=== PATIENT | female | born 1950 | race Caucasian/White ===

== ENCOUNTER 2020-03-15 07:47 | Outpatient (REF) | payer MEDICARE, SELFPAY ==
--- NOTE | 2020-03-15 08:00 | MR_ITS ---
EXAMINATION: MR BRAIN WITHOUT CONTRAST MR CERVICAL SPINE WITHOUT CONTRAST CLINICAL INFORMATION: Facial numbness. Numbness in arms and legs. COMPARISON: Head CT from 02/15/2019. CT cervical spine from 10/03/2015. TECHNIQUE: MRI of the brain and cervical spine was obtained using routine sequences without contrast. FINDINGS: BRAIN: No diffusion abnormalities are identified to suggest an acute or subacute infarct. The ventricles are normal in size. No mass effect or midline shift is seen. Moderate generalized parenchymal volume loss evident. No extra-axial fluid collections are seen. The brainstem and cerebellum are relatively normal. The gradient refocused acquisition is normal. The craniovertebral junction, marrow signal, and midline structures are normal. The major intracranial flow voids at the level of the [place] are preserved. The dural venous sinus flow voids are maintained. The mastoid air cells and paranasal sinuses are well aerated. CERVICAL SPINE: VERTEBRAL BODIES AND PARASPINAL SOFT TISSUES: The marrow signal is within normal limits. There is reduced intradiscal signal at multiple levels due to spondylosis. A rightward curvature of the cervical spine is evident. The patient has had previous multilevel decompressive laminectomies at C3, C4, C5, and C6. 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 T2 hypointense scar tissue present in the operative beds posteriorly. The lung apices are clear. CERVICOMEDULLARY JUNCTION AND VISUALIZED POSTERIOR FOSSA: The craniovertebral junction appears normal. There is mild T2 hyperintense signal change within the cord at the T1-T2 level due to severity of central canal stenosis and cord distortion. No syrinx visible. At the C1-C2 level, there are periarticular synovial cysts in the predental space and retrodental space with surrounding T2 hypointense signal changes, presumably due to chronic ligamentous and degenerative joint disease. SPINAL LEVELS: C2-C3: Left-sided hypertrophic facet arthropathy and mild posterior disc bulge with endplate spurring. No central canal stenosis. Mild left foraminal narrowing. C3-C4: Broad-based disc-osteophyte complex and a shallow right paracentral disc protrusion visible with ventral cord deformity. No central canal stenosis. Decompressive laminectomy. Severe bilateral foraminal narrowing. C4-C5: Decompressive laminectomy with exuberant left-sided facet arthropathy and posterior endplate spurring in conjunction with mild ossification of the posterior longitudinal ligament. [id number] bilateral foraminal narrowing. C5-C6: Ossification of the posterior longitudinal ligament to the left of midline with a decompressive laminectomy. Moderate foraminal encroachment, worse on the left side. C6-C7: Significant ossification of the posterior longitudinal ligament in the midline impressing upon the ventral cord with hypertrophic facet arthropathy and moderate central canal stenosis. Bilateral foraminal encroachment also evident. Mild ventral cord deformity noted. C7-T1: Small central disc protrusion and ossification of the posterior longitudinal ligament with mild central canal stenosis and mild ventral cord deformity. No significant foraminal narrowing. T1-T2: Bulky endplate spurring and ossification of the posterior longitudinal ligament, more so in the right greater than left subarticular regions, also demonstrated on prior imaging with hypertrophic facet arthropathy resulting in severe central canal stenosis and moderate cord deformity. Mild intramedullary signal change may be due to edema and/or myelomalacia. Moderate bilateral foraminal narrowing. MR/MR cervical spine wo con IMPRESSION: BRAIN: No acute intracranial process. Moderate generalized parenchymal volume loss. 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 Moderate central canal stenosis due to degenerative disc disease, facet arthropathy and ossification of the posterior longitudinal ligament at the C6-C7 level. Milder central canal stenosis with similar findings and a small central disc protrusion at C7-T1. Bulky endplate spurring and ossification of the posterior longitudinal ligament at T1-T2 with facet spurring contributing to severe central canal stenosis and moderate cord deformity. Intramedullary signal change may be due to edema and/or myelomalacia. Findings are visible on prior CT imaging from 09/2015 as well.
== END 2020-03-15 07:48 | disposition home or self-care (01) ==
LOC: HO.MRI 07:47
PROVIDERS: PCP Internal Medicine; Visit Provider Psychiatry & Neurology Neurology
DX: R20.0 Anesthesia of skin (principal)
CPT/HCPCS: 70551; 72141

== ENCOUNTER 2020-04-09 02:04 | Emergency (ER) | payer MEDICARE, SELFPAY ==
[2020-04-09 02:09] VITALS: BP 213/87; PULSE 59; RESP 16; TEMP 36.1; O2SAT 100; BMI 38.6
[2020-04-09 02:34] VITALS: BP 181/65; PULSE 61; RESP 18; O2SAT 95
--- NOTE | 2020-04-09 02:43 | ED_ITS ---
History of Present Illness General Chief Complaint: Epistaxis Stated Complaint: Nose Bleed Time Seen by Provider: 04/09/20 02:42 Source: patient Mode of arrival: ambulatory Limitations: no limitations History of Present Illness HPI Narrative: This is a 69-year-old female who presents with acute onset of left naris epistaxis and denies any difficulties with airway maintenance or with swallowing. She states that this is happened before and she is currently on Xarelto for atrial fibrillation and has had prior cauterization on the left side. Patient states that the bleeding has begun to subside and that it started when she was blowing her nose. Otherwise, patient denies any pain, visual disturbance, fevers, chills. Related Data Home Medications Medication Instructions Recorded Confirmed estradiol 10 mcg vaginal tablet 0 mcg VAGINAL 04/04/20 04/04/20 ferrous sulfate 325 mg (65 mg 325 mg PO BID 04/04/20 04/04/20 iron) tablet gabapentin 300 mg capsule 300 mg PO QID 04/04/20 04/04/20 metformin 1,000 mg tablet 0 mg PO 04/04/20 04/04/20 nystatin 100,000 unit/gram topical 1 applic TOPICAL 04/04/20 04/04/20 ointment oxybutynin chloride 15 mg 15 mg PO DAILY 04/04/20 04/04/20 tablet,extended release 24 hr rivaroxaban 20 mg tablet 20 mg PO DAILY 04/04/20 04/04/20 rosuvastatin 40 mg tablet 40 mg PO DAILY 04/04/20 04/04/20 tamsulosin 0.4 mg capsule 0.4 mg PO DAILY 04/04/20 04/04/20 trazodone 50 mg tablet 50 mg PO BEDTIME 04/04/20 04/04/20 Previous Rx's Medication Instructions Recorded dulaglutide 0.75 mg/0.5 mL 0.75 mg SUBCUT QWEEK 30 Days #2.5 02/17/20 subcutaneous pen injector ml furosemide 40 mg tablet 40 mg PO BID 90 Days #180 tab 03/22/20 losartan 50 mg tablet 50 mg PO DAILY 90 Days #90 tab 03/27/20 oxycodone 5 mg tablet 5 mg PO BID PRN #14 tab 03/30/20 omeprazole 40 mg capsule,delayed 40 mg PO DAILY #90 cap 04/07/20 release Allergies Allergy/AdvReac Type Severity Reaction Status Date / Time sulfamethoxazole Allergy Intermediate RASH Verified 04/04/20 11:05 trimethoprim Allergy Intermediate RASH Verified 04/04/20 11:05 cefdinir Allergy Mild hives Verified 04/04/20 11:05 melatonin Allergy Mild inadequate Verified 04/04/20 11:05 response morphine [Morphine] Allergy Mild ITCHING, Verified 04/04/20 11:05 hives Sulfa (Sulfonamide Allergy Mild hives, Verified 04/04/20 11:05 Antibiotics) itching cheese [CHEESE] AdvReac Intermediate NAUSEA & Verified 04/04/20 11:05 VOMITING duloxetine AdvReac Intermediate altered Verified 04/04/20 11:05 behavior betina AdvReac Mild RUNNY NOSE Verified 04/04/20 11:05 mustard AdvReac Mild RUNNY NOSE Verified 04/04/20 11:05 potato [POTATO] AdvReac Mild ITCHY NOSE Verified 04/04/20 11:05 soybean AdvReac Mild RUNNY NOSE Verified 04/04/20 11:05 Review of Systems Review of Systems: Pertinent positives and negatives as stated in HPI 10 point review of systems is otherwise negative. [facility] Past Medical History Source: nursing notes reviewed Medical History Atrial fibrillation Diabetes mellitus Essential hypertension Iron deficiency anemia Lumbar degenerative disc disease Pure hypercholesterolemia Urge urinary incontinence Surgical History History of partial hysterectomy Hx of cardiac cath Hx of cervical spine surgery Family History Family History Father Rectal cancer Hypertension Arthritis of knee CVD (cardiovascular disease) Mother Hypertension CVD (cardiovascular disease) Myocardial infarction Diabetes Social History Social History Alcohol intake: never Smoking Status: Never smoker Use of substances other than those prescribed or required for medical reasons: No Advance Directives: No Advance Directives Information Provided: No Physical Exam Vital Signs: Vital Signs: Last Vital Signs Temp 97 F 04/09/20 02:09 Pulse 61 04/09/20 02:34 Resp 18 04/09/20 02:34 BP 181/65 H 04/09/20 02:34 Pulse Ox 95 04/09/20 02:34 Body Mass Index 38.6 VITAL SIGNS: Reviewed. GENERAL: Well developed, well nourished, in no acute distress. HEAD: Normocephalic/atraumatic, EYES: PERRLA, EOMI intact without pain, no nystagmus/pallor/icterus noted EARS: Ext canals without abnormality, TMs non-bulging and non-erythematous NOSE: Left [place] with stigmata of bleeding, but appears to be hemostatic at present. OROPHARYNX: no oral lesions noted, posterior pharynx clear and non-erythematous without noted tonsillar enlargement/erythema/exudates NECK: Supple, no adenopathy LUNGS: Normal breath sounds. No adventitious sounds or accessory muscle use. SpO2<95> CARDIOVASCULAR: Regular rate and rhythm without noted murmurs, no JVD or lower extremity edema. ABDOMEN: Soft, non-tender, non-distended with bowel sounds. No rigidity. No guarding. No palpable masses or hernias noted MUSCULOSKELETAL: No tenderness, deformities, or effusions noted on gross inspection. EXTREMITIES: No cyanosis, clubbing or edema. SKIN: Inspection of the skin reveals no rashes, ulcerations, jaundice, pallor, or petechiae. NEUROLOGIC: Alert and oriented x 4. Strength and sensation to light touch were grossly intact x 4. Course Course Course Narrative: This is a 69-year-old female with history and clinical presentation consistent with epistaxis secondary to anticoagulation and decrease in environmental humidity as well as increased pressure while blowing nose. Left naris currently hemostatic but will follow with 1 treatment with Afrin and evaluate patient for 20 minutes. If there is no further bleeding patient will be discharged with instructions to follow-up with her primary care provider on Friday morning as well as utilizing intranasal saline 3 to 4 times a day and avoidance of any nose blowing or manipulation. Discharge Plan Discharge Clinical Impression: Epistaxis Patient Disposition: Home, Self-Care Instructions: Nosebleed (ED) Additional Instructions: 1. please continue with all home medications as prescribed. 2. Please purchase [id number] saline nasal spray and utilize 3-4 times daily. May also use limited amount of Vaseline and apply with the tip of the pinky finger to additionally provide mucosal moisture. 3. recommend using a home humidifier for increased humidification at home. The patient and/or family acknowledge understanding of results (as applicable), diagnosis, treatment plan, need for follow up, and symptoms that should prompt a return to the emergency room. Prescriptions: No Action Trulicity 0.75 mg/0.5 mL pen injector 0.75 mg subcut QWEEK 30 Days Qty: 2.5 RF: 6 furosemide 40 mg tablet 40 mg PO BID 90 Days Qty: 180 RF: 1 losartan 50 mg tablet 50 mg PO DAILY 90 Days Qty: 90 RF: 3 oxycodone 5 mg tablet 5 mg PO BID PRN (Reason: pain) Qty: 14 RF: 0 omeprazole 40 mg capsule,delayed release(DR/EC) 40 mg PO DAILY Qty: 90 RF: 1 nystatin 100,000 unit/gram ointment 1 applic topical RF: 0 rosuvastatin 40 mg tablet 40 mg PO DAILY RF: 0 estradiol 10 mcg tablet 0 mcg vaginal RF: 0 ferrous sulfate 325 mg (65 mg iron) tablet 325 mg PO BID RF: 0 gabapentin 300 mg capsule 300 mg PO QID RF: 0 metformin 1,000 mg tablet 0 mg PO RF: 0 tamsulosin 0.4 mg capsule 0.4 mg PO DAILY RF: 0 oxybutynin chloride 15 mg tablet extended release 24hr 15 mg PO DAILY RF: 0 trazodone 50 mg tablet 50 mg PO BEDTIME RF: 0 Xarelto 20 mg tablet 20 mg PO DAILY RF: 0 Referrals: Marla Henderson MD [Primary Care Provider] - 2 days ( Re-evaluation after episode of epistaxis in the left nare)
[2020-04-09] MEDS: Oxymetazoline HCl 0.05 % Nasal 15 ML SPRAY 1 SPRAY NOSTRIL-L (02:51)
--- NOTE | 2020-04-09 03:16 | PC.NURSE ---
pt ambulated with steady gait to bathroom.
== END 2020-04-09 03:39 | disposition home or self-care (01) ==
PROVIDERS: Emergency Provider Student in an Organized Health Care Education/Training Program; PCP Internal Medicine
DX: R04.0 Epistaxis (principal); Z79.899 Other long term (current) drug therapy; Z79.01 Long term (current) use of anticoagulants
CPT/HCPCS: 99284

== ENCOUNTER 2020-04-11 10:26 | Outpatient (REF) | payer MEDICARE, SELFPAY ==
[2020-04-11 12:37] LABS: Thyroid Stimulating Hormone 1.66 uIU/mL (0.32-4.0)
[2020-04-12 08:56] LABS: Syphilis Screen Nonreactive (Nonreactive)
[2020-04-14 06:12] LABS: IgA 87 mg/dL (70-320); IgG 719 mg/dL (600-1540); IgM 44 mg/dL (50-300)
[2020-04-15 21:08] LABS: Acetylcholine Receptor Binding <0.30 nmol/L
== END 2020-04-11 10:27 | disposition home or self-care (01) ==
LOC: HO.LAB 10:26
PROVIDERS: PCP Internal Medicine; Visit Provider Psychiatry & Neurology Neurology
DX: R20.0 Anesthesia of skin (principal); R53.1 Weakness
CPT/HCPCS: 36415; 82550; 82784; 83519; 84443; 86334; 86780

== ENCOUNTER 2020-04-26 11:12 | Outpatient (REF) | payer MEDICARE, SELFPAY ==
--- NOTE | 2020-04-26 | US_ITS ---
EXAMINATION: US EXTRACRANIAL CAROTID DUPLEX, BILATERAL CLINICAL INFORMATION: CVA, numbness. COMPARISON: None. TECHNIQUE: Real-time ultrasound and Doppler techniques (integrating B-mode 2-D vascular images, Doppler spectral analysis and color-flow Doppler imaging) were utilized to interrogate the extracranial carotid arteries, the vertebral arteries and proximal subclavian arteries bilaterally. The degree of stenosis is determined by criteria similar to NASCET. FINDINGS: Right Side: 1. There is hard atherosclerotic plaque seen in the bifurcation/proximal ICA region. 2. The common carotid artery PSV proximally is 81 cm/s and distally 52 cm/s. 3. The proximal internal carotid artery velocities are 181 cm/s systolic and 35 cm/s diastolic. 4. The proximal external carotid artery PSV is 98 cm/s. 5. The vertebral artery shows antegrade flow. 6. The subclavian artery waveforms are normal. Incidental finding of a hypoechoic echoic nodule in the right thyroid lobe lower pole measuring 2.3 x 1.8 x 1.6 cm. Left Side: 1. There is hard atherosclerotic plaque seen in the bifurcation/proximal ICA region. 2. The common carotid artery PSV proximally is 84 cm/s and distally 61 cm/s. 3. The proximal internal carotid artery velocities are 54 cm/s systolic and 15 cm/s diastolic. 4. The proximal external carotid artery is occluded. 5. The vertebral artery shows antegrade flow. 6. The subclavian artery waveforms are normal. US/US carotid duplex BI IMPRESSION: 1. RIGHT: There is significant hard plaque in common carotid bulb and ICA origin. The peak systolic velocity is elevated in the proximal ICA measuring 181 cm/second. No flow is identified in the mid and distal ICA suggestive of occlusion of ICA origin. Consider CTA for further evaluation. 2. LEFT: No hemodynamically significant stenosis seen in the left carotid artery. 3. Normal antegrade flow seen in both vertebral arteries. 4. Incidental finding of a right lower pole thyroid nodule.
== END 2020-04-26 11:13 | disposition home or self-care (01) ==
LOC: HO.US 11:12
PROVIDERS: PCP Internal Medicine; Visit Provider Psychiatry & Neurology Neurology
DX: G45.9 Transient cerebral ischemic attack, unspecified (principal); R20.0 Anesthesia of skin
CPT/HCPCS: 93880

== ENCOUNTER → 2020-05-09 10:58 | Outpatient (BNVA) | payer MEDICARE, SELFPAY | PROVIDERS: PCP Internal Medicine; Visit Provider Urology | DX: N32.81 Overactive bladder (principal); N39.46 Mixed incontinence | CPT/HCPCS: Q3014 ==

== ENCOUNTER 2020-07-11 18:36 | Inpatient (IN) | payer MEDICARE, SELFPAY ==
--- NOTE | ~2020-07-11 | CT_ITS ---
EXAMINATION: CT ANGIOGRAM HEAD AND NECK CLINICAL INFORMATION: Left lower extremity weakness COMPARISON: MRI brain dated 03/15/2020 TECHNIQUE: Test bolus sequences followed by intravenous administration 70 mL of Omnipaque 350 intravenous contrast. Helical imaging was performed in the axial plane from the mediastinum to the skull vertex. Delayed postcontrast imaging of the head was also performed. The data was processed at the pharmacy technologist's workstation for generation of MIP sequences. Three-dimensional volume rendered reformatted images were also generated at an offline 3-D workstation. This CT examination was performed using dose optimization techniques as appropriate, variously including the following: *Automated exposure control *Adjustment of mA and/or kV according to patient size (this includes techniques or standardized protocols for targeted exams where dose is matched to indication/reason for exam; i.e. extremities or head) *Use of iterative reconstruction technique The degree of stenosis determined by NASCET criteria. DLP: 2286 mGy-cm FINDINGS: SOFT TISSUES AND LUNG APICES: No overt abnormality is appreciated. CTA NECK: Assessment limited by suboptimal contrast bolus timing. The aortic arch has a classic configuration and the major arch vessel origins are non-stenotic. The vertebral arteries are co-dominant and both vertebral origins are widely patent. Both common carotid arteries are normal in course and caliber. Both internal carotid arteries demonstrate atherosclerotic plaque at their origins, worse on the left where there is approximately 50% luminal narrowing. CTA HEAD: There is normal opacification of the major intracranial vessels. No acute proximal large vessel occlusion, focal flow-limiting stenosis, or saccular intracranial aneurysm is identified. No abnormal parenchymal enhancement or regional oligemia is visualized. HEAD (delayed): No intracranial mass, intercerebral edema, hemorrhage, or midline shift is evident. The ventricles and sulci are stable in size and configuration. No extra-axial collections are appreciated. No pathologic intracranial enhancement. Dural sinuses are patent. The paranasal sinuses are well-aerated and clear. Hyperostosis frontalis. CT/CT angio head neck IMPRESSION: CTA NECK: Mild stenosis at the origin of the LEFT proximal internal carotid artery approximately 50%. Otherwise, no hemodynamically significant stenosis within the extracranial arterial vasculature. No dissection. CTA HEAD: No large vessel occlusion or hemodynamically significant stenosis within the intracranial arterial vasculature.
--- NOTE | ~2020-07-11 | XR_ITS ---
EXAMINATION: XR CHEST CLINICAL INFORMATION: Chest pain COMPARISON: 02/15/2019 TECHNIQUE: Frontal view of the chest was obtained. FINDINGS: Normal symmetric lung volumes. No parenchymal consolidation. No pleural effusion. No pneumothorax. Cardiomediastinal silhouette and pulmonary vascularity are within normal limits. No acute osseous abnormalities. XR/XR chest 1V IMPRESSION: No acute findings.
--- NOTE | ~2020-07-11 | US_ITS ---
EXAMINATION: US VENOUS ULTRASOUND WITH DOPPLER LOWER EXTREMITY, RIGHT CLINICAL INFORMATION: Swelling COMPARISON: None TECHNIQUE: Ultrasound of the deep veins is performed from the hip to the calf with compression sonography and color and pulse Doppler assessment. Spectral analysis with color-flow imaging is performed. FINDINGS: There is normal venous compression and respiratory variation and augmented flow. The visualized common femoral vein, superficial femoral vein, profunda femoral vein, popliteal vein, and the trifurcation region shows no evidence of deep venous thrombosis. There is no significant popliteal fossa cyst. If the patient's symptoms persist, followup ultrasound in 5 days 7 days might be of value to exclude proximal propagation from a non-visualized calf vein. US/US venous duplex LE RT IMPRESSION: No DVT demonstrated in the right lower extremity.
[2020-07-11 18:45] VITALS: BP 228/83; PULSE 69; RESP 20; TEMP 36.4; O2SAT 98; BMI 36.8
--- NOTE | 2020-07-11 19:50 | ED_ITS ---
HPI - General Adult General Chief complaint: General Medical Stated complaint: High blood pressure Source: patient Mode of arrival: ambulatory Limitations: no limitations History of Present Illness HPI narrative: 70-year-old female with past medical history of CVA on June 06, 2020, AFib on Xarelto, diabetes type 2 non-insulin dependent, hypertension, iron deficiency anemia, lumbar disc degeneration, hypercholesterolemia, coronary artery disease, CHF with preserved ejection fraction, CKD, discharge from [facility] on 06/28/2020 presents the emergency department with elevated blood pressure, left-sided chest pain, headache, dizziness, swelling to the right lower extremity, and medication concerns. She does not report any abdominal pain, abdominal distention, dysuria, hematuria, constipation, di arrhea, melena, hematochezia, or any other concerning symptoms. Onset (ago): day(s) (3) Location: head, chest, right and lower extremity Severity: moderate Quality: aching Pain Consistency: constant Relieving factors: none Associated symptoms: chest pain and headaches Related Data Home Medications Medication Instructions Recorded Confirmed acetaminophen [Tylenol] 975 mg PO Q8-10H PRN 07/12/20 07/12/20 atenolol 50 mg PO DAILY 07/12/20 07/12/20 baclofen 5 mg PO TID 07/12/20 07/12/20 cholecalciferol (vitamin D3) 07/12/20 citalopram [Celexa] 10 mg PO DAILY 07/12/20 07/12/20 cyanocobalamin (vitamin B-12) mcg 07/12/20 docusate sodium [Colace] 50 mg PO BID 07/12/20 07/12/20 dulaglutide [Trulicity] 0.75 mg SUBCUT QWEEK 07/12/20 07/12/20 ferrous sulfate mg 07/12/20 gabapentin 400 mg PO TID 07/12/20 07/12/20 hydroxychloroquine [Plaquenil] 200 mg PO BID 07/12/20 07/12/20 insulin glargine [Lantus U-100 10 unit SUBCUT QPM 07/12/20 07/12/20 Insulin] losartan 100 mg PO DAILY 07/12/20 07/12/20 metformin 1,000 mg PO BID 07/12/20 07/12/20 oxybutynin chloride 5 mg PO BEDTIME 07/12/20 07/12/20 rivaroxaban [Xarelto] 20 mg PO QPM 07/12/20 07/12/20 rosuvastatin [Crestor] 40 mg PO DAILY 07/12/20 07/12/20 sennosides [senna] 8.6 mg PO BEDTIME 07/12/20 07/12/20 thiamine HCl (vitamin B1) 100 mg PO DAILY 07/12/20 07/12/20 trazodone 50 mg PO BEDTIME 07/12/20 07/12/20 Allergies Allergy/AdvReac Type Severity Reaction Status Date / Time sulfamethoxazole Allergy Intermediate RASH Verified 05/09/20 11:00 trimethoprim Allergy Intermediate RASH Verified 05/09/20 11:00 cefdinir Allergy Mild hives Verified 05/09/20 11:00 melatonin Allergy Mild inadequate Verified 05/09/20 11:00 response morphine [Morphine] Allergy Mild ITCHING, Verified 05/09/20 11:00 hives Sulfa (Sulfonamide Allergy Mild hives, Verified 05/09/20 11:00 Antibiotics) itching cheese [CHEESE] AdvReac Intermediate NAUSEA & Verified 05/09/20 11:00 VOMITING duloxetine AdvReac Intermediate altered Verified 05/09/20 11:00 behavior betina AdvReac Mild RUNNY NOSE Verified 05/09/20 11:00 mustard AdvReac Mild RUNNY NOSE Verified 04/04/20 11:05 potato [POTATO] AdvReac Mild ITCHY NOSE Verified 04/04/20 11:05 soybean AdvReac Mild RUNNY NOSE Verified 04/04/20 11:05 Review of Systems Review of Systems: Constitutional: Positive headache, positive dizziness, No Weight loss, No Fever, No Chills, No Night Sweats, No Fatigue, No Malaise ENT/Mouth: No Hearing loss, No Ear Pain, No Nasal Congestion, No Sinus Pain, No change in voice, No sore throat, No Rhinorrhea, No Swallowing Difficulty Eyes: No Eye Pain, No Swelling, No Redness, No Vision Changes Cardiovascular: Positive left-sided Chest Pain, positive right lower extremity edema, no SOB, no Dyspnea on Exertion, No Orthopnea, No Palpitations Respiratory: No Cough, No Sputum, No Wheezing, No Smoke Exposure, No Dyspnea Gastrointestinal: No Nausea, No Vomiting, No Diarrhea, No abdominal Pain, No Hematochezia, No Melena Genitourinary: No irregular bleeding, No Dysuria, No Urinary Frequency, No Hematuria, No Urinary Incontinence, No Urgency, No Flank Pain, No Urinary Flow Changes, No Hesitancy Musculoskeletal: No joint pain, No Myalgias, No Joint Swelling Skin: No Skin Lesions, No rash Neuro: No Weakness, No Numbness, No Paresthesias, No Loss of Consciousness Psych: No Anxiety/Panic, No Depression, No SI/HI/AH/VH Heme/Lymph: No Bruising, No Bleeding,No Lymphadenopathy Endocrine: No Polyuria, No Polydipsia, No Temperature Intolerance Yes all other systems are reviewed and are negative [facility] Past Medical History Attestation statement: The following information was validated with the patient. Source: old records reviewed Medical History Atrial fibrillation Diabetes mellitus Essential hypertension Hospital discharge follow-up Iron deficiency anemia Lumbar degenerative disc disease Pure hypercholesterolemia Thrombus Urge urinary incontinence Surgical History History of partial hysterectomy Hx of cardiac cath Hx of cervical spine surgery Family History Family History Father Rectal cancer Hypertension Arthritis of knee CVD (cardiovascular disease) Mother Hypertension CVD (cardiovascular disease) Myocardial infarction Diabetes Social History Social History Alcohol intake: never Smoking Status: Never smoker Smoked in Last 30 Days: No Any prior treatment program specific to substance use: No Advance Directives: No Advance Directives Information Provided: No Physical Exam Vital Signs: Vital Signs: Last Vital Signs Temp 98.0 F 07/11/20 23:41 Pulse 64 07/11/20 23:41 Resp 13 07/11/20 23:41 BP 204/76 H 07/11/20 23:41 Pulse Ox 94 07/11/20 23:41 Body Mass Index 36.8 Appearance: Alert. Oriented X3. No acute distress. Head: Normal external exam. Normocephalic. Atraumatic. No Lala signs noted. No raccoon eyes noted Eyes: PERRLA. EOMI. Conjunctiva and sclera normal. Eyelids normal. ENT: TM's Normal. Pharynx normal. Uvula midline. Moist mucous membranes. No trismus noted. No drooling noted. No muffled voice noted. Neck: Normal inspection. Neck supple. No adenopathy. No meningeal signs. No neck mass noted. CVS: Normal heart rate and rhythm. Heart sound normal. No murmurs noted. Pulses equal to all extremities. Respiratory: No respiratory distress. Painless inspiration. Lung sounds clear to auscultation all lobes. Chest tender to palpation on the left side. No accessory muscle usage noted or decreased air movement noted. Abdomen: Soft and nontender. Bowel sounds normal in all 4 quadrants. No distention noted. No organomegaly noted. No visible injury noted. Back: No CVA tenderness. Full range of motion noted. Skin: Skin warm and dry. Normal skin color. Normal skin turgor. No rashes/lesions/lacerations noted. Extremities: Right lower extremity edema +2 pitting to the mid jaffe, strength 3/5 to the right lower extremity all other extremities 5/5 strength. Extremit ies nontender. Neuro: cranial nerves 2-12 intact, NIH Stroke Scale Internal: Initial- Upon Arrival Level of Consciousness: Alert Level of Consciousness Questions: Answers both questions correctly Level of Consciousness Commands: Performs both tasks correctly Best Gaze: Normal Visual: No visual loss Facial Palsy: Normal Motor Arm (Right): No drift Motor Arm (Left): No drift Motor Leg (Right): No drift Motor Leg (Left): Some effort against gravity Limb Ataxia: Absent Sensory: Normal Best Language: No aphasia Dysarthia: Normal Extinction and Inattention: No abnormality Score: 2 Course Course Course Narrative: 70-year-old female with past medical history of CVA on June 06, 2020, AFib on Xarelto, diabetes type 2 non-insulin dependent, hypertension, iron deficiency anemia, lumbar disc degeneration, hypercholesterolemia, coronary artery disease, CHF with preserved ejection fraction, CKD 3, pulmonary hypertension, obstructive sleep apnea on CPAP, discharge from [facility] on 06/28/2020 presents the emergency department with elevated blood pressure, left-sided chest pain, headache, dizziness, swelling to the right lower extremity, and medication concerns. Patient was discharged from rehab facility on 06/28/2020. Request for [facility] records are pending. Based on patient's presentation, NIH stroke scale of 2 I am not sure if this is residual from her CVA on June 06, we will order CTA of head and neck, venous duplex to the right lower extremity to rule out DVT secondary to edema, BNP to rule out CHF exacerbation. Patient has not been taking her Lasix since [facility], which could be the most likely reason for her edema, elevated blood pressure. CBC indicates elevated platelets at 411, BUN 20 which is an improvement from prior values which have been as high as 49 with troponin of 10.8 troponin leak could possibly be that patient does have CKD and AFib, BNP elevated at 453 which is considerably higher than her value at 197 on 07/2018. Venous duplex is negative, chest x-ray negative. EKG is normal sinus, no indication of ST elevation or depression. Order for Lasix 20 mg IV. 10:31 p.m. patient returned from CT scans, stated that she feels nauseous. Order for Zofran. CT of head neck are negative for acute findings requiring emergent intervention. Discussion with hospitalist regarding admission. Review of records from [facility] inpatient services show that patient does have an appointment with Dr. Paula Fuentes on 07/12 at 2:00 p.m., and 08/02 9:45 a.m.. Has an appointment with on 08/21 at 1:15 p.m. and needs an echocardiogram prior to that visit. 1:10 a.m. records from [facility] obtained. Patient presented on 06/03/2020 status post fall, noted to be hyponatremic, pulmonary hypertension, mild CARLEE, and noted to have right-sided weakness. NIH stroke scale 8 at that time. CTH nonacute, CTA with LICA stenosis and LM 1 occlusion. dairy lab technician was successful with thrombectomy with TICI 3 and admitted to the ICU for monitoring. CTA of head neck on 06/03/2020 impression 1 occlusion of the M1 segment of the left middle cerebral artery A2 occlusion of the proximal anterior division left M2 MCA with more distal reconstitution probable occlusion of a more distal left MCA branch within the left sylvian fissure with reconstitution of this branch 3 subtle hypodensity of the posterior left lentiform nucleus and left insula compatible with the acute ischemic change for severe arthrosclerotic changes of the distal right common carotid artery and the proximal right ICA. There is at least moderate to moderate severe stenosis of the distal right common carotid artery and severe stenosis of the proximal right internal carotid artery. Five arthrosclerotic changes to the left common carotid and proximal extracranial left internal carotid artery. Six right-sided pleural effusion nonspecific ground-glass opacity the visualized lungs. On page 21/119 description of echocardiogram indicates estimated pulmonary pressures at 85 mmHg with right ventricular dysfunction and mild tricuspid regurgitation. Clinically does not have decompensated heart failure, on anticoagulation for paroxysmal AFib. Patient was discharged on 06/06/2020 and sent for rehab. Discharged from rehab on 06/28/2020 Medical Decision Making Differential Diagnosis Differential Diagnosis: CHF exacerbation, CVA, ACS Medical Records Medical records reviewed: Yes I reviewed the patient's medical records. Lab Data Lab results reviewed: Yes I reviewed the patient's lab results. Result diagrams: 07/11/20 21:28 07/11/20 21:28 Labs: Lab Results 07/11/20 07/11/20 07/11/20 Range/Units 21:28 21:28 21:28 WBC 9.3 (4.8-10.8) X10*3/uL RBC 4.66 (4.20-5.50) X10*6/uL Hgb 12.8 (12.0-16.0) g/dl Hct 40.4 (37-47) % MCV 86.7 (80-98) fL MCH 27.5 (27.0-33.0) pg MCHC 31.7 (31.0-35.0) g/dl RDW 17.0 H (11.0-16.0) % Plt Count 411 H (160-400) X10*3/uL MPV 8.7 L (9.4-12.3) fL Immature Gran % (Auto) 0.2 (0.0-0.4) % Neut % (Auto) 60.1 (45-73) % Lymph % (Auto) 26.0 (20-40) % Carver % (Auto) 8.5 (2-11) % Eos % (Auto) 3.9 (0-4) % Baso % (Auto) 1.3 (0-2) % Lymph # (Auto) 2.4 (1.2-4.9) X10*3/uL Carver # (Auto) 0.8 (0.1-1.2) X10*3/uL Eos # (Auto) 0.4 (0.0-0.4) X10*3/uL Baso # (Auto) 0.1 (0.0-0.2) X10*3/uL Abs Immat Gran (auto) 0.02 (0.00-0.03) X10*3/uL Absolute Neuts (auto) 5.6 (2.0-8.3) X10*3/uL Absolute Nucleated RBC 0.000 (0.0-0.012) X10*3/uL Nucleated RBC % (auto) 0.0 (0.0-0.2) /100WBC PT 11.3 (10.8-13.0) SEC INR 1.0 (0.9-1.1) APTT 42.9 H (24.1-38.0) SEC Sodium 138 (135-145) mmol/L Potassium 4.8 (3.3-5.1) mmol/L Chloride 106 (96-108) mmol/L Carbon Dioxide 22 (22-29) mmol/L Anion Gap 15 (12-20) BUN 20 H (9-16) mg/dL Creatinine 0.69 (0.5-1.4) mg/dL Estim Creat Clear Calc 80.4 Estimated GFR > 60 Random Glucose 110 (60-115) mg/dL Calcium 9.5 (8.4-10.2) mg/dL Magnesium 2.2 (1.6-2.6) mg/dL Total Bilirubin 0.5 (0.0-1.0) mg/dL Direct Bilirubin < 0.2 (0.0-0.5) mg/dL AST 29 (5-31) U/L ALT 28 (0-31) U/L Alkaline Phosphatase 89 (39-117) U/L Troponin I High Sens (<3.5-17.0) ng/L B-Natriuretic Peptide (<100) pg/mL Total Protein 7.5 (6.5-8.0) g/dL Albumin 4.3 (3.5-5.0) g/dL Lipase 90 H (8-78) U/L 07/11/20 07/11/20 Range/Units 21:28 21:28 WBC (4.8-10.8) X10*3/uL RBC (4.20-5.50) X10*6/uL Hgb (12.0-16.0) g/dl Hct (37-47) % MCV (80-98) fL MCH (27.0-33.0) pg MCHC (31.0-35.0) g/dl RDW (11.0-16.0) % Plt Count (160-400) X10*3/uL MPV (9.4-12.3) fL Immature Gran % (Auto) (0.0-0.4) % Neut % (Auto) (45-73) % Lymph % (Auto) (20-40) % Carver % (Auto) (2-11) % Eos % (Auto) (0-4) % Baso % (Auto) (0-2) % Lymph # (Auto) (1.2-4.9) X10*3/uL Carver # (Auto) (0.1-1.2) X10*3/uL Eos # (Auto) (0.0-0.4) X10*3/uL Baso # (Auto) (0.0-0.2) X10*3/uL Abs Immat Gran (auto) (0.00-0.03) X10*3/uL Absolute Neuts (auto) (2.0-8.3) X10*3/uL Absolute Nucleated RBC (0.0-0.012) X10*3/uL Nucleated RBC % (auto) (0.0-0.2) /100WBC PT (10.8-13.0) SEC INR (0.9-1.1) APTT (24.1-38.0) SEC Sodium (135-145) mmol/L Potassium (3.3-5.1) mmol/L Chloride (96-108) mmol/L Carbon Dioxide (22-29) mmol/L Anion Gap (12-20) BUN (9-16) mg/dL Creatinine (0.5-1.4) mg/dL Estim Creat Clear Calc Estimated GFR Random Glucose (60-115) mg/dL Calcium (8.4-10.2) mg/dL Magnesium (1.6-2.6) mg/dL Total Bilirubin (0.0-1.0) mg/dL Direct Bilirubin (0.0-0.5) mg/dL AST (5-31) U/L ALT (0-31) U/L Alkaline Phosphatase (39-117) U/L Troponin I High Sens 10.8 (<3.5-17.0) ng/L B-Natriuretic Peptide 453 H (<100) pg/mL Total Protein (6.5-8.0) g/dL Albumin (3.5-5.0) g/dL Lipase (8-78) U/L Imaging Data Right lower extremity duplex: Attestation: I personally reviewed and interpreted this imaging study as follows: Radiologist's impression: EXAMINATION: US VENOUS ULTRASOUND WITH DOPPLER LOWER EXTREMITY, RIGHT CLINICAL INFORMATION: Swelling COMPARISON: None TECHNIQUE: Ultrasound of the deep veins is performed from the hip to the calf with compression sonography and color and pulse Doppler assessment. Spectral analysis with color-flow imaging is performed. FINDINGS: There is normal venous compression and respiratory variation and augmented flow. The visualized common femoral vein, superficial femoral vein, profunda femoral vein, popliteal vein, and the trifurcation region shows no evidence of deep venous thrombosis. There is no significant popliteal fossa cyst. If the patient's symptoms persist, followup ultrasound in 5 days 7 days might be of value to exclude proximal propagation from a non-visualized calf vein. US/US venous duplex LE RT IMPRESSION: No DVT demonstrated in the right lower extremity. CTA head and neck: Attestation: I personally reviewed and interpreted this imaging study as follows: Radiologist's impression: EXAMINATION: CT ANGIOGRAM HEAD AND NECK CLINICAL INFORMATION: Left lower extremity weakness COMPARISON: MRI brain dated 03/15/2020 TECHNIQUE: Test bolus sequences followed by intravenous administration 70 mL of Omnipaque 350 intravenous contrast. Helical imaging was performed in the axial plane from the mediastinum to the skull vertex. Delayed postcontrast imaging of the head was also performed. The data was processed at the supervisor microbiology technologists's workstation for generation of MIP sequences. Three-dimensional volume rendered reformatted images were also generated at an offline 3-D workstation. This CT examination was performed using dose optimization techniques as appropriate, variously including the following: *Automated exposure control *Adjustment of mA and/or kV according to patient size (this includes techniques or standardized protocols for targeted exams where dose is matched to indication/reason for exam; i.e. extremities or head) *Use of iterative reconstruction technique The degree of stenosis determined by NASCET criteria. DLP: 2286 mGy-cm FINDINGS: SOFT TISSUES AND LUNG APICES: No overt abnormality is appreciated. CTA NECK: Assessment limited by suboptimal contrast bolus timing. The aortic arch has a classic configuration and the major arch vessel origins are non-stenotic. The vertebral arteries are co-dominant and both vertebral origins are widely patent. Both common carotid arteries are normal in course and caliber. Both internal carotid arteries demonstrate atherosclerotic plaque at their origins, worse on the left where there is approximately 50% luminal narrowing. CTA HEAD: There is normal opacification of the major intracranial vessels. No acute proximal large vessel occlusion, focal flow-limiting stenosis, or saccular intracranial aneurysm is identified. No abnormal parenchymal enhancement or regional oligemia is visualized. HEAD (delayed): No intracranial mass, intercerebral edema, hemorrhage, or midline shift is evident. The ventricles and sulci are stable in size and configuration. No extra-axial collections are appreciated. No pathologic intracranial enhancement. Dural sinuses are patent. The paranasal sinuses are well-aerated and clear. Hyperostosis frontalis. CT/CT angio head neck IMPRESSION: CTA NECK: Mild stenosis at the origin of the LEFT proximal internal carotid artery approximately 50%. Otherwise, no hemodynamically significant stenosis within the extracranial arterial vasculature. No dissection. CTA HEAD: No large vessel occlusion or hemodynamically significant stenosis within the intracranial arterial vasculature. Chest x-ray: Attestation: I personally reviewed and interpreted this imaging study as follows: Radiologist's impression: EXAMINATION: XR CHEST CLINICAL INFORMATION: Chest pain COMPARISON: 02/15/2019 TECHNIQUE: Frontal view of the chest was obtained. FINDINGS: Normal symmetric lung volumes. No parenchymal consolidation. No pleural effusion. No pneumothorax. Cardiomediastinal silhouette and pulmonary vascularity are within normal limits. No acute osseous abnormalities. XR/XR chest 1V IMPRESSION: No acute findings. ECG Data Attestation: I personally reviewed and interpreted this ECG as follows: Prior ECG tracings: not available for review Interpretation: Ventricular rate 61 beats per minute, DE interval 192, QRS 114, QT 422, QTC 424, normal sinus rhythm, no indication of ST depression or elevation, prior EKGs unavailable secondary to system 130 error Date 07/11/2020 time 6:51 p.m. Critical Care Time Critical Care Time Critical Care Time: Yes Total Critical Care Time: 65 Attestation: I have personally provided critical care time exclusive of time spent on separately billable procedures. Time includes review of laboratory data, radiology results, discussion with consultants, and monitoring for potential decompensation. Interventions were performed as documented. Discharge Plan Discharge Clinical Impression: CHF exacerbation Qualifiers: Heart failure type: systolic Qualified Code(s): I50.23 - Acute on chronic systolic (congestive) heart failure Patient Disposition: Admitted As Inpatient
[2020-07-11 19:56] VITALS: BP 176/101; PULSE 69; RESP 16; TEMP 36.4; O2SAT 97
--- NOTE | 2020-07-11 20:35 | ECG_ITS ---
Test Reason : HIGH BLOOD PRESSURE Blood Pressure : / mmHG Vent. Rate : 061 BPM Atrial Rate : 061 BPM P-R Int : 192 ms QRS Dur : 114 ms QT Int : 422 ms P-R-T Axes : 022 006 029 degrees QTc Int : 424 ms Normal sinus rhythm Normal ECG When compared with ECG of 15-FEB-2019 13:50, No significant change was found Referred By: Analia Rankin Electronically Signed By:KEAGAN MONACO
[2020-07-11 20:48] VITALS: BP 171/100
[2020-07-11 21:36] LABS: MANUAL DIFF FLAG NO
[2020-07-11 21:38] LABS: Basophils Absolute Auto 0.1 X10*3/uL (0.0-0.2); Basophils Percent Auto 1.3 % (0-2); Eosinophils Absolute Auto 0.4 X10*3/uL (0.0-0.4); Eosinophils Percent Auto 3.9 % (0-4); Hematocrit 40.4 % (37-47); Hemoglobin 12.8 g/dl (12.0-16.0); Imm Gran Abs Auto 0.02 X10*3/uL (0.00-0.03); Imm Gran Pct Auto 0.2 % (0.0-0.4); Lymphocytes Absolute Auto 2.4 X10*3/uL (1.2-4.9); Mean Corpuscular HGB Conc 31.7 g/dl (31.0-35.0); Mean Corpuscular Hemoglobin 27.5 pg (27.0-33.0); Mean Corpuscular Volume 86.7 fL (80-98); Mean Platelet Volume 8.7 fL (9.4-12.3); Monocytes Absolute Auto 0.8 X10*3/uL (0.1-1.2); Monocytes Percent Auto 8.5 % (2-11); Neutrophils Absolute Auto 5.6 X10*3/uL (2.0-8.3); Neutrophils Percent Auto 60.1 % (45-73); Platelet Count 411 X10*3/uL (160-400); Red Blood Count 4.66 X10*6/uL (4.20-5.50); White Blood Count 9.3 X10*3/uL (4.8-10.8)
[2020-07-11 21:43] LABS: Prothrombin Time 11.3 SEC (10.8-13.0)
[2020-07-11 21:46] LABS: Partial Thromboplastin Time 42.9 SEC (24.1-38.0)
[2020-07-11 21:59] VITALS: BP 193/62; PULSE 67; RESP 16; O2SAT 98
[2020-07-11 22:02] LABS: Troponin-I High Sensitivity 10.8 ng/L (<3.5-17.0)
[2020-07-11 22:03] LABS: B Type Natriuretic Peptide 453 pg/mL (<100)
[2020-07-11 22:05] LABS: Alanine Aminotransferase 28 U/L (0-31); Albumin Level 4.3 g/dL (3.5-5.0); Alkaline Phosphatase 89 U/L (39-117); Anion Gap 15 (12-20); Aspartate Amino Transferase 29 U/L (5-31); Bilirubin Direct < 0.2 mg/dL (0.0-0.5); Bilirubin Total 0.5 mg/dL (0.0-1.0); Blood Urea Nitrogen 20 mg/dL (9-16); Calcium 9.5 mg/dL (8.4-10.2); Carbon Dioxide 22 mmol/L (22-29); Chloride 106 mmol/L (96-108); Creatinine Clr Calc Pharmacy 80.4; Estimated Glomerular Filt Rate > 60; Glucose Random 110 mg/dL (60-115); Magnesium 2.2 mg/dL (1.6-2.6); Potassium 4.8 mmol/L (3.3-5.1); Sodium 138 mmol/L (135-145); Total Protein 7.5 g/dL (6.5-8.0)
[2020-07-11 22:17] LABS: Lipase 90 U/L (8-78)
[2020-07-11 22:39] VITALS: BP 208/61; PULSE 66; RESP 16; O2SAT 98
[2020-07-11] MEDS: iohexoL 350 MG/ML 100 ML INFUS..BTL IV (22:50)
[2020-07-11] MEDS: ondansetron HCL 4 MG/2 ML VIAL IVPUSH (23:03)
[2020-07-11] MEDS: Furosemide 20 MG/2 ML VIAL IVPUSH (23:03)
[2020-07-11 23:41] VITALS: BP 204/76; PULSE 64; RESP 13; TEMP 36.7; O2SAT 94
--- NOTE | 2020-07-11 23:43 | PC.NURSE ---
GARRETT MENDOZA AWARE OF PATIENT HIGH BLOOD PRESSURE .
[2020-07-12] VITALS (13 sets, daily range): BP systolic 116–204; BP diastolic 43–90; PULSE 61–98; RESP 16–20; TEMP 36.1–36.8; O2SAT 95–98; BMI 37.5
--- NOTE | 2020-07-12 00:17 | P.HPHOSP_ITS ---
History of Present Illness Date of Service: 07/12/20 Chief Complaint: High blood pressure 70-year-old female with a past medical history of hypertension, hyperlipidemia, diabetes, coronary artery disease, AFib on Xarelto, CKD, CHF, insomnia, sleep apnea, anxiety, depression, pulmonary hypertension, 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 from May of 2020-discharged from rehab about 3 days ago presented to the hospital today with a chief complaint of high blood pressure. Patient mentioned that he had a visiting nurses came in today and noted her blood pressure was elevated and subsequently sent to the ER for further evaluation. Patient mentioned that she noted mild dizziness. Also had headaches. Denies any numbness tingling. Mention that at the time of the discharge from the rehab she was taken off her Lasix and now complains of by lateral leg swelling. Patient reports that she still has mild weakness on the right side from the stroke and also mild aphasia. Denies any fever chills cough. Denies any recent travel sick contacts. Denies any chest pain palpitations. Review of all other systems is negative except mentioned above ER course: Per ER team patient noted to have mild swelling on the right lower extremity than the left, duplex was negative. CT head and neck showed showed 50% stenosis of the left parotid. No acute findings on the CT head. Noted to have blood pressure elevated to 200. Continued home medications. Admitted to the hospital for further management. [facility] Medical History (Updated 07/13/20 @ 11:06 by Genaro Sweet MD) Atherosclerotic cardiovascular disease Atrial fibrillation Diabetes mellitus Essential hypertension Hospital discharge follow-up Iron deficiency anemia Ischemic stroke Lumbar degenerative disc disease Paroxysmal atrial fibrillation Pulmonary hypertension Pure hypercholesterolemia Thrombus Urge urinary incontinence Family History Father Rectal cancer Hypertension Arthritis of knee CVD (cardiovascular disease) Mother Hypertension CVD (cardiovascular disease) Myocardial infarction Diabetes Surgical History History of partial hysterectomy Hx of cardiac cath Hx of cervical spine surgery Social History Household Members: Spouse Alcohol intake: never Smoking Status: Former smoker service: No Current occupational status: retired Meds Allergies Allergy/AdvReac Type Severity Reaction Status Date / Time sulfamethoxazole Allergy Intermediate RASH Verified 05/09/20 11:00 trimethoprim Allergy Intermediate RASH Verified 05/09/20 11:00 cefdinir Allergy Mild hives Verified 05/09/20 11:00 melatonin Allergy Mild inadequate Verified 05/09/20 11:00 response morphine [Morphine] Allergy Mild ITCHING, Verified 05/09/20 11:00 hives Sulfa (Sulfonamide Allergy Mild hives, Verified 05/09/20 11:00 Antibiotics) itching duloxetine AdvReac Intermediate altered Verified 05/09/20 11:00 behavior betina AdvReac Mild RUNNY NOSE Verified 05/09/20 11:00 mustard AdvReac Mild RUNNY NOSE Verified 04/04/20 11:05 potato [POTATO] AdvReac Mild ITCHY NOSE Verified 04/04/20 11:05 soybean AdvReac Mild RUNNY NOSE Verified 04/04/20 11:05 Active Medications: Current Medications Generic Name Dose Route Start Last Admin Trade Name Freq PRN Reason Stop Dose Admin Acetaminophen 650 mg 07/12/20 00:13 Acetaminophen 325 Mg Tablet PO Q6H PRN Pain, Mild (Pain Scale 1-3) Insulin Human Lispro 0 unit 07/12/20 07:30 Insulin Lispro 100 Unit/Ml 3 Ml Vial SUBCUT [facility] Protocol Pharmacy Consult 1 each 07/11/20 23:32 Consult Rx Perform Med Rec MISCELLANE ONCE PRN Consult order Sodium Chloride 3 ml 07/12/20 08:00 0.9 % Sodium Chloride Flush 3 [facility] Medications Medication Instructions Recorded Confirmed Last Taken Type Jardiance 25 mg PO QAM 07/12/20 07/12/20 Unknown History Lantus U-100 Insulin 10 unit SUBCUT QPM 07/12/20 07/12/20 Unknown History Toviaz 8 mg PO DAILY 07/12/20 07/12/20 Unknown History Tresiba FlexTouch U-100 15 unit SUBCUT DAILY 07/12/20 Unknown History Trulicity 0.75 mg SUBCUT QWEEK 07/12/20 07/12/20 Unknown History Xarelto 20 mg PO QPM 07/12/20 07/12/20 Unknown History acetaminophen [Tylenol] 975 mg PO Q8-10H PRN 07/12/20 07/12/20 Unknown History atenolol 50 mg PO BID 07/12/20 07/12/20 Unknown History baclofen 5 mg PO TID 07/12/20 07/12/20 Unknown History cholecalciferol (vitamin D3) 2,000 unit PO DAILY 07/12/20 07/12/20 Unknown History citalopram [Celexa] 10 mg PO DAILY 07/12/20 07/12/20 Unknown History cyanocobalamin (vitamin B-12) 1,000 mcg PO DAILY 07/12/20 07/12/20 Unknown History docusate sodium [DOK] 100 mg PO BID PRN 07/12/20 07/12/20 Unknown History escitalopram oxalate 10 mg PO DAILY 07/12/20 07/12/20 Unknown History ezetimibe 10 mg PO DAILY 07/12/20 07/12/20 Unknown History fenofibrate 160 mg PO DAILY 07/12/20 07/12/20 Unknown History ferrous sulfate 325 mg PO DAILY 07/12/20 07/12/20 Unknown History furosemide 40 mg PO DAILY 07/12/20 07/12/20 Unknown History gabapentin 400 mg PO TID 07/12/20 07/12/20 Unknown History hydroxychloroquine [Plaquenil] 200 mg PO BID 07/12/20 07/12/20 Unknown History loratadine 10 mg PO DAILY 07/12/20 07/12/20 Unknown History losartan 100 mg PO DAILY 07/12/20 07/12/20 Unknown History metformin 1,000 mg PO BID 07/12/20 07/12/20 Unknown History metoclopramide HCl 5 mg PO TID 07/12/20 07/12/20 Unknown History omeprazole 40 mg PO DAILY 07/12/20 07/12/20 Unknown History oxybutynin chloride 5 mg PO BEDTIME 07/12/20 07/12/20 Unknown History rosuvastatin [Crestor] 40 mg PO DAILY 07/12/20 07/12/20 Unknown History sennosides [senna] 17.2 mg PO BEDTIME 07/12/20 07/12/20 Unknown History thiamine HCl (vitamin B1) 100 mg PO DAILY 07/12/20 07/12/20 Unknown History trazodone 50 mg PO BEDTIME PRN 07/12/20 07/12/20 Unknown History Physical Exam Vital Signs and Narrative: Vital Signs: Last Vital Signs Temp 98.0 F 07/11/20 23:41 Pulse 64 07/11/20 23:41 Resp 13 07/11/20 23:41 BP 204/76 H 07/11/20 23:41 Pulse Ox 94 07/11/20 23:41 Body Mass Index 36.8 Gen: Appears be in no acute distress HEENT: NCAT, Moist mucosa. Pulmonary: Vesicular breath sounds, fair air entry CVS: Normal S1-S2 Abdomen: BS+, Soft, Nontender Extremities: Warm well perfused Neuro: Alert and awake.; speech is still slurred slightly. Patient able to communicate. Moves all extremities. Noted mild right-sided weakness compared to the left. Results Labs CBC and Chem 7: 07/12/20 05:39 07/12/20 05:39 Labs: Laboratory Results - last 24 hr 07/11/20 07/11/20 07/11/20 21:28 21:28 21:28 MCV 86.7 MCH 27.5 MCHC 31.7 RDW 17.0 H Plt Count 411 H MPV 8.7 L Immature Gran % (Auto) 0.2 Neut % (Auto) 60.1 Lymph % (Auto) 26.0 Lynn % (Auto) 8.5 Eos % (Auto) 3.9 Baso % (Auto) 1.3 Lymph # (Auto) 2.4 Lynn # (Auto) 0.8 Eos # (Auto) 0.4 Baso # (Auto) 0.1 Abs Immat Gran (auto) 0.02 Absolute Neuts (auto) 5.6 Absolute Nucleated RBC 0.000 Nucleated RBC % (auto) 0.0 PT 11.3 INR 1.0 APTT 42.9 H Anion Gap 15 Estim Creat Clear Calc 80.4 Estimated GFR > 60 Random Glucose 110 Calcium 9.5 Magnesium 2.2 Total Bilirubin 0.5 Direct Bilirubin < 0.2 AST 29 ALT 28 Alkaline Phosphatase 89 Troponin I High Sens B-Natriuretic Peptide Total Protein 7.5 Albumin 4.3 Lipase 90 H 07/11/20 07/11/20 21:28 21:28 MCV MCH MCHC RDW Plt Count MPV Immature Gran % (Auto) Neut % (Auto) Lymph % (Auto) Lynn % (Auto) Eos % (Auto) Baso % (Auto) Lymph # (Auto) Lynn # (Auto) Eos # (Auto) Baso # (Auto) Abs Immat Gran (auto) Absolute Neuts (auto) Absolute Nucleated RBC Nucleated RBC % (auto) PT INR APTT Anion Gap Estim Creat Clear Calc Estimated GFR Random Glucose Calcium Magnesium Total Bilirubin Direct Bilirubin AST ALT Alkaline Phosphatase Troponin I High Sens 10.8 B-Natriuretic Peptide 453 H Total Protein Albumin Lipase Imaging Radiologist's Impressions: Impressions Chest X-Ray 07/11/20 20:34 IMPRESSION: No acute findings. Head/Neck CTA 07/11/20 20:34 IMPRESSION: CTA NECK: Mild stenosis at the origin of the LEFT proximal internal carotid artery approximately 50%. Otherwise, no hemodynamically significant stenosis within the extracranial arterial vasculature. No dissection. CTA HEAD: No large vessel occlusion or hemodynamically significant stenosis within the intracranial arterial vasculature. Venous Duplex 07/11/20 20:34 IMPRESSION: No DVT demonstrated in the right lower extremity. Assessment and Plan (1) Hypertensive urgency: Status: Acute 70-year-old Female with a past medical history of hypertension, hyperlipidemia, diabetes, coronary artery disease, CHF, AFib on Xarelto, CKD, pulmonary hypertension, anxiety, depression, history of C diff, ELHAM presented to the hospital with a chief complaint of elevated blood pressures and leg swelling. Noted to be in hypertensive urgency. Hypertensive urgency: CT head showed no acute findings. Continue home medications. Labetalol p.r.n.. Leg swelling: DVT study negative. Resume Lasix. History of CHF: Patient currently denies any respiratory complaints. Noted mild pedal edema. Continue Lasix. Diabetes: Insulin sliding scale AFib: Rate controlled continue Xarelto. History of CVA: Patient has mild right-sided weakness/mild slurred speech. Speech and swallow eval s/p Left MCA thrombectomy in May 2020 at [facility]. For all other chronic conditions, home medications will be continued Code status: Full code
[2020-07-12] MEDS: Gabapentin 400 MG CAPSULE PO ×4 (02:06→20:36)
[2020-07-12] MEDS: Insulin Glargine,Hum.rec.anlog 100 UNIT/ML 10 ML VIAL 10 UNIT SUBCUT ×2 (02:06→20:38)
[2020-07-12] MEDS: Labetalol HCL 100 MG/20 ML VIAL 10 MG IVPUSH (02:06)
[2020-07-12] MEDS: Acetaminophen 325 MG TABLET 650 MG PO ×2 (02:06→11:55)
[2020-07-12] MEDS: Rivaroxaban 20 MG TABLET PO ×2 (02:14→20:36)
[2020-07-12 02:19] LABS: COVID-19 Test Negative (Negative)
[2020-07-12] MEDS: amLODIPine Besylate 2.5 MG TABLET PO (03:14)
[2020-07-12 06:01] LABS: MANUAL DIFF FLAG NO
[2020-07-12] MEDS: Ibuprofen 400 MG TABLET PO (06:07)
[2020-07-12 06:10] LABS: Basophils Absolute Auto 0.1 X10*3/uL (0.0-0.2); Basophils Percent Auto 1.4 % (0-2); Eosinophils Absolute Auto 0.2 X10*3/uL (0.0-0.4); Eosinophils Percent Auto 2.4 % (0-4); Hematocrit 38.6 % (37-47); Hemoglobin 12.3 g/dl (12.0-16.0); Imm Gran Abs Auto 0.02 X10*3/uL (0.00-0.03); Imm Gran Pct Auto 0.2 % (0.0-0.4); Lymphocytes Absolute Auto 1.5 X10*3/uL (1.2-4.9); Lymphocytes Percent Auto 16.3 % (20-40); Mean Corpuscular HGB Conc 31.9 g/dl (31.0-35.0); Mean Corpuscular Hemoglobin 27.2 pg (27.0-33.0); Mean Corpuscular Volume 85.4 fL (80-98); Mean Platelet Volume 9.2 fL (9.4-12.3); Monocytes Absolute Auto 0.8 X10*3/uL (0.1-1.2); Monocytes Percent Auto 8.4 % (2-11); Neutrophils Absolute Auto 6.6 X10*3/uL (2.0-8.3); Neutrophils Percent Auto 71.3 % (45-73); Platelet Count 420 X10*3/uL (160-400); Red Blood Count 4.52 X10*6/uL (4.20-5.50); White Blood Count 9.3 X10*3/uL (4.8-10.8)
[2020-07-12 06:36] LABS: Anion Gap 13 (12-20); Blood Urea Nitrogen 16 mg/dL (9-16); Calcium 9.7 mg/dL (8.4-10.2); Carbon Dioxide 28 mmol/L (22-29); Chloride 100 mmol/L (96-108); Creatinine Clr Calc Pharmacy 76.8; Estimated Glomerular Filt Rate > 60; Glucose Random 170 mg/dL (60-115); Potassium 4.2 mmol/L (3.3-5.1); Sodium 137 mmol/L (135-145)
[2020-07-12 08:01] LABS: Glucose, Whole Blood 210 mg/dL (60-115)
[2020-07-12] MEDS: Hydroxychloroquine Sulfate 200 MG TABLET PO ×2 (08:28→20:36)
[2020-07-12] MEDS: Losartan Potassium 50 MG TABLET 100 MG PO (08:28)
[2020-07-12] MEDS: Docusate Sodium 100 MG/10 ML LIQUID 50 MG PO ×2 (08:28→20:37)
[2020-07-12] MEDS: amLODIPine Besylate 5 MG TABLET PO (08:28)
[2020-07-12] MEDS: Thiamine HCL 100 MG TABLET PO (08:29)
[2020-07-12] MEDS: Baclofen 10 MG TABLET 5 MG PO ×3 (08:29→20:35)
[2020-07-12] MEDS: 0.9 % Sodium Chloride Flush 3 ML SYRINGE IVFLUSH ×3 (08:29→20:47)
[2020-07-12] MEDS: Escitalopram Oxalate 5 MG TABLET PO (08:29)
[2020-07-12] MEDS: atenoloL 50 MG TABLET PO (08:29)
[2020-07-12] MEDS: Atorvastatin Calcium 80 MG TABLET PO (08:29)
[2020-07-12] MEDS: Insulin Lispro 100 UNIT/ML 3 ML VIAL SUBCUT ×3 (08:29→20:37)
[2020-07-12 11:38] LABS: Glucose, Whole Blood 173 mg/dL (60-115)
--- NOTE | 2020-07-12 12:31 | PM.EVENT ---
Event Note Date of Service: 07/12/20 Event Note: I saw and examined the patient and reviewed meds, labs, and vitals. She is admitted with accelerated HTN in setting of recent stroke. BP is better, will continue home medication and add Norvasc 5 daily and continue monitoring
--- NOTE | 2020-07-12 12:38 | MHC.CM.PN ---
IMM 07/12, EMR REVIEWED, PT ADMITTED WITH ELEVATED BP AND BILATERAL LEG SWELLING AFTER BEING TAKEN OFF LASIX, CM MET W/PT WHO IS ALERT AND ORIENTED AND REPORTS SHE JUST LEFT THE [facility] 3 DAYS AGO, PT FRUSTRATED W BEING IN AND OUT OF HOSPITAL THE LAST FEW MONTHS, PT LIVES WITH HER , IS INDEPENDENT WITH CARE, USES A WHEELED WALKER, CPAP, SHOWER SEAT AND HAS HANDLES ON EITHER SIDE OF TOILET, PT REPORTS SHE HAS [facility] FOR NURSING/OT/PT AND REFERRAL HAS BEEN SENT TO [facility], PT HAD TWO DOCTORS APPT'S TODAY AND ASKED CM TO CANCEL APPT'S FOR HER WHICH WAS DONE AT APPROXIMATELY 9:30AM, PT VERIFIED PCP, PHARMACY AND HCP, HCP FOUND IN OLD RECORDS AND WAS UPLOADED TO [facility]. DISCHARGE PLAN: HOME W/RESUMPTION OF [facility] FOR CUSTODIAL/OT/PT, TO TRANSPORT HCP: RICK OLMEDO () HOME:[phone] CELL: [phone] ALTERNATE PUJA HONORIO (SON) [phone] PCP: BRYCE BRADSHAW
[2020-07-12 16:25] LABS: Glucose, Whole Blood 139 mg/dL (60-115)
[2020-07-12 20:32] LABS: Glucose, Whole Blood 165 mg/dL (60-115)
[2020-07-12] MEDS: traZODone HCL 50 MG TABLET PO (20:36)
[2020-07-12] MEDS: Sennosides 8.6 MG TABLET PO (20:36)
[2020-07-13] VITALS (14 sets, daily range): BP systolic 122–186; BP diastolic 52–85; PULSE 63–88; RESP 18–20; TEMP 36–36.6; O2SAT 95–99
[2020-07-13 08:20] LABS: Glucose, Whole Blood 126 mg/dL (60-115)
--- NOTE | 2020-07-13 08:37 | MHC.CLN ---
RE: CONSULT PO INTAKE 100% DIET RX 1500DM 2GM NA-APPORPRIATE 1500 CALORIES PER DAY TO PROMOTE SLOW WT LOSS 2GM NA DIET R/T HX CHF, CAD NOTED FRAGILE SKIN FOLLOWING
[2020-07-13] MEDS: amLODIPine Besylate 5 MG TABLET PO ×2 (09:41→14:19)
[2020-07-13] MEDS: Losartan Potassium 50 MG TABLET 100 MG PO (09:41)
[2020-07-13] MEDS: Acetaminophen 325 MG TABLET 650 MG PO (09:41)
[2020-07-13] MEDS: atenoloL 50 MG TABLET PO ×2 (09:42→20:15)
[2020-07-13] MEDS: 0.9 % Sodium Chloride Flush 3 ML SYRINGE IVFLUSH ×3 (09:43→23:47)
[2020-07-13] MEDS: Docusate Sodium 100 MG/10 ML LIQUID 50 MG PO ×2 (10:05→20:13)
[2020-07-13] MEDS: Atorvastatin Calcium 80 MG TABLET PO (10:07)
[2020-07-13] MEDS: Baclofen 10 MG TABLET 5 MG PO ×3 (10:08→20:14)
[2020-07-13] MEDS: Thiamine HCL 100 MG TABLET PO (10:09)
[2020-07-13] MEDS: Hydroxychloroquine Sulfate 200 MG TABLET PO ×2 (10:09→20:15)
[2020-07-13] MEDS: metFORMIN HCl 1,000 MG TABLET 1000 MG PO ×2 (10:10→16:23)
[2020-07-13] MEDS: Gabapentin 400 MG CAPSULE PO ×3 (10:10→20:14)
[2020-07-13] MEDS: Escitalopram Oxalate 5 MG TABLET PO (10:11)
--- NOTE | 2020-07-13 11:02 | PM.CNCAR ---
History of Present Illness History of Present Illness Date of Service: 07/13/20 Consult reason: hypertension Chief complaint: Hypertensive urgency Narrative: This is a cardiology consultation regarding hypertension. Patient is known to us but we have not seen her in the last few months. She has a history of coronary disease and underwent drug-eluting stent in her marginal artery in 2016. Otherwise she has chronic heart failure with preserved ejection fraction and paroxysmal atrial fibrillation and hypertension. It seems that in the last few months, she has had numerous hospitalizations to [facility] as well as [facility]. Couple months ago, she had stroke at [facility] which was thought to be ischemic stroke. She has been on Xarelto all along for the atrial fibrillation itself. This time, she has been admitted for hypertension management. She does not have any specific cardiac symptoms like angina or shortness of breath or anything else. Review of Systems Review of Systems: Yes all other systems are reviewed and are negative Cardiovascular: Cardiovascular: Reports as per HPI, Reports no additional cardiovascular complaints, Denies acrocyanosis, Denies cool extremities, Denies painful fingertips, Denies chest pain, Denies chest pain at rest, Denies diaphoresis, Denies syncope, Denies irregular heart rhythm, Denies claudication, Denies leg edema, Denies lightheadedness, Denies palpitations and Denies dyspnea Respiratory: Respiratory: Denies dyspnea Neurologic: Denies syncope Endocrine: Endocrine: Denies palpitations [facility] Past Medical History Medical History (Updated 07/13/20 @ 11:06 by Genaro Sweet MD) Atherosclerotic cardiovascular disease Atrial fibrillation Diabetes mellitus Essential hypertension Hospital discharge follow-up Iron deficiency anemia Ischemic stroke Lumbar degenerative disc disease Paroxysmal atrial fibrillation Pulmonary hypertension Pure hypercholesterolemia Thrombus Urge urinary incontinence Family History Family History Father Rectal cancer Hypertension Arthritis of knee CVD (cardiovascular disease) Mother Hypertension CVD (cardiovascular disease) Myocardial infarction Diabetes Surgical History Surgical History History of partial hysterectomy Hx of cardiac cath Hx of cervical spine surgery Social History Social History Household Members: Spouse Do you presently have visiting nurse or other home services: Yes (was receiving PT services) Alcohol intake: never Smoking Status: Former smoker Smoked in Last 30 Days: No Use of substances other than those prescribed or required for medical reasons: No Currently Displaying Signs/Symptoms of Drug Intoxication Withdrawal: No Any prior treatment program specific to substance use: No Have you been hit, kicked, punched, or otherwise hurt by someone within the past year? If so, by whom?: No Do you feel safe in your current relationship?: Yes Is there a partner from a previous relationship who is making you feel unsafe now?: No Are you made to feel afraid or neglected: No Advance Directives: No Advance Directives Information Provided: No Do you have thoughts of harming others: None Do you have a plan to hurt others: No Plan Recently lost weight without trying: No service: No Current occupational status: retired Meds Allergies Allergy/AdvReac Type Severity Reaction Status Date / Time sulfamethoxazole Allergy Intermediate RASH Verified 05/09/20 11:00 trimethoprim Allergy Intermediate RASH Verified 05/09/20 11:00 cefdinir Allergy Mild hives Verified 05/09/20 11:00 melatonin Allergy Mild inadequate Verified 05/09/20 11:00 response morphine [Morphine] Allergy Mild ITCHING, Verified 05/09/20 11:00 hives Sulfa (Sulfonamide Allergy Mild hives, Verified 05/09/20 11:00 Antibiotics) itching cheese [CHEESE] AdvReac Intermediate NAUSEA & Verified 05/09/20 11:00 VOMITING duloxetine AdvReac Intermediate altered Verified 05/09/20 11:00 behavior betina AdvReac Mild RUNNY NOSE Verified 05/09/20 11:00 mustard AdvReac Mild RUNNY NOSE Verified 04/04/20 11:05 potato [POTATO] AdvReac Mild ITCHY NOSE Verified 04/04/20 11:05 soybean AdvReac Mild RUNNY NOSE Verified 04/04/20 11:05 Active Medications: Current Medications Generic Name Dose Route Start Last Admin Trade Name Freq PRN Reason Stop Dose Admin Acetaminophen 650 mg 07/12/20 00:13 07/13/20 09:41 Acetaminophen 325 Mg Tablet PO 650 mg Q6H PRN Administration Pain, Mild (Pain Scale 1-3) Amlodipine Besylate 5 mg 07/12/20 09:00 07/13/20 09:41 Amlodipine Besylate 5 Mg Tablet PO 5 mg DAILY SHANON Administration Protocol Atenolol 50 mg 07/12/20 09:00 07/13/20 09:42 Atenolol 50 Mg Tablet PO 50 mg DAILY SHANON Administration Protocol Atorvastatin Calcium 80 mg 07/12/20 09:00 07/13/20 10:07 Atorvastatin Calcium 80 Mg Tablet PO 80 mg DAILY SHANON Administration Baclofen 5 mg 07/12/20 09:00 07/13/20 10:08 Baclofen 10 Mg Tablet PO 5 mg TID SHANON Administration Docusate Sodium 50 mg 07/12/20 09:00 07/13/20 10:05 Docusate Sodium 100 Mg/10 Ml Liquid PO 50 mg BID SHANON Administration Escitalopram Oxalate 5 mg 07/12/20 09:00 07/13/20 10:11 Escitalopram Oxalate 5 Mg Tablet PO 5 mg DAILY SHANON Administration Gabapentin 400 mg 07/12/20 09:00 07/13/20 10:10 Gabapentin 400 Mg Capsule PO 400 mg TID SHANON Administration Hydroxychloroquine Sulfate 200 mg 07/12/20 09:00 07/13/20 10:09 Hydroxychloroquine Sulfate 200 Mg Tablet PO 200 mg BID SHANON Administration Insulin Glargine 10 unit 07/12/20 01:30 07/12/20 20:38 Insulin Glargine,Hum.Rec.Anlog 100 Unit/Ml 10 Ml Vial SUBCUT 10 unit BEDTIME SHANON Administration Insulin Human Lispro 0 unit 07/12/20 07:30 07/13/20 08:12 Insulin Lispro 100 Unit/Ml 3 Ml Vial SUBCUT [facility] Protocol Labetalol HCl 10 mg 07/12/20 00:24 07/12/20 02:06 Labetalol Hcl 100 Mg/20 Ml Vial IVPUSH 10 mg Q4H PRN Administration BP>180/90 Losartan Potassium 100 mg 07/12/20 09:00 07/13/20 09:41 Losartan Potassium 50 Mg Tablet PO 100 mg DAILY SHANON Administration Protocol Metformin HCl 1,000 mg 07/12/20 08:00 07/13/20 10:10 Metformin Hcl 1,000 Mg Tablet PO 1,000 mg BID@0800,1700 SHANON Administration Oxybutynin Chloride 5 mg 07/12/20 21:00 07/12/20 20:36 Oxybutynin Chloride Er 5 Mg Tab.Er.24 PO 5 mg BEDTIME SHANON Administration Pharmacy Consult 1 each 07/11/20 23:32 Consult Rx Perform Med Rec MISCELLANE ONCE PRN Consult order Rivaroxaban 20 mg 07/12/20 01:30 07/12/20 20:36 Rivaroxaban 20 Mg Tablet PO 20 mg BEDTIME SHANON Administration Senna 8.6 mg 07/12/20 21:00 07/12/20 20:36 Sennosides 8.6 Mg Tablet PO 8.6 mg BEDTIME SHANON Administration Sodium Chloride 3 ml 07/12/20 08:00 07/13/20 09:43 0.9 % Sodium Chloride Flush 3 Ml Syringe IVFLUSH 3 ml QSHIFT SHANON Administration Thiamine HCl 100 mg 07/12/20 09:00 07/13/20 10:09 Thiamine Hcl 100 Mg Tablet PO 100 mg DAILY SHANON Administration Trazodone HCl 50 mg 07/12/20 21:00 07/12/20 20:36 Trazodone Hcl 50 Mg Tablet PO 50 mg BEDTIME SHANON Administration Home Medications Medication Instructions Recorded Confirmed Last Taken Type acetaminophen [Tylenol] 975 mg PO Q8-10H PRN 07/12/20 07/12/20 Unknown History atenolol 50 mg PO BID 07/12/20 07/12/20 Unknown History baclofen 5 mg PO TID 07/12/20 07/12/20 Unknown History cholecalciferol (vitamin D3) 2,000 unit PO DAILY 07/12/20 07/12/20 Unknown History citalopram [Celexa] 10 mg PO DAILY 07/12/20 07/12/20 Unknown History cyanocobalamin (vitamin B-12) 1,000 mcg PO DAILY 07/12/20 07/12/20 Unknown History docusate sodium [DOK] 100 mg PO BID PRN 07/12/20 07/12/20 Unknown History dulaglutide [Trulicity] 0.75 mg SUBCUT QWEEK 07/12/20 07/12/20 Unknown History empagliflozin [Jardiance] 25 mg PO QAM 07/12/20 07/12/20 Unknown History escitalopram oxalate 10 mg PO DAILY 07/12/20 07/12/20 Unknown History ezetimibe 10 mg PO DAILY 07/12/20 07/12/20 Unknown History fenofibrate 160 mg PO DAILY 07/12/20 07/12/20 Unknown History ferrous sulfate 325 mg PO DAILY 07/12/20 07/12/20 Unknown History fesoterodine [Toviaz] 8 mg PO DAILY 07/12/20 07/12/20 Unknown History furosemide 40 mg PO DAILY 07/12/20 07/12/20 Unknown History gabapentin 400 mg PO TID 07/12/20 07/12/20 Unknown History hydroxychloroquine [Plaquenil] 200 mg PO BID 07/12/20 07/12/20 Unknown History insulin degludec [Tresiba 15 unit SUBCUT DAILY 07/12/20 Unknown History FlexTouch U-100] insulin glargine [Lantus U-100 10 unit SUBCUT QPM 07/12/20 07/12/20 Unknown History Insulin] loratadine 10 mg PO DAILY 07/12/20 07/12/20 Unknown History losartan 100 mg PO DAILY 07/12/20 07/12/20 Unknown History metformin 1,000 mg PO BID 07/12/20 07/12/20 Unknown History metoclopramide HCl 5 mg PO TID 07/12/20 07/12/20 Unknown History omeprazole 40 mg PO DAILY 07/12/20 07/12/20 Unknown History oxybutynin chloride 5 mg PO BEDTIME 07/12/20 07/12/20 Unknown History rivaroxaban [Xarelto] 20 mg PO QPM 07/12/20 07/12/20 Unknown History rosuvastatin [Crestor] 40 mg PO DAILY 07/12/20 07/12/20 Unknown History sennosides [senna] 17.2 mg PO BEDTIME 07/12/20 07/12/20 Unknown History tamsulosin 0.4 mg PO DAILY 07/12/20 07/12/20 Unknown History thiamine HCl (vitamin B1) 100 mg PO DAILY 07/12/20 07/12/20 Unknown History trazodone 50 mg PO BEDTIME PRN 07/12/20 07/12/20 Unknown History Physical Exam Vital Signs: Vital Signs: Last Vital Signs Temp 97 F 07/13/20 08:24 Pulse 79 07/13/20 09:42 Resp 18 07/13/20 08:24 BP 175/79 H 07/13/20 09:42 Pulse Ox 95 07/13/20 08:24 Body Mass Index 37.5 Const: General: cooperative, comfortable and no acute distress Orientation/consciousness: patient oriented x3 HENMT: Other: Unremarkable Neck: Neck: Yes normal visual inspection Chest: Chest palpation & inspection: normal inspection of the chest Resp: Auscultation: clear to auscultation bilaterally, no crackles and no wheezes Cardio: Jugular venous distension: no JVD Palpation: normal PMI Heart sounds: S1 normal heart sound present, S2 normal heart sound present, no gallops, no murmurs and no rubs GI: Palpation (GI): Soft to palpation Back/Spine/Pelvis: Other: unremarkable Skin: General skin exam: no rashes or lesions noted Neuro: General: patient oriented x3 Extrem: General: Yes no clubbing, cyanosis or edema Psych: Mental Status: mental status grossly normal Results Labs and Meds Result diagrams: 07/12/20 05:39 07/12/20 05:39 Lab results: Laboratory Results - last 24 hr 07/12/20 07/12/20 07/12/20 11:21 16:15 20:22 POC Glucose 173 H 139 H 165 H 07/13/20 07:16 POC Glucose 126 H ECG Attestation: I personally reviewed and interpreted this ECG as follows: Interpretation: EKG on admission with sinus rhythm at 61/Min, no significant ST-T changes and otherwise unremarkable. Assessment and Plan (1) Uncontrolled hypertension: Status: Acute (2) Atherosclerotic cardiovascular disease: Status: Acute (3) Paroxysmal atrial fibrillation: Status: Acute (4) Ischemic stroke: Status: Acute (5) Pulmonary hypertension: Status: Acute Based on the last office visit from January 2020, she was on atenolol 50 mg b.i.d., losartan 100 mg daily. At that time, her blood pressure was 116/58 mm Hg. Prior to that, she was also on diltiazem but we had to stop it because of low blood pressure. Currently her blood pressures are running high. We can go up on the atenolol dose to 50 mg b.i.d.. Increase amlodipine to 10 mg daily. Continue losartan 100 mg daily. Clinically, she has no symptoms. She is insisting that she wants to go home. Hence may discharge on the above regimen and we can arrange follow-up. Procedures Date of Service Date of Service: 07/13/20
[2020-07-13 11:18] LABS: Glucose, Whole Blood 186 mg/dL (60-115)
[2020-07-13] MEDS: Insulin Lispro 100 UNIT/ML 3 ML VIAL SUBCUT ×2 (12:15→20:12)
--- NOTE | 2020-07-13 13:02 | P.PNIM_ITS ---
Subjective Subjective Date of Service: 07/13/20 Interval History: Seen in f/u for accelerated HTN. BP is still high but overall better. She has been having fluctuating blood pressures and has been at [facility] and [facility] recently with adjustment in meds, and at the last discharge from [facility] 06/28 Norvasc was discontinued because of orthostatic hypotension--so she has been on Losartan 100 and Atenolol 50 Review of Systems Gen: no fever Resp: no sob, no cough CV: no chest, no [place], no leg edema GI: No n/v, no abd pain Neuro: No confusion Physical Exam Vital Signs: Vital Signs: Last Vital Signs Temp 97.1 F 07/13/20 11:46 Pulse 64 07/13/20 11:46 Resp 18 07/13/20 11:46 BP 168/72 H 07/13/20 11:41 Pulse Ox 98 07/13/20 11:46 Body Mass Index 37.5 Const: General: cooperative, comfortable and no acute distress Orientation/consciousness: patient oriented x3 HENMT: Other: Unremarkable Neck: Neck: Yes normal visual inspection Chest: Chest palpation & inspection: normal inspection of the chest Resp: Auscultation: clear to auscultation bilaterally, no crackles and no wheezes Cardio: Jugular venous distension: no JVD Palpation: normal PMI Heart sounds: S1 normal heart sound present, S2 normal heart sound present, no gallops, no murmurs and no rubs GI: Palpation (GI): Soft to palpation Back/Spine/Pelvis: Other: unremarkable Skin: General skin exam: no rashes or lesions noted Neuro: General: patient oriented x3 Extrem: General: Yes no clubbing, cyanosis or edema Psych: Mental Status: mental status grossly normal Objective Data Current Medications Generic Name Dose Route Start Last Admin Trade Name Freq PRN Reason Stop Dose Admin Acetaminophen 650 mg 07/12/20 00:13 07/13/20 09:41 Acetaminophen 325 Mg Tablet PO 650 mg Q6H PRN Administration Pain, Mild (Pain Scale 1-3) Atenolol 50 mg 07/13/20 21:00 Atenolol 50 Mg Tablet PO BID [facility] Protocol Atorvastatin Calcium 80 mg 07/12/20 09:00 07/13/20 10:07 Atorvastatin Calcium 80 Mg Tablet PO 80 mg DAILY SHANON Administration Baclofen 5 mg 07/12/20 09:00 07/13/20 10:08 Baclofen 10 Mg Tablet PO 5 mg TID SHANON Administration Docusate Sodium 50 mg 07/12/20 09:00 07/13/20 10:05 Docusate Sodium 100 Mg/10 Ml Liquid PO 50 mg BID SHANON Administration Escitalopram Oxalate 5 mg 07/12/20 09:00 07/13/20 10:11 Escitalopram Oxalate 5 Mg Tablet PO 5 mg DAILY SHANON Administration Gabapentin 400 mg 07/12/20 09:00 07/13/20 10:10 Gabapentin 400 Mg Capsule PO 400 mg TID SHANON Administration Hydroxychloroquine Sulfate 200 mg 07/12/20 09:00 07/13/20 10:09 Hydroxychloroquine Sulfate 200 Mg Tablet PO 200 mg BID SHANON Administration Insulin Glargine 10 unit 07/12/20 01:30 07/12/20 20:38 Insulin Glargine,Hum.Rec.Anlog 100 Unit/Ml 10 Ml Vial SUBCUT 10 unit BEDTIME SHANON Administration Insulin Human Lispro 0 unit 07/12/20 07:30 07/13/20 12:15 Insulin Lispro 100 Unit/Ml 3 Ml Vial SUBCUT 2 unit QIDACHS [facility] Administration Protocol Labetalol HCl 10 mg 07/12/20 00:24 07/12/20 02:06 Labetalol Hcl 100 Mg/20 Ml Vial IVPUSH 10 mg Q4H PRN Administration BP>180/90 Losartan Potassium 100 mg 07/12/20 09:00 07/13/20 09:41 Losartan Potassium 50 Mg Tablet PO 100 mg DAILY SHANON Administration Protocol Metformin HCl 1,000 mg 07/12/20 08:00 07/13/20 10:10 Metformin Hcl 1,000 Mg Tablet PO 1,000 mg BID@0800,1700 SHANON Administration Oxybutynin Chloride 5 mg 07/12/20 21:00 07/12/20 20:36 Oxybutynin Chloride Er 5 Mg Tab.Er.24 PO 5 mg BEDTIME [facility] Administration Pharmacy Consult 1 each 07/11/20 23:32 Consult Rx Perform Med Rec MISCELLANE ONCE PRN Consult order Rivaroxaban 20 mg 07/12/20 01:30 07/12/20 20:36 Rivaroxaban 20 Mg Tablet PO 20 mg BEDTIME SHANON Administration Senna 8.6 mg 07/12/20 21:00 07/12/20 20:36 Sennosides 8.6 Mg Tablet PO 8.6 mg BEDTIME SHANON Administration Sodium Chloride 3 ml 07/12/20 08:00 07/13/20 09:43 0.9 % Sodium Chloride Flush 3 Ml Syringe IVFLUSH 3 ml QSHIFT SHANON Administration Thiamine HCl 100 mg 07/12/20 09:00 07/13/20 10:09 Thiamine Hcl 100 Mg Tablet PO 100 mg DAILY [facility]ON Administration Trazodone HCl 50 mg 07/12/20 21:00 07/12/20 20:36 Trazodone Hcl 50 Mg Tablet PO 50 mg BEDTIME SHANON Administration Labs CBC & Chem 7: 07/12/20 05:39 07/12/20 05:39 Assessment and Plan (1) Hypertensive urgency: Status: Acute Assessment and Plan: 70-year-old Female with a past medical history of hypertension, hyperlipidemia, diabetes, coronary artery disease, CHF, AFib on Xarelto, CKD, pulmonary hypertension, anxiety, depression, history of C diff, [place]HAM presented to the hospital with a chief complaint of elevated blood pressures and leg swelling. Noted to be in hypertensive urgency. Hypertensive urgency, SBP was greater > 200 when she presented and has come down, was given Labetolol and Norvasc. BP is way better now at 168/72. Cardiology recommends adjusting meds to increase Norvasc to 10 mg daily, Atenolol 50 bid and to continue Losartan, along with Lasix Leg swelling: DVT study negative. Continue Lasix. History of CHF: Patient currently denies any respiratory complaints. Noted mild pedal edema. Continue Lasix. Diabetes: Insulin sliding scale AFib: Rate controlled continue Xarelto. History of CVA: Patient has mild right-sided weakness/mild slurred speech. Speech and swallow eval s/p Left MCA thrombectomy in May 2020 at [facility]. For all other chronic conditions, home medications will be continued Discharge tomorrow
[2020-07-13 16:17] LABS: Glucose, Whole Blood 137 mg/dL (60-115)
[2020-07-13 19:33] LABS: Glucose, Whole Blood 202 mg/dL (60-115)
[2020-07-13] MEDS: Insulin Glargine,Hum.rec.anlog 100 UNIT/ML 10 ML VIAL 10 UNIT SUBCUT (20:12)
[2020-07-13] MEDS: Sennosides 8.6 MG TABLET PO (20:14)
[2020-07-13] MEDS: Rivaroxaban 20 MG TABLET PO (20:14)
[2020-07-13] MEDS: traZODone HCL 50 MG TABLET PO (21:56)
[2020-07-14] MEDS: Acetaminophen 325 MG TABLET 650 MG PO (00:44)
[2020-07-14 04:00] VITALS: PULSE 61
[2020-07-14 07:06] VITALS: BP 112/62; PULSE 62; RESP 18; TEMP 36.6; O2SAT 99
[2020-07-14 07:21] LABS: Glucose, Whole Blood 153 mg/dL (60-115)
[2020-07-14 08:03] VITALS: BP 112/62; PULSE 62
[2020-07-14] MEDS: Losartan Potassium 50 MG TABLET 100 MG PO (08:03)
[2020-07-14 08:04] VITALS: BP 112/62; PULSE 62
[2020-07-14] MEDS: Gabapentin 400 MG CAPSULE PO (08:04)
[2020-07-14] MEDS: atenoloL 50 MG TABLET PO (08:04)
[2020-07-14] MEDS: Thiamine HCL 100 MG TABLET PO (08:04)
[2020-07-14] MEDS: Atorvastatin Calcium 80 MG TABLET PO (08:04)
[2020-07-14] MEDS: Baclofen 10 MG TABLET 5 MG PO (08:05)
[2020-07-14 08:06] VITALS: BP 112/62; PULSE 62
[2020-07-14] MEDS: Escitalopram Oxalate 5 MG TABLET PO (08:06)
[2020-07-14] MEDS: Insulin Lispro 100 UNIT/ML 3 ML VIAL SUBCUT (08:06)
[2020-07-14] MEDS: Hydroxychloroquine Sulfate 200 MG TABLET PO (08:06)
[2020-07-14] MEDS: metFORMIN HCl 1,000 MG TABLET 1000 MG PO (08:06)
[2020-07-14] MEDS: amLODIPine Besylate 10 MG TABLET PO (08:06)
[2020-07-14] MEDS: 0.9 % Sodium Chloride Flush 3 ML SYRINGE IVFLUSH (08:07)
--- NOTE | 2020-07-14 09:36 | PM.PNCARD ---
Subjective Subjective Date of Service: 07/14/20 Interval history: Patient states that she feels well. No specific cardiac complaints. Review of Systems Review of Systems Yes all other systems are reviewed and are negative Cardiovascular: Reports as per HPI, Reports no additional cardiovascular complaints, Denies acrocyanosis, Denies cool extremities, Denies painful fingertips, Denies chest pain, Denies chest pain at rest, Denies diaphoresis, Denies syncope, Denies irregular heart rhythm, Denies claudication, Denies leg edema, Denies lightheadedness, Denies palpitations and Denies dyspnea Respiratory: Denies dyspnea Denies syncope Endocrine: Denies palpitations Physical Exam Vital Signs: Last Vital Signs Temp 98 F 07/14/20 07:06 Pulse 62 07/14/20 08:06 Resp 18 07/14/20 07:06 BP 112/62 07/14/20 08:06 Pulse Ox 99 07/14/20 07:06 Body Mass Index 37.5 Const General: cooperative, comfortable and no acute distress Orientation/consciousness: patient oriented x3 HENMT Other: Unremarkable Neck Neck: Yes normal visual inspection Chest Chest palpation & inspection: normal inspection of the chest Resp Auscultation: clear to auscultation bilaterally, no crackles and no wheezes Cardio Jugular venous distension: no JVD Palpation: normal PMI Heart sounds: S1 normal heart sound present, S2 normal heart sound present, no gallops, no murmurs and no rubs GI Palpation (GI): Soft to palpation Back/Spine/Pelvis Other: unremarkable Skin General skin exam: no rashes or lesions noted Neuro General: patient oriented x3 Extrem General: Yes no clubbing, cyanosis or edema Psych Mental Status: mental status grossly normal Results Labs and Meds Result diagrams: 07/12/20 05:39 07/12/20 05:39 Lab results: Laboratory Results - last 24 hr 07/13/20 07/13/20 07/13/20 11:10 16:09 19:30 POC Glucose 186 H 137 H 202 H 07/14/20 07:03 POC Glucose 153 H Progress Note: A&P Assessment and plan (1) Uncontrolled hypertension: Status: Acute (2) Atherosclerotic cardiovascular disease: Status: Acute (3) Paroxysmal atrial fibrillation: Status: Acute (4) Ischemic stroke: Status: Acute (5) Pulmonary hypertension: Status: Acute Assessment and Plan: Based on the last office visit from January 2020, she was on atenolol 50 mg b.i.d., losartan 100 mg daily. At that time, her blood pressure was 116/58 mm Hg. Prior to that, she was also on diltiazem but we had to stop it because of low blood pressure. As she has had some any hospitalizations recently, there are many medication changes. Amlodipine was recently stopped at [facility] because of low blood pressure. We have to put her back on it as the pressure is again very high. Today she is ambulating in the hallway and she seems to be doing okay without any dizziness. Hence we can keep her on the current regimen and start discharge planning. Otherwise continue her usual medications for atrial fibrillation, vascular disease and other comorbidities. Once she is discharged, we can arrange follow-up for her cardiac issues. Fall Risk Details Current Medications: Current Medications Generic Name Dose Route Start Last Admin Trade Name Freq PRN Reason Stop Dose Admin Acetaminophen 650 mg 07/12/20 00:13 07/14/20 00:44 Acetaminophen 325 Mg Tablet PO 650 mg Q6H PRN Administration Pain, Mild (Pain Scale 1-3) Amlodipine Besylate 10 mg 07/14/20 09:00 07/14/20 08:06 Amlodipine Besylate 10 Mg Tablet PO 10 mg DAILY SHANON Administration Protocol Atenolol 50 mg 07/13/20 21:00 07/14/20 08:04 Atenolol 50 Mg Tablet PO 50 mg BID SHANON Administration Protocol Atorvastatin Calcium 80 mg 07/12/20 09:00 07/14/20 08:04 Atorvastatin Calcium 80 Mg Tablet PO 80 mg DAILY SHANON Administration Baclofen 5 mg 07/12/20 09:00 07/14/20 08:05 Baclofen 10 Mg Tablet PO 5 mg TID SHANON Administration Docusate Sodium 50 mg 07/12/20 09:00 07/14/20 08:13 Docusate Sodium 100 Mg/10 Ml Liquid PO Not Given BID SHANON Escitalopram Oxalate 5 mg 07/12/20 09:00 07/14/20 08:06 Escitalopram Oxalate 5 Mg Tablet PO 5 mg DAILY SHANON Administration Gabapentin 400 mg 07/12/20 09:00 07/14/20 08:04 Gabapentin 400 Mg Capsule PO 400 mg TID SHANON Administration Hydroxychloroquine Sulfate 200 mg 07/12/20 09:00 07/14/20 08:06 Hydroxychloroquine Sulfate 200 Mg Tablet PO 200 mg BID SHANON Administration Insulin Glargine 10 unit 07/12/20 01:30 07/13/20 20:12 Insulin Glargine,Hum.Rec.Anlog 100 Unit/Ml 10 Ml Vial SUBCUT 10 unit BEDTIME SHANON Administration Insulin Human Lispro 0 unit 07/12/20 07:30 07/14/20 08:06 Insulin Lispro 100 Unit/Ml 3 Ml Vial SUBCUT 2 unit QIDACHS [facility]ON Administration Protocol Labetalol HCl 10 mg 07/12/20 00:24 07/12/20 02:06 Labetalol Hcl 100 Mg/20 Ml Vial IVPUSH 10 mg Q4H PRN Administration BP>180/90 Losartan Potassium 100 mg 07/12/20 09:00 07/14/20 08:03 Losartan Potassium 50 Mg Tablet PO 100 mg DAILY SHANON Administration Protocol Metformin HCl 1,000 mg 07/12/20 08:00 07/14/20 08:06 Metformin Hcl 1,000 Mg Tablet PO 1,000 mg BID@0800,1700 SHANON Administration Oxybutynin Chloride 5 mg 07/12/20 21:00 07/13/20 20:14 Oxybutynin Chloride Er 5 Mg Tab.Er.24 PO 5 mg BEDTIME [facility]ON Administration Pharmacy Consult 1 each 07/11/20 23:32 Consult Rx Perform Med Rec MISCELLANE ONCE PRN Consult order Rivaroxaban 20 mg 07/12/20 01:30 07/13/20 20:14 Rivaroxaban 20 Mg Tablet PO 20 mg BEDTIME [facility] Administration Senna 8.6 mg 07/12/20 21:00 07/13/20 20:14 Sennosides 8.6 Mg Tablet PO 8.6 mg BEDTIME [facility]ON Administration Sodium Chloride 3 ml 07/12/20 08:00 07/14/20 08:07 0.9 % Sodium Chloride Flush 3 Ml Syringe IVFLUSH 3 ml QSHIFT SHANON Administration Thiamine HCl 100 mg 07/12/20 09:00 07/14/20 08:04 Thiamine Hcl 100 Mg Tablet PO 100 mg DAILY [facility]ANON Administration Trazodone HCl 50 mg 07/12/20 21:00 07/13/20 21:56 Trazodone Hcl 50 Mg Tablet PO 50 mg BEDTIME SHANON Administration Time Spent With Patient Time: Total time spent is greater than 50% in coordination of care (as documented) at patient's floor/unit and/or counseling patient: Time with patient: less than 15 minutes Procedures Date of Service Date of Service: 07/14/20
--- NOTE | 2020-07-14 10:56 | MHC.CM.PN ---
IMM 07/12/20 Female 70 dx HTN urgency. Medications have been adjusted. The Patient is ready to DC today. DP resumtion of [facility]. Pts spouse is proving transportation.
[2020-07-14 11:03] VITALS: BP 141/72; PULSE 105; RESP 20; TEMP 36.6; O2SAT 96
[2020-07-14 11:15] LABS: Glucose, Whole Blood 123 mg/dL (60-115)
--- NOTE | 2020-07-14 11:30 | PM.DS ---
DS: Providers Provider Date of Service: 07/14/20 Date of admission: 07/12/20 00:13 Primary care physician: Marla Bray MD Consults: 07/12/20 05:44 Consult Respiratory Therapy Routine Reason for consultation: CPAP at night 07/13/20 09:38 Consult to Cardiology Routine Consulting Provider: Genaro Sweet Reason for consultation: Accelerated HTN in setting of heart disease DS: Diagnosis Discharge Diagnosis (1) Uncontrolled hypertension: Status: Acute (2) Atherosclerotic cardiovascular disease: Status: Acute (3) Paroxysmal atrial fibrillation: Status: Acute (4) Ischemic stroke: Status: Acute (5) Pulmonary hypertension: Status: Acute DS: Medications Discharge Medications Home Medications: Home Medications Medication Instructions Recorded Confirmed Jardiance 25 mg PO QAM 07/12/20 07/12/20 Lantus U-100 Insulin 10 unit SUBCUT QPM 07/12/20 07/12/20 Toviaz 8 mg PO DAILY 07/12/20 07/12/20 Tresiba FlexTouch U-100 15 unit SUBCUT DAILY 07/12/20 Trulicity 0.75 mg SUBCUT QWEEK 07/12/20 07/12/20 Xarelto 20 mg PO QPM 07/12/20 07/12/20 acetaminophen [Tylenol] 975 mg PO Q8-10H PRN 07/12/20 07/12/20 atenolol 50 mg PO BID 07/12/20 07/12/20 baclofen 5 mg PO TID 07/12/20 07/12/20 cholecalciferol (vitamin D3) 2,000 unit PO DAILY 07/12/20 07/12/20 citalopram [Celexa] 10 mg PO DAILY 07/12/20 07/12/20 cyanocobalamin (vitamin B-12) 1,000 mcg PO DAILY 07/12/20 07/12/20 docusate sodium [DOK] 100 mg PO BID PRN 07/12/20 07/12/20 escitalopram oxalate 10 mg PO DAILY 07/12/20 07/12/20 ezetimibe 10 mg PO DAILY 07/12/20 07/12/20 fenofibrate 160 mg PO DAILY 07/12/20 07/12/20 ferrous sulfate 325 mg PO DAILY 07/12/20 07/12/20 furosemide 40 mg PO DAILY 07/12/20 07/12/20 gabapentin 400 mg PO TID 07/12/20 07/12/20 hydroxychloroquine [Plaquenil] 200 mg PO BID 07/12/20 07/12/20 loratadine 10 mg PO DAILY 07/12/20 07/12/20 losartan 100 mg PO DAILY 07/12/20 07/12/20 metformin 1,000 mg PO BID 07/12/20 07/12/20 metoclopramide HCl 5 mg PO TID 07/12/20 07/12/20 omeprazole 40 mg PO DAILY 07/12/20 07/12/20 oxybutynin chloride 5 mg PO BEDTIME 07/12/20 07/12/20 rosuvastatin [Crestor] 40 mg PO DAILY 07/12/20 07/12/20 sennosides [senna] 17.2 mg PO BEDTIME 07/12/20 07/12/20 thiamine HCl (vitamin B1) 100 mg PO DAILY 07/12/20 07/12/20 trazodone 50 mg PO BEDTIME PRN 07/12/20 07/12/20 Previous Rx's Medication Instructions Recorded amlodipine 10 mg PO DAILY #30 tab 07/14/20 DS: Summary Hospital Course Hospital Course: Patient was admitted for hypertensive urgency. Her amlodipine 10 mg daily was restarted and her blood pressure became much better. Her symptoms of dizziness and headache resolved. She will be discharged home back on her amlodipine 10 mg. And continue all her other medications. Time Spent with Patient Time attestation: Total time spent providing and/or coordinating discharge services: Discharge coordination time: Greater than 30 minutes Physical Exam Vital Signs: Vital Signs: Last Vital Signs Temp 98 F 07/14/20 11:03 Pulse 105 H 07/14/20 11:03 Resp 20 07/14/20 11:03 BP 141/72 H 07/14/20 11:03 Pulse Ox 96 07/14/20 11:03 Body Mass Index 37.5 General: AO X 3, no acute distress Resp: CTA bilateral CVS: S1,S2,RRR GI: soft, non tender, non distended Neuro: motor grossly intact Psych: appropriate affect DS: Data Data Completed and Pending Labs on day of discharge: Laboratory Results - last 24 hr 07/13/20 07/13/20 07/14/20 16:09 19:30 07:03 POC Glucose 137 H 202 H 153 H 07/14/20 11:06 POC Glucose 123 H Discharge Plan Discharge Patient Disposition: Home, Self-Care Referrals: Marla Henderson MD [Primary Care Provider] - Discharge Medications: New amlodipine 10 mg Tablet 10 mg PO DAILY Qty: 30 RF: 0 Continued Lantus U-100 Insulin 100 unit/mL Solution 10 unit SUBCUT QPM RF: 0 citalopram [Celexa] 10 mg Tablet 10 mg PO DAILY RF: 0 gabapentin 400 mg Capsule 400 mg PO TID RF: 0 cyanocobalamin (vitamin B-12) 1,000 mcg Tablet 1,000 mcg PO DAILY RF: 0 thiamine HCl (vitamin B1) 100 mg Tablet 100 mg PO DAILY RF: 0 ferrous sulfate 325 mg (65 mg iron) Tablet 325 mg PO DAILY RF: 0 metformin 1,000 mg Tablet 1,000 mg PO BID RF: 0 hydroxychloroquine [Plaquenil] 200 mg Tablet 200 mg PO BID RF: 0 oxybutynin chloride 5 mg Tablet 5 mg PO BEDTIME RF: 0 losartan 100 mg Tablet 100 mg PO DAILY RF: 0 atenolol 50 mg Tablet 50 mg PO BID RF: 0 cholecalciferol (vitamin D3) 50 mcg (2,000 unit) Tablet 2,000 unit PO DAILY RF: 0 Xarelto 20 mg Tablet 20 mg PO QPM RF: 0 Trulicity 0.75 mg/0.5 mL Pen Injector 0.75 mg SUBCUT QWEEK RF: 0 baclofen 5 mg Tablet 5 mg PO TID RF: 0 sennosides [senna] 8.6 mg Tablet 17.2 mg PO BEDTIME RF: 0 trazodone 50 mg Tablet 50 mg PO BEDTIME PRN (Reason: Insomnia) RF: 0 rosuvastatin [Crestor] 40 mg Tablet 40 mg PO DAILY RF: 0 acetaminophen [Tylenol] 325 mg Tablet 975 mg PO Q8-10H PRN (Reason: Pain) RF: 0 furosemide 40 mg tablet 40 mg PO DAILY RF: 0 metoclopramide HCl 5 mg tablet 5 mg PO TID RF: 0 docusate sodium [DOK] 100 mg capsule 100 mg PO BID PRN (Reason: constipation) RF: 0 loratadine 10 mg tablet 10 mg PO DAILY RF: 0 ezetimibe 10 mg tablet 10 mg PO DAILY RF: 0 fenofibrate 160 mg tablet 160 mg PO DAILY RF: 0 Toviaz 8 mg tablet extended release 24 hr 8 mg PO DAILY RF: 0 Tresiba FlexTouch U-100 100 unit/mL (3 mL) insulin pen 15 unit subcut DAILY RF: 0 Jardiance 25 mg tablet 25 mg PO QAM RF: 0 omeprazole 40 mg capsule,delayed release(DR/EC) 40 mg PO DAILY RF: 0 escitalopram oxalate 10 mg tablet 10 mg PO DAILY RF: 0 Discontinued tamsulosin 0.4 mg capsule 0.4 mg PO DAILY RF: 0 Discharge Orders: Discharge Order (Routine); Ordered 07/14/20 Ordered By: Yasir Castro Activity on Discharge: As tolerated Stand Alone Forms: Patient Portal Discharge page Care Plan Goals: recoery Health Concerns: htn Plan of Treatment: restart amlodipnie
== END 2020-07-14 12:45 | disposition home or self-care (01) | DRG 305 ==
LOC: HO.ED 07-12 01:44 → HO.S3 07-12 03:24 → HO.IMC 07-13 14:19
PROVIDERS: Internal Medicine; Nurse Practitioner Family; Admitting Provider Hospitalist; Emergency Provider Emergency Medicine; PCP Internal Medicine; Visit Provider Internal Medicine
DX: I16.0 Hypertensive urgency (principal); I50.22 Chronic systolic (congestive) heart failure; I25.10 Atherosclerotic heart disease of native coronary artery without angina pectoris; I13.0 Hypertensive heart and chronic kidney disease with heart failure and stage 1 through stage 4 chronic kidney disease, or unspecified chronic kidney disease; I48.0 Paroxysmal atrial fibrillation; E78.5 Hyperlipidemia, unspecified; Z86.73 Personal history of transient ischemic attack (TIA), and cerebral infarction without residual deficits; I27.20 Pulmonary hypertension, unspecified; E11.22 Type 2 diabetes mellitus with diabetic chronic kidney disease; N18.9 Chronic kidney disease, unspecified; Z20.822 Contact with and (suspected) exposure to COVID-19; Z88.2 Allergy status to sulfonamides; Z88.5 Allergy status to narcotic agent; Z79.01 Long term (current) use of anticoagulants; Z79.899 Other long term (current) drug therapy
CPT/HCPCS: 36415; 70496; 70498; 71045; 80048; 80076; 82947; 83690; 83735; 83880; 84484; 85025; 85610; 85730; 87635; 93005; 93971; 96374; 96376; 99285; 99291; J1940; J2405; Q9967

== ENCOUNTER 2020-07-31 10:23 | Emergency (ER) | payer MEDICARE, SELFPAY ==
--- NOTE | ~2020-07-31 | XR_ITS ---
EXAMINATION: XR CHEST CLINICAL INFORMATION: Lower extreme swelling. COMPARISON: Chest x-ray 07/11/2020 TECHNIQUE: Frontal view of the chest was obtained. FINDINGS: No significant abnormality is noted involving the heart, lungs, mediastinum, bony thorax or soft tissues. XR/XR chest 1V IMPRESSION: Unremarkable chest examination.
--- NOTE | ~2020-07-31 | US_ITS ---
EXAMINATION: US VENOUS ULTRASOUND WITH DOPPLER LOWER EXTREMITY, BILATERAL CLINICAL INFORMATION: Bilateral leg swelling. COMPARISON: Right lower extremity venous study 07/11/2020 and 05/30/2017 TECHNIQUE: Ultrasound of the deep veins is performed from the hip to the calf with compression sonography and color and pulse Doppler assessment. Spectral analysis with color-flow imaging is performed. FINDINGS: RIGHT: There is normal venous compression and respiratory variation and augmented flow. The visualized common femoral vein, superficial femoral vein, profunda femoral vein, popliteal vein, and the trifurcation region shows no evidence of deep venous thrombosis. There is no significant popliteal fossa cyst. LEFT: There is normal venous compression and respiratory variation and augmented flow. The visualized common femoral vein, superficial femoral vein, profunda femoral vein, popliteal vein, and the trifurcation region shows no evidence of deep venous thrombosis. There is no significant popliteal fossa cyst. If the patient's symptoms persist, followup ultrasound in 5 days 7 days might be of value to exclude proximal propagation from a non-visualized calf vein. US/US venous duplex LE BI IMPRESSION: No DVT demonstrated in bilateral lower extremity.
[2020-07-31 10:35] VITALS: BP 144/60; PULSE 73; RESP 20; TEMP 36.7; O2SAT 98; BMI 37.2
--- NOTE | 2020-07-31 11:04 | ECG_ITS ---
Test Reason : LEG SWELLING Blood Pressure : / mmHG Vent. Rate : 063 BPM Atrial Rate : 063 BPM P-R Int : 182 ms QRS Dur : 108 ms QT Int : 434 ms P-R-T Axes : 000 124 164 degrees QTc Int : 444 ms Normal sinus rhythm Lateral infarct , age undetermined Nonspecific ST and T wave abnormality Abnormal ECG When compared with ECG of 11-JUL-2020 18:51, QRS axis Shifted right Referred By: Chiquis Hodges Electronically Signed By:KEAGAN MONACO
--- NOTE | 2020-07-31 11:05 | ED.LOWEXIN ---
HPI - Extremity Injury (Lower) General Chief Complaint: Extremity Injury, Lower Stated Complaint: rt leg swelling.no inj Time Seen by Provider: 07/31/20 11:03 Source: patient and family (Spouse) Mode of arrival: ambulatory Limitations: no limitations History of Present Illness HPI Narrative: 70-year-old female with history of congestive heart failure with preserved ejection fraction, patient on daily Lasix, patient presented to the emergency department after noted gaining 7 lb in the last 3 days with significant swelling to both lower extremities, patient declined any shortness of breath. Patient has been taking her Lasix (40 mg tablets once a day) with a normal urination. Patient used to take 2 tablets a day total of 80 mg daily but was cut down. Patient looking for Dr. cruz to increase her Lasix back to her normal dosage. Related Data Home Medications Medication Instructions Recorded Confirmed Lantus U-100 Insulin 10 unit SUBCUT QPM 07/12/20 07/28/20 Tresiba FlexTouch U-100 15 unit SUBCUT DAILY 07/12/20 07/28/20 Trulicity 0.75 mg SUBCUT QWEEK 07/12/20 07/28/20 Xarelto 20 mg PO QPM 07/12/20 07/12/20 acetaminophen [Tylenol] 975 mg PO Q8-10H PRN 07/12/20 07/28/20 atenolol 50 mg PO BID 07/12/20 07/28/20 baclofen 5 mg PO TID 07/12/20 07/28/20 cholecalciferol (vitamin D3) 2,000 unit PO DAILY 07/12/20 07/28/20 citalopram [Celexa] 10 mg PO DAILY 07/12/20 07/28/20 cyanocobalamin (vitamin B-12) 1,000 mcg PO DAILY 07/12/20 07/28/20 docusate sodium [DOK] 100 mg PO BID PRN 07/12/20 07/28/20 ezetimibe 10 mg PO DAILY 07/12/20 07/28/20 fenofibrate 160 mg PO DAILY 07/12/20 07/28/20 ferrous sulfate 325 mg PO DAILY 07/12/20 07/28/20 furosemide 40 mg PO DAILY 07/12/20 07/28/20 gabapentin 400 mg PO TID 07/12/20 07/28/20 hydroxychloroquine [Plaquenil] 200 mg PO BID 07/12/20 07/28/20 loratadine 10 mg PO DAILY 07/12/20 07/28/20 losartan 100 mg PO DAILY 07/12/20 07/28/20 metformin 1,000 mg PO BID 07/12/20 07/28/20 metoclopramide HCl 5 mg PO TID 07/12/20 07/28/20 omeprazole 40 mg PO DAILY 07/12/20 07/28/20 oxybutynin chloride 5 mg PO BEDTIME 07/12/20 07/28/20 rosuvastatin [Crestor] 40 mg PO DAILY 07/12/20 07/28/20 sennosides [senna] 17.2 mg PO BEDTIME 07/12/20 07/28/20 thiamine HCl (vitamin B1) 100 mg PO DAILY 07/12/20 07/28/20 trazodone 50 mg PO BEDTIME PRN 07/12/20 07/28/20 Previous Rx's Medication Instructions Recorded amlodipine 10 mg PO DAILY #30 tab 07/14/20 escitalopram oxalate 10 mg tablet 10 mg PO DAILY 90 Days #90 tab 07/18/20 empagliflozin 25 mg tablet 25 mg PO QAM #30 tab 07/25/20 Allergies Allergy/AdvReac Type Severity Reaction Status Date / Time sulfamethoxazole Allergy Intermediate RASH Verified 05/09/20 11:00 trimethoprim Allergy Intermediate RASH Verified 05/09/20 11:00 cefdinir Allergy Mild hives Verified 05/09/20 11:00 melatonin Allergy Mild inadequate Verified 05/09/20 11:00 response morphine [Morphine] Allergy Mild ITCHING, Verified 05/09/20 11:00 hives Sulfa (Sulfonamide Allergy Mild hives, Verified 05/09/20 11:00 Antibiotics) itching duloxetine AdvReac Intermediate altered Verified 05/09/20 11:00 behavior betina AdvReac Mild RUNNY NOSE Verified 05/09/20 11:00 mustard AdvReac Mild RUNNY NOSE Verified 04/04/20 11:05 potato [POTATO] AdvReac Mild ITCHY NOSE Verified 04/04/20 11:05 soybean AdvReac Mild RUNNY NOSE Verified 04/04/20 11:05 Review of Systems Review of Systems: All other systems are reviewed and are negative Constitutional: Reports as per HPI and Reports no additional constitutional complaints Eyes: Reports as per HPI and Reports no additional eye complaints Reports system reviewed and no additional complaints, except as documented Cardiovascular: Reports as per HPI and Reports no additional cardiovascular complaints Respiratory: Reports as per HPI and Reports no additional respiratory complaints Gastrointestinal: Reports as per HPI and Reports no additional gastrointestinal complaints Genitourinary: Reports no additional female genitourinary complaints Musculoskeletal: Reports no additional musculoskeletal complaints Skin/Breast: Reports system reviewed and no additional complaints, except as docu Psychiatric: Reports no additional psychiatric complaints Endocrine: Reports no additional endocrine complaints Hematologic/Lymphatic: Reports no additional hematologic/lymphatic complaints Allergic/Immunologic: Reports no additional allergic/immunologic complaints Reports system reviewed and no additional complaints, except as documented and Reports Abnormal speech present [facility] Past Medical History Medical History Atherosclerotic cardiovascular disease Atrial fibrillation Diabetes mellitus Essential hypertension Hospital discharge follow-up Iron deficiency anemia Ischemic stroke Lumbar degenerative disc disease Paroxysmal atrial fibrillation Pulmonary hypertension Pure hypercholesterolemia Thrombus Urge urinary incontinence Surgical History History of partial hysterectomy Hx of cardiac cath Hx of cervical spine surgery Family History Family History Father Rectal cancer Hypertension Arthritis of knee CVD (cardiovascular disease) Mother Hypertension CVD (cardiovascular disease) Myocardial infarction Diabetes Social History Social History Household Members: Spouse Alcohol intake: never Smoking Status: Former smoker Use of substances other than those prescribed or required for medical reasons: No Advance Directives: Yes Advance Directives on File: Yes Advance Directives Date on File: 07/17/20 service: No Current occupational status: retired Physical Exam Vital Signs: Vital Signs: Last Vital Signs Temp 98.1 F 07/31/20 10:35 Pulse 65 07/31/20 12:29 Resp 18 07/31/20 12:29 BP 141/70 H 07/31/20 12:29 Pulse Ox 96 07/31/20 12:29 Body Mass Index 37.2 Vital signs have been reviewed as appeared to be correct. Blood pressure in the high range. Heart rate normal. Respiration rate normal. Temperature normal. Oxygen saturation normal. Appearance: Alert. Oriented X3. No acute distress. Head: Normal external exam. Normocephalic. Atraumatic. No Lala signs noted. No raccoon eyes noted Eyes: PERRLA. EOMI. Conjunctiva and sclera normal. Eyelids normal. ENT: TM's Normal. Pharynx normal. Uvula midline. Moist mucous membranes. No trismus noted. No drooling noted. No muffled voice noted. Neck: Normal inspection. Neck supple. FROM. No adenopathy. Thyroid Normal. No meningeal signs. No neck mass noted. CVS: Normal heart rate and rhythm. Heart sound normal. No murmurs noted. Pulses normal throughout. Respiratory: No respiratory distress. Painless inspiration. Breath sounds normal. No wheezes/rales/rhonchi noted. Chest nontender. No accessory muscle usage noted or decreased air movement noted. Abdomen: Soft and nontender. Bowel sounds normal in all 4 quadrants. No distention noted. No organomegaly noted. No visible injury noted. Back: No CVA tenderness. Full range of motion noted. Skin: Skin warm and dry. Normal skin color. Normal skin turgor. No rashes/lesions/lacerations noted. Extremities: Bilateral +1 pitting edema bilaterally up to the ankle area. Neuro: Oriented X 3. No motor deficit. No sensory deficit. Reflexes normal. Course Course Course Narrative: 70-year-old female history of congestive heart failure presented with increased swelling in the bilateral lower extremities bilaterally, patient had ultrasound bilaterally showed no DVT, labs are unremarkable, cardiac workup was also was unremarkable. Due to increased swelling in lower extremities patient used to take total of 80 mg daily now she is taking 40 mg daily patient was instructed to go back to her old dosage of 80 mg daily patient has an appointment with her primary doctor in 2 days. MDM - Extremity Injury (Lower) Lab Data Attestation: I reviewed the patient's lab results. Result diagrams: 07/31/20 11:16 07/31/20 11:16 Labs: Lab Results 07/31/20 07/31/20 07/31/20 Range/Units 11:16 11:16 11:16 WBC 6.0 (4.8-10.8) X10*3/uL RBC 3.95 L (4.20-5.50) X10*6/uL Hgb 11.1 L (12.0-16.0) g/dl Hct 35.2 L (37-47) % MCV 89.1 (80-98) fL MCH 28.1 (27.0-33.0) pg MCHC 31.5 (31.0-35.0) g/dl RDW 17.7 H (11.0-16.0) % Plt Count 316 (160-400) X10*3/uL MPV 8.8 L (9.4-12.3) fL Immature Gran % (Auto) 0.2 (0.0-0.4) % Neut % (Auto) 61.8 (45-73) % Lymph % (Auto) 22.8 (20-40) % [place] % (Auto) 11.0 (2-11) % Eos % (Auto) 3.0 (0-4) % Baso % (Auto) 1.2 (0-2) % Lymph # (Auto) 1.4 (1.2-4.9) X10*3/uL [place] # (Auto) 0.7 (0.1-1.2) X10*3/uL Eos # (Auto) 0.2 (0.0-0.4) X10*3/uL Baso # (Auto) 0.1 (0.0-0.2) X10*3/uL Abs Immat Gran (auto) 0.01 (0.00-0.03) X10*3/uL Absolute Neuts (auto) 3.7 (2.0-8.3) X10*3/uL Absolute Nucleated RBC 0.000 (0.0-0.012) X10*3/uL Nucleated RBC % (auto) 0.0 (0.0-0.2) /100WBC Sodium 140 (135-145) mmol/L Potassium 4.4 (3.3-5.1) mmol/L Chloride 104 (96-108) mmol/L Carbon Dioxide 28 (22-29) mmol/L Anion Gap 12 (12-20) BUN 25 H D (9-16) mg/dL Creatinine 0.79 (0.5-1.4) mg/dL Estim Creat Clear Calc 70.6 Estimated GFR > 60 Random Glucose 280 H D (60-115) mg/dL Calcium 8.9 D (8.4-10.2) mg/dL Total Bilirubin < 0.2 (0.0-1.0) mg/dL Direct Bilirubin < 0.2 (0.0-0.5) mg/dL AST 18 (5-31) U/L ALT 16 (0-31) U/L Alkaline Phosphatase 63 D (39-117) U/L Troponin I High Sens 5.2 D (<3.5-17.0) ng/L B-Natriuretic Peptide (<100) pg/mL Total Protein 5.9 L D (6.5-8.0) g/dL Albumin 3.6 (3.5-5.0) g/dL Lipase 60 (8-78) U/L Urine Color Urine Appearance Urine pH (5.0-8.0) Ur Specific [place] (1.005-1.025) Urine Protein (NEG-TRACE) MG/DL Urine Glucose (UA) (NEG) MG/DL Urine Ketones (NEG) MG/DL Urine Blood (NEG) Urine Nitrite (NEG) Ur Leukocyte Esterase (NEG) Urine RBC (0) /HPF Urine WBC (0-4) /HPF Ur Squamous Epith Cells /LPF Urine Bacteria /LPF 07/31/20 07/31/20 Range/Units 11:16 11:39 WBC (4.8-10.8) X10*3/uL RBC (4.20-5.50) X10*6/uL Hgb (12.0-16.0) g/dl Hct (37-47) % MCV (80-98) fL MCH (27.0-33.0) pg MCHC (31.0-35.0) g/dl RDW (11.0-16.0) % Plt Count (160-400) X10*3/uL MPV (9.4-12.3) fL Immature Gran % (Auto) (0.0-0.4) % Neut % (Auto) (45-73) % Lymph % (Auto) (20-40) % [place] % (Auto) (2-11) % Eos % (Auto) (0-4) % Baso % (Auto) (0-2) % Lymph # (Auto) (1.2-4.9) X10*3/uL [place] # (Auto) (0.1-1.2) X10*3/uL Eos # (Auto) (0.0-0.4) X10*3/uL Baso # (Auto) (0.0-0.2) X10*3/uL Abs Immat Gran (auto) (0.00-0.03) X10*3/uL Absolute Neuts (auto) (2.0-8.3) X10*3/uL Absolute Nucleated RBC (0.0-0.012) X10*3/uL Nucleated RBC % (auto) (0.0-0.2) /100WBC Sodium (135-145) mmol/L Potassium (3.3-5.1) mmol/L Chloride (96-108) mmol/L Carbon Dioxide (22-29) mmol/L Anion Gap (12-20) BUN (9-16) mg/dL Creatinine (0.5-1.4) mg/dL Estim Creat Clear Calc Estimated GFR Random Glucose (60-115) mg/dL Calcium (8.4-10.2) mg/dL Total Bilirubin (0.0-1.0) mg/dL Direct Bilirubin (0.0-0.5) mg/dL AST (5-31) U/L ALT (0-31) U/L Alkaline Phosphatase (39-117) U/L Troponin I High Sens (<3.5-17.0) ng/L B-Natriuretic Peptide 153 H (<100) pg/mL Total Protein (6.5-8.0) g/dL Albumin (3.5-5.0) g/dL Lipase (8-78) U/L Urine Color YELLOW Urine Appearance CLEAR Urine pH 6.0 (5.0-8.0) Ur Specific [place] 1.015 (1.005-1.025) Urine Protein TRACE (NEG-TRACE) MG/DL Urine Glucose (UA) 100 H (NEG) MG/DL Urine Ketones NEG (NEG) MG/DL Urine Blood TRACE (NEG) Urine Nitrite NEG (NEG) Ur Leukocyte Esterase NEG (NEG) Urine RBC 1-4 (0) /HPF Urine WBC 0 (0-4) /HPF Ur Squamous Epith Cells TRACE /LPF Urine Bacteria NONE /LPF Imaging Data Chest x-ray: Radiologist's impression: Unremarkable chest examination. Venous ultrasound lower extremities: Radiologist's impression: No DVT demonstrated in bilateral lower extremities. ECG Data Interpretation: Normal sinus rhythm at 63 beats per minutes, slight pronation of QRS otherwise unremarkable intervals, no ST-T changes. Discharge Plan Discharge Clinical Impression: Bilateral edema of lower extremity Patient Disposition: Home, Self-Care Instructions: Edema (ED) Additional Instructions: Increase your Lasix daily dosage total of 80 mg daily (2 tablets of 40 mg), please when you see your primary doctor make sure he is aware of that increase. Prescriptions: No Action escitalopram oxalate 10 mg tablet 10 mg PO DAILY 90 Days Qty: 90 RF: 1 empagliflozin [Jardiance] 25 mg tablet 25 mg PO QAM Qty: 30 RF: 5 Lantus U-100 Insulin 100 unit/mL Solution 10 unit SUBCUT QPM RF: 0 citalopram [Celexa] 10 mg Tablet 10 mg PO DAILY RF: 0 gabapentin 400 mg Capsule 400 mg PO TID RF: 0 cyanocobalamin (vitamin B-12) 1,000 mcg Tablet 1,000 mcg PO DAILY RF: 0 thiamine HCl (vitamin B1) 100 mg Tablet 100 mg PO DAILY RF: 0 ferrous sulfate 325 mg (65 mg iron) Tablet 325 mg PO DAILY RF: 0 metformin 1,000 mg Tablet 1,000 mg PO BID RF: 0 hydroxychloroquine [Plaquenil] 200 mg Tablet 200 mg PO BID RF: 0 oxybutynin chloride 5 mg Tablet 5 mg PO BEDTIME RF: 0 losartan 100 mg Tablet 100 mg PO DAILY RF: 0 atenolol 50 mg Tablet 50 mg PO BID RF: 0 cholecalciferol (vitamin D3) 50 mcg (2,000 unit) Tablet 2,000 unit PO DAILY RF: 0 Xarelto 20 mg Tablet 20 mg PO QPM RF: 0 Trulicity 0.75 mg/0.5 mL Pen Injector 0.75 mg SUBCUT QWEEK RF: 0 baclofen 5 mg Tablet 5 mg PO TID RF: 0 sennosides [senna] 8.6 mg Tablet 17.2 mg PO BEDTIME RF: 0 trazodone 50 mg Tablet 50 mg PO BEDTIME PRN (Reason: Insomnia) RF: 0 rosuvastatin [Crestor] 40 mg Tablet 40 mg PO DAILY RF: 0 acetaminophen [Tylenol] 325 mg Tablet 975 mg PO Q8-10H PRN (Reason: Pain) RF: 0 furosemide 40 mg tablet 40 mg PO DAILY RF: 0 metoclopramide HCl 5 mg tablet 5 mg PO TID RF: 0 docusate sodium [DOK] 100 mg capsule 100 mg PO BID PRN (Reason: constipation) RF: 0 loratadine 10 mg tablet 10 mg PO DAILY RF: 0 ezetimibe 10 mg tablet 10 mg PO DAILY RF: 0 fenofibrate 160 mg tablet 160 mg PO DAILY RF: 0 Tresiba FlexTouch U-100 100 unit/mL (3 mL) insulin pen 15 unit subcut DAILY RF: 0 omeprazole 40 mg capsule,delayed release(DR/EC) 40 mg PO DAILY RF: 0 amlodipine 10 mg Tablet 10 mg PO DAILY Qty: 30 RF: 0 Referrals: Marla Henderson MD [Primary Care Provider] - 2 days
[2020-07-31 11:21] LABS: MANUAL DIFF FLAG NO
[2020-07-31 11:23] LABS: Basophils Absolute Auto 0.1 X10*3/uL (0.0-0.2); Basophils Percent Auto 1.2 % (0-2); Eosinophils Absolute Auto 0.2 X10*3/uL (0.0-0.4); Hematocrit 35.2 % (37-47); Hemoglobin 11.1 g/dl (12.0-16.0); Imm Gran Abs Auto 0.01 X10*3/uL (0.00-0.03); Imm Gran Pct Auto 0.2 % (0.0-0.4); Lymphocytes Absolute Auto 1.4 X10*3/uL (1.2-4.9); Lymphocytes Percent Auto 22.8 % (20-40); Mean Corpuscular HGB Conc 31.5 g/dl (31.0-35.0); Mean Corpuscular Hemoglobin 28.1 pg (27.0-33.0); Mean Corpuscular Volume 89.1 fL (80-98); Mean Platelet Volume 8.8 fL (9.4-12.3); Monocytes Absolute Auto 0.7 X10*3/uL (0.1-1.2); Neutrophils Absolute Auto 3.7 X10*3/uL (2.0-8.3); Neutrophils Percent Auto 61.8 % (45-73); Platelet Count 316 X10*3/uL (160-400); Red Blood Count 3.95 X10*6/uL (4.20-5.50); Red Cell Distribution Width 17.7 % (11.0-16.0)
[2020-07-31 11:44] LABS: Alanine Aminotransferase 16 U/L (0-31); Albumin Level 3.6 g/dL (3.5-5.0); Alkaline Phosphatase 63 U/L (39-117); Anion Gap 12 (12-20); Aspartate Amino Transferase 18 U/L (5-31); Bilirubin Direct < 0.2 mg/dL (0.0-0.5); Bilirubin Total < 0.2 mg/dL (0.0-1.0); Blood Urea Nitrogen 25 mg/dL (9-16); Calcium 8.9 mg/dL (8.4-10.2); Carbon Dioxide 28 mmol/L (22-29); Chloride 104 mmol/L (96-108); Creatinine Clr Calc Pharmacy 70.6; Estimated Glomerular Filt Rate > 60; Glucose Random 280 mg/dL (60-115); Lipase 60 U/L (8-78); Potassium 4.4 mmol/L (3.3-5.1); Sodium 140 mmol/L (135-145); Total Protein 5.9 g/dL (6.5-8.0)
[2020-07-31 11:46] LABS: B Type Natriuretic Peptide 153 pg/mL (<100); Troponin-I High Sensitivity 5.2 ng/L (<3.5-17.0)
[2020-07-31 11:49] LABS: Glucose Urine UA 100 MG/DL (NEG); Leukocyte Esterase Urine NEG (NEG); Nitrite Urine NEG (NEG); Specific Gravity - Urine 1.015 (1.005-1.025); Urine Blood TRACE (NEG); Urine Ketones NEG (NEG); Urine Protein TRACE MG/DL (NEG-TRACE)
[2020-07-31 11:50] LABS: Appearance Urine CLEAR; Color Urine YELLOW
[2020-07-31 12:29] VITALS: BP 141/70; PULSE 65; RESP 18; O2SAT 96
--- NOTE | 2020-07-31 12:31 | PC.NURSE ---
us at bedside
[2020-07-31 12:42] LABS: WBC Urine 0 /HPF (0-4)
[2020-07-31 12:43] LABS: Squamous Epithelial Cell Urine TRACE /LPF
--- NOTE | 2020-07-31 13:05 | PC.NURSE ---
pt is currently asleep, respirations even and unlabored.
== END 2020-07-31 14:08 | disposition home or self-care (01) ==
PROVIDERS: Emergency Provider Emergency Medicine; PCP Internal Medicine
DX: R60.0 Localized edema (principal); I11.0 Hypertensive heart disease with heart failure; I50.30 Unspecified diastolic (congestive) heart failure; E11.9 Type 2 diabetes mellitus without complications; D50.9 Iron deficiency anemia, unspecified; I48.0 Paroxysmal atrial fibrillation; Z79.899 Other long term (current) drug therapy; Z79.4 Long term (current) use of insulin
CPT/HCPCS: 36415; 71045; 80048; 80076; 81001; 81003; 83690; 83880; 84484; 85025; 93005; 93970; 99284

== ENCOUNTER → 2020-08-02 10:49 | Outpatient (REF) | payer MEDICARE, SELFPAY ==
--- NOTE | 2020-08-02 10:30 | CA_ITS ---
Transthoracic Echocardiogram Patient (Last, First, Middle): Missy Keenan M Gender: Female Date of : 1950 Age: 70 Procedure Date: 08/02/2020 Procedure Type: Transthoracic Echocardiogram Location: OP Height: 160.02 cm Weight: 97.07 kg BSA: 1.99 m2 Heart Rate: bpm BP: 140 / 70 mmHg Mortgage Underwriter: LAKEISHA Naranjo MD: Geanro Sweet MD Symptoms: I50.30 [id number] VALVULAR HEART DISEASE Study Quality: Fair ECG Rhythm: Sinus Conclusions: - The left ventricular systolic function is normal. The visually estimated ejection fraction is between 60-65%. - Evidence suggests grade II (moderate) diastolic dysfunction. - There is moderate calcification of the aortic valve. There is mild aortic valve stenosis. - There is severe mitral annular calcification. Findings Left Ventricle Normal left ventricular cavity size. There is moderately increased left ventricular wall thickness. The left ventricular systolic function is normal. The visually estimated ejection fraction is between 60-65%. There is no evidence of regional wall motion abnormalities. Evidence suggests grade II (moderate) diastolic dysfunction. Right Ventricle Normal right ventricular cavity size and systolic function. Atria The left atrium is mildly dilated. The right atrium is normal in size. Aortic Valve There is moderate calcification of the aortic valve. There is mild aortic valve stenosis. The peak aortic velocity is 2.32 m/s with a calculated peak gradient of 22 mmHg. The mean gradient is 10 mmHg. The aortic valve area is 1.96 cm2. Mitral Valve There is severe mitral annular calcification. There is trace mitral valve regurgitation. Gradient across the mitral valve slightly increased at 5 mm due to annular calcification, but doubt any significant stenosis. Pulmonic Valve The pulmonic valve was not well visualized. Tricuspid Valve Normal tricuspid valve structure. There is trace tricuspid valve regurgitation. The right ventricular systolic pressure is normal. The pulmonary artery systolic pressure may be underestimated. Great Vessels The aortic annulus, sinuses of valsalva, and asc aorta are normal in size. Venous The inferior vena cava is normal in size and collapses greater than 50% with inspiration. Pericardium/Pleural There is no evidence of pericardial effusion. Prior Study Comparison No significant change compared to prior study dated: 04/22/2019. Measurements 2D Linear Measurements IVSd: 1.27 0.6-0.9/0.6-1.0 cm LVIDd: 4.21 3.9-5.3/4.2-5.9 cm LVIDd Index: 2.12 2.4-3.2/2.2-3.1 cm/m2 LVIDs: 2.62 2.0-3.6 cm LVPWd: 1.24 0.7-1.1 cm Ao Root: 3.50 2.1-3.5 cm LA Diam: 4.10 2.7-3.8/3.0-4.0 cm LAIDs Index: 2.06 1.5-2.3 cm/m2 LV Mass: 238.00 67-162/88-224 g LV Mass Index: 119.60 43-95/49-115 g/m2 LVOT Diam: 2.30 3.0+(-)1.3 cm 2D Systolic Function EF 4C: 59.40 >55% EF 2C: 53.30 >55% Mitral Valve MV VTI: 0.69 MV Pk Jian: 1.93 MV Mn Jian: 1.06 MV Pk Grad: 15.00 MV Mn Grad: 5.00 MV Pk E: 1.45 MV PK A: 1.45 MV Decel Time: 409.00 E/A: 1.00 E'Lateral: 6.20 E'Medial: 4.79 E/E' Med: 30.30 E/E' Lat: 23.40 PHT: 157.00 MVA PHT: 1.40 MVA Continuity: 1.42 Decel [place]: 2.84 Aortic Valve AoV Pk Jian: 2.32 AoV Mn Jian: 1.49 AoV VTI: 0.50 AoV Pk Grad: 22.00 Aov Mn Grad: 10.00 ANTONIO Cont.VTI: 1.96 LVOT LVOT Pk Jian: 0.84 LVOT Mn Jian: 0.62 LVOT VTI: 0.24 LVOT Pk Grad: 3.00 LVOT Mn Grad: 2.00 LVOT Diam: 2.30 LVOT Area: 4.15 Diastolic Function MV Pk E: 1.45 MV Pk A: 1.45 E/A: 1.00 E'Medial: 4.79 E/E' Med: 30.30 E' Laterial: 6.20 E/E' Lat: 23.40 Great Vessels Aorta Ao Root-2D: 3.50 2.0-3.7 cm Ao Asc: 3.60 2.1-3.4 cm Ao Arch: 2.70 Updated in Other Vendor System with Status of Final Genaro Sweet MD electronically signed on 08/03/2020 11:42:20 AM with status of Final
== END ==
LOC: HO.CARD 10:49
PROVIDERS: Visit Provider Internal Medicine
DX: I50.30 Unspecified diastolic (congestive) heart failure (principal); I38 Endocarditis, valve unspecified
CPT/HCPCS: 93306

== ENCOUNTER → 2020-08-21 13:15 | Outpatient (BNVA) | payer MEDICARE, SELFPAY | PROVIDERS: PCP Internal Medicine; Visit Provider Internal Medicine | DX: I25.10 Atherosclerotic heart disease of native coronary artery without angina pectoris (principal); I48.0 Paroxysmal atrial fibrillation; I50.32 Chronic diastolic (congestive) heart failure; I63.9 Cerebral infarction, unspecified; I27.20 Pulmonary hypertension, unspecified; I10 Essential (primary) hypertension; E78.5 Hyperlipidemia, unspecified | CPT/HCPCS: 99212 ==

== ENCOUNTER → 2020-09-18 08:05 | Outpatient (BNVA) | payer MEDICARE, SELFPAY | PROVIDERS: PCP Internal Medicine; Visit Provider Nurse Practitioner Family | DX: M47.22 Other spondylosis with radiculopathy, cervical region (principal); M54.16 Radiculopathy, lumbar region; M48.00 Spinal stenosis, site unspecified | CPT/HCPCS: 99202 ==

== ENCOUNTER → 2020-10-04 08:25 | Outpatient (BNVA) | payer MEDICARE, SELFPAY | PROVIDERS: PCP Internal Medicine; Visit Provider Nurse Practitioner Family | DX: M47.22 Other spondylosis with radiculopathy, cervical region (principal); M54.16 Radiculopathy, lumbar region | CPT/HCPCS: 99212 ==

== ENCOUNTER → 2020-10-05 07:55 | Outpatient (BNVA) | payer MEDICARE, SELFPAY | PROVIDERS: PCP Internal Medicine; Visit Provider Nurse Practitioner Gerontology | DX: E11.65 Type 2 diabetes mellitus with hyperglycemia (principal); E11.29 Type 2 diabetes mellitus with other diabetic kidney complication; E11.42 Type 2 diabetes mellitus with diabetic polyneuropathy; R80.9 Proteinuria, unspecified; I10 Essential (primary) hypertension; E78.5 Hyperlipidemia, unspecified; E66.09 Other obesity due to excess calories | CPT/HCPCS: 82947; 99212 ==

== ENCOUNTER 2020-10-12 14:19 | Outpatient (REF) | payer MEDICARE, SELFPAY ==
--- NOTE | ~2020-10-12 | MR_ITS ---
MR LUMBAR SPINE WITHOUT CONTRAST CLINICAL INFORMATION: Lumbar region radiculopathy. COMPARISON: Lumbar spine MRI April 07, 2015. TECHNIQUE: MRI of the lumbar spine was obtained using routine sequences without contrast. FINDINGS: There is transitional anatomy. For the purposes of this report, there are hypoplastic ribs at the lowermost thoracic type segment and L5 is considered to be sacralized, sharing a nearly completely developed intervertebral disc with S1. This is the same counting system used as the previous study. Please correlate with plain films prior to any percutaneous or surgical intervention. There is progressive grade 1 degenerative anterolisthesis of L4 on L5 and L3 on L4. The vertebral body heights are maintained. Progressive moderate disc volume loss at L3-L4 and mild disc volume loss at L4-L5. There Modic type I endplate signal changes at L1-L2, L2-L3, and L3-L4. There is no additional bone marrow edema. There are no acute fractures. Conus terminates at the L1 level. There are multilevel endplate osteophytes. There is bilateral paraspinal muscular atrophy. Extrarenal pelvises bilaterally. There is sigmoid diverticulosis. L1-L2: There is a new right paracentral/right lateral disc protrusion on image 3 of series 7 that compresses the traversing right L2 nerve root within the right subarticular zone and that results in severe right foraminal stenosis with compression of the exiting right L1 nerve root. L2-L3: Diffuse annular disc bulge and moderate bilateral facet arthropathy. There is no central canal stenosis. There is mild to moderate left and mild right foraminal encroachment. Findings are unchanged. L3-L4: There is a diffuse annular disc bulge the superimposed shallow central disc protrusion and there is severe bilateral facet arthropathy and ligamentum flavum thickening. These findings in concert result in worsening moderate central canal stenosis, bilateral subarticular zone stenosis with mass effect on the traversing L4 nerve roots bilaterally, as well as severe left and moderate right foraminal stenosis with mass effect on the exiting left greater than right L3 nerve roots. L4-L5: There is grade 1 degenerative anterolisthesis. Severe bilateral facet arthropathy and ligamentum flavum thickening. These findings in concert result in right greater than left subarticular zone stenosis with mass effect on the traversing right greater than left L5 nerve roots as well as severe right and moderate to severe left foraminal stenosis with mass effect on the exiting right greater than left L4 nerve roots. L5-S1: At the transitional level, there is a diffuse disc osteophyte complex and there is bilateral facet arthropathy. Congenitally conjoined left L5-S1 nerve root. No central canal stenosis and no foraminal stenosis. MR/MR lumbar spine wo con IMPRESSION: - There is transitional anatomy. For the purposes of this report, there are hypoplastic ribs at the lowermost thoracic type segment and L5 is considered to be sacralized, sharing a nearly completely developed intervertebral disc with S1. This is the same counting system used as the previous study. Please correlate with plain films prior to any percutaneous or surgical intervention. - At L1-L2, there is a new right paracentral/right lateral disc protrusion on image 3 of series 7 that compresses the traversing right L2 nerve root within the right subarticular zone and that results in severe right foraminal stenosis with compression of the exiting right L1 nerve root. - At L3-L4, progressive advanced multifactorial degenerative changes result in worsening moderate central canal stenosis, bilateral subarticular zone stenosis with mass effect on the traversing L4 nerve roots bilaterally, as well as severe left and moderate right foraminal stenosis with mass effect on the exiting left greater than right L3 nerve roots. - At L4-L5, grade 1 degenerative anterolisthesis and advanced multifactorial degenerative changes result in right greater than left subarticular zone stenosis with mass effect on the traversing right greater than left L5 nerve roots as well as severe right and moderate to severe left foraminal stenosis with mass effect on the exiting right greater than left L4 nerve roots. The previously seen right paracentral disc protrusion at this level has significantly decreased in size. - There is paraspinal muscular atrophy bilaterally.
== END 2020-10-12 14:20 | disposition home or self-care (01) ==
LOC: HO.MRI 14:19
PROVIDERS: Visit Provider Anesthesiology
DX: M54.16 Radiculopathy, lumbar region (principal)
CPT/HCPCS: 72148

== ENCOUNTER → 2020-10-17 15:15 | Outpatient (BNVA) | payer MEDICARE, SELFPAY | PROVIDERS: PCP Internal Medicine; Visit Provider Nurse Practitioner Family | DX: M47.22 Other spondylosis with radiculopathy, cervical region (principal); M47.27 Other spondylosis with radiculopathy, lumbosacral region; M48.00 Spinal stenosis, site unspecified | CPT/HCPCS: Q3014 ==

== ENCOUNTER 2020-11-09 09:02 | Outpatient (REF) | payer MEDICARE, SELFPAY ==
[2020-11-09 10:08] LABS: MANUAL DIFF FLAG NO
[2020-11-09 10:18] LABS: Basophils Absolute Auto 0.1 X10*3/uL (0.0-0.2); Basophils Percent Auto 0.9 % (0-2); Eosinophils Absolute Auto 0.2 X10*3/uL (0.0-0.4); Eosinophils Percent Auto 3.9 % (0-4); Hematocrit 37.8 % (37-47); Hemoglobin 11.8 g/dl (12.0-16.0); Imm Gran Abs Auto 0.01 X10*3/uL (0.00-0.03); Imm Gran Pct Auto 0.2 % (0.0-0.4); Lymphocytes Absolute Auto 1.8 X10*3/uL (1.2-4.9); Lymphocytes Percent Auto 32.6 % (20-40); Mean Corpuscular HGB Conc 31.2 g/dl (31.0-35.0); Mean Corpuscular Volume 89.6 fL (80-98); Monocytes Absolute Auto 0.6 X10*3/uL (0.1-1.2); Neutrophils Absolute Auto 2.8 X10*3/uL (2.0-8.3); Neutrophils Percent Auto 51.4 % (45-73); Platelet Count 394 X10*3/uL (160-400); Red Blood Count 4.22 X10*6/uL (4.20-5.50); Red Cell Distribution Width 15.2 % (11.0-16.0); White Blood Count 5.4 X10*3/uL (4.8-10.8)
[2020-11-09 11:14] LABS: Alanine Aminotransferase 16 U/L (0-31); Albumin Level 4.1 g/dL (3.5-5.0); Alkaline Phosphatase 57 U/L (39-117); Anion Gap 13 (12-20); Aspartate Amino Transferase 24 U/L (5-31); Bilirubin Total 0.5 mg/dL (0.0-1.0); Blood Urea Nitrogen 29 mg/dL (9-16); Calcium 9.8 mg/dL (8.4-10.2); Carbon Dioxide 27 mmol/L (22-29); Chloride 105 mmol/L (96-108); Cholesterol 121 mg/dL; Estimated Glomerular Filt Rate 56; Glucose Fasting 141 mg/dL (60-99); HDL Cholesterol 56 mg/dL; Iron 63 mcg/dL (30-160); LDL Cholesterol Calculated 48 mg/dl; Percent Iron Saturation 17 % (15-50); Potassium 4.7 mmol/L (3.3-5.1); Sodium 140 mmol/L (135-145); Total Iron Binding Capacity 365 mcg/dL (228-428); Total Protein 6.5 g/dL (6.5-8.0); Triglycerides 88 mg/dL; Unsaturated Iron Binding 302 ug/dL
[2020-11-09 11:18] LABS: Glucose Urine UA >=1000 MG/DL (NEG); Leukocyte Esterase Urine NEG (NEG); Nitrite Urine NEG (NEG); Urine Blood NEG (NEG); Urine Ketones NEG (NEG); Urine Protein TRACE MG/DL (NEG-TRACE)
[2020-11-09 11:23] LABS: Ferritin 101 ng/mL (10-250)
[2020-11-09 11:32] LABS: Appearance Urine CLEAR; Color Urine YELLOW; Creatinine Urine 49.19 mg/dL; Microalbum/Creatinine Ratio Ur 382.1 ug/mg cr
[2020-11-09 12:55] LABS: Bacteria Urine TRACE /LPF; RBC Urine 0-2 /HPF (0); WBC Urine 0-2 /HPF (0-4)
[2020-11-13 13:37] LABS: Vitamin D 25-OH, D2 11 ng/mL; Vitamin D 25-OH, D3 31 ng/mL; Vitamin D 25-OH, Total 42 ng/mL (30-100)
== END 2020-11-09 09:03 | disposition home or self-care (01) ==
LOC: HO.LAB 09:02
PROVIDERS: PCP Internal Medicine; Referring Provider Internal Medicine; Visit Provider Internal Medicine Medical Oncology
DX: D47.3 Essential (hemorrhagic) thrombocythemia (principal); D50.9 Iron deficiency anemia, unspecified; D64.9 Anemia, unspecified; I48.0 Paroxysmal atrial fibrillation; E11.65 Type 2 diabetes mellitus with hyperglycemia; E78.5 Hyperlipidemia, unspecified; E11.9 Type 2 diabetes mellitus without complications; R30.0 Dysuria; E55.9 Vitamin D deficiency, unspecified; Z79.4 Long term (current) use of insulin
CPT/HCPCS: 36415; 80053; 80061; 81001; 81003; 82043; 82306; 82728; 83540; 85025

== ENCOUNTER 2020-11-22 11:12 | Outpatient (REF) | payer MEDICARE, SELFPAY ==
--- NOTE | ~2020-11-22 | XR_ITS ---
EXAMINATION: XR LUMBOSACRAL SPINE WITH OBLIQUES CLINICAL INFORMATION: Lower back pain. Question instability. COMPARISON: Lumbar spine MRI dated 10/12/2020. TECHNIQUE: AP, lateral, coned down, flexion, and extension views of the lumbar spine. FINDINGS: Redemonstration of transitional anatomy. Again the inferior-most lumbar-appearing vertebrae will be considered L5, which is partially sacralized in keeping with the prior MRI report. Grade 1 anterolisthesis of L3 on L4 and L4 on L5 appears unchanged when compared to the prior MRI. No significant change in alignment with flexion or extension. No acute fracture. No loss of vertebral body height. Prominent multilevel loss of intervertebral disc height with endplate osteophytes, most severe at L3-L4. Prominent multilevel bilateral facet arthropathy. Right upper quadrant surgical clips. Atherosclerotic calcifications. XR/XR lumbar spine 4V min IMPRESSION: 1. Transitional anatomy with lumbarization of L5, consistent with the labeling on the recent MRI. 2. Anterolisthesis of L3 on L4 and L4-L5 without significant change upon flexion or extension. 3. Redemonstration of multilevel degenerative disc disease and bilateral facet arthropathy.
== END 2020-11-22 11:13 | disposition home or self-care (01) ==
LOC: HO.XRAY 11:12
PROVIDERS: PCP Internal Medicine; Referring Provider Physician Assistant; Visit Provider Anesthesiology
DX: M47.22 Other spondylosis with radiculopathy, cervical region (principal); M47.27 Other spondylosis with radiculopathy, lumbosacral region; M48.00 Spinal stenosis, site unspecified
CPT/HCPCS: 72110; Q3014

== ENCOUNTER 2020-11-28 09:14 | Emergency (ER) | payer MEDICARE, SELFPAY ==
--- NOTE | ~2020-11-28 | XR_ITS ---
EXAMINATION: XR ANKLE, RIGHT XR FOOT, RIGHT CLINICAL INFORMATION: Fall, trauma, pain COMPARISON: None TECHNIQUE: 3 views right ankle, 2 views right foot, and a combined large [id number] lateral projection of the ankle and foot are obtained for a total of 6 views. FINDINGS: There is soft tissue swelling overlying the lateral malleolus. There is a questionable fine linear cortical avulsion at tip lateral malleolus. Otherwise, the malleoli appear intact and the ankle mortise is symmetric. The talar dome shows no osteochondral lesion. The subtalar joint is normal. The retrocalcaneal recess is preserved. There is bulky plantar calcaneal spur and small posterior calcaneal spur. Calcification of the distal vasculature represents atherosclerotic changes. Forefoot show no fracture or dislocation. There is mild dorsal spurring mid foot. There is mild hallux valgus and bunion at medial first metatarsal head. Variable degenerative changes involve the digits. XR/XR foot RT 2V IMPRESSION: 1. Lateral ankle soft tissue swelling. Possible fine linear cortical avulsion tip lateral malleolus. Otherwise, no visible fracture or dislocation. 2. Calcaneal spurs. Mild spurring dorsal midfoot, hallux valgus, bunion, and degenerative changes toes.
--- NOTE | ~2020-11-28 | XR_ITS ---
EXAMINATION: XR CHEST CLINICAL INFORMATION: Fall, trauma, pain COMPARISON: Chest radiographs 07/31/2020, 07/11/2020 TECHNIQUE: 2 views of the chest were obtained. FINDINGS: There is no pneumothorax, pleural reaction, airspace consolidation, or effusion. No hyperinflation. The heart is normal in size and the hilar and mediastinal contours are normal. No visible acute bony abnormality. XR/XR chest 2V IMPRESSION: Unremarkable examination.
--- NOTE | ~2020-11-28 | XR_ITS ---
EXAMINATION: XR ANKLE, RIGHT XR FOOT, RIGHT CLINICAL INFORMATION: Fall, trauma, pain COMPARISON: None TECHNIQUE: 3 views right ankle, 2 views right foot, and a combined large [id number] lateral projection of the ankle and foot are obtained for a total of 6 views. FINDINGS: There is soft tissue swelling overlying the lateral malleolus. There is a questionable fine linear cortical avulsion at tip lateral malleolus. Otherwise, the malleoli appear intact and the ankle mortise is symmetric. The talar dome shows no osteochondral lesion. The subtalar joint is normal. The retrocalcaneal recess is preserved. There is bulky plantar calcaneal spur and small posterior calcaneal spur. Calcification of the distal vasculature represents atherosclerotic changes. Forefoot show no fracture or dislocation. There is mild dorsal spurring mid foot. There is mild hallux valgus and bunion at medial first metatarsal head. Variable degenerative changes involve the digits. XR/XR ankle RT 2V IMPRESSION: 1. Lateral ankle soft tissue swelling. Possible fine linear cortical avulsion tip lateral malleolus. Otherwise, no visible fracture or dislocation. 2. Calcaneal spurs. Mild spurring dorsal midfoot, hallux valgus, bunion, and degenerative changes toes.
--- NOTE | 2020-11-28 10:03 | ED_ITS ---
HPI - General Adult General Chief complaint: Fall <Rajwinder Deleon NP - Last Filed: 11/28/20 12:00> Stated complaint: Leg Injury <Rajwinder Deleon NP - Last Filed: 11/28/20 12:00> Time Seen by Provider: 11/28/20 09:54 <Rajwinder Deleon NP - Last Filed: 11/28/20 12:00> Source: patient and family <Rajwinder Deleon NP - Last Filed: 11/28/20 12:00> Mode of arrival: ambulatory <Rajwinder Deleon NP - Last Filed: 11/28/20 12:00> Limitations: no limitations <Rajwinder Deleon NP - Last Filed: 11/28/20 12:00> History of Present Illness HPI narrative: 70-year-old female with past medical history of CVA on June 06, 2020, AFib on Xarelto, diabetes type 2 non-insulin dependent, hypertension, iron deficiency anemia, lumbar disc degeneration, hypercholesterolemia, coronary artery disease, CHF with preserved ejection fraction, CKD here with complaints of right ankle and foot pain after an inversion injury which occurred last evening. Patient tells me she was getting into her bed when her right foot got caught causing an inversion injury and her to fall on her right side onto the bed. There was no head injury or loss of consciousness. Patient is complaining of right foot, ankle pain and upper bilateral shoulder pain. No headache, dizziness, vision changes, abdominal pain, vomiting, diarrhea. Patient is ambulatory with a limp <Rajwinder Deleon NP - Last Filed: 11/28/20 12:00> Related Data Home medications: Home Medications Medication Instructions Recorded Confirmed hydroxychloroquine 200 mg tablet 200 mg PO BID tab 08/02/20 12/19/20 (Plaquenil) Previous Rx's Medication Instructions Recorded amlodipine 10 mg tablet 10 mg PO DAILY 90 Days #90 tab 08/25/20 atenolol 50 mg tablet 50 mg PO BID 90 Days #180 tab 08/25/20 cholecalciferol (vitamin D3) 50 2,000 unit PO DAILY 90 Days #90 tab 08/25/20 mcg (2,000 unit) tablet cyanocobalamin (vitamin B-12) 1,000 mcg PO DAILY 90 Days #90 tab 08/25/20 1,000 mcg tablet docusate sodium 100 mg capsule 100 mg PO BID PRN 90 Days #180 cap 08/25/20 (DOK) empagliflozin 25 mg tablet 25 mg PO QAM 90 Days #90 tab 08/25/20 (Jardiance) furosemide 40 mg tablet 40 mg PO BID 90 Days #180 tab 08/25/20 losartan 100 mg tablet 100 mg PO DAILY 90 Days #90 tab 08/25/20 metformin 1,000 mg tablet 1,000 mg PO BID 90 Days #180 tab 08/25/20 rosuvastatin 40 mg tablet (Crestor) 40 mg PO DAILY 90 Days #90 tab 08/25/20 sennosides 8.6 mg tablet (senna) 17.2 mg PO BEDTIME 90 Days #180 tab 08/25/20 nystatin 100,000 unit/gram topical 1 appl TOPICAL BID 30 Days #120 g 09/15/20 powder dulaglutide 3 mg/0.5 mL 3 mg SUBCUT QWEEK 28 Days #2 ml 10/05/20 subcutaneous pen injector (Trulicity) insulin degludec 100 unit/mL (3 15 unit SUBCUT DAILY 90 Days #15 ml 10/12/20 mL) subcutaneous pen (Tresiba FlexTouch U-100 insulin) fenofibrate 160 mg tablet 160 mg PO DAILY 90 Days #90 tab 10/30/20 ferrous sulfate 325 mg (65 mg 325 mg PO DAILY 90 Days #90 tab 11/07/20 iron) tablet fluticasone propionate 50 1 spray INTRANASAL DAILY 90 Days 11/07/20 mcg/actuation nasal #16 g spray,suspension gabapentin 400 mg capsule 400 mg PO TID 90 Days #270 cap 11/07/20 loratadine 10 mg tablet (Allergy 10 mg PO DAILY PRN 90 Days #90 tab 11/07/20 Relief (loratadine)) omeprazole 40 mg capsule,delayed 40 mg PO DAILY #90 cap 11/07/20 release oxybutynin chloride 5 mg tablet 5 mg PO DAILY 90 Days #90 tab 11/07/20 rivaroxaban 20 mg tablet (Xarelto) 20 mg PO QPM 90 Days #90 tab 11/07/20 thiamine mononitrate (vit B1) 100 100 mg PO DAILY 90 Days #90 tab 11/07/20 mg tablet pen needle, diabetic 32 gauge x #50 ea 11/09/20 (BD Meghan 2nd Gen Pen Needle) cyclobenzaprine 5 mg tablet 5 mg PO TID PRN #10 tab 11/28/20 blood sugar diagnostic (OneTouch #100 ea 12/16/20 Verio test strips) oxycodone 5 mg tablet 5 mg PO Q6H PRN 30 Days #120 tab 12/22/20 enoxaparin 100 mg/mL subcutaneous 100 mg SUBCUT Q12H #6 ml 12/25/20 syringe (Lovenox) oxymetazoline 0.05 % nasal spray 2 spray INTRANASAL Q12H PRN 3 Days 12/30/20 (Afrin (oxymetazoline)) #22 ml escitalopram oxalate 10 mg tablet 10 mg PO DAILY 90 Days #90 tab 01/03/21 (Lexapro) trazodone 100 mg tablet 100 mg PO BEDTIME PRN 90 Days #90 01/03/21 tab <Rajwinder Deleon NP - Last Filed: 11/28/20 12:00> Allergies/adverse reactions: Allergies Allergy/AdvReac Type Severity Reaction Status Date / Time sulfamethoxazole Allergy Intermediate RASH Verified 01/02/21 09:31 trimethoprim Allergy Intermediate RASH Verified 01/02/21 09:31 cefdinir Allergy Mild hives Verified 01/02/21 09:31 morphine [Morphine] Allergy Mild ITCHING, Verified 01/02/21 09:31 hives duloxetine AdvReac Intermediate altered Verified 01/02/21 09:31 behavior betina AdvReac Mild RUNNY NOSE Verified 01/02/21 09:31 mustard AdvReac Mild RUNNY NOSE Verified 01/02/21 09:31 potato [POTATO] AdvReac Mild ITCHY NOSE Verified 01/02/21 09:31 soybean AdvReac Mild RUNNY NOSE Verified 01/02/21 09:31 <Rajwinder Deleon NP - Last Filed: 11/28/20 12:00> Review of Systems Review of Systems: Yes all other systems are reviewed and are negative <Rajwinder Deleon NP - Last Filed: 11/28/20 12:00> Constitutional: Constitutional: Reports no additional constitutional complaints, Denies body ache(s), Denies chills, Denies fever(s), Denies headache(s) and Denies weakness <Rajwinder Deleon NP - Last Filed: 11/28/20 12:00> Eyes: Eyes: Reports no additional eye complaints and Denies change in vision <Rajwinder Deleon NP - Last Filed: 11/28/20 12:00> ENT: Reports system reviewed and no additional complaints, except as documented, Denies dizziness, Denies headache(s), Denies nasal congestion, Denies nasal discharge and Denies neck pain <Rajwinder Deleon NP - Last Filed: 11/28/20 12:00> Cardiovascular: Cardiovascular: Reports no additional cardiovascular complaints, Denies chest pain, Denies leg edema and Denies dyspnea <Rajwinder Deleon NP - Last Filed: 11/28/20 12:00> Respiratory: Respiratory: Reports no additional respiratory complaints, Denies cough and Denies dyspnea <Rajwinder Deleon NP - Last Filed: 11/28/20 12:00> Gastrointestinal: Gastrointestinal: Reports no additional gastrointestinal complaints, Denies abdominal pain, Denies diarrhea, Denies nausea and Denies vomiting <Rajwinder Deleon NP - Last Filed: 11/28/20 12:00> Genitourinary: Genitourinary: Reports no additional female genitourinary complaints and Denies urinary incontinence <Rajwinder Deleon NP - Last Filed: 11/28/20 12:00> Musculoskeletal: Musculoskeletal: Reports no additional musculoskeletal complaints, Denies back pain, Reports arthralgias, Denies joint swelling, Denies neck pain, Denies numbness and Denies tingling <Rajwinder Deleon NP - Last Filed: 11/28/20 12:00> Integumentary/Breasts: Skin/Breast: Reports system reviewed and no additional complaints, except as docu and Denies rash <Rajwinder Deleon NP - Last Filed: 11/28/20 12:00> Neurologic: Reports system reviewed and no additional complaints, except as documented, Denies Abnormal speech present, Denies dizziness, Denies headache(s), Denies numbness, Denies tingling and Denies weakness <Rajwinder Deleon NP - Last Filed: 11/28/20 12:00> [facility] Past Medical History Attestation statement: The following information was validated with the patient. <Rajwinder Deleon NP - Last Filed: 11/28/20 12:00> Source: old records reviewed and nursing notes reviewed <Rajwinder Deleon NP - Last Filed: 11/28/20 12:00> Medical History: Medical History Atherosclerotic cardiovascular disease Chronic heart failure with preserved ejection fraction (HFpEF) Diabetes mellitus Diabetes type 2, uncontrolled Dyslipidemia Essential hypertension Hospital discharge follow-up Iron deficiency anemia Ischemic stroke Lumbar degenerative disc disease Obesity due to excess calories Other and unspecified hyperlipidemia Paroxysmal atrial fibrillation Proteinuria Pulmonary hypertension Pure hypercholesterolemia Thrombus 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 Urge urinary incontinence <Rajwinder Deleon NP - Last Filed: 11/28/20 12:00> Surgical History: Surgical History History of partial hysterectomy Hx of cardiac cath Hx of cervical spine surgery <Rajwinder Deleon NP - Last Filed: 11/28/20 12:00> Family History Family History: Family History Father Rectal cancer Hypertension Arthritis of knee CVD (cardiovascular disease) Mother Hypertension CVD (cardiovascular disease) Myocardial infarction Diabetes <Rajwinder Deleon NP - Last Filed: 11/28/20 12:00> Social History Social History: Social History Household Members: Spouse Housing: House Do you presently have visiting nurse or other home services: Yes (was receiving PT services) Alcohol intake: never Patient Tobacco Use Status: Never used Tobacco e-Cigarette/Vaping Use: Never Used Second Hand Smoke Exposure: No Advance Directives Date on File: 07/17/20 service: No Current occupational status: retired Current occupation: Lt handed <Rajwinder Deleon NP - Last Filed: 11/28/20 12:00> Physical Exam Vital Signs: Vital Signs: Last Vital Signs Temp 98 F 11/28/20 10:11 Pulse 59 11/28/20 10:11 Resp 18 11/28/20 10:11 BP 110/70 11/28/20 10:11 Pulse Ox 97 11/28/20 10:11 Body Mass Index 42.9 <Rajwinder Deleon NP - Last Filed: 11/28/20 12:00> Vital Signs: Last Vital Signs Temp 98 F 11/28/20 10:11 Pulse 59 11/28/20 10:11 Resp 18 11/28/20 10:11 BP 110/70 11/28/20 10:11 Pulse Ox 97 11/28/20 10:11 Body Mass Index 42.9 <Maximiliano Schmitz MD - Last Filed: 01/04/21 13:53> Const: General: cooperative, healthy appearing, comfortable and no acute distress <Rajwinder Deleon NP - Last Filed: 11/28/20 12:00> Orientation/consciousness: patient oriented x3 <Rajwinder Deleon NP - Last Filed: 11/28/20 12:00> Limitations: no limitations <Rajwinder Deleon NP - Last Filed: 11/28/20 12:00> HENMT: Head: Yes normal to inspection <Rajwinder Deleon NP - Last Filed: 11/28/20 12:00> Ears: hearing grossly normal bilaterally <Rajwinder Deleon NP - Last Filed: 11/28/20 12:00> General nose exam: Normal external nose present <BENNY Chavez Last Filed: 11/28/20 12:00> Face and sinus: Yes normal facial exam <Rajwinder Deleon NP - Last Filed: 11/28/20 12:00> Mouth: Normal oral and palatal mucosa present <Rajwinder Deleon NP - Last Filed: 11/28/20 12:00> Throat: Yes posterior oropharynx normal <Rajwinder Deleon NP - Last Filed: 11/28/20 12:00> Eyes: General: appearance normal, both eyes and all related structures <BENNY Chavez Last Filed: 11/28/20 12:00> Pupils: Equal, round and reactive pupils present <BENNY Chavez Last Filed: 11/28/20 12:00> Neck: Neck: Yes normal visual inspection <Rajwinder Deleon NP - Last Filed: 11/28/20 12:00> Chest: Other: Tenderness to the bilateral trapezius and anterior shoulders and over the anterior chest wall. No obvious crepitus, deformity. Full range of motion of the upper extremities. <Rajwinder Deleon NP - Last Filed: 11/28/20 12:00> Chest palpation & inspection: normal inspection of the chest <Rajwinder Deleon NP - Last Filed: 11/28/20 12:00> Resp: Effort & Inspection: normal respiratory effort <Rajwinder Deleon NP - Last Filed: 11/28/20 12:00> Auscultation: clear to auscultation bilaterally <Rajwinder Deleon NP - Last Filed: 11/28/20 12:00> Cardio: Rate: regular rate <Rajwinder Deleon NP - Last Filed: 11/28/20 12:00> Rhythm: regular rhythm <Rajwinder Deleon NP - Last Filed: 11/28/20 12:00> Peripheral pulses: Peripheral pulses 2+ throughout <Rajwinder Deleon NP - Last Filed: 11/28/20 12:00> GI: Inspection: Yes normal to inspection <Rajwinder Deleon NP - Last Filed: 11/28/20 12:00> Palpation (GI): Soft to palpation and nontender <Rajwinder Deleon NP - Last Filed: 11/28/20 12:00> Auscultation: normal bowel sounds <Rajwinder Deleon NP - Last Filed: 11/28/20 12:00> Back/Spine/Pelvis: Thoracic/Lumbar Spine: thoracic and lumbar spine normal to inspection <Rajwinder Deleon NP - Last Filed: 11/28/20 12:00> Skin: General skin exam: no rashes or lesions noted <Rajwinder Deleon NP - Last Filed: 11/28/20 12:00> Neuro: General: patient oriented x3, no focal motor deficits and normal sensation to monofilament <Rajwinder Deleon NP - Last Filed: 11/28/20 12:00> Cranial nerves: Yes Equal, round and reactive pupils present <Rajwinder Deleon NP - Last Filed: 11/28/20 12:00> Cognition (Neuro): normal cognition <Rajwinder Deleon NP - Last Filed: 11/28/20 12:00> Speech: No Abnormal speech present <Rajwinder Deleon NP - Last Filed: 11/28/20 12:00> Gait exam (Neuro): Normal gait present <Rajwinder Deleon NP - Last Filed: 11/28/20 12:00> Motor exam (neuro): 5/5 motor strength present throughout <Rajwinder Deleon NP - Last Filed: 11/28/20 12:00> Extrem: Other: Tenderness over the right lateral ankle with mild swelling. Tenderness over the dorsal aspect on the lateral side of the right foot. Full range of motion. Palpable pulses. Negative Sommers test. <Rajwinder Deleon NP - Last Filed: 11/28/20 12:00> General: Yes normal to inspection <Rajwinder Deleon NP - Last Filed: 11/28/20 12:00> Course Course Course Narrative: 70-year-old female here with complaints of right ankle and foot pain after an inversion injury yesterday. Also complaining of some upper bilateral shoulder and chest discomfort from the fall. There was no head injury or loss of consciousness. Normal neuro exam. Hemodynamically stable. Will check x- rays of the right foot and ankle and chest. 1100-x-ray show an avulsion fracture of the right lateral malleolus. Spoke to Ayala NATION from Orthopedics. Recommended boot and follow-up with Orthopedics in 7-10 days. All other x-ray show no acute finding. Reviewed worrisome signs and symptoms with patient when to return to the emergency department. Comfortable discharge home. <Rajwinder Deleon NP - Last Filed: 11/28/20 12:00> I have reviewed the chart <Maximiliano Schmitz MD - Last Filed: 01/04/21 13:53> Medical Decision Making MDM Narrative Medical decision making narrative: Sprain, strain, fracture <Rajwinder Deleon NP - Last Filed: 11/28/20 12:00> Imaging Data right nabeel/foot xray: Attestation: I personally reviewed and interpreted this imaging study as follows: <Rajwinder Deleon NP - Last Filed: 11/28/20 12:00> Radiologist's impression: FINDINGS: There is soft tissue swelling overlying the lateral malleolus. There is a questionable fine linear cortical avulsion at tip lateral malleolus. Otherwise, the malleoli appear intact and the ankle mortise is symmetric. The talar dome shows no osteochondral lesion. The subtalar joint is normal. The retrocalcaneal recess is preserved. There is bulky plantar calcaneal spur and small posterior calcaneal spur. Calcification of the distal vasculature represents atherosclerotic changes. Forefoot show no fracture or dislocation. There is mild dorsal spurring mid foot. There is mild hallux valgus and bunion at medial first metatarsal head. Variable degenerative changes involve the digits. XR/XR foot RT 2V IMPRESSION: 1. Lateral ankle soft tissue swelling. Possible fine linear cortical avulsion tip lateral malleolus. Otherwise, no visible fracture or dislocation. 2. Calcaneal spurs. Mild spurring dorsal midfoot, hallux valgus, bunion, and degenerative changes toes. <Rajwinder Deleon NP - Last Filed: 11/28/20 12:00> Discharge Plan Discharge Clinical Impression: Ankle fracture, lateral malleolus, closed <Rajwinder Deleon NP - Last Filed: 11/28/20 12:00> Patient Disposition: Home, Self-Care <Rajwinder Deleon NP - Last Filed: 11/28/20 12:00> Instructions: Ankle Fracture (ED) <BENNY Chavez Last Filed: 11/28/20 12:00> Additional Instructions: Use the boot for comfort Ice, elevation, continue Tylenol for pain <BENNY Chavez Last Filed: 11/28/20 12:00> Prescriptions: New cyclobenzaprine 5 mg tablet 5 mg PO TID PRN (Reason: muscle spasm) Qty: 10 RF: 0 No Action amlodipine 10 mg tablet 10 mg PO DAILY 90 Days Qty: 90 RF: 1 atenolol 50 mg tablet 50 mg PO BID 90 Days Qty: 180 RF: 3 cholecalciferol (vitamin D3) 50 mcg (2,000 unit) tablet 2,000 unit PO DAILY 90 Days Qty: 90 RF: 3 cyanocobalamin (vitamin B-12) 1,000 mcg tablet 1,000 mcg PO DAILY 90 Days Qty: 90 RF: 3 docusate sodium [DOK] 100 mg capsule 100 mg PO BID PRN (Reason: constipation) 90 Days Qty: 180 RF: 2 Jardiance 25 mg tablet 25 mg PO QAM 90 Days Qty: 90 RF: 3 furosemide 40 mg tablet 40 mg PO BID 90 Days Qty: 180 RF: 1 losartan 100 mg tablet 100 mg PO DAILY 90 Days Qty: 90 RF: 3 metformin 1,000 mg tablet 1,000 mg PO BID 90 Days Qty: 180 RF: 3 sennosides [senna] 8.6 mg tablet 17.2 mg PO BEDTIME 90 Days Qty: 180 RF: 3 rosuvastatin [Crestor] 40 mg tablet 40 mg PO DAILY 90 Days Qty: 90 RF: 3 nystatin 100,000 unit/gram powder 1 appl topical BID 30 Days Qty: 120 RF: 2 Tresiba FlexTouch U-100 100 unit/mL (3 mL) insulin pen 15 unit subcut DAILY 90 Days Qty: 15 RF: 1 fenofibrate 160 mg tablet 160 mg PO DAILY 90 Days Qty: 90 RF: 3 (DME) pen needle, diabetic [BD Meghan 2nd Gen Pen Needle] 32 gauge x 5/32 needle See Rx Instructions .MEDSUPPLY Qty: 50 RF: 4 (DME) OneTouch Verio test strips Strip See Rx Instructions .Route Qty: 100 RF: 11 oxycodone 5 mg tablet 5 mg PO Q6H PRN (Reason: pain) 30 Days Qty: 120 RF: 0 enoxaparin [Lovenox] 100 mg/mL syringe 100 mg subcut Q12H Qty: 6 RF: 0 trazodone 100 mg tablet 100 mg PO BEDTIME PRN (Reason: sleep) 90 Days Qty: 90 RF: 1 escitalopram oxalate [Lexapro] 10 mg tablet 10 mg PO DAILY 90 Days Qty: 90 RF: 1 oxymetazoline [Afrin (oxymetazoline)] 0.05 % spray,non-aerosol 2 spray intranasal Q12H PRN (Reason: nasal congestion) 3 Days Qty: 22 RF: 0 hydroxychloroquine [Plaquenil] 200 mg tablet 200 mg PO BID RF: 0 ferrous sulfate 325 mg (65 mg iron) tablet 325 mg PO DAILY 90 Days Qty: 90 RF: 3 gabapentin 400 mg capsule 400 mg PO TID 90 Days Qty: 270 RF: 1 loratadine [Allergy Relief (loratadine)] 10 mg tablet 10 mg PO DAILY PRN (Reason: allergy symptoms) 90 Days Qty: 90 RF: 3 fluticasone propionate 50 mcg/actuation spray,suspension 1 spray intranasal DAILY 90 Days Qty: 16 RF: 3 Xarelto 20 mg tablet 20 mg PO QPM 90 Days Qty: 90 RF: 1 oxybutynin chloride 5 mg tablet 5 mg PO DAILY 90 Days Qty: 90 RF: 1 thiamine mononitrate (vit B1) 100 mg tablet 100 mg PO DAILY 90 Days Qty: 90 RF: 3 omeprazole 40 mg capsule,delayed release(DR/EC) 40 mg PO DAILY Qty: 90 RF: 1 Trulicity 3 mg/0.5 mL pen injector 3 mg subcut QWEEK 28 Days Qty: 2 RF: 6 <Rajwinder Deleon NP - Last Filed: 11/28/20 12:00> Referrals: Fritz Moss MD [Physician] - 2 days <Rajwinder Deleon NP - Last Filed: 11/28/20 12:00> Interventions: ED Discharge Assessment Last Done: 11/28/20 11:32 <Rajwinder Deleon NP - Last Filed: 11/28/20 12:00> Discharge Date/Time: 11/28/20 11:32 <Rajwinder Deleon NP - Last Filed: 11/28/20 12:00>
[2020-11-28 10:11] VITALS: BP 110/70; PULSE 59; RESP 18; TEMP 36.6; O2SAT 97; BMI 42.9
== END 2020-11-28 11:32 | disposition home or self-care (01) ==
PROVIDERS: Emergency Provider Emergency Medicine; PCP Internal Medicine
DX: S82.61XA Displaced fracture of lateral malleolus of right fibula, initial encounter for closed fracture (principal); E11.22 Type 2 diabetes mellitus with diabetic chronic kidney disease; I13.0 Hypertensive heart and chronic kidney disease with heart failure and stage 1 through stage 4 chronic kidney disease, or unspecified chronic kidney disease; N18.9 Chronic kidney disease, unspecified; I50.32 Chronic diastolic (congestive) heart failure; I48.0 Paroxysmal atrial fibrillation; Z86.73 Personal history of transient ischemic attack (TIA), and cerebral infarction without residual deficits; Z79.01 Long term (current) use of anticoagulants; Z79.4 Long term (current) use of insulin; Z79.899 Other long term (current) drug therapy; X50.1XXA Overexertion from prolonged static or awkward postures, initial encounter; Y93.9 Activity, unspecified; Y92.003 Bedroom of unspecified non-institutional (private) residence as the place of occurrence of the external cause; Y99.9 Unspecified external cause status
CPT/HCPCS: 71046; 73600; 73620; 99283

== ENCOUNTER → 2020-12-08 10:13 | Outpatient (BNVA) | payer MEDICARE, SELFPAY | PROVIDERS: Visit Provider Physician Assistant | DX: S82.61XA Displaced fracture of lateral malleolus of right fibula, initial encounter for closed fracture (principal) | CPT/HCPCS: 99202 ==

== ENCOUNTER → 2020-12-19 13:13 | Outpatient (BNVA) | payer MEDICARE, SELFPAY | PROVIDERS: PCP Internal Medicine; Referring Provider Internal Medicine; Visit Provider Internal Medicine | DX: I25.10 Atherosclerotic heart disease of native coronary artery without angina pectoris (principal); I48.0 Paroxysmal atrial fibrillation; I11.0 Hypertensive heart disease with heart failure; I50.32 Chronic diastolic (congestive) heart failure; I63.9 Cerebral infarction, unspecified; I27.20 Pulmonary hypertension, unspecified; E78.5 Hyperlipidemia, unspecified | CPT/HCPCS: 93005; 99212 ==

== ENCOUNTER 2020-12-29 23:01 | Emergency (ER) | payer MEDICARE, SELFPAY ==
[2020-12-29 23:21] VITALS: BP 135/60; PULSE 62; RESP 20; TEMP 36.1; O2SAT 96; BMI 37.3
--- NOTE | 2020-12-30 01:06 | PC.NURSE ---
PT MOVED TO MAIN ED TO BE SEEN DO TO [facility]OS[facility]. REPORT GIVEN TO GARRETT HYLTON.
--- NOTE | 2020-12-30 01:46 | ED.WOUNDLAC ---
HPI - Wound/Laceration General Chief Complaint: Wound/Laceration Stated Complaint: Post op bleeding Time Seen by Provider: 12/30/20 01:45 Source: patient Mode of arrival: ambulatory Limitations: no limitations History of Present Illness HPI narrative: patient is on xarelto but has switched to lovenox for the surgery to her nose for skin cancer. patient had a graft from her ear. But patient complaining of ear bleeding. Onset (ago): hour(s) Location: scalp Related Data Home Medications Medication Instructions Recorded Confirmed hydroxychloroquine 200 mg tablet 200 mg PO BID tab 08/02/20 12/19/20 (Plaquenil) Previous Rx's Medication Instructions Recorded amlodipine 10 mg tablet 10 mg PO DAILY 90 Days #90 tab 08/25/20 atenolol 50 mg tablet 50 mg PO BID 90 Days #180 tab 08/25/20 cholecalciferol (vitamin D3) 50 2,000 unit PO DAILY 90 Days #90 tab 08/25/20 mcg (2,000 unit) tablet cyanocobalamin (vitamin B-12) 1,000 mcg PO DAILY 90 Days #90 tab 08/25/20 1,000 mcg tablet docusate sodium 100 mg capsule 100 mg PO BID PRN 90 Days #180 cap 08/25/20 (DOK) empagliflozin 25 mg tablet 25 mg PO QAM 90 Days #90 tab 08/25/20 (Jardiance) escitalopram oxalate 10 mg tablet 10 mg PO DAILY 90 Days #90 tab 08/25/20 (Lexapro) furosemide 40 mg tablet 40 mg PO BID 90 Days #180 tab 08/25/20 losartan 100 mg tablet 100 mg PO DAILY 90 Days #90 tab 08/25/20 metformin 1,000 mg tablet 1,000 mg PO BID 90 Days #180 tab 08/25/20 rosuvastatin 40 mg tablet (Crestor) 40 mg PO DAILY 90 Days #90 tab 08/25/20 sennosides 8.6 mg tablet (senna) 17.2 mg PO BEDTIME 90 Days #180 tab 08/25/20 trazodone 100 mg tablet 100 mg PO BEDTIME PRN 90 Days #90 08/25/20 tab nystatin 100,000 unit/gram topical 1 appl TOPICAL BID 30 Days #120 g 09/15/20 powder dulaglutide 3 mg/0.5 mL 3 mg SUBCUT QWEEK 28 Days #2 ml 10/05/20 subcutaneous pen injector (Trulicity) insulin degludec 100 unit/mL (3 15 unit SUBCUT DAILY 90 Days #15 ml 10/12/20 mL) subcutaneous pen (Tresiba FlexTouch U-100 insulin) fenofibrate 160 mg tablet 160 mg PO DAILY 90 Days #90 tab 10/30/20 ferrous sulfate 325 mg (65 mg 325 mg PO DAILY 90 Days #90 tab 11/07/20 iron) tablet fluticasone propionate 50 1 spray INTRANASAL DAILY 90 Days 11/07/20 mcg/actuation nasal #16 g spray,suspension gabapentin 400 mg capsule 400 mg PO TID 90 Days #270 cap 11/07/20 loratadine 10 mg tablet (Allergy 10 mg PO DAILY PRN 90 Days #90 tab 11/07/20 Relief (loratadine)) omeprazole 40 mg capsule,delayed 40 mg PO DAILY #90 cap 11/07/20 release oxybutynin chloride 5 mg tablet 5 mg PO DAILY 90 Days #90 tab 11/07/20 rivaroxaban 20 mg tablet (Xarelto) 20 mg PO QPM 90 Days #90 tab 11/07/20 thiamine mononitrate (vit B1) 100 100 mg PO DAILY 90 Days #90 tab 11/07/20 mg tablet pen needle, diabetic 32 gauge x #50 ea 11/09/20 (BD Meghan 2nd Gen Pen Needle) cyclobenzaprine 5 mg tablet 5 mg PO TID PRN #10 tab 11/28/20 blood sugar diagnostic (OneTouch #100 ea 12/16/20 Verio test strips) oxycodone 5 mg tablet 5 mg PO Q6H PRN 30 Days #120 tab 12/22/20 enoxaparin 100 mg/mL subcutaneous 100 mg SUBCUT Q12H #6 ml 12/25/20 syringe (Lovenox) Allergies Allergy/AdvReac Type Severity Reaction Status Date / Time sulfamethoxazole Allergy Intermediate RASH Verified 12/19/20 13:18 trimethoprim Allergy Intermediate RASH Verified 12/19/20 13:18 cefdinir Allergy Mild hives Verified 12/19/20 13:18 morphine [Morphine] Allergy Mild ITCHING, Verified 12/19/20 13:18 hives duloxetine AdvReac Intermediate altered Verified 12/19/20 13:18 behavior betina AdvReac Mild RUNNY NOSE Verified 12/19/20 13:18 mustard AdvReac Mild RUNNY NOSE Verified 12/19/20 13:18 potato [POTATO] AdvReac Mild ITCHY NOSE Verified 12/19/20 13:18 soybean AdvReac Mild RUNNY NOSE Verified 12/19/20 13:18 Review of Systems Constitutional: Constitutional: Reports no additional constitutional complaints Eyes: Eyes: Reports no additional eye complaints ENT: Denies dizziness Cardiovascular: Cardiovascular: Reports no additional cardiovascular complaints Respiratory: Respiratory: Reports as per HPI Gastrointestinal: Gastrointestinal: Reports no additional gastrointestinal complaints Genitourinary: Genitourinary: Reports no additional female genitourinary complaints Musculoskeletal: Musculoskeletal: Reports no additional musculoskeletal complaints Integumentary/Breasts: Skin/Breast: Denies rash Neurologic: Reports system reviewed and no additional complaints, except as documented, Denies dizziness and Denies Sensory deficit (Neuro) Psychiatric: Psychiatric: Denies anxiety PMFSH Past Medical History Medical History Atherosclerotic cardiovascular disease Chronic heart failure with preserved ejection fraction (HFpEF) Diabetes mellitus Diabetes type 2, uncontrolled Dyslipidemia Essential hypertension Hospital discharge follow-up Iron deficiency anemia Ischemic stroke Lumbar degenerative disc disease Obesity due to excess calories Other and unspecified hyperlipidemia Paroxysmal atrial fibrillation Proteinuria Pulmonary hypertension Pure hypercholesterolemia Thrombus 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 Urge urinary incontinence Surgical History History of partial hysterectomy Hx of cardiac cath Hx of cervical spine surgery Family History Family History Father Rectal cancer Hypertension Arthritis of knee CVD (cardiovascular disease) Mother Hypertension CVD (cardiovascular disease) Myocardial infarction Diabetes Social History Social History Household Members: Spouse Housing: House Do you presently have visiting nurse or other home services: Yes (was receiving PT services) Alcohol intake: never Patient Tobacco Use Status: Never used Tobacco e-Cigarette/Vaping Use: Never Used Second Hand Smoke Exposure: No Advance Directives: Yes Advance Directives on File: Yes Advance Directives Date on File: 07/17/20 service: No Current occupational status: retired Current occupation: Lt handed Physical Exam Vital Signs: Vital Signs: Last Vital Signs Temp 96.9 F 12/29/20 23:21 Pulse 62 12/29/20 23:21 Resp 20 12/29/20 23:21 BP 135/60 12/29/20 23:21 Pulse Ox 96 12/29/20 23:21 Body Mass Index 37.3 Const: Other: elderly female Nutritional Appearance: average body habitus Orientation/consciousness: oriented to person and patient oriented x3 Limitations: no limitations HENMT: Head: Yes normal to inspection Ears: external ears normal General nose exam: Normal external nose present Mouth: Normal oral and palatal mucosa present and oropharynx normal Throat: Yes posterior oropharynx normal Eyes: General: appearance normal, both eyes and all related structures Neck: Other: supple Neck: Yes normal visual inspection Chest: Chest palpation & inspection: normal inspection of the chest Resp: Auscultation: clear to auscultation bilaterally Cardio: Jugular venous distension: no JVD Rate: regular rate Rhythm: regular rhythm Heart sounds: S1 normal heart sound present and S2 normal heart sound present GI: Inspection: Yes normal to inspection Palpation (GI): Soft to palpation, nontender and No hepatosplenomegaly present Auscultation: normal bowel sounds : General: Yes no CVA tenderness Back/Spine/Pelvis: Back: no CVA tenderness Skin: Other: large excision behind left ear, not actively bleeding Neuro: General: oriented to person and patient oriented x3 Cranial nerves: Yes CN's II-XII intact bilaterally Motor exam (neuro): 5/5 motor strength present throughout Sensory Exam: No Sensory deficit (Neuro) Extrem: General: Yes normal to inspection Psych: Appearance: grossly normal Course Reevaluation(s) Reevaluation #1: xeroform with gauze over lesion with pressure bandage placed. No active bleeding Time: 02:02 Discharge Plan Discharge Clinical Impression: Abnormal surgical wound Qualifiers: Encounter type: initial encounter Qualified Code(s): T81.9XXA - Unspecified complication of procedure, initial encounter Patient Disposition: Home, Self-Care Additional Instructions: keep pressure dressing on for at least 48 hours, continue your lovenox Prescriptions: No Action amlodipine 10 mg tablet 10 mg PO DAILY 90 Days Qty: 90 RF: 1 atenolol 50 mg tablet 50 mg PO BID 90 Days Qty: 180 RF: 3 cholecalciferol (vitamin D3) 50 mcg (2,000 unit) tablet 2,000 unit PO DAILY 90 Days Qty: 90 RF: 3 cyanocobalamin (vitamin B-12) 1,000 mcg tablet 1,000 mcg PO DAILY 90 Days Qty: 90 RF: 3 docusate sodium [DOK] 100 mg capsule 100 mg PO BID PRN (Reason: constipation) 90 Days Qty: 180 RF: 2 Jardiance 25 mg tablet 25 mg PO QAM 90 Days Qty: 90 RF: 3 escitalopram oxalate [Lexapro] 10 mg tablet 10 mg PO DAILY 90 Days Qty: 90 RF: 1 furosemide 40 mg tablet 40 mg PO BID 90 Days Qty: 180 RF: 1 losartan 100 mg tablet 100 mg PO DAILY 90 Days Qty: 90 RF: 3 metformin 1,000 mg tablet 1,000 mg PO BID 90 Days Qty: 180 RF: 3 trazodone 100 mg tablet 100 mg PO BEDTIME PRN (Reason: sleep) 90 Days Qty: 90 RF: 1 sennosides [senna] 8.6 mg tablet 17.2 mg PO BEDTIME 90 Days Qty: 180 RF: 3 rosuvastatin [Crestor] 40 mg tablet 40 mg PO DAILY 90 Days Qty: 90 RF: 3 nystatin 100,000 unit/gram powder 1 appl topical BID 30 Days Qty: 120 RF: 2 Tresiba FlexTouch U-100 100 unit/mL (3 mL) insulin pen 15 unit subcut DAILY 90 Days Qty: 15 RF: 1 fenofibrate 160 mg tablet 160 mg PO DAILY 90 Days Qty: 90 RF: 3 (DME) pen needle, diabetic [BD Meghan 2nd Gen Pen Needle] 32 gauge x 5/32 needle See Rx Instructions .MEDSUPPLY Qty: 50 RF: 4 (DME) OneTouch Verio test strips Strip See Rx Instructions .Route Qty: 100 RF: 11 oxycodone 5 mg tablet 5 mg PO Q6H PRN (Reason: pain) 30 Days Qty: 120 RF: 0 enoxaparin [Lovenox] 100 mg/mL syringe 100 mg subcut Q12H Qty: 6 RF: 0 hydroxychloroquine [Plaquenil] 200 mg tablet 200 mg PO BID RF: 0 cyclobenzaprine 5 mg tablet 5 mg PO TID PRN (Reason: muscle spasm) Qty: 10 RF: 0 ferrous sulfate 325 mg (65 mg iron) tablet 325 mg PO DAILY 90 Days Qty: 90 RF: 3 gabapentin 400 mg capsule 400 mg PO TID 90 Days Qty: 270 RF: 1 loratadine [Allergy Relief (loratadine)] 10 mg tablet 10 mg PO DAILY PRN (Reason: allergy symptoms) 90 Days Qty: 90 RF: 3 fluticasone propionate 50 mcg/actuation spray,suspension 1 spray intranasal DAILY 90 Days Qty: 16 RF: 3 Xarelto 20 mg tablet 20 mg PO QPM 90 Days Qty: 90 RF: 1 oxybutynin chloride 5 mg tablet 5 mg PO DAILY 90 Days Qty: 90 RF: 1 thiamine mononitrate (vit B1) 100 mg tablet 100 mg PO DAILY 90 Days Qty: 90 RF: 3 omeprazole 40 mg capsule,delayed release(DR/EC) 40 mg PO DAILY Qty: 90 RF: 1 Trulicity 3 mg/0.5 mL pen injector 3 mg subcut QWEEK 28 Days Qty: 2 RF: 6
--- NOTE | 2020-12-30 02:14 | PC.NURSE ---
xeroform, gauze, and wrapped with kerlix. bleeding controlled at this time.
== END 2020-12-30 02:15 | disposition home or self-care (01) ==
PROVIDERS: Emergency Provider Emergency Medicine; PCP Internal Medicine
DX: T81.9XXA Unspecified complication of procedure, initial encounter (principal); Y92.9 Unspecified place or not applicable; E11.9 Type 2 diabetes mellitus without complications; I10 Essential (primary) hypertension; I48.0 Paroxysmal atrial fibrillation; E78.5 Hyperlipidemia, unspecified; Z79.01 Long term (current) use of anticoagulants; Z79.4 Long term (current) use of insulin; Z79.02 Long term (current) use of antithrombotics/antiplatelets; Z79.899 Other long term (current) drug therapy
CPT/HCPCS: 99283; 99284

== ENCOUNTER 2020-12-30 09:42 | Emergency (ER) | payer MEDICARE, SELFPAY ==
[2020-12-30 09:58] VITALS: BP 136/70; PULSE 58; RESP 16; O2SAT 98; BMI 37.2
--- NOTE | 2020-12-30 10:17 | ED.EPISTAXIS ---
History of Present Illness General Chief Complaint: Epistaxis Stated Complaint: nose bleed Time Seen by Provider: 12/30/20 10:16 Source: patient History of Present Illness HPI Narrative: 70-year-old female with a past medical history of CVA on 06/06/2020, AFib who was on Xarelto although recently switched over to Lovenox due to recent surgery for her skins cancer for her nose and she had a graft from her ear, diabetes type 2 non insulin dependent, hypertension, iron deficiency anemia, lumbar disc degeneration, hypercholesterolemia, coronary artery disease, CHF with preserved ejection fracture, CKD here with complaints of epistaxis from her left Nare that started shortly after she was discharged here. Patient was recently here overnight due to she was bleeding from the graph of her ear she had 0 form with gauze placed over the lesion with a pressure bandage placed and she no longer had any bleeding therefore she was discharged home. She reports shortly after when she got home she gave herself her Lovenox shot. She is wondering if she can skip her Lovenox shot for at least 24 hours. She reports her inspector air carrier is Dr. Sweet. She denies any traumas. She denies any dizziness, headaches, change in vision, chest pain or shortness of breath or any other symptoms complaints or concerns at this time. Location: Yes left naris Onset/current episode: Yes minute(s) (Prior to arrival) Duration: Yes intermittent Pertinent past history: Yes hypertension Context: Yes other anticoagulant use, Yes hypertension and Yes recent surgery Treatment prior to arrival: Yes ice Related Data Home Medications Medication Instructions Recorded Confirmed hydroxychloroquine 200 mg tablet 200 mg PO BID tab 08/02/20 12/19/20 (Plaquenil) Previous Rx's Medication Instructions Recorded amlodipine 10 mg tablet 10 mg PO DAILY 90 Days #90 tab 08/25/20 atenolol 50 mg tablet 50 mg PO BID 90 Days #180 tab 08/25/20 cholecalciferol (vitamin D3) 50 2,000 unit PO DAILY 90 Days #90 tab 08/25/20 mcg (2,000 unit) tablet cyanocobalamin (vitamin B-12) 1,000 mcg PO DAILY 90 Days #90 tab 08/25/20 1,000 mcg tablet docusate sodium 100 mg capsule 100 mg PO BID PRN 90 Days #180 cap 08/25/20 (DOK) empagliflozin 25 mg tablet 25 mg PO QAM 90 Days #90 tab 08/25/20 (Jardiance) escitalopram oxalate 10 mg tablet 10 mg PO DAILY 90 Days #90 tab 08/25/20 (Lexapro) furosemide 40 mg tablet 40 mg PO BID 90 Days #180 tab 08/25/20 losartan 100 mg tablet 100 mg PO DAILY 90 Days #90 tab 08/25/20 metformin 1,000 mg tablet 1,000 mg PO BID 90 Days #180 tab 08/25/20 rosuvastatin 40 mg tablet (Crestor) 40 mg PO DAILY 90 Days #90 tab 08/25/20 sennosides 8.6 mg tablet (senna) 17.2 mg PO BEDTIME 90 Days #180 tab 08/25/20 trazodone 100 mg tablet 100 mg PO BEDTIME PRN 90 Days #90 08/25/20 tab nystatin 100,000 unit/gram topical 1 appl TOPICAL BID 30 Days #120 g 09/15/20 powder dulaglutide 3 mg/0.5 mL 3 mg SUBCUT QWEEK 28 Days #2 ml 10/05/20 subcutaneous pen injector (Trulicity) insulin degludec 100 unit/mL (3 15 unit SUBCUT DAILY 90 Days #15 ml 10/12/20 mL) subcutaneous pen (Tresiba FlexTouch U-100 insulin) fenofibrate 160 mg tablet 160 mg PO DAILY 90 Days #90 tab 10/30/20 ferrous sulfate 325 mg (65 mg 325 mg PO DAILY 90 Days #90 tab 11/07/20 iron) tablet fluticasone propionate 50 1 spray INTRANASAL DAILY 90 Days 11/07/20 mcg/actuation nasal #16 g spray,suspension gabapentin 400 mg capsule 400 mg PO TID 90 Days #270 cap 11/07/20 loratadine 10 mg tablet (Allergy 10 mg PO DAILY PRN 90 Days #90 tab 11/07/20 Relief (loratadine)) omeprazole 40 mg capsule,delayed 40 mg PO DAILY #90 cap 11/07/20 release oxybutynin chloride 5 mg tablet 5 mg PO DAILY 90 Days #90 tab 11/07/20 rivaroxaban 20 mg tablet (Xarelto) 20 mg PO QPM 90 Days #90 tab 11/07/20 thiamine mononitrate (vit B1) 100 100 mg PO DAILY 90 Days #90 tab 11/07/20 mg tablet pen needle, diabetic 32 gauge x #50 ea 11/09/2032 (BD Meghan 2nd Gen Pen Needle) cyclobenzaprine 5 mg tablet 5 mg PO TID PRN #10 tab 11/28/20 blood sugar diagnostic (OneTouch #100 ea 12/16/20 Verio test strips) oxycodone 5 mg tablet 5 mg PO Q6H PRN 30 Days #120 tab 12/22/20 enoxaparin 100 mg/mL subcutaneous 100 mg SUBCUT Q12H #6 ml 12/25/20 syringe (Lovenox) oxymetazoline 0.05 % nasal spray 2 spray INTRANASAL Q12H PRN 3 Days 12/30/20 (Afrin (oxymetazoline)) #22 ml Allergies Allergy/AdvReac Type Severity Reaction Status Date / Time sulfamethoxazole Allergy Intermediate RASH Verified 12/19/20 13:18 trimethoprim Allergy Intermediate RASH Verified 12/19/20 13:18 cefdinir Allergy Mild hives Verified 12/19/20 13:18 morphine [Morphine] Allergy Mild ITCHING, Verified 12/19/20 13:18 hives duloxetine AdvReac Intermediate altered Verified 12/19/20 13:18 behavior betina AdvReac Mild RUNNY NOSE Verified 12/19/20 13:18 mustard AdvReac Mild RUNNY NOSE Verified 12/19/20 13:18 potato [POTATO] AdvReac Mild ITCHY NOSE Verified 12/19/20 13:18 soybean AdvReac Mild RUNNY NOSE Verified 12/19/20 13:18 Review of Systems Review of Systems: Constitutional : No Fever, No Chills ENT/Mouth : Positive Nose Bleed, No Ear Pain, No Nasal Congestion Eyes: No Eye Pain, No Swelling, No Redness Cardiovascular : No Chest Pain, No SOB Respiratory : No Cough, No Sputum Gastrointestinal : No Nausea, No Vomiting, No Diarrhea Genitourinary : No Dysuria, No Hematuria Musculoskeletal : No joint pain, No Myalgias Skin : No Skin Lesions, No rash Neuro : No Weakness, No Numbness, No headache Psych : No Anxiety/Panic, No Depression Heme/Lymph: No Bleeding,No Lymphadenopathy Endocrine : No Polyuria, No Polydipsia Yes all other systems are reviewed and are negative PMFSH Past Medical History Attestation statement: The following information was validated with the patient. Medical History Atherosclerotic cardiovascular disease Chronic heart failure with preserved ejection fraction (HFpEF) Diabetes mellitus Diabetes type 2, uncontrolled Dyslipidemia Essential hypertension Hospital discharge follow-up Iron deficiency anemia Ischemic stroke Lumbar degenerative disc disease Obesity due to excess calories Other and unspecified hyperlipidemia Paroxysmal atrial fibrillation Proteinuria Pulmonary hypertension Pure hypercholesterolemia Thrombus 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 Urge urinary incontinence Surgical History History of partial hysterectomy Hx of cardiac cath Hx of cervical spine surgery Family History Family History Father Rectal cancer Hypertension Arthritis of knee CVD (cardiovascular disease) Mother Hypertension CVD (cardiovascular disease) Myocardial infarction Diabetes Social History Social History Household Members: Spouse Housing: House Do you presently have visiting nurse or other home services: Yes (was receiving PT services) Alcohol intake: never Patient Tobacco Use Status: Never used Tobacco e-Cigarette/Vaping Use: Never Used Second Hand Smoke Exposure: No Advance Directives: Yes Advance Directives on File: Yes Advance Directives Date on File: 07/17/20 service: No Current occupational status: retired Current occupation: Lt handed Physical Exam Vital Signs: Vital Signs: Last Vital Signs Temp 97.8 F 12/30/20 11:06 Pulse 54 12/30/20 11:06 Resp 16 12/30/20 11:06 BP 153/56 H 12/30/20 11:06 Pulse Ox 95 12/30/20 11:06 Body Mass Index 37.2 vital signs have been reviewed as normal and appeared to be correct. Blood pressure normal. Heart rate normal. Respiration rate normal. Temperature normal. Oxygen saturation normal. Appearance: Alert. Oriented X3. No acute distress. Head: Normal external exam. Normocephalic. Atraumatic. Eyes: PERRLA. EOMI. Conjunctiva and sclera normal. Eyelids normal. ENT: Patient noted to have dry blood to the left Nare no active bleeding/clots noted Patient noted to have dry blood to posterior pharynx otherwise posterior pharynx is within normal limits. Uvula midline. Moist mucous membranes. No trismus noted. No drooling noted. No muffled voice noted. Neck: Normal inspection. Neck supple. FROM. No adenopathy. No meningeal signs. CVS: Normal heart rate and rhythm. Heart sound normal. Pulses normal throughout. No murmurs/rales/gallops. Respiratory: No respiratory distress. Painless inspiration. Breath sounds normal. No wheezes/rales/rhonchi noted. Chest nontender. No accessory muscle usage noted or decreased air movement noted. Back: Full range of motion noted. No rashes/lesion/induration/fluctuance or signs of infection noted. Skin: Skin warm and dry. Normal skin color. Normal skin turgor. No rashes/lesions/lacerations noted. Extremities: Extremities exhibit normal range of motion. Extremities nontender. Neuro: Oriented X 3. No motor deficit. No sensory deficit. Reflexes normal. Normal steady gait. No focal neuro deficits noted. Vascular: + radial pulses/+ 2 distal pedal pulses/+2 dorsalis pedis b/l. Normal cap refill. No cyanosis noted to upper extremity nails and lower extremity toes nails. Course Course Course Narrative: 10am - 70-year-old female currently on Lovenox presenting to the ED for a 2nd time after she was seen last night for bleeding of her left ear where she had a graft she had a pressure dressing with Xeroform placed and no further bleeding therefore she was discharged. She reports she went home gave herself her Lovenox shot and shortly after started to bleed out her left Nare. Therefore she came here for further evaluation and treatment. - On Exam patient does not have any active bleeding to bilateral nares she only has dried blood noted. Dry blood noted to posterior pharynx. No abnormalities noted. Uvula is midline. No drooling/trismus. Patient still has a dressing to her nose and to her head. I discussed this case with Dr. Gonzalez and he reported that we will instruct the patient to stop her Lovenox shots for only 24 hours and then to recontinue. Will monitor for approximately 1 hour patient does not have any further bleeding will DC home with instructions to discontinue the Lovenox for only 24 hours then to restarted and to follow-up with her PCP/inspector air carrier. Patient understands agrees with this plan. [facility] - Epistaxis Medical Records Attestation: I reviewed the patient's medical records. Lab Data Attestation: I reviewed the patient's lab results. Discharge Plan Discharge Clinical Impression: Epistaxis Patient Disposition: Home, Self-Care Instructions: Nosebleed (ED) Additional Instructions: Please stop your Lovenox for only 24 hours then Re-continue your Lovenox within 24 hours. Return if any new or worsening symptoms. Follow up with her primary care provider and your inspector air carrier. Prescriptions: New oxymetazoline [Afrin (oxymetazoline)] 0.05 % spray,non-aerosol 2 spray intranasal Q12H PRN (Reason: nasal congestion) 3 Days Qty: 22 RF: 0 No Action amlodipine 10 mg tablet 10 mg PO DAILY 90 Days Qty: 90 RF: 1 atenolol 50 mg tablet 50 mg PO BID 90 Days Qty: 180 RF: 3 cholecalciferol (vitamin D3) 50 mcg (2,000 unit) tablet 2,000 unit PO DAILY 90 Days Qty: 90 RF: 3 cyanocobalamin (vitamin B-12) 1,000 mcg tablet 1,000 mcg PO DAILY 90 Days Qty: 90 RF: 3 docusate sodium [DOK] 100 mg capsule 100 mg PO BID PRN (Reason: constipation) 90 Days Qty: 180 RF: 2 Jardiance 25 mg tablet 25 mg PO QAM 90 Days Qty: 90 RF: 3 escitalopram oxalate [Lexapro] 10 mg tablet 10 mg PO DAILY 90 Days Qty: 90 RF: 1 furosemide 40 mg tablet 40 mg PO BID 90 Days Qty: 180 RF: 1 losartan 100 mg tablet 100 mg PO DAILY 90 Days Qty: 90 RF: 3 metformin 1,000 mg tablet 1,000 mg PO BID 90 Days Qty: 180 RF: 3 trazodone 100 mg tablet 100 mg PO BEDTIME PRN (Reason: sleep) 90 Days Qty: 90 RF: 1 sennosides [senna] 8.6 mg tablet 17.2 mg PO BEDTIME 90 Days Qty: 180 RF: 3 rosuvastatin [Crestor] 40 mg tablet 40 mg PO DAILY 90 Days Qty: 90 RF: 3 nystatin 100,000 unit/gram powder 1 appl topical BID 30 Days Qty: 120 RF: 2 Tresiba FlexTouch U-100 100 unit/mL (3 mL) insulin pen 15 unit subcut DAILY 90 Days Qty: 15 RF: 1 fenofibrate 160 mg tablet 160 mg PO DAILY 90 Days Qty: 90 RF: 3 (DME) pen needle, diabetic [BD Meghan 2nd Gen Pen Needle] 32 gauge x 5/32 needle See Rx Instructions .MEDSUPPLY Qty: 50 RF: 4 (DME) OneTouch Verio test strips Strip See Rx Instructions .Route Qty: 100 RF: 11 oxycodone 5 mg tablet 5 mg PO Q6H PRN (Reason: pain) 30 Days Qty: 120 RF: 0 enoxaparin [Lovenox] 100 mg/mL syringe 100 mg subcut Q12H Qty: 6 RF: 0 hydroxychloroquine [Plaquenil] 200 mg tablet 200 mg PO BID RF: 0 cyclobenzaprine 5 mg tablet 5 mg PO TID PRN (Reason: muscle spasm) Qty: 10 RF: 0 ferrous sulfate 325 mg (65 mg iron) tablet 325 mg PO DAILY 90 Days Qty: 90 RF: 3 gabapentin 400 mg capsule 400 mg PO TID 90 Days Qty: 270 RF: 1 loratadine [Allergy Relief (loratadine)] 10 mg tablet 10 mg PO DAILY PRN (Reason: allergy symptoms) 90 Days Qty: 90 RF: 3 fluticasone propionate 50 mcg/actuation spray,suspension 1 spray intranasal DAILY 90 Days Qty: 16 RF: 3 Xarelto 20 mg tablet 20 mg PO QPM 90 Days Qty: 90 RF: 1 oxybutynin chloride 5 mg tablet 5 mg PO DAILY 90 Days Qty: 90 RF: 1 thiamine mononitrate (vit B1) 100 mg tablet 100 mg PO DAILY 90 Days Qty: 90 RF: 3 omeprazole 40 mg capsule,delayed release(DR/EC) 40 mg PO DAILY Qty: 90 RF: 1 Trulicity 3 mg/0.5 mL pen injector 3 mg subcut QWEEK 28 Days Qty: 2 RF: 6 Referrals: Marla Henderson MD [Primary Care Provider] - 2 days Genaro Sweet MD [Physician] - 2 days Print Language: Lithuanian
[2020-12-30 11:06] VITALS: BP 153/56; PULSE 54; RESP 16; TEMP 36.6; O2SAT 95
== END 2020-12-30 11:25 | disposition home or self-care (01) ==
PROVIDERS: Emergency Provider Internal Medicine; PCP Internal Medicine
DX: R04.0 Epistaxis (principal); E11.22 Type 2 diabetes mellitus with diabetic chronic kidney disease; I13.0 Hypertensive heart and chronic kidney disease with heart failure and stage 1 through stage 4 chronic kidney disease, or unspecified chronic kidney disease; N18.9 Chronic kidney disease, unspecified; I50.9 Heart failure, unspecified; I48.91 Unspecified atrial fibrillation; Z86.73 Personal history of transient ischemic attack (TIA), and cerebral infarction without residual deficits; Z79.01 Long term (current) use of anticoagulants; Z79.4 Long term (current) use of insulin; Z79.899 Other long term (current) drug therapy
CPT/HCPCS: 99283; 99284

== ENCOUNTER 2021-01-02 07:38 | Outpatient (REF) | payer MEDICARE, SELFPAY ==
--- NOTE | ~2021-01-02 | FL_ITS ---
EXAMINATION: XR FLUOROSCOPY WITH IMAGES CLINICAL INFORMATION: M51.36 - Other intervertebral disc degeneration, lumbar COMPARISON: Radiographs lumbar spine 11/22/2020 TECHNIQUE: Fluoroscopy performed by Claudia Carbajal NP. Fluoroscopy time: 0.2 minutes DAP: 5.44 Gycm2 Images: 2 FINDINGS: There is a spinal needle at the lumbosacral interlaminar space just right of midline. Some trace epidural contrast is suggested on the lateral view. There are multilevel degenerative changes as noted on recent plain films. FL/FL guidance in treatment room IMPRESSION: Fluoroscopy for pain management procedure.
== END 2021-01-02 07:39 | disposition home or self-care (01) ==
LOC: HO.RADIR 07:38
PROVIDERS: Visit Provider Anesthesiology
DX: M47.22 Other spondylosis with radiculopathy, cervical region (principal); M47.27 Other spondylosis with radiculopathy, lumbosacral region; M48.00 Spinal stenosis, site unspecified; M51.36 Other intervertebral disc degeneration, lumbar region
CPT/HCPCS: 62323; J3300; Q9967

== ENCOUNTER → 2021-01-09 13:17 | Outpatient (BNVA) | payer MEDICARE, SELFPAY | PROVIDERS: PCP Internal Medicine; Visit Provider Nurse Practitioner Gerontology | DX: E11.65 Type 2 diabetes mellitus with hyperglycemia (principal); E11.42 Type 2 diabetes mellitus with diabetic polyneuropathy; E11.29 Type 2 diabetes mellitus with other diabetic kidney complication; I10 Essential (primary) hypertension; E78.5 Hyperlipidemia, unspecified; E78.00 Pure hypercholesterolemia, unspecified; E66.01 Morbid (severe) obesity due to excess calories; R80.9 Proteinuria, unspecified; Z68.37 Body mass index [BMI] 37.0-37.9, adult; Z88.2 Allergy status to sulfonamides; Z88.8 Allergy status to other drugs, medicaments and biological substances; Z91.018 Allergy to other foods; Z79.4 Long term (current) use of insulin; Z79.899 Other long term (current) drug therapy | CPT/HCPCS: 82947; 99212 ==

== ENCOUNTER 2021-01-19 07:23 | Outpatient (REF) | payer MEDICARE, SELFPAY ==
--- NOTE | ~2021-01-19 | XR_ITS ---
EXAMINATION: XR ANKLE, RIGHT CLINICAL INFORMATION: Pain unspecified ankle and joints COMPARISON: 11/28/2020 TECHNIQUE: AP, lateral, and mortise views of the right ankle. FINDINGS: Well-corticated ossific fragments are seen adjacent the lateral malleolus which may represent fracture fragments. No soft tissue swelling. Ankle mortise intact. Talar dome intact. Minimal enthesopathy of the distal Achilles tendon attachment. Moderate plantar calcaneal osteophyte is present. There are vascular calcifications consistent with diabetes. There is osteophytosis of the medial malleolus. XR/XR ankle RT min 3V IMPRESSION: Well-corticated ossific fragments are seen adjacent the lateral malleolus which may represent fracture fragments from remote prior avulsion injury.
== END 2021-01-19 07:24 | disposition home or self-care (01) ==
LOC: HO.HOSX 07:23
PROVIDERS: Visit Provider Physician Assistant
DX: S82.61XA Displaced fracture of lateral malleolus of right fibula, initial encounter for closed fracture (principal)
CPT/HCPCS: 73610; 99212

== ENCOUNTER → 2021-02-14 08:43 | Outpatient (BNVA) | payer MEDICARE, SELFPAY | PROVIDERS: PCP Internal Medicine; Visit Provider Anesthesiology | DX: M47.22 Other spondylosis with radiculopathy, cervical region (principal); M47.27 Other spondylosis with radiculopathy, lumbosacral region; M48.00 Spinal stenosis, site unspecified | CPT/HCPCS: 99212 ==

== ENCOUNTER → 2021-02-16 08:39 | Outpatient (BNVA) | payer MEDICARE, SELFPAY | PROVIDERS: PCP Internal Medicine; Visit Provider Physician Assistant | DX: S82.61XD Displaced fracture of lateral malleolus of right fibula, subsequent encounter for closed fracture with routine healing (principal) | CPT/HCPCS: 99212 ==

== ENCOUNTER 2021-03-19 13:24 | Outpatient (REF) | payer MEDICARE, SELFPAY ==
--- NOTE | ~2021-03-19 | CT_ITS ---
EXAMINATION: CT HEAD WITHOUT CONTRAST CLINICAL INFORMATION: Dizziness and giddiness COMPARISON: Previous head CT February 2019, brain MRI March 2020 and brain CTA July 2020 TECHNIQUE: Contiguous axial imaging was performed from the skull base to vertex without intravenous administration of contrast. This CT examination was performed using dose optimization techniques as appropriate, variously including the following: *Automated exposure control *Adjustment of mA and/or kV according to patient size (this includes techniques or standardized protocols for targeted exams where dose is matched to indication/reason for exam; i.e. extremities or head) *Use of iterative reconstruction technique DLP: 795 mGy-cm FINDINGS: There is no evidence of an extra-axial collection. There is no evidence of intra-axial or extra-axial hemorrhage. The ventricles and extra-axial CSF spaces are slightly prominent suggestive of mild generalized atrophy. There is mild nonspecific periventricular white matter disease. There is an old left basal ganglia lacunar infarct. No mass, mass effect or acute infarct is seen. There is evidence of atherosclerotic disease. There is bony hyperostosis. No fracture or bone lesion is seen. Visualized paranasal sinuses, mastoid air cells and middle ears are clear. CT/CT head/brain wo con IMPRESSION: No acute findings. Mild generalized atrophy and nonspecific periventricular white matter disease. Old left basal ganglia lacunar infarct.
--- NOTE | ~2021-03-19 | XR_ITS ---
EXAMINATION: XR HIP, LEFT XR KNEE, LEFT CLINICAL INFORMATION: Pain of the left hip and left knee. COMPARISON: CT pelvis from 07/31/2018. Radiographs of knees from 10/27/2018 TECHNIQUE: Left hip, 2 views Left knee, 2 views FINDINGS: Left hip: The femoral head is well-positioned within the intact acetabulum. Small osteophytes. Mild narrowing of superomedial joint space. No acute abnormality compared to 07/31/2018. No evidence of proximal femoral fracture or osteonecrosis. Left knee: No acute findings. No fracture, subluxation or joint effusion. Small marginal osteophytes at mildly degenerated patellofemoral and tibiofemoral compartments. Chondrocalcinosis of the menisci. Atherosclerotic calcification of the visualized femoral, popliteal and lower leg vessels. XR/XR hip LT min 2V IMPRESSION: * Mild osteoarthritis of the left hip. * Mild tricompartmental osteoarthritis and chondrocalcinosis of the left knee. No new findings at the left knee compared to 10/27/2018.
--- NOTE | ~2021-03-19 | XR_ITS ---
EXAMINATION: XR SHOULDER, LEFT CLINICAL INFORMATION: Left shoulder pain COMPARISON: CXR from 07/31/2020 TECHNIQUE: Three views of the left shoulder. FINDINGS: Alignment is normal at the acromioclavicular and glenohumeral joints. [id number] osteoarthritis of the acromioclavicular joint. No acromiohumeral distance narrowing. The acromion process has type 2 configuration. There is linear, faintly visible calcium deposition along the region of the supraspinatus tendon. There is degenerative subchondral cystic change and osteophyte formation of the glenohumeral joint. No fracture or subluxation. Multilevel degenerative arthropathy of the partially visualized cervicothoracic spine. The visualized left lung is normal. XR/XR shoulder LT min 2V IMPRESSION: * No acute fracture or malalignment at the left shoulder. * Moderate osteoarthritis of the glenohumeral joint and [id number] osteoarthritis of the acromioclavicular joint. * There is somewhat linear, faintly visible calcium deposition (likely calcium pyrophosphate dihydrate crystal deposition) along the supraspinatus tendon.
--- NOTE | ~2021-03-19 | XR_ITS ---
EXAMINATION: XR HIP, LEFT XR KNEE, LEFT CLINICAL INFORMATION: Pain of the left hip and left knee. COMPARISON: CT pelvis from 07/31/2018. Radiographs of knees from 10/27/2018 TECHNIQUE: Left hip, 2 views Left knee, 2 views FINDINGS: Left hip: The femoral head is well-positioned within the intact acetabulum. Small osteophytes. Mild narrowing of superomedial joint space. No acute abnormality compared to 07/31/2018. No evidence of proximal femoral fracture or osteonecrosis. Left knee: No acute findings. No fracture, subluxation or joint effusion. Small marginal osteophytes at mildly degenerated patellofemoral and tibiofemoral compartments. Chondrocalcinosis of the menisci. Atherosclerotic calcification of the visualized femoral, popliteal and lower leg vessels. XR/XR knee LT 2V IMPRESSION: * Mild osteoarthritis of the left hip. * Mild tricompartmental osteoarthritis and chondrocalcinosis of the left knee. No new findings at the left knee compared to 10/27/2018.
--- NOTE | ~2021-03-19 | XR_ITS ---
EXAMINATION: XR HAND, LEFT CLINICAL INFORMATION: Pain in the left hand COMPARISON: Radiographs of left wrist from 05/01/2015 TECHNIQUE: PA, lateral, and oblique views of the left hand. FINDINGS: Chondrocalcinosis of the wrist, including involvement of the triangular fibrocartilage. Carpal bones are intact and have normal alignment. There are osteophytes of the mildly degenerated first carpometacarpal joint and thumb metacarpophalangeal joint. Also, osteoarthritic changes noted at multiple proximal and distal interphalangeal joints, worst at the index finger DIP joint and thumb interphalangeal joint. No erosions or periostitis. Within the visualized distal forearm, radial and ulnar vascular calcification is are noted. XR/XR hand LT min 3V IMPRESSION: * Chondrocalcinosis of the wrist. * Mild osteoarthritis of the first carpometacarpal joint. * Osteoarthritis of multiple distal joints in the hand, worst at the index finger DIP joint.
== END 2021-03-19 13:25 | disposition home or self-care (01) ==
LOC: HO.CT 13:24
PROVIDERS: PCP Internal Medicine; Visit Provider Internal Medicine
DX: R42 Dizziness and giddiness (principal); M25.552 Pain in left hip; M25.512 Pain in left shoulder; M25.562 Pain in left knee; M79.642 Pain in left hand
CPT/HCPCS: 70450; 73030; 73130; 73502; 73560; Q9967

== ENCOUNTER 2021-03-29 15:51 | Outpatient (REF) | payer MEDICARE, SELFPAY ==
--- NOTE | ~2021-03-29 | MR_ITS ---
EXAMINATION: MR OF THE BRAIN WITHOUT CONTRAST CLINICAL INFORMATION: 70-year-old with complaints of headaches and facial numbness. Unspecified injury of head. COMPARISON: 03/15/2020 MRI TECHNIQUE: Multiplanar multisequence MR imaging of the brain was done. FINDINGS: Brain Volume: Moderate generalized diffuse brain parenchymal volume loss, similar to the previous study. Structural: No malformations. Brain and Meninges: DWI sequence demonstrates no restricted diffusion. Specifically, there is no evidence for acute or subacute cerebral ischemia/infarct. Gradient-echo sequence demonstrates no evidence for hemorrhage, hemosiderin staining or abnormal mineral deposition. There are no extra-axial fluid collections, space-occupying process or mass effect. There is focal linear FLAIR/T2 hyperintensity with T1 hypointensity corresponding to the retrolenticular left internal capsule consistent with a remote deep white matter infarct in this region since the previous exam. Minimal deep periventricular patchy T2 hyperintensity is seen adjacent to the body of the left lateral ventricle slightly more prominent on current study, likely reflecting chronic ischemic microangiopathy. A few tiny T2 hyperintensities are seen in the dorsal bronson which are stable. Ventricles and Subarachnoid Spaces: The ventricular system and subarachnoid spaces are consistent with moderate volume loss without hydrocephalus, stable in appearance. Orbital Structures: The visualized orbital structures are grossly unremarkable within the limitations of the study. Vascular: Signal voids are noted in the visualized major intracranial vessels. Sinuses and Osseous Structures: Minimal retained fluid in the mastoids is noted, unchanged. Minor mucosal thickening in the ethmoid complex is unchanged. Osseous marrow signal intensity is unchanged in appearance and within normal limits. MR/MR head/brain wo con IMPRESSION: 1. There is a new remote deep white matter infarct in the retrolenticular portion of the left internal capsule since the previous exam, and there is minimal chronic ischemic microangiopathy in the deep left periventricular white matter on current study. 2. Moderate generalized diffuse brain parenchymal volume loss, stable in appearance without hydrocephalus. No acute intracranial process.
== END 2021-03-29 15:52 | disposition home or self-care (01) ==
LOC: HO.MRI 15:51
PROVIDERS: Visit Provider Internal Medicine
DX: S09.90XA Unspecified injury of head, initial encounter (principal)
CPT/HCPCS: 70551

== ENCOUNTER 2021-04-10 07:26 | Day surgery (SDC) | payer MEDICARE, SELFPAY ==
[2021-04-02 14:33] VITALS: BMI 37.2
--- NOTE | 2021-04-09 12:00 | P.CONAN_ITS ---
Documented by User: Mariel Ty NP 04/09/21 12:07 HPI - Anesthesia Eval Consult details Narrative: 70yo F for Colonoscopy Xarelto for afib PMFSH Active Problems Active Problems: All Active Problems (Updated 03/22/21 @ 14:52 by Marla Bray MD) Head injury (Acute) Left shoulder pain (Acute) Left knee pain (Acute) Left hip pain (Acute) Left hand pain (Acute) Dizziness (Acute) Diabetic neuropathy (Acute) Avulsion fracture of lateral malleolus of right fibula (Acute) Spondylosis of lumbosacral spine with radiculopathy (Acute) Spinal stenosis (Acute) Diabetes type 2, uncontrolled (Acute) Type 2 diabetes mellitus with other diabetic kidney complication (Acute) Proteinuria (Acute) Essential hypertension (Acute) Type 2 diabetes mellitus with diabetic polyneuropathy (Acute) Dyslipidemia (Acute) Obesity due to excess calories (Acute) Degenerative disc disease (Acute) Bilateral lumbar radiculopathy (Acute) Spondylosis of cervical spine with radiculopathy (Acute) Other and unspecified hyperlipidemia (Acute) Chronic heart failure with preserved ejection fraction (HFpEF) (Acute) Anemia (Acute) Thrombocytosis (Acute) Pulmonary hypertension (Acute) Ischemic stroke (Acute) Paroxysmal atrial fibrillation (Acute) Atherosclerotic cardiovascular disease (Acute) Hypertensive urgency (Acute) CHF exacerbation (Acute) Hospital discharge follow-up (Acute) Stress incontinence (Acute) Overactive bladder (Acute) Urge urinary incontinence (Acute) Iron deficiency anemia (Acute) Pure hypercholesterolemia (Acute) Diabetes mellitus (Acute) Lumbar degenerative disc disease (Acute) Past Medical History Medical History Atherosclerotic cardiovascular disease Chronic heart failure with preserved ejection fraction (HFpEF) Diabetes mellitus Diabetes type 2, uncontrolled Diabetic neuropathy Dizziness Dyslipidemia Essential hypertension Head injury Hospital discharge follow-up Iron deficiency anemia Ischemic stroke Left hand pain Left hip pain Left knee pain Left shoulder pain Lumbar degenerative disc disease Obesity due to excess calories Other and unspecified hyperlipidemia Paroxysmal atrial fibrillation Proteinuria Pulmonary hypertension Pure hypercholesterolemia Thrombus 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 Urge urinary incontinence Family History Family History Father Rectal cancer Hypertension Arthritis of knee CVD (cardiovascular disease) Mother Hypertension CVD (cardiovascular disease) Myocardial infarction Diabetes Surgical History Surgical History History of Mohs micrographic surgery for skin cancer History of partial hysterectomy Hx of cardiac cath Hx of cervical spine surgery Social History Social History Household Members: Spouse Housing: House Are you a primary healthcare advisory services manager to a significant other at home: No Do you presently have visiting nurse or other home services: No Alcohol intake: never Patient Tobacco Use Status: Never used Tobacco e-Cigarette/Vaping Use: Never Used Second Hand Smoke Exposure: No Use of substances other than those prescribed or required for medical reasons: No Have you been hit, kicked, punched, or otherwise hurt by someone within the past year? If so, by whom?: No Are you DNR?: No Advance Directives: Yes Advance Directives Information Provided: No Advance Directives on File: Yes Advance Directives Date on File: 07/17/20 Recently lost weight without trying: No Nutrition Risks: No Nutritional Risk service: No Current occupational status: retired Current occupation: Lt handed Meds Allergies Allergy/AdvReac Type Severity Reaction Status Date / Time sulfamethoxazole Allergy Intermediate RASH Verified 04/02/21 14:33 trimethoprim Allergy Intermediate RASH Verified 04/02/21 14:33 cefdinir Allergy Mild hives Verified 04/02/21 14:33 morphine [Morphine] Allergy Mild ITCHING, Verified 04/02/21 14:33 hives duloxetine AdvReac Intermediate altered Verified 04/02/21 14:33 behavior betina AdvReac Mild RUNNY NOSE Verified 04/02/21 14:33 mustard AdvReac Mild RUNNY NOSE Verified 04/02/21 14:33 potato [POTATO] AdvReac Mild ITCHY NOSE Verified 04/02/21 14:33 soybean AdvReac Mild RUNNY NOSE Verified 04/02/21 14:33 Home Medications Medication Instructions Recorded Confirmed Last Taken Type hydroxychloroquine 200 mg tablet 200 mg PO BID tab 08/02/20 04/02/21 Unknown History (Plaquenil) Exam Exam Date and Time: April 09, 2021 1200 Height,Weight and Vital Signs: Height 5 ft 3 in Weight 95.254 kg Narrative Narrative: ECHO 07/2020 Conclusions: - The left ventricular systolic function is normal.? The visually estimated ejection fraction is between 60-65%. ? - Evidence suggests grade II (moderate) diastolic dysfunction. ? - There is moderate calcification of the aortic valve.? There is mild aortic valve stenosis.? - There is severe mitral annular calcification.? ? ? EKG 12/2020 sinus rhythm, 66/Min; sinus arrhythmia; leftward axis; normal IN/QTc CT neck- 06/2020-[facility]- proximal internal carotid artery stenosis-70% on the right side and 50% on the left side. Cardiac [id number] 2 vessel disease with SHINGLE GRADER of the RCA;? collaterals from distal circumflex; severe lesion in OM2 ostium, culprit, status post JACY Assessment and Plan Assessment Anesthesia Assessment: Chart Reviewed Documented by User: Medhat Jackson 04/10/21 08:11 HPI - Anesthesia Eval Consult details Narrative: 70yo F for Colonoscopy Xarelto for afib . On hold for procedure , as per patient cardiology on board . [facility] Past Medical History Medical History Atherosclerotic cardiovascular disease Chronic heart failure with preserved ejection fraction (HFpEF) Diabetes mellitus Diabetes type 2, uncontrolled Diabetic neuropathy Dizziness Dyslipidemia Essential hypertension Head injury Hospital discharge follow-up Iron deficiency anemia Ischemic stroke Left hand pain Left hip pain Left knee pain Left shoulder pain Lumbar degenerative disc disease Obesity due to excess calories Other and unspecified hyperlipidemia Paroxysmal atrial fibrillation Proteinuria Pulmonary hypertension Pure hypercholesterolemia Thrombus 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 Urge urinary incontinence Functional capacity: wheelchair bound Family History Family History Father Rectal cancer Hypertension Arthritis of knee CVD (cardiovascular disease) Mother Hypertension CVD (cardiovascular disease) Myocardial infarction Diabetes Family history of problems with anesthesia: No Surgical History Surgical History History of Mohs micrographic surgery for skin cancer History of partial hysterectomy Hx of cardiac cath Hx of cervical spine surgery History of Problems with Anesthesia: Yes (Ponv ) Social History Social History Household Members: Spouse Housing: House Are you a primary healthcare advisory services manager to a significant other at home: No Do you presently have visiting nurse or other home services: No Alcohol intake: never Patient Tobacco Use Status: Never used Tobacco e-Cigarette/Vaping Use: Never Used Second Hand Smoke Exposure: No Use of substances other than those prescribed or required for medical reasons: No Have you been hit, kicked, punched, or otherwise hurt by someone within the past year? If so, by whom?: No Are you DNR?: No Advance Directives: Yes Advance Directives Information Provided: No Advance Directives on File: Yes Advance Directives Date on File: 07/17/20 Recently lost weight without trying: No Nutrition Risks: No Nutritional Risk service: No Current occupational status: retired Current occupation: Lt handed Meds Allergies Allergy/AdvReac Type Severity Reaction Status Date / Time sulfamethoxazole Allergy Intermediate RASH Verified 04/02/21 14:33 trimethoprim Allergy Intermediate RASH Verified 04/02/21 14:33 cefdinir Allergy Mild hives Verified 04/02/21 14:33 morphine [Morphine] Allergy Mild ITCHING, Verified 04/02/21 14:33 hives duloxetine AdvReac Intermediate altered Verified 04/02/21 14:33 behavior betina AdvReac Mild RUNNY NOSE Verified 04/02/21 14:33 mustard AdvReac Mild RUNNY NOSE Verified 04/02/21 14:33 potato [POTATO] AdvReac Mild ITCHY NOSE Verified 04/02/21 14:33 soybean AdvReac Mild RUNNY NOSE Verified 04/02/21 14:33 Home Medications Medication Instructions Recorded Confirmed Last Taken Type hydroxychloroquine 200 mg tablet 200 mg PO BID tab 08/02/20 04/02/21 Unknown History (Plaquenil) Exam Airway Mallampati Class: III TM Dist: >3cm Neck ROM: Limited (Limited with pain ) Loose/Missing/Broken Teeth: Yes Heart: rrr Lungs: bl breath sounds Assessment and Plan Final Anesthetic Review Family History of Problems with Anesthesia: No History of Problems with Anesthesia: Yes (Ponv ) NPO: Yes ASA Class: III Final Preanesthetic Review: Meds/Allgs Chart Reviewed and Anes Risks/Benef Reviewed Patient Risk: Intermediate Procedure Risk: Intermediate Anesthetic Plan Anesthetic Plan: MAC: Disposition: Standard PACU
[2021-04-10 07:59] VITALS: BMI 37.2
[2021-04-10 07:59] LABS: Glucose, Whole Blood 75 mg/dL (60-115)
--- NOTE | 2021-04-10 08:09 | P.HPSUR_ITS ---
Pre-Procedural Eval Section A Date of Service: 04/10/21 Section B Chief Complaint: screening Details of Present Illness: See H&P no changes Relevant Family History (Specify if Yes): Yes Relevant Social History: None Present Medications: see Short Stay Collaborative assessment Medical History: Significant History (see H&P no changes) History of Previous Operations: No relevant previous surgery Allergies: Allergies Allergy/AdvReac Type Severity Reaction Status Date / Time sulfamethoxazole Allergy Intermediate RASH Verified 04/02/21 14:33 trimethoprim Allergy Intermediate RASH Verified 04/02/21 14:33 cefdinir Allergy Mild hives Verified 04/02/21 14:33 morphine [Morphine] Allergy Mild ITCHING, Verified 04/02/21 14:33 hives duloxetine AdvReac Intermediate altered Verified 04/02/21 14:33 behavior betina AdvReac Mild RUNNY NOSE Verified 04/02/21 14:33 mustard AdvReac Mild RUNNY NOSE Verified 04/02/21 14:33 potato [POTATO] AdvReac Mild ITCHY NOSE Verified 04/02/21 14:33 soybean AdvReac Mild RUNNY NOSE Verified 04/02/21 14:33 Review of Systems Sugical H&P ROS: Negative: Constitution, Cardiovascular, Respiratory, Neurological, Psychiatric, Hem-Onc, Allergic/Immunologic, Gastrointestinal, Genitourinary, Musculoskeletal, Integumentary, Endocrine and Eyes/Ears/Nose/Throat Exam Surgical H&P Exam: Normal: HEENT, Normal: Heart, Normal: Lungs, Normal: Extr emities, Normal: Abdomen, Normal: Skin and Normal: Neurological Plan Diagnosis/Plan: Unchanged I have reviewed the history and physical and performed a pertinent physical examination on my patient. No changes have occurred unless specified.
[2021-04-10 08:24] VITALS: BP 124/41; PULSE 54; RESP 18; TEMP 36.3; O2SAT 99
[2021-04-10 09:11] VITALS: BP 140/52; PULSE 59; RESP 15; TEMP 36.5; O2SAT 98
--- NOTE | 2021-04-10 09:11 | PM.OP ---
Brief Operative Note Date of Service: 04/10/21 Pre-op diagnosis: screening Post-op diagnosis: same (colon polyps) Procedure: colonoscopy Surgeon: Oscar Raman Anesthesia: MAC Was an Operational Communication Chief used for this Procedure?: No Estimated blood loss (mL): 5 Pathology: other (multiple polyps) Condition: stable Disposition: PACU
[2021-04-10 09:20] LABS: Glucose, Whole Blood 177 mg/dL (60-115)
[2021-04-10 09:27] VITALS: BP 124/49; PULSE 60; RESP 16; TEMP 36.5; O2SAT 98
--- NOTE | 2021-04-10 09:29 | OP_ITS ---
SURGEON: Oscar Raman MD INDICATIONS: Colon cancer screening and prior history of adenomatous colon polyps as well as family history of colon cancer. PREOPERATIVE DIAGNOSIS: POSTOPERATIVE DIAGNOSIS: PROCEDURE PERFORMED: Colonoscopy to the cecum with, snare polypectomy, and cauterization of colon polyp. ESTIMATED BLOOD LOSS: COMPLICATIONS: ANESTHESIA: ASSISTANTS: SPECIMENS: MEDICATIONS: Monitored anesthesia care. DESCRIPTION OF PROCEDURE: History and physical performed. The risks and benefits of the procedure were explained to the patient. Informed consent was obtained. The patient was placed in the left lateral decubitus position. A digital rectal exam was performed and was found to be normal. The Olympus pediatric video colonoscope was introduced into the rectum and advanced to the cecum without difficulty. The cecum was identified by transillumination, palpation, and identification of ileocecal valve. Abdominal wall pressure was used to assist in advancement of the scope. FINDINGS: The terminal ileum was not examined. There was some liquid stool in the right colon and cecum limiting the examination for detection of small polyps. This was washed and suctioned as best possible. Multiple polyps were identified and removed. In the cecum, was a less than 5 mm polyp, removed with biopsy forceps. In the right colon, was a 6 mm polyp, which was snared and cauterized with the tip of the snare. At 70 cm, were 2 polyps, which were removed with a snare. At 50 cm, a single polyp was removed with a snare. At 40 cm, a 10 mm polyp was removed with a snare. All other polyps were less than 10 mm. There was moderate sigmoid diverticulosis. Retroflexed examination showed small internal hemorrhoids. There was a 2 cm lipoma in the hepatic flexure. IMPRESSION: Colon polyps. RECOMMENDATIONS: 1. Follow up the biopsy results. 2. Further screening for colonoscopy is optional based on age. MD MARLON Ashley/MIGUEL / [id number] RANDY
== END 2021-04-10 10:08 | disposition home or self-care (01) ==
PROVIDERS: PCP Internal Medicine; Visit Provider Internal Medicine Gastroenterology
PROC: 0DJD8ZZ Inspection of Lower Intestinal Tract, Via Natural or Artificial Opening Endoscopic (ICD-10-PCS; CPT 45378; principal; 2021-04-10 07:30)
DX: Z12.11 Encounter for screening for malignant neoplasm of colon (principal); Z86.010 Personal history of colon polyps; Z80.0 Family history of malignant neoplasm of digestive organs; D12.0 Benign neoplasm of cecum; D12.2 Benign neoplasm of ascending colon; D12.4 Benign neoplasm of descending colon; D12.5 Benign neoplasm of sigmoid colon; K57.30 Diverticulosis of large intestine without perforation or abscess without bleeding; K64.8 Other hemorrhoids; D17.5 Benign lipomatous neoplasm of intra-abdominal organs; K21.9 Gastro-esophageal reflux disease without esophagitis; E11.9 Type 2 diabetes mellitus without complications; Z79.84 Long term (current) use of oral hypoglycemic drugs; I25.2 Old myocardial infarction; I10 Essential (primary) hypertension; I48.91 Unspecified atrial fibrillation; Z79.01 Long term (current) use of anticoagulants; Z79.899 Other long term (current) drug therapy; R26.81 Unsteadiness on feet; Z91.81 History of falling; Z90.49 Acquired absence of other specified parts of digestive tract; Z87.19 Personal history of other diseases of the digestive system; Z85.828 Personal history of other malignant neoplasm of skin; Z86.73 Personal history of transient ischemic attack (TIA), and cerebral infarction without residual deficits; Z87.891 Personal history of nicotine dependence
CPT/HCPCS: 45385; 82947; 88305

== ENCOUNTER 2021-04-12 21:58 | Emergency (ER) | payer MEDICARE, SELFPAY ==
--- NOTE | ~2021-04-12 | CT_ITS ---
EXAMINATION: CT HEAD WITHOUT CONTRAST CLINICAL INFORMATION: Headache. COMPARISON: Multiple priors. Most recent MR of the brain dated from 03/29/2021. TECHNIQUE: Contiguous axial imaging was performed from the skull base to vertex without intravenous administration of contrast. This CT examination was performed using dose optimization techniques as appropriate, variously including the following: *Automated exposure control *Adjustment of mA and/or kV according to patient size (this includes techniques or standardized protocols for targeted exams where dose is matched to indication/reason for exam; i.e. extremities or head) *Use of iterative reconstruction technique DLP: 738 mGy-cm FINDINGS: There is no evidence of acute intracranial hemorrhage or edematous territorial infarction. A few foci of hypoattenuation in the periventricular and deep white matter are consistent with mild microangiopathy. [place]-white matter differentiation is preserved. Redemonstration of chronic lacunar infarcts in the left basal ganglia, for instance as identified in the left internal capsule. Proportional prominence of the ventricles and sulcal spaces. No evidence for obstructive hydrocephalus. No abnormal mass effect or midline shift. No extra-axial fluid collections. No acute soft tissue or osseous abnormalities. The mastoid air cells and paranasal sinuses are clear. CT/CT head/brain wo con IMPRESSION: No evidence of acute intracranial hemorrhage or edematous territorial infarction.
--- NOTE | ~2021-04-12 | CT_ITS ---
EXAMINATION: CT cervical spine wo con CLINICAL INFORMATION: Reason for Exam fall COMPARISON: MRI cervical spine 03/15/2020. CT cervical spine 10/03/2015. TECHNIQUE: Routine unenhanced CT of the cervical spine with multiple coronal and sagittal reformatted images. Intravenous Contrast: None This CT examination was performed using dose optimization techniques as appropriate, variously including the following: *Automated exposure control *Adjustment of mA and/or kV according to patient size (this includes techniques or standardized protocols for targeted exams where dose is matched to indication/reason for exam; i.e. extremities or head) *Use of iterative reconstruction technique DLP: 643 mGy-cm FINDINGS: CT 3-C4-C5-C6 laminectomies are noted. Vertebral body alignment is within normal limits. 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 No focal subluxations or acute fractures are visualized. The internally visualized lung apices demonstrate minimal biapical pleural parenchymal scarring of the lungs. No prevertebral fluid collections or soft tissue inflammatory changes noted. Dense lateral carotid bulb calcific atherosclerosis visualized. A 1.2 cm nodule within the right lobe of the thyroid with eccentric dense calcification is visualized and is statistically most likely to be benign not definitively require additional imaging follow-up on the basis of this examination. The insulin visualized intracranial structures are grossly normal. CT/CT cervical spine wo con IMPRESSION: Unenhanced CT of the cervical spine: -No acute abnormalities. -Multilevel chronic spondylosis of the cervical spine and multilevel postsurgical changes as detailed above.
[2021-04-12 22:05] VITALS: BP 185/62; PULSE 67; RESP 18; TEMP 36.6; O2SAT 98; BMI 31.8
--- NOTE | 2021-04-12 22:23 | ECG_ITS ---
Test Reason : DIZZY Blood Pressure : / mmHG Vent. Rate : 066 BPM Atrial Rate : 066 BPM P-R Int : 176 ms QRS Dur : 104 ms QT Int : 444 ms P-R-T Axes : 086 037 028 degrees QTc Int : 465 ms Normal sinus rhythm Possible Inferior infarct , age undetermined Abnormal ECG When compared with ECG of 31-JUL-2020 13:02, QRS axis Shifted left Criteria for Lateral infarct are no longer Present Referred By: Charlotte Belcher Electronically Signed By:KEAGAN MONACO
[2021-04-12 22:33] LABS: Glucose, Whole Blood 191 mg/dL (60-115)
--- NOTE | 2021-04-12 22:36 | ED.HA ---
HPI - Headache General Chief Complaint: Headache Stated Complaint: headache Time Seen by Provider: 04/12/21 22:22 Source: patient and old records reviewed Mode of arrival: ambulatory Limitations: no limitations History of Present Illness MD elicited complaint: headache and other (R hand weakness) Pertinent past history: recent trauma (fell 1 rubi ago, also head MRI of brain on 03/29 for headaches new stroke L internal capsule seen not noted on CT scan 03/19/21) Onset (ago): month(s) (1) Onset description: gradually Location: generalized Severity: severe Quality & Timing: aching Exacerbating factors: none Relieving factors: nothing Context: recent head injury Associated symptoms: weakness (R hand) Treatments prior to arrival: other (had recent MRI with PCP notified of results today) Related Data Home Medications Medication Instructions Recorded Confirmed hydroxychloroquine 200 mg tablet 200 mg PO BID tab 08/02/20 04/02/21 (Plaquenil) Previous Rx's Medication Instructions Recorded atenolol 50 mg tablet 50 mg PO BID 90 Days #180 tab 08/25/20 cholecalciferol (vitamin D3) 50 2,000 unit PO DAILY 90 Days #90 tab 08/25/20 mcg (2,000 unit) tablet cyanocobalamin (vitamin B-12) 1,000 mcg PO DAILY 90 Days #90 tab 08/25/20 1,000 mcg tablet docusate sodium 100 mg capsule 100 mg PO BID PRN 90 Days #180 cap 08/25/20 (DOK) empagliflozin 25 mg tablet 25 mg PO QAM 90 Days #90 tab 08/25/20 (Jardiance) furosemide 40 mg tablet 40 mg PO BID 90 Days #180 tab 08/25/20 losartan 100 mg tablet 100 mg PO DAILY 90 Days #90 tab 08/25/20 metformin 1,000 mg tablet 1,000 mg PO BID 90 Days #180 tab 08/25/20 rosuvastatin 40 mg tablet (Crestor) 40 mg PO DAILY 90 Days #90 tab 08/25/20 sennosides 8.6 mg tablet (senna) 17.2 mg PO BEDTIME 90 Days #180 tab 08/25/20 nystatin 100,000 unit/gram topical 1 appl TOPICAL BID 30 Days #120 g 09/15/20 powder dulaglutide 3 mg/0.5 mL 3 mg (0.5 mL) SUBCUT QWEEK 28 Days 10/05/20 subcutaneous pen injector #2 ml (Trulicity) fenofibrate 160 mg tablet 160 mg PO DAILY 90 Days #90 tab 10/30/20 ferrous sulfate 325 mg (65 mg 325 mg PO DAILY 90 Days #90 tab 11/07/20 iron) tablet fluticasone propionate 50 1 spray INTRANASAL DAILY 90 Days 11/07/20 mcg/actuation nasal #16 g spray,suspension gabapentin 400 mg capsule 400 mg PO TID 90 Days #270 cap 11/07/20 loratadine 10 mg tablet (Allergy 10 mg PO DAILY PRN 90 Days #90 tab 11/07/20 Relief (loratadine)) rivaroxaban 20 mg tablet (Xarelto) 20 mg PO QPM 90 Days #90 tab 11/07/20 thiamine mononitrate (vit B1) 100 100 mg PO DAILY 90 Days #90 tab 11/07/20 mg tablet pen needle, diabetic 32 gauge x #50 ea 11/09/20 (BD Meghan 2nd Gen Pen Needle) blood sugar diagnostic (OneTouch #100 ea 12/16/20 Verio test strips) escitalopram oxalate 10 mg tablet 10 mg PO DAILY 90 Days #90 tab 01/03/21 (Lexapro) trazodone 100 mg tablet 100 mg PO BEDTIME PRN 90 Days #90 01/03/21 tab insulin degludec 100 unit/mL (3 6 unit (0.06 mL) SUBCUT DAILY 01/26/21 mL) subcutaneous pen ( Days #15 ml FlexTouch U-100 insulin) fesoterodine 8 mg tablet,extended 8 mg PO DAILY 90 Days #90 tab 02/15/21 release 24 hr (Toviaz) baclofen 10 mg tablet 5 mg PO TID PRN 90 Days #135 tab 02/20/21 amlodipine 10 mg tablet 10 mg PO DAILY 90 Days #90 tab 03/31/21 omeprazole 40 mg capsule,delayed 40 mg PO DAILY #90 cap 04/02/21 release oxycodone 5 mg tablet 5 mg PO Q6H PRN 30 Days #120 tab 04/11/21 odwawmbhuf-cjtqqwmadgukn-yhakrwwk 1 tab PO Q6H PRN #14 tab 04/13/21 50 mg-325 mg-40 mg tablet Allergies Allergy/AdvReac Type Severity Reaction Status Date / Time sulfamethoxazole Allergy Intermediate RASH Verified 04/02/21 14:33 trimethoprim Allergy Intermediate RASH Verified 04/02/21 14:33 cefdinir Allergy Mild hives Verified 04/02/21 14:33 morphine [Morphine] Allergy Mild ITCHING, Verified 04/02/21 14:33 hives duloxetine AdvReac Intermediate altered Verified 04/02/21 14:33 behavior betina AdvReac Mild RUNNY NOSE Verified 04/02/21 14:33 mustard AdvReac Mild RUNNY NOSE Verified 04/02/21 14:33 potato [POTATO] AdvReac Mild ITCHY NOSE Verified 04/02/21 14:33 soybean AdvReac Mild RUNNY NOSE Verified 04/02/21 14:33 Review of Systems Review of Systems: Constitutional : No Fever, No Chills, No Fatigue ENT/Mouth : No sore throat, No Rhinorrhea Eyes: No Eye Pain, No Swelling, No Redness Cardiovascular : No Chest Pain, No SOB, No Dyspnea on Exertion Respiratory : No Cough, No Sputum Gastrointestinal : No Nausea, No Vomiting, No Diarrhea, No abdominal Pain Genitourinary : No Dysuria, No Urinary Frequency, No Hematuria, Musculoskeletal : No joint pain, No Myalgias, No Joint Swelling Skin : No Skin Lesions, No rash Neuro : pos Weakness, No Numbness, No Dizziness, positive Headache Psych : No Anxiety/Panic, No Depression Heme/Lymph: No Bruising, No Bleeding,No Lymphadenopathy Endocrine : No Polyuria, No Polydipsia All other systems reviewed and are negative PMFSH Past Medical History Attestation statement: The following information was validated with the patient. Medical History Atherosclerotic cardiovascular disease Chronic heart failure with preserved ejection fraction (HFpEF) Diabetes mellitus Diabetes type 2, uncontrolled Diabetic neuropathy Dizziness Dyslipidemia Essential hypertension Head injury Hospital discharge follow-up Iron deficiency anemia Ischemic stroke Left hand pain Left hip pain Left knee pain Left shoulder pain Lumbar degenerative disc disease Obesity due to excess calories Other and unspecified hyperlipidemia Paroxysmal atrial fibrillation Proteinuria Pulmonary hypertension Pure hypercholesterolemia Thrombus 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 Urge urinary incontinence Surgical History History of Mohs micrographic surgery for skin cancer History of partial hysterectomy Hx of cardiac cath Hx of cervical spine surgery Family History Family History Father Rectal cancer Hypertension Arthritis of knee CVD (cardiovascular disease) Mother Hypertension CVD (cardiovascular disease) Myocardial infarction Diabetes Social History Social History Household Members: Spouse Housing: House Are you a primary day care home mother to a significant other at home: No Do you presently have visiting nurse or other home services: No Alcohol intake: never Patient Tobacco Use Status: Former Tobacco user e-Cigarette/Vaping Use: Never Used Second Hand Smoke Exposure: No Use of substances other than those prescribed or required for medical reasons: No Advance Directives: Yes Advance Directives on File: Yes Advance Directives Date on File: 07/17/20 service: No Current occupational status: retired Current occupation: Lt handed Physical Exam Vital Signs: Vital Signs: Last Vital Signs Temp 98 F 04/12/21 22:05 Pulse 61 04/13/21 01:00 Resp 18 04/13/21 01:00 BP 172/69 H 04/13/21 01:00 Pulse Ox 95 04/13/21 01:00 BMI result Body Mass Index 31.8 Appearance: Alert. Oriented X3. No acute distress. Eyes: Pupils equal, round and reactive to light. ENT: Pharynx normal. Neck: reports mild midline ttp CVS: Normal heart rate and rhythm. Pulses normal. Respiratory: No respiratory distress. Breath sounds normal. Abdomen: Soft and nontender. Skin: Skin warm and dry. Normal skin color. Normal skin turgor. Extremities: No lower extremity edema. No calf ttp Neuro: Oriented X 3. RUE color making supervisor 4+/5 otherwise intact. No sensory deficit. Course Course Course Narrative: so far no new findings on workup, BP improved lower DBP stable - if CT cervical spine negative she is on xarelto already in NSR there are no further treatments for stroke will DC home with headache medications feels much better wants to go home MDM - Headache MDM Narrative Medical decision making narrative: 70 yo female here with c/o HTN, DM, CHF, afib on xarelto, CVA from most recent MRI 03/29 comes in after a fall 1 month ago where she notes persistent headache along with R hand weakness (weakness x 2 weeks) she notes the headaches do not respond to her oxycodone. At this time labs, CT head for ICH, EKG, dispo per results and findings. Lab Data Result diagrams: 04/12/21 22:58 04/12/21 23:16 Labs: Lab Results 04/12/21 04/12/21 04/12/21 Range/Units 22:29 22:58 22:58 WBC 7.5 (4.8-10.8) X10*3/uL RBC 4.38 (4.20-5.50) X10*6/uL Hgb 12.6 (12.0-16.0) g/dl Hct 38.7 (37.0-47.0) % MCV 88.4 (80.0-98.0) fL MCH 28.8 (27.0-33.0) pg MCHC 32.6 (31.0-35.0) g/dl RDW 15.9 (11.0-16.0) % Plt Count 386 (160-400) X10*3/uL MPV 8.9 L (9.4-12.3) fL Immature Gran % (Auto) 0.5 H (0.0-0.4) % Neut % (Auto) 55.1 (45-73) % Lymph % (Auto) 27.8 (20-40) % [place] % (Auto) 12.4 H (2-11) % Eos % (Auto) 3.1 (0-4) % Baso % (Auto) 1.1 (0-2) % Lymph # (Auto) 2.1 (1.2-4.9) X10*3/uL [place] # (Auto) 0.9 (0.1-1.2) X10*3/uL Eos # (Auto) 0.2 (0.0-0.4) X10*3/uL Baso # (Auto) 0.1 (0.0-0.2) X10*3/uL Abs Immat Gran (auto) 0.04 H (0.00-0.03) X10*3/uL Absolute Neuts (auto) 4.1 (2.0-8.3) x10*3/uL Absolute Nucleated RBC 0.000 (0.0-0.012) X10*3/uL Nucleated RBC % (auto) 0.0 (0.0-0.2) /100WBC PT (9.9-13.0) SEC INR (0.9-1.1) APTT (24.1-38.0) SEC Sodium (135-145) mmol/L Potassium (3.3-5.1) mmol/L Chloride (96-108) mmol/L Carbon Dioxide (22-29) mmol/L Anion Gap (12-20) BUN (9-16) mg/dL Creatinine (0.5-1.4) mg/dL Estim Creat Clear Calc Estimated GFR POC Glucose 191 H (60-115) mg/dL Random Glucose (60-115) mg/dL Calcium (8.4-10.2) mg/dL Magnesium (1.6-2.6) mg/dL Total Bilirubin (0.0-1.0) mg/dL Direct Bilirubin (0.0-0.5) mg/dL AST (5-31) U/L ALT (0-31) U/L Alkaline Phosphatase (39-117) U/L Total Protein (6.5-8.0) g/dL Albumin (3.5-5.0) g/dL Urine Color Urine Appearance Urine pH (5.0-8.0) Ur Specific [place] (1.005-1.025) Urine Protein (NEG-TRACE) MG/DL Urine Glucose (UA) (NEG) MG/DL Urine Ketones (NEG) MG/DL Urine Blood (NEG) Urine Nitrite (NEG) Ur Leukocyte Esterase (NEG) Urine RBC (0) /HPF Urine WBC (0-4) /HPF Ur Squamous Epith Cells /LPF Urine Bacteria /LPF COVID-19 ([facility]) Negative (Negative) COVID-19 Clin Com See Note 04/12/21 04/12/21 04/12/21 Range/Units 23:16 23:16 23:16 WBC (4.8-10.8) X10*3/uL RBC (4.20-5.50) X10*6/uL Hgb (12.0-16.0) g/dl Hct (37.0-47.0) % MCV (80.0-98.0) fL MCH (27.0-33.0) pg MCHC (31.0-35.0) g/dl RDW (11.0-16.0) % Plt Count (160-400) X10*3/uL MPV (9.4-12.3) fL Immature Gran % (Auto) (0.0-0.4) % Neut % (Auto) (45-73) % Lymph % (Auto) (20-40) % [place] % (Auto) (2-11) % Eos % (Auto) (0-4) % Baso % (Auto) (0-2) % Lymph # (Auto) (1.2-4.9) X10*3/uL [place] # (Auto) (0.1-1.2) X10*3/uL Eos # (Auto) (0.0-0.4) X10*3/uL Baso # (Auto) (0.0-0.2) X10*3/uL Abs Immat Gran (auto) (0.00-0.03) X10*3/uL Absolute Neuts (auto) (2.0-8.3) x10*3/uL Absolute Nucleated RBC (0.0-0.012) X10*3/uL Nucleated RBC % (auto) (0.0-0.2) /100WBC PT 16.4 H (9.9-13.0) SEC INR 1.4 H (0.9-1.1) APTT 51.5 H (24.1-38.0) SEC Sodium 140 (135-145) mmol/L Potassium 3.8 (3.3-5.1) mmol/L Chloride 101 (96-108) mmol/L Carbon Dioxide 25 (22-29) mmol/L Anion Gap 18 (12-20) BUN 21 H (9-16) mg/dL Creatinine 1.12 (0.5-1.4) mg/dL Estim Creat Clear Calc 45.9 Estimated GFR 48 POC Glucose (60-115) mg/dL Random Glucose 202 H (60-115) mg/dL Calcium 9.6 (8.4-10.2) mg/dL Magnesium 1.9 (1.6-2.6) mg/dL Total Bilirubin 0.4 (0.0-1.0) mg/dL Direct Bilirubin 0.2 (0.0-0.5) mg/dL AST 28 (5-31) U/L ALT 22 (0-31) U/L Alkaline Phosphatase 71 D (39-117) U/L Total Protein 7.0 (6.5-8.0) g/dL Albumin 4.2 (3.5-5.0) g/dL Urine Color YELLOW Urine Appearance CLEAR Urine pH 5.5 (5.0-8.0) Ur Specific [place] <= 1.005 (1.005-1.025) Urine Protein TRACE (NEG-TRACE) MG/DL Urine Glucose (UA) >=1000 H (NEG) MG/DL Urine Ketones NEG (NEG) MG/DL Urine Blood TRACE (NEG) Urine Nitrite NEG (NEG) Ur Leukocyte Esterase NEG (NEG) Urine RBC 0-2 (0) /HPF Urine WBC 1-4 (0-4) /HPF Ur Squamous Epith Cells TRACE /LPF Urine Bacteria 3+ /LPF COVID-19 ([facility]) (Negative) COVID-19 Clin Com ECG Data Attestation: I personally reviewed and interpreted this ECG as follows: ECG interpretation date: 04/12/21 ECG interpretation time: 22:51 Interpretation: Rate: 66 Rhythm: NSR [place]: normal Normal P waves. Normal MALATHI. Normal QRS complex. Poor R wave progression ST T wave : normal no ALEXSANDRA qTC: normal prior studies: no acute ischemia The study has been interpreted contemporaneously by me. . Discharge Plan Discharge Clinical Impression: Acute headache Qualifiers: Headache type: post-traumatic Intractability: not intractable Qualified Code(s): G44.319 - Acute post-traumatic headache, not intractable Patient Disposition: Home, Self-Care Instructions: Acute Headache (ED) Additional Instructions: return to ED for any worsening symptoms or concerns Prescriptions: New wuvkofkfzv-wbkvxhrzzpeqx-abrs 50-325-40 mg tablet 1 tab PO Q6H PRN (Reason: pain) Qty: 14 RF: 0 No Action atenolol 50 mg tablet 50 mg PO BID 90 Days Qty: 180 RF: 3 cholecalciferol (vitamin D3) 50 mcg (2,000 unit) tablet 2,000 unit PO DAILY 90 Days Qty: 90 RF: 3 cyanocobalamin (vitamin B-12) 1,000 mcg tablet 1,000 mcg PO DAILY 90 Days Qty: 90 RF: 3 docusate sodium [DOK] 100 mg capsule 100 mg PO BID PRN (Reason: constipation) 90 Days Qty: 180 RF: 2 Jardiance 25 mg tablet 25 mg PO QAM 90 Days Qty: 90 RF: 3 furosemide 40 mg tablet 40 mg PO BID 90 Days Qty: 180 RF: 1 losartan 100 mg tablet 100 mg PO DAILY 90 Days Qty: 90 RF: 3 metformin 1,000 mg tablet 1,000 mg PO BID 90 Days Qty: 180 RF: 3 sennosides [senna] 8.6 mg tablet 17.2 mg PO BEDTIME 90 Days Qty: 180 RF: 3 rosuvastatin [Crestor] 40 mg tablet 40 mg PO DAILY 90 Days Qty: 90 RF: 3 nystatin 100,000 unit/gram powder 1 appl topical BID 30 Days Qty: 120 RF: 2 fenofibrate 160 mg tablet 160 mg PO DAILY 90 Days Qty: 90 RF: 3 (DME) pen needle, diabetic [BD Meghan 2nd Gen Pen Needle] 32 gauge x 5/32 needle See Rx Instructions .MEDSUPPLY Qty: 50 RF: 4 (DME) OneTouch Verio test strips Strip See Rx Instructions .Route Qty: 100 RF: 11 trazodone 100 mg tablet 100 mg PO BEDTIME PRN (Reason: sleep) 90 Days Qty: 90 RF: 1 escitalopram oxalate [Lexapro] 10 mg tablet 10 mg PO DAILY 90 Days Qty: 90 RF: 1 Tresiba FlexTouch U-100 100 unit/mL (3 mL) insulin pen 6 unit subcut DAILY 90 Days Qty: 15 RF: 1 Toviaz 8 mg tablet extended release 24 hr 8 mg PO DAILY 90 Days Qty: 90 RF: 3 baclofen 10 mg tablet 5 mg PO TID PRN (Reason: muscle pain) 90 Days Qty: 135 RF: 0 amlodipine 10 mg tablet 10 mg PO DAILY 90 Days Qty: 90 RF: 1 omeprazole 40 mg capsule,delayed release(DR/EC) 40 mg PO DAILY Qty: 90 RF: 1 oxycodone 5 mg tablet 5 mg PO Q6H PRN (Reason: pain) 30 Days Qty: 120 RF: 0 hydroxychloroquine [Plaquenil] 200 mg tablet 200 mg PO BID RF: 0 ferrous sulfate 325 mg (65 mg iron) tablet 325 mg PO DAILY 90 Days Qty: 90 RF: 3 gabapentin 400 mg capsule 400 mg PO TID 90 Days Qty: 270 RF: 1 loratadine [Allergy Relief (loratadine)] 10 mg tablet 10 mg PO DAILY PRN (Reason: allergy symptoms) 90 Days Qty: 90 RF: 3 fluticasone propionate 50 mcg/actuation spray,suspension 1 spray intranasal DAILY 90 Days Qty: 16 RF: 3 Xarelto 20 mg tablet 20 mg PO QPM 90 Days Qty: 90 RF: 1 Hold Instructions: Resume on 04/11/21. restart 04/11 thiamine mononitrate (vit B1) 100 mg tablet 100 mg PO DAILY 90 Days Qty: 90 RF: 3 Trulicity 3 mg/0.5 mL pen injector 3 mg subcut QWEEK 28 Days Qty: 2 RF: 6 Referrals: Marla Henderson MD [Primary Care Provider] - 2 days (for follow up of MRI and headaches)
[2021-04-12 23:02] LABS: MANUAL DIFF FLAG NO
[2021-04-12 23:04] LABS: Basophils Absolute Auto 0.1 X10*3/uL (0.0-0.2); Basophils Percent Auto 1.1 % (0-2); Eosinophils Absolute Auto 0.2 X10*3/uL (0.0-0.4); Eosinophils Percent Auto 3.1 % (0-4); Hematocrit 38.7 % (37.0-47.0); Hemoglobin 12.6 g/dl (12.0-16.0); Imm Gran Abs Auto 0.04 X10*3/uL (0.00-0.03); Imm Gran Pct Auto 0.5 % (0.0-0.4); Lymphocytes Absolute Auto 2.1 X10*3/uL (1.2-4.9); Lymphocytes Percent Auto 27.8 % (20-40); Mean Corpuscular HGB Conc 32.6 g/dl (31.0-35.0); Mean Corpuscular Hemoglobin 28.8 pg (27.0-33.0); Mean Corpuscular Volume 88.4 fL (80.0-98.0); Mean Platelet Volume 8.9 fL (9.4-12.3); Monocytes Absolute Auto 0.9 X10*3/uL (0.1-1.2); Monocytes Percent Auto 12.4 % (2-11); Neutrophils Absolute Auto 4.1 x10*3/uL (2.0-8.3); Neutrophils Percent Auto 55.1 % (45-73); Platelet Count 386 X10*3/uL (160-400); Red Blood Count 4.38 X10*6/uL (4.20-5.50); Red Cell Distribution Width 15.9 % (11.0-16.0); White Blood Count 7.5 X10*3/uL (4.8-10.8)
[2021-04-12] MEDS: HYDROmorphone HCl 0.5 MG/0.5 ML SYRINGE IVPUSH (23:17)
[2021-04-12] MEDS: ondansetron HCL 4 MG/2 ML VIAL IVPUSH (23:19)
[2021-04-12 23:24] LABS: COVID-19 Test Negative (Negative); IDNOW Serial# 9DD0AD1C
[2021-04-12 23:26] LABS: Appearance Urine CLEAR; Color Urine YELLOW; Glucose Urine UA >=1000 MG/DL (NEG); Leukocyte Esterase Urine NEG (NEG); Nitrite Urine NEG (NEG); PH 5.5 (5.0-8.0); Specific Gravity - Urine <= 1.005 (1.005-1.025); UACC Culture Trigger NO; Urine Blood TRACE (NEG); Urine Ketones NEG (NEG); Urine Protein TRACE MG/DL (NEG-TRACE)
[2021-04-12 23:32] LABS: INTERNATIONAL NORM RATIO 1.4 (0.9-1.1); Prothrombin Time 16.4 SEC (9.9-13.0)
[2021-04-12 23:35] LABS: Partial Thromboplastin Time 51.5 SEC (24.1-38.0)
[2021-04-12 23:57] LABS: Alanine Aminotransferase 22 U/L (0-31); Albumin Level 4.2 g/dL (3.5-5.0); Alkaline Phosphatase 71 U/L (39-117); Anion Gap 18 (12-20); Aspartate Amino Transferase 28 U/L (5-31); Bilirubin Direct 0.2 mg/dL (0.0-0.5); Bilirubin Total 0.4 mg/dL (0.0-1.0); Blood Urea Nitrogen 21 mg/dL (9-16); Calcium 9.6 mg/dL (8.4-10.2); Carbon Dioxide 25 mmol/L (22-29); Chloride 101 mmol/L (96-108); Creatinine Clr Calc Pharmacy 45.9; Estimated Glomerular Filt Rate 48; Glucose Random 202 mg/dL (60-115); Magnesium 1.9 mg/dL (1.6-2.6); Potassium 3.8 mmol/L (3.3-5.1); Sodium 140 mmol/L (135-145)
[2021-04-13 00:29] LABS: Bacteria Urine 3+ /LPF; RBC Urine 0-2 /HPF (0); Squamous Epithelial Cell Urine TRACE /LPF
[2021-04-13 01:00] VITALS: BP 172/69; PULSE 61; RESP 18; O2SAT 95
== END 2021-04-13 03:23 | disposition home or self-care (01) ==
PROVIDERS: Emergency Provider Emergency Medicine; PCP Internal Medicine
DX: G44.319 Acute post-traumatic headache, not intractable (principal); I11.0 Hypertensive heart disease with heart failure; I50.32 Chronic diastolic (congestive) heart failure; E11.9 Type 2 diabetes mellitus without complications; Z86.73 Personal history of transient ischemic attack (TIA), and cerebral infarction without residual deficits; Z79.01 Long term (current) use of anticoagulants; Z20.822 Contact with and (suspected) exposure to COVID-19
CPT/HCPCS: 36415; 70450; 72125; 80048; 80076; 81001; 82947; 83735; 85025; 85610; 85730; 87635; 93005; 96374; 96375; 99284; J1170; J2405

== ENCOUNTER → 2021-04-16 13:27 | Outpatient (BNVA) | payer MEDICARE, SELFPAY | PROVIDERS: PCP Internal Medicine | DX: N32.81 Overactive bladder (principal); N39.3 Stress incontinence (female) (male); N39.41 Urge incontinence | CPT/HCPCS: 51798; 99212 ==

== ENCOUNTER → 2021-04-18 13:44 | Outpatient (BNVA) | payer MEDICARE, SELFPAY | PROVIDERS: PCP Internal Medicine; Referring Provider Internal Medicine; Visit Provider Internal Medicine | DX: I25.10 Atherosclerotic heart disease of native coronary artery without angina pectoris (principal); I48.0 Paroxysmal atrial fibrillation; I50.32 Chronic diastolic (congestive) heart failure; I27.20 Pulmonary hypertension, unspecified; I10 Essential (primary) hypertension; E78.5 Hyperlipidemia, unspecified; Z86.73 Personal history of transient ischemic attack (TIA), and cerebral infarction without residual deficits | CPT/HCPCS: 99212 ==

== ENCOUNTER → 2021-05-18 14:09 | Outpatient (BNVA) | payer MEDICARE, SELFPAY | PROVIDERS: PCP Internal Medicine; Visit Provider Nurse Practitioner Gerontology | DX: E11.29 Type 2 diabetes mellitus with other diabetic kidney complication (principal); E11.42 Type 2 diabetes mellitus with diabetic polyneuropathy; I10 Essential (primary) hypertension; R80.9 Proteinuria, unspecified; E66.09 Other obesity due to excess calories; E78.5 Hyperlipidemia, unspecified; Z79.4 Long term (current) use of insulin; Z68.37 Body mass index [BMI] 37.0-37.9, adult | CPT/HCPCS: 82947; 83036; 99212 ==

== ENCOUNTER 2021-05-21 20:51 | Emergency (ER) | payer MEDICARE, SELFPAY ==
--- NOTE | ~2021-05-21 | XR_ITS ---
EXAMINATION: XR TOES, LEFT CLINICAL INFORMATION: Puncture wound left toe COMPARISON: None TECHNIQUE: 3 views of the left great toe FINDINGS: No air in the soft tissue. No radiopaque foreign body. No acute osseous abnormality. No fracture or dislocation. There is mild joint narrowing of the IP joint of the great toe without bone erosion or significant bone spurs. Small vessel calcifications in the soft tissues of the forefoot. XR/XR toe LT min 2V IMPRESSION: No acute abnormality of the left great toe.
--- NOTE | ~2021-05-21 | XR_ITS ---
EXAMINATION: XR KNEE, RIGHT CLINICAL INFORMATION: Pain. Swelling COMPARISON: Left knee 03/19/2021 TECHNIQUE: Four views of the right knee. FINDINGS: There is no fracture. No dislocation. There is moderate tricompartment degenerative change of joint narrowing and marginal bone spurs. No bone erosions. No chondrocalcinosis. No joint effusion. There are vascular calcifications in the thigh and upper calf. XR/XR knee RT 2V IMPRESSION: 1. No acute abnormality. 2. Degenerative joint disease of the knee.
[2021-05-21 20:56] VITALS: BP 135/46; PULSE 67; RESP 20; TEMP 36.1; O2SAT 97; BMI 36.3
[2021-05-21 23:10] LABS: Basophils Absolute Auto 0.1 X10*3/uL (0.0-0.2); Eosinophils Absolute Auto 0.2 X10*3/uL (0.0-0.4); Hematocrit 35.9 % (37.0-47.0); Hemoglobin 11.6 g/dl (12.0-16.0); Imm Gran Abs Auto 0.03 X10*3/uL (0.00-0.03); Imm Gran Pct Auto 0.4 % (0.0-0.4); Lymphocytes Percent Auto 26.2 % (20-40); MANUAL DIFF FLAG NO; Mean Corpuscular HGB Conc 32.3 g/dl (31.0-35.0); Mean Corpuscular Hemoglobin 28.9 pg (27.0-33.0); Mean Corpuscular Volume 89.5 fL (80.0-98.0); Mean Platelet Volume 9.4 fL (9.4-12.3); Monocytes Absolute Auto 0.8 X10*3/uL (0.1-1.2); Monocytes Percent Auto 10.6 % (2-11); Neutrophils Absolute Auto 4.5 x10*3/uL (2.0-8.3); Neutrophils Percent Auto 58.8 % (45-73); Platelet Count 312 X10*3/uL (160-400); Red Blood Count 4.01 X10*6/uL (4.20-5.50); Red Cell Distribution Width 15.5 % (11.0-16.0); White Blood Count 7.7 X10*3/uL (4.8-10.8)
--- NOTE | 2021-05-21 23:22 | ED.LOWEXIN ---
HPI - Extremity Injury (Lower) General Chief Complaint: Extremity Injury, Lower Stated Complaint: rt leg & ft swollen w/ lac on ft, on blood thinner Time Seen by Provider: 05/21/21 23:09 Source: patient Mode of arrival: ambulatory History of Present Illness HPI Narrative: 70-year-old female presents with concerns regarding right lower leg swelling for 2-3 days and states that it is ?radiating up into the knee and thigh?. Patient is currently on Xarelto and aspirin for AFib and recent CVA but has concerns she may have a DVT in her right leg. She otherwise denies orthopnea, racing heart, shortness breath on exertion, subjective fevers. In addition, patient states she has an injury to the left great toe after stepping on a nail 3 days ago. Related Data Home Medications Medication Instructions Recorded Confirmed hydroxychloroquine 200 mg tablet 200 mg PO BID tab 08/02/20 05/18/21 (Plaquenil) ferrous sulfate 325 mg (65 mg 325 mg PO DAILY 04/16/21 04/18/21 iron) tablet,delayed release ketoconazole 2 % topical cream appl TOPICAL BID 04/16/21 04/18/21 thiamine HCl (vitamin B1) 100 mg 100 mg PO DAILY 04/16/21 04/18/21 tablet Previous Rx's Medication Instructions Recorded atenolol 50 mg tablet 50 mg PO BID 90 Days #180 tab 08/25/20 cholecalciferol (vitamin D3) 50 2,000 unit PO DAILY 90 Days #90 tab 08/25/20 mcg (2,000 unit) tablet cyanocobalamin (vitamin B-12) 1,000 mcg PO DAILY 90 Days #90 tab 08/25/20 1,000 mcg tablet docusate sodium 100 mg capsule 100 mg PO BID PRN 90 Days #180 cap 08/25/20 (DOK) empagliflozin 25 mg tablet 25 mg PO QAM 90 Days #90 tab 08/25/20 (Jardiance) furosemide 40 mg tablet 40 mg PO BID 90 Days #180 tab 08/25/20 losartan 100 mg tablet 100 mg PO DAILY 90 Days #90 tab 08/25/20 metformin 1,000 mg tablet 1,000 mg PO BID 90 Days #180 tab 08/25/20 rosuvastatin 40 mg tablet (Crestor) 40 mg PO DAILY 90 Days #90 tab 08/25/20 sennosides 8.6 mg tablet (senna) 17.2 mg PO BEDTIME 90 Days #180 tab 08/25/20 nystatin 100,000 unit/gram topical 1 appl TOPICAL BID 30 Days #120 g 09/15/20 powder dulaglutide 3 mg/0.5 mL 3 mg (0.5 mL) SUBCUT QWEEK 28 Days 10/05/20 subcutaneous pen injector #2 ml (Trulicity) fenofibrate 160 mg tablet 160 mg PO DAILY 90 Days #90 tab 10/30/20 fluticasone propionate 50 1 spray INTRANASAL DAILY 90 Days 11/07/20 mcg/actuation nasal #16 g spray,suspension loratadine 10 mg tablet (Allergy 10 mg PO DAILY PRN 90 Days #90 tab 11/07/20 Relief (loratadine)) rivaroxaban 20 mg tablet (Xarelto) 20 mg PO QPM 90 Days #90 tab 11/07/20 pen needle, diabetic 32 gauge x #50 ea 11/09/20 (BD Meghan 2nd Gen Pen Needle) blood sugar diagnostic (OneTouch #100 ea 12/16/20 Verio test strips) escitalopram oxalate 10 mg tablet 10 mg PO DAILY 90 Days #90 tab 01/03/21 (Lexapro) trazodone 100 mg tablet 100 mg PO BEDTIME PRN 90 Days #90 01/03/21 tab insulin degludec 100 unit/mL (3 6 unit (0.06 mL) SUBCUT DAILY 90 01/26/21 mL) subcutaneous pen (Tresi Days #15 ml FlexTouch U-100 insulin) fesoterodine 8 mg tablet,extended 8 mg PO DAILY 90 Days #90 tab 02/15/21 release 24 hr (Toviaz) baclofen 10 mg tablet 5 mg PO TID PRN 90 Days #135 tab 02/20/21 amlodipine 10 mg tablet 10 mg PO DAILY 90 Days #90 tab 03/31/21 omeprazole 40 mg capsule,delayed 40 mg PO DAILY #90 cap 04/02/21 release mkgnyqtiqc-letjhhgkxvnvm-creqimvw 1 tab PO Q6H PRN #14 tab 04/13/21 50 mg-325 mg-40 mg tablet mirabegron 25 mg tablet,extended 25 mg PO DAILY 30 Days #30 tab 04/16/21 release 24 hr (Myrbetriq) aspirin 81 mg tablet,delayed 81 mg PO DAILY #90 tab 04/18/21 release (Enteric Coated Aspirin) gabapentin 400 mg capsule 400 mg PO TID 90 Days #270 cap 04/29/21 oxycodone 5 mg tablet 5 mg PO Q6H PRN 30 Days #120 tab 05/16/21 Allergies Allergy/AdvReac Type Severity Reaction Status Date / Time sulfamethoxazole Allergy Intermediate RASH Verified 05/21/21 21:08 trimethoprim Allergy Intermediate RASH Verified 05/21/21 21:08 cefdinir Allergy Mild hives Verified 05/21/21 21:08 morphine [Morphine] Allergy Mild ITCHING, Verified 05/21/21 21:08 hives duloxetine AdvReac Intermediate altered Verified 05/21/21 21:08 behavior betina AdvReac Mild RUNNY NOSE Verified 05/21/21 21:08 mustard AdvReac Mild RUNNY NOSE Verified 05/21/21 21:08 potato [POTATO] AdvReac Mild ITCHY NOSE Verified 05/21/21 21:08 soybean AdvReac Mild RUNNY NOSE Verified 05/21/21 21:08 Review of Systems Review of Systems: Pertinent positives and negatives as stated in HPI 10 point review of systems is otherwise negative. [facility] Past Medical History Source: nursing notes reviewed Medical History Atherosclerotic cardiovascular disease Chronic heart failure with preserved ejection fraction (HFpEF) CVA (cerebral vascular accident) Diabetes mellitus Diabetes type 2, uncontrolled Diabetic neuropathy Dizziness Dyslipidemia Essential hypertension Head injury Hospital discharge follow-up Iron deficiency anemia Ischemic stroke Left hand pain Left hip pain Left knee pain Left shoulder pain Lumbar degenerative disc disease Obesity due to excess calories Other and unspecified hyperlipidemia Paroxysmal atrial fibrillation Proteinuria Pulmonary hypertension Pure hypercholesterolemia Thrombus 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 Urge urinary incontinence Surgical History History of Mohs micrographic surgery for skin cancer History of partial hysterectomy Hx of cardiac cath Hx of cervical spine surgery Family History Family History Father Rectal cancer Hypertension Arthritis of knee CVD (cardiovascular disease) Mother Hypertension CVD (cardiovascular disease) Myocardial infarction Diabetes Social History Social History Household Members: Spouse Housing: House Are you a primary nurse behavioral health care to a significant other at home: No Do you presently have visiting nurse or other home services: No Alcohol intake: never Patient Tobacco Use Status: Former Tobacco user e-Cigarette/Vaping Use: Never Used Second Hand Smoke Exposure: No Advance Directives: Yes Advance Directives on File: Yes Advance Directives Date on File: 07/17/20 service: No Current occupational status: retired Current occupation: Lt handed Physical Exam Vital Signs: Vital Signs: Last Vital Signs Temp 96.9 F 05/21/21 20:56 Pulse 67 05/21/21 20:56 Resp 20 05/21/21 20:56 BP 135/46 L 05/21/21 20:56 Pulse Ox 97 05/21/21 20:56 BMI result Body Mass Index 36.3 VITAL SIGNS: Reviewed. GENERAL: Well developed, well nourished, in no acute distress. HEAD: Normocephalic/atraumatic EYES: PERRLA, EOMI OROPHARYNX: no oral lesions noted, posterior pharynx clear LUNGS: Normal breath sounds. No adventitious sounds or accessory muscle use. SpO2<97> CARDIOVASCULAR: Regular rate and rhythm without noted murmurs, no JVD or lower extremity edema. ABDOMEN: Soft, non-tender, non-distended with bowel sounds. RIGHT LOWER EXTREMITY: There is no obvious abnormality of the right lower extremity, no erythema/induration, no varicose veins noted, capillary refill is less than 3 seconds, palpable DP/PT with warm foot NEUROLOGIC: Alert and oriented x 4. Baseline strength deficits on the right side after her CVA. Course Course Course Narrative: 70-year-old female with history and clinical presentation with concerns for injury to the left great toe without evidence of infection and patient will received Tdap while here in the emergency room. On evaluation of the right lower extremity there is no clinical indications of infection, patient is afebrile, there is no ROCKWELL and patient is oxygenating well on room air. Patient is currently on both Xarelto and aspirin and it was explained to her that should she receiving any additional blood thinners the increase risk of bleeding would be significant. Low clinical suspicion for any DVT. Patient was strongly encouraged to follow-up with her primary care provider in the morning to assess for other reasons for her leg discomfort such as Shields cyst. All investigations were reviewed without acute findings from baseline. Patient has a scheduled appointment to see her senior c software developer and was encouraged to also discuss the knee pain. MDM - Extremity Injury (Lower) Lab Data Result diagrams: 05/21/21 23:05 05/21/21 23:05 Labs: Lab Results 05/21/21 Range/Units 23:05 WBC 7.7 (4.8-10.8) X10*3/uL RBC 4.01 L (4.20-5.50) X10*6/uL Hgb 11.6 L (12.0-16.0) g/dl Hct 35.9 L (37.0-47.0) % MCV 89.5 (80.0-98.0) fL MCH 28.9 (27.0-33.0) pg MCHC 32.3 (31.0-35.0) g/dl RDW 15.5 (11.0-16.0) % Plt Count 312 (160-400) X10*3/uL MPV 9.4 (9.4-12.3) fL Immature Gran % (Auto) 0.4 (0.0-0.4) % Neut % (Auto) 58.8 (45-73) % Lymph % (Auto) 26.2 (20-40) % Morrow % (Auto) 10.6 (2-11) % Eos % (Auto) 3.0 (0-4) % Baso % (Auto) 1.0 (0-2) % Lymph # (Auto) 2.0 (1.2-4.9) X10*3/uL Morrow # (Auto) 0.8 (0.1-1.2) X10*3/uL Eos # (Auto) 0.2 (0.0-0.4) X10*3/uL Baso # (Auto) 0.1 (0.0-0.2) X10*3/uL Abs Immat Gran (auto) 0.03 (0.00-0.03) X10*3/uL Absolute Neuts (auto) 4.5 (2.0-8.3) x10*3/uL Absolute Nucleated RBC 0.000 (0.0-0.012) X10*3/uL Nucleated RBC % (auto) 0.0 (0.0-0.2) /100WBC Discharge Plan Discharge Clinical Impression: Lower extremity pain, right, Minor injury of toe Patient Disposition: Home, Self-Care Instructions: Bakers Cyst (ED) Additional Instructions: 1. Resume all home medications as prescribed. You received a tetanus shot today. Gently cleanse left toe with soap and water and keep dry. May use antibiotic ointment. 2. Suspect she may have an associated Shields cyst that is contributing to the discomfort of your right lower extremity. 3. Recommend following up with your primary care provider in the morning for re-evaluation and further management. Return to the ER for worsening symptoms. Prescriptions: No Action atenolol 50 mg tablet 50 mg PO BID 90 Days Qty: 180 RF: 3 cholecalciferol (vitamin D3) 50 mcg (2,000 unit) tablet 2,000 unit PO DAILY 90 Days Qty: 90 RF: 3 cyanocobalamin (vitamin B-12) 1,000 mcg tablet 1,000 mcg PO DAILY 90 Days Qty: 90 RF: 3 docusate sodium [DOK] 100 mg capsule 100 mg PO BID PRN (Reason: constipation) 90 Days Qty: 180 RF: 2 Jardiance 25 mg tablet 25 mg PO QAM 90 Days Qty: 90 RF: 3 furosemide 40 mg tablet 40 mg PO BID 90 Days Qty: 180 RF: 1 losartan 100 mg tablet 100 mg PO DAILY 90 Days Qty: 90 RF: 3 metformin 1,000 mg tablet 1,000 mg PO BID 90 Days Qty: 180 RF: 3 sennosides [senna] 8.6 mg tablet 17.2 mg PO BEDTIME 90 Days Qty: 180 RF: 3 rosuvastatin [Crestor] 40 mg tablet 40 mg PO DAILY 90 Days Qty: 90 RF: 3 nystatin 100,000 unit/gram powder 1 appl topical BID 30 Days Qty: 120 RF: 2 fenofibrate 160 mg tablet 160 mg PO DAILY 90 Days Qty: 90 RF: 3 (DME) pen needle, diabetic [BD Meghan 2nd Gen Pen Needle] 32 gauge x 5/32 needle See Rx Instructions .MEDSUPPLY Qty: 50 RF: 4 (DME) OneTouch Verio test strips Strip See Rx Instructions .Route Qty: 100 RF: 11 trazodone 100 mg tablet 100 mg PO BEDTIME PRN (Reason: sleep) 90 Days Qty: 90 RF: 1 escitalopram oxalate [Lexapro] 10 mg tablet 10 mg PO DAILY 90 Days Qty: 90 RF: 1 Tresiba FlexTouch U-100 100 unit/mL (3 mL) insulin pen 6 unit subcut DAILY 90 Days Qty: 15 RF: 1 Toviaz 8 mg tablet extended release 24 hr 8 mg PO DAILY 90 Days Qty: 90 RF: 3 baclofen 10 mg tablet 5 mg PO TID PRN (Reason: muscle pain) 90 Days Qty: 135 RF: 0 amlodipine 10 mg tablet 10 mg PO DAILY 90 Days Qty: 90 RF: 1 omeprazole 40 mg capsule,delayed release(DR/EC) 40 mg PO DAILY Qty: 90 RF: 1 gabapentin 400 mg capsule 400 mg PO TID 90 Days Qty: 270 RF: 1 oxycodone 5 mg tablet 5 mg PO Q6H PRN (Reason: pain) 30 Days Qty: 120 RF: 0 hydroxychloroquine [Plaquenil] 200 mg tablet 200 mg PO BID RF: 0 rvazggroly-wsficibqpoiho-byqt 50-325-40 mg tablet 1 tab PO Q6H PRN (Reason: pain) Qty: 14 RF: 0 loratadine [Allergy Relief (loratadine)] 10 mg tablet 10 mg PO DAILY PRN (Reason: allergy symptoms) 90 Days Qty: 90 RF: 3 fluticasone propionate 50 mcg/actuation spray,suspension 1 spray intranasal DAILY 90 Days Qty: 16 RF: 3 Xarelto 20 mg tablet 20 mg PO QPM 90 Days Qty: 90 RF: 1 Hold Instructions: Resume on 04/11/21. restart 04/11 Trulicity 3 mg/0.5 mL pen injector 3 mg subcut QWEEK 28 Days Qty: 2 RF: 6 aspirin [Enteric Coated Aspirin] 81 mg tablet,delayed release (DR/EC) 81 mg PO DAILY Qty: 90 RF: 4 ketoconazole 2 % cream topical BID RF: 0 thiamine HCl (vitamin B1) 100 mg tablet 100 mg PO DAILY RF: 0 ferrous sulfate 325 mg (65 mg iron) tablet,delayed release (DR/EC) 325 mg PO DAILY RF: 0 Myrbetriq 25 mg tablet extended release 24 hr 25 mg PO DAILY 30 Days Qty: 30 RF: 1
[2021-05-21 23:25] LABS: D Dimer High Sensitivity 197 NG/ML
[2021-05-21] MEDS: Diphth,Pertus(ACell),Tet Adult 0.5 ML SYRINGE IM (23:50)
[2021-05-21 23:57] LABS: Alanine Aminotransferase 16 U/L (0-31); Albumin Level 4.1 g/dL (3.5-5.0); Alkaline Phosphatase 62 U/L (39-117); Anion Gap 14 (12-20); Aspartate Amino Transferase 19 U/L (5-31); Bilirubin Total 0.3 mg/dL (0.0-1.0); Blood Urea Nitrogen 42 mg/dL (9-16); Calcium 9.6 mg/dL (8.4-10.2); Carbon Dioxide 29 mmol/L (22-29); Chloride 100 mmol/L (96-108); Estimated Glomerular Filt Rate 40; Glucose Random 106 mg/dL (60-115); Potassium 4.1 mmol/L (3.3-5.1); Sodium 139 mmol/L (135-145); Total Protein 6.8 g/dL (6.5-8.0)
[2021-05-22 00:05] VITALS: BP 120/64; PULSE 65; RESP 16; O2SAT 98
== END 2021-05-22 00:07 | disposition home or self-care (01) ==
PROVIDERS: Emergency Provider Student in an Organized Health Care Education/Training Program; PCP Internal Medicine
DX: M79.661 Pain in right lower leg (principal); S99.922A Unspecified injury of left foot, initial encounter; W22.8XXA Striking against or struck by other objects, initial encounter; E11.9 Type 2 diabetes mellitus without complications; E78.5 Hyperlipidemia, unspecified; I48.0 Paroxysmal atrial fibrillation; I10 Essential (primary) hypertension; Y93.9 Activity, unspecified; Y92.9 Unspecified place or not applicable; Y99.9 Unspecified external cause status; Z79.01 Long term (current) use of anticoagulants; Z86.73 Personal history of transient ischemic attack (TIA), and cerebral infarction without residual deficits; Z79.4 Long term (current) use of insulin; Z79.02 Long term (current) use of antithrombotics/antiplatelets; Z79.899 Other long term (current) drug therapy
CPT/HCPCS: 36415; 73560; 73660; 80053; 85025; 85379; 90471; 90715; 99283; 99284

== ENCOUNTER 2021-06-22 14:10 | Outpatient (REF) | payer MEDICARE, SELFPAY ==
[2021-06-22 15:26] LABS: Anion Gap 15 (12-20); Blood Urea Nitrogen 31 mg/dL (9-16); Calcium 9.9 mg/dL (8.4-10.2); Carbon Dioxide 29 mmol/L (22-29); Chloride 100 mmol/L (96-108); Estimated Glomerular Filt Rate 49; Glucose Random 123 mg/dL (60-115); Potassium 4.2 mmol/L (3.3-5.1); Sodium 140 mmol/L (135-145)
== END 2021-06-22 14:11 | disposition home or self-care (01) ==
LOC: HO.LAB 14:10
PROVIDERS: PCP Internal Medicine; Visit Provider Internal Medicine
DX: I48.0 Paroxysmal atrial fibrillation (principal)
CPT/HCPCS: 36415; 80048

== ENCOUNTER 2021-07-13 08:00 | Outpatient (RCR) | payer MEDICARE, SELFPAY ==
--- NOTE | 2021-05-31 15:33 | MHC.PT.EP ---
[facility] [place] Office [place] Office [place] Office [address] Charlene Hester [address] [phone] F: [phone] F: [phone] F: [phone] F: [phone] Physical Therapy Plan of Care Date of Evaluation:05/31/21 Date of Surgery: Diagnosis: Assessment: The patient reports a complicated medical history with long standing Mixed urinary incontinence. Her current lifestyle habits are likely increasing urgency and incontinence. Her lack of quick mobility likely also contributes to functional incontinence. Pt was given initial bladder log, bladder irritants list, and we discussed behavior and lifestyle habits that may help with continence such as log rolling to get out of bed, decreasing fluid 2 hours before bed, and reducing bladder irritants. We did not have time to do an internal exam of her PFM. We will continue this part of the evaluation next visit. The patient is a good candidate for skilled pelvic PT. Frequency and Duration: The patient will be seen 1x/week x 6 weeks. Short Term Goals: 1. Pt to be able to correctly activate her PFM to allow improved support to bowel and bladder. 2. Pt to be able to demonstrate a pre contraction before a cough 3. pt to be able to log roll correctly to reduce pressure on her pelvic floor. Intermediate Goals: 1. Pt to be able to show improved PFM contraction during functional movements such as a bridge or squat to help prevent or limit POP. 2. Pt to reduce # of episodes of LEV during the day by 50% to help improve quality of life and reduce pad usage. 3 Pt to be independent with final HEP to reduce relapse or reoccurrence of incontinence. Treatment Plan: Modalities to reduce pain, spasms and effusion. Manual therapy to restore motion and function. Therapeutic exercise to improve strength and flexibility. Neuromuscular re-education for posture and balance. Therapeutic activities to return to functional activities of daily living. Electronically signed by: Please sign and return to therapist. Thank you for your referral.
== END 2021-09-12 14:56 | disposition home or self-care (01) ==
LOC: HO.PT 08:00
PROVIDERS: PCP Internal Medicine
DX: N32.81 Overactive bladder (principal); N39.3 Stress incontinence (female) (male); N39.41 Urge incontinence
CPT/HCPCS: 97110; 97112; 97140; 97163; 97530

== ENCOUNTER 2021-07-20 08:33 | Day surgery (SDC) | payer MEDICARE, SELFPAY ==
[2021-07-16 10:24] VITALS: BMI 37.2
[2021-07-20] VITALS (7 sets, daily range): BP systolic 132–153; BP diastolic 40–89; PULSE 60–70; RESP 16–20; TEMP 36.3–37.1; O2SAT 92–97
--- NOTE | ~2021-07-20 | FL_ITS ---
EXAMINATION: XR FLUOROSCOPY WITH IMAGES CLINICAL INFORMATION: Lumbar spinal cord stimulator trial. COMPARISON: Fluoroscopic spot views 01/02/2021, lumbar radiographs 11/22/2020 TECHNIQUE: Fluoroscopy performed by Dr. Lio Kinsey. Fluoroscopy time: 0.6 minutes DAP: 30.1 Gycm2 Images: 3 FINDINGS: There are 2 spinal stimulator electrodes seen ascending the posterior spinal canal. The electrode tips are at level of mid thoracic spine, approximately the level of T7 and T8. There is no visible kinking or defect of the leads. FL/FL guidance in OR IMPRESSION: Fluoroscopy for pain management procedure.
--- NOTE | 2021-07-20 07:36 | MHC.SHP ---
Pre-Procedural Eval Section A Date of Service: 07/20/21 Section B Chief Complaint: Post laminectomy Syndrome Details of Present Illness: as above Relevant Family History (Specify if Yes): No Relevant Social History: None Present Medications: see Short Stay Collaborative assessment Medical History: No relevant PMH History of Previous Operations: Relevant previous surgery/procedure and date(s) Allergies: Allergies Allergy/AdvReac Type Severity Reaction Status Date / Time sulfamethoxazole Allergy Intermediate RASH Verified 07/17/21 14:23 trimethoprim Allergy Intermediate RASH Verified 07/17/21 14:23 cefdinir Allergy Mild hives Verified 07/17/21 14:23 morphine [Morphine] Allergy Mild ITCHING, Verified 07/17/21 14:23 hives duloxetine AdvReac Intermediate altered Verified 07/17/21 14:23 behavior betina AdvReac Mild RUNNY NOSE Verified 07/17/21 14:23 mustard AdvReac Mild RUNNY NOSE Verified 07/17/21 14:23 potato [POTATO] AdvReac Mild ITCHY NOSE Verified 07/17/21 14:23 soybean AdvReac Mild RUNNY NOSE Verified 07/17/21 14:23 Review of Systems Sugical H&P ROS: Negative: Cardiovascular, Respiratory, Neurological, Psychiatric, Hem-Onc, Allergic/Immunologic, Gastrointestinal, Genitourinary, Musculoskeletal, Integumentary, Endocrine and Eyes/Ears/Nose/Throat and Yes, Specify: Constitution (obesity) Exam Surgical H&P Exam: Normal: HEENT, Normal: Heart, Normal: Lungs, Normal: Extremities, Normal: Abdomen, Normal: Skin and Normal: Neurological Plan Diagnosis/Plan: Unchanged I have reviewed the history and physical and performed a pertinent physical examination on my patient. No changes have occurred unless specified.
[2021-07-20 09:16] LABS: Glucose, Whole Blood 164 mg/dL (60-115)
[2021-07-20] MEDS: Lactated Ringers 1,000 ML 50 ML IVCONT (09:35)
--- NOTE | 2021-07-20 10:12 | HO.ANESPROP2 ---
HPI - Anesthesia Eval Consult details Narrative: Chronic Pain PMFSH Active Problems Active Problems: All Active Problems (Updated 07/17/21 @ 14:39 by Marla Bray MD) Thiamine deficiency (Acute) Hand pain (Acute) Overactive bladder (Acute) Stress incontinence (Acute) CHF exacerbation (Acute) Hypertensive urgency (Acute) Thrombocytosis (Acute) Anemia (Acute) Spondylosis of cervical spine with radiculopathy (Acute) Bilateral lumbar radiculopathy (Acute) Degenerative disc disease (Acute) Spinal stenosis (Acute) Spondylosis of lumbosacral spine with radiculopathy (Acute) Avulsion fracture of lateral malleolus of right fibula (Acute) Osteoarthritis of right knee (Acute) Neck pain (Acute) Headache (Acute) CVA (cerebral vascular accident) (Acute) Head injury (Acute) Left shoulder pain (Acute) Left knee pain (Acute) Left hip pain (Acute) Left hand pain (Acute) Dizziness (Acute) Diabetic neuropathy (Acute) Diabetes type 2, uncontrolled (Acute) Type 2 diabetes mellitus with other diabetic kidney complication (Acute) Proteinuria (Acute) Essential hypertension (Acute) Type 2 diabetes mellitus with diabetic polyneuropathy (Acute) Dyslipidemia (Acute) Obesity due to excess calories (Acute) Other and unspecified hyperlipidemia (Acute) Chronic heart failure with preserved ejection fraction (HFpEF) (Acute) Pulmonary hypertension (Acute) Ischemic stroke (Acute) Paroxysmal atrial fibrillation (Acute) Atherosclerotic cardiovascular disease (Acute) Hospital discharge follow-up (Acute) Urge urinary incontinence (Acute) Iron deficiency anemia (Acute) Pure hypercholesterolemia (Acute) Diabetes mellitus (Acute) Lumbar degenerative disc disease (Acute) Past Medical History Medical History Atherosclerotic cardiovascular disease Chronic heart failure with preserved ejection fraction (HFpEF) CVA (cerebral vascular accident) Diabetes mellitus Diabetes type 2, uncontrolled Diabetic neuropathy Dizziness Dyslipidemia Essential hypertension Hand pain Head injury Hospital discharge follow-up Iron deficiency anemia Ischemic stroke Left hand pain Left hip pain Left knee pain Left shoulder pain Lumbar degenerative disc disease Obesity due to excess calories Other and unspecified hyperlipidemia Paroxysmal atrial fibrillation Proteinuria Pulmonary hypertension Pure hypercholesterolemia Thiamine deficiency Thrombus 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 Urge urinary incontinence Family History Family History Father Rectal cancer Hypertension Arthritis of knee CVD (cardiovascular disease) Mother Hypertension CVD (cardiovascular disease) Myocardial infarction Diabetes Family history of problems with anesthesia: No Surgical History Surgical History H/O colonoscopy History of Mohs micrographic surgery for skin cancer History of partial hysterectomy Hx of cardiac cath Hx of cervical spine surgery History of Problems with Anesthesia: Yes (Ponv ) Social History Social History Household Members: Spouse Housing: House Are you a primary home health care coordinator to a significant other at home: No Do you presently have visiting nurse or other home services: No Alcohol intake: never Patient Tobacco Use Status: Former Tobacco user Quit Date: 35 y/a e-Cigarette/Vaping Use: Never Used Second Hand Smoke Exposure: No Use of substances other than those prescribed or required for medical reasons: No Are you DNR?: No Advance Directives: Yes Advance Directives on File: Yes Advance Directives Date on File: 07/17/20 Recently lost weight without trying: No service: No Current occupational status: retired Current occupation: Lt handed Cognitive needs: Yes (scodor/walker) Hearing needs: No Vision needs: Yes (glasses) Meds Allergies Allergy/AdvReac Type Severity Reaction Status Date / Time sulfamethoxazole Allergy Intermediate RASH Verified 07/17/21 14:23 trimethoprim Allergy Intermediate RASH Verified 07/17/21 14:23 cefdinir Allergy Mild hives Verified 07/17/21 14:23 morphine [Morphine] Allergy Mild ITCHING, Verified 07/17/21 14:23 hives duloxetine AdvReac Intermediate altered Verified 07/17/21 14:23 behavior betina AdvReac Mild RUNNY NOSE Verified 07/17/21 14:23 mustard AdvReac Mild RUNNY NOSE Verified 07/17/21 14:23 potato [POTATO] AdvReac Mild ITCHY NOSE Verified 07/17/21 14:23 soybean AdvReac Mild RUNNY NOSE Verified 07/17/21 14:23 Active Medications: Current Medications Lactated Ringer's (Lr) 1,000 mls @ 50 mls/hr IVCONT .Q20H SHANON Last Admin: 07/20/21 09:35 Dose: 50 mls/hr Documented by: Home Medications Medication Instructions Recorded Confirmed Last Taken Type hydroxychloroquine 200 mg tablet 200 mg PO BID tab 08/02/20 07/17/21 Unknown History (Plaquenil) ferrous sulfate 325 mg (65 mg 325 mg PO DAILY 04/16/21 07/17/21 Unknown History iron) tablet,delayed release thiamine HCl (vitamin B1) 100 mg 100 mg PO DAILY 04/16/21 07/17/21 Unknown History tablet Exam Exam Date and Time: July 20, 2021 1012 Height,Weight and Vital Signs: Height 5 ft 3 in Weight 95.254 kg Last Vital Signs Temp 97.4 F 07/20/21 09:19 Pulse 65 07/20/21 09:19 Resp 18 07/20/21 09:19 BP 153/89 H 07/20/21 09:19 Pulse Ox 97 07/20/21 09:19 Pertinent Lab Results Pertinent Lab Results: Laboratory Tests 07/20/21 09:13 POC Glucose 164 H Airway Mallampati Class: III TM Dist: >3cm Neck ROM: Full Loose/Missing/Broken Teeth: Yes (poor dentition, many loose waiting on dentist appointment as per patient) Heart: [id number] Lungs: cta b/l Assessment and Plan Assessment Anesthesia Assessment: Anesthesia Plan Discussed and Chart Reviewed Final Anesthetic Review Family History of Problems with Anesthesia: No History of Problems with Anesthesia: Yes (Ponv ) NPO: Yes ASA Class: III Final Preanesthetic Review: No Changes in Pt Med Stat, Meds/Allgs Chart Reviewed, Consent Obtained/Reviewed and Anes Risks/Benef Reviewed Patient Risk: High Procedure Risk: Intermediate Assessment/Block/Sedation in SS: Assess/Block/Sedation- Anesthetic Plan Anesthetic Plan: MAC: and Agree w/ Assess. and Plan Disposition: Standard PACU
--- NOTE | 2021-07-20 10:47 | P.OP_ITS ---
Operative Note Operative Note Date of Service: 07/20/21 Narrative: ?Missy is a pleasant 71 y.o. female who came today into the operating room for trial of spinal cord stimulator Nevro for the treatment of post laminectomy syndrome. Preoperatively patient received Clindamicin 900 mg approximately 30 min before procedure. After obtaining informed consent patient was brought to the operating room, SHE was positioned prone on operating table, [place] [employer] monitors were applied and patient was deeply sedated.? The patient was taken inside of the operating room where he was positioned prone operating table.? Time-out was performed delineating correct site, side, the nature of the procedure, patient's allergy, preoperative antibiotic if needed.? All operating room staff was participating in OR time-out procedure. Patient's entire back was prepped with ChloraPrep twice and draped with full body fenestrated drape.? Sterilely draped C-arm was brought over operating field and sqare picture of T11-T12 L1 L2 vertebrae as were demonstrated on the screen.? Attention FIRST? was concentrated on the L1-L2 epidural interspace.? The location of the projection of the right pedicle center of the _L3 vertebra was found on the skin using C-arm.? This location was injected with mixture of lidocaine 2% and Marcaine 0.5% 5 cc.? After that 11 blade was used to make a sen on the skin.? 10 cm 14 gauge introducer epidural needle was inserted through the sen and advanced to L1-L2 epidural interspace.? The advancement of the needle was performed on anterior posterior and lateral views.?SHANNAN to air was used to detect epidural space. Guitar wire and loss of resistance technique were used to locate epidural space.? When guitar wire was spread in the epidural fashion, epidural lead was inserted through the skin and it was advanced to top T8 position PRACTICALLY at THE MIDLINE.? After that location of the projection of the LEFT pedicle center of the L3 vertebra was found on the skin using C-arm.? This location was injected with mixture of lidocaine 2% and Marcaine 0.5% 5 cc.? After that 11 blade was used to make a sen on the skin.? 10 cm 14 gauge curved introducer epidural needle was inserted through the sen and advanced to L1- L2 epidural interspace.? The a dvancement of the needle was performed on anterior posterior and lateral views.? Guitar wire and loss of resistance technique were used to locate epidural space.? When guitar wire was spread in the epidural fashion, epidural lead was inserted through the needle and advanced to the T9 epidural interspace slightly left to the existing line.After satisfactory position of the leads were established the needles were withdrawn, the stylette wires were removed from the epidural leads.?the position of the leads in the posterior epidural space was verified by C-Arm image. The anchoring devices were dislodged on the leads and advanced to the level of the skin.? The anchoring devices were sutured with two 0-0 silk sutures to the skin of the patient.? The screws were tighten on the anchoring devices until 3 clicks were heard. The leads were connected to testing device.? Bacitracin ointment was applied to the entrance point of bilateral needles.? Sterile dressing was applied to the patient's back.? The testing device was also glued to the patient's back.?
--- NOTE | 2021-07-20 12:04 | PM.OP ---
Brief Operative Note Date of Service: 07/20/21 Pre-op diagnosis: peripheral polineuropathy, spondylosis lumbar Post-op diagnosis: same Procedure: Trial of Nevro SCS Implants: none permanent Surgeon: Lio Kinsey MD Anesthesia: MAC Was an Inspector Eyeglass Frames used for this Procedure?: No Estimated blood loss (mL): 0 Pathology: none sent Condition: stable Disposition: PACU
== END 2021-07-20 13:15 ==
LOC: HO.SSS 08:34
PROVIDERS: PCP Internal Medicine; Visit Provider Anesthesiology
PROC: (CPT 63650; principal; 2021-07-20 09:50)
DX: M47.22 Other spondylosis with radiculopathy, cervical region (principal); M96.1 Postlaminectomy syndrome, not elsewhere classified; M47.27 Other spondylosis with radiculopathy, lumbosacral region; M51.36 Other intervertebral disc degeneration, lumbar region; M48.00 Spinal stenosis, site unspecified; M54.50 Low back pain, unspecified; I25.10 Atherosclerotic heart disease of native coronary artery without angina pectoris; I27.20 Pulmonary hypertension, unspecified; I11.0 Hypertensive heart disease with heart failure; I50.32 Chronic diastolic (congestive) heart failure; E78.5 Hyperlipidemia, unspecified; D50.9 Iron deficiency anemia, unspecified; E11.42 Type 2 diabetes mellitus with diabetic polyneuropathy; E11.29 Type 2 diabetes mellitus with other diabetic kidney complication; N28.9 Disorder of kidney and ureter, unspecified; Z79.4 Long term (current) use of insulin; Z79.899 Other long term (current) drug therapy; Z88.2 Allergy status to sulfonamides; Z88.8 Allergy status to other drugs, medicaments and biological substances; Z86.73 Personal history of transient ischemic attack (TIA), and cerebral infarction without residual deficits; Z98.890 Other specified postprocedural states; Z87.891 Personal history of nicotine dependence
CPT/HCPCS: 63650 ×2; 82947; C1713; C1778; J2250; J3010

== ENCOUNTER → 2021-07-26 09:48 | Outpatient (BNVA) | payer MEDICARE, SELFPAY | PROVIDERS: PCP Internal Medicine; Visit Provider Anesthesiology | DX: M47.22 Other spondylosis with radiculopathy, cervical region (principal); M47.27 Other spondylosis with radiculopathy, lumbosacral region; M48.00 Spinal stenosis, site unspecified | CPT/HCPCS: 99212 ==

== ENCOUNTER → 2021-08-16 12:35 | Outpatient (BNVA) | payer MEDICARE, SELFPAY | PROVIDERS: PCP Internal Medicine; Referring Provider Internal Medicine; Visit Provider Internal Medicine | DX: I11.0 Hypertensive heart disease with heart failure (principal); I50.32 Chronic diastolic (congestive) heart failure; I25.10 Atherosclerotic heart disease of native coronary artery without angina pectoris; I48.0 Paroxysmal atrial fibrillation; I27.20 Pulmonary hypertension, unspecified; E78.5 Hyperlipidemia, unspecified; Z86.73 Personal history of transient ischemic attack (TIA), and cerebral infarction without residual deficits | CPT/HCPCS: 99212 ==

== ENCOUNTER 2021-09-28 13:15 | Outpatient (REF) | payer MEDICARE, SELFPAY ==
--- NOTE | ~2021-09-28 | XR_ITS ---
EXAMINATION: XR CHEST CLINICAL INFORMATION: Covid infection COMPARISON: Previous chest x-ray November 2020 TECHNIQUE: Frontal view of the chest was obtained. FINDINGS: The cardiac and mediastinal contours are stable. The lungs are clear. There is no pleural effusion or pneumothorax. There are degenerative changes of the spine. XR/XR chest 1V IMPRESSION: Unremarkable examination.
== END 2021-09-28 13:16 | disposition home or self-care (01) ==
LOC: HO.XRAY 13:15
PROVIDERS: PCP Internal Medicine; Visit Provider Physician Assistant
DX: U07.1 COVID-19 (principal)
CPT/HCPCS: 71045

== ENCOUNTER → 2021-10-15 13:16 | Outpatient (BNVA) | payer MEDICARE, SELFPAY | PROVIDERS: PCP Internal Medicine | DX: N32.81 Overactive bladder (principal); Z79.899 Other long term (current) drug therapy | CPT/HCPCS: 51798; 99212 ==

== ENCOUNTER → 2021-10-22 09:38 | Outpatient (BNVA) | payer MEDICARE, SELFPAY | PROVIDERS: PCP Internal Medicine; Visit Provider Anesthesiology | DX: M47.22 Other spondylosis with radiculopathy, cervical region (principal); M47.27 Other spondylosis with radiculopathy, lumbosacral region; M48.00 Spinal stenosis, site unspecified; E11.42 Type 2 diabetes mellitus with diabetic polyneuropathy | CPT/HCPCS: Q3014 ==

== ENCOUNTER 2021-11-01 13:00 | Outpatient (RCR) | payer MEDICARE, SELFPAY ==
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
--- NOTE | 2021-11-01 14:44 | MHC.OT.DC ---
[address] [phone] F: [phone] Occupational Therapy Discharge Note Provider: Marla Bray Diagnosis: PAIN IN RIGHT HAND Date of Evaluation: 08/28/21 Date of Discharge: 11/01/21 Treatments to Date: 8 Cancellations to Date: 5 No Shows to Date: 0 Discharge Status: Improved Function Independent with HEP Discharge Summary: MS GARDNER HAS BEEN MOTIVATED, GOOD UNDERSTANDING OF HEP. UNFORTUNATELY, SHE CONTINUED TO REPORT HIGH PAIN IN B/L HANDS DESPITE IMPLEMENTING JT PROTECTION, HEAT, MASSAGE AND ARTHRITIS GLOVES. PROXIMAL UE STRENGTHENING WAS ALSO ADDRESSED DURING HER COURSE OF OT. SHE HAD GOOD TOLERANCE TO ISOMETRIC EXERCISES. MAY BENEFIT FROM REFERRAL TO PAIN CLINIC OR [facility] FOR PAIN THROUGHOUT. D/C OT SERVICES. Electronically Signed By: RIMA Cox/Gabriella Reviewed/agree with student documentation: N/A Therapist: Please Sign and return to therapist, thank you for your referral.
== END 2021-11-01 14:40 | disposition home or self-care (01) ==
LOC: HO.OT 13:00
PROVIDERS: PCP Internal Medicine; Visit Provider Internal Medicine
DX: M79.643 Pain in unspecified hand (principal)
CPT/HCPCS: 97018; 97110; 97140; 97166; 97530

== ENCOUNTER 2021-11-03 01:41 | Emergency (ER) | payer MEDICARE, SELFPAY ==
--- NOTE | 2021-11-03 | ECG_ITS ---
Test Reason : CHEST PAIN Blood Pressure : / mmHG Vent. Rate : 075 BPM Atrial Rate : 075 BPM P-R Int : 170 ms QRS Dur : 114 ms QT Int : 422 ms P-R-T Axes : 036 -44 009 degrees QTc Int : 471 ms Normal sinus rhythm Left axis deviation Minimal voltage criteria for LVH, may be normal variant ( [place] product ) Abnormal ECG When compared with ECG of 12-APR-2021 22:44, No significant change was found Referred By: Generic ED Physician Electronically Signed By:KELLY DIAZ MD
--- NOTE | ~2021-11-03 | XR_ITS ---
EXAMINATION: XR CHEST CLINICAL INFORMATION: Chest pain. COMPARISON: Chest radiograph 09/28/2021. TECHNIQUE: Frontal view of the chest was obtained. FINDINGS: Normal appearance of the cardiomediastinal structures. No effusions or pneumothoraces. Mild diffuse pulmonary vascular indistinctness. No focal pulmonary consolidation. Dense aortic calcific atherosclerosis. XR/XR chest 1V IMPRESSION: *Findings suspicious for mild pulmonary vascular congestion new compared with 09/28/2021.
[2021-11-03 01:46] VITALS: BP 176/72; PULSE 75; RESP 18; TEMP 36.7; O2SAT 99; BMI 37.2
[2021-11-03 02:11] LABS: Basophils Absolute Auto 0.1 X10*3/uL (0.0-0.2); Basophils Percent Auto 1.1 % (0-2); Eosinophils Absolute Auto 0.2 X10*3/uL (0.0-0.4); Eosinophils Percent Auto 2.8 % (0-4); Hemoglobin 11.7 g/dl (12.0-16.0); Imm Gran Abs Auto 0.04 X10*3/uL (0.00-0.03); Imm Gran Pct Auto 0.5 % (0.0-0.4); Lymphocytes Absolute Auto 2.3 X10*3/uL (1.2-4.9); Lymphocytes Percent Auto 27.9 % (20-40); MANUAL DIFF FLAG NO; Mean Corpuscular HGB Conc 32.5 g/dl (31.0-35.0); Mean Corpuscular Hemoglobin 28.1 pg (27.0-33.0); Mean Corpuscular Volume 86.5 fL (80.0-98.0); Mean Platelet Volume 8.7 fL (9.4-12.3); Monocytes Absolute Auto 0.9 X10*3/uL (0.1-1.2); Monocytes Percent Auto 10.4 % (2-11); Neutrophils Absolute Auto 4.7 x10*3/uL (2.0-8.3); Neutrophils Percent Auto 57.3 % (45-73); Platelet Count 475 X10*3/uL (160-400); Red Blood Count 4.16 X10*6/uL (4.20-5.50); Red Cell Distribution Width 16.2 % (11.0-16.0); White Blood Count 8.2 X10*3/uL (4.8-10.8)
[2021-11-03 02:24] VITALS: BP 149/53; PULSE 72; RESP 20; TEMP 36.7; O2SAT 96
--- NOTE | 2021-11-03 02:26 | PC.NURSE ---
PATIENT GOT PUT IN BED ,VITALS TAKEN AND PATIENT WAS HOOKED UP TO MARKETING COMMUNICATIONS SPECIALIST BY THIS PCT .
[2021-11-03 02:28] LABS: COVID-19 Test Negative (Negative)
[2021-11-03 02:32] LABS: B Type Natriuretic Peptide 182 pg/mL (<100); Troponin-I High Sensitivity 36.8 ng/L (<3.5-17.0)
[2021-11-03 02:36] LABS: Alanine Aminotransferase 13 U/L (0-31); Albumin Level 4.2 g/dL (3.5-5.0); Alkaline Phosphatase 53 U/L (39-117); Anion Gap 15 (12-20); Aspartate Amino Transferase 20 U/L (5-31); Bilirubin Total 0.2 mg/dL (0.0-1.0); Blood Urea Nitrogen 23 mg/dL (9-16); Calcium 9.8 mg/dL (8.4-10.2); Carbon Dioxide 24 mmol/L (22-29); Chloride 96 mmol/L (96-108); Creatinine Clr Calc Pharmacy 46.2; Estimated Glomerular Filt Rate 44; Glucose Random 128 mg/dL (60-115); Potassium 4.2 mmol/L (3.3-5.1); Sodium 131 mmol/L (135-145); Total Protein 7.1 g/dL (6.5-8.0)
--- NOTE | 2021-11-03 02:49 | ECG_ITS ---
Test Reason : CHANGES IN RYTHEM Blood Pressure : / mmHG Vent. Rate : 074 BPM Atrial Rate : 074 BPM P-R Int : 196 ms QRS Dur : 108 ms QT Int : 418 ms P-R-T Axes : 061 002 010 degrees QTc Int : 463 ms Normal sinus rhythm Minimal voltage criteria for LVH, may be normal variant ( [place] product ) Borderline ECG When compared with ECG of 03-NOV-2021 01:48, No significant change was found Referred By: Claudia Bowens Electronically Signed By:KELLY DIAZ MD
--- NOTE | 2021-11-03 02:49 | ED_ITS ---
HPI - Chest Pain General Chief Complaint: Chest Pain Stated Complaint: chest pain Time Seen by Provider: 11/03/21 02:06 Source: patient Mode of arrival: ambulatory Limitations: no limitations History of Present Illness HPI narrative: Patient comes emergency room complaining of epigastric burning, chest discomfort. Patient states that about 20 years ago she had the same symptoms, did return to service inspector to be heart attack . Patient also has history of AFib, states she has no palpitations, takes as indicated Xarelto and aspirin. Patient states that the epigastric burning sensation radiating into the chest started appr oximately 8-9 hours ago after eating a stuffed pepper Related Data Home Medications Medication Instructions Recorded Confirmed hydroxychloroquine 200 mg tablet 200 mg PO BID 08/02/20 10/03/21 (Plaquenil) COVID-19 antigen test (BinaxNOW #1 ea 10/15/21 COVID-19 Ag Self Test) estradiol g vaginal 10/15/21 ketoconazole 2 % topical cream appl topical 10/15/21 Previous Rx's Medication Instructions Recorded nystatin 100,000 unit/gram topical 1 appl topical BID 30 days #120 09/15/20 powder grams loratadine 10 mg tablet (Allergy 10 mg PO DAILY PRN allergy 11/07/20 Relief (loratadine)) symptoms 90 days #90 tabs rivaroxaban 20 mg tablet (Xarelto) 20 mg PO QPM 90 days #90 tabs 11/07/20 pen needle, diabetic 32 gauge x #50 ea 11/09/20 (BD Meghan 2nd Gen Pen Needle) insulin degludec 100 unit/mL (3 6 unit (0.06 mL) subcut DAILY 01/26/21 mL) subcutaneous pen (Tresi days #15 mL FlexTouch U-100 insulin) fesoterodine 8 mg tablet,extended 8 mg PO DAILY 90 days #90 tabs 02/15/21 release 24 hr (Toviaz) mirabegron 25 mg tablet,extended 25 mg PO DAILY 30 days #30 tabs 04/16/21 release 24 hr (Myrbetriq) aspirin 81 mg tablet,delayed 81 mg PO DAILY #90 tabs 04/18/21 release (Enteric Coated Aspirin) blood sugar diagnostic (OneTouch #100 ea 06/04/21 Verio test strips) fluticasone propionate 50 1 spray intranasal DAILY 90 days 06/04/21 mcg/actuation nasal #16 grams spray,suspension diclofenac sodium 1 % topical gel 2 g topical QID PRN pain 14 days 06/22/21 (Arthritis Pain (diclofenac)) #100 grams magnesium 200 mg tablet 200 mg PO DAILY #30 tabs 06/22/21 riboflavin (vitamin B2) 400 mg 400 mg PO DAILY #30 tabs 06/22/21 tablet atenolol 50 mg tablet 50 mg PO BID 90 days #180 tabs 06/29/21 cholecalciferol (vitamin D3) 50 2,000 unit PO DAILY 90 days #90 06/29/21 mcg (2,000 unit) tablet tabs escitalopram oxalate 10 mg tablet 10 mg PO DAILY 90 days #90 tabs 06/29/21 (Lexapro) sennosides 8.6 mg tablet (senna) 17.2 mg PO BEDTIME 90 days #180 06/29/21 tabs trazodone 100 mg tablet 100 mg PO BEDTIME PRN sleep 90 06/29/21 days #90 tabs clindamycin HCl 300 mg capsule 300 mg PO Q6H 7 days #28 caps 07/20/21 cyanocobalamin (vitamin B-12) 1,000 mcg PO DAILY 90 days #90 tabs 07/31/21 1,000 mcg tablet docusate sodium 100 mg capsule 100 mg PO BID PRN constipation 90 07/31/21 (DOK) days #180 caps dulaglutide 3 mg/0.5 mL 3 mg (0.5 mL) subcut QWEEK 28 days 07/31/21 subcutaneous pen injector #2 mL (Trulicity) empagliflozin 25 mg tablet 25 mg PO QAM 90 days #90 tabs 07/31/21 (Jardiance) ferrous sulfate 325 mg (65 mg 325 mg PO DAILY 90 days #90 tabs 07/31/21 iron) tablet,delayed release furosemide 40 mg tablet 40 mg PO BID 90 days #180 tabs 07/31/21 losartan 100 mg tablet 100 mg PO DAILY 90 days #90 tabs 07/31/21 metformin 1,000 mg tablet 1,000 mg PO BID 90 days #180 tabs 07/31/21 omeprazole 40 mg capsule,delayed 40 mg PO DAILY #90 caps 07/31/21 release rosuvastatin 40 mg tablet (Crestor) 40 mg PO DAILY 90 days #90 tabs 07/31/21 thiamine HCl (vitamin B1) 100 mg 100 mg PO DAILY 90 days #90 tabs 07/31/21 tablet enoxaparin 100 mg/mL subcutaneous 100 mg subcut Q12H #6 mL 08/20/21 syringe baclofen 10 mg tablet 5 mg PO TID PRN muscle pain 90 08/29/21 days #135 tabs amoxicillin 500 mg capsule 500 mg PO Q8H 7 days #21 caps 09/27/21 amlodipine 10 mg tablet 10 mg PO DAILY 90 days #90 tabs 09/28/21 fenofibrate 160 mg tablet 160 mg PO DAILY 90 days #90 tabs 09/28/21 gabapentin 400 mg capsule 400 mg PO TID 90 days #270 caps 09/28/21 oxycodone 5 mg tablet 5 mg PO Q6H PRN pain 30 days #120 10/15/21 tabs gabapentin 800 mg tablet 800 mg PO TID 30 days #90 tabs 10/22/21 [id number]-[id number]-[id number] 1 cap PO Q8H PRN pain #10 caps 11/03/21 50 mg-300 mg-40 mg capsule (Fioricet) omeprazole 40 mg capsule,delayed 40 mg PO DAILY #30 caps 11/03/21 release Allergies Allergy/AdvReac Type Severity Reaction Status Date / Time sulfamethoxazole Allergy Intermediate RASH Verified 10/22/21 09:39 trimethoprim Allergy Intermediate RASH Verified 10/22/21 09:39 cefdinir Allergy Mild hives Verified 10/22/21 09:39 morphine [Morphine] Allergy Mild ITCHING, Verified 10/22/21 09:39 hives duloxetine AdvReac Intermediate altered Verified 10/22/21 09:39 behavior betina AdvReac Mild RUNNY NOSE Verified 10/22/21 09:39 mustard AdvReac Mild RUNNY NOSE Verified 10/22/21 09:39 potato [POTATO] AdvReac Mild ITCHY NOSE Verified 10/22/21 09:39 soybean AdvReac Mild RUNNY NOSE Verified 10/22/21 09:39 Review of Systems Review of Systems: Constitutional : No Weight loss, No Fever, No Chills, No Night Sweats, No Fatigue, No Malaise ENT/Mouth : No Hearing loss, No Ear Pain, No Nasal Congestion, No Sinus Pain, No Hoarseness, No sore throat, No Rhinorrhea, No Swallowing Difficulty Eyes: No Eye Pain, No Swelling, No Redness, No Foreign Body, No Discharge, No Vision Changes Cardiovascular : No Chest Pain, No SOB, No Dyspnea on Exertion, No Orthopnea, No Edema, No Palpitations Respiratory : No Cough, No Sputum, No Wheezing, No Smoke Exposure, No Dyspnea Gastrointestinal : No Nausea, No Vomiting, No Diarrhea, No Constipation, No abdominal Pain, No Hematochezia, No Melena, complaining of 5th perigastric burning sensation Genitourinary : no irregular bleeding, No Dysuria, No Urinary Frequency, No Hematuria, No Urinary Incontinence, No Urgency, No Flank Pain, No Urinary Flow Changes, No Hesitancy Musculoskeletal : No joint pain, No Myalgias, No Joint Swelling Skin : No Skin Lesions, No rash Neuro : No Weakness, No Numbness, No Paresthesias, No Loss of Consciousness, No Dizziness, No Headache Psych : No Anxiety/Panic, No Depression, No SI/HI/AH/VH, No Social Issues, Heme/Lymph: No Bruising, No Bleeding,No Lymphadenopathy Endocrine : No Polyuria, No Polydipsia, No Temperature Intolerance [facility] Past Medical History Medical History Thrombus Surgical History H/O colonoscopy History of Mohs micrographic surgery for skin cancer History of partial hysterectomy Hx of cardiac cath Hx of cervical spine surgery Family History Family History Father Rectal cancer Hypertension Arthritis of knee CVD (cardiovascular disease) Mother Hypertension CVD (cardiovascular disease) Myocardial infarction Diabetes Social History Social History Household Members: Spouse Housing: House Are you a primary acute care physical therapist to a significant other at home: No Do you presently have visiting nurse or other home services: No Alcohol intake: never Patient Tobacco Use Status: Former Tobacco user Quit Date: 35 y/a e-Cigarette/Vaping Use: Never Used Second Hand Smoke Exposure: No Advance Directives: Yes Advance Directives on File: Yes Advance Directives Date on File: 07/17/20 service: No Current occupational status: retired Current occupation: Lt handed Cognitive needs: Yes (scodor/walker) Hearing needs: No Vision needs: Yes (glasses) Physical Exam Vital Signs: Vital Signs: Last Vital Signs Temp 98.1 F 11/03/21 02:24 Pulse 82 11/03/21 06:52 Resp 15 11/03/21 06:52 BP 156/67 H 11/03/21 06:52 Pulse Ox 97 11/03/21 06:52 O2 Del Method 11/03/21 06:52 BMI result Body Mass Index 37.2 Const: Other: Appearance: Alert. Oriented X3. No acute distress. Well appearing Eyes: Pupils equal, round and reactive to light. ENT: Pharynx normal. Neck: Normal inspection. Neck supple. No lymph nodes noted. No crepitus CVS: Normal heart rate and rhythm. Pulses normal. Normal S1 and S2 Respiratory: No respiratory distress. Breath sounds normal. No Wheezing. No rales Abdomen: Soft and nontender. No rigidity. No distention. Skin: Skin warm and dry. Normal skin color. Normal skin turgor. Extremities: No lower extremity edema. No Lacerations. No Rash Neuro: Oriented X 3. No motor deficit. No sensory deficit. Moving all extremities. No slurred speech. CN 2 through 12 grossly intact Psych: calm, cooperative, normal affect Course Course Course Narrative: Patient's troponin 1 and 2 are relatively stable. Patient states that she has no longer chest pain. However, patient is now complaining of a migraine headache. Patient given a 1 time dose of Fioricet. I will be sending for sit to the patient's pharmacy. EKG 2 Does not show any acute abnormalities Symptomatic improvement for headache pending, sign-out given to Dr. Bhatia. As mentioned above, patient no longer has chest pain. MDM - Chest Pain Lab Data Result diagrams: 11/03/21 01:56 11/03/21 01:56 Labs: Lab Results 11/03/21 11/03/21 11/03/21 Range/Units 01:56 01:56 01:56 WBC 8.2 (4.8-10.8) X10*3/uL RBC 4.16 L (4.20-5.50) X10*6/uL Hgb 11.7 L (12.0-16.0) g/dl Hct 36.0 L (37.0-47.0) % MCV 86.5 (80.0-98.0) fL MCH 28.1 (27.0-33.0) pg MCHC 32.5 (31.0-35.0) g/dl RDW 16.2 H (11.0-16.0) % Plt Count 475 H D (160-400) X10*3/uL MPV 8.7 L (9.4-12.3) fL Immature Gran % (Auto) 0.5 H (0.0-0.4) % Neut % (Auto) 57.3 (45-73) % Lymph % (Auto) 27.9 (20-40) % [place] % (Auto) 10.4 (2-11) % Eos % (Auto) 2.8 (0-4) % Baso % (Auto) 1.1 (0-2) % Lymph # (Auto) 2.3 (1.2-4.9) X10*3/uL [place] # (Auto) 0.9 (0.1-1.2) X10*3/uL Eos # (Auto) 0.2 (0.0-0.4) X10*3/uL Baso # (Auto) 0.1 (0.0-0.2) X10*3/uL Abs Immat Gran (auto) 0.04 H (0.00-0.03) X10*3/uL Absolute Neuts (auto) 4.7 (2.0-8.3) x10*3/uL Absolute Nucleated RBC 0.000 (0.0-0.012) X10*3/uL Nucleated RBC % (auto) 0.0 (0.0-0.2) /100WBC Sodium 131 L (135-145) mmol/L Potassium 4.2 (3.3-5.1) mmol/L Chloride 96 (96-108) mmol/L Carbon Dioxide 24 (22-29) mmol/L Anion Gap 15 (12-20) BUN 23 H (9-16) mg/dL Creatinine 1.19 (0.5-1.4) mg/dL Estim Creat Clear Calc 46.2 Estimated GFR 44 Random Glucose 128 H (60-115) mg/dL Calcium 9.8 (8.4-10.2) mg/dL Total Bilirubin 0.2 (0.0-1.0) mg/dL AST 20 (5-31) U/L ALT 13 (0-31) U/L Alkaline Phosphatase 53 (39-117) U/L Troponin I High Sens 36.8 H (<3.5-17.0) ng/L B-Natriuretic Peptide 182 H (<100) pg/mL Total Protein 7.1 (6.5-8.0) g/dL Albumin 4.2 (3.5-5.0) g/dL COVID-19 ([facility]) (Negative) COVID-19 Clin Com Influenza Type A ([facility]) (Negative) Influenza Type B ([facility]) (Negative) Influenza A & B Note 11/03/21 11/03/21 11/03/21 Range/Units 01:56 04:19 05:04 WBC (4.8-10.8) X10*3/uL RBC (4.20-5.50) X10*6/uL Hgb (12.0-16.0) g/dl Hct (37.0-47.0) % MCV (80.0-98.0) fL MCH (27.0-33.0) pg MCHC (31.0-35.0) g/dl RDW (11.0-16.0) % Plt Count (160-400) X10*3/uL MPV (9.4-12.3) fL Immature Gran % (Auto) (0.0-0.4) % Neut % (Auto) (45-73) % Lymph % (Auto) (20-40) % [place] % (Auto) (2-11) % Eos % (Auto) (0-4) % Baso % (Auto) (0-2) % Lymph # (Auto) (1.2-4.9) X10*3/uL [place] # (Auto) (0.1-1.2) X10*3/uL Eos # (Auto) (0.0-0.4) X10*3/uL Baso # (Auto) (0.0-0.2) X10*3/uL Abs Immat Gran (auto) (0.00-0.03) X10*3/uL Absolute Neuts (auto) (2.0-8.3) x10*3/uL Absolute Nucleated RBC (0.0-0.012) X10*3/uL Nucleated RBC % (auto) (0.0-0.2) /100WBC Sodium (135-145) mmol/L Potassium (3.3-5.1) mmol/L Chloride (96-108) mmol/L Carbon Dioxide (22-29) mmol/L Anion Gap (12-20) BUN (9-16) mg/dL Creatinine (0.5-1.4) mg/dL Estim Creat Clear Calc Estimated GFR Random Glucose (60-115) mg/dL Calcium (8.4-10.2) mg/dL Total Bilirubin (0.0-1.0) mg/dL AST (5-31) U/L ALT (0-31) U/L Alkaline Phosphatase (39-117) U/L Troponin I High Sens 29.3 H (<3.5-17.0) ng/L B-Natriuretic Peptide (<100) pg/mL Total Protein (6.5-8.0) g/dL Albumin (3.5-5.0) g/dL COVID-19 ([facility]) Negative (Negative) COVID-19 Clin Com See Note Influenza Type A ([facility]) Negative (Negative) Influenza Type B ([facility]) Negative (Negative) Influenza A & B Note See Note Discharge Plan Discharge Clinical Impression: Migraine, Epigastric burning sensation Patient Disposition: Still a Patient Instructions: Butalbital/Acetaminophen/Caffeine (By mouth) Additional Instructions: Please follow-up with your primary care physician tomorrow. If you have any worsening or new symptoms, please return to the emergency room or call 911 Prescriptions: New [id number]-[id number] [Fioricet] 50-300-40 mg capsule 1 cap PO Q8H PRN (Reason: pain) Qty: 10 0RF omeprazole 40 mg capsule,delayed release(DR/EC) 40 mg PO DAILY Qty: 30 0RF No Action nystatin 100,000 unit/gram powder 1 appl topical BID 30 Days Qty: 120 2RF (DME) pen needle, diabetic [BD Meghan 2nd Gen Pen Needle] 32 gauge x 5/32 needle See Rx Instructions .MEDSUPPLY Qty: 50 4RF Rx Instructions: once a day Tresiba FlexTouch U-100 100 unit/mL (3 mL) insulin pen 6 unit subcut DAILY 90 Days Qty: 15 1RF Toviaz 8 mg tablet extended release 24 hr 8 mg PO DAILY 90 Days Qty: 90 3RF (DME) OneTouch Verio test strips Strip See Rx Instructions .Route Qty: 100 11RF Rx Instructions: Use 1 test strips 4 times a day fluticasone propionate 50 mcg/actuation spray,suspension 1 spray intranasal DAILY 90 Days Qty: 16 3RF Rx Instructions: administer into each nostril trazodone 100 mg tablet 100 mg PO BEDTIME PRN (Reason: sleep) 90 Days Qty: 90 1RF escitalopram oxalate [Lexapro] 10 mg tablet 10 mg PO DAILY 90 Days Qty: 90 1RF atenolol 50 mg tablet 50 mg PO BID 90 Days Qty: 180 3RF sennosides [senna] 8.6 mg tablet 17.2 mg PO BEDTIME 90 Days Qty: 180 3RF cholecalciferol (vitamin D3) 50 mcg (2,000 unit) tablet 2,000 unit PO DAILY 90 Days Qty: 90 3RF clindamycin HCl 300 mg capsule 300 mg PO Q6H 7 Days Qty: 28 1RF Rx Instructions: take OTC probiotics 25 billion cultures in between the doses of antibiotics losartan 100 mg tablet 100 mg PO DAILY 90 Days Qty: 90 3RF ferrous sulfate 325 mg (65 mg iron) tablet,delayed release (DR/EC) 325 mg PO DAILY 90 Days Qty: 90 1RF omeprazole 40 mg capsule,delayed release(DR/EC) 40 mg PO DAILY Qty: 90 1RF Jardiance 25 mg tablet 25 mg PO QAM 90 Days Qty: 90 3RF metformin 1,000 mg tablet 1,000 mg PO BID 90 Days Qty: 180 3RF rosuvastatin [Crestor] 40 mg tablet 40 mg PO DAILY 90 Days Qty: 90 3RF thiamine HCl (vitamin B1) 100 mg tablet 100 mg PO DAILY 90 Days Qty: 90 1RF docusate sodium [DOK] 100 mg capsule 100 mg PO BID PRN (Reason: constipation) 90 Days Qty: 180 2RF furosemide 40 mg tablet 40 mg PO BID 90 Days Qty: 180 1RF cyanocobalamin (vitamin B-12) 1,000 mcg tablet 1,000 mcg PO DAILY 90 Days Qty: 90 3RF Trulicity 3 mg/0.5 mL pen injector 3 mg subcut QWEEK 28 Days Qty: 2 6RF enoxaparin 100 mg/mL syringe 100 mg subcut Q12H Qty: 6 0RF baclofen 10 mg tablet 5 mg PO TID PRN (Reason: muscle pain) 90 Days Qty: 135 0RF amoxicillin 500 mg capsule 500 mg PO Q8H 7 Days Qty: 21 0RF fenofibrate 160 mg tablet 160 mg PO DAILY 90 Days Qty: 90 3RF amlodipine 10 mg tablet 10 mg PO DAILY 90 Days Qty: 90 1RF gabapentin 400 mg capsule 400 mg PO TID 90 Days Qty: 270 1RF oxycodone 5 mg tablet 5 mg PO Q6H PRN (Reason: pain) 30 Days Qty: 120 0RF hydroxychloroquine [Plaquenil] 200 mg tablet 200 mg PO BID loratadine [Allergy Relief (loratadine)] 10 mg tablet 10 mg PO DAILY PRN (Reason: allergy symptoms) 90 Days Qty: 90 3RF Xarelto 20 mg tablet 20 mg PO QPM 90 Days Qty: 90 1RF Hold Instructions: Resume on 04/11/21. restart 04/11 diclofenac sodium [Arthritis Pain (diclofenac)] 1 % gel 2 g topical QID PRN (Reason: pain) 14 Days Qty: 100 0RF Rx Instructions: apply to single elbow, wrist or hand; for hand includes palm/fingers/back of hand magnesium 200 mg tablet 200 mg PO DAILY Qty: 30 0RF riboflavin (vitamin B2) 400 mg tablet 400 mg PO DAILY Qty: 30 0RF aspirin [Enteric Coated Aspirin] 81 mg tablet,delayed release (DR/EC) 81 mg PO DAILY Qty: 90 4RF ketoconazole 2 % cream topical (DME) IvanaxNOW COVID-19 Ag Self Test Kit See Rx Instructions .ROUTE DIRECTED Qty: 1 Rx Instructions: As directed estradiol 0.01 % (0.1 mg/gram) cream vaginal gabapentin 800 mg tablet 800 mg PO TID 30 Days Qty: 90 8RF Myrbetriq 25 mg tablet extended release 24 hr 25 mg PO DAILY 30 Days Qty: 30 1RF
[2021-11-03] MEDS: Simethicone 80 MG TAB.CHEW 160 MG PO (02:52)
[2021-11-03] MEDS: Magnesium Hydrox/Alum Hydrox 30 ML ORAL.SUSP PO (02:52)
[2021-11-03] MEDS: Lidocaine HCl Viscous 2 % 15 ML SOLUTION MUCOUS MEM (02:52)
[2021-11-03] MEDS: Aspirin Enteric Coated 325 MG TABLET.DR PO (03:42)
[2021-11-03 04:21] VITALS: BP 169/70; PULSE 79; RESP 20; O2SAT 95
[2021-11-03 04:39] LABS: Influenza A Negative (Negative); Influenza B2 Negative (Negative)
[2021-11-03 05:27] LABS: Troponin-I High Sensitivity 29.3 ng/L (<3.5-17.0)
[2021-11-03 06:52] VITALS: BP 156/67; PULSE 82; RESP 15; O2SAT 97
[2021-11-03 07:10] VITALS: BP 169/70; PULSE 90; RESP 20; O2SAT 96
[2021-11-03] MEDS: Butalb/Acetamin/Caff 50/325/40 TABLET 1 TAB PO (07:42)
== END 2021-11-03 08:17 | disposition home or self-care (01) ==
PROVIDERS: Nurse Practitioner Family; Emergency Provider Emergency Medicine; PCP Internal Medicine
DX: G43.909 Migraine, unspecified, not intractable, without status migrainosus (principal); R07.89 Other chest pain; R10.9 Unspecified abdominal pain; R06.02 Shortness of breath; Z79.899 Other long term (current) drug therapy; Z87.891 Personal history of nicotine dependence; Z20.822 Contact with and (suspected) exposure to COVID-19
CPT/HCPCS: 36415; 71045; 80053; 83880; 84484; 85025; 87502; 87635; 93005; 99283; 99284

== ENCOUNTER 2021-11-12 19:51 | Observation (INO) | payer MEDICARE, SELFPAY ==
--- NOTE | 2021-11-12 | ECG_ITS ---
Test Reason : FALL/WEAKNESS Blood Pressure : / mmHG Vent. Rate : 071 BPM Atrial Rate : 071 BPM P-R Int : 220 ms QRS Dur : 114 ms QT Int : 414 ms P-R-T Axes : 053 -43 003 degrees QTc Int : 449 ms Sinus rhythm with 1st degree A-V block Left axis deviation Minimal voltage criteria for LVH, may be normal variant ( [place] product ) Cannot rule out inferior infarct Abnormal ECG When compared with ECG of 03-NOV-2021 02:48, Cannot ruke out inferior infarct Referred By: Generic ED Physician Electronically Signed By:Reginald Amato
--- NOTE | ~2021-11-12 | CT_ITS ---
EXAMINATION: CT CERVICAL SPINE WITHOUT CONTRAST CLINICAL INFORMATION: Fall COMPARISON: 04/13/2021 TECHNIQUE: Contiguous helical images of the cervical spine were obtained without IV contrast. Multiplanar reconstructions were performed. This CT examination was performed using dose optimization techniques as appropriate, variously including the following: *Automated exposure control *Adjustment of mA and/or kV according to patient size (this includes techniques or standardized protocols for targeted exams where dose is matched to indication/reason for exam; i.e. extremities or head) *Use of iterative reconstruction technique DLP: 2703 mGy-cm in conjunction with thoracolumbar spine. FINDINGS: There is anatomic alignment of the vertebral bodies and posterior elements. Laminectomy defect spans from C3 through C6. The atlantoaxial and atlantooccipital articulations are intact. Vertebral body heights are maintained. There is multilevel intervertebral disc space narrowing with endplate osteophyte formation and facet arthropathy. Calcific pattern is at the dens. No evidence of acute fracture. No prevertebral soft tissue swelling. There is no cervical lymphadenopathy. The visualized thyroid gland is heterogeneous with a 1.3 cm hypoattenuating nodule seen in the right lobe, with associated calcification. No follow-up necessary. Appearance is unchanged.. The visualized base of the brain is unremarkable. CT/CT cervical spine wo con IMPRESSION: No evidence for acute injury to the cervical spine. Moderate degenerative changes throughout.
--- NOTE | ~2021-11-12 | CT_ITS ---
EXAMINATION: CT THORACIC SPINE WITHOUT CONTRAST CT LUMBAR SPINE WITHOUT CONTRAST CLINICAL INFORMATION: Fall COMPARISON: None TECHNIQUE: Multidetector volumetric imaging of the thoracic and lumbar spine performed without IV contrast. Coronal and sagittal reformatted images are obtained and reviewed. This CT examination was performed using dose optimization techniques as appropriate, variously including the following: *Automated exposure control *Adjustment of mA and/or kV according to patient size (this includes techniques or standardized protocols for targeted exams where dose is matched to indication/reason for exam; i.e. extremities or head) *Use of iterative reconstruction technique DLP: 2703 mGy-cm in conjunction with cervical CT . FINDINGS: There is no acute fracture or subluxation. There is grade 1 anterolisthesis of L4 on L5 which appears degenerative. Vertebral body height and alignment otherwise maintained. Diffuse disc space narrowing throughout the thoracolumbar spine with prominent endplate osteophytes. Many of these are bridging. Vacuum disc phenomenon throughout the lumbar spine. Extensive facet arthropathy at the lumbar spine. Multiple partially ossified posterior discs throughout the thoracic spine resulting in areas of mild spinal canal narrowing. The visualized lungs are clear. Dense coronary artery calcifications. Dense aortic calcifications. Colonic diverticulosis without diverticulitis. CT/CT lumbar spine wo con IMPRESSION: No acute fracture or malalignment of the thoracolumbar spine. Severe degenerative changes throughout. Multilevel posterior ossified discs at the thoracic spine resulting in spinal canal narrowing.
--- NOTE | ~2021-11-12 | CT_ITS ---
EXAMINATION: CT HEAD WITHOUT CONTRAST CLINICAL INFORMATION: Fall, COMPARISON: 04/12/2021 TECHNIQUE: Contiguous axial imaging was performed from the skull base to vertex without intravenous administration of contrast. This CT examination was performed using dose optimization techniques as appropriate, variously including the following: *Automated exposure control *Adjustment of mA and/or kV according to patient size (this includes techniques or standardized protocols for targeted exams where dose is matched to indication/reason for exam; i.e. extremities or head) *Use of iterative reconstruction technique DLP: 659 mGy-cm FINDINGS: There is no evidence of acute intracranial hemorrhage or territorial infarction. No abnormal mass effect or midline shift is seen. Aden to white matter differentiation is well preserved. No extra-axial fluid collections are identified. The ventricles and sulci are similar in configuration to prior studies. Prominent perivascular space vs. remote lacunar infarct in the left basal ganglia and internal capsule. Mild periventricular and subcortical white matter hypodensity consistent with chronic microvascular white matter ischemic spaces. Hyperostosis frontalis. The mastoid air cells and visualized portions of the paranasal sinuses are well aerated. CT/CT head/brain wo con IMPRESSION: No acute intracranial pathology.
--- NOTE | ~2021-11-12 | CT_ITS ---
EXAMINATION: CT THORACIC SPINE WITHOUT CONTRAST CT LUMBAR SPINE WITHOUT CONTRAST CLINICAL INFORMATION: Fall COMPARISON: None TECHNIQUE: Multidetector volumetric imaging of the thoracic and lumbar spine performed without IV contrast. Coronal and sagittal reformatted images are obtained and reviewed. This CT examination was performed using dose optimization techniques as appropriate, variously including the following: *Automated exposure control *Adjustment of mA and/or kV according to patient size (this includes techniques or standardized protocols for targeted exams where dose is matched to indication/reason for exam; i.e. extremities or head) *Use of iterative reconstruction technique DLP: 2703 mGy-cm in conjunction with cervical CT . FINDINGS: There is no acute fracture or subluxation. There is grade 1 anterolisthesis of L4 on L5 which appears degenerative. Vertebral body height and alignment otherwise maintained. Diffuse disc space narrowing throughout the thoracolumbar spine with prominent endplate osteophytes. Many of these are bridging. Vacuum disc phenomenon throughout the lumbar spine. Extensive facet arthropathy at the lumbar spine. Multiple partially ossified posterior discs throughout the thoracic spine resulting in areas of mild spinal canal narrowing. The visualized lungs are clear. Dense coronary artery calcifications. Dense aortic calcifications. Colonic diverticulosis without diverticulitis. CT/CT thoracic spine wo con IMPRESSION: No acute fracture or malalignment of the thoracolumbar spine. Severe degenerative changes throughout. Multilevel posterior ossified discs at the thoracic spine resulting in spinal canal narrowing.
[2021-11-12 20:07] VITALS: BP 119/53; PULSE 71; RESP 18; TEMP 37.1; O2SAT 95; BMI 37.0
--- NOTE | 2021-11-12 20:29 | PC.NURSE ---
NEUROS WNL IN TRIAGE.
[2021-11-12 20:35] LABS: MANUAL DIFF FLAG NO
[2021-11-12 20:36] LABS: Basophils Absolute Auto 0.1 X10*3/uL (0.0-0.2); Eosinophils Absolute Auto 0.2 X10*3/uL (0.0-0.4); Eosinophils Percent Auto 2.7 % (0-4); Hematocrit 32.3 % (37.0-47.0); Hemoglobin 10.5 g/dl (12.0-16.0); Imm Gran Abs Auto 0.03 X10*3/uL (0.00-0.03); Imm Gran Pct Auto 0.3 % (0.0-0.4); Lymphocytes Absolute Auto 1.7 X10*3/uL (1.2-4.9); Lymphocytes Percent Auto 19.6 % (20-40); Mean Corpuscular HGB Conc 32.5 g/dl (31.0-35.0); Mean Corpuscular Hemoglobin 28.5 pg (27.0-33.0); Mean Corpuscular Volume 87.8 fL (80.0-98.0); Monocytes Absolute Auto 0.9 X10*3/uL (0.1-1.2); Monocytes Percent Auto 10.2 % (2-11); Neutrophils Absolute Auto 5.7 x10*3/uL (2.0-8.3); Neutrophils Percent Auto 66.2 % (45-73); Platelet Count 376 X10*3/uL (160-400); Red Blood Count 3.68 X10*6/uL (4.20-5.50); Red Cell Distribution Width 15.6 % (11.0-16.0); White Blood Count 8.6 X10*3/uL (4.8-10.8)
[2021-11-12 20:44] LABS: Prothrombin Time 11.7 SEC (10.0-13.1)
[2021-11-12 20:46] LABS: Partial Thromboplastin Time 42.3 SEC (24.1-38.0)
[2021-11-12 20:54] VITALS: BP 108/62; PULSE 78; RESP 16; TEMP 36.6; O2SAT 96
[2021-11-12 20:54] LABS: Alanine Aminotransferase 15 U/L (0-31); Albumin Level 3.9 g/dL (3.5-5.0); Alkaline Phosphatase 69 U/L (39-117); Anion Gap 12 (12-20); Aspartate Amino Transferase 18 U/L (5-31); Bilirubin Total 0.3 mg/dL (0.0-1.0); Blood Urea Nitrogen 50 mg/dL (9-16); Calcium 8.7 mg/dL (8.4-10.2); Carbon Dioxide 26 mmol/L (22-29); Chloride 98 mmol/L (96-108); Creatinine Clr Calc Pharmacy 43.2; Estimated Glomerular Filt Rate 41; Glucose Random 178 mg/dL (60-115); Magnesium 1.8 mg/dL (1.6-2.6); Potassium 4.4 mmol/L (3.3-5.1); Sodium 132 mmol/L (135-145); Total Protein 6.2 g/dL (6.5-8.0)
[2021-11-12 20:58] LABS: Troponin-I High Sensitivity 8.6 ng/L (<3.5-17.0)
--- NOTE | 2021-11-12 21:11 | ED_ITS ---
Reports melena, Denies coffee ground emesis, Denies diarrhea and Denies vomiting Genitourinary: Genitourinary: Reports as per HPI, Denies hematuria, Denies urinary frequency and Denies dysuria Musculoskeletal: Musculoskeletal: Reports no additional musculoskeletal complaints, Reports back pain and Denies numbness Integumentary/Breasts: Skin/Breast: Reports as per HPI and Denies rash Neurologic: Reports as per HPI, Reports dizziness, Reports frequent falls, Reports headache(s), Denies focal weakness, Denies numbness and Reports disequilibrium Psychiatric: Psychiatric: Reports no additional psychiatric complaints and Reports as per HPI Endocrine: Endocrine: Reports no additional endocrine complaints and Reports as per HPI Hematologic/Lymphatic: Hematologic/Lymphatic: Reports no additional hematologic/lymphatic complaints, Reports as per HPI and Reports other (No peripheral edema) [facility] Past Medical History Medical History Thrombus Surgical History H/O colonoscopy History of Mohs micrographic surgery for skin cancer History of partial hysterectomy Hx of cardiac cath Hx of cervical spine surgery Family History Family History Father Rectal cancer Hypertension Arthritis of knee CVD (cardiovascular disease) Mother Hypertension CVD (cardiovascular disease) Myocardial infarction Diabetes Social History Social History Household Members: Spouse Housing: House Are you a primary director long term care to a significant other at home: No Do you presently have visiting nurse or other home services: No Alcohol intake: never Patient Tobacco Use Status: Former Tobacco user Quit Date: 35 y/a e-Cigarette/Vaping Use: Never Used Second Hand Smoke Exposure: No Use of substances other than those prescribed or required for medical reasons: No Advance Directives: Yes Advance Directives on File: Yes Advance Directives Date on File: 07/17/20 service: No Current occupational status: retired Current occupation: Lt handed Cognitive needs: Yes (scodor/walker) Hearing needs: No Vision needs: Yes (glasses) Physical Exam ED Vital Signs: Vital Signs - 24 hr 11/12/21 20:07 11/12/21 20:54 11/12/21 22:12 Temperature 98.7 F 97.9 F 97.9 F Pulse Rate 71 78 71 Respiratory Rate 18 16 16 Blood Pressure 119/53 L 108/62 102/33 L Pulse Oximetry 95 96 96 Oxygen Delivery Method Room Air Room Air Room Air BMI result Body Mass Index 37.0 Const Other: Moderately obese, not in distress, pleasant General: no acute distress Orientation/consciousness: patient oriented x3 HENMT Head: Yes normal to inspection General nose exam: Normal external nose present Mouth: moist mucous membranes Throat: Yes posterior oropharynx normal, Yes tonsils normal and Yes uvula midline Eyes Eyelids: Yes eyelids normal Conjunctivae: conjunctivae normal Pupils: Equal, round and reactive pupils present Neck Neck: Yes supple Resp Effort & Inspection: normal respiratory effort Auscultation: clear to auscultation bilaterally Cardio Rate: regular rate Rhythm: regular rhythm Heart sounds: S1 normal heart sound present, S2 normal heart sound present, no gallops, no murmurs and no rubs GI Inspection: No distended Palpation (GI): Soft to palpation and nontender Auscultation: normal bowel sounds Rectal Exam - Female: visual inspection normal, normal sphincter tone, No [place] al hemorrhoid(s) present, No fecal impaction, No heme negative stool ( brown, borderline trace heme-positive) and No hemorrhoids Skin General skin exam: other (Warm and dry) Neuro General: patient oriented x3 and CN's II-XI intact bilaterally Cranial nerves: Yes Equal, round and reactive pupils present Extrem General: Yes no pedal edema Psych Affect: normal affect Attitude: cooperative Medical Decision Making [facility] Narrative Medical decision making narrative: patient with recent falls and weakness, feels off balance. Patient has had prior CVA. Patient is on Xarelto and aspirin and did complain of a headache. CT of the brain showed no acute pathology. Patient also mentioned that she had jet black stool today. Rectal exam did not reveal melena but there was very trace heme positive brown stool. Patient's hemoglobin has acutely dropped however in the last week, significantly but not dramatically. The patient's BUN and creatinine ratio is also elevated consistent with an upper GI bleed. The the patient is not in distress and vital signs are normal, given the overall clinical picture I believe she warrants admission for GI evaluation, possible temporary cessation of Xarelto. Patient is not in atrial fibrillation currently. Lab Data Lab results reviewed: Yes I reviewed the patient's lab results. Result diagrams: 11/12/21 20:29 11/12/21 20:29 Labs: Lab Results 11/12/21 11/12/21 11/12/21 Range/Units 20:29 20:29 20:29 WBC 8.6 (4.8-10.8) X10*3/uL RBC 3.68 L (4.20-5.50) X10*6/uL Hgb 10.5 L (12.0-16.0) g/dl Hct 32.3 L (37.0-47.0) % MCV 87.8 (80.0-98.0) fL MCH 28.5 (27.0-33.0) pg MCHC 32.5 (31.0-35.0) g/dl RDW 15.6 (11.0-16.0) % Plt Count 376 (160-400) X10*3/uL MPV 9.0 L (9.4-12.3) fL Immature Gran % (Auto) 0.3 (0.0-0.4) % Neut % (Auto) 66.2 (45-73) % Lymph % (Auto) 19.6 L (20-40) % [place] % (Auto) 10.2 (2-11) % Eos % (Auto) 2.7 (0-4) % Baso % (Auto) 1.0 (0-2) % Lymph # (Auto) 1.7 (1.2-4.9) X10*3/uL [place] # (Auto) 0.9 (0.1-1.2) X10*3/uL Eos # (Auto) 0.2 (0.0-0.4) X10*3/uL Baso # (Auto) 0.1 (0.0-0.2) X10*3/uL Abs Immat Gran (auto) 0.03 (0.00-0.03) X10*3/uL Absolute Neuts (auto) 5.7 (2.0-8.3) x10*3/uL Absolute Nucleated RBC 0.000 (0.0-0.012) X10*3/uL Nucleated RBC % (auto) 0.0 (0.0-0.2) /100WBC PT 11.7 (10.0-13.1) SEC INR 1.0 (0.9-1.1) APTT 42.3 H (24.1-38.0) SEC Sodium 132 L (135-145) mmol/L Potassium 4.4 (3.3-5.1) mmol/L Chloride 98 (96-108) mmol/L Carbon Dioxide 26 (22-29) mmol/L Anion Gap 12 (12-20) BUN 50 H D (9-16) mg/dL Creatinine 1.27 (0.5-1.4) mg/dL Estim Creat Clear Calc 43.2 Estimated GFR 41 Random Glucose 178 H (60-115) mg/dL Calcium 8.7 D (8.4-10.2) mg/dL Magnesium 1.8 (1.6-2.6) mg/dL Total Bilirubin 0.3 (0.0-1.0) mg/dL AST 18 (5-31) U/L ALT 15 (0-31) U/L Alkaline Phosphatase 69 D (39-117) U/L Troponin I High Sens (<3.5-17.0) ng/L Total Protein 6.2 L (6.5-8.0) g/dL Albumin 3.9 (3.5-5.0) g/dL COVID-19 ([facility]) (Negative) COVID-19 Clin Com 11/12/21 11/12/21 Range/Units 20:29 23:05 WBC (4.8-10.8) X10*3/uL RBC (4.20-5.50) X10*6/uL Hgb (12.0-16.0) g/dl Hct (37.0-47.0) % MCV (80.0-98.0) fL MCH (27.0-33.0) pg MCHC (31.0-35.0) g/dl RDW (11.0-16.0) % Plt Count (160-400) X10*3/uL MPV (9.4-12.3) fL Immature Gran % (Auto) (0.0-0.4) % Neut % (Auto) (45-73) % Lymph % (Auto) (20-40) % [place] % (Auto) (2-11) % Eos % (Auto) (0-4) % Baso % (Auto) (0-2) % Lymph # (Auto) (1.2-4.9) X10*3/uL [place] # (Auto) (0.1-1.2) X10*3/uL Eos # (Auto) (0.0-0.4) X10*3/uL Baso # (Auto) (0.0-0.2) X10*3/uL Abs Immat Gran (auto) (0.00-0.03) X10*3/uL Absolute Neuts (auto) (2.0-8.3) x10*3/uL Absolute Nucleated RBC (0.0-0.012) X10*3/uL Nucleated RBC % (auto) (0.0-0.2) /100WBC PT (10.0-13.1) SEC INR (0.9-1.1) APTT (24.1-38.0) SEC Sodium (135-145) mmol/L Potassium (3.3-5.1) mmol/L Chloride (96-108) mmol/L Carbon Dioxide (22-29) mmol/L Anion Gap (12-20) BUN (9-16) mg/dL Creatinine (0.5-1.4) mg/dL Estim Creat Clear Calc Estimated GFR Random Glucose (60-115) mg/dL Calcium (8.4-10.2) mg/dL Magnesium (1.6-2.6) mg/dL Total Bilirubin (0.0-1.0) mg/dL AST (5-31) U/L ALT (0-31) U/L Alkaline Phosphatase (39-117) U/L Troponin I High Sens 8.6 D (<3.5-17.0) ng/L Total Protein (6.5-8.0) g/dL Albumin (3.5-5.0) g/dL COVID-19 ([facility]) Negative (Negative) COVID-19 Clin Com See Note Imaging Data CT scan - head: Radiologist's impression: FINDINGS: There is no evidence of acute intracranial hemorrhage or territorial infarction. No abnormal mass effect or midline shift is seen. [place] to white matter differentiation is well preserved. No extra-axial fluid collections are identified. The ventricles and sulci are similar in configuration to prior studies. Prominent perivascular space vs. remote lacunar infarct in the left basal ganglia and internal capsule. Mild periventricular and subcortical white matter hypodensity consistent with chronic microvascular white matter ischemic spaces. Hyperostosis frontalis. The mastoid air cells and visualized portions of the paranasal sinuses are well aerated. ? CT/CT head/brain wo con IMPRESSION: No acute intracranial pathology. ECG Data Attestation: I personally reviewed and interpreted this ECG as follows: Interpretation: sinus rhythm with first-degree AV block, rate of 71. Left axis deviation. LVH. Poor R-wave progression. No marilin ST elevation or depression. No ectopy. Discharge Plan Discharge Clinical Impression: Acute upper GI bleed, Anemia, Headache, Falls Patient Disposition: Admitted As Inpatient Prescriptions: No Action nystatin 100,000 unit/gram powder 1 appl topical BID 30 Days Qty: 120 2RF (DME) pen needle, diabetic [BD Meghan 2nd Gen Pen Needle] 32 gauge x 5/32 ne edle See Rx Instructions .MEDSUPPLY Qty: 50 4RF Rx Instructions: once a day Tresiba FlexTouch U-100 100 unit/mL (3 mL) insulin pen 6 unit subcut DAILY 90 Days Qty: 15 1RF Toviaz 8 mg tablet extended release 24 hr 8 mg PO DAILY 90 Days Qty: 90 3RF (DME) OneTouch Verio test strips Strip See Rx Instructions .Route Qty: 100 11RF Rx Instructions: Use 1 test strips 4 times a day fluticasone propionate 50 mcg/actuation spray,suspension 1 spray intranasal DAILY 90 Days Qty: 16 3RF Rx Instructions: administer into each nostril trazodone 100 mg tablet 100 mg PO BEDTIME PRN (Reason: sleep) 90 Days Qty: 90 1RF escitalopram oxalate [Lexapro] 10 mg tablet 10 mg PO DAILY 90 Days Qty: 90 1RF atenolol 50 mg tablet 50 mg PO BID 90 Days Qty: 180 3RF sennosides [senna] 8.6 mg tablet 17.2 mg PO BEDTIME 90 Days Qty: 180 3RF cholecalciferol (vitamin D3) 50 mcg (2,000 unit) tablet 2,000 unit PO DAILY 90 Days Qty: 90 3RF clindamycin HCl 300 mg capsule 300 mg PO Q6H 7 Days Qty: 28 1RF Rx Instructions: take OTC probiotics 25 billion cultures in between the doses of antibiotics losartan 100 mg tablet 100 mg PO DAILY 90 Days Qty: 90 3RF ferrous sulfate 325 mg (65 mg iron) tablet,delayed release (DR/EC) 325 mg PO DAILY 90 Days Qty: 90 1RF omeprazole 40 mg capsule,delayed release(DR/EC) 40 mg PO DAILY Qty: 90 1RF Jardiance 25 mg tablet 25 mg PO QAM 90 Days Qty: 90 3RF metformin 1,000 mg tablet 1,000 mg PO BID 90 Days Qty: 180 3RF rosuvastatin [Crestor] 40 mg tablet 40 mg PO DAILY 90 Days Qty: 90 3RF thiamine HCl (vitamin B1) 100 mg tablet 100 mg PO DAILY 90 Days Qty: 90 1RF docusate sodium [DOK] 100 mg capsule 100 mg PO BID PRN (Reason: constipation) 90 Days Qty: 180 2RF furosemide 40 mg tablet 40 mg PO BID 90 Days Qty: 180 1RF cyanocobalamin (vitamin B-12) 1,000 mcg tablet 1,000 mcg PO DAILY 90 Days Qty: 90 3RF Trulicity 3 mg/0.5 mL pen injector 3 mg subcut QWEEK 28 Days Qty: 2 6RF enoxaparin 100 mg/mL syringe 100 mg subcut Q12H Qty: 6 0RF baclofen 10 mg tablet 5 mg PO TID PRN (Reason: muscle pain) 90 Days Qty: 135 0RF amoxicillin 500 mg capsule 500 mg PO Q8H 7 Days Qty: 21 0RF fenofibrate 160 mg tablet 160 mg PO DAILY 90 Days Qty: 90 3RF amlodipine 10 mg tablet 10 mg PO DAILY 90 Days Qty: 90 1RF gabapentin 400 mg capsule 400 mg PO TID 90 Days Qty: 270 1RF oxycodone 5 mg tablet 5 mg PO Q6H PRN (Reason: pain) 30 Days Qty: 120 0RF hydroxychloroquine [Plaquenil] 200 mg tablet 200 mg PO BID [id number]-ixpt [Fioricet] 50-300-40 mg capsule 1 cap PO Q8H PRN (Reason: pain) Qty: 10 0RF omeprazole 40 mg capsule,delayed release(DR/EC) 40 mg PO DAILY Qty: 30 0RF loratadine [Allergy Relief (loratadine)] 10 mg tablet 10 mg PO DAILY PRN (Reason: allergy symptoms) 90 Days Qty: 90 3RF Xarelto 20 mg tablet 20 mg PO QPM 90 Days Qty: 90 1RF Hold Instructions: Resume on 04/11/21. restart 04/11 diclofenac sodium [Arthritis Pain (diclofenac)] 1 % gel 2 g topical QID PRN (Reason: pain) 14 Days Qty: 100 0RF Rx Instructions: apply to single elbow, wrist or hand; for hand includes palm/fingers/back of hand magnesium 200 mg tablet 200 mg PO DAILY Qty: 30 0RF riboflavin (vitamin B2) 400 mg tablet 400 mg PO DAILY Qty: 30 0RF aspirin [Enteric Coated Aspirin] 81 mg tablet,delayed release (DR/EC) 81 mg PO DAILY Qty: 90 4RF ketoconazole 2 % cream topical (DME) BinaxNOW COVID-19 Ag Self Test Kit See Rx Instructions .ROUTE DIRECTED Qty: 1 Rx Instructions: As directed estradiol 0.01 % (0.1 mg/gram) cream vaginal gabapentin 800 mg tablet 800 mg PO TID 30 Days Qty: 90 8RF Myrbetriq 25 mg tablet extended release 24 hr 25 mg PO DAILY 30 Days Qty: 30 1RF HPI - General Adult General Chief complaint: Head Injury Stated complaint: Fall/Weakness Time Seen by Provider: 11/12/21 21:09 Source: patient Limitations: no limitations History of Present Illness HPI narrative: This is a 71-year-old female with a history of paroxysmal atrial fibrillation, diabetes mellitus, hypertension, diabetic neuropathy, CVA, 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 The patient has been feeling off balance and weak recently. She has had 2 falls in the last few days, 1 out of her wheelchair. She did hit her head and does have a headache. She denies any neck pain. She denies any chest pain, has mild shortness of breath. She denies any abdominal pain. She has noted black stool today. Related Data Home Medications Medication Instructions Recorded Confirmed hydroxychloroquine 200 mg tablet 200 mg PO BID 08/02/20 10/03/21 (Plaquenil) COVID-19 antigen test (BinaxNOW #1 ea 10/15/21 COVID-19 Ag Self Test) estradiol g vaginal 10/15/21 ketoconazole 2 % topical cream appl topical 10/15/21 Previous Rx's Medication Instructions Recorded nystatin 100,000 unit/gram topical 1 appl topical BID 30 days #120 09/15/20 powder grams loratadine 10 mg tablet (Allergy 10 mg PO DAILY PRN allergy 11/07/20 Relief (loratadine)) symptoms 90 days #90 tabs rivaroxaban 20 mg tablet (Xarelto) 20 mg PO QPM 90 days #90 tabs 11/07/20 pen needle, diabetic 32 gauge x #50 ea 11/09/20 (BD Meghan 2nd Gen Pen Needle) insulin degludec 100 unit/mL (3 6 unit (0.06 mL) subcut DAILY 90 01/26/21 mL) subcutaneous pen (Tresiba days #15 mL FlexTouch U-100 insulin) fesoterodine 8 mg tablet,extended 8 mg PO DAILY 90 days #90 tabs 02/15/21 release 24 hr (Toviaz) mirabegron 25 mg tablet,extended 25 mg PO DAILY 30 days #30 tabs 04/16/21 release 24 hr (Myrbetriq) aspirin 81 mg tablet,delayed 81 mg PO DAILY #90 tabs 04/18/21 release (Enteric Coated Aspirin) blood sugar diagnostic ([facility] #100 ea 06/04/21 Verio test strips) fluticasone propionate 50 1 spray intranasal DAILY 90 days 06/04/21 mcg/actuation nasal #16 grams spray,suspension diclofenac sodium 1 % topical gel 2 g topical QID PRN pain 14 days 06/22/21 (Arthritis Pain (diclofenac)) #100 grams magnesium 200 mg tablet 200 mg PO DAILY #30 tabs 06/22/21 riboflavin (vitamin B2) 400 mg 400 mg PO DAILY #30 tabs 06/22/21 tablet atenolol 50 mg tablet 50 mg PO BID 90 days #180 tabs 06/29/21 cholecalciferol (vitamin D3) 50 2,000 unit PO DAILY 90 days #90 06/29/21 mcg (2,000 unit) tablet tabs escitalopram oxalate 10 mg tablet 10 mg PO DAILY 90 days #90 tabs 06/29/21 (Lexapro) sennosides 8.6 mg tablet (senna) 17.2 mg PO BEDTIME 90 days #180 06/29/21 tabs trazodone 100 mg tablet 100 mg PO BEDTIME PRN sleep 90 06/29/21 days #90 tabs clindamycin HCl 300 mg capsule 300 mg PO Q6H 7 days #28 caps 07/20/21 cyanocobalamin (vitamin B-12) 1,000 mcg PO DAILY 90 days #90 tabs 07/31/21 1,000 mcg tablet docusate sodium 100 mg capsule 100 mg PO BID PRN constipation 90 07/31/21 (DOK) days #180 caps dulaglutide 3 mg/0.5 mL 3 mg (0.5 mL) subcut QWEEK 28 days 07/31/21 subcutaneous pen injector #2 mL (Trulicity) empagliflozin 25 mg tablet 25 mg PO QAM 90 days #90 tabs 07/31/21 (Jardiance) ferrous sulfate 325 mg (65 mg 325 mg PO DAILY 90 days #90 tabs 07/31/21 iron) tablet,delayed release furosemide 40 mg tablet 40 mg PO BID 90 days #180 tabs 07/31/21 losartan 100 mg tablet 100 mg PO DAILY 90 days #90 tabs 07/31/21 metformin 1,000 mg tablet 1,000 mg PO BID 90 days #180 tabs 07/31/21 omeprazole 40 mg capsule,delayed 40 mg PO DAILY #90 caps 07/31/21 release rosuvastatin 40 mg tablet (Crestor) 40 mg PO DAILY 90 days #90 tabs 07/31/21 thiamine HCl (vitamin B1) 100 mg 100 mg PO DAILY 90 days #90 tabs 07/31/21 tablet enoxaparin 100 mg/mL subcutaneous 100 mg subcut Q12H #6 mL 08/20/21 syringe baclofen 10 mg tablet 5 mg PO TID PRN muscle pain 90 08/29/21 days #135 tabs amoxicillin 500 mg capsule 500 mg PO Q8H 7 days #21 caps 09/27/21 amlodipine 10 mg tablet 10 mg PO DAILY 90 days #90 tabs 09/28/21 fenofibrate 160 mg tablet 160 mg PO DAILY 90 days #90 tabs 09/28/21 gabapentin 400 mg capsule 400 mg PO TID 90 days #270 caps 09/28/21 gabapentin 800 mg tablet 800 mg PO TID 30 days #90 tabs 10/22/21 kaiokcknyj-xkyyvrbcttjem-uvtbhopx 1 cap PO Q8H PRN pain #10 caps 11/03/21 50 mg-300 mg-40 mg capsule (Fioricet) omeprazole 40 mg capsule,delayed 40 mg PO DAILY #30 caps 11/03/21 release oxycodone 5 mg tablet 5 mg PO Q6H PRN pain 30 days #120 11/08/21 tabs Allergies Allergy/AdvReac Type Severity Reaction Status Date / Time sulfamethoxazole Allergy Intermediate RASH Verified 10/22/21 09:39 trimethoprim Allergy Intermediate RASH Verified 10/22/21 09:39 cefdinir Allergy Mild hives Verified 10/22/21 09:39 morphine [Morphine] Allergy Mild ITCHING, Verified 10/22/21 09:39 hives duloxetine AdvReac Intermediate altered Verified 10/22/21 09:39 behavior betina AdvReac Mild RUNNY NOSE Verified 10/22/21 09:39 mustard AdvReac Mild RUNNY NOSE Verified 10/22/21 09:39 potato [POTATO] AdvReac Mild ITCHY NOSE Verified 10/22/21 09:39 soybean AdvReac Mild RUNNY NOSE Verified 10/22/21 09:39 Review of Systems Review of Systems: Yes all other systems are reviewed and are negative Constitutional: Constitutional: Reports as per HPI, Denies fever(s), Reports frequent falls and Reports headache(s) Eyes: Eyes: Reports as per HPI and Reports no additional eye complaints ENT: Reports system reviewed and no additional complaints, except as documented, Reports as per HPI, Reports dizziness, Reports headache(s), Denies nasal congestion, Denies nasal discharge, Reports disequilibrium and Denies sore throat Cardiovascular: Cardiovascular: Reports as per HPI, Denies chest pain and Denies dyspnea Respiratory: Respiratory: Reports as per HPI, Denies cough and Denies dyspnea Gastrointestinal: Gastrointestinal: Reports as per HPI, Denies abdominal pain,
[2021-11-12 22:12] VITALS: BP 102/33; PULSE 71; RESP 16; TEMP 36.6; O2SAT 96
[2021-11-12] MEDS: 0.9 % Sodium Chloride 500 ML IV (22:43)
[2021-11-12] MEDS: 0.9 % Sodium Chloride 1,000 ML 50 ML IVCONT (23:30)
--- NOTE | 2021-11-12 23:32 | PM.IMHP ---
History of Present Illness Date of Service: 11/12/21 Chief Complaint: dizziness 71-year-old female with a past medical history of hypertension, hyperlipidemia, diabetes, CVA, paroxysmal AFib on anticoagulation, diabetic neuropathy, lumbar spinal spondylosis/radiculopathy; presented to the hospital today with a chief complaint of fall. Patient reported over the past few days she has been feeling generally weak; patient mentioned that she was in her trailer when she was trying to get out she tripped and fell onto her back, hit her head; denies any loss of consciousness. Patient mentioned that she has been feeling dizzy C and lightheaded. Mentioned that she had similar fall a few days ago. Mentions she has been complaint with her home medications including losartan and Lasix. Denies any urinary frequency urgency or dysuria. Patient reports having black stool. Denies any abdominal pain. Review of all other systems is negative except mentioned above ER course: Per ER team patient's EKG was non Ms. ischemic; troponin was negative; noted to have slight drop in hemoglobin; stool guaiac was positive; CT head showed no acute findings; admitted to the hospital for further management [facility] Medical History Acute upper GI bleed Anemia Atherosclerotic cardiovascular disease Chronic heart failure with preserved ejection fraction (HFpEF) CVA (cerebral vascular accident) Diabetes mellitus Diabetes type 2, uncontrolled Diabetic neuropathy Diabetic polyneuropathy Dizziness Dyslipidemia Essential hypertension Falls Hand pain Head injury Headache Hospital discharge follow-up Iron deficiency anemia Ischemic stroke Left hand pain Left hip pain Left knee pain Left shoulder pain Lumbar degenerative disc disease Obesity due to excess calories Other and unspecified hyperlipidemia Paroxysmal atrial fibrillation PONV (postoperative nausea and vomiting) Proteinuria Pulmonary hypertension Pure hypercholesterolemia Thiamine deficiency Thrombus 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 Urge urinary incontinence Family History Father Rectal cancer Hypertension Arthritis of knee CVD (cardiovascular disease) Mother Hypertension CVD (cardiovascular disease) Myocardial infarction Diabetes Surgical History H/O colonoscopy History of Mohs micrographic surgery for skin cancer History of partial hysterectomy Hx of cardiac cath Hx of cervical spine surgery Social History Household Members: Spouse Housing: House Are you a primary morning caregiver to a significant other at home: No Do you presently have visiting nurse or other home services: No Alcohol intake: never Patient Tobacco Use Status: Former Tobacco user Quit Date: 1993 Tobacco use type: Cigarette e-Cigarette/Vaping Use: Never Used Second Hand Smoke Exposure: No Advance Directives Date on File: 07/17/20 service: No Current occupational status: retired Current occupation: Lt handed Cognitive needs: Yes (scodor/walker) Hearing needs: No Vision needs: Yes (glasses) Meds Allergies Allergy/AdvReac Type Severity Reaction Status Date / Time morphine [Morphine] Allergy Severe ITCHING, Verified 12/12/21 13:01 hives cefdinir Allergy Intermediate hives Verified 12/12/21 13:01 sulfamethoxazole Allergy Intermediate RASH Verified 12/12/21 13:01 trimethoprim Allergy Intermediate RASH Verified 12/12/21 13:01 duloxetine AdvReac Severe altered Verified 12/12/21 13:01 behavior betina AdvReac Mild RUNNY NOSE Verified 12/12/21 13:01 mustard AdvReac Mild RUNNY NOSE Verified 12/06/21 10:20 potato [POTATO] AdvReac Mild ITCHY NOSE Verified 12/06/21 10:20 soybean AdvReac Mild RUNNY NOSE Verified 12/12/21 13:01 Home Medications Medication Instructions Recorded Confirmed Last Taken Type hydroxychloroquine 200 mg tablet 200 mg PO BID 08/02/20 11/26/21 11/30/21 History (Plaquenil) dulaglutide 3 mg/0.5 mL 0.5 ml subcut QWEEK 11/13/21 11/26/21 Unknown History subcutaneous pen injector (Trulicity) empagliflozin 25 mg tablet 1 tab QAM 11/13/21 11/26/21 Unknown History (Jardiance) estradiol 0.01% (0.1 mg/gram) 1 appl vaginal 3XW 11/13/21 11/26/21 Unknown History vaginal cream ferrous sulfate 325 mg (65 mg 1 tab PO DAILY 11/13/21 11/26/21 Unknown History iron) tablet fesoterodine 8 mg tablet,extended 1 tab PO DAILY 11/13/21 11/26/21 Unknown History release 24 hr (Toviaz) insulin degludec 100 unit/mL (3 6 unit subcut DAILY 11/13/21 11/26/21 Unknown History mL) subcutaneous pen (Tresiba FlexTouch U-100 insulin) ketoconazole 2 % topical cream 1 appl topical BID 11/13/21 11/26/21 Unknown History pen needle, diabetic 32 gauge x 11/13/21 11/22/21 Unknown History (BD Meghan 2nd Gen Pen Needle) ropinirole 0.25 mg tablet 1 tab PO BEDTIME 11/13/21 11/26/21 Unknown History rosuvastatin 40 mg tablet (Crestor) 40 mg PO BEDTIME 11/26/21 11/26/21 Unknown History aspirin 81 mg tablet,delayed 1 tab PO DAILY 11/30/21 11/30/21 11/21/21 History release Physical Exam Vital Signs and Narrative: Vital Signs: Last Vital Signs Temp 97.9 F 11/12/21 22:12 Pulse 71 11/12/21 22:12 Resp 16 11/12/21 22:12 BP 102/33 L 11/12/21 22:12 Pulse Ox 96 11/12/21 22:12 O2 Del Method 11/12/21 22:12 BMI result Body Mass Index 37.0 Gen: Appears be in no acute distress HEENT: NCAT, Moist mucosa. Neck is supple Pulmonary: Vesicular breath sounds, fair air entry CVS: Normal S1-S2 Abdomen: BS+, Soft, Nontender Extremities: Warm well perfused; mild tenderness elicited on the low back. Neuro: Alert and awake. Moves all extremities equally. Grossly nonfocal Results Labs CBC and Chem 7: 11/14/21 05:23 11/14/21 05:23 Labs: Laboratory Results - last 24 hr 11/12/21 11/12/21 11/12/21 20:29 20:29 20:29 MCV 87.8 MCH 28.5 MCHC 32.5 RDW 15.6 Plt Count 376 MPV 9.0 L Immature Gran % (Auto) 0.3 Neut % (Auto) 66.2 Lymph % (Auto) 19.6 L Valencia % (Auto) 10.2 Eos % (Auto) 2.7 Baso % (Auto) 1.0 Lymph # (Auto) 1.7 Valencia # (Auto) 0.9 Eos # (Auto) 0.2 Baso # (Auto) 0.1 Abs Immat Gran (auto) 0.03 Absolute Neuts (auto) 5.7 Absolute Nucleated RBC 0.000 Nucleated RBC % (auto) 0.0 PT 11.7 INR 1.0 APTT 42.3 H Anion Gap 12 Estim Creat Clear Calc 43.2 Estimated GFR 41 Random Glucose 178 H Calcium 8.7 D Magnesium 1.8 Total Bilirubin 0.3 AST 18 ALT 15 Alkaline Phosphatase 69 D Troponin I High Sens Total Protein 6.2 L Albumin 3.9 11/12/21 20:29 MCV MCH MCHC RDW Plt Count MPV Immature Gran % (Auto) Neut % (Auto) Lymph % (Auto) Valencia % (Auto) Eos % (Auto) Baso % (Auto) Lymph # (Auto) Valencia # (Auto) Eos # (Auto) Baso # (Auto) Abs Immat Gran (auto) Absolute Neuts (auto) Absolute Nucleated RBC Nucleated RBC % (auto) PT INR APTT Anion Gap Estim Creat Clear Calc Estimated GFR Random Glucose Calcium Magnesium Total Bilirubin AST ALT Alkaline Phosphatase Troponin I High Sens 8.6 D Total Protein Albumin Imaging Radiologist's Impressions: Impressions Head CT 11/12/21 22:07 IMPRESSION: No acute intracranial pathology. Assessment and Plan (1) Dizziness: Status: Acute Plan 71-year-old female with a past medical history of hypertension, hyperlipidemia, diabetes, CVA, paroxysmal AFib on anticoagulation, diabetic neuropathy, lumbar spinal spondylosis/radiculopathy; presented to the hospital today with a chief complaint of fall. Noted to have following Dizziness/Fall: Fall precautions CT head showed no acute findings; will also obtain CT of the C-spine, T-spine, L-spine. PT/OT eventually Neurology follow-up Orthostatic vitals EKG nonischemic Telemetry Cycle cardiac enzymes Patient's blood pressure noted to be on the soft side. Hold home antihypertensives for now. Gentle IV fluids Guaiac positive stool: Patient hemoglobin slightly dropped from her baseline of around 11.5 to10.5. Hold home aspirin, Xarelto. IV PPI. GI consult. History of AFib: Xarelto on hold until cleared by Gastroenterology. History of hypertension/hyperlipidemia: Had a losartan. Continue rosuvastatin. History of diabetes: Insulin sliding scale. Hold home insulin regimen for now. Hold metformin. History of diabetic neuropathy: Patient on gabapentin t.i.d. Chronic low back pain/lumbar spine spondylosis: Continue home oxycodone p.r.n. DVT prophylaxis: SCD boots Code status: Full code Quality Stroke Does the patient have a stroke diagnosis?: No VTE Prior VTE?: No VTE Risk Level:: Medical - moderate - high VTE Device Contraindication: Treatment Not Indicated VTE Drug Contraindication: N/A - Med Ordered
[2021-11-12 23:43] LABS: COVID-19 Test Negative (Negative)
[2021-11-13] VITALS (9 sets, daily range): BP systolic 117–152; BP diastolic 42–70; PULSE 62–78; RESP 14–20; TEMP 36–36.9; O2SAT 93–98
[2021-11-13 00:30] LABS: Iron 35 mcg/dL (30-160); Percent Iron Saturation 9 % (15-50); Total Iron Binding Capacity 375 mcg/dL (228-428); Unsaturated Iron Binding 340 ug/dL
[2021-11-13 00:36] LABS: Appearance Urine CLEAR; Color Urine YELLOW; Glucose Urine UA 250 MG/DL (NEG); Leukocyte Esterase Urine NEG (NEG); Nitrite Urine NEG (NEG); Specific Gravity - Urine <= 1.005 (1.005-1.025); Urine Blood NEG (NEG); Urine Ketones NEG (NEG); Urine Protein NEG (NEG-TRACE)
[2021-11-13 00:50] LABS: Ferritin 69 ng/mL (10-250)
[2021-11-13 00:53] LABS: Troponin-I High Sensitivity 8.3 ng/L (<3.5-17.0)
[2021-11-13 05:48] LABS: MANUAL DIFF FLAG NO
[2021-11-13 05:50] LABS: Basophils Absolute Auto 0.1 X10*3/uL (0.0-0.2); Basophils Percent Auto 1.1 % (0-2); Eosinophils Absolute Auto 0.3 X10*3/uL (0.0-0.4); Eosinophils Percent Auto 3.5 % (0-4); Hematocrit 37.1 % (37.0-47.0); Hemoglobin 11.9 g/dl (12.0-16.0); Imm Gran Abs Auto 0.02 X10*3/uL (0.00-0.03); Imm Gran Pct Auto 0.2 % (0.0-0.4); Lymphocytes Absolute Auto 1.8 X10*3/uL (1.2-4.9); Lymphocytes Percent Auto 22.4 % (20-40); Mean Corpuscular HGB Conc 32.1 g/dl (31.0-35.0); Mean Corpuscular Hemoglobin 27.9 pg (27.0-33.0); Mean Corpuscular Volume 86.9 fL (80.0-98.0); Mean Platelet Volume 9.3 fL (9.4-12.3); Monocytes Absolute Auto 0.9 X10*3/uL (0.1-1.2); Monocytes Percent Auto 10.8 % (2-11); Neutrophils Absolute Auto 5.1 x10*3/uL (2.0-8.3); Platelet Count 418 X10*3/uL (160-400); Red Blood Count 4.27 X10*6/uL (4.20-5.50); Red Cell Distribution Width 15.7 % (11.0-16.0); White Blood Count 8.2 X10*3/uL (4.8-10.8)
[2021-11-13 06:22] LABS: Anion Gap 14 (12-20); Blood Urea Nitrogen 44 mg/dL (9-16); Calcium 9.4 mg/dL (8.4-10.2); Carbon Dioxide 26 mmol/L (22-29); Chloride 104 mmol/L (96-108); Creatinine Clr Calc Pharmacy 51.7; Estimated Glomerular Filt Rate 51; Glucose Random 119 mg/dL (60-115); Potassium 3.9 mmol/L (3.3-5.1); Sodium 140 mmol/L (135-145)
[2021-11-13] MEDS: Pantoprazole Sodium 40 MG/10 ML VIAL IVPUSH (06:30)
[2021-11-13 07:07] LABS: Folate 11.5 ng/mL (> or = 4.0); Vitamin B12 1049 pg/mL (200-900)
[2021-11-13 07:32] LABS: Glucose, Whole Blood 100 mg/dL (60-115)
--- NOTE | 2021-11-13 08:14 | PHA.MEDREC ---
Pharmacy Consult ? Medication Reconciliation Pharmacy has reviewed the medication reconciliation completed by Sheeba. There are no remarkable issues for provider's attention. Sabrina Diop, JeredD
--- NOTE | 2021-11-13 08:49 | PC.NURSE ---
35 min since contact made on [facility], additional call placed to [facility]adic[facility] to contact rn
--- NOTE | 2021-11-13 08:56 | MHC.CM.PN ---
Patient is still in the ED and anticipated be admitted to room 450. CM spoke with Patient over the phone at [phone] and addressed WADE over the phone with her (original has been placed in [id number] for Patient's review and the copy has been placed on the chart. Patient is here after a fall from her camper and dc plan is home vs home with new vna vs STR, pending PT eval. CM has initiated and will follow for dc planning. PCP is DR. Marla Evans and she has receives [employer] vax X3.
--- NOTE | 2021-11-13 08:59 | PC.NURSE ---
report given to chanell temple
[2021-11-13 10:02] LABS: Glucose, Whole Blood 130 mg/dL (60-115)
[2021-11-13 11:25] LABS: Glucose, Whole Blood 114 mg/dL (60-115)
[2021-11-13] MEDS: Fluticasone Propionate Nasal 16 GM SPRAY 1 SPRAY NOSTRIL-B (11:43)
[2021-11-13] MEDS: Gabapentin 400 MG CAPSULE 800 MG PO ×3 (11:43→21:32)
[2021-11-13] MEDS: Cyanocobalamin (Vitamin B-12) 1,000 MCG TABLET 1000 MCG PO (11:43)
[2021-11-13] MEDS: Baclofen 10 MG TABLET 5 MG PO (11:43)
[2021-11-13] MEDS: Atorvastatin Calcium 80 MG TABLET PO (11:43)
[2021-11-13] MEDS: rOPINIRole HCL 0.25 MG TABLET PO ×2 (11:43→21:33)
[2021-11-13] MEDS: Mirabegron 25 MG TAB.ER.24H PO (11:44)
[2021-11-13] MEDS: Cholecalciferol (Vitamin D3) 25 MCG TABLET PO (11:44)
[2021-11-13] MEDS: Escitalopram Oxalate 10 MG TABLET PO (11:44)
[2021-11-13] MEDS: Thiamine HCL 100 MG TABLET PO (11:44)
[2021-11-13] MEDS: Fenofibrate 160 MG TABLET PO (11:44)
[2021-11-13] MEDS: Hydroxychloroquine Sulfate 200 MG TABLET PO ×2 (11:44→21:33)
--- NOTE | 2021-11-13 12:40 | P.CNNE_ITS ---
History of Present Illness Data of Consult Service Date: 11/13/21 Primary Care Provider: Marla Bray MD HPI Reason for consult: Dizziness and falling 71-year-old female with a past medical history of hypertension, hyperlipidemia, diabetes, CVA, paroxysmal AFib on anticoagulation, diabetic neuropathy, lumbar spinal spondylosis/radiculopathy; presented to the hospital today with a fall after tripping on a toilet flush in her camper. The day before she had another fall when she tripped over a 3 farris on return. She denies having any dizziness. She's had some balance problems and uses a walker ever since she had a stroke for which she was admitted to [facility] a year ago. Her workup was negative. She made a good recovery. Patient reports having black stool.? Denies any abdominal pain. Review of Systems Review of Systems: Yes all other systems are reviewed and are negative Constitutional: Constitutional: Reports as per HPI, Denies fever(s), Reports frequent falls and Reports headache(s) Eyes: Eyes: Reports as per HPI and Reports no additional eye complaints ENT: Reports system reviewed and no additional complaints, except as documented, Reports as per HPI, Reports dizziness, Reports headache(s), Denies nasal congestion, Denies nasal discharge, Reports disequilibrium and Denies sore throat Cardiovascular: Cardiovascular: Reports as per HPI, Denies chest pain and Denies dyspnea Respiratory: Respiratory: Reports as per HPI, Denies cough and Denies dyspnea Gastrointestinal: Gastrointestinal: Reports as per HPI, Denies abdominal pain, Reports melena, Denies coffee ground emesis, Denies diarrhea and Denies vomiting Musculoskeletal: Musculoskeletal: Reports no additional musculoskeletal complaints, Reports back pain and Denies numbness Integumentary/Breasts: Skin/Breast: Reports as per HPI and Denies rash Neurologic: Reports as per HPI, Reports dizziness, Reports frequent falls, Reports headache(s), Denies focal weakness, Denies numbness and Reports disequilibrium Psychiatric: Psychiatric: Reports no additional psychiatric complaints and Reports as per HPI Endocrine: Endocrine: Reports no additional endocrine complaints and Reports a s per HPI Hematologic/Lymphatic: Hematologic/Lymphatic: Reports no additional hematologic/lymphatic complaints, Reports as per HPI and Reports other (No peripheral edema) FORMERLY [facility], [facility] Past Medical History Medical History Thrombus Family History Family History Father Rectal cancer Hypertension Arthritis of knee CVD (cardiovascular disease) Mother Hypertension CVD (cardiovascular disease) Myocardial infarction Diabetes Surgical History Surgical History H/O colonoscopy History of Mohs micrographic surgery for skin cancer History of partial hysterectomy Hx of cardiac cath Hx of cervical spine surgery Social History Social History Household Members: Spouse Housing: House Are you a primary critical care transport nurse to a significant other at home: No Do you presently have visiting nurse or other home services: No Alcohol intake: never Patient Tobacco Use Status: Former Tobacco user Quit Date: 35 y/a e-Cigarette/Vaping Use: Never Used Second Hand Smoke Exposure: No Use of substances other than those prescribed or required for medical reasons: No Advance Directives: Yes Advance Directives on File: Yes Advance Directives Date on File: 07/17/20 service: No Current occupational status: retired Current occupation: Lt handed Cognitive needs: Yes (scodor/walker) Hearing needs: No Vision needs: Yes (glasses) Meds Allergies Allergy/AdvReac Type Severity Reaction Status Date / Time sulfamethoxazole Allergy Intermediate RASH Verified 10/22/21 09:39 trimethoprim Allergy Intermediate RASH Verified 10/22/21 09:39 cefdinir Allergy Mild hives Verified 10/22/21 09:39 morphine [Morphine] Allergy Mild ITCHING, Verified 10/22/21 09:39 hives duloxetine AdvReac Intermediate altered Verified 10/22/21 09:39 behavior betina AdvReac Mild RUNNY NOSE Verified 10/22/21 09:39 mustard AdvReac Mild RUNNY NOSE Verified 10/22/21 09:39 potato [POTATO] AdvReac Mild ITCHY NOSE Verified 10/22/21 09:39 soybean AdvReac Mild RUNNY NOSE Verified 10/22/21 09:39 Active Medications: Current Medications Acetaminophen (Acetaminophen 325 Mg Tablet) 650 mg PO Q6H PRN PRN Reason: Pain, Mild (Pain Scale 1-3) Atorvastatin Calcium (Atorvastatin Calcium 80 Mg Tablet) 80 mg PO DAILY [facility] Last Admin: 11/13/21 11:43 Dose: 80 mg Baclofen (Baclofen 10 Mg Tablet) 5 mg PO TID PRN PRN Reason: muscle pain Last Admin: 11/13/21 11:43 Dose: 5 mg Cyanocobalamin (Cyanocobalamin (Vitamin B-12) 1,000 Mcg Tablet) 1,000 mcg PO DAILY [facility] Last Admin: 11/13/21 11:43 Dose: 1,000 mcg Dextrose (Dextrose 50 % 25 Gm/50 Ml Syringe) 25 gm IVPUSH Q15M PRN; Protocol PRN Reason: per Hypoglycemia Standing Ord. Docusate Sodium (Docusate Sodium 100 Mg Capsule) 100 mg PO BID PRN PRN Reason: constipation Escitalopram Oxalate (Escitalopram Oxalate 10 Mg Tablet) 10 mg PO DAILY [facility] Last Admin: 11/13/21 11:44 Dose: 10 mg Fenofibrate (Fenofibrate 160 Mg Tablet) 160 mg PO DAILY [facility] Last Admin: 11/13/21 11:44 Dose: 160 mg Fluticasone Propionate (Fluticasone Propionate Nasal 16 Gm [place]) 1 spray NOSTRIL-B DAILY [facility] Last Admin: 11/13/21 11:43 Dose: 1 spray Gabapentin (Gabapentin 400 Mg Capsule) 800 mg PO TID [facility] Last Admin: 11/13/21 11:43 Dose: 800 mg Glucose (Glucose Gel 15 Gm Gel..Gram.) 15 gm PO Q15M PRN; Protocol PRN Reason: per Hypoglycemia Standing Ord. Hydroxychloroquine Sulfate (Hydroxychloroquine Sulfate 200 Mg Tablet) 200 mg PO BID [facility] Last Admin: 11/13/21 11:44 Dose: 200 mg Sodium Chloride (Ns) 1,000 mls @ 50 mls/hr IVCONT .Q20H [facility] Last Admin: 11/12/21 23:30 Dose: 50 mls/hr Insulin Human Lispro (Insulin Lispro 100 Unit/Ml 3 Ml Vial) 0.1 - 10 unit SUBCUT QIDACHS [facility]; Protocol Last Admin: 11/13/21 11:32 Dose: Not Given Mirabegron (Mirabegron 25 Mg Tab.Er.24h) 25 mg PO DAILY [facility] Last Admin: 11/13/21 11:44 Dose: 25 mg Pantoprazole Sodium (Pantoprazole Sodium 40 Mg/10 Ml Vial) 40 mg IVPUSH DAILY@ 0630 [facility] Last Admin: 11/13/21 06:30 Dose: 40 mg Pharmacy Consult (Consult Rx Perform Med Rec) 1 each MISCELLANE ONCE PRN PRN Reason: Consult order Ropinirole HCl (Ropinirole Hcl 0.25 Mg Tablet) 0.25 mg PO BID [facility] Last Admin: 11/13/21 11:43 Dose: 0.25 mg Senna (Sennosides 8.6 Mg Tablet) 17.2 mg PO BEDTIME [facility] Sodium Chloride (0.9 % Sodium Chloride Flush 3 Ml Syringe) 3 ml IVFLUSH QSHIFT [facility] Last Admin: 11/13/21 09:02 Dose: Not Given Thiamine HCl (Thiamine Hcl 100 Mg Tablet) 100 mg PO DAILY [facility] Last Admin: 11/13/21 11:44 Dose: 100 mg Trazodone HCl (Trazodone Hcl 100 Mg Tablet) 100 mg PO BEDTIME PRN PRN Reason: sleep Vitamin D (Cholecalciferol (Vitamin D3) 25 Mcg Tablet) 25 mcg PO DAILY [facility] Last Admin: 11/13/21 11:44 Dose: 25 mcg Home Medications Medication Instructions Recorded Confirmed Last Taken Type hydroxychloroquine 200 mg tablet 200 mg PO BID 08/02/20 11/13/21 Unknown History (Plaquenil) dulaglutide 3 mg/0.5 mL 0.5 ml subcut QWEEK 11/13/21 11/13/21 Unknown History subcutaneous pen injector (Trulicity) empagliflozin 25 mg tablet 1 tab QAM 11/13/21 11/13/21 Unknown History (Jardiance) estradiol 1 appl vaginal DAILY 11/13/21 11/13/21 Unknown History ferrous sulfate 325 mg (65 mg 1 tab PO DAILY 11/13/21 11/13/21 Unknown History iron) tablet fesoterodine 8 mg tablet,extended 1 tab PO DAILY 11/13/21 11/13/21 Unknown History release 24 hr (Toviaz) insulin degludec 100 unit/mL (3 6 unit subcut DAILY 11/13/21 11/13/21 Unknown History mL) subcutaneous pen (Tresiba FlexTouch U-100 insulin) ketoconazole 2 % topical cream 1 appl topical BID 11/13/21 11/13/21 Unknown History pen needle, diabetic 32 gauge x 11/13/21 11/13/21 Unknown History (BD Meghan 2nd Gen Pen Needle) rivaroxaban 20 mg tablet (Xarelto) 1 tab PO QPM 11/13/21 11/13/21 Unknown Hi story ropinirole 0.25 mg tablet 1 tab PO BID 11/13/21 11/13/21 Unknown History Physical Exam Vital Signs: Vital Signs: Last Vital Signs Temp 97.5 F 11/13/21 11:07 Pulse 66 11/13/21 11:07 Resp 18 11/13/21 11:07 BP 133/62 11/13/21 11:07 Pulse Ox 95 11/13/21 11:07 O2 Del Method 11/13/21 11:07 BMI result Body Mass Index 37.0 Const: Other: Moderately obese, not in distress, pleasant General: no acute distress Orientation/consciousness: patient oriented x3 HEENT: Head: Yes normal to inspection General nose exam: Normal external nose present Mouth: moist mucous membranes Throat: Yes posterior oropharynx normal, Yes tonsils normal and Yes uvula midline Eyes: Eyelids: Yes eyelids normal Conjunctivae: conjunctivae normal Pupils: Equal, round and reactive pupils present Neck: Neck: Yes supple Resp: Effort & Inspection: normal respiratory effort Auscultation: clear to auscultation bilaterally Cardio: Rate: regular rate Rhythm: regular rhythm Heart sounds: S1 normal heart sound present, S2 normal heart sound present, no gallops, no murmurs and no rubs GI: Inspection: No distended Palpation (GI): Soft to palpation and nontender Auscultation: normal bowel sounds Rectal Exam - Female: visual inspection normal, normal sphincter tone, No External hemorrhoid(s) present, No fecal impaction, No heme negative stool ( brown, borderline trace heme- positive) and No hemorrhoids Skin: General skin exam: other (Warm and dry) Neuro: Other: nonfocal examination General: patient oriented x3 and CN's II-XI intact bilaterally Cranial nerves: Yes Equal, round and reactive pupils present Extrem: General: Yes no pedal edema Psych: Affect: normal affect Attitude: cooperative Results Labs CBC & Chem 7: 11/13/21 05:27 11/13/21 05:27 Labs: Short CBC 11/12/21 11/13/21 Range/Units 20:29 05:27 WBC 8.6 8.2 (4.8-10.8) X10*3/uL Hgb 10.5 L 11.9 L (12.0-16.0) g/dl Hct 32.3 L 37.1 (37.0-47.0) % Plt Count 376 418 H (160-400) X10*3/uL BMP 11/12/21 11/13/21 20:29 05:27 Sodium 132 L 140 Potassium 4.4 3.9 Chloride 98 104 Carbon Dioxide 26 26 BUN 50 H D 44 H Creatinine 1.27 1.06 Calcium 8.7 D 9.4 D Liver Function 11/12/21 Range/Units 20:29 Total Bilirubin 0.3 (0.0-1.0) mg/dL AST 18 (5-31) U/L ALT 15 (0-31) U/L Alkaline Phosphatase 69 D (39-117) U/L Albumin 3.9 (3.5-5.0) g/dL Urine 11/13/21 Range/Units 00:26 Urine Color YELLOW Urine Appearance CLEAR Urine pH 6.0 (5.0-8.0) Ur Specific [place] <= 1.005 (1.005-1.025) Urine Protein NEG (NEG-TRACE) MG/DL Urine Glucose (UA) 250 H (NEG) MG/DL Assessment and Plan (1) Falls: Status: Acute 2 accidental falls in 2 days unrelated to her balance. Denies any dizziness. Minor stroke a year ago. Vascular workup was negative. Recommendation PT evaluation for gait and balance. Plan hospital d#2 71yo F with DM2 with neuropathy, HTN, HLD, hx CVA, pAF on rivaroxaban presented after dizziness resulting in fall, also melena- FOBT+ stool # dizziness/fall - no acute injury on neuroimaging or spine imaging - Neuro consult pending - orthostatics pending - Tn-I negative, no events on telemetry, EKG without ischemic changes - holding home antihypertensives [amlodipine, losartan, atenolol, furosemide] due to soft BP, now improved # FOBT+ - GI consult, hold rivaroxaban, monitor H+H, continue PPI, NPO after midnight # pAF - holding atenolol + rivaroxaban as above, currently in sinus rhythm # HTN - holding antihypertensives as above # HLD - continue statin, fenofibrate # DM2 - correction-dose lispro # neuropathy - gabapentin # chronic low back pain - prn oxycodone # VTE ppx: SCDs, hold rivaroxaban # dispo: eventual home with PT/VNA Procedures Date of Service Date of Service: 11/13/21
--- NOTE | 2021-11-13 16:09 | HO.PM.IMPN ---
Subjective Subjective Date of Service: 11/13/21 Interval History: dizziness improved hungry, wants to eat Review of Systems Review of Systems: Yes all other systems are reviewed and are negative Physical Exam Vital Signs: Vital Signs: Last Vital Signs Temp 97.2 F 11/13/21 15:31 Pulse 66 11/13/21 15:31 Resp 20 11/13/21 15:31 BP 132/63 11/13/21 15:31 Pulse Ox 98 11/13/21 15:31 O2 Del Method 11/13/21 15:31 BMI result Body Mass Index 37.0 Objective Data Active Medications Acetaminophen (Acetaminophen 325 Mg Tablet) 650 mg PO Q6H PRN PRN Reason: Pain, Mild (Pain Scale 1-3) Atorvastatin Calcium (Atorvastatin Calcium 80 Mg Tablet) 80 mg PO DAILY [facility] Last Admin: 11/13/21 11:43 Dose: 80 mg Documented By: LEVAR Baclofen (Baclofen 10 Mg Tablet) 5 mg PO TID PRN PRN Reason: muscle pain Last Admin: 11/13/21 11:43 Dose: 5 mg Documented By: LEVAR Cyanocobalamin (Cyanocobalamin (Vitamin B-12) 1,000 Mcg Tablet) 1,000 mcg PO DAILY [facility] Last Admin: 11/13/21 11:43 Dose: 1,000 mcg Documented By: LEVAR Dextrose (Dextrose 50 % 25 Gm/50 Ml Syringe) 25 gm IVPUSH Q15M PRN; Protocol PRN Reason: per Hypoglycemia Standing Ord. Docusate Sodium (Docusate Sodium 100 Mg Capsule) 100 mg PO BID PRN PRN Reason: constipation Escitalopram Oxalate (Escitalopram Oxalate 10 Mg Tablet) 10 mg PO DAILY [facility] Last Admin: 11/13/21 11:44 Dose: 10 mg Documented By: LEVAR Fenofibrate (Fenofibrate 160 Mg Tablet) 160 mg PO DAILY [facility] Last Admin: 11/13/21 11:44 Dose: 160 mg Documented By: LEVAR Fluticasone Propionate (Fluticasone Propionate Nasal 16 Gm [place]) 1 spray NOSTRIL-B DAILY [facility] Last Admin: 11/13/21 11:43 Dose: 1 spray Documented By: LEVAR Gabapentin (Gabapentin 400 Mg Capsule) 800 mg PO TID [facility] Last Admin: 11/13/21 11:43 Dose: 800 mg Documented By: LEVAR Glucose (Glucose Gel 15 Gm Gel..Gram.) 15 gm PO Q15M PRN; Protocol PRN Reason: per Hypoglycemia Standing Ord. Hydroxychloroquine Sulfate (Hydroxychloroquine Sulfate 200 Mg Tablet) 200 mg PO BID [facility] Last Admin: 11/13/21 11:44 Dose: 200 mg Documented By: LEVAR Sodium Chloride (Ns) 1,000 mls @ 50 mls/hr IVCONT .Q20H [facility] Last Admin: 11/12/21 23:30 Dose: 50 mls/hr Documented By: DUVALUriel Insulin Human Lispro (Insulin Lispro 100 Unit/Ml 3 Ml Vial) 0.1 - 10 unit SUBCUT QIDACHS [facility]; Protocol Last Admin: 11/13/21 11:32 Dose: Not Given Documented By: LEVAR Non-Admin Reason: No Insulin Coverage Mirabegron (Mirabegron 25 Mg Tab.Er.24h) 25 mg PO DAILY [facility] Last Admin: 11/13/21 11:44 Dose: 25 mg Documented By: LEVAR Pantoprazole Sodium (Pantoprazole Sodium 40 Mg/10 Ml Vial) 40 mg IVPUSH DAILY@0630 [facility] Last Admin: 11/13/21 06:30 Dose: 40 mg Documented By: MARITA Pharmacy Consult (Consult Rx Perform Med Rec) 1 each MISCELLANE ONCE PRN PRN Reason: Consult order Ropinirole HCl (Ropinirole Hcl 0.25 Mg Tablet) 0.25 mg PO BID [facility] Last Admin: 11/13/21 11:43 Dose: 0.25 mg Documented By: LEVAR Senna (Sennosides 8.6 Mg Tablet) 17.2 mg PO BEDTIME [facility] Sodium Chloride (0.9 % Sodium Chloride Flush 3 Ml Syringe) 3 ml IVFLUSH QSHIFT [facility] Last Admin: 11/13/21 09:02 Dose: Not Given Documented By: MARITA Non-Admin Reason: Patient Asleep Thiamine HCl (Thiamine Hcl 100 Mg Tablet) 100 mg PO DAILY [facility] Last Admin: 11/13/21 11:44 Dose: 100 mg Documented By: LEVAR Trazodone HCl (Trazodone Hcl 100 Mg Tablet) 100 mg PO BEDTIME PRN PRN Reason: sleep Vitamin D (Cholecalciferol (Vitamin D3) 25 Mcg Tablet) 25 mcg PO DAILY [facility] Last Admin: 11/13/21 11:44 Dose: 25 mcg Documented By: LEVAR Labs CBC & Chem 7: 11/13/21 05:27 11/13/21 05:27 Labs: Laboratory Results - last 24 hr 11/12/21 11/12/21 11/12/21 20:29 20:29 20:29 MCV 87.8 MCH 28.5 MCHC 32.5 RDW 15.6 Plt Count 376 MPV 9.0 L Immature Gran % (Auto) 0.3 Neut % (Auto) 66.2 Lymph % (Auto) 19.6 L [place] % (Auto) 10.2 Eos % (Auto) 2.7 Baso % (Auto) 1.0 Lymph # (Auto) 1.7 [place] # (Auto) 0.9 Eos # (Auto) 0.2 Baso # (Auto) 0.1 Abs Immat Gran (auto) 0.03 Absolute Neuts (auto) 5.7 Absolute Nucleated RBC 0.000 Nucleated RBC % (auto) 0.0 PT 11.7 INR 1.0 APTT 42.3 H Anion Gap 12 Estim Creat Clear Calc 43.2 Estimated GFR 41 POC Glucose Random Glucose 178 H Calcium 8.7 D Magnesium 1.8 Iron TIBC % Saturation Unsat Iron Binding Ferritin Total Bilirubin 0.3 AST 18 ALT 15 Alkaline Phosphatase 69 D Troponin I High Sens Total Protein 6.2 L Albumin 3.9 Vitamin B12 Folate Urine Color Urine Appearance Urine pH Ur Specific [place] Urine Protein Urine Glucose (UA) Urine Ketones Urine Blood Urine Nitrite Ur Leukocyte Esterase COVID-19 ([facility]) COVID-19 Clin Com 11/12/21 11/12/21 11/12/21 20:29 20:29 20:29 MCV MCH MCHC RDW Plt Count MPV Immature Gran % (Auto) Neut % (Auto) Lymph % (Auto) [place] % (Auto) Eos % (Auto) Baso % (Auto) Lymph # (Auto) [place] # (Auto) Eos # (Auto) Baso # (Auto) Abs Immat Gran (auto) Absolute Neuts (auto) Absolute Nucleated RBC Nucleated RBC % (auto) PT INR APTT Anion Gap Estim Creat Clear Calc Estimated GFR POC Glucose Random Glucose Calcium Magnesium Iron 35 TIBC 375 % Saturation 9 L Unsat Iron Binding 340 Ferritin 69 Total Bilirubin AST ALT Alkaline Phosphatase Troponin I High Sens 8.6 D Total Protein Albumin Vitamin B12 1049 H Folate 11.5 Urine Color Urine Appearance Urine pH Ur Specific [place] Urine Protein Urine Glucose (UA) Urine Ketones Urine Blood Urine Nitrite Ur Leukocyte Esterase COVID-19 ([facility]) COVID-19 Clin Com 11/12/21 11/13/21 11/13/21 23:05 00:26 00:26 MCV MCH MCHC RDW Plt Count MPV Immature Gran % (Auto) Neut % (Auto) Lymph % (Auto) [place] % (Auto) Eos % (Auto) Baso % (Auto) Lymph # (Auto) [place] # (Auto) Eos # (Auto) Baso # (Auto) Abs Immat Gran (auto) Absolute Neuts (auto) Absolute Nucleated RBC Nucleated RBC % (auto) PT INR APTT Anion Gap Estim Creat Clear Calc Estimated GFR POC Glucose Random Glucose Calcium Magnesium Iron TIBC % Saturation Unsat Iron Binding Ferritin Total Bilirubin AST ALT Alkaline Phosphatase Troponin I High Sens 8.3 Total Protein Albumin Vitamin B12 Folate Urine Color YELLOW Urine Appearance CLEAR Urine pH 6.0 Ur Specific [place] <= 1.005 Urine Protein NEG Urine Glucose (UA) 250 H Urine Ketones NEG Urine Blood NEG Urine Nitrite NEG Ur Leukocyte Esterase NEG COVID-19 ([facility]) Negative COVID-19 Clin Com See Note 11/13/21 11/13/21 11/13/21 05:27 05:27 07:29 MCV 86.9 MCH 27.9 MCHC 32.1 RDW 15.7 Plt Count 418 H MPV 9.3 L Immature Gran % (Auto) 0.2 Neut % (Auto) 62.0 Lymph % (Auto) 22.4 [place] % (Auto) 10.8 Eos % (Auto) 3.5 Baso % (Auto) 1.1 Lymph # (Auto) 1.8 [place] # (Auto) 0.9 Eos # (Auto) 0.3 Baso # (Auto) 0.1 Abs Immat Gran (auto) 0.02 Absolute Neuts (auto) 5.1 Absolute Nucleated RBC 0.000 Nucleated RBC % (auto) 0.0 PT INR APTT Anion Gap 14 Estim Creat Clear Calc 51.7 Estimated GFR 51 POC Glucose 100 Random Glucose 119 H Calcium 9.4 D Magnesium Iron TIBC % Saturation Unsat Iron Binding Ferritin Total Bilirubin AST ALT Alkaline Phosphatase Troponin I High Sens Total Protein Albumin Vitamin B12 Folate Urine Color Urine Appearance Urine pH Ur Specific [place] Urine Protein Urine Glucose (UA) Urine Ketones Urine Blood Urine Nitrite Ur Leukocyte Esterase COVID-19 ([facility]) COVID-19 Clin Com 11/13/21 11/13/21 09:58 11:10 MCV MCH MCHC RDW Plt Count MPV Immature Gran % (Auto) Neut % (Auto) Lymph % (Auto) [place] % (Auto) Eos % (Auto) Baso % (Auto) Lymph # (Auto) [place] # (Auto) Eos # (Auto) Baso # (Auto) Abs Immat Gran (auto) Absolute Neuts (auto) Absolute Nucleated RBC Nucleated RBC % (auto) PT INR APTT Anion Gap Estim Creat Clear Calc Estimated GFR POC Glucose 130 H 114 Random Glucose Calcium Magnesium Iron TIBC % Saturation Unsat Iron Binding Ferritin Total Bilirubin AST ALT Alkaline Phosphatase Troponin I High Sens Total Protein Albumin Vitamin B12 Folate Urine Color Urine Appearance Urine pH Ur Specific [place] Urine Protein Urine Glucose (UA) Urine Ketones Urine Blood Urine Nitrite Ur Leukocyte Esterase COVID-19 ([facility]) COVID-19 Clin Com Assessment and Plan (1) Falls: Status: Acute Plan hospital d#2 71yo F with DM2 with neuropathy, HTN, HLD, hx CVA, pAF on rivaroxaban presented after dizziness resulting in fall, also melena- FOBT+ stool # dizziness/fall - no acute injury on neuroimaging or spine imaging - Neuro consult pending - orthostatics pending - Tn-I negative, no events on telemetry, EKG without ischemic changes - holding home antihypertensives [amlodipine, losartan, atenolol, furosemide] due to soft BP, now improved # FOBT+ - GI consult, hold rivaroxaban, monitor H+H, continue PPI, NPO after midnight # pAF - holding atenolol + rivaroxaban as above, currently in sinus rhythm # HTN - holding antihypertensives as above # HLD - continue statin, fenofibrate # DM2 - correction-dose lispro # neuropathy - gabapentin # chronic low back pain - prn oxycodone # VTE ppx: SCDs, hold rivaroxaban # dispo: eventual home with PT/VNA Quality Stroke Does the patient have a stroke diagnosis?: No VTE Prior VTE?: No VTE Risk Level:: Medical - moderate - high VTE Device Contraindication: Treatment Not Indicated VTE Drug Contraindication: N/A - Med Ordered
[2021-11-13] MEDS: 0.9 % Sodium Chloride Flush 3 ML SYRINGE IVFLUSH (16:36)
[2021-11-13 16:40] LABS: Glucose, Whole Blood 88 mg/dL (60-115)
--- NOTE | 2021-11-13 18:57 | MHC.SHP ---
Pre-Procedural Eval Section A Date of Service: 11/14/21 The patient is an INPATIENT: Yes The History & Physical has been completed within 30 days and I have reviewed it.: Yes Section B Chief Complaint: Dizziness Allergies: Allergies Allergy/AdvReac Type Severity Reaction Status Date / Time sulfamethoxazole Allergy Intermediate RASH Verified 10/22/21 09:39 trimethoprim Allergy Intermediate RASH Verified 10/22/21 09:39 cefdinir Allergy Mild hives Verified 10/22/21 09:39 morphine [Morphine] Allergy Mild ITCHING, Verified 10/22/21 09:39 hives duloxetine AdvReac Intermediate altered Verified 10/22/21 09:39 behavior betina AdvReac Mild RUNNY NOSE Verified 10/22/21 09:39 mustard AdvReac Mild RUNNY NOSE Verified 10/22/21 09:39 potato [POTATO] AdvReac Mild ITCHY NOSE Verified 10/22/21 09:39 soybean AdvReac Mild RUNNY NOSE Verified 10/22/21 09:39 Plan I have reviewed the history and physical and performed a pertinent physical examination on my patient. No changes have occurred unless specified.
--- NOTE | 2021-11-13 19:02 | PM.EVENT ---
Event Note Date of Service: 11/13/21 Event Note: GI Consult-Full note dictated-Hx via patient, , her RN, and EMR. Imp: 71 yo female on chronic Xarelto, ASA, and Iron presenting s/p a fall and found to have brown, Heme + stool. However, she reports intermittent black stools at home. She has had a slight drop in Hgb and elevated BUN:Creatinine. She had a colonoscopy in 2020 with removal of polyps and an EGD in 2018 with some gastric retention and a hiatal hernia. She describes some nonspecific dysphagia as well. She is also on chronic omeprazole 40mg QD at home. Overall, my suspicion for a GI bleed is low. The black stool is most likely from the Iron. Given recent GI procedures and chronic use of a high dose of a PPI, the likelihood of a significant UGI or colonic source of bleeding is low. Rec: However, she will undergo an EGD 11/[address] Raman to definitively exclude an UGI bleed before discharge as she apparently has to go back on her blood thinners. Full consent obtained for this, including risks of bleeding and perforation. She and her are comfortable with this plan. Thanks
[2021-11-13 20:00] LABS: Glucose, Whole Blood 124 mg/dL (60-115)
[2021-11-13] MEDS: 0.9 % Sodium Chloride 1,000 ML 50 ML IVCONT (21:32)
[2021-11-14] VITALS (12 sets, daily range): BP systolic 95–162; BP diastolic 37–83; PULSE 58–72; RESP 14–20; TEMP 36.3–36.7; O2SAT 95–98; BMI 37.0
--- NOTE | 2021-11-14 01:09 | CONS_ITS ---
DATE OF SERVICE: 11/13/2021 REASON FOR CONSULTATION: Reported melena, heme-positive stool, and anemia. HISTORY OF PRESENT ILLNESS: This has been obtained from the patient, her , her RN, and medical record. Patient is a 71-year-old female admitted to the hospital after suffering a fall at home. She is on multiple medications at home including Xarelto, low-dose aspirin, and iron. She has reported some black stool at home and was found to have some brown heme-positive stool in the ER. She does report that her stool is intermittently black at home, but also is intermittently brown. She denies any hematochezia. She does have some chronic swallowing issues, but denies any chronic heartburn, nausea, vomiting, nor early satiety. She is on chronic omeprazole 40 mg daily as well. She has had a previous upper endoscopy in 2018, describing some gastric retention and a hiatal hernia, but no evidence of any ulcer disease. She had a colonoscopy in the fall, with Dr. Raman with the removal of some small polyps. Here in the hospital, she has had no obvious bleeding nor any further black stools. Her admitting hemoglobin was 10.5 compared to 11.7 on November 03, however, the hemoglobin today is up to 11.9. Her BUN was 50 with creatinine of 1.3 at the time of admission and today the BUN is 44 with creatinine of 1.1. Her BUN was 23 on November 03. She does describe that she may have had an ulcer many years ago, but was not a bleeding ulcer. She does take her low-dose aspirin at home, but does not use any NSAIDs. She does not smoke nor use any significant amounts of alcohol. MEDICATIONS: Her medications here in the hospital include acetaminophen, atorvastatin, baclofen, vitamin D, Colace, Lexapro, fenofibrate, gabapentin, hydroxychloroquine, insulin, IV Protonix, Requip, Senokot, thiamine, and trazodone. PAST MEDICAL HISTORY: 1. Diabetes mellitus. 2. Coronary artery disease with previous NM. 3. Hypertension. 4. Atrial fibrillation. 5. Diverticulitis. 6. History of gastroparesis. 7. Colon polyps with tubular adenomas. 8. Most recent colonoscopy was in the Fall of 2020. 9. History of pneumonia. 10. Broken right foot. 11. Carpal tunnel surgery. 12. Neck surgery. 13. Hysterectomy. 14. Cholecystectomy. 15. Hernia surgery. 16. Partial hysterectomy. 17. Skin cancer on her nose. 18. Diabetic neuropathy. 19. Chronic back pain with spinal stenosis. SOCIAL HISTORY: She is . She does not smoke nor used any alcohol. FAMILY HISTORY: Father had colon cancer in the 70s. REVIEW OF SYSTEMS: SKIN: No rash. No pruritus. CARDIAC: No chest pain. PULMONARY: No cough. No hemoptysis. GI: As above. PHYSICAL EXAMINATION: GENERAL: On exam, the patient is a pleasant, alert, comfortable-appearing female. SKIN: Warm and dry. HEENT: Anicteric sclerae. NECK: Supple. CARDIAC: Normal S1 and S2. ABDOMEN: Soft, nondistended, nontender. EXTREMITIES: Without edema. LABORATORY DATA: As above. CBC today showed white count 8.2, hemoglobin 11.9, MCV 87, platelets 418,000. PT 11.7 with INR 1.0. Normal electrolytes. BUN 44 and creatinine 1.1. Normal LFTs. Iron 35 with iron saturation 9% and ferritin of 69. B12 and folate levels are normal. IMPRESSION: Given the patient's clinical history, I doubt she is having any significant GI bleeding based on her stable hemoglobin, the fact that she is on a fairly high dose of chronic omeprazole, and the fact that her stools only intermittently black while on iron replacement. I suspect the black stool is in relation to iron as opposed to GI bleeding. She is not having any particular new nor worrisome GI complaints. She has also had recent GI procedures in the past couple of years as well. Overall, my suspicion for GI bleed is low. Nonetheless, given the fact that she apparently has to go back on her Xarelto and low-dose aspirin, she will undergo upper endoscopy tomorrow to definitively exclude an upper GI bleed before discharge, so she can then safely go back on her blood thinners. The procedure will be done either by myself or Dr. Raman. Full consent has been obtained from her for this, including risks of bleeding and perforation. The procedure will be done with monitored anesthesia care. The patient and her are comfortable with the plan. MD FEDE Alejo/MIGEUL / [phone]
[2021-11-14] MEDS: traZODone HCL 100 MG TABLET PO (02:53)
[2021-11-14 05:45] LABS: MANUAL DIFF FLAG NO
[2021-11-14] MEDS: Pantoprazole Sodium 40 MG/10 ML VIAL IVPUSH (05:54)
[2021-11-14 05:57] LABS: Basophils Absolute Auto 0.1 X10*3/uL (0.0-0.2); Basophils Percent Auto 1.2 % (0-2); Eosinophils Absolute Auto 0.3 X10*3/uL (0.0-0.4); Eosinophils Percent Auto 2.9 % (0-4); Hematocrit 35.9 % (37.0-47.0); Hemoglobin 11.6 g/dl (12.0-16.0); Imm Gran Abs Auto 0.02 X10*3/uL (0.00-0.03); Imm Gran Pct Auto 0.2 % (0.0-0.4); Lymphocytes Absolute Auto 1.6 X10*3/uL (1.2-4.9); Mean Corpuscular HGB Conc 32.3 g/dl (31.0-35.0); Mean Corpuscular Hemoglobin 28.1 pg (27.0-33.0); Mean Corpuscular Volume 86.9 fL (80.0-98.0); Mean Platelet Volume 9.7 fL (9.4-12.3); Monocytes Absolute Auto 0.8 X10*3/uL (0.1-1.2); Monocytes Percent Auto 9.7 % (2-11); Neutrophils Absolute Auto 5.7 x10*3/uL (2.0-8.3); Platelet Count 416 X10*3/uL (160-400); Red Blood Count 4.13 X10*6/uL (4.20-5.50); Red Cell Distribution Width 15.8 % (11.0-16.0); White Blood Count 8.5 X10*3/uL (4.8-10.8)
[2021-11-14 06:14] LABS: Anion Gap 12 (12-20); Blood Urea Nitrogen 24 mg/dL (9-16); Calcium 9.4 mg/dL (8.4-10.2); Carbon Dioxide 26 mmol/L (22-29); Chloride 107 mmol/L (96-108); Creatinine Clr Calc Pharmacy 71.2; Estimated Glomerular Filt Rate > 60; Glucose Fasting 116 mg/dL (60-99); Potassium 3.9 mmol/L (3.3-5.1); Sodium 141 mmol/L (135-145)
[2021-11-14 07:21] LABS: Glucose, Whole Blood 106 mg/dL (60-115)
[2021-11-14] MEDS: Gabapentin 400 MG CAPSULE 800 MG PO ×2 (08:13→15:00)
[2021-11-14] MEDS: Thiamine HCL 100 MG TABLET PO (08:14)
[2021-11-14] MEDS: Fenofibrate 160 MG TABLET PO (08:14)
[2021-11-14] MEDS: Hydroxychloroquine Sulfate 200 MG TABLET PO (08:14)
[2021-11-14] MEDS: rOPINIRole HCL 0.25 MG TABLET PO (08:14)
[2021-11-14] MEDS: Cyanocobalamin (Vitamin B-12) 1,000 MCG TABLET 1000 MCG PO (08:14)
[2021-11-14] MEDS: Atorvastatin Calcium 80 MG TABLET PO (08:14)
[2021-11-14] MEDS: Mirabegron 25 MG TAB.ER.24H PO (08:14)
[2021-11-14] MEDS: Escitalopram Oxalate 10 MG TABLET PO (08:14)
[2021-11-14] MEDS: Cholecalciferol (Vitamin D3) 25 MCG TABLET PO (08:14)
[2021-11-14] MEDS: Acetaminophen 325 MG TABLET 650 MG PO (08:20)
[2021-11-14] MEDS: Baclofen 10 MG TABLET 5 MG PO (08:20)
[2021-11-14 10:07] LABS: Glucose, Whole Blood 116 mg/dL (60-115)
--- NOTE | 2021-11-14 10:26 | P.CONAN_ITS ---
[facility] Active Problems Active Problems: All Active Problems (Updated 11/13/21 @ 00:10 by Jhonatan Weller MD) Acute upper GI bleed (Acute) Anemia (Acute) Headache (Acute) Falls (Acute) Diabetic polyneuropathy (Acute) Adult general medical exam (Acute) Post-menopausal (Acute) Screening for breast cancer (Acute) Bronchitis (Acute) COVID-19 (Acute) Thiamine deficiency (Acute) Hand pain (Acute) Overactive bladder (Acute) Stress incontinence (Acute) CHF exacerbation (Acute) Hypertensive urgency (Acute) Thrombocytosis (Acute) Anemia (Acute) Spondylosis of cervical spine with radiculopathy (Acute) Bilateral lumbar radiculopathy (Acute) Degenerative disc disease (Acute) Spinal stenosis (Acute) Spondylosis of lumbosacral spine with radiculopathy (Acute) Avulsion fracture of lateral malleolus of right fibula (Acute) Osteoarthritis of right knee (Acute) Neck pain (Acute) Headache (Acute) CVA (cerebral vascular accident) (Acute) Head injury (Acute) Left shoulder pain (Acute) Left knee pain (Acute) Left hip pain (Acute) Left hand pain (Acute) Dizziness (Acute) Diabetic neuropathy (Acute) Diabetes type 2, uncontrolled (Acute) Type 2 diabetes mellitus with other diabetic kidney complication (Acute) Proteinuria (Acute) Essential hypertension (Acute) Type 2 diabetes mellitus with diabetic polyneuropathy (Acute) Dyslipidemia (Acute) Obesity due to excess calories (Acute) Other and unspecified hyperlipidemia (Acute) Chronic heart failure with preserved ejection fraction (HFpEF) (Acute) Pulmonary hypertension (Acute) Ischemic stroke (Acute) Paroxysmal atrial fibrillation (Acute) Atherosclerotic cardiovascular disease (Acute) Hospital discharge follow-up (Acute) Urge urinary incontinence (Acute) Iron deficiency anemia (Acute) Pure hypercholesterolemia (Acute) Diabetes mellitus (Acute) Lumbar degenerative disc disease (Acute) Past Medical History Medical History Thrombus Family History Family History Father Rectal cancer Hypertension Arthritis of knee CVD (cardiovascular disease) Mother Hypertension CVD (cardiovascular disease) Myocardial infarction Diabetes Family history of problems with anesthesia: No Surgical History Surgical History H/O colonoscopy History of Mohs micrographic surgery for skin cancer History of partial hysterectomy Hx of cardiac cath Hx of cervical spine surgery History of Problems with Anesthesia: Yes Social History Social History Household Members: Spouse Housing: House Are you a primary tire care manager to a significant other at home: No Do you presently have visiting nurse or other home services: No Alcohol intake: never Patient Tobacco Use Status: Former Tobacco user Quit Date: 35 y/a e-Cigarette/Vaping Use: Never Used Second Hand Smoke Exposure: No Use of substances other than those prescribed or required for medical reasons: No Are you DNR?: No Advance Directives: Yes Advance Directives on File: Yes Advance Directives Date on File: 07/17/20 service: No Current occupational status: retired Current occupation: Lt handed Cognitive needs: Yes (scodor/walker) Hearing needs: No Vision needs: Yes (glasses) Meds Allergies Allergy/AdvReac Type Severity Reaction Status Date / Time sulfamethoxazole Allergy Intermediate RASH Verified 10/22/21 09:39 trimethoprim Allergy Intermediate RASH Verified 10/22/21 09:39 cefdinir Allergy Mild hives Verified 10/22/21 09:39 morphine [Morphine] Allergy Mild ITCHING, Verified 10/22/21 09:39 hives duloxetine AdvReac Intermediate altered Verified 10/22/21 09:39 behavior betina AdvReac Mild RUNNY NOSE Verified 10/22/21 09:39 mustard AdvReac Mild RUNNY NOSE Verified 10/22/21 09:39 potato [POTATO] AdvReac Mild ITCHY NOSE Verified 10/22/21 09:39 soybean AdvReac Mild RUNNY NOSE Verified 10/22/21 09:39 Active Medications: Current Medications Acetaminophen (Acetaminophen 325 Mg Tablet) 650 mg PO Q6H PRN PRN Reason: Pain, Mild (Pain Scale 1-3) Last Admin: 11/14/21 08:20 Dose: 650 mg Atorvastatin Calcium (Atorvastatin Calcium 80 Mg Tablet) 80 mg PO DAILY [facility] Last Admin: 11/14/21 08:14 Dose: 80 mg Baclofen (Baclofen 10 Mg Tablet) 5 mg PO TID PRN PRN Reason: muscle pain Last Admin: 11/14/21 08:20 Dose: 5 mg Cyanocobalamin (Cyanocobalamin (Vitamin B-12) 1,000 Mcg Tablet) 1,000 mcg PO DAILY [facility] Last Admin: 11/14/21 08:14 Dose: 1,000 mcg Dextrose (Dextrose 50 % 25 Gm/50 Ml Syringe) 25 gm IVPUSH Q15M PRN; Protocol PRN Reason: per Hypoglycemia Standing Ord. Docusate Sodium (Docusate Sodium 100 Mg Capsule) 100 mg PO BID PRN PRN Reason: constipation Escitalopram Oxalate (Escitalopram Oxalate 10 Mg Tablet) 10 mg PO DAILY [facility] Last Admin: 11/14/21 08:14 Dose: 10 mg Fenofibrate (Fenofibrate 160 Mg Tablet) 160 mg PO DAILY [facility] Last Admin: 11/14/21 08:14 Dose: 160 mg Fluticasone Propionate (Fluticasone Propionate Nasal 16 Gm [place]) 1 spray NOSTRIL-B DAILY [facility] Last Admin: 11/13/21 11:43 Dose: 1 spray Gabapentin (Gabapentin 400 Mg Capsule) 800 mg PO TID [facility] Last Admin: 11/14/21 08:13 Dose: 800 mg Glucose (Glucose Gel 15 Gm Gel..Gram.) 15 gm PO Q15M PRN; Protocol PRN Reason: per Hypoglycemia Standing Ord. Hydroxychloroquine Sulfate (Hydroxychloroquine Sulfate 200 Mg Tablet) 200 mg PO BID [facility] Last Admin: 11/14/21 08:14 Dose: 200 mg Sodium Chloride (Ns) 1,000 mls @ 50 mls/hr IVCONT .Q20H [facility] Last Admin: 11/13/21 21:32 Dose: 50 mls/hr Insulin Human Lispro (Insulin Lispro 100 Unit/Ml 3 Ml Vial) 0.1 - 10 unit SUBCUT QIDACHS [facility]; Protocol Last Admin: 11/14/21 08:13 Dose: Not Given Mirabegron (Mirabegron 25 Mg Tab.Er.24h) 25 mg PO DAILY [facility] Last Admin: 11/14/21 08:14 Dose: 25 mg Pantoprazole Sodium (Pantoprazole Sodium 40 Mg/10 Ml Vial) 40 mg IVPUSH DAILY@0630 [facility] Last Admin: 11/14/21 05:54 Dose: 40 mg Pharmacy Consult (Consult Rx Perform Med Rec) 1 each MISCELLANE ONCE PRN PRN Reason: Consult order Ropinirole HCl (Ropinirole Hcl 0.25 Mg Tablet) 0.25 mg PO BID [facility] Last Admin: 11/14/21 08:14 Dose: 0.25 mg Senna (Sennosides 8.6 Mg Tablet) 17.2 mg PO BEDTIME [facility] Last Admin: 11/13/21 21:33 Dose: Not Given Sodium Chloride (0.9 % Sodium Chloride Flush 3 Ml Syringe) 3 ml IVFLUSH QSHIFT [facility] Last Admin: 11/13/21 21:36 Dose: Not Given Thiamine HCl (Thiamine Hcl 100 Mg Tablet) 100 mg PO DAILY [facility] Last Admin: 11/14/21 08:14 Dose: 100 mg Trazodone HCl (Trazodone Hcl 100 Mg Tablet) 100 mg PO BEDTIME PRN PRN Reason: sleep Last Admin: 11/14/21 02:53 Dose: 100 mg Vitamin D (Cholecalciferol (Vitamin D3) 25 Mcg Tablet) 25 mcg PO DAILY [facility] Last Admin: 11/14/21 08:14 Dose: 25 mcg Home Medications Medication Instructions Recorded Confirmed Last Taken Type hydroxychloroquine 200 mg tablet 200 mg PO BID 08/02/20 11/13/21 Unknown History (Plaquenil) dulaglutide 3 mg/0.5 mL 0.5 ml subcut QWEEK 11/13/21 11/13/21 Unknown History subcutaneous pen injector (Trulicity) empagliflozin 25 mg tablet 1 tab QAM 11/13/21 11/13/21 Unknown History (Jardiance) estradiol 1 appl vaginal DAILY 11/13/21 11/13/21 Unknown History ferrous sulfate 325 mg (65 mg 1 tab PO DAILY 11/13/21 11/13/21 Unknown History iron) tablet fesoterodine 8 mg tablet,extended 1 tab PO DAILY 11/13/21 11/13/21 Unknown History release 24 hr (Toviaz) insulin degludec 100 unit/mL (3 6 unit subcut DAILY 11/13/21 11/13/21 Unknown History mL) subcutaneous pen (Tresiba FlexTouch U-100 insulin) ketoconazole 2 % topical cream 1 appl topical BID 11/13/21 11/13/21 Unknown History pen needle, diabetic 32 gauge x 11/13/21 11/13/21 Unknown History (BD Meghan 2nd Gen Pen Needle) rivaroxaban 20 mg tablet (Xarelto) 1 tab PO QPM 11/13/21 11/13/21 Unknown History ropinirole 0.25 mg tablet 1 tab PO BID 11/13/21 11/13/21 Unknown History Exam Exam Date and Time: November 14, 2021 1026 Height,Weight and Vital Signs: Height 5 ft 3 in Weight 94.801 kg Last Vital Signs Temp 97.6 F 11/14/21 07:04 Pulse 72 11/14/21 08:55 Resp 20 11/14/21 07:04 BP 148/60 H 11/14/21 08:55 Pulse Ox 96 11/14/21 07:04 O2 Del Method 11/14/21 07:04 Pertinent Lab Results Pertinent Lab Results: Laboratory Tests 11/12/21 11/12/21 11/12/21 20:29 20:29 20:29 WBC 8.6 RBC 3.68 L Hgb 10.5 L Hct 32.3 L MCV 87.8 MCH 28.5 MCHC 32.5 RDW 15.6 Plt Count 376 MPV 9.0 L Immature Gran % (Auto) 0.3 Neut % (Auto) 66.2 Lymph % (Auto) 19.6 L [place] % (Auto) 10.2 Eos % (Auto) 2.7 Baso % (Auto) 1.0 Lymph # (Auto) 1.7 [place] # (Auto) 0.9 Eos # (Auto) 0.2 Baso # (Auto) 0.1 Abs Immat Gran (auto) 0.03 Absolute Neuts (auto) 5.7 Absolute Nucleated RBC 0.000 Nucleated RBC % (auto) 0.0 PT 11.7 INR 1.0 APTT 42.3 H Sodium 132 L Potassium 4.4 Chloride 98 Carbon Dioxide 26 Anion Gap 12 BUN 50 H D Creatinine 1.27 Estim Creat Clear Calc 43.2 Estimated GFR 41 POC Glucose Random Glucose 178 H Fasting Glucose Calcium 8.7 D Magnesium 1.8 Iron TIBC % Saturation Unsat Iron Binding Ferritin Total Bilirubin 0.3 AST 18 ALT 15 Alkaline Phosphatase 69 D Troponin I High Sens Total Protein 6.2 L Albumin 3.9 Vitamin B12 Folate Urine Color Urine Appearance Urine pH Ur Specific [place] Urine Protein Urine Glucose (UA) Urine Ketones Urine Blood Urine Nitrite Ur Leukocyte Esterase COVID-19 ([facility]) COVID-19 Clin Com 11/12/21 11/12/21 11/12/21 20:29 20:29 20:29 WBC RBC Hgb Hct MCV MCH MCHC RDW Plt Count MPV Immature Gran % (Auto) Neut % (Auto) Lymph % (Auto) [place] % (Auto) Eos % (Auto) Baso % (Auto) Lymph # (Auto) [place] # (Auto) Eos # (Auto) Baso # (Auto) Abs Immat Gran (auto) Absolute Neuts (auto) Absolute Nucleated RBC Nucleated RBC % (auto) PT INR APTT Sodium Potassium Chloride Carbon Dioxide Anion Gap BUN Creatinine Estim Creat Clear Calc Estimated GFR POC Glucose Random Glucose Fasting Glucose Calcium Magnesium Iron 35 TIBC 375 % Saturation 9 L Unsat Iron Binding 340 Ferritin 69 Total Bilirubin AST ALT Alkaline Phosphatase Troponin I High Sens 8.6 D Total Protein Albumin Vitamin B12 1049 H Folate 11.5 Urine Color Urine Appearance Urine pH Ur Specific [place] Urine Protein Urine Glucose (UA) Urine Ketones Urine Blood Urine Nitrite Ur Leukocyte Esterase COVID-19 ([facility]) COVID-19 [place] 11/12/21 11/13/21 11/13/21 23:05 00:26 00:26 WBC RBC Hgb Hct MCV MCH MCHC RDW Plt Count MPV Immature Gran % (Auto) Neut % (Auto) Lymph % (Auto) [place] % (Auto) Eos % (Auto) Baso % (Auto) Lymph # (Auto) [place] # (Auto) Eos # (Auto) Baso # (Auto) Abs Immat Gran (auto) Absolute Neuts (auto) Absolute Nucleated RBC Nucleated RBC % (auto) PT INR APTT Sodium Potassium Chloride Carbon Dioxide Anion Gap BUN Creatinine Estim Creat Clear Calc Estimated GFR POC Glucose Random Glucose Fasting Glucose Calcium Magnesium Iron TIBC % Saturation Unsat Iron Binding Ferritin Total Bilirubin AST ALT Alkaline Phosphatase Troponin I High Sens 8.3 Total Protein Albumin Vitamin B12 Folate Urine Color YELLOW Urine Appearance CLEAR Urine pH 6.0 Ur Specific [place] <= 1.005 Urine Protein NEG Urine Glucose (UA) 250 H Urine Ketones NEG Urine Blood NEG Urine Nitrite NEG Ur Leukocyte Esterase NEG COVID-19 ([facility]) Negative COVID-19 [place] Com See Note 11/13/21 11/13/21 11/13/21 05:27 05:27 07:29 WBC 8.2 RBC 4.27 Hgb 11.9 L Hct 37.1 MCV 86.9 MCH 27.9 MCHC 32.1 RDW 15.7 Plt Count 418 H MPV 9.3 L Immature Gran % (Auto) 0.2 Neut % (Auto) 62.0 Lymph % (Auto) 22.4 [place] % (Auto) 10.8 Eos % (Auto) 3.5 Baso % (Auto) 1.1 Lymph # (Auto) 1.8 [place] # (Auto) 0.9 Eos # (Auto) 0.3 Baso # (Auto) 0.1 Abs Immat Gran (auto) 0.02 Absolute Neuts (auto) 5.1 Absolute Nucleated RBC 0.000 Nucleated RBC % (auto) 0.0 PT INR APTT Sodium 140 Potassium 3.9 Chloride 104 Carbon Dioxide 26 Anion Gap 14 BUN 44 H Creatinine 1.06 Estim Creat Clear Calc 51.7 Estimated GFR 51 POC Glucose 100 Random Glucose 119 H Fasting Glucose Calcium 9.4 D Magnesium Iron TIBC % Saturation Unsat Iron Binding Ferritin Total Bilirubin AST ALT Alkaline Phosphatase Troponin I High Sens Total Protein Albumin Vitamin B12 Folate Urine Color Urine Appearance Urine pH Ur Specific [place] Urine Protein Urine Glucose (UA) Urine Ketones Urine Blood Urine Nitrite Ur Leukocyte Esterase COVID-19 ([facility]) COVID-19 [place] 11/13/21 11/13/21 11/13/21 09:58 11:10 16:15 WBC RBC Hgb Hct MCV MCH MCHC RDW Plt Count MPV Immature Gran % (Auto) Neut % (Auto) Lymph % (Auto) [place] % (Auto) Eos % (Auto) Baso % (Auto) Lymph # (Auto) [place] # (Auto) Eos # (Auto) Baso # (Auto) Abs Immat Gran (auto) Absolute Neuts (auto) Absolute Nucleated RBC Nucleated RBC % (auto) PT INR APTT Sodium Potassium Chloride Carbon Dioxide Anion Gap BUN Creatinine Estim Creat Clear Calc Estimated GFR POC Glucose 130 H 114 88 Random Glucose Fasting Glucose Calcium Magnesium Iron TIBC % Saturation Unsat Iron Binding Ferritin Total Bilirubin AST ALT Alkaline Phosphatase Troponin I High Sens Total Protein Albumin Vitamin B12 Folate Urine Color Urine Appearance Urine pH Ur Specific [place] Urine Protein Urine Glucose (UA) Urine Ketones Urine Blood Urine Nitrite Ur Leukocyte Esterase COVID-19 ([facility]) COVID-Life[facility] 11/13/21 11/14/21 11/14/21 19:55 05:23 05:23 WBC 8.5 RBC 4.13 L Hgb 11.6 L Hct 35.9 L MCV 86.9 MCH 28.1 MCHC 32.3 RDW 15.8 Plt Count 416 H MPV 9.7 Immature Gran % (Auto) 0.2 Neut % (Auto) 67.0 Lymph % (Auto) 19.0 L [place] % (Auto) 9.7 Eos % (Auto) 2.9 Baso % (Auto) 1.2 Lymph # (Auto) 1.6 [place] # (Auto) 0.8 Eos # (Auto) 0.3 Baso # (Auto) 0.1 Abs Immat Gran (auto) 0.02 Absolute Neuts (auto) 5.7 Absolute Nucleated RBC 0.000 Nucleated RBC % (auto) 0.0 PT INR APTT Sodium 141 Potassium 3.9 Chloride 107 Carbon Dioxide 26 Anion Gap 12 BUN 24 H Creatinine 0.77 Estim Creat Clear Calc 71.2 Estimated GFR > 60 POC Glucose 124 H Random Glucose Fasting Glucose 116 H Calcium 9.4 Magnesium Iron TIBC % Saturation Unsat Iron Binding Ferritin Total Bilirubin AST ALT Alkaline Phosphatase Troponin I High Sens Total Protein Albumin Vitamin B12 Folate Urine Color Urine Appearance Urine pH Ur Specific [place] Urine Protein Urine Glucose (UA) Urine Ketones Urine Blood Urine Nitrite Ur Leukocyte Esterase COVID-19 ([facility]) COVID-19 [place] Com 11/14/21 11/14/21 07:07 10:04 WBC RBC Hgb Hct MCV MCH MCHC RDW Plt Count MPV Immature Gran % (Auto) Neut % (Auto) Lymph % (Auto) [place] % (Auto) Eos % (Auto) Baso % (Auto) Lymph # (Auto) [place] # (Auto) Eos # (Auto) Baso # (Auto) Abs Immat Gran (auto) Absolute Neuts (auto) Absolute Nucleated RBC Nucleated RBC % (auto) PT INR APTT Sodium Potassium Chloride Carbon Dioxide Anion Gap BUN Creatinine Estim Creat Clear Calc Estimated GFR POC Glucose 106 116 H Random Glucose Fasting Glucose Calcium Magnesium Iron TIBC % Saturation Unsat Iron Binding Ferritin Total Bilirubin AST ALT Alkaline Phosphatase Troponin I High Sens Total Protein Albumin Vitamin B12 Folate Urine Color Urine Appearance Urine pH Ur Specific [place] Urine Protein Urine Glucose (UA) Urine Ketones Urine Blood Urine Nitrite Ur Leukocyte Esterase COVID-19 ([facility]) COVID-19 Clin Com Airway Mallampati Class: III TM Dist: >3cm Neck ROM: Full Assessment and Plan Assessment Anesthesia Assessment: Anesthesia Plan Discussed and Chart Reviewed Final Anesthetic Review Family History of Problems with Anesthesia: No History of Problems with Anesthesia: Yes NPO: Yes ASA Class: III Final Preanesthetic Review: No Changes in Pt Med Stat, Meds/Allgs Chart Reviewed, Consent Obtained/Reviewed and Anes Risks/Benef Reviewed Patient Risk: Intermediate Procedure Risk: Low Anesthetic Plan Anesthetic Plan: MAC: Disposition: Standard PACU
[2021-11-14] MEDS: Lactated Ringers 1,000 ML 100 ML IVCONT (10:33)
--- NOTE | 2021-11-14 11:02 | P.BOP_ITS ---
Brief Operative Note Date of Service: 11/14/21 Pre-op diagnosis: Melena, anemia Post-op diagnosis: other (Proximal gastritis, Small hiatal hernia) Procedure: EGD Surgeon: Otto Navarro Anesthesia: MAC Was an Sweatband Perforator used for this Procedure?: No Estimated blood loss (mL): 0 Pathology: none sent Condition: stable Disposition: PACU
--- NOTE | 2021-11-14 11:03 | PM.EVENT ---
Event Note Date of Service: 11/14/21 Event Note: GI-EGD-Full note dictated Findings: 1. Proximal gastritis 2. Small hiatal hernia No bleeding, no ulcer. Rec: Advance diet. She may resume her Xarelto and aspirin as per the medical team. Continue Omeprazole 40mg QD. Thanks
--- NOTE | 2021-11-14 11:31 | P.F2F_ITS ---
Service Date Service Date: 11/14/21 Encounter Date of encounter: 11/14/21 Reasons for Services Signs and symptoms assessed: balance, deconditioning Reason for physical therapy: home safety and mobility, therapeutic exercises, gait/transfer training, assess need for DME, ADL training and energy conservation MD Overseeing Care: Marla Bray Homebound: Leaving the home is medically contraindicated at this time without the asist of a device and/or another person due th the listed conditions above and below. Reason homebound: unsteady gait / fall risk, poor balance / fall risk and weakness related to hospital stay Certification: Based on the above findings, I certify that this patient is confined to the home and needs intermittent [facility] care, physical therapy and/or speech therapy, or continues to need occupational therapy. The patient is under my care, and I have initiated the establishment of the plan of care. The patient will be followed by a physician who will periodically review the plan of care.
--- NOTE | 2021-11-14 11:36 | P.DS_ITS ---
DS: Providers Provider Date of Service: 11/14/21 Date of admission: 11/12/21 23:29 Date of discharge: 11/14/21 Primary care physician: Marla Bray MD Consults: 11/12/21 23:31 Consult to Gastroenterology Routine Consulting Provider: Otto Navarro Reason for consultation: Guaiac positive stool 11/13/21 02:54 Consult to Neurology Routine Consulting Provider: [facility] Reason for consultation: dizzy/rec falls DS: Diagnosis Discharge Diagnosis (1) Falls: Status: Acute (2) Acute upper GI bleed: Status: Acute DS: Summary Hospital Course Hospital Course: from admission H+P by Scott Moya, 11/12/21: 71-year-old female with a past medical history of hypertension, hyperlipidemia, diabetes, CVA, paroxysmal AFib on anticoagulation, diabetic neuropathy, lumbar spinal spondylosis/radiculopathy; presented to the hospital today with a chief complaint of fall.? Patient reported over the past few days she has been feeling generally weak; patient mentioned that she was in her trailer when she was trying to get out she tripped and fell onto her back, hit her head; denies any loss of consciousness.? Patient mentioned that she has been feeling dizzy C and lightheaded. Mentioned that she had similar fall a few days ago. Mentions she has been complaint with her home medications including losartan and Lasix. ?Denies any urinary frequency urgency or dysuria.? Patient reports having black stool.? Denies any abdominal pain. Review of all other systems is negative except mentioned above ER course: Per ER team patient's EKG was non Ms. ischemic; troponin was negative; noted to have slight drop in hemoglobin; stool guaiac was positive; CT head showed no acute findings; admitted to the hospital for further management This 71yo F with DM2 with neuropathy, HTN, HLD, hx CVA, pAF on rivaroxaban presented after dizziness resulting in fall, also melena and found to have FOBT+ stool. She was admitted on observation. No acute finding on neuroimaging or spine imaging, or telemetry/EKG monitoring. Antihypertensives were held due to soft blood pressure. GI was consulted and she underwent EGD on 11/14/21, which showed proximal gastritis and small hiatal hernia. She was discharged home with VNA services and should continue to hold antihypertensives [amlodipine, losartan, atenolol, furosemide] until she is seen by her primary care doctor in 1 week. Time Spent with Patient Time attestation: Total time spent providing and/or coordinating discharge services: Discharge coordination time: Less than 30 minutes Quality: Safe Use of Opioids Does Pt have an Active Cancer Diagnosis on the Problem List?: No Quality: Stroke Does the patient have a stroke diagnosis?: No Physical Exam Vital Signs: Vital Signs: Temp Pulse Resp BP Pulse Ox O2 Del Method 98.0 F 64 20 140/62 H 97 11/14/21 12:00 11/14/21 12:00 11/14/21 12:00 11/14/21 12:00 11/14/21 12:00 11/14/21 12:00 Gen: in no acute distress HEENT: sclera anicteric, moist mucus membranes Neck: supple Lungs: clear to auscultation bilaterally Heart: regular rate and rhythm, no murmurs Abd: soft, non-tender, non-distended, obese Ext: no edema Skin: warm/well-perfused Neuro: alert and oriented x3, no focal findings Psych: appropriate affect DS: Data Data Completed and Pending Completed studies during hospitalization [Text1]: Laboratory Results WBC 8.5 X10*3/uL (4.8-10.8) 11/14/21 05:23 RBC 4.13 X10*6/uL (4.20-5.50) L 11/14/21 05:23 Hgb 11.6 g/dl (12.0-16.0) L 11/14/21 05:23 Hct 35.9 % (37.0-47.0) L 11/14/21 05:23 MCV 86.9 fL (80.0-98.0) 11/14/21 05:23 MCH 28.1 pg (27.0-33.0) 11/14/21 05:23 MCHC 32.3 g/dl (31.0-35.0) 11/14/21 05:23 RDW 15.8 % (11.0-16.0) 11/14/21 05:23 Plt Count 416 X10*3/uL (160-400) H 11/14/21 05:23 MPV 9.7 fL (9.4-12.3) 11/14/21 05:23 Immature Gran % (Auto) 0.2 % (0.0-0.4) 11/14/21 05:23 Neut % (Auto) 67.0 % (45-73) 11/14/21 05:23 Lymph % (Auto) 19.0 % (20-40) L 11/14/21 05:23 [place] % (Auto) 9.7 % (2-11) 11/14/21 05:23 Eos % (Auto) 2.9 % (0-4) 11/14/21 05:23 Baso % (Auto) 1.2 % (0-2) 11/14/21 05:23 Lymph # (Auto) 1.6 X10*3/uL (1.2-4.9) 11/14/21 05:23 [place] # (Auto) 0.8 X10*3/uL (0.1-1.2) 11/14/21 05:23 Eos # (Auto) 0.3 X10*3/uL (0.0-0.4) 11/14/21 05:23 Baso # (Auto) 0.1 X10*3/uL (0.0-0.2) 11/14/21 05:23 Abs Immat Gran (auto) 0.02 X10*3/uL (0.00-0.03) 11/14/21 05:23 Absolute Neuts (auto) 5.7 x10*3/uL (2.0-8.3) 11/14/21 05:23 Absolute Nucleated RBC 0.000 X10*3/uL (0.0-0.012) 11/14/21 05:23 Nucleated RBC % (auto) 0.0 /100WBC (0.0-0.2) 11/14/21 05:23 PT 11.7 SEC (10.0-13.1) 11/12/21 20:29 INR 1.0 (0.9-1.1) 11/12/21 20:29 APTT 42.3 SEC (24.1-38.0) H 11/12/21 20:29 Sodium 141 mmol/L (135-145) 11/14/21 05:23 Potassium 3.9 mmol/L (3.3-5.1) 11/14/21 05:23 Chloride 107 mmol/L (96-108) 11/14/21 05:23 Carbon Dioxide 26 mmol/L (22-29) 11/14/21 05:23 Anion Gap 12 (12-20) 11/14/21 05:23 BUN 24 mg/dL (9-16) H 11/14/21 05:23 Creatinine 0.77 mg/dL (0.5-1.4) 11/14/21 05:23 Estim Creat Clear Calc 71.2 11/14/21 05:23 Estimated GFR > 60 11/14/21 05:23 POC Glucose 116 mg/dL (60-115) H 11/14/21 10:04 Random Glucose 119 mg/dL (60-115) H 11/13/21 05:27 Fasting Glucose 116 mg/dL (60-99) H 11/14/21 05:23 Calcium 9.4 mg/dL (8.4-10.2) 11/14/21 05:23 Magnesium 1.8 mg/dL (1.6-2.6) 11/12/21 20:29 Iron 35 mcg/dL (30-160) 11/12/21 20:29 TIBC 375 mcg/dL (228-428) 11/12/21 20:29 % Saturation 9 % (15-50) L 11/12/21 20:29 Unsat Iron Binding 340 ug/dL 11/12/21 20:29 Ferritin 69 ng/mL (10-250) 11/12/21 20:29 Total Bilirubin 0.3 mg/dL (0.0-1.0) 11/12/21 20:29 AST 18 U/L (5-31) 11/12/21 20:29 ALT 15 U/L (0-31) 11/12/21 20:29 Alkaline Phosphatase 69 U/L (39-117) D 11/12/21 20:29 Troponin I High Sens 8.3 ng/L (<3.5-17.0) 11/13/21 00:26 Total Protein 6.2 g/dL (6.5-8.0) L 11/12/21 20:29 Albumin 3.9 g/dL (3.5-5.0) 11/12/21 20:29 Vitamin B12 1049 pg/mL (200-900) H 11/12/21 20:29 Folate 11.5 ng/mL (> or = 4.0) 11/12/21 20:29 Urine Color YELLOW 11/13/21 00:26 Urine Appearance CLEAR 11/13/21 00:26 Urine pH 6.0 (5.0-8.0) 11/13/21 00:26 Ur Specific [place] <= 1.005 (1.005-1.025) 11/13/21 00:26 Urine Protein NEG MG/DL (NEG-TRACE) 11/13/21 00:26 Urine Glucose (UA) 250 MG/DL (NEG) H 11/13/21 00:26 Urine Ketones NEG MG/DL (NEG) 11/13/21 00:26 Urine Blood NEG (NEG) 11/13/21 00:26 Urine Nitrite NEG (NEG) 11/13/21 00:26 Ur Leukocyte Esterase NEG (NEG) 11/13/21 00:26 COVID-19 ([facility]) Negative (Negative) 11/12/21 23:05 COVID-19 Clin Com See Note 11/12/21 23:[address] 11/12/21 22:07 IMPRESSION: No acute intracranial pathology. Cervical Spine CT 11/13/21 03:50 IMPRESSION: No evidence for acute injury to the cervical spine. Moderate degenerative changes throughout. Lumbar Spine CT 11/13/21 03:50 IMPRESSION: No acute fracture or malalignment of the thoracolumbar spine. Severe degenerative changes throughout. Multilevel posterior ossified discs at the thoracic spine resulting in spinal canal narrowing. Thoracic Spine CT 11/13/21 03:50 IMPRESSION: No acute fracture or malalignment of the thoracolumbar spine. Severe degenerative changes throughout. Multilevel posterior ossified discs at the thoracic spine resulting in spinal canal narrowing. Labs on day of discharge: Laboratory Results - last 24 hr 11/13/21 11/13/21 11/14/21 16:15 19:55 05:23 WBC 8.5 RBC 4.13 L Hgb 11.6 L Hct 35.9 L MCV 86.9 MCH 28.1 MCHC 32.3 RDW 15.8 Plt Count 416 H MPV 9.7 Immature Gran % (Auto) 0.2 Neut % (Auto) 67.0 Lymph % (Auto) 19.0 L [place] % (Auto) 9.7 Eos % (Auto) 2.9 Baso % (Auto) 1.2 Lymph # (Auto) 1.6 [place] # (Auto) 0.8 Eos # (Auto) 0.3 Baso # (Auto) 0.1 Abs Immat Gran (auto) 0.02 Absolute Neuts (auto) 5.7 Absolute Nucleated RBC 0.000 Nucleated RBC % (auto) 0.0 Sodium Potassium Chloride Carbon Dioxide Anion Gap BUN Creatinine Estim Creat Clear Calc Estimated GFR POC Glucose 88 124 H Fasting Glucose Calcium 11/14/21 11/14/21 11/14/21 05:23 07:07 10:04 WBC RBC Hgb Hct MCV MCH MCHC RDW Plt Count MPV Immature Gran % (Auto) Neut % (Auto) Lymph % (Auto) [place] % (Auto) Eos % (Auto) Baso % (Auto) Lymph # (Auto) [place] # (Auto) Eos # (Auto) Baso # (Auto) Abs Immat Gran (auto) Absolute Neuts (auto) Absolute Nucleated RBC Nucleated RBC % (auto) Sodium 141 Potassium 3.9 Chloride 107 Carbon Dioxide 26 Anion Gap 12 BUN 24 H Creatinine 0.77 Estim Creat Clear Calc 71.2 Estimated GFR > 60 POC Glucose 106 116 H Fasting Glucose 116 H Calcium 9.4 Discharge Plan Discharge Patient Disposition: Home Health Service Discharge Diagnosis: dizziness/fall, melena, gastritis Referrals: Marla Henderson MD [Primary Care Provider] - 1 Week Otto Navarro [Physician] - 2 Weeks Discharge Medications: Continued fluticasone propionate 50 mcg/actuation spray,suspension 1 spray intranasal DAILY 90 Days Qty: 16 3RF Rx Instructions: administer into each nostril trazodone 100 mg tablet 100 mg PO BEDTIME PRN (Reason: sleep) 90 Days Qty: 90 1RF escitalopram oxalate [Lexapro] 10 mg tablet 10 mg PO DAILY 90 Days Qty: 90 1RF sennosides [senna] 8.6 mg tablet 17.2 mg PO BEDTIME 90 Days Qty: 180 3RF cholecalciferol (vitamin D3) 50 mcg (2,000 unit) tablet 2,000 unit PO DAILY 90 Days Qty: 90 3RF metformin 1,000 mg tablet 1,000 mg PO BID 90 Days Qty: 180 3RF rosuvastatin [Crestor] 40 mg tablet 40 mg PO DAILY 90 Days Qty: 90 3RF thiamine HCl (vitamin B1) 100 mg tablet 100 mg PO DAILY 90 Days Qty: 90 1RF docusate sodium [DOK] 100 mg capsule 100 mg PO BID PRN (Reason: constipation) 90 Days Qty: 180 2RF cyanocobalamin (vitamin B-12) 1,000 mcg tablet 1,000 mcg PO DAILY 90 Days Qty: 90 3RF baclofen 10 mg tablet 5 mg PO TID PRN (Reason: muscle pain) 90 Days Qty: 135 0RF fenofibrate 160 mg tablet 160 mg PO DAILY 90 Days Qty: 90 3RF oxycodone 5 mg tablet 5 mg PO Q6H PRN (Reason: pain) 30 Days Qty: 120 0RF hydroxychloroquine [Plaquenil] 200 mg tablet 200 mg PO BID ropinirole 0.25 mg tablet 1 tab PO BID estradiol 0.01 % (0.1 mg/gram) cream 1 appl vaginal DAILY ketoconazole 2 % cream 1 appl topical BID Toviaz 8 mg tablet extended release 24 hr 1 tab PO DAILY (DME) pen needle, diabetic [BD Meghan 2nd Gen Pen Needle] 32 gauge x 5/32 needle MISCELLANEOUS DAILY Xarelto 20 mg tablet 1 tab PO QPM Tresiba FlexTouch U-100 100 unit/mL (3 mL) insulin pen 6 unit subcut DAILY Jardiance 25 mg tablet 1 tab QAM Trulicity 3 mg/0.5 mL pen injector 0.5 ml subcut QWEEK ferrous sulfate 325 mg (65 mg iron) tablet 1 tab PO DAILY omeprazole 40 mg capsule,delayed release(DR/EC) 40 mg PO DAILY Qty: 30 0RF magnesium 200 mg tablet 200 mg PO DAILY Qty: 30 0RF riboflavin (vitamin B2) 400 mg tablet 400 mg PO DAILY Qty: 30 0RF aspirin [Enteric Coated Aspirin] 81 mg tablet,delayed release (DR/EC) 81 mg PO DAILY Qty: 90 4RF gabapentin 800 mg tablet 800 mg PO TID 30 Days Qty: 90 8RF Myrbetriq 25 mg tablet extended release 24 hr 25 mg PO DAILY 30 Days Qty: 30 1RF Discontinued atenolol 50 mg tablet 50 mg PO BID 90 Days Qty: 180 3RF losartan 100 mg tablet 100 mg PO DAILY 90 Days Qty: 90 3RF furosemide 40 mg tablet 40 mg PO BID 90 Days Qty: 180 1RF amlodipine 10 mg tablet 10 mg PO DAILY 90 Days Qty: 90 1RF Discharge Orders: Discharge Order (Routine); Ordered 11/14/21 Ordered By: Tea Bravo Diet: Advance to usual diet Activity on Discharge: As tolerated Stand Alone Forms: Patient Portal Discharge page Care Plan Goals: improved balance resolution of GI bleeding Health Concerns: dizziness/fall, melena Plan of Treatment: stop blood pressure medicines for now: amlodipine, furosemide, losartan, and atenolol home PT resume rivaroxaban follow up with primary care in 1 week Assessment: See Discharge Summary
[2021-11-14 12:12] LABS: Glucose, Whole Blood 138 mg/dL (60-115)
[2021-11-14] MEDS: Omeprazole 40 MG CAPSULE.DR PO (15:00)
--- NOTE | 2021-11-14 15:07 | MHC.CM.PN ---
Patient has been medically cleared for dc to home today with services. A referral was made to [facility], who has been made aware of today's dc. Last IMM addressed yesterday.
--- NOTE | 2021-11-14 21:00 | OP_ITS ---
SURGEON: Otto Navarro MD INDICATIONS: The patient presents for evaluation of reported melena, heme-positive stool, and anemia. Full consent has been obtained from her for this, including risks of bleeding and perforation. PREOPERATIVE DIAGNOSIS: POSTOPERATIVE DIAGNOSIS: PROCEDURE PERFORMED: Esophagogastroduodenoscopy. ESTIMATED BLOOD LOSS: COMPLICATIONS: ANESTHESIA: Monitored anesthesia care. ASSISTANTS: SPECIMENS: PREOPERATIVE DIAGNOSES: Anemia, reported melena, heme-positive stool. POSTOPERATIVE DIAGNOSES: Anemia, reported melena, heme-positive stool, proximal gastritis, small hiatal hernia. DESCRIPTION OF PROCEDURE: The patient was placed in the left lateral decubitus position. The Olympus video gastroscope was passed in the posterior oropharynx and upper esophagus under direct vision. The scope was passed slowly to the distal esophagus. The gastroesophageal junction appeared normal at 36 cm. There was no sign of any esophagitis nor Palmer esophagus. The scope entered into the stomach. There was a small hiatal hernia. The scope was advanced to pylorus and the duodenum was cannulated to the descending portion. The duodenum including the bulb appeared normal without mass or ulceration. The scope was withdrawn back into the stomach. The gastric antrum and body appeared normal with good peristalsis. Scope was retroflexed visualizing the proximal stomach carefully. In the forward viewing and retroflexed positions, the proximal stomach was notable for some gastritis, but there was no evidence of any mass or ulceration. The scope was straightened. Biopsies were not obtained as she has to go back on her Xarelto and low-dose aspirin. The scope was withdrawn back into the esophagus. The esophageal mucosa appeared normal. The scope was withdrawn from the patient. She tolerated the procedure well and was returned to recovery area in stable condition. IMPRESSION: 1. Proximal gastritis. 2. Small hiatal hernia. PLAN: The patient will have her diet advanced. At this point, there is no evidence of bleeding and I think she can go back on her Xarelto and low-dose aspirin, as well as remain on her omeprazole 40 mg daily. Given her colonoscopy less than 1 year ago, I do not think that needs to be repeated at this time. MD FEDE Alejo/MIGUEL / [id number] [email or web address]
== END 2021-11-14 19:03 | disposition home health service (06) ==
LOC: HO.ED 11-13 00:09 → HO.EDOVER 11-13 00:15 → HO.IMC 11-13 07:38
PROVIDERS: Internal Medicine; Admitting Provider Hospitalist; Emergency Provider Emergency Medicine; PCP Internal Medicine; Visit Provider Family Medicine
PROC: 0DJ08ZZ Inspection of Upper Intestinal Tract, Via Natural or Artificial Opening Endoscopic (ICD-10-PCS; CPT 43235; principal; 2021-11-14 14:20)
DX: K92.2 Gastrointestinal hemorrhage, unspecified (principal); K44.9 Diaphragmatic hernia without obstruction or gangrene; R42 Dizziness and giddiness; I48.0 Paroxysmal atrial fibrillation; E11.9 Type 2 diabetes mellitus without complications; K92.1 Melena; I25.10 Atherosclerotic heart disease of native coronary artery without angina pectoris; D50.0 Iron deficiency anemia secondary to blood loss (chronic); I10 Essential (primary) hypertension; R26.81 Unsteadiness on feet; E78.5 Hyperlipidemia, unspecified; M54.50 Low back pain, unspecified; G62.9 Polyneuropathy, unspecified; Z20.822 Contact with and (suspected) exposure to COVID-19; Z86.73 Personal history of transient ischemic attack (TIA), and cerebral infarction without residual deficits; Z79.899 Other long term (current) drug therapy; Z79.01 Long term (current) use of anticoagulants; Z79.82 Long term (current) use of aspirin; Z91.81 History of falling; Z87.891 Personal history of nicotine dependence; Z79.4 Long term (current) use of insulin
CPT/HCPCS: 43235; 36415; 70450; 72125; 72128; 72131; 80048; 80053; 81003; 82607; 82728; 82746; 82947; 83540; 83735; 84484; 85025; 85610; 85730; 87635; 93005; 96361; 96374; 96375; 97162; 97530; 99219; 99285

== ENCOUNTER 2021-11-21 08:55 | Outpatient (REF) | payer MEDICARE, SELFPAY ==
--- NOTE | ~2021-11-21 | FL_ITS ---
EXAMINATION: FL BARIUM SWALLOW CLINICAL INFORMATION: Dysphagia. COMPARISON: None. TECHNIQUE: Barium swallow examination is performed using fluoroscopic evaluation in addition to multiple fluoroscopic spot views. The patient is imaged both upright and prone and using both thick and thin sulfate along with effervescent granules. Fluoroscopy time: 0.8 minutes DAP: 12.233 Gycm2 Images: 50 FINDINGS: Following oral administration of thick barium and and barium-coated turkey, there is slow transition of barium from the oral cavity through the esophagus and into the stomach. There is the presence of secondary and tertiary peristalsis in the mid and distal esophagus. There is no obstruction, narrowing or stricture. Mild indentation of the posterior cervical esophageal wall from ventral spondylosis is noted. There is no laryngeal penetration or aspiration. Minimal retention of barium seen in the valleculae and piriform sinuses. FL/FL barium swallow IMPRESSION: Mild prominence of secondary and tertiary peristalsis in mid and distal esophagus. There is no obstruction or narrowing. No laryngeal penetration or aspiration.
== END 2021-11-21 08:56 | disposition home or self-care (01) ==
LOC: HO.XRAY 08:55
PROVIDERS: Visit Provider Otolaryngology
DX: R13.10 Dysphagia, unspecified (principal)
CPT/HCPCS: 74220

== ENCOUNTER 2021-11-27 09:18 | Outpatient (REF) | payer MEDICARE, SELFPAY ==
--- NOTE | ~2021-11-27 | XR_ITS ---
EXAMINATION: XR CHEST CLINICAL INFORMATION: Dyspnea. COMPARISON: None TECHNIQUE: 2 views of the chest were obtained. FINDINGS: No significant abnormality is noted involving the heart, lungs, mediastinum, bony thorax or soft tissues. XR/XR chest 2V IMPRESSION: Unremarkable chest examination.
== END 2021-11-27 09:19 | disposition home or self-care (01) ==
LOC: HO.XRAY 09:18
PROVIDERS: PCP Internal Medicine; Visit Provider Internal Medicine
DX: R06.00 Dyspnea, unspecified (principal)
CPT/HCPCS: 71046

== ENCOUNTER 2021-11-30 06:41 | Day surgery (SDC) | payer MEDICARE, SELFPAY ==
[2021-11-26 13:28] VITALS: BMI 37.2
--- NOTE | 2021-11-29 10:29 | HO.ANESPROP2 ---
Documented by User: Mariel Ty NP 11/29/21 10:34 HPI - Anesthesia Eval Consult details Narrative: 71yo F for Lumbar Spinal Cord Stimulation Implant s/p EGD 11/2021 with TIVA during inpatient at [facility]. s/p spinal stim trial 07/2021 with MAC PCP cleared post [facility] discharge Xarelto for afib. To bridge with lovenox PMFSH Active Problems Active Problems: All Active Problems (Updated 11/26/21 @ 13:32 by Twila Palma RN) Overactive bladder (Acute) Stress incontinence (Acute) CHF exacerbation (Acute) Hypertensive urgency (Acute) Thrombocytosis (Acute) Anemia (Acute) Spondylosis of cervical spine with radiculopathy (Acute) Bilateral lumbar radiculopathy (Acute) Degenerative disc disease (Acute) Spinal stenosis (Acute) Spondylosis of lumbosacral spine with radiculopathy (Acute) Avulsion fracture of lateral malleolus of right fibula (Acute) Osteoarthritis of right knee (Acute) Neck pain (Acute) Headache (Acute) COVID-19 (Acute) Bronchitis (Acute) Screening for breast cancer (Acute) Post-menopausal (Acute) Adult general medical exam (Acute) Positive occult stool blood test (Acute) Hospital discharge follow-up (Acute) Acute upper GI bleed (Acute) Diabetic polyneuropathy (Acute) Thiamine deficiency (Acute) Hand pain (Acute) CVA (cerebral vascular accident) (Acute) Head injury (Acute) Left shoulder pain (Acute) Left knee pain (Acute) Left hip pain (Acute) Left hand pain (Acute) Dizziness (Acute) Diabetic neuropathy (Acute) Diabetes type 2, uncontrolled (Acute) Type 2 diabetes mellitus with other diabetic kidney complication (Acute) Proteinuria (Acute) Essential hypertension (Acute) Type 2 diabetes mellitus with diabetic polyneuropathy (Acute) Dyslipidemia (Acute) Obesity due to excess calories (Acute) Other and unspecified hyperlipidemia (Acute) Chronic heart failure with preserved ejection fraction (HFpEF) (Acute) Pulmonary hypertension (Acute) Ischemic stroke (Acute) Paroxysmal atrial fibrillation (Acute) Atherosclerotic cardiovascular disease (Acute) Hospital discharge follow-up (Acute) Urge urinary incontinence (Acute) Iron deficiency anemia (Acute) Pure hypercholesterolemia (Acute) Diabetes mellitus (Acute) Lumbar degenerative disc disease (Acute) Past Medical History Medical History Acute upper GI bleed Anemia Atherosclerotic cardiovascular disease Chronic heart failure with preserved ejection fraction (HFpEF) CVA (cerebral vascular accident) Diabetes mellitus Diabetes type 2, uncontrolled Diabetic neuropathy Diabetic polyneuropathy Dizziness Dyslipidemia Essential hypertension Falls Hand pain Head injury Headache Hospital discharge follow-up Iron deficiency anemia Ischemic stroke Left hand pain Left hip pain Left knee pain Left shoulder pain Lumbar degenerative disc disease Obesity due to excess calories Other and unspecified hyperlipidemia Paroxysmal atrial fibrillation PONV (postoperative nausea and vomiting) Proteinuria Pulmonary hypertension Pure hypercholesterolemia Thiamine deficiency Thrombus 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 Urge urinary incontinence Family History Family History Father Rectal cancer Hypertension Arthritis of knee CVD (cardiovascular disease) Mother Hypertension CVD (cardiovascular disease) Myocardial infarction Diabetes Family history of problems with anesthesia: No Surgical History Surgical History H/O colonoscopy History of Mohs micrographic surgery for skin cancer History of partial hysterectomy Hx of cardiac cath Hx of cervical spine surgery History of Problems with Anesthesia: Yes Social History Social History Household Members: Spouse Housing: House Are you a primary care director to a significant other at home: No Do you presently have visiting nurse or other home services: No Alcohol intake: never Patient Tobacco Use Status: Former Tobacco user Quit Date: 1993 Tobacco use type: Cigarette e-Cigarette/Vaping Use: Never Used Second Hand Smoke Exposure: No Have you been hit, kicked, punched, or otherwise hurt by someone within the past year? If so, by whom?: No Are you DNR?: No Advance Directives: Yes Advance Directives Information Provided: Yes Advance Directives on File: Yes Advance Directives Date on File: 07/17/20 service: No Current occupational status: retired Current occupation: Lt handed Cognitive needs: Yes (scodor/walker) Hearing needs: No Vision needs: Yes (glasses) Meds Allergies Allergy/AdvReac Type Severity Reaction Status Date / Time morphine [Morphine] Allergy Severe ITCHING, Verified 11/30/21 07:25 hives cefdinir Allergy Intermediate hives Verified 11/30/21 07:25 sulfamethoxazole Allergy Intermediate RASH Verified 11/30/21 07:25 trimethoprim Allergy Intermediate RASH Verified 11/30/21 07:25 duloxetine AdvReac Severe altered Verified 11/30/21 07:25 behavior betina AdvReac Mild RUNNY NOSE Verified 11/30/21 07:25 mustard AdvReac Mild RUNNY NOSE Verified 11/30/21 07:25 potato [POTATO] AdvReac Mild ITCHY NOSE Verified 11/30/21 07:25 soybean AdvReac Mild RUNNY NOSE Verified 11/30/21 07:25 Home Medications Medication Instructions Recorded Confirmed Last Taken Type hydroxychloroquine 200 mg tablet 200 mg PO BID 08/02/20 11/26/21 11/30/21 History (Plaquenil) dulaglutide 3 mg/0.5 mL 0.5 ml subcut QWEEK 11/13/21 11/26/21 Unknown History subcutaneous pen injector (Trulicity) empagliflozin 25 mg tablet 1 tab QAM 11/13/21 11/26/21 Unknown History (Jardiance) estradiol 0.01% (0.1 mg/gram) 1 appl vaginal 3XW 11/13/21 11/26/21 Unknown History vaginal cream ferrous sulfate 325 mg (65 mg 1 tab PO DAILY 11/13/21 11/26/21 Unknown History iron) tablet fesoterodine 8 mg tablet,extended 1 tab PO DAILY 11/13/21 11/26/21 Unknown History release 24 hr (Toviaz) insulin degludec 100 unit/mL (3 6 unit subcut DAILY 11/13/21 11/26/21 Unknown History mL) subcutaneous pen (Tresiba FlexTouch U-100 insulin) ketoconazole 2 % topical cream 1 appl topical BID 11/13/21 11/26/21 Unknown History pen needle, diabetic 32 gauge x 11/13/21 11/22/21 Unknown History (BD Meghan 2nd Gen Pen Needle) ropinirole 0.25 mg tablet 1 tab PO BEDTIME 11/13/21 11/26/21 Unknown History enoxaparin 100 mg/mL subcutaneous 1 ml subcut Q12H 11/26/21 11/26/21 11/28/21 History syringe rosuvastatin 40 mg tablet (Crestor) 40 mg PO BEDTIME 11/26/21 11/26/21 Unknown History aspirin 81 mg tablet,delayed 1 tab PO DAILY 11/30/21 11/30/21 11/21/21 History release Exam Exam Date and Time: November 29, 2021 1029 Height,Weight and Vital Signs: Height 5 ft 3 in Weight 95.254 kg Pertinent Lab Results Pertinent Lab Results: Laboratory Tests 11/14/21 11/14/21 05:23 05:23 WBC 8.5 Hgb 11.6 L Hct 35.9 L Plt Count 416 H Sodium 141 Potassium 3.9 Chloride 107 Carbon Dioxide 26 BUN 24 H Creatinine 0.77 Narrative Narrative: EKG 11/12/21 Vent. Rate : 071 BPM ? ? Atrial Rate : 071 BPM ?? P-R Int : 220 ms? QRS Dur : 114 ms ? ? QT Int : 414 ms ? ? ? P-R-T Axes : 053 -43 003 degrees ?? QTc Int : 449 ms ? Sinus rhythm with 1st degree A-V block Left axis deviation Minimal voltage criteria for LVH, may be normal variant ( Waterflow product ) Cannot rule out inferior infarct Abnormal ECG When compared with ECG of 03-NOV-2021 02:48, Cannot ruke out inferior infarct Assessment and Plan Assessment Anesthesia Assessment: Chart Reviewed Final Anesthetic Review Family History of Problems with Anesthesia: No History of Problems with Anesthesia: Yes Documented by User: Kain Pryor MD 11/30/21 10:36 COUNT INCLUDES THE [facility] Past Medical History Medical History Acute upper GI bleed Anemia Atherosclerotic cardiovascular disease Chronic heart failure with preserved ejection fraction (HFpEF) CVA (cerebral vascular accident) Diabetes mellitus Diabetes type 2, uncontrolled Diabetic neuropathy Diabetic polyneuropathy Dizziness Dyslipidemia Essential hypertension Falls Hand pain Head injury Headache Hospital discharge follow-up Iron deficiency anemia Ischemic stroke Left hand pain Left hip pain Left knee pain Left shoulder pain Lumbar degenerative disc disease Obesity due to excess calories Other and unspecified hyperlipidemia Paroxysmal atrial fibrillation PONV (postoperative nausea and vomiting) Proteinuria Pulmonary hypertension Pure hypercholesterolemia Thiamine deficiency Thrombus 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 Urge urinary incontinence Family History Family History Father Rectal cancer Hypertension Arthritis of knee CVD (cardiovascular disease) Mother Hypertension CVD (cardiovascular disease) Myocardial infarction Diabetes Surgical History Surgical History H/O colonoscopy History of Mohs micrographic surgery for skin cancer History of partial hysterectomy Hx of cardiac cath Hx of cervical spine surgery Social History Social History Household Members: Spouse Housing: House Are you a primary care director to a significant other at home: No Do you presently have visiting nurse or other home services: No Alcohol intake: never Patient Tobacco Use Status: Former Tobacco user Quit Date: 1993 Tobacco use type: Cigarette e-Cigarette/Vaping Use: Never Used Second Hand Smoke Exposure: No Have you been hit, kicked, punched, or otherwise hurt by someone within the past year? If so, by whom?: No Are you DNR?: No Advance Directives: Yes Advance Directives Information Provided: Yes Advance Directives on File: Yes Advance Directives Date on File: 07/17/20 service: No Current occupational status: retired Current occupation: Lt handed Cognitive needs: Yes (scodor/walker) Hearing needs: No Vision needs: Yes (glasses) Meds Allergies Allergy/AdvReac Type Severity Reaction Status Date / Time morphine [Morphine] Allergy Severe ITCHING, Verified 11/30/21 07:25 hives cefdinir Allergy Intermediate hives Verified 11/30/21 07:25 sulfamethoxazole Allergy Intermediate RASH Verified 11/30/21 07:25 trimethoprim Allergy Intermediate RASH Verified 11/30/21 07:25 duloxetine AdvReac Severe altered Verified 11/30/21 07:25 behavior betina AdvReac Mild RUNNY NOSE Verified 11/30/21 07:25 mustard AdvReac Mild RUNNY NOSE Verified 11/30/21 07:25 potato [POTATO] AdvReac Mild ITCHY NOSE Verified 11/30/21 07:25 soybean AdvReac Mild RUNNY NOSE Verified 11/30/21 07:25 Home Medications Medication Instructions Recorded Confirmed Last Taken Type hydroxychloroquine 200 mg tablet 200 mg PO BID 08/02/20 11/26/21 11/30/21 History (Plaquenil) dulaglutide 3 mg/0.5 mL 0.5 ml subcut QWEEK 11/13/21 11/26/21 Unknown History subcutaneous pen injector (Trulicity) empagliflozin 25 mg tablet 1 tab QAM 11/13/21 11/26/21 Unknown History (Jardiance) estradiol 0.01% (0.1 mg/gram) 1 appl vaginal 3XW 11/13/21 11/26/21 Unknown History vaginal cream ferrous sulfate 325 mg (65 mg 1 tab PO DAILY 11/13/21 11/26/21 Unknown History iron) tablet fesoterodine 8 mg tablet,extended 1 tab PO DAILY 11/13/21 11/26/21 Unknown History release 24 hr (Toviaz) insulin degludec 100 unit/mL (3 6 unit subcut DAILY 11/13/21 11/26/21 Unknown History mL) subcutaneous pen (Tresiba FlexTouch U-100 insulin) ketoconazole 2 % topical cream 1 appl topical BID 11/13/21 11/26/21 Unknown History pen needle, diabetic 32 gauge x 11/13/21 11/22/21 Unknown History (BD Meghan 2nd Gen Pen Needle) ropinirole 0.25 mg tablet 1 tab PO BEDTIME 11/13/21 11/26/21 Unknown History enoxaparin 100 mg/mL subcutaneous 1 ml subcut Q12H 11/26/21 11/26/21 11/28/21 History syringe rosuvastatin 40 mg tablet (Crestor) 40 mg PO BEDTIME 11/26/21 11/26/21 Unknown History aspirin 81 mg tablet,delayed 1 tab PO DAILY 11/30/21 11/30/21 11/21/21 History release Exam Airway Mallampati Class: III TM Dist: >3cm Neck ROM: Full Heart: rrr Lungs: clear Assessment and Plan Final Anesthetic Review NPO: No ASA Class: IV Final Preanesthetic Review: No Changes in Pt Med Stat, Meds/Allgs Chart Reviewed, Consent Obtained/Reviewed and Anes Risks/Benef Reviewed Patient Risk: High Procedure Risk: Low Anesthetic Plan Anesthetic Plan: MAC: Disposition: Standard PACU
[2021-11-30] VITALS (25 sets, daily range): BP systolic 101–213; BP diastolic 49–162; PULSE 55–69; RESP 17–22; TEMP 36.3–36.8; O2SAT 91–99; BMI 37.2
--- NOTE | ~2021-11-30 | CT_ITS ---
EXAMINATION: CT HEAD WITHOUT CONTRAST (STROKE PROTOCOL) CLINICAL INFORMATION: Stroke protocol. Headaches. Patient is anticoagulated. COMPARISON: Prior CT head 11/12/2021 TECHNIQUE: Contiguous axial imaging was performed from the skull base to vertex without intravenous administration of contrast. This CT examination was performed using dose optimization techniques as appropriate, variously including the following: *Automated exposure control *Adjustment of mA and/or kV according to patient size (this includes techniques or standardized protocols for targeted exams where dose is matched to indication/reason for exam; i.e. extremities or head) *Use of iterative reconstruction technique DLP: 867 mGy-cm FINDINGS: There is prominence to the sulci and ventricles consistent with involutional change. No evidence of intra or extra-axial fluid collection, hemorrhage, mass, or mass effect. Slender perivascular space, near the left external capsule is stable. No acute infarct seen although diffusion-weighted MRI would be more sensitive in this regard. There is diffuse calvarial thickening with frontal hyperostosis but no fracture. CT/CT head for stroke IMPRESSION: No acute intracranial pathology. Results telephoned into the emergency room, by the [facility] PSA Estefania Tran 4:20 PM, on 11/30/2021 .
--- NOTE | ~2021-11-30 | FL_ITS ---
EXAMINATION: XR FLUOROSCOPY WITH IMAGES CLINICAL INFORMATION: Lumbar spinal stimulator implant. COMPARISON: CT thoracic and lumbar spine 11/13/2021 TECHNIQUE: Fluoroscopy performed by Dr. Lio Kinsey. Fluoroscopy time: 8.5 minutes. Cumulative Dose: 139 mGy. DAP: 34.7 Gy-cm2. Images: 4. FINDINGS: There are 2 spinal stimulator electrodes seen ascending the posterior spinal canal. The electrode tips are at level of mid to lower thoracic spine, estimated at T7 and T8. There is no visible kinking or defect of the leads. Again, there are degenerative changes with multilevel disc narrowing and bridging osteophytes spine. FL/FL guidance in OR IMPRESSION: Fluoroscopy for pain management procedure.
[2021-11-30] MEDS: Lactated Ringers 1,000 ML 100 ML IVCONT (07:11)
[2021-11-30 07:24] LABS: Glucose, Whole Blood 118 mg/dL (60-115)
--- NOTE | 2021-11-30 07:37 | MHC.SHP ---
Pre-Procedural Eval Section A Date of Service: 11/30/21 The patient is an INPATIENT: No Changes since office visit: Yes Patient answered all questions The History & Physical has been completed within 30 days and I have reviewed it.: No Section B Chief Complaint: diabetes Details of Present Illness: as above Relevant Family History (Specify if Yes): No Relevant Social History: Other (specify) Present Medications: None Medical History: Significant History History of Previous Operations: No relevant previous surgery Allergies: Allergies Allergy/AdvReac Type Severity Reaction Status Date / Time morphine [Morphine] Allergy Severe ITCHING, Verified 11/30/21 07:25 hives cefdinir Allergy Intermediate hives Verified 11/30/21 07:25 sulfamethoxazole Allergy Intermediate RASH Verified 11/30/21 07:25 trimethoprim Allergy Intermediate RASH Verified 11/30/21 07:25 duloxetine AdvReac Severe altered Verified 11/30/21 07:25 behavior betina AdvReac Mild RUNNY NOSE Verified 11/30/21 07:25 mustard AdvReac Mild RUNNY NOSE Verified 11/30/21 07:25 potato [POTATO] AdvReac Mild ITCHY NOSE Verified 11/30/21 07:25 soybean AdvReac Mild RUNNY NOSE Verified 11/30/21 07:25 Review of Systems Sugical H&P ROS: Negative: Cardiovascular, Respiratory, Neurological, Psychiatric, Hem-Onc, Allergic/Immunologic, Gastrointestinal, Genitourinary, Musculoskeletal, Integumentary and Eyes/Ears/Nose/Throat and Yes, Specify: Constitution (morbid obesity) and Endocrine (diabetes II) Exam Surgical H&P Exam: Normal: HEENT, Normal: Heart, Normal: Lungs, Normal: Extremities, Normal: Skin and Normal: Neurological and Significant Findings: Abdomen (enlarged due to i/a and s/q fat) Plan Diagnosis/Plan: Unchanged I have reviewed the history and physical and performed a pertinent physical examination on my patient. No changes have occurred unless specified.
--- NOTE | 2021-11-30 10:24 | PC.NURSE ---
updated of the surgical delay and aware that his is still in sss and aware of time to anticipate doctors post op call.
--- NOTE | 2021-11-30 13:20 | P.BOP_ITS ---
Brief Operative Note Date of Service: 11/30/21 Pre-op diagnosis: diabetes diabetic neuropathy Post-op diagnosis: same Procedure: implantation of Nevro spinal cord stimulator comprising of Omni Nevro battery and 2 epidural leads. Surgeon: Lio Kinsey MD Anesthesia: MAC Was an Orthopedic Nurse Practitioner used for this Procedure?: No Estimated blood loss (mL): 19 Pathology: none sent Condition: stable Disposition: PACU
--- NOTE | 2021-11-30 13:22 | P.OP_ITS ---
Operative Note Operative Note Date of Service: 07/20/21 Narrative: ?Missy is a pleasant 71 y.o. female who came today into the operating room for Implantation of spinal cord stimulator Nevro for the treatment of post laminectomy syndrome and diabetic polyneuropathy. Preoperatively patient received Clindamicin 900 mg approximately 30 min before procedure. After obtaining informed consent patient was brought to the operating room, SHE was positioned prone on operating table, [employer] monitors were applied and patient was deeply sedated.? The patient was taken inside of the operating room where he was positioned prone operating table.? Time-out was performed delineating correct site, side, the nature of the procedure, patient's allergy, preoperative antibiotic if needed.? All operating room staff was participating in OR time-out procedure. Patient's entire back was prepped with ChloraPrep twice and draped with full body fenestrated drape including Ioban film.? Sterilely draped C-arm was brought over operating field and sqare picture of T11-T12 L1 L2 vertebrae as were demonstrated on the screen.? Attention FIRST? was concentrated on the L1-L2 epidural interspace.? The location of the projection of the midline spinous process I of L2 and L3 vertebra was infiltrated with mixture of lidocaine and bupivacaine. Ten blade was used to make midline incision, the incision was widened and deepened using electrocautery until prevertebral fascia was seen. [place] retractor was used to open the wound. The projection of the pedicle center of the _L3 vertebra on prevertebral fascia was found on the skin using C- arm.? This location was injected with mixture of lidocaine 2% and Marcaine 0.5% 5 cc.? .? 10 cm 14 gauge introducer epidural needle was inserted through the fascia and advanced to L1-L2 epidural interspace.? The advancement of the needle was performed on anterior posterior and lateral views.?SHANNAN to air was used to detect epidural space. Guitar wire and loss of resistance technique were used to locate epidural space.? When guitar wire was spread in the epidural fashion, epidural lead was inserted through the needle. However the advancement of the epidural lead at this position was very difficult probably due to after trial epidural adhesions. Decision was made to switch to the T12 on 1 level. The 15 cm 14 gauge introducer epidural needle was brought on the operating field inserted through the previous point on the fascia and advanced to T12-L1 level when tip of the needle cleared out L1 lamina upper border loss of resistance technique was used to locate epidural space. Guitar wire was used to locate epidural space. Epidural lead was inserted through the needle and advanced in the posterior epidural space to the top of T8 vertebral image on anterior posterior view and verified in the posterior epidural space on lateral view. the advancement went very difficult and the position of the epidural lead was found to be slightly left to the midline. After that location of the projection of the LEFT pedicle center of the L3 vertebra was found on The fascia using C-arm.? This location was injected with mixture of lidocaine 2% and Marcaine 0.5% 5 cc.? After that 11 blade was used to make a sen on the skin.? 10 cm 14 gauge curved introducer epidural needle was inserted through the sen and advanced to L1- L2 epidural interspace.? The advancement of the needle was performed on anterior posterior and lateral views.? Guitar wire and loss of resistance technique were used to locate epidural space.? When guitar wire was spread in the epidural fashion, epidural lead was inserted through the needle and advanced to the T9 epidural interspace slightly Right to the existing line.After satisfactory position of the leads were established the needles were withdrawn, the stylette wires were removed from the epidural leads.? anchoring devices were brought on the operating field and advanced to the level preserved of prevertebral fascia. After that the were stitched to the prevertebral fascia using 1-0 Tycron suture 2. Sutures for each anchoring device. After position of the anchoring device was found satisfactory and the epidural leads were found not to be dislodged from the stab list positions the anchoring screw on each anchoring device was tight until 3 clicks were heard. After that the wound was irrigated with copious amount of normal saline containing vancomycin. Capillary bleeding of extensive amount was noticed throughout the wound. Surgicel was obtained and wound was packed with Surgicel. After that attention was concentrated on the left upper buttock where the patient wanted her diary to be implanted. To cm below the top of the iliac crest projection to the skin horizontal line was used to inject local anesthetic mixture of lidocaine and Ropivacaine In linear fashion. After that 10 blade scalpel was used to make skin incision the move wound was widened until 2 cm deep and pocket was formed going caudad from the skin incision. Thorough hemostasis was performed. Wound was irrigated with copious amount of normal saline containing vancomycin. Tunneling device was inserted through the wound and advanced to the midline incision wound. The epidural leads were inserted is into the tunneling channel and dislodged into the left-sided wound. The SCS omnia battery was brought on the field and it was connected to the epidural leads. AP impedance was found to be satisfactory. Surgicel was removed from midline incision still capillary minimal bleeding was observed. Two anchoring sutures were applied to most superior lateral and most superior medial corners of the wound the wore connected to the the battery, epidural electrodes were gathered behind the body of the battery and battery was inserted into the pocket. After that the anchoring sutures were tied. Irrigation was performed after that on boss midline incision and lateral incision in the left upper buttock. After that 0 Polysorb suture was used to close the wound, and 2-0 Polysorb suture was used to approximate the skin. [place] were applied to the skin. Bacitracin was applied to eduardo line compression dressing was applied . The patient tolerated procedure well she was awaken and she was taking outside of the operating room to recovery room where she recovered uneventfully.
[2021-11-30] MEDS: 0.9 % Sodium Chloride 500 ML IV (13:55)
[2021-11-30] MEDS: Butalb/Acetamin/Caff 50/325/40 TABLET 1 TAB PO (13:55)
--- NOTE | 2021-11-30 16:48 | PHA.MEDREC ---
Pharmacy Consult ? Medication Reconciliation Pharmacy has reviewed the medication reconciliation completed by Twila.
--- NOTE | 2021-11-30 17:14 | P.HPHOSP_ITS ---
History of Present Illness Date of Service: 11/30/21 <RIOS Tsang - Last Filed: 11/30/21 17:49> Attending physician on admission: Zully Ayala <RIOS Tsang - Last Filed: 11/30/21 17:49> Chief Complaint: headache <RIOS Tsang - Last Filed: 11/30/21 17:49> this is a 71-year-old female with multiple medical problems who presented to [facility] for elective spinal cord stimulator placement. In the PACU she was noted to have elevated blood pressure. Blood pressure increased to 213/139. She received total of 15 mg of IV labetalol. She had associated headache reported as 10/10 in severity, the worse headache she has ever had before. This was associated with episode of vomiting. PACU call hospitalist to admit her for further management. Brain CT was obtained to rule out bleed and was negative for acute intracranial hemorrhage or stroke. Blood pressure started coming down after administration of labetalol and headache has improved to 3/10 in severity at this time. Blood pressure now 145/60. Patient denies any chest pain, shortness of breath, blurry vision. COVID vaccination status- Pfizer x3 <RIOS Tsang - Last Filed: 11/30/21 17:49> Review of Systems Review of Systems: Yes all other systems are reviewed and are negative <RIOS Tsang - Last Filed: 11/30/21 17:49> Constitutional: Constitutional: Denies chills and Denies fever(s) <ROIS Tsang Last Filed: 11/30/21 17:49> Cardiovascular: Cardiovascular: Denies chest pain and Denies palpitations <RIOS Tsang Last Filed: 11/30/21 17:49> Respiratory: Respiratory: Denies cough <RIOS Tsang Last Filed: 11/30/21 17:49> Gastrointestinal: Gastrointestinal: Denies abdominal pain, Denies nausea and Reports vomiting <RIOS Tsang Last Filed: 11/30/21 17:49> Endocrine: Endocrine: Denies palpitations <RIOS Tsang Last Filed: 11/30/21 17:49> PMFSH Medical History: Medical History Acute upper GI bleed Anemia Atherosclerotic cardiovascular disease Chronic heart failure with preserved ejection fraction (HFpEF) CVA (cerebral vascular accident) Diabetes mellitus Diabetes type 2, uncontrolled Diabetic neuropathy Diabetic polyneuropathy Dizziness Dyslipidemia Essential hypertension Falls Hand pain Head injury Headache Hospital discharge follow-up Iron deficiency anemia Ischemic stroke Left hand pain Left hip pain Left knee pain Left shoulder pain Lumbar degenerative disc disease Obesity due to excess calories Other and unspecified hyperlipidemia Paroxysmal atrial fibrillation PONV (postoperative nausea and vomiting) Proteinuria Pulmonary hypertension Pure hypercholesterolemia Thiamine deficiency Thrombus 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 Urge urinary incontinence <RIOS Tsang - Last Filed: 11/30/21 17:49> Family History: Family History Father Rectal cancer Hypertension Arthritis of knee CVD (cardiovascular disease) Mother Hypertension CVD (cardiovascular disease) Myocardial infarction Diabetes <RIOS Tsang - Last Filed: 11/30/21 17:49> Surgical History: Surgical History H/O colonoscopy History of Mohs micrographic surgery for skin cancer History of partial hysterectomy Hx of cardiac cath Hx of cervical spine surgery <RIOS Tsang - Last Filed: 11/30/21 17:49> Social History: Social History Household Members: Spouse Housing: House Are you a primary rn patient care to a significant other at home: No Do you presently have visiting nurse or other home services: No Alcohol intake: never Patient Tobacco Use Status: Former Tobacco user Quit Date: 1993 Tobacco use type: Cigarette Smoked in Last 30 Days: No e-Cigarette/Vaping Use: Never Used Patient Interested in Nicotine Replacement: No Patient Given Instructions on How to Stop Smoking: No Second Hand Smoke Exposure: No Use of substances other than those prescribed or required for medical reasons: No Currently Displaying Signs/Symptoms of Drug Intoxication Withdrawal: No Have you been hit, kicked, punched, or otherwise hurt by someone within the past year? If so, by whom?: No Do you feel safe in your current relationship?: No Is there a partner from a previous relationship who is making you feel unsafe now?: No Are you made to feel afraid or neglected: No Spiritual Healthcare Practices: sabianism Congregational Healthcare Practices: Methodist sabianism Are you DNR?: No Advance Directives: Yes Advance Directives Information Provided: Yes Advance Directives on File: Yes Advance Directives Date on File: 07/17/20 Do you have thoughts of harming others: None Do you have a plan to hurt others: No Plan Recently lost weight without trying: No How much weight loss: Not applicable Eating poorly because of decreased appetite: No Nutrition screen score: 0 Nutrition Risks: No Nutritional Risk Patient : No : No Poor oral hygiene: No service: No Current occupational status: retired Current occupation: Lt handed Cognitive needs: Yes (scodor/walker) Hearing needs: No Vision needs: Yes (glasses) <RIOS Tsang - Last Filed: 11/30/21 17:49> Meds Allergies/Adverse reactions: Allergies Allergy/AdvReac Type Severity Reaction Status Date / Time morphine [Morphine] Allergy Severe ITCHING, Verified 11/30/21 07:25 hives cefdinir Allergy Intermediate hives Verified 11/30/21 07:25 sulfamethoxazole Allergy Intermediate RASH Verified 11/30/21 07:25 trimethoprim Allergy Intermediate RASH Verified 11/30/21 07:25 duloxetine AdvReac Severe altered Verified 11/30/21 07:25 behavior betina AdvReac Mild RUNNY NOSE Verified 11/30/21 07:25 mustard AdvReac Mild RUNNY NOSE Verified 11/30/21 07:25 potato [POTATO] AdvReac Mild ITCHY NOSE Verified 11/30/21 07:25 soybean AdvReac Mild RUNNY NOSE Verified 11/30/21 07:25 <RIOS Tsang - Last Filed: 11/30/21 17:49> Active Medications: Current Medications Acetaminophen (Acetaminophen 325 Mg Tablet) 650 mg PO ONCE PRN PRN Reason: Pain, Mild (Pain Scale 1-3) Acetaminophen (Acetaminophen 325 Mg Tablet) 650 mg PO Q6H PRN PRN Reason: Pain, Mild (Pain Scale 1-3) Docusate Sodium (Docusate Sodium 100 Mg Capsule) 100 mg PO DAILY SHANON Furosemide (Furosemide 40 Mg Tablet) 40 mg PO DAILY SHANON; Protocol Hydralazine HCl (Hydralazine Hcl 20 Mg/Ml Vial) 5 mg IVPUSH Q20M PRN; Protocol PRN Reason: SBP > 160 Labetalol HCl (Labetalol Hcl 20 Mg/4 Ml Syringe) 5 mg IVPUSH Q10M PRN PRN Reason: SBP > 160 Last Admin: 11/30/21 15:05 Dose: 5 mg Losartan Potassium (Losartan Potassium 25 Mg Tablet) 25 mg PO DAILY SHANON; Protocol Non-Formulary Medication (Insulin Degludec [Tresiba Flextouch U-100]) 6 unit MCCALLUM BCUT DAILY [facility] Omeprazole (Omeprazole 40 Mg Capsule.Dr) 40 mg PO DAILY [facility] Ondansetron HCl (Ondansetron Hcl 4 Mg/2 Ml Vial) 4 mg IVPUSH ONCE PRN PRN Reason: Nausea and Vomiting Ondansetron HCl (Ondansetron Hcl 4 Mg/2 Ml Vial) 4 mg IVPUSH Q8H PRN PRN Reason: Nausea and Vomiting Pharmacy Consult (Consult Rx Perform Med Rec) 1 each MISCELLANE ONCE PRN PRN Reason: Consult order Sodium Chloride (0.9 % Sodium Chloride Flush 3 Ml Syringe) 3 ml IVFLUSH QSHIFT [facility] <RIOS Tsang - Last Filed: 11/30/21 17:49> Home medications: Home Medications Medication Instructions Recorded Confirmed Last Taken Type hydroxychloroquine 200 mg tablet 200 mg PO BID 08/02/20 11/26/21 11/30/21 History (Plaquenil) dulaglutide 3 mg/0.5 mL 0.5 ml subcut QWEEK 11/13/21 11/26/21 Unknown History subcutaneous pen injector (Trulicity) empagliflozin 25 mg tablet 1 tab QAM 11/13/21 11/26/21 Unknown History (Jardiance) estradiol 0.01% (0.1 mg/gram) 1 appl vaginal 3XW 11/13/21 11/26/21 Unknown History vaginal cream ferrous sulfate 325 mg (65 mg 1 tab PO DAILY 11/13/21 11/26/21 Unknown History iron) tablet fesoterodine 8 mg tablet,extended 1 tab PO DAILY 11/13/21 11/26/21 Unknown History release 24 hr (Toviaz) insulin degludec 100 unit/mL (3 6 unit subcut DAILY 11/13/21 11/26/21 Unknown History mL) subcutaneous pen (Tresiba FlexTouch U-100 insulin) ketoconazole 2 % topical cream 1 appl topical BID 11/13/21 11/26/21 Unknown History pen needle, diabetic 32 gauge x 11/13/21 11/22/21 Unknown History (BD Meghan 2nd Gen Pen Needle) ropinirole 0.25 mg tablet 1 tab PO BEDTIME 11/13/21 11/26/21 Unknown History rosuvastatin 40 mg tablet (Crestor) 40 mg PO BEDTIME 11/26/21 11/26/21 Unknown History aspirin 81 mg tablet,delayed 1 tab PO DAILY 11/30/21 11/30/21 11/21/21 History release <RIOS Tsang - Last Filed: 11/30/21 17:49> Physical Exam Vital Signs and Narrative: Vital Signs: Last Vital Signs Temp 97.5 F 11/30/21 13:12 Pulse 66 11/30/21 15:25 Resp 20 11/30/21 15:25 BP 173/75 H 11/30/21 15:25 Pulse Ox 97 11/30/21 15:25 O2 Del Method 11/30/21 15:25 O2 Flow Rate 2 11/30/21 15:25 BMI result Body Mass Index 37.2 <RIOS Tsang - Last Filed: 11/30/21 17:49> Const: General: cooperative, comfortable, alert and awake <RIOS Tsang Last Filed: 11/30/21 17:49> Nutritional Appearance: overweight <RIOS Tsang Last Filed: 11/30/21 17:49> Orientation/consciousness: patient oriented x3 <RIOS Tsang Last Filed: 11/30/21 17:49> Resp: Effort & Inspection: normal respiratory effort and able to speak in complete sentences <RIOS Tsang Last Filed: 11/30/21 17:49> Auscultation: clear to auscultation bilaterally <RIOS Tsang Last Filed: 11/30/21 17:49> Cardio: Rate: regular rate <RIOS Tsang Last Filed: 11/30/21 17:49> Heart sounds: S1 normal heart sound present and S2 normal heart sound present <RIOS Tsang - Last Filed: 11/30/21 17:49> GI: Inspection: No distended <RIOS Tsang - Last Filed: 11/30/21 17:49> Palpation (GI): Soft to palpation and nontender <RIOS Tsang - Last Filed: 11/30/21 17:49> Neuro: Other: strength LE equal b/l; insation slightly less on right leg <RIOS Tsang - Last Filed: 11/30/21 17:49> General: patient oriented x3 <RIOS Tsang - Last Filed: 11/30/21 17:49> Extrem: General: Yes no pedal edema <RIOS Tsang - Last Filed: 11/30/21 17:49> Results Labs CBC and Chem 7: : 12/01/21 05:48 12/01/21 05:48 <RIOS Tsang - Last Filed: 11/30/21 17:49> Labs: Laboratory Results - last 24 hr 11/30/21 07:16 POC Glucose 118 H <RIOS Tsang - Last Filed: 11/30/21 17:49> Imaging Radiologist's Impressions: Impressions Head CT 11/30/21 16:09 IMPRESSION: No acute intracranial pathology. Results telephoned into the emergency room, by the [facility] PSA Estefania Tran 4:20 PM, on 11/30/2021 . <RIOS Tsang - Last Filed: 11/30/21 17:49> Assessment and Plan (1) Hypertensive urgency: Status: Acute <RIOS Tsang - Last Filed: 11/30/21 17:49> this is a 71-year-old female with history of hypertension, diabetes, multiple other medical issues who presented for spinal stimulator placement found to have uncontrolled hypertension admitted for observation hypertensive urgency blood pressure has improved with administration of labetalol ? pain induced brain CT negative for bleed recently discharged from the hospital and antihypertensive were held. Losartan was resumed at lower dose and Lasix was resumed by PCP BP now down to 148/57 -continue losartan -norvasc and atenolol on hold since d/c, can be resumed as BP allows - tele monitoring spinal stimulator placement due to uncontrolled blood pressure and headache stimulator was turned off in PACU and will be turned back on at follow-up appointment in 1 week - bed rest x3 days, up only for BM - continue clindamycin - do not remove bandage until follow-up in 1 week - keep abdominal binder in place except for bathing - no bending or twisting, no lifting more than 2 lb per hand - can resume Xarelto on November 02 - avoid constipation - no NSAIDs for 8 weeks (presumably including aspirin) - follow up with Dr. Kinsey in 7 days DM with neuropathy Trulicity, Jardiance, metformin and Tresiba on hold. conversion from Tresiba to Lantus only about 4 units, will just cover with sliding scale for now - sliding scale -ADA diet - continue gabapentin for neuropathy PAF Xarelto on hold for spinal stimulator placement can resume November 02 atenolol has been on hold since last discharge heart rate controlled chronic pain Continue baclofen, oxycodone, gabapentin the remainder of her baseline home medications will be continued as prescribed dvt ppx - mechanical devices Healthcare proxy - Code status -full code attending - dr. ayala <RIOS Tsang - Last Filed: 11/30/21 17:49> this is a 71-year-old female with history of hypertension, diabetes, multiple other medical issues who presented for spinal stimulator placement found to have uncontrolled hypertension admitted for observation hypertensive urgency blood pressure has improved with administration of labetalol ? pain induced brain CT negative for bleed recently discharged from the hospital and antihypertensive were held. Losartan was resumed at lower dose and Lasix was resumed by PCP BP now down to 148/57 -continue losartan -norvasc and atenolol on hold since d/c, can be resumed as BP allows - tele monitoring spinal stimulator placement due to uncontrolled blood pressure and headache stimulator was turned off in PACU and will be turned back on at follow-up appointment in 1 week - bed rest x3 days, up only for BM - continue clindamycin - do not remove bandage until follow-up in 1 week - keep abdominal binder in place except for bathing - no bending or twisting, no lifting more than 2 lb per hand - can resume Xarelto on November 02 - avoid constipation - no NSAIDs for 8 weeks (presumably including aspirin) - follow up with Dr. Kinsey in 7 days DM with neuropathy Trulicity, Jardiance, metformin and Tresiba on hold. conversion from Tresiba to Lantus only about 4 units, will just cover with sliding scale for now - sliding scale -ADA diet - continue gabapentin for neuropathy PAF Xarelto on hold for spinal stimulator placement can resume November 02 atenolol has been on hold since last discharge heart rate controlled chronic pain Continue baclofen, oxycodone, gabapentin the remainder of her baseline home medications will be continued as prescribed dvt ppx - mechanical devices Healthcare proxy - Code status -full code attending - dr. ayala Patient seen examined case discussed with APC On examination Patient is mildly anxious awake alert in no distress Neck is supple no JVD Lungs clear to auscultation bilaterally Heart regular rate rhythm Abdomen obese soft nontender Neuro speech clear moving all 4 extremities alert oriented x3 Assessment and plan Hypertensive urgency likely due to pain and recently stopping antihypertensive medications , currently blood pressure is stable with med for observation for close blood pressure monitoring and close neuro checks Agree with above treatment plan <Zully Ayala MD - Last Filed: 12/01/21 10:28> Quality Stroke Does the patient have a stroke diagnosis?: No <RIOS Tsang - Last Filed: 11/30/21 17:49> VTE Prior VTE?: No <RIOS Tsang - Last Filed: 11/30/21 17:49> VTE Risk Level:: Medical - moderate - high <RIOS Tsang - Last Filed: 11/30/21 17:49> VTE Device Contraindication: N/A - Device Ordered <RIOS Tsang - Last Filed: 11/30/21 17:49> VTE Drug Contraindication: Treatment Not Indicated <RIOS Tsang - Last Filed: 11/30/21 17:49>
[2021-11-30] MEDS: 0.9 % Sodium Chloride Flush 3 ML SYRINGE IVFLUSH (19:35)
[2021-11-30] MEDS: Atorvastatin Calcium 80 MG TABLET PO (20:05)
[2021-11-30] MEDS: rOPINIRole HCL 0.25 MG TABLET PO (20:05)
[2021-11-30] MEDS: Hydroxychloroquine Sulfate 200 MG TABLET PO (20:05)
[2021-11-30] MEDS: Gabapentin 400 MG CAPSULE 800 MG PO (20:05)
[2021-11-30] MEDS: Sennosides 8.6 MG TABLET 17.2 MG PO (20:05)
[2021-11-30 20:40] LABS: Glucose, Whole Blood 157 mg/dL (60-115)
[2021-11-30] MEDS: Insulin Lispro 100 UNIT/ML 3 ML VIAL SUBCUT (20:59)
[2021-11-30] MEDS: Clindamycin HCL 300 MG CAPSULE PO ×2 (20:59→23:46)
[2021-11-30] MEDS: Baclofen 10 MG TABLET 5 MG PO (22:14)
[2021-11-30] MEDS: Acetaminophen 325 MG TABLET 650 MG PO (22:15)
[2021-11-30] MEDS: traZODone HCL 100 MG TABLET PO (23:46)
[2021-11-30] MEDS: oxyCODONE HCl Immed Release 5 MG TABLET PO (23:46)
[2021-12-01] VITALS: BP 154/68; PULSE 61; RESP 17; TEMP 36.6; O2SAT 95
--- NOTE | 2021-12-01 03:43 | PC.NURSE ---
11/30/212039 pt c/o 10/19 back pain no pain med ordered. notified ordered oxycodone 5mg po q 6hr prn.given at 2345 with good effect.
[2021-12-01 04:00] VITALS: BP 125/61; PULSE 56; RESP 18; TEMP 36.2; O2SAT 95
[2021-12-01] MEDS: Clindamycin HCL 300 MG CAPSULE PO ×2 (05:57→12:32)
[2021-12-01] MEDS: Omeprazole 40 MG CAPSULE.DR PO (05:57)
[2021-12-01] MEDS: Acetaminophen 325 MG TABLET 650 MG PO (06:39)
[2021-12-01] MEDS: Baclofen 10 MG TABLET 5 MG PO (06:40)
[2021-12-01] MEDS: oxyCODONE HCl Immed Release 5 MG TABLET PO (06:40)
[2021-12-01 06:41] LABS: MANUAL DIFF FLAG NO
[2021-12-01 06:45] LABS: Basophils Absolute Auto 0.1 X10*3/uL (0.0-0.2); Basophils Percent Auto 0.9 % (0-2); Eosinophils Absolute Auto 0.2 X10*3/uL (0.0-0.4); Eosinophils Percent Auto 3.1 % (0-4); Hemoglobin 10.7 g/dl (12.0-16.0); Imm Gran Abs Auto 0.03 X10*3/uL (0.00-0.03); Imm Gran Pct Auto 0.4 % (0.0-0.4); Lymphocytes Absolute Auto 1.7 X10*3/uL (1.2-4.9); Lymphocytes Percent Auto 22.5 % (20-40); Mean Corpuscular HGB Conc 32.4 g/dl (31.0-35.0); Mean Corpuscular Hemoglobin 28.1 pg (27.0-33.0); Mean Corpuscular Volume 86.6 fL (80.0-98.0); Mean Platelet Volume 9.3 fL (9.4-12.3); Monocytes Absolute Auto 0.9 X10*3/uL (0.1-1.2); Monocytes Percent Auto 11.5 % (2-11); Neutrophils Absolute Auto 4.6 x10*3/uL (2.0-8.3); Neutrophils Percent Auto 61.6 % (45-73); Platelet Count 347 X10*3/uL (160-400); Red Blood Count 3.81 X10*6/uL (4.20-5.50); White Blood Count 7.5 X10*3/uL (4.8-10.8)
[2021-12-01 07:28] LABS: Glucose, Whole Blood 108 mg/dL (60-115)
[2021-12-01 07:37] LABS: Anion Gap 11 (12-20); Blood Urea Nitrogen 20 mg/dL (9-16); Calcium 9.4 mg/dL (8.4-10.2); Carbon Dioxide 27 mmol/L (22-29); Chloride 103 mmol/L (96-108); Creatinine Clr Calc Pharmacy 72.3; Estimated Glomerular Filt Rate > 60; Glucose Random 90 mg/dL (60-115); Potassium 4.2 mmol/L (3.3-5.1); Sodium 137 mmol/L (135-145)
[2021-12-01 08:00] VITALS: BP 148/65; PULSE 60; RESP 14; TEMP 35.9; O2SAT 92
[2021-12-01] MEDS: Losartan Potassium 25 MG TABLET PO (08:25)
[2021-12-01] MEDS: Escitalopram Oxalate 10 MG TABLET PO (08:25)
[2021-12-01] MEDS: Gabapentin 400 MG CAPSULE 800 MG PO (08:25)
[2021-12-01] MEDS: Fenofibrate 160 MG TABLET PO (08:25)
[2021-12-01] MEDS: Furosemide 40 MG TABLET PO (08:25)
[2021-12-01] MEDS: Docusate Sodium 100 MG CAPSULE PO (08:25)
[2021-12-01] MEDS: Hydroxychloroquine Sulfate 200 MG TABLET PO (08:25)
[2021-12-01] MEDS: Mirabegron 25 MG TAB.ER.24H PO (08:25)
[2021-12-01] MEDS: 0.9 % Sodium Chloride Flush 3 ML SYRINGE IVFLUSH (08:28)
[2021-12-01 08:58] VITALS: O2SAT 95
--- NOTE | 2021-12-01 10:28 | PM.DS ---
DS: Providers Provider Date of Service: 12/01/21 Primary care physician: Marla Bray MD DS: Diagnosis Discharge Diagnosis (1) Hypertensive urgency: Status: Acute DS: Summary Hospital Course Hospital Course: Chief Complaint: headache ?this is a 71-year-old female with multiple medical problems who presented to [facility] for elective spinal cord stimulator placement.? In the PACU she was noted to have? elevated blood pressure.? Blood pressure increased to 213/139.? She received total of 15 mg of IV labetalol.? She had associated headache reported as 10/10 in severity, the worse headache she has ever had before.? This was associated with episode of vomiting.? PACU call hospitalist to admit her for further management.? Brain CT was obtained to rule out bleed and was negative for acute intracranial hemorrhage or stroke.? Blood pressure started coming down after administration of labetalol and headache has improved to 3/10 in severity at this time.? Blood pressure now 145/60.? Patient denies any chest pain, shortness of breath, blurry vision. ? COVID vaccination status- Pfizer x3 Hospital course 71-year-old female with history of hypertension, diabetes, multiple other medical issues who presented for spinal stimulator placement found to have uncontrolled hypertension postprocedure, treated aggressively with IV labetalol with good blood pressure control, CT brain showed no bleed patient monitored overnight blood pressure remains stable, patient was recently discharged from hospital and antihypertensives were held due to low blood pressure she has been placed back on low-dose losartan and Lasix by PCP, recommend to continue outpatient follow-up with primary care physician and to increase dose of losartan as needed, patient is being discharged home post spinal stimulator recommendation including to continue clindamycin,do not remove bandage until follow-up in 1 week, keep abdominal binder in place except for bathing, no bending or twisting, no lifting more than 2 lb per hand, can resume Xarelto on November 02, avoid constipation, no NSAIDs for 8 weeks (presumably including aspirin), follow up with Dr. Kinsey in 7 days In regard to chronic medical issues she has been recommended to continue all other home medications as before. Time Spent with Patient Time attestation: Total time spent providing and/or coordinating discharge services: Discharge coordination time: Greater than 30 minutes Quality: Safe Use of Opioids Does Pt have an Active Cancer Diagnosis on the Problem List?: No Quality: Stroke Does the patient have a stroke diagnosis?: No Physical Exam Vital Signs: Vital Signs: Last Vital Signs Temp 96.7 F L 12/01/21 08:00 Pulse 60 12/01/21 08:00 Resp 14 12/01/21 08:00 BP 148/65 H 12/01/21 08:00 Pulse Ox 95 12/01/21 08:58 O2 Del Method 12/01/21 08:58 O2 Flow Rate 2 11/30/21 17:48 Oxygen Flow Rate 90 12/01/21 08:58 BMI result Body Mass Index 37.2 Const: Other: General awake alert x3 , no acute distress. Neck supple no JVD. CVS regular rate rhythm, Respiratory lungs clear to auscultation, no respiratory distress, no wheeze, no rhonchi. Gastrointestinal abdomen soft, nontender, bowel sounds audible, no guarding , no rigidity. Extremities no edema. Neuro nonfocal Skin no rash Psych appropriate affect DS: Data Data Completed and Pending Labs on day of discharge: Laboratory Results - last 24 hr 11/30/21 12/01/21 12/01/21 20:36 05:48 05:48 WBC 7.5 RBC 3.81 L Hgb 10.7 L Hct 33.0 L MCV 86.6 MCH 28.1 MCHC 32.4 RDW 16.0 Plt Count 347 MPV 9.3 L Immature Gran % (Auto) 0.4 Neut % (Auto) 61.6 Lymph % (Auto) 22.5 [place] % (Auto) 11.5 H Eos % (Auto) 3.1 Baso % (Auto) 0.9 Lymph # (Auto) 1.7 [place] # (Auto) 0.9 Eos # (Auto) 0.2 Baso # (Auto) 0.1 Abs Immat Gran (auto) 0.03 Absolute Neuts (auto) 4.6 Absolute Nucleated RBC 0.000 Nucleated RBC % (auto) 0.0 Sodium 137 Potassium 4.2 Chloride 103 Carbon Dioxide 27 Anion Gap 11 L BUN 20 H Creatinine 0.76 Estim Creat Clear Calc 72.3 Estimated GFR > 60 POC Glucose 157 H Random Glucose 90 Calcium 9.4 12/01/21 07:24 WBC RBC Hgb Hct MCV MCH MCHC RDW Plt Count MPV Immature Gran % (Auto) Neut % (Auto) Lymph % (Auto) [place] % (Auto) Eos % (Auto) Baso % (Auto) Lymph # (Auto) [place] # (Auto) Eos # (Auto) Baso # (Auto) Abs Immat Gran (auto) Absolute Neuts (auto) Absolute Nucleated RBC Nucleated RBC % (auto) Sodium Potassium Chloride Carbon Dioxide Anion Gap BUN Creatinine Estim Creat Clear Calc Estimated GFR POC Glucose 108 Random Glucose Calcium Discharge Plan Discharge Patient Disposition: Home, Self-Care Referrals: Marla Henderson MD [Primary Care Provider] - 1 Week Discharge Medications: Continued fluticasone propionate 50 mcg/actuation spray,suspension 1 spray intranasal DAILY 90 Days Qty: 16 3RF Rx Instructions: administer into each nostril trazodone 100 mg tablet 100 mg PO BEDTIME PRN (Reason: sleep) 90 Days Qty: 90 1RF escitalopram oxalate [Lexapro] 10 mg tablet 10 mg PO DAILY 90 Days Qty: 90 1RF sennosides [senna] 8.6 mg tablet 17.2 mg PO BEDTIME 90 Days Qty: 180 3RF cholecalciferol (vitamin D3) 50 mcg (2,000 unit) tablet 2,000 unit PO DAILY 90 Days Qty: 90 3RF metformin 1,000 mg tablet 1,000 mg PO BID 90 Days Qty: 180 3RF thiamine HCl (vitamin B1) 100 mg tablet 100 mg PO DAILY 90 Days Qty: 90 1RF docusate sodium [DOK] 100 mg capsule 100 mg PO BID PRN (Reason: constipation) 90 Days Qty: 180 2RF cyanocobalamin (vitamin B-12) 1,000 mcg tablet 1,000 mcg PO DAILY 90 Days Qty: 90 3RF baclofen 10 mg tablet 5 mg PO TID PRN (Reason: muscle pain) 90 Days Qty: 135 0RF fenofibrate 160 mg tablet 160 mg PO DAILY 90 Days Qty: 90 3RF oxycodone 5 mg tablet 5 mg PO Q6H PRN (Reason: pain) 30 Days Qty: 120 0RF losartan 25 mg tablet 25 mg PO DAILY 90 Days Qty: 90 0RF loratadine 10 mg tablet 10 mg PO DAILY 90 Days Qty: 90 0RF clindamycin HCl 300 mg capsule 300 mg PO Q6H 15 Days Qty: 60 1RF Rx Instructions: take probiotics OTC in between the doses of the antibiotics hydroxychloroquine [Plaquenil] 200 mg tablet 200 mg PO BID ropinirole 0.25 mg tablet 1 tab PO BEDTIME estradiol 0.01 % (0.1 mg/gram) cream 1 appl vaginal 3XW ketoconazole 2 % cream 1 appl topical BID Toviaz 8 mg tablet extended release 24 hr 1 tab PO DAILY (DME) pen needle, diabetic [BD Meghan 2nd Gen Pen Needle] 32 gauge x 5/32 needle MISCELLANEOUS DAILY Tresiba FlexTouch U-100 100 unit/mL (3 mL) insulin pen 6 unit subcut DAILY Jardiance 25 mg tablet 1 tab QAM Trulicity 3 mg/0.5 mL pen injector 0.5 ml subcut QWEEK ferrous sulfate 325 mg (65 mg iron) tablet 1 tab PO DAILY omeprazole 40 mg capsule,delayed release(DR/EC) 40 mg PO DAILY Qty: 30 0RF rosuvastatin [Crestor] 40 mg tablet 40 mg PO BEDTIME riboflavin (vitamin B2) 400 mg tablet 400 mg PO DAILY Qty: 30 0RF furosemide 40 mg tablet 40 mg PO DAILY 90 Days Qty: 90 0RF gabapentin 800 mg tablet 800 mg PO TID 30 Days Qty: 90 8RF magnesium 200 mg tablet 200 mg PO DAILY Qty: 30 0RF (DME) hospital bed Kit See Rx Instructions .Route Qty: 1 0RF Rx Instructions: As directed Myrbetriq 25 mg tablet extended release 24 hr 25 mg PO DAILY 30 Days Qty: 30 1RF Held Xarelto 20 mg tablet 20 mg PO QPM 30 Days Qty: 30 5RF Hold Instructions: Resume on 12/02/21. aspirin 81 mg tablet,delayed release (DR/EC) 1 tab PO DAILY Hold Instructions: Resume on 01/26/22. Hold aspirin and all NSAIDs including ibuprofen Motrin for 8 weeks Discontinued enoxaparin 100 mg/mL syringe 1 ml subcut Q12H amlodipine 10 mg tablet 1 tab PO DAILY atenolol 50 mg tablet 1 tab PO BID Discharge Orders: Discharge Order (Routine); Ordered 12/01/21 Ordered By: Zully Ayala Activity Restrictions/Additional Instructions: Next 8 weeks : avoid heavy lifting more than 5 lbs by both hands or 2 lb by 1 hand, avoid torso turning sharp bending or back lumbar spine flexing, avoid straining down and avoid constipation for the next 8 weeks. If constipated use otc laxatives such as Metamucil or Colace/ ducolax. Avoid NSAIDs for the next 8 weeks. For the next 16 days: Avoid shower or bathtub, sponge bath is okay. Continue antibiotics as prescribed. continue OTC probiotics in between the doses of the antibiotics .. Do not change your dressing, dressing change 7 days in the office.
[2021-12-01 11:22] LABS: Glucose, Whole Blood 143 mg/dL (60-115)
[2021-12-01 11:38] VITALS: BP 129/62; PULSE 58; RESP 16; TEMP 36.4; O2SAT 96
--- NOTE | 2021-12-01 14:30 | MHC.CM.PN ---
PATIENT IS DC TO HOME - SELF CARE PRIOR TO CASE MANAGEMENT ASSESSMENT. SPOUSE TO TRANSPORT.
--- NOTE | 2021-12-01 19:01 | HO.POSTANES ---
Post Anesthesia Evaluation Post Anesthesia Evaluation Vital Signs: Vital Signs Temp Pulse Resp BP Pulse Ox O2 Del Method 12/01/21 11:38 97.6 F 58 16 129/62 96 Room Air 12/01/21 08:58 95 Room Air 12/01/21 08:00 96.7 F L 60 14 148/65 H 92 Room Air Anesthesia: Monitored Mental Status: Awake Pain Control: Satisfactory Nausea/Vomiting: None Hydration: Adequate Anesthesia-Related Issues: No Anes. Related Issues
== END 2021-12-01 14:10 | disposition home or self-care (01) ==
LOC: HO.SSS 13:16 → HO.S3 18:13 → HO.SSS 18:51 → HO.S3 18:54
PROVIDERS: Anesthesiology; Physician Assistant Medical; PCP Internal Medicine; Visit Provider Hospitalist
PROC: (CPT 63685; principal; 2021-11-30 08:40)
DX: M96.1 Postlaminectomy syndrome, not elsewhere classified (principal); M47.22 Other spondylosis with radiculopathy, cervical region; M47.27 Other spondylosis with radiculopathy, lumbosacral region; M48.00 Spinal stenosis, site unspecified; M54.50 Low back pain, unspecified; M79.662 Pain in left lower leg; M79.661 Pain in right lower leg; R20.0 Anesthesia of skin; E11.42 Type 2 diabetes mellitus with diabetic polyneuropathy; I50.32 Chronic diastolic (congestive) heart failure; I11.0 Hypertensive heart disease with heart failure; M54.2 Cervicalgia; M79.602 Pain in left arm; M79.601 Pain in right arm; R53.1 Weakness; I48.0 Paroxysmal atrial fibrillation; Z86.73 Personal history of transient ischemic attack (TIA), and cerebral infarction without residual deficits; Z79.4 Long term (current) use of insulin; Z79.01 Long term (current) use of anticoagulants; Z79.899 Other long term (current) drug therapy; Z88.8 Allergy status to other drugs, medicaments and biological substances; Z91.81 History of falling
CPT/HCPCS: 63685; 63650 ×2; 36415; 70450; 80048; 82947; 85025; C1713; C1778; C1787; C1816; J2250; J2795; J3010; J3370

== ENCOUNTER → 2021-12-06 10:00 | Outpatient (BNVA) | payer MEDICARE, SELFPAY | PROVIDERS: PCP Internal Medicine; Visit Provider Anesthesiology | DX: M47.22 Other spondylosis with radiculopathy, cervical region (principal); M47.27 Other spondylosis with radiculopathy, lumbosacral region; M48.00 Spinal stenosis, site unspecified; E11.42 Type 2 diabetes mellitus with diabetic polyneuropathy | CPT/HCPCS: 99212 ==

== ENCOUNTER 2021-12-11 06:22 | Day surgery (SDC) | payer MEDICARE, SELFPAY ==
--- NOTE | ~2021-12-11 | FL_ITS ---
EXAMINATION: XR FLUOROSCOPY WITH IMAGES CLINICAL INFORMATION: Blood patch. COMPARISON: None. TECHNIQUE: Fluoroscopy performed by Dr. Kinsey. Fluoroscopy time: 0.2 minutes. Cumulative Dose: 8.22 mGy. DAP: 2.24 Gy-cm2. Images: 2. FL/FL guidance in OR FINDINGS/IMPRESSION: Limited frontal images of the thoracolumbar spine were obtained. Please refer to the procedure report for detailed findings.
[2021-12-11 06:50] VITALS: BMI 38.0
--- NOTE | 2021-12-11 07:36 | MHC.SHP ---
Pre-Procedural Eval Section A Date of Service: 12/11/21 The patient is an INPATIENT: No Changes since office visit: Yes Patient answered all questions The History & Physical has been completed within 30 days and I have reviewed it.: No Section B Chief Complaint: spondylosis Details of Present Illness: post dural puncture headache Relevant Family History (Specify if Yes): No Relevant Social History: None Present Medications: see Short Stay Collaborative assessment Medical History: No relevant PMH History of Previous Operations: Relevant previous surgery/procedure and date(s) (implant SCS) Allergies: Allergies Allergy/AdvReac Type Severity Reaction Status Date / Time morphine [Morphine] Allergy Severe ITCHING, Verified 12/06/21 10:20 hives cefdinir Allergy Intermediate hives Verified 12/06/21 10:20 sulfamethoxazole Allergy Intermediate RASH Verified 12/06/21 10:20 trimethoprim Allergy Intermediate RASH Verified 12/06/21 10:20 duloxetine AdvReac Severe altered Verified 12/06/21 10:20 behavior betina AdvReac Mild RUNNY NOSE Verified 12/06/21 10:20 mustard AdvReac Mild RUNNY NOSE Verified 12/06/21 10:20 potato [POTATO] AdvReac Mild ITCHY NOSE Verified 12/06/21 10:20 soybean AdvReac Mild RUNNY NOSE Verified 12/06/21 10:20 Review of Systems Sugical H&P ROS: Negative: Cardiovascular, Respiratory, Neurological, Psychiatric, Hem-Onc, Allergic/Immunologic, Gastrointestinal, Genitourinary, Musculoskeletal, Integumentary, Endocrine and Eyes/Ears/Nose/Throat and Yes, Specify: Constitution (OBESITY) Exam Surgical H&P Exam: Normal: HEENT, Normal: Heart, Normal: Lungs, Normal: Extremities, Normal: Skin and Normal: Neurological and Significant Findings: Abdomen (enlarged 2 to i/a and s/q fat) Plan Diagnosis/Plan: Unchanged I have reviewed the history and physical and performed a pertinent physical examination on my patient. No changes have occurred unless specified.
[2021-12-11 07:54] VITALS: BP 158/69; PULSE 67; RESP 18; TEMP 36.2; O2SAT 97
--- NOTE | 2021-12-11 08:33 | PM.OP ---
Brief Operative Note Date of Service: 12/11/21 Pre-op diagnosis: post-dural puncture headache Post-op diagnosis: same Procedure: epidural blood patch Implants: none Surgeon: Lio Kinsey MD Anesthesia: local Was an Flow Floor Attendant used for this Procedure?: No Estimated blood loss (mL): 12 Pathology: none sent Condition: stable Disposition: PACU
--- NOTE | 2021-12-11 08:34 | W.PM.OPN ---
Operative Note Operative Note Date of Service: 12/11/21 Narrative: EPIDURAL BLOOD PATCH THE PATIENT CAME TO THE OPERATING ROOM HE WAS POSITIONED PRONE ON THE TABLE [employer] MONITORS WERE APPLIED PATIENT WAS NOT SEDATED. ?SHE RECEIVED 900 MG OF CLINDAMYCIN- IV 20 MINUTES BEFORE THE PROCEDURE. HER LOWER BACK WAS PREPPED WITH CHLORAPREP AND DRAPED WITH FENESTRATED DRAPE.STERILELY DRAPED C-ARM WAS BROUGHT OVER THE OPERATING FIELD AND SQ PICTURE OF T12 AND L1 VERTEBRA WERE DEMONSTRATED ON THE SCREEN.? THE SKIN IN THE PROJECTION OF THE L1 VERTEBRA LEFT LAMINA WAS INFILTRATED WITH LIDOCAINE 1% 2 CC. TWENTY GAUGE 10 CM EPIDURAL NEEDLE WAS INSERTED INTO THE SKIN AND ADVANCED INTO THE EPIDURAL SPACE ON INTERMITTENT ANTERIOR POSTERIOR AND LATERAL VIEWS.? LOSS OF RESISTANCE TO AIR TECHNIQUE WAS USED TO LOCATE EPIDURAL SPACE.? WHEN LOSS OF RESISTANCE FELT AND NEEDLE WAS SEEN IN THE POSTERIOR EPIDURAL SPACE ON THE LATERAL VIEWS THE INJECTION OF THE CONTRAST WAS PERFORMED DEMONSTRATING POSTERIOR EPIDURAL SPREAD OF THE CONTRAST.? AT THE SAME TIME PATIENT'S RIGHT HAND WAS PREPPED WITH CHLORAPREP AND DRAPED WITH STERILE DRAPE, 18 GAUGE CATHETER WAS USED TO ACCESS CEPHALIC VEIN OF THE PATIENT AND ONE 20 CC CC SYRINGE WAS USED TO OBTAINED AUTOLOGOUS BLOOD FROM THE PATIENT. TOTAL OF 12 CC OF BLOOD WAS OBTAINED FROM THE PATIENT.? AFTER THAT THE INJECTION WAS PERFORMED INTO THE PATIENT'S EPIDURAL SPACE OF THE AUTOLOGOUS BLOOD.? THE NEEDLE WAS REMOVED STERILE DRESSING WAS APPLIED. THE PATIENT TOLERATED PROCEDURE WELL SHE WAS TAKING OUTSIDE OF THE OPERATING ROOM TO RECOVERY ROOM WHERE SHE RECOVERED UNEVENTFULLY.
[2021-12-11 08:35] VITALS: BP 160/72; PULSE 84; RESP 18; TEMP 36.6; O2SAT 95
== END 2021-12-11 09:04 | disposition home or self-care (01) ==
PROVIDERS: PCP Internal Medicine; Visit Provider Anesthesiology
PROC: 3E0R3GC Introduction of Other Therapeutic Substance into Spinal Canal, Percutaneous Approach (ICD-10-PCS; CPT 62273; principal; 2021-12-11 07:40)
DX: G97.1 Other reaction to spinal and lumbar puncture (principal); M47.27 Other spondylosis with radiculopathy, lumbosacral region; M48.00 Spinal stenosis, site unspecified; I11.0 Hypertensive heart disease with heart failure; I50.30 Unspecified diastolic (congestive) heart failure; I27.20 Pulmonary hypertension, unspecified; E11.42 Type 2 diabetes mellitus with diabetic polyneuropathy; E51.9 Thiamine deficiency, unspecified; I48.0 Paroxysmal atrial fibrillation; Z79.02 Long term (current) use of antithrombotics/antiplatelets; Z79.899 Other long term (current) drug therapy; Z88.2 Allergy status to sulfonamides; Z88.8 Allergy status to other drugs, medicaments and biological substances; Z87.891 Personal history of nicotine dependence
CPT/HCPCS: 62273; Q9967

== ENCOUNTER 2021-12-12 11:36 | Emergency (ER) | payer MEDICARE, SELFPAY ==
[2021-12-12 13:02] VITALS: BP 138/55; PULSE 70; RESP 18; TEMP 36.6; O2SAT 96; BMI 39.0
--- NOTE | 2021-12-12 13:24 | ED.GENADULT ---
HPI - General Adult General Chief complaint: General Medical Stated complaint: headache, body ache Time Seen by Provider: 12/12/21 13:24 Source: patient Mode of arrival: ambulatory Limitations: no limitations History of Present Illness HPI narrative: 71-year-old female who was sent to the emergency department by Dr. Kinsey for evaluation of headache after spinal cord stimulator placement 2 weeks prior. The patient has a history of chronic back pain with bilateral lower extremity numbness right greater than left the patient had a neurostimulator placed approximately 2 weeks prior. After the patient woke up from anesthesia she had a severe headache. She had a CT scan which was negative. Her doctor felt that the patient's headache was consistent with a spinal headache. The patient was advised to rest, increase her fluid intake intake caffeine. She states that her headache persisted. Yesterday she had a blood patch and this did not relieve her symptoms therefore she was referred to the emergency department for evaluation. The patient states that her headache is located throughout her entire head. She states that the headache is constant, sharp and 8/10 at its worst. She also states that her scalp is painful to the touch. She states that the headache is worse with standing with movement and does seem to be relieved if she lies down and rests. She denied any loss of bowel or bladder control. She denied fever, chills, rhinorrhea, sore throat, cough, chest pain, shortness of breath, dyspnea on exertion, frequency, urgency, dysuria, change in her bowel movements such as dark stools or bloody stools. She states that she does have nausea associated with her headache but no vomiting. She states that she did have Percocet after the procedure and she states that this did per some relief of her headaches. Related Data Home Medications Medication Instructions Recorded Confirmed hydroxychloroquine 200 mg tablet 200 mg PO BID 08/02/20 11/26/21 (Plaquenil) dulaglutide 3 mg/0.5 mL 0.5 ml subcut QWEEK 11/13/21 11/26/21 subcutaneous pen injector (Trulicity) empagliflozin 25 mg tablet 1 tab QAM 11/13/21 11/26/21 (Jardiance) estradiol 0.01% (0.1 mg/gram) 1 appl vaginal 3XW 11/13/21 11/26/21 vaginal cream ferrous sulfate 325 mg (65 mg 1 tab PO DAILY 11/13/21 11/26/21 iron) tablet fesoterodine 8 mg tablet,extended 1 tab PO DAILY 11/13/21 11/26/21 release 24 hr (Toviaz) insulin degludec 100 unit/mL (3 6 unit subcut DAILY 11/13/21 11/26/21 mL) subcutaneous pen (Tresiba FlexTouch U-100 insulin) ketoconazole 2 % topical cream 1 appl topical BID 11/13/21 11/26/21 pen needle, diabetic 32 gauge x 11/13/21 11/22/2132 (BD Meghan 2nd Gen Pen Needle) ropinirole 0.25 mg tablet 1 tab PO BEDTIME 11/13/21 11/26/21 rosuvastatin 40 mg tablet (Crestor) 40 mg PO BEDTIME 11/26/21 11/26/21 aspirin 81 mg tablet,delayed 1 tab PO DAILY 11/30/21 11/30/21 release Previous Rx's Medication Instructions Recorded mirabegron 25 mg tablet,extended 25 mg PO DAILY 30 days #30 tabs 04/16/21 release 24 hr (Myrbetriq) fluticasone propionate 50 1 spray intranasal DAILY 90 days 06/04/21 mcg/actuation nasal #16 grams spray,suspension riboflavin (vitamin B2) 400 mg 400 mg PO DAILY #30 tabs 06/22/21 tablet cholecalciferol (vitamin D3) 50 2,000 unit PO DAILY 90 days #90 06/29/21 mcg (2,000 unit) tablet tabs escitalopram oxalate 10 mg tablet 10 mg PO DAILY 90 days #90 tabs 06/29/21 (Lexapro) sennosides 8.6 mg tablet (senna) 17.2 mg PO BEDTIME 90 days #180 06/29/21 tabs trazodone 100 mg tablet 100 mg PO BEDTIME PRN sleep 90 06/29/21 days #90 tabs cyanocobalamin (vitamin B-12) 1,000 mcg PO DAILY 90 days #90 tabs 07/31/21 1,000 mcg tablet docusate sodium 100 mg capsule 100 mg PO BID PRN constipation 90 07/31/21 (DOK) days #180 caps metformin 1,000 mg tablet 1,000 mg PO BID 90 days #180 tabs 07/31/21 thiamine HCl (vitamin B1) 100 mg 100 mg PO DAILY 90 days #90 tabs 07/31/21 tablet baclofen 10 mg tablet 5 mg PO TID PRN muscle pain 90 08/29/21 days #135 tabs fenofibrate 160 mg tablet 160 mg PO DAILY 90 days #90 tabs 09/28/21 omeprazole 40 mg capsule,delayed 40 mg PO DAILY #30 caps 11/03/21 release losartan 25 mg tablet 25 mg PO DAILY 90 days #90 tabs 11/15/21 loratadine 10 mg tablet 10 mg PO DAILY 90 days #90 tabs 11/19/21 rivaroxaban 20 mg tablet (Xarelto) 20 mg PO QPM 30 days #30 tabs 11/21/21 furosemide 40 mg tablet 40 mg PO DAILY 90 days #90 tabs 11/22/21 gabapentin 800 mg tablet 800 mg PO TID 30 days #90 tabs 11/22/21 hospital bed #1 ea 11/22/21 magnesium 200 mg tablet 200 mg PO DAILY #30 tabs 11/22/21 clindamycin HCl 300 mg capsule 300 mg PO Q6H 15 days #60 caps 11/30/21 oxycodone 5 mg tablet 5 mg PO Q6H PRN pain 30 days #120 12/11/21 tabs ondansetron 4 mg disintegrating 4 mg PO Q6-8H PRN nausea and 12/12/21 tablet vomiting #14 tabs oxycodone 5 mg tablet 5 mg PO Q4H PRN pain #14 tabs 12/12/21 Allergies Allergy/AdvReac Type Severity Reaction Status Date / Time morphine [Morphine] Allergy Severe ITCHING, Verified 12/12/21 13:01 hives cefdinir Allergy Intermediate hives Verified 12/12/21 13:01 sulfamethoxazole Allergy Intermediate RASH Verified 12/12/21 13:01 trimethoprim Allergy Intermediate RASH Verified 12/12/21 13:01 duloxetine AdvReac Severe altered Verified 12/12/21 13:01 behavior betina AdvReac Mild RUNNY NOSE Verified 12/12/21 13:01 mustard AdvReac Mild RUNNY NOSE Verified 12/06/21 10:20 potato [POTATO] AdvReac Mild ITCHY NOSE Verified 12/06/21 10:20 soybean AdvReac Mild RUNNY NOSE Verified 12/12/21 13:01 Review of Systems Review of Systems: Yes all other systems are reviewed and are negative PMFSH Past Medical History [facility] Narrative: Social history: The patient is , her is here in the emergency department with her. The patient denies tobacco, alcohol and drug use. Medical History Acute upper GI bleed Anemia Atherosclerotic cardiovascular disease Chronic heart failure with preserved ejection fraction (HFpEF) CVA (cerebral vascular accident) Diabetes mellitus Diabetes type 2, uncontrolled Diabetic neuropathy Diabetic polyneuropathy Dizziness Dyslipidemia Essential hypertension Falls Hand pain Head injury Headache Hospital discharge follow-up Iron deficiency anemia Ischemic stroke Left hand pain Left hip pain Left knee pain Left shoulder pain Lumbar degenerative disc disease Obesity due to excess calories Other and unspecified hyperlipidemia Paroxysmal atrial fibrillation PONV (postoperative nausea and vomiting) Proteinuria Pulmonary hypertension Pure hypercholesterolemia Thiamine deficiency Thrombus 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 Urge urinary incontinence Surgical History H/O colonoscopy History of Mohs micrographic surgery for skin cancer History of partial hysterectomy Hx of cardiac cath Hx of cervical spine surgery Family History Family History Father Rectal cancer Hypertension Arthritis of knee CVD (cardiovascular disease) Mother Hypertension CVD (cardiovascular disease) Myocardial infarction Diabetes Social History Social History Household Members: Spouse Housing: House Are you a primary intensive care ambulance paramedic to a significant other at home: No Do you presently have visiting nurse or other home services: No Alcohol intake: never Patient Tobacco Use Status: Former Tobacco user Quit Date: 1993 Tobacco use type: Cigarette e-Cigarette/Vaping Use: Never Used Second Hand Smoke Exposure: No Advance Directives: Yes Advance Directives on File: Yes Advance Directives Date on File: 07/17/20 service: No Current occupational status: retired Current occupation: Lt handed Cognitive needs: Yes (scodor/walker) Hearing needs: No Vision needs: Yes (glasses) Physical Exam ED Vital Signs: Vital Signs - 24 hr 12/12/21 13:02 12/12/21 16:53 Temperature 97.8 F 98.1 F Pulse Rate 70 76 Respiratory Rate 18 20 Blood Pressure 138/55 L 183/72 H Pulse Oximetry 96 96 Oxygen Delivery Method Room Air Room Air BMI result Body Mass Index 39.0 Const Other: Awake, alert, female place and, very HENMT Head: Yes normal to inspection, Yes normocephalic and Yes atraumatic Ears: external ears normal General nose exam: Normal external nose present Face and sinus: Yes normal facial exam Mouth: Normal oral and palatal mucosa present Throat: Yes posterior oropharynx normal Eyes General: appearance normal, both eyes and all related structures Pupils: Equal, round and reactive pupils present Neck Neck: Yes normal visual inspection, Yes no lymphadenopathy, Yes trachea midline and Yes supple Chest Chest palpation & inspection: normal inspection of the chest and normal palpation of entire chest wall Resp Effort & Inspection: normal respiratory effort and able to speak in complete sentences Auscultation: clear to auscultation bilaterally Cardio Rate: regular rate Rhythm: regular rhythm Heart sounds: S1 normal heart sound present, S2 normal heart sound present and no murmurs GI Inspection: Yes normal to inspection Palpation (GI): Soft to palpation, nontender and no guarding Auscultation: normal bowel sounds General: Yes no CVA tenderness Back/Spine/Pelvis Back: no CVA tenderness Skin General skin exam: no rashes or lesions noted Neuro Cranial nerves: Yes CN's II-XII intact bilaterally and Yes Equal, round and reactive pupils present Cognition (Neuro): normal cognition Motor exam (neuro): 5/5 motor strength present throughout Extrem General: Yes normal to inspection Psych Appearance: grossly normal Speech and movement: Normal speech and movement present Affect: normal affect Attitude: cooperative Thought process: Normal thought process present Thought content: Normal thought content present Course Course Course Narrative: 71-year-old female who presents emergency department for evaluation of persistent headache that occurred after she had a spinal cord stimulator inserted 2 weeks prior. Patient's vital signs did reveal an elevated blood pressure of 183/72 otherwise were unremarkable. The patient's physical examination was unremarkable with a normal neurologic exam. I did order laboratory evaluation to include CBC, CMP, PT/INR, PTT, troponin, ESR, CRP, blood cultures x2. Patient was ordered to get Toradol 30 mg IV and Zofran 4 mg IV. She was also treated with normal saline x1 L. 1812: Laboratory evaluation: WBC normal 6600, platelet count elevated 444,000. CRP was normal at 0.23. ESR was only slightly elevated at 26. COVID-19 was negative. The patient did get some improvement with the above treatment. She was given a 2nd dose of Toradol 15 mg IV and Zofran 4 mg IV. At this time I do not think the patient has an infectious process, subarachnoid hemorrhage, spinal/paraspinal infection as the cause for headache. Patient's headache is more consistent with a spinal headache. I did discuss this with her. She was advised to continue hydrating and taking caffeine and resting. She was advised to take Tylenol for pain not relieved by Tylenol she was prescribed oxycodone. She is also prescribe Zofran ODT for her nausea. Medical Decision Making Lab Data Result diagrams: 12/12/21 13:45 12/12/21 13:45 Labs: Lab Results 12/12/21 12/12/21 12/12/21 Range/Units 13:45 13:45 13:45 WBC 6.6 (4.8-10.8) X10*3/uL RBC 4.22 (4.20-5.50) X10*6/uL Hgb 11.9 L (12.0-16.0) g/dl Hct 36.3 L (37.0-47.0) % MCV 86.0 (80.0-98.0) fL MCH 28.2 (27.0-33.0) pg MCHC 32.8 (31.0-35.0) g/dl RDW 16.3 H (11.0-16.0) % Plt Count 444 H D (160-400) X10*3/uL MPV 8.7 L (9.4-12.3) fL Immature Gran % (Auto) 0.3 (0.0-0.4) % Neut % (Auto) 57.6 (45-73) % Lymph % (Auto) 26.5 (20-40) % [place] % (Auto) 10.7 (2-11) % Eos % (Auto) 3.8 (0-4) % Baso % (Auto) 1.1 (0-2) % Lymph # (Auto) 1.8 (1.2-4.9) X10*3/uL [place] # (Auto) 0.7 (0.1-1.2) X10*3/uL Eos # (Auto) 0.3 (0.0-0.4) X10*3/uL Baso # (Auto) 0.1 (0.0-0.2) X10*3/uL Abs Immat Gran (auto) 0.02 (0.00-0.03) X10*3/uL Absolute Neuts (auto) 3.8 (2.0-8.3) x10*3/uL Absolute Nucleated RBC 0.000 (0.0-0.012) X10*3/uL Nucleated RBC % (auto) 0.0 (0.0-0.2) /100WBC ESR (0-20) MM/HR PT (10.0-13.1) SEC INR (0.9-1.1) APTT (26.0-36.4) SEC Sodium 134 L (135-145) mmol/L Potassium 4.2 (3.3-5.1) mmol/L Chloride 93 L (96-108) mmol/L Carbon Dioxide 27 (22-29) mmol/L Anion Gap 18 (12-20) BUN 27 H (9-16) mg/dL Creatinine 1.12 (0.5-1.4) mg/dL Estim Creat Clear Calc 50.4 Estimated GFR 48 Random Glucose 106 (60-115) mg/dL Lactic Acid 1.8 (0.5-2.0) mmol/L Calcium 9.8 (8.4-10.2) mg/dL Total Bilirubin 0.4 (0.0-1.0) mg/dL AST 34 H D (5-31) U/L ALT 19 (0-31) U/L Alkaline Phosphatase 43 D (39-117) U/L C-Reactive Protein 0.23 (< or = 0.50) mg/dL Total Protein 7.3 (6.5-8.0) g/dL Albumin 4.4 (3.5-5.0) g/dL Lipase 53 (8-78) U/L COVID-19 ([facility]) (Negative) COVID-19 Clin Com 12/12/21 12/12/21 12/12/21 Range/Units 13:45 13:45 13:45 WBC (4.8-10.8) X10*3/uL RBC (4.20-5.50) X10*6/uL Hgb (12.0-16.0) g/dl Hct (37.0-47.0) % MCV (80.0-98.0) fL MCH (27.0-33.0) pg MCHC (31.0-35.0) g/dl RDW (11.0-16.0) % Plt Count (160-400) X10*3/uL MPV (9.4-12.3) fL Immature Gran % (Auto) (0.0-0.4) % Neut % (Auto) (45-73) % Lymph % (Auto) (20-40) % [place] % (Auto) (2-11) % Eos % (Auto) (0-4) % Baso % (Auto) (0-2) % Lymph # (Auto) (1.2-4.9) X10*3/uL [place] # (Auto) (0.1-1.2) X10*3/uL Eos # (Auto) (0.0-0.4) X10*3/uL Baso # (Auto) (0.0-0.2) X10*3/uL Abs Immat Gran (auto) (0.00-0.03) X10*3/uL Absolute Neuts (auto) (2.0-8.3) x10*3/uL Absolute Nucleated RBC (0.0-0.012) X10*3/uL Nucleated RBC % (auto) (0.0-0.2) /100WBC ESR 26 H (0-20) MM/HR PT 10.2 (10.0-13.1) SEC INR 0.9 (0.9-1.1) APTT 36.5 H (26.0-36.4) SEC Sodium (135-145) mmol/L Potassium (3.3-5.1) mmol/L Chloride (96-108) mmol/L Carbon Dioxide (22-29) mmol/L Anion Gap (12-20) BUN (9-16) mg/dL Creatinine (0.5-1.4) mg/dL Estim Creat Clear Calc Estimated GFR Random Glucose (60-115) mg/dL Lactic Acid (0.5-2.0) mmol/L Calcium (8.4-10.2) mg/dL Total Bilirubin (0.0-1.0) mg/dL AST (5-31) U/L ALT (0-31) U/L Alkaline Phosphatase (39-117) U/L C-Reactive Protein (< or = 0.50) mg/dL Total Protein (6.5-8.0) g/dL Albumin (3.5-5.0) g/dL Lipase (8-78) U/L COVID-19 ([facility]) Negative (Negative) COVID-19 Clin Com See Note Discharge Plan Discharge Clinical Impression: Spinal headache, Nausea Patient Disposition: Home, Self-Care Additional Instructions: Your inflammatory markers were normal (WBC, sedimentation rate and CRP). Your treated with Toradol IV and Zofran IV as well as normal saline x1 L IV. At this time, I believe that your headache is consistent with a spinal headache. Take Tylenol (acetaminophen) 500 mg pills, 2 pills every 6 hours as needed for pain. For pain not relieved by ibuprofen or Tylenol take oxycodone 5 mg pills, 1 pill every 4 hours as needed for pain. Do not drive or work while taking this medication since they can cause sleepiness. Oxycodone is a narcotic medication that can be addicting. If you are concerned about addiction you can ask the pharmacist for less pills or do not get this prescription filled. Take Zofran ODT 4 mg pills, 1 pill dissolved in your mouth every 8 hours as needed for nausea and vomiting. Follow-up with your doctor in 2 days. Please return to the emergency department if your symptoms get worse or if you develop any symptoms that are concerning to you. Prescriptions: New ondansetron 4 mg tablet,disintegrating 4 mg PO Q6-8H PRN (Reason: nausea and vomiting) Qty: 14 0RF oxycodone 5 mg tablet 5 mg PO Q4H PRN (Reason: pain) Qty: 14 0RF Rx Instructions: Patient may request partial fill; Partial Fill upon patient request. No Action fluticasone propionate 50 mcg/actuation spray,suspension 1 spray intranasal DAILY 90 Days Qty: 16 3RF Rx Instructions: administer into each nostril trazodone 100 mg tablet 100 mg PO BEDTIME PRN (Reason: sleep) 90 Days Qty: 90 1RF escitalopram oxalate [Lexapro] 10 mg tablet 10 mg PO DAILY 90 Days Qty: 90 1RF sennosides [senna] 8.6 mg tablet 17.2 mg PO BEDTIME 90 Days Qty: 180 3RF cholecalciferol (vitamin D3) 50 mcg (2,000 unit) tablet 2,000 unit PO DAILY 90 Days Qty: 90 3RF metformin 1,000 mg tablet 1,000 mg PO BID 90 Days Qty: 180 3RF thiamine HCl (vitamin B1) 100 mg tablet 100 mg PO DAILY 90 Days Qty: 90 1RF docusate sodium [DOK] 100 mg capsule 100 mg PO BID PRN (Reason: constipation) 90 Days Qty: 180 2RF cyanocobalamin (vitamin B-12) 1,000 mcg tablet 1,000 mcg PO DAILY 90 Days Qty: 90 3RF baclofen 10 mg tablet 5 mg PO TID PRN (Reason: muscle pain) 90 Days Qty: 135 0RF fenofibrate 160 mg tablet 160 mg PO DAILY 90 Days Qty: 90 3RF losartan 25 mg tablet 25 mg PO DAILY 90 Days Qty: 90 0RF loratadine 10 mg tablet 10 mg PO DAILY 90 Days Qty: 90 0RF Xarelto 20 mg tablet 20 mg PO QPM 30 Days Qty: 30 5RF Hold Instructions: Resume on 12/02/21. clindamycin HCl 300 mg capsule 300 mg PO Q6H 15 Days Qty: 60 1RF Rx Instructions: take probiotics OTC in between the doses of the antibiotics oxycodone 5 mg tablet 5 mg PO Q6H PRN (Reason: pain) 30 Days Qty: 120 0RF hydroxychloroquine [Plaquenil] 200 mg tablet 200 mg PO BID ropinirole 0.25 mg tablet 1 tab PO BEDTIME estradiol 0.01 % (0.1 mg/gram) cream 1 appl vaginal 3XW ketoconazole 2 % cream 1 appl topical BID Toviaz 8 mg tablet extended release 24 hr 1 tab PO DAILY (DME) pen needle, diabetic [BD Meghan 2nd Gen Pen Needle] 32 gauge x 5/32 needle MISCELLANEOUS DAILY Tresiba FlexTouch U-100 100 unit/mL (3 mL) insulin pen 6 unit subcut DAILY Jardiance 25 mg tablet 1 tab QAM Trulicity 3 mg/0.5 mL pen injector 0.5 ml subcut QWEEK ferrous sulfate 325 mg (65 mg iron) tablet 1 tab PO DAILY omeprazole 40 mg capsule,delayed release(DR/EC) 40 mg PO DAILY Qty: 30 0RF rosuvastatin [Crestor] 40 mg tablet 40 mg PO BEDTIME aspirin 81 mg tablet,delayed release (DR/EC) 1 tab PO DAILY Hold Instructions: Resume on 01/26/22. Hold aspirin and all NSAIDs including ibuprofen Motrin for 8 weeks riboflavin (vitamin B2) 400 mg tablet 400 mg PO DAILY Qty: 30 0RF furosemide 40 mg tablet 40 mg PO DAILY 90 Days Qty: 90 0RF gabapentin 800 mg tablet 800 mg PO TID 30 Days Qty: 90 8RF magnesium 200 mg tablet 200 mg PO DAILY Qty: 30 0RF (DME) hospital bed Kit See Rx Instructions .Route Qty: 1 0RF Rx Instructions: As directed Myrbetriq 25 mg tablet extended release 24 hr 25 mg PO DAILY 30 Days Qty: 30 1RF
[2021-12-12 13:56] LABS: MANUAL DIFF FLAG NO
[2021-12-12 14:01] LABS: Basophils Absolute Auto 0.1 X10*3/uL (0.0-0.2); Basophils Percent Auto 1.1 % (0-2); Eosinophils Absolute Auto 0.3 X10*3/uL (0.0-0.4); Eosinophils Percent Auto 3.8 % (0-4); Hematocrit 36.3 % (37.0-47.0); Hemoglobin 11.9 g/dl (12.0-16.0); Imm Gran Abs Auto 0.02 X10*3/uL (0.00-0.03); Imm Gran Pct Auto 0.3 % (0.0-0.4); Lymphocytes Absolute Auto 1.8 X10*3/uL (1.2-4.9); Lymphocytes Percent Auto 26.5 % (20-40); Mean Corpuscular HGB Conc 32.8 g/dl (31.0-35.0); Mean Corpuscular Hemoglobin 28.2 pg (27.0-33.0); Mean Platelet Volume 8.7 fL (9.4-12.3); Monocytes Absolute Auto 0.7 X10*3/uL (0.1-1.2); Monocytes Percent Auto 10.7 % (2-11); Neutrophils Absolute Auto 3.8 x10*3/uL (2.0-8.3); Neutrophils Percent Auto 57.6 % (45-73); Platelet Count 444 X10*3/uL (160-400); Red Blood Count 4.22 X10*6/uL (4.20-5.50); Red Cell Distribution Width 16.3 % (11.0-16.0); White Blood Count 6.6 X10*3/uL (4.8-10.8)
[2021-12-12 14:04] LABS: INTERNATIONAL NORM RATIO 0.9 (0.9-1.1); Prothrombin Time 10.2 SEC (10.0-13.1)
[2021-12-12 14:07] LABS: Partial Thromboplastin Time 36.5 SEC (26.0-36.4)
[2021-12-12 14:09] LABS: COVID-19 Test Negative (Negative)
[2021-12-12] MEDS: Ketorolac Tromethamine 15 MG/ML VIAL IVPUSH ×2 (14:14→18:28)
[2021-12-12] MEDS: ondansetron HCL 4 MG/2 ML VIAL IVPUSH ×2 (14:14→18:29)
[2021-12-12 14:15] LABS: Lactic Acid 1.8 mmol/L (0.5-2.0)
[2021-12-12] MEDS: 0.9 % Sodium Chloride 1,000 ML 999 ML IV (14:15)
[2021-12-12 14:20] LABS: Alanine Aminotransferase 19 U/L (0-31); Albumin Level 4.4 g/dL (3.5-5.0); Alkaline Phosphatase 43 U/L (39-117); Anion Gap 18 (12-20); Aspartate Amino Transferase 34 U/L (5-31); Bilirubin Total 0.4 mg/dL (0.0-1.0); Blood Urea Nitrogen 27 mg/dL (9-16); C Reactive Protein 0.23 mg/dL (< or = 0.50); Calcium 9.8 mg/dL (8.4-10.2); Carbon Dioxide 27 mmol/L (22-29); Chloride 93 mmol/L (96-108); Creatinine Clr Calc Pharmacy 50.4; Estimated Glomerular Filt Rate 48; Glucose Random 106 mg/dL (60-115); Lipase 53 U/L (8-78); Potassium 4.2 mmol/L (3.3-5.1); Sodium 134 mmol/L (135-145); Total Protein 7.3 g/dL (6.5-8.0)
[2021-12-12 14:40] LABS: Erythrocyte Sedimentation Rate 26 MM/HR (0-20)
[2021-12-12 16:53] VITALS: BP 183/72; PULSE 76; RESP 20; TEMP 36.7; O2SAT 96
== END 2021-12-12 18:37 | disposition home or self-care (01) ==
PROVIDERS: Emergency Provider Emergency Medicine Emergency Medical Services; PCP Internal Medicine
DX: G44.209 Tension-type headache, unspecified, not intractable (principal); M79.10 Myalgia, unspecified site; R11.0 Nausea; Z20.822 Contact with and (suspected) exposure to COVID-19; Z79.899 Other long term (current) drug therapy; Z87.891 Personal history of nicotine dependence
CPT/HCPCS: 36415; 80053; 83605; 83690; 85025; 85610; 85652; 85730; 86140; 87040; 87635; 96361; 96374; 96375; 96376; 99284; J1885; J2405

== ENCOUNTER → 2021-12-13 10:02 | Outpatient (BNVA) | payer MEDICARE, SELFPAY | PROVIDERS: PCP Internal Medicine; Visit Provider Anesthesiology | DX: M47.22 Other spondylosis with radiculopathy, cervical region (principal); M47.27 Other spondylosis with radiculopathy, lumbosacral region; M48.00 Spinal stenosis, site unspecified; E11.42 Type 2 diabetes mellitus with diabetic polyneuropathy; Z96.89 Presence of other specified functional implants; Z79.01 Long term (current) use of anticoagulants | CPT/HCPCS: 99212 ==

== ENCOUNTER → 2021-12-19 11:23 | Outpatient (BNVA) | payer MEDICARE, SELFPAY | PROVIDERS: PCP Internal Medicine; Visit Provider Anesthesiology | DX: M47.22 Other spondylosis with radiculopathy, cervical region (principal); M47.27 Other spondylosis with radiculopathy, lumbosacral region; M48.00 Spinal stenosis, site unspecified; E11.42 Type 2 diabetes mellitus with diabetic polyneuropathy; G97.1 Other reaction to spinal and lumbar puncture; Z98.890 Other specified postprocedural states | CPT/HCPCS: 99212 ==

== ENCOUNTER 2021-12-28 16:06 | Outpatient (REF) | payer MEDICARE, SELFPAY ==
--- NOTE | ~2021-12-28 | MR_ITS ---
MR THORACIC SPINE WITHOUT CONTRAST CLINICAL INFORMATION: Back pain since neurostimulator 11/30/2021. Thoracic spine MRI 02/23/2014. COMPARISON: Blood patch radiographs 12/11/2021 and fluoroscopic guidance radiographs 11/30/2021. Thoracic spine CT 11/13/2021. TECHNIQUE: MRI of the thoracic spine was obtained using routine sequences without contrast. FINDINGS: There are 12 rib-bearing thoracic type vertebral bodies. There is artifact from the patient's spinal cord stimulator array and leads at and below the T7 level. Artifact results in nondiagnostic assessment of the lower thoracic spinal cord. Electrode array placement and lead placement would be better assessed with CT and cannot be diagnostically evaluated with this MRI. There is no bone marrow edema. There are no acute fractures. There are large multilevel endplate osteophytes throughout the thoracic spine compatible with diffuse idiopathic skeletal hyperostosis. Vertebral body heights are maintained. There is mild to moderate disc volume loss at all thoracic levels. Ossification of the posterior longitudinal ligament is partially imaged within the lower cervical spine resulting in central canal stenosis and mass effect on the cervical spinal cord at C6-C7. At T1-T2, central disc protrusion and ligamentum flavum thickening result in similar severe central canal stenosis and mass effect on the cord. Probable cord signal abnormality at this level is unchanged. At T2-T3 there is a small posterior left paramedian disc protrusion resulting in mild narrowing of the central canal. There is moderate neural foraminal encroachment bilaterally. Findings unchanged At T3-T4 opacification of the ligamentum flavum and a small annular disc bulge results in moderate central canal stenosis and slight flattening of the ventral cord. Suspect severe right-sided neural foraminal stenosis. Moderate left foraminal stenosis. Findings unchanged. At T4-T5 a small central disc protrusion flattens the ventral cord, slightly progressed and mildly narrows the central canal. No foraminal stenosis. At T5-T6 there is a posterior disc protrusion that flattens the ventral cord without significant central canal stenosis. Findings unchanged. At T6-T7 no significant disc herniation. No central canal stenosis. At T7-T8 there is a large posterior left paramedian disc osteophyte protrusion (confirmed to be partially osteophytic on prior CT imaging) that that results in significant mass effect on the left cord and effaces the left lateral recess. These findings are unchanged. The lower thoracic levels are not well assessed due to artifact from the device discussed above. At L1-L2 there is a right paracentral/right foraminal disc protrusion resulting in severe right foraminal stenosis. MR/MR thoracic spine wo con IMPRESSION: - There is artifact from the patient's spinal cord stimulator array and leads at and below the T7 level. Artifact results in nondiagnostic assessment of the lower thoracic spinal cord. Electrode array placement and lead placement would be better assessed with CT and cannot be diagnostically evaluated with this MRI. - Fairly similar extensive spondylitic changes throughout the thoracic spine including stable severe central canal stenosis at T1-T2 where there is unchanged compression of the thoracic cord and thoracic cord signal change. At T7-T8, a large left paramedian disc osteophyte protrusion continues to result in significant mass effect on the left cord which is unchanged. Additional degenerative findings as discussed in detail above. Lower thoracic spine not diagnostically assessed due to artifact. - There is extensive diffuse idiopathic skeletal hyperostosis throughout the thoracic spine. - Ossification of the posterior longitudinal ligament is partially imaged within the lower cervical spine resulting in central canal stenosis and mass effect on the cervical spinal cord at C6-C7.
== END 2021-12-28 16:07 | disposition home or self-care (01) ==
LOC: HO.MRI 16:06
PROVIDERS: Visit Provider Anesthesiology
DX: G97.1 Other reaction to spinal and lumbar puncture (principal); Z96.89 Presence of other specified functional implants
CPT/HCPCS: 72146

== ENCOUNTER → 2022-01-09 14:36 | Outpatient (BNVA) | payer MEDICARE, SELFPAY | PROVIDERS: PCP Internal Medicine; Visit Provider Anesthesiology | DX: M47.22 Other spondylosis with radiculopathy, cervical region (principal); M47.27 Other spondylosis with radiculopathy, lumbosacral region; M48.00 Spinal stenosis, site unspecified; S12.9XXA Fracture of neck, unspecified, initial encounter; E11.42 Type 2 diabetes mellitus with diabetic polyneuropathy; Z96.89 Presence of other specified functional implants; Z79.899 Other long term (current) drug therapy; X58.XXXA Exposure to other specified factors, initial encounter; Y93.9 Activity, unspecified; Y92.9 Unspecified place or not applicable; Y99.9 Unspecified external cause status | CPT/HCPCS: 99212 ==

== ENCOUNTER 2022-01-22 09:24 | Outpatient (REF) | payer MEDICARE, SELFPAY ==
--- NOTE | ~2022-01-22 | CT_ITS ---
EXAMINATION: CT CERVICAL SPINE WITHOUT CONTRAST CLINICAL INFORMATION: Spondylosis without myelopathy. COMPARISON: CT cervical spine 11/14/2019. TECHNIQUE: [employer] Teacher images were obtained. CT imaging of the cervical spine was performed without and with contrast. Daily was reformatted into multiplanar images at the acquisition workstation. This CT examination was performed using dose optimization techniques as appropriate, variously including the following: *Automated exposure control *Adjustment of mA and/or kV according to patient size (this includes techniques or standardized protocols for targeted exams where dose is matched to indication/reason for exam; i.e. extremities or head) *Use of iterative reconstruction technique DLP: 460 mGy-cm FINDINGS: There are chronic postoperative changes of a multilevel laminectomy. Alignment is normal. Vertebral heights are preserved. No acute fracture. No abnormal prevertebral soft tissue swelling. There is ossification of posterior longitudinal ligament. Relatively advanced degenerative arthrosis of the atlantodental joint. Canal patency is not well assessed on this examination due to inherent limitations of CT without intrathecal contrast. There is at least moderate canal stenosis at the level of C6-C7 and T1-T2. Soft tissues of the neck including the thyroid gland are normal. Heavily calcified atheromatous plaque involves both carotid bifurcations. Visualized lung apices are clear. CT/CT cervical spine wo IV con IMPRESSION: There are is ossification of the posterior longitudinal ligament. Chronic changes related to a multilevel laminectomy extending from C3 to C6. There is at least moderate canal stenosis at levels of C6-C7 and T1-T2. If there are clinical symptoms of compressive myelopathy then a dedicated cervical spine MRI can be obtained for anatomic characterization of the cord and canal. 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 No evidence of acute fracture. Fleischner guidelines were followed.
== END 2022-01-22 09:25 | disposition home or self-care (01) ==
LOC: HO.CT 09:24
PROVIDERS: Visit Provider Anesthesiology
DX: M47.22 Other spondylosis with radiculopathy, cervical region (principal); M47.812 Spondylosis without myelopathy or radiculopathy, cervical region; S12.9XXA Fracture of neck, unspecified, initial encounter; Z96.89 Presence of other specified functional implants
CPT/HCPCS: 72125

== ENCOUNTER → 2022-01-28 12:03 | Outpatient (BNVA) | payer MEDICARE, SELFPAY | PROVIDERS: PCP Internal Medicine; Visit Provider Anesthesiology | DX: M47.22 Other spondylosis with radiculopathy, cervical region (principal); M47.27 Other spondylosis with radiculopathy, lumbosacral region; M48.00 Spinal stenosis, site unspecified; E11.42 Type 2 diabetes mellitus with diabetic polyneuropathy; Z96.89 Presence of other specified functional implants; M47.812 Spondylosis without myelopathy or radiculopathy, cervical region | CPT/HCPCS: Q3014 ==

== ENCOUNTER 2022-02-06 08:25 | Emergency (ER) | payer MEDICARE, SELFPAY ==
--- NOTE | ~2022-02-06 | XR_ITS ---
EXAMINATION: XR CHEST CLINICAL INFORMATION: Palpitations COMPARISON: Chest radiographs 11/27/2021, 11/03/2021 TECHNIQUE: 2 views of the chest were obtained. FINDINGS: The lungs are clear. The heart is normal in size. The vascularity is normal. There is no vascular congestion, infiltrate, or pleural effusion. The costophrenic sulci are clear. The hilar and mediastinal contours are normal. There are multilevel degenerative changes thoracic spine. Spinal stimulator electrodes are demonstrated posterior spinal canal to level of mid thoracic spine. XR/XR chest 2V IMPRESSION: -No vascular congestion, infiltrate, or effusion. -Spinal stimulator leads present mid thoracic region.
--- NOTE | 2022-02-06 08:30 | ECG_ITS ---
Test Reason : afib Blood Pressure : / mmHG Vent. Rate : 086 BPM Atrial Rate : 086 BPM P-R Int : 168 ms QRS Dur : 102 ms QT Int : 376 ms P-R-T Axes : 044 227 035 degrees QTc Int : 449 ms Normal sinus rhythm Right superior axis deviation Inferior infarct , age undetermined Abnormal ECG When compared with ECG of 12-NOV-2021 20:10, IA interval has decreased Nonspecific T wave abnormality has replaced inverted T waves in Inferior leads Referred By: Generic ED Physician Electronically Signed By:EMILY SILVA
[2022-02-06 08:32] VITALS: BP 157/74; PULSE 86; RESP 16; TEMP 36.5; O2SAT 95; BMI 37.2
--- NOTE | 2022-02-06 09:03 | ED.ARRPALP ---
HPI - Arrhythmia/Palpitations General Chief Complaint: Arrhythmia/Palpitations Stated Complaint: afib? Time Seen by Provider: 02/06/22 08:45 Source: patient Mode of arrival: ambulatory Limitations: no limitations History of Present Illness HPI narrative: Patient presents emergency department for evaluation of pounding sensation to chest. She reports for the past 2 days she felt as though she was in atrial fibrillation due to the pounding sensation she was experiencing. Today she felt dizzy she should come to the emergency department for evaluation of this. At the time of examination pounding sensation is not present, but she does report that she is having left anterior chest pain that began upon arrival to the emergency department. Reports an associated headache without dizziness, lightheadedness, vision changes, neck pain, neck stiffness. Denies shortness of breath, difficulty breathing, nausea, vomiting, abdominal pain, dysuria, weakness. Related Data Home Medications Medication Instructions Recorded Confirmed hydroxychloroquine 200 mg tablet 200 mg PO BID 08/02/20 01/22/22 (Plaquenil) dulaglutide 3 mg/0.5 mL 0.5 ml subcut QWEEK 11/13/21 01/22/22 subcutaneous pen injector (Trulicity) empagliflozin 25 mg tablet 1 tab QAM 11/13/21 01/22/22 (Jardiance) estradiol 0.01% (0.1 mg/gram) 1 appl vaginal 3XW 11/13/21 01/22/22 vaginal cream ferrous sulfate 325 mg (65 mg 1 tab PO DAILY 11/13/21 01/22/22 iron) tablet ketoconazole 2 % topical cream 1 appl topical BID 11/13/21 01/22/22 pen needle, diabetic 32 gauge x 11/13/21 01/22/22 5/32 (BD Meghan 2nd Gen Pen Needle) ropinirole 0.25 mg tablet 1 tab PO BEDTIME 11/13/21 01/22/22 rosuvastatin 40 mg tablet (Crestor) 40 mg PO BEDTIME 11/26/21 01/22/22 aspirin 81 mg tablet,delayed 1 tab PO DAILY 11/30/21 01/22/22 release Previous Rx's Medication Instructions Recorded mirabegron 25 mg tablet,extended 25 mg PO DAILY 30 days #30 tabs 04/16/21 release 24 hr (Myrbetriq) fluticasone propionate 50 1 spray intranasal DAILY 90 days 06/04/21 mcg/actuation nasal #16 grams spray,suspension riboflavin (vitamin B2) 400 mg 400 mg PO DAILY #30 tabs 06/22/21 tablet cholecalciferol (vitamin D3) 50 2,000 unit PO DAILY 90 days #90 06/29/21 mcg (2,000 unit) tablet tabs sennosides 8.6 mg tablet (senna) 17.2 mg PO BEDTIME 90 days #180 06/29/21 tabs cyanocobalamin (vitamin B-12) 1,000 mcg PO DAILY 90 days #90 tabs 07/31/21 1,000 mcg tablet docusate sodium 100 mg capsule 100 mg PO BID PRN constipation 90 07/31/21 (DOK) days #180 caps metformin 1,000 mg tablet 1,000 mg PO BID 90 days #180 tabs 07/31/21 fenofibrate 160 mg tablet 160 mg PO DAILY 90 days #90 tabs 09/28/21 omeprazole 40 mg capsule,delayed 40 mg PO DAILY #30 caps 11/03/21 release loratadine 10 mg tablet 10 mg PO DAILY 90 days #90 tabs 11/19/21 rivaroxaban 20 mg tablet (Xarelto) 20 mg PO QPM 30 days #30 tabs 11/21/21 furosemide 40 mg tablet 40 mg PO DAILY 90 days #90 tabs 11/22/21 hospital bed #1 ea 11/22/21 clindamycin HCl 300 mg capsule 300 mg PO Q6H 15 days #60 caps 11/30/21 ondansetron 4 mg disintegrating 4 mg PO Q6-8H PRN nausea and 12/12/21 tablet vomiting #14 tabs oxycodone 5 mg tablet 5 mg PO Q4H PRN pain #14 tabs 12/12/21 qmoeeeljxx-oxipgbcnvikvt-gwqdqbkr 1 cap PO Q8H PRN headache #10 caps 12/13/21 50 mg-300 mg-40 mg capsule (Fioricet) baclofen 10 mg tablet 5 mg PO TID PRN muscle pain 90 01/01/22 days #135 tabs escitalopram oxalate 10 mg tablet 10 mg PO DAILY 90 days #90 tabs 01/01/22 (Lexapro) trazodone 100 mg tablet 100 mg PO BEDTIME PRN sleep 90 01/01/22 days #90 tabs blood sugar diagnostic (OneTouch #100 ea 01/07/22 Verio test strips) oxycodone 5 mg tablet 5 mg PO Q6H PRN pain 30 days #120 01/07/22 tabs gabapentin 800 mg tablet 800 mg PO TID 90 days #270 tabs 01/22/22 insulin degludec 100 unit/mL (3 6 unit (0.06 mL) subcut DAILY 90 01/22/22 mL) subcutaneous pen ( #5.4 mL FlexTouch U-100 insulin) losartan 25 mg tablet 25 mg PO DAILY 90 days #90 tabs 01/22/22 magnesium 200 mg tablet 200 mg PO DAILY 90 days #90 tabs 01/22/22 enoxaparin 100 mg/mL subcutaneous 100 mg subcut Q12H #4 mL 01/31/22 syringe fesoterodine 8 mg tablet,extended 8 mg PO DAILY #30 tabs 01/31/22 release 24 hr (Toviaz) thiamine HCl (vitamin B1) 100 mg 100 mg PO DAILY 90 days #90 tabs 02/03/22 tablet Allergies Allergy/AdvReac Type Severity Reaction Status Date / Time morphine [Morphine] Allergy Severe ITCHING, Verified 01/28/22 12:05 hives cefdinir Allergy Intermediate hives Verified 01/28/22 12:05 sulfamethoxazole Allergy Intermediate RASH Verified 01/28/22 12:05 trimethoprim Allergy Intermediate RASH Verified 01/28/22 12:05 duloxetine AdvReac Severe altered Verified 01/28/22 12:05 behavior betina AdvReac Mild RUNNY NOSE Verified 01/28/22 12:05 mustard AdvReac Mild RUNNY NOSE Verified 01/28/22 12:05 potato [POTATO] AdvReac Mild ITCHY NOSE Verified 01/28/22 12:05 soybean AdvReac Mild RUNNY NOSE Verified 01/28/22 12:05 Review of Systems Review of Systems: Constitutional : No Weight loss, No Fever, No Chills ENT/Mouth :? No sore throat, No Rhinorrhea Eyes: No Eye Pain, No Swelling Cardiovascular : pos Chest Pain, no SOB, no Dyspnea on Exertion, No Orthopnea, No Edema, positive Palpitations Respiratory : No Cough, No Sputum Gastrointestinal : No Nausea, No Vomiting, No Diarrhea, No abdominal Pain, No Hematochezia, No Melena Genitourinary : No Dysuria, No Urinary Frequency Musculoskeletal : No joint pain, No Myalgias, No Joint Swelling Skin : No Skin Lesions, No rash Neuro : No Weakness, No Numbness, No Dizziness, No Headache Psych : No Anxiety/Panic, No Depression Heme/Lymph: No Bruising, No Lymphadenopathy Endocrine : No Polyuria, No Polydipsia Yes all other systems are reviewed and are negative [facility] [place] Past Medical History Attestation statement: The following information was validated with the patient. Source: old records reviewed Medical History Acute upper GI bleed Anemia Atherosclerotic cardiovascular disease Chronic heart failure with preserved ejection fraction (HFpEF) CVA (cerebral vascular accident) Diabetes mellitus Diabetes type 2, uncontrolled Diabetic neuropathy Diabetic polyneuropathy Dizziness Dyslipidemia Essential hypertension Falls Hand pain Head injury Headache Hospital discharge follow-up Iron deficiency anemia Ischemic stroke Left hand pain Left hip pain Left knee pain Left shoulder pain Lumbar degenerative disc disease Obesity due to excess calories Other and unspecified hyperlipidemia Paroxysmal atrial fibrillation PONV (postoperative nausea and vomiting) Proteinuria Pulmonary hypertension Pure hypercholesterolemia Thiamine deficiency Thrombus 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 Urge urinary incontinence Surgical History H/O colonoscopy History of Mohs micrographic surgery for skin cancer History of partial hysterectomy Hx of cardiac cath Hx of cervical spine surgery Family History Family History Father Rectal cancer Hypertension Arthritis of knee CVD (cardiovascular disease) Mother Hypertension CVD (cardiovascular disease) Myocardial infarction Diabetes Social History Social History Household Members: Spouse Housing: House Are you a primary skin care instructor to a significant other at home: No Do you presently have visiting nurse or other home services: No Alcohol intake: never Patient Tobacco Use Status: Former Tobacco user Quit Date: 1993 Tobacco use type: Cigarette e-Cigarette/Vaping Use: Never Used Second Hand Smoke Exposure: No Advance Directives: Yes Advance Directives on File: Yes Advance Directives Date on File: 07/17/20 service: No Current occupational status: retired Current occupation: Lt handed Cognitive needs: Yes (scodor/walker) Hearing needs: No Vision needs: Yes (glasses) Physical Exam Vital Signs: Vital Signs: Last Vital Signs Temp 97.7 F 02/06/22 08:32 Pulse 94 02/06/22 14:39 Resp 12 02/06/22 14:39 BP 195/78 H 02/06/22 14:39 Pulse Ox 97 02/06/22 14:39 O2 Del Method 02/06/22 14:39 BMI result Body Mass Index 37.2 Appearance: Alert.?Oriented to person, place and time. No acute distress.?Normal affect. Eyes: Pupils equal, round and reactive to light.? ENT: Pharynx normal.?? Neck: Normal inspection.? Neck supple.?? CVS: Heart sounds normal. Normal heart rate and rhythm.? Pulses normal.?3/6 systolic murmur?present at left and right sternal border. Respiratory: No respiratory distress.? Lung sounds clear to auscultation bilaterally?? Abdomen: Soft and non-tender. Normoactive bowel sounds. .?? Skin: Skin warm and dry.? Normal skin color.? Extremities: No lower extremity edema.? No calf ttp? Neuro: Moves all extremities spontaneously. Sensation intact bilaterally. CN II-XII intact. No focal neuro deficits. Ambulates with normal steady gait. Course Course Course Narrative: Patient is a 71-year-old female with a past medical history of ischemic CVA, anemia, hypercholesterolemia, CKD, type 2 diabetes with peripheral neuropathy, hypertension, obstructive sleep apnea on CPAP, morbid obesity, history of tobacco use, heart failure with preserved EF, ASCVD, spinal stenosis, paroxysmal atrial fibrillation who presents emergency department for evaluation of chest pain. She is overall well-appearing. Mildly hypertensive otherwise vital signs are stable no tachycardia, tachypnea, or hypoxia. Palpitations not present at the time of examination. EKG reveals normal sinus rhythm, not consistent with atrial fibrillation, nonspecific ST abnormality in the inferior leads. Will obtain CBC to evaluate for leukocytosis/ anemia, CMP and lipase to evaluate for abnormal electrolytes /abnormal renal function/ abnormal hepatic/biliary function, troponin to evaluate for ischemia/ACS. Chest x-ray to evaluate for consolidation/ infiltrate/ mass/ pulmonary congestion. Reevaluation(s) Reevaluation #1: Troponin noted to be elevated at 43.3, initial EKG with nonspecific findings inferiorly, repeat EKG obtained at this time, per isotope technologist leads were replaced, prior ST abnormality no longer present in the inferior leads. Reviewed with ED Attending Dr. Belcher. Additional Serum labs are pending. Time: 10:25 Reevaluation #2: Delta troponin is negative; 38.3. CMP is unremarkable. CBC not processed at this time, pending results to exclude anemia. Patient reports resolution of CP at this time, denies pounding sensation/ palpitations. Should CBC result normal patient to be discharged home, reviewed worsening signs and symptoms to return back to the emergency department for, all questions were answered. Time: 13:53 MDM - Arrhythmia/Palpitations Medical Records Attestation: I reviewed the patient's medical records. Lab Data Attestation: I reviewed the patient's lab results. Result diagrams: 02/06/22 15:00 02/06/22 12:59 Labs: Lab Results 02/06/22 02/06/22 02/06/22 Range/Units 09:30 09:30 10:50 WBC (4.8-10.8) X10*3/uL RBC (4.20-5.50) X10*6/uL Hgb (12.0-16.0) g/dl Hct (37.0-47.0) % MCV (80.0-98.0) fL MCH (27.0-33.0) pg MCHC (31.0-35.0) g/dl RDW (11.0-16.0) % Plt Count (160-400) X10*3/uL MPV (9.4-12.3) fL Immature Gran % (Auto) (0.0-0.4) % Neut % (Auto) (45-73) % Lymph % (Auto) (20-40) % [place]ven % (Auto) (2-11) % Eos % (Auto) (0-4) % Baso % (Auto) (0-2) % Lymph # (Auto) (1.2-4.9) X10*3/uL [place] # (Auto) (0.1-1.2) X10*3/uL Eos # (Auto) (0.0-0.4) X10*3/uL Baso # (Auto) (0.0-0.2) X10*3/uL Abs Immat Gran (auto) (0.00-0.03) X10*3/uL Absolute Neuts (auto) (2.0-8.3) x10*3/uL Absolute Nucleated RBC (0.0-0.012) X10*3/uL Nucleated RBC % (auto) (0.0-0.2) /100WBC Sodium (135-145) mmol/L Potassium (3.3-5.1) mmol/L Chloride (96-108) mmol/L Carbon Dioxide (22-29) mmol/L Anion Gap (12-20) BUN (9-16) mg/dL Creatinine (0.5-1.4) mg/dL Estim Creat Clear Calc Estimated GFR Random Glucose (60-115) mg/dL Calcium (8.4-10.2) mg/dL Total Bilirubin (0.0-1.0) mg/dL AST (5-31) U/L ALT (0-31) U/L Alkaline Phosphatase (39-117) U/L Troponin I High Sens 43.3 H D 40.2 H (<3.5-17.0) ng/L B-Natriuretic Peptide 100 (<100) pg/mL Total Protein (6.5-8.0) g/dL Albumin (3.5-5.0) g/dL 02/06/22 02/06/22 02/06/22 Range/Units 12:59 12:59 15:00 WBC 6.2 (4.8-10.8) X10*3/uL RBC 4.47 (4.20-5.50) X10*6/uL Hgb 12.2 (12.0-16.0) g/dl Hct 37.3 (37.0-47.0) % MCV 83.4 (80.0-98.0) fL MCH 27.3 (27.0-33.0) pg MCHC 32.7 (31.0-35.0) g/dl RDW 16.0 (11.0-16.0) % Plt Count 357 (160-400) X10*3/uL MPV 9.1 L (9.4-12.3) fL Immature Gran % (Auto) 0.3 (0.0-0.4) % Neut % (Auto) 61.0 (45-73) % Lymph % (Auto) 24.6 (20-40) % Craven % (Auto) 11.5 H (2-11) % Eos % (Auto) 1.8 (0-4) % Baso % (Auto) 0.8 (0-2) % Lymph # (Auto) 1.5 (1.2-4.9) X10*3/uL [place]ven # (Auto) 0.7 (0.1-1.2) X10*3/uL Eos # (Auto) 0.1 (0.0-0.4) X10*3/uL Baso # (Auto) 0.1 (0.0-0.2) X10*3/uL Abs Immat Gran (auto) 0.02 (0.00-0.03) X10*3/uL Absolute Neuts (auto) 3.8 (2.0-8.3) x10*3/uL Absolute Nucleated RBC 0.000 (0.0-0.012) X10*3/uL Nucleated RBC % (auto) 0.0 (0.0-0.2) /100WBC Sodium 137 (135-145) mmol/L Potassium 4.6 (3.3-5.1) mmol/L Chloride 98 (96-108) mmol/L Carbon Dioxide 28 (22-29) mmol/L Anion Gap 16 (12-20) BUN 23 H (9-16) mg/dL Creatinine 0.90 (0.5-1.4) mg/dL Estim Creat Clear Calc 61.1 Estimated GFR > 60 Random Glucose 136 H (60-115) mg/dL Calcium 9.8 (8.4-10.2) mg/dL Total Bilirubin 0.4 (0.0-1.0) mg/dL AST 27 (5-31) U/L ALT 17 (0-31) U/L Alkaline Phosphatase 53 D (39-117) U/L Troponin I High Sens 38.3 H (<3.5-17.0) ng/L B-Natriuretic Peptide (<100) pg/mL Total Protein 6.9 (6.5-8.0) g/dL Albumin 4.3 (3.5-5.0) g/dL Imaging Data Chest x-ray: Radiologist's impression: XR/XR chest 2V IMPRESSION: -No vascular congestion, infiltrate, or effusion. -Spinal stimulator leads present mid thoracic region. ECG Data Attestation: I personally reviewed and interpreted this ECG as follows: ECG interpretation date: 02/06/22 Interpretation: Rate: 86 Rhythm:? Normal sinus rhythm [place]:? Right axis deviation Normal P waves.? Normal MALATHI.?? Normal QRS complex.?? ST T wave :??non-specific ST Abnormality in inferior leads qTC: 449 prior studies:? November 2021 The study has been interpreted contemporaneously by me. Discharge Plan Discharge Clinical Impression: Chest pain, Palpitations Patient Disposition: Home, Self-Care Instructions: Chest Pain (ED) Additional Instructions: You were not in atrial fibrillation when you presented to the emergency department. As discussed, please return to the emergency department any new or worsening symptoms or concerns. Please contact your primary care provider to arrange for a follow-up visit within 2-3 days. Prescriptions: No Action fluticasone propionate 50 mcg/actuation spray,suspension 1 spray intranasal DAILY 90 Days Qty: 16 3RF Rx Instructions: administer into each nostril sennosides [senna] 8.6 mg tablet 17.2 mg PO BEDTIME 90 Days Qty: 180 3RF cholecalciferol (vitamin D3) 50 mcg (2,000 unit) tablet 2,000 unit PO DAILY 90 Days Qty: 90 3RF metformin 1,000 mg tablet 1,000 mg PO BID 90 Days Qty: 180 3RF docusate sodium [DOK] 100 mg capsule 100 mg PO BID PRN (Reason: constipation) 90 Days Qty: 180 2RF cyanocobalamin (vitamin B-12) 1,000 mcg tablet 1,000 mcg PO DAILY 90 Days Qty: 90 3RF fenofibrate 160 mg tablet 160 mg PO DAILY 90 Days Qty: 90 3RF loratadine 10 mg tablet 10 mg PO DAILY 90 Days Qty: 90 0RF Xarelto 20 mg tablet 20 mg PO QPM 30 Days Qty: 30 5RF Hold Instructions: Resume on 12/02/21. clindamycin HCl 300 mg capsule 300 mg PO Q6H 15 Days Qty: 60 1RF Rx Instructions: take probiotics OTC in between the doses of the antibiotics hkxhyzicvp-fmyofxgclrags-bchg [Fioricet] 50-300-40 mg capsule 1 cap PO Q8H PRN (Reason: headache) Qty: 10 0RF trazodone 100 mg tablet 100 mg PO BEDTIME PRN (Reason: sleep) 90 Days Qty: 90 1RF escitalopram oxalate [Lexapro] 10 mg tablet 10 mg PO DAILY 90 Days Qty: 90 1RF baclofen 10 mg tablet 5 mg PO TID PRN (Reason: muscle pain) 90 Days Qty: 135 0RF (DME) OneTouch Verio test strips Strip See Rx Instructions .Route Qty: 100 5RF Rx Instructions: Use 1 test strip twice a day oxycodone 5 mg tablet 5 mg PO Q6H PRN (Reason: pain) 30 Days Qty: 120 0RF Tresiba FlexTouch U-100 100 unit/mL (3 mL) insulin pen 6 unit subcut DAILY 90 Days Qty: 5.4 3RF Toviaz 8 mg tablet extended release 24 hr 8 mg PO DAILY Qty: 30 1RF enoxaparin 100 mg/mL syringe 100 mg subcut Q12H Qty: 4 0RF thiamine HCl (vitamin B1) 100 mg tablet 100 mg PO DAILY 90 Days Qty: 90 1RF hydroxychloroquine [Plaquenil] 200 mg tablet 200 mg PO BID ropinirole 0.25 mg tablet 1 tab PO BEDTIME estradiol 0.01 % (0.1 mg/gram) cream 1 appl vaginal 3XW ketoconazole 2 % cream 1 appl topical BID (DME) pen needle, diabetic [BD Meghan 2nd Gen Pen Needle] 32 gauge x 5/32 needle MISCELLANEOUS DAILY Jardiance 25 mg tablet 1 tab QAM Trulicity 3 mg/0.5 mL pen injector 0.5 ml subcut QWEEK ferrous sulfate 325 mg (65 mg iron) tablet 1 tab PO DAILY ondansetron 4 mg tablet,disintegrating 4 mg PO Q6-8H PRN (Reason: nausea and vomiting) Qty: 14 0RF oxycodone 5 mg tablet 5 mg PO Q4H PRN (Reason: pain) Qty: 14 0RF Rx Instructions: Patient may request partial fill; Partial Fill upon patient request. omeprazole 40 mg capsule,delayed release(DR/EC) 40 mg PO DAILY Qty: 30 0RF rosuvastatin [Crestor] 40 mg tablet 40 mg PO BEDTIME aspirin 81 mg tablet,delayed release (DR/EC) 1 tab PO DAILY Hold Instructions: Resume on 01/26/22. Hold aspirin and all NSAIDs including ibuprofen Motrin for 8 weeks gabapentin 800 mg tablet 800 mg PO TID 90 Days Qty: 270 3RF magnesium 200 mg tablet 200 mg PO DAILY 90 Days Qty: 90 1RF losartan 25 mg tablet 25 mg PO DAILY 90 Days Qty: 90 0RF riboflavin (vitamin B2) 400 mg tablet 400 mg PO DAILY Qty: 30 0RF furosemide 40 mg tablet 40 mg PO DAILY 90 Days Qty: 90 0RF (DME) hospital bed Kit See Rx Instructions .Route Qty: 1 0RF Rx Instructions: As directed Myrbetriq 25 mg tablet extended release 24 hr 25 mg PO DAILY 30 Days Qty: 30 1RF Interventions: ED Discharge Assessment Last Done: 02/06/22 15:57 Discharge Date/Time: 02/06/22 15:57
[2022-02-06 09:57] LABS: B Type Natriuretic Peptide 100 pg/mL (<100); Troponin-I High Sensitivity 43.3 ng/L (<3.5-17.0)
--- NOTE | 2022-02-06 10:09 | ECG_ITS ---
Test Reason : Arrythmia Blood Pressure : / mmHG Vent. Rate : 078 BPM Atrial Rate : 078 BPM P-R Int : 176 ms QRS Dur : 106 ms QT Int : 400 ms P-R-T Axes : 018 -59 036 degrees QTc Int : 456 ms Normal sinus rhythm Left axis deviation Abnormal ECG When compared with ECG of 06-FEB-2022 08:37, Criteria for Inferior infarct are no longer Present Referred By: Vy Gonzalez Electronically Signed By:EMILY SILVA
[2022-02-06 11:27] LABS: Troponin-I High Sensitivity 40.2 ng/L (<3.5-17.0)
[2022-02-06 13:31] LABS: Alanine Aminotransferase 17 U/L (0-31); Albumin Level 4.3 g/dL (3.5-5.0); Alkaline Phosphatase 53 U/L (39-117); Anion Gap 16 (12-20); Aspartate Amino Transferase 27 U/L (5-31); Bilirubin Total 0.4 mg/dL (0.0-1.0); Blood Urea Nitrogen 23 mg/dL (9-16); Calcium 9.8 mg/dL (8.4-10.2); Carbon Dioxide 28 mmol/L (22-29); Chloride 98 mmol/L (96-108); Creatinine Clr Calc Pharmacy 61.1; Estimated Glomerular Filt Rate > 60; Glucose Random 136 mg/dL (60-115); Potassium 4.6 mmol/L (3.3-5.1); Sodium 137 mmol/L (135-145); Total Protein 6.9 g/dL (6.5-8.0); Troponin-I High Sensitivity 38.3 ng/L (<3.5-17.0)
[2022-02-06 14:39] VITALS: BP 195/78; PULSE 94; RESP 12; O2SAT 97
[2022-02-06 15:07] LABS: MANUAL DIFF FLAG NO
[2022-02-06 15:09] LABS: Basophils Absolute Auto 0.1 X10*3/uL (0.0-0.2); Basophils Percent Auto 0.8 % (0-2); Eosinophils Absolute Auto 0.1 X10*3/uL (0.0-0.4); Eosinophils Percent Auto 1.8 % (0-4); Hematocrit 37.3 % (37.0-47.0); Hemoglobin 12.2 g/dl (12.0-16.0); Imm Gran Abs Auto 0.02 X10*3/uL (0.00-0.03); Imm Gran Pct Auto 0.3 % (0.0-0.4); Lymphocytes Absolute Auto 1.5 X10*3/uL (1.2-4.9); Lymphocytes Percent Auto 24.6 % (20-40); Mean Corpuscular HGB Conc 32.7 g/dl (31.0-35.0); Mean Corpuscular Hemoglobin 27.3 pg (27.0-33.0); Mean Corpuscular Volume 83.4 fL (80.0-98.0); Mean Platelet Volume 9.1 fL (9.4-12.3); Monocytes Absolute Auto 0.7 X10*3/uL (0.1-1.2); Monocytes Percent Auto 11.5 % (2-11); Neutrophils Absolute Auto 3.8 x10*3/uL (2.0-8.3); Platelet Count 357 X10*3/uL (160-400); Red Blood Count 4.47 X10*6/uL (4.20-5.50); White Blood Count 6.2 X10*3/uL (4.8-10.8)
[2022-02-06] MEDS: Acetaminophen 325 MG TABLET 650 MG PO (15:30)
== END 2022-02-06 15:57 | disposition home or self-care (01) ==
PROVIDERS: Nurse Practitioner Family; Emergency Provider Emergency Medicine; PCP Internal Medicine
DX: R07.9 Chest pain, unspecified (principal); R00.2 Palpitations; E11.9 Type 2 diabetes mellitus without complications; I11.0 Hypertensive heart disease with heart failure; I50.9 Heart failure, unspecified; I48.0 Paroxysmal atrial fibrillation; E78.5 Hyperlipidemia, unspecified; E78.00 Pure hypercholesterolemia, unspecified; E66.9 Obesity, unspecified; Z68.37 Body mass index [BMI] 37.0-37.9, adult; Z87.891 Personal history of nicotine dependence; Z86.73 Personal history of transient ischemic attack (TIA), and cerebral infarction without residual deficits; Z79.02 Long term (current) use of antithrombotics/antiplatelets; Z79.84 Long term (current) use of oral hypoglycemic drugs; Z79.899 Other long term (current) drug therapy
CPT/HCPCS: 36415; 71046; 80053; 83880; 84484; 85025; 93005; 99283; 99284

== ENCOUNTER 2022-02-19 06:01 | Outpatient (REF) | payer MEDICARE, SELFPAY ==
--- NOTE | ~2022-02-19 | FL_ITS ---
EXAMINATION: XR FLUOROSCOPY WITH IMAGES CLINICAL INFORMATION: M47.812 - Spondylosis without myelopathy or radiculopathy, cervical region COMPARISON: CT cervical spine 01/22/2022 TECHNIQUE: Fluoroscopy performed by Dr. Lio Kinsey. Fluoroscopy time: 1.0. Cumulative Dose: 18.0 mGy. DAP: 3.23 Gy-cm2. Images: 7. FINDINGS: There are spinal needles overlying the bilateral lateral masses cervical spine approximately C2, C3, and C4. There is contrast in the paraspinal soft tissues and nerve sheaths. No visible vascular communication. FL/FL guidance in treatment room IMPRESSION: Fluoroscopy for pain management procedure.
== END 2022-02-19 06:02 | disposition home or self-care (01) ==
LOC: CF 06:01
PROVIDERS: Visit Provider Anesthesiology
DX: M47.812 Spondylosis without myelopathy or radiculopathy, cervical region (principal); M47.22 Other spondylosis with radiculopathy, cervical region; M47.27 Other spondylosis with radiculopathy, lumbosacral region; M48.00 Spinal stenosis, site unspecified; E11.42 Type 2 diabetes mellitus with diabetic polyneuropathy; Z96.89 Presence of other specified functional implants
CPT/HCPCS: 64490; 64491; J3300

== ENCOUNTER → 2022-03-20 14:26 | Outpatient (BNVA) | payer MEDICARE, SELFPAY | PROVIDERS: PCP Internal Medicine; Referring Provider Internal Medicine; Visit Provider Internal Medicine | DX: I50.32 Chronic diastolic (congestive) heart failure (principal); I25.10 Atherosclerotic heart disease of native coronary artery without angina pectoris; I48.0 Paroxysmal atrial fibrillation; E78.5 Hyperlipidemia, unspecified; Z86.73 Personal history of transient ischemic attack (TIA), and cerebral infarction without residual deficits | CPT/HCPCS: 99212 ==

== ENCOUNTER → 2022-03-25 11:14 | Outpatient (BNVA) | payer MEDICARE, SELFPAY | PROVIDERS: PCP Internal Medicine; Visit Provider Anesthesiology | DX: M47.22 Other spondylosis with radiculopathy, cervical region (principal); M47.27 Other spondylosis with radiculopathy, lumbosacral region; M48.00 Spinal stenosis, site unspecified; E11.42 Type 2 diabetes mellitus with diabetic polyneuropathy; M47.812 Spondylosis without myelopathy or radiculopathy, cervical region; Z96.89 Presence of other specified functional implants | CPT/HCPCS: 99212 ==

== ENCOUNTER 2022-04-09 13:25 | Emergency (ER) | payer MEDICARE, SELFPAY ==
--- NOTE | ~2022-04-09 | XR_ITS ---
EXAMINATION: XR CHEST CLINICAL INFORMATION: Shortness of breath COMPARISON: 02/06/2022 TECHNIQUE: Frontal view of the chest was obtained. FINDINGS: Heart and pulmonary vessels appear normal. No infiltrates, effusions or lung masses are seen. Again noted are degenerative changes in the spine and spinal stimulator leads. There is calcification in the supraspinatus tendon on the right. XR/XR chest 1V IMPRESSION: No acute intrathoracic disease. Calcific tendinitis right shoulder.
[2022-04-09 15:57] VITALS: BP 139/74; PULSE 70; RESP 18; TEMP 36.4; O2SAT 96; BMI 37.2
--- NOTE | 2022-04-09 15:58 | ED.GENADULT ---
HPI - General Adult General Chief complaint: General Medical <Mayra Lr MD - Last Filed: 04/09/22 16:04> Stated complaint: quest of stroke <Mayra Lr MD - Last Filed: 04/09/22 16:04> Time Seen by Provider: 04/09/22 21:17 <Mayra Lr MD - Last Filed: 04/09/22 16:04> Source: patient <Pj Dumont MD - Last Filed: 04/09/22 23:48> Mode of arrival: ambulatory <Pj Dumont MD - Last Filed: 04/09/22 23:48> Limitations: no limitations <Pj Dumont MD - Last Filed: 04/09/22 23:48> History of Present Illness HPI narrative: 71-year-old female with a past medical history of hypertension, hyperlipidemia, diabetes, coronary artery disease, AFib on Xarelto, CKD, CHF, insomnia, sleep apnea, anxiety, depression, pulmonary hypertension, 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, restless leg syndrome comes here for twitching movements of hands and movement of the lower extremity for last few days worried about might be stroke patient feels anxious no weakness otherwise just feels tired all over no upper respiratory symptoms my chest pain or palpitation <Pj Dumont MD - Last Filed: 04/09/22 23:48> Related Data Home medications: Home Medications Medication Instructions Recorded Confirmed empagliflozin 25 mg tablet 1 tab QAM 11/13/21 03/20/22 (Jardiance) estradiol 0.01% (0.1 mg/gram) 1 appl vaginal 3XW 11/13/21 03/20/22 vaginal cream ferrous sulfate 325 mg (65 mg 1 tab PO DAILY 11/13/21 03/20/22 iron) tablet ketoconazole 2 % topical cream 1 appl topical BID 11/13/21 03/20/22 pen needle, diabetic 32 gauge x 11/13/21 03/20/22 (BD Meghan 2nd Gen Pen Needle) ropinirole 0.25 mg tablet 1 tab PO BEDTIME 11/13/21 03/20/22 rosuvastatin 40 mg tablet (Crestor) 40 mg PO BEDTIME 11/26/21 03/20/22 aspirin 81 mg tablet,delayed 1 tab PO DAILY 11/30/21 03/20/22 release Previous Rx's Medication Instructions Recorded fluticasone propionate 50 1 spray intranasal DAILY 90 days 06/04/21 mcg/actuation nasal #16 grams spray,suspension riboflavin (vitamin B2) 400 mg 400 mg PO DAILY #30 tabs 06/22/21 tablet cholecalciferol (vitamin D3) 50 2,000 unit PO DAILY 90 days #90 06/29/21 mcg (2,000 unit) tablet tabs sennosides 8.6 mg tablet (senna) 17.2 mg PO BEDTIME 90 days #180 06/29/21 tabs cyanocobalamin (vitamin B-12) 1,000 mcg PO DAILY 90 days #90 tabs 07/31/21 1,000 mcg tablet docusate sodium 100 mg capsule 100 mg PO BID PRN constipation 90 07/31/21 (DOK) days #180 caps metformin 1,000 mg tablet 1,000 mg PO BID 90 days #180 tabs 07/31/21 fenofibrate 160 mg tablet 160 mg PO DAILY 90 days #90 tabs 09/28/21 loratadine 10 mg tablet 10 mg PO DAILY 90 days #90 tabs 11/19/21 rivaroxaban 20 mg tablet (Xarelto) 20 mg PO QPM 30 days #30 tabs 11/21/21 furosemide 40 mg tablet 40 mg PO DAILY 90 days #90 tabs 11/22/21 hospital bed #1 ea 11/22/21 ondansetron 4 mg disintegrating 4 mg PO Q6-8H PRN nausea and 12/12/21 tablet vomiting #14 tabs cmgexgcyaf-paqwtyzrzdbad-ksaikygn 1 cap PO Q8H PRN headache #10 caps 12/13/21 50 mg-300 mg-40 mg capsule (Fioricet) escitalopram oxalate 10 mg tablet 10 mg PO DAILY 90 days #90 tabs 01/01/22 (Lexapro) trazodone 100 mg tablet 100 mg PO BEDTIME PRN sleep 90 01/01/22 days #90 tabs blood sugar diagnostic (OneTouch #100 ea 01/07/22 Verio test strips) gabapentin 800 mg tablet 800 mg PO TID 90 days #270 tabs 01/22/22 insulin degludec 100 unit/mL (3 6 unit (0.06 mL) subcut DAILY 90 01/22/22 mL) subcutaneous pen (Tresiba days #5.4 mL FlexTouch U-100 insulin) magnesium 200 mg tablet 200 mg PO DAILY 90 days #90 tabs 01/22/22 thiamine HCl (vitamin B1) 100 mg 100 mg PO DAILY 90 days #90 tabs 02/03/22 tablet mirabegron 25 mg tablet,extended 25 mg PO DAILY 30 days #30 tabs 02/11/22 release 24 hr (Myrbetriq) oxycodone 5 mg tablet 5 mg PO Q6H PRN pain 30 days #120 03/19/22 tabs baclofen 10 mg tablet 5 mg PO TID PRN muscle pain 90 03/20/22 days #135 tabs atenolol 50 mg tablet 50 mg PO DAILY 90 days #90 tabs 03/22/22 dulaglutide 3 mg/0.5 mL 3 mg (0.5 mL) subcut QWEEK 90 days 03/22/22 subcutaneous pen injector #6.5 mL (Trulicity) fesoterodine 8 mg tablet,extended 8 mg PO DAILY #30 tabs 04/02/22 release 24 hr losartan 25 mg tablet 25 mg PO DAILY 90 days #90 tabs 04/02/22 omeprazole 40 mg capsule,delayed 40 mg PO DAILY #30 caps 04/02/22 release hydroxychloroquine 200 mg tablet 200 mg PO BID #180 tabs 04/03/22 (Plaquenil) <Mayra Lr MD - Last Filed: 04/09/22 16:04> Allergies/adverse reactions: Allergies Allergy/AdvReac Type Severity Reaction Status Date / Time morphine [Morphine] Allergy Severe ITCHING, Verified 04/09/22 15:57 hives cefdinir Allergy Intermediate hives Verified 04/09/22 15:57 sulfamethoxazole Allergy Intermediate RASH Verified 04/09/22 15:57 trimethoprim Allergy Intermediate RASH Verified 04/09/22 15:57 duloxetine AdvReac Severe altered Verified 04/09/22 15:57 behavior betina AdvReac Mild RUNNY NOSE Verified 04/09/22 15:57 mustard AdvReac Mild RUNNY NOSE Verified 04/09/22 15:57 potato [POTATO] AdvReac Mild ITCHY NOSE Verified 04/09/22 15:57 soybean AdvReac Mild RUNNY NOSE Verified 04/09/22 15:57 <Mayra Lr MD - Last Filed: 04/09/22 16:04> Review of Systems Review of Systems: Yes all other systems are reviewed and are negative <Pj Dumont MD - Last Filed: 04/09/22 23:48> [facility] Past Medical History Medical History: Medical History Acute upper GI bleed Anemia Atherosclerotic cardiovascular disease Chronic heart failure with preserved ejection fraction (HFpEF) CVA (cerebral vascular accident) Diabetes mellitus Diabetes type 2, uncontrolled Diabetic neuropathy Diabetic polyneuropathy Dizziness Dyslipidemia Essential hypertension Falls Hand pain Head injury Headache Hospital discharge follow-up Iron deficiency anemia Ischemic stroke Left hand pain Left hip pain Left knee pain Left shoulder pain Lumbar degenerative disc disease Obesity due to excess calories Other and unspecified hyperlipidemia Paroxysmal atrial fibrillation PONV (postoperative nausea and vomiting) Proteinuria Pulmonary hypertension Pure hypercholesterolemia Thiamine deficiency Thrombus 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 Urge urinary incontinence <Mayra Lr MD - Last Filed: 04/09/22 16:04> Surgical History: Surgical History H/O colonoscopy History of Mohs micrographic surgery for skin cancer History of partial hysterectomy Hx of cardiac cath Hx of cervical spine surgery <Mayra Lr MD - Last Filed: 04/09/22 16:04> Family History Family History: Family History Father Rectal cancer Hypertension Arthritis of knee CVD (cardiovascular disease) Mother Hypertension CVD (cardiovascular disease) Myocardial infarction Diabetes <Mayra Lr MD - Last Filed: 04/09/22 16:04> Social History Social History: Social History Household Members: Spouse Housing: House Are you a primary senior care manager to a significant other at home: No Do you presently have visiting nurse or other home services: No Alcohol intake: never Patient Tobacco Use Status: Former Tobacco user Quit Date: 1993 Tobacco use type: Cigarette e-Cigarette/Vaping Use: Never Used Second Hand Smoke Exposure: No Advance Directives: Yes Advance Directives on File: Yes Advance Directives Date on File: 07/17/20 service: No Current occupational status: retired Current occupation: Lt handed Cognitive needs: Yes (scodor/walker) Hearing needs: No Vision needs: Yes (glasses) <Mayra Lr MD - Last Filed: 04/09/22 16:04> Physical Exam ED Vital Signs: Vital Signs - 24 hr 04/09/22 15:57 04/09/22 20:09 04/09/22 21:18 Temperature 97.5 F 97.7 F 97.9 F Pulse Rate 70 72 69 Respiratory Rate 18 18 18 Blood Pressure 139/74 132/54 L 147/53 H Pulse Oximetry 96 100 96 Oxygen Delivery Method Room Air Room Air Room Air BMI result Body Mass Index 37.2 <Mayra Lr MD - Last Filed: 04/09/22 16:04> Vital Signs - 24 hr 04/09/22 15:57 04/09/22 20:09 04/09/22 21:18 Temperature 97.5 F 97.7 F 97.9 F Pulse Rate 70 72 69 Respiratory Rate 18 18 18 Blood Pressure 139/74 132/54 L 147/53 H Pulse Oximetry 96 100 96 Oxygen Delivery Method Room Air Room Air Room Air BMI result Body Mass Index 37.2 <Pj Dumont MD - Last Filed: 04/09/22 23:48> Appearance: Alert. Oriented X3. No acute distress. Anxious Eyes: PERRLA, No Nystagmus ENT: Pharynx normal. Oral Mucosa moist Neck: Normal inspection. Neck supple. CVS: Normal heart rate and rhythm. Pulses normal. Respiratory: No respiratory distress. Equal air entry bilateral, no wheezing/rales/rhonchi Abdomen: Soft and nontender. Bowel sounds are present, no mass palpable, no CVA tenderness Skin: Skin warm and dry. Normal skin color. Normal skin turgor. Extremities: No lower extremity edema. No calf tenderness Neuro: Oriented X 3. No motor deficit. No sensory deficit.No cerebellar signs , cranial nerves II-XII intact no tremors patient is voluntary to bilateral feet movement <Pj Dumont MD - Last Filed: 04/09/22 23:48> NIH Stroke Scale Time: 21:37 <Pj Dumont MD - Last Filed: 04/09/22 23:48> Level of Consciousness: Alert <Pj Dumont MD - Last Filed: 04/09/22 23:48> Level of Consciousness Questions: Answers both questions correctly <Pj Dumont MD - Last Filed: 04/09/22 23:48> Level of Consciousness Commands: Performs both tasks correctly <Pj Dumont MD - Last Filed: 04/09/22 23:48> Best Gaze: Normal <Pj Dumont MD - Last Filed: 04/09/22 23:48> Visual: No visual loss <Pj Dumont MD - Last Filed: 04/09/22 23:48> Facial Palsy: Normal <Pj Dumont MD - Last Filed: 04/09/22 23:48> Motor Arm (Right): No drift <Pj Dumont MD - Last Filed: 04/09/22 23:48> Motor Arm (Left): No drift <Pj Dumont MD - Last Filed: 04/09/22 23:48> Motor Leg (Right): No drift <Pj Dumont MD - Last Filed: 04/09/22 23:48> Motor Leg (Left): No drift <Pj Dumont MD - Last Filed: 04/09/22 23:48> Limb Ataxia: Absent <Pj uDmont MD - Last Filed: 04/09/22 23:48> Sensory: Normal <Pj Dumont MD - Last Filed: 04/09/22 23:48> Best Language: No aphasia <Pj Dumont MD - Last Filed: 04/09/22 23:48> Dysarthia: Normal <Pj Dumont MD - Last Filed: 04/09/22 23:48> Extinction and Inattention: No abnormality <Pj Dumont MD - Last Filed: 04/09/22 23:48> Score: 0 <Pj Dumont MD - Last Filed: 04/09/22 23:48> Course Course Course Narrative: 71F with DM, CHF, HTN, a-fib on Xarelto, p/w fluttering of the heart and worried about abnormal movement of both upper extremities for almost 1 week. Denies falls, and has been taking medications and PCP referred her to the ER. VITAL SIGNS: Reviewed. GENERAL: Well developed, well nourished, in no acute distress. HEAD: Normocephalic/atraumatic EYES: PERRLA, EOMI EARS: Ext canals without abnormality OROPHARYNX: no oral lesions noted, posterior pharynx clear LUNGS: Normal breath sounds. No adventitious sounds or accessory muscle use. CARDIOVASCULAR: Regular rate and rhythm without noted murmurs, no JVD 1+ RLE edema. ABDOMEN: Soft, non-tender, non-distended with bowel sounds. MUSCULOSKELETAL: No tenderness, deformities, or effusions noted on gross inspection. EXTREMITIES: No cyanosis, clubbing or edema. SKIN: Inspection of the skin reveals no rashes NEUROLOGIC: Alert and oriented x 4. Strength and sensation to light touch were grossly intact x 4. <Mayra Lr MD - Last Filed: 04/09/22 16:04> Medications Administered Discontinued Medications Generic Name Dose Route Start Last Admin Trade Name Freq PRN Reason Stop Dose Admin Acetaminophen 650 mg 04/09/22 20:13 04/09/22 20:17 Acetaminophen 325 Mg Tablet PO 04/09/22 20:14 650 mg ONCE ONE Administration Sodium Chloride 1,000 mls @ 999 mls/hr 04/09/22 21:34 04/09/22 21:57 Ns IV 04/09/22 22:34 999 mls/hr .Q1H1M ONE Administration Lorazepam 1 mg 04/09/22 21:34 04/09/22 21:56 Lorazepam 1 Mg Tablet PO 04/09/22 21:35 1 mg ONCE ONE Administration <Mayra Lr MD - Last Filed: 04/09/22 16:04> Medications Administered Discontinued Medications Generic Name Dose Route Start Last Admin Trade Name Freq PRN Reason Stop Dose Admin Acetaminophen 650 mg 04/09/22 20:13 04/09/22 20:17 Acetaminophen 325 Mg Tablet PO 04/09/22 20:14 650 mg ONCE ONE Administration Sodium Chloride 1,000 mls @ 999 mls/hr 04/09/22 21:34 04/09/22 21:57 Ns IV 04/09/22 22:34 999 mls/hr .Q1H1M ONE Administration Lorazepam 1 mg 04/09/22 21:34 04/09/22 21:56 Lorazepam 1 Mg Tablet PO 04/09/22 21:35 1 mg ONCE ONE Administration <Pj Dumont MD - Last Filed: 04/09/22 23:48> Medical Decision Making MDM Narrative Medical decision making narrative: Patient with nonspecific complaints for last 3-4 days clinically has more anxiety no focal deficit noted does not have a CVA. Lab workup showed elevated BUN will give IV fluids likely prerenal will check COVID test as she is feeling weak and overall tired Patient feeling much better after Ativan p.o. and IV fluids will discharge patient home <Pj Dumont MD - Last Filed: 04/09/22 23:48> Lab Data Lab results reviewed: Yes I reviewed the patient's lab results. <Pj Dumont MD - Last Filed: 04/09/22 23:48> Result diagrams: : 04/09/22 16:40 04/09/22 16:40 <Mayra Lr MD - Last Filed: 04/09/22 16:04> Labs: Lab Results 04/09/22 04/09/22 04/09/22 Range/Units 16:40 16:40 16:40 WBC 7.6 (4.8-10.8) X10*3/uL RBC 4.32 (4.20-5.50) X10*6/uL Hgb 11.8 L (12.0-16.0) g/dl Hct 36.8 L (37.0-47.0) % MCV 85.2 (80.0-98.0) fL MCH 27.3 (27.0-33.0) pg MCHC 32.1 (31.0-35.0) g/dl RDW 16.3 H (11.0-16.0) % Plt Count 387 (160-400) X10*3/uL MPV 9.1 L (9.4-12.3) fL Immature Gran % (Auto) 0.3 (0.0-0.4) % Neut % (Auto) 59.2 (45-73) % Lymph % (Auto) 27.4 (20-40) % [place] % (Auto) 9.5 (2-11) % Eos % (Auto) 2.5 (0-4) % Baso % (Auto) 1.1 (0-2) % Lymph # (Auto) 2.1 (1.2-4.9) X10*3/uL [place] # (Auto) 0.7 (0.1-1.2) X10*3/uL Eos # (Auto) 0.2 (0.0-0.4) X10*3/uL Baso # (Auto) 0.1 (0.0-0.2) X10*3/uL Abs Immat Gran (auto) 0.02 (0.00-0.03) X10*3/uL Absolute Neuts (auto) 4.5 (2.0-8.3) x10*3/uL Absolute Nucleated RBC 0.000 (0.0-0.012) X10*3/uL Nucleated RBC % (auto) 0.0 (0.0-0.2) /100WBC PT 12.0 (10.0-13.1) SEC INR 1.0 (0.9-1.1) Sodium (135-145) mmol/L Potassium (3.3-5.1) mmol/L Chloride (96-108) mmol/L Carbon Dioxide (22-29) mmol/L Anion Gap (12-20) BUN (9-16) mg/dL Creatinine (0.5-1.4) mg/dL Estim Creat Clear Calc Estimated GFR Random Glucose (60-115) mg/dL Calcium (8.4-10.2) mg/dL Total Bilirubin (0.0-1.0) mg/dL AST (5-31) U/L ALT (0-31) U/L Alkaline Phosphatase (39-117) U/L Troponin I High Sens (<3.5-17.0) ng/L B-Natriuretic Peptide 296 H (<100) pg/mL Total Protein (6.5-8.0) g/dL Albumin (3.5-5.0) g/dL COVID-19 ([facility]) (Negative) COVID-19 Clin Com 04/09/22 04/09/22 04/09/22 Range/Units 16:40 16:40 22:15 WBC (4.8-10.8) X10*3/uL RBC (4.20-5.50) X10*6/uL Hgb (12.0-16.0) g/dl Hct (37.0-47.0) % MCV (80.0-98.0) fL MCH (27.0-33.0) pg MCHC (31.0-35.0) g/dl RDW (11.0-16.0) % Plt Count (160-400) X10*3/uL MPV (9.4-12.3) fL Immature Gran % (Auto) (0.0-0.4) % Neut % (Auto) (45-73) % Lymph % (Auto) (20-40) % Rad[place] % (Auto) (2-11) % Eos % (Auto) (0-4) % Baso % (Auto) (0-2) % Lymph # (Auto) (1.2-4.9) X10*3/uL [place] # (Auto) (0.1-1.2) X10*3/uL Eos # (Auto) (0.0-0.4) X10*3/uL Baso # (Auto) (0.0-0.2) X10*3/uL Abs Immat Gran (auto) (0.00-0.03) X10*3/uL Absolute Neuts (auto) (2.0-8.3) x10*3/uL Absolute Nucleated RBC (0.0-0.012) X10*3/uL Nucleated RBC % (auto) (0.0-0.2) /100WBC PT (10.0-13.1) SEC INR (0.9-1.1) Sodium 139 (135-145) mmol/L Potassium 4.1 (3.3-5.1) mmol/L Chloride 98 (96-108) mmol/L Carbon Dioxide 34 H (22-29) mmol/L Anion Gap 11 L (12-20) BUN 44 H (9-16) mg/dL Creatinine 1.14 (0.5-1.4) mg/dL Estim Creat Clear Calc 48.2 Estimated GFR 47 Random Glucose 114 (60-115) mg/dL Calcium 9.6 (8.4-10.2) mg/dL Total Bilirubin 0.4 (0.0-1.0) mg/dL AST 21 (5-31) U/L ALT 15 (0-31) U/L Alkaline Phosphatase 70 (39-117) U/L Troponin I High Sens 24.7 H (<3.5-17.0) ng/L B-Natriuretic Peptide (<100) pg/mL Total Protein 6.8 (6.5-8.0) g/dL Albumin 4.2 (3.5-5.0) g/dL COVID-19 ([facility]) Negative (Negative) COVID-19 Clin Com See Note <Mayra Lr MD - Last Filed: 04/09/22 16:04> Lab Results 04/09/22 04/09/22 04/09/22 Range/Units 16:40 16:40 16:40 WBC 7.6 (4.8-10.8) X10*3/uL RBC 4.32 (4.20-5.50) X10*6/uL Hgb 11.8 L (12.0-16.0) g/dl Hct 36.8 L (37.0-47.0) % MCV 85.2 (80.0-98.0) fL MCH 27.3 (27.0-33.0) pg MCHC 32.1 (31.0-35.0) g/dl RDW 16.3 H (11.0-16.0) % Plt Count 387 (160-400) X10*3/uL MPV 9.1 L (9.4-12.3) fL Immature Gran % (Auto) 0.3 (0.0-0.4) % Neut % (Auto) 59.2 (45-73) % Lymph % (Auto) 27.4 (20-40) % [place] % (Auto) 9.5 (2-11) % Eos % (Auto) 2.5 (0-4) % Baso % (Auto) 1.1 (0-2) % Lymph # (Auto) 2.1 (1.2-4.9) X10*3/uL [place] # (Auto) 0.7 (0.1-1.2) X10*3/uL Eos # (Auto) 0.2 (0.0-0.4) X10*3/uL Baso # (Auto) 0.1 (0.0-0.2) X10*3/uL Abs Immat Gran (auto) 0.02 (0.00-0.03) X10*3/uL Absolute Neuts (auto) 4.5 (2.0-8.3) x10*3/uL Absolute Nucleated RBC 0.000 (0.0-0.012) X10*3/uL Nucleated RBC % (auto) 0.0 (0.0-0.2) /100WBC PT 12.0 (10.0-13.1) SEC INR 1.0 (0.9-1.1) Sodium (135-145) mmol/L Potassium (3.3-5.1) mmol/L Chloride (96-108) mmol/L Carbon Dioxide (22-29) mmol/L Anion Gap (12-20) BUN (9-16) mg/dL Creatinine (0.5-1.4) mg/dL Estim Creat Clear Calc Estimated GFR Random Glucose (60-115) mg/dL Calcium (8.4-10.2) mg/dL Total Bilirubin (0.0-1.0) mg/dL AST (5-31) U/L ALT (0-31) U/L Alkaline Phosphatase (39-117) U/L Troponin I High Sens (<3.5-17.0) ng/L B-Natriuretic Peptide 296 H (<100) pg/mL Total Protein (6.5-8.0) g/dL Albumin (3.5-5.0) g/dL COVID-19 ([facility]) (Negative) COVID-19 Clin Com 04/09/22 04/09/22 04/09/22 Range/Units 16:40 16:40 22:15 WBC (4.8-10.8) X10*3/uL RBC (4.20-5.50) X10*6/uL Hgb (12.0-16.0) g/dl Hct (37.0-47.0) % MCV (80.0-98.0) fL MCH (27.0-33.0) pg MCHC (31.0-35.0) g/dl RDW (11.0-16.0) % Plt Count (160-400) X10*3/uL MPV (9.4-12.3) fL Immature Gran % (Auto) (0.0-0.4) % Neut % (Auto) (45-73) % Lymph % (Auto) (20-40) % [place] % (Auto) (2-11) % Eos % (Auto) (0-4) % Baso % (Auto) (0-2) % Lymph # (Auto) (1.2-4.9) X10*3/uL [place] # (Auto) (0.1-1.2) X10*3/uL Eos # (Auto) (0.0-0.4) X10*3/uL Baso # (Auto) (0.0-0.2) X10*3/uL Abs Immat Gran (auto) (0.00-0.03) X10*3/uL Absolute Neuts (auto) (2.0-8.3) x10*3/uL Absolute Nucleated RBC (0.0-0.012) X10*3/uL Nucleated RBC % (auto) (0.0-0.2) /100WBC PT (10.0-13.1) SEC INR (0.9-1.1) Sodium 139 (135-145) mmol/L Potassium 4.1 (3.3-5.1) mmol/L Chloride 98 (96-108) mmol/L Carbon Dioxide 34 H (22-29) mmol/L Anion Gap 11 L (12-20) BUN 44 H (9-16) mg/dL Creatinine 1.14 (0.5-1.4) mg/dL Estim Creat Clear Calc 48.2 Estimated GFR 47 Random Glucose 114 (60-115) mg/dL Calcium 9.6 (8.4-10.2) mg/dL Total Bilirubin 0.4 (0.0-1.0) mg/dL AST 21 (5-31) U/L ALT 15 (0-31) U/L Alkaline Phosphatase 70 (39-117) U/L Troponin I High Sens 24.7 H (<3.5-17.0) ng/L B-Natriuretic Peptide (<100) pg/mL Total Protein 6.8 (6.5-8.0) g/dL Albumin 4.2 (3.5-5.0) g/dL COVID-19 ([facility]) Negative (Negative) COVID-19 Clin Com See Note <Pj Dumont MD - Last Filed: 04/09/22 23:48> ECG Data Attestation: I personally reviewed and interpreted this ECG as follows: <Pj Dumont MD - Last Filed: 04/09/22 23:48> Interpretation: Normal sinus rhythm with PACs heart rate 70 beats per minute right axis deviation no acute ST-T no acute ischemia <Pj Dumont MD - Last Filed: 04/09/22 23:48> Discharge Plan Discharge Clinical Impression: Anxiety, Dehydration <Mayra Lr MD - Last Filed: 04/09/22 16:04> Patient Disposition: Home, Self-Care <Mayra Lr MD - Last Filed: 04/09/22 16:04> Instructions: Dehydration (ED), Anxiety (ED) <Mayra Lr MD - Last Filed: 04/09/22 16:04> Additional Instructions: Drink plenty of fluids Continue taking medications and follow with PCP <Mayra Lr MD - Last Filed: 04/09/22 16:04> Prescriptions: No Action fluticasone propionate 50 mcg/actuation spray,suspension 1 spray intranasal DAILY 90 Days Qty: 16 3RF Rx Instructions: administer into each nostril sennosides [senna] 8.6 mg tablet 17.2 mg PO BEDTIME 90 Days Qty: 180 3RF cholecalciferol (vitamin D3) 50 mcg (2,000 unit) tablet 2,000 unit PO DAILY 90 Days Qty: 90 3RF metformin 1,000 mg tablet 1,000 mg PO BID 90 Days Qty: 180 3RF docusate sodium [DOK] 100 mg capsule 100 mg PO BID PRN (Reason: constipation) 90 Days Qty: 180 2RF cyanocobalamin (vitamin B-12) 1,000 mcg tablet 1,000 mcg PO DAILY 90 Days Qty: 90 3RF fenofibrate 160 mg tablet 160 mg PO DAILY 90 Days Qty: 90 3RF loratadine 10 mg tablet 10 mg PO DAILY 90 Days Qty: 90 0RF Xarelto 20 mg tablet 20 mg PO QPM 30 Days Qty: 30 5RF Hold Instructions: Resume on 12/02/21. [id number]-[id number]-[id number] [Fioricet] 50-300-40 mg capsule 1 cap PO Q8H PRN (Reason: headache) Qty: 10 0RF trazodone 100 mg tablet 100 mg PO BEDTIME PRN (Reason: sleep) 90 Days Qty: 90 1RF escitalopram oxalate [Lexapro] 10 mg tablet 10 mg PO DAILY 90 Days Qty: 90 1RF (DME) OneTouch Verio test strips Strip See Rx Instructions .Route Qty: 100 5RF Rx Instructions: Use 1 test strip twice a day Tresiba FlexTouch U-100 100 unit/mL (3 mL) insulin pen 6 unit subcut DAILY 90 Days Qty: 5.4 3RF thiamine HCl (vitamin B1) 100 mg tablet 100 mg PO DAILY 90 Days Qty: 90 1RF Myrbetriq 25 mg tablet extended release 24 hr 25 mg PO DAILY 30 Days Qty: 30 1RF oxycodone 5 mg tablet 5 mg PO Q6H PRN (Reason: pain) 30 Days Qty: 120 0RF baclofen 10 mg tablet 5 mg PO TID PRN (Reason: muscle pain) 90 Days Qty: 135 0RF Trulicity 3 mg/0.5 mL pen injector 3 mg subcut QWEEK 90 Days Qty: 6.5 3RF atenolol 50 mg tablet 50 mg PO DAILY 90 Days Qty: 90 3RF omeprazole 40 mg capsule,delayed release(DR/EC) 40 mg PO DAILY Qty: 30 0RF losartan 25 mg tablet 25 mg PO DAILY 90 Days Qty: 90 0RF fesoterodine 8 mg tablet extended release 24 hr 8 mg PO DAILY Qty: 30 0RF hydroxychloroquine [Plaquenil] 200 mg tablet 200 mg PO BID Qty: 180 3RF ropinirole 0.25 mg tablet 1 tab PO BEDTIME estradiol 0.01 % (0.1 mg/gram) cream 1 appl vaginal 3XW ketoconazole 2 % cream 1 appl topical BID (DME) pen needle, diabetic [BD Meghan 2nd Gen Pen Needle] 32 gauge x /32 needle MISCELLANEOUS DAILY Jardiance 25 mg tablet 1 tab QAM ferrous sulfate 325 mg (65 mg iron) tablet 1 tab PO DAILY ondansetron 4 mg tablet,disintegrating 4 mg PO Q6-8H PRN (Reason: nausea and vomiting) Qty: 14 0RF rosuvastatin [Crestor] 40 mg tablet 40 mg PO BEDTIME aspirin 81 mg tablet,delayed release (DR/EC) 1 tab PO DAILY Hold Instructions: Resume on 01/26/22. Hold aspirin and all NSAIDs including ibuprofen Motrin for 8 weeks gabapentin 800 mg tablet 800 mg PO TID 90 Days Qty: 270 3RF magnesium 200 mg tablet 200 mg PO DAILY 90 Days Qty: 90 1RF riboflavin (vitamin B2) 400 mg tablet 400 mg PO DAILY Qty: 30 0RF furosemide 40 mg tablet 40 mg PO DAILY 90 Days Qty: 90 0RF (DME) hospital bed Kit See Rx Instructions .Route Qty: 1 0RF Rx Instructions: As directed <Mayra Lr MD - Last Filed: 04/09/22 16:04> Interventions: ED Discharge Assessment Last Done: 04/09/22 23:10 <Mayra Lr MD - Last Filed: 04/09/22 16:04> Discharge Date/Time: 04/09/22 23:11 <Mayra Lr MD - Last Filed: 04/09/22 16:04>
--- NOTE | 2022-04-09 15:59 | ECG_ITS ---
Test Reason : HYPERTENSION Blood Pressure : / mmHG Vent. Rate : 070 BPM Atrial Rate : 070 BPM P-R Int : 186 ms QRS Dur : 108 ms QT Int : 412 ms P-R-T Axes : 038 048 020 degrees QTc Int : 444 ms Sinus rhythm with Premature atrial complexes Intra-ventricular conduction delay late transition Abnormal ECG When compared with ECG of 06-FEB-2022 10:25, Premature atrial complexes are now Present QRS axis Shifted right Referred By: Mayra Lr Electronically Signed By:DAYRON BARRERA MD
[2022-04-09 16:45] LABS: MANUAL DIFF FLAG NO
[2022-04-09 16:47] LABS: Basophils Absolute Auto 0.1 X10*3/uL (0.0-0.2); Basophils Percent Auto 1.1 % (0-2); Eosinophils Absolute Auto 0.2 X10*3/uL (0.0-0.4); Eosinophils Percent Auto 2.5 % (0-4); Hematocrit 36.8 % (37.0-47.0); Hemoglobin 11.8 g/dl (12.0-16.0); Imm Gran Abs Auto 0.02 X10*3/uL (0.00-0.03); Imm Gran Pct Auto 0.3 % (0.0-0.4); Lymphocytes Absolute Auto 2.1 X10*3/uL (1.2-4.9); Lymphocytes Percent Auto 27.4 % (20-40); Mean Corpuscular HGB Conc 32.1 g/dl (31.0-35.0); Mean Corpuscular Hemoglobin 27.3 pg (27.0-33.0); Mean Corpuscular Volume 85.2 fL (80.0-98.0); Mean Platelet Volume 9.1 fL (9.4-12.3); Monocytes Absolute Auto 0.7 X10*3/uL (0.1-1.2); Monocytes Percent Auto 9.5 % (2-11); Neutrophils Absolute Auto 4.5 x10*3/uL (2.0-8.3); Neutrophils Percent Auto 59.2 % (45-73); Platelet Count 387 X10*3/uL (160-400); Red Blood Count 4.32 X10*6/uL (4.20-5.50); Red Cell Distribution Width 16.3 % (11.0-16.0); White Blood Count 7.6 X10*3/uL (4.8-10.8)
[2022-04-09 17:03] LABS: Alanine Aminotransferase 15 U/L (0-31); Albumin Level 4.2 g/dL (3.5-5.0); Alkaline Phosphatase 70 U/L (39-117); Anion Gap 11 (12-20); Aspartate Amino Transferase 21 U/L (5-31); Bilirubin Total 0.4 mg/dL (0.0-1.0); Blood Urea Nitrogen 44 mg/dL (9-16); Calcium 9.6 mg/dL (8.4-10.2); Carbon Dioxide 34 mmol/L (22-29); Chloride 98 mmol/L (96-108); Creatinine Clr Calc Pharmacy 48.2; Estimated Glomerular Filt Rate 47; Glucose Random 114 mg/dL (60-115); Potassium 4.1 mmol/L (3.3-5.1); Sodium 139 mmol/L (135-145); Total Protein 6.8 g/dL (6.5-8.0)
[2022-04-09 17:07] LABS: B Type Natriuretic Peptide 296 pg/mL (<100)
[2022-04-09 17:10] LABS: Troponin-I High Sensitivity 24.7 ng/L (<3.5-17.0)
[2022-04-09 20:09] VITALS: BP 132/54; PULSE 72; RESP 18; TEMP 36.5; O2SAT 100
[2022-04-09] MEDS: Acetaminophen 325 MG TABLET 650 MG PO (20:17)
--- NOTE | 2022-04-09 20:27 | PC.NURSE ---
re-triage assessment complete, pt reporting no change in symptoms, but worsening bilateral foot pain, medicated w PO tylenol.
[2022-04-09 21:18] VITALS: BP 147/53; PULSE 69; RESP 18; TEMP 36.6; O2SAT 96
[2022-04-09] MEDS: LORazepam 1 MG TABLET PO (21:56)
[2022-04-09] MEDS: 0.9 % Sodium Chloride 1,000 ML 999 ML IV (21:57)
[2022-04-09 22:35] LABS: COVID-19 Test Negative (Negative); IDNOW Serial# 55D5AD1C
== END 2022-04-09 23:11 | disposition home or self-care (01) ==
PROVIDERS: Student in an Organized Health Care Education/Training Program; Emergency Provider Internal Medicine; PCP Internal Medicine
DX: E86.0 Dehydration (principal); F41.1 Generalized anxiety disorder; F43.0 Acute stress reaction; R25.1 Tremor, unspecified; I10 Essential (primary) hypertension; I48.91 Unspecified atrial fibrillation; R06.02 Shortness of breath; E11.9 Type 2 diabetes mellitus without complications; Z20.822 Contact with and (suspected) exposure to COVID-19; Z86.73 Personal history of transient ischemic attack (TIA), and cerebral infarction without residual deficits; Z79.01 Long term (current) use of anticoagulants; Z79.899 Other long term (current) drug therapy
CPT/HCPCS: 36415; 71045; 80053; 83880; 84484; 85025; 85610; 87635; 93005; 99283; 99284

== ENCOUNTER → 2022-04-25 09:41 | Outpatient (BNVA) | payer MEDICARE, SELFPAY | PROVIDERS: PCP Internal Medicine; Visit Provider Urology | DX: N39.41 Urge incontinence (principal); N32.81 Overactive bladder | CPT/HCPCS: Q3014 ==

== ENCOUNTER 2022-05-13 10:55 | Emergency (ER) | payer MEDICARE, SELFPAY ==
--- NOTE | ~2022-05-13 | CT_ITS ---
CT head/brain wo IV con CLINICAL INFORMATION: Reason for Exam Fall on blood thinners COMPARISON: Prior CT 11/30/2021. TECHNIQUE: Department standard protocol. This CT examination was performed using dose optimization techniques as appropriate, variously including the following: *Automated exposure control *Adjustment of mA and/or kV according to patient size (this includes techniques or standardized protocols for targeted exams where dose is matched to indication/reason for exam; i.e. extremities or head) *Use of iterative reconstruction technique DLP: 779 mGy-cm FINDINGS: CEREBRAL HEMISPHERES: There is no evidence of intra-axial or extra-axial mass, hemorrhage or acute infarct. BRAIN PARENCHYMA: Normal small-white matter differentiation. SUBDURAL SPACE: No bleed. BASAL GANGLIA AND PINEAL GLAND: Unremarkable VENTRICLES: Symmetric and normal in size. CEREBELLUM AND BRAINSTEM: No space-occupying mass, hemorrhage or acute infarct. CEREBELLOPONTINE ANGLES: No lesion found. ORBITS: No intraorbital mass. VESSELS: Unremarkable SKULL BASE: Unremarkable INCLUDED SINUSES AT SKULL BASE: Clear SKULL AND SKIN: No fracture or bone lesion found. CT/CT head/brain wo IV con IMPRESSION: No CT evidence of intracranial space-occupying mass, bleed or infarct.
--- NOTE | ~2022-05-13 | CT_ITS ---
EXAMINATION: CT CERVICAL SPINE CLINICAL INFORMATION: Reason for Exam Pain, fall, on blood thinners COMPARISON: Prior CT January 2022 TECHNIQUE: Computed axial sagittal and coronal images acquired using department's standard protocol. This CT examination was performed using dose optimization techniques as appropriate, variously including the following: *Automated exposure control *Adjustment of mA and/or kV according to patient size (this includes techniques or standardized protocols for targeted exams where dose is matched to indication/reason for exam; i.e. extremities or head) *Use of iterative reconstruction technique CONTRAST: None DLP: 1454 mGy-cm FINDINGS: SKULL BASE: Visualized structures at skull base are normal, Included facial sinuses are clear, CERVICAL VERTEBRAE: Seven cervical vertebrae identified maintaining proper height and alignment, redemonstration of postsurgical changes, laminectomy at C3-C4 through C5-C6. Posterior longitudinal ligament calcifications redemonstrated. DISCS: Loss of disc height and developed osteophytes especially at C3-C4 through C7-T1 suggests underlying diffuse degenerative disc disease. There are developed osteophyte from the edges of endplates encroaching on the left foramen at C3-C4, C4-C5 and right foramen at C3-C4, C4-C5 possibly impinging on the nerve roots. Redemonstration of a stenosis of central canal at C6 and C7 due to protruding osteophyte ridges of from endplates. PARAVERTEBRAL SOFT TISSUE: There is a right thyroid nodule 1.8 cm unchanged. This should be evaluated with follow-up ultrasound. CT/CT cervical spine wo IV con IMPRESSION: * No CT evidence of cervical spine fracture. * Redemonstration of postsurgical changes, laminectomy at C3-C4 through C5-C6. * Redemonstration of stenosis of central canal at C6 and C7 due to protruding osteophyte ridges of endplates. * Redemonstration of bilateral foraminal stenosis at multiple levels as described above. * Redemonstration of right thyroid nodule 1.8 cm. Follow-up thyroid ultrasound recommended.
--- NOTE | ~2022-05-13 | XR_ITS ---
EXAMINATION: XR CHEST CLINICAL INFORMATION: Cough COMPARISON: April 09, 2022 TECHNIQUE: AP portable view of the chest was obtained. FINDINGS: There is some coarsened lung markings seen at the left base which may relate to atelectasis or some degree of interstitial lung disease. No confluent pneumonitis identified. No pneumothorax or pleural effusion. Heart normal size. No evidence of pulmonary edema. Neuro stimulating wires are seen. XR/XR chest 1V IMPRESSION: Probable focus of atelectasis left base.
[2022-05-13 11:05] VITALS: BP 146/65; BP 177/81; PULSE 67; PULSE 69; RESP 18; TEMP 36.7; O2SAT 96; O2SAT 97; BMI 38.9
--- NOTE | 2022-05-13 11:27 | ECG_ITS ---
Test Reason : DIZZINESS Blood Pressure : / mmHG Vent. Rate : 067 BPM Atrial Rate : 067 BPM P-R Int : 198 ms QRS Dur : 098 ms QT Int : 430 ms P-R-T Axes : 050 -16 030 degrees QTc Int : 454 ms Normal sinus rhythm Minimal voltage criteria for LVH, may be normal variant ( [place] product ) Inferior infarct , age undetermined Abnormal ECG When compared with ECG of 09-APR-2022 18:17, No significant changes seen Referred By: Mayra Lr Electronically Signed By:KEAGAN MONACO
[2022-05-13 12:22] LABS: MANUAL DIFF FLAG NO
[2022-05-13 12:23] LABS: Basophils Absolute Auto 0.1 X10*3/uL (0.0-0.2); Basophils Percent Auto 0.8 % (0-2); Eosinophils Absolute Auto 0.3 X10*3/uL (0.0-0.4); Eosinophils Percent Auto 3.5 % (0-4); Hematocrit 38.4 % (37.0-47.0); Hemoglobin 12.3 g/dl (12.0-16.0); Imm Gran Abs Auto 0.04 X10*3/uL (0.00-0.03); Imm Gran Pct Auto 0.5 % (0.0-0.4); Lymphocytes Absolute Auto 1.6 X10*3/uL (1.2-4.9); Lymphocytes Percent Auto 20.8 % (20-40); Mean Corpuscular Hemoglobin 27.5 pg (27.0-33.0); Mean Corpuscular Volume 85.9 fL (80.0-98.0); Monocytes Absolute Auto 0.7 X10*3/uL (0.1-1.2); Monocytes Percent Auto 8.3 % (2-11); Neutrophils Absolute Auto 5.2 x10*3/uL (2.0-8.3); Neutrophils Percent Auto 66.1 % (45-73); Platelet Count 389 X10*3/uL (160-400); Red Blood Count 4.47 X10*6/uL (4.20-5.50); Red Cell Distribution Width 16.7 % (11.0-16.0); White Blood Count 7.8 X10*3/uL (4.8-10.8)
[2022-05-13 12:27] LABS: INTERNATIONAL NORM RATIO 1.2 (0.9-1.1); Prothrombin Time 13.6 SEC (10.0-13.1)
[2022-05-13 12:37] LABS: COVID-19 Test Negative (Negative); IDNOW Serial# 16C4AD1C
[2022-05-13 12:38] LABS: IDNOW Serial# BCCEAD1C; Influenza A Negative (Negative); Influenza B2 Negative (Negative)
[2022-05-13 12:42] LABS: Alanine Aminotransferase 12 U/L (0-31); Albumin Level 4.1 g/dL (3.5-5.0); Alkaline Phosphatase 49 U/L (39-117); Anion Gap 15 (12-20); Aspartate Amino Transferase 18 U/L (5-31); Bilirubin Total 0.4 mg/dL (0.0-1.0); Blood Urea Nitrogen 22 mg/dL (9-16); Calcium 9.6 mg/dL (8.4-10.2); Carbon Dioxide 28 mmol/L (22-29); Chloride 102 mmol/L (96-108); Creatinine Clr Calc Pharmacy 64.8; Estimated Glomerular Filt Rate > 60; Glucose Random 127 mg/dL (60-115); Potassium 4.5 mmol/L (3.3-5.1); Sodium 140 mmol/L (135-145); Total Protein 6.8 g/dL (6.5-8.0)
[2022-05-13 12:43] LABS: Troponin-I High Sensitivity 17.1 ng/L (<3.5-17.0)
[2022-05-13 13:17] VITALS: BP 150/52; PULSE 67; RESP 14; TEMP 37.1; O2SAT 98
[2022-05-13 13:29] LABS: Appearance Urine Clear; Color Urine Yellow; Glucose Urine UA 500 mg/dL (Negative); Leukocyte Esterase Urine Negative (Negative); Nitrite Urine Negative (Negative); PH 6.5 (5.0-9.0); Urine Blood Negative (Negative); Urine Ketones Negative (Negative); Urine Protein Trace mg/dL (Neg-Trace)
--- NOTE | 2022-05-13 13:31 | ED.FALL ---
HPI - Fall General Chief Complaint: Fall Stated Complaint: DIZZY W/FALL,+THINNER,-LOC Time Seen by Provider: 05/13/22 11:27 Source: patient Mode of arrival: EMS History of Present Illness HPI Narrative: 71-year-old female who presents with a mechanical fall while walking with her walker and states that she fell backwards and hit the back of her head without loss of consciousness. She otherwise denies any fevers, chills, shortness of breath, urinary symptoms. Related Data Home Medications Medication Instructions Recorded Confirmed empagliflozin 25 mg tablet 1 tab QAM 11/13/21 04/25/22 (Jardiance) estradiol 0.01% (0.1 mg/gram) 1 appl vaginal 3XW 11/13/21 04/25/22 vaginal cream ketoconazole 2 % topical cream 1 appl topical BID 11/13/21 04/25/22 pen needle, diabetic 32 gauge x 11/13/21 04/25/2232 (BD Meghan 2nd Gen Pen Needle) ropinirole 0.25 mg tablet 1 tab PO BEDTIME 11/13/21 04/25/22 rosuvastatin 40 mg tablet (Crestor) 40 mg PO BEDTIME 11/26/21 04/25/22 aspirin 81 mg tablet,delayed 1 tab PO DAILY 11/30/21 04/25/22 release Previous Rx's Medication Instructions Recorded fluticasone propionate 50 1 spray intranasal DAILY 90 days 06/04/21 mcg/actuation nasal #16 grams spray,suspension riboflavin (vitamin B2) 400 mg 400 mg PO DAILY #30 tabs 06/22/21 tablet cholecalciferol (vitamin D3) 50 2,000 unit PO DAILY 90 days #90 06/29/21 mcg (2,000 unit) tablet tabs sennosides 8.6 mg tablet (senna) 17.2 mg PO BEDTIME 90 days #180 06/29/21 tabs cyanocobalamin (vitamin B-12) 1,000 mcg PO DAILY 90 days #90 tabs 07/31/21 1,000 mcg tablet docusate sodium 100 mg capsule 100 mg PO BID PRN constipation 90 07/31/21 (DOK) days #180 caps metformin 1,000 mg tablet 1,000 mg PO BID 90 days #180 tabs 07/31/21 fenofibrate 160 mg tablet 160 mg PO DAILY 90 days #90 tabs 09/28/21 loratadine 10 mg tablet 10 mg PO DAILY 90 days #90 tabs 11/19/21 rivaroxaban 20 mg tablet (Xarelto) 20 mg PO QPM 30 days #30 tabs 11/21/21 hospital bed #1 ea 11/22/21 ondansetron 4 mg disintegrating 4 mg PO Q6-8H PRN nausea and 12/12/21 tablet vomiting #14 tabs zcublwpuwr-ximxtxxjabibs-rjvjnhzu 1 cap PO Q8H PRN headache #10 caps 12/13/21 50 mg-300 mg-40 mg capsule (Fioricet) escitalopram oxalate 10 mg tablet 10 mg PO DAILY 90 days #90 tabs 01/01/22 (Lexapro) trazodone 100 mg tablet 100 mg PO BEDTIME PRN sleep 90 01/01/22 days #90 tabs blood sugar diagnostic (OneTouch #100 ea 01/07/22 Verio test strips) gabapentin 800 mg tablet 800 mg PO TID 90 days #270 tabs 01/22/22 insulin degludec 100 unit/mL (3 6 unit (0.06 mL) subcut DAILY 90 01/22/22 mL) subcutaneous pen (si days #5.4 mL FlexTouch U-100 insulin) magnesium 200 mg tablet 200 mg PO DAILY 90 days #90 tabs 01/22/22 thiamine HCl (vitamin B1) 100 mg 100 mg PO DAILY 90 days #90 tabs 02/03/22 tablet baclofen 10 mg tablet 5 mg PO TID PRN muscle pain 90 03/20/22 days #135 tabs atenolol 50 mg tablet 50 mg PO DAILY 90 days #90 tabs 03/22/22 dulaglutide 3 mg/0.5 mL 3 mg (0.5 mL) subcut QWEEK 90 days 03/22/22 subcutaneous pen injector #6.5 mL (Trulicity) losartan 25 mg tablet 25 mg PO DAILY 90 days #90 tabs 04/02/22 hydroxychloroquine 200 mg tablet 200 mg PO BID #180 tabs 04/03/22 (Plaquenil) doxycycline hyclate 100 mg capsule 100 mg PO BID 5 days #10 caps 04/12/22 furosemide 40 mg tablet 40 mg PO DAILY 90 days #90 tabs 04/15/22 oxycodone 5 mg tablet 5 mg PO Q6H PRN pain 30 days #120 04/15/22 tabs mirabegron 50 mg tablet,extended 50 mg PO DAILY #30 tabs 04/25/22 release 24 hr (Myrbetriq) ferrous sulfate 325 mg (65 mg 325 mg PO DAILY 90 days #90 tabs 05/02/22 iron) tablet fesoterodine 8 mg tablet,extended 8 mg PO DAILY #30 tabs 05/02/22 release 24 hr omeprazole 40 mg capsule,delayed 40 mg PO DAILY #30 caps 05/02/22 release Allergies Allergy/AdvReac Type Severity Reaction Status Date / Time morphine [Morphine] Allergy Severe ITCHING, Verified 04/25/22 09:39 hives cefdinir Allergy Intermediate hives Verified 04/25/22 09:39 sulfamethoxazole Allergy Intermediate RASH Verified 04/25/22 09:39 trimethoprim Allergy Intermediate RASH Verified 04/25/22 09:39 duloxetine AdvReac Severe altered Verified 04/25/22 09:39 behavior betina AdvReac Mild RUNNY NOSE Verified 04/25/22 09:39 mustard AdvReac Mild RUNNY NOSE Verified 04/25/22 09:39 potato [POTATO] AdvReac Mild ITCHY NOSE Verified 04/25/22 09:39 soybean AdvReac Mild RUNNY NOSE Verified 04/25/22 09:39 Review of Systems Review of Systems: Pertinent positives and negatives as stated in HPI. PMFSH Past Medical History Source: nursing notes reviewed Medical History Acute upper GI bleed Anemia Atherosclerotic cardiovascular disease Chronic heart failure with preserved ejection fraction (HFpEF) CVA (cerebral vascular accident) Diabetes mellitus Diabetes type 2, uncontrolled Diabetic neuropathy Diabetic polyneuropathy Dizziness Dyslipidemia Essential hypertension Falls Hand pain Head injury Headache Hospital discharge follow-up Iron deficiency anemia Ischemic stroke Left hand pain Left hip pain Left knee pain Left shoulder pain Lumbar degenerative disc disease Obesity due to excess calories Other and unspecified hyperlipidemia Paroxysmal atrial fibrillation PONV (postoperative nausea and vomiting) Proteinuria Pulmonary hypertension Pure hypercholesterolemia Thiamine deficiency Thrombus 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 Urge urinary incontinence Surgical History H/O colonoscopy History of Mohs micrographic surgery for skin cancer History of partial hysterectomy Hx of cardiac cath Hx of cervical spine surgery Family History Family History Father Rectal cancer Hypertension Arthritis of knee CVD (cardiovascular disease) Mother Hypertension CVD (cardiovascular disease) Myocardial infarction Diabetes Social History Social History Household Members: Spouse Housing: House Are you a primary palliative care coordinator to a significant other at home: No Do you presently have visiting nurse or other home services: No Alcohol intake: unknown Patient Tobacco Use Status: Former Tobacco user Quit Date: 1993 Tobacco use type: Cigarette e-Cigarette/Vaping Use: Never Used Second Hand Smoke Exposure: No Use of substances other than those prescribed or required for medical reasons: Unknown Advance Directives: Yes Advance Directives on File: Yes Advance Directives Date on File: 07/17/20 service: No Current occupational status: retired Current occupation: Lt handed Cognitive needs: Yes (scodor/walker) Hearing needs: No Vision needs: Yes (glasses) Physical Exam Vital Signs: Vital Signs: Last Vital Signs Temp 98.7 F 05/13/22 13:17 Pulse 67 05/13/22 13:17 Resp 14 05/13/22 13:17 BP 150/52 H 05/13/22 13:17 Pulse Ox 98 05/13/22 13:17 O2 Del Method 05/13/22 13:17 BMI result Body Mass Index 38.9 VITAL SIGNS: Reviewed. GENERAL: Elderly,, in no acute distress. HEAD: Normocephalic/atraumatic EYES: PERRLA, EOMI EARS: Ext canals without abnormality NOSE: Nares patent bilateral OROPHARYNX: no oral lesions noted, posterior pharynx clear NECK: C-collar in place, no midline cervical spine tenderness LUNGS: Normal breath sounds. No adventitious sounds or accessory muscle use. SpO2<98> CARDIOVASCULAR: Regular rate and rhythm without noted murmurs, no JVD or lower extremity edema. ABDOMEN: Soft, non-tender, non-distended with bowel sounds. MUSCULOSKELETAL: No tenderness, deformities, or effusions noted on gross inspection. EXTREMITIES: No cyanosis, clubbing or edema. SKIN: Inspection of the skin reveals no rashes, ulcerations, jaundice, pallor, or petechiae. NEUROLOGIC: Alert and oriented x 3. Strength and sensation to light touch were grossly intact x 4. Medical Decision Making Medical Decision Making [facility] Narrative: 71-year-old female with a fall on blood thinners. 1239: C-collar removed after review of CT c-spine imaging that demonstrated no acute findings and exam was without midline tenderness on palpation or on ROM. No focal neurological deficits to suggest spinal cord injury. 1424: On review of laboratory investigations there is no evidence of infection or anemia, troponins are chronically stable, there is no evidence of will electrolyte or renal dysfunction, urinalysis is negative for evidence of infection, and serology testing is negative. We will conduct an ambulation test prior to patient being discharged but otherwise she is stable for discharge to home. 1433: Patient was ambulated with a walker and did very well without noted difficulty and will be discharged home in stable condition. Differential Diagnosis Differential Diagnoses: The differential diagnosis associated with the presentation includes I will rule out Intracranial bleed, C-spine injury, infection, anemia, electrolyte or renal dysfunction, UTI Lab Data [facility] Lab Attestation statement: I reviewed the patient's lab results. Please see discussion above Result Diagrams: 05/13/22 12:17 05/13/22 12:17 Labs: Lab Results 05/13/22 05/13/22 05/13/22 Range/Units 12:17 12:17 12:17 WBC 7.8 (4.8-10.8) X10*3/uL RBC 4.47 (4.20-5.50) X10*6/uL Hgb 12.3 (12.0-16.0) g/dl Hct 38.4 (37.0-47.0) % MCV 85.9 (80.0-98.0) fL MCH 27.5 (27.0-33.0) pg MCHC 32.0 (31.0-35.0) g/dl RDW 16.7 H (11.0-16.0) % Plt Count 389 (160-400) X10*3/uL MPV 9.0 L (9.4-12.3) fL Immature Gran % (Auto) 0.5 H (0.0-0.4) % Neut % (Auto) 66.1 (45-73) % Lymph % (Auto) 20.8 (20-40) % [place] % (Auto) 8.3 (2-11) % Eos % (Auto) 3.5 (0-4) % Baso % (Auto) 0.8 (0-2) % Lymph # (Auto) 1.6 (1.2-4.9) X10*3/uL [place] # (Auto) 0.7 (0.1-1.2) X10*3/uL Eos # (Auto) 0.3 (0.0-0.4) X10*3/uL Baso # (Auto) 0.1 (0.0-0.2) X10*3/uL Abs Immat Gran (auto) 0.04 H (0.00-0.03) X10*3/uL Absolute Neuts (auto) 5.2 (2.0-8.3) x10*3/uL Absolute Nucleated RBC 0.000 (0.0-0.012) X10*3/uL Nucleated RBC % (auto) 0.0 (0.0-0.2) /100WBC PT 13.6 H (10.0-13.1) SEC INR 1.2 H (0.9-1.1) Sodium 140 (135-145) mmol/L Potassium 4.5 (3.3-5.1) mmol/L Chloride 102 (96-108) mmol/L Carbon Dioxide 28 (22-29) mmol/L Anion Gap 15 (12-20) BUN 22 H (9-16) mg/dL Creatinine 0.87 (0.5-1.4) mg/dL Estim Creat Clear Calc 64.8 Estimated GFR > 60 Random Glucose 127 H (60-115) mg/dL Calcium 9.6 (8.4-10.2) mg/dL Total Bilirubin 0.4 (0.0-1.0) mg/dL AST 18 (5-31) U/L ALT 12 (0-31) U/L Alkaline Phosphatase 49 (39-117) U/L Troponin I High Sens (<3.5-17.0) ng/L Total Protein 6.8 (6.5-8.0) g/dL Albumin 4.1 (3.5-5.0) g/dL Urine Color Urine Appearance Urine pH (5.0-9.0) Ur Specific [place] (1.005-1.025) Urine Protein (Neg-Trace) mg/dL Urine Glucose (UA) (Negative) mg/dL Urine Ketones (Negative) mg/dL Urine Blood (Negative) Urine Nitrite (Negative) Ur Leukocyte Esterase (Negative) COVID-19 ([facility]IRE) (Negative) COVID-19 Clin Com Influenza Type A ([facility]Y) (Negative) Influenza Type B (DUY) (Negative) Influenza A & B Note 05/13/22 05/13/22 05/13/22 Range/Units 12:17 12:17 12:17 WBC (4.8-10.8) X10*3/uL RBC (4.20-5.50) X10*6/uL Hgb (12.0-16.0) g/dl Hct (37.0-47.0) % MCV (80.0-98.0) fL MCH (27.0-33.0) pg MCHC (31.0-35.0) g/dl RDW (11.0-16.0) % Plt Count (160-400) X10*3/uL MPV (9.4-12.3) fL Immature Gran % (Auto) (0.0-0.4) % Neut % (Auto) (45-73) % Lymph % (Auto) (20-40) % Canyon % (Auto) (2-11) % Eos % (Auto) (0-4) % Baso % (Auto) (0-2) % Lymph # (Auto) (1.2-4.9) X10*3/uL [place] # (Auto) (0.1-1.2) X10*3/uL Eos # (Auto) (0.0-0.4) X10*3/uL Baso # (Auto) (0.0-0.2) X10*3/uL Abs Immat Gran (auto) (0.00-0.03) X10*3/uL Absolute Neuts (auto) (2.0-8.3) x10*3/uL Absolute Nucleated RBC (0.0-0.012) X10*3/uL Nucleated RBC % (auto) (0.0-0.2) /100WBC PT (10.0-13.1) SEC INR (0.9-1.1) Sodium (135-145) mmol/L Potassium (3.3-5.1) mmol/L Chloride (96-108) mmol/L Carbon Dioxide (22-29) mmol/L Anion Gap (12-20) BUN (9-16) mg/dL Creatinine (0.5-1.4) mg/dL Estim Creat Clear Calc Estimated GFR Random Glucose (60-115) mg/dL Calcium (8.4-10.2) mg/dL Total Bilirubin (0.0-1.0) mg/dL AST (5-31) U/L ALT (0-31) U/L Alkaline Phosphatase (39-117) U/L Troponin I High Sens 17.1 H D (<3.5-17.0) ng/L Total Protein (6.5-8.0) g/dL Albumin (3.5-5.0) g/dL Urine Color Urine Appearance Urine pH (5.0-9.0) Ur Specific [place] (1.005-1.025) Urine Protein (Neg-Trace) mg/dL Urine Glucose (UA) (Negative) mg/dL Urine Ketones (Negative) mg/dL Urine Blood (Negative) Urine Nitrite (Negative) Ur Leukocyte Esterase (Negative) COVID-19 ([facility]) Negative (Negative) COVID-19 Clin Com See Note Influenza Type A ([facility]) Negative (Negative) Influenza Type B ([facility]Y) Negative (Negative) Influenza A & B Note See Note 05/13/22 Range/Units 13:23 WBC (4.8-10.8) X10*3/uL RBC (4.20-5.50) X10*6/uL Hgb (12.0-16.0) g/dl Hct (37.0-47.0) % MCV (80.0-98.0) fL MCH (27.0-33.0) pg MCHC (31.0-35.0) g/dl RDW (11.0-16.0) % Plt Count (160-400) X10*3/uL MPV (9.4-12.3) fL Immature Gran % (Auto) (0.0-0.4) % Neut % (Auto) (45-73) % Lymph % (Auto) (20-40) % [place] % (Auto) (2-11) % Eos % (Auto) (0-4) % Baso % (Auto) (0-2) % Lymph # (Auto) (1.2-4.9) X10*3/uL [place] # (Auto) (0.1-1.2) X10*3/uL Eos # (Auto) (0.0-0.4) X10*3/uL Baso # (Auto) (0.0-0.2) X10*3/uL Abs Immat Gran (auto) (0.00-0.03) X10*3/uL Absolute Neuts (auto) (2.0-8.3) x10*3/uL Absolute Nucleated RBC (0.0-0.012) X10*3/uL Nucleated RBC % (auto) (0.0-0.2) /100WBC PT (10.0-13.1) SEC INR (0.9-1.1) Sodium (135-145) mmol/L Potassium (3.3-5.1) mmol/L Chloride (96-108) mmol/L Carbon Dioxide (22-29) mmol/L Anion Gap (12-20) BUN (9-16) mg/dL Creatinine (0.5-1.4) mg/dL Estim Creat Clear Calc Estimated GFR Random Glucose (60-115) mg/dL Calcium (8.4-10.2) mg/dL Total Bilirubin (0.0-1.0) mg/dL AST (5-31) U/L ALT (0-31) U/L Alkaline Phosphatase (39-117) U/L Troponin I High Sens (<3.5-17.0) ng/L Total Protein (6.5-8.0) g/dL Albumin (3.5-5.0) g/dL Urine Color Yellow Urine Appearance Clear Urine pH 6.5 (5.0-9.0) Ur Specific [place] 1.010 (1.005-1.025) Urine Protein Trace (Neg-Trace) mg/dL Urine Glucose (UA) 500 H (Negative) mg/dL Urine Ketones Negative (Negative) mg/dL Urine Blood Negative (Negative) Urine Nitrite Negative (Negative) Ur Leukocyte Esterase Negative (Negative) COVID-19 ([facility]) (Negative) COVID-19 Clin Com Influenza Type A ([facility]) (Negative) Influenza Type B ([facility]Y) (Negative) Influenza A & B Note Independent Interpretation I performed an independent interpretation of an: EKG Interpretation: Normal sinus rhythm, HR-67, no STEMI, GA/QRS/QTC are within normal limits. Radiology Impression Radiologist Impression: My interpretation is in agreement with radiology's impression of the imaging studies. Discharge Plan Discharge Clinical Impression: Fall Patient Disposition: Home, Self-Care Instructions: Fall Prevention for Older Adults (ED) Additional Instructions: 1. Resume all home medications as prescribed. 2. Please follow-up with your primary care provider in the next 2-3 days. Return to the ER for worsening symptoms. Prescriptions: No Action fluticasone propionate 50 mcg/actuation spray,suspension 1 spray intranasal DAILY 90 Days Qty: 16 3RF Rx Instructions: administer into each nostril sennosides [senna] 8.6 mg tablet 17.2 mg PO BEDTIME 90 Days Qty: 180 3RF cholecalciferol (vitamin D3) 50 mcg (2,000 unit) tablet 2,000 unit PO DAILY 90 Days Qty: 90 3RF metformin 1,000 mg tablet 1,000 mg PO BID 90 Days Qty: 180 3RF docusate sodium [DOK] 100 mg capsule 100 mg PO BID PRN (Reason: constipation) 90 Days Qty: 180 2RF cyanocobalamin (vitamin B-12) 1,000 mcg tablet 1,000 mcg PO DAILY 90 Days Qty: 90 3RF fenofibrate 160 mg tablet 160 mg PO DAILY 90 Days Qty: 90 3RF loratadine 10 mg tablet 10 mg PO DAILY 90 Days Qty: 90 0RF Xarelto 20 mg tablet 20 mg PO QPM 30 Days Qty: 30 5RF Hold Instructions: Resume on 12/02/21. [id number] [Fioricet] 50-300-40 mg capsule 1 cap PO Q8H PRN (Reason: headache) Qty: 10 0RF trazodone 100 mg tablet 100 mg PO BEDTIME PRN (Reason: sleep) 90 Days Qty: 90 1RF escitalopram oxalate [Lexapro] 10 mg tablet 10 mg PO DAILY 90 Days Qty: 90 1RF (DME) OneTouch Verio test strips Strip See Rx Instructions .Route Qty: 100 5RF Rx Instructions: Use 1 test strip twice a day Tresiba FlexTouch U-100 100 unit/mL (3 mL) insulin pen 6 unit subcut DAILY 90 Days Qty: 5.4 3RF thiamine HCl (vitamin B1) 100 mg tablet 100 mg PO DAILY 90 Days Qty: 90 1RF baclofen 10 mg tablet 5 mg PO TID PRN (Reason: muscle pain) 90 Days Qty: 135 0RF Trulicity 3 mg/0.5 mL pen injector 3 mg subcut QWEEK 90 Days Qty: 6.5 3RF atenolol 50 mg tablet 50 mg PO DAILY 90 Days Qty: 90 3RF losartan 25 mg tablet 25 mg PO DAILY 90 Days Qty: 90 0RF hydroxychloroquine [Plaquenil] 200 mg tablet 200 mg PO BID Qty: 180 3RF doxycycline hyclate 100 mg capsule 100 mg PO BID 5 Days Qty: 10 0RF oxycodone 5 mg tablet 5 mg PO Q6H PRN (Reason: pain) 30 Days Qty: 120 0RF furosemide 40 mg tablet 40 mg PO DAILY 90 Days Qty: 90 0RF ferrous sulfate 325 mg (65 mg iron) tablet 325 mg PO DAILY 90 Days Qty: 90 1RF omeprazole 40 mg capsule,delayed release(DR/EC) 40 mg PO DAILY Qty: 30 0RF fesoterodine 8 mg tablet extended release 24 hr 8 mg PO DAILY Qty: 30 6RF ropinirole 0.25 mg tablet 1 tab PO BEDTIME estradiol 0.01 % (0.1 mg/gram) cream 1 appl vaginal 3XW ketoconazole 2 % cream 1 appl topical BID (DME) pen needle, diabetic [BD Meghan 2nd Gen Pen Needle] 32 gauge x 5/32 needle MISCELLANEOUS DAILY Jardiance 25 mg tablet 1 tab QAM ondansetron 4 mg tablet,disintegrating 4 mg PO Q6-8H PRN (Reason: nausea and vomiting) Qty: 14 0RF rosuvastatin [Crestor] 40 mg tablet 40 mg PO BEDTIME aspirin 81 mg tablet,delayed release (DR/EC) 1 tab PO DAILY Hold Instructions: Resume on 01/26/22. Hold aspirin and all NSAIDs including ibuprofen Motrin for 8 weeks gabapentin 800 mg tablet 800 mg PO TID 90 Days Qty: 270 3RF magnesium 200 mg tablet 200 mg PO DAILY 90 Days Qty: 90 1RF riboflavin (vitamin B2) 400 mg tablet 400 mg PO DAILY Qty: 30 0RF (DME) hospital bed Kit See Rx Instructions .Route Qty: 1 0RF Rx Instructions: As directed Myrbetriq 50 mg tablet extended release 24 hr 50 mg PO DAILY Qty: 30 0RF Referrals: Marla Henderson MD [Primary Care Provider] -
== END 2022-05-13 15:03 | disposition home or self-care (01) ==
PROVIDERS: Emergency Provider Student in an Organized Health Care Education/Training Program; PCP Internal Medicine
DX: Z71.1 Person with feared health complaint in whom no diagnosis is made (principal); Z91.81 History of falling; E11.9 Type 2 diabetes mellitus without complications; I11.0 Hypertensive heart disease with heart failure; I50.9 Heart failure, unspecified; E78.5 Hyperlipidemia, unspecified; I48.0 Paroxysmal atrial fibrillation; Z96.82 Presence of neurostimulator; Z86.73 Personal history of transient ischemic attack (TIA), and cerebral infarction without residual deficits; Z79.899 Other long term (current) drug therapy; Z79.84 Long term (current) use of oral hypoglycemic drugs; Z79.01 Long term (current) use of anticoagulants; Z79.85 Long-term (current) use of injectable non-insulin antidiabetic drugs; Z79.02 Long term (current) use of antithrombotics/antiplatelets; Z79.82 Long term (current) use of aspirin; Z20.822 Contact with and (suspected) exposure to COVID-19
CPT/HCPCS: 36415; 70450; 71045; 72125; 80053; 81003; 84484; 85025; 85610; 87502; 87635; 93005; 99284; 99285

== ENCOUNTER 2022-05-20 09:32 | Outpatient (REF) | payer MEDICARE, SELFPAY ==
--- NOTE | ~2022-05-20 | XR_ITS ---
EXAMINATION: XR LUMBOSACRAL SPINE CLINICAL INFORMATION: Back pain. COMPARISON: CT Scan on the lumbar spine dated 10/14/2021. TECHNIQUE: Three views of the lumbosacral spine. FINDINGS: There is generalized osteopenia. Mild to moderate multilevel degenerative changes are seen with prominent multilevel marginal osteophyte formation and facet arthropathy. Heterogeneous osteopenia is noted. The soft tissues are unremarkable. Surgical overlie the right upper quadrant. Left-sided spinal stimulator device in place. XR/XR lumbar spine 2-3V IMPRESSION: Multilevel degenerative changes and heterogeneity similar to the previous lumbar spine CT scan. Please refer to the report from that study for more detailed findings.
== END 2022-05-20 09:33 | disposition home or self-care (01) ==
LOC: HO.XRAY 09:32
PROVIDERS: PCP Internal Medicine; Visit Provider Internal Medicine
DX: M54.16 Radiculopathy, lumbar region (principal)
CPT/HCPCS: 72100

== ENCOUNTER → 2022-05-22 15:26 | Outpatient (BNVA) | payer MEDICARE, SELFPAY | PROVIDERS: PCP Internal Medicine; Visit Provider Anesthesiology | DX: M17.11 Unilateral primary osteoarthritis, right knee (principal); M47.812 Spondylosis without myelopathy or radiculopathy, cervical region; M48.00 Spinal stenosis, site unspecified | CPT/HCPCS: 99212 ==

== ENCOUNTER 2022-05-27 12:21 | Outpatient (REF) | payer MEDICARE, SELFPAY ==
--- NOTE | ~2022-05-27 | US_ITS ---
EXAMINATION: US RETROPERITONEAL LIMITED (RENAL ONLY) CLINICAL INFORMATION: Urge incontinence. COMPARISON: CT abdomen and pelvis with contrast 07/31/2018 TECHNIQUE: Real-time imaging of the kidneys. Technically limited study secondary to body habitus. FINDINGS: RIGHT KIDNEY: 10.2 x 5.3 x 4.9 cm (SAG x AP x TRV). The kidney is normal in size, contour, and echogenicity. Renal cortical thickness is normal. No calculi or focal parenchymal lesions. No hydronephrosis. Slightly prominent right extrarenal pelvis seen on the CT in 2019 as well. LEFT KIDNEY: 11.2 x 6.0 x 4.6 cm (SAG x AP x TRV). The kidney is normal in size and echogenicity. Renal cortical thickness is normal. No calculi or focal parenchymal lesions. No hydronephrosis. There is a lobular renal contour. The appearance is similar to the prior CT scan 07/31/2018 US/US renal BI IMPRESSION: No acute findings. No hydronephrosis..
== END 2022-05-27 12:22 | disposition home or self-care (01) ==
LOC: HO.US 12:21
PROVIDERS: PCP Internal Medicine; Visit Provider Urology
DX: N39.41 Urge incontinence (principal); N32.81 Overactive bladder
CPT/HCPCS: 76775

== ENCOUNTER → 2022-06-03 10:25 | Outpatient (BNVA) | payer MEDICARE, SELFPAY | PROVIDERS: PCP Internal Medicine; Visit Provider Urology | DX: N32.81 Overactive bladder (principal); N39.41 Urge incontinence | CPT/HCPCS: 51798; 99212 ==

== ENCOUNTER 2022-06-14 09:52 | Outpatient (REF) | payer MEDICARE, SELFPAY ==
[2022-06-14 10:45] LABS: Influenza A PCR NEGATIVE (Negative); Influenza B PCR NEGATIVE (Negative); Resp Syncy Virus RNA Qual PCR NEGATIVE (Negative); SARS COV2 PCR INHOUSE NEGATIVE (Negative)
== END 2022-06-14 09:53 | disposition home or self-care (01) ==
LOC: HO.LAB 09:52
PROVIDERS: Visit Provider Internal Medicine
DX: R09.89 Other specified symptoms and signs involving the circulatory and respiratory systems (principal); Z20.822 Contact with and (suspected) exposure to COVID-19
CPT/HCPCS: 0241U

== ENCOUNTER 2022-06-24 14:54 | Outpatient (REF) | payer MEDICARE, SELFPAY ==
--- NOTE | ~2022-06-24 | US_ITS ---
EXAMINATION: US EXTRACRANIAL CAROTID DUPLEX, BILATERAL CLINICAL INFORMATION: Carotid stenosis. COMPARISON: Carotid ultrasound 04/26/2020. CTA neck 07/11/2020. TECHNIQUE: Real-time ultrasound and Doppler techniques (integrating B-mode 2-D vascular images, Doppler spectral analysis and color-flow Doppler imaging) were utilized to interrogate the extracranial carotid arteries, the vertebral arteries and proximal subclavian arteries bilaterally. The degree of stenosis is determined by criteria similar to NASCET. FINDINGS: Right Side: 1. There is moderate atherosclerotic plaque seen in the bifurcation/proximal ICA region. 2. The common carotid artery PSV proximally is 116 cm/s and distally 41 cm/s. 3. The proximal internal carotid artery velocities are 186 cm/s systolic and 44 cm/s diastolic. The internal carotid artery is very tortuous and takes a retropharyngeal course on prior CTA which limits evaluation with ultrasound. The mid and distal segments are not well seen and velocities can't be measured. This is similar to the prior carotid ultrasound 04/26/2020 and subsequent CTA of the neck showed no occlusion of the artery. 4. The proximal external carotid artery PSV is 114 cm/s. 5. The vertebral artery shows antegrade flow. 6. The subclavian artery waveforms are normal. Left Side: 1. There is moderate atherosclerotic plaque seen in the bifurcation/proximal ICA region. 2. The common carotid artery PSV proximally is 132 cm/s and distally 61 cm/s. There is a moderate near 50% stenosis of the distal common carotid artery. 3. The proximal internal carotid artery velocities are 50 cm/s systolic and 13 cm/s diastolic. 4. The proximal external carotid artery PSV is 141 cm/s. 5. The vertebral artery shows antegrade flow. 6. The subclavian artery waveforms are normal. US/US carotid duplex BI IMPRESSION: 1. RIGHT: Limited visualization of the internal carotid artery due to a tortuous and retropharyngeal course seen on prior CTA. There is moderate atherosclerotic plaque at the bifurcation with velocities suggesting 50-79% stenosis, similar to the prior ultrasound when subsequent CTA neck showed mild less than 50% stenosis. The sonographic appearance is stable and likely over categorizes the severity of disease. 2. LEFT: Minimal, non-hemodynamically significant stenosis of the proximal left internal carotid artery corresponding to a 0-49% stenosis by velocity criteria. 3. As discussed above, likely no significant change when compared to prior ultrasound. 4. Approximate 50% stenosis of the distal left common carotid artery.
== END 2022-06-24 14:55 | disposition home or self-care (01) ==
LOC: HO.US 14:54
PROVIDERS: Visit Provider Internal Medicine
DX: I65.23 Occlusion and stenosis of bilateral carotid arteries (principal); I63.9 Cerebral infarction, unspecified
CPT/HCPCS: 93880

== ENCOUNTER 2022-07-18 11:03 | Inpatient (IN) | payer MEDICARE, SELFPAY ==
[2022-07-18] VITALS (8 sets, daily range): BP systolic 95–171; BP diastolic 57–86; PULSE 70–143; RESP 18–22; TEMP 36.6–36.7; O2SAT 93–98; BMI 37.2
--- NOTE | 2022-07-18 | ECG_ITS ---
Test Reason : RHYTHM CHANGE Blood Pressure : / mmHG Vent. Rate : 070 BPM Atrial Rate : 070 BPM P-R Int : 186 ms QRS Dur : 100 ms QT Int : 414 ms P-R-T Axes : 027 082 021 degrees QTc Int : 447 ms Normal sinus rhythm Minimal voltage criteria for LVH, may be normal variant ( Brayan product ) Inferior infarct , age undetermined Abnormal ECG When compared with ECG of 18-JUL-2022 11:17, Sinus rhythm has replaced Atrial fibrillation Referred By: Scott Moya Electronically Signed By:KEAGAN MONACO
--- NOTE | ~2022-07-18 | XR_ITS ---
EXAMINATION: XR CHEST CLINICAL INFORMATION: Chest pain COMPARISON: 05/13/2022 TECHNIQUE: 2 views of the chest were obtained. FINDINGS: No significant abnormality is noted involving the heart, lungs, mediastinum, bony thorax or soft tissues. Some minimal basilar atelectasis is seen. Spinal stimulator a level just below the mari. XR/XR chest 2V IMPRESSION: No acute intrathoracic disease.
--- NOTE | ~2022-07-18 | XR_ITS ---
EXAMINATION: XR KNEE, LEFT CLINICAL INFORMATION: Left knee pain after injury COMPARISON: Left knee 03/19/2021 TECHNIQUE: 2 views of the left knee. FINDINGS: Again noted are tricompartmental degenerative changes in the left knee with chondrocalcinosis involving the lateral meniscus. No fractures are seen. No joint effusion is present. When comparison is made to study from 03/19/2021, there has been no interval change. XR/XR knee LT 2V IMPRESSION: Tricompartmental degenerative changes with chondrocalcinosis. No acute finding.
--- NOTE | ~2022-07-18 | CT_ITS ---
EXAMINATION: CT HEAD WITHOUT CONTRAST CLINICAL INFORMATION: Persistent headache. On Xarelto. COMPARISON: CT head 05/13/2022. TECHNIQUE: Contiguous axial imaging was performed from the skull base to vertex without intravenous administration of contrast. This CT examination was performed using dose optimization techniques as appropriate, variously including the following: *Automated exposure control *Adjustment of mA and/or kV according to patient size (this includes techniques or standardized protocols for targeted exams where dose is matched to indication/reason for exam; i.e. extremities or head) *Use of iterative reconstruction technique DLP: 688 mGy-cm FINDINGS: There is no acute intracranial hemorrhage or abnormal extra-axial collection. No intracranial mass effect or hydrocephalus. There chronic changes of an old lacunar infarct or hemorrhage with asymmetric loss of parenchymal volume within the left putamen and left caudate body. Numerous foci of hypoattenuation are also visualized within the periventricular white matter that most likely represent chronic changes of small vessel ischemia. The calvarium and skull base are intact. Mastoid air cells and middle ear cavities are well aerated. No active paranasal sinus disease. CT/CT head/brain wo IV con IMPRESSION: There are chronic changes of an old lacunar infarct or hemorrhage with asymmetric loss of parenchymal volume within the left putamen and left caudate body. Numerous chronic small vessel ischemic changes are also visualized within the periventricular white matter. No evidence of acute territorial infarct or hemorrhage.
--- NOTE | 2022-07-18 11:08 | ED_ITS ---
HPI - Arrhythmia/Palpitations General Chief Complaint: Arrhythmia/Palpitations <Vy Gonzalez CNP - Last Filed: 07/18/22 11:14> Stated Complaint: Fast heart rate/Lightheaded <Vy Gonzalez CNP - Last Filed: 07/18/22 11:14> Time Seen by Provider: 07/18/22 13:30 <Vy Gonzalez CNP - Last Filed: 07/18/22 11:14> Source: patient <Rajwinder Plummre NP - Last Filed: 07/18/22 17:42> Mode of arrival: ambulatory <Rajwinder Plummer NP - Last Filed: 07/18/22 17:42> Limitations: no limitations <Rajwinder Plummer NP - Last Filed: 07/18/22 17:42> History of Present Illness HPI narrative: 71-year-old female with a past medical history of hypertension, hyperlipidemia, diabetes, coronary artery disease, AFib on Xarelto, CKD, CHF, insomnia, sleep apnea, anxiety, depression, pulmonary hypertension, 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 Patient reports 1 week ago she hit her shoe on [place] causing her to lose her balance falling forward hitting her head on the wall and left knee. Patient denies loss of consciousness. She reports over the last 1 week she has been feeling quite lightheaded and weak when walking around. She has also had intermittent headaches. Today while eating her breakfast around 08:30 patient started complaining of palpitations and chest tightness. Patient reports these symptoms feel better. Patient went to walk-in clinic and was referred into the ER for further evaluation. <Rajwinder Plummer NP - Last Filed: 07/18/22 17:42> Related Data Home Medications: Home Medications Medication Instructions Recorded Confirmed empagliflozin 25 mg tablet 1 tab QAM 11/13/21 06/03/22 (Jardiance) estradiol 0.01% (0.1 mg/gram) 1 appl vaginal 3XW 11/13/21 06/03/22 vaginal cream pen needle, diabetic 32 gauge x 11/13/21 06/03/22 (BD Meghan 2nd Gen Pen Needle) ropinirole 0.25 mg tablet 1 tab PO BEDTIME 11/13/21 06/03/22 rosuvastatin 40 mg tablet (Crestor) 40 mg PO BEDTIME 11/26/21 06/03/22 Previous Rx's Medication Instructions Recorded riboflavin (vitamin B2) 400 mg 400 mg PO DAILY #30 tabs 06/22/21 tablet docusate sodium 100 mg capsule 100 mg PO BID PRN constipation 90 07/31/21 (DOK) days #180 caps metformin 1,000 mg tablet 1,000 mg PO BID 90 days #180 tabs 07/31/21 fenofibrate 160 mg tablet 160 mg PO DAILY 90 days #90 tabs 09/28/21 loratadine 10 mg tablet 10 mg PO DAILY 90 days #90 tabs 11/19/21 rivaroxaban 20 mg tablet (Xarelto) 20 mg PO QPM 30 days #30 tabs 11/21/21 ondansetron 4 mg disintegrating 4 mg PO Q6-8H PRN nausea and 12/12/21 tablet vomiting #14 tabs zbuwfarsfp-hvqdejuwmiznz-opshbkrf 1 cap PO Q8H PRN headache #10 caps 12/13/21 50 mg-300 mg-40 mg capsule (Fioricet) trazodone 100 mg tablet 100 mg PO BEDTIME PRN sleep 90 01/01/22 days #90 tabs insulin degludec 100 unit/mL (3 6 unit (0.06 mL) subcut DAILY 90 01/22/22 mL) subcutaneous pen (Tresiba days #5.4 mL FlexTouch U-100 insulin) magnesium 200 mg tablet 200 mg PO DAILY 90 days #90 tabs 01/22/22 thiamine HCl (vitamin B1) 100 mg 100 mg PO DAILY 90 days #90 tabs 02/03/22 tablet atenolol 50 mg tablet 50 mg PO DAILY 90 days #90 tabs 03/22/22 dulaglutide 3 mg/0.5 mL 3 mg (0.5 mL) subcut QWEEK 90 days 03/22/22 subcutaneous pen injector #6.5 mL (Trulicity) losartan 25 mg tablet 25 mg PO DAILY 90 days #90 tabs 04/02/22 hydroxychloroquine 200 mg tablet 200 mg PO BID #180 tabs 04/03/22 (Plaquenil) furosemide 40 mg tablet 40 mg PO DAILY 90 days #90 tabs 04/15/22 ferrous sulfate 325 mg (65 mg 325 mg PO DAILY 90 days #90 tabs 05/02/22 iron) tablet fesoterodine 8 mg tablet,extended 8 mg PO DAILY #30 tabs 05/02/22 release 24 hr omeprazole 40 mg capsule,delayed 40 mg PO DAILY #30 caps 05/02/22 release fluticasone propionate 50 1 spray intranasal DAILY 90 days 05/21/22 mcg/actuation nasal #16 grams spray,suspension baclofen 10 mg tablet 10 mg PO TID PRN muscle spasm 30 05/30/22 days #90 tabs mirabegron 50 mg tablet,extended 50 mg PO DAILY 90 days #90 tabs 06/04/22 release 24 hr (Myrbetriq) blood sugar diagnostic (OneTouch #100 ea 06/12/22 Verio test strips) blood-glucose meter (OneTouch #1 ea 06/12/22 Verio Meter) lancets (OneTouch UltraSoft #100 ea 06/12/22 Lancets) oxycodone 5 mg tablet 5 mg PO Q6H PRN pain 30 days #120 06/14/22 tabs cholecalciferol (vitamin D3) 50 2,000 unit PO DAILY 90 days #90 06/19/22 mcg (2,000 unit) tablet tabs sennosides 8.6 mg tablet (senna) 17.2 mg PO BEDTIME 90 days #180 06/19/22 tabs cyanocobalamin (vitamin B-12) 1,000 mcg PO DAILY 90 days #90 tabs 07/11/22 1,000 mcg tablet gabapentin 600 mg tablet 600 mg PO TID 90 days #270 tabs 07/11/22 escitalopram oxalate 10 mg tablet 10 mg PO DAILY 90 days #90 tabs 07/12/22 (Lexapro) ketoconazole 2 % topical cream 1 appl topical BID 30 days #30 07/13/22 grams <Vy Gonzalez, SHY - Last Filed: 07/18/22 11:14> Allergies/Adverse Reactions: Allergies Allergy/AdvReac Type Severity Reaction Status Date / Time morphine [Morphine] Allergy Severe ITCHING, Verified 07/18/22 10:41 hives cefdinir Allergy Intermediate hives Verified 07/18/22 10:41 sulfamethoxazole Allergy Intermediate RASH Verified 07/18/22 10:41 trimethoprim Allergy Intermediate RASH Verified 07/18/22 10:41 duloxetine AdvReac Severe altered Verified 07/18/22 10:41 behavior betina AdvReac Mild RUNNY NOSE Verified 07/18/22 10:41 mustard AdvReac Mild RUNNY NOSE Verified 07/18/22 10:41 potato [POTATO] AdvReac Mild ITCHY NOSE Verified 07/18/22 10:41 soybean AdvReac Mild RUNNY NOSE Verified 07/18/22 10:41 <Vy Gonzalez, [employer]ACLE [employer]BIEE DEVELOPER - Last Filed: 07/18/22 11:14> Review of Systems Review of Systems: Yes all other systems are reviewed and are negative <Rajwinder Plummer NP - Last Filed: 07/18/22 17:42> Constitutional: Constitutional: Reports no additional constitutional complaints, Denies body ache(s), Denies chills, Denies fever(s), Reports headache(s) and Reports weakness <Rajwinder Plummer NP - Last Filed: 07/18/22 17:42> Eyes: Eyes: Reports no additional eye complaints and Denies change in vision <Rajwinder Plummer NP - Last Filed: 07/18/22 17:42> ENT: Reports system reviewed and no additional complaints, except as documented, Reports dizziness, Reports headache(s), Denies nasal congestion, Denies nasal discharge and Denies neck pain <Rajwinder Plummer NP - Last Moise ed: 07/18/22 17:42> Cardiovascular: Cardiovascular: Reports no additional cardiovascular complaints, Reports chest pain, Denies leg edema, Reports palpitations and Denies dyspnea <Rajwinder Plummer NP - Last Filed: 07/18/22 17:42> Respiratory: Respiratory: Reports no additional respiratory complaints, Denies cough and Denies dyspnea <Rajwinder Plummer NP - Last Filed: 07/18/22 17:42> Gastrointestinal: Gastrointestinal: Reports no additional gastrointestinal complaints, Denies abdominal pain, Denies diarrhea, Denies nausea and Denies vomiting <Rajwinder Plummer NP - Last Filed: 07/18/22 17:42> Genitourinary: Genitourinary: Reports no additional female genitourinary complaints and Denies urinary incontinence <Rajwinder Plummer NP - Last Filed: 07/18/22 17:42> Musculoskeletal: Musculoskeletal: Reports no additional musculoskeletal complaints, Denies back pain, Reports arthralgias, Denies joint swelling, Denies neck pain, Denies numbness and Denies tingling <Rajwinder Plummer NP - Last Filed: 07/18/22 17:42> Integumentary/Breasts: Skin/Breast: Reports system reviewed and no additional complaints, except as docu and Denies rash <Rajwinder Plummer NP - Last Filed: 07/18/22 17:42> Neurologic: Reports system reviewed and no additional complaints, except as documented, Denies Abnormal speech present, Reports dizziness, Reports headache(s), Denies numbness, Denies tingling and Reports weakness <Rajwinder Plummer NP - Last Filed: 07/18/22 17:42> Endocrine: Endocrine: Reports palpitations <Rajwinder Plummer NP - Last Filed: 07/18/22 17:42> [facility] Past Medical History Attestation statement: The following information was validated with the patient. <Rajwinder Plummer NP - Last Filed: 07/18/22 17:42> Source: old records reviewed and nursing notes reviewed <Rajwinder Plummer NP - Last Filed: 07/18/22 17:42> Medical History: Medical History Acute upper GI bleed Anemia Atherosclerotic cardiovascular disease Chronic heart failure with preserved ejection fraction (HFpEF) CVA (cerebral vascular accident) Diabetes mellitus Diabetes type 2, uncontrolled Diabetic neuropathy Diabetic polyneuropathy Dizziness Dyslipidemia Essential hypertension Falls Hand pain Head injury Headache Hospital discharge follow-up Iron deficiency anemia Ischemic stroke Left hand pain Left hip pain Left knee pain Left shoulder pain Lumbar degenerative disc disease Obesity due to excess calories Other and unspecified hyperlipidemia Paroxysmal atrial fibrillation PONV (postoperative nausea and vomiting) Proteinuria Pulmonary hypertension Pure hypercholesterolemia Thiamine deficiency Thrombus 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 Urge urinary incontinence <Vy Gonzalez CNP - Last Filed: 07/18/22 11:14> Surgical History: Surgical History H/O colonoscopy History of Mohs micrographic surgery for skin cancer History of partial hysterectomy Hx of cardiac cath Hx of cervical spine surgery <Vy Gonzalez CNP - Last Filed: 07/18/22 11:14> Family History Family History: Family History Father Rectal cancer Hypertension Arthritis of knee CVD (cardiovascular disease) Mother Hypertension CVD (cardiovascular disease) Myocardial infarction Diabetes <Vy Gonzalez CNP - Last Filed: 07/18/22 11:14> Social History Social History: Social History Household Members: Spouse Housing: House Are you a primary post acute care nurse to a significant other at home: No Do you presently have visiting nurse or other home services: No Alcohol intake: never Patient Tobacco Use Status: Former Tobacco user Quit Date: 1993 Tobacco use type: Cigarette Smoked in Last 30 Days: No e-Cigarette/Vaping Use: Never Used Second Hand Smoke Exposure: No Use of substances other than those prescribed or required for medical reasons: No Advance Directives: Yes Advance Directives on File: Yes Advance Directives Date on File: 07/17/20 service: No Current occupational status: retired Current occupation: Lt handed Cognitive needs: Yes (scodor/walker) Hearing needs: No Vision needs: Yes (glasses) <Vy Gonzalez CNP - Last Filed: 07/18/22 11:14> Physical Exam Vital Signs: Vital Signs: Last Vital Signs Temp 98.1 F 07/18/22 12:27 Pulse 113 H 07/18/22 14:39 Resp 22 H 07/18/22 14:39 BP 104/65 07/18/22 14:39 Pulse Ox 95 07/18/22 14:39 O2 Del Method 07/18/22 14:39 BMI result Body Mass Index 37.2 <Vy Gonzalez CNP - Last Filed: 07/18/22 11:14> Vital Signs: Last Vital Signs Temp 98.1 F 07/18/22 12:27 Pulse 113 H 07/18/22 14:39 Resp 22 H 07/18/22 14:39 BP 104/65 07/18/22 14:39 Pulse Ox 95 07/18/22 14:39 O2 Del Method 07/18/22 14:39 BMI result Body Mass Index 37.2 <Rajwinder Plummer NP - Last Filed: 07/18/22 17:42> Const: General: cooperative, healthy appearing, comfortable and no acute distress <Rajwinder Plummer NP - Last Filed: 07/18/22 17:42> Orientation/consciousness: patient oriented x3 <Rajwinder Plummer MECHANICAL SERVICE TECHNICIAN - Last Filed: 07/18/22 17:42> Limitations: no limitations <Rajwinder Plummer MECHANICAL SERVICE TECHNICIAN - Last Filed: 07/18/22 17:42> HEENT: Head: Yes normal to inspection <Rajwinder Plummer MECHANICAL SERVICE TECHNICIAN - Last Filed: 07/18/22 17:42> Ears: hearing grossly normal bilaterally <Rajwinder Plummer MECHANICAL SERVICE TECHNICIAN - Last Filed: 07/18/22 17:42> General nose exam: Normal external nose present <Rajwinder Plummer MECHANICAL SERVICE TECHNICIAN - Last Filed: 07/18/22 17:42> Face and sinus: Yes normal facial exam <Rajwinder Plummer NP - Last Filed: 07/18/22 17:42> Mouth: Normal oral and palatal mucosa present <Rajwinder Plummer MECHANICAL SERVICE TECHNICIAN - Last Filed: 07/18/22 17:42> Throat: Yes posterior oropharynx normal <Rajwinder Plummer MECHANICAL SERVICE TECHNICIAN - Last Filed: 07/18/22 17:42> Eyes: General: appearance normal, both eyes and all related structures <Rajwinder Plummer MECHANICAL SERVICE TECHNICIAN - Last Filed: 07/18/22 17:42> Pupils: Equal, round and reactive pupils present <Rajwinder Plummer NP - Last Filed: 07/18/22 17:42> Neck: Neck: Yes normal visual inspection <Rajwinder Plummer MECHANICAL SERVICE TECHNICIAN - Last Filed: 07/18/22 17:42> Chest: Chest palpation & inspection: normal inspection of the chest <Rajwinder Plummer MECHANICAL SERVICE TECHNICIAN - Last Filed: 07/18/22 17:42> Resp: Effort & Inspection: normal respiratory effort <Rajwinder Plummer MECHANICAL SERVICE TECHNICIAN - Last Filed: 07/18/22 17:42> Auscultation: clear to auscultation bilaterally <Rajwinder Plummer MECHANICAL SERVICE TECHNICIAN - Last Filed: 07/18/22 17:42> Cardio: Rate: tachycardic <Rajwinder Plummer MECHANICAL SERVICE TECHNICIAN - Last Filed: 07/18/22 17:42> Rhythm: abnormal rhythm irregularly irregular <Rajwinder Plummer MECHANICAL SERVICE TECHNICIAN - Last Filed: 07/18/22 17:42> Peripheral pulses: Peripheral pulses 2+ throughout <Rajwinder Plummer MECHANICAL SERVICE TECHNICIAN - Last Filed: 07/18/22 17:42> GI: Inspection: Yes normal to inspection <Rajwinder Plummer MECHANICAL SERVICE TECHNICIAN - Last Filed: 07/18/22 17:42> Palpation (GI): Soft to palpation and nontender <Rajwinder Plummer MECHANICAL SERVICE TECHNICIAN - Last Filed: 07/18/22 17:42> Auscultation: normal bowel sounds <Rajwinder Plummer MECHANICAL SERVICE TECHNICIAN - Last Filed: 07/18/22 17:42> Back/Spine/Pelvis: Thoracic/Lumbar Spine: thoracic and lumbar spine normal to inspection <Rajwinder Plummer MECHANICAL SERVICE TECHNICIAN - Last Filed: 07/18/22 17:42> Skin: General skin exam: no rashes or lesions noted <Rajwinder Plummer MECHANICAL SERVICE TECHNICIAN - Last Filed: 07/18/22 17:42> Neuro: General: patient oriented x3, moves all extremities, no focal motor deficits and normal sensation to monofilament <Rajwinder Plummer MECHANICAL SERVICE TECHNICIAN - Last Filed: 07/18/22 17:42> Cranial nerves: Yes CN's II-XII intact bilaterally, Yes Equal, round and reactive pupils present, Yes Bilaterally intact EOM present, Yes Nystagmus not present, Yes Normal facial strength present and Yes Midline tongue present <Rajwinder Plummer MECHANICAL SERVICE TECHNICIAN - Last Filed: 07/18/22 17:42> Cognition (Neuro): normal cognition <Rajwinder Plummer MECHANICAL SERVICE TECHNICIAN - Last Filed: 07/18/22 17:42> Speech: No Abnormal speech present <Rajwinder Plummer NP - Last Filed: 07/18/22 17:42> Gait exam (Neuro): Normal gait present <Rajwinder Plummer NP - Last Filed: 07/18/22 17:42> Motor exam (neuro): 5/5 motor strength present throughout <Rajwinder Plummer NP - Last Filed: 07/18/22 17:42> Sensory Exam: Normal double simultaneous stimulation for sensation <Rajwinder Plummer NP - Last Filed: 07/18/22 17:42> Extrem: General: Yes normal to inspection, Yes no pedal edema and Yes no calf tenderness <Rajwinder Plummer NP - Last Filed: 07/18/22 17:42> Course Course Course Narrative: This is an RME: Additional HPI, ROS, PE not included below will be deferred to primary provider. Patient is a 72 old female who presents to emergency department for evaluation. Reports onset of palpitations at 0830 this morning while sitting and eating breakfast. Reports history of a-fib on Xarelto. Also c/o dizziness, lightheadedness, chest pain anterior radiating into her neck. Also she reports a fall 1 week ago with head strike, denies loss of consciousness. Since then she has had a persistent headache that is unresolved with Tylenol. She presented to urgent care today was advised to come to the emergency department. Plan: labs, EKG, viral testing, CT head <Vy Gonzalez, SHY - Last Filed: 07/18/22 11:14> Reevaluation(s) Reevaluation #1: +++orthostatics and patient feels quite symptomatic with heart rates up to 140's afib. Patient with significant history of CHF, pulmonary hypertension. Will give 500ml of NS and re-assess. Patient on atenolol only for rate control and took this morning. <Rajwinder Plummer NP - Last Filed: 07/18/22 17:42> Reevaluation #2: 1650-patient is still feeling quite symptomatic, lightheaded with movement and position changes with heart rates 115-140 afib with RVR. Patient will likely need med review, gently hydration and management of her heart rate. Will admit for further evaluation. <Rajwinder Plummer NP - Last Filed: 07/18/22 17:42> Medications Administered Discontinued Medications Generic Name Dose Route Start Last Admin Trade Name Freq PRN Reason Stop Dose Admin Sodium Chloride 500 mls @ 999 mls/hr 07/18/22 14:05 07/18/22 14:43 Ns IV 07/18/22 14:35 999 mls/hr .Q31M STA Administration <Vy Gonzalez CNP - Last Filed: 07/18/22 11:14> Medications Administered Discontinued Medications Generic Name Dose Route Start Last Admin Trade Name Freq PRN Reason Stop Dose Admin Sodium Chloride 500 mls @ 999 mls/hr 07/18/22 14:05 07/18/22 14:43 Ns IV 07/18/22 14:35 999 mls/hr .Q31M STA Administration <Rajwinder Plummer NP - Last Filed: 07/18/22 17:42> Medical Decision Making Medical Decision Making MDM Narrative: This is a 72-year-old female with an extensive medical history including AFib anticoagulated with Xarelto who presents to the emergency room with complaint of a mechanical fall which occurred approximately a week ago with a head strike and a left knee strike. There was no loss of consciousness. Patient feels since the fall she has had intermittent headaches, feeling lightheaded/dizzy, weak with walking around. Today had some chest tightness and palpitations which occurred at rest at 08:30. On arrival patient has a pulse of 120 which is irregularly irregular. All her other vital signs are normal. Her exam is benign.. No focal neurological finding Will obtain CT head, chest x-ray, EKG, labs, orthostatic vital sign <Rajwinder Plummer NP - Last Filed: 07/18/22 17:42> Differential Diagnosis Differential Diagnoses: The differential diagnosis associated with the presentation includes <Rajwinder Plummer NP - Last Filed: 07/18/22 17:42> ICH, concussion,acs, orthostatic hypotension, electrolyte abnormality, arrythymia less likely PE <Rajwinder Plummer NP - Last Filed: 07/18/22 17:42> Admission/Observation Consideration of admission/observation: Escalation of care including admission/observation considered <Rajwinder Plummer NP - Last Filed: 07/18/22 17:42> Symptomatic orthostatic hypotension with AFib with RVR with underlying history of congestive heart failure and pulmonary hypertension he will likely will need gentle hydration and med review. Patient will be admitted for further evaluation <Rajwinder Plummer NP - Last Filed: 07/18/22 17:42> Consult Healthcare Provider Management of the patient was discussed with: Hospitalist <Rajwinder Plummer NP - Last Filed: 07/18/22 17:42> 1730-Spoke to Deyanira NATION who accepted admission <Rajwinder Plummer NP - Last Filed: 07/18/22 17:42> Lab Data MDM Lab Attestation statement: I reviewed the patient's lab results. <Rajwinder Plummer NP - Last Filed: 07/18/22 17:42> Result Diagrams: 07/18/22 11:36 07/18/22 11:36 <Vy Gonzalez CNP - Last Filed: 07/18/22 11:14> Labs: Lab Results 07/18/22 07/18/22 07/18/22 Range/Units 11:36 11:36 11:36 WBC 8.0 (4.8-10.8) X10*3/uL RBC 4.48 (4.20-5.50) X10*6/uL Hgb 12.2 (12.0-16.0) g/dl Hct 38.3 (37.0-47.0) % MCV 85.5 (80.0-98.0) fL MCH 27.2 (27.0-33.0) pg MCHC 31.9 (31.0-35.0) g/dl RDW 17.3 H (11.0-16.0) % Plt Count 392 (160-400) X10*3/uL MPV 9.0 L (9.4-12.3) fL Immature Gran % (Auto) 0.4 (0.0-0.4) % Neut % (Auto) 65.5 (45-73) % Lymph % (Auto) 20.9 (20-40) % [place] % (Auto) 10.3 (2-11) % Eos % (Auto) 1.9 (0-4) % Baso % (Auto) 1.0 (0-2) % Lymph # (Auto) 1.7 (1.2-4.9) X10*3/uL [place] # (Auto) 0.8 (0.1-1.2) X10*3/uL Eos # (Auto) 0.2 (0.0-0.4) X10*3/uL Baso # (Auto) 0.1 (0.0-0.2) X10*3/uL Abs Immat Gran (auto) 0.03 (0.00-0.03) X10*3/uL Absolute Neuts (auto) 5.2 (2.0-8.3) x10*3/uL Absolute Nucleated RBC 0.000 (0.0-0.012) X10*3/uL Nucleated RBC % (auto) 0.0 (0.0-0.2) /100WBC PT 15.4 H (10.0-13.1) SEC INR 1.3 H (0.9-1.1) Sodium 140 (135-145) mmol/L Potassium 4.0 (3.3-5.1) mmol/L Chloride 104 (96-108) mmol/L Carbon Dioxide 25 (22-29) mmol/L Anion Gap 15 (12-20) BUN 22 H (9-16) mg/dL Creatinine 0.94 (0.5-1.4) mg/dL Estim Creat Clear Calc 57.6 Estimated GFR 58 Random Glucose 133 H (60-115) mg/dL Calcium 9.3 (8.4-10.2) mg/dL Total Bilirubin 0.5 (0.0-1.0) mg/dL AST 18 (5-31) U/L ALT 10 (0-31) U/L Alkaline Phosphatase 56 (39-117) U/L Troponin I High Sens (<3.5-17.0) ng/L Total Protein 6.3 L (6.5-8.0) g/dL Albumin 3.9 (3.5-5.0) g/dL COVID-19 ([facility]) (Negative) COVID-19 Clin Com Influenza Type A ([facility]) (Negative) Influenza Type B ([facility]) (Negative) Influenza A & B Note 03/02/0107/18/22 07/18/22 Range/Units 11:36 11:36 11:36 WBC (4.8-10.8) X10*3/uL RBC (4.20-5.50) X10*6/uL Hgb (12.0-16.0) g/dl Hct (37.0-47.0) % MCV (80.0-98.0) fL MCH (27.0-33.0) pg MCHC (31.0-35.0) g/dl RDW (11.0-16.0) % Plt Count (160-400) X10*3/uL MPV (9.4-12.3) fL Immature Gran % (Auto) (0.0-0.4) % Neut % (Auto) (45-73) % Lymph % (Auto) (20-40) % [place] % (Auto) (2-11) % Eos % (Auto) (0-4) % Baso % (Auto) (0-2) % Lymph # (Auto) (1.2-4.9) X10*3/uL [place] # (Auto) (0.1-1.2) X10*3/uL Eos # (Auto) (0.0-0.4) X10*3/uL Baso # (Auto) (0.0-0.2) X10*3/uL Abs Immat Gran (auto) (0.00-0.03) X10*3/uL Absolute Neuts (auto) (2.0-8.3) x10*3/uL Absolute Nucleated RBC (0.0-0.012) X10*3/uL Nucleated RBC % (auto) (0.0-0.2) /100WBC PT (10.0-13.1) SEC INR (0.9-1.1) Sodium (135-145) mmol/L Potassium (3.3-5.1) mmol/L Chloride (96-108) mmol/L Carbon Dioxide (22-29) mmol/L Anion Gap (12-20) BUN (9-16) mg/dL Creatinine (0.5-1.4) mg/dL Estim Creat Clear Calc Estimated GFR Random Glucose (60-115) mg/dL Calcium (8.4-10.2) mg/dL Total Bilirubin (0.0-1.0) mg/dL AST (5-31) U/L ALT (0-31) U/L Alkaline Phosphatase (39-117) U/L Troponin I High Sens 14.3 (<3.5-17.0) ng/L Total Protein (6.5-8.0) g/dL Albumin (3.5-5.0) g/dL COVID-19 ([facility]) Negative (Negative) COVID-19 Clin Com See Note Influenza Type A ([facility]) Negative (Negative) Influenza Type B ([facility]) Negative (Negative) Influenza A & B Note See Note <Vy Gonzalez, [employer]ACLE OBIEE DEVELOPER - Last Filed: 07/18/22 11:14> Lab Results 07/18/22 07/18/22 07/18/22 Range/Units 11:36 11:36 11:36 WBC 8.0 (4.8-10.8) X10*3/uL RBC 4.48 (4.20-5.50) X10*6/uL Hgb 12.2 (12.0-16.0) g/dl Hct 38.3 (37.0-47.0) % MCV 85.5 (80.0-98.0) fL MCH 27.2 (27.0-33.0) pg MCHC 31.9 (31.0-35.0) g/dl RDW 17.3 H (11.0-16.0) % Plt Count 392 (160-400) X10*3/uL MPV 9.0 L (9.4-12.3) fL Immature Gran % (Auto) 0.4 (0.0-0.4) % Neut % (Auto) 65.5 (45-73) % Lymph % (Auto) 20.9 (20-40) % [place] % (Auto) 10.3 (2-11) % Eos % (Auto) 1.9 (0-4) % Baso % (Auto) 1.0 (0-2) % Lymph # (Auto) 1.7 (1.2-4.9) X10*3/uL [place] # (Auto) 0.8 (0.1-1.2) X10*3/uL Eos # (Auto) 0.2 (0.0-0.4) X10*3/uL Baso # (Auto) 0.1 (0.0-0.2) X10*3/uL Abs Immat Gran (auto) 0.03 (0.00-0.03) X10*3/uL Absolute Neuts (auto) 5.2 (2.0-8.3) x10*3/uL Absolute Nucleated RBC 0.000 (0.0-0.012) X10*3/uL Nucleated RBC % (auto) 0.0 (0.0-0.2) /100WBC PT 15.4 H (10.0-13.1) SEC INR 1.3 H (0.9-1.1) Sodium 140 (135-145) mmol/L Potassium 4.0 (3.3-5.1) mmol/L Chloride 104 (96-108) mmol/L Carbon Dioxide 25 (22-29) mmol/L Anion Gap 15 (12-20) BUN 22 H (9-16) mg/dL Creatinine 0.94 (0.5-1.4) mg/dL Estim Creat Clear Calc 57.6 Estimated GFR 58 Random Glucose 133 H (60-115) mg/dL Calcium 9.3 (8.4-10.2) mg/dL Total Bilirubin 0.5 (0.0-1.0) mg/dL AST 18 (5-31) U/L ALT 10 (0-31) U/L Alkaline Phosphatase 56 (39-117) U/L Troponin I High Sens (<3.5-17.0) ng/L Total Protein 6.3 L (6.5-8.0) g/dL Albumin 3.9 (3.5-5.0) g/dL COVID-19 ([facility]) (Negative) COVID-19 Clin Com Influenza Type A ([facility]) (Negative) Influenza Type B ([facility]) (Negative) Influenza A & B Note 07/18/22 07/18/22 07/18/22 Range/Units 11:36 11:36 11:36 WBC (4.8-10.8) X10*3/uL RBC (4.20-5.50) X10*6/uL Hgb (12.0-16.0) g/dl Hct (37.0-47.0) % MCV (80.0-98.0) fL MCH (27.0-33.0) pg MCHC (31.0-35.0) g/dl RDW (11.0-16.0) % Plt Count (160-400) X10*3/uL MPV (9.4-12.3) fL Immature Gran % (Auto) (0.0-0.4) % Neut % (Auto) (45-73) % Lymph % (Auto) (20-40) % [place] % (Auto) (2-11) % Eos % (Auto) (0-4) % Baso % (Auto) (0-2) % Lymph # (Auto) (1.2-4.9) X10*3/uL [place] # (Auto) (0.1-1.2) X10*3/uL Eos # (Auto) (0.0-0.4) X10*3/uL Baso # (Auto) (0.0-0.2) X10*3/uL Abs Immat Gran (auto) (0.00-0.03) X10*3/uL Absolute Neuts (auto) (2.0-8.3) x10*3/uL Absolute Nucleated RBC (0.0-0.012) X10*3/uL Nucleated RBC % (auto) (0.0-0.2) /100WBC PT (10.0-13.1) SEC INR (0.9-1.1) Sodium (135-145) mmol/L Potassium (3.3-5.1) mmol/L Chloride (96-108) mmol/L Carbon Dioxide (22-29) mmol/L Anion Gap (12-20) BUN (9-16) mg/dL Creatinine (0.5-1.4) mg/dL Estim Creat Clear Calc Estimated GFR Random Glucose (60-115) mg/dL Calcium (8.4-10.2) mg/dL Total Bilirubin (0.0-1.0) mg/dL AST (5-31) U/L ALT (0-31) U/L Alkaline Phosphatase (39-117) U/L Troponin I High Sens 14.3 (<3.5-17.0) ng/L Total Protein (6.5-8.0) g/dL Albumin (3.5-5.0) g/dL COVID-19 ([facility]) Negative (Negative) COVID-19 Clin Com See Note Influenza Type A ([facility]) Negative (Negative) Influenza Type B ([facility]) Negative (Negative) Influenza A & B Note See Note <Rajwinder Plummer NP - Last Filed: 07/18/22 17:42> Independent Interpretation I performed an independent interpretation of an: EKG, Plain X-Ray and CT Scan <Rajwinder Plummer NP - Last Filed: 07/18/22 17:42> Interpretation: I independently reviewed the chest x-ray, left knee x-ray and CT of the head and agree with radiologist's report I independently reviewed the EKG which shows AFib with rate 98, normal QRS, no QT <Rajwinder Plummer NP - Last Filed: 07/18/22 17:42> Radiology Impression Discussion of test interpretation with radiology: I have reviewed the radiologist's reading. <Rajwinder Plummer NP - Last Filed: 07/18/22 17:42> Radiologist Impression: [address] [address] XRay Report Signed Patient: Missy Keenan MR#: [id number] : 1950 Acct:[id number] Age/Sex: 72 / F ADM Date: 07/18/22 Loc: .ED Attending Dr: Ordering Physician: Carolyne Etienne MD Date of Service: 07/18/22 Procedure(s): XR knee LT 2V Accession Number(s): [id number] cc: Carolyne Etienne MD~ EXAMINATION: XR KNEE, LEFT CLINICAL INFORMATION: Left knee pain after injury? COMPARISON: Left knee 03/19/2021? TECHNIQUE: 2 views of the left knee. FINDINGS: Again noted are tricompartmental degenerative changes in the left knee with chondrocalcinosis involving the lateral meniscus. No fractures are seen. No joint effusion is present. When comparison is made to study from 03/19/2021, there has been no interval change.? XR/XR knee LT 2V IMPRESSION: Tricompartmental degenerative changes with chondrocalcinosis. No acute finding. [address] [address] XRay Report Signed Patient: Missy Keenan MR#: [id number] : 1950 Acct:[id number] Age/Sex: 72 / F ADM Date: 07/18/22 Loc: .ED Attending Dr: Ordering Physician: Vy Gonzalez CNP Date of Service: 07/18/22 Procedure(s): XR chest 2V Accession Number(s): [id number] cc: Vy Gonzalez [employer] DEVELOPER~ EXAMINATION: XR CHEST CLINICAL INFORMATION: Chest pain COMPARISON: 05/13/2022 TECHNIQUE: 2 views of the chest were obtained. FINDINGS: No significant abnormality is noted involving the heart, lungs, mediastinum, bony thorax or soft tissues. Some minimal basilar atelectasis is seen. Spinal stimulator a level just below the mari. XR/XR chest 2V IMPRESSION: No acute intrathoracic disease. [address] [address] [address] Scan Report Signed Patient: Missy Keenan MR#: [id number] : 1950 Acct:[id number] Age/Sex: 72 / F ADM Date: 07/18/22 Loc: .ED Attending Dr: Ordering Physician: Vy Gonzalez CNP Date of Service: 07/18/22 Procedure(s): CT head/brain wo IV con Accession Number(s): [id number] cc: Vy Gonzalez [employer] DEVELOPER~ EXAMINATION: CT HEAD WITHOUT CONTRAST CLINICAL INFORMATION: Persistent headache. On Xarelto.? COMPARISON: CT head 05/13/2022. TECHNIQUE: Contiguous axial imaging was performed from the skull base to vertex without intravenous administration of contrast. This CT examination was performed using dose optimization techniques as appropriate, variously including the following: *Automated exposure control *Adjustment of mA and/or kV according to patient size (this includes techniques or standardized protocols for targeted exams where dose is matched to indication/reason for exam; i.e. extremities or head) *Use of iterative reconstruction technique DLP: 688 mGy-cm FINDINGS: There is no acute intracranial hemorrhage or abnormal extra-axial collection. No intracranial mass effect or hydrocephalus. There chronic changes of an old lacunar infarct or hemorrhage with asymmetric loss of parenchymal volume within the left putamen and left caudate body. Numerous foci of hypoattenuation are also visualized within the periventricular white matter that most likely represent chronic changes of small vessel ischemia. The calvarium and skull base are intact. Mastoid air cells and middle ear cavities are well aerated. No active paranasal sinus disease. ? CT/CT head/brain wo IV con IMPRESSION: There are chronic changes of an old lacunar infarct or hemorrhage with asymmetric loss of parenchymal volume within the left putamen and left caudate body. Numerous chronic small vessel ischemic changes are also visualized within the periventricular white matter. No evidence of acute territorial infarct or hemorrhage. ? <Rajwnider Plummer NP - Last Filed: 07/18/22 17:42> Independent Historian Clinical information obtained from an independent historian. History obtained from or confirmed by: Spouse <Rajwinder Plummer NP - Last Filed: 07/18/22 17:42> Discharge Plan Discharge Clinical Impression: Orthostatic hypotension, Atrial fibrillation with rapid ventricular response <Vy Gonzalez CNP - Last Filed: 07/18/22 11:14> Patient Disposition: Admitted As Inpatient <Vy Gonzalez CNP - Last Filed: 07/18/22 11:14>
--- NOTE | 2022-07-18 11:10 | ECG_ITS ---
Test Reason : fall Blood Pressure : / mmHG Vent. Rate : 098 BPM Atrial Rate : 000 BPM P-R Int : 000 ms QRS Dur : 096 ms QT Int : 360 ms P-R-T Axes : 000 060 017 degrees QTc Int : 459 ms Rhythm shows atrial flutter with variable block Abnormal ECG When compared with ECG of 13-MAY-2022 11:47, Rhythm change Referred By: Vy Gonzalez Electronically Signed By:KEAGAN MONACO
[2022-07-18 11:45] LABS: MANUAL DIFF FLAG NO
[2022-07-18 11:48] LABS: Basophils Absolute Auto 0.1 X10*3/uL (0.0-0.2); Eosinophils Absolute Auto 0.2 X10*3/uL (0.0-0.4); Eosinophils Percent Auto 1.9 % (0-4); Hematocrit 38.3 % (37.0-47.0); Hemoglobin 12.2 g/dl (12.0-16.0); Imm Gran Abs Auto 0.03 X10*3/uL (0.00-0.03); Imm Gran Pct Auto 0.4 % (0.0-0.4); Lymphocytes Absolute Auto 1.7 X10*3/uL (1.2-4.9); Lymphocytes Percent Auto 20.9 % (20-40); Mean Corpuscular HGB Conc 31.9 g/dl (31.0-35.0); Mean Corpuscular Hemoglobin 27.2 pg (27.0-33.0); Mean Corpuscular Volume 85.5 fL (80.0-98.0); Monocytes Absolute Auto 0.8 X10*3/uL (0.1-1.2); Monocytes Percent Auto 10.3 % (2-11); Neutrophils Absolute Auto 5.2 x10*3/uL (2.0-8.3); Neutrophils Percent Auto 65.5 % (45-73); Platelet Count 392 X10*3/uL (160-400); Red Blood Count 4.48 X10*6/uL (4.20-5.50); Red Cell Distribution Width 17.3 % (11.0-16.0)
[2022-07-18 11:52] LABS: INTERNATIONAL NORM RATIO 1.3 (0.9-1.1); Prothrombin Time 15.4 SEC (10.0-13.1)
[2022-07-18 12:02] LABS: Alanine Aminotransferase 10 U/L (0-31); Albumin Level 3.9 g/dL (3.5-5.0); Alkaline Phosphatase 56 U/L (39-117); Anion Gap 15 (12-20); Aspartate Amino Transferase 18 U/L (5-31); Bilirubin Total 0.5 mg/dL (0.0-1.0); Blood Urea Nitrogen 22 mg/dL (9-16); Calcium 9.3 mg/dL (8.4-10.2); Carbon Dioxide 25 mmol/L (22-29); Chloride 104 mmol/L (96-108); Creatinine Clr Calc Pharmacy 57.6; Estimated Glomerular Filt Rate 58; Glucose Random 133 mg/dL (60-115); Sodium 140 mmol/L (135-145); Total Protein 6.3 g/dL (6.5-8.0)
[2022-07-18 12:08] LABS: COVID-19 Test Negative (Negative); IDNOW Serial# 16C4AD1C; IDNOW Serial# BCCEAD1C; Influenza A Negative (Negative); Influenza B2 Negative (Negative)
[2022-07-18 12:09] LABS: Troponin-I High Sensitivity 14.3 ng/L (<3.5-17.0)
--- NOTE | 2022-07-18 13:01 | PC.NURSE ---
pt c/o l knee pain 10/19. md/mlp aware
[2022-07-18] MEDS: 0.9 % Sodium Chloride 500 ML 999 ML IV (14:43)
[2022-07-18 18:00] LABS: Troponin-I High Sensitivity 20.1 ng/L (<3.5-17.0)
--- NOTE | 2022-07-18 18:20 | PHA.MEDREC ---
Pharmacy Consult ? Medication Reconciliation Pharmacy has completed the medication reconciliation. Spoke with patient in the ED who confirmed all meds she is taking. Patient states she is not taking hydroxychloroquine and was stopped by
--- NOTE | 2022-07-18 19:06 | PM.IMHP ---
History of Present Illness Date of Service: 07/18/22 Attending physician on admission: Scott Moya Chief Complaint: Palpitations Pt is a 72-year-old female with a PMH significant for HTN, HLD, qvb-nleaxkg-euzwnuimx diabetes, CAD, paroxysmal AFib on Xarelto, CKD, CHF, insomnia, ELHAM, anxiety/depression, pulmonary hypertension, hx of CVA, and restless leg syndrome?who presents to the ED with?palpitations and multiple other complaints. Patient states that she has had lightheadedness, weakness, SOB, and headaches for 1 week. This coincides with her reluctantly moving out of her house of 51 years and into a small apartment. Pt tripped during her first week in the apartment and fell to the floor, hitting her head. Denies LOC. Pt did not come to the ED for her fall. This morning at 08:30, pt was eating breakfast and began to experience palpitations, which prompted her visit to the ED. Pt also complains of polyuria and diarrhea x1 week. Has had 3 watery stools per day, though better today with only one episode before coming to the ED. Pt denies fever, chills, nausea, vomiting. No abdominal pain. Denies hematochezia or melena. Of note, during interview and examination, pt's heart rate was jumping from 90s to 140s; however, pt soon converted to NSR in the 80s around 20:00. In the ED patient was tachycardic up to the 140s, tachypneic up to 22. Labs were significant for BUN of 22 (chronically elevated, at baseline), and initial troponin of 14.3 with repeat of 20.1. CXR showed no acute intrathoracic disease. X-ray of knee showed no acute findings. CT?of head showed no evidence of acute territorial infarct or hemorrhage, but chronic changes of an old lacunar infarct or hemorrhage with asymmetric loss of parenchymal volume a numerous chronic small-vessel ischemic changes within periventricular white matter. EKG demonstrated AFib with a rate of 98 and with no evidence of ST elevations or depressions. Repeat EKG showed normal sinus rhythm with heart rate of 70. Orthostatics positive. Pt will be admitted to the hospital on telemetry for treatment and further evaluation on AFib with RVR. Review of Systems Review of Systems: Palpitations Lightheadedness, dizziness, weakness Headache Diarrhea No chest pain/pressure Denies fever, chills, nausea, vomiting, abdominal pain Yes all other systems are reviewed and are negative [facility] Medical History Acute upper GI bleed Anemia Atherosclerotic cardiovascular disease Chronic heart failure with preserved ejection fraction (HFpEF) CVA (cerebral vascular accident) Diabetes mellitus Diabetes type 2, uncontrolled Diabetic neuropathy Diabetic polyneuropathy Dizziness Dyslipidemia Essential hypertension Falls Hand pain Head injury Headache Hospital discharge follow-up Iron deficiency anemia Ischemic stroke Left hand pain Left hip pain Left knee pain Left shoulder pain Lumbar degenerative disc disease Obesity due to excess calories Other and unspecified hyperlipidemia Paroxysmal atrial fibrillation PONV (postoperative nausea and vomiting) Proteinuria Pulmonary hypertension Pure hypercholesterolemia Thiamine deficiency Thrombus 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 Urge urinary incontinence Family History Father Rectal cancer Hypertension Arthritis of knee CVD (cardiovascular disease) Mother Hypertension CVD (cardiovascular disease) Myocardial infarction Diabetes Surgical History H/O colonoscopy History of Mohs micrographic surgery for skin cancer History of partial hysterectomy Hx of cardiac cath Hx of cervical spine surgery Social History Household Members: Spouse Housing: House Are you a primary home care assistant to a significant other at home: No Do you presently have visiting nurse or other home services: No Alcohol intake: never Patient Tobacco Use Status: Former Tobacco user Quit Date: 1993 Tobacco use type: Cigarette Smoked in Last 30 Days: No e-Cigarette/Vaping Use: Never Used Second Hand Smoke Exposure: No Use of substances other than those prescribed or required for medical reasons: No Advance Directives: Yes Advance Directives on File: Yes Advance Directives Date on File: 07/17/20 service: No Current occupational status: retired Current occupation: Lt handed Cognitive needs: Yes (scodor/walker) Hearing needs: No Vision needs: Yes (glasses) Meds Allergies Allergy/AdvReac Type Severity Reaction Status Date / Time morphine [Morphine] Allergy Severe ITCHING, Verified 07/18/22 10:41 hives cefdinir Allergy Intermediate hives Verified 07/18/22 10:41 sulfamethoxazole Allergy Intermediate RASH Verified 07/18/22 10:41 trimethoprim Allergy Intermediate RASH Verified 07/18/22 10:41 duloxetine AdvReac Severe altered Verified 07/18/22 10:41 behavior betina AdvReac Mild RUNNY NOSE Verified 07/18/22 10:41 mustard AdvReac Mild RUNNY NOSE Verified 07/18/22 10:41 potato [POTATO] AdvReac Mild ITCHY NOSE Verified 07/18/22 10:41 soybean AdvReac Mild RUNNY NOSE Verified 07/18/22 10:41 Active Medications: Current Medications Pharmacy Consult (Consult Rx Perform Med Rec) 1 each MISCELLANE ONCE PRN PRN Reason: Consult order Home Medications Medication Instructions Recorded Confirmed Last Taken Type empagliflozin 25 mg tablet 1 tab DAILY 11/13/21 07/18/22 07/18/22 History (Jardiance) estradiol 0.01% (0.1 mg/gram) 1 appl vaginal 3XW 11/13/21 07/18/22 07/18/22 History vaginal cream pen needle, diabetic 32 gauge x 11/13/21 06/03/22 07/18/22 History 5/32 (BD Meghan 2nd Gen Pen Needle) ropinirole 0.25 mg tablet 2 tab PO BEDTIME 11/13/21 07/18/22 07/17/22 History rosuvastatin 40 mg tablet (Crestor) 40 mg PO BEDTIME 11/26/21 07/18/22 07/17/22 History acetaminophen 325 mg tablet 650 mg PO Q6H PRN Pain (Scale 07/18/22 07/18/22 Unknown History Score 1-3) baclofen 10 mg tablet 5 mg PO TID PRN muscle spasm 07/18/22 07/18/22 07/18/22 History dulaglutide 3 mg/0.5 mL 3 mg subcut TH@0900 07/18/22 07/18/22 07/11/22 History subcutaneous pen injector (Trulicity) insulin degludec 100 unit/mL (3 0 - 10 unit subcut BEDTIME 07/18/22 07/18/22 07/17/22 History mL) subcutaneous pen (Tresiba FlexTouch U-100 insulin) metformin 1,000 mg tablet 1,000 mg PO BIDWM 07/18/22 07/18/22 07/18/22 History omeprazole 40 mg capsule,delayed 40 mg PO DAILY@0630 07/18/22 07/18/22 07/18/22 History release rivaroxaban 20 mg tablet (Xarelto) 20 mg PO DAILY@1700 07/18/22 07/18/22 07/17/22 History sennosides 8.6 mg tablet (senna) 17.2 mg PO BEDTIME PRN Constipation 07/18/22 07/18/22 Unknown History trazodone 100 mg tablet 100 mg PO BEDTIME 07/18/22 07/18/22 07/17/22 History Physical Exam Vital Signs and Narrative: Vital Signs: Last Vital Signs Temp 98.1 F 07/18/22 12:27 Pulse 120 H 07/18/22 18:00 Resp 18 07/18/22 18:00 BP 130/86 07/18/22 18:00 Pulse Ox 93 07/18/22 18:00 O2 Del Method 07/18/22 18:00 BMI result Body Mass Index 37.2 Constitutional: Alert, in no acute distress. Mental Status: Oriented to person, place and time. Eyes: Pupils are equal, round, and reactive to light. Ear, Nose, and Throat: Oropharynx clear, mucous membranes dry. Ears and nose without deformities. Trachea midline. Respiratory: Clear to auscultation bilaterally. No wheezing, rales, or rhonchi. Cardiovascular: Irregularly irregular rhythm, tachycardic. Gastrointestinal: Abdomen soft, non-tender, non-distended. Normal bowel sounds. Neurologic: Cranial nerves II-XII are grossly intact bilaterally. No focal neurological deficits. Moves all extremities spontaneously. Skin: No rashes or lesions noted. Musculoskeletal: No cyanosis or clubbing. Extremities: No edema. Psychiatric: Normal mood and affect. Results Labs 07/18/22 11:36 07/18/22 11:36 Labs: Laboratory Results - last 24 hr 07/18/22 07/18/22 07/18/22 11:36 11:36 11:36 MCV 85.5 MCH 27.2 MCHC 31.9 RDW 17.3 H Plt Count 392 MPV 9.0 L Immature Gran % (Auto) 0.4 Neut % (Auto) 65.5 Lymph % (Auto) 20.9 [place] % (Auto) 10.3 Eos % (Auto) 1.9 Baso % (Auto) 1.0 Lymph # (Auto) 1.7 [place] # (Auto) 0.8 Eos # (Auto) 0.2 Baso # (Auto) 0.1 Abs Immat Gran (auto) 0.03 Absolute Neuts (auto) 5.2 Absolute Nucleated RBC 0.000 Nucleated RBC % (auto) 0.0 PT 15.4 H INR 1.3 H Anion Gap 15 Estim Creat Clear Calc 57.6 Estimated GFR 58 Random Glucose 133 H Calcium 9.3 Total Bilirubin 0.5 AST 18 ALT 10 Alkaline Phosphatase 56 Troponin I High Sens Total Protein 6.3 L Albumin 3.9 COVID-19 ([facility]) COVID-19 Clin Com Influenza Type A ([facility]) Influenza Type B ([facility]) Influenza A & B Note 07/18/22 07/18/22 07/18/22 11:36 11:36 11:36 MCV MCH MCHC RDW Plt Count MPV Immature Gran % (Auto) Neut % (Auto) Lymph % (Auto) [place] % (Auto) Eos % (Auto) Baso % (Auto) Lymph # (Auto) [place] # (Auto) Eos # (Auto) Baso # (Auto) Abs Immat Gran (auto) Absolute Neuts (auto) Absolute Nucleated RBC Nucleated RBC % (auto) PT INR Anion Gap Estim Creat Clear Calc Estimated GFR Random Glucose Calcium Total Bilirubin AST ALT Alkaline Phosphatase Troponin I High Sens 14.3 Total Protein Albumin COVID-19 ([facility]) Negative COVID-19 Clin Com See Note Influenza Type A ([facility]) Negative Influenza Type B ([facility]) Negative Influenza A & B Note See Note 07/18/22 17:33 MCV MCH MCHC RDW Plt Count MPV Immature Gran % (Auto) Neut % (Auto) Lymph % (Auto) [place] % (Auto) Eos % (Auto) Baso % (Auto) Lymph # (Auto) [place] # (Auto) Eos # (Auto) Baso # (Auto) Abs Immat Gran (auto) Absolute Neuts (auto) Absolute Nucleated RBC Nucleated RBC % (auto) PT INR Anion Gap Estim Creat Clear Calc Estimated GFR Random Glucose Calcium Total Bilirubin AST ALT Alkaline Phosphatase Troponin I High Sens 20.1 H Total Protein Albumin COVID-19 ([facility]) COVID-19 Clin Com Influenza Type A ([facility]) Influenza Type B ([facility]) Influenza A & B Note Imaging Radiologist's Impressions: Impressions Chest X-Ray 07/18/22 11:58 IMPRESSION: No acute intrathoracic disease. Head CT 07/18/22 12:17 IMPRESSION: There are chronic changes of an old lacunar infarct or hemorrhage with asymmetric loss of parenchymal volume within the left putamen and left caudate body. Numerous chronic small vessel ischemic changes are also visualized within the periventricular white matter. No evidence of acute territorial infarct or hemorrhage. Knee X-Ray 07/18/22 13:47 IMPRESSION: Tricompartmental degenerative changes with chondrocalcinosis. No acute finding. Assessment and Plan (1) Atrial fibrillation with rapid ventricular response: Status: Acute Plan Pt is a 72-year-old female with a PMH significant for HTN, HLD, rpj-gacvyjw-rfpwvyfvm diabetes, CAD, paroxysmal AFib on Xarelto, CKD, CHF, insomnia, ELHAM, anxiety/depression, pulmonary hypertension, hx of CVA, and restless leg syndrome?who presents to the ED with?palpitations and multiple other complaints. Pt will be admitted to the hospital on telemetry for treatment and further evaluation on AFib with RVR. AFib with RVR Patient with paroxysmal AFib, felt palpitations starting this morning Patient with heart rate up into the 140s Etiology unclear, no clear infectious source, patient compliant with atenolol, possibly related to stress of moving Patient self converted to normal sinus rhythm at approximately 20:00 Continue atenolol, Xarelto Echocardiogram Cardiology consult Admit to telemetry Elevated troponins Patient with initial troponin of 14.3, repeat 20.1 Likely type 2 demand ischemia, EKG negative for ST elevations or depressions, patient not complain of chest pain/pressure Check 3rd troponin Positive orthostatics BP 128/68 supine, 104/80 sitting, 95/57 standing Possibly secondary to AFib with RVR or dehydration from GI losses Patient receiving gentle IV fluid resuscitation Patient now back in normal sinus rhythm Repeat orthostatics tomorrow Diarrhea Patient complaining of diarrhea for the past 7 days with at least 3 watery stools daily, improved today with only 1 episode Unclear etiology, no clear infectious source, patient afebrile, WBC WNL Patient receiving gentle IVF resuscitation Consider GI panel tomorrow if diarrhea persists Polyuria Patient states she has been urinating much more frequently than normal Denies dysuria Check UA Headache Possiblysecondary to recent fall CT of head negative for acute intracranial pathology Acetaminophen for pain Who-pbjoyfz-wufcwtqkg diabetes Hold home meds SSI Hx of HFpEF Does not appear in acute exacerbation Continue home diuretics HTN Continue home meds HLD Continue home meds Full Code Attending:?Dr. Moya DVT Prophylaxis: On Xarelto Pt will require a hospitalization of at least two nights for treatment and evaluation of?AFib with RVR. Time Spent With Patient Time: Total time managing care of this patient today ____ minutes. Quality Stroke Does the patient have a stroke diagnosis?: No VTE Prior VTE?: No VTE Risk Level:: Medical - moderate - high VTE Device Contraindication: Treatment Not Indicated VTE Drug Contraindication: N/A - Med Ordered
--- NOTE | 2022-07-18 19:52 | PC.NURSE ---
Pt's HR has been fluctuating between 90-120 bpm with afib. This RN spoke with hospitalist and plan was to given IV push dose of cardizem. At this time, pt's HR has stabilized at 70. Hospitalist contacted and plan is now to monitor HR and administer cardizem only with HR above 120. This RN will order EKG to verify if pt has converted to normal sinus rhythm.
--- NOTE | 2022-07-18 20:08 | PC.NURSE ---
Pt converted to normal sinus rhythm on repeat EKG. Hospitalist informed. Plan to continue to monitor pt's HR.
[2022-07-18 20:52] LABS: Glucose, Whole Blood 203 mg/dL (60-115)
[2022-07-18] MEDS: Atorvastatin Calcium 80 MG TABLET PO (21:58)
[2022-07-18] MEDS: Gabapentin 600 MG TABLET PO (21:58)
[2022-07-18] MEDS: traZODone HCL 100 MG TABLET PO (21:58)
[2022-07-18] MEDS: Rivaroxaban 20 MG TABLET PO (21:59)
[2022-07-18] MEDS: Insulin Lispro 100 UNIT/ML 3 ML VIAL SUBCUT (22:01)
[2022-07-18] MEDS: rOPINIRole HCL 0.25 MG TABLET 0.5 MG PO (22:12)
[2022-07-18] MEDS: Lactated Ringers 1,000 ML 80 ML IVCONT (22:12)
[2022-07-19] VITALS (10 sets, daily range): BP systolic 112–191; BP diastolic 66–84; PULSE 56–92; RESP 12–18; TEMP 36.4–37.1; O2SAT 92–96; BMI 40.7
[2022-07-19] MEDS: hydrOXYzine HCL 25 MG TABLET PO ×2 (01:37→22:41)
[2022-07-19] MEDS: Omeprazole 40 MG CAPSULE.DR PO (06:07)
--- NOTE | 2022-07-19 07:00 | CA_ITS ---
Transthoracic Echocardiogram Patient (Last, First, Middle): Missy Keenan M Gender: Female Date of : 1950 Age: 72 Procedure Date: 07/19/2022 Procedure Type: Transthoracic Echocardiogram Location: [facility] [place] Height: 160.02 cm Weight: 95.26 kg BSA: 1.97 m2 Heart Rate: 62 bpm BP: 175 / 72 mmHg Racing Board Marker: KEY Referring MD: Nicole NATION Symptoms: AFib with RVR Study Quality: Adequate/Contrast ECG Rhythm: Sinus Conclusions: - The left ventricular systolic function is hyperdynamic. The visually estimated ejection fraction is >70%. - There is moderate calcification of the aortic valve. There is mild to moderate aortic valve stenosis. - There is moderate mitral annular calcification. There is moderate mitral valve stenosis. Findings Procedure Information Contrast agent, definity, is being given per protocol without apparent complications. Left Ventricle Normal left ventricular cavity size. The left ventricular systolic function is hyperdynamic. The visually estimated ejection fraction is >70%. Regional wall motion abnormalities can not be excluded due to suboptimal endocardial definition. Evidence suggests grade II (moderate) diastolic dysfunction. There is severe septal asymmetric hypertrophy. Right Ventricle Mildly increased right ventricular cavity size. There is normal right ventricular systolic function. Atria The left atrium is mildly dilated. The right atrium is normal in size. Aortic Valve There is moderate calcification of the aortic valve. There is mild to moderate aortic valve stenosis. The mean gradient is 11 mmHg. The aortic valve area is 1.38 cm2. There is no aortic valve regurgitation. Mitral Valve There is moderate mitral annular calcification. There is trace mitral valve regurgitation. There is moderate mitral valve stenosis. Pulmonic Valve The pulmonic valve is likely normal. Tricuspid Valve There is trace tricuspid valve regurgitation. There is no evidence of pulmonary hypertension. Great Vessels The asc aorta is normal in size. Venous The inferior vena cava is normal in size and collapses less than 50% with inspiration. Pericardium/Pleural There is no evidence of pericardial effusion. Prior Study Comparison No significant change compared to prior study dated: 08/02/2020. Measurements 2D Linear Measurements IVSd: 1.62 0.6-0.9/0.6-1.0 cm LVIDd: 4.03 3.9-5.3/4.2-5.9 cm LVIDd Index: 2.05 2.4-3.2/2.2-3.1 cm/m2 LVIDs: 1.90 2.0-3.6 cm LVPWd: 1.04 0.7-1.1 cm LA Diam: 3.60 2.7-3.8/3.0-4.0 cm LAIDs Index: 1.83 1.5-2.3 cm/m2 LV Mass: 243.33 67-162/88-224 g LV Mass Index: 123.52 43-95/49-115 g/m2 LVOT Diam: 2.00 3.0+(-)1.3 cm 2D Systolic Function EF 4C: 76.80 >55% EF 2C: 71.10 >55% EF BiP: 74.30 >55% Mitral Valve MV VTI: 0.73 MV Pk Jian: 2.06 MV Mn Jian: 1.17 MV Pk Grad: 17.00 MV Mn Grad: 7.00 MV Pk E: 1.99 MV PK A: 1.11 MV Decel Time: 390.00 E/A: 1.80 E'Lateral: 4.38 E'Medial: 3.42 E/E' Med: 58.20 E/E' Lat: 45.40 PHT: 114.00 MVA PHT: 1.93 MVA Continuity: 1.05 Decel [place]: 5.11 Aortic Valve AoV Pk Jian: 2.13 AoV Mn Jian: 1.58 AoV VTI: 0.55 AoV Pk Grad: 18.00 Aov Mn Grad: 11.00 ANTONIO Cont.VTI: 1.38 LVOT LVOT Pk Jian: 0.90 LVOT Mn Jian: 0.69 LVOT VTI: 0.24 LVOT Pk Grad: 3.00 LVOT Mn Grad: 2.00 LVOT Diam: 2.00 LVOT Area: 3.14 Diastolic Function MV Pk E: 1.99 MV Pk A: 1.11 E/A: 1.80 E'Medial: 3.42 E/E' Med: 58.20 E' Laterial: 4.38 E/E' Lat: 45.40 Right Ventricle TAPSE (mm): 18.30 TVS' Jian: 10.30 Tricuspid Valve TR Pk Jian: 2.13 TR Pk Grad: 18.00 RA Press: 3.00 RVSP: 21.00 Great Vessels Aorta Sinus of Valsalva: 3.40 2.0-3.5 cm Ao Asc: 3.60 2.1-3.4 cm Pulmonary Valve PV Pk Jian: 1.19 Peak PV Grad: 6.00 Updated in Other Vendor System with Status of Final Genaro Sweet MD electronically signed on 07/19/2022 2:23:47 PM with status of Final
[2022-07-19] MEDS: Fenofibrate 160 MG TABLET PO (07:57)
[2022-07-19] MEDS: Ferrous Sulfate 324 MG TABLET.DR PO (07:57)
[2022-07-19] MEDS: Mirabegron 50 MG TAB.ER.24H PO (07:57)
[2022-07-19] MEDS: Furosemide 40 MG TABLET PO (07:57)
[2022-07-19] MEDS: Magnesium Oxide 400 MG TABLET 200 MG PO (07:57)
[2022-07-19] MEDS: Losartan Potassium 25 MG TABLET PO (07:58)
[2022-07-19] MEDS: Empagliflozin 25 MG TABLET PO (07:58)
[2022-07-19 07:59] LABS: Glucose, Whole Blood 128 mg/dL (60-115)
[2022-07-19] MEDS: Gabapentin 600 MG TABLET PO ×3 (07:59→21:47)
[2022-07-19] MEDS: Cholecalciferol (Vitamin D3) 25 MCG TABLET 50 MCG PO (07:59)
[2022-07-19] MEDS: Loratadine 10 MG TABLET PO (07:59)
[2022-07-19] MEDS: Thiamine HCL 100 MG TABLET PO (07:59)
[2022-07-19] MEDS: Cyanocobalamin (Vitamin B-12) 1,000 MCG TABLET 1000 MCG PO (07:59)
[2022-07-19] MEDS: atenoloL 50 MG TABLET PO (07:59)
[2022-07-19] MEDS: Escitalopram Oxalate 10 MG TABLET PO (07:59)
--- NOTE | 2022-07-19 09:14 | MHC.CM.PN ---
CM attempted to meet with Patient at bedside but she was receiving diagnostic testing; CM spoke with /HCP/Jamal @ [phone] and addressed IMM with him (original will be mailed certified mail to Jamal and a copy has been placed on the chart and available for Patient's review after her testing/procedure). Patient lives in an apartment with her /Caregiver and she uses a walker to assist with mobility. Per Jamal's understanding, STR is Patient and his goal and they are agreeable to a SNF search in an attempt to determine which facilities have beds available. CM has initiated and will follow for dc planning. PCP is Dr. Marla Santamaria and Patient has received Covid vax x4.,
[2022-07-19] MEDS: Lactated Ringers 1,000 ML 80 ML IVCONT (10:14)
[2022-07-19 10:29] LABS: Appearance Urine Clear; Color Urine Yellow; Glucose Urine UA >=1000 mg/dL (Negative); Leukocyte Esterase Urine Negative (Negative); Nitrite Urine Negative (Negative); PH 5.5 (5.0-9.0); UMIC TRIGGER UA YES; Urine Blood Negative (Negative); Urine Ketones Negative (Negative); Urine Protein Trace mg/dL (Neg-Trace)
[2022-07-19 10:35] LABS: Bacteria Urine None Seen (None Seen); Hyaline Casts Urine 0-2 /LPF (0-2); RBC Urine 0-2 /HPF (0-2); Squamous Epithelial Cell Urine 0-2 /HPF (0-2); WBC Urine 0-5 /HPF (0-5)
[2022-07-19] MEDS: Fluticasone Propionate Nasal 16 GM SPRAY 1 SPRAY NOSTRIL-B (10:38)
--- NOTE | 2022-07-19 10:50 | PM.CNCAR ---
History of Present Illness History of Present Illness Date of Service: 07/19/22 Chief complaint: Palpitations Narrative: This is a cardiology consultation regarding atrial fibrillation. Patient is well known to our practice and generally seen on regular basis. She has multiple cardiac as well as noncardiac issues. From the cardiac standpoint, she has got stable coronary artery disease, chronic heart failure with preserved ejection fraction, paroxysmal atrial fibrillation, hypertension, dyslipidemia and multiple strokes. Current admission is because of diarrhea as well as palpitations. Patient states that she was living in her own home for more than 50 years but had to move out. Then moved into an apartment where she apparently fell. Then has not been feeling too good. Over the last several days, has been having diarrhea. Then started noticing the palpitations and eventually was seen in the ER where she was diagnosed with atrial fibrillation and then admitted. There is only 1 EKG that shows atrial fibrillation but essentially also telemetry shows only sinus rhythm. Today, she states that she is doing okay and really does not have any cardiac symptoms like angina or in fact anything else. Review of Systems Review of Systems: Yes all other systems are reviewed and are negative Constitutional: Constitutional: Reports as per HPI and Reports no additional constitutional complaints Eyes: Eyes: Reports as per HPI and Denies no additional eye complaints ENT: Denies system reviewed and no additional complaints, except as documented and Reports as per HPI Cardiovascular: Cardiovascular: Reports as per HPI, Reports no additional cardiovascular complaints, Denies acrocyanosis, Denies cool extremities, Denies chest pain, Denies leg edema, Denies lightheadedness, Reports palpitations and Denies dyspnea Respiratory: Respiratory: Reports as per HPI, Denies no additional respiratory complaints and Denies dyspnea Gastrointestinal: Gastrointestinal: Reports as per HPI and Denies no additional gastrointestinal complaints Genitourinary: Genitourinary: Reports as per HPI Musculoskeletal: Musculoskeletal: Reports no additional musculoskeletal complaints and Reports as per HPI Integumentary/Breasts: Skin/Breast: Reports system reviewed and no additional complaints, except as docu Neurologic: Reports system reviewed and no additional complaints, except as documented and Reports as per HPI Psychiatric: Psychiatric: Reports no additional psychiatric complaints and Reports as per HPI Endocrine: Endocrine: Reports no additional endocrine complaints, Reports as per HPI and Reports palpitations Hematologic/Lymphatic: Hematologic/Lymphatic: Reports no additional hematologic/lymphatic complaints and Reports as per HPI Allergic/Immunologic: Allergic/Immunologic: Reports no additional allergic/immunologic complaints and Reports as per [facility] Past Medical History Medical History Acute upper GI bleed Anemia Atherosclerotic cardiovascular disease Chronic heart failure with preserved ejection fraction (HFpEF) CVA (cerebral vascular accident) Diabetes mellitus Diabetes type 2, uncontrolled Diabetic neuropathy Diabetic polyneuropathy Dizziness Dyslipidemia Essential hypertension Falls Hand pain Head injury Headache Hospital discharge follow-up Iron deficiency anemia Ischemic stroke Left hand pain Left hip pain Left knee pain Left shoulder pain Lumbar degenerative disc disease Obesity due to excess calories Other and unspecified hyperlipidemia Paroxysmal atrial fibrillation PONV (postoperative nausea and vomiting) Proteinuria Pulmonary hypertension Pure hypercholesterolemia Thiamine deficiency Thrombus 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 Urge urinary incontinence Family History Family History Father Rectal cancer Hypertension Arthritis of knee CVD (cardiovascular disease) Mother Hypertension CVD (cardiovascular disease) Myocardial infarction Diabetes Surgical History Surgical History H/O colonoscopy History of Mohs micrographic surgery for skin cancer History of partial hysterectomy Hx of cardiac cath Hx of cervical spine surgery Social History Social History Household Members: Spouse Housing: Condominium Are you a primary healthcare administration intern to a significant other at home: No Do you presently have visiting nurse or other home services: No Alcohol intake: never Patient Tobacco Use Status: Former Tobacco user Quit Date: 1993 Tobacco use type: Cigarette Smoked in Last 30 Days: No e-Cigarette/Vaping Use: Never Used Patient Interested in Nicotine Replacement: No Patient Given Instructions on How to Stop Smoking: No Second Hand Smoke Exposure: No Use of substances other than those prescribed or required for medical reasons: No Currently Displaying Signs/Symptoms of Drug Intoxication Withdrawal: No Any prior treatment program specific to substance use: No Have you been hit, kicked, punched, or otherwise hurt by someone within the past year? If so, by whom?: No Do you feel safe in your current relationship?: Yes Is there a partner from a previous relationship who is making you feel unsafe now?: No Are you made to feel afraid or neglected: No Advance Directives: Yes Advance Directives on File: Yes Advance Directives Date on File: 07/17/20 Do you have thoughts of harming others: None Do you have a plan to hurt others: No Plan Recently lost weight without trying: No Patient : No : No Poor oral hygiene: No service: No Current occupational status: retired Current occupation: Lt handed Cognitive needs: Yes (scodor/walker) Hearing needs: No Vision needs: Yes (glasses) Meds Allergies Allergy/AdvReac Type Severity Reaction Status Date / Time morphine [Morphine] Allergy Severe ITCHING, Verified 07/18/22 10:41 hives cefdinir Allergy Intermediate hives Verified 07/18/22 10:41 sulfamethoxazole Allergy Intermediate RASH Verified 07/18/22 10:41 trimethoprim Allergy Intermediate RASH Verified 07/18/22 10:41 duloxetine AdvReac Severe altered Verified 07/18/22 10:41 behavior betina AdvReac Mild RUNNY NOSE Verified 07/18/22 10:41 mustard AdvReac Mild RUNNY NOSE Verified 07/18/22 10:41 potato [POTATO] AdvReac Mild ITCHY NOSE Verified 07/18/22 10:41 soybean AdvReac Mild RUNNY NOSE Verified 07/18/22 10:41 Active Medications: Current Medications Acetaminophen (Acetaminophen 325 Mg Tablet) 650 mg PO Q6H PRN PRN Reason: Pain, Mild (Pain Scale 1-3) Atenolol (Atenolol 50 Mg Tablet) 50 mg PO DAILY [facility]; Protocol Last Admin: 07/19/22 07:59 Dose: 50 mg Atorvastatin Calcium (Atorvastatin Calcium 80 Mg Tablet) 80 mg PO BEDTIME [facility] Last Admin: 07/18/22 21:58 Dose: 80 mg Baclofen (Baclofen 10 Mg Tablet) 5 mg PO TID PRN PRN Reason: muscle spasm Cyanocobalamin (Cyanocobalamin (Vitamin B-12) 1,000 Mcg Tablet) 1,000 mcg PO DAILY [facility] Last Admin: 07/19/22 07:59 Dose: 1,000 mcg Docusate Sodium (Docusate Sodium 100 Mg Capsule) 100 mg PO BID PRN PRN Reason: constipation Empagliflozin (Empagliflozin 25 Mg Tablet) 25 mg PO DAILY [facility] Last Admin: 07/19/22 07:58 Dose: 25 mg Escitalopram Oxalate (Escitalopram Oxalate 10 Mg Tablet) 10 mg PO DAILY [facility] Last Admin: 07/19/22 07:59 Dose: 10 mg Fenofibrate (Fenofibrate 160 Mg Tablet) 160 mg PO DAILY [facility] Last Admin: 07/19/22 07:57 Dose: 160 mg Ferrous Sulfate (Ferrous Sulfate 324 Mg Tablet.) 324 mg PO DAILY [facility] Last Admin: 07/19/22 07:57 Dose: 324 mg Fluticasone Propionate (Fluticasone Propionate Nasal 16 Gm [place]) 1 spray NOSTRIL-B DAILY [facility] Last Admin: 07/19/22 10:38 Dose: 1 spray Furosemide (Furosemide 40 Mg Tablet) 40 mg PO DAILY [facility]; Protocol Last Admin: 07/19/22 07:57 Dose: 40 mg Gabapentin (Gabapentin 600 Mg Tablet) 600 mg PO TID [facility] Last Admin: 07/19/22 07:59 Dose: 600 mg Glucose (Glucose Gel 15 Gm Gel..Gram.) 15 gm PO Q15M PRN; Protocol PRN Reason: per Hypoglycemia Standing Ord. Dextrose (D10) 250 mls @ 750 mls/hr IV Q15M PRN; Protocol PRN Reason: per Hypoglycemia Standing Ord. Insulin Human Lispro (Insulin Lispro 100 Unit/Ml 3 Ml Vial) 0 unit SUBCUT QIDACHS [facility]; Protocol Last Admin: 07/19/22 07:57 Dose: Not Given Loratadine (Loratadine 10 Mg Tablet) 10 mg PO DAILY [facility] Last Admin: 07/19/22 07:59 Dose: 10 mg Losartan Potassium (Losartan Potassium 25 Mg Tablet) 25 mg PO DAILY [facility]; Protocol Last Admin: 07/19/22 07:58 Dose: 25 mg Magnesium Oxide (Magnesium Oxide 400 Mg Tablet) 200 mg PO DAILY [facility] Last Admin: 07/19/22 07:57 Dose: 200 mg Mirabegron (Mirabegron 50 Mg Tab.Er.24h) 50 mg PO DAILY [facility] Last Admin: 07/19/22 07:57 Dose: 50 mg Non-Formulary Medication (Dulaglutide [Trulicity]) 3 mg SUBCUT TH@0900 [facility] Non-Formulary Medication (Fesoterodine) 8 mg PO DAILY [facility] Non-Formulary Medication (Riboflavin (Vitamin B2)) 400 mg PO DAILY [facility] Omeprazole (Omeprazole 40 Mg Capsule.) 40 mg PO DAILY@0630 [facility] Last Admin: 07/19/22 06:07 Dose: 40 mg Oxycodone HCl (Oxycodone Hcl Immed Release 5 Mg Tablet) 5 mg PO Q6H PRN PRN Reason: Pain, Severe (Pain Scale 7-10) Pharmacy Consult (Consult Rx Perform Med Rec) 1 each MISCELLANE ONCE PRN PRN Reason: Consult order Rivaroxaban (Rivaroxaban 20 Mg Tablet) 20 mg PO DAILY@1700 [facility] Last Admin: 07/18/22 21:59 Dose: 20 mg Ropinirole HCl (Ropinirole Hcl 0.25 Mg Tablet) 0.5 mg PO BEDTIME [facility] Last Admin: 07/18/22 22:12 Dose: 0.5 mg Senna (Sennosides 8.6 Mg Tablet) 17.2 mg PO BEDTIME PRN PRN Reason: Constipation Sodium Chloride (0.9 % Sodium Chloride Flush 3 Ml Syringe) 3 ml IVFLUSH QSHIFT [facility] Last Admin: 07/19/22 08:06 Dose: Not Given Thiamine HCl (Thiamine Hcl 100 Mg Tablet) 100 mg PO DAILY [facility] Last Admin: 07/19/22 07:59 Dose: 100 mg Trazodone HCl (Trazodone Hcl 100 Mg Tablet) 100 mg PO BEDTIME [facility] Last Admin: 07/18/22 21:58 Dose: 100 mg Vitamin D (Cholecalciferol (Vitamin D3) 25 Mcg Tablet) 50 mcg PO DAILY [facility] Last Admin: 07/19/22 07:59 Dose: 50 mcg Home Medications Medication Instructions Recorded Confirmed Last Taken Type empagliflozin 25 mg tablet 1 tab DAILY 11/13/21 07/18/22 07/18/22 History (Jardiance) estradiol 0.01% (0.1 mg/gram) 1 appl vaginal 3XW 11/13/21 07/18/22 07/18/22 History vaginal cream pen needle, diabetic 32 gauge x 11/13/21 06/03/22 07/18/22 History 5/32 (BD Meghan 2nd Gen Pen Needle) ropinirole 0.25 mg tablet 2 tab PO BEDTIME 11/13/21 07/18/22 07/17/22 History rosuvastatin 40 mg tablet (Crestor) 40 mg PO BEDTIME 11/26/21 07/18/22 07/17/22 History acetaminophen 325 mg tablet 650 mg PO Q6H PRN Pain (Scale 07/18/22 07/18/22 Unknown History Score 1-3) baclofen 10 mg tablet 5 mg PO TID PRN muscle spasm 07/18/22 07/18/22 07/18/22 History dulaglutide 3 mg/0.5 mL 3 mg subcut TH@0900 07/18/22 07/18/22 07/11/22 History subcutaneous pen injector (Trulicity) insulin degludec 100 unit/mL (3 0 - 10 unit subcut BEDTIME 07/18/22 07/18/22 07/17/22 History mL) subcutaneous pen (Tresiba FlexTouch U-100 insulin) metformin 1,000 mg tablet 1,000 mg PO BIDWM 07/18/22 07/18/22 07/18/22 History omeprazole 40 mg capsule,delayed 40 mg PO DAILY@0630 07/18/22 07/18/22 07/18/22 History release rivaroxaban 20 mg tablet (Xarelto) 20 mg PO DAILY@1700 07/18/22 07/18/22 07/17/22 History sennosides 8.6 mg tablet (senna) 17.2 mg PO BEDTIME PRN Constipation 07/18/22 07/18/22 Unknown History trazodone 100 mg tablet 100 mg PO BEDTIME 07/18/22 07/18/22 07/17/22 History Physical Exam Vital Signs: Vital Signs: Last Vital Signs Temp 97.8 F 07/19/22 07:20 Pulse 63 07/19/22 07:20 Resp 12 07/19/22 07:20 BP 157/66 H 07/19/22 07:20 Pulse Ox 93 07/19/22 07:20 O2 Del Method 07/19/22 07:20 BMI result Body Mass Index 40.7 Const: General: comfortable and no acute distress Orientation/consciousness: patient oriented x3 HEENT: Other: Unremarkable Head: Yes normal to inspection Neck: Neck: Yes normal visual inspection Chest: Chest palpation & inspection: normal inspection of the chest Resp: Auscultation: clear to auscultation bilaterally Cardio: Palpation: normal PMI Heart sounds: S1 normal heart sound present, S2 normal heart sound present, no gallops, no murmurs and no rubs GI: Palpation (GI): Soft to palpation Back/Spine/Pelvis: Other: unremarkable Skin: General skin exam: no rashes or lesions noted Neuro: General: patient oriented x3 Extrem: General: Yes normal to inspection Psych: Mental Status: mental status grossly normal Objective Labs and Meds 07/18/22 11:36 07/18/22 11:36 Lab results: Laboratory Results - last 24 hr 07/18/22 07/18/22 07/18/22 11:36 11:36 11:36 WBC 8.0 RBC 4.48 Hgb 12.2 Hct 38.3 MCV 85.5 MCH 27.2 MCHC 31.9 RDW 17.3 H Plt Count 392 MPV 9.0 L Immature Gran % (Auto) 0.4 Neut % (Auto) 65.5 Lymph % (Auto) 20.9 [place] % (Auto) 10.3 Eos % (Auto) 1.9 Baso % (Auto) 1.0 Lymph # (Auto) 1.7 [place] # (Auto) 0.8 Eos # (Auto) 0.2 Baso # (Auto) 0.1 Abs Immat Gran (auto) 0.03 Absolute Neuts (auto) 5.2 Absolute Nucleated RBC 0.000 Nucleated RBC % (auto) 0.0 PT 15.4 H INR 1.3 H Sodium 140 Potassium 4.0 Chloride 104 Carbon Dioxide 25 Anion Gap 15 BUN 22 H Creatinine 0.94 Estim Creat Clear Calc 57.6 Estimated GFR 58 POC Glucose Random Glucose 133 H Calcium 9.3 Total Bilirubin 0.5 AST 18 ALT 10 Alkaline Phosphatase 56 Troponin I High Sens Total Protein 6.3 L Albumin 3.9 Urine Color Urine Appearance Urine pH Ur Specific [place] Urine Protein Urine Glucose (UA) Urine Ketones Urine Blood Urine Nitrite Ur Leukocyte Esterase Urine RBC Urine WBC Ur Squamous Epith Cells Urine Bacteria Hyaline Casts COVID-19 ([facility]) COVID-19 Clin Com Influenza Type A ([facility]) Influenza Type B ([facility]) Influenza A & B Note 07/18/22 07/18/22 07/18/22 11:36 11:36 11:36 WBC RBC Hgb Hct MCV MCH MCHC RDW Plt Count MPV Immature Gran % (Auto) Neut % (Auto) Lymph % (Auto) [place] % (Auto) Eos % (Auto) Baso % (Auto) Lymph # (Auto) [place] # (Auto) Eos # (Auto) Baso # (Auto) Abs Immat Gran (auto) Absolute Neuts (auto) Absolute Nucleated RBC Nucleated RBC % (auto) PT INR Sodium Potassium Chloride Carbon Dioxide Anion Gap BUN Creatinine Estim Creat Clear Calc Estimated GFR POC Glucose Random Glucose Calcium Total Bilirubin AST ALT Alkaline Phosphatase Troponin I High Sens 14.3 Total Protein Albumin Urine Color Urine Appearance Urine pH Ur Specific [place] Urine Protein Urine Glucose (UA) Urine Ketones Urine Blood Urine Nitrite Ur Leukocyte Esterase Urine RBC Urine WBC Ur Squamous Epith Cells Urine Bacteria Hyaline Casts COVID-19 ([facility]) Negative COVID-19 Clin Com See Note Influenza Type A ([facility]) Negative Influenza Type B ([facility]) Negative Influenza A & B Note See Note 07/18/22 07/18/22 07/19/22 17:33 20:49 07:54 WBC RBC Hgb Hct MCV MCH MCHC RDW Plt Count MPV Immature Gran % (Auto) Neut % (Auto) Lymph % (Auto) [place] % (Auto) Eos % (Auto) Baso % (Auto) Lymph # (Auto) [place] # (Auto) Eos # (Auto) Baso # (Auto) Abs Immat Gran (auto) Absolute Neuts (auto) Absolute Nucleated RBC Nucleated RBC % (auto) PT INR Sodium Potassium Chloride Carbon Dioxide Anion Gap BUN Creatinine Estim Creat Clear Calc Estimated GFR POC Glucose 203 H 128 H Random Glucose Calcium Total Bilirubin AST ALT Alkaline Phosphatase Troponin I High Sens 20.1 H Total Protein Albumin Urine Color Urine Appearance Urine pH Ur Specific [place] Urine Protein Urine Glucose (UA) Urine Ketones Urine Blood Urine Nitrite Ur Leukocyte Esterase Urine RBC Urine WBC Ur Squamous Epith Cells Urine Bacteria Hyaline Casts COVID-19 ([facility]) COVID-19 Clin Com Influenza Type A ([facility]) Influenza Type B ([facility]) Influenza A & B Note 07/19/22 09:55 WBC RBC Hgb Hct MCV MCH MCHC RDW Plt Count MPV Immature Gran % (Auto) Neut % (Auto) Lymph % (Auto) [place] % (Auto) Eos % (Auto) Baso % (Auto) Lymph # (Auto) [place] # (Auto) Eos # (Auto) Baso # (Auto) Abs Immat Gran (auto) Absolute Neuts (auto) Absolute Nucleated RBC Nucleated RBC % (auto) PT INR Sodium Potassium Chloride Carbon Dioxide Anion Gap BUN Creatinine Estim Creat Clear Calc Estimated GFR POC Glucose Random Glucose Calcium Total Bilirubin AST ALT Alkaline Phosphatase Troponin I High Sens Total Protein Albumin Urine Color Yellow Urine Appearance Clear Urine pH 5.5 Ur Specific [place] 1.010 Urine Protein Trace Urine Glucose (UA) >=1000 H Urine Ketones Negative Urine Blood Negative Urine Nitrite Negative Ur Leukocyte Esterase Negative Urine RBC 0-2 Urine WBC 0-5 Ur Squamous Epith Cells 0-2 Urine Bacteria None Seen Hyaline Casts 0-2 COVID-19 ([facility]) COVID-19 Clin Com Influenza Type A ([facility]) Influenza Type B ([facility]) Influenza A & B Note ECG Interpretation: Admission EKG with probably atrial flutter at a rate of 98/Min. Repeat EKG shows sinus rhythm. Cannot exclude old inferior infarct. Minimal voltage criteria for LVH. Normal IA and corrected QT. Imaging Radiologist's impression: Impressions Chest X-Ray 07/18/22 11:58 IMPRESSION: No acute intrathoracic disease. Head CT 07/18/22 12:17 IMPRESSION: There are chronic changes of an old lacunar infarct or hemorrhage with asymmetric loss of parenchymal volume within the left putamen and left caudate body. Numerous chronic small vessel ischemic changes are also visualized within the periventricular white matter. No evidence of acute territorial infarct or hemorrhage. Knee X-Ray 07/18/22 13:47 IMPRESSION: Tricompartmental degenerative changes with chondrocalcinosis. No acute finding. Assessment and Plan (1) Atrial fibrillation with rapid ventricular response: Status: Acute She has been on Multaq in the past but that was stopped because of interstitial findings on CT scan. Then she was on atenolol but that was also stop because of blood pressure issues. During the last visit, I put her back on the atenolol at 50 mg. Currently, blood pressures are rather on the higher side. We can continue this probably the same does as even when she was in flutter, she was not too fast. Otherwise, continue with anticoagulation. (2) Atherosclerotic cardiovascular disease: Status: Acute Cardiac [id number] 2 vessel disease with LABORER VINEYARD of the RCA;? collaterals from distal circumflex; severe lesion in OM2 ostium, culprit, status post JACY.? Has been stable.? Continue statins. (3) Chronic heart failure with preserved ejection fraction (HFpEF): Status: Acute Continue diuretics. Time Spent With Patient Time: Total time managing care of this patient today 77 minutes. Procedures Date of Service Date of Service: 07/19/22
[2022-07-19 11:06] LABS: Glucose, Whole Blood 143 mg/dL (60-115)
--- NOTE | 2022-07-19 13:52 | HO.PM.IMPN ---
Subjective Subjective Date of Service: 07/20/22 Interval History: the patient was seen and evaluated this morning Laying in bed, feels comfortable Rhythm improved back to sinus no more lightheadedness No reported other overnight events. Review of Systems No fever, chills or weakness No chest pain, palpitation No shortness of breath or coughing No abdominal pain, nausea or vomiting No urinary symptoms No reported rash Physical Exam Vital Signs: Vital Signs: Last Vital Signs Temp 97.6 F 07/19/22 11:04 Pulse 58 07/19/22 11:04 Resp 12 07/19/22 11:04 BP 165/72 H 07/19/22 11:04 Pulse Ox 94 07/19/22 11:04 O2 Del Method 07/19/22 11:04 BMI result Body Mass Index 40.7 Const: Other: Constitutional : Awake, interactive, not in distress Neck : Normal inspection, Supple Cardiovascular : RRR, no JVP, no lower extremity edema Respiratory : good bilateral air entry, no crackles, wheezes or rhonchi Gastrointestinal: soft, lax, Normal bowel sounds, Non tender Skin : Warm, Dry Neurological : Alert & oriented x3, No focal deficit , CN 2-12 within normal Objective Data Active Medications Acetaminophen (Acetaminophen 325 Mg Tablet) 650 mg PO Q6H PRN PRN Reason: Pain, Mild (Pain Scale 1-3) Atenolol (Atenolol 50 Mg Tablet) 50 mg PO DAILY [facility]; Protocol Last Admin: 07/19/22 07:59 Dose: 50 mg Documented By: POOJA Atorvastatin Calcium (Atorvastatin Calcium 80 Mg Tablet) 80 mg PO BEDTIME [facility] Last Admin: 07/18/22 21:58 Dose: 80 mg Documented By: ZAN Baclofen (Baclofen 10 Mg Tablet) 5 mg PO TID PRN PRN Reason: muscle spasm Cyanocobalamin (Cyanocobalamin (Vitamin B-12) 1,000 Mcg Tablet) 1,000 mcg PO DAILY [facility] Last Admin: 07/19/22 07:59 Dose: 1,000 mcg Documented By: POOJA Docusate Sodium (Docusate Sodium 100 Mg Capsule) 100 mg PO BID PRN PRN Reason: constipation Empagliflozin (Empagliflozin 25 Mg Tablet) 25 mg PO DAILY [facility] Last Admin: 07/19/22 07:58 Dose: 25 mg Documented By: POOJA Escitalopram Oxalate (Escitalopram Oxalate 10 Mg Tablet) 10 mg PO DAILY [facility] Last Admin: 07/19/22 07:59 Dose: 10 mg Documented By: POOJA Fenofibrate (Fenofibrate 160 Mg Tablet) 160 mg PO DAILY [facility] Last Admin: 07/19/22 07:57 Dose: 160 mg Documented By: POOJA Ferrous Sulfate (Ferrous Sulfate 324 Mg Tablet.Dr) 324 mg PO DAILY [facility] Last Admin: 07/19/22 07:57 Dose: 324 mg Documented By: POOJA Fluticasone Propionate (Fluticasone Propionate Nasal 16 Gm [place]) 1 spray NOSTRIL-B DAILY [facility] Last Admin: 07/19/22 10:38 Dose: 1 spray Documented By: POOJA Furosemide (Furosemide 40 Mg Tablet) 40 mg PO DAILY [facility]; Protocol Last Admin: 07/19/22 07:57 Dose: 40 mg Documented By: POOJA Gabapentin (Gabapentin 600 Mg Tablet) 600 mg PO TID [facility] Last Admin: 07/19/22 07:59 Dose: 600 mg Documented By: POOJA Glucose (Glucose Gel 15 Gm Gel..Gram.) 15 gm PO Q15M PRN; Protocol PRN Reason: per Hypoglycemia Standing Ord. Dextrose (D10) 250 mls @ 750 mls/hr IV Q15M PRN; Protocol PRN Reason: per Hypoglycemia Standing Ord. Insulin Human Lispro (Insulin Lispro 100 Unit/Ml 3 Ml Vial) 0 unit SUBCUT QIDACHS [facility]; Protocol Last Admin: 07/19/22 11:07 Dose: Not Given Documented By: POOJA Non-Admin Reason: No Insulin Coverage Loratadine (Loratadine 10 Mg Tablet) 10 mg PO DAILY [facility] Last Admin: 07/19/22 07:59 Dose: 10 mg Documented By: POOJA Losartan Potassium (Losartan Potassium 25 Mg Tablet) 25 mg PO DAILY [facility]; Protocol Last Admin: 07/19/22 07:58 Dose: 25 mg Documented By: POOJA Magnesium Oxide (Magnesium Oxide 400 Mg Tablet) 200 mg PO DAILY [facility] Last Admin: 07/19/22 07:57 Dose: 200 mg Documented By: POOJA Mirabegron (Mirabegron 50 Mg Tab.Er.24h) 50 mg PO DAILY [facility] Last Admin: 07/19/22 07:57 Dose: 50 mg Documented By: POOJA Non-Formulary Medication (Dulaglutide [Trulicity]) 3 mg SUBCUT TH@0900 [facility] Non-Formulary Medication (Fesoterodine) 8 mg PO DAILY [facility] Non-Formulary Medication (Riboflavin (Vitamin B2)) 400 mg PO DAILY [facility] Omeprazole (Omeprazole 40 Mg Capsule.Dr) 40 mg PO DAILY@0630 [facility] Last Admin: 07/19/22 06:07 Dose: 40 mg Documented By: THAI Oxycodone HCl (Oxycodone Hcl Immed Release 5 Mg Tablet) 5 mg PO Q6H PRN PRN Reason: Pain, Severe (Pain Scale 7-10) Pharmacy Consult (Consult Rx Perform Med Rec) 1 each MISCELLANE ONCE PRN PRN Reason: Consult order Rivaroxaban (Rivaroxaban 20 Mg Tablet) 20 mg PO DAILY@1700 [facility] Last Admin: 07/18/22 21:59 Dose: 20 mg Documented By: ZAN Ropinirole HCl (Ropinirole Hcl 0.25 Mg Tablet) 0.5 mg PO BEDTIME [facility] Last Admin: 07/18/22 22:12 Dose: 0.5 mg Documented By: FAZAL Senna (Sennosides 8.6 Mg Tablet) 17.2 mg PO BEDTIME PRN PRN Reason: Constipation Sodium Chloride (0.9 % Sodium Chloride Flush 3 Ml Syringe) 3 ml IVFLUSH QSHIFT [facility] Last Admin: 07/19/22 08:06 Dose: Not Given Documented By: POOJA Non-Admin Reason: IV Running Thiamine HCl (Thiamine Hcl 100 Mg Tablet) 100 mg PO DAILY [facility] Last Admin: 07/19/22 07:59 Dose: 100 mg Documented By: POOJA Trazodone HCl (Trazodone Hcl 100 Mg Tablet) 100 mg PO BEDTIME [facility] Last Admin: 07/18/22 21:58 Dose: 100 mg Documented By: ZAN Vitamin D (Cholecalciferol (Vitamin D3) 25 Mcg Tablet) 50 mcg PO DAILY [facility] Last Admin: 07/19/22 07:59 Dose: 50 mcg Documented By: POOJA Labs 07/18/22 11:36 07/18/22 11:36 Labs: Laboratory Results - last 24 hr 07/18/22 07/18/22 07/19/22 17:33 20:49 07:54 POC Glucose 203 H 128 H Troponin I High Sens 20.1 H Urine Color Urine Appearance Urine pH Ur Specific [place] Urine Protein Urine Glucose (UA) Urine Ketones Urine Blood Urine Nitrite Ur Leukocyte Esterase Urine RBC Urine WBC Ur Squamous Epith Cells Urine Bacteria Hyaline Casts 07/19/22 07/19/22 09:55 11:02 POC Glucose 143 H Troponin I High Sens Urine Color Yellow Urine Appearance Clear Urine pH 5.5 Ur Specific [place] 1.010 Urine Protein Trace Urine Glucose (UA) >=1000 H Urine Ketones Negative Urine Blood Negative Urine Nitrite Negative Ur Leukocyte Esterase Negative Urine RBC 0-2 Urine WBC 0-5 Ur Squamous Epith Cells 0-2 Urine Bacteria None Seen Hyaline Casts 0-2 Assessment and Plan (1) Orthostatic hypotension: Status: Acute (2) Atrial fibrillation with rapid ventricular response: Status: Acute Plan Pt is a 72-year-old female with a PMH significant for HTN, HLD, ywt-gajzmbc-ohbvexcnw diabetes, CAD, paroxysmal AFib on Xarelto, CKD, CHF, insomnia, ELHAM, anxiety/depression, pulmonary hypertension, hx of CVA, and restless leg syndrome?who presents to the ED with?palpitations and multiple other complaints. Pt will be admitted to the hospital on telemetry for treatment and further evaluation on AFib with RVR. paroxysmal AFib with RVR back to sinus Continue atenolol, Xarelto Echocardiogram Cardiology input appreciated telemetry Elevated troponins Patient with initial troponin of 14.3, repeat 20.1 Likely type 2 demand ischemia, EKG negative for ST elevations or depressions, patient not complain of chest pain/pressure Positive orthostatics Possibly secondary to AFib with RVR gentle IV fluid resuscitation Repeat orthostatics Diarrhea Patient complaining of diarrhea for the past 7 days with at least 3 watery stools daily, improved today with only 1 episode Unclear etiology, no clear infectious source, patient afebrile, WBC WNL Patient receiving gentle IVF resuscitation Consider GI panel tomorrow if diarrhea persists Polyuria Patient states she has been urinating much more frequently than normal Denies dysuria Check UA Headache Possiblysecondary to recent fall CT of head negative for acute intracranial pathology Acetaminophen for pain Fdk-vrrcuwu-tbeckbybz diabetes Hold home meds SSI Hx of HFpEF Does not appear in acute exacerbation Continue home diuretics HTN Continue home meds HLD Continue home meds Full Code Attending:?Dr. Moya DVT Prophylaxis: On Xarelto Pt will require a hospitalization of overnight for treatment and evaluation of?AFib with RVR pending safe discharge plan. Time Spent With Patient Time: Total time managing care of this patient today ____ minutes. Quality Stroke Does the patient have a stroke diagnosis?: No VTE Prior VTE?: No VTE Risk Level:: Medical - moderate - high VTE Device Contraindication: Treatment Not Indicated VTE Drug Contraindication: N/A - Med Ordered
[2022-07-19] MEDS: Acetaminophen 325 MG TABLET 650 MG PO (14:02)
[2022-07-19 15:19] LABS: Glucose, Whole Blood 138 mg/dL (60-115)
[2022-07-19] MEDS: oxyCODONE HCl Immed Release 5 MG TABLET PO ×2 (15:41→21:47)
[2022-07-19] MEDS: Rivaroxaban 20 MG TABLET PO (17:33)
[2022-07-19 20:11] LABS: Glucose, Whole Blood 126 mg/dL (60-115)
[2022-07-19] MEDS: rOPINIRole HCL 0.25 MG TABLET 0.5 MG PO (21:47)
[2022-07-19] MEDS: traZODone HCL 100 MG TABLET PO (21:47)
[2022-07-19] MEDS: Atorvastatin Calcium 80 MG TABLET PO (21:47)
[2022-07-20] VITALS (13 sets, daily range): BP systolic 125–214; BP diastolic 50–88; PULSE 52–92; RESP 16–20; TEMP 36.6–37.2; O2SAT 93–98
--- NOTE | 2022-07-20 00:30 | PC.NURSE ---
Pt's orthostatic BP's were as follows: supine 214/88; seated 192/70; standing 172/74. MD aware. No new orders at this time. Will continue with plan of care.
[2022-07-20] MEDS: Omeprazole 40 MG CAPSULE.DR PO (05:51)
[2022-07-20 07:30] LABS: Glucose, Whole Blood 137 mg/dL (60-115)
[2022-07-20] MEDS: 0.9 % Sodium Chloride Flush 3 ML SYRINGE IVFLUSH ×3 (08:10→21:31)
[2022-07-20] MEDS: Empagliflozin 25 MG TABLET PO (08:10)
[2022-07-20] MEDS: Escitalopram Oxalate 10 MG TABLET PO (08:10)
[2022-07-20] MEDS: Loratadine 10 MG TABLET PO (08:11)
[2022-07-20] MEDS: Fenofibrate 160 MG TABLET PO (08:11)
[2022-07-20] MEDS: atenoloL 50 MG TABLET PO (08:11)
[2022-07-20] MEDS: Mirabegron 50 MG TAB.ER.24H PO (08:11)
[2022-07-20] MEDS: Thiamine HCL 100 MG TABLET PO (08:11)
[2022-07-20] MEDS: Ferrous Sulfate 324 MG TABLET.DR PO (08:11)
[2022-07-20] MEDS: Magnesium Oxide 400 MG TABLET 200 MG PO (08:11)
[2022-07-20] MEDS: Furosemide 40 MG TABLET PO (08:11)
[2022-07-20] MEDS: Cyanocobalamin (Vitamin B-12) 1,000 MCG TABLET 1000 MCG PO (08:12)
[2022-07-20] MEDS: Gabapentin 600 MG TABLET PO ×3 (08:12→21:27)
[2022-07-20] MEDS: Losartan Potassium 25 MG TABLET PO (08:12)
[2022-07-20] MEDS: Cholecalciferol (Vitamin D3) 25 MCG TABLET 50 MCG PO (08:15)
[2022-07-20] MEDS: Fluticasone Propionate Nasal 16 GM SPRAY 1 SPRAY NOSTRIL-B (08:17)
[2022-07-20 11:19] LABS: Glucose, Whole Blood 237 mg/dL (60-115)
[2022-07-20] MEDS: Insulin Lispro 100 UNIT/ML 3 ML VIAL SUBCUT ×2 (11:53→16:29)
--- NOTE | 2022-07-20 13:42 | HO.PM.IMPN ---
Subjective Subjective Date of Service: 07/20/22 Interval History: the patient was seen and evaluated this morning Laying in bed, feels comfortable Rhythm improved back to sinus no more lightheadedness No reported other overnight events. Review of Systems No fever, chills or weakness No chest pain, palpitation No shortness of breath or coughing No abdominal pain, nausea or vomiting No urinary symptoms No reported rash Physical Exam Vital Signs: Vital Signs: Last Vital Signs Temp 98.4 F 07/20/22 11:48 Pulse 57 07/20/22 11:48 Resp 16 07/20/22 11:48 BP 139/61 07/20/22 11:48 Pulse Ox 98 07/20/22 11:48 O2 Del Method 07/20/22 11:48 BMI result Body Mass Index 40.7 Const: Other: Constitutional : Awake, interactive, not in distress Neck : Normal inspection, Supple Cardiovascular : RRR, no JVP, no lower extremity edema Respiratory : good bilateral air entry, no crackles, wheezes or rhonchi Gastrointestinal: soft, lax, Normal bowel sounds, Non tender Skin : Warm, Dry Neurological : Alert & oriented x3, No focal deficit , CN 2-12 within normal Objective Data Active Medications Acetaminophen (Acetaminophen 325 Mg Tablet) 650 mg PO Q6H PRN PRN Reason: Pain, Mild (Pain Scale 1-3) Last Admin: 07/19/22 14:02 Dose: 650 mg Documented By: POOJA Atenolol (Atenolol 50 Mg Tablet) 50 mg PO DAILY [facility]; Protocol Last Admin: 07/20/22 08:11 Dose: 50 mg Documented By: JOSE Atorvastatin Calcium (Atorvastatin Calcium 80 Mg Tablet) 80 mg PO BEDTIME [facility] Last Admin: 07/19/22 21:47 Dose: 80 mg Documented By: BENEDICTO Baclofen (Baclofen 10 Mg Tablet) 5 mg PO TID PRN PRN Reason: muscle spasm Cyanocobalamin (Cyanocobalamin (Vitamin B-12) 1,000 Mcg Tablet) 1,000 mcg PO DAILY [facility] Last Admin: 07/20/22 08:12 Dose: 1,000 mcg Documented By: JOSE Docusate Sodium (Docusate Sodium 100 Mg Capsule) 100 mg PO BID PRN PRN Reason: constipation Empagliflozin (Empagliflozin 25 Mg Tablet) 25 mg PO DAILY [facility] Last Admin: 07/20/22 08:10 Dose: 25 mg Documented By: JOSE Escitalopram Oxalate (Escitalopram Oxalate 10 Mg Tablet) 10 mg PO DAILY [facility] Last Admin: 07/20/22 08:10 Dose: 10 mg Documented By: JOSE Fenofibrate (Fenofibrate 160 Mg Tablet) 160 mg PO DAILY [facility] Last Admin: 07/20/22 08:11 Dose: 160 mg Documented By: JOSE Ferrous Sulfate (Ferrous Sulfate 324 Mg Tablet.Dr) 324 mg PO DAILY [facility] Last Admin: 07/20/22 08:11 Dose: 324 mg Documented By: JOSE Fluticasone Propionate (Fluticasone Propionate Nasal 16 Gm [place]) 1 spray NOSTRIL-B DAILY [facility] Last Admin: 07/20/22 08:17 Dose: 1 spray Documented By: JOSE Furosemide (Furosemide 40 Mg Tablet) 40 mg PO DAILY [facility]; Protocol Last Admin: 07/20/22 08:11 Dose: 40 mg Documented By: JOSE Gabapentin (Gabapentin 600 Mg Tablet) 600 mg PO TID [facility] Last Admin: 07/20/22 08:12 Dose: 600 mg Documented By: JOSE Glucose (Glucose Gel 15 Gm Gel..Gram.) 15 gm PO Q15M PRN; Protocol PRN Reason: per Hypoglycemia Standing Ord. Hydroxyzine HCl (Hydroxyzine Hcl 25 Mg Tablet) 25 mg PO Q8H PRN PRN Reason: anxiety/restlessness Last Admin: 07/19/22 22:41 Dose: 25 mg Documented By: BENEDICTO Dextrose (D10) 250 mls @ 750 mls/hr IV Q15M PRN; Protocol PRN Reason: per Hypoglycemia Standing Ord. Insulin Human Lispro (Insulin Lispro 100 Unit/Ml 3 Ml Vial) 0 unit SUBCUT QIDACHS [facility]; Protocol Last Admin: 07/20/22 11:53 Dose: 4 unit Documented By: LEON Loratadine (Loratadine 10 Mg Tablet) 10 mg PO DAILY [facility] Last Admin: 07/20/22 08:11 Dose: 10 mg Documented By: JOSE Losartan Potassium (Losartan Potassium 25 Mg Tablet) 25 mg PO DAILY [facility]; Protocol Last Admin: 07/20/22 08:12 Dose: 25 mg Documented By: JOSE Magnesium Oxide (Magnesium Oxide 400 Mg Tablet) 200 mg PO DAILY [facility] Last Admin: 07/20/22 08:11 Dose: 200 mg Documented By: JOSE Comments: Mirabegron (Mirabegron 50 Mg Tab.Er.24h) 50 mg PO DAILY [facility] Last Admin: 07/20/22 08:11 Dose: 50 mg Documented By: JOSE Non-Formulary Medication (Dulaglutide [Trulicity]) 3 mg SUBCUT TH@0900 [facility] Non-Formulary Medication (Fesoterodine) 8 mg PO DAILY [facility] Non-Formulary Medication (Riboflavin (Vitamin B2)) 400 mg PO DAILY [facility] Omeprazole (Omeprazole 40 Mg Capsule.Dr) 40 mg PO DAILY@0630 [facility] Last Admin: 07/20/22 05:51 Dose: 40 mg Documented By: BENEDICTO Oxycodone HCl (Oxycodone Hcl Immed Release 5 Mg Tablet) 5 mg PO Q6H PRN PRN Reason: Pain, Severe (Pain Scale 7-10) Last Admin: 07/19/22 21:47 Dose: 5 mg Documented By: BENEDICTO Pharmacy Consult (Consult Rx Perform Med Rec) 1 each MISCELLANE ONCE PRN PRN Reason: Consult order Rivaroxaban (Rivaroxaban 20 Mg Tablet) 20 mg PO DAILY@1700 [facility] Last Admin: 07/19/22 17:33 Dose: 20 mg Documented By: POOJA Ropinirole HCl (Ropinirole Hcl 0.25 Mg Tablet) 0.5 mg PO BEDTIME [facility] Last Admin: 07/19/22 21:47 Dose: 0.5 mg Documented By: BENEDICTO Senna (Sennosides 8.6 Mg Tablet) 17.2 mg PO BEDTIME PRN PRN Reason: Constipation Sodium Chloride (0.9 % Sodium Chloride Flush 3 Ml Syringe) 3 ml IVFLUSH QSHIFT [facility] Last Admin: 07/20/22 08:10 Dose: 3 ml Documented By: JOSE Thiamine HCl (Thiamine Hcl 100 Mg Tablet) 100 mg PO DAILY [facility] Last Admin: 07/20/22 08:11 Dose: 100 mg Documented By: JOSE Trazodone HCl (Trazodone Hcl 100 Mg Tablet) 100 mg PO BEDTIME [facility] Last Admin: 07/19/22 21:47 Dose: 100 mg Documented By: BENEDICTO Vitamin D (Cholecalciferol (Vitamin D3) 25 Mcg Tablet) 50 mcg PO DAILY [facility] Last Admin: 07/20/22 08:15 Dose: 50 mcg Documented By: JOSE Labs 07/18/22 11:36 07/18/22 11:36 Labs: Laboratory Results - last 24 hr 07/19/22 07/19/22 07/20/22 14:49 19:47 07:26 POC Glucose 138 H 126 H 137 H 07/20/22 11:11 POC Glucose 237 H Assessment and Plan (1) Orthostatic hypotension: Status: Acute (2) Atrial fibrillation with rapid ventricular response: Status: Acute Plan Pt is a 72-year-old female with a PMH significant for HTN, HLD, wdo-ebentex-wjhmdpxst diabetes, CAD, paroxysmal AFib on Xarelto, CKD, CHF, insomnia, ELHAM, anxiety/depression, pulmonary hypertension, hx of CVA, and restless leg syndrome?who presents to the ED with?palpitations and multiple other complaints. Pt will be admitted to the hospital on telemetry for treatment and further evaluation on AFib with RVR. paroxysmal AFib with RVR back to sinus Continue atenolol, Xarelto Echocardiogram normal EF Cardiology input appreciated telemetry Elevated troponins Patient with initial troponin of 14.3, repeat 20.1 Likely type 2 demand ischemia, EKG negative for ST elevations or depressions, patient not complain of chest pain/pressure Positive orthostatics resolved follow orthostatics Diarrhea resolved Polyuria Denies dysuria no infx in UA Headache CT of head negative for acute intracranial pathology Acetaminophen for pain Tho-omammnc-hocvpcfqn diabetes Hold home meds SSI Hx of HFpEF Does not appear in acute exacerbation Continue home diuretics HTN Continue home meds HLD Continue home meds Full Code Attending:?Dr. Moya DVT Prophylaxis: On Xarelto Pt will require a hospitalization of overnight pending PT eval and safe discharge plan Time Spent With Patient Time: Total time managing care of this patient today ____ minutes. Quality Stroke Does the patient have a stroke diagnosis?: No VTE Prior VTE?: No VTE Risk Level:: Medical - moderate - high VTE Device Contraindication: Treatment Not Indicated VTE Drug Contraindication: N/A - Med Ordered
[2022-07-20 16:14] LABS: Glucose, Whole Blood 162 mg/dL (60-115)
[2022-07-20] MEDS: Rivaroxaban 20 MG TABLET PO (16:29)
[2022-07-20] MEDS: Baclofen 10 MG TABLET 5 MG PO (16:32)
[2022-07-20 20:26] LABS: Glucose, Whole Blood 137 mg/dL (60-115)
[2022-07-20] MEDS: rOPINIRole HCL 0.25 MG TABLET 0.5 MG PO (21:26)
[2022-07-20] MEDS: hydrOXYzine HCL 25 MG TABLET PO (21:27)
[2022-07-20] MEDS: traZODone HCL 100 MG TABLET PO (21:27)
[2022-07-20] MEDS: Atorvastatin Calcium 80 MG TABLET PO (21:27)
[2022-07-20] MEDS: oxyCODONE HCl Immed Release 5 MG TABLET PO (21:27)
[2022-07-21 03:49] VITALS: BP 160/80; PULSE 56; RESP 18; TEMP 37.1; O2SAT 98
[2022-07-21] MEDS: Omeprazole 40 MG CAPSULE.DR PO (06:28)
[2022-07-21 07:47] LABS: Glucose, Whole Blood 152 mg/dL (60-115)
[2022-07-21] MEDS: Insulin Lispro 100 UNIT/ML 3 ML VIAL SUBCUT ×2 (07:55→11:42)
[2022-07-21] MEDS: Cholecalciferol (Vitamin D3) 25 MCG TABLET 50 MCG PO (07:55)
[2022-07-21 07:56] LABS: Anion Gap 14 (12-20); Blood Urea Nitrogen 24 mg/dL (9-16); Calcium 9.1 mg/dL (8.4-10.2); Carbon Dioxide 28 mmol/L (22-29); Chloride 100 mmol/L (96-108); Estimated Glomerular Filt Rate 54; Glucose Random 150 mg/dL (60-115); Potassium 3.9 mmol/L (3.3-5.1); Sodium 138 mmol/L (135-145)
[2022-07-21] MEDS: Escitalopram Oxalate 10 MG TABLET PO (07:56)
[2022-07-21] MEDS: Cyanocobalamin (Vitamin B-12) 1,000 MCG TABLET 1000 MCG PO (07:56)
[2022-07-21] MEDS: Losartan Potassium 25 MG TABLET PO (07:56)
[2022-07-21] MEDS: 0.9 % Sodium Chloride Flush 3 ML SYRINGE IVFLUSH (07:56)
[2022-07-21] MEDS: Magnesium Oxide 400 MG TABLET 200 MG PO (07:56)
[2022-07-21] MEDS: Thiamine HCL 100 MG TABLET PO (07:56)
[2022-07-21 07:57] VITALS: BP 138/68; PULSE 56; RESP 20; TEMP 36.4; O2SAT 94
[2022-07-21] MEDS: Baclofen 10 MG TABLET 5 MG PO (07:57)
[2022-07-21] MEDS: Gabapentin 600 MG TABLET PO (07:58)
[2022-07-21] MEDS: atenoloL 50 MG TABLET PO (07:58)
[2022-07-21] MEDS: Mirabegron 50 MG TAB.ER.24H PO (07:58)
[2022-07-21] MEDS: Ferrous Sulfate 324 MG TABLET.DR PO (07:58)
[2022-07-21] MEDS: Fenofibrate 160 MG TABLET PO (07:58)
[2022-07-21] MEDS: Furosemide 40 MG TABLET PO (07:58)
[2022-07-21] MEDS: Loratadine 10 MG TABLET PO (07:58)
[2022-07-21] MEDS: Empagliflozin 25 MG TABLET PO (07:58)
[2022-07-21] MEDS: Fluticasone Propionate Nasal 16 GM SPRAY 1 SPRAY NOSTRIL-B (07:59)
[2022-07-21 08:00] VITALS: BP 111/54; PULSE 53
[2022-07-21 10:37] VITALS: BP 118/58; PULSE 62
[2022-07-21 10:43] VITALS: BP 116/59; PULSE 72
[2022-07-21 10:51] LABS: Glucose, Whole Blood 183 mg/dL (60-115)
--- NOTE | 2022-07-21 11:11 | PM.DS ---
DS: Providers Provider Date of Service: 07/21/22 Date of admission: 07/18/22 20:01 Primary care physician: Marla Bray MD Consults: 07/18/22 20:06 Consult to Cardiology Routine Consulting Provider: [facility] [place] Cardiovascular Services Reason for consultation: AFib with RVR DS: Diagnosis Discharge Diagnosis (1) Orthostatic hypotension: Status: Acute (2) Atrial fibrillation with rapid ventricular response: Status: Acute (3) Physical deconditioning: Status: Acute DS: Summary Hospital Course Hospital Course: Admission note HPI Pt is a 72-year-old female with a PMH significant for HTN, HLD, lzx-hamhnab-xckizjrne diabetes, CAD, paroxysmal AFib on Xarelto, CKD, CHF, insomnia, ELHAM, anxiety/depression, pulmonary hypertension, hx of CVA, and restless leg syndrome?who presents to the ED with?palpitations and multiple other complaints.? Patient states that she has had lightheadedness, weakness, SOB, and headaches for 1 week. This coincides with her reluctantly moving out of her house of 51 years and into a small apartment. Pt tripped during her first week in the apartment and fell to the floor, hitting her head. Denies LOC. Pt did not come to the ED for her fall. This morning at 08:30, pt was eating breakfast and began to experience palpitations, which prompted her visit to the ED. Pt also complains of polyuria and diarrhea x1 week. Has had 3 watery stools per day, though better today with only one episode before coming to the ED. Pt denies fever, chills, nausea, vomiting. No abdominal pain. Denies hematochezia or melena. Of note, during interview and examination, pt's heart rate was jumping from 90s to 140s; however, pt soon converted to NSR in the 80s around 20:00. In the ED patient was tachycardic up to the 140s, tachypneic up to 22. Labs were significant for BUN of 22 (chronically elevated, at baseline), and initial troponin of 14.3 with repeat of 20.1. CXR showed no acute intrathoracic disease.? X-ray of knee showed no acute findings.? CT?of head showed no evidence of acute territorial infarct or hemorrhage, but chronic changes of an old lacunar infarct or hemorrhage with asymmetric loss of parenchymal volume a numerous chronic small-vessel ischemic changes within periventricular white matter. EKG demonstrated AFib with a rate of 98 and with no evidence of ST elevations or depressions. Repeat? EKG showed normal sinus rhythm with heart rate of 70. Orthostatics positive. Pt will be admitted to the hospital on telemetry for treatment and further evaluation on AFib with RVR. Hospital course The patient was admitted for treatment of atrial fibrillaytion w RVR and orthostatic hypotension likely secondary to it. treated with BB with good response as she converted back to sinus rhythm and kept on Atenolol as she was evaluated by cardiology team. orthostatic vitals went back to normal baseline as Afib converted. Echo was done showing EF of 70% with mild-mod aortic stenosis and mod Mitral stenosis. Evaluated by PT team who recommended outpatient PT. she would prefer to come to PT office as OP rather than doing it at home. Continue home medications Follow up with cardiology as outpatient To do physical therapy Time Spent with Patient Time attestation: Total time managing care of this patient today ____ minutes. Discharge coordination time: Greater than 30 minutes Quality: Safe Use of Opioids Does Pt have an Active Cancer Diagnosis on the Problem List?: No Quality: Stroke Does the patient have a stroke diagnosis?: No Physical Exam Vital Signs: Vital Signs: Last Vital Signs Temp 97.6 F 07/21/22 07:57 Pulse 72 07/21/22 10:43 Resp 20 07/21/22 07:57 BP 116/59 L 07/21/22 10:43 Pulse Ox 94 07/21/22 07:57 O2 Del Method 07/21/22 07:57 BMI result Body Mass Index 40.7 Const: Other: Constitutional : Awake, interactive, not in distress Neck : Normal inspection, Supple Cardiovascular : RRR, no JVP, no lower extremity edema Respiratory : good bilateral air entry, no crackles, wheezes or rhonchi Gastrointestinal: soft, lax, Normal bowel sounds, Non tender Skin : Warm, Dry Neurological : Alert & oriented x3, No focal deficit , CN 2-12 within normal DS: Data Data Completed and Pending Labs on day of discharge: Laboratory Results - last 24 hr 07/20/22 07/20/22 07/20/22 11:11 16:09 20:22 Sodium Potassium Chloride Carbon Dioxide Anion Gap BUN Creatinine Estim Creat Clear Calc Estimated GFR POC Glucose 237 H 162 H 137 H Random Glucose Calcium 07/21/22 07/21/22 07/21/22 06:51 07:38 10:44 Sodium 138 Potassium 3.9 Chloride 100 Carbon Dioxide 28 Anion Gap 14 BUN 24 H Creatinine 1.00 Estim Creat Clear Calc 57.0 Estimated GFR 54 POC Glucose 152 H 183 H Random Glucose 150 H Calcium 9.1 Imaging Chest x-ray: Radiologist's impression: ITS Impressions Chest X-Ray 07/18/22 11:58 IMPRESSION: No acute intrathoracic disease. Head CT 07/18/22 12:17 IMPRESSION: There are chronic changes of an old lacunar infarct or hemorrhage with asymmetric loss of parenchymal volume within the left putamen and left caudate body. Numerous chronic small vessel ischemic changes are also visualized within the periventricular white matter. No evidence of acute territorial infarct or hemorrhage. Knee X-Ray 07/18/22 13:47 IMPRESSION: Tricompartmental degenerative changes with chondrocalcinosis. No acute finding. Discharge Plan Discharge Anticipated Discharge Date/Time: 07/21/22 10:55 Patient Disposition: Home Health Service Discharge Diagnosis: Atrial fibrillation with rapid ventricular response Orthostatic hypotension Referrals: Marla Henderson MD [Primary Care Provider] - 1 Week Discharge Medications: Continued fenofibrate 160 mg tablet 160 mg PO DAILY 90 Days Qty: 90 3RF loratadine 10 mg tablet 10 mg PO DAILY 90 Days Qty: 90 0RF thiamine HCl (vitamin B1) 100 mg tablet 100 mg PO DAILY 90 Days Qty: 90 1RF atenolol 50 mg tablet 50 mg PO DAILY 90 Days Qty: 90 3RF hydroxychloroquine [Plaquenil] 200 mg tablet 200 mg PO BID Qty: 180 3RF furosemide 40 mg tablet 40 mg PO DAILY 90 Days Qty: 90 0RF ferrous sulfate 325 mg (65 mg iron) tablet 325 mg PO DAILY 90 Days Qty: 90 1RF fesoterodine 8 mg tablet extended release 24 hr 8 mg PO DAILY Qty: 30 6RF fluticasone propionate 50 mcg/actuation spray,suspension 1 spray intranasal DAILY 90 Days Qty: 16 3RF Rx Instructions: administer into each nostril Myrbetriq 50 mg tablet extended release 24 hr 50 mg PO DAILY 90 Days Qty: 90 1RF (DME) blood-glucose meter [OneTouch Verio Meter] [facility] See Rx Instructions .Route Qty: 1 0RF Rx Instructions: As directed (DME) OneTouch Verio test strips Strip See Rx Instructions .Route Qty: 100 5RF Rx Instructions: Use 1 test strip twice a day (DME) lancets [OneTouch UltraSoft Lancets] [facility] [place] See Rx Instructions .Route Qty: 100 3RF Rx Instructions: USe 1 lancet once a day cholecalciferol (vitamin D3) 50 mcg (2,000 unit) tablet 2,000 unit PO DAILY 90 Days Qty: 90 3RF cyanocobalamin (vitamin B-12) 1,000 mcg tablet 1,000 mcg PO DAILY 90 Days Qty: 90 3RF gabapentin 600 mg tablet 600 mg PO TID 90 Days Qty: 270 1RF ketoconazole 2 % cream 1 appl topical BID 30 Days Qty: 30 0RF oxycodone 5 mg tablet 5 mg PO Q6H PRN (Reason: pain) 30 Days Qty: 120 0RF docusate sodium [DOK] 100 mg capsule 100 mg PO BID PRN (Reason: constipation) 90 Days Qty: 180 2RF Jardiance 25 mg tablet 25 mg PO DAILY 90 Days Qty: 90 3RF magnesium 200 mg tablet 200 mg PO DAILY 90 Days Qty: 90 5RF escitalopram oxalate [Lexapro] 10 mg tablet 10 mg PO DAILY 90 Days Qty: 90 1RF trazodone 100 mg tablet 100 mg PO BEDTIME 90 Days Qty: 90 1RF rosuvastatin [Crestor] 40 mg tablet 40 mg PO BEDTIME 90 Days Qty: 90 1RF metformin 1,000 mg tablet 1,000 mg PO BIDWM 90 Days Qty: 180 1RF losartan 25 mg tablet 25 mg PO DAILY 90 Days Qty: 90 0RF omeprazole 40 mg capsule,delayed release(DR/EC) 40 mg PO DAILY@0630 90 Days Qty: 90 1RF ropinirole 0.25 mg tablet 2 tab PO BEDTIME estradiol 0.01 % (0.1 mg/gram) cream 1 appl vaginal 3XW (DME) pen needle, diabetic [BD Meghan 2nd Gen Pen Needle] 32 gauge x 5/32 needle MISCELLANEOUS DAILY acetaminophen 325 mg Tablet 650 mg PO Q6H PRN (Reason: Pain (Scale Score 1-3)) sennosides [senna] 8.6 mg tablet 17.2 mg PO BEDTIME PRN (Reason: Constipation) baclofen 10 mg tablet 5 mg PO TID PRN (Reason: muscle spasm) Xarelto 20 mg tablet 20 mg PO DAILY@1700 insulin degludec [Tresiba FlexTouch U-100] 100 unit/mL (3 mL) insulin pen 0 - 10 unit subcut BEDTIME Trulicity 3 mg/0.5 mL pen injector 3 mg subcut TH@0900 riboflavin (vitamin B2) 400 mg tablet 400 mg PO DAILY Qty: 30 0RF Discharge Orders: Discharge Order (Routine); Ordered 07/21/22 Ordered By: Bebe Larkin Diet: Advance to usual diet Activity on Discharge: As tolerated Stand Alone Forms: Patient Portal Discharge page Care Plan Goals: Read below Health Concerns: Read below Plan of Treatment: Read below Assessment: You were admitted to the hospital for treatment of rapid irregular heart rate and dizziness. responded well to IV and oral medications as heart rate improved back to regular baseline and dizziness resolved. evaluated by cardiology team as an ECHO was done showing within normal heart function with moderate stenosis in aortic and mitral valves. evaluated by physical therapy who recommended outpatient therapy for you. Continue home medications Follow up with cardiology as outpatient To do physical therapy
[2022-07-21 11:12] VITALS: BP 118/58; PULSE 64; RESP 20; TEMP 36.2; O2SAT 92
--- NOTE | 2022-07-21 11:16 | MHC.CM.PN ---
DP: PT HAS BEEN MEDICALLY CLEARED FOR DC HOME. PT DECLINES IN HOME THERAPY AND REQUESTS OUTPATIENT SERVICES AT CORE. SCHEDULING INFORMATION PROVIDED. MD AWARE. RN AWARE. [facility] WILL TRANSPORT HOME.
== END 2022-07-21 13:10 | disposition home or self-care (01) | DRG 309 ==
LOC: HO.ED 17:19 → HO.EDOVER 20:24 → HO.IMC 07-19 00:13
PROVIDERS: Nurse Practitioner Family; Admitting Provider Student in an Organized Health Care Education/Training Program; Emergency Provider Emergency Medicine Emergency Medical Services; PCP Internal Medicine; Visit Provider Student in an Organized Health Care Education/Training Program
DX: I48.0 Paroxysmal atrial fibrillation (principal); I13.0 Hypertensive heart and chronic kidney disease with heart failure and stage 1 through stage 4 chronic kidney disease, or unspecified chronic kidney disease; I50.32 Chronic diastolic (congestive) heart failure; I69.351 Hemiplegia and hemiparesis following cerebral infarction affecting right dominant side; E11.22 Type 2 diabetes mellitus with diabetic chronic kidney disease; I69.393 Ataxia following cerebral infarction; I69.322 Dysarthria following cerebral infarction; N18.9 Chronic kidney disease, unspecified; E86.0 Dehydration; G47.33 Obstructive sleep apnea (adult) (pediatric); I25.10 Atherosclerotic heart disease of native coronary artery without angina pectoris; E11.40 Type 2 diabetes mellitus with diabetic neuropathy, unspecified; E78.5 Hyperlipidemia, unspecified; G25.81 Restless legs syndrome; I95.1 Orthostatic hypotension; Z95.5 Presence of coronary angioplasty implant and graft; I08.0 Rheumatic disorders of both mitral and aortic valves; Z20.822 Contact with and (suspected) exposure to COVID-19; Z87.891 Personal history of nicotine dependence; Z88.2 Allergy status to sulfonamides; Z88.5 Allergy status to narcotic agent; Z88.8 Allergy status to other drugs, medicaments and biological substances; Z79.4 Long term (current) use of insulin; Z79.01 Long term (current) use of anticoagulants; Z79.84 Long term (current) use of oral hypoglycemic drugs; Z79.899 Other long term (current) drug therapy
CPT/HCPCS: 36415; 70450; 71046; 73560; 80048; 80053; 81001; 82947; 84484; 85025; 85610; 87502; 87635; 93005; 93306; 94660; 96360; 96361; 97162; 99285; Q9957

== ENCOUNTER → 2022-07-23 08:31 | Outpatient (BNVA) | payer MEDICARE, SELFPAY | PROVIDERS: PCP Internal Medicine; Visit Provider Psychiatry & Neurology Neurology | DX: I69.322 Dysarthria following cerebral infarction (principal); I69.351 Hemiplegia and hemiparesis following cerebral infarction affecting right dominant side; I69.393 Ataxia following cerebral infarction | CPT/HCPCS: 99202 ==

== ENCOUNTER 2022-08-20 23:52 | Inpatient (IN) | payer MEDICARE, SELFPAY ==
--- NOTE | ~2022-08-20 | XR_ITS ---
EXAMINATION: XR CHEST CLINICAL INFORMATION: New pacemaker COMPARISON: July 18, 2022 TECHNIQUE: AP portable view of the chest was obtained. FINDINGS: Patient has developed bilateral interstitial and airspace disease with the appearance of possible pulmonary edema versus infectious or inflammatory process. Dual-chamber pacemaker in place with no abnormality appreciated. No pneumothorax or significant pleural effusion. Heart normal size. Neural stimulator is in place. XR/XR chest 1V IMPRESSION: Development of bilateral regions of disease since previous study of July 18, 2022 which may be related to edema.
--- NOTE | ~2022-08-20 | FL_ITS ---
EXAMINATION: XR FLUOROSCOPY WITH IMAGES CLINICAL INFORMATION: Pacemaker insertion COMPARISON: CXR from 07/18/2022 TECHNIQUE: Fluoroscopy Supervised By: Dr. Rose. Fluoroscopy Time: 265.2 sec. Cumulative Dose: 96.85 mGy. DAP: This information is not provided on the dose data sheet FL/FL guidance in [place] FINDINGS AND IMPRESSION: This report is given to document use of intraoperative fluoroscopic imaging equipment during cardiac pacemaker placement. There is a left pectoral region cardiac pulse generator with attached transvenous leads that extend to the right atrium and apex of right ventricle.
--- NOTE | ~2022-08-20 | XR_ITS ---
EXAMINATION: XR CHEST CLINICAL INFORMATION: Follow-up new pacemaker wires. COMPARISON: 08/23/2022. TECHNIQUE: Portable AP view of the chest was obtained. XR/XR chest 1V FINDINGS/IMPRESSION: The study is limited by portable technique and low lung volumes. There is been improvement in previously described bilateral interstitial and airspace disease compared with one day prior, with no significant remaining infiltrate appreciated. No effusion or pneumothorax is seen. The cardiac silhouette is suboptimally evaluated. The tips of left subclavian pulse generator device leads project over the right atrium and right ventricle. The aorta is mildly atherosclerotic. There are mild degenerative changes of the spine and shoulders.
[2022-08-21] VITALS (12 sets, daily range): BP systolic 113–220; BP diastolic 52–90; PULSE 56–123; RESP 16–27; TEMP 36.1–37; O2SAT 92–97; BMI 37.2
--- NOTE | 2022-08-21 | ECG_ITS ---
Test Reason : CHEST PAIN Blood Pressure : / mmHG Vent. Rate : 123 BPM Atrial Rate : 241 BPM P-R Int : 000 ms QRS Dur : 102 ms QT Int : 356 ms P-R-T Axes : 220 238 000 degrees QTc Int : 509 ms Atrial flutter with 2:1 conduction Right superior axis deviation Pulmonary disease pattern Inferior infarct (cited on or before 18-JUL-2022) Abnormal ECG When compared with ECG of 18-JUL-2022 20:01, Atrial flutter has replaced Sinus rhythm Vent. rate has increased BY 53 BPM Questionable change in QRS axis Serial changes of Inferior infarct Present Referred By: Generic ED Physician Electronically Signed By:KELLY DIAZ MD
[2022-08-21 00:46] LABS: Hematocrit 42.7 % (37.0-47.0); Hemoglobin 13.6 g/dl (12.0-16.0); Mean Corpuscular HGB Conc 31.9 g/dl (31.0-35.0); Mean Corpuscular Hemoglobin 26.6 pg (27.0-33.0); Mean Corpuscular Volume 83.4 fL (80.0-98.0); Mean Platelet Volume 9.4 fL (9.4-12.3); Platelet Count 373 X10*3/uL (160-400); Red Blood Count 5.12 X10*6/uL (4.20-5.50); Red Cell Distribution Width 16.6 % (11.0-16.0); White Blood Count 7.9 X10*3/uL (4.8-10.8)
--- NOTE | 2022-08-21 00:57 | ED.CHESTPAIN ---
HPI - Chest Pain General Chief Complaint: Chest Pain Stated Complaint: Dizziness/Not feeling good Time Seen by Provider: 08/21/22 00:56 Source: patient Mode of arrival: ambulatory Limitations: no limitations History of Present Illness HPI narrative: Patient is 72 years old with history of 2 vessel disease status post JACY heart failure with preserved ejection fraction with atrial fibrillation on beta-tato and Xarelto, diabetic comes here for feeling dizzy for last few days and today prior to arrival patient noticed palpitation with more dizziness on arrival patient's heart rate was in 120s also felt chest discomfort Related Data Home Medications Medication Instructions Recorded Confirmed estradiol 0.01% (0.1 mg/gram) 1 appl vaginal 3XW 11/13/21 07/23/22 vaginal cream ropinirole 0.25 mg tablet 2 tab PO BEDTIME 11/13/21 07/23/22 acetaminophen 325 mg tablet 650 mg PO Q6H PRN Pain (Scale 07/18/22 07/23/22 Score 1-3) baclofen 10 mg tablet 5 mg PO TID PRN muscle spasm 07/18/22 07/23/22 dulaglutide 3 mg/0.5 mL 3 mg subcut TH@0900 07/18/22 07/23/22 subcutaneous pen injector (Trulicity) insulin degludec 100 unit/mL (3 0 - 10 unit subcut BEDTIME 07/18/22 07/23/22 mL) subcutaneous pen (Tresiba FlexTouch U-100 insulin) rivaroxaban 20 mg tablet (Xarelto) 20 mg PO DAILY@1700 07/18/22 07/23/22 sennosides 8.6 mg tablet (senna) 17.2 mg PO BEDTIME PRN Constipation 07/18/22 07/23/22 Previous Rx's Medication Instructions Recorded riboflavin (vitamin B2) 400 mg 400 mg PO DAILY #30 tabs 06/22/21 tablet fenofibrate 160 mg tablet 160 mg PO DAILY 90 days #90 tabs 09/28/21 loratadine 10 mg tablet 10 mg PO DAILY 90 days #90 tabs 11/19/21 thiamine HCl (vitamin B1) 100 mg 100 mg PO DAILY 90 days #90 tabs 02/03/22 tablet atenolol 50 mg tablet 50 mg PO DAILY 90 days #90 tabs 03/22/22 hydroxychloroquine 200 mg tablet 200 mg PO BID #180 tabs 04/03/22 (Plaquenil) furosemide 40 mg tablet 40 mg PO DAILY 90 days #90 tabs 04/15/22 ferrous sulfate 325 mg (65 mg 325 mg PO DAILY 90 days #90 tabs 05/02/22 iron) tablet fesoterodine 8 mg tablet,extended 8 mg PO DAILY #30 tabs 05/02/22 release 24 hr fluticasone propionate 50 1 spray intranasal DAILY 90 days 05/21/22 mcg/actuation nasal #16 grams spray,suspension mirabegron 50 mg tablet,extended 50 mg PO DAILY 90 days #90 tabs 06/04/22 release 24 hr (Myrbetriq) blood sugar diagnostic (OneTouch #100 ea 06/12/22 Verio test strips) blood-glucose meter (OneTouch #1 ea 06/12/22 Verio Meter) lancets (RevinateTouch UltraSoft #100 ea 06/12/22 Lancets) cholecalciferol (vitamin D3) 50 2,000 unit PO DAILY 90 days #90 06/19/22 mcg (2,000 unit) tablet tabs cyanocobalamin (vitamin B-12) 1,000 mcg PO DAILY 90 days #90 tabs 07/11/22 1,000 mcg tablet gabapentin 600 mg tablet 600 mg PO TID 90 days #270 tabs 07/11/22 docusate sodium 100 mg capsule 100 mg PO BID PRN constipation 90 07/19/22 (DOK) days #180 caps empagliflozin 25 mg tablet 25 mg PO DAILY 90 days #90 tabs 07/19/22 (Jardiance) escitalopram oxalate 10 mg tablet 10 mg PO DAILY 90 days #90 tabs 07/19/22 (Lexapro) losartan 25 mg tablet 25 mg PO DAILY 90 days #90 tabs 07/19/22 magnesium 200 mg tablet 200 mg PO DAILY 90 days #90 tabs 07/19/22 metformin 1,000 mg tablet 1,000 mg PO BIDWM 90 days #180 tabs 07/19/22 omeprazole 40 mg capsule,delayed 40 mg PO DAILY@0630 90 days #90 07/19/22 release caps rosuvastatin 40 mg tablet (Crestor) 40 mg PO BEDTIME 90 days #90 tabs 07/19/22 trazodone 100 mg tablet 100 mg PO BEDTIME 90 days #90 tabs 07/19/22 rivaroxaban 20 mg tablet (Xarelto) 20 mg PO DAILY 90 days #90 tabs 07/24/22 oxycodone 5 mg tablet 5 mg PO Q6H PRN pain 30 days #120 08/15/22 tabs ketoconazole 2 % topical cream 1 appl topical BID 30 days #30 08/19/22 grams Allergies Allergy/AdvReac Type Severity Reaction Status Date / Time morphine [Morphine] Allergy Severe ITCHING, Verified 07/23/22 08:39 hives cefdinir Allergy Intermediate hives Verified 07/23/22 08:39 sulfamethoxazole Allergy Intermediate RASH Verified 07/23/22 08:39 trimethoprim Allergy Intermediate RASH Verified 07/23/22 08:39 duloxetine AdvReac Severe altered Verified 07/23/22 08:39 behavior betina AdvReac Mild RUNNY NOSE Verified 07/23/22 08:39 mustard AdvReac Mild RUNNY NOSE Verified 07/23/22 08:39 potato [POTATO] AdvReac Mild ITCHY NOSE Verified 07/23/22 08:39 soybean AdvReac Mild RUNNY NOSE Verified 07/23/22 08:39 cheese AdvReac Intermediate head Uncoded 07/23/22 08:39 congestion Review of Systems Review of Systems: Yes all other systems are reviewed and are negative PMFSH Past Medical History Medical History Acute upper GI bleed Anemia Atherosclerotic cardiovascular disease Chronic heart failure with preserved ejection fraction (HFpEF) CVA (cerebral vascular accident) Diabetes mellitus Diabetes type 2, uncontrolled Diabetic neuropathy Diabetic polyneuropathy Dizziness Dyslipidemia Essential hypertension Falls Hand pain Head injury Headache Hospital discharge follow-up Iron deficiency anemia Ischemic stroke Left hand pain Left hip pain Left knee pain Left shoulder pain Lumbar degenerative disc disease Obesity due to excess calories Other and unspecified hyperlipidemia Paroxysmal atrial fibrillation PONV (postoperative nausea and vomiting) Proteinuria Pulmonary hypertension Pure hypercholesterolemia Thiamine deficiency Thrombus 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 Urge urinary incontinence Surgical History H/O colonoscopy History of Mohs micrographic surgery for skin cancer History of partial hysterectomy Hx of cardiac cath Hx of cervical spine surgery Family History Family History Father Rectal cancer Hypertension Arthritis of knee CVD (cardiovascular disease) Mother Hypertension CVD (cardiovascular disease) Myocardial infarction Diabetes Social History Social History Household Members: [facility] Are you a primary adult caregiver to a significant other at home: No Do you presently have visiting nurse or other home services: No Alcohol intake: never Patient Tobacco Use Status: Former Tobacco user Quit Date: 1993 Tobacco use type: Cigarette e-Cigarette/Vaping Use: Never Used Second Hand Smoke Exposure: No Use of substances other than those prescribed or required for medical reasons: No Advance Directives: Yes Advance Directives on File: Yes Advance Directives Date on File: 07/17/20 Nutrition Risks: No Nutritional Risk service: No Current occupational status: retired Current occupation: Lt handed Cognitive needs: Yes (scodor/walker) Hearing needs: No Vision needs: Yes (glasses) Physical Exam Vital Signs: Vital Signs: Last Vital Signs Temp 97.6 F 08/21/22 04:47 Pulse 68 08/21/22 04:47 Resp 20 08/21/22 04:47 BP 166/66 H 08/21/22 04:47 Pulse Ox 95 08/21/22 04:47 O2 Del Method Room Air 08/21/22 04:47 BMI result Body Mass Index 37.2 Appearance: Alert. Oriented X3. No acute distress. Eyes: PERRLA, No Nystagmus ENT: Pharynx normal. Oral Mucosa moist Neck: Normal inspection. Neck supple. CVS: Tachycardic IRR with heart rate 120s atrial flutter no murmur Pulses normal. Respiratory: No respiratory distress. Equal air entry bilateral, no wheezing/rales/rhonchi Abdomen: Soft and nontender. Bowel sounds are present, no mass palpable, no CVA tenderness Skin: Skin warm and dry. Normal skin color. Normal skin turgor. Extremities: No lower extremity edema. No calf tenderness Neuro: Oriented X 3. No motor deficit. No sensory deficit.No cerebellar signs , cranial nerves II-XII intact Medications Administered Generic Name Dose Route Start Last Admin Trade Name Freq PRN Reason Stop Dose Admin Ondansetron HCl 4 mg 08/21/22 03:57 08/21/22 04:43 Ondansetron Hcl 4 Mg/2 Ml Vial IVPUSH 4 mg Q8H PRN Administration Nausea and Vomiting Discontinued Medications Generic Name Dose Route Start Last Admin Trade Name Mike PRN Reason Stop Dose Admin Acetaminophen 650 mg 08/21/22 03:03 08/21/22 03:09 Acetaminophen 325 Mg Tablet PO 08/21/22 03:04 650 mg ONCE ONE Administration Diltiazem HCl 10 mg 08/21/22 03:27 08/21/22 03:35 Diltiazem Hcl 50 Mg/10 Ml Vial IVPUSH 08/21/22 03:28 10 mg STAT STA Administration Sodium Chloride 1,000 mls @ 999 mls/hr 08/21/22 01:09 08/21/22 03:05 Ns IV 08/21/22 02:09 Infused .Q1H1M ONE Infusion Metoprolol Tartrate 5 mg 08/21/22 01:09 08/21/22 01:15 Metoprolol Tartrate 5 Mg/5 Ml Vial IVPUSH 08/21/22 01:10 5 mg ONCE ONE Administration Medical Decision Making Medical Decision Making [facility] Narrative: Patient with Dizziness near-syncope episode with AFib with diarrhea on beta-tato had poor response to IV Lopressor patient responded to IV Cardizem heart rate improved now with 70 range will admit patient for near-syncope episode with atrial flutter with fast ventricular rate Consult Healthcare Provider Management of the patient was discussed with: Hospitalist Lab Data [facility] Lab Attestation statement: I reviewed the patient's lab results. 08/21/22 00:25 08/21/22 00:25 Labs: Lab Results 08/21/22 08/21/22 08/21/22 Range/Units 00:25 00:25 00:25 WBC 7.9 (4.8-10.8) X10*3/uL RBC 5.12 (4.20-5.50) X10*6/uL Hgb 13.6 (12.0-16.0) g/dl Hct 42.7 (37.0-47.0) % MCV 83.4 (80.0-98.0) fL MCH 26.6 L (27.0-33.0) pg MCHC 31.9 (31.0-35.0) g/dl RDW 16.6 H (11.0-16.0) % Plt Count 373 (160-400) X10*3/uL MPV 9.4 (9.4-12.3) fL Absolute Nucleated RBC 0.000 (0.0-0.012) X10*3/uL Nucleated RBC % (auto) 0.0 (0.0-0.2) /100WBC Sodium 135 (135-145) mmol/L Potassium 4.0 (3.3-5.1) mmol/L Chloride 97 (96-108) mmol/L Carbon Dioxide 27 (22-29) mmol/L Anion Gap 15 (12-20) BUN 28 H (9-16) mg/dL Creatinine 1.04 (0.5-1.4) mg/dL Estim Creat Clear Calc 52.0 Estimated GFR 52 Random Glucose 184 H (60-115) mg/dL Calcium 9.4 (8.4-10.2) mg/dL Total Bilirubin 0.4 (0.0-1.0) mg/dL AST 19 (5-31) U/L ALT 13 (0-31) U/L Alkaline Phosphatase 45 (39-117) U/L Troponin I High Sens 13.8 (<3.5-17.0) ng/L Total Protein 6.9 (6.5-8.0) g/dL Albumin 4.0 (3.5-5.0) g/dL TSH 2.91 (0.32-4.0) uIU/mL Independent Interpretation I performed an independent interpretation of an: EKG Interpretation: Atrial flutter with variable heart block rate of 123 no acute ischemic changes Discharge Plan Discharge Clinical Impression: Atrial flutter with rapid ventricular response, Diarrhea Patient Disposition: Admitted As Inpatient
[2022-08-21 01:01] LABS: Alanine Aminotransferase 13 U/L (0-31); Alkaline Phosphatase 45 U/L (39-117); Anion Gap 15 (12-20); Aspartate Amino Transferase 19 U/L (5-31); Bilirubin Total 0.4 mg/dL (0.0-1.0); Blood Urea Nitrogen 28 mg/dL (9-16); Calcium 9.4 mg/dL (8.4-10.2); Carbon Dioxide 27 mmol/L (22-29); Chloride 97 mmol/L (96-108); Estimated Glomerular Filt Rate 52; Glucose Random 184 mg/dL (60-115); Sodium 135 mmol/L (135-145); Total Protein 6.9 g/dL (6.5-8.0)
[2022-08-21 01:07] LABS: Troponin-I High Sensitivity 13.8 ng/L (<3.5-17.0)
[2022-08-21] MEDS: Metoprolol Tartrate 5 MG/5 ML VIAL IVPUSH (01:15)
[2022-08-21] MEDS: 0.9 % Sodium Chloride 1,000 ML 999 ML IV (01:15)
--- NOTE | 2022-08-21 01:42 | PC.NURSE ---
Pt aox3 resting at the bedside. Breaths are even regular and unlabored. Sinus tach on monitor with hr 120. IV line started with 22G on R hand. Medicated as ordered. Pt tolerated well. Pending lab results. Will continue to monitor. Pt aware of plan of care.
[2022-08-21] MEDS: Acetaminophen 325 MG TABLET 650 MG PO ×2 (03:09→09:18)
--- NOTE | 2022-08-21 03:11 | PC.NURSE ---
Pt resting at the bedside in no apparent distress. Sinus tach on the monitor with HR 116. Reports h/a, 01/19. Medicated for pain. Tolerated well. Pt aware of plan of care.
[2022-08-21] MEDS: dilTIAZem HCL 50 MG/10 ML VIAL 10 MG IVPUSH (03:35)
--- NOTE | 2022-08-21 03:38 | PC.NURSE ---
Sinus tach on monitor with HR 115. Medicated with cardizem as ordered. Tolerated well. Reports diarrhea. MD aware.
--- NOTE | 2022-08-21 03:59 | PM.IMHP ---
History of Present Illness Date of Service: 08/21/22 Chief Complaint: Dizziness This is a 72-year-old female with pertinent history of insulin-dependent diabetes mellitus, essential hypertension, paroxysmal atrial fibrillation on Xarelto, mood disorder, history of CVA presents to the emergency department for evaluation of palpitations and dizziness. Patient states that over the last 2 days she has been having dizziness, when she 1st stands or tries to move around. On the day of presentation, patient also complaining of palpitations. Patient was admitted last month for AFib with RVR. Patient states that she is compliant with medications. She has been having 2 through 3 episodes of loose stools for the last 1 week. She denies fever, chills, chest discomfort, shortness of breath, changes in urinary habits In the emergency department, heart rate in the range of 120s-130s Review of Systems Constitutional: Constitutional: Reports fatigue, Reports lethargy and Reports malaise Cardiovascular: Cardiovascular: Reports rapid heart rate Respiratory: Respiratory: Reports no additional respiratory complaints Gastrointestinal: Gastrointestinal: Reports diarrhea and Reports loose stools Endocrine: Endocrine: Reports fatigue [facility] Medical History Acute upper GI bleed Anemia Atherosclerotic cardiovascular disease Chronic heart failure with preserved ejection fraction (HFpEF) CVA (cerebral vascular accident) Diabetes mellitus Diabetes type 2, uncontrolled Diabetic neuropathy Diabetic polyneuropathy Dizziness Dyslipidemia Essential hypertension Falls Hand pain Head injury Headache Hospital discharge follow-up Iron deficiency anemia Ischemic stroke Left hand pain Left hip pain Left knee pain Left shoulder pain Lumbar degenerative disc disease Obesity due to excess calories Other and unspecified hyperlipidemia Paroxysmal atrial fibrillation PONV (postoperative nausea and vomiting) Proteinuria Pulmonary hypertension Pure hypercholesterolemia Thiamine deficiency Thrombus 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 Urge urinary incontinence Family History Father Rectal cancer Hypertension Arthritis of knee CVD (cardiovascular disease) Mother Hypertension CVD (cardiovascular disease) Myocardial infarction Diabetes Surgical History H/O colonoscopy History of Mohs micrographic surgery for skin cancer History of partial hysterectomy Hx of cardiac cath Hx of cervical spine surgery Social History Household Members: Spouse Housing: Condominium Are you a primary date night caregiver to a significant other at home: No Do you presently have visiting nurse or other home services: No Alcohol intake: never Patient Tobacco Use Status: Former Tobacco user Quit Date: 1993 Tobacco use type: Cigarette e-Cigarette/Vaping Use: Never Used Second Hand Smoke Exposure: No Use of substances other than those prescribed or required for medical reasons: No Advance Directives: Yes Advance Directives on File: Yes Advance Directives Date on File: 07/17/20 service: No Current occupational status: retired Current occupation: Lt handed Cognitive needs: Yes (scodor/walker) Hearing needs: No Vision needs: Yes (glasses) Meds Allergies Allergy/AdvReac Type Severity Reaction Status Date / Time morphine [Morphine] Allergy Severe ITCHING, Verified 07/23/22 08:39 hives cefdinir Allergy Intermediate hives Verified 07/23/22 08:39 sulfamethoxazole Allergy Intermediate RASH Verified 07/23/22 08:39 trimethoprim Allergy Intermediate RASH Verified 07/23/22 08:39 duloxetine AdvReac Severe altered Verified 07/23/22 08:39 behavior betina AdvReac Mild RUNNY NOSE Verified 07/23/22 08:39 mustard AdvReac Mild RUNNY NOSE Verified 07/23/22 08:39 potato [POTATO] AdvReac Mild ITCHY NOSE Verified 07/23/22 08:39 soybean AdvReac Mild RUNNY NOSE Verified 07/23/22 08:39 cheese AdvReac Intermediate head Uncoded 07/23/22 08:39 congestion Home Medications Medication Instructions Recorded Confirmed Last Taken Type estradiol 0.01% (0.1 mg/gram) 1 appl vaginal 3XW 11/13/21 07/23/22 07/18/22 History vaginal cream ropinirole 0.25 mg tablet 2 tab PO BEDTIME 11/13/21 07/23/22 07/17/22 History acetaminophen 325 mg tablet 650 mg PO Q6H PRN Pain (Scale 07/18/22 07/23/22 Unknown History Score 1-3) baclofen 10 mg tablet 5 mg PO TID PRN muscle spasm 07/18/22 07/23/22 07/18/22 History dulaglutide 3 mg/0.5 mL 3 mg subcut TH@0900 0307/23/22 07/11/22 History subcutaneous pen injector (Trulicity) insulin degludec 100 unit/mL (3 0 - 10 unit subcut BEDTIME 07/18/22 07/23/22 07/17/22 History mL) subcutaneous pen (Tresiba FlexTouch U-100 insulin) rivaroxaban 20 mg tablet (Xarelto) 20 mg PO DAILY@1700 07/18/22 07/23/22 07/17/22 History sennosides 8.6 mg tablet (senna) 17.2 mg PO BEDTIME PRN Constipation 07/18/22 07/23/22 Unknown History Physical Exam Vital Signs and Narrative: Vital Signs: Last Vital Signs Temp 97.6 F 08/21/22 02:38 Pulse 115 H 08/21/22 02:38 Resp 27 H 08/21/22 02:38 BP 146/90 H 08/21/22 02:38 Pulse Ox 96 08/21/22 02:38 O2 Del Method Room Air 08/21/22 02:38 BMI result Body Mass Index 37.2 Elderly female lying in bed in no distress Neck supple, no JVD Irregularly irregular, S1-S2 heard Regular breath sounds bilaterally, no wheezing or crackles appreciated Abdomen soft nontender, no guarding, no rigidity Patient is awake, alert and oriented to self, place, time and person ; no focal motor deficit Psych: Normal mood No pedal edema Results Labs 08/21/22 00:25 08/21/22 00:25 Labs: Laboratory Results - last 24 hr 08/21/22 08/21/22 08/21/22 00:25 00:25 00:25 MCV 83.4 MCH 26.6 L MCHC 31.9 RDW 16.6 H Plt Count 373 MPV 9.4 Absolute Nucleated RBC 0.000 Nucleated RBC % (auto) 0.0 Anion Gap 15 Estim Creat Clear Calc 52.0 Estimated GFR 52 Random Glucose 184 H Calcium 9.4 Total Bilirubin 0.4 AST 19 ALT 13 Alkaline Phosphatase 45 Troponin I High Sens 13.8 Total Protein 6.9 Albumin 4.0 Assessment and Plan (1) Dizziness: Status: Acute Plan This is a 72-year-old female with pertinent history of insulin-dependent diabetes mellitus, essential hypertension, paroxysmal atrial fibrillation on Xarelto, mood disorder, history of CVA presents to the emergency department for evaluation of palpitations and dizziness. #. Presyncope, orthostatic: Due to intravascular volume depletion in the setting of diarrhea. Resuscitated with IV crystalloids in the ER. Repeat orthostatics in a.m. #. AFib with RVR: Given IV diltiazem in the ER with control of heart rate. On Xarelto: Previously on Multaq which was discontinued due to interstitial findings on CT scan. Resume home atenolol. Obtain TSH #. Gastroenteritis: Viral versus bacterial. Obtaining GI panel #. Essential hypertension: Continue home antihypertensives #. Mood disorder: Continue home mood stabilizers #. Insulin-dependent diabetes mellitus with hyperglycemia: Continue home regimen. Initiating Accu-Cheks with sliding scale insulin #. Mixed hyperlipidemia: On statin Med rec pending DVT prophylaxis: On Xarelto Full code Cardiac diet Time Spent With Patient Time: Total time managing care of this patient today ____ minutes. Quality Stroke Does the patient have a stroke diagnosis?: No VTE Prior VTE?: No VTE Risk Level:: Medical - moderate - high VTE Device Contraindication: Treatment Not Indicated VTE Drug Contraindication: N/A - Med Ordered
--- NOTE | 2022-08-21 04:08 | MHC.EDTECH ---
pt ambulates to the restrooom with her
[2022-08-21 04:32] LABS: MANUAL DIFF FLAG NO
[2022-08-21 04:34] LABS: Basophils Absolute Auto 0.1 X10*3/uL (0.0-0.2); Eosinophils Absolute Auto 0.2 X10*3/uL (0.0-0.4); Eosinophils Percent Auto 2.3 % (0-4); Hematocrit 40.7 % (37.0-47.0); Hemoglobin 13.2 g/dl (12.0-16.0); Imm Gran Abs Auto 0.02 X10*3/uL (0.00-0.03); Imm Gran Pct Auto 0.2 % (0.0-0.4); Lymphocytes Absolute Auto 2.1 X10*3/uL (1.2-4.9); Lymphocytes Percent Auto 25.9 % (20-40); Mean Corpuscular HGB Conc 32.4 g/dl (31.0-35.0); Mean Corpuscular Hemoglobin 26.9 pg (27.0-33.0); Mean Corpuscular Volume 82.9 fL (80.0-98.0); Monocytes Absolute Auto 0.8 X10*3/uL (0.1-1.2); Monocytes Percent Auto 10.3 % (2-11); Neutrophils Absolute Auto 4.9 x10*3/uL (2.0-8.3); Neutrophils Percent Auto 60.3 % (45-73); Platelet Count 370 X10*3/uL (160-400); Red Blood Count 4.91 X10*6/uL (4.20-5.50); Red Cell Distribution Width 16.4 % (11.0-16.0); White Blood Count 8.2 X10*3/uL (4.8-10.8)
[2022-08-21 04:35] LABS: Appearance Urine Clear; Color Urine Yellow; Glucose Urine UA >=1000 mg/dL (Negative); Leukocyte Esterase Urine Negative (Negative); Nitrite Urine Negative (Negative); Specific Gravity - Urine 1.025 (1.005-1.025); UMIC TRIGGER UACC YES; Urine Blood Negative (Negative); Urine Ketones Negative (Negative); Urine Protein 30 (1+) mg/dL (Neg-Trace)
[2022-08-21 04:40] LABS: Bacteria Urine None Seen (None Seen); Hyaline Casts Urine 0-2 /LPF (0-2); RBC Urine 0-2 /HPF (0-2); WBC Urine 0-5 /HPF (0-5)
[2022-08-21] MEDS: ondansetron HCL 4 MG/2 ML VIAL IVPUSH ×2 (04:43→12:58)
[2022-08-21 04:45] LABS: Thyroid Stimulating Hormone 2.91 uIU/mL (0.32-4.0)
[2022-08-21 06:25] LABS: COVID-19 Test Negative (Negative); IDNOW Serial# BCCEAD1C
--- NOTE | 2022-08-21 06:44 | MHC.EDTECH ---
pt has a pure wick in place , she doesnt walk without a walker, none was found in the ER
[2022-08-21 07:34] LABS: Glucose, Whole Blood 127 mg/dL (60-115)
[2022-08-21] MEDS: 0.9 % Sodium Chloride Flush 3 ML SYRINGE IVFLUSH (07:38)
--- NOTE | 2022-08-21 07:38 | PC.NURSE ---
Resumed care of patient this morning, a/ox4 in bed, no complaints of pain at this time. Stable on RA. Hr in 70's, NSR. Pt currently eating breakfast at bedside
[2022-08-21 08:16] LABS: Anion Gap 14 (12-20); Blood Urea Nitrogen 23 mg/dL (9-16); Calcium 9.6 mg/dL (8.4-10.2); Carbon Dioxide 29 mmol/L (22-29); Chloride 100 mmol/L (96-108); Creatinine Clr Calc Pharmacy 57.6; Estimated Glomerular Filt Rate 58; Glucose Random 132 mg/dL (60-115); Potassium 4.2 mmol/L (3.3-5.1); Sodium 139 mmol/L (135-145)
--- NOTE | 2022-08-21 08:53 | PHA.MEDREC ---
Pharmacy Consult ? Medication Reconciliation Pharmacy has completed the medication reconciliation. Pt states her medications have not changed since her discharge on 07/21. Used discharge summary to complete med rec. She states that she rarely uses the tresiba insulin and trulicity is on .
--- NOTE | 2022-08-21 10:23 | MHC.CM.PN ---
Met with patient in regards to discharge planning. Patient lives with her , Jamal, ambulates with a walker and was not active with any services prior to coming to the hospital. PCP verified. Copy of HCP verified to be on file. Obs notice explained and signed. Patient received 4 Pfizer vaccines. No services anticipated to be needed at discharge. Patient states she is supposed to have knee replacement surgery on 09/09 at [facility]. Patient's will transport her home when medically stable. Continue to monitor for d/c needs.
[2022-08-21] MEDS: Magnesium Oxide 400 MG TABLET 200 MG PO (12:58)
[2022-08-21 13:01] LABS: Glucose, Whole Blood 132 mg/dL (60-115)
--- NOTE | 2022-08-21 13:08 | PC.NURSE ---
report given to arelis TUCKER, pt to be transported up to [facility]
--- NOTE | 2022-08-21 14:32 | PM.EVENT ---
Event Note Date of Service: 08/21/22 Event Note: Chart reviewed patient examined. Now in sinus rhythm. Time Spent With Patient Time: Total time managing care of this patient today ____ minutes.
[2022-08-21] MEDS: Lactated Ringers 1,000 ML 125 ML IVCONT ×2 (14:52→22:15)
[2022-08-21] MEDS: Gabapentin 600 MG TABLET PO ×2 (14:55→20:22)
[2022-08-21] MEDS: atenoloL 50 MG TABLET PO (15:32)
[2022-08-21] MEDS: Losartan Potassium 25 MG TABLET PO (15:32)
[2022-08-21 15:36] LABS: Adenovirus F 40/41 Not Detected (Not Detect.); Astrovirus Not Detected (Not Detect.); Campylobacter Not Detected (Not Detect.); Cryptosporidium Not Detected (Not Detect.); Cyclospora cayetanensis Not Detected (Not Detect.); E. coli EAEC Not Detected (Not Detect.); E. coli EPEC Not Detected (Not Detect.); E. coli ETEC Not Detected (Not Detect.); E. coli STEC Not Detected (Not Detect.); Entamoeba histolytica Not Detected (Not Detect.); Giardia lamblia Not Detected (Not Detect.); Norovirus GI/GII Not Detected (Not Detect.); Plesiomonas shigelloides Not Detected (Not Detect.); Rotavirus A Not Detected (Not Detect.); Salmonella Not Detected (Not Detect.); Sapovirus Not Detected (Not Detect.); Shigella sp./EIEC Not Detected (Not Detect.); Vibrio Not Detected (Not Detect.); Vibrio Cholerae Not Detected (Not Detect.); Yersinia enterocolitica Not Detected (Not Detect.)
[2022-08-21 16:07] LABS: Glucose, Whole Blood 148 mg/dL (60-115)
[2022-08-21] MEDS: metFORMIN HCl 1,000 MG TABLET 1000 MG PO (16:57)
[2022-08-21] MEDS: Rivaroxaban 20 MG TABLET PO (16:57)
[2022-08-21 19:45] LABS: Glucose, Whole Blood 167 mg/dL (60-115)
[2022-08-21] MEDS: hydrALAZINE HCl 20 MG/ML VIAL 10 MG IVPUSH (20:21)
[2022-08-21] MEDS: Hydroxychloroquine Sulfate 200 MG TABLET PO (20:21)
[2022-08-21] MEDS: rOPINIRole HCL 0.25 MG TABLET 0.5 MG PO (20:21)
[2022-08-21] MEDS: Insulin Lispro 100 UNIT/ML 3 ML VIAL SUBCUT (20:22)
[2022-08-21] MEDS: Atorvastatin Calcium 80 MG TABLET PO (20:22)
[2022-08-21] MEDS: Melatonin 3 MG TABLET 6 MG PO (22:12)
[2022-08-21] MEDS: traZODone HCL 100 MG TABLET PO (22:12)
[2022-08-22] VITALS (8 sets, daily range): BP systolic 105–161; BP diastolic 62–91; PULSE 60–114; RESP 16–20; TEMP 36.4–37; O2SAT 97–98
[2022-08-22] MEDS: Omeprazole 40 MG CAPSULE.DR PO (06:17)
[2022-08-22] MEDS: Lactated Ringers 1,000 ML 125 ML IVCONT ×3 (06:17→21:17)
[2022-08-22 06:42] LABS: MANUAL DIFF FLAG NO
[2022-08-22 06:49] LABS: Basophils Absolute Auto 0.1 X10*3/uL (0.0-0.2); Basophils Percent Auto 1.3 % (0-2); Eosinophils Absolute Auto 0.3 X10*3/uL (0.0-0.4); Eosinophils Percent Auto 4.6 % (0-4); Hematocrit 37.6 % (37.0-47.0); Imm Gran Abs Auto 0.03 X10*3/uL (0.00-0.03); Imm Gran Pct Auto 0.4 % (0.0-0.4); Lymphocytes Absolute Auto 1.6 X10*3/uL (1.2-4.9); Lymphocytes Percent Auto 23.7 % (20-40); Mean Corpuscular HGB Conc 31.9 g/dl (31.0-35.0); Mean Corpuscular Volume 84.7 fL (80.0-98.0); Mean Platelet Volume 9.5 fL (9.4-12.3); Monocytes Absolute Auto 0.8 X10*3/uL (0.1-1.2); Neutrophils Absolute Auto 4.1 x10*3/uL (2.0-8.3); Platelet Count 322 X10*3/uL (160-400); Red Blood Count 4.44 X10*6/uL (4.20-5.50); Red Cell Distribution Width 16.9 % (11.0-16.0); White Blood Count 6.9 X10*3/uL (4.8-10.8)
[2022-08-22 07:03] LABS: Glucose, Whole Blood 125 mg/dL (60-115)
[2022-08-22 07:07] LABS: Alanine Aminotransferase 12 U/L (0-31); Albumin Level 3.6 g/dL (3.5-5.0); Alkaline Phosphatase 43 U/L (39-117); Anion Gap 12 (12-20); Aspartate Amino Transferase 19 U/L (5-31); Bilirubin Total 0.5 mg/dL (0.0-1.0); Blood Urea Nitrogen 15 mg/dL (9-16); Calcium 9.5 mg/dL (8.4-10.2); Carbon Dioxide 26 mmol/L (22-29); Chloride 103 mmol/L (96-108); Creatinine Clr Calc Pharmacy 75.2; Estimated Glomerular Filt Rate > 60; Glucose Fasting 117 mg/dL (60-99); Sodium 137 mmol/L (135-145); Total Protein 5.8 g/dL (6.5-8.0)
--- NOTE | 2022-08-22 07:13 | PC.NURSE ---
Manual bp of 218/90 at 19:20 08/21/2022. MD notified. Patient is alert and oriented x4. Patient is laying comfortably in bed.
[2022-08-22] MEDS: Acetaminophen 325 MG TABLET 650 MG PO (08:15)
[2022-08-22] MEDS: oxyBUTYnin chloride ER 5 MG TAB.ER.24 PO (08:46)
[2022-08-22] MEDS: Hydroxychloroquine Sulfate 200 MG TABLET PO ×2 (08:46→21:11)
[2022-08-22] MEDS: Loratadine 10 MG TABLET PO (08:46)
[2022-08-22] MEDS: Mirabegron 50 MG TAB.ER.24H PO (08:46)
[2022-08-22] MEDS: Thiamine HCL 100 MG TABLET PO (08:47)
[2022-08-22] MEDS: Losartan Potassium 25 MG TABLET PO (08:47)
[2022-08-22] MEDS: atenoloL 50 MG TABLET PO (08:47)
[2022-08-22] MEDS: Ferrous Sulfate 324 MG TABLET.DR PO (08:47)
[2022-08-22] MEDS: Magnesium Oxide 400 MG TABLET 200 MG PO (08:48)
[2022-08-22] MEDS: metFORMIN HCl 1,000 MG TABLET 1000 MG PO ×2 (08:48→17:59)
[2022-08-22] MEDS: Empagliflozin 25 MG TABLET PO (08:48)
[2022-08-22] MEDS: Escitalopram Oxalate 10 MG TABLET PO (08:48)
[2022-08-22] MEDS: Cholecalciferol (Vitamin D3) 25 MCG TABLET PO (08:48)
[2022-08-22] MEDS: Gabapentin 600 MG TABLET PO ×3 (08:48→21:11)
[2022-08-22] MEDS: Fenofibrate 160 MG TABLET PO (08:48)
[2022-08-22] MEDS: Cyanocobalamin (Vitamin B-12) 1,000 MCG TABLET 1000 MCG PO (08:48)
[2022-08-22 11:40] LABS: Glucose, Whole Blood 178 mg/dL (60-115)
[2022-08-22] MEDS: Insulin Lispro 100 UNIT/ML 3 ML VIAL SUBCUT (11:59)
--- NOTE | 2022-08-22 15:22 | PC.NURSE ---
Patient converted from sinus rhythm to afib @ 0900, HR 100's-120's. @ 1100 began having frequent long pauses, 3.4 sec, 5.8 sec, 6.1 sec. Patient symptomatic, feeling lightheaded. Dr Nieto notified. Consult to cardilogy placed. Dr Sales notified. Picture of rhythm tiger'd to Dr. Sales. Patient NPO. Pacer pads placed on patient and beta tato d/c'd. Patient notified of possible plan for pacemaker.
[2022-08-22 16:30] LABS: Glucose, Whole Blood 99 mg/dL (60-115)
--- NOTE | 2022-08-22 16:36 | PM.CNCAR ---
History of Present Illness History of Present Illness Date of Service: 08/22/22 Requesting physician: Kevin Nieto Consult reason: other (Sinus pauses, atrial fibrillation) Chief complaint: Dizziness Narrative: I was consulted to see Missy in cardiology consultation today for significant pauses. She is a pleasant 72-year-old woman with prior history of paroxysmal atrial fibrillation, CAD status post drug-eluting stent to [facility] in 2016 for angina, hypertension, diabetes, diffuse arthritis and lumbar spine disease. Patient came to the hospital because she was having diarrhea episodes. She was admitted with noted to be in atrial fibrillation rapid ventricular response. Her while on telemetry she had significant pause while converting to sinus rhythm. She had pause greater than 6 seconds. This was associated symptoms of feeling lightheaded while she was sitting in the chair and feeling like an out of body experience. She said about 2 days ago she had similar symptoms while she was [place] [employer] and felt like she was going to pass out. She then sat down and symptoms subsided. She came to the hospital because of diarrheal illness. Patient has been taking all her medications. Currently her atenolol has been held. She does not have any significant symptoms with atrial fibrillation current time. Denies any heart failure symptoms. Denies any chest pain. Review of Systems Constitutional: Constitutional: Reports no additional constitutional complaints Eyes: Eyes: Reports no additional eye complaints Cardiovascular: Cardiovascular: Denies chest pain, Denies leg edema, Reports lightheadedness, Denies Loss of Consciousness and Denies dyspnea Respiratory: Respiratory: Reports no additional respiratory complaints and Denies dyspnea Genitourinary: Genitourinary: Reports no additional female genitourinary complaints Integumentary/Breasts: Skin/Breast: Reports system reviewed and no additional complaints, except as docu Neurologic: Reports system reviewed and no additional complaints, except as documented Psychiatric: Psychiatric: Reports no additional psychiatric complaints Endocrine: Endocrine: Reports no additional endocrine complaints Hematologic/Lymphatic: Hematologic/Lymphatic: Reports no additional hematologic/lymphatic complaints PMFSH Past Medical History Medical History Acute upper GI bleed Anemia Atherosclerotic cardiovascular disease Chronic heart failure with preserved ejection fraction (HFpEF) CVA (cerebral vascular accident) Diabetes mellitus Diabetes type 2, uncontrolled Diabetic neuropathy Diabetic polyneuropathy Dizziness Dyslipidemia Essential hypertension Falls Hand pain Head injury Headache Hospital discharge follow-up Iron deficiency anemia Ischemic stroke Left hand pain Left hip pain Left knee pain Left shoulder pain Lumbar degenerative disc disease Obesity due to excess calories Other and unspecified hyperlipidemia Paroxysmal atrial fibrillation PONV (postoperative nausea and vomiting) Proteinuria Pulmonary hypertension Pure hypercholesterolemia Thiamine deficiency Thrombus 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 Urge urinary incontinence Family History Family History Father Rectal cancer Hypertension Arthritis of knee CVD (cardiovascular disease) Mother Hypertension CVD (cardiovascular disease) Myocardial infarction Diabetes Surgical History Surgical History H/O colonoscopy History of Mohs micrographic surgery for skin cancer History of partial hysterectomy Hx of cardiac cath Hx of cervical spine surgery Social History Social History Household Members: Spouse [facility] Are you a primary medicare specialist to a significant other at home: No Do you presently have visiting nurse or other home services: No Alcohol intake: never Patient Tobacco Use Status: Former Tobacco user Quit Date: 1993 Tobacco use type: Cigarette Smoked in Last 30 Days: No e-Cigarette/Vaping Use: Never Used Patient Interested in Nicotine Replacement: No Patient Given Instructions on How to Stop Smoking: No Second Hand Smoke Exposure: No Use of substances other than those prescribed or required for medical reasons: No Advance Directives: Yes Advance Directives Information Provided: Yes Advance Directives on File: Yes Advance Directives Date on File: 07/17/20 Nutrition Risks: No Nutritional Risk service: No Current occupational status: retired Current occupation: Lt handed Cognitive needs: Yes (scodor/walker) Hearing needs: No Vision needs: Yes (glasses) Meds Allergies Allergy/AdvReac Type Severity Reaction Status Date / Time morphine [Morphine] Allergy Severe ITCHING, Verified 07/23/22 08:39 hives cefdinir Allergy Intermediate hives Verified 07/23/22 08:39 sulfamethoxazole Allergy Intermediate RASH Verified 07/23/22 08:39 trimethoprim Allergy Intermediate RASH Verified 07/23/22 08:39 duloxetine AdvReac Severe altered Verified 07/23/22 08:39 behavior betina AdvReac Mild RUNNY NOSE Verified 07/23/22 08:39 mustard AdvReac Mild RUNNY NOSE Verified 07/23/22 08:39 potato [POTATO] AdvReac Mild ITCHY NOSE Verified 07/23/22 08:39 soybean AdvReac Mild RUNNY NOSE Verified 07/23/22 08:39 cheese AdvReac Intermediate head Uncoded 07/23/22 08:39 congestion Active Medications: Current Medications Acetaminophen (Acetaminophen 325 Mg Tablet) 650 mg PO Q6H PRN PRN Reason: Pain, Mild (Pain Scale 1-3) Last Admin: 08/22/22 08:15 Dose: 650 mg Acetaminophen (Acetaminophen 325 Mg Tablet) 650 mg PO Q6H PRN PRN Reason: Pain (Scale Score 1-3) Atorvastatin Calcium (Atorvastatin Calcium 80 Mg Tablet) 80 mg PO BEDTIME [facility] Last Admin: 08/21/22 20:22 Dose: 80 mg Baclofen (Baclofen 10 Mg Tablet) 5 mg PO TID PRN PRN Reason: muscle spasm Cyanocobalamin (Cyanocobalamin (Vitamin B-12) 1,000 Mcg Tablet) 1,000 mcg PO DAILY [facility] Last Admin: 08/22/22 08:48 Dose: 1,000 mcg Docusate Sodium (Docusate Sodium 100 Mg Capsule) 100 mg PO BID PRN PRN Reason: constipation Empagliflozin (Empagliflozin 25 Mg Tablet) 25 mg PO DAILY [facility] Last Admin: 08/22/22 08:48 Dose: 25 mg Escitalopram Oxalate (Escitalopram Oxalate 10 Mg Tablet) 10 mg PO DAILY [facility] Last Admin: 08/22/22 08:48 Dose: 10 mg Fenofibrate (Fenofibrate 160 Mg Tablet) 160 mg PO DAILY [facility] Last Admin: 08/22/22 08:48 Dose: 160 mg Ferrous Sulfate (Ferrous Sulfate 324 Mg Tablet.Dr) 324 mg PO DAILY [facility] Last Admin: 08/22/22 08:47 Dose: 324 mg Fluticasone Propionate (Fluticasone Propionate Nasal 16 Gm [place]) 1 spray NOSTRIL-B DAILY [facility] Last Admin: 08/22/22 14:07 Dose: Not Given Gabapentin (Gabapentin 600 Mg Tablet) 600 mg PO TID [facility] Last Admin: 08/22/22 14:10 Dose: 600 mg Glucose (Glucose Gel 15 Gm Gel..Gram.) 15 gm PO Q15M PRN; Protocol PRN Reason: per Hypoglycemia Standing Ord. Hydroxychloroquine Sulfate (Hydroxychloroquine Sulfate 200 Mg Tablet) 200 mg PO BID [facility] Last Admin: 08/22/22 08:46 Dose: 200 mg Dextrose (D10) 250 mls @ 750 mls/hr IV Q15M PRN; Protocol PRN Reason: per Hypoglycemia Standing Ord. Lactated Ringer's (Lr) 1,000 mls @ 125 mls/hr IVCONT .Q8H [facility] Last Admin: 08/22/22 14:10 Dose: 125 mls/hr Vancomycin HCl 1,000 mg/ (Sodium Chloride) 270 mls @ 270 mls/hr IV PREOP ONE Stop: 08/23/22 13:59 Insulin Human Lispro (Insulin Lispro 100 Unit/Ml 3 Ml Vial) 0.1 - 10 unit SUBCUT QIDACHS [facility]; Protocol Last Admin: 08/22/22 11:59 Dose: 2 unit Loratadine (Loratadine 10 Mg Tablet) 10 mg PO DAILY [facility] Last Admin: 08/22/22 08:46 Dose: 10 mg Losartan Potassium (Losartan Potassium 25 Mg Tablet) 25 mg PO DAILY [facility]; Protocol Last Admin: 08/22/22 08:47 Dose: 25 mg Magnesium Oxide (Magnesium Oxide 400 Mg Tablet) 200 mg PO DAILY [facility] Last Admin: 08/22/22 08:48 Dose: 200 mg Melatonin (Melatonin 3 Mg Tablet) 6 mg PO BEDTIME PRN PRN Reason: Insomnia Last Admin: 08/21/22 22:12 Dose: 6 mg Metformin HCl (Metformin Hcl 1,000 Mg Tablet) 1,000 mg PO BIDWM [facility] Last Admin: 08/22/22 08:48 Dose: 1,000 mg Mirabegron (Mirabegron 50 Mg Tab.Er.24h) 50 mg PO DAILY [facility] Last Admin: 08/22/22 08:46 Dose: 50 mg Omeprazole (Omeprazole 40 Mg Capsule.Dr) 40 mg PO DAILY@0630 [facility] Last Admin: 08/22/22 06:17 Dose: 40 mg Ondansetron HCl (Ondansetron Hcl 4 Mg/2 Ml Vial) 4 mg IVPUSH Q8H PRN PRN Reason: Nausea and Vomiting Last Admin: 08/21/22 12:58 Dose: 4 mg Oxybutynin Chloride (Oxybutynin Chloride Er 5 Mg Tab.Er.24) 5 mg PO DAILY [facility] Last Admin: 08/22/22 08:46 Dose: 5 mg Pharmacy Consult (Consult Rx Perform Med Rec) 1 each MISCELLANE ONCE PRN PRN Reason: Consult order Pharmacy Consult (Consult Rx Vancomycin Dosing) 1 each MISCELLANE DAILY PRN PRN Reason: Consult order Rivaroxaban (Rivaroxaban 20 Mg Tablet) 20 mg PO DAILY@1700 [facility] Last Admin: 08/21/22 16:57 Dose: 20 mg Ropinirole HCl (Ropinirole Hcl 0.25 Mg Tablet) 0.5 mg PO BEDTIME [facility] Last Admin: 08/21/22 20:21 Dose: 0.5 mg Senna (Sennosides 8.6 Mg Tablet) 17.2 mg PO BEDTIME PRN PRN Reason: Constipation Sodium Chloride (0.9 % Sodium Chloride Flush 3 Ml Syringe) 3 ml IVFLUSH QSHIFT [facility] Last Admin: 08/22/22 08:48 Dose: Not Given Thiamine HCl (Thiamine Hcl 100 Mg Tablet) 100 mg PO DAILY [facility] Last Admin: 08/22/22 08:47 Dose: 100 mg Trazodone HCl (Trazodone Hcl 100 Mg Tablet) 100 mg PO BEDTIME [facility] Last Admin: 08/21/22 22:12 Dose: 100 mg Vitamin D (Cholecalciferol (Vitamin D3) 25 Mcg Tablet) 25 mcg PO DAILY [facility] Last Admin: 08/22/22 08:48 Dose: 25 mcg Home Medications Medication Instructions Recorded Confirmed Last Taken Type estradiol 0.01% (0.1 mg/gram) 1 appl vaginal 3XW 11/13/21 08/21/22 07/18/22 History vaginal cream ropinirole 0.25 mg tablet 2 tab PO BEDTIME 11/13/21 08/21/22 07/17/22 History acetaminophen 325 mg tablet 650 mg PO Q6H PRN Pain (Scale 07/18/22 08/21/22 Unknown History Score 1-3) baclofen 10 mg tablet 5 mg PO TID PRN muscle spasm 07/18/22 08/21/22 07/18/22 History dulaglutide 3 mg/0.5 mL 3 mg subcut TH@0900 07/18/22 08/21/22 07/11/22 History subcutaneous pen injector (Trulicity) insulin degludec 100 unit/mL (3 0 - 10 unit subcut BEDTIME 07/18/22 08/21/22 07/17/22 History mL) subcutaneous pen (Tresiba FlexTouch U-100 insulin) rivaroxaban 20 mg tablet (Xarelto) 20 mg PO DAILY@1700 07/18/22 08/21/22 07/17/22 History sennosides 8.6 mg tablet (senna) 17.2 mg PO BEDTIME PRN Constipation 07/18/22 08/21/22 Unknown History Physical Exam Vital Signs: Vital Signs: Last Vital Signs Temp 97.5 F 08/22/22 14:58 Pulse 108 H 08/22/22 14:58 Resp 19 08/22/22 14:58 BP 108/76 08/22/22 14:58 Pulse Ox 98 08/22/22 14:58 O2 Del Method Room Air 08/22/22 14:58 O2 Flow Rate 2 08/22/22 03:28 BMI result Body Mass Index 37.2 Const: General: cooperative, comfortable, no acute distress, alert and awake Nutritional Appearance: obese Orientation/consciousness: patient oriented x3 HEENT: Head: Yes normocephalic and Yes atraumatic Neck: Neck: Yes trachea midline, Yes supple and Yes no JVD Resp: Effort & Inspection: normal respiratory effort Auscultation: clear to auscultation bilaterally and diminished lung sounds Cardio: Jugular venous distension: no JVD Palpation: normal PMI Rate: tachycardic Rhythm: abnormal rhythm irregularly irregular Heart sounds: S1 normal heart sound present, S2 normal heart sound present, no click, no gallops and Murmur heart sound present systolic mid GI: Auscultation: normal bowel sounds Skin: General skin exam: no rashes or lesions noted Neuro: General: patient oriented x3 and no focal motor deficits Extrem: General: Yes no clubbing, cyanosis or edema Objective Labs and Meds 08/22/22 06:08 08/22/22 06:08 Lab results: Laboratory Results - last 24 hr 08/21/22 08/22/22 08/22/22 19:40 06:08 06:08 WBC 6.9 RBC 4.44 Hgb 12.0 Hct 37.6 MCV 84.7 MCH 27.0 MCHC 31.9 RDW 16.9 H Plt Count 322 MPV 9.5 Immature Gran % (Auto) 0.4 Neut % (Auto) 59.0 Lymph % (Auto) 23.7 Real % (Auto) 11.0 Eos % (Auto) 4.6 H Baso % (Auto) 1.3 Lymph # (Auto) 1.6 Real # (Auto) 0.8 Eos # (Auto) 0.3 Baso # (Auto) 0.1 Abs Immat Gran (auto) 0.03 Absolute Neuts (auto) 4.1 Absolute Nucleated RBC 0.000 Nucleated RBC % (auto) 0.0 Sodium 137 Potassium 4.0 Chloride 103 Carbon Dioxide 26 Anion Gap 12 BUN 15 Creatinine 0.72 Estim Creat Clear Calc 75.2 Estimated GFR > 60 POC Glucose 167 H Fasting Glucose 117 H Calcium 9.5 Total Bilirubin 0.5 AST 19 ALT 12 Alkaline Phosphatase 43 Total Protein 5.8 L Albumin 3.6 08/22/22 08/22/22 08/22/22 06:53 11:27 16:22 WBC RBC Hgb Hct MCV MCH MCHC RDW Plt Count MPV Immature Gran % (Auto) Neut % (Auto) Lymph % (Auto) Real % (Auto) Eos % (Auto) Baso % (Auto) Lymph # (Auto) Real # (Auto) Eos # (Auto) Baso # (Auto) Abs Immat Gran (auto) Absolute Neuts (auto) Absolute Nucleated RBC Nucleated RBC % (auto) Sodium Potassium Chloride Carbon Dioxide Anion Gap BUN Creatinine Estim Creat Clear Calc Estimated GFR POC Glucose 125 H 178 H 99 Fasting Glucose Calcium Total Bilirubin AST ALT Alkaline Phosphatase Total Protein Albumin Assessment and Plan (1) Sinoatrial node dysfunction: Status: Acute Patient present with noncardiac illness but noted to have symptomatic sinus pause during conversion which is suggestive of prolonged sinus node recovery time consistent with sick sinus syndrome. She had few episodes few days ago, out hospital. This is highly suggested with tachy-gina syndrome of sick sinus syndrome. I think this can be easily corrected with the pacemaker placement. She will require dual-chamber pacemaker placement. This was discussed with her. Nature of pacemaker and the role of pacemaker was discussed with her. She understands agrees. Risks, benefits, alternatives were discussed. Will be scheduled for tomorrow. Will set up for outpatient follow-up after that. (2) Atrial flutter with rapid ventricular response: Status: Acute Atrial flutter with rapid ventricular response, triggered by her acute non cardiac illness. Would avoid significant rate control at this point time till she undergoes a pacemaker placement. Continue full oral anticoagulation. Will continue to follow with you Time Spent With Patient Time: Total time managing care of this patient today ____ minutes. Procedures Date of Service Date of Service: 08/22/22
--- NOTE | 2022-08-22 20:15 | PC.NURSE ---
converted to NSR and stays in that rhythm
[2022-08-22 20:46] LABS: Glucose, Whole Blood 118 mg/dL (60-115)
[2022-08-22] MEDS: Atorvastatin Calcium 80 MG TABLET PO (21:11)
[2022-08-22] MEDS: rOPINIRole HCL 0.25 MG TABLET 0.5 MG PO (21:12)
[2022-08-22] MEDS: Melatonin 3 MG TABLET 6 MG PO (21:48)
[2022-08-22] MEDS: traZODone HCL 100 MG TABLET PO (21:48)
--- NOTE | 2022-08-22 22:38 | PC.NURSE ---
Patient had 5.8 seconds pause at 19:35 and converted to NSR and stays in the NSR hr 70's
[2022-08-23] VITALS (11 sets, daily range): BP systolic 132–194; BP diastolic 60–98; PULSE 60–80; RESP 14–20; TEMP 36.1–36.8; O2SAT 93–98
[2022-08-23] MEDS: Lactated Ringers 1,000 ML 125 ML IVCONT (06:24)
[2022-08-23 06:59] LABS: MANUAL DIFF FLAG NO
[2022-08-23 07:03] LABS: Basophils Absolute Auto 0.1 X10*3/uL (0.0-0.2); Basophils Percent Auto 1.3 % (0-2); Eosinophils Absolute Auto 0.3 X10*3/uL (0.0-0.4); Eosinophils Percent Auto 4.1 % (0-4); Hematocrit 35.5 % (37.0-47.0); Hemoglobin 11.5 g/dl (12.0-16.0); Imm Gran Abs Auto 0.02 X10*3/uL (0.00-0.03); Imm Gran Pct Auto 0.3 % (0.0-0.4); Lymphocytes Absolute Auto 1.9 X10*3/uL (1.2-4.9); Lymphocytes Percent Auto 26.8 % (20-40); Mean Corpuscular HGB Conc 32.4 g/dl (31.0-35.0); Mean Corpuscular Hemoglobin 27.3 pg (27.0-33.0); Mean Corpuscular Volume 84.1 fL (80.0-98.0); Mean Platelet Volume 9.3 fL (9.4-12.3); Monocytes Absolute Auto 0.7 X10*3/uL (0.1-1.2); Monocytes Percent Auto 10.2 % (2-11); Neutrophils Absolute Auto 4.1 x10*3/uL (2.0-8.3); Neutrophils Percent Auto 57.3 % (45-73); Platelet Count 310 X10*3/uL (160-400); Red Blood Count 4.22 X10*6/uL (4.20-5.50); Red Cell Distribution Width 16.8 % (11.0-16.0); White Blood Count 7.1 X10*3/uL (4.8-10.8)
--- NOTE | 2022-08-23 07:13 | HO.PM.IMPN ---
Subjective Subjective Date of Service: 08/22/22 Interval History: Complains of lightheadedness and dizziness. Monitor with up to 5 sec pauses. Diarrhea somewhat improved Review of Systems Denies chest pain Denies shortness of breath Denies nausea vomiting admits diarrhea Admits lightheadedness Physical Exam Vital Signs: Vital Signs: Last Vital Signs Temp 97.0 F 08/23/22 03:19 Pulse 60 08/23/22 03:19 Resp 20 08/23/22 03:19 BP 132/60 08/23/22 03:19 Pulse Ox 94 08/23/22 03:19 O2 Del Method CPAP 08/23/22 03:19 O2 Flow Rate 2 08/22/22 03:28 BMI result Body Mass Index 37.2 Const: Other: Awake alert no acute distress Resp: Other: Clear to auscultation bilaterally no rales rhonchi or wheezes Cardio: Other: Irregularly irregular; no S4; positive S1-S2; no S3; mid systolic murmur noted GI: Other: Soft nontender nondistended normoactive bowel sounds Extrem: Other: No edema bilaterally Objective Data Active Medications Acetaminophen (Acetaminophen 325 Mg Tablet) 650 mg PO Q6H PRN PRN Reason: Pain, Mild (Pain Scale 1-3) Last Admin: 08/22/22 08:15 Dose: 650 mg Documented By: DAMIEN Acetaminophen (Acetaminophen 325 Mg Tablet) 650 mg PO Q6H PRN PRN Reason: Pain (Scale Score 1-3) Atorvastatin Calcium (Atorvastatin Calcium 80 Mg Tablet) 80 mg PO BEDTIME [facility] Last Admin: 08/22/22 21:11 Dose: 80 mg Documented By: JOI Baclofen (Baclofen 10 Mg Tablet) 5 mg PO TID PRN PRN Reason: muscle spasm Cyanocobalamin (Cyanocobalamin (Vitamin B-12) 1,000 Mcg Tablet) 1,000 mcg PO DAILY [facility] Last Admin: 08/22/22 08:48 Dose: 1,000 mcg Documented By: DENISSE Docusate Sodium (Docusate Sodium 100 Mg Capsule) 100 mg PO BID PRN PRN Reason: constipation Empagliflozin (Empagliflozin 25 Mg Tablet) 25 mg PO DAILY [facility] Last Admin: 08/22/22 08:48 Dose: 25 mg Documented By: DENISSE Escitalopram Oxalate (Escitalopram Oxalate 10 Mg Tablet) 10 mg PO DAILY [facility] Last Admin: 08/22/22 08:48 Dose: 10 mg Documented By: DENISSE Fenofibrate (Fenofibrate 160 Mg Tablet) 160 mg PO DAILY [facility] Last Admin: 08/22/22 08:48 Dose: 160 mg Documented By: DENISSE Ferrous Sulfate (Ferrous Sulfate 324 Mg Tablet.Dr) 324 mg PO DAILY [facility] Last Admin: 08/22/22 08:47 Dose: 324 mg Documented By: DENISSE Fluticasone Propionate (Fluticasone Propionate Nasal 16 Gm [place]) 1 spray NOSTRIL-B DAILY [facility] Last Admin: 08/22/22 14:07 Dose: Not Given Documented By: DAMIEN Non-Admin Reason: Med Not Available Gabapentin (Gabapentin 600 Mg Tablet) 600 mg PO TID [facility] Last Admin: 08/22/22 21:11 Dose: 600 mg Documented By: JOI Glucose (Glucose Gel 15 Gm Gel..Gram.) 15 gm PO Q15M PRN; Protocol PRN Reason: per Hypoglycemia Standing Ord. Hydroxychloroquine Sulfate (Hydroxychloroquine Sulfate 200 Mg Tablet) 200 mg PO BID [facility] Last Admin: 08/22/22 21:11 Dose: 200 mg Documented By: JOI Dextrose (D10) 250 mls @ 750 mls/hr IV Q15M PRN; Protocol PRN Reason: per Hypoglycemia Standing Ord. Lactated Ringer's (Lr) 1,000 mls @ 125 mls/hr IVCONT .Q8H [facility] Last Admin: 08/23/22 06:24 Dose: 125 mls/hr Documented By: NAZARIO Insulin Human Lispro (Insulin Lispro 100 Unit/Ml 3 Ml Vial) 0.1 - 10 unit SUBCUT QIDACHS [facility]; Protocol Last Admin: 08/22/22 21:08 Dose: Not Given Documented By: JOI Non-Admin Reason: No Insulin Coverage Loratadine (Loratadine 10 Mg Tablet) 10 mg PO DAILY [facility] Last Admin: 08/22/22 08:46 Dose: 10 mg Documented By: DENISSE Losartan Potassium (Losartan Potassium 25 Mg Tablet) 25 mg PO DAILY [facility]; Protocol Last Admin: 08/22/22 08:47 Dose: 25 mg Documented By: DENISSE Magnesium Oxide (Magnesium Oxide 400 Mg Tablet) 200 mg PO DAILY [facility] Last Admin: 08/22/22 08:48 Dose: 200 mg Documented By: DENISSE Melatonin (Melatonin 3 Mg Tablet) 6 mg PO BEDTIME PRN PRN Reason: Insomnia Last Admin: 08/22/22 21:48 Dose: 6 mg Documented By: JOI Metformin HCl (Metformin Hcl 1,000 Mg Tablet) 1,000 mg PO BIDWM [facility] Last Admin: 08/22/22 17:59 Dose: 1,000 mg Documented By: JOI Mirabegron (Mirabegron 50 Mg Tab.Er.24h) 50 mg PO DAILY [facility] Last Admin: 08/22/22 08:46 Dose: 50 mg Documented By: DENISSE Omeprazole (Omeprazole 40 Mg Capsule.Dr) 40 mg PO DAILY@0630 [facility] Last Admin: 08/23/22 06:32 Dose: Not Given Documented By: NAZARIO Non-Admin Reason: NPO Ondansetron HCl (Ondansetron Hcl 4 Mg/2 Ml Vial) 4 mg IVPUSH Q8H PRN PRN Reason: Nausea and Vomiting Last Admin: 08/21/22 12:58 Dose: 4 mg Documented By: BRUNILDA Oxybutynin Chloride (Oxybutynin Chloride Er 5 Mg Tab.Er.24) 5 mg PO DAILY [facility] Last Admin: 08/22/22 08:46 Dose: 5 mg Documented By: DENISSE Pharmacy Consult (Consult Rx Perform Med Rec) 1 each MISCELLANE ONCE PRN PRN Reason: Consult order Pharmacy Consult (Consult Rx Vancomycin Dosing) 1 each MISCELLANE DAILY PRN PRN Reason: Consult order Rivaroxaban (Rivaroxaban 20 Mg Tablet) 20 mg PO DAILY@1700 [facility] Last Admin: 08/21/22 16:57 Dose: 20 mg Documented By: CHASE Ropinirole HCl (Ropinirole Hcl 0.25 Mg Tablet) 0.5 mg PO BEDTIME [facility] Last Admin: 08/22/22 21:12 Dose: 0.5 mg Documented By: JOI Senna (Sennosides 8.6 Mg Tablet) 17.2 mg PO BEDTIME PRN PRN Reason: Constipation Sodium Chloride (0.9 % Sodium Chloride Flush 3 Ml Syringe) 3 ml IVFLUSH QSHIFT [facility] Last Admin: 08/23/22 00:55 Dose: Not Given Documented By: NAZARIO Non-Admin Reason: IV Running Thiamine HCl (Thiamine Hcl 100 Mg Tablet) 100 mg PO DAILY [facility] Last Admin: 08/22/22 08:47 Dose: 100 mg Documented By: DENISSE Trazodone HCl (Trazodone Hcl 100 Mg Tablet) 100 mg PO BEDTIME [facility] Last Admin: 08/22/22 21:48 Dose: 100 mg Documented By: JOI Vitamin D (Cholecalciferol (Vitamin D3) 25 Mcg Tablet) 25 mcg PO DAILY [facility] Last Admin: 08/22/22 08:48 Dose: 25 mcg Documented By: DENISSE Labs 08/23/22 06:24 08/22/22 06:08 Labs: Laboratory Results - last 24 hr 08/22/22 08/22/22 08/22/22 11:27 16:22 20:18 MCV MCH MCHC RDW Plt Count MPV Immature Gran % (Auto) Neut % (Auto) Lymph % (Auto) Angelina % (Auto) Eos % (Auto) Baso % (Auto) Lymph # (Auto) Angelina # (Auto) Eos # (Auto) Baso # (Auto) Abs Immat Gran (auto) Absolute Neuts (auto) Absolute Nucleated RBC Nucleated RBC % (auto) POC Glucose 178 H 99 118 H 08/23/22 06:24 MCV 84.1 MCH 27.3 MCHC 32.4 RDW 16.8 H Plt Count 310 MPV 9.3 L Immature Gran % (Auto) 0.3 Neut % (Auto) 57.3 Lymph % (Auto) 26.8 Angelina % (Auto) 10.2 Eos % (Auto) 4.1 H Baso % (Auto) 1.3 Lymph # (Auto) 1.9 Angelina # (Auto) 0.7 Eos # (Auto) 0.3 Baso # (Auto) 0.1 Abs Immat Gran (auto) 0.02 Absolute Neuts (auto) 4.1 Absolute Nucleated RBC 0.000 Nucleated RBC % (auto) 0.0 POC Glucose Assessment and Plan (1) Atrial flutter with rapid ventricular response: Status: Acute Plan This is a 72-year-old female with pertinent history of insulin-dependent diabetes mellitus, essential hypertension, paroxysmal atrial fibrillation on Xarelto, mood disorder, history of CVA presents to the emergency department for evaluation of palpitations and dizziness in the backdrop of 48 hours of diarrhea. Rhythm demonstrated a flutter with some response to volume repletion. Overnight and this a.m. noted to have 5.2nd pause followed by isolated sinus beat then returning to a flutter. Seen by Cardiology who recommends dual chamber pacer secondary to sinoatrial dysfunction 1. AFlutter with multiple pauses -seen by Cardiology; scheduled for dual chamber pacer 08/24/22 -avoid justine agents until pacer placed 2.Gastroenteritis -GI panel negative -supportive therapy with ongoing volume repletion 3.Essential hypertension -acceptable control on current therapies -adjust as indicated 4.Insulin-dependent diabetes mellitus -acceptable control on current therapies -continue lispro correctional scale -adjust as indicated Xarelto Full code Require ongoing hospitalization to monitor cardiac rhythm and to facilitate dual chamber pacer Time Spent With Patient Time: Total time managing care of this patient today ____ minutes. Quality Stroke Does the patient have a stroke diagnosis?: No VTE Prior VTE?: No VTE Risk Level:: Medical - moderate - high VTE Device Contraindication: Treatment Not Indicated VTE Drug Contraindication: N/A - Med Ordered
[2022-08-23 07:22] LABS: Alanine Aminotransferase 12 U/L (0-31); Albumin Level 3.4 g/dL (3.5-5.0); Alkaline Phosphatase 47 U/L (39-117); Anion Gap 10 (12-20); Aspartate Amino Transferase 16 U/L (5-31); Bilirubin Total 0.6 mg/dL (0.0-1.0); Blood Urea Nitrogen 17 mg/dL (9-16); Calcium 9.1 mg/dL (8.4-10.2); Carbon Dioxide 27 mmol/L (22-29); Chloride 105 mmol/L (96-108); Estimated Glomerular Filt Rate > 60; Glucose Fasting 104 mg/dL (60-99); Potassium 4.4 mmol/L (3.3-5.1); Sodium 138 mmol/L (135-145); Total Protein 5.3 g/dL (6.5-8.0)
[2022-08-23 07:39] LABS: Glucose, Whole Blood 117 mg/dL (60-115)
--- NOTE | 2022-08-23 09:49 | PM.PNCARD ---
Subjective Subjective Date of Service: 08/23/22 Principal diagnosis: Sick sinus syndrome Interval history: No pauses overnight. Patient remains in sinus rhythm. No cardiac symptoms. Currently complaining of numbness in her feet. No other focal neurologic deficits Review of Systems Constitutional: Reports no additional constitutional complaints Cardiovascular: Reports no additional cardiovascular complaints Respiratory: Reports no additional respiratory complaints Genitourinary: Reports no additional female genitourinary complaints Reports restless legs Physical Exam Vital Signs: Last Vital Signs Temp 97.6 F 08/23/22 07:36 Pulse 72 08/23/22 07:36 Resp 16 08/23/22 07:36 BP 146/60 H 08/23/22 07:36 Pulse Ox 94 08/23/22 07:36 O2 Del Method Room Air 08/23/22 07:36 O2 Flow Rate 2 08/22/22 03:28 BMI result Body Mass Index 37.2 Const General: cooperative, comfortable, no acute distress, alert and awake Nutritional Appearance: obese Orientation/consciousness: patient oriented x3 Neck Neck: Yes trachea midline, Yes supple and Yes no JVD Resp Effort & Inspection: normal respiratory effort Auscultation: clear to auscultation bilaterally and diminished lung sounds Cardio Jugular venous distension: no JVD Palpation: normal PMI Rate: tachycardic Rhythm: abnormal rhythm irregularly irregular Heart sounds: S1 normal heart sound present, S2 normal heart sound present, no click, no gallops and Murmur heart sound present systolic mid GI Auscultation: normal bowel sounds Neuro General: patient oriented x3 and no focal motor deficits Objective Labs and Meds 08/23/22 06:24 08/23/22 06:24 Lab results: Laboratory Results - last 24 hr 08/22/22 08/22/22 08/22/22 11:27 16:22 20:18 WBC RBC Hgb Hct MCV MCH MCHC RDW Plt Count MPV Immature Gran % (Auto) Neut % (Auto) Lymph % (Auto) [place] % (Auto) Eos % (Auto) Baso % (Auto) Lymph # (Auto) [place] # (Auto) Eos # (Auto) Baso # (Auto) Abs Immat Gran (auto) Absolute Neuts (auto) Absolute Nucleated RBC Nucleated RBC % (auto) Sodium Potassium Chloride Carbon Dioxide Anion Gap BUN Creatinine Estim Creat Clear Calc Estimated GFR POC Glucose 178 H 99 118 H Fasting Glucose Calcium Total Bilirubin AST ALT Alkaline Phosphatase Total Protein Albumin 08/23/22 08/23/22 08/23/22 06:24 06:24 07:35 WBC 7.1 RBC 4.22 Hgb 11.5 L Hct 35.5 L MCV 84.1 MCH 27.3 MCHC 32.4 RDW 16.8 H Plt Count 310 MPV 9.3 L Immature Gran % (Auto) 0.3 Neut % (Auto) 57.3 Lymph % (Auto) 26.8 [place] % (Auto) 10.2 Eos % (Auto) 4.1 H Baso % (Auto) 1.3 Lymph # (Auto) 1.9 [place] # (Auto) 0.7 Eos # (Auto) 0.3 Baso # (Auto) 0.1 Abs Immat Gran (auto) 0.02 Absolute Neuts (auto) 4.1 Absolute Nucleated RBC 0.000 Nucleated RBC % (auto) 0.0 Sodium 138 Potassium 4.4 Chloride 105 Carbon Dioxide 27 Anion Gap 10 L BUN 17 H Creatinine 0.82 Estim Creat Clear Calc 66.0 Estimated GFR > 60 POC Glucose 117 H Fasting Glucose 104 H Calcium 9.1 Total Bilirubin 0.6 AST 16 ALT 12 Alkaline Phosphatase 47 Total Protein 5.3 L Albumin 3.4 L Progress Note: A&P Assessment and plan (1) Sinoatrial node dysfunction: Status: Acute Assessment and Plan: Sinoatrial justine dysfunction and is elderly woman with significant pauses and prolonged sinus node recovery time. Undergoing pacemaker placement today. Once pacemaker is implanted can resume her beta-blockers. Continue full oral anticoagulation in the long run given her prior history of stroke and high risk for thromboembolic complication. Will follow-up as outpatient. (2) Paroxysmal atrial fibrillation: Status: Acute Assessment and Plan: Paroxysmal atrial fibrillation, converted to sinus rhythm and remaining sinus rhythm at this point time. Resume full oral anticoagulation as before. If she has recurrent atrial fibrillation the future may need antiarrhythmic drug therapy to control arrhythmias. Undergoing pacemaker. Once pacemaker is implanted can resume beta-tato therapy. (3) Atherosclerotic cardiovascular disease: Status: Acute Assessment and Plan: Prior history of CAD with OM stent. Patient has no current general symptoms. Undergoing pacemaker placement. Continue high-intensity statin therapy. If plan to undergo knee surgery as she was planning May she require preoperative cardiovascular risk stratification. Follow up in the clinic after pacemaker placement. Will sign of the case. Thank you for allowing me to partake in her care Time Spent With Patient Time: Total time managing care of this patient today ____ minutes. Progress Note: Quality Stroke Does the patient have a stroke diagnosis?: No Procedures Date of Service Date of Service: 08/23/22
[2022-08-23] MEDS: Escitalopram Oxalate 10 MG TABLET PO (09:53)
[2022-08-23] MEDS: Mirabegron 50 MG TAB.ER.24H PO (09:53)
[2022-08-23] MEDS: Cyanocobalamin (Vitamin B-12) 1,000 MCG TABLET 1000 MCG PO (09:53)
[2022-08-23] MEDS: oxyBUTYnin chloride ER 5 MG TAB.ER.24 PO (09:53)
[2022-08-23] MEDS: Magnesium Oxide 400 MG TABLET 200 MG PO (09:54)
[2022-08-23] MEDS: metFORMIN HCl 1,000 MG TABLET 1000 MG PO ×2 (09:54→17:56)
[2022-08-23] MEDS: Thiamine HCL 100 MG TABLET PO (09:54)
[2022-08-23] MEDS: Cholecalciferol (Vitamin D3) 25 MCG TABLET PO (09:55)
[2022-08-23] MEDS: Loratadine 10 MG TABLET PO (09:55)
[2022-08-23] MEDS: Gabapentin 600 MG TABLET PO ×3 (09:55→20:20)
[2022-08-23] MEDS: Empagliflozin 25 MG TABLET PO (09:55)
[2022-08-23] MEDS: Hydroxychloroquine Sulfate 200 MG TABLET PO ×2 (09:55→20:19)
[2022-08-23] MEDS: Omeprazole 40 MG CAPSULE.DR PO (09:55)
[2022-08-23] MEDS: Fenofibrate 160 MG TABLET PO (09:55)
[2022-08-23] MEDS: Ferrous Sulfate 324 MG TABLET.DR PO (09:55)
[2022-08-23] MEDS: Losartan Potassium 25 MG TABLET PO (09:56)
[2022-08-23] MEDS: 0.9 % Sodium Chloride Flush 3 ML SYRINGE IVFLUSH ×3 (09:56→20:19)
[2022-08-23 11:15] LABS: Glucose, Whole Blood 105 mg/dL (60-115)
--- NOTE | 2022-08-23 12:33 | MHC.CM.PN ---
EMR reviewed, pacemaker placement today and per MD rounds anticipating D/C for tomorrow. to transport. CM will continue to follow.
[2022-08-23 13:24] LABS: Glucose, Whole Blood 88 mg/dL (60-115)
[2022-08-23] MEDS: vancomycin HCL 1,500 MG in 0.9 % Sodium Chloride 500 ML 333.33 MG IV (14:00)
--- NOTE | 2022-08-23 14:34 | PC.NURSE ---
Lindsay Hendrix RN called out from OR 2. Patient to received new antibiotic. Verbal order read back. Ancef 2 gram. Pulled from [place]. to place order.
--- NOTE | 2022-08-23 14:38 | MHC.CM.PN ---
PER UR NURSE PT NOW INPT, IMM DELIVERED TO BEDSIDE.
--- NOTE | 2022-08-23 15:17 | P.PNIM_ITS ---
Subjective Subjective Date of Service: 08/23/22 Interval History: No further pauses overnight; no cardiac complaints Review of Systems Denies chest pain Denies shortness of breath Denies nausea vomiting admits diarrhea Admits lightheadedness Physical Exam Vital Signs: Vital Signs: Last Vital Signs Temp 98.1 F 08/23/22 13:16 Pulse 65 08/23/22 13:16 Resp 16 08/23/22 13:16 BP 194/74 H 08/23/22 13:16 Pulse Ox 96 08/23/22 13:16 O2 Del Method Room Air 08/23/22 13:16 O2 Flow Rate 2 08/22/22 03:28 BMI result Body Mass Index 37.2 Const: Other: Awake alert no acute distress Resp: Other: Clear to auscultation bilaterally no rales rhonchi or wheezes Cardio: Other: Irregularly irregular; no S4; positive S1-S2; no S3; mid systolic murmur noted GI: Other: Soft nontender nondistended normoactive bowel sounds Extrem: Other: No edema bilaterally Objective Data Active Medications Acetaminophen (Acetaminophen 325 Mg Tablet) 650 mg PO Q6H PRN PRN Reason: Pain, Mild (Pain Scale 1-3) Last Admin: 08/22/22 08:15 Dose: 650 mg Documented By: DAMIEN Acetaminophen (Acetaminophen 325 Mg Tablet) 650 mg PO Q6H PRN PRN Reason: Pain (Scale Score 1-3) Atorvastatin Calcium (Atorvastatin Calcium 80 Mg Tablet) 80 mg PO BEDTIME [facility] Last Admin: 08/22/22 21:11 Dose: 80 mg Documented By: JOI Baclofen (Baclofen 10 Mg Tablet) 5 mg PO TID PRN PRN Reason: muscle spasm Cyanocobalamin (Cyanocobalamin (Vitamin B-12) 1,000 Mcg Tablet) 1,000 mcg PO DAILY [facility] Last Admin: 08/23/22 09:53 Dose: 1,000 mcg Documented By: MARILYNN Docusate Sodium (Docusate Sodium 100 Mg Capsule) 100 mg PO BID PRN PRN Reason: constipation Empagliflozin (Empagliflozin 25 Mg Tablet) 25 mg PO DAILY [facility] Last Admin: 08/23/22 09:55 Dose: 25 mg Documented By: MARILYNN Escitalopram Oxalate (Escitalopram Oxalate 10 Mg Tablet) 10 mg PO DAILY [facility] Last Admin: 08/23/22 09:53 Dose: 10 mg Documented By: MARILYNN Fenofibrate (Fenofibrate 160 Mg Tablet) 160 mg PO DAILY [facility] Last Admin: 08/23/22 09:55 Dose: 160 mg Documented By: MARILYNN Ferrous Sulfate (Ferrous Sulfate 324 Mg Tablet.Dr) 324 mg PO DAILY [facility] Last Admin: 08/23/22 09:55 Dose: 324 mg Documented By: MARILYNN Fluticasone Propionate (Fluticasone Propionate Nasal 16 Gm Horace) 1 spray NOSTRIL-B DAILY [facility] Last Admin: 08/23/22 12:40 Dose: Not Given Documented By: MARILYNN Non-Admin Reason: IV Running Gabapentin (Gabapentin 600 Mg Tablet) 600 mg PO TID [facility] Last Admin: 08/23/22 09:55 Dose: 600 mg Documented By: MARILYNN Glucose (Glucose Gel 15 Gm Gel..Gram.) 15 gm PO Q15M PRN; Protocol PRN Reason: per Hypoglycemia Standing Ord. Hydroxychloroquine Sulfate (Hydroxychloroquine Sulfate 200 Mg Tablet) 200 mg PO BID [facility] Last Admin: 08/23/22 09:55 Dose: 200 mg Documented By: MARILYNN Dextrose (D10) 250 mls @ 750 mls/hr IV Q15M PRN; Protocol PRN Reason: per Hypoglycemia Standing Ord. Nicardipine HCl 25 mg/ Sodium (Chloride) 260 mls @ 0 mls/hr IVCONT .Q0M [facility]; Protocol Insulin Human Lispro (Insulin Lispro 100 Unit/Ml 3 Ml Vial) 0.1 - 10 unit SUBCUT QIDACHS [facility]; Protocol Last Admin: 08/23/22 12:39 Dose: Not Given Documented By: MARILYNN Non-Admin Reason: NPO Loratadine (Loratadine 10 Mg Tablet) 10 mg PO DAILY [facility] Last Admin: 08/23/22 09:55 Dose: 10 mg Documented By: MARILYNN Losartan Potassium (Losartan Potassium 25 Mg Tablet) 25 mg PO DAILY [facility]; Protocol Last Admin: 08/23/22 09:56 Dose: 25 mg Documented By: MARILYNN Magnesium Oxide (Magnesium Oxide 400 Mg Tablet) 200 mg PO DAILY [facility] Last Admin: 08/23/22 09:54 Dose: 200 mg Documented By: MARILYNN Comments: Melatonin (Melatonin 3 Mg Tablet) 6 mg PO BEDTIME PRN PRN Reason: Insomnia Last Admin: 08/22/22 21:48 Dose: 6 mg Documented By: JOI Metformin HCl (Metformin Hcl 1,000 Mg Tablet) 1,000 mg PO BIDWM [facility] Last Admin: 08/23/22 09:54 Dose: 1,000 mg Documented By: MARILYNN Mirabegron (Mirabegron 50 Mg Tab.Er.24h) 50 mg PO DAILY [facility] Last Admin: 08/23/22 09:53 Dose: 50 mg Documented By: MARILYNN Omeprazole (Omeprazole 40 Mg Capsule.Dr) 40 mg PO DAILY@0630 [facility] Last Admin: 08/23/22 09:55 Dose: 40 mg Documented By: MARILYNN Ondansetron HCl (Ondansetron Hcl 4 Mg/2 Ml Vial) 4 mg IVPUSH Q8H PRN PRN Reason: Nausea and Vomiting Last Admin: 08/21/22 12:58 Dose: 4 mg Documented By: BRUNILDA Oxybutynin Chloride (Oxybutynin Chloride Er 5 Mg Tab.Er.24) 5 mg PO DAILY [facility] Last Admin: 08/23/22 09:53 Dose: 5 mg Documented By: MARILYNN Pharmacy Consult (Consult Rx Perform Med Rec) 1 each MISCELLANE ONCE PRN PRN Reason: Consult order Pharmacy Consult (Consult Rx Vancomycin Dosing) 1 each MISCELLANE DAILY PRN PRN Reason: Consult order Rivaroxaban (Rivaroxaban 20 Mg Tablet) 20 mg PO DAILY@1700 [facility] Last Admin: 08/21/22 16:57 Dose: 20 mg Documented By: CHASE Ropinirole HCl (Ropinirole Hcl 0.25 Mg Tablet) 0.5 mg PO BEDTIME [facility] Last Admin: 08/22/22 21:12 Dose: 0.5 mg Documented By: JOI Senna (Sennosides 8.6 Mg Tablet) 17.2 mg PO BEDTIME PRN PRN Reason: Constipation Sodium Chloride (0.9 % Sodium Chloride Flush 3 Ml Syringe) 3 ml IVFLUSH QSHIFT [facility] Last Admin: 08/23/22 09:56 Dose: 3 ml Documented By: MARILYNN Thiamine HCl (Thiamine Hcl 100 Mg Tablet) 100 mg PO DAILY [facility] Last Admin: 08/23/22 09:54 Dose: 100 mg Documented By: MARILYNN Trazodone HCl (Trazodone Hcl 100 Mg Tablet) 100 mg PO BEDTIME [facility] Last Admin: 08/22/22 21:48 Dose: 100 mg Documented By: JOI Vitamin D (Cholecalciferol (Vitamin D3) 25 Mcg Tablet) 25 mcg PO DAILY [facility] Last Admin: 08/23/22 09:55 Dose: 25 mcg Documented By: MARILYNN Labs 08/23/22 06:24 08/23/22 06:24 Labs: Laboratory Results - last 24 hr 08/22/22 08/22/22 08/23/22 16:22 20:18 06:24 MCV 84.1 MCH 27.3 MCHC 32.4 RDW 16.8 H Plt Count 310 MPV 9.3 L Immature Gran % (Auto) 0.3 Neut % (Auto) 57.3 Lymph % (Auto) 26.8 [place] % (Auto) 10.2 Eos % (Auto) 4.1 H Baso % (Auto) 1.3 Lymph # (Auto) 1.9 [place] # (Auto) 0.7 Eos # (Auto) 0.3 Baso # (Auto) 0.1 Abs Immat Gran (auto) 0.02 Absolute Neuts (auto) 4.1 Absolute Nucleated RBC 0.000 Nucleated RBC % (auto) 0.0 Anion Gap Estim Creat Clear Calc Estimated GFR POC Glucose 99 118 H Fasting Glucose Calcium Total Bilirubin AST ALT Alkaline Phosphatase Total Protein Albumin 08/23/22 08/23/22 08/23/22 06:24 07:35 10:55 MCV MCH MCHC RDW Plt Count MPV Immature Gran % (Auto) Neut % (Auto) Lymph % (Auto) [place] % (Auto) Eos % (Auto) Baso % (Auto) Lymph # (Auto) [place] # (Auto) Eos # (Auto) Baso # (Auto) Abs Immat Gran (auto) Absolute Neuts (auto) Absolute Nucleated RBC Nucleated RBC % (auto) Anion Gap 10 L Estim Creat Clear Calc 66.0 Estimated GFR > 60 POC Glucose 117 H 105 Fasting Glucose 104 H Calcium 9.1 Total Bilirubin 0.6 AST 16 ALT 12 Alkaline Phosphatase 47 Total Protein 5.3 L Albumin 3.4 L 08/23/22 13:20 MCV MCH MCHC RDW Plt Count MPV Immature Gran % (Auto) Neut % (Auto) Lymph % (Auto) [place] % (Auto) Eos % (Auto) Baso % (Auto) Lymph # (Auto) [place] # (Auto) Eos # (Auto) Baso # (Auto) Abs Immat Gran (auto) Absolute Neuts (auto) Absolute Nucleated RBC Nucleated RBC % (auto) Anion Gap Estim Creat Clear Calc Estimated GFR POC Glucose 88 Fasting Glucose Calcium Total Bilirubin AST ALT Alkaline Phosphatase Total Protein Albumin Assessment and Plan (1) Atrial flutter with rapid ventricular response: Status: Acute (2) Diarrhea: Status: Acute Plan This is a 72-year-old female with pertinent history of insulin-dependent diabetes mellitus, essential hypertension, paroxysmal atrial fibrillation on Xarelto, mood disorder, history of CVA presents to the emergency department for evaluation of palpitations and dizziness in the backdrop of 48 hours of diarrhea . Rhythm demonstrated a flutter with some response to volume repletion. Overnight and this a.m. noted to have 5.2nd pause followed by isolated sinus beat then returning to a flutter. Seen by Cardiology who recommends dual chamber pacer secondary to sinoatrial dysfunction 1. AFlutter with multiple pauses -dual chamber pacer today -avoid justine agents until pacer placed 2.Gastroenteritis -GI panel negative -supportive therapy with ongoing volume repletion 3.Essential hypertension -acceptable control on current therapies -adjust as indicated 4.Insulin-dependent diabetes mellitus -acceptable control on current therapies -continue lispro correctional scale -adjust as indicated Xarelto Full code Require ongoing hospitalization to monitor cardiac rhythm and to facilitate dual chamber pacer Time Spent With Patient Time: Total time managing care of this patient today ____ minutes. Quality Stroke Does the patient have a stroke diagnosis?: No VTE Prior VTE?: No VTE Risk Level:: Medical - moderate - high VTE Device Contraindication: Treatment Not Indicated VTE Drug Contraindication: N/A - Med Ordered
--- NOTE | 2022-08-23 15:54 | HO.ANESPROP2 ---
HPI - Anesthesia Eval Consult details Narrative: sick sinus syndome PMFSH Active Problems Active Problems: All Active Problems (Updated 08/23/22 @ 09:54 by Anthony Sales MD) Atherosclerotic cardiovascular disease (Acute) Sinoatrial node dysfunction (Acute) Atrial flutter with rapid ventricular response (Acute) Diarrhea (Acute Unknown) Physical deconditioning (Acute) Shortness of breath (Acute) Chest pain (Acute) Knee pain (Acute) Mild recurrent major depression (Acute) Neck pain (Acute) Osteoarthritis of right knee (Acute) Knee osteomyelits, right (Acute) Hospital discharge follow-up (Acute) Urge incontinence of urine (Acute) OAB (overactive bladder) (Acute) Hyperlipidemia LDL goal <70 (Acute) Spondylosis of cervical joint without myelopathy (Acute) Fracture, cervical vertebra (Acute) S/P insertion of spinal cord stimulator (Acute) Post-dural puncture headache (Acute) Dizziness (Acute) Overactive bladder (Acute) Stress incontinence (Acute) CHF exacerbation (Acute) Thrombocytosis (Acute) Anemia (Acute) Spondylosis of cervical spine with radiculopathy (Acute) Bilateral lumbar radiculopathy (Acute) Degenerative disc disease (Acute) Spinal stenosis (Acute) Spondylosis of lumbosacral spine with radiculopathy (Acute) Avulsion fracture of lateral malleolus of right fibula (Acute) Osteoarthritis of right knee (Acute) Neck pain (Acute) Headache (Acute) COVID-19 (Acute) Bronchitis (Acute) Screening for breast cancer (Acute) Post-menopausal (Acute) Adult general medical exam (Acute) Positive occult stool blood test (Acute) Hospital discharge follow-up (Acute) Acute upper GI bleed (Acute) Diabetic polyneuropathy (Acute) Thiamine deficiency (Acute) Hand pain (Acute) CVA (cerebral vascular accident) (Acute) Head injury (Acute) Left shoulder pain (Acute) Left knee pain (Acute) Left hip pain (Acute) Left hand pain (Acute) Dizziness (Acute) Diabetic neuropathy (Acute) Diabetes type 2, uncontrolled (Acute) Type 2 diabetes mellitus with other diabetic kidney complication (Acute) Proteinuria (Acute) Essential hypertension (Acute) Type 2 diabetes mellitus with diabetic polyneuropathy (Acute) Dyslipidemia (Acute) Obesity due to excess calories (Acute) Other and unspecified hyperlipidemia (Acute) Pulmonary hypertension (Acute) Ischemic stroke (Acute) Paroxysmal atrial fibrillation (Acute) Hospital discharge follow-up (Acute) Urge urinary incontinence (Acute) Iron deficiency anemia (Acute) Pure hypercholesterolemia (Acute) Diabetes mellitus (Acute) Lumbar degenerative disc disease (Acute) Past Medical History Medical History (Updated 08/23/22 @ 09:54 by Anthony Sales MD) Acute upper GI bleed Anemia Atherosclerotic cardiovascular disease Chronic heart failure with preserved ejection fraction (HFpEF) CVA (cerebral vascular accident) Diabetes mellitus Diabetes type 2, uncontrolled Diabetic neuropathy Diabetic polyneuropathy Dizziness Dyslipidemia Essential hypertension Falls Hand pain Head injury Headache Hospital discharge follow-up Iron deficiency anemia Ischemic stroke Left hand pain Left hip pain Left knee pain Left shoulder pain Lumbar degenerative disc disease Obesity due to excess calories Other and unspecified hyperlipidemia Paroxysmal atrial fibrillation PONV (postoperative nausea and vomiting) Proteinuria Pulmonary hypertension Pure hypercholesterolemia Thiamine deficiency Thrombus 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 Urge urinary incontinence Family History Family History Father Rectal cancer Hypertension Arthritis of knee CVD (cardiovascular disease) Mother Hypertension CVD (cardiovascular disease) Myocardial infarction Diabetes Family history of problems with anesthesia: No Surgical History Surgical History H/O colonoscopy History of Mohs micrographic surgery for skin cancer History of partial hysterectomy Hx of cardiac cath Hx of cervical spine surgery History of Problems with Anesthesia: Yes Social History Social History Household Members: Spouse Housing: Condominium Are you a primary clinical care coordinator to a significant other at home: No Do you presently have visiting nurse or other home services: No Alcohol intake: never Patient Tobacco Use Status: Former Tobacco user Quit Date: 1993 Tobacco use type: Cigarette Smoked in Last 30 Days: No e-Cigarette/Vaping Use: Never Used Patient Interested in Nicotine Replacement: No Patient Given Instructions on How to Stop Smoking: No Second Hand Smoke Exposure: No Use of substances other than those prescribed or required for medical reasons: No Are you DNR?: No Advance Directives: Yes Advance Directives Information Provided: Yes Advance Directives on File: Yes Advance Directives Date on File: 07/17/20 Nutrition Risks: No Nutritional Risk service: No Current occupational status: retired Current occupation: Lt handed Cognitive needs: Yes (scodor/walker) Hearing needs: No Vision needs: Yes (glasses) Meds Allergies Allergy/AdvReac Type Severity Reaction Status Date / Time morphine [Morphine] Allergy Severe ITCHING, Verified 07/23/22 08:39 hives cefdinir Allergy Intermediate hives Verified 07/23/22 08:39 sulfamethoxazole Allergy Intermediate RASH Verified 07/23/22 08:39 trimethoprim Allergy Intermediate RASH Verified 07/23/22 08:39 duloxetine AdvReac Severe altered Verified 07/23/22 08:39 behavior betina AdvReac Mild RUNNY NOSE Verified 07/23/22 08:39 mustard AdvReac Mild RUNNY NOSE Verified 07/23/22 08:39 potato [POTATO] AdvReac Mild ITCHY NOSE Verified 07/23/22 08:39 soybean AdvReac Mild RUNNY NOSE Verified 07/23/22 08:39 cheese AdvReac Intermediate head Uncoded 07/23/22 08:39 congestion Active Medications: Current Medications Acetaminophen (Acetaminophen 325 Mg Tablet) 650 mg PO Q6H PRN PRN Reason: Pain, Mild (Pain Scale 1-3) Last Admin: 08/22/22 08:15 Dose: 650 mg Acetaminophen (Acetaminophen 325 Mg Tablet) 650 mg PO Q6H PRN PRN Reason: Pain (Scale Score 1-3) Atorvastatin Calcium (Atorvastatin Calcium 80 Mg Tablet) 80 mg PO BEDTIME [facility] Last Admin: 08/22/22 21:11 Dose: 80 mg Baclofen (Baclofen 10 Mg Tablet) 5 mg PO TID PRN PRN Reason: muscle spasm Cyanocobalamin (Cyanocobalamin (Vitamin B-12) 1,000 Mcg Tablet) 1,000 mcg PO DAILY [facility] Last Admin: 08/23/22 09:53 Dose: 1,000 mcg Docusate Sodium (Docusate Sodium 100 Mg Capsule) 100 mg PO BID PRN PRN Reason: constipation Empagliflozin (Empagliflozin 25 Mg Tablet) 25 mg PO DAILY [facility] Last Admin: 08/23/22 09:55 Dose: 25 mg Escitalopram Oxalate (Escitalopram Oxalate 10 Mg Tablet) 10 mg PO DAILY [facility] Last Admin: 08/23/22 09:53 Dose: 10 mg Fenofibrate (Fenofibrate 160 Mg Tablet) 160 mg PO DAILY [facility] Last Admin: 08/23/22 09:55 Dose: 160 mg Fentanyl (Fentanyl Citrate/Pf 100 Mcg/2 Ml Vial) 25 mcg IVPUSH Q5M PRN; Protocol PRN Reason: Pain, Moderate (Pain Scale 4-6 Ferrous Sulfate (Ferrous Sulfate 324 Mg Tablet.Dr) 324 mg PO DAILY [facility] Last Admin: 08/23/22 09:55 Dose: 324 mg Fluticasone Propionate (Fluticasone Propionate Nasal 16 Gm [employer]) 1 spray NOSTRIL-B DAILY [facility] Last Admin: 08/23/22 12:40 Dose: Not Given Gabapentin (Gabapentin 600 Mg Tablet) 600 mg PO TID [facility] Last Admin: 08/23/22 09:55 Dose: 600 mg Glucose (Glucose Gel 15 Gm Gel..Gram.) 15 gm PO Q15M PRN; Protocol PRN Reason: per Hypoglycemia Standing Ord. Hydroxychloroquine Sulfate (Hydroxychloroquine Sulfate 200 Mg Tablet) 200 mg PO BID [facility] Last Admin: 08/23/22 09:55 Dose: 200 mg Dextrose (D10) 250 mls @ 750 mls/hr IV Q15M PRN; Protocol PRN Reason: per Hypoglycemia Standing Ord. Nicardipine HCl 25 mg/ Sodium (Chloride) 260 mls @ 0 mls/hr IVCONT .Q0M [facility]; Protocol Insulin Human Lispro (Insulin Lispro 100 Unit/Ml 3 Ml Vial) 0.1 - 10 unit SUBCUT QIDACHS [facility]; Protocol Last Admin: 08/23/22 12:39 Dose: Not Given Loratadine (Loratadine 10 Mg Tablet) 10 mg PO DAILY [facility] Last Admin: 08/23/22 09:55 Dose: 10 mg Losartan Potassium (Losartan Potassium 25 Mg Tablet) 25 mg PO DAILY [facility]; Protocol Last Admin: 08/23/22 09:56 Dose: 25 mg Magnesium Oxide (Magnesium Oxide 400 Mg Tablet) 200 mg PO DAILY [facility] Last Admin: 08/23/22 09:54 Dose: 200 mg Melatonin (Melatonin 3 Mg Tablet) 6 mg PO BEDTIME PRN PRN Reason: Insomnia Last Admin: 08/22/22 21:48 Dose: 6 mg Metformin HCl (Metformin Hcl 1,000 Mg Tablet) 1,000 mg PO BIDWM [facility] Last Admin: 08/23/22 09:54 Dose: 1,000 mg Mirabegron (Mirabegron 50 Mg Tab.Er.24h) 50 mg PO DAILY [facility] Last Admin: 08/23/22 09:53 Dose: 50 mg Omeprazole (Omeprazole 40 Mg Capsule.Dr) 40 mg PO DAILY@0630 [facility] Last Admin: 08/23/22 09:55 Dose: 40 mg Ondansetron HCl (Ondansetron Hcl 4 Mg/2 Ml Vial) 4 mg IVPUSH Q8H PRN PRN Reason: Nausea and Vomiting Last Admin: 08/21/22 12:58 Dose: 4 mg Oxybutynin Chloride (Oxybutynin Chloride Er 5 Mg Tab.Er.24) 5 mg PO DAILY [facility] Last Admin: 08/23/22 09:53 Dose: 5 mg Pharmacy Consult (Consult Rx Perform Med Rec) 1 each MISCELLANE ONCE PRN PRN Reason: Consult order Pharmacy Consult (Consult Rx Vancomycin Dosing) 1 each MISCELLANE DAILY PRN PRN Reason: Consult order Rivaroxaban (Rivaroxaban 20 Mg Tablet) 20 mg PO DAILY@1700 [facility] Last Admin: 08/21/22 16:57 Dose: 20 mg Ropinirole HCl (Ropinirole Hcl 0.25 Mg Tablet) 0.5 mg PO BEDTIME [facility] Last Admin: 08/22/22 21:12 Dose: 0.5 mg Senna (Sennosides 8.6 Mg Tablet) 17.2 mg PO BEDTIME PRN PRN Reason: Constipation Sodium Chloride (0.9 % Sodium Chloride Flush 3 Ml Syringe) 3 ml IVFLUSH QSHIFT [facility] Last Admin: 08/23/22 09:56 Dose: 3 ml Thiamine HCl (Thiamine Hcl 100 Mg Tablet) 100 mg PO DAILY [facility] Last Admin: 08/23/22 09:54 Dose: 100 mg Trazodone HCl (Trazodone Hcl 100 Mg Tablet) 100 mg PO BEDTIME [facility] Last Admin: 08/22/22 21:48 Dose: 100 mg Vitamin D (Cholecalciferol (Vitamin D3) 25 Mcg Tablet) 25 mcg PO DAILY [facility] Last Admin: 08/23/22 09:55 Dose: 25 mcg Home Medications Medication Instructions Recorded Confirmed Last Taken Type estradiol 0.01% (0.1 mg/gram) 1 appl vaginal 3XW 11/13/21 08/21/22 07/18/22 History vaginal cream ropinirole 0.25 mg tablet 2 tab PO BEDTIME 11/13/21 08/21/22 07/17/22 History acetaminophen 325 mg tablet 650 mg PO Q6H PRN Pain (Scale 07/18/22 08/21/22 Unknown History Score 1-3) baclofen 10 mg tablet 5 mg PO TID PRN muscle spasm 07/18/22 08/21/22 07/18/22 History dulaglutide 3 mg/0.5 mL 3 mg subcut TH@0900 07/18/22 08/21/22 07/11/22 History subcutaneous pen injector (Trulicity) insulin degludec 100 unit/mL (3 0 - 10 unit subcut BEDTIME 07/18/22 08/21/22 07/17/22 History mL) subcutaneous pen (Tresiba FlexTouch U-100 insulin) rivaroxaban 20 mg tablet (Xarelto) 20 mg PO DAILY@1700 07/18/22 08/21/22 07/17/22 History sennosides 8.6 mg tablet (senna) 17.2 mg PO BEDTIME PRN Constipation 07/18/22 08/21/22 Unknown History Exam Exam Date and Time: August 23, 2022 1554 Height,Weight and Vital Signs: Height 5 ft 3 in Weight 95.254 kg Last Vital Signs Temp 98.1 F 08/23/22 13:16 Pulse 65 08/23/22 13:16 Resp 16 08/23/22 13:16 BP 194/74 H 08/23/22 13:16 Pulse Ox 96 08/23/22 13:16 O2 Del Method Room Air 08/23/22 13:16 O2 Flow Rate 2 08/22/22 03:28 Pertinent Lab Results Pertinent Lab Results: Laboratory Tests 08/21/22 08/21/22 08/21/22 00:25 00:25 00:25 WBC 7.9 RBC 5.12 Hgb 13.6 Hct 42.7 MCV 83.4 MCH 26.6 L MCHC 31.9 RDW 16.6 H Plt Count 373 MPV 9.4 Immature Gran % (Auto) Neut % (Auto) Lymph % (Auto) [place] % (Auto) Eos % (Auto) Baso % (Auto) Lymph # (Auto) [place] # (Auto) Eos # (Auto) Baso # (Auto) Abs Immat Gran (auto) Absolute Neuts (auto) Absolute Nucleated RBC 0.000 Nucleated RBC % (auto) 0.0 Sodium 135 Potassium 4.0 Chloride 97 Carbon Dioxide 27 Anion Gap 15 BUN 28 H Creatinine 1.04 Estim Creat Clear Calc 52.0 Estimated GFR 52 POC Glucose Random Glucose 184 H Fasting Glucose Calcium 9.4 Total Bilirubin 0.4 AST 19 ALT 13 Alkaline Phosphatase 45 Troponin I High Sens 13.8 Total Protein 6.9 Albumin 4.0 TSH 2.91 Urine Color Urine Appearance Urine pH Ur Specific [place] Urine Protein Urine Glucose (UA) Urine Ketones Urine Blood Urine Nitrite Ur Leukocyte Esterase Urine RBC Urine WBC Ur Squamous Epith Cells Urine Bacteria Hyaline Casts Stl C. cayetanensis PCR Stool Rotavirus A PCR Stl Adenov F 40/41 PCR Stool Astrovirus (PCR) Stool Campylobacter PCR Stool Cryptosporidium PCR Stl Sh Tox Pr E STEC PCR Stool E coli O157 PCR Stl Enterotoxigenic E PCR Stool EPEC (PCR) Stool EAEC (PCR) Stl E. histolytica PCR Stool Giardia Lamblia PCR Stl P. shigelloides PCR Stool Salmonella PCR Stool Sapovirus (PCR) Stl Shigella/EIEC PCR St Y.enterocolitica PCR Stool Vibrio (PCR) Stl Vibrio cholerae PCR Stl Norovirus GI/GII PCR COVID-19 ([facility]) COVID-19 Clin Com 08/21/22 08/21/22 08/21/22 04:25 04:26 05:58 WBC 8.2 RBC 4.91 Hgb 13.2 Hct 40.7 MCV 82.9 MCH 26.9 L MCHC 32.4 RDW 16.4 H Plt Count 370 MPV 9.0 L Immature Gran % (Auto) 0.2 Neut % (Auto) 60.3 Lymph % (Auto) 25.9 [place]cd[place] % (Auto) 10.3 Eos % (Auto) 2.3 Baso % (Auto) 1.0 Lymph # (Auto) 2.1 [place] # (Auto) 0.8 Eos # (Auto) 0.2 Baso # (Auto) 0.1 Abs Immat Gran (auto) 0.02 Absolute Neuts (auto) 4.9 Absolute Nucleated RBC 0.000 Nucleated RBC % (auto) 0.0 Sodium Potassium Chloride Carbon Dioxide Anion Gap BUN Creatinine Estim Creat Clear Calc Estimated GFR POC Glucose Random Glucose Fasting Glucose Calcium Total Bilirubin AST ALT Alkaline Phosphatase Troponin I High Sens Total Protein Albumin TSH Urine Color Yellow Urine Appearance Clear Urine pH 6.0 Ur Specific [place] 1.025 Urine Protein 30 (1+) H Urine Glucose (UA) >=1000 H Urine Ketones Negative Urine Blood Negative Urine Nitrite Negative Ur Leukocyte Esterase Negative Urine RBC 0-2 Urine WBC 0-5 Ur Squamous Epith Cells 3-5 Urine Bacteria None Seen Hyaline Casts 0-2 Stl C. cayetanensis PCR Stool Rotavirus A PCR Stl Adenov F 40/ PCR Stool Astrovirus (PCR) Stool Campylobacter PCR Stool Cryptosporidium PCR Stl Sh Tox Pr E STEC PCR Stool E coli O157 PCR Stl Enterotoxigenic E PCR Stool EPEC (PCR) Stool EAEC (PCR) Stl E. histolytica PCR Stool Giardia Lamblia PCR Stl P. shigelloides PCR Stool Salmonella PCR Stool Sapovirus (PCR) Stl Shigella/EIEC PCR St Y.enterocolitica PCR Stool Vibrio (PCR) Stl Vibrio cholerae PCR Stl Norovirus GI/GII PCR COVID-19 ([facility]) Negative COVID-19 Clin Com See Note 08/21/22 08/21/22 08/21/22 07:29 07:32 09:09 WBC RBC Hgb Hct MCV MCH MCHC RDW Plt Count MPV Immature Gran % (Auto) Neut % (Auto) Lymph % (Auto) [place] % (Auto) Eos % (Auto) Baso % (Auto) Lymph # (Auto) [place] # (Auto) Eos # (Auto) Baso # (Auto) Abs Immat Gran (auto) Absolute Neuts (auto) Absolute Nucleated RBC Nucleated RBC % (auto) Sodium 139 Potassium 4.2 Chloride 100 Carbon Dioxide 29 Anion Gap 14 BUN 23 H Creatinine 0.94 Estim Creat Clear Calc 57.6 Estimated GFR 58 POC Glucose 127 H Random Glucose 132 H Fasting Glucose Calcium 9.6 Total Bilirubin AST ALT Alkaline Phosphatase Troponin I High Sens Total Protein Albumin TSH Urine Color Urine Appearance Urine pH Ur Specific [place] Urine Protein Urine Glucose (UA) Urine Ketones Urine Blood Urine Nitrite Ur Leukocyte Esterase Urine RBC Urine WBC Ur Squamous Epith Cells Urine Bacteria Hyaline Casts Stl C. cayetanensis PCR Not Detected Stool Rotavirus A PCR Not Detected Stl Adenov F 40 PCR Not Detected Stool Astrovirus (PCR) Not Detected Stool Campylobacter PCR Not Detected Stool Cryptosporidium PCR Not Detected Stl Sh Tox Pr E STEC PCR Not Detected Stool E coli O157 PCR Not applicable Stl Enterotoxigenic E PCR Not Detected Stool EPEC (PCR) Not Detected Stool EAEC (PCR) Not Detected Stl E. histolytica PCR Not Detected Stool Giardia Lamblia PCR Not Detected Stl P. shigelloides PCR Not Detected Stool Salmonella PCR Not Detected Stool Sapovirus (PCR) Not Detected Stl Shigella/EIEC PCR Not Detected St Y.enterocolitica PCR Not Detected Stool Vibrio (PCR) Not Detected Stl Vibrio cholerae PCR Not Detected Stl Norovirus GI/GII PCR Not Detected COVID-19 ([facility]) COVID-19 Clin Com 08/21/22 08/21/22 08/21/22 12:54 16:04 19:40 WBC RBC Hgb Hct MCV MCH MCHC RDW Plt Count MPV Immature Gran % (Auto) Neut % (Auto) Lymph % (Auto) [place] % (Auto) Eos % (Auto) Baso % (Auto) Lymph # (Auto) [place] # (Auto) Eos # (Auto) Baso # (Auto) Abs Immat Gran (auto) Absolute Neuts (auto) Absolute Nucleated RBC Nucleated RBC % (auto) Sodium Potassium Chloride Carbon Dioxide Anion Gap BUN Creatinine Estim Creat Clear Calc Estimated GFR POC Glucose 132 H 148 H 167 H Random Glucose Fasting Glucose Calcium Total Bilirubin AST ALT Alkaline Phosphatase Troponin I High Sens Total Protein Albumin TSH Urine Color Urine Appearance Urine pH Ur Specific [place] Urine Protein Urine Glucose (UA) Urine Ketones Urine Blood Urine Nitrite Ur Leukocyte Esterase Urine RBC Urine WBC Ur Squamous Epith Cells Urine Bacteria Hyaline Casts Stl C. cayetanensis PCR Stool Rotavirus A PCR Stl Adenov F 40/41 PCR Stool Astrovirus (PCR) Stool Campylobacter PCR Stool Cryptosporidium PCR Stl Sh Tox Pr E STEC PCR Stool E coli O157 PCR Stl Enterotoxigenic E PCR Stool EPEC (PCR) Stool EAEC (PCR) Stl E. histolytica PCR Stool Giardia Lamblia PCR Stl P. shigelloides PCR Stool Salmonella PCR Stool Sapovirus (PCR) Stl Shigella/EIEC PCR St Y.enterocolitica PCR Stool Vibrio (PCR) Stl Vibrio cholerae PCR Stl Norovirus GI/GII PCR COVID-19 ([facility]) COVID-19 Clin Com 08/22/22 08/22/22 08/22/22 06:08 06:08 06:53 WBC 6.9 RBC 4.44 Hgb 12.0 Hct 37.6 MCV 84.7 MCH 27.0 MCHC 31.9 RDW 16.9 H Plt Count 322 MPV 9.5 Immature Gran % (Auto) 0.4 Neut % (Auto) 59.0 Lymph % (Auto) 23.7 [place] % (Auto) 11.0 Eos % (Auto) 4.6 H Baso % (Auto) 1.3 Lymph # (Auto) 1.6 [place] # (Auto) 0.8 Eos # (Auto) 0.3 Baso # (Auto) 0.1 Abs Immat Gran (auto) 0.03 Absolute Neuts (auto) 4.1 Absolute Nucleated RBC 0.000 Nucleated RBC % (auto) 0.0 Sodium 137 Potassium 4.0 Chloride 103 Carbon Dioxide 26 Anion Gap 12 BUN 15 Creatinine 0.72 Estim Creat Clear Calc 75.2 Estimated GFR > 60 POC Glucose 125 H Random Glucose Fasting Glucose 117 H Calcium 9.5 Total Bilirubin 0.5 AST 19 ALT 12 Alkaline Phosphatase 43 Troponin I High Sens Total Protein 5.8 L Albumin 3.6 TSH Urine Color Urine Appearance Urine pH Ur Specific [place] Urine Protein Urine Glucose (UA) Urine Ketones Urine Blood Urine Nitrite Ur Leukocyte Esterase Urine RBC Urine WBC Ur Squamous Epith Cells Urine Bacteria Hyaline Casts Stl C. cayetanensis PCR Stool Rotavirus A PCR Stl Adenov F 40/41 PCR Stool Astrovirus (PCR) Stool Campylobacter PCR Stool Cryptosporidium PCR Stl Sh Tox Pr E STEC PCR Stool E coli O157 PCR Stl Enterotoxigenic E PCR Stool EPEC (PCR) Stool EAEC (PCR) Stl E. histolytica PCR Stool Giardia Lamblia PCR Stl P. shigelloides PCR Stool Salmonella PCR Stool Sapovirus (PCR) Stl Shigella/EIEC PCR St Y.enterocolitica PCR Stool Vibrio (PCR) Stl Vibrio cholerae PCR Stl Norovirus GI/GII PCR COVID-19 ([facility]) COVID-19 Clin Com 08/22/22 08/22/22 08/22/22 11:27 16:22 20:18 WBC RBC Hgb Hct MCV MCH MCHC RDW Plt Count MPV Immature Gran % (Auto) Neut % (Auto) Lymph % (Auto) [place] % (Auto) Eos % (Auto) Baso % (Auto) Lymph # (Auto) [place] # (Auto) Eos # (Auto) Baso # (Auto) Abs Immat Gran (auto) Absolute Neuts (auto) Absolute Nucleated RBC Nucleated RBC % (auto) Sodium Potassium Chloride Carbon Dioxide Anion Gap BUN Creatinine Estim Creat Clear Calc Estimated GFR POC Glucose 178 H 99 118 H Random Glucose Fasting Glucose Calcium Total Bilirubin AST ALT Alkaline Phosphatase Troponin I High Sens Total Protein Albumin TSH Urine Color Urine Appearance Urine pH Ur Specific [place] Urine Protein Urine Glucose (UA) Urine Ketones Urine Blood Urine Nitrite Ur Leukocyte Esterase Urine RBC Urine WBC Ur Squamous Epith Cells Urine Bacteria Hyaline Casts Stl C. cayetanensis PCR Stool Rotavirus A PCR Stl Adenov F 40/41 PCR Stool Astrovirus (PCR) Stool Campylobacter PCR Stool Cryptosporidium PCR Stl Sh Tox Pr E STEC PCR Stool E coli O157 PCR Stl Enterotoxigenic E PCR Stool EPEC (PCR) Stool EAEC (PCR) Stl E. histolytica PCR Stool Giardia Lamblia PCR Stl P. shigelloides PCR Stool Salmonella PCR Stool Sapovirus (PCR) Stl Shigella/EIEC PCR St Y.enterocolitica PCR Stool Vibrio (PCR) Stl Vibrio cholerae PCR Stl Norovirus GI/GII PCR COVID-19 ([facility]) COVID-19 Clin [facility] 08/23/22 08/23/22 08/23/22 06:24 06:24 07:35 WBC 7.1 RBC 4.22 Hgb 11.5 L Hct 35.5 L MCV 84.1 MCH 27.3 MCHC 32.4 RDW 16.8 H Plt Count 310 MPV 9.3 L Immature Gran % (Auto) 0.3 Neut % (Auto) 57.3 Lymph % (Auto) 26.8 [place] % (Auto) 10.2 Eos % (Auto) 4.1 H Baso % (Auto) 1.3 Lymph # (Auto) 1.9 [place] # (Auto) 0.7 Eos # (Auto) 0.3 Baso # (Auto) 0.1 Abs Immat Gran (auto) 0.02 Absolute Neuts (auto) 4.1 Absolute Nucleated RBC 0.000 Nucleated RBC % (auto) 0.0 Sodium 138 Potassium 4.4 Chloride 105 Carbon Dioxide 27 Anion Gap 10 L BUN 17 H Creatinine 0.82 Estim Creat Clear Calc 66.0 Estimated GFR > 60 POC Glucose 117 H Random Glucose Fasting Glucose 104 H Calcium 9.1 Total Bilirubin 0.6 AST 16 ALT 12 Alkaline Phosphatase 47 Troponin I High Sens Total Protein 5.3 L Albumin 3.4 L TSH Urine Color Urine Appearance Urine pH Ur Specific [place] Urine Protein Urine Glucose (UA) Urine Ketones Urine Blood Urine Nitrite Ur Leukocyte Esterase Urine RBC Urine WBC Ur Squamous Epith Cells Urine Bacteria Hyaline Casts Stl C. cayetanensis PCR Stool Rotavirus A PCR Stl Adenov F 40/ PCR Stool Astrovirus (PCR) Stool Campylobacter PCR Stool Cryptosporidium PCR Stl Sh Tox Pr E STEC PCR Stool E coli O157 PCR Stl Enterotoxigenic E PCR Stool EPEC (PCR) Stool EAEC (PCR) Stl E. histolytica PCR Stool Giardia Lamblia PCR Stl P. shigelloides PCR Stool Salmonella PCR Stool Sapovirus (PCR) Stl Shigella/EIEC PCR St Y.enterocolitica PCR Stool Vibrio (PCR) Stl Vibrio cholerae PCR Stl Norovirus GI/GII PCR COVID-19 ([facility]) COVID-19 Clin Com 08/23/22 08/23/22 10:55 13:20 WBC RBC Hgb Hct MCV MCH MCHC RDW Plt Count MPV Immature Gran % (Auto) Neut % (Auto) Lymph % (Auto) [place] % (Auto) Eos % (Auto) Baso % (Auto) Lymph # (Auto) [place] # (Auto) Eos # (Auto) Baso # (Auto) Abs Immat Gran (auto) Absolute Neuts (auto) Absolute Nucleated RBC Nucleated RBC % (auto) Sodium Potassium Chloride Carbon Dioxide Anion Gap BUN Creatinine Estim Creat Clear Calc Estimated GFR POC Glucose 105 88 Random Glucose Fasting Glucose Calcium Total Bilirubin AST ALT Alkaline Phosphatase Troponin I High Sens Total Protein Albumin TSH Urine Color Urine Appearance Urine pH Ur Specific [place] Urine Protein Urine Glucose (UA) Urine Ketones Urine Blood Urine Nitrite Ur Leukocyte Esterase Urine RBC Urine WBC Ur Squamous Epith Cells Urine Bacteria Hyaline Casts Stl C. cayetanensis PCR Stool Rotavirus A PCR Stl Adenov F PCR Stool Astrovirus (PCR) Stool Campylobacter PCR Stool Cryptosporidium PCR Stl Sh Tox Pr E STEC PCR Stool E coli O157 PCR Stl Enterotoxigenic E PCR Stool EPEC (PCR) Stool EAEC (PCR) Stl E. histolytica PCR Stool Giardia Lamblia PCR Stl P. shigelloides PCR Stool Salmonella PCR Stool Sapovirus (PCR) Stl Shigella/EIEC PCR St Y.enterocolitica PCR Stool Vibrio (PCR) Stl Vibrio cholerae PCR Stl Norovirus GI/GII PCR COVID-19 ([facility]) COVID-19 Clin Com Airway TM Dist: >3cm Neck ROM: Full Denture: Upper Partial: Lower Loose/Missing/Broken Teeth: Yes Heart: rrr sr Lungs: cta Assessment and Plan Final Anesthetic Review Family History of Problems with Anesthesia: No History of Problems with Anesthesia: Yes Patient Risk: High Procedure Risk: Low Anesthetic Plan Anesthetic Plan: MAC: Disposition: Standard PACU
--- NOTE | 2022-08-23 16:19 | W.PM.OPN ---
Operative Note Operative Note Date of Service: 08/23/22 Narrative: Dr. Rose dictating placement of a dual-chamber permanent pacemaker for clear-cut symptomatic bradycardia but with paroxysmal atrial fibrillation asystolic pauses exceeding 6 seconds with symptoms of dizziness and near-syncope progressive weakness fatigability representing symptomatic bradycardia clearly all sick sinus syndrome with bedside echo showing normal LV and RV function and no primary valve or pericardial disease this is an Abbot device after sterile preparation and draping in the OR we noted she was having a reaction to the IV vancomycin and we stopped it but she already has known multiple allergies including sulfa as well as cephalosporin so we chose not to give her a prophylactic antibiotic feeling that it was more dangerous than beneficial but we did give her 4 mg of IV Decadron in preparation for the IV contrast for the left subclavian venography which did take place without complication high late Ng the subclavian venous system demonstrating its patency I then made careful incision and dissection down to the level of the prepectoral fascia securing all bleeders and then gating separate needle entry x2 in to the subclavian venous system passing retrograde with Seldinger technique 2 J tipped guidewires over which 2 7 [place] [employer] introducers were placed and then 1st I placed a active fixation right ventricular lead to the right ventricular apex again without complication deploying the screw demonstrating that was well tethered no displacement with movement 10 volts there was no diaphragmatic irritation and lead impedance 660 Ohms and remained stable excellent injury current and sensing was 6.9 mV and capture 0.75 volts at 0.4 milliseconds so that lead was excellent and it was sewn and secured to the pectoral muscle in the floor of the pocket I then passed an active fixation right atrial lead to the right atrial appendage with a screw was deployed again well tethered at 10 volts no phrenic irritation she lead impedance stable at 460 Ohms sensing at 3.5 mV with excellent injury current and capture at 1 volt at 0.4 milliseconds so that lead was sewn and tethered to the pectoral muscle in the floor of the pocket I then expanded the pocket carefully along the plane of the prepectoral fascia securing all bleeders and then attached the 2 leads to the generator both well tethered no change in impedance and generator and leads were placed in the pocket and the wound was closed in 3 layers and sterilely dressed patient was awake removed from the table without complaint in good condition postoperative chest x-ray shows no pneumothorax no complication and excellent stable lead placement
[2022-08-23 17:35] LABS: Glucose, Whole Blood 119 mg/dL (60-115)
[2022-08-23] MEDS: Acetaminophen 325 MG TABLET 650 MG PO ×2 (17:54→23:45)
[2022-08-23] MEDS: Potassium Chloride ER 20 MEQ TAB.ER.PRT PO (17:55)
[2022-08-23] MEDS: Furosemide 20 MG/2 ML VIAL IVPUSH (18:00)
[2022-08-23] MEDS: rOPINIRole HCL 0.25 MG TABLET 0.5 MG PO (20:19)
[2022-08-23] MEDS: Baclofen 10 MG TABLET 5 MG PO (20:20)
[2022-08-23] MEDS: traZODone HCL 100 MG TABLET PO (20:20)
[2022-08-23] MEDS: Atorvastatin Calcium 80 MG TABLET PO (20:21)
[2022-08-23 21:05] LABS: Glucose, Whole Blood 239 mg/dL (60-115)
[2022-08-23] MEDS: Insulin Lispro 100 UNIT/ML 3 ML VIAL SUBCUT (21:08)
[2022-08-23] MEDS: Melatonin 3 MG TABLET 6 MG PO (23:47)
[2022-08-24] VITALS (7 sets, daily range): BP systolic 120–145; BP diastolic 59–79; PULSE 65–74; RESP 20; TEMP 36.2–37.2; O2SAT 94–98
[2022-08-24] MEDS: oxyCODONE HCl Immed Release 5 MG TABLET PO ×2 (05:30→22:21)
--- NOTE | 2022-08-24 05:42 | PC.NURSE ---
pt c/o 12/[address] Zuniga notified. Pt given one time dose of 5mg oxycodone.
[2022-08-24] MEDS: Omeprazole 40 MG CAPSULE.DR PO (05:54)
[2022-08-24 06:42] LABS: MANUAL DIFF FLAG NO
[2022-08-24 06:46] LABS: Basophils Percent Auto 0.5 % (0-2); Eosinophils Percent Auto 0.5 % (0-4); Hematocrit 33.9 % (37.0-47.0); Imm Gran Abs Auto 0.02 X10*3/uL (0.00-0.03); Imm Gran Pct Auto 0.3 % (0.0-0.4); Lymphocytes Absolute Auto 1.1 X10*3/uL (1.2-4.9); Lymphocytes Percent Auto 14.6 % (20-40); Mean Corpuscular HGB Conc 32.4 g/dl (31.0-35.0); Mean Corpuscular Volume 83.3 fL (80.0-98.0); Mean Platelet Volume 9.4 fL (9.4-12.3); Monocytes Absolute Auto 0.8 X10*3/uL (0.1-1.2); Monocytes Percent Auto 10.4 % (2-11); Neutrophils Absolute Auto 5.5 x10*3/uL (2.0-8.3); Neutrophils Percent Auto 73.7 % (45-73); Platelet Count 285 X10*3/uL (160-400); Red Blood Count 4.07 X10*6/uL (4.20-5.50); Red Cell Distribution Width 16.7 % (11.0-16.0); White Blood Count 7.5 X10*3/uL (4.8-10.8)
[2022-08-24 07:08] LABS: Alanine Aminotransferase 11 U/L (0-31); Albumin Level 3.4 g/dL (3.5-5.0); Alkaline Phosphatase 42 U/L (39-117); Anion Gap 14 (12-20); Aspartate Amino Transferase 18 U/L (5-31); Bilirubin Total 0.5 mg/dL (0.0-1.0); Blood Urea Nitrogen 19 mg/dL (9-16); Calcium 9.1 mg/dL (8.4-10.2); Carbon Dioxide 26 mmol/L (22-29); Chloride 102 mmol/L (96-108); Estimated Glomerular Filt Rate > 60; Glucose Fasting 141 mg/dL (60-99); Potassium 4.6 mmol/L (3.3-5.1); Sodium 137 mmol/L (135-145); Total Protein 5.5 g/dL (6.5-8.0)
[2022-08-24 07:25] LABS: Glucose, Whole Blood 129 mg/dL (60-115)
[2022-08-24] MEDS: Cyanocobalamin (Vitamin B-12) 1,000 MCG TABLET 1000 MCG PO (08:00)
[2022-08-24] MEDS: Mirabegron 50 MG TAB.ER.24H PO (08:01)
[2022-08-24] MEDS: metFORMIN HCl 1,000 MG TABLET 1000 MG PO ×2 (08:01→16:18)
[2022-08-24] MEDS: Cholecalciferol (Vitamin D3) 25 MCG TABLET PO (08:01)
[2022-08-24] MEDS: Hydroxychloroquine Sulfate 200 MG TABLET PO ×2 (08:01→21:54)
[2022-08-24] MEDS: Empagliflozin 25 MG TABLET PO (08:02)
[2022-08-24] MEDS: Gabapentin 600 MG TABLET PO ×3 (08:02→21:54)
[2022-08-24] MEDS: Fenofibrate 160 MG TABLET PO (08:03)
[2022-08-24] MEDS: Thiamine HCL 100 MG TABLET PO (08:03)
[2022-08-24] MEDS: Losartan Potassium 25 MG TABLET PO (08:03)
[2022-08-24] MEDS: Escitalopram Oxalate 10 MG TABLET PO (08:03)
[2022-08-24] MEDS: oxyBUTYnin chloride ER 5 MG TAB.ER.24 PO (08:03)
[2022-08-24] MEDS: Ferrous Sulfate 324 MG TABLET.DR PO (08:03)
[2022-08-24] MEDS: Magnesium Oxide 400 MG TABLET 200 MG PO (08:04)
[2022-08-24] MEDS: Loratadine 10 MG TABLET PO (08:04)
[2022-08-24] MEDS: 0.9 % Sodium Chloride Flush 3 ML SYRINGE IVFLUSH ×3 (08:05→23:44)
[2022-08-24] MEDS: Baclofen 10 MG TABLET 5 MG PO (08:12)
[2022-08-24] MEDS: Acetaminophen 325 MG TABLET 650 MG PO ×2 (08:12→14:11)
--- NOTE | 2022-08-24 08:19 | W.PM.CCCN ---
History of Present Illness Data of Consult Service Date: 08/22/22 Requesting physician: Anthony Sales Primary Care Provider: Marla Bray MD HPI Reason for consult: symptomatic bradycardia with multiple asystolic pauses before escape javier 72-year-old type 2 diabetic and hypertensive and hyperlipidemic and morbidly obese history of CVA so clearly vascular disease presents with with multiple episodes of weakness and dizziness clear-cut exertional fatigability but near-syncope the most prominent lately and she was noted to have paroxysmal atrial fibrillation/ flutter and then 2nd pause before a potential sinus mechanism or a wide QRS mechanism for escape clearly symptomatic bradycardia with sick sinus syndrome Review of Systems Review of Systems: Yes all other systems are reviewed and are negative [facility] Past Medical History Medical History (Updated 08/24/22 @ 08:25 by Iker Rose MD) Acute upper GI bleed Anemia Atherosclerotic cardiovascular disease Chronic heart failure with preserved ejection fraction (HFpEF) CVA (cerebral vascular accident) Diabetes mellitus Diabetes type 2, uncontrolled Diabetic neuropathy Diabetic polyneuropathy Dizziness Dyslipidemia Essential hypertension Falls Hand pain Head injury Headache Hospital discharge follow-up Iron deficiency anemia Ischemic stroke Left hand pain Left hip pain Left knee pain Left shoulder pain Lumbar degenerative disc disease Obesity due to excess calories Other and unspecified hyperlipidemia Paroxysmal atrial fibrillation PONV (postoperative nausea and vomiting) Proteinuria Pulmonary hypertension Pure hypercholesterolemia Thiamine deficiency Thrombus 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 Urge urinary incontinence Family History Family History Father Rectal cancer Hypertension Arthritis of knee CVD (cardiovascular disease) Mother Hypertension CVD (cardiovascular disease) Myocardial infarction Diabetes Surgical History Surgical History H/O colonoscopy History of Mohs micrographic surgery for skin cancer History of partial hysterectomy Hx of cardiac cath Hx of cervical spine surgery Social History Social History Household Members: Spouse Housing: Condominium Are you a primary day care attendant to a significant other at home: No Do you presently have visiting nurse or other home services: No Alcohol intake: never Patient Tobacco Use Status: Former Tobacco user Quit Date: 1993 Tobacco use type: Cigarette Smoked in Last 30 Days: No e-Cigarette/Vaping Use: Never Used Patient Interested in Nicotine Replacement: No Patient Given Instructions on How to Stop Smoking: No Second Hand Smoke Exposure: No Use of substances other than those prescribed or required for medical reasons: No Are you DNR?: No Advance Directives: Yes Advance Directives Information Provided: Yes Advance Directives on File: Yes Advance Directives Date on File: 07/17/20 Nutrition Risks: No Nutritional Risk service: No Current occupational status: retired Current occupation: Lt handed Cognitive needs: Yes (scodor/walker) Hearing needs: No Vision needs: Yes (glasses) Meds Allergies Allergy/AdvReac Type Severity Reaction Status Date / Time morphine [Morphine] Allergy Severe ITCHING, Verified 07/23/22 08:39 hives cefdinir Allergy Intermediate hives Verified 07/23/22 08:39 sulfamethoxazole Allergy Intermediate RASH Verified 07/23/22 08:39 trimethoprim Allergy Intermediate RASH Verified 07/23/22 08:39 duloxetine AdvReac Severe altered Verified 07/23/22 08:39 behavior betina AdvReac Mild RUNNY NOSE Verified 07/23/22 08:39 mustard AdvReac Mild RUNNY NOSE Verified 07/23/22 08:39 potato [POTATO] AdvReac Mild ITCHY NOSE Verified 07/23/22 08:39 soybean AdvReac Mild RUNNY NOSE Verified 07/23/22 08:39 cheese AdvReac Intermediate head Uncoded 07/23/22 08:39 congestion Active Medications: Current Medications Acetaminophen (Acetaminophen 325 Mg Tablet) 650 mg PO Q6H PRN PRN Reason: Pain, Mild (Pain Scale 1-3) Last Admin: 08/24/22 08:12 Dose: 650 mg Acetaminophen (Acetaminophen 325 Mg Tablet) 650 mg PO Q6H PRN PRN Reason: Pain (Scale Score 1-3) Atorvastatin Calcium (Atorvastatin Calcium 80 Mg Tablet) 80 mg PO BEDTIME [facility] Last Admin: 08/23/22 20:21 Dose: 80 mg Baclofen (Baclofen 10 Mg Tablet) 5 mg PO TID PRN PRN Reason: muscle spasm Last Admin: 08/24/22 08:12 Dose: 5 mg Cyanocobalamin (Cyanocobalamin (Vitamin B-12) 1,000 Mcg Tablet) 1,000 mcg PO DAILY [facility] Last Admin: 08/24/22 08:00 Dose: 1,000 mcg Docusate Sodium (Docusate Sodium 100 Mg Capsule) 100 mg PO BID PRN PRN Reason: constipation Empagliflozin (Empagliflozin 25 Mg Tablet) 25 mg PO DAILY [facility] Last Admin: 08/24/22 08:02 Dose: 25 mg Escitalopram Oxalate (Escitalopram Oxalate 10 Mg Tablet) 10 mg PO DAILY [facility] Last Admin: 08/24/22 08:03 Dose: 10 mg Fenofibrate (Fenofibrate 160 Mg Tablet) 160 mg PO DAILY [facility] Last Admin: 08/24/22 08:03 Dose: 160 mg Fentanyl (Fentanyl Citrate/Pf 100 Mcg/2 Ml Vial) 25 mcg IVPUSH Q5M PRN; Protocol PRN Reason: Pain, Moderate (Pain Scale 4-6 Ferrous Sulfate (Ferrous Sulfate 324 Mg Tablet.Dr) 324 mg PO DAILY [facility] Last Admin: 08/24/22 08:03 Dose: 324 mg Fluticasone Propionate (Fluticasone Propionate Nasal 16 Gm [place]) 1 spray NOSTRIL-B DAILY [facility] Last Admin: 08/23/22 12:40 Dose: Not Given Gabapentin (Gabapentin 600 Mg Tablet) 600 mg PO TID [facility] Last Admin: 08/24/22 08:02 Dose: 600 mg Glucose (Glucose Gel 15 Gm Gel..Gram.) 15 gm PO Q15M PRN; Protocol PRN Reason: per Hypoglycemia Standing Ord. Hydroxychloroquine Sulfate (Hydroxychloroquine Sulfate 200 Mg Tablet) 200 mg PO BID [facility] Last Admin: 08/24/22 08:01 Dose: 200 mg Dextrose (D10) 250 mls @ 750 mls/hr IV Q15M PRN; Protocol PRN Reason: per Hypoglycemia Standing Ord. Nicardipine HCl 25 mg/ Sodium (Chloride) 260 mls @ 0 mls/hr IVCONT .Q0M [facility]; Protocol Insulin Human Lispro (Insulin Lispro 100 Unit/Ml 3 Ml Vial) 0.1 - 10 unit SUBCUT QIDACHS [facility]; Protocol Last Admin: 08/24/22 07:44 Dose: Not Given Loratadine (Loratadine 10 Mg Tablet) 10 mg PO DAILY [facility] Last Admin: 08/24/22 08:04 Dose: 10 mg Losartan Potassium (Losartan Potassium 25 Mg Tablet) 25 mg PO DAILY [facility]; Protocol Last Admin: 08/24/22 08:03 Dose: 25 mg Magnesium Oxide (Magnesium Oxide 400 Mg Tablet) 200 mg PO DAILY [facility] Last Admin: 08/24/22 08:04 Dose: 200 mg Melatonin (Melatonin 3 Mg Tablet) 6 mg PO BEDTIME PRN PRN Reason: Insomnia Last Admin: 08/23/22 23:47 Dose: 6 mg Metformin HCl (Metformin Hcl 1,000 Mg Tablet) 1,000 mg PO BIDWM [facility] Last Admin: 08/24/22 08:01 Dose: 1,000 mg Mirabegron (Mirabegron 50 Mg Tab.Er.24h) 50 mg PO DAILY [facility] Last Admin: 08/24/22 08:01 Dose: 50 mg Omeprazole (Omeprazole 40 Mg Capsule.Dr) 40 mg PO DAILY@0630 [facility] Last Admin: 08/24/22 05:54 Dose: 40 mg Ondansetron HCl (Ondansetron Hcl 4 Mg/2 Ml Vial) 4 mg IVPUSH Q8H PRN PRN Reason: Nausea and Vomiting Last Admin: 08/21/22 12:58 Dose: 4 mg Ondansetron HCl (Ondansetron Hcl 4 Mg/2 Ml Vial) 4 mg IVPUSH ONCE PRN PRN Reason: Nausea and Vomiting Oxybutynin Chloride (Oxybutynin Chloride Er 5 Mg Tab.Er.24) 5 mg PO DAILY [facility] Last Admin: 08/24/22 08:03 Dose: 5 mg Pharmacy Consult (Consult Rx Perform Med Rec) 1 each MISCELLANE ONCE PRN PRN Reason: Consult order Rivaroxaban (Rivaroxaban 20 Mg Tablet) 20 mg PO DAILY@1700 [facility] Last Admin: 08/21/22 16:57 Dose: 20 mg Ropinirole HCl (Ropinirole Hcl 0.25 Mg Tablet) 0.5 mg PO BEDTIME [facility] Last Admin: 08/23/22 20:19 Dose: 0.5 mg Senna (Sennosides 8.6 Mg Tablet) 17.2 mg PO BEDTIME PRN PRN Reason: Constipation Sodium Chloride (0.9 % Sodium Chloride Flush 3 Ml Syringe) 3 ml IVFLUSH QSHIFT [facility] Last Admin: 08/24/22 08:05 Dose: 3 ml Thiamine HCl (Thiamine Hcl 100 Mg Tablet) 100 mg PO DAILY [facility] Last Admin: 08/24/22 08:03 Dose: 100 mg Trazodone HCl (Trazodone Hcl 100 Mg Tablet) 100 mg PO BEDTIME [facility] Last Admin: 08/23/22 20:20 Dose: 100 mg Vitamin D (Cholecalciferol (Vitamin D3) 25 Mcg Tablet) 25 mcg PO DAILY [facility] Last Admin: 08/24/22 08:01 Dose: 25 mcg Home Medications Medication Instructions Recorded Confirmed Last Taken Type estradiol 0.01% (0.1 mg/gram) 1 appl vaginal 3XW 11/13/21 08/21/22 07/18/22 History vaginal cream ropinirole 0.25 mg tablet 2 tab PO BEDTIME 11/13/21 08/21/22 07/17/22 History acetaminophen 325 mg tablet 650 mg PO Q6H PRN Pain (Scale 07/18/22 08/21/22 Unknown History Score 1-3) baclofen 10 mg tablet 5 mg PO TID PRN muscle spasm 07/18/22 08/21/22 07/18/22 History dulaglutide 3 mg/0.5 mL 3 mg subcut TH@0900 07/18/22 08/21/22 07/11/22 History subcutaneous pen injector (Trulicity) insulin degludec 100 unit/mL (3 0 - 10 unit subcut BEDTIME 07/18/22 08/21/22 07/17/22 History mL) subcutaneous pen (Tresiba FlexTouch U-100 insulin) rivaroxaban 20 mg tablet (Xarelto) 20 mg PO DAILY@1700 07/18/22 08/21/22 07/17/22 History sennosides 8.6 mg tablet (senna) 17.2 mg PO BEDTIME PRN Constipation 07/18/22 08/21/22 Unknown History Physical Exam Vital Signs: Vital Signs: Last Vital Signs Temp 97.1 F 08/24/22 07:21 Pulse 70 08/24/22 07:21 Resp 20 08/24/22 07:21 BP 145/79 H 08/24/22 07:21 Pulse Ox 98 08/24/22 07:21 O2 Del Method Room Air 08/24/22 07:21 O2 Flow Rate 2 08/23/22 16:58 BMI result Body Mass Index 37.2 on exam his skin color was good just trace of edema awake alert and oriented no respiratory effort with accessory muscle or diaphragm very subtle end-expiratory wheeze bilaterally bedside echo demonstrating a borderline left ventricular hypertrophy but globally normal systolic wall motion normal right ventricular dimension and function and no primary valve or pericardial disease abdomen benign nontender no organomegaly Results Labs 08/24/22 06:17 08/24/22 06:17 Labs: Short CBC 08/24/22 Range/Units 06:17 WBC 7.5 (4.8-10.8) X10*3/uL Hgb 11.0 L (12.0-16.0) g/dl Hct 33.9 L (37.0-47.0) % Plt Count 285 (160-400) X10*3/uL BMP 08/24/22 06:17 Sodium 137 Potassium 4.6 Chloride 102 Carbon Dioxide 26 BUN 19 H Creatinine 0.86 Calcium 9.1 Liver Function 08/24/22 Range/Units 06:17 Total Bilirubin 0.5 (0.0-1.0) mg/dL AST 18 (5-31) U/L ALT 11 (0-31) U/L Alkaline Phosphatase 42 (39-117) U/L Albumin 3.4 L (3.5-5.0) g/dL Assessment and Plan (1) Atherosclerotic cardiovascular disease: Status: Acute (2) Sinoatrial node dysfunction: Status: Acute (3) Atrial flutter with rapid ventricular response: Status: Acute (4) Diarrhea: Status: Acute (5) Shortness of breath: Status: Acute (6) Chest pain: Status: Acute (7) Mild recurrent major depression: Status: Acute (8) Hyperlipidemia LDL goal <70: Status: Acute (9) S/P insertion of spinal cord stimulator: Status: Acute (10) Dizziness: Status: Acute (11) Post-dural puncture headache: Status: Acute (12) CHF exacerbation: Qualifiers: Heart failure type: systolic Qualified Code(s): I50.23 - Acute on chronic systolic (congestive) heart failure Status: Acute (13) Thrombocytosis: Status: Acute (14) Anemia: Status: Acute (15) COVID-19: Status: Acute (16) Positive occult stool blood test: Status: Acute (17) Diabetic polyneuropathy: Status: Acute (18) Thiamine deficiency: Status: Acute (19) CVA (cerebral vascular accident): Status: Acute (20) Type 2 diabetes mellitus with other diabetic kidney complication: Status: Acute (21) Diabetes type 2, uncontrolled: Qualifiers: Glycemic state: with hypoglycemia Status: Acute (22) Essential hypertension: Status: Acute (23) Pulmonary hypertension: Status: Acute (24) Other and unspecified hyperlipidemia: Status: Acute (25) Paroxysmal atrial fibrillation: Status: Acute (26) Symptomatic bradycardia: Status: Acute (27) Sick sinus syndrome: Status: Acute Plan plan is the insertion of dual-chamber pacemaker at which point she could be placed on medication for the paroxysmal atrial fibrillation if need be hopefully this will alleviate her manifestations of heart failure as well as restore functional status Time Spent With Patient Time: Total time managing care of this patient today _35___ minutes.
--- NOTE | 2022-08-24 08:55 | HO.POSTANES ---
Post Anesthesia Evaluation Post Anesthesia Evaluation Vital Signs: Vital Signs Temp Pulse Resp BP Pulse Ox O2 Del Method 08/24/22 07:21 97.1 F 70 20 145/79 H 98 Room Air 08/23/22 23:05 98.3 F 70 18 143/69 H 93 CPAP 08/23/22 22:59 16 08/24/22 04:00 98.9 F 70 20 140/62 H 94 Room Air Anesthesia: Monitored Mental Status: Awake Pain Control: Satisfactory Nausea/Vomiting: None Hydration: Adequate Anesthesia-Related Issues: No Anes. Related Issues
--- NOTE | 2022-08-24 11:21 | PM.PNCARD ---
Subjective Subjective Date of Service: 08/24/22 Principal diagnosis: Sick sinus syndrome Interval history: Complains of pain at the pacer site. Says not ready to go home. Blood pressure is okay. Pacemaker working well. Review of Systems Constitutional: Reports no additional constitutional complaints Cardiovascular: Denies leg edema, Denies lightheadedness, Denies palpitations, Denies dyspnea and Reports other (Pain at pacer pocket site) Respiratory: Denies dyspnea Gastrointestinal: Reports no additional gastrointestinal complaints Musculoskeletal: Reports no additional musculoskeletal complaints Skin/Breast: Reports system reviewed and no additional complaints, except as docu Reports system reviewed and no additional complaints, except as documented Psychiatric: Reports no additional psychiatric complaints Endocrine: Denies palpitations Physical Exam Vital Signs: Last Vital Signs Temp 97.1 F 08/24/22 07:21 Pulse 70 08/24/22 07:21 Resp 20 08/24/22 07:21 BP 145/79 H 08/24/22 07:21 Pulse Ox 98 08/24/22 07:21 O2 Del Method Room Air 08/24/22 07:21 O2 Flow Rate 2 08/23/22 16:58 BMI result Body Mass Index 37.2 Const General: cooperative, comfortable, no acute distress, alert and awake Nutritional Appearance: obese Orientation/consciousness: patient oriented x3 Neck Neck: Yes trachea midline, Yes supple and Yes no JVD Resp Effort & Inspection: normal respiratory effort Auscultation: clear to auscultation bilaterally and diminished lung sounds Cardio Jugular venous distension: no JVD Palpation: normal PMI Rate: tachycardic Rhythm: abnormal rhythm irregularly irregular Heart sounds: S1 normal heart sound present, S2 normal heart sound present, no click, no gallops and Murmur heart sound present systolic mid GI Auscultation: normal bowel sounds Neuro General: patient oriented x3 and no focal motor deficits Objective Labs and Meds 08/24/22 06:17 08/24/22 06:17 Lab results: Laboratory Results - last 24 hr 08/23/22 08/23/22 08/23/22 13:20 17:32 21:00 WBC RBC Hgb Hct MCV MCH MCHC RDW Plt Count MPV Immature Gran % (Auto) Neut % (Auto) Lymph % (Auto) [place] % (Auto) Eos % (Auto) Baso % (Auto) Lymph # (Auto) [place] # (Auto) Eos # (Auto) Baso # (Auto) Abs Immat Gran (auto) Absolute Neuts (auto) Absolute Nucleated RBC Nucleated RBC % (auto) Sodium Potassium Chloride Carbon Dioxide Anion Gap BUN Creatinine Estim Creat Clear Calc Estimated GFR POC Glucose 88 119 H 239 H Fasting Glucose Calcium Total Bilirubin AST ALT Alkaline Phosphatase Total Protein Albumin 08/24/22 08/24/22 08/24/22 06:17 06:17 07:21 WBC 7.5 RBC 4.07 L Hgb 11.0 L Hct 33.9 L MCV 83.3 MCH 27.0 MCHC 32.4 RDW 16.7 H Plt Count 285 MPV 9.4 Immature Gran % (Auto) 0.3 Neut % (Auto) 73.7 H Lymph % (Auto) 14.6 L [place] % (Auto) 10.4 Eos % (Auto) 0.5 Baso % (Auto) 0.5 Lymph # (Auto) 1.1 L [place] # (Auto) 0.8 Eos # (Auto) 0.0 Baso # (Auto) 0.0 Abs Immat Gran (auto) 0.02 Absolute Neuts (auto) 5.5 Absolute Nucleated RBC 0.000 Nucleated RBC % (auto) 0.0 Sodium 137 Potassium 4.6 Chloride 102 Carbon Dioxide 26 Anion Gap 14 BUN 19 H Creatinine 0.86 Estim Creat Clear Calc 63.0 Estimated GFR > 60 POC Glucose 129 H Fasting Glucose 141 H Calcium 9.1 Total Bilirubin 0.5 AST 18 ALT 11 Alkaline Phosphatase 42 Total Protein 5.5 L Albumin 3.4 L Imaging Radiologist's impression: Impressions Chest X-Ray 08/23/22 16:42 IMPRESSION: Development of bilateral regions of disease since previous study of July 18, 2022 which may be related to edema. Chest X-Ray 08/24/22 07:30 FINDINGS/IMPRESSION: The study is limited by portable technique and low lung volumes. There is been improvement in previously described bilateral interstitial and airspace disease compared with one day prior, with no significant remaining infiltrate appreciated. No effusion or pneumothorax is seen. The cardiac silhouette is suboptimally evaluated. The tips of left subclavian pulse generator device leads project over the right atrium and right ventricle. The aorta is mildly atherosclerotic. There are mild degenerative changes of the spine and shoulders. Progress Note: A&P Assessment and plan (1) Sinoatrial node dysfunction: Status: Acute Assessment and Plan: Patient with significant pauses status post pacemaker placement. This is not corrected. Can resume her beta-tato therapy. Will follow up in the clinic in 6 weeks time for pacer check. Pacemaker pocket appears benign. (2) Paroxysmal atrial fibrillation: Status: Acute Assessment and Plan: Paroxysmal atrial fibrillation which is now suppressed. Resume beta-tato therapy. Also resume oral anticoagulation therapy reduce stroke risk. Will follow up as outpatient. Thank you for allowing me to partake in her care Time Spent With Patient Time: Total time managing care of this patient today ____ minutes. Progress Note: Quality Stroke Does the patient have a stroke diagnosis?: No Procedures Date of Service Date of Service: 08/24/22
[2022-08-24 11:56] LABS: Glucose, Whole Blood 182 mg/dL (60-115)
[2022-08-24] MEDS: Insulin Lispro 100 UNIT/ML 3 ML VIAL SUBCUT (12:06)
--- NOTE | 2022-08-24 12:38 | P.PNIM_ITS ---
Subjective Subjective Date of Service: 08/24/22 Interval History: Did well overnight status post pacer. Pacer interrogated this a.m. without issue Review of Systems Denies chest pain Denies shortness of breath Denies nausea vomiting admits diarrhea Admits lightheadedness Physical Exam 2 Vital Signs: Vital Signs: Last Vital Signs Temp 97.2 F 08/24/22 11:29 Pulse 74 08/24/22 11:29 Resp 20 08/24/22 11:29 BP 140/74 H 08/24/22 11:29 Pulse Ox 98 08/24/22 07:21 O2 Del Method Room Air 08/24/22 07:21 O2 Flow Rate 2 08/23/22 16:58 BMI result Body Mass Index 37.2 Const: Other: Awake alert no acute distress Chest: Other: Pacers pocket without evidence of hematoma Resp: Other: Clear to auscultation bilaterally no rales rhonchi or wheezes Cardio: Other: Irregularly irregular; no S4; positive S1-S2; no S3; mid systolic murmur noted GI: Other: Soft nontender nondistended normoactive bowel sounds Extrem: Other: No edema bilaterally Objective Data Active Medications Acetaminophen (Acetaminophen 325 Mg Tablet) 650 mg PO Q6H PRN PRN Reason: Pain, Mild (Pain Scale 1-3) Last Admin: 08/24/22 08:12 Dose: 650 mg Documented By: SANJEEV Acetaminophen (Acetaminophen 325 Mg Tablet) 650 mg PO Q6H PRN PRN Reason: Pain (Scale Score 1-3) Atorvastatin Calcium (Atorvastatin Calcium 80 Mg Tablet) 80 mg PO BEDTIME [facility] Last Admin: 08/23/22 20:21 Dose: 80 mg Documented By: ERICK Baclofen (Baclofen 10 Mg Tablet) 5 mg PO TID PRN PRN Reason: muscle spasm Last Admin: 08/24/22 08:12 Dose: 5 mg Documented By: SANJEEV Cyanocobalamin (Cyanocobalamin (Vitamin B-12) 1,000 Mcg Tablet) 1,000 mcg PO DAILY [facility] Last Admin: 08/24/22 08:00 Dose: 1,000 mcg Documented By: SANJEEV Docusate Sodium (Docusate Sodium 100 Mg Capsule) 100 mg PO BID PRN PRN Reason: constipation Empagliflozin (Empagliflozin 25 Mg Tablet) 25 mg PO DAILY [facility] Last Admin: 08/24/22 08:02 Dose: 25 mg Documented By: SANJEEV Escitalopram Oxalate (Escitalopram Oxalate 10 Mg Tablet) 10 mg PO DAILY [facility] Last Admin: 08/24/22 08:03 Dose: 10 mg Documented By: SANJEEV Fenofibrate (Fenofibrate 160 Mg Tablet) 160 mg PO DAILY [facility] Last Admin: 08/24/22 08:03 Dose: 160 mg Documented By: SANJEEV Fentanyl (Fentanyl Citrate/Pf 100 Mcg/2 Ml Vial) 25 mcg IVPUSH Q5M PRN; Pr otocol PRN Reason: Pain, Moderate (Pain Scale 4-6 Ferrous Sulfate (Ferrous Sulfate 324 Mg Tablet.Dr) 324 mg PO DAILY [facility] Last Admin: 08/24/22 08:03 Dose: 324 mg Documented By: SANJEEV Fluticasone Propionate (Fluticasone Propionate Nasal 16 Gm [place]) 1 spray NOSTRIL-B DAILY [facility] Last Admin: 08/24/22 10:11 Dose: Not Given Documented By: SANJEEV Non-Admin Reason: pharmacist called Gabapentin (Gabapentin 600 Mg Tablet) 600 mg PO TID [facility] Last Admin: 08/24/22 08:02 Dose: 600 mg Documented By: SANJEEV Glucose (Glucose Gel 15 Gm Gel..Gram.) 15 gm PO Q15M PRN; Protocol PRN Reason: per Hypoglycemia Standing Ord. Hydroxychloroquine Sulfate (Hydroxychloroquine Sulfate 200 Mg Tablet) 200 mg PO BID [facility] Last Admin: 08/24/22 08:01 Dose: 200 mg Documented By: SANJEEV Dextrose (D10) 250 mls @ 750 mls/hr IV Q15M PRN; Protocol PRN Reason: per Hypoglycemia Standing Ord. Nicardipine HCl 25 mg/ Sodium (Chloride) 260 mls @ 0 mls/hr IVCONT .Q0M [facility]; Protocol Insulin Human Lispro (Insulin Lispro 100 Unit/Ml 3 Ml Vial) 0.1 - 10 unit SUBCUT QIDACHS [facility]; Protocol Last Admin: 08/24/22 12:06 Dose: 2 unit Documented By: SANJEEV Loratadine (Loratadine 10 Mg Tablet) 10 mg PO DAILY [facility] Last Admin: 08/24/22 08:04 Dose: 10 mg Documented By: SANJEEV Losartan Potassium (Losartan Potassium 25 Mg Tablet) 25 mg PO DAILY [facility]; Protocol Last Admin: 08/24/22 08:03 Dose: 25 mg Documented By: SANJEEV Magnesium Oxide (Magnesium Oxide 400 Mg Tablet) 200 mg PO DAILY [facility] Last Admin: 08/24/22 08:04 Dose: 200 mg Documented By: SANJEEV Melatonin (Melatonin 3 Mg Tablet) 6 mg PO BEDTIME PRN PRN Reason: Insomnia Last Admin: 08/23/22 23:47 Dose: 6 mg Documented By: ERICK Metformin HCl (Metformin Hcl 1,000 Mg Tablet) 1,000 mg PO BIDWM [facility] Last Admin: 08/24/22 08:01 Dose: 1,000 mg Documented By: SANJEEV Mirabegron (Mirabegron 50 Mg Tab.Er.24h) 50 mg PO DAILY [facility] Last Admin: 08/24/22 08:01 Dose: 50 mg Documented By: SANJEEV Omeprazole (Omeprazole 40 Mg Capsule.Dr) 40 mg PO DAILY@0630 [facility] Last Admin: 08/24/22 05:54 Dose: 40 mg Documented By: ERICK Ondansetron HCl (Ondansetron Hcl 4 Mg/2 Ml Vial) 4 mg IVPUSH Q8H PRN PRN Reason: Nausea and Vomiting Last Admin: 08/21/22 12:58 Dose: 4 mg Documented By: BRUNILDA Ondansetron HCl (Ondansetron Hcl 4 Mg/2 Ml Vial) 4 mg IVPUSH ONCE PRN PRN Reason: Nausea and Vomiting Oxybutynin Chloride (Oxybutynin Chloride Er 5 Mg Tab.Er.24) 5 mg PO DAILY [facility] Last Admin: 08/24/22 08:03 Dose: 5 mg Documented By: SANJEEV Pharmacy Consult (Consult Rx Perform Med Rec) 1 each MISCELLANE ONCE PRN PRN Reason: Consult order Rivaroxaban (Rivaroxaban 20 Mg Tablet) 20 mg PO DAILY@1700 [facility] Last Admin: 08/21/22 16:57 Dose: 20 mg Documented By: CHASE Ropinirole HCl (Ropinirole Hcl 0.25 Mg Tablet) 0.5 mg PO BEDTIME [facility] Last Admin: 08/23/22 20:19 Dose: 0.5 mg Documented By: HO.REYESAN Senna (Sennosides 8.6 Mg Tablet) 17.2 mg PO BEDTIME PRN PRN Reason: Constipation Sodium Chloride (0.9 % Sodium Chloride Flush 3 Ml Syringe) 3 ml IVFLUSH QSHIFT [facility] Last Admin: 08/24/22 08:05 Dose: 3 ml Documented By: SANJEEV Thiamine HCl (Thiamine Hcl 100 Mg Tablet) 100 mg PO DAILY [facility] Last Admin: 08/24/22 08:03 Dose: 100 mg Documented By: SANJEEV Trazodone HCl (Trazodone Hcl 100 Mg Tablet) 100 mg PO BEDTIME [facility] Last Admin: 08/23/22 20:20 Dose: 100 mg Documented By: ERICK Vitamin D (Cholecalciferol (Vitamin D3) 25 Mcg Tablet) 25 mcg PO DAILY [facility] Last Admin: 08/24/22 08:01 Dose: 25 mcg Documented By: SANJEEV Labs 08/24/22 06:17 08/24/22 06:17 Labs: Laboratory Results - last 24 hr 08/23/22 08/23/22 08/23/22 13:20 17:32 21:00 MCV MCH MCHC RDW Plt Count MPV Immature Gran % (Auto) Neut % (Auto) Lymph % (Auto) Logan % (Auto) Eos % (Auto) Baso % (Auto) Lymph # (Auto) Logan # (Auto) Eos # (Auto) Baso # (Auto) Abs Immat Gran (auto) Absolute Neuts (auto) Absolute Nucleated RBC Nucleated RBC % (auto) Anion Gap Estim Creat Clear Calc Estimated GFR POC Glucose 88 119 H 239 H Fasting Glucose Calcium Total Bilirubin AST ALT Alkaline Phosphatase Total Protein Albumin 08/24/22 08/24/22 08/24/22 06:17 06:17 07:21 MCV 83.3 MCH 27.0 MCHC 32.4 RDW 16.7 H Plt Count 285 MPV 9.4 Immature Gran % (Auto) 0.3 Neut % (Auto) 73.7 H Lymph % (Auto) 14.6 L Logan % (Auto) 10.4 Eos % (Auto) 0.5 Baso % (Auto) 0.5 Lymph # (Auto) 1.1 L Logan # (Auto) 0.8 Eos # (Auto) 0.0 Baso # (Auto) 0.0 Abs Immat Gran (auto) 0.02 Absolute Neuts (auto) 5.5 Absolute Nucleated RBC 0.000 Nucleated RBC % (auto) 0.0 Anion Gap 14 Estim Creat Clear Calc 63.0 Estimated GFR > 60 POC Glucose 129 H Fasting Glucose 141 H Calcium 9.1 Total Bilirubin 0.5 AST 18 ALT 11 Alkaline Phosphatase 42 Total Protein 5.5 L Albumin 3.4 L 08/24/22 11:52 MCV MCH MCHC RDW Plt Count MPV Immature Gran % (Auto) Neut % (Auto) Lymph % (Auto) Logan % (Auto) Eos % (Auto) Baso % (Auto) Lymph # (Auto) Logan # (Auto) Eos # (Auto) Baso # (Auto) Abs Immat Gran (auto) Absolute Neuts (auto) Absolute Nucleated RBC Nucleated RBC % (auto) Anion Gap Estim Creat Clear Calc Estimated GFR POC Glucose 182 H Fasting Glucose Calcium Total Bilirubin AST ALT Alkaline Phosphatase Total Protein Albumin Assessment and Plan (1) Atrial flutter with rapid ventricular response: Status: Acute (2) Diarrhea: Status: Acute Plan This is a 72-year-old female with pertinent history of insulin-dependent diabetes mellitus, essential hypertension, paroxysmal atrial fibrillation on Xarelto, mood disorder, history of CVA presents to the emergency department for evaluation of palpitations and dizziness in the backdrop of 48 hours of diarrhea. Rhythm demonstrated a flutter with some response to volume repletion. Overnight and this a.m. noted to have 5.2nd pause followed by isolated sinus be at then returning to a flutter. Seen by Cardiology who recommends dual chamber pacer secondary to sinoatrial dysfunction 1. AFlutter with multiple pauses -successful pacemaker placement -resume justine agents 2.Gastroenteritis -GI panel negative -supportive therapy with ongoing volume repletion 3.Essential hypertension -acceptable control on current therapies -adjust as indicated 4.Insulin-dependent diabetes mellitus -acceptable control on current therapies -continue lispro correctional scale -adjust as indicated Xarelto Full code Require ongoing hospitalization to monitor cardiac rhythm and to facilitate dual chamber pacer Time Spent With Patient Time: Total time managing care of this patient today ____ minutes. Quality Stroke Does the patient have a stroke diagnosis?: No VTE Prior VTE?: No VTE Risk Level:: Medical - moderate - high VTE Device Contraindication: Treatment Not Indicated VTE Drug Contraindication: N/A - Med Ordered
[2022-08-24] MEDS: Rivaroxaban 20 MG TABLET PO (16:18)
[2022-08-24 16:54] LABS: Glucose, Whole Blood 128 mg/dL (60-115)
[2022-08-24 21:01] LABS: Glucose, Whole Blood 133 mg/dL (60-115)
[2022-08-24] MEDS: rOPINIRole HCL 0.25 MG TABLET 0.5 MG PO (21:53)
[2022-08-24] MEDS: traZODone HCL 100 MG TABLET PO (21:54)
[2022-08-24] MEDS: Atorvastatin Calcium 80 MG TABLET PO (21:54)
[2022-08-24] MEDS: Throat Lozenge, Medicated LOZENGE 1 LOZENGE MUCOUS MEM (22:22)
--- NOTE | 2022-08-24 23:39 | ECG_ITS ---
Test Reason : rythm change Blood Pressure : / mmHG Vent. Rate : 071 BPM Atrial Rate : 071 BPM P-R Int : 190 ms QRS Dur : 104 ms QT Int : 462 ms P-R-T Axes : 065 023 -24 degrees QTc Int : 502 ms Normal sinus rhythm Minimal voltage criteria for LVH, may be normal variant ( [place] product ) Possible Inferior infarct (cited on or before 18-JUL-2022) T wave abnormality, consider anterior ischemia Abnormal ECG When compared with ECG of 21-AUG-2022 00:29, Significant changes have occurred Referred By: Bebe Larkin Electronically Signed By:KEAGAN MONACO
[2022-08-25] VITALS (10 sets, daily range): BP systolic 113–147; BP diastolic 60–96; PULSE 69–126; RESP 15–22; TEMP 36.4–36.8; O2SAT 92–98
--- NOTE | 2022-08-25 00:29 | PC.NURSE ---
Assumed care at 20:00. Patient alert and oriented. has incisional pain at her pacemaker incision site, rated at 8/10. She is POD1. She had a one time oxycodone this morning 5 mg. She has a tylenol order that is ordered for 1-3/10 pain. She says she takes oxycodone 5 mg four times daily at home, and it is on her med list as Q6 hours PRN; MD notified. Also, she had sore throat, MD notified. New order for one time oxycodone administered with good effect. New order for PRN cepacol lozenge administered with good effect. Patient noted to have in lead V1 on telemetry: ST-segment has been elevated since 08/23 at 17:03. unfortunately her last EKG was before this, and it is not discussed in MD notes. She is s/p new pacer, telemetry is A-paced. NURSING STAFF DEVELOPMENT COORDINATOR to printed before and after strips. She does have left chest pain at pacer incision site. MD notified. New order for EKG, which was taken.
--- NOTE | 2022-08-25 03:30 | MHC.PIE ---
P.AFIB RVR I.PT RHYTHM RETURNED TO AFIB RVR,HR 120'S,BP 131/96.ASLEEP,WHEN AWAKENED PT NOTED SL PALPITATIONS. NOTIFIED.ORDER FOR LOPRESSOR 5MG IV X 1 NOW GIVEN E.PT UPDATED,MED GIVEN.CONT TO MONITOR.
[2022-08-25] MEDS: Metoprolol Tartrate 5 MG/5 ML VIAL IVPUSH (04:14)
--- NOTE | 2022-08-25 05:45 | MHC.PIE ---
P.AFIB RVR I.REMAINS AFIB RVR,HR 120-130,BP 147/75.DR AGUERO UPDATED.ORDER FOR CARDIZEM 10 MG IV X 1 GIVEN. E.PT UPDATED,MED GIVEN.CONT TO MONITOR.
[2022-08-25] MEDS: Omeprazole 40 MG CAPSULE.DR PO (06:41)
[2022-08-25] MEDS: dilTIAZem HCL 50 MG/10 ML VIAL 10 MG IVPUSH (06:41)
[2022-08-25 07:19] LABS: Glucose, Whole Blood 142 mg/dL (60-115)
[2022-08-25] MEDS: Empagliflozin 25 MG TABLET PO (07:40)
[2022-08-25] MEDS: Hydroxychloroquine Sulfate 200 MG TABLET PO ×2 (07:41→20:52)
[2022-08-25] MEDS: Escitalopram Oxalate 10 MG TABLET PO (07:41)
[2022-08-25] MEDS: oxyBUTYnin chloride ER 5 MG TAB.ER.24 PO (07:41)
[2022-08-25] MEDS: metFORMIN HCl 1,000 MG TABLET 1000 MG PO ×2 (07:41→17:08)
[2022-08-25] MEDS: Ferrous Sulfate 324 MG TABLET.DR PO (07:41)
[2022-08-25] MEDS: Fenofibrate 160 MG TABLET PO (07:41)
[2022-08-25] MEDS: Thiamine HCL 100 MG TABLET PO (07:41)
[2022-08-25] MEDS: Cyanocobalamin (Vitamin B-12) 1,000 MCG TABLET 1000 MCG PO (07:42)
[2022-08-25] MEDS: Baclofen 10 MG TABLET 5 MG PO (07:42)
[2022-08-25] MEDS: Gabapentin 600 MG TABLET PO ×3 (07:42→20:54)
[2022-08-25] MEDS: Acetaminophen 325 MG TABLET 650 MG PO ×3 (07:43→20:55)
[2022-08-25] MEDS: Loratadine 10 MG TABLET PO (07:43)
[2022-08-25] MEDS: Losartan Potassium 25 MG TABLET PO (07:43)
[2022-08-25] MEDS: Cholecalciferol (Vitamin D3) 25 MCG TABLET PO (07:43)
[2022-08-25] MEDS: Mirabegron 50 MG TAB.ER.24H PO (07:43)
[2022-08-25] MEDS: Magnesium Oxide 400 MG TABLET 200 MG PO (07:43)
[2022-08-25] MEDS: 0.9 % Sodium Chloride Flush 3 ML SYRINGE IVFLUSH ×2 (07:45→17:09)
[2022-08-25] MEDS: Throat Lozenge, Medicated LOZENGE 1 LOZENGE MUCOUS MEM ×3 (07:55→21:05)
[2022-08-25] MEDS: atenoloL 50 MG TABLET PO (08:25)
[2022-08-25] MEDS: Fluticasone Propionate Nasal 16 GM SPRAY 1 SPRAY NOSTRIL-B (08:26)
--- NOTE | 2022-08-25 09:43 | HO.PM.IMPN ---
Subjective Subjective Date of Service: 08/25/22 Interval History: Seen and evaluated feels tired with no energy back to Afib w RvR no other overnigt events Review of Systems Review of Systems: Yes all other systems are reviewed and are negative Physical Exam Vital Signs: Vital Signs: Last Vital Signs Temp 98 F 08/25/22 07:24 Pulse 90 08/25/22 07:24 Resp 18 08/25/22 07:24 BP 128/75 08/25/22 07:24 Pulse Ox 96 08/25/22 07:24 O2 Del Method Room Air 08/25/22 07:24 O2 Flow Rate 2 08/23/22 16:58 BMI result Body Mass Index 37.2 Const: Other: Constitutional : Awake, interactive, not in distress Neck : Normal inspection, Supple Cardiovascular : irregular irregular with tachycardia, no JVP, no lower extremity edema Respiratory : good bilateral air entry, no crackles, wheezes or rhonchi Gastrointestinal: soft, lax, Normal bowel sounds, Non tender Skin : Warm, Dry, PPM surgical site clean with no erythema Neurological : Alert & oriented x3, No focal deficit Objective Data Active Medications Acetaminophen (Acetaminophen 325 Mg Tablet) 650 mg PO Q6H PRN PRN Reason: Pain, Mild (Pain Scale 1-3) Last Admin: 08/25/22 07:43 Dose: 650 mg Documented By: SANJEEV Acetaminophen (Acetaminophen 325 Mg Tablet) 650 mg PO Q6H PRN PRN Reason: Pain (Scale Score 1-3) Atenolol (Atenolol 50 Mg Tablet) 50 mg PO DAILY [facility]; Protocol Last Admin: 08/25/22 08:25 Dose: 50 mg Documented By: SANJEEV Atorvastatin Calcium (Atorvastatin Calcium 80 Mg Tablet) 80 mg PO BEDTIME [facility] Last Admin: 08/24/22 21:54 Dose: 80 mg Documented By: CHIDI Baclofen (Baclofen 10 Mg Tablet) 5 mg PO TID PRN PRN Reason: muscle spasm Last Admin: 08/25/22 07:42 Dose: 5 mg Documented By: SANJEEV Benzocaine (Throat Lozenge, Medicated Lozenge) 1 lozenge MUCOUS MEM Q2H PRN PRN Reason: Sore Throat Last Admin: 08/25/22 07:55 Dose: 1 lozenge Documented By: SANJEEV Cyanocobalamin (Cyanocobalamin (Vitamin B-12) 1,000 Mcg Tablet) 1,000 mcg PO DAILY [facility] Last Admin: 08/25/22 07:42 Dose: 1,000 mcg Documented By: SANJEEV Docusate Sodium (Docusate Sodium 100 Mg Capsule) 100 mg PO BID PRN PRN Reason: constipation Empagliflozin (Empagliflozin 25 Mg Tablet) 25 mg PO DAILY [facility] Last Admin: 08/25/22 07:40 Dose: 25 mg Documented By: SANJEEV Escitalopram Oxalate (Escitalopram Oxalate 10 Mg Tablet) 10 mg PO DAILY [facility] Last Admin: 08/25/22 07:41 Dose: 10 mg Documented By: SANJEEV Fenofibrate (Fenofibrate 160 Mg Tablet) 160 mg PO DAILY [facility] Last Admin: 08/25/22 07:41 Dose: 160 mg Documented By: SANJEEV Fentanyl (Fentanyl Citrate/Pf 100 Mcg/2 Ml Vial) 25 mcg IVPUSH Q5M PRN; Protocol PRN Reason: Pain, Moderate (Pain Scale 4-6 Ferrous Sulfate (Ferrous Sulfate 324 Mg Tablet.Dr) 324 mg PO DAILY [facility] Last Admin: 08/25/22 07:41 Dose: 324 mg Documented By: SANJEEV Fluticasone Propionate (Fluticasone Propionate Nasal 16 Gm [place]) 1 spray NOSTRIL-B DAILY [facility] Last Admin: 08/25/22 08:26 Dose: 1 spray Documented By: SANJEEV Gabapentin (Gabapentin 600 Mg Tablet) 600 mg PO TID [facility] Last Admin: 08/25/22 07:42 Dose: 600 mg Documented By: SANJEEV Glucose (Glucose Gel 15 Gm Gel..Gram.) 15 gm PO Q15M PRN; Protocol PRN Reason: per Hypoglycemia Standing Ord. Hydroxychloroquine Sulfate (Hydroxychloroquine Sulfate 200 Mg Tablet) 200 mg PO BID [facility] Last Admin: 08/25/22 07:41 Dose: 200 mg Documented By: SANJEEV Dextrose (D10) 250 mls @ 750 mls/hr IV Q15M PRN; Protocol PRN Reason: per Hypoglycemia Standing Ord. Nicardipine HCl 25 mg/ Sodium (Chloride) 260 mls @ 0 mls/hr IVCONT .Q0M [facility]; Protocol Insulin Human Lispro (Insulin Lispro 100 Unit/Ml 3 Ml Vial) 0.1 - 10 unit SUBCUT QIDACHS [facility]; Protocol Last Admin: 08/25/22 07:28 Dose: Not Given Documented By: SANJEEV Non-Admin Reason: No Insulin Coverage Loratadine (Loratadine 10 Mg Tablet) 10 mg PO DAILY [facility] Last Admin: 08/25/22 07:43 Dose: 10 mg Documented By: SANJEEV Losartan Potassium (Losartan Potassium 25 Mg Tablet) 25 mg PO DAILY [facility]; Protocol Last Admin: 08/25/22 07:43 Dose: 25 mg Documented By: SANJEEV Magnesium Oxide (Magnesium Oxide 400 Mg Tablet) 200 mg PO DAILY [facility] Last Admin: 08/25/22 07:43 Dose: 200 mg Documented By: SANJEEV Melatonin (Melatonin 3 Mg Tablet) 6 mg PO BEDTIME PRN PRN Reason: Insomnia Last Admin: 08/23/22 23:47 Dose: 6 mg Documented By: ERICK Metformin HCl (Metformin Hcl 1,000 Mg Tablet) 1,000 mg PO BIDWM [facility] Last Admin: 08/25/22 07:41 Dose: 1,000 mg Documented By: SANJEEV Mirabegron (Mirabegron 50 Mg Tab.Er.24h) 50 mg PO DAILY [facility] Last Admin: 08/25/22 07:43 Dose: 50 mg Documented By: SANJEEV Omeprazole (Omeprazole 40 Mg Capsule.Dr) 40 mg PO DAILY@0630 [facility] Last Admin: 08/25/22 06:41 Dose: 40 mg Documented By: DAYANARA Ondansetron HCl (Ondansetron Hcl 4 Mg/2 Ml Vial) 4 mg IVPUSH Q8H PRN PRN Reason: Nausea and Vomiting Last Admin: 08/21/22 12:58 Dose: 4 mg Documented By: BRUNILDA Ondansetron HCl (Ondansetron Hcl 4 Mg/2 Ml Vial) 4 mg IVPUSH ONCE PRN PRN Reason: Nausea and Vomiting Oxybutynin Chloride (Oxybutynin Chloride Er 5 Mg Tab.Er.24) 5 mg PO DAILY [facility] Last Admin: 08/25/22 07:41 Dose: 5 mg Documented By: SANJEEV Pharmacy Consult (Consult Rx Perform Med Rec) 1 each MISCELLANE ONCE PRN PRN Reason: Consult order Rivaroxaban (Rivaroxaban 20 Mg Tablet) 20 mg PO DAILY@1700 [facility] Last Admin: 08/24/22 16:18 Dose: 20 mg Documented By: SANJEEV Ropinirole HCl (Ropinirole Hcl 0.25 Mg Tablet) 0.5 mg PO BEDTIME [facility] Last Admin: 08/24/22 21:53 Dose: 0.5 mg Documented By: CHIDI Senna (Sennosides 8.6 Mg Tablet) 17.2 mg PO BEDTIME PRN PRN Reason: Constipation Sodium Chloride (0.9 % Sodium Chloride Flush 3 Ml Syringe) 3 ml IVFLUSH QSHIFT [facility] Last Admin: 08/25/22 07:45 Dose: 3 ml Documented By: SANJEEV Thiamine HCl (Thiamine Hcl 100 Mg Tablet) 100 mg PO DAILY [facility] Last Admin: 08/25/22 07:41 Dose: 100 mg Documented By: SANJEEV Trazodone HCl (Trazodone Hcl 100 Mg Tablet) 100 mg PO BEDTIME [facility] Last Admin: 08/24/22 21:54 Dose: 100 mg Documented By: CHIDI Vitamin D (Cholecalciferol (Vitamin D3) 25 Mcg Tablet) 25 mcg PO DAILY [facility] Last Admin: 08/25/22 07:43 Dose: 25 mcg Documented By: SANJEEV Labs 08/24/22 06:17 08/24/22 06:17 Labs: Laboratory Results - last 24 hr 08/24/22 08/24/22 08/24/22 11:52 16:46 20:49 POC Glucose 182 H 128 H 133 H 08/25/22 07:01 POC Glucose 142 H Assessment and Plan (1) Sick sinus syndrome: Status: Acute (2) Atrial flutter with rapid ventricular response: Status: Acute Plan This is a 72-year-old female with pertinent history of insulin-dependent diabetes mellitus, essential hypertension, paroxysmal atrial fibrillation on Xarelto, mood disorder, history of CVA presents to the emergency department for evaluation of palpitations and dizziness in the backdrop of 48 hours of diarrhea. Rhythm demonstrated a flutter with some response to volume repletion. Overnight and this a.m. noted to have 5.2nd pause followed by isolated sinus beat then returning to a flutter. Seen by Cardiology who recommends dual chamber pacer secondary to sinoatrial dysfunction 1. AFlutter with multiple pauses and now RVR successful pacemaker placement restart Atenolol monitor response 2.Gastroenteritis GI panel negative supportive therapy with ongoing volume repletion 3.Essential hypertension acceptable control on current therapies adjust as indicated 4.Insulin-dependent diabetes mellitus acceptable control on current therapies continue lispro correctional scale adjust as indicated DVT ppx Xarelto Require ongoing hospitalization to monitor cardiac rhythm for Aflutter RVR control Time Spent With Patient Time: Total time managing care of this patient today ____ minutes. Quality Stroke Does the patient have a stroke diagnosis?: No VTE Prior VTE?: No VTE Risk Level:: Medical - moderate - high VTE Device Contraindication: Treatment Not Indicated VTE Drug Contraindication: N/A - Med Ordered
--- NOTE | 2022-08-25 11:05 | PC.NURSE ---
pt c/o sweating and generalized tiredness. Vital signs as follow T 97.7. BP 132/90/ HR 122-135 (Afib on tele). RR. 22. O2 sat 94%. MD Dr Fleming notifed.
[2022-08-25 11:48] LABS: Glucose, Whole Blood 153 mg/dL (60-115)
[2022-08-25] MEDS: Insulin Lispro 100 UNIT/ML 3 ML VIAL SUBCUT ×2 (12:18→17:08)
[2022-08-25 17:00] LABS: Glucose, Whole Blood 169 mg/dL (60-115)
[2022-08-25] MEDS: Rivaroxaban 20 MG TABLET PO (17:08)
[2022-08-25 20:42] LABS: Glucose, Whole Blood 130 mg/dL (60-115)
[2022-08-25] MEDS: traZODone HCL 100 MG TABLET PO (20:51)
[2022-08-25] MEDS: Atorvastatin Calcium 80 MG TABLET PO (20:54)
[2022-08-25] MEDS: rOPINIRole HCL 0.25 MG TABLET 0.5 MG PO (20:54)
[2022-08-25] MEDS: Melatonin 3 MG TABLET 6 MG PO (20:57)
[2022-08-26] VITALS (7 sets, daily range): BP systolic 126–148; BP diastolic 56–69; PULSE 69–94; RESP 17–20; TEMP 36–36.6; O2SAT 94–96
[2022-08-26] MEDS: 0.9 % Sodium Chloride Flush 3 ML SYRINGE IVFLUSH ×2 (02:45→09:40)
--- NOTE | 2022-08-26 05:57 | PC.NURSE ---
ASSUMED CARE OF PT AT 1900. PT WAS SITTING IN RECLINER BUT WAS ASSISTED TO COMMODE AND THEN BTB. TOLERATED ACTIVITY WELL WITH USE OF WALKER AND STANDBY ASSIST. NO RESP DISTRESS. MONITOR SHOWS ATRIAL PACED RHYTHM. SURGICAL INCISION SITE S/P PACER INSERTION IS D&I. LEFT ARM IN SLING. VITAL SIGNS STABLE. PT SLEPT WELL MOST OF NIGHT.
[2022-08-26] MEDS: Omeprazole 40 MG CAPSULE.DR PO (06:32)
[2022-08-26] MEDS: Acetaminophen 325 MG TABLET 650 MG PO ×2 (06:32→12:37)
[2022-08-26 07:22] LABS: Anion Gap 12 (12-20); Blood Urea Nitrogen 25 mg/dL (9-16); Calcium 8.9 mg/dL (8.4-10.2); Carbon Dioxide 24 mmol/L (22-29); Chloride 103 mmol/L (96-108); Creatinine Clr Calc Pharmacy 59.5; Estimated Glomerular Filt Rate > 60; Glucose Random 132 mg/dL (60-115); Potassium 4.4 mmol/L (3.3-5.1); Sodium 135 mmol/L (135-145)
[2022-08-26 07:49] LABS: Glucose, Whole Blood 125 mg/dL (60-115)
[2022-08-26] MEDS: Ferrous Sulfate 324 MG TABLET.DR PO (09:39)
[2022-08-26] MEDS: Gabapentin 600 MG TABLET PO (09:39)
[2022-08-26] MEDS: oxyBUTYnin chloride ER 5 MG TAB.ER.24 PO (09:39)
[2022-08-26] MEDS: metFORMIN HCl 1,000 MG TABLET 1000 MG PO (09:39)
[2022-08-26] MEDS: Mirabegron 50 MG TAB.ER.24H PO (09:40)
[2022-08-26] MEDS: Empagliflozin 25 MG TABLET PO (09:40)
[2022-08-26] MEDS: Cholecalciferol (Vitamin D3) 25 MCG TABLET PO (09:40)
[2022-08-26] MEDS: Fenofibrate 160 MG TABLET PO (09:40)
[2022-08-26] MEDS: Loratadine 10 MG TABLET PO (09:40)
[2022-08-26] MEDS: Hydroxychloroquine Sulfate 200 MG TABLET PO (09:40)
[2022-08-26] MEDS: Losartan Potassium 25 MG TABLET PO (09:40)
[2022-08-26] MEDS: atenoloL 50 MG TABLET PO (09:40)
[2022-08-26] MEDS: Cyanocobalamin (Vitamin B-12) 1,000 MCG TABLET 1000 MCG PO (09:40)
[2022-08-26] MEDS: Escitalopram Oxalate 10 MG TABLET PO (09:40)
[2022-08-26] MEDS: Thiamine HCL 100 MG TABLET PO (09:40)
[2022-08-26] MEDS: Fluticasone Propionate Nasal 16 GM SPRAY 1 SPRAY NOSTRIL-B (09:41)
[2022-08-26] MEDS: Magnesium Oxide 400 MG TABLET 200 MG PO (09:42)
--- NOTE | 2022-08-26 11:28 | MHC.CM.PN ---
PT MEDICALLY CLEARED FOR D/C TO [facility] FOR STR, IMM 08/26 DELIVERED TO [facility] FOR BLS TRANSPORT.
--- NOTE | 2022-08-26 11:35 | PM.DS ---
DS: Providers Provider Date of Service: 08/26/22 Date of admission: 08/23/22 14:21 Primary care physician: Marla Bray MD Consults: 08/22/22 11:24 Consult to Cardiology [place]ine [place]ing [place] [facility] [place] [facility] Reason for consultation: AFib with 5.8 sec pause Has provider been notified: Yes DS: Diagnosis Discharge Diagnosis (1) Sick sinus syndrome: Status: Acute (2) Atrial flutter with rapid ventricular response: Status: Acute (3) Symptomatic bradycardia: Status: Acute (4) Diarrhea: Status: Acute (5) Physical deconditioning: Status: Acute DS: Summary Hospital Course Hospital Course: Admission note HPI This is a 72-year-old female with pertinent history of insulin-dependent diabetes mellitus, essential hypertension, paroxysmal atrial fibrillation on Xarelto, mood disorder, history of CVA presents to the emergency department for evaluation of palpitations and dizziness.? Patient states that over the last 2 days she has been having dizziness, when she 1st stands or tries to move around.? On the day of presentation, patient also complaining of palpitations.? Patient was admitted last month for AFib with RVR.? Patient states that she is compliant with medications.? She has been having 2 through 3 episodes of loose stools for the last 1 week.? She denies fever, chills, chest discomfort, shortness of breath, changes in urinary habits In the emergency department, heart rate in the range of 120s-130s Hospital course The patient was admitted for evaluation of palpitations and dizziness in the backdrop of 48 hours of diarrhea.? Rhythm demonstrated rapid atrial flutter with some response to volume repletion.? placed on Tele and noted to have 5.2nd pause followed by isolated sinus beat then returning to a flutter.? Seen by Cardiology who recommends dual chamber pacer secondary to sinoatrial dysfunction. placed by dr Rose with good response as Atenolol was restarted and patient kept in paced rhythm with no recurrence episodes of dizziness or palpitations. To be followed by cardiology as outpatient in 6 weeks. Continue home medications To follow with dr Sales from cardiology as outpatient as scheduled in 6 weeks. Time Spent with Patient Time attestation: Total time managing care of this patient today ____ minutes. Discharge coordination time: Greater than 30 minutes Quality: Safe Use of Opioids Does Pt have an Active Cancer Diagnosis on the Problem List?: No Quality: Stroke Does the patient have a stroke diagnosis?: No Physical Exam Vital Signs: Vital Signs: Last Vital Signs Temp 96.8 F 08/26/22 11:20 Pulse 69 08/26/22 11:20 Resp 17 08/26/22 11:20 BP 147/65 H 08/26/22 11:20 Pulse Ox 95 08/26/22 11:20 O2 Del Method Room Air 08/26/22 11:20 O2 Flow Rate 2 08/23/22 16:58 BMI result Body Mass Index 37.2 Const: Other: Constitutional : Awake, interactive, not in distress Neck : Normal inspection, Supple Cardiovascular : regular rhythm, no JVP, no lower extremity edema Respiratory : good bilateral air entry, no crackles, wheezes or rhonchi Gastrointestinal: soft, lax, Normal bowel sounds, Non tender Skin : Warm, Dry, PPM surgical site clean with no erythema Neurological : Alert & oriented x3, No focal deficit DS: Data Data Completed and Pending Labs on day of discharge: Laboratory Results - last 24 hr 08/25/22 08/25/22 08/25/22 11:45 16:51 20:35 Sodium Potassium Chloride Carbon Dioxide Anion Gap BUN Creatinine Estim Creat Clear Calc Estimated GFR POC Glucose 153 H 169 H 130 H Random Glucose Calcium 08/26/22 08/26/22 06:24 07:44 Sodium 135 Potassium 4.4 Chloride 103 Carbon Dioxide 24 Anion Gap 12 BUN 25 H Creatinine 0.91 Estim Creat Clear Calc 59.5 Estimated GFR > 60 POC Glucose 125 H Random Glucose 132 H Calcium 8.9 Imaging Chest x-ray: Radiologist's impression: ITS Impressions Guidance Fluoroscopy 08/23/22 16:00 FINDINGS AND IMPRESSION: This report is given to document use of intraoperative fluoroscopic imaging equipment during cardiac pacemaker placement. There is a left pectoral region cardiac pulse generator with attached transvenous leads that extend to the right atrium and apex of right ventricle. Chest X-Ray 08/23/22 16:42 IMPRESSION: Development of bilateral regions of disease since previous study of July 18, 2022 which may be related to edema. Chest X-Ray 08/24/22 07:30 FINDINGS/IMPRESSION: The study is limited by portable technique and low lung volumes. There is been improvement in previously described bilateral interstitial and airspace disease compared with one day prior, with no significant remaining infiltrate appreciated. No effusion or pneumothorax is seen. The cardiac silhouette is suboptimally evaluated. The tips of left subclavian pulse generator device leads project over the right atrium and right ventricle. The aorta is mildly atherosclerotic. There are mild degenerative changes of the spine and shoulders. Discharge Plan Discharge Anticipated Discharge Date/Time: 08/26/22 11:26 Patient Disposition: Xfer SNF Discharge Diagnosis: Sick sinus syndrome Pacemaker placement Referrals: [facility] [Outside] - 1 Day (SHORT TERM REHAB) Marla Henderson MD [Primary Care Provider] - 1 Week Discharge Medications: Continued fenofibrate 160 mg tablet 160 mg PO DAILY 90 Days Qty: 90 3RF loratadine 10 mg tablet 10 mg PO DAILY 90 Days Qty: 90 0RF thiamine HCl (vitamin B1) 100 mg tablet 100 mg PO DAILY 90 Days Qty: 90 1RF atenolol 50 mg tablet 50 mg PO DAILY 90 Days Qty: 90 3RF hydroxychloroquine [Plaquenil] 200 mg tablet 200 mg PO BID Qty: 180 3RF furosemide 40 mg tablet 40 mg PO DAILY 90 Days Qty: 90 0RF ferrous sulfate 325 mg (65 mg iron) tablet 325 mg PO DAILY 90 Days Qty: 90 1RF fesoterodine 8 mg tablet extended release 24 hr 8 mg PO DAILY Qty: 30 6RF fluticasone propionate 50 mcg/actuation spray,suspension 1 spray intranasal DAILY 90 Days Qty: 16 3RF Rx Instructions: administer into each nostril Myrbetriq 50 mg tablet extended release 24 hr 50 mg PO DAILY 90 Days Qty: 90 1RF (DME) blood-glucose meter [OneTouch Verio Meter] [facility] [place] Rx Instructions .Route Qty: 1 0RF Rx Instructions: As directed (DME) OneTouch Verio test strips Strip See Rx Instructions .Route Qty: 100 5RF Rx Instructions: Use 1 test strip twice a day (DME) lancets [OneTouch UltraSoft Lancets] [facility] [place] Rx Instructions .Route Qty: 100 3RF Rx Instructions: USe 1 lancet once a day cholecalciferol (vitamin D3) 50 mcg (2,000 unit) tablet 2,000 unit PO DAILY 90 Days Qty: 90 3RF cyanocobalamin (vitamin B-12) 1,000 mcg tablet 1,000 mcg PO DAILY 90 Days Qty: 90 3RF gabapentin 600 mg tablet 600 mg PO TID 90 Days Qty: 270 1RF docusate sodium [DOK] 100 mg capsule 100 mg PO BID PRN (Reason: constipation) 90 Days Qty: 180 2RF Jardiance 25 mg tablet 25 mg PO DAILY 90 Days Qty: 90 3RF magnesium 200 mg tablet 200 mg PO DAILY 90 Days Qty: 90 5RF escitalopram oxalate [Lexapro] 10 mg tablet 10 mg PO DAILY 90 Days Qty: 90 1RF trazodone 100 mg tablet 100 mg PO BEDTIME 90 Days Qty: 90 1RF rosuvastatin [Crestor] 40 mg tablet 40 mg PO BEDTIME 90 Days Qty: 90 1RF metformin 1,000 mg tablet 1,000 mg PO BIDWM 90 Days Qty: 180 1RF losartan 25 mg tablet 25 mg PO DAILY 90 Days Qty: 90 0RF omeprazole 40 mg capsule,delayed release(DR/EC) 40 mg PO DAILY@0630 90 Days Qty: 90 1RF oxycodone 5 mg tablet 5 mg PO Q6H PRN (Reason: pain) 30 Days Qty: 120 0RF ketoconazole 2 % cream 1 appl topical BID 30 Days Qty: 30 0RF ropinirole 0.25 mg tablet 2 tab PO BEDTIME estradiol 0.01 % (0.1 mg/gram) cream 1 appl vaginal 3XW acetaminophen 325 mg Tablet 650 mg PO Q6H PRN (Reason: Pain (Scale Score 1-3)) sennosides [senna] 8.6 mg tablet 17.2 mg PO BEDTIME PRN (Reason: Constipation) baclofen 10 mg tablet 5 mg PO TID PRN (Reason: muscle spasm) Xarelto 20 mg tablet 20 mg PO DAILY@1700 insulin degludec [Tresiba FlexTouch U-100] 100 unit/mL (3 mL) insulin pen 0 - 10 unit subcut BEDTIME Trulicity 3 mg/0.5 mL pen injector 3 mg subcut TH@0900 riboflavin (vitamin B2) 400 mg tablet 400 mg PO DAILY Qty: 30 0RF Discharge Orders: Discharge Order (Routine); Ordered 08/26/22 Ordered By: Bebe Larkin Diet: Low salt diet Activity on Discharge: As tolerated Stand Alone Forms: Patient Portal Discharge page Care Plan Goals: Read below Health Concerns: Read below Plan of Treatment: Read below Assessment: You were admitted for symptomatic slow heart rate with dizziness and weakness. evaluated by public health worker who believed the need to place a permenant pacemaker which was done by dr Rose with good response. treated for gastroenteritis with supportive measures. Continue home medications To follow with dr Sales from cardiology as outpatient as scheduled
[2022-08-26 12:07] LABS: Glucose, Whole Blood 122 mg/dL (60-115)
[2022-08-26] MEDS: Sennosides 8.6 MG TABLET 17.2 MG PO (12:36)
[2022-08-26] MEDS: Throat Lozenge, Medicated LOZENGE 1 LOZENGE MUCOUS MEM (12:36)
[2022-08-26 14:33] LABS: COVID-19 Test Negative (Negative); IDNOW Serial# 08D9AD1C
== END 2022-08-26 14:50 | disposition skilled nursing facility (03) | DRG 243 ==
LOC: HO.ED 08-21 00:56 → HO.EDOVER 08-21 04:36 → HO.IMC 08-21 13:00
PROVIDERS: Hospitalist; Internal Medicine Cardiovascular Disease; Admitting Provider Student in an Organized Health Care Education/Training Program; Emergency Provider Internal Medicine; PCP Internal Medicine; Visit Provider Student in an Organized Health Care Education/Training Program
PROC: 02H63JZ Insertion of Pacemaker Lead into Right Atrium, Percutaneous Approach (ICD-10-PCS; principal; 2022-08-23 13:30)
DX: I49.5 Sick sinus syndrome (principal); F33.0 Major depressive disorder, recurrent, mild; I69.351 Hemiplegia and hemiparesis following cerebral infarction affecting right dominant side; I69.322 Dysarthria following cerebral infarction; I69.393 Ataxia following cerebral infarction; E11.42 Type 2 diabetes mellitus with diabetic polyneuropathy; I48.0 Paroxysmal atrial fibrillation; E78.2 Mixed hyperlipidemia; E11.65 Type 2 diabetes mellitus with hyperglycemia; I25.119 Atherosclerotic heart disease of native coronary artery with unspecified angina pectoris; K52.9 Noninfective gastroenteritis and colitis, unspecified; Z95.5 Presence of coronary angioplasty implant and graft; Z20.822 Contact with and (suspected) exposure to COVID-19; Z88.1 Allergy status to other antibiotic agents; Z88.2 Allergy status to sulfonamides; Z79.4 Long term (current) use of insulin; Z79.01 Long term (current) use of anticoagulants; Z79.51 Long term (current) use of inhaled steroids; Z79.84 Long term (current) use of oral hypoglycemic drugs; Z79.899 Other long term (current) drug therapy
CPT/HCPCS: 36415; 71045; 80048; 80053; 81001; 82947; 84443; 84484; 85025; 85027; 87507; 87635; 93005; 94660; 97162; 99222; 99285; C1778; C1785; C1892; C1898; J0690; J1940; J2250; J2405; J3010; J3371; Q9965; Q9967

== ENCOUNTER → 2022-09-09 12:46 | Outpatient (BNVA) | payer MEDICARE, SELFPAY | PROVIDERS: PCP Internal Medicine; Referring Provider Internal Medicine; Visit Provider Internal Medicine ==

== ENCOUNTER 2022-09-25 16:20 | Outpatient (REF) | payer MEDICARE, SELFPAY ==
--- NOTE | ~2022-09-25 | US_ITS ---
EXAMINATION: US VENOUS ULTRASOUND WITH DOPPLER LOWER EXTREMITY, RIGHT CLINICAL INFORMATION: Right leg pain COMPARISON: July 31, 2020 TECHNIQUE: Ultrasound of the deep veins is performed from the hip to the calf with compression sonography and color and pulse Doppler assessment. Spectral analysis with color-flow imaging is performed. FINDINGS: There is normal venous compression and respiratory variation and augmented flow. The visualized common femoral vein, superficial femoral vein, profunda femoral vein, popliteal vein, and the trifurcation region shows no evidence of deep venous thrombosis. No popliteal artery aneurysm. No popliteal fossa cyst. US/US venous duplex LE RT IMPRESSION: No acute DVT demonstrated in the right lower extremity.
== END 2022-09-25 16:21 | disposition home or self-care (01) ==
LOC: HO.US 16:20
PROVIDERS: PCP Internal Medicine; Visit Provider Physician Assistant
DX: M79.604 Pain in right leg (principal); R60.0 Localized edema
CPT/HCPCS: 93971

== ENCOUNTER 2022-10-10 14:23 | Outpatient (AMB) | payer MEDICARE, SELFPAY ==
--- NOTE | 2022-10-10 14:24 | MHC.OFFVIS ---
Intake Intake Visit Reasons: 4m/PVR Bottom Cager Required: No Allergies morphine [Morphine] Allergy (Severe, Verified 12/11/22 09:15) ITCHING, hives cefdinir Allergy (Intermediate, Verified 12/11/22 09:15) hives sulfamethoxazole Allergy (Intermediate, Verified 12/11/22 09:15) RASH trimethoprim Allergy (Intermediate, Verified 12/11/22 09:15) RASH duloxetine Adverse Reaction (Severe, Verified 12/11/22 09:15) altered behavior betina Adverse Reaction (Mild, Verified 12/11/22 09:15) RUNNY NOSE mustard Adverse Reaction (Mild, Verified 12/11/22 09:15) RUNNY NOSE potato [POTATO] Adverse Reaction (Mild, Verified 12/11/22 09:15) ITCHY NOSE soybean Adverse Reaction (Mild, Verified 12/11/22 09:15) RUNNY NOSE cheese Adverse Reaction (Intermediate, Uncoded 12/11/22 09:15) head congestion HPI HPI Comments History of Present Illness Details Missy is a 72-year-old female who presents to the office for OAB symptoms follow-up. The patient was last in the office on 06/03/22 and we made changed with her medication. I asked her to stop Toviaz 8 mg in the morning and complete Myrbetriq 50 mg. 10/10/22-- She is currently prescribed Myrbetriq 50 mg and Estrace vaginal cream. She was recently hospitalized and had pacemaker placed . The patient also complaint having edema in lower extremities and states that she has visiting nurse assistance and is getting home PT. The patient is getting up more at night time which I discussed is expected because of lower extremity edema when she becomes supine there tends to be redistribution of fluids and her kidneys are working during the night. She states intermittent episodes of urinary leakage. She wears pads at this time. Plan: Will continue monitoring. Continue Myrbetriq 50 mg. Estrace vaginal cream was reordered. Discussed to call if having any UTI symptoms. Tele-health follow-up in 6 months. [facility] Medical History (HFpEF) heart failure with preserved ejection fraction Acute upper GI bleed Anemia Anemia Atherosclerotic cardiovascular disease Chronic heart failure with preserved ejection fraction (HFpEF) COVID-19 CVA (cerebral vascular accident) Diabetes mellitus Diabetes type 2, uncontrolled Diabetic neuropathy Diabetic polyneuropathy Dizziness Dyslipidemia Essential hypertension [place] Hand pain Head injury Headache Hospital discharge follow-up Hyperlipidemia LDL goal <70 Iron deficiency anemia Ischemic stroke Left hand pain Left hip pain Left knee pain Left shoulder pain Lumbar degenerative disc disease Mild recurrent major depression Obesity due to excess calories Other and unspecified hyperlipidemia Paroxysmal atrial fibrillation PONV (postoperative nausea and vomiting) Positive occult stool blood test Post-dural puncture headache Proteinuria Pulmonary hypertension Pure hypercholesterolemia Thiamine deficiency Thrombocytosis Thrombus 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 Urge urinary incontinence Surgical History H/O colonoscopy History of Mohs micrographic surgery for skin cancer History of partial hysterectomy Hx of cardiac cath Hx of cervical spine surgery S/P cardiac pacemaker procedure S/P insertion of spinal cord stimulator Family History Father Rectal cancer Hypertension Arthritis of knee CVD (cardiovascular disease) Mother Hypertension CVD (cardiovascular disease) Myocardial infarction Diabetes Social History Household Members: Spouse Housing: Apartment Are you a primary hospice home care coordinator to a significant other at home: No Alcohol intake: never Patient Tobacco Use Status: Former Tobacco user Quit Date: 1993 Tobacco use type: Cigarette e-Cigarette/Vaping Use: Never Used Second Hand Smoke Exposure: No Advance Directives Date on File: 07/17/20 service: No Current occupational status: retired Current occupation: Lt handed Cognitive needs: Yes (scodor/walker) Hearing needs: No Vision needs: Yes (glasses) Review of Systems Const All systems reviewed & are unremarkable except as noted in HPI and below Reports no additional complaints Eyes Reports no additional complaints ENT Reports no additional complaints Card Denies dyspnea Resp Denies cough and Denies dyspnea GI Reports no additional complaints Reports no additional complaints Musc Reports no additional complaints Skin/Breast Denies rash and Denies unusual bruising Neuro Reports no additional complaints Psych Reports no additional complaints Endo Reports no additional complaints Jt/Lymph Reports no additional complaints Aller/Immun Reports no additional complaints Results AMB Urinalysis, Automated UA Leukoctes Pam/uL Last Edit by Bisi Ott CMA on 10/10/22 14:55 UA Nitrite Last Edit by Bisi Ott CMA on 10/10/22 14:55 UA Urobilinogen 0.2 mg/dL Last Edit by Bisi Ott, TYLOR on 10/10/22 14:55 UA Protein 100 mg/dL Last Edit by Bisi Ott, TYLOR on 10/10/22 14:55 UA pH 6.0 Last Edit by Bisi Ott, TYLOR on 10/10/22 14:55 UA Blood Lj/uL Last Edit by Bisi Ott, TYLOR on 10/10/22 14:55 UA Specific [place] 1.015 Last Edit by Bisi Ott, TYLOR on 10/10/22 14:55 UA Ketone Last Edit by Bisi Ott, TYLOR on 10/10/22 14:55 UA Bilirubin mg/dL Last Edit by Bisi Ott, TYLOR on 10/10/22 14:55 UA Glucose 1000 mg/dL Last Edit by Bisi Ott, TYLOR on 10/10/22 14:55 Results Reviewed Results Reviewed: Laboratory Last Values Urine pH (Auto) 6.0 10/10/22 14:54 Specific [place] (Auto) 1.015 10/10/22 14:54 Urine Protein (Auto) 100 mg/dL 10/10/22 14:54 Glucose (UA)(Auto) 1000 mg/dL 10/10/22 14:54 Urine Urobilinogen (Auto) 0.2 mg/dL 10/10/22 14:54 Assessment & Plan Assessment & Plan (1) OAB (overactive bladder): Code(s): N32.81 - Overactive bladder (2) Urge incontinence of urine: Code(s): N39.41 - Urge incontinence Plan Will continue monitoring. Continue Myrbetriq 50 mg. Estrace vaginal cream was reordered. Discussed to call if having any UTI symptoms. Tele-health follow-up in 6 months. Orders: Orders AMB Urinalysis Automated 10/10/22 N32.81 - Overactive bladder Patient Instructions: The patient had an opportunity to ask questions regarding treatment plan. All questions were answered. Imaging, Laboratory studies and physical exam results were discussed and reviewed in detail. No major barriers to understanding were identified. The patient expressed understanding and agreement with the above treatment plan. The patient is aware they should contact our office by phone for worsening of their current condition or the appearance of new symptoms. Compliance is encouraged with any medications and followup testing that is ordered. It is a privilege to be allowed the opportunity to participate in the urologic care of your patient. If you have any questions or concerns regarding treatment for the above conditions please do not hesitate to contact me. The office telephone contact is [phone]. This note is constructed in part using voice recognition software. While every effort has been made to ensure accuracy survey methodologist errors may have been included. Yours sincerely, Victoriano Ngo MD Coding Level of Care Code Est Pt Level 3 (59744) Diagnoses OAB (overactive bladder) N32.81 Urge incontinence of urine N39.41
== END 2022-10-10 15:16 | disposition home or self-care (01) ==
LOC: HO.HUSH 14:23
PROVIDERS: PCP Nurse Practitioner Family; Visit Provider Urology
DX: N32.81 Overactive bladder (principal); N39.41 Urge incontinence
CPT/HCPCS: 99213

== ENCOUNTER → 2022-10-10 14:23 | Outpatient (BNVA) | payer MEDICARE, SELFPAY | PROVIDERS: PCP Nurse Practitioner Family; Visit Provider Urology | DX: N32.81 Overactive bladder (principal); N39.41 Urge incontinence | CPT/HCPCS: 99212 ==

== ENCOUNTER 2022-10-14 14:42 | Emergency (ER) | payer MEDICARE, SELFPAY ==
--- NOTE | ~2022-10-14 | XR_ITS ---
EXAMINATION: XR CHEST CLINICAL INFORMATION: Productive cough. Fever. COMPARISON: Chest x-ray 08/24/2022 TECHNIQUE: 2 views of the chest were obtained. FINDINGS: No change position of pacemaker leads in the right atrium and right ventricle. The heart size is normal. The cardiac and mediastinal contours are normal. Vascular calcifications of aorta. No acute change. No pulmonary vascular congestion. Lungs are normally aerated. No pleural effusion and no pneumothorax. Neural stimulator probe in the thoracic spinal canal Multilevel degenerative spondylosis of the spine. XR/XR chest 2V IMPRESSION: No acute abnormality of the chest.
--- NOTE | ~2022-10-14 | CT_ITS ---
EXAMINATION: CT ABDOMEN AND PELVIS WITH CONTRAST CLINICAL INFORMATION: Left lower quadrant pain COMPARISON: Renal ultrasound May [address] of the abdomen and pelvis July 2018 TECHNIQUE: Multidetector volumetric images were obtained from the superior aspect of the liver through the pubic symphysis following administration 85 mL of Omnipaque 350 intravenous contrast. Sagittal and coronal reformatted images were obtained on the technologist's workstation. Oral contrast: Yes This CT examination was performed using dose optimization techniques as appropriate, variously including the following: *Automated exposure control *Adjustment of mA and/or kV according to patient size (this includes techniques or standardized protocols for targeted exams where dose is matched to indication/reason for exam; i.e. extremities or head) *Use of iterative reconstruction technique DLP: 951 mGy-cm FINDINGS: LUNG BASES: The visualized lung bases are unremarkable. LIVER, GALLBLADDER, AND BILIARY TREE: The liver is normal in size, shape, and attenuation. No focal hepatic lesion or biliary ductal dilatation is present. The gallbladder has been removed. PANCREAS: Unremarkable. SPLEEN: Unremarkable. ADRENAL GLANDS: Unremarkable. KIDNEYS AND URETERS: The kidneys are normal in size, shape, and attenuation. No hydronephrosis, hydroureter, or calculi seen. No perinephric stranding. BLADDER: Unremarkable. GASTROINTESTINAL TRACT: Diverticulosis of the colon. There is mild wall thickening of the left colon and sigmoid colon. Long segment distribution favors colitis over diverticulitis. No evidence of obstruction, perforation or abscess. Duodenal diverticulum adjacent to the head of the pancreas. Small and large bowel is otherwise normal. The appendix is normal. ABDOMINAL WALL: No significant hernia is appreciated. LYMPH NODES: Normal. VASCULAR: Atherosclerotic disease. No aneurysm. PELVIC VISCERA: Unremarkable. OSSEOUS STRUCTURES: Severe multilevel degenerative changes of the spine. The lead in the lower thoracic spinal canal. CT/CT abdomen pelvis w IV con IMPRESSION: Diverticulosis of the colon. Long segment wall thickening of the left colon and sigmoid colon. Long segment distribution favors colitis over diverticulitis. Fleischner guidelines were followed.
--- NOTE | 2022-10-14 14:45 | ECG_ITS ---
Test Reason : CP Blood Pressure : / mmHG Vent. Rate : 139 BPM Atrial Rate : 000 BPM P-R Int : 000 ms QRS Dur : 102 ms QT Int : 328 ms P-R-T Axes : 000 202 020 degrees QTc Int : 499 ms Atrial fibrillation with rapid ventricular response Right superior axis deviation Inferior infarct (cited on or before 18-JUL-2022) Abnormal ECG When compared with ECG of 24-AUG-2022 23:39, Atrial fibrillation has replaced Sinus rhythm Vent. rate has increased BY 68 BPM T wave inversion no longer evident in Anterior leads Referred By: Generic ED Physician Electronically Signed By:Reginald Amato
--- NOTE | 2022-10-14 15:31 | ED.GENADULT ---
HPI - General Adult General Chief complaint: Arrhythmia/Palpitations Stated complaint: abd ekg Time Seen by Provider: 10/14/22 15:30 Source: patient and RN notes reviewed Mode of arrival: ambulatory Limitations: no limitations History of Present Illness HPI narrative: Patient is a 72-year-old female with history of CAD, paroxysmal afib, HTN, HLD, chronic HF with preserved ejection fraction, anemia, T2DM presenting to the ED from Dr. Sweet's office in afib with RVR. Patient complains of feeling fatigued for the past 2 weeks. Reports diarrhea since Friday and left lower quadrant abdominal pain. Has been eating and drinking normally. Reports cough productive of clear sputum for the past two days as well as nasal congestion. Denies fevers. Denies chest pain, some dyspnea on exertion. Denies dizziness, lightheadedness or syncope. MD complaint: rapid heart rate, diarrhea Onset (ago): day(s) Location: abdomen Severity: moderate Quality: dull Pain Consistency: intermittent Associated symptoms: cough Treatments prior to arrival: none Related Data Home Medications Medication Instructions Recorded Confirmed estradiol 0.01% (0.1 mg/gram) 1 appl vaginal 3XW 11/13/21 10/14/22 vaginal cream ropinirole 0.25 mg tablet 2 tab PO BEDTIME 11/13/21 10/14/22 acetaminophen 325 mg tablet 650 mg PO Q6H PRN Pain (Scale 07/18/22 10/14/22 Score 1-3) baclofen 10 mg tablet 5 mg PO TID PRN muscle spasm 07/18/22 10/14/22 dulaglutide 3 mg/0.5 mL 3 mg subcut TH@0900 07/18/22 10/14/22 subcutaneous pen injector (Trulicity) insulin degludec 100 unit/mL (3 0 - 10 unit subcut BEDTIME 07/18/22 10/14/22 mL) subcutaneous pen (Tresiba FlexTouch U-100 insulin) rivaroxaban 20 mg tablet (Xarelto) 20 mg PO DAILY@1700 07/18/22 10/14/22 sennosides 8.6 mg tablet (senna) 17.2 mg PO BEDTIME PRN Constipation 07/18/22 10/14/22 Previous Rx's Medication Instructions Recorded riboflavin (vitamin B2) 400 mg 400 mg PO DAILY #30 tabs 06/22/21 tablet fenofibrate 160 mg tablet 160 mg PO DAILY 90 days #90 tabs 09/28/21 loratadine 10 mg tablet 10 mg PO DAILY 90 days #90 tabs 11/19/21 thiamine HCl (vitamin B1) 100 mg 100 mg PO DAILY 90 days #90 tabs 02/03/22 tablet atenolol 50 mg tablet 50 mg PO DAILY 90 days #90 tabs 03/22/22 hydroxychloroquine 200 mg tablet 200 mg PO BID #180 tabs 04/03/22 (Plaquenil) ferrous sulfate 325 mg (65 mg 325 mg PO DAILY 90 days #90 tabs 05/02/22 iron) tablet fluticasone propionate 50 1 spray intranasal DAILY 90 days 05/21/22 mcg/actuation nasal #16 grams spray,suspension mirabegron 50 mg tablet,extended 50 mg PO DAILY 90 days #90 tabs 06/04/22 release 24 hr (Myrbetriq) blood sugar diagnostic (OneTouch #100 ea 06/12/22 Verio test strips) blood-glucose meter (OneTouch #1 ea 06/12/22 Verio Meter) lancets (OneTouch UltraSoft #100 ea 06/12/22 Lancets) cholecalciferol (vitamin D3) 50 2,000 unit PO DAILY 90 days #90 06/19/22 mcg (2,000 unit) tablet tabs cyanocobalamin (vitamin B-12) 1,000 mcg PO DAILY 90 days #90 tabs 07/11/22 1,000 mcg tablet gabapentin 600 mg tablet 600 mg PO TID 90 days #270 tabs 07/11/22 docusate sodium 100 mg capsule 100 mg PO BID PRN constipation 90 07/19/22 (DOK) days #180 caps empagliflozin 25 mg tablet 25 mg PO DAILY 90 days #90 tabs 07/19/22 (Jardiance) magnesium 200 mg tablet 200 mg PO DAILY 90 days #90 tabs 07/19/22 metformin 1,000 mg tablet 1,000 mg PO BIDWM 90 days #180 tabs 07/19/22 omeprazole 40 mg capsule,delayed 40 mg PO DAILY@0630 90 days #90 07/19/22 release caps rosuvastatin 40 mg tablet (Crestor) 40 mg PO BEDTIME 90 days #90 tabs 07/19/22 trazodone 100 mg tablet 100 mg PO BEDTIME 90 days #90 tabs 07/19/22 ketoconazole 2 % topical cream 1 appl topical BID 30 days #30 08/19/22 grams oxycodone 5 mg tablet 5 mg PO Q6H PRN pain 30 days #20 09/27/22 tabs escitalopram oxalate 10 mg tablet 10 mg PO DAILY 90 days #90 tabs 10/04/22 (Lexapro) losartan 25 mg tablet 25 mg PO DAILY 90 days #30 tabs 10/04/22 ciprofloxacin HCl 500 mg tablet 500 mg PO Q12H 7 days #14 tabs 10/14/22 (Cipro) metronidazole 500 mg tablet 500 mg PO Q12H 7 days #14 tabs 10/14/22 Allergies Allergy/AdvReac Type Severity Reaction Status Date / Time morphine [Morphine] Allergy Severe ITCHING, Verified 10/14/22 14:17 hives cefdinir Allergy Intermediate hives Verified 10/14/22 14:17 sulfamethoxazole Allergy Intermediate RASH Verified 10/14/22 14:17 trimethoprim Allergy Intermediate RASH Verified 10/14/22 14:17 duloxetine AdvReac Severe altered Verified 10/14/22 14:17 behavior betina AdvReac Mild RUNNY NOSE Verified 10/14/22 14:17 mustard AdvReac Mild RUNNY NOSE Verified 10/14/22 14:17 potato [POTATO] AdvReac Mild ITCHY NOSE Verified 10/14/22 14:17 soybean AdvReac Mild RUNNY NOSE Verified 10/14/22 14:17 cheese AdvReac Intermediate head Uncoded 10/14/22 14:17 congestion Review of Systems Review of Systems: As per HPI. Yes all other systems are reviewed and are negative [facility] Past Medical History Medical History Acute upper GI bleed Anemia Anemia Atherosclerotic cardiovascular disease Chronic heart failure with preserved ejection fraction (HFpEF) COVID-19 CVA (cerebral vascular accident) Diabetes mellitus Diabetes type 2, uncontrolled Diabetic neuropathy Diabetic polyneuropathy Dizziness Dyslipidemia Essential hypertension Falls Hand pain Head injury Headache Hospital discharge follow-up Hyperlipidemia LDL goal <70 Iron deficiency anemia Ischemic stroke Left hand pain Left hip pain Left knee pain Left shoulder pain Lumbar degenerative disc disease Mild recurrent major depression Obesity due to excess calories Other and unspecified hyperlipidemia Paroxysmal atrial fibrillation PONV (postoperative nausea and vomiting) Positive occult stool blood test Post-dural puncture headache Proteinuria Pulmonary hypertension Pure hypercholesterolemia Thiamine deficiency Thrombocytosis Thrombus 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 Urge urinary incontinence Surgical History H/O colonoscopy History of Mohs micrographic surgery for skin cancer History of partial hysterectomy Hx of cardiac cath Hx of cervical spine surgery S/P cardiac pacemaker procedure S/P insertion of spinal cord stimulator Family History Family History Father Rectal cancer Hypertension Arthritis of knee CVD (cardiovascular disease) Mother Hypertension CVD (cardiovascular disease) Myocardial infarction Diabetes Social History Social History Household Members: Spouse [facility]: [facility] Are you a primary vp care management to a significant other at home: No Do you presently have visiting nurse or other home services: No Alcohol intake: never Patient Tobacco Use Status: Former Tobacco user Quit Date: 1993 Tobacco use type: Cigarette Smoked in Last 30 Days: No e-Cigarette/Vaping Use: Never Used Second Hand Smoke Exposure: No Use of substances other than those prescribed or required for medical reasons: No Advance Directives: Yes Advance Directives on File: Yes Advance Directives Date on File: 07/17/20 service: No Current occupational status: retired Current occupation: Lt handed Cognitive needs: Yes (scodor/walker) Hearing needs: No Vision needs: Yes (glasses) Physical Exam ED Vital Signs: Vital Signs - 24 hr 10/14/22 15:50 10/14/22 16:00 10/14/22 17:38 Temperature 98.9 F 101 F H Pulse Rate 122 H 77 Respiratory Rate 19 20 Blood Pressure 117/94 H 123/75 Pulse Oximetry 95 95 Oxygen Delivery Method Room Air Room Air 10/14/22 18:33 10/14/22 22:06 10/14/22 23:54 Temperature 97.3 F 98.2 F 98.0 F Pulse Rate 77 70 73 Respiratory Rate 17 23 H 17 Blood Pressure 125/71 142/50 H 198/86 H Pulse Oximetry 94 94 99 Oxygen Delivery Method Room Air Room Air Room Air BMI result Body Mass Index 38.1 Course Course Course Narrative: 16:07 IV levaquin and normal saline ordered for suspected sepsis. 17:37 Heart rate improved, BP stable, labs unchanged from baseline, no leukocytosis, lactate WNL, awaiting results of imaging. No indication for 30mL/kg crystalloid administration 18:37 No acute abnormality on CXR. Patient now is NSR, ordered repeat EKG. Awaiting abd CT. 19:04 Sign out to RIOS Hernández pending results of CT. Reevaluation(s) Reevaluation #1: Patient's CT scan shows colitis. On the monitor rate control heart rate 70. Patient presently not in RVR. Negative for white blood cell count elevation. Patient asymptomatic. Patient will be discharged with antibiotics. Time: 23:16 Medications Administered Discontinued Medications Generic Name Dose Route Start Last Admin Trade Name Freq PRN Reason Stop Dose Admin Acetaminophen 650 mg 10/14/22 18:19 10/14/22 18:32 Acetaminophen 325 Mg Tablet PO 10/14/22 18:20 650 mg ONCE ONE Administration Levofloxacin 750 mg in 150 mls @ 100 mls/hr 10/14/22 16:03 10/14/22 18:17 Levaquin IV 10/14/22 17:32 Infused ONCE ONE Infusion Sodium Chloride 500 mls @ 500 mls/hr 10/14/22 16:15 10/14/22 17:35 Ns IV 10/14/22 17:14 Infused .Q1H SHANON Infusion Iohexol 100 ml 10/14/22 18:24 10/14/22 18:25 Iohexol 350 Mg/Ml 100 Ml Infus..Btl IV 10/14/22 18:25 85 ml ONCE ONE Administration Medical Decision Making Medical Decision Making MDM Narrative: Patient is a 72-year-old female with history of CAD, paroxysmal afib, HTN, HLD, chronic HF with preserved ejection fraction, anemia, T2DM presenting to the ED from Dr. Sweet's office in afib with RVR as well as diarrhea and LLQ abd pain since Friday. On exam patient is awake, A+Ox3, in afib with RVR with rate in 120's, stable BP, febrile to 101 rectally, LS CTA throughout, abdomen soft, TTP LLQ. Feel afib with RVR is secondary to infectious etiology, suspicious for diverticulitis, UTI/pyelo, pneumonia. Less likely appendicitis, constipation. Plan: EKG, labs, UA, antibiotics, IV fluids, CT abdomen/pelvis, CXR Please refer to course for remaining clinical decision making. Differential Diagnosis As above. Admission/Observation Consideration of admission/observation: Escalation of care including admission/observation considered Lab Data 10/14/22 16:14 10/14/22 16:14 Labs: Lab Results 10/14/22 10/14/22 10/14/22 Range/Units 16:14 16:14 16:14 WBC 8.4 (4.8-10.8) X10*3/uL RBC 4.25 (4.20-5.50) X10*6/uL Hgb 11.4 L (12.0-16.0) g/dl Hct 36.2 L (37.0-47.0) % MCV 85.2 (80.0-98.0) fL MCH 26.8 L (27.0-33.0) pg MCHC 31.5 (31.0-35.0) g/dl RDW 17.1 H (11.0-16.0) % Plt Count 364 D (160-400) X10*3/uL MPV 8.7 L (9.4-12.3) fL Immature Gran % (Auto) 0.2 (0.0-0.4) % Neut % (Auto) 71.5 (45-73) % Lymph % (Auto) 12.9 L (20-40) % Kimball % (Auto) 9.2 (2-11) % Eos % (Auto) 5.1 H (0-4) % Baso % (Auto) 1.1 (0-2) % Lymph # (Auto) 1.1 L (1.2-4.9) X10*3/uL Kimball # (Auto) 0.8 (0.1-1.2) X10*3/uL Eos # (Auto) 0.4 (0.0-0.4) X10*3/uL Baso # (Auto) 0.1 (0.0-0.2) X10*3/uL Abs Immat Gran (auto) 0.02 (0.00-0.03) X10*3/uL Absolute Neuts (auto) 6.0 (2.0-8.3) x10*3/uL Absolute Nucleated RBC 0.000 (0.0-0.012) X10*3/uL Nucleated RBC % (auto) 0.0 (0.0-0.2) /100WBC PT 11.9 (10.0-13.1) SEC INR 1.0 (0.9-1.1) Sodium 138 (135-145) mmol/L Potassium 5.0 (3.3-5.1) mmol/L Chloride 107 (96-108) mmol/L Carbon Dioxide 21 L (22-29) mmol/L Anion Gap 15 (12-20) BUN 16 (9-16) mg/dL Creatinine 0.79 (0.5-1.4) mg/dL Estim Creat Clear Calc 69.4 Estimated GFR > 60 Random Glucose 155 H (60-115) mg/dL Lactic Acid (0.5-2.0) mmol/L Calcium 9.1 (8.4-10.2) mg/dL Magnesium (1.6-2.6) mg/dL Total Bilirubin 0.3 (0.0-1.0) mg/dL AST 26 (5-31) U/L ALT 13 (0-31) U/L Alkaline Phosphatase 58 (39-117) U/L Troponin I High Sens (<3.5-17.0) ng/L Total Protein 6.9 (6.5-8.0) g/dL Albumin 3.7 (3.5-5.0) g/dL Lipase (8-78) U/L Urine Color Urine Appearance Urine pH (5.0-9.0) Ur Specific [place] (1.005-1.025) Urine Protein (Neg-Trace) mg/dL Urine Glucose (UA) (Negative) mg/dL Urine Ketones (Negative) mg/dL Urine Blood (Negative) Urine Nitrite (Negative) Ur Leukocyte Esterase (Negative) Urine RBC (0-2) /HPF Urine WBC (0-5) /HPF Ur Squamous Epith Cells (0-2) /HPF Urine Bacteria (None Seen) Hyaline Casts (0-2) /LPF 10/14/22 10/14/22 10/14/22 Range/Units 16:14 16:14 16:14 WBC (4.8-10.8) X10*3/uL RBC (4.20-5.50) X10*6/uL Hgb (12.0-16.0) g/dl Hct (37.0-47.0) % MCV (80.0-98.0) fL MCH (27.0-33.0) pg MCHC (31.0-35.0) g/dl RDW (11.0-16.0) % Plt Count (160-400) X10*3/uL MPV (9.4-12.3) fL Immature Gran % (Auto) (0.0-0.4) % Neut % (Auto) (45-73) % Lymph % (Auto) (20-40) % Kimball % (Auto) (2-11) % Eos % (Auto) (0-4) % Baso % (Auto) (0-2) % Lymph # (Auto) (1.2-4.9) X10*3/uL Kimball # (Auto) (0.1-1.2) X10*3/uL Eos # (Auto) (0.0-0.4) X10*3/uL Baso # (Auto) (0.0-0.2) X10*3/uL Abs Immat Gran (auto) (0.00-0.03) X10*3/uL Absolute Neuts (auto) (2.0-8.3) x10*3/uL Absolute Nucleated RBC (0.0-0.012) X10*3/uL Nucleated RBC % (auto) (0.0-0.2) /100WBC PT (10.0-13.1) SEC INR (0.9-1.1) Sodium (135-145) mmol/L Potassium (3.3-5.1) mmol/L Chloride (96-108) mmol/L Carbon Dioxide (22-29) mmol/L Anion Gap (12-20) BUN (9-16) mg/dL Creatinine (0.5-1.4) mg/dL Estim Creat Clear Calc Estimated GFR Random Glucose (60-115) mg/dL Lactic Acid 1.4 (0.5-2.0) mmol/L Calcium (8.4-10.2) mg/dL Magnesium 2.1 (1.6-2.6) mg/dL Total Bilirubin (0.0-1.0) mg/dL AST (5-31) U/L ALT (0-31) U/L Alkaline Phosphatase (39-117) U/L Troponin I High Sens 6.1 D (<3.5-17.0) ng/L Total Protein (6.5-8.0) g/dL Albumin (3.5-5.0) g/dL Lipase 26 (8-78) U/L Urine Color Urine Appearance Urine pH (5.0-9.0) Ur Specific [place] (1.005-1.025) Urine Protein (Neg-Trace) mg/dL Urine Glucose (UA) (Negative) mg/dL Urine Ketones (Negative) mg/dL Urine Blood (Negative) Urine Nitrite (Negative) Ur Leukocyte Esterase (Negative) Urine RBC (0-2) /HPF Urine WBC (0-5) /HPF Ur Squamous Epith Cells (0-2) /HPF Urine Bacteria (None Seen) Hyaline Casts (0-2) /LPF 10/14/22 Range/Units 21:30 WBC (4.8-10.8) X10*3/uL RBC (4.20-5.50) X10*6/uL Hgb (12.0-16.0) g/dl Hct (37.0-47.0) % MCV (80.0-98.0) fL MCH (27.0-33.0) pg MCHC (31.0-35.0) g/dl RDW (11.0-16.0) % Plt Count (160-400) X10*3/uL MPV (9.4-12.3) fL Immature Gran % (Auto) (0.0-0.4) % Neut % (Auto) (45-73) % Lymph % (Auto) (20-40) % Kimball % (Auto) (2-11) % Eos % (Auto) (0-4) % Baso % (Auto) (0-2) % Lymph # (Auto) (1.2-4.9) X10*3/uL Kimball # (Auto) (0.1-1.2) X10*3/uL Eos # (Auto) (0.0-0.4) X10*3/uL Baso # (Auto) (0.0-0.2) X10*3/uL Abs Immat Gran (auto) (0.00-0.03) X10*3/uL Absolute Neuts (auto) (2.0-8.3) x10*3/uL Absolute Nucleated RBC (0.0-0.012) X10*3/uL Nucleated RBC % (auto) (0.0-0.2) /100WBC PT (10.0-13.1) SEC INR (0.9-1.1) Sodium (135-145) mmol/L Potassium (3.3-5.1) mmol/L Chloride (96-108) mmol/L Carbon Dioxide (22-29) mmol/L Anion Gap (12-20) BUN (9-16) mg/dL Creatinine (0.5-1.4) mg/dL Estim Creat Clear Calc Estimated GFR Random Glucose (60-115) mg/dL Lactic Acid (0.5-2.0) mmol/L Calcium (8.4-10.2) mg/dL Magnesium (1.6-2.6) mg/dL Total Bilirubin (0.0-1.0) mg/dL AST (5-31) U/L ALT (0-31) U/L Alkaline Phosphatase (39-117) U/L Troponin I High Sens (<3.5-17.0) ng/L Total Protein (6.5-8.0) g/dL Albumin (3.5-5.0) g/dL Lipase (8-78) U/L Urine Color Dark Yellow Urine Appearance Clear Urine pH 5.5 (5.0-9.0) Ur Specific [place] >= 1.030 H (1.005-1.025) Urine Protein 30 (1+) H (Neg-Trace) mg/dL Urine Glucose (UA) >=1000 H (Negative) mg/dL Urine Ketones Negative (Negative) mg/dL Urine Blood Negative (Negative) Urine Nitrite Negative (Negative) Ur Leukocyte Esterase Negative (Negative) Urine RBC 0-2 (0-2) /HPF Urine WBC 0-5 (0-5) /HPF Ur Squamous Epith Cells 0-2 (0-2) /HPF Urine Bacteria None Seen (None Seen) Hyaline Casts 0-2 (0-2) /LPF Independent Interpretation I performed an independent interpretation of an: EKG Interpretation: EKG: atrial fibrillation with RVR, rate 139, normal QT interval External Record Review External record reviewed: Inpatient record, Office record and Outpatient record Prescription Management I considered prescription management with: Antibiotic Discharge Plan Discharge Clinical Impression: Atrial fibrillation, Colitis Patient Disposition: Home, Self-Care Instructions: A-fib (Atrial Fibrillation) (ED), Colitis (ED) Additional Instructions: Return to the ED immediately for any chest pain, shortness of breath, lightheadedness, dizziness, fever, chills, blood in stool, diarrhea, weakness, dizziness, syncope, abdominal pain, fever, chills, or any other concerning symptoms. Please follow-up the primary care provider and wastewater design engineer. Prescriptions: New metronidazole 500 mg tablet 500 mg PO Q12H 7 Days Qty: 14 0RF ciprofloxacin HCl [Cipro] 500 mg tablet 500 mg PO Q12H 7 Days Qty: 14 0RF No Action fenofibrate 160 mg tablet 160 mg PO DAILY 90 Days Qty: 90 3RF loratadine 10 mg tablet 10 mg PO DAILY 90 Days Qty: 90 0RF thiamine HCl (vitamin B1) 100 mg tablet 100 mg PO DAILY 90 Days Qty: 90 1RF atenolol 50 mg tablet 50 mg PO DAILY 90 Days Qty: 90 3RF hydroxychloroquine [Plaquenil] 200 mg tablet 200 mg PO BID Qty: 180 3RF ferrous sulfate 325 mg (65 mg iron) tablet 325 mg PO DAILY 90 Days Qty: 90 1RF fluticasone propionate 50 mcg/actuation spray,suspension 1 spray intranasal DAILY 90 Days Qty: 16 3RF Rx Instructions: administer into each nostril Myrbetriq 50 mg tablet extended release 24 hr 50 mg PO DAILY 90 Days Qty: 90 1RF (DME) blood-glucose meter [OneTouch Verio Meter] [facility] See Rx Instructions .Route Qty: 1 0RF Rx Instructions: As directed (DME) OneTouch Verio test strips Strip See Rx Instructions .Route Qty: 100 5RF Rx Instructions: Use 1 test strip twice a day (DME) lancets [OneTouch UltraSoft Lancets] [facility] [place] See Rx Instructions .Route Qty: 100 3RF Rx Instructions: USe 1 lancet once a day cholecalciferol (vitamin D3) 50 mcg (2,000 unit) tablet 2,000 unit PO DAILY 90 Days Qty: 90 3RF cyanocobalamin (vitamin B-12) 1,000 mcg tablet 1,000 mcg PO DAILY 90 Days Qty: 90 3RF gabapentin 600 mg tablet 600 mg PO TID 90 Days Qty: 270 1RF docusate sodium [DOK] 100 mg capsule 100 mg PO BID PRN (Reason: constipation) 90 Days Qty: 180 2RF Jardiance 25 mg tablet 25 mg PO DAILY 90 Days Qty: 90 3RF magnesium 200 mg tablet 200 mg PO DAILY 90 Days Qty: 90 5RF trazodone 100 mg tablet 100 mg PO BEDTIME 90 Days Qty: 90 1RF rosuvastatin [Crestor] 40 mg tablet 40 mg PO BEDTIME 90 Days Qty: 90 1RF metformin 1,000 mg tablet 1,000 mg PO BIDWM 90 Days Qty: 180 1RF omeprazole 40 mg capsule,delayed release(DR/EC) 40 mg PO DAILY@0630 90 Days Qty: 90 1RF ketoconazole 2 % cream 1 appl topical BID 30 Days Qty: 30 0RF oxycodone 5 mg tablet 5 mg PO Q6H PRN (Reason: pain) 30 Days Qty: 20 0RF losartan 25 mg tablet 25 mg PO DAILY 90 Days Qty: 30 5RF escitalopram oxalate [Lexapro] 10 mg tablet 10 mg PO DAILY 90 Days Qty: 90 1RF ropinirole 0.25 mg tablet 2 tab PO BEDTIME estradiol 0.01 % (0.1 mg/gram) cream 1 appl vaginal 3XW acetaminophen 325 mg Tablet 650 mg PO Q6H PRN (Reason: Pain (Scale Score 1-3)) sennosides [senna] 8.6 mg tablet 17.2 mg PO BEDTIME PRN (Reason: Constipation) baclofen 10 mg tablet 5 mg PO TID PRN (Reason: muscle spasm) Xarelto 20 mg tablet 20 mg PO DAILY@1700 insulin degludec [Tresiba FlexTouch U-100] 100 unit/mL (3 mL) insulin pen 0 - 10 unit subcut BEDTIME Trulicity 3 mg/0.5 mL pen injector 3 mg subcut TH@0900 riboflavin (vitamin B2) 400 mg tablet 400 mg PO DAILY Qty: 30 0RF Print Language: Japanese
[2022-10-14 15:50] VITALS: BP 117/94; PULSE 122; RESP 19; TEMP 37.2; O2SAT 95; BMI 38.1
[2022-10-14 16:00] VITALS: TEMP 38.3
[2022-10-14 16:21] LABS: MANUAL DIFF FLAG NO
[2022-10-14 16:23] LABS: Basophils Absolute Auto 0.1 X10*3/uL (0.0-0.2); Basophils Percent Auto 1.1 % (0-2); Eosinophils Absolute Auto 0.4 X10*3/uL (0.0-0.4); Eosinophils Percent Auto 5.1 % (0-4); Hematocrit 36.2 % (37.0-47.0); Hemoglobin 11.4 g/dl (12.0-16.0); Imm Gran Abs Auto 0.02 X10*3/uL (0.00-0.03); Imm Gran Pct Auto 0.2 % (0.0-0.4); Lymphocytes Absolute Auto 1.1 X10*3/uL (1.2-4.9); Lymphocytes Percent Auto 12.9 % (20-40); Mean Corpuscular HGB Conc 31.5 g/dl (31.0-35.0); Mean Corpuscular Hemoglobin 26.8 pg (27.0-33.0); Mean Corpuscular Volume 85.2 fL (80.0-98.0); Mean Platelet Volume 8.7 fL (9.4-12.3); Monocytes Absolute Auto 0.8 X10*3/uL (0.1-1.2); Monocytes Percent Auto 9.2 % (2-11); Neutrophils Percent Auto 71.5 % (45-73); Platelet Count 364 X10*3/uL (160-400); Red Blood Count 4.25 X10*6/uL (4.20-5.50); Red Cell Distribution Width 17.1 % (11.0-16.0); White Blood Count 8.4 X10*3/uL (4.8-10.8)
[2022-10-14] MEDS: levoFLOXacin/D5W 750 MG/150 ML PIGGYBACK 100 MG IV (16:29)
[2022-10-14] MEDS: 0.9 % Sodium Chloride 500 ML IV (16:29)
[2022-10-14 16:34] LABS: Prothrombin Time 11.9 SEC (10.0-13.1)
[2022-10-14 16:35] LABS: Lactic Acid 1.4 mmol/L (0.5-2.0)
[2022-10-14 16:42] LABS: Lipase 26 U/L (8-78); Magnesium 2.1 mg/dL (1.6-2.6)
[2022-10-14 16:43] LABS: Alanine Aminotransferase 13 U/L (0-31); Albumin Level 3.7 g/dL (3.5-5.0); Alkaline Phosphatase 58 U/L (39-117); Anion Gap 15 (12-20); Aspartate Amino Transferase 26 U/L (5-31); Bilirubin Total 0.3 mg/dL (0.0-1.0); Blood Urea Nitrogen 16 mg/dL (9-16); Calcium 9.1 mg/dL (8.4-10.2); Carbon Dioxide 21 mmol/L (22-29); Chloride 107 mmol/L (96-108); Creatinine Clr Calc Pharmacy 69.4; Estimated Glomerular Filt Rate > 60; Glucose Random 155 mg/dL (60-115); Sodium 138 mmol/L (135-145); Total Protein 6.9 g/dL (6.5-8.0)
[2022-10-14 16:47] LABS: Troponin-I High Sensitivity 6.1 ng/L (<3.5-17.0)
[2022-10-14 17:38] VITALS: BP 123/75; PULSE 77; RESP 20; O2SAT 95
[2022-10-14] MEDS: iohexoL 350 MG/ML 100 ML INFUS..BTL IV (18:25)
[2022-10-14] MEDS: Acetaminophen 325 MG TABLET 650 MG PO (18:32)
[2022-10-14 18:33] VITALS: BP 125/71; PULSE 77; RESP 17; TEMP 36.3; O2SAT 94
--- NOTE | 2022-10-14 21:30 | PC.NURSE ---
late entry- this rn assumed care of pt @ 1915. pt calm and cooperative. pt placed on periwick. pt awaiting disposition
[2022-10-14 21:38] LABS: Appearance Urine Clear; Color Urine Dark Yellow; Glucose Urine UA >=1000 mg/dL (Negative); Leukocyte Esterase Urine Negative (Negative); Nitrite Urine Negative (Negative); PH 5.5 (5.0-9.0); Specific Gravity - Urine >= 1.030 (1.005-1.025); UMIC TRIGGER UACC YES; Urine Blood Negative (Negative); Urine Ketones Negative (Negative); Urine Protein 30 (1+) mg/dL (Neg-Trace)
[2022-10-14 21:42] LABS: Bacteria Urine None Seen (None Seen); Hyaline Casts Urine 0-2 /LPF (0-2); RBC Urine 0-2 /HPF (0-2); Squamous Epithelial Cell Urine 0-2 /HPF (0-2); WBC Urine 0-5 /HPF (0-5)
[2022-10-14 22:06] VITALS: BP 142/50; PULSE 70; RESP 23; TEMP 36.8; O2SAT 94
[2022-10-14 23:54] VITALS: BP 198/86; PULSE 73; RESP 17; TEMP 36.7; O2SAT 99
[2022-10-15] MEDS: guaiFENesin 200 MG/10 ML 10 ML LIQUID PO (00:57)
[2022-10-15 01:01] VITALS: BP 202/69; PULSE 76; RESP 94; TEMP 37.3; O2SAT 95
[2022-10-15] MEDS: atenoloL 50 MG TABLET PO (01:14)
--- NOTE | 2022-10-15 01:32 | PC.NURSE ---
pt bp noted to be 202/69 at discharge this rn made osorio rodriguez aware. pt medicated according to jul. pt iv removed at discharge. pt utilized wheelchair at discharge. pt arrived for ride home. pt calm and cooperative. stand and pivot into wheelchair
== END 2022-10-15 01:34 | disposition home or self-care (01) ==
PROVIDERS: Registered Nurse Emergency; Emergency Provider Student in an Organized Health Care Education/Training Program; PCP Internal Medicine
DX: I48.91 Unspecified atrial fibrillation (principal); K52.9 Noninfective gastroenteritis and colitis, unspecified; R00.2 Palpitations; E11.9 Type 2 diabetes mellitus without complications; I11.0 Hypertensive heart disease with heart failure; I50.9 Heart failure, unspecified; E78.5 Hyperlipidemia, unspecified; Z79.899 Other long term (current) drug therapy; Z87.891 Personal history of nicotine dependence
CPT/HCPCS: 36415; 71046; 74177; 80053; 81001; 83605; 83690; 83735; 84484; 85025; 85610; 87040; 93005; 93280; 96361; 96365; 99212; 99284; 99285; J1956; Q9967

== ENCOUNTER 2022-10-16 12:45 | Inpatient (IN) | payer MEDICARE, SELFPAY ==
--- NOTE | ~2022-10-16 | XR_ITS ---
EXAMINATION: XR CHEST CLINICAL INFORMATION: Pain COMPARISON: Chest radiographs 10/14/2022, 08/24/2022; CT abdomen 10/14/2022 TECHNIQUE: 2 views of the chest were obtained. FINDINGS: The lungs are clear. There is no pneumothorax, pleural reaction, or effusion. No lobar or segmental airspace consolidation or groundglass opacity. Again, there is bipolar pacemaker with atrial and ventricular leads. Spinal stimulator leads are also seen overlying the spine. The hilar and mediastinal contours are normal. No acute bony abnormality. XR/XR chest 2V IMPRESSION: Unremarkable examination.
--- NOTE | 2022-10-16 12:47 | ECG_ITS ---
Test Reason : AFIB Blood Pressure : / mmHG Vent. Rate : 070 BPM Atrial Rate : 000 BPM P-R Int : 000 ms QRS Dur : 108 ms QT Int : 464 ms P-R-T Axes : 000 -28 020 degrees QTc Int : 501 ms Atrial paced rhythm Minimal voltage criteria for LVH, may be normal variant ( Brayan product ) Inferior infarct-old Prolonged QT Abnormal ECG When compared with ECG of 14-OCT-2022 15:06, Atrial paced rhythm has replaced Afib Referred By: Generic ED Physician Electronically Signed By:Reginald Amato
[2022-10-16 12:49] VITALS: BP 156/73; PULSE 70; RESP 18; TEMP 36.6; O2SAT 98; BMI 37.2
--- NOTE | 2022-10-16 12:52 | ED_ITS ---
HPI - General Adult General Chief complaint: Arrhythmia/Palpitations Stated complaint: Afib? Time Seen by Provider: 10/16/22 15:17 Source: patient Mode of arrival: ambulatory Limitations: no limitations History of Present Illness HPI narrative: Patient is 72 years old with history of coronary disease status post stent placement, AFib on Xarelto and atenolol status post pacemaker, hypertension, hyperlipidemia, heart failure with preserved ejection fraction, diabetes for last few weeks patient feeling dizzy and weak seen the crepe machine operator in 10/14 noted to be AFib advised her to go to the hospital for admission patient was seen here in 10/14 at that time patient's vitals were normal without any tachycardia and pat ient discharged home patient comes back as see still feeling lousy with dizziness episodes on arrival patient's heart rate was 136 AFib. Patient denies any shortness of breath or syncope no chest pain patient did have diarrhea 2 days ago but now her bowel movements are normal taking Cipro and Flagyl Related Data Home Medications Medication Instructions Recorded Confirmed estradiol 0.01% (0.1 mg/gram) 1 appl vaginal 3XW 11/13/21 10/14/22 vaginal cream ropinirole 0.25 mg tablet 2 tab PO BEDTIME 11/13/21 10/14/22 acetaminophen 325 mg tablet 650 mg PO Q6H PRN Pain (Scale 07/18/22 10/14/22 Score 1-3) baclofen 10 mg tablet 5 mg PO TID PRN muscle spasm 07/18/22 10/14/22 dulaglutide 3 mg/0.5 mL 3 mg subcut TH@0900 07/18/22 10/14/22 subcutaneous pen injector (Trulicity) insulin degludec 100 unit/mL (3 0 - 10 unit subcut BEDTIME 07/18/22 10/14/22 mL) subcutaneous pen (Tresiba FlexTouch U-100 insulin) rivaroxaban 20 mg tablet (Xarelto) 20 mg PO DAILY@1700 07/18/22 10/14/22 sennosides 8.6 mg tablet (senna) 17.2 mg PO BEDTIME PRN Constipation 07/18/22 10/14/22 Previous Rx's Medication Instructions Recorded riboflavin (vitamin B2) 400 mg 400 mg PO DAILY #30 tabs 06/22/21 tablet fenofibrate 160 mg tablet 160 mg PO DAILY 90 days #90 tabs 09/28/21 loratadine 10 mg tablet 10 mg PO DAILY 90 days #90 tabs 11/19/21 thiamine HCl (vitamin B1) 100 mg 100 mg PO DAILY 90 days #90 tabs 02/03/22 tablet atenolol 50 mg tablet 50 mg PO DAILY 90 days #90 tabs 03/22/22 hydroxychloroquine 200 mg tablet 200 mg PO BID #180 tabs 04/03/22 (Plaquenil) ferrous sulfate 325 mg (65 mg 325 mg PO DAILY 90 days #90 tabs 05/02/22 iron) tablet fluticasone propionate 50 1 spray intranasal DAILY 90 days 05/21/22 mcg/actuation nasal #16 grams spray,suspension mirabegron 50 mg tablet,extended 50 mg PO DAILY 90 days #90 tabs 06/04/22 release 24 hr (Myrbetriq) blood sugar diagnostic (OneTouch #100 ea 06/12/22 Verio test strips) blood-glucose meter (OneTouch #1 ea 06/12/22 Verio Meter) lancets (OneTouch UltraSoft #100 ea 06/12/22 Lancets) cholecalciferol (vitamin D3) 50 2,000 unit PO DAILY 90 days #90 06/19/22 mcg (2,000 unit) tablet tabs cyanocobalamin (vitamin B-12) 1,000 mcg PO DAILY 90 days #90 tabs 07/11/22 1,000 mcg tablet gabapentin 600 mg tablet 600 mg PO TID 90 days #270 tabs 07/11/22 docusate sodium 100 mg capsule 100 mg PO BID PRN constipation 90 07/19/22 (DOK) days #180 caps empagliflozin 25 mg tablet 25 mg PO DAILY 90 days #90 tabs 07/19/22 (Jardiance) magnesium 200 mg tablet 200 mg PO DAILY 90 days #90 tabs 07/19/22 metformin 1,000 mg tablet 1,000 mg PO BIDWM 90 days #180 tabs 07/19/22 omeprazole 40 mg capsule,delayed 40 mg PO DAILY@0630 90 days #90 07/19/22 release caps rosuvastatin 40 mg tablet (Crestor) 40 mg PO BEDTIME 90 days #90 tabs 07/19/22 trazodone 100 mg tablet 100 mg PO BEDTIME 90 days #90 tabs 07/19/22 ketoconazole 2 % topical cream 1 appl topical BID 30 days #30 08/19/22 grams oxycodone 5 mg tablet 5 mg PO Q6H PRN pain 30 days #20 09/27/22 tabs escitalopram oxalate 10 mg tablet 10 mg PO DAILY 90 days #90 tabs 10/04/22 (Lexapro) losartan 25 mg tablet 25 mg PO DAILY 90 days #30 tabs 10/04/22 ciprofloxacin HCl 500 mg tablet 500 mg PO Q12H 7 days #14 tabs 10/14/22 (Cipro) metronidazole 500 mg tablet 500 mg PO Q12H 7 days #14 tabs 10/14/22 Allergies Allergy/AdvReac Type Severity Reaction Status Date / Time morphine [Morphine] Allergy Severe ITCHING, Verified 10/14/22 14:17 hives cefdinir Allergy Intermediate hives Verified 10/14/22 14:17 sulfamethoxazole Allergy Intermediate RASH Verified 10/14/22 14:17 trimethoprim Allergy Intermediate RASH Verified 10/14/22 14:17 duloxetine AdvReac Severe altered Verified 10/14/22 14:17 behavior betina AdvReac Mild RUNNY NOSE Verified 10/14/22 14:17 mustard AdvReac Mild RUNNY NOSE Verified 10/14/22 14:17 potato [POTATO] AdvReac Mild ITCHY NOSE Verified 10/14/22 14:17 soybean AdvReac Mild RUNNY NOSE Verified 10/14/22 14:17 cheese AdvReac Intermediate head Uncoded 10/14/22 14:17 congestion Review of Systems Review of Systems: Yes all other systems are reviewed and are negative PMFSH Past Medical History Medical History Acute upper GI bleed Anemia Anemia Atherosclerotic cardiovascular disease Chronic heart failure with preserved ejection fraction (HFpEF) COVID-19 CVA (cerebral vascular accident) Diabetes mellitus Diabetes type 2, uncontrolled Diabetic neuropathy Diabetic polyneuropathy Dizziness Dyslipidemia Essential hypertension Falls Hand pain Head injury Headache Hospital discharge follow-up Hyperlipidemia LDL goal <70 Iron deficiency anemia Ischemic stroke Left hand pain Left hip pain Left knee pain Left shoulder pain Lumbar degenerative disc disease Mild recurrent major depression Obesity due to excess calories Other and unspecified hyperlipidemia Paroxysmal atrial fibrillation PONV (postoperative nausea and vomiting) Positive occult stool blood test Post-dural puncture headache Proteinuria Pulmonary hypertension Pure hypercholesterolemia Thiamine deficiency Thrombocytosis Thrombus 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 Urge urinary incontinence Surgical History H/O colonoscopy History of Mohs micrographic surgery for skin cancer History of partial hysterectomy Hx of cardiac cath Hx of cervical spine surgery S/P cardiac pacemaker procedure S/P insertion of spinal cord stimulator Family History Family History Father Rectal cancer Hypertension Arthritis of knee CVD (cardiovascular disease) Mother Hypertension CVD (cardiovascular disease) Myocardial infarction Diabetes Social History Social History Household Members: Spouse [facility] Are you a primary medicare insurance specialist to a significant other at home: No Do you presently have visiting nurse or other home services: No Alcohol intake: never Patient Tobacco Use Status: Former Tobacco user Quit Date: 1993 Tobacco use type: Cigarette e-Cigarette/Vaping Use: Never Used Second Hand Smoke Exposure: No Advance Directives: Yes Advance Directives on File: Yes Advance Directives Date on File: 07/17/20 service: No Current occupational status: retired Current occupation: Lt handed Cognitive needs: Yes (scodor/walker) Hearing needs: No Vision needs: Yes (glasses) Physical Exam ED Vital Signs: Vital Signs - 24 hr 10/16/22 12:49 10/16/22 15:45 Temperature 98 F Pulse Rate 70 75 Respiratory Rate 18 14 Blood Pressure 156/73 H 136/95 H Pulse Oximetry 98 95 Oxygen Delivery Method Room Air Room Air BMI result Body Mass Index 37.2 Appearance: Alert. Oriented X3. No acute distress. Eyes: PERRLA, No Nystagmus ENT: Pharynx normal. Oral Mucosa moist Neck: Normal inspection. Neck supple. CVS: Irregularly irregular tachycardic no murmur /rub Pulses normal. Respiratory: No respiratory distress. Equal air entry bilateral, no wheezing/rales/rhonchi Abdomen: Soft and nontender. Bowel sounds are present, no mass palpable, no CVA tenderness Skin: Skin warm and dry. Normal skin color. Normal skin turgor. Extremities: No lower extremity edema. No calf tenderness Neuro: Oriented X 3. No motor deficit. No sensory deficit.No cerebellar signs , cranial nerves II-XII intact Course Course Course Narrative: RME- 72-year-old female with past medical history significant for atrial flutter status post pacemaker implantation presents for evaluation of chest pain. She is coming from cardiology office. Patient believe she is in ?AFib. ? Patient's heart rate appears regular on palpation. EKG and labs ordered Medications Administered Generic Name Dose Route Start Last Admin Trade Name Freq PRN Reason Stop Dose Admin Diltiazem HCl 125 mg/ Sodium 125 mls @ 0 mls/hr 10/16/22 15:30 10/16/22 15:40 Chloride IVCONT 10 mg/hr .Q0M SHANON 10 mls/hr Administration Protocol Per Protocol Discontinued Medications Generic Name Dose Route Start Last Admin Trade Name Freq PRN Reason Stop Dose Admin Diltiazem HCl 20 mg 10/16/22 15:29 10/16/22 15:35 Diltiazem Hcl 50 Mg/10 Ml Vial IVPUSH 10/16/22 15:30 20 mg STAT STA Administration Medical Decision Making Medical Decision Making [facility] Narrative: Patient with paroxysmal AFib with RVR seen by crepe machine operator will start Cardizem drip admit for further evaluation, labs are stable patient heart rate improved to 70s pacemaker beats Consult Healthcare Provider Management of the patient was discussed with: Hospitalist Lab Data [facility] Lab Attestation statement: I reviewed the patient's lab results. 10/16/22 13:40 10/16/22 13:40 Labs: Lab Results 10/16/22 10/16/22 10/16/22 Range/Units 13:40 13:40 13:40 WBC 6.4 (4.8-10.8) X10*3/uL RBC 4.55 (4.20-5.50) X10*6/uL Hgb 12.1 (12.0-16.0) g/dl Hct 37.5 (37.0-47.0) % MCV 82.4 (80.0-98.0) fL MCH 26.6 L (27.0-33.0) pg MCHC 32.3 (31.0-35.0) g/dl RDW 16.7 H (11.0-16.0) % Plt Count 382 (160-400) X10*3/uL MPV 8.8 L (9.4-12.3) fL Immature Gran % (Auto) 0.3 (0.0-0.4) % Neut % (Auto) 70.2 (45-73) % Lymph % (Auto) 15.1 L (20-40) % [place] % (Auto) 11.0 (2-11) % Eos % (Auto) 2.5 (0-4) % Baso % (Auto) 0.9 (0-2) % Lymph # (Auto) 1.0 L (1.2-4.9) X10*3/uL [place] # (Auto) 0.7 (0.1-1.2) X10*3/uL Eos # (Auto) 0.2 (0.0-0.4) X10*3/uL Baso # (Auto) 0.1 (0.0-0.2) X10*3/uL Abs Immat Gran (auto) 0.02 (0.00-0.03) X10*3/uL Absolute Neuts (auto) 4.5 (2.0-8.3) x10*3/uL Absolute Nucleated RBC 0.000 (0.0-0.012) X10*3/uL Nucleated RBC % (auto) 0.0 (0.0-0.2) /100WBC PT 13.8 H (10.0-13.1) SEC INR 1.2 H (0.9-1.1) APTT 40.6 H (26.0-36.4) SEC Sodium 136 (135-145) mmol/L Potassium 4.0 (3.3-5.1) mmol/L Chloride 103 (96-108) mmol/L Carbon Dioxide 21 L (22-29) mmol/L Anion Gap 16 (12-20) BUN 14 (9-16) mg/dL Creatinine 0.88 (0.5-1.4) mg/dL Estim Creat Clear Calc 61.5 Estimated GFR > 60 Random Glucose 116 H (60-115) mg/dL Calcium 9.6 (8.4-10.2) mg/dL Magnesium 2.1 (1.6-2.6) mg/dL Total Bilirubin 0.6 (0.0-1.0) mg/dL AST 22 (5-31) U/L ALT 11 (0-31) U/L Alkaline Phosphatase 52 (39-117) U/L Troponin I High Sens (<3.5-17.0) ng/L B-Natriuretic Peptide (<100) pg/mL Total Protein 6.7 (6.5-8.0) g/dL Albumin 3.8 (3.5-5.0) g/dL Lipase 18 (8-78) U/L 10/16/22 10/16/22 Range/Units 13:40 13:40 WBC (4.8-10.8) X10*3/uL RBC (4.20-5.50) X10*6/uL Hgb (12.0-16.0) g/dl Hct (37.0-47.0) % MCV (80.0-98.0) fL MCH (27.0-33.0) pg MCHC (31.0-35.0) g/dl RDW (11.0-16.0) % Plt Count (160-400) X10*3/uL MPV (9.4-12.3) fL Immature Gran % (Auto) (0.0-0.4) % Neut % (Auto) (45-73) % Lymph % (Auto) (20-40) % [place] % (Auto) (2-11) % Eos % (Auto) (0-4) % Baso % (Auto) (0-2) % Lymph # (Auto) (1.2-4.9) X10*3/uL [place] # (Auto) (0.1-1.2) X10*3/uL Eos # (Auto) (0.0-0.4) X10*3/uL Baso # (Auto) (0.0-0.2) X10*3/uL Abs Immat Gran (auto) (0.00-0.03) X10*3/uL Absolute Neuts (auto) (2.0-8.3) x10*3/uL Absolute Nucleated RBC (0.0-0.012) X10*3/uL Nucleated RBC % (auto) (0.0-0.2) /100WBC PT (10.0-13.1) SEC INR (0.9-1.1) APTT (26.0-36.4) SEC Sodium (135-145) mmol/L Potassium (3.3-5.1) mmol/L Chloride (96-108) mmol/L Carbon Dioxide (22-29) mmol/L Anion Gap (12-20) BUN (9-16) mg/dL Creatinine (0.5-1.4) mg/dL Estim Creat Clear Calc Estimated GFR Random Glucose (60-115) mg/dL Calcium (8.4-10.2) mg/dL Magnesium (1.6-2.6) mg/dL Total Bilirubin (0.0-1.0) mg/dL AST (5-31) U/L ALT (0-31) U/L Alkaline Phosphatase (39-117) U/L Troponin I High Sens 11.6 D (<3.5-17.0) ng/L B-Natriuretic Peptide 455 H (<100) pg/mL Total Protein (6.5-8.0) g/dL Albumin (3.5-5.0) g/dL Lipase (8-78) U/L Independent Interpretation I performed an independent interpretation of an: EKG Interpretation: Atrial fibrillation with ventricular rate 99 beats per minute LVH no acute ST T wave changes no acute ischemia Discharge Plan Discharge Clinical Impression: Atrial fibrillation with rapid ventricular response Patient Disposition: Admitted As Inpatient
[2022-10-16 13:47] LABS: MANUAL DIFF FLAG NO
[2022-10-16 13:50] LABS: Basophils Absolute Auto 0.1 X10*3/uL (0.0-0.2); Basophils Percent Auto 0.9 % (0-2); Eosinophils Absolute Auto 0.2 X10*3/uL (0.0-0.4); Eosinophils Percent Auto 2.5 % (0-4); Hematocrit 37.5 % (37.0-47.0); Hemoglobin 12.1 g/dl (12.0-16.0); Imm Gran Abs Auto 0.02 X10*3/uL (0.00-0.03); Imm Gran Pct Auto 0.3 % (0.0-0.4); Lymphocytes Percent Auto 15.1 % (20-40); Mean Corpuscular HGB Conc 32.3 g/dl (31.0-35.0); Mean Corpuscular Hemoglobin 26.6 pg (27.0-33.0); Mean Corpuscular Volume 82.4 fL (80.0-98.0); Mean Platelet Volume 8.8 fL (9.4-12.3); Monocytes Absolute Auto 0.7 X10*3/uL (0.1-1.2); Neutrophils Absolute Auto 4.5 x10*3/uL (2.0-8.3); Neutrophils Percent Auto 70.2 % (45-73); Platelet Count 382 X10*3/uL (160-400); Red Blood Count 4.55 X10*6/uL (4.20-5.50); Red Cell Distribution Width 16.7 % (11.0-16.0); White Blood Count 6.4 X10*3/uL (4.8-10.8)
[2022-10-16 13:55] LABS: INTERNATIONAL NORM RATIO 1.2 (0.9-1.1); Prothrombin Time 13.8 SEC (10.0-13.1)
[2022-10-16 13:57] LABS: Partial Thromboplastin Time 40.6 SEC (26.0-36.4)
[2022-10-16 14:05] LABS: Alanine Aminotransferase 11 U/L (0-31); Albumin Level 3.8 g/dL (3.5-5.0); Alkaline Phosphatase 52 U/L (39-117); Anion Gap 16 (12-20); Aspartate Amino Transferase 22 U/L (5-31); Bilirubin Total 0.6 mg/dL (0.0-1.0); Blood Urea Nitrogen 14 mg/dL (9-16); Calcium 9.6 mg/dL (8.4-10.2); Carbon Dioxide 21 mmol/L (22-29); Chloride 103 mmol/L (96-108); Creatinine Clr Calc Pharmacy 61.5; Estimated Glomerular Filt Rate > 60; Glucose Random 116 mg/dL (60-115); Lipase 18 U/L (8-78); Magnesium 2.1 mg/dL (1.6-2.6); Sodium 136 mmol/L (135-145); Total Protein 6.7 g/dL (6.5-8.0)
[2022-10-16 14:10] LABS: B Type Natriuretic Peptide 455 pg/mL (<100)
[2022-10-16 14:13] LABS: Troponin-I High Sensitivity 11.6 ng/L (<3.5-17.0)
--- NOTE | 2022-10-16 15:29 | ECG_ITS ---
Test Reason : REPEAT Blood Pressure : / mmHG Vent. Rate : 099 BPM Atrial Rate : 102 BPM P-R Int : 000 ms QRS Dur : 108 ms QT Int : 328 ms P-R-T Axes : 000 245 025 degrees QTc Int : 420 ms Atrial fibrillation Minimal voltage criteria for LVH, may be normal variant ( Brayan product ) Inferior infarct , age undetermined Abnormal ECG When compared with ECG of 16-OCT-2022 13:06, Afib present Referred By: Pj Dumont Electronically Signed By:Reginald Amato
[2022-10-16] MEDS: dilTIAZem HCL 50 MG/10 ML VIAL 20 MG IVPUSH (15:35)
[2022-10-16] MEDS: dilTIAZem HCL 125 MG in 0.9 % Sodium Chloride 100 ML 10 MG IVCONT (15:40)
[2022-10-16 15:45] VITALS: BP 136/95; PULSE 75; RESP 14; O2SAT 95
--- NOTE | 2022-10-16 16:26 | P.HPHOSP_ITS ---
History of Present Illness Date of Service: 10/16/22 Attending physician on admission: Kevin Nieto Chief Complaint: weakness, nausea, headache, lightheaded 72-year-old female with pertinent history of insulin-dependent diabetes mellitus, essential hypertension, paroxysmal atrial fibrillation on Xarelto, CAD, mood disorder, HFpEF, history of CVA?presented to the ED earlier today for evaluation of lightheadedness and weakness ongoing for about 2 weeks. She was seen in the ED on 10/14 and diagnosed with Afib RVR and colitis. Rate was controlled by discharge and she was given flagyl and cipro to treat the colitis. Her diarrhea has resolved, but still reports weakness, lightheadedness, m igraine, malaise. Also has productive cough. Had pacemaker placed during recent admission 2 months ago with some ongoing stinging pain over the device. No retrosternal chest pain, sob, orthopnea, geronimo, abd pain, vomiting, dysuria, hematuria, melena, hematochezia, fevers, or chills. On arrival, vitals stable. However did develop AFib with RVR with rates ranging 100-136. EKG showed accelerated junctional rhythm, rate 70 with prolonged QTC of 501, no ST/T-wave abnormality. There is no leukocytosis. Renal function baseline, electrolyte levels normal, troponin within normal limits, BNP 455. She does tell me that her VNA is no longer giving her the oral Lasix that was prescribed but is unsure of the reason. In the ED has been treated with diltiazem 20 mg IV push and was started on Cardizem drip with improvement in heart rate to 70. Review of Systems Review of Systems: General: No fevers, unintentional weight loss. +generalized weakness,malaise HEENT: No blurred vision, diplopia. No sore throat, nasal congestion, rhinorrhea, sinus pain, ear pain Cardiovascular: No chest pain, palpitations, or leg edema Respiratory: No shortness of breath, wheezing, cough GI: No abdominal pain, nausea, vomiting, diarrhea, constipation, melena, hematochezia : No dysuria, hematuria, increased urinary frequency, decreased urinary output MSK: No myalgia, back pain Neuro: +lightheadedness, +headache. No weakness, paresthesias Skin: No rashes or lesions [facility] Medical History (Updated 10/17/22 @ 11:49 by Reginald Amato MD) Acute upper GI bleed Anemia Anemia Atherosclerotic cardiovascular disease Chronic heart failure with preserved ejection fraction (HFpEF) COVID-19 CVA (cerebral vascular accident) Diabetes mellitus Diabetes type 2, uncontrolled Diabetic neuropathy Diabetic polyneuropathy Dizziness Dyslipidemia Essential hypertension [place] Hand pain Head injury Headache Hospital discharge follow-up Hyperlipidemia LDL goal <70 Iron deficiency anemia Ischemic stroke Left hand pain Left hip pain Left knee pain Left shoulder pain Lumbar degenerative disc disease Mild recurrent major depression Obesity due to excess calories Other and unspecified hyperlipidemia Paroxysmal atrial fibrillation PONV (postoperative nausea and vomiting) Positive occult stool blood test Post-dural puncture headache Proteinuria Pulmonary hypertension Pure hypercholesterolemia Thiamine deficiency Thrombocytosis Thrombus 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 Urge urinary incontinence Family History Father Rectal cancer Hypertension Arthritis of knee CVD (cardiovascular disease) Mother Hypertension CVD (cardiovascular disease) Myocardial infarction Diabetes Surgical History H/O colonoscopy History of Mohs micrographic surgery for skin cancer History of partial hysterectomy Hx of cardiac cath Hx of cervical spine surgery S/P cardiac pacemaker procedure S/P insertion of spinal cord stimulator Social History Household Members: Spouse Housing: Apartment Are you a primary physician primary care sports medicine to a significant other at home: No Alcohol intake: never Patient Tobacco Use Status: Former Tobacco user Quit Date: 1993 Tobacco use type: Cigarette e-Cigarette/Vaping Use: Never Used Second Hand Smoke Exposure: No Use of substances other than those prescribed or required for medical reasons: No Currently Displaying Signs/Symptoms of Drug Intoxication Withdrawal: No Advance Directives: Yes Advance Directives on File: Yes Advance Directives Date on File: 07/17/20 Do you have thoughts of harming others: None Do you have a plan to hurt others: No Plan Recently lost weight without trying: Yes How much weight loss: 2-13 pounds Eating poorly because of decreased appetite: No Nutrition screen score: 3 Nutrition Risks: No Nutritional Risk Patient : No service: No Current occupational status: retired Current occupation: Lt handed Cognitive needs: Yes (scodor/walker) Hearing needs: No Vision needs: Yes (glasses) Meds Allergies Allergy/AdvReac Type Severity Reaction Status Date / Time morphine [Morphine] Allergy Severe ITCHING, Verified 10/14/22 14:17 hives cefdinir Allergy Intermediate hives Verified 10/14/22 14:17 sulfamethoxazole Allergy Intermediate RASH Verified 10/14/22 14:17 trimethoprim Allergy Intermediate RASH Verified 10/14/22 14:17 duloxetine AdvReac Severe altered Verified 10/14/22 14:17 behavior betina AdvReac Mild RUNNY NOSE Verified 10/14/22 14:17 mustard AdvReac Mild RUNNY NOSE Verified 10/14/22 14:17 potato [POTATO] AdvReac Mild ITCHY NOSE Verified 10/14/22 14:17 soybean AdvReac Mild RUNNY NOSE Verified 10/14/22 14:17 cheese AdvReac Intermediate head Uncoded 10/14/22 14:17 congestion Active Medications: Current Medications Acetaminophen (Acetaminophen 325 Mg Tablet) 650 mg PO Q6H PRN PRN Reason: Pain, Mild, headache Diltiazem HCl 125 mg/ Sodium (Chloride) 125 mls @ 0 mls/hr IVCONT .Q0M [facility]; Protocol Last Admin: 10/16/22 15:40 Dose: 10 mg/hr, 10 mls/hr Pharmacy Consult (Consult Rx Perform Med Rec) 1 each MISCELLANE ONCE PRN PRN Reason: Consult order Sodium Chloride (0.9 % Sodium Chloride Flush 3 Ml Syringe) [facility] Medications Medication Instructions Recorded Confirmed Last Taken Type estradiol 0.01% (0.1 mg/gram) 1 appl vaginal 3XW 11/13/21 10/16/22 07/18/22 History vaginal cream ropinirole 0.25 mg tablet 2 tab PO BEDTIME 11/13/21 10/16/22 07/17/22 History acetaminophen 325 mg tablet 650 mg PO Q6H PRN Pain (Scale 07/18/22 10/16/22 Unknown History Score 1-3) baclofen 10 mg tablet 10 mg PO TID PRN muscle spasm 07/18/22 10/16/22 07/18/22 History dulaglutide 3 mg/0.5 mL 3 mg subcut TH@0900 07/18/22 10/17/22 07/11/22 History subcutaneous pen injector (Trulicity) insulin degludec 100 unit/mL (3 0 - 10 unit subcut BEDTIME 07/18/22 10/16/22 07/17/22 History mL) subcutaneous pen (Tresiba FlexTouch U-100 insulin) rivaroxaban 20 mg tablet (Xarelto) 20 mg PO DAILY@1700 07/18/22 10/16/22 07/17/22 History sennosides 8.6 mg tablet (senna) 17.2 mg PO BEDTIME PRN Constipation 07/18/22 10/16/22 Unknown History furosemide 40 mg tablet 40 mg PO DAILY 10/16/22 10/16/22 Unknown History Physical Exam Vital Signs and Narrative: Vital Signs: Last Vital Signs Temp 98 F 10/16/22 12:49 Pulse 75 10/16/22 15:45 Resp 14 10/16/22 15:45 BP 136/95 H 10/16/22 15:45 Pulse Ox 95 10/16/22 15:45 O2 Del Method Room Air 10/16/22 15:45 BMI result Body Mass Index 37.2 Constitutional - Awake and Alert, No apparent distress Eyes - PERRLA, EOMI Cardiovascular - S1S2, RRR, No edema Respiratory - Normal lung expansion, Normal respiratory effort, No respiratory distress, CTA bilaterally Gastrointestinal - mild diffuse ttp, soft, ND; +BS; No rebound or guarding - No CVA tenderness Extremities - no calf tenderness bilaterally, no swelling Skin - Warm/Dry Neurological - Alert & oriented x3, CN II-XII in tact, 5/5 strength BUE and BLE Psychological - Appropriate affect Results Labs 10/16/22 13:40 10/16/22 13:40 Labs: Laboratory Results - last 24 hr 10/16/22 10/16/22 10/16/22 13:40 13:40 13:40 MCV 82.4 MCH 26.6 L MCHC 32.3 RDW 16.7 H Plt Count 382 MPV 8.8 L Immature Gran % (Auto) 0.3 Neut % (Auto) 70.2 Lymph % (Auto) 15.1 L [place] % (Auto) 11.0 Eos % (Auto) 2.5 Baso % (Auto) 0.9 Lymph # (Auto) 1.0 L [place] # (Auto) 0.7 Eos # (Auto) 0.2 Baso # (Auto) 0.1 Abs Immat Gran (auto) 0.02 Absolute Neuts (auto) 4.5 Absolute Nucleated RBC 0.000 Nucleated RBC % (auto) 0.0 PT 13.8 H INR 1.2 H APTT 40.6 H Anion Gap 16 Estim Creat Clear Calc 61.5 Estimated GFR > 60 Random Glucose 116 H Calcium 9.6 Magnesium 2.1 Total Bilirubin 0.6 AST 22 ALT 11 Alkaline Phosphatase 52 Troponin I High Sens B-Natriuretic Peptide Total Protein 6.7 Albumin 3.8 Lipase 18 10/16/22 10/16/22 13:40 13:40 MCV MCH MCHC RDW Plt Count MPV Immature Gran % (Auto) Neut % (Auto) Lymph % (Auto) [place] % (Auto) Eos % (Auto) Baso % (Auto) Lymph # (Auto) [place] # (Auto) Eos # (Auto) Baso # (Auto) Abs Immat Gran (auto) Absolute Neuts (auto) Absolute Nucleated RBC Nucleated RBC % (auto) PT INR APTT Anion Gap Estim Creat Clear Calc Estimated GFR Random Glucose Calcium Magnesium Total Bilirubin AST ALT Alkaline Phosphatase Troponin I High Sens 11.6 D B-Natriuretic Peptide 455 H Total Protein Albumin Lipase Imaging Radiologist's Impressions: Impressions Chest X-Ray 10/16/22 13:05 IMPRESSION: Unremarkable examination. Assessment and Plan (1) Atrial fibrillation with rapid ventricular response: Status: Acute Plan 72-year-old female with pertinent history of insulin-dependent diabetes mellitus, essential hypertension, paroxysmal atrial fibrillation on Xarelto, CAD, mood disorder, HFpEF, history of CVA admitted for further management of AFib with RVR. # atrial fibrillation with RVR -likely triggered by infectious colitis, continue treating as below -rates now controlled in the 70s. Discontinue Cardizem drip -continue atenolol 50 mg daily -continue Xarelto for anticoagulation -Last echo 08/01 showing hyperdynamic LV systolic function with EF greater than 70% -appreciate cardiology input -cardiac diet -monitor on telemetry #Infectious colitis -febrile to 101 on 10/14, no further fevers. Diarrhea has resolved -Change abx to augmentin 875mg BID (treatment initiated with cipro/flagyl on 10/14) #HFpEF -no acute exacerbation, euvolemic on exam -continue oral Lasix 40 mg daily, Jardiance # insulin-dependent type 2 diabetes -POC glucose -diabetic diet -dose adjusted basal insulin -Humalog on sliding scale -hold p.o. anti hyperglycemics # hypertension -reasonably controlled -continue losartan, atenolol -monitor blood pressures # CAD-no anginal chest pain -continue atenolol, statin # mood disorder -continue home meds DVT prophylaxis-on Xarelto Full code Patient requires inpatient stay at least 2 midnights for management of atrial fibrillation with RVR being weaned from Cardizem drip requiring close cardiac monitoring and expert consultation Time Spent With Patient Time: Total time managing care of this patient today ____ minutes. Quality Stroke Does the patient have a stroke diagnosis?: No VTE Prior VTE?: No VTE Risk Level:: Medical - moderate - high VTE Device Contraindication: Treatment Not Indicated VTE Drug Contraindication: N/A - Med Ordered
--- NOTE | 2022-10-16 16:39 | PHA.MEDREC ---
Pharmacy Consult ? Medication Reconciliation Pharmacy has completed the medication reconciliation. Patient is great historian.
[2022-10-16 16:46] VITALS: BP 131/69; PULSE 72; RESP 18; O2SAT 95
[2022-10-16] MEDS: Rivaroxaban 20 MG TABLET PO (17:16)
[2022-10-16] MEDS: Amoxicillin/Potassium Clav 875 MG TABLET PO (17:16)
[2022-10-16 21:40] LABS: Glucose, Whole Blood 162 mg/dL (60-115)
[2022-10-16] MEDS: oxyCODONE HCl Immed Release 5 MG TABLET PO (21:44)
[2022-10-16] MEDS: Insulin Lispro 100 UNIT/ML 3 ML VIAL SUBCUT (21:44)
[2022-10-16] MEDS: Insulin Glargine,Hum.rec.anlog 100 UNIT/ML 10 ML VIAL SUBCUT (21:44)
[2022-10-16] MEDS: Hydroxychloroquine Sulfate 200 MG TABLET PO (21:45)
[2022-10-16] MEDS: Gabapentin 600 MG TABLET PO (21:45)
[2022-10-16] MEDS: Atorvastatin Calcium 80 MG TABLET PO (21:45)
[2022-10-16] MEDS: traZODone HCL 100 MG TABLET PO (21:45)
--- NOTE | 2022-10-16 21:49 | PC.NURSE ---
POC 167. Medications administered as per MAR.
--- NOTE | 2022-10-16 21:56 | MHC.CM.PN ---
Addendum entered by Tanja Vickers 10/16/22 22:15: [place] text to [facility]. Will order PT and Psych consult. Original Note: IMM 10/16. Lives with . A&Ox4. Uses rollator walker and electric scooter.Has pacemaker, pain stimulator for her back, CPAP and DM testing supplies. Has [facility] for SN, OT and PT. Pt was at [facility] for STR about a month ago. Pt had Pfizer x3/BV Pfizer x1. Pt reports concerns regarding pacemaker placement and why she went into AF w RVR. Encouraged patient and family to speak with supervisor sawmill, who will see her during her hospital stay, and ask these questions. Pt also admits to increased stressors, including recent move to [facility] from home of [place] years, increasing health issues, loss of drivers license and recent hospitalizations, as increasing her depression. CM listened and offered support. Will contact hospitalist regarding concerns. Pt also expresses concerns that she may need more STR, as she feels her needs to help her more at home and feels that the home therapy is not enough. CM will contact hospitalist regarding PT evaluation. D/C plan: home with existing services vs STR. Will assess at [facility]'s. No referrals placed at this time. CM contact card given and contact information for [facility]. Pt has concerns regarding life alert, and any help at home. CM will follow for discharge planning.
[2022-10-16 22:13] VITALS: BMI 36.2
[2022-10-16 22:33] VITALS: BMI 36.2
[2022-10-16 22:37] VITALS: BP 144/82; PULSE 70; RESP 20; TEMP 36; O2SAT 96
[2022-10-16] MEDS: rOPINIRole HCL 0.25 MG TABLET 0.5 MG PO (23:18)
[2022-10-16] MEDS: Acetaminophen 325 MG TABLET 650 MG PO (23:18)
[2022-10-16 23:28] VITALS: PULSE 97; O2SAT 95
[2022-10-16 23:41] VITALS: BP 130/78; PULSE 70; RESP 18; TEMP 36.7; O2SAT 98
[2022-10-17] VITALS (11 sets, daily range): BP systolic 94–150; BP diastolic 52–75; PULSE 65–71; RESP 14–18; TEMP 35.9–36.8; O2SAT 96–97
--- NOTE | 2022-10-17 05:50 | PC.NURSE ---
Pt arrived to [facility] at approx 2215 from ED via stretcher. A&Ox3. Complains of headache, PRN Tylenol given, lights turned off when care completed with effect. No s/sx respiratory distress. Wearing CPAP overnight as ordered. Paced on cnc supervisor. Fungal rash to the right abdominal fold/groin. Purewick in place. Call short within reach. Maintained safety and comfort.
[2022-10-17 06:50] LABS: MANUAL DIFF FLAG NO
[2022-10-17 06:55] LABS: Basophils Absolute Auto 0.1 X10*3/uL (0.0-0.2); Basophils Percent Auto 1.4 % (0-2); Eosinophils Absolute Auto 0.4 X10*3/uL (0.0-0.4); Eosinophils Percent Auto 6.6 % (0-4); Hematocrit 35.5 % (37.0-47.0); Hemoglobin 11.4 g/dl (12.0-16.0); Imm Gran Abs Auto 0.04 X10*3/uL (0.00-0.03); Imm Gran Pct Auto 0.6 % (0.0-0.4); Lymphocytes Absolute Auto 1.7 X10*3/uL (1.2-4.9); Lymphocytes Percent Auto 25.5 % (20-40); Mean Corpuscular HGB Conc 32.1 g/dl (31.0-35.0); Mean Corpuscular Hemoglobin 26.4 pg (27.0-33.0); Mean Corpuscular Volume 82.2 fL (80.0-98.0); Mean Platelet Volume 8.9 fL (9.4-12.3); Monocytes Absolute Auto 0.9 X10*3/uL (0.1-1.2); Neutrophils Absolute Auto 3.5 x10*3/uL (2.0-8.3); Neutrophils Percent Auto 52.9 % (45-73); Platelet Count 357 X10*3/uL (160-400); Red Blood Count 4.32 X10*6/uL (4.20-5.50); Red Cell Distribution Width 16.8 % (11.0-16.0); White Blood Count 6.5 X10*3/uL (4.8-10.8)
[2022-10-17 07:09] LABS: Anion Gap 13 (12-20); Blood Urea Nitrogen 21 mg/dL (9-16); Calcium 9.3 mg/dL (8.4-10.2); Carbon Dioxide 24 mmol/L (22-29); Chloride 102 mmol/L (96-108); Creatinine Clr Calc Pharmacy 51.3; Estimated Glomerular Filt Rate 52; Glucose Random 101 mg/dL (60-115); Potassium 3.5 mmol/L (3.3-5.1); Sodium 135 mmol/L (135-145)
[2022-10-17 07:16] LABS: Glucose, Whole Blood 102 mg/dL (60-115)
[2022-10-17] MEDS: Fenofibrate 160 MG TABLET PO (10:44)
[2022-10-17] MEDS: Mirabegron 50 MG TAB.ER.24H PO (10:44)
[2022-10-17] MEDS: Cholecalciferol (Vitamin D3) 25 MCG TABLET PO (10:44)
[2022-10-17] MEDS: Losartan Potassium 25 MG TABLET PO (10:44)
[2022-10-17] MEDS: Thiamine HCL 100 MG TABLET PO (10:44)
[2022-10-17] MEDS: Gabapentin 600 MG TABLET PO ×3 (10:44→20:50)
[2022-10-17] MEDS: Cyanocobalamin (Vitamin B-12) 1,000 MCG TABLET 1000 MCG PO (10:44)
[2022-10-17] MEDS: Escitalopram Oxalate 10 MG TABLET PO (10:45)
[2022-10-17] MEDS: Ferrous Sulfate 324 MG TABLET.DR PO (10:45)
[2022-10-17] MEDS: Empagliflozin 25 MG TABLET PO (10:45)
[2022-10-17] MEDS: Hydroxychloroquine Sulfate 200 MG TABLET PO ×2 (10:46→20:50)
[2022-10-17] MEDS: Loratadine 10 MG TABLET PO (10:46)
[2022-10-17] MEDS: Furosemide 40 MG TABLET PO (10:46)
[2022-10-17] MEDS: atenoloL 50 MG TABLET PO ×2 (10:46→20:50)
[2022-10-17] MEDS: Magnesium Oxide 400 MG TABLET 200 MG PO (10:49)
--- NOTE | 2022-10-17 11:05 | ECG_ITS ---
Test Reason : qt check Blood Pressure : / mmHG Vent. Rate : 070 BPM Atrial Rate : 070 BPM P-R Int : 222 ms QRS Dur : 110 ms QT Int : 450 ms P-R-T Axes : 088 087 032 degrees QTc Int : 486 ms Atrial-paced rhythm with prolonged AV conduction Possible Inferior infarct (cited on or before 16-OCT-2022) Abnormal ECG When compared with ECG of 16-OCT-2022 15:26, Electronic atrial pacemaker has replaced Atrial fibrillation Questionable change in QRS axis QT has lengthened Referred By: Reginald Amato Electronically Signed By:Reginald Amato
[2022-10-17 11:10] LABS: Glucose, Whole Blood 114 mg/dL (60-115)
[2022-10-17] MEDS: 0.9 % Sodium Chloride Flush 3 ML SYRINGE IVFLUSH ×3 (11:30→20:55)
--- NOTE | 2022-10-17 11:45 | P.CONCA_ITS ---
History of Present Illness History of Present Illness Date of Service: 10/17/22 Requesting physician: Kevin Nieto Chief complaint: Afib with rvr Narrative: 72-year-old female who has background history of atrial fibrillation and was previously on Xarelto 20 mg daily as well as atenolol 50 mg daily. She was seen in the office by Dr. Sweet recently for fatigue and was noticed to be in AFib with RVR. She was sent to the emergency department where she was diagnosed with colitis and was rate controlled in the ER and discharged home. She presented again now with weakness nausea lightheadedness and headache. She was noted to be in AFib with RVR but reverted back to sinus rhythm. She is on antibiotics for colitis. She had multiple strokes in the past and is quite limited in her day-to-day life. She previously was on Multaq but there was some concern for interstitial lung disease and it was decided to stop the Multaq. She also has coronary michell ry disease and previously had OM stenting so not a candidate for flecainide and propafenone. Given interstitial lung disease she also is not a good candidate for amiodarone. Previously QT interval was 500 and sotalol may not be a good option but we will recheck the EKG today. [facility] Past Medical History Medical History (Updated 10/17/22 @ 11:49 by Reginald Amato MD) Acute upper GI bleed Anemia Anemia Atherosclerotic cardiovascular disease Chronic heart failure with preserved ejection fraction (HFpEF) COVID-19 CVA (cerebral vascular accident) Diabetes mellitus Diabetes type 2, uncontrolled Diabetic neuropathy Diabetic polyneuropathy Dizziness Dyslipidemia Essential hypertension Falls Hand pain Head injury Headache Hospital discharge follow-up Hyperlipidemia LDL goal <70 Iron deficiency anemia Ischemic stroke Left hand pain Left hip pain Left knee pain Left shoulder pain Lumbar degenerative disc disease Mild recurrent major depression Obesity due to excess calories Other and unspecified hyperlipidemia Paroxysmal atrial fibrillation PONV (postoperative nausea and vomiting) Positive occult stool blood test Post-dural puncture headache Proteinuria Pulmonary hypertension Pure hypercholesterolemia Thiamine deficiency Thrombocytosis Thrombus 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 Urge urinary incontinence Family History Family History Father Rectal cancer Hypertension Arthritis of knee CVD (cardiovascular disease) Mother Hypertension CVD (cardiovascular disease) Myocardial infarction Diabetes Surgical History Surgical History H/O colonoscopy History of Mohs micrographic surgery for skin cancer History of partial hysterectomy Hx of cardiac cath Hx of cervical spine surgery S/P cardiac pacemaker procedure S/P insertion of spinal cord stimulator Social History Social History Household Members: Spouse Housing: Apartment Are you a primary director of healthcare systems to a significant other at home: No Alcohol intake: never Patient Tobacco Use Status: Former Tobacco user Quit Date: 1993 Tobacco use type: Cigarette e-Cigarette/Vaping Use: Never Used Second Hand Smoke Exposure: No Use of substances other than those prescribed or required for medical reasons: No Currently Displaying Signs/Symptoms of Drug Intoxication Withdrawal: No Advance Directives: Yes Advance Directives on File: Yes Advance Directives Date on File: 07/17/20 Do you have thoughts of harming others: None Do you have a plan to hurt others: No Plan Recently lost weight without trying: Yes How much weight loss: 2-13 pounds Eating poorly because of decreased appetite: No Nutrition screen score: 3 Nutrition Risks: No Nutritional Risk Patient : No service: No Current occupational status: retired Current occupation: Lt handed Cognitive needs: Yes (scodor/walker) Hearing needs: No Vision needs: Yes (glasses) Meds Allergies Allergy/AdvReac Type Severity Reaction Status Date / Time morphine [Morphine] Allergy Severe ITCHING, Verified 10/14/22 14:17 hives cefdinir Allergy Intermediate hives Verified 10/14/22 14:17 sulfamethoxazole Allergy Intermediate RASH Verified 10/14/22 14:17 trimethoprim Allergy Intermediate RASH Verified 10/14/22 14:17 duloxetine AdvReac Severe altered Verified 10/14/22 14:17 behavior betina AdvReac Mild RUNNY NOSE Verified 10/14/22 14:17 mustard AdvReac Mild RUNNY NOSE Verified 10/14/22 14:17 potato [POTATO] AdvReac Mild ITCHY NOSE Verified 10/14/22 14:17 soybean AdvReac Mild RUNNY NOSE Verified 10/14/22 14:17 cheese AdvReac Intermediate head Uncoded 10/14/22 14:17 congestion Active Medications: Current Medications Acetaminophen (Acetaminophen 325 Mg Tablet) 650 mg PO Q6H PRN PRN Reason: Pain, Mild, headache Last Admin: 10/16/22 23:18 Dose: 650 mg Amoxicillin/Clavulanate Potassium (Amoxicillin/Potassium Clav 875 Mg Tablet) 875 mg PO Q12H [facility] Last Admin: 10/17/22 06:10 Dose: Not Given Atenolol (Atenolol 50 Mg Tablet) 50 mg PO DAILY [facility]; Protocol Last Admin: 10/17/22 10:46 Dose: 50 mg Atorvastatin Calcium (Atorvastatin Calcium 80 Mg Tablet) 80 mg PO BEDTIME [facility] Last Admin: 10/16/22 21:45 Dose: 80 mg Baclofen (Baclofen 10 Mg Tablet) 10 mg PO TID PRN PRN Reason: muscle spasm Clotrimazole (Clotrimazole 1 % Cream 15 Gm Tube) 1 appl TOPICAL BID [facility] Last Admin: 10/16/22 23:19 Dose: Not Given Cyanocobalamin (Cyanocobalamin (Vitamin B-12) 1,000 Mcg Tablet) 1,000 mcg PO DAILY [facility] Last Admin: 10/17/22 10:44 Dose: 1,000 mcg Docusate Sodium (Docusate Sodium 100 Mg Capsule) 100 mg PO DAILY PRN PRN Reason: Constipation Docusate Sodium (Docusate Sodium 100 Mg Capsule) 100 mg PO BID PRN PRN Reason: constipation Empagliflozin (Empagliflozin 25 Mg Tablet) 25 mg PO DAILY [facility] Last Admin: 10/17/22 10:45 Dose: 25 mg Escitalopram Oxalate (Escitalopram Oxalate 10 Mg Tablet) 10 mg PO DAILY [facility] Last Admin: 10/17/22 10:45 Dose: 10 mg Fenofibrate (Fenofibrate 160 Mg Tablet) 160 mg PO DAILY [facility] Last Admin: 10/17/22 10:44 Dose: 160 mg Ferrous Sulfate (Ferrous Sulfate 324 Mg Tablet.Dr) 324 mg PO DAILY [facility] Last Admin: 10/17/22 10:45 Dose: 324 mg Fluticasone Propionate (Fluticasone Propionate Nasal 16 Gm Glady) 1 spray NOSTRIL-B DAILY [facility] Furosemide (Furosemide 40 Mg Tablet) 40 mg PO DAILY [facility]; Protocol Last Admin: 10/17/22 10:46 Dose: 40 mg Gabapentin (Gabapentin 600 Mg Tablet) 600 mg PO TID [facility] Last Admin: 10/17/22 10:44 Dose: 600 mg Glucose (Glucose Gel 15 Gm Gel..Gram.) 15 gm PO Q15M PRN; Protocol PRN Reason: per Hypoglycemia Standing Ord. Hydroxychloroquine Sulfate (Hydroxychloroquine Sulfate 200 Mg Tablet) 200 mg PO BID [facility] Last Admin: 10/17/22 10:46 Dose: 200 mg Dextrose (D10) 250 mls @ 750 mls/hr IV Q15M PRN; Protocol PRN Reason: per Hypoglycemia Standing Ord. Magnesium Sulfate/Dextrose (Magnesium Sulfate/D5w) 1 gm in 100 mls @ 100 mls/hr IV ONCE ONE Stop: 10/17/22 12:32 Insulin Glargine (Insulin Glargine,Hum.Rec.Anlog 100 Unit/Ml 10 Ml Vial) 5 unit SUBCUT BEDTIME [facility] Last Admin: 10/16/22 21:44 Dose: 5 unit Insulin Human Lispro (Insulin Lispro 100 Unit/Ml 3 Ml Vial) 0 unit SUBCUT QIDACHS [facility]; Protocol Last Admin: 10/17/22 10:34 Dose: Not Given Loratadine (Loratadine 10 Mg Tablet) 10 mg PO DAILY [facility] Last Admin: 10/17/22 10:46 Dose: 10 mg Losartan Potassium (Losartan Potassium 25 Mg Tablet) 25 mg PO DAILY [facility]; Protocol Last Admin: 10/17/22 10:44 Dose: 25 mg Magnesium Oxide (Magnesium Oxide 400 Mg Tablet) 200 mg PO DAILY [facility] Last Admin: 10/17/22 10:49 Dose: 200 mg Mirabegron (Mirabegron 50 Mg Tab.Er.24h) 50 mg PO DAILY [facility] Last Admin: 10/17/22 10:44 Dose: 50 mg Omeprazole (Omeprazole 40 Mg Capsule.Dr) 40 mg PO DAILY@0630 [facility] Last Admin: 10/17/22 06:10 Dose: Not Given Ondansetron HCl (Ondansetron Hcl 4 Mg/2 Ml Vial) 4 mg IVPUSH Q8H PRN PRN Reason: Nausea and Vomiting Oxycodone HCl (Oxycodone Hcl Immed Release 5 Mg Tablet) 5 mg PO Q6H PRN PRN Reason: Pain, Severe (Pain Scale 7-10) Last Admin: 10/16/22 21:44 Dose: 5 mg Pharmacy Consult (Consult Rx Perform Med Rec) 1 each MISCELLANE ONCE PRN PRN Reason: Consult order Rivaroxaban (Rivaroxaban 20 Mg Tablet) 20 mg PO DAILY@1700 [facility] Last Admin: 10/16/22 17:16 Dose: 20 mg Ropinirole HCl (Ropinirole Hcl 0.25 Mg Tablet) 0.5 mg PO BEDTIME [facility] Last Admin: 10/16/22 23:18 Dose: 0.5 mg Senna (Sennosides 8.6 Mg Tablet) 17.2 mg PO BEDTIME PRN PRN Reason: Constipation Sodium Chloride (0.9 % Sodium Chloride Flush 3 Ml Syringe) 3 ml IVFLUSH QSHIFT [facility] Last Admin: 10/17/22 11:30 Dose: 3 ml Thiamine HCl (Thiamine Hcl 100 Mg Tablet) 100 mg PO DAILY [facility] Last Admin: 10/17/22 10:44 Dose: 100 mg Trazodone HCl (Trazodone Hcl 100 Mg Tablet) 100 mg PO BEDTIME [facility] Last Admin: 10/16/22 21:45 Dose: 100 mg Vitamin D (Cholecalciferol (Vitamin D3) 25 Mcg Tablet) 25 mcg PO DAILY [facility] Last Admin: 10/17/22 10:44 Dose: 25 mcg Home Medications Medication Instructions Recorded Confirmed Last Taken Type estradiol 0.01% (0.1 mg/gram) 1 appl vaginal 3XW 11/13/21 10/16/22 07/18/22 His tory vaginal cream ropinirole 0.25 mg tablet 2 tab PO BEDTIME 11/13/21 10/16/22 07/17/22 History acetaminophen 325 mg tablet 650 mg PO Q6H PRN Pain (Scale 07/18/22 10/16/22 Unknown History Score 1-3) baclofen 10 mg tablet 10 mg PO TID PRN muscle spasm 07/18/22 10/16/22 07/18/22 History dulaglutide 3 mg/0.5 mL 3 mg subcut TH@0900 07/18/22 10/17/22 07/11/22 History subcutaneous pen injector (Trulicity) insulin degludec 100 unit/mL (3 0 - 10 unit subcut BEDTIME 07/18/22 10/16/22 07/17/22 History mL) subcutaneous pen (Tresiba FlexTouch U-100 insulin) rivaroxaban 20 mg tablet (Xarelto) 20 mg PO DAILY@1700 07/18/22 10/16/22 07/17/22 History sennosides 8.6 mg tablet (senna) 17.2 mg PO BEDTIME PRN Constipation 07/18/22 10/16/22 Unknown History furosemide 40 mg tablet 40 mg PO DAILY 10/16/22 10/16/22 Unknown History Physical Exam Vital Signs: Vital Signs: Last Vital Signs Temp 97.7 F 10/17/22 11:14 Pulse 71 10/17/22 11:14 Resp 16 10/17/22 11:14 BP 141/65 H 10/17/22 11:14 Pulse Ox 97 10/17/22 11:14 O2 Del Method Room Air 10/17/22 11:14 BMI result Body Mass Index 36.2 GENERAL APPEARANCE: in no acute distress, pleasant. NECK: no carotid bruit, no jugular venous distention. SKIN: no suspicious lesions, warm and dry. HEART: no murmurs, regular rate and rhythm. LUNGS: Crackles at bases. ABDOMEN: soft, nontender. EXTREMITIES: no edema. PERIPHERAL PULSES: equal. Objective Labs and Meds 10/17/22 06:34 10/17/22 06:34 Lab results: Laboratory Results - last 24 hr 10/16/22 10/16/22 10/16/22 13:40 13:40 13:40 WBC 6.4 RBC 4.55 Hgb 12.1 Hct 37.5 MCV 82.4 MCH 26.6 L MCHC 32.3 RDW 16.7 H Plt Count 382 MPV 8.8 L Immature Gran % (Auto) 0.3 Neut % (Auto) 70.2 Lymph % (Auto) 15.1 L [place] % (Auto) 11.0 Eos % (Auto) 2.5 Baso % (Auto) 0.9 Lymph # (Auto) 1.0 L [place] # (Auto) 0.7 Eos # (Auto) 0.2 Baso # (Auto) 0.1 Abs Immat Gran (auto) 0.02 Absolute Neuts (auto) 4.5 Absolute Nucleated RBC 0.000 Nucleated RBC % (auto) 0.0 PT 13.8 H INR 1.2 H APTT 40.6 H Sodium 136 Potassium 4.0 Chloride 103 Carbon Dioxide 21 L Anion Gap 16 BUN 14 Creatinine 0.88 Estim Creat Clear Calc 61.5 Estimated GFR > 60 POC Glucose Random Glucose 116 H Calcium 9.6 Magnesium 2.1 Total Bilirubin 0.6 AST 22 ALT 11 Alkaline Phosphatase 52 Troponin I High Sens B-Natriuretic Peptide Total Protein 6.7 Albumin 3.8 Lipase 18 10/16/22 10/16/22 10/16/22 13:40 13:40 21:34 WBC RBC Hgb Hct MCV MCH MCHC RDW Plt Count MPV Immature Gran % (Auto) Neut % (Auto) Lymph % (Auto) [place] % (Auto) Eos % (Auto) Baso % (Auto) Lymph # (Auto) [place] # (Auto) Eos # (Auto) Baso # (Auto) Abs Immat Gran (auto) Absolute Neuts (auto) Absolute Nucleated RBC Nucleated RBC % (auto) PT INR APTT Sodium Potassium Chloride Carbon Dioxide Anion Gap BUN Creatinine Estim Creat Clear Calc Estimated GFR POC Glucose 162 H Random Glucose Calcium Magnesium Total Bilirubin AST ALT Alkaline Phosphatase Troponin I High Sens 11.6 D B-Natriuretic Peptide 455 H Total Protein Albumin Lipase 10/17/22 10/17/22 10/17/22 06:34 06:34 07:12 WBC 6.5 RBC 4.32 Hgb 11.4 L Hct 35.5 L MCV 82.2 MCH 26.4 L MCHC 32.1 RDW 16.8 H Plt Count 357 MPV 8.9 L Immature Gran % (Auto) 0.6 H Neut % (Auto) 52.9 Lymph % (Auto) 25.5 [place] % (Auto) 13.0 H Eos % (Auto) 6.6 H Baso % (Auto) 1.4 Lymph # (Auto) 1.7 [place] # (Auto) 0.9 Eos # (Auto) 0.4 Baso # (Auto) 0.1 Abs Immat Gran (auto) 0.04 H Absolute Neuts (auto) 3.5 Absolute Nucleated RBC 0.000 Nucleated RBC % (auto) 0.0 PT INR APTT Sodium 135 Potassium 3.5 Chloride 102 Carbon Dioxide 24 Anion Gap 13 BUN 21 H Creatinine 1.04 Estim Creat Clear Calc 51.3 Estimated GFR 52 POC Glucose 102 Random Glucose 101 Calcium 9.3 Magnesium Total Bilirubin AST ALT Alkaline Phosphatase Troponin I High Sens B-Natriuretic Peptide Total Protein Albumin Lipase 10/17/22 11:07 WBC RBC Hgb Hct MCV MCH MCHC RDW Plt Count MPV Immature Gran % (Auto) Neut % (Auto) Lymph % (Auto) [place] % (Auto) Eos % (Auto) Baso % (Auto) Lymph # (Auto) [place] # (Auto) Eos # (Auto) Baso # (Auto) Abs Immat Gran (auto) Absolute Neuts (auto) Absolute Nucleated RBC Nucleated RBC % (auto) PT INR APTT Sodium Potassium Chloride Carbon Dioxide Anion Gap BUN Creatinine Estim Creat Clear Calc Estimated GFR POC Glucose 114 Random Glucose Calcium Magnesium Total Bilirubin AST ALT Alkaline Phosphatase Troponin I High Sens B-Natriuretic Peptide Total Protein Albumin Lipase Imaging Radiologist's impression: Impressions Chest X-Ray 10/16/22 13:05 IMPRESSION: Unremarkable examination. Assessment and Plan (1) Paroxysmal atrial fibrillation: Status: Acute Plan Pleasant 72-year-old female with paroxysmal atrial fibrillation in the setting of colitis. She is on antibiotics at this stage. She came with atrial fibrillation and reverted to atrial paced rhythm at this stage. She is complaining of some headache but otherwise denying any palpitations or chest discomfort. Does not appear to be in congestive heart failure. We discussed that she has atrial fibrillation in the setting of colitis which is not unusual because infections can trigger or decrease the threshold for atrial fibrillation. We will check EKG to see QTC. If it is prolonged and she is not a good candidate for sotalol and in that case I think options will be to increase atenolol to 50 mg twice a day. We will follow along with you. Thank you for allowing me to participate in the care of your patient. Please feel free to contact me if you have any questions. Time Spent With Patient Time: Total time managing care of this patient today ____ minutes. Procedures Date of Service Date of Service: 10/17/22
--- NOTE | 2022-10-17 14:39 | HO.PM.IMPN ---
Subjective Subjective Date of Service: 10/17/22 Interval History: No acute issues overnight. Mild headache this a.m. Review of Systems Denies chest pain Denies shortness of breath Denies nausea vomiting diarrhea Denies fever chills Physical Exam Vital Signs: Vital Signs: Last Vital Signs Temp 97.7 F 10/17/22 11:14 Pulse 71 10/17/22 11:14 Resp 16 10/17/22 11:14 BP 141/65 H 10/17/22 11:14 Pulse Ox 97 10/17/22 11:14 O2 Del Method Room Air 10/17/22 11:14 BMI result Body Mass Index 36.2 Const: Other: Awake alert no acute distress Resp: Other: Clear to auscultation bilaterally no rales rhonchi or wheezes Cardio: Other: A paced by monitor. No S4; positive S1-S2; no S3 murmurs rubs or gallops GI: Other: Soft nontender nondistended normoactive bowel sounds Neuro: Other: Cranial nerves 2-12 grossly intact as tested. Motor is 5/5 all extremities. Sensation is intact. Cognition appropriate Extrem: Other: Trace edema bilaterally Objective Data Active Medications Acetaminophen (Acetaminophen 325 Mg Tablet) 650 mg PO Q6H PRN PRN Reason: Pain, Mild, headache Last Admin: 10/16/22 23:18 Dose: 650 mg Documented By: ABDULAZIZ Acetaminophen/Butalbital/Caffeine (Butalb/Acetamin/Caff 50/325/40 Tablet) 1 tab PO Q4H PRN PRN Reason: Headache Amoxicillin/Clavulanate Potassium (Amoxicillin/Potassium Clav 875 Mg Tablet) 875 mg PO Q12H [facility] Last Admin: 10/17/22 06:10 Dose: Not Given Documented By: LUCI Non-Admin Reason: NPO Atenolol (Atenolol 50 Mg Tablet) 50 mg PO BID [facility]; Protocol Atorvastatin Calcium (Atorvastatin Calcium 80 Mg Tablet) 80 mg PO BEDTIME [facility] Last Admin: 10/16/22 21:45 Dose: 80 mg Documented By: ZAN Baclofen (Baclofen 10 Mg Tablet) 10 mg PO TID PRN PRN Reason: muscle spasm Clotrimazole (Clotrimazole 1 % Cream 15 Gm Tube) 1 appl TOPICAL BID [facility] Last Admin: 10/16/22 23:19 Dose: Not Given Documented By: ABDULAZIZ Non-Admin Reason: Med Not Available Cyanocobalamin (Cyanocobalamin (Vitamin B-12) 1,000 Mcg Tablet) 1,000 mcg PO DAILY [facility] Last Admin: 10/17/22 10:44 Dose: 1,000 mcg Documented By: MARILYNN Docusate Sodium (Docusate Sodium 100 Mg Capsule) 100 mg PO DAILY PRN PRN Reason: Constipation Docusate Sodium (Docusate Sodium 100 Mg Capsule) 100 mg PO BID PRN PRN Reason: constipation Empagliflozin (Empagliflozin 25 Mg Tablet) 25 mg PO DAILY [facility] Last Admin: 10/17/22 10:45 Dose: 25 mg Documented By: MARILYNN Escitalopram Oxalate (Escitalopram Oxalate 10 Mg Tablet) 10 mg PO DAILY [facility] Last Admin: 10/17/22 10:45 Dose: 10 mg Documented By: MARILYNN Fenofibrate (Fenofibrate 160 Mg Tablet) 160 mg PO DAILY [facility] Last Admin: 10/17/22 10:44 Dose: 160 mg Documented By: MARILYNN Ferrous Sulfate (Ferrous Sulfate 324 Mg Tablet.Dr) 324 mg PO DAILY [facility] Last Admin: 10/17/22 10:45 Dose: 324 mg Documented By: MARILYNN Fluticasone Propionate (Fluticasone Propionate Nasal 16 Gm [place]) 1 spray NOSTRIL-B DAILY [facility] Furosemide (Furosemide 40 Mg Tablet) 40 mg PO DAILY [facility]; Protocol Last Admin: 10/17/22 10:46 Dose: 40 mg Documented By: MARILYNN Gabapentin (Gabapentin 600 Mg Tablet) 600 mg PO TID [facility] Last Admin: 10/17/22 10:44 Dose: 600 mg Documented By: MARILYNN Glucose (Glucose Gel 15 Gm Gel..Gram.) 15 gm PO Q15M PRN; Protocol PRN Reason: per Hypoglycemia Standing Ord. Hydroxychloroquine Sulfate (Hydroxychloroquine Sulfate 200 Mg Tablet) 200 mg PO BID [facility] Last Admin: 10/17/22 10:46 Dose: 200 mg Documented By: MARILYNN Dextrose (D10) 250 mls @ 750 mls/hr IV Q15M PRN; Protocol PRN Reason: per Hypoglycemia Standing Ord. Insulin Glargine (Insulin Glargine,Hum.Rec.Anlog 100 Unit/Ml 10 Ml Vial) 5 unit SUBCUT BEDTIME [facility] Last Admin: 10/16/22 21:44 Dose: 5 unit Documented By: ZAN Insulin Human Lispro (Insulin Lispro 100 Unit/Ml 3 Ml Vial) 0 unit SUBCUT QIDACHS [facility]; Protocol Last Admin: 10/17/22 10:34 Dose: Not Given Documented By: MARILYNN Non-Admin Reason: No Insulin Coverage Loratadine (Loratadine 10 Mg Tablet) 10 mg PO DAILY [facility] Last Admin: 10/17/22 10:46 Dose: 10 mg Documented By: MARILYNN Losartan Potassium (Losartan Potassium 25 Mg Tablet) 25 mg PO DAILY [facility]; Protocol Last Admin: 10/17/22 10:44 Dose: 25 mg Documented By: MARILYNN Magnesium Oxide (Magnesium Oxide 400 Mg Tablet) 200 mg PO DAILY [facility] Last Admin: 10/17/22 10:49 Dose: 200 mg Documented By: MARILYNN Mirabegron (Mirabegron 50 Mg Tab.Er.24h) 50 mg PO DAILY [facility] Last Admin: 10/17/22 10:44 Dose: 50 mg Documented By: MARILYNN Omeprazole (Omeprazole 40 Mg Capsule.Dr) 40 mg PO DAILY@0630 [facility] Last Admin: 10/17/22 06:10 Dose: Not Given Documented By: LUCI Non-Admin Reason: NPO Ondansetron HCl (Ondansetron Hcl 4 Mg/2 Ml Vial) 4 mg IVPUSH Q8H PRN PRN Reason: Nausea and Vomiting Oxycodone HCl (Oxycodone Hcl Immed Release 5 Mg Tablet) 5 mg PO Q6H PRN PRN Reason: Pain, Severe (Pain Scale 7-10) Last Admin: 10/16/22 21:44 Dose: 5 mg Documented By: ZAN Pharmacy Consult (Consult Rx Perform Med Rec) 1 each MISCELLANE ONCE PRN PRN Reason: Consult order Rivaroxaban (Rivaroxaban 20 Mg Tablet) 20 mg PO DAILY@1700 [facility] Last Admin: 10/16/22 17:16 Dose: 20 mg Documented By: MARITA Ropinirole HCl (Ropinirole Hcl 0.25 Mg Tablet) 0.5 mg PO BEDTIME [facility] Last Admin: 10/16/22 23:18 Dose: 0.5 mg Documented By: ABDULAZIZ Senna (Sennosides 8.6 Mg Tablet) 17.2 mg PO BEDTIME PRN PRN Reason: Constipation Sodium Chloride (0.9 % Sodium Chloride Flush 3 Ml Syringe) 3 ml IVFLUSH QSHIFT [facility] Last Admin: 10/17/22 11:30 Dose: 3 ml Documented By: MARILYNN Thiamine HCl (Thiamine Hcl 100 Mg Tablet) 100 mg PO DAILY [facility] Last Admin: 10/17/22 10:44 Dose: 100 mg Documented By: MARILYNN Trazodone HCl (Trazodone Hcl 100 Mg Tablet) 100 mg PO BEDTIME [facility] Last Admin: 10/16/22 21:45 Dose: 100 mg Documented By: ZAN Vitamin D (Cholecalciferol (Vitamin D3) 25 Mcg Tablet) 25 mcg PO DAILY [facility] Last Admin: 10/17/22 10:44 Dose: 25 mcg Documented By: MARILYNN Labs 10/17/22 06:34 10/17/22 06:34 Labs: Laboratory Results - last 24 hr 10/16/22 10/17/22 10/17/22 21:34 06:34 06:34 MCV 82.2 MCH 26.4 L MCHC 32.1 RDW 16.8 H Plt Count 357 MPV 8.9 L Immature Gran % (Auto) 0.6 H Neut % (Auto) 52.9 Lymph % (Auto) 25.5 [place] % (Auto) 13.0 H Eos % (Auto) 6.6 H Baso % (Auto) 1.4 Lymph # (Auto) 1.7 [place] # (Auto) 0.9 Eos # (Auto) 0.4 Baso # (Auto) 0.1 Abs Immat Gran (auto) 0.04 H Absolute Neuts (auto) 3.5 Absolute Nucleated RBC 0.000 Nucleated RBC % (auto) 0.0 Anion Gap 13 Estim Creat Clear Calc 51.3 Estimated GFR 52 POC Glucose 162 H Random Glucose 101 Calcium 9.3 10/17/22 10/17/22 07:12 11:07 MCV MCH MCHC RDW Plt Count MPV Immature Gran % (Auto) Neut % (Auto) Lymph % (Auto) [place] % (Auto) Eos % (Auto) Baso % (Auto) Lymph # (Auto) [place] # (Auto) Eos # (Auto) Baso # (Auto) Abs Immat Gran (auto) Absolute Neuts (auto) Absolute Nucleated RBC Nucleated RBC % (auto) Anion Gap Estim Creat Clear Calc Estimated GFR POC Glucose 102 114 Random Glucose Calcium Assessment and Plan (1) Atrial fibrillation with rapid ventricular response: Status: Acute (2) (HFpEF) heart failure with preserved ejection fraction: Status: Acute (3) Colitis: Status: Inactive Plan 72-year-old female with pertinent history of insulin-dependent diabetes mellitus, essential hypertension, paroxysmal atrial fibrillation on Xarelto, CAD, mood disorder, HFpEF, history of CVA admitted for further management of AFib with RVR. 1.Atrial fibrillation with RVR.. Currently atrial paced sinus -acceptable rate control -QTC prolonged from previous EKG.. Will increase atenolol to 50 b.i.d. as per Cardiology -continue Xarelto for anticoagulation 2.Infectious colitis -complete 10 day course of Augmentin (10/24) 3.HFpEF -no acute exacerbation, euvolemic on exam -continue oral Lasix 40 mg daily, Jardiance 4.Iinsulin-dependent type 2 diabetes -acceptable control on current therapies lispro correctional scale 5.Hypertension -acceptable control -adjust as indicated Xarelto Full code Requires ongoing hospitalization for monitoring of rate control with med changes Time Spent With Patient Time: Total time managing care of this patient today ____ minutes. Quality Stroke Does the patient have a stroke diagnosis?: No VTE Prior VTE?: No VTE Risk Level:: Medical - moderate - high VTE Device Contraindication: Treatment Not Indicated VTE Drug Contraindication: N/A - Med Ordered
[2022-10-17] MEDS: Fluticasone Propionate Nasal 16 GM SPRAY 1 SPRAY NOSTRIL-B (14:52)
[2022-10-17] MEDS: Potassium Chloride ER 20 MEQ TAB.ER.PRT 40 MEQ PO (14:52)
[2022-10-17] MEDS: Magnesium Sulfate/D5W 1 GM/100 ML PIGGYBACK IV (14:52)
[2022-10-17] MEDS: Clotrimazole 1 % Cream 15 GM TUBE 1 APPL TOPICAL ×2 (14:52→20:50)
[2022-10-17] MEDS: Rivaroxaban 20 MG TABLET PO (16:37)
[2022-10-17] MEDS: Amoxicillin/Potassium Clav 875 MG TABLET PO (16:37)
[2022-10-17] MEDS: Butalb/Acetamin/Caff 50/325/40 TABLET 1 TAB PO (16:37)
[2022-10-17 16:40] LABS: Glucose, Whole Blood 169 mg/dL (60-115)
[2022-10-17] MEDS: Insulin Lispro 100 UNIT/ML 3 ML VIAL SUBCUT (16:43)
[2022-10-17 20:01] LABS: Glucose, Whole Blood 121 mg/dL (60-115)
[2022-10-17] MEDS: rOPINIRole HCL 0.25 MG TABLET 0.5 MG PO (20:50)
[2022-10-17] MEDS: Atorvastatin Calcium 80 MG TABLET PO (20:50)
[2022-10-17] MEDS: traZODone HCL 100 MG TABLET PO (20:50)
[2022-10-17] MEDS: Insulin Glargine,Hum.rec.anlog 100 UNIT/ML 10 ML VIAL SUBCUT (20:53)
[2022-10-18] MEDS: guaiFEN/Codeine SF 200/20/10ML 10 ML LIQUID 5 ML PO (00:39)
--- NOTE | 2022-10-18 01:22 | PC.NURSE ---
Pt A&Ox3. No c/o pain or discomfort. No s/sx respiratory distress. Wearing CPAP overnight for [place]. Pt coughing while laying in bed. Cross coverage notified and ordered PRN Tussin/Codeine. Given with good effect. A-Paced on director risk. Call short within reach.
[2022-10-18 03:41] VITALS: BP 124/57; PULSE 70; RESP 18; TEMP 36.1; O2SAT 94
[2022-10-18 04:33] VITALS: RESP 18
[2022-10-18] MEDS: Omeprazole 40 MG CAPSULE.DR PO (05:38)
[2022-10-18] MEDS: Amoxicillin/Potassium Clav 875 MG TABLET PO (05:38)
[2022-10-18 06:29] LABS: MANUAL DIFF FLAG NO
[2022-10-18 06:32] LABS: Basophils Absolute Auto 0.1 X10*3/uL (0.0-0.2); Basophils Percent Auto 1.7 % (0-2); Eosinophils Absolute Auto 0.5 X10*3/uL (0.0-0.4); Eosinophils Percent Auto 7.3 % (0-4); Hematocrit 37.5 % (37.0-47.0); Imm Gran Abs Auto 0.04 X10*3/uL (0.00-0.03); Imm Gran Pct Auto 0.6 % (0.0-0.4); Lymphocytes Absolute Auto 1.9 X10*3/uL (1.2-4.9); Lymphocytes Percent Auto 30.4 % (20-40); Mean Corpuscular Hemoglobin 26.1 pg (27.0-33.0); Mean Corpuscular Volume 81.5 fL (80.0-98.0); Mean Platelet Volume 8.7 fL (9.4-12.3); Monocytes Absolute Auto 0.7 X10*3/uL (0.1-1.2); Monocytes Percent Auto 11.4 % (2-11); Neutrophils Absolute Auto 3.1 x10*3/uL (2.0-8.3); Neutrophils Percent Auto 48.6 % (45-73); Platelet Count 393 X10*3/uL (160-400); Red Cell Distribution Width 16.7 % (11.0-16.0); White Blood Count 6.3 X10*3/uL (4.8-10.8)
[2022-10-18 07:02] LABS: Alanine Aminotransferase 11 U/L (0-31); Albumin Level 3.6 g/dL (3.5-5.0); Alkaline Phosphatase 47 U/L (39-117); Anion Gap 15 (12-20); Aspartate Amino Transferase 18 U/L (5-31); Bilirubin Total 0.5 mg/dL (0.0-1.0); Blood Urea Nitrogen 31 mg/dL (9-16); Calcium 9.5 mg/dL (8.4-10.2); Carbon Dioxide 23 mmol/L (22-29); Chloride 101 mmol/L (96-108); Estimated Glomerular Filt Rate 49; Glucose Fasting 134 mg/dL (60-99); Sodium 135 mmol/L (135-145); Total Protein 6.1 g/dL (6.5-8.0)
[2022-10-18 07:42] LABS: Glucose, Whole Blood 129 mg/dL (60-115)
[2022-10-18 07:47] VITALS: BP 139/61; PULSE 70; RESP 16; TEMP 36; O2SAT 96
[2022-10-18] MEDS: Gabapentin 600 MG TABLET PO (08:51)
[2022-10-18] MEDS: Cholecalciferol (Vitamin D3) 25 MCG TABLET PO (08:51)
[2022-10-18] MEDS: Empagliflozin 25 MG TABLET PO (08:51)
[2022-10-18] MEDS: Fenofibrate 160 MG TABLET PO (08:51)
[2022-10-18] MEDS: Ferrous Sulfate 324 MG TABLET.DR PO (08:52)
[2022-10-18] MEDS: Cyanocobalamin (Vitamin B-12) 1,000 MCG TABLET 1000 MCG PO (08:52)
[2022-10-18] MEDS: Loratadine 10 MG TABLET PO (08:52)
[2022-10-18] MEDS: atenoloL 50 MG TABLET PO (08:52)
[2022-10-18] MEDS: Magnesium Oxide 400 MG TABLET 200 MG PO (08:52)
[2022-10-18] MEDS: Hydroxychloroquine Sulfate 200 MG TABLET PO (08:52)
[2022-10-18] MEDS: Thiamine HCL 100 MG TABLET PO (08:52)
[2022-10-18] MEDS: Mirabegron 50 MG TAB.ER.24H PO (08:52)
[2022-10-18] MEDS: Losartan Potassium 25 MG TABLET PO (08:52)
[2022-10-18] MEDS: Furosemide 40 MG TABLET PO (08:53)
[2022-10-18] MEDS: Escitalopram Oxalate 10 MG TABLET PO (08:53)
[2022-10-18] MEDS: 0.9 % Sodium Chloride Flush 3 ML SYRINGE IVFLUSH (08:53)
[2022-10-18] MEDS: Clotrimazole 1 % Cream 15 GM TUBE 1 APPL TOPICAL (09:03)
[2022-10-18] MEDS: Fluticasone Propionate Nasal 16 GM SPRAY 1 SPRAY NOSTRIL-B (09:04)
[2022-10-18 10:00] VITALS: BP 139/61; PULSE 70; O2SAT 96
[2022-10-18 11:33] VITALS: BP 107/54; PULSE 70; RESP 14; TEMP 36.3; O2SAT 97
--- NOTE | 2022-10-18 11:39 | P.PNCA_ITS ---
Subjective Subjective Date of Service: 10/18/22 Interval history: Seen and examined at bedside. Feeling better. Telemetry has shown atrial paced rhythm. Physical Exam Vital Signs: Last Vital Signs Temp 97.4 F 10/18/22 11:33 Pulse 70 10/18/22 11:33 Resp 14 10/18/22 11:33 BP 107/54 L 10/18/22 11:33 Pulse Ox 97 10/18/22 11:33 O2 Del Method Room Air 10/18/22 11:33 BMI result Body Mass Index 36.2 GENERAL APPEARANCE: in no acute distress, pleasant. NECK: no carotid bruit, no jugular venous distention. SKIN: no suspicious lesions, warm and dry. HEART: no murmurs, regular rate and rhythm. LUNGS: Crackles at bases. ABDOMEN: soft, nontender. EXTREMITIES: no edema. PERIPHERAL PULSES: equal. Objective Labs and Meds 10/18/22 06:12 10/18/22 06:12 Lab results: Laboratory Results - last 24 hr 10/17/22 10/17/22 10/18/22 16:34 19:53 06:12 WBC 6.3 RBC 4.60 Hgb 12.0 Hct 37.5 MCV 81.5 MCH 26.1 L MCHC 32.0 RDW 16.7 H Plt Count 393 MPV 8.7 L Immature Gran % (Auto) 0.6 H Neut % (Auto) 48.6 Lymph % (Auto) 30.4 [place] % (Auto) 11.4 H Eos % (Auto) 7.3 H Baso % (Auto) 1.7 Lymph # (Auto) 1.9 [place] # (Auto) 0.7 Eos # (Auto) 0.5 H Baso # (Auto) 0.1 Abs Immat Gran (auto) 0.04 H Absolute Neuts (auto) 3.1 Absolute Nucleated RBC 0.000 Nucleated RBC % (auto) 0.0 Sodium Potassium Chloride Carbon Dioxide Anion Gap BUN Creatinine Estim Creat Clear Calc Estimated GFR POC Glucose 169 H 121 H Fasting Glucose Calcium Total Bilirubin AST ALT Alkaline Phosphatase Total Protein Albumin 10/18/22 10/18/22 06:12 07:24 WBC RBC Hgb Hct MCV MCH MCHC RDW Plt Count MPV Immature Gran % (Auto) Neut % (Auto) Lymph % (Auto) [place] % (Auto) Eos % (Auto) Baso % (Auto) Lymph # (Auto) [place] # (Auto) Eos # (Auto) Baso # (Auto) Abs Immat Gran (auto) Absolute Neuts (auto) Absolute Nucleated RBC Nucleated RBC % (auto) Sodium 135 Potassium 4.0 Chloride 101 Carbon Dioxide 23 Anion Gap 15 BUN 31 H Creatinine 1.09 Estim Creat Clear Calc 49.0 Estimated GFR 49 POC Glucose 129 H Fasting Glucose 134 H Calcium 9.5 Total Bilirubin 0.5 AST 18 ALT 11 Alkaline Phosphatase 47 Total Protein 6.1 L Albumin 3.6 Progress Note: A&P Assessment and plan (1) Paroxysmal atrial fibrillation: Status: Acute Plan Pleasant 72 year female with paroxysmal atrial fibrillation in the setting of colitis. She is feeling better with antibiotics and is back in paced rhythm. Telemetry has not shown further atrial fibrillation. Plan was to give her sotalol but unfortunately had QTC is more than 450 at baseline. Cannot get amiodarone or Multaq due to previous interstitial lung disease like changes. Has previous coronary disease so propafenone and flecainide cannot be used. We have increased the atenolol to 50 mg twice a day. She is feeling better and has not had further AFib. I think she can be discharged home. Follow-up with Dr. Sweet. Time Spent With Patient Time: Total time managing care of this patient today ____ minutes. Progress Note: Quality Stroke Does the patient have a stroke diagnosis?: No Procedures Date of Service Date of Service: 10/18/22
[2022-10-18 11:54] LABS: Glucose, Whole Blood 130 mg/dL (60-115)
--- NOTE | 2022-10-18 13:06 | PM.DS ---
DS: Providers Provider Date of Service: 10/18/22 Date of admission: 10/16/22 16:22 Primary care physician: Marla Bray MD Consults: 10/16/22 18:15 Consult to Cardiology Routine Consulting Provider: [facility] [facility] Reason for consultation: afib rvr DS: Diagnosis Discharge Diagnosis (1) Paroxysmal atrial fibrillation: Status: Acute DS: Summary Hospital Course Hospital Course: 2-year-old female with pertinent history of insulin-dependent diabetes mellitus, essential hypertension, paroxysmal atrial fibrillation on Xarelto, CAD, mood disorder, HFpEF, history of CVA?presented to the ED earlier today for evaluation of lightheadedness and weakness ongoing for about 2 weeks. She was seen in the ED on 10/14 and diagnosed with Afib RVR and colitis. Rate was controlled by discharge and she was given flagyl and cipro to treat the colitis. Her diarrhea has resolved, but still reports weakness, lightheadedness, migraine, malaise. Also has productive cough. Had pacemaker placed during recent admission 2 months ago with some ongoing stinging pain over the device. No retrosternal chest pain, sob, orthopnea, geronimo, abd pain, vomiting, dysuria, hematuria, melena, hematochezia, fevers, or chills.? On arrival, vitals stable.? However did develop AFib with RVR with rates ranging 100-136.? EKG showed accelerated junctional rhythm, rate 70 with prolonged QTC of 501, no ST/T-wave abnormality.? There is no leukocytosis.? Renal function baseline, electrolyte levels normal, troponin within normal limits, BNP 455.? She does tell me that her VNA is no longer giving her the oral Lasix that was prescribed but is unsure of the reason.? In the ED has been treated with diltiazem 20 mg IV push and was started on Cardizem drip with improvement in heart rate to 70. Hospital Course Initially admitted to telemetry with Cardizem drip; spontaneously converted back to sinus rhythm. Seen in consultation by Cardiology who considered adding sotalol however QTC was prolonged. At this time cardiology's recommendation is to increase atenolol to twice daily. Patient remained in sinus rhythm on on day of discharge was comfortable without issues. At this time she is medically acceptable for discharge home resume all previous therapies and increase atenolol to b.i.d. Time Spent with Patient Time attestation: Total time managing care of this patient today ____ minutes. Discharge coordination time: Greater than 30 minutes Quality: Safe Use of Opioids Does Pt have an Active Cancer Diagnosis on the Problem List?: No Quality: Stroke Does the patient have a stroke diagnosis?: No Physical Exam Vital Signs: Vital Signs: Last Vital Signs Temp 97.4 F 10/18/22 11:33 Pulse 70 10/18/22 11:33 Resp 14 10/18/22 11:33 BP 107/54 L 10/18/22 11:33 Pulse Ox 97 10/18/22 11:33 O2 Del Method Room Air 10/18/22 11:33 BMI result Body Mass Index 36.2 Const: Other: Awake alert no acute distress Resp: Other: Clear to auscultation bilaterally no rales rhonchi or wheezes Cardio: Other: A paced by monitor. No S4; positive S1-S2; no S3 murmurs rubs or gallops GI: Other: Soft nontender nondistended normoactive bowel sounds Neuro: Other: Cranial nerves 2-12 grossly intact as tested. Motor is 5/5 all extremities. Sensation is intact. Cognition appropriate Extrem: Other: Trace edema bilaterally DS: Data Data Completed and Pending Completed studies during hospitalization [Text1]: Procedures Insertion of Pacemaker Lead into Right Atrium, Percutaneous Approach (08/23/22) Insertion of Pacemaker Lead into Right Ventricle, Percutaneous Approach (08/23/22) Insertion of Pacemaker, Dual Chamber into Chest Subcutaneous Tissue and Fascia, Open Approach (08/23/22) Labs on day of discharge: Laboratory Results - last 24 hr 10/17/22 10/17/22 10/18/22 16:34 19:53 06:12 WBC 6.3 RBC 4.60 Hgb 12.0 Hct 37.5 MCV 81.5 MCH 26.1 L MCHC 32.0 RDW 16.7 H Plt Count 393 MPV 8.7 L Immature Gran % (Auto) 0.6 H Neut % (Auto) 48.6 Lymph % (Auto) 30.4 [place] % (Auto) 11.4 H Eos % (Auto) 7.3 H Baso % (Auto) 1.7 Lymph # (Auto) 1.9 [place] # (Auto) 0.7 Eos # (Auto) 0.5 H Baso # (Auto) 0.1 Abs Immat Gran (auto) 0.04 H Absolute Neuts (auto) 3.1 Absolute Nucleated RBC 0.000 Nucleated RBC % (auto) 0.0 Sodium Potassium Chloride Carbon Dioxide Anion Gap BUN Creatinine Estim Creat Clear Calc Estimated GFR POC Glucose 169 H 121 H Fasting Glucose Calcium Total Bilirubin AST ALT Alkaline Phosphatase Total Protein Albumin 10/18/22 10/18/22 10/18/22 06:12 07:24 11:41 WBC RBC Hgb Hct MCV MCH MCHC RDW Plt Count MPV Immature Gran % (Auto) Neut % (Auto) Lymph % (Auto) [place] % (Auto) Eos % (Auto) Baso % (Auto) Lymph # (Auto) [place] # (Auto) Eos # (Auto) Baso # (Auto) Abs Immat Gran (auto) Absolute Neuts (auto) Absolute Nucleated RBC Nucleated RBC % (auto) Sodium 135 Potassium 4.0 Chloride 101 Carbon Dioxide 23 Anion Gap 15 BUN 31 H Creatinine 1.09 Estim Creat Clear Calc 49.0 Estimated GFR 49 POC Glucose 129 H 130 H Fasting Glucose 134 H Calcium 9.5 Total Bilirubin 0.5 AST 18 ALT 11 Alkaline Phosphatase 47 Total Protein 6.1 L Albumin 3.6 Discharge Plan Discharge Anticipated Discharge Date/Time: 10/18/22 13:00 Patient Disposition: Home Health Service Discharge Diagnosis: Atrial fibrillation with rapid ventricular response Referrals: [facility] [Outside] - 1 Day (RESUMPTION OF CARE) Marla Henderson MD [Primary Care Provider] - 1 Week Discharge Medications: New hzjkpzwxko-zrdnlpfavxlsa-jwlm 50-325-40 mg Tablet 1 tab PO Q4H PRN (Reason: Headache) Qty: 30 0RF atenolol 50 mg Tablet 50 mg PO BID Qty: 60 0RF Protocol: Hold for SBP/HR < HOLD for SBP < : 90 HOLD for HR < : 60 codeine-guaifenesin 10-100 mg/5 mL Liquid 5 ml PO Q6H PRN (Reason: Cough) Qty: 180 0RF Continued fenofibrate 160 mg tablet 160 mg PO DAILY 90 Days Qty: 90 3RF loratadine 10 mg tablet 10 mg PO DAILY 90 Days Qty: 90 0RF thiamine HCl (vitamin B1) 100 mg tablet 100 mg PO DAILY 90 Days Qty: 90 1RF hydroxychloroquine [Plaquenil] 200 mg tablet 200 mg PO BID Qty: 180 3RF ferrous sulfate 325 mg (65 mg iron) tablet 325 mg PO DAILY 90 Days Qty: 90 1RF fluticasone propionate 50 mcg/actuation spray,suspension 1 spray intranasal DAILY 90 Days Qty: 16 3RF Rx Instructions: administer into each nostril Myrbetriq 50 mg tablet extended release 24 hr 50 mg PO DAILY 90 Days Qty: 90 1RF (DME) blood-glucose meter [OneTouch Verio Meter] [facility] [place] See Rx Instructions .Route Qty: 1 0RF Rx Instructions: As directed (DME) OneTouch Verio test strips Strip See Rx Instructions .Route Qty: 100 5RF Rx Instructions: Use 1 test strip twice a day ([facility] [place]) lancets [Splice MachineTouch UltraSoft Lancets] [facility] [place] See Rx Instructions .Route Qty: 100 3RF Rx Instructions: USe 1 lancet once a day cholecalciferol (vitamin D3) 50 mcg (2,000 unit) tablet 2,000 unit PO DAILY 90 Days Qty: 90 3RF cyanocobalamin (vitamin B-12) 1,000 mcg tablet 1,000 mcg PO DAILY 90 Days Qty: 90 3RF gabapentin 600 mg tablet 600 mg PO TID 90 Days Qty: 270 1RF docusate sodium [DOK] 100 mg capsule 100 mg PO BID PRN (Reason: constipation) 90 Days Qty: 180 2RF Jardiance 25 mg tablet 25 mg PO DAILY 90 Days Qty: 90 3RF magnesium 200 mg tablet 200 mg PO DAILY 90 Days Qty: 90 5RF trazodone 100 mg tablet 100 mg PO BEDTIME 90 Days Qty: 90 1RF rosuvastatin [Crestor] 40 mg tablet 40 mg PO BEDTIME 90 Days Qty: 90 1RF metformin 1,000 mg tablet 1,000 mg PO BIDWM 90 Days Qty: 180 1RF omeprazole 40 mg capsule,delayed release(DR/EC) 40 mg PO DAILY@0630 90 Days Qty: 90 1RF ketoconazole 2 % cream 1 appl topical BID 30 Days Qty: 30 0RF oxycodone 5 mg tablet 5 mg PO Q6H PRN (Reason: pain) 30 Days Qty: 20 0RF losartan 25 mg tablet 25 mg PO DAILY 90 Days Qty: 30 5RF escitalopram oxalate [Lexapro] 10 mg tablet 10 mg PO DAILY 90 Days Qty: 90 1RF ropinirole 0.25 mg tablet 2 tab PO BEDTIME estradiol 0.01 % (0.1 mg/gram) cream 1 appl vaginal 3XW acetaminophen 325 mg Tablet 650 mg PO Q6H PRN (Reason: Pain (Scale Score 1-3)) sennosides [senna] 8.6 mg tablet 17.2 mg PO BEDTIME PRN (Reason: Constipation) baclofen 10 mg tablet 10 mg PO TID PRN (Reason: muscle spasm) Xarelto 20 mg tablet 20 mg PO DAILY@1700 insulin degludec [Tresiba FlexTouch U-100] 100 unit/mL (3 mL) insulin pen 0 - 10 unit subcut BEDTIME Trulicity 3 mg/0.5 mL pen injector 3 mg subcut TH@0900 metronidazole 500 mg tablet 500 mg PO Q12H 7 Days Qty: 14 0RF ciprofloxacin HCl [Cipro] 500 mg tablet 500 mg PO Q12H 7 Days Qty: 14 0RF furosemide 40 mg tablet 40 mg PO DAILY riboflavin (vitamin B2) 400 mg tablet 400 mg PO DAILY Qty: 30 0RF Discontinued atenolol 50 mg tablet 50 mg PO DAILY 90 Days Qty: 90 3RF Discharge Orders: Discharge Order (Routine); Ordered 10/18/22 Ordered By: Kevin Nieto Diet: Advance to usual diet Activity on Discharge: As tolerated Stand Alone Forms: Patient Portal Discharge page Care Plan Goals: Your atenolol has been increased to twice daily Health Concerns: Resume all other medicines as taking before hospital Plan of Treatment: Complete the antibiotics were given for colitis prior to admission Assessment: See discharge summary
--- NOTE | 2022-10-18 15:08 | MHC.CM.PN ---
PT MEDICALLY CLEARED FOR D/C HOME W/RESUMP OF [facility] FOR SN/OT/PT, FAMILY FOR TRANSPORT
== END 2022-10-18 16:14 | disposition home health service (06) | DRG 392 ==
LOC: HO.ED 15:44 → HO.EDOVER 16:34 → HO.IMC 21:30
PROVIDERS: Physician Assistant; Admitting Provider Physician Assistant; Emergency Provider Internal Medicine; PCP Internal Medicine; Visit Provider Hospitalist
DX: A09 Infectious gastroenteritis and colitis, unspecified (principal); I50.32 Chronic diastolic (congestive) heart failure; I48.0 Paroxysmal atrial fibrillation; E11.42 Type 2 diabetes mellitus with diabetic polyneuropathy; E78.5 Hyperlipidemia, unspecified; R94.31 Abnormal electrocardiogram [ECG] [EKG]; I25.10 Atherosclerotic heart disease of native coronary artery without angina pectoris; Z95.5 Presence of coronary angioplasty implant and graft; Z86.73 Personal history of transient ischemic attack (TIA), and cerebral infarction without residual deficits; Z79.4 Long term (current) use of insulin; Z79.01 Long term (current) use of anticoagulants; Z79.51 Long term (current) use of inhaled steroids; Z79.899 Other long term (current) drug therapy
CPT/HCPCS: 36415; 71046; 74177; 80048; 80053; 81001; 82947; 83605; 83690; 83735; 83880; 84484; 85025; 85610; 85730; 87040; 93005; 93280; 94660; 96361; 96365; 97116; 97162; 97530; 99212; 99284; 99285; J1956; J3475; Q9967

== ENCOUNTER 2022-10-28 15:23 | Outpatient (REF) | payer MEDICARE, SELFPAY ==
--- NOTE | ~2022-10-28 | MM_ITS ---
EXAMINATION: MM SCREENING DIGITAL BREAST TOMOSYNTHESIS, BILATERAL CLINICAL INFORMATION: Screening. Asymptomatic. The lifetime risk of breast cancer based on the Tyrer-Cuzick Model is 4%. COMPARISON: Mammography: 11/02/2018, 10/13/2017, 09/06/2016 TECHNIQUE: Digital breast tomosynthesis is performed in both the craniocaudal and mediolateral oblique views along with computer-aided detection (CAD). Synthesized 2D images are generated from the tomosynthesis. Additional right CC view is provided. FINDINGS: There are scattered areas of fibroglandular density (ACR BI-RADS breast composition Category b). Parenchymal pattern is similar to prior exams and there is no developing density or architectural abnormality. Again, there are scattered bilateral benign round, rim, coarse, and vascular calcifications. There are at least 2 biopsy clip markers again seen left breast. There are no significant masses, abnormal calcifications, or other abnormalities. The axilla and skin contours are unremarkable. No significant changes. MM/MM tomosynthesis screening BI IMPRESSION: No mammographic evidence of malignancy. ASSESSMENT: BI-RADS 2: Benign RECOMMENDATION: Routine annual mammography screening. This patient's information was entered into a reminder system with a target due date for their next mammogram.
== END 2022-10-28 15:24 | disposition home or self-care (01) ==
LOC: HO.MAMMO 15:23
PROVIDERS: PCP Internal Medicine; Visit Provider Internal Medicine
DX: Z12.31 Encounter for screening mammogram for malignant neoplasm of breast (principal)
CPT/HCPCS: 77063; 77067

== ENCOUNTER 2022-11-03 09:33 | Emergency (ER) | payer MEDICARE, SELFPAY ==
--- NOTE | ~2022-11-03 | XR_ITS ---
EXAMINATION: XR CHEST CLINICAL INFORMATION: Generalized weakness. COMPARISON: Most recent chest radiograph dated 10/16/2022. TECHNIQUE: Frontal view of the chest was obtained. FINDINGS: No airspace consolidation. No pleural effusion or pneumothorax. Stable cardiomediastinal silhouette. Left chest wall pacer with its leads in the right heart. Partially visualized thoracic spine stimulator leads. No acute osseous abnormality. XR/XR chest 1V IMPRESSION: No acute cardiopulmonary findings.
[2022-11-03 09:36] VITALS: BP 153/91; PULSE 120; RESP 16; TEMP 36.5; O2SAT 97; BMI 36.1
--- NOTE | 2022-11-03 10:02 | ECG_ITS ---
Test Reason : AFIB Blood Pressure : / mmHG Vent. Rate : 086 BPM Atrial Rate : 086 BPM P-R Int : 196 ms QRS Dur : 108 ms QT Int : 398 ms P-R-T Axes : 053 258 032 degrees QTc Int : 476 ms Normal sinus rhythm with sinus arrhythmia - initial beats of A paced Minimal voltage criteria for LVH, may be normal variant ( Brayan product ) Inferior infarct (cited on or before 16-OCT-2022) Abnormal ECG When compared with ECG of 17-OCT-2022 13:49, Sinus rhythm has replaced Electronic atrial pacemaker Referred By: Chiquis Hodges Electronically Signed By:KEAGAN MONACO
--- NOTE | 2022-11-03 10:03 | ED_ITS ---
HPI - General Adult General Chief complaint: General Medical Stated complaint: afib Time Seen by Provider: 11/03/22 09:44 History of Present Illness HPI narrative: 72-year-old female PMHx of DM, HTN, paroxysmal AFib on Xarelto, CAD, HFpEF, CVA. Patient was camping today when she started have generalize weakness, nausea with vomiting, and sweating with mild shortness of breath patient usually have those symptoms when she has AFib. Related Data Home Medications Medication Instructions Recorded Confirmed estradiol 0.01% (0.1 mg/gram) 1 appl vaginal 3XW 11/13/21 10/21/22 vaginal cream acetaminophen 325 mg tablet 650 mg PO Q6H PRN Pain (Scale 07/18/22 10/21/22 Score 1-3) Previous Rx's Medication Instructions Recorded blood-glucose meter (OneTouch #1 ea 06/12/22 Verio Meter) ciprofloxacin HCl 500 mg tablet 500 mg PO Q12H 7 days #14 tabs 10/14/22 (Cipro) codeine 10 mg-guaifenesin 100 mg/5 5 ml PO Q6H PRN Cough #180 mL 10/18/22 mL oral liquid atenolol 50 mg tablet 50 mg PO BID 90 days #180 tabs 10/30/22 baclofen 10 mg tablet 10 mg PO TID PRN muscle spasm 30 10/30/22 days #90 tabs qmffbmrecs-jexsgolyeswyn-qiyckfno 1 tab PO Q4H PRN Headache 4 days 10/30/22 50 mg-325 mg-40 mg tablet #24 tabs cholecalciferol (vitamin D3) 50 2,000 unit PO DAILY 90 days #90 10/30/22 mcg (2,000 unit) tablet tabs cyanocobalamin (vitamin B-12) 1,000 mcg PO DAILY 90 days #90 tabs 10/30/22 1,000 mcg tablet docusate sodium 100 mg capsule 100 mg PO BID PRN constipation 90 10/30/22 (DOK) days #180 caps dulaglutide 3 mg/0.5 mL 3 mg (0.5 mL) subcut QWEEK 90 days 10/30/22 subcutaneous pen injector #6.5 mL (Trulicity) empagliflozin 25 mg tablet 25 mg PO DAILY 90 days #90 tabs 10/30/22 (Jardiance) escitalopram oxalate 10 mg tablet 10 mg PO DAILY 90 days #90 tabs 10/30/22 (Lexapro) fenofibrate 160 mg tablet 160 mg PO DAILY 90 days #90 tabs 10/30/22 ferrous sulfate 325 mg (65 mg 325 mg PO DAILY 90 days #90 tabs 10/30/22 iron) tablet fluticasone propionate 50 1 spray intranasal DAILY 90 days 10/30/22 mcg/actuation nasal #16 grams spray,suspension furosemide 40 mg tablet 40 mg PO DAILY 30 days #30 tabs 10/30/22 gabapentin 600 mg tablet 600 mg PO TID 90 days #270 tabs 10/30/22 hydroxychloroquine 200 mg tablet 200 mg PO BID #180 tabs 10/30/22 (Plaquenil) insulin degludec 100 unit/mL (3 10 unit (0.1 mL) subcut BEDTIME 90 10/30/22 mL) subcutaneous pen (Tresiba days #9 mL FlexTouch U-100 insulin) ketoconazole 2 % topical cream 1 appl topical BID 30 days #30 10/30/22 grams lancets #100 ea 10/30/22 loratadine 10 mg tablet 10 mg PO DAILY 90 days #90 tabs 10/30/22 losartan 25 mg tablet 25 mg PO DAILY 90 days #30 tabs 10/30/22 magnesium 200 mg tablet 200 mg PO DAILY 90 days #90 tabs 10/30/22 metformin 1,000 mg tablet 1,000 mg PO BIDWM 90 days #180 tabs 10/30/22 mirabegron 50 mg tablet,extended 50 mg PO DAILY 90 days #90 tabs 10/30/22 release 24 hr (Myrbetriq) nystatin 100,000 unit/gram topical 1 appl topical DAILY 15 days #60 10/30/22 powder grams omeprazole 40 mg capsule,delayed 40 mg PO DAILY@0630 90 days #90 10/30/22 release caps oxycodone 5 mg tablet 5 mg PO Q6H PRN pain 30 days #20 10/30/22 tabs riboflavin (vitamin B2) 400 mg 400 mg PO DAILY #30 tabs 10/30/22 tablet rivaroxaban 20 mg tablet (Xarelto) 20 mg PO DAILY@1700 90 days #90 10/30/22 tabs ropinirole 0.25 mg tablet 0.5 mg PO BEDTIME 90 days #180 tabs 10/30/22 rosuvastatin 40 mg tablet (Crestor) 40 mg PO BEDTIME 90 days #90 tabs 10/30/22 sennosides 8.6 mg tablet (senna) 17.2 mg PO BEDTIME PRN 10/30/22 Constipation 90 days #90 tabs thiamine HCl (vitamin B1) 100 mg 100 mg PO DAILY 90 days #90 tabs 10/30/22 tablet blood sugar diagnostic (OneTouch #100 ea 11/01/22 Verio test strips) trazodone 100 mg tablet 100 mg PO BEDTIME 90 days #90 tabs 11/01/22 Allergies Allergy/AdvReac Type Severity Reaction Status Date / Time morphine [Morphine] Allergy Severe ITCHING, Verified 10/21/22 14:08 hives cefdinir Allergy Intermediate hives Verified 10/21/22 14:08 sulfamethoxazole Allergy Intermediate RASH Verified 10/21/22 14:08 trimethoprim Allergy Intermediate RASH Verified 10/21/22 14:08 duloxetine AdvReac Severe altered Verified 10/21/22 14:08 behavior betina AdvReac Mild RUNNY NOSE Verified 10/21/22 14:08 mustard AdvReac Mild RUNNY NOSE Verified 10/21/22 14:08 potato [POTATO] AdvReac Mild ITCHY NOSE Verified 10/21/22 14:08 soybean AdvReac Mild RUNNY NOSE Verified 10/21/22 14:08 cheese AdvReac Intermediate head Uncoded 10/21/22 13:55 congestion Review of Systems Review of Systems: All other systems are reviewed and are negative Constitutional: Reports as per HPI and Reports no additional constitutional complaints Eyes: Reports as per HPI and Reports no additional eye complaints Reports system reviewed and no additional complaints, except as documented Cardiovascular: Reports as per HPI and Reports no additional cardiovascular complaints Respiratory: Reports as per HPI and Reports no additional respiratory complaints Gastrointestinal: Reports as per HPI and Reports no additional gastrointestinal complaints Genitourinary: Reports no additional female genitourinary complaints Musculoskeletal: Reports no additional musculoskeletal complaints Skin/Breast: Reports system reviewed and no additional complaints, except as docu Psychiatric: Reports no additional psychiatric complaints Endocrine: Reports no additional endocrine complaints Hematologic/Lymphatic: Reports no additional hematologic/lymphatic complaints Allergic/Immunologic: Reports no additional allergic/immunologic complaints Reports system reviewed and no additional complaints, except as documented and Reports Abnormal speech present [facility] Past Medical History Medical History (HFpEF) heart failure with preserved ejection fraction Acute upper GI bleed Anemia Anemia Atherosclerotic cardiovascular disease Chronic heart failure with preserved ejection fraction (HFpEF) COVID-19 CVA (cerebral vascular accident) Diabetes mellitus Diabetes type 2, uncontrolled Diabetic neuropathy Diabetic polyneuropathy Dizziness Dyslipidemia Essential hypertension Falls Hand pain Head injury Headache Hospital discharge follow-up Hyperlipidemia LDL goal <70 Iron deficiency anemia Ischemic stroke Left hand pain Left hip pain Left knee pain Left shoulder pain Lumbar degenerative disc disease Mild recurrent major depression Obesity due to excess calories Other and unspecified hyperlipidemia Paroxysmal atrial fibrillation PONV (postoperative nausea and vomiting) Positive occult stool blood test Post-dural puncture headache Proteinuria Pulmonary hypertension Pure hypercholesterolemia Thiamine deficiency Thrombocytosis Thrombus 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 Urge urinary incontinence Surgical History H/O colonoscopy History of Mohs micrographic surgery for skin cancer History of partial hysterectomy Hx of cardiac cath Hx of cervical spine surgery S/P cardiac pacemaker procedure S/P insertion of spinal cord stimulator Family History Family History Father Rectal cancer Hypertension Arthritis of knee CVD (cardiovascular disease) Mother Hypertension CVD (cardiovascular disease) Myocardial infarction Diabetes Social History Social History Household Members: Spouse Housing: Apartment Are you a primary long term care administrator to a significant other at home: No Alcohol intake: never Patient Tobacco Use Status: Former Tobacco user Quit Date: 1993 Tobacco use type: Cigarette Smoked in Last 30 Days: No e-Cigarette/Vaping Use: Never Used Second Hand Smoke Exposure: No Use of substances other than those prescribed or required for medical reasons: No Advance Directives: Yes Advance Directives on File: Yes Advance Directives Date on File: 07/17/20 service: No Current occupational status: retired Current occupation: Lt handed Cognitive needs: Yes (scodor/walker) Hearing needs: No Vision needs: Yes (glasses) Physical Exam ED Vital Signs: Vital Signs - 24 hr 11/03/22 09:36 11/03/22 10:05 11/03/22 11:28 Temperature 97.7 F 97.9 F 99.6 F Pulse Rate 120 H 74 71 Respiratory Rate 16 20 18 Blood Pressure 153/91 H 151/74 H 181/81 H Pulse Oximetry 97 98 97 Oxygen Delivery Method Room Air Room Air Room Air BMI result Body Mass Index 36.1 Vital signs have been reviewed as appeared to be correct. Blood pressure normal. Heart rate normal. Respiration rate normal. Temperature normal. Oxygen saturation normal. Appearance: Alert. Oriented X3. No acute distress. Head: Normal external exam. Normocephalic. Atraumatic. No Lala signs noted. No raccoon eyes noted Eyes: PERRLA. EOMI. Conjunctiva and sclera normal. Eyelids normal. ENT: TM's Normal. Pharynx normal. Uvula midline. Moist mucous membranes. No trismus noted. No drooling noted. No muffled voice noted. Neck: Normal inspection. Neck supple. FROM. No adenopathy. Thyroid Normal. No meningeal signs. No neck mass noted. CVS: Normal heart rate and rhythm. Heart sound normal. No murmurs noted. Pulses normal throughout. Respiratory: No respiratory distress. Painless inspiration. Breath sounds normal. No wheezes/rales/rhonchi noted. Chest nontender. No accessory muscle usage noted or decreased air movement noted. Abdomen: Soft and nontender. Bowel sounds normal in all 4 quadrants. No distention noted. No organomegaly noted. No visible injury noted. Back: No CVA tenderness. Full range of motion noted. Skin: Skin warm and dry. Normal skin color. Normal skin turgor. No rashes/lesions/lacerations noted. Extremities: No lower extremity edema. Extremities exhibit normal range of motion. Extremities nontender. Neuro: Oriented X 3. Cranial nerve exam: II-XII are grossly intact No motor deficit. No sensory deficit. Reflexes normal. Course Course Course Narrative: A 72-year-old female came in for an episode of generalized weakness that mimic patient's symptoms when she has atrial fibrillation, slight elevation troponin was no delta changes, patient feels better able to ambulate in the emergency department. Medical Decision Making Differential Diagnosis Differential Diagnoses: The differential diagnosis associated with the presentation includes (ACS, CHF, electrolyte abnormalities, pneumonia, anemia.) Admission/Observation Consideration of admission/observation: Escalation of care including admission/observation considered Lab Data MDM Lab Attestation statement: I reviewed the patient's lab results. 11/03/22 10:32 11/03/22 10:32 Labs: Lab Results 11/03/22 11/03/22 11/03/22 Range/Units 10:32 10:32 10:32 WBC 8.2 (4.8-10.8) X10*3/uL RBC 4.85 (4.20-5.50) X10*6/uL Hgb 12.8 (12.0-16.0) g/dl Hct 40.1 (37.0-47.0) % MCV 82.7 (80.0-98.0) fL MCH 26.4 L (27.0-33.0) pg MCHC 31.9 (31.0-35.0) g/dl RDW 17.7 H (11.0-16.0) % Plt Count 380 (160-400) X10*3/uL MPV 8.7 L (9.4-12.3) fL Immature Gran % (Auto) 0.1 (0.0-0.4) % Neut % (Auto) 70.9 (45-73) % Lymph % (Auto) 16.9 L (20-40) % [place] % (Auto) 9.1 (2-11) % Eos % (Auto) 1.7 (0-4) % Baso % (Auto) 1.3 (0-2) % Lymph # (Auto) 1.4 (1.2-4.9) X10*3/uL [place] # (Auto) 0.7 (0.1-1.2) X10*3/uL Eos # (Auto) 0.1 (0.0-0.4) X10*3/uL Baso # (Auto) 0.1 (0.0-0.2) X10*3/uL Abs Immat Gran (auto) 0.01 (0.00-0.03) X10*3/uL Absolute Neuts (auto) 5.8 (2.0-8.3) x10*3/uL Absolute Nucleated RBC 0.000 (0.0-0.012) X10*3/uL Nucleated RBC % (auto) 0.0 (0.0-0.2) /100WBC Sodium 136 (135-145) mmol/L Potassium 3.9 (3.3-5.1) mmol/L Chloride 101 (96-108) mmol/L Carbon Dioxide 24 (22-29) mmol/L Anion Gap 15 (12-20) BUN 13 (9-16) mg/dL Creatinine 0.75 (0.5-1.4) mg/dL Estim Creat Clear Calc 71.1 Estimated GFR > 60 Random Glucose 113 (60-115) mg/dL Calcium 10.6 H D (8.4-10.2) mg/dL Total Bilirubin 0.5 (0.0-1.0) mg/dL Direct Bilirubin 0.2 (0.0-0.5) mg/dL AST 25 (5-31) U/L ALT 16 (0-31) U/L Alkaline Phosphatase 53 (39-117) U/L Troponin I High Sens 21.8 H D (<3.5-17.0) ng/L B-Natriuretic Peptide (<100) pg/mL Total Protein 7.6 (6.5-8.0) g/dL Albumin 4.2 (3.5-5.0) g/dL Lipase 17 (8-78) U/L Urine Color Urine Appearance Urine pH (5.0-9.0) Ur Specific [place] (1.005-1.025) Urine Protein (Neg-Trace) mg/dL Urine Glucose (UA) (Negative) mg/dL Urine Ketones (Negative) mg/dL Urine Blood (Negative) Urine Nitrite (Negative) Ur Leukocyte Esterase (Negative) Urine RBC (0-2) /HPF Urine WBC (0-5) /HPF Ur Squamous Epith Cells (0-2) /HPF Urine Bacteria (None Seen) Hyaline Casts (0-2) /LPF Influenza Type A (PCR) (Negative) Influenza Type B (PCR) (Negative) RSV RNA Qual (PCR) (Negative) SARS-CoV-2 RNA (RT-PCR) (Negative) 11/03/22 11/03/22 11/03/22 Range/Units 10:32 10:32 11:28 WBC (4.8-10.8) X10*3/uL RBC (4.20-5.50) X10*6/uL Hgb (12.0-16.0) g/dl Hct (37.0-47.0) % MCV (80.0-98.0) fL MCH (27.0-33.0) pg MCHC (31.0-35.0) g/dl RDW (11.0-16.0) % Plt Count (160-400) X10*3/uL MPV (9.4-12.3) fL Immature Gran % (Auto) (0.0-0.4) % Neut % (Auto) (45-73) % Lymph % (Auto) (20-40) % [place] % (Auto) (2-11) % Eos % (Auto) (0-4) % Baso % (Auto) (0-2) % Lymph # (Auto) (1.2-4.9) X10*3/uL [place] # (Auto) (0.1-1.2) X10*3/uL Eos # (Auto) (0.0-0.4) X10*3/uL Baso # (Auto) (0.0-0.2) X10*3/uL Abs Immat Gran (auto) (0.00-0.03) X10*3/uL Absolute Neuts (auto) (2.0-8.3) x10*3/uL Absolute Nucleated RBC (0.0-0.012) X10*3/uL Nucleated RBC % (auto) (0.0-0.2) /100WBC Sodium (135-145) mmol/L Potassium (3.3-5.1) mmol/L Chloride (96-108) mmol/L Carbon Dioxide (22-29) mmol/L Anion Gap (12-20) BUN (9-16) mg/dL Creatinine (0.5-1.4) mg/dL Estim Creat Clear Calc Estimated GFR Random Glucose (60-115) mg/dL Calcium (8.4-10.2) mg/dL Total Bilirubin (0.0-1.0) mg/dL Direct Bilirubin (0.0-0.5) mg/dL AST (5-31) U/L ALT (0-31) U/L Alkaline Phosphatase (39-117) U/L Troponin I High Sens (<3.5-17.0) ng/L B-Natriuretic Peptide 921 H (<100) pg/mL Total Protein (6.5-8.0) g/dL Albumin (3.5-5.0) g/dL Lipase (8-78) U/L Urine Color Dark Yellow Urine Appearance Clear Urine pH 7.5 (5.0-9.0) Ur Specific [place] 1.020 (1.005-1.025) Urine Protein >=1000 (4+) H (Neg-Trace) mg/dL Urine Glucose (UA) >=1000 H (Negative) mg/dL Urine Ketones Negative (Negative) mg/dL Urine Blood Negative (Negative) Urine Nitrite Negative (Negative) Ur Leukocyte Esterase Negative (Negative) Urine RBC 0-2 (0-2) /HPF Urine WBC 0-5 (0-5) /HPF Ur Squamous Epith Cells 0-2 (0-2) /HPF Urine Bacteria None Seen (None Seen) Hyaline Casts 0-2 (0-2) /LPF Influenza Type A (PCR) NEGATIVE (Negative) Influenza Type B (PCR) NEGATIVE (Negative) RSV RNA Qual (PCR) NEGATIVE (Negative) SARS-CoV-2 RNA (RT-PCR) NEGATIVE (Negative) Independent Interpretation I performed an independent interpretation of an: EKG and Plain X-Ray (No acute intrathoracic pathology.) Radiology Impression Discussion of test interpretation with radiology: I have reviewed the radiologist's reading. Radiologist Impression: Normal sinus rhythm with sinus arrhythmia at rate of 86, normal intervals, no ST-T changes, no change from previous EKG. Discharge Plan Discharge Clinical Impression: Episode of generalized weakness Patient Disposition: Home, Self-Care Instructions: Weakness (ED) Prescriptions: No Action (DME) blood-glucose meter [OneTouch Verio Meter] Misc See Rx Instructions .Route Qty: 1 0RF Rx Instructions: As directed atenolol 50 mg tablet 50 mg PO BID 90 Days Qty: 180 1RF Protocol: Hold for SBP/HR < HOLD for SBP < : 90 HOLD for HR < : 60 baclofen 10 mg tablet 10 mg PO TID PRN (Reason: muscle spasm) 30 Days Qty: 90 1RF quixvfbdhk-cabkaxdalqllh-seyt 50-325-40 mg tablet 1 tab PO Q4H PRN (Reason: Headache) 4 Days Qty: 24 0RF cholecalciferol (vitamin D3) 50 mcg (2,000 unit) tablet 2,000 unit PO DAILY 90 Days Qty: 90 3RF cyanocobalamin (vitamin B-12) 1,000 mcg tablet 1,000 mcg PO DAILY 90 Days Qty: 90 3RF docusate sodium [DOK] 100 mg capsule 100 mg PO BID PRN (Reason: constipation) 90 Days Qty: 180 2RF Trulicity 3 mg/0.5 mL pen injector 3 mg subcut QWEEK 90 Days Qty: 6.5 1RF Jardiance 25 mg tablet 25 mg PO DAILY 90 Days Qty: 90 3RF escitalopram oxalate [Lexapro] 10 mg tablet 10 mg PO DAILY 90 Days Qty: 90 1RF fenofibrate 160 mg tablet 160 mg PO DAILY 90 Days Qty: 90 3RF ferrous sulfate 325 mg (65 mg iron) tablet 325 mg PO DAILY 90 Days Qty: 90 1RF fluticasone propionate 50 mcg/actuation spray,suspension 1 spray intranasal DAILY 90 Days Qty: 16 3RF Rx Instructions: administer into each nostril furosemide 40 mg tablet 40 mg PO DAILY 30 Days Qty: 30 1RF gabapentin 600 mg tablet 600 mg PO TID 90 Days Qty: 270 1RF hydroxychloroquine [Plaquenil] 200 mg tablet 200 mg PO BID Qty: 180 3RF insulin degludec [Tresiba FlexTouch U-100] 100 unit/mL (3 mL) insulin pen 10 unit subcut BEDTIME 90 Days Qty: 9 1RF ketoconazole 2 % cream 1 appl topical BID 30 Days Qty: 30 0RF (DME) lancets Misc See Rx Instructions .Route Qty: 100 3RF Rx Instructions: USe 1 lancet once a day loratadine 10 mg tablet 10 mg PO DAILY 90 Days Qty: 90 0RF losartan 25 mg tablet 25 mg PO DAILY 90 Days Qty: 30 5RF magnesium 200 mg tablet 200 mg PO DAILY 90 Days Qty: 90 5RF metformin 1,000 mg tablet 1,000 mg PO BIDWM 90 Days Qty: 180 1RF Myrbetriq 50 mg tablet extended release 24 hr 50 mg PO DAILY 90 Days Qty: 90 1RF nystatin 100,000 unit/gram powder 1 appl topical DAILY 15 Days Qty: 60 0RF omeprazole 40 mg capsule,delayed release(DR/EC) 40 mg PO DAILY@0630 90 Days Qty: 90 1RF oxycodone 5 mg tablet 5 mg PO Q6H PRN (Reason: pain) 30 Days Qty: 20 0RF riboflavin (vitamin B2) 400 mg tablet 400 mg PO DAILY Qty: 30 0RF Xarelto 20 mg tablet 20 mg PO DAILY@1700 90 Days Qty: 90 1RF ropinirole 0.25 mg tablet 0.5 mg PO BEDTIME 90 Days Qty: 180 1RF rosuvastatin [Crestor] 40 mg tablet 40 mg PO BEDTIME 90 Days Qty: 90 1RF sennosides [senna] 8.6 mg tablet 17.2 mg PO BEDTIME PRN (Reason: Constipation) 90 Days Qty: 90 1RF thiamine HCl (vitamin B1) 100 mg tablet 100 mg PO DAILY 90 Days Qty: 90 1RF (DME) OneTouch Verio test strips Strip See Rx Instructions .Route Qty: 100 5RF Rx Instructions: Use 1 test strip twice a day trazodone 100 mg tablet 100 mg PO BEDTIME 90 Days Qty: 90 1RF estradiol 0.01 % (0.1 mg/gram) cream 1 appl vaginal 3XW acetaminophen 325 mg Tablet 650 mg PO Q6H PRN (Reason: Pain (Scale Score 1-3)) ciprofloxacin HCl [Cipro] 500 mg tablet 500 mg PO Q12H 7 Days Qty: 14 0RF codeine-guaifenesin 10-100 mg/5 mL Liquid 5 ml PO Q6H PRN (Reason: Cough) Qty: 180 0RF Referrals: Marla Henderson MD [Primary Care Provider] -
[2022-11-03 10:05] VITALS: BP 151/74; PULSE 74; RESP 20; TEMP 36.6; O2SAT 98
--- NOTE | 2022-11-03 10:14 | PC.NURSE ---
Pt arrived with , c/o N/V, stated she had one episode of vomiting, has not vomited since arriving, c/o to left upper chest (near pace maker) stated she had a mammogram 3 days ago and it pushed up on her pace maker and has been hurting ever since. Pt also stated she has a headache 02/18. Pt is A & O X4,
[2022-11-03 10:36] LABS: MANUAL DIFF FLAG NO
[2022-11-03 10:38] LABS: Basophils Absolute Auto 0.1 X10*3/uL (0.0-0.2); Basophils Percent Auto 1.3 % (0-2); Eosinophils Absolute Auto 0.1 X10*3/uL (0.0-0.4); Eosinophils Percent Auto 1.7 % (0-4); Hematocrit 40.1 % (37.0-47.0); Hemoglobin 12.8 g/dl (12.0-16.0); Imm Gran Abs Auto 0.01 X10*3/uL (0.00-0.03); Imm Gran Pct Auto 0.1 % (0.0-0.4); Lymphocytes Absolute Auto 1.4 X10*3/uL (1.2-4.9); Lymphocytes Percent Auto 16.9 % (20-40); Mean Corpuscular HGB Conc 31.9 g/dl (31.0-35.0); Mean Corpuscular Hemoglobin 26.4 pg (27.0-33.0); Mean Corpuscular Volume 82.7 fL (80.0-98.0); Mean Platelet Volume 8.7 fL (9.4-12.3); Monocytes Absolute Auto 0.7 X10*3/uL (0.1-1.2); Monocytes Percent Auto 9.1 % (2-11); Neutrophils Absolute Auto 5.8 x10*3/uL (2.0-8.3); Neutrophils Percent Auto 70.9 % (45-73); Platelet Count 380 X10*3/uL (160-400); Red Blood Count 4.85 X10*6/uL (4.20-5.50); Red Cell Distribution Width 17.7 % (11.0-16.0); White Blood Count 8.2 X10*3/uL (4.8-10.8)
[2022-11-03 10:53] LABS: Alanine Aminotransferase 16 U/L (0-31); Albumin Level 4.2 g/dL (3.5-5.0); Alkaline Phosphatase 53 U/L (39-117); Anion Gap 15 (12-20); Aspartate Amino Transferase 25 U/L (5-31); Bilirubin Direct 0.2 mg/dL (0.0-0.5); Bilirubin Total 0.5 mg/dL (0.0-1.0); Blood Urea Nitrogen 13 mg/dL (9-16); Calcium 10.6 mg/dL (8.4-10.2); Carbon Dioxide 24 mmol/L (22-29); Chloride 101 mmol/L (96-108); Creatinine Clr Calc Pharmacy 71.1; Estimated Glomerular Filt Rate > 60; Glucose Random 113 mg/dL (60-115); Lipase 17 U/L (8-78); Potassium 3.9 mmol/L (3.3-5.1); Sodium 136 mmol/L (135-145); Total Protein 7.6 g/dL (6.5-8.0)
[2022-11-03 11:00] LABS: Troponin-I High Sensitivity 21.8 ng/L (<3.5-17.0)
[2022-11-03 11:03] LABS: B Type Natriuretic Peptide 921 pg/mL (<100)
[2022-11-03 11:28] VITALS: BP 181/81; PULSE 71; RESP 18; TEMP 37.6; O2SAT 97
[2022-11-03 11:35] LABS: Appearance Urine Clear; Color Urine Dark Yellow; Glucose Urine UA >=1000 mg/dL (Negative); Leukocyte Esterase Urine Negative (Negative); Nitrite Urine Negative (Negative); PH 7.5 (5.0-9.0); UMIC TRIGGER UACC YES; Urine Blood Negative (Negative); Urine Ketones Negative (Negative); Urine Protein >=1000 (4+) mg/dL (Neg-Trace)
[2022-11-03 11:40] LABS: Bacteria Urine None Seen (None Seen); Hyaline Casts Urine 0-2 /LPF (0-2); RBC Urine 0-2 /HPF (0-2); Squamous Epithelial Cell Urine 0-2 /HPF (0-2); WBC Urine 0-5 /HPF (0-5)
[2022-11-03 12:10] LABS: Influenza A PCR NEGATIVE (Negative); Influenza B PCR NEGATIVE (Negative); Resp Syncy Virus RNA Qual PCR NEGATIVE (Negative); SARS COV2 PCR INHOUSE NEGATIVE (Negative)
[2022-11-03 13:08] LABS: Troponin-I High Sensitivity 21.6 ng/L (<3.5-17.0)
[2022-11-03 13:42] VITALS: BP 185/74; PULSE 71; RESP 20; TEMP 36.6; O2SAT 98
== END 2022-11-03 13:51 | disposition home or self-care (01) ==
PROVIDERS: Emergency Provider Emergency Medicine; PCP Internal Medicine
DX: I48.91 Unspecified atrial fibrillation (principal); I25.10 Atherosclerotic heart disease of native coronary artery without angina pectoris; R53.1 Weakness; R06.02 Shortness of breath; Z20.822 Contact with and (suspected) exposure to COVID-19; Z20.828 Contact with and (suspected) exposure to other viral communicable diseases; Z87.891 Personal history of nicotine dependence; Z79.01 Long term (current) use of anticoagulants; Z79.899 Other long term (current) drug therapy
CPT/HCPCS: 0241U; 36415; 71045; 80048; 80076; 81001; 83690; 83880; 84484; 85025; 93005; 99284; 99285

== ENCOUNTER 2022-11-19 08:26 | Outpatient (AMB) | payer MEDICARE, SELFPAY ==
--- NOTE | 2022-11-19 08:29 | MHC.OFFVIS ---
Intake Vital Signs 11/19/22 08:30 Height 5 ft 3 in Weight 208 lb 15.971 oz BMI 37.0 BP 140/60 H Blood Pressure Location Lt brachial Position Sitting Pulse 70 Intake Visit Reasons: follow up echo Intake Note: follow up echo Starch Dumper Required: No Accompanied by: Spouse Allergies morphine [Morphine] Allergy (Severe, Verified 11/19/22 08:35) ITCHING, hives cefdinir Allergy (Intermediate, Verified 11/19/22 08:35) hives sulfamethoxazole Allergy (Intermediate, Verified 11/19/22 08:35) RASH trimethoprim Allergy (Intermediate, Verified 11/19/22 08:35) RASH duloxetine Adverse Reaction (Severe, Verified 11/19/22 08:35) altered behavior betina Adverse Reaction (Mild, Verified 11/19/22 08:35) RUNNY NOSE mustard Adverse Reaction (Mild, Verified 11/19/22 08:35) RUNNY NOSE potato [POTATO] Adverse Reaction (Mild, Verified 11/19/22 08:35) ITCHY NOSE soybean Adverse Reaction (Mild, Verified 11/19/22 08:35) RUNNY NOSE cheese Adverse Reaction (Intermediate, Uncoded 11/19/22 08:35) head congestion Medication List - Last Reconciled 11/19/22 by Genaro Sweet MD acetaminophen 650 mg PO Q6H PRN atenolol 50 mg See Protocol PO BID 90 days baclofen 10 mg PO TID PRN 30 days blood sugar diagnostic (OneTouch Verio test strips) Use 1 test strip twice a day blood-glucose meter (OneTouch Verio Meter) As directed bhyvhwikhx-qxezpuknwhsmv-vyjk 50-325-40 mg 1 tab PO Q4H PRN 4 days cholecalciferol (vitamin D3) 2,000 units PO DAILY 90 days cyanocobalamin (vitamin B-12) 1,000 mcg PO DAILY 90 days docusate sodium (DOK) 100 mg PO BID PRN 90 days dulaglutide (Trulicity) 3 mg (0.5 mL) subcut QWEEK 90 days empagliflozin (Jardiance) 25 mg PO DAILY 90 days escitalopram oxalate (Lexapro) 10 mg PO DAILY 90 days estradiol 0.01%(0.1mg/gram) 1 appl vaginal 3XW fenofibrate 160 mg PO DAILY 90 days ferrous sulfate 325 mg PO DAILY 90 days fluticasone propionate 50 mcg/actuation 1 spray intranasal DAILY 90 days furosemide 40 mg PO DAILY 30 days gabapentin 600 mg PO TID 90 days hydroxychloroquine (Plaquenil) 200 mg PO BID insulin degludec (Tresiba FlexTouch U-100 insulin) 10 units (0.1 mL) subcut BEDTIME 90 days ketoconazole 2% 1 appl topical BID 30 days lancets USe 1 lancet once a day loratadine 10 mg PO DAILY 90 days losartan 25 mg PO DAILY 90 days magnesium 200 mg PO DAILY 90 days metformin 1,000 mg PO BIDWM 90 days mirabegron ER (Myrbetriq) 50 mg PO DAILY 90 days nystatin 1 appl topical DAILY 15 days omeprazole 40 mg PO DAILY@0630 90 days oxycodone 5 mg PO Q6H PRN 30 days riboflavin (vitamin B2) 400 mg PO DAILY rivaroxaban (Xarelto) 20 mg PO DAILY@1700 90 days ropinirole 0.5 mg (2 x 0.25 mg) PO BEDTIME 90 days rosuvastatin (Crestor) 40 mg PO BEDTIME 90 days sennosides (senna) 17.2 mg (2 x 8.6 mg) PO BEDTIME PRN 90 days thiamine HCl (vitamin B1) 100 mg PO DAILY 90 days trazodone 100 mg PO BEDTIME 90 days HPI HPI Comments History of Present Illness Details Missy returns for follow-up regarding various cardiac issues. To recall, she has coronary disease and underwent drug-eluting stent in her marginal artery in 2016. She has chronic heart failure with preserved ejection fraction and paroxysmal atrial fibrillation and hypertension. Multiple strokes in the last couple years and has been hospitalized to [facility] as well as [facility]. However, no new strokes recently. Most recently, she was hospitalized and in that setting had atrial fibrillation rapid response but also had significant conversion pauses of greater than 6 seconds. During that time, she had some lightheadedness. Eventually had a permanent pacemaker implanted and discharged home. Over the last few weeks, shortness of breath and some leg swelling. She also felt as if her abdomen is bloated. Diuretics, improvement. Thought to be from heart failure. She also needs to go for skin cancer resection, per patient. [facility] Medical History (Updated 11/19/22 @ 09:15 by Genaro Sweet MD) (HFpEF) heart failure with preserved ejection fraction Acute upper GI bleed Anemia Anemia Atherosclerotic cardiovascular disease Chronic heart failure with preserved ejection fraction (HFpEF) COVID-19 CVA (cerebral vascular accident) Diabetes mellitus Diabetes type 2, uncontrolled Diabetic neuropathy Diabetic polyneuropathy Dizziness Dyslipidemia Essential hypertension Falls Hand pain Head injury Headache Hospital discharge follow-up Hyperlipidemia LDL goal <70 Iron deficiency anemia Ischemic stroke Left hand pain Left hip pain Left knee pain Left shoulder pain Lumbar degenerative disc disease Mild recurrent major depression Obesity due to excess calories Other and unspecified hyperlipidemia Paroxysmal atrial fibrillation PONV (postoperative nausea and vomiting) Positive occult stool blood test Post-dural puncture headache Proteinuria Pulmonary hypertension Pure hypercholesterolemia Thiamine deficiency Thrombocytosis Thrombus 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 Urge urinary incontinence Surgical History H/O colonoscopy History of Mohs micrographic surgery for skin cancer History of partial hysterectomy Hx of cardiac cath Hx of cervical spine surgery S/P cardiac pacemaker procedure S/P insertion of spinal cord stimulator Family History Father Rectal cancer Hypertension Arthritis of knee CVD (cardiovascular disease) Mother Hypertension CVD (cardiovascular disease) Myocardial infarction Diabetes Social History Household Members: Spouse Housing: Apartment Are you a primary emergency care attendant to a significant other at home: No Alcohol intake: never Patient Tobacco Use Status: Former Tobacco user Quit Date: 1993 Tobacco use type: Cigarette e-Cigarette/Vaping Use: Never Used Second Hand Smoke Exposure: No Advance Directives Date on File: 07/17/20 service: No Current occupational status: retired Current occupation: Lt handed Cognitive needs: Yes (scodor/walker) Hearing needs: No Vision needs: Yes (glasses) Review of Systems Const Denies weakness ENT Denies dizziness Card Denies chest pain, Denies chest pain with activity, Denies syncope, Denies rapid heart rate, Denies pedal edema, Denies edema, Denies leg edema, Denies lightheadedness, Denies palpitations, Denies dyspnea, Denies dyspnea on exertion and Denies orthopnea Resp Denies cough, Denies dyspnea and Denies dyspnea on exertion GI Denies hematochezia and Denies change in stool character Musc Denies abnormal gait, Denies muscle cramps, Denies muscle weakness, Denies numbness, Denies radiating pain into limb and Denies tingling Neuro Denies abnormal gait, Denies dizziness, Denies syncope, Denies numbness, Denies tingling and Denies weakness Endo Denies palpitations Physical Exam Vital Signs: Last Vital Signs Pulse 70 11/19/22 08:30 BP 140/60 H 11/19/22 08:30 BMI result Body Mass Index 37.0 Const General: comfortable and no acute distress Orientation/consciousness: patient oriented x3 HEENT Other: Unremarkable Head: Yes normal to inspection Neck Neck: Yes normal visual inspection Chest Chest palpation & inspection: normal inspection of the chest Resp Auscultation: clear to auscultation bilaterally Cardio Palpation: normal PMI Heart sounds: S1 normal heart sound present, S2 normal heart sound present, no gallops, Murmur heart sound present systolic II/ and at the right sternal border and no rubs GI Palpation (GI): Soft to palpation Back/Spine/Pelvis Other: unremarkable Skin General skin exam: no rashes or lesions noted Neuro General: patient oriented x3 Extrem General: Yes normal to inspection Psych Mental Status: mental status grossly normal Assessment & Plan Assessment & Plan (1) Paroxysmal atrial fibrillation: Code(s): I48.0 - Paroxysmal atrial fibrillation Plan: In sinus rhythm. Continue atenolol. Has had Multaq in the past but due to some interstitial findings CT scan, that was stopped. Possibly Sotalol in the future if needed. Otherwise, continue anticoagulation. (2) Atherosclerotic cardiovascular disease: Code(s): I25.10 - Atherosclerotic heart disease of [place] coronary artery without angina pectoris Plan: Cardiac [id number] 2 vessel disease with FISH PACKER of the RCA; collaterals from distal circumflex; severe lesion in OM2 ostium, culprit, status post JACY. Has been stable. Continue statins. Last LDL 48 mg/dL. (3) Acute on chronic heart failure with preserved ejection fraction: Code(s): I50.33 - Acute on chronic diastolic (congestive) heart failure Plan: Recent cardiac BNP was much higher than her usual baseline. Clinically, not having any obvious overload today but she feels her abdomen is bloated. We can add Lasix 20 mg to her usual 40 mg and take 60 mg total. Also on Jardiance. (4) Non-rheumatic aortic stenosis: Code(s): I35.0 - Nonrheumatic aortic (valve) stenosis Plan: In the last echocardiogram from July this year, moderate aortic valve calcification with zrrw-xr-qvueyzir aortic stenosis. We will follow this periodically. (5) Mitral annular calcification: Code(s): I34.81 - Nonrheumatic mitral (valve) annulus calcification Plan: She has significant mitral annular calcification/moderate mitral stenosis. This is probably contributing to her symptoms. However, would still treat this conservatively this time and optimize diuretic therapy. Should be at high risk for any periprocedural strokes and hence would try to avoid any interventions at this time. Can reassess periodically. We discussed about this today. (6) Ischemic stroke: Code(s): I63.9 - Cerebral infarction, unspecified Plan: Pr [facility] neurovascular note, she had left M1 occlusion and possible left M2 occlusion as well. Status post thrombectomy. CT neck- 06/2020-[facility] [place]- proximal internal carotid artery stenosis-70% on the right side and 50% on the left side. CTA from [place] in July 2020 shows internal carotid artery plaque at the origins worse on the left side at approximately 50%. In the most recent vascular ultrasound, 50-79% stenosis on the right side. Overall, thought to be stable. Left side no significant disease. (7) Essential hypertension: Code(s): I10 - Essential (primary) hypertension Plan: Stable. No changes. (8) Other and unspecified hyperlipidemia: Code(s): E78.5 - Hyperlipidemia, unspecified Plan: On statins and fenofibrate. Last LDL 48 mg/dL. Last triglycerides 88 mg/dL. (9) Diabetes mellitus: Code(s): E11.9 - Type 2 diabetes mellitus without complications Qualifiers: Diabetes mellitus complication status: with hyperglycemia Diabetes mellitus senior living insulin use: with senior living use Diabetes mellitus type: type 2 Qualified Code(s): E11.65 - Type 2 diabetes mellitus with hyperglycemia; Z79.4 - USP (current) use of insulin Plan: Last hemoglobin A1c is 6.5%. On insulin, Jorge Nix. (10) Preoperative cardiovascular examination: Code(s): Z01.810 - Encounter for preprocedural cardiovascular examination Plan: Patient states she needs to go for skin cancer resection. Per patient, she has been advised to hold Eliquis for the day before surgery, day of and day after surgery. She can take Lovenox the day before. No anticoagulation on day of procedure. The following day, if she is not high bleeding risk, then just resume her Xarelto due to history of multiple strokes. Specifically discussed about this with patient today. She will speak to her surgeon. Plan Total time spent including review of data, counseling, documentation, coordination of care-45 minutes. Discussed with who came for the appointment. Medications: New furosemide (Lasix) Take in addition to 20mg daily. 20 mg PO DAILY 90 tabs 3RF Coding Level of Care Code Est Pt Level 4 (53207) Diagnoses Paroxysmal atrial fibrillation I48.0 Atherosclerotic cardiovascular disease I25.10 Acute on chronic heart failure with preserved ejection fraction I50.33 Non-rheumatic aortic stenosis I35.0 Mitral annular calcification I34.81 Ischemic stroke I63.9 Essential hypertension I10 Other and unspecified hyperlipidemia E78.5 Diabetes mellitus E11.65; Z79.4 Diabetes mellitus complication status: with hyperglycemia Diabetes mellitus senior living insulin use: with senior living use Diabetes mellitus type: type 2 Preoperative cardiovascular examination Z01.810
[2022-11-19 08:30] VITALS: BP 140/60; PULSE 70; BMI 37.0
== END 2022-11-19 09:05 | disposition home or self-care (01) ==
PROVIDERS: PCP Internal Medicine; Visit Provider Internal Medicine
DX: I48.0 Paroxysmal atrial fibrillation (principal); I25.10 Atherosclerotic heart disease of native coronary artery without angina pectoris; I50.33 Acute on chronic diastolic (congestive) heart failure; I35.0 Nonrheumatic aortic (valve) stenosis; I34.81 Nonrheumatic mitral (valve) annulus calcification; I63.9 Cerebral infarction, unspecified; I10 Essential (primary) hypertension; E78.5 Hyperlipidemia, unspecified; E11.65 Type 2 diabetes mellitus with hyperglycemia; Z79.4 Long term (current) use of insulin; Z01.810 Encounter for preprocedural cardiovascular examination
CPT/HCPCS: 99214

== ENCOUNTER → 2022-11-19 08:26 | Outpatient (BNVA) | payer MEDICARE, SELFPAY | PROVIDERS: PCP Internal Medicine; Visit Provider Internal Medicine | DX: Z01.810 Encounter for preprocedural cardiovascular examination (principal); I20.9 Angina pectoris, unspecified; I11.0 Hypertensive heart disease with heart failure; I50.32 Chronic diastolic (congestive) heart failure; I48.0 Paroxysmal atrial fibrillation; I35.0 Nonrheumatic aortic (valve) stenosis; I34.81 Nonrheumatic mitral (valve) annulus calcification; E78.5 Hyperlipidemia, unspecified; E11.65 Type 2 diabetes mellitus with hyperglycemia; Z95.5 Presence of coronary angioplasty implant and graft; Z79.4 Long term (current) use of insulin; Z79.891 Long term (current) use of opiate analgesic; Z79.899 Other long term (current) drug therapy | CPT/HCPCS: 99212 ==

== ENCOUNTER 2022-11-19 09:29 | Outpatient (AMB) | payer MEDICARE, SELFPAY ==
--- NOTE | 2022-11-19 09:31 | A.OFFPC_ITS ---
Vital Signs 11/19/22 09:33 Height 5 ft 3 in Weight 207 lb BMI 36.7 BP 134/70 Blood Pressure Location Lt brachial Position Sitting Intake Visit Reasons: Dental pre-op Intake Note: Patient here for Dental pre-op, pain medications Rougher Operator Required: No Accompanied by: Spouse Allergies morphine [Morphine] Allergy (Severe, Verified 11/19/22 09:43) ITCHING, hives cefdinir Allergy (Intermediate, Verified 11/19/22 09:43) hives sulfamethoxazole Allergy (Intermediate, Verified 11/19/22 09:43) RASH trimethoprim Allergy (Intermediate, Verified 11/19/22 09:43) RASH duloxetine Adverse Reaction (Severe, Verified 11/19/22 09:43) altered behavior betina Adverse Reaction (Mild, Verified 11/19/22 09:43) RUNNY NOSE mustard Adverse Reaction (Mild, Verified 11/19/22 09:43) RUNNY NOSE potato [POTATO] Adverse Reaction (Mild, Verified 11/19/22 09:43) ITCHY NOSE soybean Adverse Reaction (Mild, Verified 11/19/22 09:43) RUNNY NOSE cheese Adverse Reaction (Intermediate, Uncoded 11/19/22 09:43) head congestion Medication List - Last Reconciled 11/19/22 by Marla Bray MD acetaminophen 650 mg PO Q6H PRN atenolol 50 mg See Protocol PO BID 90 days baclofen 10 mg PO TID PRN 30 days blood sugar diagnostic (OneTouch Verio test strips) Use 1 test strip twice a day blood-glucose meter (OneTouch Verio Meter) As directed ssqnriytzy-yqaeyevezdalq-lpiu 50-325-40 mg 1 tab PO Q4H PRN 4 days cholecalciferol (vitamin D3) 2,000 units PO DAILY 90 days cyanocobalamin (vitamin B-12) 1,000 mcg PO DAILY 90 days docusate sodium (DOK) 100 mg PO BID PRN 90 days dulaglutide (Trulicity) 3 mg (0.5 mL) subcut QWEEK 90 days empagliflozin (Jardiance) 25 mg PO DAILY 90 days escitalopram oxalate (Lexapro) 10 mg PO DAILY 90 days estradiol 0.01%(0.1mg/gram) 1 appl vaginal 3XW fenofibrate 160 mg PO DAILY 90 days ferrous sulfate 325 mg PO DAILY 90 days fluticasone propionate 50 mcg/actuation 1 spray intranasal DAILY 90 days furosemide 40 mg PO DAILY 30 days furosemide (Lasix) 20 mg PO DAILY gabapentin 600 mg PO TID 90 days hydroxychloroquine (Plaquenil) 200 mg PO BID insulin degludec (Tresiba FlexTouch U-100 insulin) 10 units (0.1 mL) subcut BEDTIME 90 days ketoconazole 2% 1 appl topical BID 30 days lancets USe 1 lancet once a day loratadine 10 mg PO DAILY 90 days losartan 25 mg PO DAILY 90 days magnesium 200 mg PO DAILY 90 days metformin 1,000 mg PO BIDWM 90 days mirabegron ER (Myrbetriq) 50 mg PO DAILY 90 days nystatin 1 appl topical DAILY 15 days omeprazole 40 mg PO DAILY@0630 90 days oxycodone 5 mg PO Q6H PRN 30 days riboflavin (vitamin B2) 400 mg PO DAILY rivaroxaban (Xarelto) 20 mg PO DAILY@1700 90 days ropinirole 0.5 mg (2 x 0.25 mg) PO BEDTIME 90 days rosuvastatin (Crestor) 40 mg PO BEDTIME 90 days sennosides (senna) 17.2 mg (2 x 8.6 mg) PO BEDTIME PRN 90 days thiamine HCl (vitamin B1) 100 mg PO DAILY 90 days trazodone 100 mg PO BEDTIME 90 days Tobacco use date assessed: 10/21/22 Fall risk assessment: 2 + Falls in past year Last assessed Fall Risk: 11/19/22 Dental Screening Dental Screen Date: 11/19/22 Did you have a dental visit in the last 12 months?: No Did you have a dental problem in the last 6 months where you did not have access to dental care?: Yes Was dental information given to patient?: Patient has dentist HPI HPI Comments History of Present Illness Details This is a 72-year-old female with chronic heart failure with preserved ejection fraction, paroxysmal atrial fibrillation, diabetes mellitus type 2 on long-term current use of insulin and history of ischemic stroke that comes today for follow-up on her conditions. Chronic heart failure is follow by cardiology and denies gaining 5 lb in a week. On chronic anticoagulation for atrial fibrillation. Last A1c was within goal. Had ischemic stroke with no residual deficit and walks with a walker for gait stability. Will have dental fillings and would like endocarditis prophylaxis due to her pacemaker. No chest pain or shortness of breath. Patient is accompanied by . [facility] Medical History (HFpEF) heart failure with preserved ejection fraction Acute upper GI bleed Anemia Anemia Atherosclerotic cardiovascular disease Chronic heart failure with preserved ejection fraction (HFpEF) COVID-19 CVA (cerebral vascular accident) Diabetes mellitus Diabetes type 2, uncontrolled Diabetic neuropathy Diabetic polyneuropathy Dizziness Dyslipidemia Essential hypertension Falls Hand pain Head injury Headache Hospital discharge follow-up Hyperlipidemia LDL goal <70 Iron deficiency anemia Ischemic stroke Left hand pain Left hip pain Left knee pain Left shoulder pain Lumbar degenerative disc disease Mild recurrent major depression Obesity due to excess calories Other and unspecified hyperlipidemia Paroxysmal atrial fibrillation PONV (postoperative nausea and vomiting) Positive occult stool blood test Post-dural puncture headache Proteinuria Pulmonary hypertension Pure hypercholesterolemia Thiamine deficiency Thrombocytosis Thrombus 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 Urge urinary incontinence Surgical History H/O colonoscopy History of Mohs micrographic surgery for skin cancer History of partial hysterectomy Hx of cardiac cath Hx of cervical spine surgery S/P cardiac pacemaker procedure S/P insertion of spinal cord stimulator Family History Father Rectal cancer Hypertension Arthritis of knee CVD (cardiovascular disease) Mother Hypertension CVD (cardiovascular disease) Myocardial infarction Diabetes Social History Household Members: Spouse Housing: Apartment Are you a primary lawn care worker to a significant other at home: No Alcohol intake: never Patient Tobacco Use Status: Former Tobacco user Quit Date: 1993 Tobacco use type: Cigarette e-Cigarette/Vaping Use: Never Used Second Hand Smoke Exposure: No Advance Directives Date on File: 07/17/20 service: No Current occupational status: retired Current occupation: Lt handed Cognitive needs: Yes (scodor/walker) Hearing needs: No Vision needs: Yes (glasses) Questionnaire Thrive Questionnaire Date Thrive assessed: 05/30/22 ALY-7 AMB Questionnaire ALY-7 Date ALY - 7 assessed: 05/30/22 Source: Developed by Rima BobbyW. Jostin, Brenden Zhang and colleagues, with an educational norma from [employer]. Review of Systems Const All systems reviewed & are unremarkable except as noted in HPI and below Eyes Reports no additional complaints, Denies change in vision and Denies other visual disturbances Card Denies chest pain at rest, Denies chest pain with activity, Denies edema, Denies irregular heart rhythm, Denies claudication, Denies dyspnea, Denies dyspnea on exertion, Denies orthopnea, Denies paroxysmal nocturnal dyspnea and Denies slow heart rate Resp Denies cough, Denies dyspnea and Denies dyspnea on exertion GI Denies abdominal pain, Denies change in bowel habits, Denies excessive flatus, Denies nausea and Denies vomiting Denies urinary incontinence, Denies urinary hesitancy and Denies urinary urgency Musc Denies abnormal gait, Denies atrophy, Denies deformity and Denies limited range of motion Skin/Breast Denies bleeding lesions, Denies changing lesions and Denies rash Neuro Denies abnormal gait and Denies lack of coordination Physical exam (Primary Care) Vital Signs: Last Vital Signs BP 134/70 11/19/22 09:33 BMI result Body Mass Index 36.7 Tobacco/Smoking Status: Tobacco use Status Tobacco use date assessed 10/21/22 11/19/22 09:33 Patient Tobacco Use Status Former Tobacco user 11/19/22 09:33 Tobacco use type Cigarette 11/19/22 09:33 e-Cigarette/Vaping Use Never Used 11/19/22 09:33 Thrive Assessment: Date of Thrive Assessment Date Thrive assessed 05/30/22 11/19/22 09:33 Eyes General: appearance normal, both eyes and all related structures Eyelids: Yes eyelids normal Conjunctivae: conjunctivae normal Neck Neck: Yes normal visual inspection and Yes supple Resp Effort & Inspection: normal respiratory effort Auscultation: clear to auscultation bilaterally Cardio Jugular venous distension: no JVD Rate: regular rate Rhythm: regular rhythm Heart sounds: S1 normal heart sound present and S2 normal heart sound present Extrem General: Yes full ROM Assessment and Plan Assessment & Plan (1) Chronic heart failure with preserved ejection fraction (HFpEF): Code(s): I50.32 - Chronic diastolic (congestive) heart failure Plan: Use diuretics as needed. The goal is to not gain 5 lb in a week (2) Paroxysmal atrial fibrillation: Code(s): I48.0 - Paroxysmal atrial fibrillation Plan: Continue anticoagulation. (3) Diabetes mellitus: Code(s): E11.9 - Type 2 diabetes mellitus without complications Qualifiers: Diabetes mellitus type: type 2 Diabetes mellitus intermodal dispatcher insulin use: with intermodal dispatcher use Diabetes mellitus complication status: with hyperglycemia Qualified Code(s): E11.65 - Type 2 diabetes mellitus with hyperglycemia; Z79.4 - long-term (current) use of insulin Plan: Continue insulin, metformin and Trulicity. A1c goal is equal or less than 7%. (4) Ischemic stroke: Code(s): I63.9 - Cerebral infarction, unspecified Plan: Continue chronic anticoagulation. Keep blood pressure within goal. Medications: New amoxicillin 2,000 mg (4 x 500 mg) PO ONCE 1 day 4 tabs 0RF Refilled oxycodone 5 mg PO Q6H 30 days PRN 20 tabs 0RF pain Coding Level of Care Code Est Pt Level 4 (28836) Diagnoses Chronic heart failure with preserved ejection fraction (HFpEF) I50.32 Paroxysmal atrial fibrillation I48.0 Diabetes mellitus E11.65; Z79.4 Diabetes mellitus type: type 2 Diabetes mellitus shelter insulin use: with shelter use Diabetes mellitus complication status: with hyperglycemia Ischemic stroke I63.9 Time Spent (min) 24
[2022-11-19 09:33] VITALS: BP 134/70; BMI 36.7
== END 2022-11-19 10:02 | disposition home or self-care (01) ==
PROVIDERS: PCP Internal Medicine; Visit Provider Internal Medicine
DX: I50.32 Chronic diastolic (congestive) heart failure (principal); I48.0 Paroxysmal atrial fibrillation; I63.9 Cerebral infarction, unspecified; Z79.4 Long term (current) use of insulin; E11.65 Type 2 diabetes mellitus with hyperglycemia
CPT/HCPCS: 99214

== ENCOUNTER → 2022-11-28 08:40 | Outpatient (REF) | payer MEDICARE, SELFPAY ==
--- NOTE | ~2022-11-28 | NM_ITS ---
Lexiscan Myocardial perfusion study Indication: Preoperative cardiac evaluation Technique: The patient was brought in for a Lexiscan perfusion study on 11/28/2022 and was injected 0.4 mg of Lexiscan intravenously. Within a minute of this injection 40 mCi of sestamibi was given intravenously. Images were obtained using the SPECT gamma camera interlaced with the gating device. Images were obtained in supine position. Resting perfusion study was performed on 11/29/2022. Patient was administered 40 mCi of sestamibi intravenously at rest. Images were then obtained in supine position. Images were processed with the software and compared side to side in short axis, horizontal long axis and vertical long axis views. Total DLP 149mGy-cm. Findings: Raw acquisition reviewed. Arms by the patient's side. The stress perfusion study showed diminished tracer uptake in the lateral wall. Towards the apex much more profound. There is some improvement with CT attenuation correction and hence there are components of soft tissue attenuation artifact. There is also basal inferior perfusion defect. Some improvement with CT attenuation correction and hence could have components of diaphragmatic attenuation artifact. There is adjacent subdiaphragmatic tracer uptake noted. The gated study shows normal LV systolic function with calculated LVEF of 56%. LV cavity is normal in size. The gated study shows lateral wall hypokinesis. Resting study shows no significant perfusion defects. Gating not performed due to atrial fibrillation The findings are consistent with lateral wall reversible defect more severe towards the apex. Basal inferior/inferolateral reversible defect NM/NM cardiolite stress test Impression: 1. Myocardial perfusion imaging study shows lateral wall ischemia, severe towards the apex. Possible mild to moderate basal inferolateral ischemia vs artifact. 2. Gated LVEF is 56% during stress. EKG component of the test reported separately.
--- NOTE | 2022-11-28 08:43 | CA_ITS ---
Acquisition Time: 2022-11-28 09:00:20 Total Exercise Time: 00:02:00 Test Indications: Dyspnea EDEMA Medications: SEE H Protocol: LEXISCAN Max HR: 080 BPM 54% of Pred: 146 BPM Max BP: 138/082 mmHG Max Work Load: 1.0 METS Pharmacological stress test using Lexiscan while sitting and kickinng her feet. Tolerated well. No CP, Headache and nausea reversed with Aminophyline 75 mg IV . Normotensive response. Nuclear images fo follow. Test reviewed with Dr. Sales. Referred By: Genaro Sweet Overread By: Yolande Perez NP
== END ==
LOC: HO.CARD 08:40
PROVIDERS: PCP Internal Medicine; Visit Provider Internal Medicine
DX: R07.2 Precordial pain (principal); I20.9 Angina pectoris, unspecified; I50.32 Chronic diastolic (congestive) heart failure
CPT/HCPCS: 78452; 93017; A9500; J0280; J2785

== ENCOUNTER → 2022-11-28 08:43 | Outpatient (BNV) | payer MEDICARE, SELFPAY | PROVIDERS: PCP Internal Medicine; Visit Provider Nurse Practitioner Family | DX: I45.81 Long QT syndrome (principal) | CPT/HCPCS: 78452; 93016; 93018 ==

== ENCOUNTER 2022-12-11 09:00 | Emergency (ER) | payer MEDICARE, SELFPAY ==
[2022-12-11] VITALS (7 sets, daily range): BP systolic 118–219; BP diastolic 57–99; PULSE 68–77; RESP 18–20; TEMP 36.6; O2SAT 91–98; BMI 38.5
--- NOTE | ~2022-12-11 | CT_ITS ---
EXAMINATION: CT HEAD WITHOUT CONTRAST CLINICAL INFORMATION: Head injury. COMPARISON: Head CT scan dated 07/18/2022. TECHNIQUE: Contiguous axial imaging was performed from the skull base to vertex without intravenous administration of contrast. Coronal and sagittal reformatted images were obtained. This CT examination was performed using dose optimization techniques as appropriate, variously including the following: *Automated exposure control *Adjustment of mA and/or kV according to patient size (this includes techniques or standardized protocols for targeted exams where dose is matched to indication/reason for exam; i.e. extremities or head) *Use of iterative reconstruction technique DLP: 787.43 mGy-cm FINDINGS: There is mild widening of the cortical sulci and associated ventriculomegaly. The lateral ventricles are symmetrical. The third and fourth ventricles are in their normal midline position. The basilar and prepontine cisterns are unremarkable. There is no acute intra or extracerebral abnormality. There is no mass effect or midline shift. There is a small left frontal subgaleal hematoma with mild adjacent subcutaneous infiltrative changes. The larger, moderate-sized subgaleal hematoma is seen in the right superior parietal region. No acute underlying osseous abnormality. Incidental hyperostosis frontalis interna. The orbits are intact. The paranasal sinuses are clear. The mastoid air cells are clear. CT/CT head/brain wo IV con IMPRESSION: 1. No acute intracranial pathology. 2. Small left frontal and moderate right superior parietal subgaleal hematomas without acute underlying osseous abnormality.
--- NOTE | ~2022-12-11 | CT_ITS ---
EXAMINATION: CT CERVICAL SPINE WITHOUT CONTRAST CLINICAL INFORMATION: Neck pain after falling COMPARISON: None available. TECHNIQUE: Axial helical scans with sagittal and coronal reformats obtained. This CT examination was performed using dose optimization techniques as appropriate, variously including the following: *Automated exposure control *Adjustment of mA and/or kV according to patient size (this includes techniques or standardized protocols for targeted exams where dose is matched to indication/reason for exam; i.e. extremities or head) *Use of iterative reconstruction technique DLP: 655 mGy-cm FINDINGS: Advanced degenerative change seen throughout the mid and lower cervical spine and upper thoracic spine but no evidence for an acute fracture or destructive process. Postsurgical changes in the mid C-spine noted. The soft tissues are normal. CT/CT cervical spine wo IV con IMPRESSION: No acute findings. Fleischner guidelines were followed.
--- NOTE | 2022-12-11 10:06 | ECG_ITS ---
Test Reason : MCQUAIC Blood Pressure : / mmHG Vent. Rate : 070 BPM Atrial Rate : 070 BPM P-R Int : 230 ms QRS Dur : 104 ms QT Int : 416 ms P-R-T Axes : 053 070 023 degrees QTc Int : 449 ms Poor data quality, interpretation may be adversely affected Atrial-paced rhythm with prolonged AV conduction Abnormal ECG When compared with ECG of 03-NOV-2022 10:15, No significant changes seen Referred By: Chiquis Hodges Electronically Signed By:KEAGAN MONACO
[2022-12-11] MEDS: oxyCODONE HCl Immed Release 5 MG TABLET PO (10:11)
--- NOTE | 2022-12-11 10:14 | ED.FALL ---
HPI - Fall General Chief Complaint: Fall Stated Complaint: FALL OOB W/HEAD/NECK PAIN,R ARM LAC,+CCOLLAR Time Seen by Provider: 12/11/22 09:49 Source: patient, family (Spouse) and EMS Mode of arrival: EMS Limitations: no limitations History of Present Illness HPI Narrative: 72-year-old female came in by ambulance for evaluation after a mechanical fall. Patient was trying to get out of bed sitting on the edge of the bed trying to reach to her walker, missed the Walker and fell forward from sitting on the bed face down on the ground, patient declined LOC, complaining of head and neck pain, patient also is sustaining a small skin tear on the right forearm, no CP, no SOB, lightheadedness. Patient is taking Eliquis for AC. Related Data Home Medications Medication Instructions Recorded Confirmed estradiol 0.01% (0.1 mg/gram) 1 appl vaginal 3XW 11/13/21 11/19/22 vaginal cream acetaminophen 325 mg tablet 650 mg PO Q6H PRN Pain (Scale 07/18/22 11/19/22 Score 1-3) Previous Rx's Medication Instructions Recorded blood-glucose meter (OneTouch #1 ea 06/12/22 Verio Meter) atenolol 50 mg tablet 50 mg PO BID 90 days #180 tabs 10/30/22 baclofen 10 mg tablet 10 mg PO TID PRN muscle spasm 30 10/30/22 days #90 tabs inplheggbm-rcsxzhnfjdhof-wmvdjews 1 tab PO Q4H PRN Headache 4 days 10/30/22 50 mg-325 mg-40 mg tablet #24 tabs cholecalciferol (vitamin D3) 50 2,000 unit PO DAILY 90 days #90 10/30/22 mcg (2,000 unit) tablet tabs cyanocobalamin (vitamin B-12) 1,000 mcg PO DAILY 90 days #90 tabs 10/30/22 1,000 mcg tablet docusate sodium 100 mg capsule 100 mg PO BID PRN constipation 90 10/30/22 (DOK) days #180 caps dulaglutide 3 mg/0.5 mL 3 mg (0.5 mL) subcut QWEEK 90 days 10/30/22 subcutaneous pen injector #6.5 mL (Trulicity) empagliflozin 25 mg tablet 25 mg PO DAILY 90 days #90 tabs 10/30/22 (Jardiance) escitalopram oxalate 10 mg tablet 10 mg PO DAILY 90 days #90 tabs 10/30/22 (Lexapro) fenofibrate 160 mg tablet 160 mg PO DAILY 90 days #90 tabs 10/30/22 ferrous sulfate 325 mg (65 mg 325 mg PO DAILY 90 days #90 tabs 10/30/22 iron) tablet fluticasone propionate 50 1 spray intranasal DAILY 90 days 10/30/22 mcg/actuation nasal #16 grams spray,suspension furosemide 40 mg tablet 40 mg PO DAILY 30 days #30 tabs 10/30/22 gabapentin 600 mg tablet 600 mg PO TID 90 days #270 tabs 10/30/22 hydroxychloroquine 200 mg tablet 200 mg PO BID #180 tabs 10/30/22 (Plaquenil) insulin degludec 100 unit/mL (3 10 unit (0.1 mL) subcut BEDTIME 90 10/30/22 mL) subcutaneous pen (Tresi days #9 mL FlexTouch U-100 insulin) ketoconazole 2 % topical cream 1 appl topical BID 30 days #30 10/30/22 grams lancets #100 ea 10/30/22 loratadine 10 mg tablet 10 mg PO DAILY 90 days #90 tabs 10/30/22 losartan 25 mg tablet 25 mg PO DAILY 90 days #30 tabs 10/30/22 magnesium 200 mg tablet 200 mg PO DAILY 90 days #90 tabs 10/30/22 metformin 1,000 mg tablet 1,000 mg PO BIDWM 90 days #180 tabs 10/30/22 mirabegron 50 mg tablet,extended 50 mg PO DAILY 90 days #90 tabs 10/30/22 release 24 hr (Myrbetriq) nystatin 100,000 unit/gram topical 1 appl topical DAILY 15 days #60 10/30/22 powder grams omeprazole 40 mg capsule,delayed 40 mg PO DAILY@0630 90 days #90 10/30/22 release caps rivaroxaban 20 mg tablet (Xarelto) 20 mg PO DAILY@1700 90 days #90 10/30/22 tabs ropinirole 0.25 mg tablet 0.5 mg PO BEDTIME 90 days #180 tabs 10/30/22 rosuvastatin 40 mg tablet (Crestor) 40 mg PO BEDTIME 90 days #90 tabs 10/30/22 sennosides 8.6 mg tablet (senna) 17.2 mg PO BEDTIME PRN 10/30/22 Constipation 90 days #90 tabs thiamine HCl (vitamin B1) 100 mg 100 mg PO DAILY 90 days #90 tabs 10/30/22 tablet blood sugar diagnostic (OneTouch #100 ea 11/01/22 Verio test strips) trazodone 100 mg tablet 100 mg PO BEDTIME 90 days #90 tabs 11/01/22 amoxicillin 500 mg tablet 2,000 mg PO ONCE 1 day #4 tabs 11/19/22 enoxaparin 100 mg/mL subcutaneous 100 mg subcut DAILY #1 mL 11/19/22 syringe furosemide 20 mg tablet (Lasix) 20 mg PO DAILY #90 tabs 11/19/22 oxycodone 5 mg tablet 5 mg PO Q6H PRN pain 30 days #90 11/19/22 tabs riboflavin (vitamin B2) 400 mg 400 mg PO DAILY #30 tabs 11/22/22 tablet Allergies Allergy/AdvReac Type Severity Reaction Status Date / Time morphine [Morphine] Allergy Severe ITCHING, Verified 12/11/22 09:15 hives cefdinir Allergy Intermediate hives Verified 12/11/22 09:15 sulfamethoxazole Allergy Intermediate RASH Verified 12/11/22 09:15 trimethoprim Allergy Intermediate RASH Verified 12/11/22 09:15 duloxetine AdvReac Severe altered Verified 12/11/22 09:15 behavior betina AdvReac Mild RUNNY NOSE Verified 12/11/22 09:15 mustard AdvReac Mild RUNNY NOSE Verified 12/11/22 09:15 potato [POTATO] AdvReac Mild ITCHY NOSE Verified 12/11/22 09:15 soybean AdvReac Mild RUNNY NOSE Verified 12/11/22 09:15 cheese AdvReac Intermediate head Uncoded 12/11/22 09:15 congestion Review of Systems Review of Systems: All other systems are reviewed and are negative Constitutional: Reports as per HPI and Reports no additional constitutional complaints Eyes: Reports as per HPI and Reports no additional eye complaints Reports system reviewed and no additional complaints, except as documented Cardiovascular: Reports as per HPI and Reports no additional cardiovascular complaints Respiratory: Reports as per HPI and Reports no additional respiratory complaints Gastrointestinal: Reports as per HPI and Reports no additional gastrointestinal complaints Genitourinary: Reports no additional female genitourinary complaints Musculoskeletal: Reports no additional musculoskeletal complaints Skin/Breast: Reports system reviewed and no additional complaints, except as docu Psychiatric: Reports no additional psychiatric complaints Endocrine: Reports no additional endocrine complaints Hematologic/Lymphatic: Reports no additional hematologic/lymphatic complaints Allergic/Immunologic: Reports no additional allergic/immunologic complaints Reports system reviewed and no additional complaints, except as documented and Reports Abnormal speech present [facility] Past Medical History Medical History (HFpEF) heart failure with preserved ejection fraction Acute upper GI bleed Anemia Anemia Atherosclerotic cardiovascular disease Chronic heart failure with preserved ejection fraction (HFpEF) COVID-19 CVA (cerebral vascular accident) Diabetes mellitus Diabetes type 2, uncontrolled Diabetic neuropathy Diabetic polyneuropathy Dizziness Dyslipidemia Essential hypertension Falls Hand pain Head injury Headache Hospital discharge follow-up Hyperlipidemia LDL goal <70 Iron deficiency anemia Ischemic stroke Left hand pain Left hip pain Left knee pain Left shoulder pain Lumbar degenerative disc disease Mild recurrent major depression Obesity due to excess calories Other and unspecified hyperlipidemia Paroxysmal atrial fibrillation PONV (postoperative nausea and vomiting) Positive occult stool blood test Post-dural puncture headache Proteinuria Pulmonary hypertension Pure hypercholesterolemia Thiamine deficiency Thrombocytosis Thrombus 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 Urge urinary incontinence Surgical History H/O colonoscopy History of Mohs micrographic surgery for skin cancer History of partial hysterectomy Hx of cardiac cath Hx of cervical spine surgery S/P cardiac pacemaker procedure S/P insertion of spinal cord stimulator Family History Family History Father Rectal cancer Hypertension Arthritis of knee CVD (cardiovascular disease) Mother Hypertension CVD (cardiovascular disease) Myocardial infarction Diabetes Social History Social History Household Members: Spouse Housing: Apartment Are you a primary director career services to a significant other at home: No Alcohol intake: never Patient Tobacco Use Status: Former Tobacco user Quit Date: 1993 Tobacco use type: Cigarette e-Cigarette/Vaping Use: Never Used Second Hand Smoke Exposure: No Advance Directives: Yes Advance Directives on File: Yes Advance Directives Date on File: 07/17/20 service: No Current occupational status: retired Current occupation: Lt handed Cognitive needs: Yes (scodor/walker) Hearing needs: No Vision needs: Yes (glasses) Physical Exam Vital Signs: Vital Signs: Last Vital Signs Temp 98 F 12/11/22 09:08 Pulse 68 12/11/22 14:52 Resp 18 12/11/22 14:52 BP 121/64 12/11/22 14:52 Pulse Ox 98 12/11/22 14:52 O2 Del Method Room Air 12/11/22 14:52 O2 Flow Rate 2 12/11/22 12:27 BMI result Body Mass Index 38.5 Vital signs have been reviewed as appeared to be correct. Blood pressure normal. Heart rate normal. Respiration rate normal. Temperature normal. Oxygen saturation normal. Appearance: Alert. Oriented X3. No acute distress. Head: Mild ecchymosis around the nose and in the forehead. Eyes: PERRLA. EOMI. Conjunctiva and sclera normal. Eyelids normal. ENT: TM's Normal. Pharynx normal. Uvula midline. Moist mucous membranes. No trismus noted. No drooling noted. No muffled voice noted. Neck: Normal inspection. C-collar in place, midline tenderness around C1-C3. No adenopathy. Thyroid Normal. No meningeal signs. No neck mass noted. CVS: Normal heart rate and rhythm. Heart sound normal. No murmurs noted. Pulses normal throughout. Respiratory: No respiratory distress. Painless inspiration. Breath sounds normal. No wheezes/rales/rhonchi noted. Chest nontender. No accessory muscle usage noted or decreased air movement noted. Abdomen: Soft and nontender. Bowel sounds normal in all 4 quadrants. No distention noted. No organomegaly noted. No visible injury noted. Back: No CVA tenderness. Full range of motion noted. Skin: Skin warm and dry. Normal skin color. Normal skin turgor. No rashes/lesions/lacerations noted. Extremities: Right upper extremities, 3 x 3 cm area of skin to her at the palmar side of the right forearm. Neuro: Oriented X 3. Cranial nerve exam: II-XII are grossly intact No motor deficit. No sensory deficit. Reflexes normal. Course Course Course Narrative: 72-year-old female status post mechanical fall causing C2 fracture, neurologically intact with no neurological deficit. Case discussed and accepted by Dr. Art who accepted the patient to [facility] for trauma evaluation. Medications Administered Discontinued Medications Generic Name Dose Route Start Last Admin Trade Name Mike PRN Reason Stop Dose Admin Hydromorphone HCl 1 mg 12/11/22 11:21 12/11/22 11:28 Hydromorphone Hcl 1 Mg/Ml Syringe IVPUSH 12/11/22 11:22 1 mg ONCE ONE Administration Protocol Ondansetron HCl 4 mg 12/11/22 15:09 12/11/22 15:12 Ondansetron Hcl 4 Mg/2 Ml Vial IVPUSH 12/11/22 15:10 4 mg ONCE ONE Administration Oxycodone HCl 5 mg 12/11/22 10:01 12/11/22 10:11 Oxycodone Hcl Immed Release 5 Mg Tablet PO 12/11/22 10:02 5 mg ONCE ONE Administration Medical Decision Making Differential Diagnosis Differential Diagnoses: The differential diagnosis associated with the presentation includes (Mechanical fall, intracranial bleed, subarachnoid hemorrhage, epidural hematoma, subdural hematoma, cervical spine fracture, neurological deficit, severe anemia, electrolyte abnormality.) Admission/Observation Consideration of admission/observation: Escalation of care including admission/observation considered Consult Healthcare Provider Management of the patient was discussed with: Sand [place] (Dr. art) Lab Data MDM Lab Attestation statement: I reviewed the patient's lab results. 12/11/22 11:21 12/11/22 11:21 Labs: Lab Results 12/11/22 12/11/22 12/11/22 Range/Units 11:21 11:21 11:21 WBC 10.9 H (4.8-10.8) X10*3/uL RBC 5.10 (4.20-5.50) X10*6/uL Hgb 13.7 (12.0-16.0) g/dl Hct 43.0 (37.0-47.0) % MCV 84.3 (80.0-98.0) fL MCH 26.9 L (27.0-33.0) pg MCHC 31.9 (31.0-35.0) g/dl RDW 17.2 H (11.0-16.0) % Plt Count 349 (160-400) X10*3/uL MPV 9.1 L (9.4-12.3) fL Immature Gran % (Auto) 0.5 H (0.0-0.4) % Neut % (Auto) 80.4 H (45-73) % Lymph % (Auto) 10.4 L (20-40) % [place] % (Auto) 6.6 (2-11) % Eos % (Auto) 1.5 (0-4) % Baso % (Auto) 0.6 (0-2) % Lymph # (Auto) 1.1 L (1.2-4.9) X10*3/uL [place] # (Auto) 0.7 (0.1-1.2) X10*3/uL Eos # (Auto) 0.2 (0.0-0.4) X10*3/uL Baso # (Auto) 0.1 (0.0-0.2) X10*3/uL Abs Immat Gran (auto) 0.05 H (0.00-0.03) X10*3/uL Absolute Neuts (auto) 8.7 H (2.0-8.3) x10*3/uL Absolute Nucleated RBC 0.000 (0.0-0.012) X10*3/uL Nucleated RBC % (auto) 0.0 (0.0-0.2) /100WBC Sodium 139 (135-145) mmol/L Potassium 4.2 (3.3-5.1) mmol/L Chloride 100 (96-108) mmol/L Carbon Dioxide 25 (22-29) mmol/L Anion Gap 18 (12-20) BUN 32 H (9-16) mg/dL Creatinine 1.04 (0.5-1.4) mg/dL Estim Creat Clear Calc 53.0 Estimated GFR 52 Random Glucose 141 H (60-115) mg/dL Calcium 10.2 (8.4-10.2) mg/dL Troponin I High Sens 11.0 (<3.5-17.0) ng/L Lipase 20 (8-78) U/L Independent Interpretation I performed an independent interpretation of an: CT Scan (Head/C-spine CT: No acute intracranial pathology, C2 anterior arch fracture.) Radiology Impression Discussion of test interpretation with radiology: I have reviewed the radiologist's reading. Discharge Plan Discharge Clinical Impression: Closed C2 fracture Patient Disposition: [facility] Hospital Transfer Details: [facility] Prescriptions: No Action (DME) blood-glucose meter [OneTouch Verio Meter] Misc See Rx Instructions .Route Qty: 1 0RF Rx Instructions: As directed atenolol 50 mg tablet 50 mg PO BID 90 Days Qty: 180 1RF Protocol: Hold for SBP/HR < HOLD for SBP < : 90 HOLD for HR < : 60 baclofen 10 mg tablet 10 mg PO TID PRN (Reason: muscle spasm) 30 Days Qty: 90 1RF ojmptwzkyu-kybhctqcurtza-pbyx 50-325-40 mg tablet 1 tab PO Q4H PRN (Reason: Headache) 4 Days Qty: 24 0RF cholecalciferol (vitamin D3) 50 mcg (2,000 unit) tablet 2,000 unit PO DAILY 90 Days Qty: 90 3RF cyanocobalamin (vitamin B-12) 1,000 mcg tablet 1,000 mcg PO DAILY 90 Days Qty: 90 3RF docusate sodium [DOK] 100 mg capsule 100 mg PO BID PRN (Reason: constipation) 90 Days Qty: 180 2RF Trulicity 3 mg/0.5 mL pen injector 3 mg subcut QWEEK 90 Days Qty: 6.5 1RF Jardiance 25 mg tablet 25 mg PO DAILY 90 Days Qty: 90 3RF escitalopram oxalate [Lexapro] 10 mg tablet 10 mg PO DAILY 90 Days Qty: 90 1RF fenofibrate 160 mg tablet 160 mg PO DAILY 90 Days Qty: 90 3RF ferrous sulfate 325 mg (65 mg iron) tablet 325 mg PO DAILY 90 Days Qty: 90 1RF fluticasone propionate 50 mcg/actuation spray,suspension 1 spray intranasal DAILY 90 Days Qty: 16 3RF Rx Instructions: administer into each nostril furosemide 40 mg tablet 40 mg PO DAILY 30 Days Qty: 30 1RF gabapentin 600 mg tablet 600 mg PO TID 90 Days Qty: 270 1RF hydroxychloroquine [Plaquenil] 200 mg tablet 200 mg PO BID Qty: 180 3RF insulin degludec [Tresiba FlexTouch U-100] 100 unit/mL (3 mL) insulin pen 10 unit subcut BEDTIME 90 Days Qty: 9 1RF ketoconazole 2 % cream 1 appl topical BID 30 Days Qty: 30 0RF (DME) lancets Misc See Rx Instructions .Route Qty: 100 3RF Rx Instructions: USe 1 lancet once a day loratadine 10 mg tablet 10 mg PO DAILY 90 Days Qty: 90 0RF losartan 25 mg tablet 25 mg PO DAILY 90 Days Qty: 30 5RF magnesium 200 mg tablet 200 mg PO DAILY 90 Days Qty: 90 5RF metformin 1,000 mg tablet 1,000 mg PO BIDWM 90 Days Qty: 180 1RF Myrbetriq 50 mg tablet extended release 24 hr 50 mg PO DAILY 90 Days Qty: 90 1RF nystatin 100,000 unit/gram powder 1 appl topical DAILY 15 Days Qty: 60 0RF omeprazole 40 mg capsule,delayed release(DR/EC) 40 mg PO DAILY@0630 90 Days Qty: 90 1RF Xarelto 20 mg tablet 20 mg PO DAILY@1700 90 Days Qty: 90 1RF ropinirole 0.25 mg tablet 0.5 mg PO BEDTIME 90 Days Qty: 180 1RF rosuvastatin [Crestor] 40 mg tablet 40 mg PO BEDTIME 90 Days Qty: 90 1RF sennosides [senna] 8.6 mg tablet 17.2 mg PO BEDTIME PRN (Reason: Constipation) 90 Days Qty: 90 1RF thiamine HCl (vitamin B1) 100 mg tablet 100 mg PO DAILY 90 Days Qty: 90 1RF (DME) OneTouch Verio test strips Strip See Rx Instructions .Route Qty: 100 5RF Rx Instructions: Use 1 test strip twice a day trazodone 100 mg tablet 100 mg PO BEDTIME 90 Days Qty: 90 1RF enoxaparin 100 mg/mL syringe 100 mg subcut DAILY Qty: 1 0RF Rx Instructions: Hold your Xarelto the day before the procedure and instead take this dose of enoxaparin. Do not take Xarelto or enoxaparin the day of the procedure, and restart your Xarelto the day after the procedure if there is no bleeding risk. Discuss with Dr. Mackey the day of the procedure re: bleeding risk. oxycodone 5 mg tablet 5 mg PO Q6H PRN (Reason: pain) 30 Days Qty: 90 0RF riboflavin (vitamin B2) 400 mg tablet 400 mg PO DAILY Qty: 30 0RF estradiol 0.01 % (0.1 mg/gram) cream 1 appl vaginal 3XW acetaminophen 325 mg Tablet 650 mg PO Q6H PRN (Reason: Pain (Scale Score 1-3)) amoxicillin 500 mg tablet 2,000 mg PO ONCE 1 Days Qty: 4 0RF furosemide [Lasix] 20 mg tablet 20 mg PO DAILY Qty: 90 3RF Rx Instructions: Take in addition to 20mg daily.
[2022-12-11 11:28] LABS: MANUAL DIFF FLAG NO
[2022-12-11] MEDS: HYDROmorphone HCl 1 MG/ML SYRINGE IVPUSH ×2 (11:28→17:34)
[2022-12-11 11:30] LABS: Basophils Absolute Auto 0.1 X10*3/uL (0.0-0.2); Basophils Percent Auto 0.6 % (0-2); Eosinophils Absolute Auto 0.2 X10*3/uL (0.0-0.4); Eosinophils Percent Auto 1.5 % (0-4); Hemoglobin 13.7 g/dl (12.0-16.0); Imm Gran Abs Auto 0.05 X10*3/uL (0.00-0.03); Imm Gran Pct Auto 0.5 % (0.0-0.4); Lymphocytes Absolute Auto 1.1 X10*3/uL (1.2-4.9); Lymphocytes Percent Auto 10.4 % (20-40); Mean Corpuscular HGB Conc 31.9 g/dl (31.0-35.0); Mean Corpuscular Hemoglobin 26.9 pg (27.0-33.0); Mean Corpuscular Volume 84.3 fL (80.0-98.0); Mean Platelet Volume 9.1 fL (9.4-12.3); Monocytes Absolute Auto 0.7 X10*3/uL (0.1-1.2); Monocytes Percent Auto 6.6 % (2-11); Neutrophils Absolute Auto 8.7 x10*3/uL (2.0-8.3); Neutrophils Percent Auto 80.4 % (45-73); Platelet Count 349 X10*3/uL (160-400); Red Cell Distribution Width 17.2 % (11.0-16.0); White Blood Count 10.9 X10*3/uL (4.8-10.8)
[2022-12-11 11:47] LABS: Anion Gap 18 (12-20); Blood Urea Nitrogen 32 mg/dL (9-16); Calcium 10.2 mg/dL (8.4-10.2); Carbon Dioxide 25 mmol/L (22-29); Chloride 100 mmol/L (96-108); Estimated Glomerular Filt Rate 52; Glucose Random 141 mg/dL (60-115); Lipase 20 U/L (8-78); Potassium 4.2 mmol/L (3.3-5.1); Sodium 139 mmol/L (135-145)
[2022-12-11] MEDS: ondansetron HCL 4 MG/2 ML VIAL IVPUSH ×2 (15:12→16:40)
--- NOTE | 2022-12-11 16:00 | PC.NURSE ---
this rn assumed care of pt @ 1500. pt at bedside. pt began vomiting. this rn and previous shift rn assisted pt. zofran give. this rn made dr wong aware of pt vomiting. no new orders for imaging
--- NOTE | 2022-12-11 17:00 | PC.NURSE ---
pt had additional episode of vomiting this rn assisted pt pt suctioned by this rn and nursing education specialist. this rn heard suction running from room this rn found pt performing suction on pt. this rn made pt aware that this cannot be done. pt suction has to be performed by medical staff this rn made propellant charge zone assembler and ed provider aware
--- NOTE | 2022-12-11 19:52 | PC.NURSE ---
this rn gave ems report prior to transport. rn to rn report given to florina temple
== END 2022-12-11 19:20 | disposition short-term general hospital (02) ==
PROVIDERS: Emergency Provider Emergency Medicine; PCP Internal Medicine
DX: S12.100A Unspecified displaced fracture of second cervical vertebra, initial encounter for closed fracture (principal); S09.90XA Unspecified injury of head, initial encounter; R51.9 Headache, unspecified; M54.2 Cervicalgia; R94.31 Abnormal electrocardiogram [ECG] [EKG]; W06.XXXA Fall from bed, initial encounter; Y93.9 Activity, unspecified; Y92.9 Unspecified place or not applicable; Y99.9 Unspecified external cause status; Z79.899 Other long term (current) drug therapy
CPT/HCPCS: 36415; 70450; 72125; 80048; 83690; 84484; 85025; 93005; 96374; 96375; 96376; 99285; J1170; J2405

== ENCOUNTER → 2022-12-11 10:06 | Outpatient (BNV) | payer MEDICARE, SELFPAY | PROVIDERS: Emergency Provider Emergency Medicine; PCP Internal Medicine; Visit Provider Internal Medicine | DX: R94.31 Abnormal electrocardiogram [ECG] [EKG] (principal) | CPT/HCPCS: 93010 ==

== ENCOUNTER → 2023-01-07 23:59 | Outpatient (BNV) | payer MEDICARE, SELFPAY ==
--- NOTE | 2023-01-19 16:55 | A.OFFVIS_ITS ---
Intake Intake Visit Reasons: Remote Device Check- [facility] Allergies morphine [Morphine] Allergy (Severe, Verified 12/11/22 09:15) ITCHING, hives cefdinir Allergy (Intermediate, Verified 12/11/22 09:15) hives sulfamethoxazole Allergy (Intermediate, Verified 12/11/22 09:15) RASH trimethoprim Allergy (Intermediate, Verified 12/11/22 09:15) RASH duloxetine Adverse Reaction (Severe, Verified 12/11/22 09:15) altered behavior betina Adverse Reaction (Mild, Verified 12/11/22 09:15) RUNNY NOSE mustard Adverse Reaction (Mild, Verified 12/11/22 09:15) RUNNY NOSE potato [POTATO] Adverse Reaction (Mild, Verified 12/11/22 09:15) ITCHY NOSE soybean Adverse Reaction (Mild, Verified 12/11/22 09:15) RUNNY NOSE cheese Adverse Reaction (Intermediate, Uncoded 12/11/22 09:15) head congestion PFSH Medical History (HFpEF) heart failure with preserved ejection fraction Acute upper GI bleed Anemia Anemia Atherosclerotic cardiovascular disease Chronic heart failure with preserved ejection fraction (HFpEF) COVID-19 CVA (cerebral vascular accident) Diabetes mellitus Diabetes type 2, uncontrolled Diabetic neuropathy Diabetic polyneuropathy Dizziness Dyslipidemia Essential hypertension Falls Hand pain Head injury Headache Hospital discharge follow-up Hyperlipidemia LDL goal <70 Iron deficiency anemia Ischemic stroke Left hand pain Left hip pain Left knee pain Left shoulder pain Lumbar degenerative disc disease Mild recurrent major depression Obesity due to excess calories Other and unspecified hyperlipidemia Paroxysmal atrial fibrillation PONV (postoperative nausea and vomiting) Positive occult stool blood test Post-dural puncture headache Proteinuria Pulmonary hypertension Pure hypercholesterolemia Thiamine deficiency Thrombocytosis Thrombus 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 Urge urinary incontinence Surgical History H/O colonoscopy History of Mohs micrographic surgery for skin cancer History of partial hysterectomy Hx of cardiac cath Hx of cervical spine surgery S/P cardiac pacemaker procedure S/P insertion of spinal cord stimulator Family History Father Rectal cancer Hypertension Arthritis of knee CVD (cardiovascular disease) Mother Hypertension CVD (cardiovascular disease) Myocardial infarction Diabetes Social History Household Members: Spouse Housing: Apartment Are you a primary patient centered care specialist to a significant other at home: No Alcohol intake: never Patient Tobacco Use Status: Former Tobacco user Quit Date: 1993 Tobacco use type: Cigarette e-Cigarette/Vaping Use: Never Used Second Hand Smoke Exposure: No Advance Directives Date on File: 07/17/20 service: No Current occupational status: retired Current occupation: Lt handed Cognitive needs: Yes (scodor/walker) Hearing needs: No Vision needs: Yes (glasses) Office Procedures Cardiac Device Check Cardiac Device Check Details: Date of service- 01/07/2023 ; Battery life >9 years; normal lead parameters; AP 75%; STAFF GENETIC COUNSELOR <1 %; AT/AF burden of 3.4%, atrial fibrillation/rapid rate noted. Overall normal device function. [id number] Cardiac Device Interrogation, pacemaker Procedure code (CPT) selection complete Assessment & Plan Assessment & Plan (1) Paroxysmal atrial fibrillation: Code(s): I48.0 - Paroxysmal atrial fibrillation Coding Level of Care Code Procedure Only Diagnoses Paroxysmal atrial fibrillation I48.0 CPT Codes Cardiac Device Check - Cardiac Device 12: [id number] Cardiac Device Interrogation, pacemaker ([id number])
== END ==
PROVIDERS: PCP Internal Medicine; Visit Provider Internal Medicine
DX: I48.0 Paroxysmal atrial fibrillation (principal); Z95.0 Presence of cardiac pacemaker
CPT/HCPCS: 93294

== ENCOUNTER 2023-03-11 13:16 | Outpatient (AMB) | payer MEDICARE, SELFPAY ==
--- NOTE | 2023-03-11 13:18 | MHC.OFFVIS ---
Intake Vital Signs 03/11/23 13:19 Height 5 ft 3 in BMI Reason not done Patient refused/unable BP 142/66 H Blood Pressure Location Lt brachial Position Sitting Pulse 70 Intake Visit Reasons: fu Intake Note: follow up Shirt Cleaner Required: No Accompanied by: Spouse Allergies morphine [Morphine] Allergy (Severe, Verified 03/11/23 13:23) ITCHING, hives cefdinir Allergy (Intermediate, Verified 03/11/23 13:23) hives sulfamethoxazole Allergy (Intermediate, Verified 03/11/23 13:23) RASH trimethoprim Allergy (Intermediate, Verified 03/11/23 13:23) RASH duloxetine Adverse Reaction (Severe, Verified 03/11/23 13:23) altered behavior betina Adverse Reaction (Mild, Verified 03/11/23 13:23) RUNNY NOSE mustard Adverse Reaction (Mild, Verified 03/11/23 13:23) RUNNY NOSE potato [POTATO] Adverse Reaction (Mild, Verified 03/11/23 13:23) ITCHY NOSE soybean Adverse Reaction (Mild, Verified 03/11/23 13:23) RUNNY NOSE cheese Adverse Reaction (Intermediate, Uncoded 03/11/23 13:23) head congestion Medication List - Last Reconciled 03/11/23 by Genaro Sweet MD acetaminophen 650 mg PO Q6H PRN amoxicillin 2,000 mg (4 x 500 mg) PO ONCE 1 day atenolol 50 mg See Protocol PO BID 90 days baclofen 10 mg PO TID PRN 30 days blood sugar diagnostic (OneTouch Verio test strips) Use 1 test strip twice a day blood-glucose meter (OneTouch Verio Meter) As directed [id number] 50-325-40 mg 1 tab PO Q4H PRN 4 days cholecalciferol (vitamin D3) 2,000 units PO DAILY 90 days cyanocobalamin (vitamin B-12) 1,000 mcg PO DAILY 90 days docusate sodium (DOK) 100 mg PO BID PRN 90 days dulaglutide (Trulicity) 3 mg (0.5 mL) subcut QWEEK 90 days empagliflozin (Jardiance) 25 mg PO DAILY 90 days enoxaparin 100 mg subcut DAILY escitalopram oxalate (Lexapro) 10 mg PO DAILY 90 days estradiol 0.01%(0.1mg/gram) 1 appl vaginal 3XW fenofibrate 160 mg PO DAILY 90 days ferrous sulfate 325 mg PO DAILY 90 days fluticasone propionate 50 mcg/actuation 1 spray intranasal DAILY 90 days furosemide 40 mg PO DAILY 30 days furosemide (Lasix) 20 mg PO DAILY gabapentin 600 mg PO TID 90 days hydroxychloroquine (Plaquenil) 200 mg PO BID insulin degludec (Tresiba FlexTouch U-100 insulin) 10 units (0.1 mL) subcut BEDTIME 90 days ketoconazole 2% 1 appl topical BID 30 days lancets USe 1 lancet once a day loratadine 10 mg PO DAILY 90 days losartan 25 mg PO DAILY 90 days magnesium 200 mg PO DAILY 90 days metformin 1,000 mg PO BIDWM 90 days mirabegron ER (Myrbetriq) 50 mg PO DAILY 90 days nystatin 1 appl topical DAILY 15 days omeprazole 40 mg PO DAILY@0630 90 days oxycodone 5 mg PO Q6H PRN 30 days riboflavin (vitamin B2) 400 mg PO DAILY rivaroxaban (Xarelto) 20 mg PO DAILY@1700 90 days ropinirole 0.5 mg (2 x 0.25 mg) PO BEDTIME 90 days rosuvastatin (Crestor) 40 mg PO BEDTIME 90 days sennosides (senna) 17.2 mg (2 x 8.6 mg) PO BEDTIME PRN 90 days thiamine HCl (vitamin B1) 100 mg PO DAILY 90 days trazodone 100 mg PO BEDTIME 90 days HPI HPI Comments History of Present Illness Details Missy returns for follow-up regarding various cardiac issues. To recall, she has coronary disease and underwent drug-eluting stent in her marginal artery in 2016. She has chronic heart failure with preserved ejection fraction and paroxysmal atrial fibrillation and hypertension. Multiple strokes in the last couple years and has been hospitalized to [facility] as well as [facility]. Few months back, she was hospitalized and in that setting had atrial fibrillation rapid response but also had significant conversion pauses of greater than 6 seconds. During that time, she had some lightheadedness. Eventually had a permanent pacemaker implanted and discharged home. Then one further admission with a fall and it seems that she had cervical spine fracture. She was admitted to [facility] and then went to rehab. She still in rehab. Comes to the clinic in a wheelchair. No new cardiac symptoms however. [facility] Medical History (HFpEF) heart failure with preserved ejection fraction Acute upper GI bleed Anemia Anemia Atherosclerotic cardiovascular disease Chronic heart failure with preserved ejection fraction (HFpEF) COVID-19 CVA (cerebral vascular accident) Diabetes mellitus Diabetes type 2, uncontrolled Diabetic neuropathy Diabetic polyneuropathy Dizziness Dyslipidemia Essential hypertension [place] Hand pain Head injury Headache Hospital discharge follow-up Hyperlipidemia LDL goal <70 Iron deficiency anemia Ischemic stroke Left hand pain Left hip pain Left knee pain Left shoulder pain Lumbar degenerative disc disease Mild recurrent major depression Obesity due to excess calories Other and unspecified hyperlipidemia Paroxysmal atrial fibrillation PONV (postoperative nausea and vomiting) Positive occult stool blood test Post-dural puncture headache Proteinuria Pulmonary hypertension Pure hypercholesterolemia Thiamine deficiency Thrombocytosis Thrombus 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 Urge urinary incontinence Surgical History S/P cardiac pacemaker procedure S/P insertion of spinal cord stimulator H/O colonoscopy History of Mohs micrographic surgery for skin cancer Hx of cervical spine surgery History of partial hysterectomy Hx of cardiac cath Family History Father Rectal cancer Hypertension Arthritis of knee CVD (cardiovascular disease) Mother Hypertension CVD (cardiovascular disease) Myocardial infarction Diabetes Social History Household Members: Spouse Housing: Apartment Are you a primary youth care professional to a significant other at home: No Alcohol intake: never Patient Tobacco Use Status: Former Tobacco user Quit Date: 1993 Tobacco use type: Cigarette e-Cigarette/Vaping Use: Never Used Second Hand Smoke Exposure: No Advance Directives Date on File: 07/17/20 service: No Current occupational status: retired Current occupation: Lt handed Cognitive needs: Yes (scodor/walker) Hearing needs: No Vision needs: Yes (glasses) Review of Systems Const Denies weakness ENT Denies dizziness Card Denies chest pain, Denies chest pain with activity, Denies syncope, Denies rapid heart rate, Denies pedal edema, Denies edema, Denies leg edema, Denies lightheadedness, Denies palpitations, Denies dyspnea, Denies dyspnea on exertion and Denies orthopnea Resp Denies cough, Denies dyspnea and Denies dyspnea on exertion GI Denies hematochezia and Denies change in stool character Musc Denies abnormal gait, Denies muscle cramps, Denies muscle weakness, Denies numbness, Denies radiating pain into limb and Denies tingling Neuro Denies abnormal gait, Denies dizziness, Denies syncope, Denies numbness, Denies tingling and Denies weakness Endo Denies palpitations Physical Exam Vital Signs: Last Vital Signs Pulse 70 03/11/23 13:19 BP 142/66 H 03/11/23 13:19 Const General: comfortable and no acute distress Orientation/consciousness: patient oriented x3 HEENT Other: Unremarkable Head: Yes normal to inspection Neck Neck: Yes normal visual inspection Chest Chest palpation & inspection: normal inspection of the chest Resp Auscultation: clear to auscultation bilaterally Cardio Palpation: normal PMI Heart sounds: S1 normal heart sound present, S2 normal heart sound present, no gallops, Murmur heart sound present systolic II/ and at the right sternal border and no rubs GI Palpation (GI): Soft to palpation Back/Spine/Pelvis Other: unremarkable Skin General skin exam: no rashes or lesions noted Neuro General: patient oriented x3 Extrem General: Yes normal to inspection Psych Mental Status: mental status grossly normal Assessment & Plan Assessment & Plan (1) Paroxysmal atrial fibrillation: Code(s): I48.0 - Paroxysmal atrial fibrillation Plan: In sinus rhythm. Continue atenolol. Has had Multaq in the past but due to some interstitial findings CT scan, that was stopped. Possibly Sotalol in the future if needed. Otherwise, continue anticoagulation. (2) Atherosclerotic cardiovascular disease: Code(s): I25.10 - Atherosclerotic heart disease of [place] coronary artery without angina pectoris Plan: Cardiac [id number] 2 vessel disease with RESPITE CARE PROVIDER of the RCA; collaterals from distal circumflex; severe lesion in OM2 ostium, culprit, status post JACY. Recent stress Mibi was abnormal with lateral wall findings. Another cardiac catheterization was planned but due to recent cervical spine fracture and being rehab, we can hold off for now. Ischemic workup was actually done due to a planned knee surgery but that may not happen either. Clinically, she has got no symptoms. No angina. Continue medications. (3) Chronic heart failure with preserved ejection fraction (HFpEF): Code(s): I50.32 - Chronic diastolic (congestive) heart failure Plan: Continue diuretics. (4) Non-rheumatic aortic stenosis: Code(s): I35.0 - Nonrheumatic aortic (valve) stenosis Plan: In the last echocardiogram from July this year, moderate aortic valve calcification with [id number] aortic stenosis. We will follow this periodically. (5) Mitral annular calcification: Code(s): I34.81 - Nonrheumatic mitral (valve) annulus calcification Plan: She has significant mitral annular calcification/moderate mitral stenosis. Will need to be followed on echocardiograms. (6) Ischemic stroke: Code(s): I63.9 - Cerebral infarction, unspecified Plan: Pr [facility] neurovascular note, she had left M1 occlusion and possible left M2 occlusion as well. Status post thrombectomy. CT [place] [place] internal carotid artery stenosis-70% on the right side and 50% on the left side. CTA from [place] in July 2020 shows internal carotid artery plaque at the origins worse on the left side at approximately 50%. In the most recent vascular ultrasound, 50-79% stenosis on the right side. Overall, thought to be stable. Left side no significant disease. Risk factor modification as much able. She is not a good surgical candidate. (7) Essential hypertension: Code(s): I10 - Essential (primary) hypertension Plan: Stable. No changes. (8) Other and unspecified hyperlipidemia: Code(s): E78.5 - Hyperlipidemia, unspecified Plan: On statins and fenofibrate. Last LDL 48 mg/dL. Last triglycerides 88 mg/dL. Plan Discussed with significant other as well as daughter. Coding Level of Care Code Est Pt Level 4 (49406) Diagnoses Paroxysmal atrial fibrillation I48.0 Atherosclerotic cardiovascular disease I25.10 Chronic heart failure with preserved ejection fraction (HFpEF) I50.32 Non-rheumatic aortic stenosis I35.0 Mitral annular calcification I34.81 Ischemic stroke I63.9 Essential hypertension I10 Other and unspecified hyperlipidemia E78.5
[2023-03-11 13:19] VITALS: BP 142/66; PULSE 70
== END 2023-03-11 13:57 | disposition home or self-care (01) ==
PROVIDERS: PCP Internal Medicine; Visit Provider Internal Medicine
DX: I48.0 Paroxysmal atrial fibrillation (principal); I25.10 Atherosclerotic heart disease of native coronary artery without angina pectoris; I50.32 Chronic diastolic (congestive) heart failure; I35.0 Nonrheumatic aortic (valve) stenosis; I34.81 Nonrheumatic mitral (valve) annulus calcification; I63.9 Cerebral infarction, unspecified; I10 Essential (primary) hypertension; E78.5 Hyperlipidemia, unspecified
CPT/HCPCS: 99214

== ENCOUNTER → 2023-03-11 13:16 | Outpatient (BNVA) | payer MEDICARE, SELFPAY | PROVIDERS: PCP Internal Medicine; Visit Provider Internal Medicine | DX: I48.0 Paroxysmal atrial fibrillation (principal); I25.10 Atherosclerotic heart disease of native coronary artery without angina pectoris; I11.0 Hypertensive heart disease with heart failure; I50.32 Chronic diastolic (congestive) heart failure; I35.0 Nonrheumatic aortic (valve) stenosis; I34.81 Nonrheumatic mitral (valve) annulus calcification; E78.5 Hyperlipidemia, unspecified; Z86.73 Personal history of transient ischemic attack (TIA), and cerebral infarction without residual deficits | CPT/HCPCS: 99212 ==

== ENCOUNTER 2023-03-26 16:19 | Outpatient (AMB) | payer MEDICARE, SELFPAY ==
--- NOTE | 2023-03-26 16:21 | MHC.PC.OV ---
Vital Signs 03/26/23 16:27 03/26/23 18:08 Height 5 ft 3 in Weight 199 lb 15.348 oz BMI 35.4 BP 72/40 L 80/60 L Blood Pressure Location Rt brachial Rt brachial Position Sitting Sitting Pulse 70 Pulse Source Pulse Oximeter Pulse Oximetry (%) 97 Oxygen Delivery Method Room Air Intake Visit Reasons: HDF Intake Note: Patient here for Rehab follow up Rosio Astudillo sent from [facility] Credit Administration Manager Required: No Accompanied by: spouse, daughter Allergies morphine [Morphine] Allergy (Severe, Verified 03/26/23 16:46) ITCHING, hives cefdinir Allergy (Intermediate, Verified 03/26/23 16:46) hives sulfamethoxazole Allergy (Intermediate, Verified 03/26/23 16:46) RASH trimethoprim Allergy (Intermediate, Verified 03/26/23 16:46) RASH duloxetine Adverse Reaction (Severe, Verified 03/26/23 16:46) altered behavior betina Adverse Reaction (Mild, Verified 03/26/23 16:46) RUNNY NOSE mustard Adverse Reaction (Mild, Verified 03/26/23 16:46) RUNNY NOSE potato [POTATO] Adverse Reaction (Mild, Verified 03/26/23 16:46) ITCHY NOSE soybean Adverse Reaction (Mild, Verified 03/26/23 16:46) RUNNY NOSE cheese Adverse Reaction (Intermediate, Uncoded 03/26/23 16:46) head congestion Medication List - Last Reconciled 03/26/23 by Marla Bray MD acetaminophen 650 mg (2 x 325 mg) PO Q6H PRN atenolol 50 mg See Protocol PO BID 90 days baclofen 10 mg PO TID PRN 30 days betamethasone dipropionate 0.05% 1 appl topical DAILY PRN bisacodyl 5 mg PO BEDTIME blood sugar diagnostic (OneTouch Verio test strips) Use 1 test strip twice a day blood-glucose meter (OneTouch Verio Meter) As directed [id number] 50-325-40 mg 1 tab PO Q4H PRN 4 days cyanocobalamin (vitamin B-12) 1,000 mcg PO DAILY 90 days digoxin 125 mcg PO DAILY docusate sodium (DOK) 100 mg PO BID PRN 90 days dulaglutide (Trulicity) 3 mg (0.5 mL) subcut QWEEK 90 days empagliflozin (Jardiance) 25 mg PO DAILY 90 days enoxaparin 100 mg subcut DAILY escitalopram oxalate (Lexapro) 20 mg PO DAILY estradiol 0.01%(0.1mg/gram) 1 appl vaginal 3XW ezetimibe (Zetia) 10 mg PO DAILY fenofibrate 160 mg PO DAILY 90 days fesoterodine ER (Toviaz) 8 mg PO DAILY fluticasone propionate 50 mcg/actuation 1 spray intranasal DAILY 90 days furosemide 40 mg PO DAILY 30 days gabapentin 400 mg PO BID hydroxychloroquine (Plaquenil) 200 mg PO BID insulin degludec (Tresiba FlexTouch U-100 insulin) 15 units subcut BEDTIME ketoconazole 2% 1 appl topical BID 30 days lancets USe 1 lancet once a day loratadine 10 mg PO DAILY 90 days lorazepam 0.5 mg PO DAILY PRN losartan 75 mg PO DAILY magnesium 200 mg PO DAILY 90 days meclizine 12.5 mg PO BID PRN metformin 1,000 mg PO BIDWM 90 days mirabegron ER (Myrbetriq) 50 mg PO DAILY 90 days multivitamin 1 tab PO DAILY nystatin 1 appl topical DAILY 15 days omeprazole 40 mg PO DAILY@0630 90 days ondansetron HCl 4 mg PO Q6H oxycodone 5 mg PO Q6H PRN 30 days polyethylene glycol 3350 (Miralax) 17 grams PO DAILY riboflavin (vitamin B2) 400 mg PO DAILY rivaroxaban (Xarelto) 20 mg PO DAILY@1700 90 days ropinirole 0.5 mg (2 x 0.25 mg) PO BEDTIME 90 days rosuvastatin (Crestor) 40 mg PO BEDTIME 90 days sennosides (senna) 17.2 mg (2 x 8.6 mg) PO BEDTIME PRN 90 days thiamine HCl (vitamin B1) 100 mg PO DAILY 90 days trazodone 50 mg PO BID Tobacco use date assessed: 10/21/22 Fall risk assessment: 1 Fall in past year Last assessed Fall Risk: 03/26/23 Dental Screening Dental Screen Date: 03/26/23 Did you have a dental visit in the last 12 months?: No Did you have a dental problem in the last 6 months where you did not have access to dental care?: No Was dental information given to patient?: Patient has dentist HPI HPI Comments History of Present Illness Details THis is a 72 year old female with diabetes mellitus type 2, hypertension, congestive heart failure with preserved ejection fraction and atrial flutter that comes [facility]23 after having a closed cervical fracture in December 2022. Had a collar for 3 months and currently is having difficulty flexing and extending the neck. Receiving physical therapy at home as per daughter. Currently in wheelchiar due to weakness after walking few steps. Fhe did receive physical therapy while in rehab. A1c within goal. BP too low and this is why I will hold Losartan. No chest pain, shortness of breath or leg swelling. Saw Cardiology recently for her heart failure and atrial flutter. On chronic anticoagulation for her atrial flutter. Complaints of insomnia and I will move escitalopram for bedtime and decrease trazodone to 50 mg for 3 days and then disconitnue it. Ferrous sulfate discontinue due to stable hemoglobin. Complaints of polyuria and urinary incontinence. [facility] Medical History (Updated 03/26/23 @ 18:15 by Marla Bray MD) (HFpEF) heart failure with preserved ejection fraction Mild recurrent major depression Hyperlipidemia LDL goal <70 Post-dural puncture headache PONV (postoperative nausea and vomiting) Positive occult stool blood test [place] Headache Anemia Acute upper GI bleed Diabetic polyneuropathy COVID-19 Thiamine deficiency Hand pain CVA (cerebral vascular accident) Head injury Left shoulder pain Left knee pain Left hip pain Left hand pain Dizziness Diabetic neuropathy Diabetes type 2, uncontrolled Type 2 diabetes mellitus with other diabetic kidney complication Proteinuria Type 2 diabetes mellitus with diabetic polyneuropathy Dyslipidemia Obesity due to excess calories Other and unspecified hyperlipidemia Chronic heart failure with preserved ejection fraction (HFpEF) Anemia Thrombocytosis Pulmonary hypertension Ischemic stroke Paroxysmal atrial fibrillation Atherosclerotic cardiovascular disease Hospital discharge follow-up Thrombus Urge urinary incontinence Iron deficiency anemia Pure hypercholesterolemia Essential hypertension Diabetes mellitus Lumbar degenerative disc disease Surgical History S/P cardiac pacemaker procedure S/P insertion of spinal cord stimulator H/O colonoscopy History of Mohs micrographic surgery for skin cancer Hx of cervical spine surgery History of partial hysterectomy Hx of cardiac cath Family History Father Rectal cancer Hypertension Arthritis of knee CVD (cardiovascular disease) Mother Hypertension CVD (cardiovascular disease) Myocardial infarction Diabetes Social History Household Members: Spouse Housing: Apartment Are you a primary career specialist to a significant other at home: No Alcohol intake: never Patient Tobacco Use Status: Former Tobacco user Quit Date: 1993 Tobacco use type: Cigarette e-Cigarette/Vaping Use: Never Used Second Hand Smoke Exposure: No Advance Directives Date on File: 07/17/20 service: No Current occupational status: retired Current occupation: Lt handed Cognitive needs: Yes (scodor/walker) Hearing needs: No Vision needs: Yes (glasses) Questionnaire Thrive Questionnaire Date Thrive assessed: 05/30/22 ALY-7 AMB Questionnaire ALY-7 Date ALY - 7 assessed: 05/30/22 Source: Developed by Drs. Otto Zayas, Rima Frankel, Brenden Zhang and colleagues, with an educational norma from [employer]. Review of Systems Const All systems reviewed & are unremarkable except as noted in HPI and below Eyes Reports no additional complaints, Denies change in vision and Denies other visual disturbances ENT Reports neck pain Card Denies chest pain at rest, Denies chest pain with activity, Denies edema, Denies irregular heart rhythm, Denies claudication, Denies dyspnea, Denies dyspnea on exertion, Denies orthopnea, Denies paroxysmal nocturnal dyspnea and Denies slow heart rate Resp Denies cough, Denies dyspnea and Denies dyspnea on exertion GI Denies abdominal pain, Denies change in bowel habits, Denies excessive flatus, Denies nausea and Denies vomiting Denies urinary incontinence, Denies urinary hesitancy and Denies urinary urgency Musc Denies abnormal gait, Reports back pain, Denies atrophy, Denies deformity, Reports arthralgias, Denies limited range of motion, Reports neck pain and Reports stiffness Skin/Breast Denies bleeding lesions, Denies changing lesions and Denies rash Neuro Denies abnormal gait and Denies lack of coordination Physical exam (Primary Care) Vital Signs: Last Vital Signs Pulse 70 03/26/23 16:27 BP 72/40 L 03/26/23 16:27 Pulse Ox 97 03/26/23 16:27 Oxygen Delivery Method Room Air 03/26/23 16:27 BMI result Body Mass Index 35.4 Tobacco/Smoking Status: Tobacco use Status Tobacco use date assessed 10/21/22 03/26/23 16:21 Patient Tobacco Use Status Former Tobacco user 03/26/23 16:21 Tobacco use type Cigarette 03/26/23 16:21 e-Cigarette/Vaping Use Never Used 03/26/23 16:21 Thrive Assessment: Date of Thrive Assessment Date Thrive assessed 05/30/22 03/26/23 16:21 Eyes General: appearance normal, both eyes and all related structures Eyelids: Yes eyelids normal Conjunctivae: conjunctivae normal Neck Other: limited neck flexion/extension Resp Effort & Inspection: normal respiratory effort Auscultation: clear to auscultation bilaterally Cardio Jugular venous distension: no JVD Rate: regular rate Rhythm: regular rhythm Heart sounds: S1 normal heart sound present and S2 normal heart sound present GI Inspection: Yes normal to inspection Palpation (GI): Soft to palpation and nontender Auscultation: normal bowel sounds Skin General skin exam: no rashes or lesions noted Extrem General: Yes full ROM Results AMB Hemoglobin A1c AMB Hemoglobin A1c 6.3 % Last Edit by KERRY Wilson on 03/26/23 17:15 Results Reviewed Results Reviewed: Laboratory Last Values Hgb A1c (Clinic) 6.3 % (4.0-6.0) H 03/26/23 17:13 Assessment and Plan Assessment & Plan (1) Hospital discharge follow-up: Code(s): Z09 - Encounter for follow-up examination after completed treatment for conditions other than malignant neoplasm Plan: Discharge from [facility] 03/24/2023 after been admitted in December due to closed cervical fracture. Had a collar for 3 months. Continues to have PT at home. (2) Fracture, cervical vertebra: Code(s): S12.9XXA - Fracture of neck, unspecified, initial encounter Plan: Continue PT at home. (3) Chronic heart failure with preserved ejection fraction (HFpEF): Code(s): I50.32 - Chronic diastolic (congestive) heart failure Plan: Follow up with cardiology. The goal is to not gain 5 lbs in a week. (4) Diabetes mellitus: Code(s): E11.9 - Type 2 diabetes mellitus without complications Qualifiers: Diabetes mellitus type: type 2 Diabetes mellitus extermination inspector insulin use: with extermination inspector use Diabetes mellitus complication status: with hyperglycemia Qualified Code(s): E11.65 - Type 2 diabetes mellitus with hyperglycemia; Z79.4 - termite exterminator helper (current) use of insulin Plan: Continue insulin. A1c goal is equal or less than 7%. (5) Atrial flutter: Code(s): I48.92 - Unspecified atrial flutter Plan: Continue Xarelto. (6) Essential hypertension: Code(s): I10 - Essential (primary) hypertension Plan: Hold Losartan. BP goal is equal or less than 130/80 but above 90/60. Orders: Orders Complete Blood Count Auto Diff Today D64.9 - Anemia, unspecified IRON PROFILE Today D64.9 - Anemia, unspecified Vitamin B12 and Folate Today E53.8 - Deficiency of other specified B group vitamins AMB Hemoglobin A1c Today E11.42 - Type 2 diabetes mellitus with diabetic polyneuropathy Vitamin D 25-OH Total Today E55.9 - Vitamin D deficiency, unspecified Lipid Panel Today E78.5 - Hyperlipidemia, unspecified Microalbumin, Random (w Creat) Today E11.9 - Type 2 diabetes mellitus without complications Comprehensive [place]. Panel Fast Today I35.0 - Nonrheumatic aortic (valve) stenosis Medications: Changed From insulin degludec (Tresiba FlexTouch U-100 insulin) 10 units (0.1 mL) subcut BEDTIME 90 days 9 mL 1RF To insulin degludec (Tresiba FlexTouch U-100 insulin) 15 units subcut BEDTIME From gabapentin 600 mg PO TID 90 days 270 tabs 1RF To gabapentin 400 mg PO BID From escitalopram oxalate (Lexapro) 10 mg PO DAILY 90 days 90 tabs 1RF To escitalopram oxalate (Lexapro) 20 mg PO DAILY Discontinued ferrous sulfate Discontinued Reason: Patient Completed Course 325 mg PO DAILY 90 days 90 tabs 1RF Coding Level of Care Code TCM Mod MDM <= 7 Days Diagnoses Hospital discharge follow-up Z09 Fracture, cervical vertebra S12.9XXA Chronic heart failure with preserved ejection fraction (HFpEF) I50.32 Type 2 diabetes mellitus with hyperglycemia, with long-term current use of insulin E11.65; Z79.4 Diabetes mellitus type: type 2 Diabetes mellitus correction insulin use: with extermination inspector use Diabetes mellitus complication status: with hyperglycemia Atrial flutter I48.92 Essential hypertension I10 Time Spent (min) 40
[2023-03-26 16:27] VITALS: BP 72/40; PULSE 70; O2SAT 97; BMI 35.4
[2023-03-26 18:08] VITALS: BP 80/60
== END 2023-03-26 17:00 ==
PROVIDERS: PCP Internal Medicine; Visit Provider Internal Medicine
DX: E11.65 Type 2 diabetes mellitus with hyperglycemia (principal); S12.9XXA Fracture of neck, unspecified, initial encounter; I50.32 Chronic diastolic (congestive) heart failure; Z79.4 Long term (current) use of insulin; I48.92 Unspecified atrial flutter; Z09 Encounter for follow-up examination after completed treatment for conditions other than malignant neoplasm; I10 Essential (primary) hypertension; E11.42 Type 2 diabetes mellitus with diabetic polyneuropathy
CPT/HCPCS: 83036; 99214

== ENCOUNTER 2023-03-30 12:25 | Inpatient (IN) | payer MEDICARE, SELFPAY ==
--- NOTE | ~2023-03-30 | XR_ITS ---
EXAMINATION: XR SECOND FINGER, LEFT CLINICAL INFORMATION: Splinted/foreign body in tip. COMPARISON: March 19, 2021. TECHNIQUE: 3 views of the left second finger. FINDINGS: There is no evidence of acute fracture or dislocation of the left second finger. No radiopaque foreign body is identified about the distal aspect. There is some mild soft tissue swelling. There is stable but severe degenerative change of the second distal interphalangeal joint with loss of joint space and articular irregularity. There is some medial angulation of the distal phalanx. There is also noted to be degenerative narrowing of the fifth proximal interphalangeal joint. There is marginal spurring at the proximal and distal interphalangeal joints. There appears to be a small erosion base of the fifth proximal phalanx. These appears to be the only possible erosion present and other findings are suggestive of generalized osteoarthritis. Prominent vascular calcifications are present. XR/XR finger LT min 2V IMPRESSION: No radiopaque foreign body identified about the distal left second finger. Severe degenerative joint disease involving the second distal interphalangeal joint.
--- NOTE | ~2023-03-30 | XR_ITS ---
EXAMINATION: XR CHEST CLINICAL INFORMATION: Shortness of breath COMPARISON: Radiograph from 11/03/2022 TECHNIQUE: Frontal view of the chest was obtained. FINDINGS: Chronic interstitial lung markings. No pneumothorax. Trachea is midline. Cardiac mediastinal silhouette is stable. Left-sided dual-lead pacer, stable. Aorta demonstrates atherosclerotic calcifications. No large pleural effusion. Degenerative changes of the thoracolumbar spine. Partially visualized spinal stimulator leads overlying the midthoracic spine. Degenerative changes of the bilateral glenohumeral joints. Soft tissues are unremarkable. XR/XR chest 1V IMPRESSION: No acute cardiopulmonary process.
--- NOTE | ~2023-03-30 | CT_ITS ---
EXAMINATION: CT brain and CT cervical spine without contrast. CLINICAL INDICATIONS: Fall. History of cervical surgery 30 years ago. Pain. COMPARISON: CT brain 12/11/2022 TECHNIQUE: 5 mm thin axial and reformatted 2 mm thin sagittal and coronal images of brain were obtained without contrast. Subsequently axial 2 mm thin and reformatted 2 mm thin sagittal and coronal images of cervical spine were obtained. DLP 1306. This CT examination was performed using dose optimization technique as appropriate, variously including the following: Automated exposure control Adjustment of MA and/or KV according to patient size(this includes techniques or standardized protocols for targeted exams where dose is matched to indication/reason for exam; extremities or head. Use of iterative reconstruction techniques. FINDINGS: Brain: There is no acute intra-axial, extra-axial bleed, masses, collection or midline shift. There is no acute infarction in evolution. There is no edema. The lateral ventricles are symmetrical in size and configuration but mildly enlarged. The small to white matter differentiation is maintained normal. Bone windows reveal no calvarial abnormality. No scalp soft tissue abnormality seen. Bilateral paranasal sinuses and mastoid air cells are well-aerated. Cervical spine: There is normal cervical lordosis. The vertebral heights, alignment are normal. There is loss of disc height C3-C4, C4-C5, C6-C7 and C7-T1 disc levels with mild ventral spondylosis. The craniovertebral junction and the C1-C2 alignment is normal. No visible acute fracture, dislocation or subluxation seen. There is a wide laminectomy from C3 through C6 vertebra. Mild left C4-C5 facet and C6-C7. Facet joint arthropathy and hypertrophy. Moderate spondylosis seen posteriorly at C6-C7 disc level. CT/CT cervical spine wo IV con IMPRESSION: 1. No acute intracranial process seen. 2. No acute fracture, dislocation or subluxation seen in cervical spine. 3. There are degenerative disc changes with spondylosis C3-C4, C4-C5, C6-C7 and C7-T1 disc levels. Wide laminectomy from C3 through C6 vertebra.
[2023-03-30 12:43] VITALS: BP 115/60; PULSE 80; O2SAT 84
[2023-03-30 12:46] VITALS: BP 109/53; PULSE 70; RESP 18; TEMP 36.6; O2SAT 88; BMI 34.5
[2023-03-30 13:03] VITALS: RESP 18; O2SAT 95
--- NOTE | 2023-03-30 13:07 | ECG_ITS ---
Test Reason : weakness Blood Pressure : / mmHG Vent. Rate : 070 BPM Atrial Rate : 070 BPM P-R Int : 240 ms QRS Dur : 104 ms QT Int : 382 ms P-R-T Axes : 000 -10 021 degrees QTc Int : 412 ms Electronic ventricular pacemaker Left anterior fascicular block Low voltage QRS Intra-ventricular conduction delay Abnormal ECG When compared with ECG of 11-DEC-2022 10:35, Questionable change in QRS axis T wave amplitude has decreased in Anterior leads Referred By: Generic ED Physician Electronically Signed By:DAYRON BARRERA MD
[2023-03-30 13:31] LABS: MANUAL DIFF FLAG NO
[2023-03-30 13:32] LABS: Basophils Absolute Auto 0.1 X10*3/uL (0.0-0.2); Basophils Percent Auto 0.7 % (0-2); Eosinophils Absolute Auto 0.3 X10*3/uL (0.0-0.4); Eosinophils Percent Auto 2.9 % (0-4); Hematocrit 37.4 % (37.0-47.0); Hemoglobin 11.6 g/dl (12.0-16.0); Imm Gran Abs Auto 0.02 X10*3/uL (0.00-0.03); Imm Gran Pct Auto 0.2 % (0.0-0.4); Lymphocytes Absolute Auto 2.1 X10*3/uL (1.2-4.9); Lymphocytes Percent Auto 23.3 % (20-40); Mean Corpuscular Hemoglobin 26.9 pg (27.0-33.0); Mean Corpuscular Volume 86.6 fL (80.0-98.0); Monocytes Absolute Auto 0.8 X10*3/uL (0.1-1.2); Monocytes Percent Auto 8.8 % (2-11); Neutrophils Absolute Auto 5.8 x10*3/uL (2.0-8.3); Neutrophils Percent Auto 64.1 % (45-73); Platelet Count 330 X10*3/uL (160-400); Red Blood Count 4.32 X10*6/uL (4.20-5.50); Red Cell Distribution Width 16.7 % (11.0-16.0)
[2023-03-30 13:43] LABS: Lactic Acid 0.9 mmol/L (0.5-2.0)
[2023-03-30 13:48] LABS: Alanine Aminotransferase 13 U/L (0-31); Albumin Level 3.4 g/dL (3.5-5.0); Alkaline Phosphatase 60 U/L (39-117); Anion Gap 14 (12-20); Aspartate Amino Transferase 18 U/L (5-31); Bilirubin Total 0.5 mg/dL (0.0-1.0); Blood Urea Nitrogen 33 mg/dL (9-16); Calcium 9.4 mg/dL (8.4-10.2); Carbon Dioxide 30 mmol/L (22-29); Chloride 95 mmol/L (96-108); Creatinine Clr Calc Pharmacy 48.2; Estimated Glomerular Filt Rate 50; Glucose Random 141 mg/dL (60-115); Potassium 4.6 mmol/L (3.3-5.1); Sodium 134 mmol/L (135-145); Total Protein 6.4 g/dL (6.5-8.0)
--- NOTE | 2023-03-30 13:54 | ED.GENADULT ---
HPI - General Adult General Chief complaint: General Medical Stated complaint: INCR WEAKNESS PER EMS Time Seen by Provider: 03/30/23 14:32 Source: patient Mode of arrival: EMS Limitations: no limitations History of Present Illness HPI narrative: This is a 72 years old female presented emergency department with increasing weakness malaise. She has multiple medical problems including paroxysmal afebrile, heart failure, hypertension, status post pacemaker, chronic back pain DJD. She has difficulty with ambulation at baseline she has been in the rehab in the past. Onset (ago): day(s) (2) Radiation: non-radiation Severity: moderate Pain Consistency: constant Relieving factors: none Exacerbating factors: none Associated symptoms: denies other symptoms Related Data Home Medications Medication Instructions Recorded Confirmed betamethasone dipropionate 0.05 % 1 appl topical DAILY PRN 03/26/23 03/26/23 topical cream bisacodyl 5 mg tablet,delayed 5 mg PO BEDTIME 03/26/23 03/26/23 release digoxin 125 mcg (0.125 mg) tablet 125 mcg PO DAILY 03/26/23 03/26/23 escitalopram oxalate 10 mg tablet 20 mg PO DAILY 03/26/23 03/26/23 (Lexapro) ezetimibe 10 mg tablet (Zetia) 10 mg PO DAILY 03/26/23 03/26/23 fesoterodine 8 mg tablet,extended 8 mg PO DAILY 03/26/23 03/26/23 release 24 hr (Toviaz) gabapentin 600 mg tablet 400 mg PO BID 03/26/23 03/26/23 insulin degludec 100 unit/mL (3 15 unit subcut BEDTIME 03/26/23 03/26/23 mL) subcutaneous pen (Tresiba FlexTouch U-100 insulin) lorazepam 0.5 mg tablet 0.5 mg PO DAILY PRN 03/26/23 03/26/23 meclizine 12.5 mg tablet 12.5 mg PO BID PRN 03/26/23 03/26/23 multivitamin 1 tab PO DAILY 03/26/23 03/26/23 ondansetron HCl 4 mg tablet 4 mg PO Q6H 03/26/23 03/26/23 polyethylene glycol 3350 17 17 g PO DAILY 03/26/23 03/26/23 gram/dose oral powder (Miralax) Previous Rx's Medication Instructions Recorded blood-glucose meter (OneTouch #1 ea 06/12/22 Verio Meter) enoxaparin 100 mg/mL subcutaneous 100 mg subcut DAILY #1 mL 11/19/22 syringe acetaminophen 325 mg tablet 650 mg (2 x 325 mg) PO Q6H PRN 03/26/23 Pain (Scale Score 1-3) #60 tabs atenolol 50 mg tablet 50 mg PO BID 90 days #180 tabs 03/26/23 baclofen 10 mg tablet 10 mg PO TID PRN muscle spasm 30 03/26/23 days #90 tabs blood sugar diagnostic (OneTouch #100 ea 03/26/23 Verio test strips) zyacqqrbfv-ewlnpfsxptwab-xlksliyo 1 tab PO Q4H PRN Headache 4 days 03/26/23 50 mg-325 mg-40 mg tablet #24 tabs cyanocobalamin (vitamin B-12) 1,000 mcg PO DAILY 90 days #90 tabs 03/26/23 1,000 mcg tablet docusate sodium 100 mg capsule 100 mg PO BID PRN constipation 90 03/26/23 (DOK) days #180 caps dulaglutide 3 mg/0.5 mL 3 mg (0.5 mL) subcut QWEEK 90 days 03/26/23 subcutaneous pen injector #6.5 mL (Trulicity) empagliflozin 25 mg tablet 25 mg PO DAILY 90 days #90 tabs 03/26/23 (Jardiance) estradiol 0.01% (0.1 mg/gram) 1 appl vaginal 3XW #42.5 grams 03/26/23 vaginal cream fenofibrate 160 mg tablet 160 mg PO DAILY 90 days #90 tabs 03/26/23 fluticasone propionate 50 1 spray intranasal DAILY 90 days 03/26/23 mcg/actuation nasal #16 grams spray,suspension furosemide 40 mg tablet 40 mg PO DAILY 30 days #30 tabs 03/26/23 hydroxychloroquine 200 mg tablet 200 mg PO BID #180 tabs 03/26/23 (Plaquenil) ketoconazole 2 % topical cream 1 appl topical BID 30 days #30 03/26/23 grams lancets #100 ea 03/26/23 loratadine 10 mg tablet 10 mg PO DAILY 90 days #90 tabs 03/26/23 magnesium 200 mg tablet 200 mg PO DAILY 90 days #90 tabs 03/26/23 metformin 1,000 mg tablet 1,000 mg PO BIDWM 90 days #180 tabs 03/26/23 mirabegron 50 mg tablet,extended 50 mg PO DAILY 90 days #90 tabs 03/26/23 release 24 hr (Myrbetriq) nystatin 100,000 unit/gram topical 1 appl topical DAILY 15 days #60 03/26/23 powder grams omeprazole 40 mg capsule,delayed 40 mg PO DAILY@0630 90 days #90 03/26/23 release caps oxycodone 5 mg tablet 5 mg PO Q6H PRN pain 30 days #90 03/26/23 tabs riboflavin (vitamin B2) 400 mg 400 mg PO DAILY #30 tabs 03/26/23 tablet rivaroxaban 20 mg tablet (Xarelto) 20 mg PO DAILY@1700 90 days #90 03/26/23 tabs ropinirole 0.25 mg tablet 0.5 mg (2 x 0.25 mg) PO BEDTIME 90 03/26/23 days #180 tabs rosuvastatin 40 mg tablet (Crestor) 40 mg PO BEDTIME 90 days #90 tabs 03/26/23 sennosides 8.6 mg tablet (senna) 17.2 mg (2 x 8.6 mg) PO BEDTIME 03/26/23 PRN Constipation 90 days #90 tabs thiamine HCl (vitamin B1) 100 mg 100 mg PO DAILY 90 days #90 tabs 03/26/23 tablet Allergies Allergy/AdvReac Type Severity Reaction Status Date / Time morphine [Morphine] Allergy Severe ITCHING, Verified 03/26/23 16:46 hives cefdinir Allergy Intermediate hives Verified 03/26/23 16:46 sulfamethoxazole Allergy Intermediate RASH Verified 03/26/23 16:46 trimethoprim Allergy Intermediate RASH Verified 03/26/23 16:46 duloxetine AdvReac Severe altered Verified 03/26/23 16:46 behavior betina AdvReac Mild RUNNY NOSE Verified 03/26/23 16:46 mustard AdvReac Mild RUNNY NOSE Verified 03/26/23 16:46 potato [POTATO] AdvReac Mild ITCHY NOSE Verified 03/26/23 16:46 soybean AdvReac Mild RUNNY NOSE Verified 03/26/23 16:46 cheese AdvReac Intermediate head Uncoded 03/26/23 16:46 congestion Review of Systems Review of Systems: Yes all other systems are reviewed and are negative Cardiovascular: Cardiovascular: Reports no additional cardiovascular complaints Gastrointestinal: Gastrointestinal: Reports no additional gastrointestinal complaints Neurologic: Reports system reviewed and no additional complaints, except as documented [facility] Past Medical History Source: unable to obtain Medical History (HFpEF) heart failure with preserved ejection fraction Mild recurrent major depression Hyperlipidemia LDL goal <70 Post-dural puncture headache PONV (postoperative nausea and vomiting) Positive occult stool blood test [place] Headache Anemia Acute upper GI bleed Diabetic polyneuropathy COVID-19 Thiamine deficiency Hand pain CVA (cerebral vascular accident) Head injury Left shoulder pain Left knee pain Left hip pain Left hand pain Dizziness Diabetic neuropathy Diabetes type 2, uncontrolled Type 2 diabetes mellitus with other diabetic kidney complication Proteinuria Type 2 diabetes mellitus with diabetic polyneuropathy Dyslipidemia Obesity due to excess calories Other and unspecified hyperlipidemia Chronic heart failure with preserved ejection fraction (HFpEF) Anemia Thrombocytosis Pulmonary hypertension Ischemic stroke Paroxysmal atrial fibrillation Atherosclerotic cardiovascular disease Hospital discharge follow-up Thrombus Urge urinary incontinence Iron deficiency anemia Pure hypercholesterolemia Essential hypertension Diabetes mellitus Lumbar degenerative disc disease Surgical History S/P cardiac pacemaker procedure S/P insertion of spinal cord stimulator H/O colonoscopy History of Mohs micrographic surgery for skin cancer Hx of cervical spine surgery History of partial hysterectomy Hx of cardiac cath Family History Family History Father Rectal cancer Hypertension Arthritis of knee CVD (cardiovascular disease) Mother Hypertension CVD (cardiovascular disease) Myocardial infarction Diabetes Social History Social History Household Members: Spouse Housing: Apartment Are you a primary healthcare recruiter to a significant other at home: No Alcohol intake: never Patient Tobacco Use Status: Former Tobacco user Quit Date: 1993 Tobacco use type: Cigarette Smoked in Last 30 Days: No e-Cigarette/Vaping Use: Never Used Second Hand Smoke Exposure: No Use of substances other than those prescribed or required for medical reasons: No Advance Directives: Yes Advance Directives on File: Yes Advance Directives Date on File: 07/17/20 service: No Current occupational status: retired Current occupation: Lt handed Cognitive needs: Yes (scodor/walker) Hearing needs: No Vision needs: Yes (glasses) Physical Exam ED Vital Signs: Vital Signs - 24 hr 03/30/23 12:46 03/30/23 13:03 03/30/23 15:21 Temperature 98 F 98.4 F Pulse Rate 70 70 Respiratory Rate 18 18 15 Blood Pressure 109/53 L 136/65 Pulse Oximetry 88 L 95 97 Oxygen Delivery Method Room Air Nasal Cannula Room Air Oxygen Flow Rate 1 BMI result Body Mass Index 34.5 Const General: cooperative Nutritional Appearance: well nourished Orientation/consciousness: patient oriented x3 Limitations: no limitations HENMT Head: Yes normal to inspection General nose exam: Normal external nose present Mouth: Normal oral and palatal mucosa present Throat: Yes posterior oropharynx normal Neck Neck: Yes normal visual inspection Chest Chest palpation & inspection: normal inspection of the chest Resp Effort & Inspection: normal respiratory effort Auscultation: clear to auscultation bilaterally Cardio Jugular venous distension: no JVD Rate: regular rate Rhythm: regular rhythm GI Inspection: Yes normal to inspection Skin General skin exam: no rashes or lesions noted and elasticity normal Lesions: no lesions Rashes: no rashes Neuro General: patient oriented x3 Course Reevaluation(s) Reevaluation #1: Signed out to Dr Lr,off shift now Time: 16:18 Medications Administered Discontinued Medications Generic Name Dose Route Start Last Admin Trade Name Freq PRN Reason Stop Dose Admin Sodium Chloride 1,000 mls @ 999 mls/hr 03/30/23 14:45 03/30/23 15:34 Ns IVCONT 03/30/23 15:45 999 mls/hr .Q1H1M REPLACED BY [facility] Administration Medical Decision Making Lab Data [facility] Lab Attestation statement: I reviewed the patient's lab results. 03/30/23 13:27 03/30/23 13:27 Labs: Lab Results 03/30/23 03/30/23 Range/Units 13:27 15:23 WBC 9.0 (4.8-10.8) X10*3/uL RBC 4.32 (4.20-5.50) X10*6/uL Hgb 11.6 L (12.0-16.0) g/dl Hct 37.4 (37.0-47.0) % MCV 86.6 (80.0-98.0) fL MCH 26.9 L (27.0-33.0) pg MCHC 31.0 (31.0-35.0) g/dl RDW 16.7 H (11.0-16.0) % Plt Count 330 (160-400) X10*3/uL MPV 9.0 L (9.4-12.3) fL Immature Gran % (Auto) 0.2 (0.0-0.4) % Neut % (Auto) 64.1 (45-73) % Lymph % (Auto) 23.3 (20-40) % Moffat % (Auto) 8.8 (2-11) % Eos % (Auto) 2.9 (0-4) % Baso % (Auto) 0.7 (0-2) % Lymph # (Auto) 2.1 (1.2-4.9) X10*3/uL Moffat # (Auto) 0.8 (0.1-1.2) X10*3/uL Eos # (Auto) 0.3 (0.0-0.4) X10*3/uL Baso # (Auto) 0.1 (0.0-0.2) X10*3/uL Abs Immat Gran (auto) 0.02 (0.00-0.03) X10*3/uL Absolute Neuts (auto) 5.8 (2.0-8.3) x10*3/uL Absolute Nucleated RBC 0.000 (0.0-0.012) X10*3/uL Nucleated RBC % (auto) 0.0 (0.0-0.2) /100WBC Sodium 134 L (135-145) mmol/L Potassium 4.6 (3.3-5.1) mmol/L Chloride 95 L (96-108) mmol/L Carbon Dioxide 30 H (22-29) mmol/L Anion Gap 14 (12-20) BUN 33 H (9-16) mg/dL Creatinine 1.08 (0.5-1.4) mg/dL Estim Creat Clear Calc 48.2 Estimated GFR 50 Random Glucose 141 H (60-115) mg/dL Lactic Acid 0.9 (0.5-2.0) mmol/L Calcium 9.4 D (8.4-10.2) mg/dL Total Bilirubin 0.5 (0.0-1.0) mg/dL AST 18 (5-31) U/L ALT 13 (0-31) U/L Alkaline Phosphatase 60 (39-117) U/L Troponin I High Sens 34.3 H D (<3.5-17.0) ng/L B-Natriuretic Peptide 310 H (<100) pg/mL Total Protein 6.4 L (6.5-8.0) g/dL Albumin 3.4 L (3.5-5.0) g/dL Urine Color Yellow Urine Appearance Clear Urine pH 6.0 (5.0-9.0) Ur Specific [place] 1.010 (1.005-1.025) Urine Protein Negative (Neg-Trace) mg/dL Urine Glucose (UA) 500 H (Negative) mg/dL Urine Ketones Negative (Negative) mg/dL Urine Blood Negative (Negative) Urine Nitrite Negative (Negative) Ur Leukocyte Esterase Small (1+) H (Negative) Urine RBC 6-10 H (0-2) /HPF Urine WBC 6-10 H (0-5) /HPF Ur Squamous Epith Cells 3-5 (0-2) /HPF Urine Bacteria 4+ (None Seen) Hyaline Casts 0-2 (0-2) /LPF COVID-19 ([facility]) Negative (Negative) COVID-19 Clin Com See Note Independent Interpretation I performed an independent interpretation of an: EKG (paced rythm 70) Independent Historian Clinical information obtained from an independent historian. History obtained from or confirmed by: Spouse Discharge Plan Discharge Clinical Impression: Weakness Prescriptions: No Action (DME) blood-glucose meter [OneTouch Verio Meter] Misc See Rx Instructions .Route Qty: 1 0RF Rx Instructions: As directed enoxaparin 100 mg/mL syringe 100 mg subcut DAILY Qty: 1 0RF Rx Instructions: Hold your Xarelto the day before the procedure and instead take this dose of enoxaparin. Do not take Xarelto or enoxaparin the day of the procedure, and restart your Xarelto the day after the procedure if there is no bleeding risk. Discuss with Dr. Mackey the day of the procedure re: bleeding risk. acetaminophen 325 mg tablet 650 mg PO Q6H PRN (Reason: Pain (Scale Score 1-3)) Qty: 60 0RF atenolol 50 mg tablet 50 mg PO BID 90 Days Qty: 180 1RF Protocol: Hold for SBP/HR < HOLD for SBP < : 90 HOLD for HR < : 60 (DME) OneTouch Verio test strips Strip See Rx Instructions .Route Qty: 100 5RF Rx Instructions: Use 1 test strip twice a day cyanocobalamin (vitamin B-12) 1,000 mcg tablet 1,000 mcg PO DAILY 90 Days Qty: 90 3RF docusate sodium [DOK] 100 mg capsule 100 mg PO BID PRN (Reason: constipation) 90 Days Qty: 180 2RF Trulicity 3 mg/0.5 mL pen injector 3 mg subcut QWEEK 90 Days Qty: 6.5 1RF Jardiance 25 mg tablet 25 mg PO DAILY 90 Days Qty: 90 3RF estradiol 0.01 % (0.1 mg/gram) cream 1 appl vaginal 3XW Qty: 42.5 0RF fenofibrate 160 mg tablet 160 mg PO DAILY 90 Days Qty: 90 3RF fluticasone propionate 50 mcg/actuation spray,suspension 1 spray intranasal DAILY 90 Days Qty: 16 3RF Rx Instructions: administer into each nostril furosemide 40 mg tablet 40 mg PO DAILY 30 Days Qty: 30 1RF hydroxychloroquine [Plaquenil] 200 mg tablet 200 mg PO BID Qty: 180 3RF (DME) lancets Misc See Rx Instructions .Route Qty: 100 3RF Rx Instructions: USe 1 lancet once a day ketoconazole 2 % cream 1 appl topical BID 30 Days Qty: 30 0RF loratadine 10 mg tablet 10 mg PO DAILY 90 Days Qty: 90 0RF magnesium 200 mg tablet 200 mg PO DAILY 90 Days Qty: 90 5RF metformin 1,000 mg tablet 1,000 mg PO BIDWM 90 Days Qty: 180 1RF Myrbetriq 50 mg tablet extended release 24 hr 50 mg PO DAILY 90 Days Qty: 90 1RF nystatin 100,000 unit/gram powder 1 appl topical DAILY 15 Days Qty: 60 0RF omeprazole 40 mg capsule,delayed release(DR/EC) 40 mg PO DAILY@0630 90 Days Qty: 90 1RF riboflavin (vitamin B2) 400 mg tablet 400 mg PO DAILY Qty: 30 0RF Xarelto 20 mg tablet 20 mg PO DAILY@1700 90 Days Qty: 90 1RF ropinirole 0.25 mg tablet 0.5 mg PO BEDTIME 90 Days Qty: 180 1RF rosuvastatin [Crestor] 40 mg tablet 40 mg PO BEDTIME 90 Days Qty: 90 1RF sennosides [senna] 8.6 mg tablet 17.2 mg PO BEDTIME PRN (Reason: Constipation) 90 Days Qty: 90 1RF thiamine HCl (vitamin B1) 100 mg tablet 100 mg PO DAILY 90 Days Qty: 90 1RF baclofen 10 mg tablet 10 mg PO TID PRN (Reason: muscle spasm) 30 Days Qty: 90 1RF byvrvgemlo-qkchuilzudugu-xttm 50-325-40 mg tablet 1 tab PO Q4H PRN (Reason: Headache) 4 Days Qty: 24 0RF oxycodone 5 mg tablet 5 mg PO Q6H PRN (Reason: pain) 30 Days Qty: 90 0RF betamethasone dipropionate 0.05 % cream 1 appl topical DAILY PRN bisacodyl 5 mg tablet,delayed release (DR/EC) 5 mg PO BEDTIME digoxin 125 mcg (0.125 mg) tablet 125 mcg PO DAILY lorazepam 0.5 mg tablet 0.5 mg PO DAILY PRN gabapentin 600 mg tablet 400 mg PO BID meclizine 12.5 mg tablet 12.5 mg PO BID PRN polyethylene glycol 3350 [Miralax] 17 gram/dose powder 17 g PO DAILY multivitamin Tablet 1 tab PO DAILY fesoterodine [Toviaz] 8 mg tablet extended release 24 hr 8 mg PO DAILY ezetimibe [Zetia] 10 mg tablet 10 mg PO DAILY ondansetron HCl 4 mg tablet 4 mg PO Q6H escitalopram oxalate [Lexapro] 10 mg tablet 20 mg PO DAILY insulin degludec [Tresiba FlexTouch U-100] 100 unit/mL (3 mL) insulin pen 15 unit subcut BEDTIME
--- NOTE | 2023-03-30 14:40 | ED_ITS ---
HPI - General Adult General Chief complaint: General Medical Stated complaint: INCR WEAKNESS PER EMS Time Seen by Provider: 03/30/23 14:32 Source: patient, family and EMS Mode of arrival: EMS Limitations: no limitations History of Present Illness HPI narrative: This is a 72 years old of female presented to the emergency department because increasing weakness malaise. She has multiple medical problem which include hypertension, chronic heart failure, status post pacemaker, osteoarthritis of the knee chronic back pain. Denies any fever chills vomiting. Onset (ago): day(s) (2) Related Data Home Medications Medication Instructions Recorded Confirmed betamethasone dipropionate 0.05 % 1 appl topical DAILY PRN 03/26/23 03/26/23 topical cream bisacodyl 5 mg tablet,delayed 5 mg PO BEDTIME 03/26/23 03/26/23 release digoxin 125 mcg (0.125 mg) tablet 125 mcg PO DAILY 03/26/23 03/26/23 escitalopram oxalate 10 mg tablet 20 mg PO DAILY 03/26/23 03/26/23 (Lexapro) ezetimibe 10 mg tablet (Zetia) 10 mg PO DAILY 03/26/23 03/26/23 fesoterodine 8 mg tablet,extended 8 mg PO DAILY 03/26/23 03/26/23 release 24 hr (Toviaz) gabapentin 600 mg tablet 400 mg PO BID 03/26/23 03/26/23 insulin degludec 100 unit/mL (3 15 unit subcut BEDTIME 03/26/23 03/26/23 mL) subcutaneous pen (Tresiba FlexTouch U-100 insulin) lorazepam 0.5 mg tablet 0.5 mg PO DAILY PRN 03/26/23 03/26/23 meclizine 12.5 mg tablet 12.5 mg PO BID PRN 03/26/23 03/26/23 multivitamin 1 tab PO DAILY 03/26/23 03/26/23 ondansetron HCl 4 mg tablet 4 mg PO Q6H 03/26/23 03/26/23 polyethylene glycol 3350 17 17 g PO DAILY 03/26/23 03/26/23 gram/dose oral powder (Miralax) Previous Rx's Medication Instructions Recorded blood-glucose meter (iVideosongsTouch #1 ea 06/12/22 Verio Meter) enoxaparin 100 mg/mL subcutaneous 100 mg subcut DAILY #1 mL 11/19/22 syringe acetaminophen 325 mg tablet 650 mg (2 x 325 mg) PO Q6H PRN 03/26/23 Pain (Scale Score 1-3) #60 tabs atenolol 50 mg tablet 50 mg PO BID 90 days #180 tabs 03/26/23 baclofen 10 mg tablet 10 mg PO TID PRN muscle spasm 30 03/26/23 days #90 tabs blood sugar diagnostic (OneTouch #100 ea 03/26/23 Verio test strips) tiabdwdqck-mcbzkfdsqondg-zslcehxy 1 tab PO Q4H PRN Headache 4 days 03/26/23 50 mg-325 mg-40 mg tablet #24 tabs cyanocobalamin (vitamin B-12) 1,000 mcg PO DAILY 90 days #90 tabs 03/26/23 1,000 mcg tablet docusate sodium 100 mg capsule 100 mg PO BID PRN constipation 90 03/26/23 (DOK) days #180 caps dulaglutide 3 mg/0.5 mL 3 mg (0.5 mL) subcut QWEEK 90 days 03/26/23 subcutaneous pen injector #6.5 mL (Trulicity) empagliflozin 25 mg tablet 25 mg PO DAILY 90 days #90 tabs 03/26/23 (Jardiance) estradiol 0.01% (0.1 mg/gram) 1 appl vaginal 3XW #42.5 grams 03/26/23 vaginal cream fenofibrate 160 mg tablet 160 mg PO DAILY 90 days #90 tabs 03/26/23 fluticasone propionate 50 1 spray intranasal DAILY 90 days 03/26/23 mcg/actuation nasal #16 grams spray,suspension furosemide 40 mg tablet 40 mg PO DAILY 30 days #30 tabs 03/26/23 hydroxychloroquine 200 mg tablet 200 mg PO BID #180 tabs 03/26/23 (Plaquenil) ketoconazole 2 % topical cream 1 appl topical BID 30 days #30 03/26/23 grams lancets #100 ea 03/26/23 loratadine 10 mg tablet 10 mg PO DAILY 90 days #90 tabs 03/26/23 magnesium 200 mg tablet 200 mg PO DAILY 90 days #90 tabs 03/26/23 metformin 1,000 mg tablet 1,000 mg PO BIDWM 90 days #180 tabs 03/26/23 mirabegron 50 mg tablet,extended 50 mg PO DAILY 90 days #90 tabs 03/26/23 release 24 hr (Myrbetriq) nystatin 100,000 unit/gram topical 1 appl topical DAILY 15 days #60 03/26/23 powder grams omeprazole 40 mg capsule,delayed 40 mg PO DAILY@0630 90 days #90 03/26/23 release caps oxycodone 5 mg tablet 5 mg PO Q6H PRN pain 30 days #90 03/26/23 tabs riboflavin (vitamin B2) 400 mg 400 mg PO DAILY #30 tabs 03/26/23 tablet rivaroxaban 20 mg tablet (Xarelto) 20 mg PO DAILY@1700 90 days #90 03/26/23 tabs ropinirole 0.25 mg tablet 0.5 mg (2 x 0.25 mg) PO BEDTIME 90 03/26/23 days #180 tabs rosuvastatin 40 mg tablet (Crestor) 40 mg PO BEDTIME 90 days #90 tabs 03/26/23 sennosides 8.6 mg tablet (senna) 17.2 mg (2 x 8.6 mg) PO BEDTIME 03/26/23 PRN Constipation 90 days #90 tabs thiamine HCl (vitamin B1) 100 mg 100 mg PO DAILY 90 days #90 tabs 03/26/23 tablet Allergies Allergy/AdvReac Type Severity Reaction Status Date / Time morphine [Morphine] Allergy Severe ITCHING, Verified 03/26/23 16:46 hives cefdinir Allergy Intermediate hives Verified 03/26/23 16:46 sulfamethoxazole Allergy Intermediate RASH Verified 03/26/23 16:46 trimethoprim Allergy Intermediate RASH Verified 03/26/23 16:46 duloxetine AdvReac Severe altered Verified 03/26/23 16:46 behavior betina AdvReac Mild RUNNY NOSE Verified 03/26/23 16:46 mustard AdvReac Mild RUNNY NOSE Verified 03/26/23 16:46 potato [POTATO] AdvReac Mild ITCHY NOSE Verified 03/26/23 16:46 soybean AdvReac Mild RUNNY NOSE Verified 03/26/23 16:46 cheese AdvReac Intermediate head Uncoded 03/26/23 16:46 congestion PMFSH Past Medical History Medical History (HFpEF) heart failure with preserved ejection fraction Mild recurrent major depression Hyperlipidemia LDL goal <70 Post-dural puncture headache PONV (postoperative nausea and vomiting) Positive occult stool blood test [place] Headache Anemia Acute upper GI bleed Diabetic polyneuropathy COVID-19 Thiamine deficiency Hand pain CVA (cerebral vascular accident) Head injury Left shoulder pain Left knee pain Left hip pain Left hand pain Dizziness Diabetic neuropathy Diabetes type 2, uncontrolled Type 2 diabetes mellitus with other diabetic kidney complication Proteinuria Type 2 diabetes mellitus with diabetic polyneuropathy Dyslipidemia Obesity due to excess calories Other and unspecified hyperlipidemia Chronic heart failure with preserved ejection fraction (HFpEF) Anemia Thrombocytosis Pulmonary hypertension Ischemic stroke Paroxysmal atrial fibrillation Atherosclerotic cardiovascular disease Hospital discharge follow-up Thrombus Urge urinary incontinence Iron deficiency anemia Pure hypercholesterolemia Essential hypertension Diabetes mellitus Lumbar degenerative disc disease Surgical History S/P cardiac pacemaker procedure S/P insertion of spinal cord stimulator H/O colonoscopy History of Mohs micrographic surgery for skin cancer Hx of cervical spine surgery History of partial hysterectomy Hx of cardiac cath Family History Family History Father Rectal cancer Hypertension Arthritis of knee CVD (cardiovascular disease) Mother Hypertension CVD (cardiovascular disease) Myocardial infarction Diabetes Social History Social History Household Members: Spouse Housing: Apartment Are you a primary day care provider to a significant other at home: No Alcohol intake: never Patient Tobacco Use Status: Former Tobacco user Quit Date: 1993 Tobacco use type: Cigarette Smoked in Last 30 Days: No e-Cigarette/Vaping Use: Never Used Second Hand Smoke Exposure: No Use of substances other than those prescribed or required for medical reasons: No Advance Directives: Yes Advance Directives on File: Yes Advance Directives Date on File: 07/17/20 service: No Current occupational status: retired Current occupation: Lt handed Cognitive needs: Yes (scodor/walker) Hearing needs: No Vision needs: Yes (glasses) Physical Exam ED Vital Signs: Vital Signs - 24 hr 03/30/23 12:46 03/30/23 13:03 03/30/23 15:21 Temperature 98 F 98.4 F Pulse Rate 70 70 Respiratory Rate 18 18 15 Blood Pressure 109/53 L 136/65 Pulse Oximetry 88 L 95 97 Oxygen Delivery Method Room Air Nasal Cannula Room Air Oxygen Flow Rate 1 BMI result Body Mass Index 34.5 Course Reevaluation(s) Reevaluation #1: pt presented with weakness ,failure to thrive will consult web production manager and PT possible placement Time: 16:10 Reevaluation #2: Signed out to Dr Lr Time: 16:14 Medications Administered Discontinued Medications Generic Name Dose Route Start Last Admin Trade Name Freq PRN Reason Stop Dose Admin Sodium Chloride 1,000 mls @ 999 mls/hr 03/30/23 14:45 03/30/23 15:34 Ns IVCONT 03/30/23 15:45 999 mls/hr .Q1H1M SHANON Administration Medical Decision Making Medical Decision Making MDM Narrative: Patient presented with generalized weakness I spoke with the she is not doing well at home a, she ambulate at baseline with twan, she needs 2 person to assist her. Will consult test case developer the physical therapy anticipate discharge to rehab Labs reviewed normal white count afebrile not tachycardic UA shows few WBC is reasonable to start a p.o. antibiotic pending the culture she is has an allergy to cephalosporin will start on macrobid , vitals are stable normotensive not tachycardic O2 sat 97% on room air SIgned out to Dr Lr I am off shift now Differential Diagnosis Differential Diagnoses: The differential diagnosis associated with the presentation includes anemia/deconditioning Admission/Observation Consideration of admission/observation: Escalation of care including admission/observation considered Lab Data [facility] Lab Attestation statement: I reviewed the patient's lab results. 03/30/23 13:27 03/30/23 13:27 Labs: Lab Results 03/30/23 03/30/23 Range/Units 13:27 15:23 WBC 9.0 (4.8-10.8) X10*3/uL RBC 4.32 (4.20-5.50) X10*6/uL Hgb 11.6 L (12.0-16.0) g/dl Hct 37.4 (37.0-47.0) % MCV 86.6 (80.0-98.0) fL MCH 26.9 L (27.0-33.0) pg MCHC 31.0 (31.0-35.0) g/dl RDW 16.7 H (11.0-16.0) % Plt Count 330 (160-400) X10*3/uL MPV 9.0 L (9.4-12.3) fL Immature Gran % (Auto) 0.2 (0.0-0.4) % Neut % (Auto) 64.1 (45-73) % Lymph % (Auto) 23.3 (20-40) % [place] % (Auto) 8.8 (2-11) % Eos % (Auto) 2.9 (0-4) % Baso % (Auto) 0.7 (0-2) % Lymph # (Auto) 2.1 (1.2-4.9) X10*3/uL [place] # (Auto) 0.8 (0.1-1.2) X10*3/uL Eos # (Auto) 0.3 (0.0-0.4) X10*3/uL Baso # (Auto) 0.1 (0.0-0.2) X10*3/uL Abs Immat Gran (auto) 0.02 (0.00-0.03) X10*3/uL Absolute Neuts (auto) 5.8 (2.0-8.3) x10*3/uL Absolute Nucleated RBC 0.000 (0.0-0.012) X10*3/uL Nucleated RBC % (auto) 0.0 (0.0-0.2) /100WBC Sodium 134 L (135-145) mmol/L Potassium 4.6 (3.3-5.1) mmol/L Chloride 95 L (96-108) mmol/L Carbon Dioxide 30 H (22-29) mmol/L Anion Gap 14 (12-20) BUN 33 H (9-16) mg/dL Creatinine 1.08 (0.5-1.4) mg/dL Estim Creat Clear Calc 48.2 Estimated GFR 50 Random Glucose 141 H (60-115) mg/dL Lactic Acid 0.9 (0.5-2.0) mmol/L Calcium 9.4 D (8.4-10.2) mg/dL Total Bilirubin 0.5 (0.0-1.0) mg/dL AST 18 (5-31) U/L ALT 13 (0-31) U/L Alkaline Phosphatase 60 (39-117) U/L Troponin I High Sens 34.3 H D (<3.5-17.0) ng/L B-Natriuretic Peptide 310 H (<100) pg/mL Total Protein 6.4 L (6.5-8.0) g/dL Albumin 3.4 L (3.5-5.0) g/dL Urine Color Yellow Urine Appearance Clear Urine pH 6.0 (5.0-9.0) Ur Specific [place] 1.010 (1.005-1.025) Urine Protein Negative (Neg-Trace) mg/dL Urine Glucose (UA) 500 H (Negative) mg/dL Urine Ketones Negative (Negative) mg/dL Urine Blood Negative (Negative) Urine Nitrite Negative (Negative) Ur Leukocyte Esterase Small (1+) H (Negative) Urine RBC 6-10 H (0-2) /HPF Urine WBC 6-10 H (0-5) /HPF Ur Squamous Epith Cells 3-5 (0-2) /HPF Urine Bacteria 4+ (None Seen) Hyaline Casts 0-2 (0-2) /LPF COVID-19 ([facility]) Negative (Negative) COVID-19 Clin Com See Note Independent Interpretation I performed an independent interpretation of an: Plain X-Ray Interpretation: normal CXR Radiology Impression Discussion of test interpretation with radiology: I have reviewed the radiologist's reading. Radiologist Impression: normal cxr External Record Review External record reviewed: Inpatient record Discharge Plan Discharge Clinical Impression: Weakness Prescriptions: No Action (DME) blood-glucose meter [OneTouch Verio Meter] Misc See Rx Instructions .Route Qty: 1 0RF Rx Instructions: As directed enoxaparin 100 mg/mL syringe 100 mg subcut DAILY Qty: 1 0RF Rx Instructions: Hold your Xarelto the day before the procedure and instead take this dose of enoxaparin. Do not take Xarelto or enoxaparin the day of the procedure, and restart your Xarelto the day after the procedure if there is no bleeding risk. Discuss with Dr. Mackey the day of the procedure re: bleeding risk. acetaminophen 325 mg tablet 650 mg PO Q6H PRN (Reason: Pain (Scale Score 1-3)) Qty: 60 0RF atenolol 50 mg tablet 50 mg PO BID 90 Days Qty: 180 1RF Protocol: Hold for SBP/HR < HOLD for SBP < : 90 HOLD for HR < : 60 (DME) OneTouch Verio test strips Strip See Rx Instructions .Route Qty: 100 5RF Rx Instructions: Use 1 test strip twice a day cyanocobalamin (vitamin B-12) 1,000 mcg tablet 1,000 mcg PO DAILY 90 Days Qty: 90 3RF docusate sodium [DOK] 100 mg capsule 100 mg PO BID PRN (Reason: constipation) 90 Days Qty: 180 2RF Trulicity 3 mg/0.5 mL pen injector 3 mg subcut QWEEK 90 Days Qty: 6.5 1RF Jardiance 25 mg tablet 25 mg PO DAILY 90 Days Qty: 90 3RF estradiol 0.01 % (0.1 mg/gram) cream 1 appl vaginal 3XW Qty: 42.5 0RF fenofibrate 160 mg tablet 160 mg PO DAILY 90 Days Qty: 90 3RF fluticasone propionate 50 mcg/actuation spray,suspension 1 spray intranasal DAILY 90 Days Qty: 16 3RF Rx Instructions: administer into each nostril furosemide 40 mg tablet 40 mg PO DAILY 30 Days Qty: 30 1RF hydroxychloroquine [Plaquenil] 200 mg tablet 200 mg PO BID Qty: 180 3RF (DME) lancets Misc See Rx Instructions .Route Qty: 100 3RF Rx Instructions: USe 1 lancet once a day ketoconazole 2 % cream 1 appl topical BID 30 Days Qty: 30 0RF loratadine 10 mg tablet 10 mg PO DAILY 90 Days Qty: 90 0RF magnesium 200 mg tablet 200 mg PO DAILY 90 Days Qty: 90 5RF metformin 1,000 mg tablet 1,000 mg PO BIDWM 90 Days Qty: 180 1RF Myrbetriq 50 mg tablet extended release 24 hr 50 mg PO DAILY 90 Days Qty: 90 1RF nystatin 100,000 unit/gram powder 1 appl topical DAILY 15 Days Qty: 60 0RF omeprazole 40 mg capsule,delayed release(DR/EC) 40 mg PO DAILY@0630 90 Days Qty: 90 1RF riboflavin (vitamin B2) 400 mg tablet 400 mg PO DAILY Qty: 30 0RF Xarelto 20 mg tablet 20 mg PO DAILY@1700 90 Days Qty: 90 1RF ropinirole 0.25 mg tablet 0.5 mg PO BEDTIME 90 Days Qty: 180 1RF rosuvastatin [Crestor] 40 mg tablet 40 mg PO BEDTIME 90 Days Qty: 90 1RF sennosides [senna] 8.6 mg tablet 17.2 mg PO BEDTIME PRN (Reason: Constipation) 90 Days Qty: 90 1RF thiamine HCl (vitamin B1) 100 mg tablet 100 mg PO DAILY 90 Days Qty: 90 1RF baclofen 10 mg tablet 10 mg PO TID PRN (Reason: muscle spasm) 30 Days Qty: 90 1RF hamdtnvryi-umpmqdzpchoen-cpmf 50-325-40 mg tablet 1 tab PO Q4H PRN (Reason: Headache) 4 Days Qty: 24 0RF oxycodone 5 mg tablet 5 mg PO Q6H PRN (Reason: pain) 30 Days Qty: 90 0RF betamethasone dipropionate 0.05 % cream 1 appl topical DAILY PRN bisacodyl 5 mg tablet,delayed release (DR/EC) 5 mg PO BEDTIME digoxin 125 mcg (0.125 mg) tablet 125 mcg PO DAILY lorazepam 0.5 mg tablet 0.5 mg PO DAILY PRN gabapentin 600 mg tablet 400 mg PO BID meclizine 12.5 mg tablet 12.5 mg PO BID PRN polyethylene glycol 3350 [Miralax] 17 gram/dose powder 17 g PO DAILY multivitamin Tablet 1 tab PO DAILY fesoterodine [Toviaz] 8 mg tablet extended release 24 hr 8 mg PO DAILY ezetimibe [Zetia] 10 mg tablet 10 mg PO DAILY ondansetron HCl 4 mg tablet 4 mg PO Q6H escitalopram oxalate [Lexapro] 10 mg tablet 20 mg PO DAILY insulin degludec [Tresiba FlexTouch U-100] 100 unit/mL (3 mL) insulin pen 15 unit subcut BEDTIME
[2023-03-30 15:21] VITALS: BP 136/65; PULSE 70; RESP 15; TEMP 36.9; O2SAT 97
--- NOTE | 2023-03-30 15:31 | MHC.CM.ED ---
Received case management consult from Dr Hernandez. Patient came to the ER due to increased weakness. Met with patient and , Jamal, in regards to discharge planning. Patient lives with Jamal, and uses a walker for mobility/ Patient was d/c'd from [facility] on 03/24 with Zainab CHAWLA. Patient was doing well when she went home. However for the past couple of days patient has been experiencing increased weakness. Jamal and their son Edu have had to both assist patient with transfers/mobility. Patient and Jamal are aware that work up is pending. If admission is approrpiate, patient will be admitted. If not, physical therapy eval would be ordered for Friday. Patient and Jamal aware and agreeable. Continue to monitor for d/c needs.
[2023-03-30] MEDS: 0.9 % Sodium Chloride 1,000 ML 999 ML IVCONT (15:34)
--- NOTE | 2023-03-30 15:36 | PC.NURSE ---
titrated to RA 94+%. MD Hernandez aware
[2023-03-30 15:37] LABS: Appearance Urine Clear; Color Urine Yellow; Glucose Urine UA 500 mg/dL (Negative); Leukocyte Esterase Urine Small (1+) (Negative); Nitrite Urine Negative (Negative); UMIC TRIGGER UACC YES; Urine Blood Negative (Negative); Urine Ketones Negative (Negative); Urine Protein Negative (Neg-Trace)
[2023-03-30 15:38] LABS: B Type Natriuretic Peptide 310 pg/mL (<100)
[2023-03-30 15:43] LABS: COVID-19 Test Negative (Negative); IDNOW Serial# 08D9AD1C
[2023-03-30 15:48] LABS: Bacteria Urine 4+ (None Seen); Hyaline Casts Urine 0-2 /LPF (0-2); UACC Culture Trigger YES
[2023-03-30 15:54] LABS: Troponin-I High Sensitivity 34.3 ng/L (<3.5-17.0)
[2023-03-30 16:26] LABS: Influenza A PCR NEGATIVE (Negative); Influenza B PCR NEGATIVE (Negative); Resp Syncy Virus RNA Qual PCR NEGATIVE (Negative); SARS COV2 PCR INHOUSE NEGATIVE (Negative)
[2023-03-30 17:02] LABS: Troponin-I High Sensitivity 34.1 ng/L (<3.5-17.0)
[2023-03-30] MEDS: Nitrofurantoin Monohyd/M-Cryst 100 MG CAPSULE PO (17:25)
[2023-03-30 18:39] VITALS: BP 177/72; PULSE 69; RESP 16; TEMP 36.6; O2SAT 99
--- NOTE | 2023-03-30 19:00 | MHC.EDTECH ---
Patient was given dinner ,ate 100 % and drank 240 ml ,pt was fed by her daughter .
--- NOTE | 2023-03-30 19:21 | PC.NURSE ---
care assumed of patient at this time.
--- NOTE | 2023-03-30 21:32 | MHC.EDTECH ---
Patient was inconient of urine ,care given ,fresh on put on and bedding change ,900 ml empty from purewick ,warm blanket given ,and call bill within reach ,Snack offer ,put Patient refused .
[2023-03-30] MEDS: Insulin Glargine,Hum.rec.anlog 100 UNIT/ML 10 ML VIAL 10 UNIT SUBCUT (22:59)
[2023-03-30] MEDS: atenoloL 50 MG TABLET PO (23:00)
[2023-03-30] MEDS: Baclofen 10 MG TABLET PO (23:00)
[2023-03-30] MEDS: bisacodyL 5 MG TABLET.DR PO (23:00)
[2023-03-30] MEDS: Gabapentin 400 MG CAPSULE PO (23:00)
[2023-03-30] MEDS: Acetaminophen 325 MG TABLET 650 MG PO (23:00)
[2023-03-30 23:01] LABS: Glucose, Whole Blood 137 mg/dL (60-115)
--- NOTE | 2023-03-31 01:03 | PC.NURSE ---
pt consistently ringing call short approx every 5-10min throughout the night. pt expressed multiple concerns/needs. while in room addressing pt needs pt makes every attempt to keep staff in the room for an extended period of time. when staff excuse themselves from room, pt will make comments such as she is not being taken care of: pt states that her lips are swollen, however they are not. this RN saw patient peeling skin off the inside of her mouth. she states that she has a bad dental infection that is causing her lips and face to swell. reassure pt that there is no noticeable swelling. rpts that she feels as if her throat is going to close up by the end of the night, at one point pt requesting oxygen. both this RN and EDT have reassured pt that her lips and face are not swollen. purewick is in place and working appropriately, pt rings multiple times to state she feels wet and that she hears a gurgling sound which means its not working. each time this RN has checked pt to which she was dry, pericare provided, and education provided on how the purewick works. rang multiple times to vent about how the senior living did not take care of her. also discusses several family members. requesting to be repositioned multiple times in regards to pillow placement and blankets, elevating head of bed. PA is aware, at bedside to talk to patient, will order meds to help pt sleep.
--- NOTE | 2023-03-31 01:21 | MHC.EDTECH ---
Patient rang call short ,was assisted unto bed fortune to have a bowel movement ,5 mins later ,Pt rang to take her off bed fortune ,But did not have a bowel movement,Romy care Provided ,Purewick and bed pads change ,Pt was reposition and boosted up in bed ,warm blanket given ,Pt call short within reach .
--- NOTE | 2023-03-31 01:26 | ED_ITS ---
HPI - General Adult General Chief complaint: General Medical Stated complaint: INCR WEAKNESS PER EMS Time Seen by Provider: 03/30/23 14:32 Source: patient Mode of arrival: EMS Limitations: no limitations History of Present Illness Relieving factors: none Exacerbating factors: none Associated symptoms: denies other symptoms Related Data Home Medications Medication Instructions Recorded Confirmed betamethasone dipropionate 0.05 % 1 appl topical DAILY PRN Rash 03/26/23 03/30/23 topical cream bisacodyl 5 mg tablet,delayed 5 mg PO BEDTIME 03/26/23 03/30/23 release digoxin 125 mcg (0.125 mg) tablet 125 mcg PO DAILY 03/26/23 03/30/23 escitalopram oxalate 10 mg tablet 20 mg PO DAILY 03/26/23 03/30/23 (Lexapro) ezetimibe 10 mg tablet (Zetia) 10 mg PO DAILY 03/26/23 03/30/23 fesoterodine 8 mg tablet,extended 8 mg PO DAILY 03/26/23 03/30/23 release 24 hr (Toviaz) gabapentin 600 mg tablet 400 mg PO BID 03/26/23 03/30/23 insulin degludec 100 unit/mL (3 15 unit subcut BEDTIME 03/26/23 03/30/23 mL) subcutaneous pen (Tresiba FlexTouch U-100 insulin) lorazepam 0.5 mg tablet 0.5 mg PO DAILY PRN Anxiety 03/26/23 03/30/23 meclizine 12.5 mg tablet 12.5 mg PO BID PRN Dizziness Or 03/26/23 03/30/23 Vertigo multivitamin 1 tab PO DAILY 03/26/23 03/30/23 ondansetron HCl 4 mg tablet 4 mg PO Q6H 03/26/23 03/30/23 polyethylene glycol 3350 17 17 g PO DAILY 03/26/23 03/30/23 gram/dose oral powder (Miralax) Previous Rx's Medication Instructions Recorded blood-glucose meter (Leap [employer]uch #1 ea 06/12/22 Verio Meter) acetaminophen 325 mg tablet 650 mg (2 x 325 mg) PO Q6H PRN 03/26/23 Pain (Scale Score 1-3) #60 tabs atenolol 50 mg tablet 50 mg PO BID 90 days #180 tabs 11/15/23 baclofen 10 mg tablet 10 mg PO TID PRN muscle spasm 30 03/26/23 days #90 tabs blood sugar diagnostic (OneTouch #100 ea 03/26/23 Verio test strips) fljarytpqf-xazbvlmrgtxps-xthsgwfk 1 tab PO Q4H PRN Headache 4 days 03/26/23 50 mg-325 mg-40 mg tablet #24 tabs cyanocobalamin (vitamin B-12) 1,000 mcg PO DAILY 90 days #90 tabs 03/26/23 1,000 mcg tablet docusate sodium 100 mg capsule 100 mg PO BID PRN constipation 90 03/26/23 (DOK) days #180 caps dulaglutide 3 mg/0.5 mL 3 mg (0.5 mL) subcut QWEEK 90 days 03/26/23 subcutaneous pen injector #6.5 mL (Trulicity) empagliflozin 25 mg tablet 25 mg PO DAILY 90 days #90 tabs 03/26/23 (Jardiance) estradiol 0.01% (0.1 mg/gram) 1 appl vaginal 3XW #42.5 grams 03/26/23 vaginal cream fenofibrate 160 mg tablet 160 mg PO DAILY 90 days #90 tabs 03/26/23 fluticasone propionate 50 1 spray intranasal DAILY 90 days 03/26/23 mcg/actuation nasal #16 grams spray,suspension furosemide 40 mg tablet 40 mg PO DAILY 30 days #30 tabs 03/26/23 hydroxychloroquine 200 mg tablet 200 mg PO BID #180 tabs 03/26/23 (Plaquenil) ketoconazole 2 % topical cream 1 appl topical BID 30 days #30 03/26/23 grams lancets #100 ea 03/26/23 loratadine 10 mg tablet 10 mg PO DAILY 90 days #90 tabs 03/26/23 magnesium 200 mg tablet 200 mg PO DAILY 90 days #90 tabs 03/26/23 metformin 1,000 mg tablet 1,000 mg PO BIDWM 90 days #180 tabs 03/26/23 mirabegron 50 mg tablet,extended 50 mg PO DAILY 90 days #90 tabs 03/26/23 release 24 hr (Myrbetriq) nystatin 100,000 unit/gram topical 1 appl topical DAILY 15 days #60 03/26/23 powder grams omeprazole 40 mg capsule,delayed 40 mg PO DAILY@0630 90 days #90 03/26/23 release caps oxycodone 5 mg tablet 5 mg PO Q6H PRN pain 30 days #90 03/26/23 tabs riboflavin (vitamin B2) 400 mg 400 mg PO DAILY #30 tabs 03/26/23 tablet rivaroxaban 20 mg tablet (Xarelto) 20 mg PO DAILY@1700 90 days #90 03/26/23 tabs ropinirole 0.25 mg tablet 0.5 mg (2 x 0.25 mg) PO BEDTIME 90 03/26/23 days #180 tabs rosuvastatin 40 mg tablet (Crestor) 40 mg PO BEDTIME 90 days #90 tabs 03/26/23 sennosides 8.6 mg tablet (senna) 17.2 mg (2 x 8.6 mg) PO BEDTIME 03/26/23 PRN Constipation 90 days #90 tabs thiamine HCl (vitamin B1) 100 mg 100 mg PO DAILY 90 days #90 tabs 03/26/23 tablet Allergies Allergy/AdvReac Type Severity Reaction Status Date / Time morphine [Morphine] Allergy Severe ITCHING, Verified 03/26/23 16:46 hives cefdinir Allergy Intermediate hives Verified 03/26/23 16:46 sulfamethoxazole Allergy Intermediate RASH Verified 03/26/23 16:46 trimethoprim Allergy Intermediate RASH Verified 03/26/23 16:46 duloxetine AdvReac Severe altered Verified 03/26/23 16:46 behavior ebtina AdvReac Mild RUNNY NOSE Verified 03/26/23 16:46 mustard AdvReac Mild RUNNY NOSE Verified 03/26/23 16:46 potato [POTATO] AdvReac Mild ITCHY NOSE Verified 03/26/23 16:46 soybean AdvReac Mild RUNNY NOSE Verified 03/26/23 16:46 cheese AdvReac Intermediate head Uncoded 03/26/23 16:46 congestion PMFSH Past Medical History Medical History (HFpEF) heart failure with preserved ejection fraction Mild recurrent major depression Hyperlipidemia LDL goal <70 Post-dural puncture headache PONV (postoperative nausea and vomiting) Positive occult stool blood test [place] Headache Anemia Acute upper GI bleed Diabetic polyneuropathy COVID-19 Thiamine deficiency Hand pain CVA (cerebral vascular accident) Head injury Left shoulder pain Left knee pain Left hip pain Left hand pain Dizziness Diabetic neuropathy Diabetes type 2, uncontrolled Type 2 diabetes mellitus with other diabetic kidney complication Proteinuria Type 2 diabetes mellitus with diabetic polyneuropathy Dyslipidemia Obesity due to excess calories Other and unspecified hyperlipidemia Chronic heart failure with preserved ejection fraction (HFpEF) Anemia Thrombocytosis Pulmonary hypertension Ischemic stroke Paroxysmal atrial fibrillation Atherosclerotic cardiovascular disease Hospital discharge follow-up Thrombus Urge urinary incontinence Iron deficiency anemia Pure hypercholesterolemia Essential hypertension Diabetes mellitus Lumbar degenerative disc disease Surgical History S/P cardiac pacemaker procedure S/P insertion of spinal cord stimulator H/O colonoscopy History of Mohs micrographic surgery for skin cancer Hx of cervical spine surgery History of partial hysterectomy Hx of cardiac cath Family History Family History Father Rectal cancer Hypertension Arthritis of knee CVD (cardiovascular disease) Mother Hypertension CVD (cardiovascular disease) Myocardial infarction Diabetes Social History Social History Household Members: Spouse Housing: Apartment Are you a primary body care manager to a significant other at home: No Alcohol intake: never Patient Tobacco Use Status: Former Tobacco user Quit Date: 1993 Tobacco use type: Cigarette Smoked in Last 30 Days: No e-Cigarette/Vaping Use: Never Used Second Hand Smoke Exposure: No Use of substances other than those prescribed or required for medical reasons: No Advance Directives: Yes Advance Directives on File: Yes Advance Directives Date on File: 07/17/20 service: No Current occupational status: retired Current occupation: Lt handed Cognitive needs: Yes (scodor/walker) Hearing needs: No Vision needs: Yes (glasses) Physical Exam ED Vital Signs: Vital Signs - 24 hr 03/30/23 12:46 03/30/23 13:03 03/30/23 15:21 Temperature 98 F 98.4 F Pulse Rate 70 70 Respiratory Rate 18 18 15 Blood Pressure 109/53 L 136/65 Pulse Oximetry 88 L 95 97 Oxygen Delivery Method Room Air Nasal Cannula Room Air Oxygen Flow Rate 1 03/30/23 18:39 Temperature 97.8 F Pulse Rate 69 Respiratory Rate 16 Blood Pressure 177/72 H Pulse Oximetry 99 Oxygen Delivery Method Room Air Oxygen Flow Rate BMI result Body Mass Index 34.5 Course Reevaluation(s) Reevaluation #1: Patient very anxious, agitated, unable to fall asleep. Will give her Ativan 2 mg p.o. Time: 01:26 Medications Administered Generic Name Dose Route Start Last Admin Trade Name Mike PRN Reason Stop Dose Admin Acetaminophen 650 mg 03/30/23 22:35 03/30/23 23:00 Acetaminophen 325 Mg Tablet PO 650 mg Q6H PRN Administration Pain (Scale Score 1-3) Atenolol 50 mg 03/31/23 09:00 03/30/23 23:00 Atenolol 50 Mg Tablet PO 50 mg BID SHANON Administration Protocol Baclofen 10 mg 03/30/23 22:35 03/30/23 23:00 Baclofen 10 Mg Tablet PO 10 mg TID PRN Administration muscle spasm Bisacodyl 5 mg 03/31/23 21:00 03/30/23 23:00 Bisacodyl 5 Mg Tablet.Dr PO 5 mg BEDTIME SHANON Administration Gabapentin 400 mg 03/31/23 09:00 03/30/23 23:00 Gabapentin 400 Mg Capsule PO 400 mg BID SHANON Administration Insulin Glargine 10 unit 03/31/23 21:00 03/30/23 22:59 Insulin Glargine,Hum.Rec.Anlog 100 Unit/Ml 10 Ml Vial SUBCUT 10 unit BEDTIME SHANON Administration Ondansetron HCl 4 mg 03/30/23 22:45 03/30/23 23:02 Ondansetron Odt 4 Mg Tab.Rapdis TRANSLINGU Not Given Q6H SHANON Discontinued Medications Generic Name Dose Route Start Last Admin Trade Name Mike PRN Reason Stop Dose Admin Sodium Chloride 1,000 mls @ 999 mls/hr 03/30/23 14:45 03/30/23 17:25 Ns IVCONT 03/30/23 15:45 Infused .Q1H1M SHANON Infusion Nitrofurantoin Macrocrystals 100 mg 03/30/23 16:08 03/30/23 17:25 Nitrofurantoin Monohyd/M-Cryst 100 Mg Capsule PO 03/30/23 16:09 100 mg BID ONE Administration Medical Decision Making Lab Data 03/30/23 13:27 03/30/23 13:27 Labs: Lab Results 03/30/23 03/30/23 03/30/23 Range/Units 13:27 15:23 16:34 WBC 9.0 (4.8-10.8) X10*3/uL RBC 4.32 (4.20-5.50) X10*6/uL Hgb 11.6 L (12.0-16.0) g/dl Hct 37.4 (37.0-47.0) % MCV 86.6 (80.0-98.0) fL MCH 26.9 L (27.0-33.0) pg MCHC 31.0 (31.0-35.0) g/dl RDW 16.7 H (11.0-16.0) % Plt Count 330 (160-400) X10*3/uL MPV 9.0 L (9.4-12.3) fL Immature Gran % (Auto) 0.2 (0.0-0.4) % Neut % (Auto) 64.1 (45-73) % Lymph % (Auto) 23.3 (20-40) % [place] % (Auto) 8.8 (2-11) % Eos % (Auto) 2.9 (0-4) % Baso % (Auto) 0.7 (0-2) % Lymph # (Auto) 2.1 (1.2-4.9) X10*3/uL [place] # (Auto) 0.8 (0.1-1.2) X10*3/uL Eos # (Auto) 0.3 (0.0-0.4) X10*3/uL Baso # (Auto) 0.1 (0.0-0.2) X10*3/uL Abs Immat Gran (auto) 0.02 (0.00-0.03) X10*3/uL Absolute Neuts (auto) 5.8 (2.0-8.3) x10*3/uL Absolute Nucleated RBC 0.000 (0.0-0.012) X10*3/uL Nucleated RBC % (auto) 0.0 (0.0-0.2) /100WBC Sodium 134 L (135-145) mmol/L Potassium 4.6 (3.3-5.1) mmol/L Chloride 95 L (96-108) mmol/L Carbon Dioxide 30 H (22-29) mmol/L Anion Gap 14 (12-20) BUN 33 H (9-16) mg/dL Creatinine 1.08 (0.5-1.4) mg/dL Estim Creat Clear Calc 48.2 Estimated GFR 50 POC Glucose (60-115) mg/dL Random Glucose 141 H (60-115) mg/dL Lactic Acid 0.9 (0.5-2.0) mmol/L Calcium 9.4 D (8.4-10.2) mg/dL Total Bilirubin 0.5 (0.0-1.0) mg/dL AST 18 (5-31) U/L ALT 13 (0-31) U/L Alkaline Phosphatase 60 (39-117) U/L Troponin I High Sens 34.3 H D 34.1 H (<3.5-17.0) ng/L B-Natriuretic Peptide 310 H (<100) pg/mL Total Protein 6.4 L (6.5-8.0) g/dL Albumin 3.4 L (3.5-5.0) g/dL Urine Color Yellow Urine Appearance Clear Urine pH 6.0 (5.0-9.0) Ur Specific [place] 1.010 (1.005-1.025) Urine Protein Negative (Neg-Trace) mg/dL Urine Glucose (UA) 500 H (Negative) mg/dL Urine Ketones Negative (Negative) mg/dL Urine Blood Negative (Negative) Urine Nitrite Negative (Negative) Ur Leukocyte Esterase Small (1+) H (Negative) Urine RBC 6-10 H (0-2) /HPF Urine WBC 6-10 H (0-5) /HPF Ur Squamous Epith Cells 3-5 (0-2) /HPF Urine Bacteria 4+ (None Seen) Hyaline Casts 0-2 (0-2) /LPF COVID-19 (S[facility]IRE) Negative (Negative) COVID-19 Clin Com See Note Influenza Type A (PCR) NEGATIVE (Negative) Influenza Type B (PCR) NEGATIVE (Negative) RSV RNA Qual (PCR) NEGATIVE (Negative) SARS-CoV-2 RNA (RT-PCR) NEGATIVE (Negative) 03/30/23 Range/Units 22:58 WBC (4.8-10.8) X10*3/uL RBC (4.20-5.50) X10*6/uL Hgb (12.0-16.0) g/dl Hct (37.0-47.0) % MCV (80.0-98.0) fL MCH (27.0-33.0) pg MCHC (31.0-35.0) g/dl RDW (11.0-16.0) % Plt Count (160-400) X10*3/uL MPV (9.4-12.3) fL Immature Gran % (Auto) (0.0-0.4) % Neut % (Auto) (45-73) % Lymph % (Auto) (20-40) % [place] % (Auto) (2-11) % Eos % (Auto) (0-4) % Baso % (Auto) (0-2) % Lymph # (Auto) (1.2-4.9) X10*3/uL [place] # (Auto) (0.1-1.2) X10*3/uL Eos # (Auto) (0.0-0.4) X10*3/uL Baso # (Auto) (0.0-0.2) X10*3/uL Abs Immat Gran (auto) (0.00-0.03) X10*3/uL Absolute Neuts (auto) (2.0-8.3) x10*3/uL Absolute Nucleated RBC (0.0-0.012) X10*3/uL Nucleated RBC % (auto) (0.0-0.2) /100WBC Sodium (135-145) mmol/L Potassium (3.3-5.1) mmol/L Chloride (96-108) mmol/L Carbon Dioxide (22-29) mmol/L Anion Gap (12-20) BUN (9-16) mg/dL Creatinine (0.5-1.4) mg/dL Estim Creat Clear Calc Estimated GFR POC Glucose 137 H (60-115) mg/dL Random Glucose (60-115) mg/dL Lactic Acid (0.5-2.0) mmol/L Calcium (8.4-10.2) mg/dL Total Bilirubin (0.0-1.0) mg/dL AST (5-31) U/L ALT (0-31) U/L Alkaline Phosphatase (39-117) U/L Troponin I High Sens (<3.5-17.0) ng/L B-Natriuretic Peptide (<100) pg/mL Total Protein (6.5-8.0) g/dL Albumin (3.5-5.0) g/dL Urine Color Urine Appearance Urine pH (5.0-9.0) Ur Specific [place] (1.005-1.025) Urine Protein (Neg-Trace) mg/dL Urine Glucose (UA) (Negative) mg/dL Urine Ketones (Negative) mg/dL Urine Blood (Negative) Urine Nitrite (Negative) Ur Leukocyte Esterase (Negative) Urine RBC (0-2) /HPF Urine WBC (0-5) /HPF Ur Squamous Epith Cells (0-2) /HPF Urine Bacteria (None Seen) Hyaline Casts (0-2) /LPF COVID-19 ([facility]PHIRE) (Negative) COVID-19 Clin Com Influenza Type A (PCR) (Negative) Influenza Type B (PCR) (Negative) RSV RNA Qual (PCR) (Negative) SARS-CoV-2 RNA (RT-PCR) (Negative) Discharge Plan Discharge Clinical Impression: Weakness Prescriptions: No Action (DME) blood-glucose meter [OneTouch Verio Meter] Misc See Rx Instructions .Route Qty: 1 0RF Rx Instructions: As directed acetaminophen 325 mg tablet 650 mg PO Q6H PRN (Reason: Pain (Scale Score 1-3)) Qty: 60 0RF atenolol 50 mg tablet 50 mg PO BID 90 Days Qty: 180 1RF Protocol: Hold for SBP/HR < HOLD for SBP < : 90 HOLD for HR < : 60 (DME) OneTouch Verio test strips Strip See Rx Instructions .Route Qty: 100 5RF Rx Instructions: Use 1 test strip twice a day cyanocobalamin (vitamin B-12) 1,000 mcg tablet 1,000 mcg PO DAILY 90 Days Qty: 90 3RF docusate sodium [DOK] 100 mg capsule 100 mg PO BID PRN (Reason: constipation) 90 Days Qty: 180 2RF Trulicity 3 mg/0.5 mL pen injector 3 mg subcut QWEEK 90 Days Qty: 6.5 1RF Jardiance 25 mg tablet 25 mg PO DAILY 90 Days Qty: 90 3RF estradiol 0.01 % (0.1 mg/gram) cream 1 appl vaginal 3XW Qty: 42.5 0RF fenofibrate 160 mg tablet 160 mg PO DAILY 90 Days Qty: 90 3RF fluticasone propionate 50 mcg/actuation spray,suspension 1 spray intranasal DAILY 90 Days Qty: 16 3RF Rx Instructions: administer into each nostril furosemide 40 mg tablet 40 mg PO DAILY 30 Days Qty: 30 1RF hydroxychloroquine [Plaquenil] 200 mg tablet 200 mg PO BID Qty: 180 3RF (DME) lancets Misc See Rx Instructions .Route Qty: 100 3RF Rx Instructions: USe 1 lancet once a day ketoconazole 2 % cream 1 appl topical BID 30 Days Qty: 30 0RF loratadine 10 mg tablet 10 mg PO DAILY 90 Days Qty: 90 0RF magnesium 200 mg tablet 200 mg PO DAILY 90 Days Qty: 90 5RF metformin 1,000 mg tablet 1,000 mg PO BIDWM 90 Days Qty: 180 1RF Myrbetriq 50 mg tablet extended release 24 hr 50 mg PO DAILY 90 Days Qty: 90 1RF nystatin 100,000 unit/gram powder 1 appl topical DAILY 15 Days Qty: 60 0RF omeprazole 40 mg capsule,delayed release(DR/EC) 40 mg PO DAILY@0630 90 Days Qty: 90 1RF riboflavin (vitamin B2) 400 mg tablet 400 mg PO DAILY Qty: 30 0RF Xarelto 20 mg tablet 20 mg PO DAILY@1700 90 Days Qty: 90 1RF ropinirole 0.25 mg tablet 0.5 mg PO BEDTIME 90 Days Qty: 180 1RF rosuvastatin [Crestor] 40 mg tablet 40 mg PO BEDTIME 90 Days Qty: 90 1RF sennosides [senna] 8.6 mg tablet 17.2 mg PO BEDTIME PRN (Reason: Constipation) 90 Days Qty: 90 1RF thiamine HCl (vitamin B1) 100 mg tablet 100 mg PO DAILY 90 Days Qty: 90 1RF baclofen 10 mg tablet 10 mg PO TID PRN (Reason: muscle spasm) 30 Days Qty: 90 1RF nyxsbfsrtv-ppikpqrhehflo-ngdy 50-325-40 mg tablet 1 tab PO Q4H PRN (Reason: Headache) 4 Days Qty: 24 0RF oxycodone 5 mg tablet 5 mg PO Q6H PRN (Reason: pain) 30 Days Qty: 90 0RF betamethasone dipropionate 0.05 % cream 1 appl topical DAILY PRN (Reason: Rash) bisacodyl 5 mg tablet,delayed release (DR/EC) 5 mg PO BEDTIME digoxin 125 mcg (0.125 mg) tablet 125 mcg PO DAILY lorazepam 0.5 mg tablet 0.5 mg PO DAILY PRN (Reason: Anxiety) gabapentin 600 mg tablet 400 mg PO BID meclizine 12.5 mg tablet 12.5 mg PO BID PRN (Reason: Dizziness Or Vertigo) polyethylene glycol 3350 [Miralax] 17 gram/dose powder 17 g PO DAILY multivitamin Tablet 1 tab PO DAILY fesoterodine [Toviaz] 8 mg tablet extended release 24 hr 8 mg PO DAILY ezetimibe [Zetia] 10 mg tablet 10 mg PO DAILY ondansetron HCl 4 mg tablet 4 mg PO Q6H escitalopram oxalate [Lexapro] 10 mg tablet 20 mg PO DAILY insulin degludec [Tresiba FlexTouch U-100] 100 unit/mL (3 mL) insulin pen 15 unit subcut BEDTIME
--- NOTE | 2023-03-31 01:32 | MHC.EDTECH ---
At this time Pt rang short to adjust the head of the bed .
--- NOTE | 2023-03-31 02:43 | PC.NURSE ---
pt declined med to help her sleep. she is resting in bed, on her phone at this time. no apparent distress.
--- NOTE | 2023-03-31 03:22 | MHC.EDTECH ---
At 0315 Pt rang short to adjust head of bed ,900 ml empty from Purewick and fresh ice water given ,Call short within Pt reach .
--- NOTE | 2023-03-31 04:19 | MHC.EDTECH ---
At 0410 Patient rang to say she was wet ,care given ,Complete bed change ,fresh gown on ,and warm blanket given ,Patient call short within reach .
[2023-03-31] MEDS: LORazepam 1 MG TABLET 2 MG PO (04:20)
[2023-03-31] MEDS: Ondansetron ODT 4 MG TAB.RAPDIS TRANSLINGU ×4 (04:20→23:52)
--- NOTE | 2023-03-31 04:25 | MHC.EDTECH ---
At 0425 Patient rang to adjust head of bed .
--- NOTE | 2023-03-31 04:26 | PC.NURSE ---
pt agreeable to take ativan at this time.
--- NOTE | 2023-03-31 04:31 | PC.NURSE ---
pt continues to ring call short multiple times in a matter of minutes in regards to elevating and lowering head of the bed.
--- NOTE | 2023-03-31 05:50 | PC.NURSE ---
pt asleep in stretcher; resps are even and unlabored; will continue to monitor.
[2023-03-31 06:00] VITALS: PULSE 72; RESP 16; TEMP 36.6; O2SAT 95
--- NOTE | 2023-03-31 06:19 | MHC.EDTECH ---
Pt fall asleep around 0550 ,rounding done ,Pt dry ,purewick is working fine ,Vitals taken ,But RN Guilherme said not to do blood Pressure because Pt sleeping ,Call short within Pt reach .
[2023-03-31 08:06] VITALS: RESP 14
--- NOTE | 2023-03-31 08:48 | PC.NURSE ---
PHYSICAL THERAPY AT BEDSIDE.
[2023-03-31 09:16] VITALS: BP 188/77; PULSE 70; RESP 16; TEMP 36.4; O2SAT 95
[2023-03-31] MEDS: Hydroxychloroquine Sulfate 200 MG TABLET PO ×2 (09:47→21:41)
[2023-03-31] MEDS: Magnesium Oxide 400 MG TABLET 200 MG PO (09:47)
[2023-03-31] MEDS: Multivitamin TABLET 1 TAB PO (09:47)
[2023-03-31] MEDS: Loratadine 10 MG TABLET PO (09:47)
[2023-03-31] MEDS: Thiamine HCL 100 MG TABLET PO (09:47)
[2023-03-31] MEDS: Ezetimibe 10 MG TABLET PO (09:47)
[2023-03-31] MEDS: Furosemide 40 MG TABLET PO (09:48)
[2023-03-31] MEDS: Cyanocobalamin (Vitamin B-12) 1,000 MCG TABLET 1000 MCG PO (09:48)
[2023-03-31] MEDS: Omeprazole 40 MG CAPSULE.DR PO (09:49)
[2023-03-31] MEDS: Digoxin 0.125 MG TABLET PO (09:49)
[2023-03-31] MEDS: Nystatin Powder 15 GM BOTTLE 1 APPL TOPICAL ×2 (09:49→10:44)
[2023-03-31] MEDS: metFORMIN HCl 1,000 MG TABLET 1000 MG PO ×2 (09:49→16:45)
[2023-03-31] MEDS: Escitalopram Oxalate 20 MG TABLET PO (09:49)
[2023-03-31] MEDS: polyethylene glycoL 3350 17 GM POWD.PACK PO (09:49)
[2023-03-31] MEDS: Fluticasone Propionate Nasal 16 GM SPRAY 1 SPRAY NOSTRIL-B (10:45)
[2023-03-31] MEDS: Fenofibrate 160 MG TABLET PO (11:20)
[2023-03-31] MEDS: Empagliflozin 25 MG TABLET PO (11:20)
[2023-03-31] MEDS: Mirabegron 50 MG TAB.ER.24H PO (11:21)
--- NOTE | 2023-03-31 11:28 | MHC.EDTECH ---
This PCT changed patient's linens and gown, patient dry. Patient assisted to recliner, new Purewick placed and working well, call short within patient's reach.
--- NOTE | 2023-03-31 11:32 | PC.NURSE ---
Addendum entered by Zuri Rodriguez 03/31/23 11:35: AWARE. SWALLOW NATALIYA/ASSESSL ORDER Original Note: PT TOOK HER 0900 MED IN MULTIPLE INCREMENT WITH WATER. NO ISSUES/CONCERN NOTED. PT WAS BEING GIVEN THE LAST OF HER 3 MEDS WHILE SITTING UP IN A RECLINER, PT REQUESTED APPLESAUCE AND STATE THAT SHE IS HAVING A PROBLEM SWALLOWING.
--- NOTE | 2023-03-31 11:36 | PC.NURSE ---
this RN resumed care of pt at this time. pt verbalizing new onset/difficulty swallowing at this time. swallow evaluation ordered. provider notified at this time. sublingual medication administered per provider order. pt verbalizing no pain at this time. family member bedside at this time. respirations even and unlabored. call short placed within reach.
--- NOTE | 2023-03-31 12:18 | MHC.EDTECH ---
Pt one assisted off the commode to chair and cleaned up. Resting quietly with call short within reach. at bedside.
--- NOTE | 2023-03-31 14:11 | PC.NURSE ---
pt currently sleeping at this time/resting in no apparent distress w/ the lights dimmed. respirations remain even and unlabored. call short placed within reach.
[2023-03-31 14:12] VITALS: RESP 14
--- NOTE | 2023-03-31 15:00 | PC.NURSE ---
swallow eval bedside.
--- NOTE | 2023-03-31 15:31 | MHC.SL.SWA ---
Speech Pathologist Impression: Risk of Aspiration Oral Phase Dysphagia Risk of Aspiration Due to: Lethargy Dysphasia Diet Status: DOWNGRADE to NDD2 Liquid Consistency and Strategies for Safe Swallow: Liquid Intake Recommendation: Thin Liquid Intake Strategies: Small Sips Solid Food Consistency: Dietary Recommendations: Grnd/Mech Altered (NDD2) Additional Modifications to Solid Foods: Pt w/ mild oral phase dysphagia characterized by slowed mastication and presence of oral residuals. Pt is recommended to start on GROUND/MECH ALTERED (NDD2) diet with extra sauces/gravies, THIN liquids, pills WHOLE in PUREE or LIQUID per pt's tolerance. Recommend pt to moisten foods w/ sauces/gravies, take small bites, chew well, alternate with sips of liquid. Maintain aspiration precautions. Diet order updated by PIPE BENDING MACHINE OPERATOR. Advised nursing in unit. Oral Medication Intake: Whole with Puree Please contact the pharmacy regarding appropriate crushable or liquid drug formulations that are available whenever modified delivery is recommended. Compensatory Strategies and Precautions to be Taken for Safe Swallow: Sitting Upright (90 deg) Double Swallow Small Bites and Sips Alternate Liquids/Solids Rate of Ingestion Change Oral Check Avoid Specific Foods Supervision While Eating and Drinking for Safe Swallow: Total Supervision (1:1) Swallowing Recommended Treatments: Compens. Strategy Educat. Recommendation for Speech: Inpatient Speech Therapy Comment: PIPE BENDING MACHINE OPERATOR will f/u 1-2x during hospital stay. Frequency/Duration: Date Range for Service Req: Timeline to reassess: Lockstitch Back Maker Clinican/Clinical Fellow: No Supervisory Statement: I have reviewed and agree with the student/clinical fellow's documentation: N/A Speech Language Pathologist: Roxane Venegas M.A., CCC-PIPE BENDING MACHINE OPERATOR
--- NOTE | 2023-03-31 16:19 | MHC.CM.PN ---
PT RECOMMENDING STR, PER NOTES, PT WAS DISCHARGED FROM [facility] ON 03/24/23, SO MAY HAVE A [facility] REFERRAL SENT BACK TO [facility], THEY ARE REVIEWING
--- NOTE | 2023-03-31 16:30 | PC.NURSE ---
report given to RN in overflow.
[2023-03-31] MEDS: Rivaroxaban 20 MG TABLET PO (16:45)
--- NOTE | 2023-03-31 16:50 | PC.NURSE ---
medication administered per provider order.
--- NOTE | 2023-03-31 17:34 | MHC.EDTECH ---
pt was moved to overflow 1 and is now resting comfortable in the bed with a purwick in place
[2023-03-31] MEDS: oxyCODONE HCl Immed Release 5 MG TABLET PO ×2 (17:49→23:51)
--- NOTE | 2023-03-31 18:01 | PC.NURSE ---
patient stating she is uncomfortable and requesting her PRN pain medications, medicated per the MAR. hot packs provided to place on patients neck. also requesting to be in a recliner, aware that staff has to obtain recliner at this time.
--- NOTE | 2023-03-31 18:43 | PC.NURSE ---
patient 2 assist into recliner at this time, eating her dinner with her son at the bedside.
[2023-03-31 20:42] LABS: Glucose, Whole Blood 197 mg/dL (60-115)
[2023-03-31] MEDS: Insulin Glargine,Hum.rec.anlog 100 UNIT/ML 10 ML VIAL 10 UNIT SUBCUT (20:58)
[2023-03-31] MEDS: Acetaminophen 325 MG TABLET 650 MG PO (20:58)
[2023-03-31] MEDS: Atorvastatin Calcium 80 MG TABLET PO (20:58)
[2023-03-31] MEDS: Gabapentin 400 MG CAPSULE PO (20:58)
[2023-03-31] MEDS: Baclofen 10 MG TABLET PO (20:58)
[2023-03-31 21:36] VITALS: BP 155/68; PULSE 71; RESP 18; TEMP 35.9; O2SAT 96
[2023-03-31] MEDS: atenoloL 50 MG TABLET PO (21:41)
[2023-03-31] MEDS: rOPINIRole HCL 0.5 MG TABLET PO (21:41)
--- NOTE | 2023-03-31 22:14 | MHC.EDTECH ---
pt is requesting to speak with the outpatient case manager in the morning because she has an appointment with her passenger agent in the morning and is concerned. RN aware.
--- NOTE | 2023-04-01 03:17 | PC.NURSE ---
Addendum entered by Zulma Ordaz RN 04/01/23 03:41: Pt has a peripheral IV on the right Wrist g 20, area benign and asymptomatic. Original Note: Pt seen on a recliner alert and oriented, son at bedside, meds given , XBT=[id number], lantus given, snacks tolerated, transferred to bed at bedtime, also c/o chronic neck pain, prn oxycodone 5 mg po given with favorable effect, anxious at times making calls frequently even after needs are met, repositioned on bed frequently for ease, callbell in reach, bed alarm on.
[2023-04-01] MEDS: LORazepam 0.5 MG TABLET PO (03:59)
[2023-04-01] MEDS: Ondansetron ODT 4 MG TAB.RAPDIS TRANSLINGU ×4 (05:16→22:22)
[2023-04-01] MEDS: Omeprazole 40 MG CAPSULE.DR PO (05:16)
[2023-04-01 05:49] VITALS: BP 168/84; PULSE 74; TEMP 36.8; O2SAT 98
[2023-04-01] MEDS: oxyCODONE HCl Immed Release 5 MG TABLET PO ×2 (07:29→22:49)
[2023-04-01 07:52] LABS: Glucose, Whole Blood 160 mg/dL (60-115)
[2023-04-01] MEDS: Gabapentin 400 MG CAPSULE PO ×2 (08:18→21:07)
[2023-04-01] MEDS: Loratadine 10 MG TABLET PO (08:18)
[2023-04-01] MEDS: Ezetimibe 10 MG TABLET PO (08:18)
[2023-04-01] MEDS: Multivitamin TABLET 1 TAB PO (08:18)
[2023-04-01] MEDS: Digoxin 0.125 MG TABLET PO (08:18)
[2023-04-01] MEDS: Cyanocobalamin (Vitamin B-12) 1,000 MCG TABLET 1000 MCG PO (08:19)
[2023-04-01] MEDS: Thiamine HCL 100 MG TABLET PO (08:19)
[2023-04-01] MEDS: metFORMIN HCl 1,000 MG TABLET 1000 MG PO ×2 (08:19→16:56)
[2023-04-01] MEDS: Furosemide 40 MG TABLET PO (08:19)
[2023-04-01] MEDS: Escitalopram Oxalate 20 MG TABLET PO (08:19)
[2023-04-01] MEDS: Magnesium Oxide 400 MG TABLET 200 MG PO (08:19)
[2023-04-01] MEDS: Empagliflozin 25 MG TABLET PO (08:19)
[2023-04-01] MEDS: polyethylene glycoL 3350 17 GM POWD.PACK PO (08:20)
[2023-04-01] MEDS: Hydroxychloroquine Sulfate 200 MG TABLET PO ×2 (10:25→21:07)
[2023-04-01] MEDS: atenoloL 50 MG TABLET PO ×2 (10:25→21:07)
[2023-04-01] MEDS: Fenofibrate 160 MG TABLET PO (10:26)
[2023-04-01] MEDS: Mirabegron 50 MG TAB.ER.24H PO (10:26)
[2023-04-01] MEDS: Clotrimazole 1 % Cream 15 GM TUBE 1 APPL TOPICAL ×2 (10:28→21:22)
[2023-04-01] MEDS: Fluticasone Propionate Nasal 16 GM SPRAY 1 SPRAY NOSTRIL-B (10:28)
[2023-04-01] MEDS: Triamcinolone Acet 0.5 % Cream 15 GM TUBE 1 APPL TOPICAL (10:29)
[2023-04-01 11:43] LABS: Glucose, Whole Blood 231 mg/dL (60-115)
[2023-04-01 14:00] VITALS: BP 133/67; PULSE 70; RESP 18; TEMP 36.1; O2SAT 98
--- NOTE | 2023-04-01 14:26 | MHC.SL.SWA ---
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 Pt is recommended to upgrade to CHOPPED/ADVANCED (NDD3) diet with extra sauces/gravies, THIN liquids, pills WHOLE in PUREE or LIQUID per pt's tolerance. Recommend pt to moisten foods w/ sauces/gravies, take small bites, chew well, alternate with sips of liquid. Maintain aspiration precautions. Diet order updated by ZIPPER TRIMMER. Oral Medication Intake: Whole with Puree Please contact the pharmacy regarding appropriate crushable or liquid drug formulations that are available whenever modified delivery is recommended. Compensatory Strategies and Precautions to be Taken for Safe Swallow: Sitting Upright (90 deg) Double Swallow Small Bites and Sips Alternate Liquids/Solids Rate of Ingestion Change Oral Check Avoid Specific Foods Supervision While Eating and Drinking for Safe Swallow: Total Supervision (1:1) Foods to Avoid: Swallowing Recommended Treatments: Compens. Strategy Educat. Recommendation for Speech: Inpatient Speech Therapy Comment: ZIPPER TRIMMER will f/u 1-2x during hospital stay. Timeline to reassess: PRN Wing Mailer Machine Operator Clinican/Clinical Fellow: No Supervisory Statement: I have reviewed and agree with the student/clinical fellow's documentation: N/A Speech Language Pathologist: Willian Gonzales MA, CCC-ZIPPER TRIMMER
--- NOTE | 2023-04-01 15:04 | MHC.CM.ED ---
Patient remains in ER overflow. Patient has used all of her Medicare days for rehab. Family is working with Tiffany Davis in [place] to complete a MH application. Patient will need to spend down $36,000 before qualifying to [facility]. [facility]. [facility] not able to offer a bed because patient may have to convert to LTC. Referral broadcasted locally. Patient and do not want to return to [facility]. Continue to monitor for d/c needs.
--- NOTE | 2023-04-01 15:57 | MHC.EDTECH ---
Brought patient a remote for T.V.
--- NOTE | 2023-04-01 16:03 | MHC.EDTECH ---
Gave patient personal pink blanket.
[2023-04-01 16:36] LABS: Glucose, Whole Blood 138 mg/dL (60-115)
[2023-04-01] MEDS: Rivaroxaban 20 MG TABLET PO (16:56)
[2023-04-01] MEDS: Butalb/Acetamin/Caff 50/325/40 TABLET 1 TAB PO (17:26)
[2023-04-01] MEDS: Atorvastatin Calcium 80 MG TABLET PO (21:06)
[2023-04-01] MEDS: Baclofen 10 MG TABLET PO (21:07)
[2023-04-01] MEDS: rOPINIRole HCL 0.5 MG TABLET PO (21:07)
[2023-04-01 21:21] LABS: Glucose, Whole Blood 152 mg/dL (60-115)
[2023-04-01] MEDS: Insulin Lispro 100 UNIT/ML 3 ML VIAL SUBCUT (21:21)
[2023-04-01 21:47] VITALS: BP 173/77; PULSE 69; RESP 18; TEMP 36.3; O2SAT 99
--- NOTE | 2023-04-01 22:17 | MHC.EDTECH ---
Patient requested a sandwich. Spoke with nurse, cut the sandwich up for the patient. Boosted, and sat up, refilled water and put call short next to the patient.
[2023-04-01] MEDS: Insulin Glargine,Hum.rec.anlog 100 UNIT/ML 10 ML VIAL 10 UNIT SUBCUT (22:18)
--- NOTE | 2023-04-02 01:26 | PC.NURSE ---
Assumed care at 0045. Patient in bed. Sleeping. Respirations even. No signs of distress. Bed alarm on. Call short in reach.
[2023-04-02] MEDS: Ondansetron ODT 4 MG TAB.RAPDIS TRANSLINGU ×4 (05:22→21:58)
[2023-04-02] MEDS: Omeprazole 40 MG CAPSULE.DR PO (05:22)
[2023-04-02 05:46] VITALS: BP 161/86; PULSE 86; RESP 19; TEMP 36.4; O2SAT 96
[2023-04-02 07:29] LABS: Glucose, Whole Blood 149 mg/dL (60-115)
[2023-04-02] MEDS: Furosemide 40 MG TABLET PO (08:42)
[2023-04-02] MEDS: polyethylene glycoL 3350 17 GM POWD.PACK PO (08:42)
[2023-04-02] MEDS: Gabapentin 400 MG CAPSULE PO ×2 (08:43→20:37)
[2023-04-02] MEDS: Digoxin 0.125 MG TABLET PO (08:43)
[2023-04-02] MEDS: Thiamine HCL 100 MG TABLET PO (08:43)
[2023-04-02] MEDS: Cyanocobalamin (Vitamin B-12) 1,000 MCG TABLET 1000 MCG PO (08:43)
[2023-04-02] MEDS: Loratadine 10 MG TABLET PO (08:43)
[2023-04-02] MEDS: Ezetimibe 10 MG TABLET PO (08:43)
[2023-04-02] MEDS: atenoloL 50 MG TABLET PO ×2 (08:43→20:37)
[2023-04-02] MEDS: Escitalopram Oxalate 20 MG TABLET PO (08:43)
[2023-04-02] MEDS: Mirabegron 50 MG TAB.ER.24H PO (08:43)
[2023-04-02] MEDS: Empagliflozin 25 MG TABLET PO (08:43)
[2023-04-02] MEDS: Hydroxychloroquine Sulfate 200 MG TABLET PO ×2 (08:43→20:37)
[2023-04-02] MEDS: Fenofibrate 160 MG TABLET PO (08:43)
[2023-04-02] MEDS: Clotrimazole 1 % Cream 15 GM TUBE 1 APPL TOPICAL ×2 (08:44→20:37)
[2023-04-02] MEDS: Magnesium Oxide 400 MG TABLET 200 MG PO (08:44)
[2023-04-02] MEDS: Nystatin Powder 15 GM BOTTLE 1 APPL TOPICAL (08:44)
[2023-04-02] MEDS: Multivitamin TABLET 1 TAB PO (08:44)
[2023-04-02] MEDS: Fluticasone Propionate Nasal 16 GM SPRAY 1 SPRAY NOSTRIL-B (08:44)
--- NOTE | 2023-04-02 10:12 | PHA.MEDREC ---
Pharmacy Consult ? Medication Reconciliation Pharmacy has completed the medication reconciliation. Med rec completed by nursing who annotated they spoke to a provider's office.
[2023-04-02 11:44] LABS: Glucose, Whole Blood 197 mg/dL (60-115)
[2023-04-02] MEDS: Insulin Lispro 100 UNIT/ML 3 ML VIAL SUBCUT ×3 (11:49→20:38)
--- NOTE | 2023-04-02 12:18 | PC.NURSE ---
Pt sitting up in recliner chair eating lunch.
[2023-04-02 14:53] VITALS: BP 167/78; PULSE 70; RESP 18; TEMP 36.8; O2SAT 97
[2023-04-02] MEDS: Baclofen 10 MG TABLET PO (14:58)
[2023-04-02] MEDS: LORazepam 0.5 MG TABLET PO (14:58)
[2023-04-02 16:26] LABS: Glucose, Whole Blood 153 mg/dL (60-115)
[2023-04-02] MEDS: Rivaroxaban 20 MG TABLET PO (16:56)
--- NOTE | 2023-04-02 17:21 | PC.NURSE ---
Pt given dinner tray. at bedside. pt ambulatory around unit with walker.
[2023-04-02] MEDS: Butalb/Acetamin/Caff 50/325/40 TABLET 1 TAB PO (17:53)
--- NOTE | 2023-04-02 19:48 | PC.NURSE ---
Assumed care at 19:00. Patient in a hospital bed, repositioned, purewick applied. Respirations even, unlabored. No signs of distress. Patient's daughter at bedside. Bed alarm on. Call short in reach.
--- NOTE | 2023-04-02 20:02 | MHC.EDTECH ---
Assisted patient to commode. Pt had small bowel movment. Romy care done and assisted pt to brush her teeth. Back to bed and purewick placed. RN aware.
[2023-04-02 20:14] LABS: Glucose, Whole Blood 195 mg/dL (60-115)
[2023-04-02] MEDS: Atorvastatin Calcium 80 MG TABLET PO (20:37)
[2023-04-02] MEDS: bisacodyL 5 MG TABLET.DR PO (20:52)
[2023-04-02] MEDS: rOPINIRole HCL 0.5 MG TABLET PO (20:52)
[2023-04-02] MEDS: Nitrofurantoin Monohyd/M-Cryst 100 MG CAPSULE PO (20:52)
--- NOTE | 2023-04-02 21:13 | PC.NURSE ---
Patient medicated with per MAR. Call short within patient's reach.
[2023-04-02] MEDS: oxyCODONE HCl Immed Release 5 MG TABLET PO (21:57)
[2023-04-03 03:28] VITALS: BP 158/82; PULSE 71; RESP 16; TEMP 36.4; O2SAT 96
[2023-04-03] MEDS: Acetaminophen 325 MG TABLET 650 MG PO ×2 (03:33→19:49)
[2023-04-03] MEDS: Ondansetron ODT 4 MG TAB.RAPDIS TRANSLINGU ×3 (03:49→16:22)
--- NOTE | 2023-04-03 05:31 | PC.NURSE ---
Patient noted to be anxious at times throughout the night, using call short frequently even after needs are met. Patient sleeping at present, respirations even, non-labored, purewick in place, call short within reach.
[2023-04-03] MEDS: Omeprazole 40 MG CAPSULE.DR PO (06:25)
[2023-04-03 07:12] LABS: Glucose, Whole Blood 136 mg/dL (60-115)
[2023-04-03] MEDS: Multivitamin TABLET 1 TAB PO (08:33)
[2023-04-03] MEDS: Magnesium Oxide 400 MG TABLET 200 MG PO (08:33)
[2023-04-03] MEDS: Nitrofurantoin Monohyd/M-Cryst 100 MG CAPSULE PO ×2 (08:33→22:04)
[2023-04-03] MEDS: Mirabegron 50 MG TAB.ER.24H PO (08:33)
[2023-04-03] MEDS: Gabapentin 400 MG CAPSULE PO ×2 (08:34→19:49)
[2023-04-03] MEDS: Ezetimibe 10 MG TABLET PO (08:34)
[2023-04-03] MEDS: Cyanocobalamin (Vitamin B-12) 1,000 MCG TABLET 1000 MCG PO (08:34)
[2023-04-03] MEDS: Empagliflozin 25 MG TABLET PO (08:34)
[2023-04-03] MEDS: Escitalopram Oxalate 20 MG TABLET PO (08:35)
[2023-04-03] MEDS: Fenofibrate 160 MG TABLET PO (08:35)
[2023-04-03] MEDS: Hydroxychloroquine Sulfate 200 MG TABLET PO ×2 (08:36→19:50)
[2023-04-03] MEDS: Thiamine HCL 100 MG TABLET PO (08:36)
[2023-04-03] MEDS: Furosemide 40 MG TABLET PO (08:36)
[2023-04-03] MEDS: Digoxin 0.125 MG TABLET PO (08:36)
[2023-04-03] MEDS: Loratadine 10 MG TABLET PO (08:36)
[2023-04-03] MEDS: atenoloL 50 MG TABLET PO ×2 (08:37→19:50)
[2023-04-03] MEDS: polyethylene glycoL 3350 17 GM POWD.PACK PO (08:37)
[2023-04-03] MEDS: Triamcinolone Acet 0.5 % Cream 15 GM TUBE 1 APPL TOPICAL (08:39)
[2023-04-03] MEDS: Nystatin Powder 15 GM BOTTLE 1 APPL TOPICAL (08:39)
[2023-04-03] MEDS: Fluticasone Propionate Nasal 16 GM SPRAY 1 SPRAY NOSTRIL-B (08:39)
[2023-04-03] MEDS: Clotrimazole 1 % Cream 15 GM TUBE 1 APPL TOPICAL ×2 (08:39→22:07)
[2023-04-03] MEDS: Baclofen 10 MG TABLET PO ×2 (09:06→19:50)
[2023-04-03 09:22] VITALS: BP 146/66; PULSE 72; RESP 18; TEMP 36.4; O2SAT 93
[2023-04-03] MEDS: LORazepam 0.5 MG TABLET PO ×2 (10:18→20:55)
[2023-04-03] MEDS: Lidocaine 4 % Patch ADH..PATCH 1 PATCH TRANSDERMA (10:19)
[2023-04-03 11:28] LABS: Glucose, Whole Blood 175 mg/dL (60-115)
[2023-04-03] MEDS: Insulin Lispro 100 UNIT/ML 3 ML VIAL SUBCUT ×3 (12:04→19:51)
[2023-04-03] MEDS: oxyCODONE HCl Immed Release 5 MG TABLET PO (13:59)
[2023-04-03 14:00] VITALS: BP 146/68; PULSE 70; RESP 18; TEMP 36.6; O2SAT 96
[2023-04-03 16:09] LABS: Glucose, Whole Blood 265 mg/dL (60-115)
[2023-04-03] MEDS: Rivaroxaban 20 MG TABLET PO (16:22)
[2023-04-03 19:33] LABS: Glucose, Whole Blood 270 mg/dL (60-115)
[2023-04-03] MEDS: Atorvastatin Calcium 80 MG TABLET PO (19:49)
[2023-04-03] MEDS: Insulin Glargine,Hum.rec.anlog 100 UNIT/ML 10 ML VIAL 10 UNIT SUBCUT (19:50)
[2023-04-03] MEDS: rOPINIRole HCL 0.5 MG TABLET PO (19:50)
[2023-04-03 19:56] VITALS: BP 136/47; PULSE 69; RESP 16; TEMP 36.1; O2SAT 94
[2023-04-04 05:43] VITALS: BP 137/68; PULSE 72; RESP 16; TEMP 36.1; O2SAT 96
[2023-04-04] MEDS: Omeprazole 40 MG CAPSULE.DR PO (06:24)
[2023-04-04 07:38] LABS: Glucose, Whole Blood 121 mg/dL (60-115)
[2023-04-04] MEDS: Hydroxychloroquine Sulfate 200 MG TABLET PO ×2 (08:21→20:26)
[2023-04-04] MEDS: Thiamine HCL 100 MG TABLET PO (08:21)
[2023-04-04] MEDS: metFORMIN HCl 1,000 MG TABLET 1000 MG PO (08:21)
[2023-04-04] MEDS: Ezetimibe 10 MG TABLET PO (08:21)
[2023-04-04] MEDS: Multivitamin TABLET 1 TAB PO (08:21)
[2023-04-04] MEDS: Magnesium Oxide 400 MG TABLET 200 MG PO (08:22)
[2023-04-04] MEDS: Escitalopram Oxalate 20 MG TABLET PO (08:22)
[2023-04-04] MEDS: Cyanocobalamin (Vitamin B-12) 1,000 MCG TABLET 1000 MCG PO (08:25)
[2023-04-04] MEDS: Furosemide 40 MG TABLET PO (08:25)
[2023-04-04] MEDS: Gabapentin 400 MG CAPSULE PO ×2 (08:25→20:26)
[2023-04-04] MEDS: Mirabegron 50 MG TAB.ER.24H PO (08:25)
[2023-04-04] MEDS: Fenofibrate 160 MG TABLET PO (08:25)
[2023-04-04] MEDS: Empagliflozin 25 MG TABLET PO (08:25)
[2023-04-04] MEDS: atenoloL 50 MG TABLET PO ×2 (08:26→20:26)
[2023-04-04] MEDS: Digoxin 0.125 MG TABLET PO (08:27)
[2023-04-04] MEDS: Clotrimazole 1 % Cream 15 GM TUBE 1 APPL TOPICAL ×2 (08:31→20:28)
[2023-04-04] MEDS: Nystatin Powder 15 GM BOTTLE 1 APPL TOPICAL (08:31)
[2023-04-04] MEDS: Fluticasone Propionate Nasal 16 GM SPRAY 1 SPRAY NOSTRIL-B (08:32)
[2023-04-04 08:40] VITALS: BP 138/49; PULSE 70; O2SAT 95
[2023-04-04] MEDS: Nitrofurantoin Monohyd/M-Cryst 100 MG CAPSULE PO ×2 (08:47→20:38)
--- NOTE | 2023-04-04 10:12 | MHC.CM.ED ---
Addendum entered by Nadia Contreras 04/04/23 16:10: Received return telephone call from [employer]. Patient's spend down for [employer] has already been spent. Addendum entered by Nadia Contreras 04/04/23 15:17: Spoke with patient's son, Edu via telephone. Edu does not know the specifics of the finances because his brother, Basil was at the pap[employer] mache[employer] molder with his father. Discharge planning options discussed with Edu. Edu verifies patient wanting to go home with private pay care not being a good option at this time because patient's , Jamal is not physically capable of caring for the patient 02/12. Edu is going to speak with his parents and family this weekend about realistic discharge plans. Attempted to speak with Basil via telephone at [phone]. Left message requesting return telephone call. Addendum entered by Nadia Contreras 04/04/23 13:24: [facility], [facility], [facility], and [facility] to offer a bed. Met with patient and , Jamal to discuss placement options. Both are upset there is no bed availability in [place]. Both requesting T/W speak with patient's son, Edu. Attempted to reach Edu via telephone at [phone]. No answer. No ability to leave a voicemail. Will attempt to reach Edu again. Original Note: Patient remains in ER Overflow. Patient needs STR. Has no remaining Medicare days. Will need to privately pay. Has to spend down $36,000 before she will qualify for inpatient. No bed offers at this time. Referral broadcasted within 50 miles. Continue to monitor for d/c needs.
[2023-04-04 11:40] LABS: Glucose, Whole Blood 184 mg/dL (60-115)
--- NOTE | 2023-04-04 12:05 | PC.NURSE ---
0700: pt a+O x3. pt reports that she wears bi-pap at home, pt's sat 87-89% r/a while she was sleeping, she was placed on 2L o2 n/c, her o2 went up to 95-97%. pt c/o chronic neck and back pain that she describes as a lot of pain out of 10 . 0745: pt refused CLARITIN AND MIRALAX, LAST BM WAS LAST NIGHT. all other meds given as documented. iv discontinued. vss.
[2023-04-04] MEDS: oxyCODONE HCl Immed Release 5 MG TABLET PO (16:18)
[2023-04-04 16:57] LABS: Glucose, Whole Blood 151 mg/dL (60-115)
[2023-04-04] MEDS: Ondansetron ODT 4 MG TAB.RAPDIS TRANSLINGU ×2 (17:21→22:03)
[2023-04-04] MEDS: Rivaroxaban 20 MG TABLET PO (17:21)
[2023-04-04 17:59] VITALS: BP 142/76; PULSE 69; RESP 18; TEMP 36.6; O2SAT 94
--- NOTE | 2023-04-04 17:59 | PC.NURSE ---
pt requested pain med for 10/10 neck and back pain, med given as documented pt assisted to commode using walker. currently sitting in recliner doing arts and craft, at her bedside.
--- NOTE | 2023-04-04 18:33 | PC.NURSE ---
pt assisted back into bed, boosted up by 2 staff.
--- NOTE | 2023-04-04 20:03 | MHC.EDTECH ---
This pct assumed care of pt at 1900 ,Pt was incontinent of urine ,bed bath given ,lotion and baby powder apply ,bedding change ,Clean Pure wick in Place ,Call short within Pt reach .
[2023-04-04 20:18] LABS: Glucose, Whole Blood 212 mg/dL (60-115)
[2023-04-04] MEDS: Insulin Glargine,Hum.rec.anlog 100 UNIT/ML 10 ML VIAL 10 UNIT SUBCUT (20:23)
[2023-04-04] MEDS: Insulin Lispro 100 UNIT/ML 3 ML VIAL SUBCUT (20:24)
[2023-04-04] MEDS: rOPINIRole HCL 0.5 MG TABLET PO (20:26)
[2023-04-04] MEDS: Atorvastatin Calcium 80 MG TABLET PO (20:26)
[2023-04-04] MEDS: bisacodyL 5 MG TABLET.DR PO (20:38)
[2023-04-04 21:12] VITALS: BP 176/73; PULSE 69; RESP 16; TEMP 36.2; O2SAT 96
--- NOTE | 2023-04-04 22:00 | MHC.EDTECH ---
Patient is very restless ,ringing frequently to check Purewick and reposition her neck and head .
[2023-04-04] MEDS: Acetaminophen 325 MG TABLET 650 MG PO (22:03)
[2023-04-04] MEDS: LORazepam 0.5 MG TABLET PO (22:04)
--- NOTE | 2023-04-04 22:07 | PC.NURSE ---
Addendum entered by Radha Worthington 04/04/23 23:18: Pt requesting specific mask for CPAP use, RT does not have at this time. Addendum entered by Radha Worthington 04/04/23 22:20: Pt feeling anxious about not being able to get comfortable, calling out for help. Pt medicated per JUL. Original Note: This internal communications writer assumed care of this Pt at 1900. Pt A&Ox4, reports headache, primary d/t having a c-callar while in rehab. Pt given towel for comfort. Pt medicated per JUL, requesting pudding with meds. Pt states she wears a CPAP at home, provider Carlos Valdez made aware, and RT notified.
--- NOTE | 2023-04-04 23:10 | MHC.EDTECH ---
Patient lisa short wanted to be reposition ,not being able to get comfortable ,was reposition and boosted up in bed .
--- NOTE | 2023-04-05 03:05 | PC.NURSE ---
Pt appears to be sleeping at this time, equal, non labored respirations, no apparent distress.
--- NOTE | 2023-04-05 03:49 | MHC.EDTECH ---
Patient rang was incontinent of urine ,care given and bedding change ,900 ml empty from purewick .
[2023-04-05] MEDS: Ondansetron ODT 4 MG TAB.RAPDIS TRANSLINGU ×4 (04:42→19:30)
--- NOTE | 2023-04-05 04:46 | MHC.EDTECH ---
Patient rang short to have a bowel movement ,Patient was assisted to commode ,sat their for about 20 mins ,void ,was assisted back to bed ,new purewick in Place ,bed alarm on ,vitals taken ,Call short in Place .
[2023-04-05 04:50] VITALS: BP 181/75; PULSE 69; RESP 16; TEMP 36.2
[2023-04-05] MEDS: Omeprazole 40 MG CAPSULE.DR PO (06:31)
[2023-04-05 07:36] LABS: Glucose, Whole Blood 156 mg/dL (60-115)
[2023-04-05] MEDS: Butalb/Acetamin/Caff 50/325/40 TABLET 1 TAB PO ×2 (07:54→19:30)
[2023-04-05] MEDS: Insulin Lispro 100 UNIT/ML 3 ML VIAL SUBCUT ×3 (07:56→20:30)
--- NOTE | 2023-04-05 08:13 | MHC.EDTECH ---
went to check on patient. Helped patient up to commode. 1x with walker. Patient requested to sit up in recliner for breakfast. POC checked. 156 RN aware.
[2023-04-05 09:15] VITALS: BP 168/76; PULSE 69
--- NOTE | 2023-04-05 09:34 | MHC.EDTECH ---
pt feeling nauseous. Rn aware, meds given. Patient put on commode. Had large bowel movement.
[2023-04-05] MEDS: Empagliflozin 25 MG TABLET PO (09:38)
[2023-04-05] MEDS: Ezetimibe 10 MG TABLET PO (09:39)
[2023-04-05] MEDS: Magnesium Oxide 400 MG TABLET 200 MG PO (09:39)
[2023-04-05] MEDS: Mirabegron 50 MG TAB.ER.24H PO (09:39)
[2023-04-05] MEDS: Gabapentin 400 MG CAPSULE PO ×2 (09:39→20:31)
[2023-04-05] MEDS: atenoloL 50 MG TABLET PO ×2 (09:39→20:31)
[2023-04-05] MEDS: Digoxin 0.125 MG TABLET PO (09:39)
[2023-04-05] MEDS: Fenofibrate 160 MG TABLET PO (09:39)
[2023-04-05] MEDS: Thiamine HCL 100 MG TABLET PO (09:39)
[2023-04-05] MEDS: Hydroxychloroquine Sulfate 200 MG TABLET PO ×2 (09:39→20:31)
[2023-04-05] MEDS: Multivitamin TABLET 1 TAB PO (09:39)
[2023-04-05] MEDS: Nitrofurantoin Monohyd/M-Cryst 100 MG CAPSULE PO ×2 (09:40→20:32)
[2023-04-05] MEDS: Furosemide 40 MG TABLET PO (09:40)
[2023-04-05] MEDS: Escitalopram Oxalate 20 MG TABLET PO (09:40)
[2023-04-05] MEDS: Loratadine 10 MG TABLET PO (09:40)
[2023-04-05] MEDS: Cyanocobalamin (Vitamin B-12) 1,000 MCG TABLET 1000 MCG PO (09:40)
[2023-04-05] MEDS: Nystatin Powder 15 GM BOTTLE 1 APPL TOPICAL (09:47)
[2023-04-05] MEDS: polyethylene glycoL 3350 17 GM POWD.PACK PO (09:51)
[2023-04-05] MEDS: Fluticasone Propionate Nasal 16 GM SPRAY 1 SPRAY NOSTRIL-B (09:55)
[2023-04-05] MEDS: Clotrimazole 1 % Cream 15 GM TUBE 1 APPL TOPICAL ×2 (09:57→20:36)
--- NOTE | 2023-04-05 11:06 | MHC.EDTECH ---
pt up to commode again. had 2nd large bowel movement. Complaining of abd pain. RN aware. Pt sitting up in recliner at this time.
[2023-04-05 11:43] LABS: Glucose, Whole Blood 190 mg/dL (60-115)
--- NOTE | 2023-04-05 12:55 | PC.NURSE ---
Patient alert and oriented x3. Pt c/o headache/neck pain, dizziness with movement. Fioricet given for headache with good affect. Patient also reporting abdominal discomfort with intermittent nausea, scheduled zofran given per EMAR. Patient OOB to commode multiple times throughout shift with loose/soft stools. POCs for breakfast and lunch 156 and 190, respectively. Insulin given per EMAR. Per patient she does not take metformin, refused morning dose. No visible issues swallowing throughout shift, meds taken 1 pill at a time with applesauce. VSS. Ambulated in hallway with walker and staff member. All needs met.
[2023-04-05 14:28] VITALS: BP 159/72; PULSE 70; RESP 19; TEMP 36.9; O2SAT 98
[2023-04-05 16:00] VITALS: BP 128/65; PULSE 69; RESP 16; TEMP 36.7; O2SAT 95
[2023-04-05 17:03] LABS: Glucose, Whole Blood 127 mg/dL (60-115)
[2023-04-05] MEDS: Rivaroxaban 20 MG TABLET PO (17:04)
--- NOTE | 2023-04-05 17:56 | PC.NURSE ---
Patient c/o she feels nauseas gave her zofran not long ago before she ate her dinner. Just ate soup now feeling sick. Stephen NATION notified.
--- NOTE | 2023-04-05 18:13 | MHC.EDTECH ---
Patient was assisted unto bedside commode void ,sat at the side of the bed in very good mood , ate dinner ,had soup tea ,fruit and sandwich ,then Pt came to visit and Patient started to say she was not feeling well ,asked for vitals to be taken i did ,asked for a vomit bag ,but did not vomit ,Patient is very upset that something is wrong with her so b/p was elevated ,GARRETT Torres aware ,Patient and family asked to speak to a doctor ,because they never got any results from all the test ,Provider Stephen came over to see Patient .
[2023-04-05 18:28] VITALS: BP 175/76; PULSE 74; RESP 16; TEMP 37; O2SAT 96
--- NOTE | 2023-04-05 18:28 | PC.NURSE ---
Stephen NATION came and discussed CT scan results and labs with patient and family at bedside. Ordered lidocaine patch for pain in neck and labs for the AM.
--- NOTE | 2023-04-05 18:34 | ED_ITS ---
HPI - General Adult General Chief complaint: General Medical Stated complaint: INCR WEAKNESS PER EMS Time Seen by Provider: 03/30/23 14:32 Source: patient Mode of arrival: EMS Limitations: no limitations History of Present Illness Relieving factors: none Exacerbating factors: none Associated symptoms: denies other symptoms Related Data Home Medications Medication Instructions Recorded Confirmed betamethasone dipropionate 0.05 % 1 appl topical DAILY PRN Rash 03/26/23 03/30/23 topical cream bisacodyl 5 mg tablet,delayed 5 mg PO BEDTIME 03/26/23 03/30/23 release digoxin 125 mcg (0.125 mg) tablet 125 mcg PO DAILY 03/26/23 03/30/23 escitalopram oxalate 10 mg tablet 20 mg PO DAILY 03/26/23 03/30/23 (Lexapro) ezetimibe 10 mg tablet (Zetia) 10 mg PO DAILY 03/26/23 03/30/23 fesoterodine 8 mg tablet,extended 8 mg PO DAILY 03/26/23 03/30/23 release 24 hr (Toviaz) gabapentin 600 mg tablet 400 mg PO BID 03/26/23 03/30/23 insulin degludec 100 unit/mL (3 15 unit subcut BEDTIME 03/26/23 03/30/23 mL) subcutaneous pen (Tresiba FlexTouch U-100 insulin) lorazepam 0.5 mg tablet 0.5 mg PO DAILY PRN Anxiety 03/26/23 03/30/23 meclizine 12.5 mg tablet 12.5 mg PO BID PRN Dizziness Or 03/26/23 03/30/23 Vertigo multivitamin 1 tab PO DAILY 03/26/23 03/30/23 ondansetron HCl 4 mg tablet 4 mg PO Q6H 03/26/23 03/30/23 polyethylene glycol 3350 17 17 g PO DAILY 03/26/23 03/30/23 gram/dose oral powder (Miralax) Previous Rx's Medication Instructions Recorded blood-glucose meter (Vaultus Mobileuch #1 ea 06/12/22 Verio Meter) acetaminophen 325 mg tablet 650 mg (2 x 325 mg) PO Q6H PRN 03/26/23 Pain (Scale Score 1-3) #60 tabs atenolol 50 mg tablet 50 mg PO BID 90 days #180 tabs 11/15/23 baclofen 10 mg tablet 10 mg PO TID PRN muscle spasm 30 03/26/23 days #90 tabs blood sugar diagnostic (OneTouch #100 ea 03/26/23 Verio test strips) [id number] 1 tab PO Q4H PRN Headache 4 days 03/26/23 50 mg-325 mg-40 mg tablet #24 tabs cyanocobalamin (vitamin B-12) 1,000 mcg PO DAILY 90 days #90 tabs 03/26/23 1,000 mcg tablet docusate sodium 100 mg capsule 100 mg PO BID PRN constipation 90 03/26/23 (DOK) days #180 caps dulaglutide 3 mg/0.5 mL 3 mg (0.5 mL) subcut QWEEK 90 days 03/26/23 subcutaneous pen injector #6.5 mL (Trulicity) empagliflozin 25 mg tablet 25 mg PO DAILY 90 days #90 tabs 03/26/23 (Jardiance) estradiol 0.01% (0.1 mg/gram) 1 appl vaginal 3XW #42.5 grams 03/26/23 vaginal cream fenofibrate 160 mg tablet 160 mg PO DAILY 90 days #90 tabs 03/26/23 fluticasone propionate 50 1 spray intranasal DAILY 90 days 03/26/23 mcg/actuation nasal #16 grams spray,suspension furosemide 40 mg tablet 40 mg PO DAILY 30 days #30 tabs 03/26/23 hydroxychloroquine 200 mg tablet 200 mg PO BID #180 tabs 03/26/23 (Plaquenil) ketoconazole 2 % topical cream 1 appl topical BID 30 days #30 03/26/23 grams lancets #100 ea 03/26/23 loratadine 10 mg tablet 10 mg PO DAILY 90 days #90 tabs 03/26/23 magnesium 200 mg tablet 200 mg PO DAILY 90 days #90 tabs 03/26/23 metformin 1,000 mg tablet 1,000 mg PO BIDWM 90 days #180 tabs 03/26/23 mirabegron 50 mg tablet,extended 50 mg PO DAILY 90 days #90 tabs 03/26/23 release 24 hr (Myrbetriq) nystatin 100,000 unit/gram topical 1 appl topical DAILY 15 days #60 03/26/23 powder grams omeprazole 40 mg capsule,delayed 40 mg PO DAILY@0630 90 days #90 03/26/23 release caps oxycodone 5 mg tablet 5 mg PO Q6H PRN pain 30 days #90 03/26/23 tabs riboflavin (vitamin B2) 400 mg 400 mg PO DAILY #30 tabs 03/26/23 tablet rivaroxaban 20 mg tablet (Xarelto) 20 mg PO DAILY@1700 90 days #90 03/26/23 tabs ropinirole 0.25 mg tablet 0.5 mg (2 x 0.25 mg) PO BEDTIME 90 03/26/23 days #180 tabs rosuvastatin 40 mg tablet (Crestor) 40 mg PO BEDTIME 90 days #90 tabs 03/26/23 sennosides 8.6 mg tablet (senna) 17.2 mg (2 x 8.6 mg) PO BEDTIME 03/26/23 PRN Constipation 90 days #90 tabs thiamine HCl (vitamin B1) 100 mg 100 mg PO DAILY 90 days #90 tabs 03/26/23 tablet Allergies Allergy/AdvReac Type Severity Reaction Status Date / Time morphine [Morphine] Allergy Severe ITCHING, Verified 03/26/23 16:46 hives cefdinir Allergy Intermediate hives Verified 03/26/23 16:46 sulfamethoxazole Allergy Intermediate RASH Verified 03/26/23 16:46 trimethoprim Allergy Intermediate RASH Verified 03/26/23 16:46 duloxetine AdvReac Severe altered Verified 03/26/23 16:46 behavior betina AdvReac Mild RUNNY NOSE Verified 03/26/23 16:46 mustard AdvReac Mild RUNNY NOSE Verified 03/26/23 16:46 potato [POTATO] AdvReac Mild ITCHY NOSE Verified 03/26/23 16:46 soybean AdvReac Mild RUNNY NOSE Verified 03/26/23 16:46 cheese AdvReac Intermediate head Uncoded 03/26/23 16:46 congestion PMFSH Past Medical History Medical History (HFpEF) heart failure with preserved ejection fraction Mild recurrent major depression Hyperlipidemia LDL goal <70 Post-dural puncture headache PONV (postoperative nausea and vomiting) Positive occult stool blood test [place] Headache Anemia Acute upper GI bleed Diabetic polyneuropathy COVID-19 Thiamine deficiency Hand pain CVA (cerebral vascular accident) Head injury Left shoulder pain Left knee pain Left hip pain Left hand pain Dizziness Diabetic neuropathy Diabetes type 2, uncontrolled Type 2 diabetes mellitus with other diabetic kidney complication Proteinuria Type 2 diabetes mellitus with diabetic polyneuropathy Dyslipidemia Obesity due to excess calories Other and unspecified hyperlipidemia Chronic heart failure with preserved ejection fraction (HFpEF) Anemia Thrombocytosis Pulmonary hypertension Ischemic stroke Paroxysmal atrial fibrillation Atherosclerotic cardiovascular disease Hospital discharge follow-up Thrombus Urge urinary incontinence Iron deficiency anemia Pure hypercholesterolemia Essential hypertension Diabetes mellitus Lumbar degenerative disc disease Surgical History S/P cardiac pacemaker procedure S/P insertion of spinal cord stimulator H/O colonoscopy History of Mohs micrographic surgery for skin cancer Hx of cervical spine surgery History of partial hysterectomy Hx of cardiac cath Family History Family History Father Rectal cancer Hypertension Arthritis of knee CVD (cardiovascular disease) Mother Hypertension CVD (cardiovascular disease) Myocardial infarction Diabetes Social History Household Members: Spouse Housing: Apartment Are you a primary career advisor to a significant other at home: No Alcohol intake: never Patient Tobacco Use Status: Former Tobacco user Quit Date: 1993 Tobacco use type: Cigarette Smoked in Last 30 Days: No e-Cigarette/Vaping Use: Never Used Second Hand Smoke Exposure: No Use of substances other than those prescribed or required for medical reasons: No Advance Directives: Yes Advance Directives on File: Yes Advance Directives Date on File: 07/17/20 service: No Current occupational status: retired Current occupation: Lt handed Cognitive needs: Yes (scodor/walker) Hearing needs: No Vision needs: Yes (glasses) Physical Exam ED Vital Signs: Vital Signs - 24 hr 04/04/23 21:12 04/05/23 04:50 04/05/23 09:15 Temperature 97.2 F 97.1 F Pulse Rate 69 69 69 Respiratory Rate 16 16 Blood Pressure 176/73 H 181/75 H 168/76 H Pulse Oximetry 96 Oxygen Delivery Method Room Air Room Air 04/05/23 14:28 04/05/23 16:00 04/05/23 18:28 Temperature 98.4 F 98.0 F 98.6 F Pulse Rate 70 69 74 Respiratory Rate 19 16 16 Blood Pressure 159/72 H 128/65 175/76 H Pulse Oximetry 98 95 96 Oxygen Delivery Method Room Air Room Air Room Air BMI result Body Mass Index 34.5 Course Reevaluation(s) Reevaluation #1: I was asked to discuss results with the patient. Reviewed her workup including imaging of the C-spine and brain. I discussed this with the patient and 3 of her family members. She is complaining of posterior neck pain, headache. Will give lidocaine patch. She has not had labs in approximately 1 week this will order labs for the morning. Time: 18:35 Medications Administered Generic Name Dose Route Start Last Admin Trade Name Freq PRN Reason Stop Dose Admin Acetaminophen 650 mg 03/30/23 22:35 04/04/23 22:03 Acetaminophen 325 Mg Tablet PO 650 mg Q6H PRN Administration Pain (Scale Score 1-3) Acetaminophen/Butalbital/Caffeine 1 tab 03/30/23 22:35 04/05/23 07:54 Butalb/Acetamin/Caff 50/325/40 Tablet PO 1 tab Q4H PRN Administration Headache Atenolol 50 mg 03/31/23 09:00 04/05/23 09:39 Atenolol 50 Mg Tablet PO 50 mg BID SHANON Administration Protocol Atorvastatin Calcium 80 mg 03/31/23 21:00 04/04/23 20:26 Atorvastatin Calcium 80 Mg Tablet PO 80 mg BEDTIME SHANON Administration Baclofen 10 mg 03/30/23 22:35 04/03/23 19:50 Baclofen 10 Mg Tablet PO 10 mg TID PRN Administration muscle spasm Bisacodyl 5 mg 03/31/23 21:00 04/04/23 20:38 Bisacodyl 5 Mg Tablet. PO 5 mg BEDTIME SHANON Administration Clotrimazole 1 appl 03/31/23 09:00 04/05/23 09:57 Clotrimazole 1 % Cream 15 Gm Tube TOPICAL 1 appl BID SHANON Administration Cyanocobalamin 1,000 mcg 03/31/23 09:00 04/05/23 09:40 Cyanocobalamin (Vitamin B-12) 1,000 Mcg Tablet PO 1,000 mcg DAILY SHANON Administration Digoxin 0.125 mg 03/31/23 09:00 04/05/23 09:39 Digoxin 0.125 Mg Tablet PO 0.125 mg DAILY SHANON Administration Ezetimibe 10 mg 03/31/23 09:00 04/05/23 09:39 Ezetimibe 10 Mg Tablet PO 10 mg DAILY SHANON Administration Empagliflozin 25 mg 03/31/23 09:00 04/05/23 09:38 Empagliflozin 25 Mg Tablet PO 25 mg DAILY SHANON Administration Escitalopram Oxalate 20 mg 03/31/23 09:00 04/05/23 09:40 Escitalopram Oxalate 20 Mg Tablet PO 20 mg DAILY SHANON Administration Fenofibrate 160 mg 03/31/23 09:00 04/05/23 09:39 Fenofibrate 160 Mg Tablet PO 160 mg DAILY SHANON Administration Fluticasone Propionate 1 spray 03/31/23 09:00 04/05/23 09:55 Fluticasone Propionate Nasal 16 Gm [place] NOSTRIL-B 1 spray DAILY SHANON Administration Furosemide 40 mg 03/31/23 09:00 04/05/23 09:40 Furosemide 40 Mg Tablet PO 40 mg DAILY SHANON Administration Protocol Gabapentin 400 mg 03/31/23 09:00 04/05/23 09:39 Gabapentin 400 Mg Capsule PO 400 mg BID SHANON Administration Hydroxychloroquine Sulfate 200 mg 03/31/23 09:00 04/05/23 09:39 Hydroxychloroquine Sulfate 200 Mg Tablet PO 200 mg BID SHANON Administration Insulin Glargine 10 unit 03/31/23 21:00 04/04/23 20:23 Insulin Glargine,Hum.Rec.Anlog 100 Unit/Ml 10 Ml Vial SUBCUT 10 unit BEDTIME SHANON Administration Insulin Human Lispro 0 unit 04/01/23 16:30 04/05/23 17:14 Insulin Lispro 100 Unit/Ml 3 Ml Vial SUBCUT Not Given [facility] Protocol Loratadine 10 mg 03/31/23 09:00 04/05/23 09:40 Loratadine 10 Mg Tablet PO 10 mg DAILY SHANON Administration Magnesium Oxide 200 mg 03/31/23 09:00 04/05/23 09:39 Magnesium Oxide 400 Mg Tablet PO 200 mg DAILY SHANON Administration Metformin HCl 1,000 mg 03/31/23 08:00 04/05/23 17:14 Metformin Hcl 1,000 Mg Tablet PO Not Given BIDWM SHANON Mirabegron 50 mg 03/31/23 09:00 04/05/23 09:39 Mirabegron 50 Mg Tab.Er.24h PO 50 mg DAILY SHANON Administration Multivitamins/Vitamin C 1 tab 03/31/23 09:00 04/05/23 09:39 Multivitamin Tablet PO 1 tab DAILY SHANON Administration Nitrofurantoin Macrocrystals 100 mg 04/02/23 21:00 04/05/23 09:40 Nitrofurantoin Monohyd/M-Cryst 100 Mg Capsule PO 100 mg BID SHANON Administration Nystatin 1 appl 03/31/23 09:00 04/05/23 09:47 Nystatin Powder 15 Gm Bottle TOPICAL 1 appl DAILY SHANON Administration Protocol Omeprazole 40 mg 03/31/23 06:30 04/05/23 06:31 Omeprazole 40 Mg Capsule.Dr PO 40 mg DAILY@0630 SHANON Administration Ondansetron HCl 4 mg 03/30/23 22:45 04/05/23 16:46 Ondansetron Odt 4 Mg Tab.Rapdis TRANSLINGU 4 mg Q6H SHANON Administration Polyethylene Glycol 17 gm 03/31/23 09:00 04/05/23 09:51 Polyethylene Glycol 3350 17 Gm Powd.Pack PO 17 gm DAILY SHANON Administration Rivaroxaban 20 mg 03/31/23 17:00 04/05/23 17:04 Rivaroxaban 20 Mg Tablet PO 20 mg DAILY@1700 SHANON Administration Ropinirole HCl 0.5 mg 03/31/23 21:00 04/04/23 20:26 Ropinirole Hcl 0.5 Mg Tablet PO 0.5 mg BEDTIME SHANON Administration Thiamine HCl 100 mg 03/31/23 09:00 04/05/23 09:39 Thiamine Hcl 100 Mg Tablet PO 100 mg DAILY SHANON Administration Triamcinolone Acetonide 1 appl 03/30/23 22:57 04/03/23 08:39 Triamcinolone Acet 0.5 % Cream 15 Gm Tube TOPICAL 1 appl DAILY PRN Administration Rash Discontinued Medications Generic Name Dose Route Start Last Admin Trade Name Freq PRN Reason Stop Dose Admin Sodium Chloride 1,000 mls @ 999 mls/hr 03/30/23 14:45 03/30/23 17:25 Ns IVCONT 03/30/23 15:45 Infused .Q1H1M SHANON Infusion Lidocaine 1 patch 04/03/23 09:10 04/03/23 10:19 Lidocaine 4 % Patch Adh..Patch TRANSDERMA 04/03/23 09:11 1 patch ONCE ONE Administration Protocol Lorazepam 0.5 mg 03/30/23 22:35 04/04/23 22:04 Lorazepam 0.5 Mg Tablet PO 0.5 mg DAILY PRN Administration Anxiety Lorazepam 2 mg 03/31/23 01:25 03/31/23 04:20 Lorazepam 1 Mg Tablet PO 03/31/23 01:26 2 mg ONCE ONE Administration Lorazepam 0.5 mg 04/03/23 09:10 04/03/23 10:18 Lorazepam 0.5 Mg Tablet PO 04/03/23 09:11 0.5 mg ONCE ONE Administration Nitrofurantoin Macrocrystals 100 mg 03/30/23 16:08 03/30/23 17:25 Nitrofurantoin Monohyd/M-Cryst 100 Mg Capsule PO 03/30/23 16:09 100 mg BID ONE Administration Oxycodone HCl 5 mg 03/30/23 22:39 04/04/23 16:18 Oxycodone Hcl Immed Release 5 Mg Tablet PO 5 mg Q6H PRN Administration Pain, Severe (Pain Scale 7-10) Medical Decision Making Lab Data 03/30/23 13:27 03/30/23 13:27 Labs: Lab Results 03/30/23 03/30/23 03/30/23 Range/Units 13:27 15:23 16:34 WBC 9.0 (4.8-10.8) X10*3/uL RBC 4.32 (4.20-5.50) X10*6/uL Hgb 11.6 L (12.0-16.0) g/dl Hct 37.4 (37.0-47.0) % MCV 86.6 (80.0-98.0) fL MCH 26.9 L (27.0-33.0) pg MCHC 31.0 (31.0-35.0) g/dl RDW 16.7 H (11.0-16.0) % Plt Count 330 (160-400) X10*3/uL MPV 9.0 L (9.4-12.3) fL Immature Gran % (Auto) 0.2 (0.0-0.4) % Neut % (Auto) 64.1 (45-73) % Lymph % (Auto) 23.3 (20-40) % [place] % (Auto) 8.8 (2-11) % Eos % (Auto) 2.9 (0-4) % Baso % (Auto) 0.7 (0-2) % Lymph # (Auto) 2.1 (1.2-4.9) X10*3/uL [place] # (Auto) 0.8 (0.1-1.2) X10*3/uL Eos # (Auto) 0.3 (0.0-0.4) X10*3/uL Baso # (Auto) 0.1 (0.0-0.2) X10*3/uL Abs Immat Gran (auto) 0.02 (0.00-0.03) X10*3/uL Absolute Neuts (auto) 5.8 (2.0-8.3) x10*3/uL Absolute Nucleated RBC 0.000 (0.0-0.012) X10*3/uL Nucleated RBC % (auto) 0.0 (0.0-0.2) /100WBC Sodium 134 L (135-145) mmol/L Potassium 4.6 (3.3-5.1) mmol/L Chloride 95 L (96-108) mmol/L Carbon Dioxide 30 H (22-29) mmol/L Anion Gap 14 (12-20) BUN 33 H (9-16) mg/dL Creatinine 1.08 (0.5-1.4) mg/dL Estim Creat Clear Calc 48.2 Estimated GFR 50 POC Glucose (60-115) mg/dL Random Glucose 141 H (60-115) mg/dL Lactic Acid 0.9 (0.5-2.0) mmol/L Calcium 9.4 D (8.4-10.2) mg/dL Total Bilirubin 0.5 (0.0-1.0) mg/dL AST 18 (5-31) U/L ALT 13 (0-31) U/L Alkaline Phosphatase 60 (39-117) U/L Troponin I High Sens 34.3 H D 34.1 H (<3.5-17.0) ng/L B-Natriuretic Peptide 310 H (<100) pg/mL Total Protein 6.4 L (6.5-8.0) g/dL Albumin 3.4 L (3.5-5.0) g/dL Urine Color Yellow Urine Appearance Clear Urine pH 6.0 (5.0-9.0) Ur Specific [place] 1.010 (1.005-1.025) Urine Protein Negative (Neg-Trace) mg/dL Urine Glucose (UA) 500 H (Negative) mg/dL Urine Ketones Negative (Negative) mg/dL Urine Blood Negative (Negative) Urine Nitrite Negative (Negative) Ur Leukocyte Esterase Small (1+) H (Negative) Urine RBC 6-10 H (0-2) /HPF Urine WBC 6-10 H (0-5) /HPF Ur Squamous Epith Cells 3-5 (0-2) /HPF Urine Bacteria 4+ (None Seen) Hyaline Casts 0-2 (0-2) /LPF COVID-19 ([facility]) Negative (Negative) COVID-19 Clin Com See Note Influenza Type A (PCR) NEGATIVE (Negative) Influenza Type B (PCR) NEGATIVE (Negative) RSV RNA Qual (PCR) NEGATIVE (Negative) SARS-CoV-2 RNA (RT-PCR) NEGATIVE (Negative) 03/30/23 03/31/23 04/01/23 Range/Units 22:58 20:36 07:47 WBC (4.8-10.8) X10*3/uL RBC (4.20-5.50) X10*6/uL Hgb (12.0-16.0) g/dl Hct (37.0-47.0) % MCV (80.0-98.0) fL MCH (27.0-33.0) pg MCHC (31.0-35.0) g/dl RDW (11.0-16.0) % Plt Count (160-400) X10*3/uL MPV (9.4-12.3) fL Immature Gran % (Auto) (0.0-0.4) % Neut % (Auto) (45-73) % Lymph % (Auto) (20-40) % [place] % (Auto) (2-11) % Eos % (Auto) (0-4) % Baso % (Auto) (0-2) % Lymph # (Auto) (1.2-4.9) X10*3/uL [place] # (Auto) (0.1-1.2) X10*3/uL Eos # (Auto) (0.0-0.4) X10*3/uL Baso # (Auto) (0.0-0.2) X10*3/uL Abs Immat Gran (auto) (0.00-0.03) X10*3/uL Absolute Neuts (auto) (2.0-8.3) x10*3/uL Absolute Nucleated RBC (0.0-0.012) X10*3/uL Nucleated RBC % (auto) (0.0-0.2) /100WBC Sodium (135-145) mmol/L Potassium (3.3-5.1) mmol/L Chloride (96-108) mmol/L Carbon Dioxide (22-29) mmol/L Anion Gap (12-20) BUN (9-16) mg/dL Creatinine (0.5-1.4) mg/dL Estim Creat Clear Calc Estimated GFR POC Glucose 137 H 197 H 160 H (60-115) mg/dL Random Glucose (60-115) mg/dL Lactic Acid (0.5-2.0) mmol/L Calcium (8.4-10.2) mg/dL Total Bilirubin (0.0-1.0) mg/dL AST (5-31) U/L ALT (0-31) U/L Alkaline Phosphatase (39-117) U/L Troponin I High Sens (<3.5-17.0) ng/L B-Natriuretic Peptide (<100) pg/mL Total Protein (6.5-8.0) g/dL Albumin (3.5-5.0) g/dL Urine Color Urine Appearance Urine pH (5.0-9.0) Ur Specific [place] (1.005-1.025) Urine Protein (Neg-Trace) mg/dL Urine Glucose (UA) (Negative) mg/dL Urine Ketones (Negative) mg/dL Urine Blood (Negative) Urine Nitrite (Negative) Ur Leukocyte Esterase (Negative) Urine RBC (0-2) /HPF Urine WBC (0-5) /HPF Ur Squamous Epith Cells (0-2) /HPF Urine Bacteria (None Seen) Hyaline Casts (0-2) /LPF COVID-19 ([facility]) (Negative) COVID-19 Clin Com Influenza Type A (PCR) (Negative) Influenza Type B (PCR) (Negative) RSV RNA Qual (PCR) (Negative) SARS-CoV-2 RNA (RT-PCR) (Negative) 04/01/23 04/01/23 04/01/23 Range/Units 11:33 16:27 21:17 WBC (4.8-10.8) X10*3/uL RBC (4.20-5.50) X10*6/uL Hgb (12.0-16.0) g/dl Hct (37.0-47.0) % MCV (80.0-98.0) fL MCH (27.0-33.0) pg MCHC (31.0-35.0) g/dl RDW (11.0-16.0) % Plt Count (160-400) X10*3/uL MPV (9.4-12.3) fL Immature Gran % (Auto) (0.0-0.4) % Neut % (Auto) (45-73) % Lymph % (Auto) (20-40) % [place] % (Auto) (2-11) % Eos % (Auto) (0-4) % Baso % (Auto) (0-2) % Lymph # (Auto) (1.2-4.9) X10*3/uL [place] # (Auto) (0.1-1.2) X10*3/uL Eos # (Auto) (0.0-0.4) X10*3/uL Baso # (Auto) (0.0-0.2) X10*3/uL Abs Immat Gran (auto) (0.00-0.03) X10*3/uL Absolute Neuts (auto) (2.0-8.3) x10*3/uL Absolute Nucleated RBC (0.0-0.012) X10*3/uL Nucleated RBC % (auto) (0.0-0.2) /100WBC Sodium (135-145) mmol/L Potassium (3.3-5.1) mmol/L Chloride (96-108) mmol/L Carbon Dioxide (22-29) mmol/L Anion Gap (12-20) BUN (9-16) mg/dL Creatinine (0.5-1.4) mg/dL Estim Creat Clear Calc Estimated GFR POC Glucose 231 H 138 H 152 H (60-115) mg/dL Random Glucose (60-115) mg/dL Lactic Acid (0.5-2.0) mmol/L Calcium (8.4-10.2) mg/dL Total Bilirubin (0.0-1.0) mg/dL AST (5-31) U/L ALT (0-31) U/L Alkaline Phosphatase (39-117) U/L Troponin I High Sens (<3.5-17.0) ng/L B-Natriuretic Peptide (<100) pg/mL Total Protein (6.5-8.0) g/dL Albumin (3.5-5.0) g/dL Urine Color Urine Appearance Urine pH (5.0-9.0) Ur Specific [place] (1.005-1.025) Urine Protein (Neg-Trace) mg/dL Urine Glucose (UA) (Negative) mg/dL Urine Ketones (Negative) mg/dL Urine Blood (Negative) Urine Nitrite (Negative) Ur Leukocyte Esterase (Negative) Urine RBC (0-2) /HPF Urine WBC (0-5) /HPF Ur Squamous Epith Cells (0-2) /HPF Urine Bacteria (None Seen) Hyaline Casts (0-2) /LPF COVID-19 ([facility]) (Negative) COVID-19 Clin Com Influenza Type A (PCR) (Negative) Influenza Type B (PCR) (Negative) RSV RNA Qual (PCR) (Negative) SARS-CoV-2 RNA (RT-PCR) (Negative) 04/02/23 04/02/23 04/02/23 Range/Units 07:20 11:34 16:22 WBC (4.8-10.8) X10*3/uL RBC (4.20-5.50) X10*6/uL Hgb (12.0-16.0) g/dl Hct (37.0-47.0) % MCV (80.0-98.0) fL MCH (27.0-33.0) pg MCHC (31.0-35.0) g/dl RDW (11.0-16.0) % Plt Count (160-400) X10*3/uL MPV (9.4-12.3) fL Immature Gran % (Auto) (0.0-0.4) % Neut % (Auto) (45-73) % Lymph % (Auto) (20-40) % [place] % (Auto) (2-11) % Eos % (Auto) (0-4) % Baso % (Auto) (0-2) % Lymph # (Auto) (1.2-4.9) X10*3/uL [place] # (Auto) (0.1-1.2) X10*3/uL Eos # (Auto) (0.0-0.4) X10*3/uL Baso # (Auto) (0.0-0.2) X10*3/uL Abs Immat Gran (auto) (0.00-0.03) X10*3/uL Absolute Neuts (auto) (2.0-8.3) x10*3/uL Absolute Nucleated RBC (0.0-0.012) X10*3/uL Nucleated RBC % (auto) (0.0-0.2) /100WBC Sodium (135-145) mmol/L Potassium (3.3-5.1) mmol/L Chloride (96-108) mmol/L Carbon Dioxide (22-29) mmol/L Anion Gap (12-20) BUN (9-16) mg/dL Creatinine (0.5-1.4) mg/dL Estim Creat Clear Calc Estimated GFR POC Glucose 149 H 197 H 153 H (60-115) mg/dL Random Glucose (60-115) mg/dL Lactic Acid (0.5-2.0) mmol/L Calcium (8.4-10.2) mg/dL Total Bilirubin (0.0-1.0) mg/dL AST (5-31) U/L ALT (0-31) U/L Alkaline Phosphatase (39-117) U/L Troponin I High Sens (<3.5-17.0) ng/L B-Natriuretic Peptide (<100) pg/mL Total Protein (6.5-8.0) g/dL Albumin (3.5-5.0) g/dL Urine Color Urine Appearance Urine pH (5.0-9.0) Ur Specific [place] (1.005-1.025) Urine Protein (Neg-Trace) mg/dL Urine Glucose (UA) (Negative) mg/dL Urine Ketones (Negative) mg/dL Urine Blood (Negative) Urine Nitrite (Negative) Ur Leukocyte Esterase (Negative) Urine RBC (0-2) /HPF Urine WBC (0-5) /HPF Ur Squamous Epith Cells (0-2) /HPF Urine Bacteria (None Seen) Hyaline Casts (0-2) /LPF COVID-19 ([facility]) (Negative) COVID-19 Clin Com Influenza Type A (PCR) (Negative) Influenza Type B (PCR) (Negative) RSV RNA Qual (PCR) (Negative) SARS-CoV-2 RNA (RT-PCR) (Negative) 04/02/23 04/03/23 04/03/23 Range/Units 20:10 07:08 11:25 WBC (4.8-10.8) X10*3/uL RBC (4.20-5.50) X10*6/uL Hgb (12.0-16.0) g/dl Hct (37.0-47.0) % MCV (80.0-98.0) fL MCH (27.0-33.0) pg MCHC (31.0-35.0) g/dl RDW (11.0-16.0) % Plt Count (160-400) X10*3/uL MPV (9.4-12.3) fL Immature Gran % (Auto) (0.0-0.4) % Neut % (Auto) (45-73) % Lymph % (Auto) (20-40) % [place] % (Auto) (2-11) % Eos % (Auto) (0-4) % Baso % (Auto) (0-2) % Lymph # (Auto) (1.2-4.9) X10*3/uL [place] # (Auto) (0.1-1.2) X10*3/uL Eos # (Auto) (0.0-0.4) X10*3/uL Baso # (Auto) (0.0-0.2) X10*3/uL Abs Immat Gran (auto) (0.00-0.03) X10*3/uL Absolute Neuts (auto) (2.0-8.3) x10*3/uL Absolute Nucleated RBC (0.0-0.012) X10*3/uL Nucleated RBC % (auto) (0.0-0.2) /100WBC Sodium (135-145) mmol/L Potassium (3.3-5.1) mmol/L Chloride (96-108) mmol/L Carbon Dioxide (22-29) mmol/L Anion Gap (12-20) BUN (9-16) mg/dL Creatinine (0.5-1.4) mg/dL Estim Creat Clear Calc Estimated GFR POC Glucose 195 H 136 H 175 H (60-115) mg/dL Random Glucose (60-115) mg/dL Lactic Acid (0.5-2.0) mmol/L Calcium (8.4-10.2) mg/dL Total Bilirubin (0.0-1.0) mg/dL AST (5-31) U/L ALT (0-31) U/L Alkaline Phosphatase (39-117) U/L Troponin I High Sens (<3.5-17.0) ng/L B-Natriuretic Peptide (<100) pg/mL Total Protein (6.5-8.0) g/dL Albumin (3.5-5.0) g/dL Urine Color Urine Appearance Urine pH (5.0-9.0) Ur Specific [place] (1.005-1.025) Urine Protein (Neg-Trace) mg/dL Urine Glucose (UA) (Negative) mg/dL Urine Ketones (Negative) mg/dL Urine Blood (Negative) Urine Nitrite (Negative) Ur Leukocyte Esterase (Negative) Urine RBC (0-2) /HPF Urine WBC (0-5) /HPF Ur Squamous Epith Cells (0-2) /HPF Urine Bacteria (None Seen) Hyaline Casts (0-2) /LPF COVID-19 ([facility]) (Negative) COVID-19 Clin Com Influenza Type A (PCR) (Negative) Influenza Type B (PCR) (Negative) RSV RNA Qual (PCR) (Negative) SARS-CoV-2 RNA (RT-PCR) (Negative) 04/03/23 04/03/23 04/04/23 Range/Units 16:05 19:28 07:29 WBC (4.8-10.8) X10*3/uL RBC (4.20-5.50) X10*6/uL Hgb (12.0-16.0) g/dl Hct (37.0-47.0) % MCV (80.0-98.0) fL MCH (27.0-33.0) pg MCHC (31.0-35.0) g/dl RDW (11.0-16.0) % Plt Count (160-400) X10*3/uL MPV (9.4-12.3) fL Immature Gran % (Auto) (0.0-0.4) % Neut % (Auto) (45-73) % Lymph % (Auto) (20-40) % [place] % (Auto) (2-11) % Eos % (Auto) (0-4) % Baso % (Auto) (0-2) % Lymph # (Auto) (1.2-4.9) X10*3/uL [place] # (Auto) (0.1-1.2) X10*3/uL Eos # (Auto) (0.0-0.4) X10*3/uL Baso # (Auto) (0.0-0.2) X10*3/uL Abs Immat Gran (auto) (0.00-0.03) X10*3/uL Absolute Neuts (auto) (2.0-8.3) x10*3/uL Absolute Nucleated RBC (0.0-0.012) X10*3/uL Nucleated RBC % (auto) (0.0-0.2) /100WBC Sodium (135-145) mmol/L Potassium (3.3-5.1) mmol/L Chloride (96-108) mmol/L Carbon Dioxide (22-29) mmol/L Anion Gap (12-20) BUN (9-16) mg/dL Creatinine (0.5-1.4) mg/dL Estim Creat Clear Calc Estimated GFR POC Glucose 265 H 270 H 121 H (60-115) mg/dL Random Glucose (60-115) mg/dL Lactic Acid (0.5-2.0) mmol/L Calcium (8.4-10.2) mg/dL Total Bilirubin (0.0-1.0) mg/dL AST (5-31) U/L ALT (0-31) U/L Alkaline Phosphatase (39-117) U/L Troponin I High Sens (<3.5-17.0) ng/L B-Natriuretic Peptide (<100) pg/mL Total Protein (6.5-8.0) g/dL Albumin (3.5-5.0) g/dL Urine Color Urine Appearance Urine pH (5.0-9.0) Ur Specific [place] (1.005-1.025) Urine Protein (Neg-Trace) mg/dL Urine Glucose (UA) (Negative) mg/dL Urine Ketones (Negative) mg/dL Urine Blood (Negative) Urine Nitrite (Negative) Ur Leukocyte Esterase (Negative) Urine RBC (0-2) /HPF Urine WBC (0-5) /HPF Ur Squamous Epith Cells (0-2) /HPF Urine Bacteria (None Seen) Hyaline Casts (0-2) /LPF COVID-19 ([facility]) (Negative) COVID-19 Clin Com Influenza Type A (PCR) (Negative) Influenza Type B (PCR) (Negative) RSV RNA Qual (PCR) (Negative) SARS-CoV-2 RNA (RT-PCR) (Negative) 04/04/23 04/04/23 04/04/23 Range/Units 11:33 16:54 20:14 WBC (4.8-10.8) X10*3/uL RBC (4.20-5.50) X10*6/uL Hgb (12.0-16.0) g/dl Hct (37.0-47.0) % MCV (80.0-98.0) fL MCH (27.0-33.0) pg MCHC (31.0-35.0) g/dl RDW (11.0-16.0) % Plt Count (160-400) X10*3/uL MPV (9.4-12.3) fL Immature Gran % (Auto) (0.0-0.4) % Neut % (Auto) (45-73) % Lymph % (Auto) (20-40) % [place] % (Auto) (2-11) % Eos % (Auto) (0-4) % Baso % (Auto) (0-2) % Lymph # (Auto) (1.2-4.9) X10*3/uL [place] # (Auto) (0.1-1.2) X10*3/uL Eos # (Auto) (0.0-0.4) X10*3/uL Baso # (Auto) (0.0-0.2) X10*3/uL Abs Immat Gran (auto) (0.00-0.03) X10*3/uL Absolute Neuts (auto) (2.0-8.3) x10*3/uL Absolute Nucleated RBC (0.0-0.012) X10*3/uL Nucleated RBC % (auto) (0.0-0.2) /100WBC Sodium (135-145) mmol/L Potassium (3.3-5.1) mmol/L Chloride (96-108) mmol/L Carbon Dioxide (22-29) mmol/L Anion Gap (12-20) BUN (9-16) mg/dL Creatinine (0.5-1.4) mg/dL Estim Creat Clear Calc Estimated GFR POC Glucose 184 H 151 H 212 H (60-115) mg/dL Random Glucose (60-115) mg/dL Lactic Acid (0.5-2.0) mmol/L Calcium (8.4-10.2) mg/dL Total Bilirubin (0.0-1.0) mg/dL AST (5-31) U/L ALT (0-31) U/L Alkaline Phosphatase (39-117) U/L Troponin I High Sens (<3.5-17.0) ng/L B-Natriuretic Peptide (<100) pg/mL Total Protein (6.5-8.0) g/dL Albumin (3.5-5.0) g/dL Urine Color Urine Appearance Urine pH (5.0-9.0) Ur Specific [place] (1.005-1.025) Urine Protein (Neg-Trace) mg/dL Urine Glucose (UA) (Negative) mg/dL Urine Ketones (Negative) mg/dL Urine Blood (Negative) Urine Nitrite (Negative) Ur Leukocyte Esterase (Negative) Urine RBC (0-2) /HPF Urine WBC (0-5) /HPF Ur Squamous Epith Cells (0-2) /HPF Urine Bacteria (None Seen) Hyaline Casts (0-2) /LPF COVID-19 ([facility]) (Negative) COVID-19 Clin Com Influenza Type A (PCR) (Negative) Influenza Type B (PCR) (Negative) RSV RNA Qual (PCR) (Negative) SARS-CoV-2 RNA (RT-PCR) (Negative) 04/05/23 04/05/23 04/05/23 Range/Units 07:18 11:36 17:00 WBC (4.8-10.8) X10*3/uL RBC (4.20-5.50) X10*6/uL Hgb (12.0-16.0) g/dl Hct (37.0-47.0) % MCV (80.0-98.0) fL MCH (27.0-33.0) pg MCHC (31.0-35.0) g/dl RDW (11.0-16.0) % Plt Count (160-400) X10*3/uL MPV (9.4-12.3) fL Immature Gran % (Auto) (0.0-0.4) % Neut % (Auto) (45-73) % Lymph % (Auto) (20-40) % [place] % (Auto) (2-11) % Eos % (Auto) (0-4) % Baso % (Auto) (0-2) % Lymph # (Auto) (1.2-4.9) X10*3/uL [place] # (Auto) (0.1-1.2) X10*3/uL Eos # (Auto) (0.0-0.4) X10*3/uL Baso # (Auto) (0.0-0.2) X10*3/uL Abs Immat Gran (auto) (0.00-0.03) X10*3/uL Absolute Neuts (auto) (2.0-8.3) x10*3/uL Absolute Nucleated RBC (0.0-0.012) X10*3/uL Nucleated RBC % (auto) (0.0-0.2) /100WBC Sodium (135-145) mmol/L Potassium (3.3-5.1) mmol/L Chloride (96-108) mmol/L Carbon Dioxide (22-29) mmol/L Anion Gap (12-20) BUN (9-16) mg/dL Creatinine (0.5-1.4) mg/dL Estim Creat Clear Calc Estimated GFR POC Glucose 156 H 190 H 127 H (60-115) mg/dL Random Glucose (60-115) mg/dL Lactic Acid (0.5-2.0) mmol/L Calcium (8.4-10.2) mg/dL Total Bilirubin (0.0-1.0) mg/dL AST (5-31) U/L ALT (0-31) U/L Alkaline Phosphatase (39-117) U/L Troponin I High Sens (<3.5-17.0) ng/L B-Natriuretic Peptide (<100) pg/mL Total Protein (6.5-8.0) g/dL Albumin (3.5-5.0) g/dL Urine Color Urine Appearance Urine pH (5.0-9.0) Ur Specific [place] (1.005-1.025) Urine Protein (Neg-Trace) mg/dL Urine Glucose (UA) (Negative) mg/dL Urine Ketones (Negative) mg/dL Urine Blood (Negative) Urine Nitrite (Negative) Ur Leukocyte Esterase (Negative) Urine RBC (0-2) /HPF Urine WBC (0-5) /HPF Ur Squamous Epith Cells (0-2) /HPF Urine Bacteria (None Seen) Hyaline Casts (0-2) /LPF COVID-19 ([facility]) (Negative) COVID-19 Clin Com Influenza Type A (PCR) (Negative) Influenza Type B (PCR) (Negative) RSV RNA Qual (PCR) (Negative) SARS-CoV-2 RNA (RT-PCR) (Negative) Discharge Plan Discharge Clinical Impression: Weakness Prescriptions: No Action (DME) blood-glucose meter [OneTouch Verio Meter] Misc See Rx Instructions .Route Qty: 1 0RF Rx Instructions: As directed acetaminophen 325 mg tablet 650 mg PO Q6H PRN (Reason: Pain (Scale Score 1-3)) Qty: 60 0RF atenolol 50 mg tablet 50 mg PO BID 90 Days Qty: 180 1RF Protocol: Hold for SBP/HR < HOLD for SBP < : 90 HOLD for HR < : 60 (DME) OneTouch Verio test strips Strip See Rx Instructions .Route Qty: 100 5RF Rx Instructions: Use 1 test strip twice a day cyanocobalamin (vitamin B-12) 1,000 mcg tablet 1,000 mcg PO DAILY 90 Days Qty: 90 3RF docusate sodium [DOK] 100 mg capsule 100 mg PO BID PRN (Reason: constipation) 90 Days Qty: 180 2RF Trulicity 3 mg/0.5 mL pen injector 3 mg subcut QWEEK 90 Days Qty: 6.5 1RF Jardiance 25 mg tablet 25 mg PO DAILY 90 Days Qty: 90 3RF estradiol 0.01 % (0.1 mg/gram) cream 1 appl vaginal 3XW Qty: 42.5 0RF fenofibrate 160 mg tablet 160 mg PO DAILY 90 Days Qty: 90 3RF fluticasone propionate 50 mcg/actuation spray,suspension 1 spray intranasal DAILY 90 Days Qty: 16 3RF Rx Instructions: administer into each nostril furosemide 40 mg tablet 40 mg PO DAILY 30 Days Qty: 30 1RF hydroxychloroquine [Plaquenil] 200 mg tablet 200 mg PO BID Qty: 180 3RF (DME) lancets Misc See Rx Instructions .Route Qty: 100 3RF Rx Instructions: USe 1 lancet once a day ketoconazole 2 % cream 1 appl topical BID 30 Days Qty: 30 0RF loratadine 10 mg tablet 10 mg PO DAILY 90 Days Qty: 90 0RF magnesium 200 mg tablet 200 mg PO DAILY 90 Days Qty: 90 5RF metformin 1,000 mg tablet 1,000 mg PO BIDWM 90 Days Qty: 180 1RF Myrbetriq 50 mg tablet extended release 24 hr 50 mg PO DAILY 90 Days Qty: 90 1RF nystatin 100,000 unit/gram powder 1 appl topical DAILY 15 Days Qty: 60 0RF omeprazole 40 mg capsule,delayed release(DR/EC) 40 mg PO DAILY@0630 90 Days Qty: 90 1RF riboflavin (vitamin B2) 400 mg tablet 400 mg PO DAILY Qty: 30 0RF Xarelto 20 mg tablet 20 mg PO DAILY@1700 90 Days Qty: 90 1RF ropinirole 0.25 mg tablet 0.5 mg PO BEDTIME 90 Days Qty: 180 1RF rosuvastatin [Crestor] 40 mg tablet 40 mg PO BEDTIME 90 Days Qty: 90 1RF sennosides [senna] 8.6 mg tablet 17.2 mg PO BEDTIME PRN (Reason: Constipation) 90 Days Qty: 90 1RF thiamine HCl (vitamin B1) 100 mg tablet 100 mg PO DAILY 90 Days Qty: 90 1RF baclofen 10 mg tablet 10 mg PO TID PRN (Reason: muscle spasm) 30 Days Qty: 90 1RF rraidzizzp-gdalkfrgvqrbn-btuw 50-325-40 mg tablet 1 tab PO Q4H PRN (Reason: Headache) 4 Days Qty: 24 0RF oxycodone 5 mg tablet 5 mg PO Q6H PRN (Reason: pain) 30 Days Qty: 90 0RF betamethasone dipropionate 0.05 % cream 1 appl topical DAILY PRN (Reason: Rash) bisacodyl 5 mg tablet,delayed release (DR/EC) 5 mg PO BEDTIME digoxin 125 mcg (0.125 mg) tablet 125 mcg PO DAILY lorazepam 0.5 mg tablet 0.5 mg PO DAILY PRN (Reason: Anxiety) gabapentin 600 mg tablet 400 mg PO BID meclizine 12.5 mg tablet 12.5 mg PO BID PRN (Reason: Dizziness Or Vertigo) polyethylene glycol 3350 [Miralax] 17 gram/dose powder 17 g PO DAILY multivitamin Tablet 1 tab PO DAILY fesoterodine [Toviaz] 8 mg tablet extended release 24 hr 8 mg PO DAILY ezetimibe [Zetia] 10 mg tablet 10 mg PO DAILY ondansetron HCl 4 mg tablet 4 mg PO Q6H escitalopram oxalate [Lexapro] 10 mg tablet 20 mg PO DAILY insulin degludec [Tresiba FlexTouch U-100] 100 unit/mL (3 mL) insulin pen 15 unit subcut BEDTIME
--- NOTE | 2023-04-05 18:50 | MHC.EDTECH ---
Patient rang and asked for ice water ,was given ,Patient ,son and daughter in law at bedside .
[2023-04-05] MEDS: Lidocaine 4 % Patch ADH..PATCH 1 PATCH TRANSDERMA (19:18)
[2023-04-05] MEDS: Acetaminophen 325 MG TABLET 650 MG PO (19:25)
--- NOTE | 2023-04-05 19:51 | PC.NURSE ---
Addendum entered by Ana Yeboah RN 04/05/23 21:58: pt reassessed for pain, nausea and anxiety, pt reported pain is decreasing, nausea subsided and anxiety decreasing, will cont to monitor Original Note: pt anxious, c/o severe bilateral neck pain, nausea, headache and bilateral knees, PA aware, medicated per MAR
[2023-04-05 20:00] VITALS: BP 183/90; PULSE 69; RESP 16; TEMP 36.5; O2SAT 96
[2023-04-05 20:20] LABS: Glucose, Whole Blood 199 mg/dL (60-115)
--- NOTE | 2023-04-05 20:21 | MHC.EDTECH ---
Patient asked to go back to bed ,sponge bath given ,cream apply to groin and folds also nystain powder ,,Patient stiil very restless ,blood sugar check and blood Pressure check ,pt wanted to set at the side of bed and do exercise ,RN aware
[2023-04-05] MEDS: rOPINIRole HCL 0.5 MG TABLET PO (20:31)
[2023-04-05] MEDS: Insulin Glargine,Hum.rec.anlog 100 UNIT/ML 10 ML VIAL 10 UNIT SUBCUT (20:31)
[2023-04-05] MEDS: LORazepam 0.5 MG TABLET PO (20:32)
[2023-04-05] MEDS: bisacodyL 5 MG TABLET.DR PO (20:32)
[2023-04-05] MEDS: Atorvastatin Calcium 80 MG TABLET PO (20:32)
--- NOTE | 2023-04-05 21:15 | MHC.EDTECH ---
AT 2100 Patient rang to use beside commode ,void ,Dayana care given then back in bed ,Pt talking to her friend on Phone .
[2023-04-06] MEDS: Baclofen 10 MG TABLET PO ×5 (00:55→21:04)
--- NOTE | 2023-04-06 04:47 | PC.NURSE ---
pt assessed, pt sleeping at this time, medication not given at this time
[2023-04-06] MEDS: LORazepam 0.5 MG TABLET PO ×2 (05:51→14:58)
[2023-04-06] MEDS: Omeprazole 40 MG CAPSULE.DR PO ×2 (05:51→05:52)
[2023-04-06] MEDS: Ondansetron ODT 4 MG TAB.RAPDIS TRANSLINGU ×4 (05:53→22:20)
[2023-04-06 06:00] VITALS: BP 164/85; PULSE 78; RESP 16; TEMP 36.7; O2SAT 95
[2023-04-06 06:09] LABS: MANUAL DIFF FLAG NO
--- NOTE | 2023-04-06 06:09 | PC.NURSE ---
pt assessed reported bilateral neck pain, anxiety and nausea, pt only slept 3-4 hours during the night Medicated per JUL. oob to commode with 1 max assist, no stool sample collected, pt has not had a BM during the shift
--- NOTE | 2023-04-06 06:11 | PC.NURSE ---
patient voiced concern over social supports with family, along with anxiety. Patient stated, i need a psychiatrist .
[2023-04-06 06:30] LABS: Alanine Aminotransferase 12 U/L (0-31); Albumin Level 3.8 g/dL (3.5-5.0); Alkaline Phosphatase 62 U/L (39-117); Anion Gap 14 (12-20); Aspartate Amino Transferase 24 U/L (5-31); Bilirubin Total 0.5 mg/dL (0.0-1.0); Blood Urea Nitrogen 14 mg/dL (9-16); Calcium 9.8 mg/dL (8.4-10.2); Carbon Dioxide 29 mmol/L (22-29); Chloride 90 mmol/L (96-108); Creatinine Clr Calc Pharmacy 62.6; Estimated Glomerular Filt Rate > 60; Glucose Random 118 mg/dL (60-115); Potassium 4.2 mmol/L (3.3-5.1); Sodium 129 mmol/L (135-145); Total Protein 7.3 g/dL (6.5-8.0)
[2023-04-06 06:38] LABS: Basophils Absolute Auto 0.1 X10*3/uL (0.0-0.2); Basophils Percent Auto 1.1 % (0-2); Eosinophils Absolute Auto 0.2 X10*3/uL (0.0-0.4); Eosinophils Percent Auto 2.6 % (0-4); Hematocrit 40.6 % (37.0-47.0); Hemoglobin 13.3 g/dl (12.0-16.0); Imm Gran Abs Auto 0.02 X10*3/uL (0.00-0.03); Imm Gran Pct Auto 0.2 % (0.0-0.4); Lymphocytes Absolute Auto 1.9 X10*3/uL (1.2-4.9); Lymphocytes Percent Auto 20.8 % (20-40); Mean Corpuscular HGB Conc 32.8 g/dl (31.0-35.0); Mean Corpuscular Hemoglobin 27.8 pg (27.0-33.0); Mean Corpuscular Volume 84.8 fL (80.0-98.0); Monocytes Percent Auto 10.6 % (2-11); Neutrophils Absolute Auto 5.9 x10*3/uL (2.0-8.3); Neutrophils Percent Auto 64.7 % (45-73); Platelet Count 372 X10*3/uL (160-400); Red Blood Count 4.79 X10*6/uL (4.20-5.50); Red Cell Distribution Width 15.9 % (11.0-16.0); White Blood Count 9.1 X10*3/uL (4.8-10.8)
--- NOTE | 2023-04-06 07:00 | PC.NURSE ---
Assumed care of patient at this time.
[2023-04-06 07:17] LABS: Glucose, Whole Blood 121 mg/dL (60-115)
[2023-04-06] MEDS: atenoloL 50 MG TABLET PO ×2 (08:13→21:04)
[2023-04-06] MEDS: Empagliflozin 25 MG TABLET PO (08:13)
[2023-04-06] MEDS: Multivitamin TABLET 1 TAB PO (08:13)
[2023-04-06] MEDS: Cyanocobalamin (Vitamin B-12) 1,000 MCG TABLET 1000 MCG PO (08:13)
[2023-04-06] MEDS: Thiamine HCL 100 MG TABLET PO (08:13)
[2023-04-06] MEDS: metFORMIN HCl 1,000 MG TABLET 1000 MG PO (08:13)
[2023-04-06] MEDS: Mirabegron 50 MG TAB.ER.24H PO (08:13)
[2023-04-06] MEDS: Gabapentin 400 MG CAPSULE PO ×2 (08:13→21:04)
[2023-04-06] MEDS: Escitalopram Oxalate 20 MG TABLET PO (08:13)
[2023-04-06] MEDS: Digoxin 0.125 MG TABLET PO (08:13)
[2023-04-06] MEDS: Hydroxychloroquine Sulfate 200 MG TABLET PO ×2 (08:13→21:04)
[2023-04-06] MEDS: Fenofibrate 160 MG TABLET PO (08:13)
[2023-04-06] MEDS: Loratadine 10 MG TABLET PO (08:14)
[2023-04-06] MEDS: polyethylene glycoL 3350 17 GM POWD.PACK PO (08:14)
[2023-04-06] MEDS: Ezetimibe 10 MG TABLET PO (08:14)
[2023-04-06] MEDS: Furosemide 40 MG TABLET PO (08:14)
[2023-04-06] MEDS: Nystatin Powder 15 GM BOTTLE 1 APPL TOPICAL (08:17)
[2023-04-06] MEDS: Magnesium Oxide 400 MG TABLET 200 MG PO (08:18)
[2023-04-06] MEDS: Acetaminophen 325 MG TABLET 650 MG PO ×3 (08:20→21:05)
[2023-04-06] MEDS: Clotrimazole 1 % Cream 15 GM TUBE 1 APPL TOPICAL ×2 (08:21→21:06)
[2023-04-06] MEDS: Fluticasone Propionate Nasal 16 GM SPRAY 1 SPRAY NOSTRIL-B (08:22)
[2023-04-06] MEDS: Lidocaine 4 % Patch ADH..PATCH 1 PATCH TRANSDERMA (08:30)
[2023-04-06 11:30] LABS: Glucose, Whole Blood 162 mg/dL (60-115)
[2023-04-06] MEDS: Nitrofurantoin Monohyd/M-Cryst 100 MG CAPSULE PO ×2 (12:12→22:20)
[2023-04-06] MEDS: Insulin Lispro 100 UNIT/ML 3 ML VIAL SUBCUT (12:12)
[2023-04-06] MEDS: Butalb/Acetamin/Caff 50/325/40 TABLET 1 TAB PO ×2 (12:13→18:48)
[2023-04-06 12:35] LABS: CDiff Gene PCR POSITIVE (Negative)
[2023-04-06 13:10] LABS: CDIFF Internal ctrl Dots and bkg OK (V); CDiff Toxin Negative (Negative)
[2023-04-06 14:21] LABS: Adenovirus F 40/41 Not Detected (Not Detect.); Astrovirus Not Detected (Not Detect.); Campylobacter Not Detected (Not Detect.); Cryptosporidium Not Detected (Not Detect.); Cyclospora cayetanensis Not Detected (Not Detect.); E. coli EAEC Not Detected (Not Detect.); E. coli EPEC Not Detected (Not Detect.); E. coli ETEC Not Detected (Not Detect.); E. coli STEC Not Detected (Not Detect.); Entamoeba histolytica Not Detected (Not Detect.); Giardia lamblia Not Detected (Not Detect.); Norovirus GI/GII Not Detected (Not Detect.); Plesiomonas shigelloides Not Detected (Not Detect.); Rotavirus A Not Detected (Not Detect.); Salmonella Not Detected (Not Detect.); Sapovirus Not Detected (Not Detect.); Shigella sp./EIEC Not Detected (Not Detect.); Vibrio Not Detected (Not Detect.); Vibrio Cholerae Not Detected (Not Detect.); Yersinia enterocolitica Not Detected (Not Detect.)
[2023-04-06 14:35] VITALS: BP 156/73; PULSE 69; RESP 20; TEMP 36.3; O2SAT 97
--- NOTE | 2023-04-06 14:40 | PM.IMHP ---
History of Present Illness Date of Service: 04/06/23 Attending physician on admission: [facility] Chief Complaint: loose stool 72-year-old female with pertinent history of insulin-dependent diabetes mellitus, essential hypertension, paroxysmal atrial fibrillation on Xarelto, CAD, mood disorder, HFpEF, history of CVA? who initially presented to the ED on 03/30 for evaluation of malaise and weakness. Has also had current falls. She had a neck injury s/p laminectomy in December and had a prolonged stay at rehab and discharged to home. Her family brought her back to the ED for evaluation of these symptoms and reported no longer able to care for her. On arrival, patient found to have e coli UTI, sensitive to bactrim which she completed 5 day course this morning. She has been boarding in observation awaiting placement to LTC. Has had loose stool, but no watery diarrhea ongoing for about 3 months and cdiff pcr and gi panel were ordered this morning. Tox B gene positive, toxin negative. She has mild diffuse abdominal pain without nausea, vomiting, or anorexia. She is tolerating PO. Vitals stable, afebrile though patient has been hypertensive with bp 156/73 on admission. Pt also reports significant anxiety and depression, frequently stating, I need a psychiatrist or psychologist . Denies SI/HI. She has no leukocytosis. Renal function normal. Has mild hyponatremia 129 with chloride 90, all other lytes normal. Due to ongoing neck pain with recent falls, ct cervical spine had been ordered which showed degenerative changes at multiple levels with wide laminectomy from c3-c6. Head ct negative for any acute intracranial abnormality. CXR negative. Review of Systems Review of Systems: General: No fevers, malaise, unintentional weight loss HEENT: No blurred vision, diplopia. No sore throat, nasal congestion, rhinorrhea, sinus pain, ear pain Cardiovascular: No chest pain, palpitations, or leg edema Respiratory: No shortness of breath, wheezing, cough GI: +abd pain, +loose stool. No nausea, vomiting, watery diarrhea, constipation, melena, hematochezia : No dysuria, hematuria, increased urinary frequency, decreased urinary output MSK: No myalgia, back pain Neuro: No headaches, weakness, paresthesias Skin: No rashes or lesions [facility] Medical History (Updated 04/06/23 @ 15:18 by RIOS Garcia) (HFpEF) heart failure with preserved ejection fraction Mild recurrent major depression Hyperlipidemia LDL goal <70 Post-dural puncture headache PONV (postoperative nausea and vomiting) Positive occult stool blood test [place] Headache Anemia Acute upper GI bleed Diabetic polyneuropathy COVID-19 Thiamine deficiency Hand pain CVA (cerebral vascular accident) Head injury Left shoulder pain Left knee pain Left hip pain Left hand pain Dizziness Diabetic neuropathy Diabetes type 2, uncontrolled Type 2 diabetes mellitus with other diabetic kidney complication Proteinuria Type 2 diabetes mellitus with diabetic polyneuropathy Dyslipidemia Obesity due to excess calories Other and unspecified hyperlipidemia Chronic heart failure with preserved ejection fraction (HFpEF) Anemia Thrombocytosis Pulmonary hypertension Ischemic stroke Paroxysmal atrial fibrillation Atherosclerotic cardiovascular disease Hospital discharge follow-up Thrombus Urge urinary incontinence Iron deficiency anemia Pure hypercholesterolemia Essential hypertension Diabetes mellitus Lumbar degenerative disc disease Family History Father Rectal cancer Hypertension Arthritis of knee CVD (cardiovascular disease) Mother Hypertension CVD (cardiovascular disease) Myocardial infarction Diabetes Surgical History (Updated 04/06/23 @ 15:03 by RIOS Garcia) S/P laminectomy S/P cardiac pacemaker procedure S/P insertion of spinal cord stimulator H/O colonoscopy History of Mohs micrographic surgery for skin cancer Hx of cervical spine surgery History of partial hysterectomy Hx of cardiac cath Household Members: Spouse Housing: Apartment Are you a primary day care teacher to a significant other at home: No Alcohol intake: never Patient Tobacco Use Status: Former Tobacco user Quit Date: 1993 Tobacco use type: Cigarette Smoked in Last 30 Days: No e-Cigarette/Vaping Use: Never Used Second Hand Smoke Exposure: No Use of substances other than those prescribed or required for medical reasons: No Advance Directives: Yes Advance Directives on File: Yes Advance Directives Date on File: 07/17/20 service: No Current occupational status: retired Current occupation: Lt handed Cognitive needs: Yes (scodor/walker) Hearing needs: No Vision needs: Yes (glasses) Meds Allergies Allergy/AdvReac Type Severity Reaction Status Date / Time morphine [Morphine] Allergy Severe ITCHING, Verified 03/26/23 16:46 hives cefdinir Allergy Intermediate hives Verified 03/26/23 16:46 sulfamethoxazole Allergy Intermediate RASH Verified 03/26/23 16:46 trimethoprim Allergy Intermediate RASH Verified 03/26/23 16:46 duloxetine AdvReac Severe altered Verified 03/26/23 16:46 behavior betina AdvReac Mild RUNNY NOSE Verified 03/26/23 16:46 mustard AdvReac Mild RUNNY NOSE Verified 03/26/23 16:46 potato [POTATO] AdvReac Mild ITCHY NOSE Verified 03/26/23 16:46 soybean AdvReac Mild RUNNY NOSE Verified 03/26/23 16:46 cheese AdvReac Intermediate head Uncoded 03/26/23 16:46 congestion Active Medications: Current Medications Acetaminophen (Acetaminophen 325 Mg Tablet) 650 mg PO Q6H PRN PRN Reason: Pain (Scale Score 1-3) Last Admin: 04/06/23 08:20 Dose: 650 mg Acetaminophen (Acetaminophen 325 Mg Tablet) 650 mg PO Q6H PRN PRN Reason: Pain, Mild (Pain Scale 1-3) Acetaminophen/Butalbital/Caffeine (Butalb/Acetamin/Caff 50/325/40 Tablet) 1 tab PO Q4H PRN PRN Reason: Headache Last Admin: 04/06/23 12:13 Dose: 1 tab Atenolol (Atenolol 50 Mg Tablet) 50 mg PO BID [facility]; Protocol Last Admin: 04/06/23 08:13 Dose: 50 mg Atorvastatin Calcium (Atorvastatin Calcium 80 Mg Tablet) 80 mg PO BEDTIME SHANON Last Admin: 04/05/23 20:32 Dose: 80 mg Baclofen (Baclofen 10 Mg Tablet) 10 mg PO TID PRN PRN Reason: muscle spasm Last Admin: 04/06/23 12:14 Dose: 10 mg Bisacodyl (Bisacodyl 5 Mg Tablet.Dr) 5 mg PO BEDTIME SHANON Last Admin: 04/05/23 20:32 Dose: 5 mg Clotrimazole (Clotrimazole 1 % Cream 15 Gm Tube) 1 appl TOPICAL BID SHANON Last Admin: 04/06/23 08:21 Dose: 1 appl Cyanocobalamin (Cyanocobalamin (Vitamin B-12) 1,000 Mcg Tablet) 1,000 mcg PO DAILY [facility] Last Admin: 04/06/23 08:13 Dose: 1,000 mcg Dextrose (Dextrose 50 % 25 Gm/50 Ml Syringe) 25 gm IVPUSH Q15M PRN; Protocol PRN Reason: per Hypoglycemia Standing Ord. Digoxin (Digoxin 0.125 Mg Tablet) 0.125 mg PO DAILY [facility] Last Admin: 04/06/23 08:13 Dose: 0.125 mg Docusate Sodium (Docusate Sodium 100 Mg Capsule) 100 mg PO BID PRN PRN Reason: constipation Ezetimibe (Ezetimibe 10 Mg Tablet) 10 mg PO DAILY [facility] Last Admin: 04/06/23 08:14 Dose: 10 mg Empagliflozin (Empagliflozin 25 Mg Tablet) 25 mg PO DAILY [facility] Last Admin: 04/06/23 08:13 Dose: 25 mg Enoxaparin Sodium (Enoxaparin Sodium 40 Mg/0.4 Ml Syringe) 40 mg SUBCUT Q24H [facility] Escitalopram Oxalate (Escitalopram Oxalate 20 Mg Tablet) 20 mg PO DAILY [facility] Last Admin: 04/06/23 08:13 Dose: 20 mg Fenofibrate (Fenofibrate 160 Mg Tablet) 160 mg PO DAILY [facility] Last Admin: 04/06/23 08:13 Dose: 160 mg Fluticasone Propionate (Fluticasone Propionate Nasal 16 Gm Brooks) 1 spray NOSTRIL-B DAILY [facility] Last Admin: 04/06/23 08:22 Dose: 1 spray Furosemide (Furosemide 40 Mg Tablet) 40 mg PO DAILY [facility]; Protocol Last Admin: 04/06/23 08:14 Dose: 40 mg Gabapentin (Gabapentin 400 Mg Capsule) 400 mg PO BID [facility] Last Admin: 04/06/23 08:13 Dose: 400 mg Glucose (Glucose Gel 15 Gm Gel..Gram.) 15 gm PO Q15M PRN; Protocol PRN Reason: per Hypoglycemia Standing Ord. Hydroxychloroquine Sulfate (Hydroxychloroquine Sulfate 200 Mg Tablet) 200 mg PO BID [facility] Last Admin: 04/06/23 08:13 Dose: 200 mg Insulin Glargine (Insulin Glargine,Hum.Rec.Anlog 100 Unit/Ml 10 Ml Vial) 10 unit SUBCUT BEDTIME [facility] Last Admin: 04/05/23 20:31 Dose: 10 unit Insulin Human Lispro (Insulin Lispro 100 Unit/Ml 3 Ml Vial) 0 unit SUBCUT QIDACHS [facility]; Protocol Last Admin: 04/06/23 12:12 Dose: 2 unit Loratadine (Loratadine 10 Mg Tablet) 10 mg PO DAILY [facility] Last Admin: 04/06/23 08:14 Dose: 10 mg Lorazepam (Lorazepam 0.5 Mg Tablet) 0.5 mg PO Q8H PRN PRN Reason: Anxiety Last Admin: 04/06/23 05:51 Dose: 0.5 mg Magnesium Oxide (Magnesium Oxide 400 Mg Tablet) 200 mg PO DAILY [facility] Last Admin: 04/06/23 08:18 Dose: 200 mg Meclizine HCl (Meclizine Hcl 12.5 Mg Tablet) 12.5 mg PO BID PRN PRN Reason: Dizziness Or Vertigo Metformin HCl (Metformin Hcl 1,000 Mg Tablet) 1,000 mg PO BIDWM [facility] Last Admin: 04/06/23 08:13 Dose: 1,000 mg Mirabegron (Mirabegron 50 Mg Tab.Er.24h) 50 mg PO DAILY [facility] Last Admin: 04/06/23 08:13 Dose: 50 mg Multivitamins/Vitamin C (Multivitamin Tablet) 1 tab PO DAILY [facility] Last Admin: 04/06/23 08:13 Dose: 1 tab Nitrofurantoin Macrocrystals (Nitrofurantoin Monohyd/M-Cryst 100 Mg Capsule) 100 mg PO BID [facility] Last Admin: 04/06/23 12:12 Dose: 100 mg Non-Formulary Medication (Dulaglutide [Trulicity]) 3 mg SUBCUT QWEEK [facility] Non-Formulary Medication (Estradiol) 1 appl VAGINAL 3XW [facility] Non-Formulary Medication (Fesoterodine [Toviaz]) 8 mg PO DAILY [facility] Nystatin (Nystatin Powder 15 Gm Bottle) 1 appl TOPICAL DAILY [facility]; Protocol Last Admin: 04/06/23 08:17 Dose: 1 appl Omeprazole (Omeprazole 40 Mg Capsule.Dr) 40 mg PO DAILY@0630 [facility] Last Admin: 04/06/23 05:52 Dose: 40 mg Ondansetron HCl (Ondansetron Odt 4 Mg Tab.Rapdis) 4 mg TRANSLINGU Q6H [facility] Last Admin: 04/06/23 09:28 Dose: 4 mg Ondansetron HCl (Ondansetron Hcl 4 Mg/2 Ml Vial) 4 mg IVPUSH Q8H PRN PRN Reason: Nausea and Vomiting Polyethylene Glycol (Polyethylene Glycol 3350 17 Gm Powd.Pack) 17 gm PO DAILY [facility] Last Admin: 04/06/23 08:14 Dose: 17 gm Rivaroxaban (Rivaroxaban 20 Mg Tablet) 20 mg PO DAILY@1700 [facility] Last Admin: 04/05/23 17:04 Dose: 20 mg Ropinirole HCl (Ropinirole Hcl 0.5 Mg Tablet) 0.5 mg PO BEDTIME [facility] Last Admin: 04/05/23 20:31 Dose: 0.5 mg Senna (Sennosides 8.6 Mg Tablet) 17.2 mg PO BEDTIME PRN PRN Reason: Constipation Sodium Chloride (0.9 % Sodium Chloride Flush 3 Ml Syringe) 3 ml IVFLUSH QSHIFT [facility] Thiamine HCl (Thiamine Hcl 100 Mg Tablet) 100 mg PO DAILY [facility] Last Admin: 04/06/23 08:13 Dose: 100 mg Triamcinolone Acetonide (Triamcinolone Acet 0.5 % Cream 15 Gm Tube) 1 appl TOPICAL DAILY PRN PRN Reason: Rash Last Admin: 04/03/23 08:39 Dose: 1 appl Home Medications Medication Instructions Recorded Confirmed Last Taken Type betamethasone dipropionate 0.05 % 1 appl topical DAILY PRN Rash 03/26/23 03/30/23 Unknown History topical cream bisacodyl 5 mg tablet,delayed 5 mg PO BEDTIME 03/26/23 03/30/23 Unknown History release digoxin 125 mcg (0.125 mg) tablet 125 mcg PO DAILY 03/26/23 03/30/23 Unknown History escitalopram oxalate 10 mg tablet 20 mg PO DAILY 03/26/23 03/30/23 Unknown History (Lexapro) ezetimibe 10 mg tablet (Zetia) 10 mg PO DAILY 03/26/23 03/30/23 Unknown History fesoterodine 8 mg tablet,extended 8 mg PO DAILY 03/26/23 03/30/23 Unknown History release 24 hr (Toviaz) gabapentin 600 mg tablet 400 mg PO BID 03/26/23 03/30/23 Unknown History insulin degludec 100 unit/mL (3 15 unit subcut BEDTIME 03/26/23 03/30/23 Unknown History mL) subcutaneous pen (Tresiba FlexTouch U-100 insulin) lorazepam 0.5 mg tablet 0.5 mg PO DAILY PRN Anxiety 03/26/23 03/30/23 Unknown History meclizine 12.5 mg tablet 12.5 mg PO BID PRN Dizziness Or 03/26/23 03/30/23 Unknown History Vertigo multivitamin 1 tab PO DAILY 03/26/23 03/30/23 Unknown History ondansetron HCl 4 mg tablet 4 mg PO Q6H 03/26/23 03/30/23 Unknown History polyethylene glycol 3350 17 17 g PO DAILY 03/26/23 03/30/23 Unknown History gram/dose oral powder (Miralax) Physical Exam Vital Signs and Narrative: Vital Signs: Last Vital Signs Temp 98.1 F 04/06/23 06:00 Pulse 78 04/06/23 06:00 Resp 16 04/06/23 06:00 BP 164/85 H 04/06/23 06:00 Pulse Ox 95 04/06/23 06:00 O2 Del Method Room Air 04/06/23 06:00 O2 Flow Rate 1 03/30/23 13:03 BMI result Body Mass Index 34.5 Constitutional - Awake and Alert, No apparent distress Eyes - PERRLA, EOMI Cardiovascular - S1S2, RRR, No edema Respiratory - Normal lung expansion, Normal respiratory effort, No respiratory distress, CTA bilaterally Gastrointestinal - NT / ND; +BS; No rebound or guarding Extremities - no calf tenderness bilaterally, no swelling Skin - Warm/Dry Neurological - Alert & oriented x3 Psychological - Appropriate affect Results Labs 04/06/23 05:59 04/06/23 05:59 Labs: Laboratory Results - last 24 hr 04/05/23 04/05/23 04/06/23 17:00 20:16 05:59 MCV 84.8 MCH 27.8 MCHC 32.8 RDW 15.9 Plt Count 372 MPV 9.0 L Immature Gran % (Auto) 0.2 Neut % (Auto) 64.7 Lymph % (Auto) 20.8 [place] % (Auto) 10.6 Eos % (Auto) 2.6 Baso % (Auto) 1.1 Lymph # (Auto) 1.9 [place] # (Auto) 1.0 Eos # (Auto) 0.2 Baso # (Auto) 0.1 Abs Immat Gran (auto) 0.02 Absolute Neuts (auto) 5.9 Absolute Nucleated RBC 0.000 Nucleated RBC % (auto) 0.0 Anion Gap 14 Estim Creat Clear Calc 62.6 Estimated GFR > 60 POC Glucose 127 H 199 H Random Glucose 118 H Calcium 9.8 Total Bilirubin 0.5 AST 24 ALT 12 Alkaline Phosphatase 62 Total Protein 7.3 Albumin 3.8 Stl C. cayetanensis PCR Stool Rotavirus A PCR Stl Adenov F 40/41 PCR Stool Astrovirus (PCR) Stool Campylobacter PCR Stool Cryptosporidium PCR Stl Sh Tox Pr E STEC PCR Stool E coli O157 PCR Stl Enterotoxigenic E PCR Stool EPEC (PCR) Stool EAEC (PCR) Stl E. histolytica PCR Stool Giardia Lamblia PCR Stl P. shigelloides PCR Stool Salmonella PCR Stool Sapovirus (PCR) Stl Shigella/EIEC PCR St Y.enterocolitica PCR Stool Vibrio (PCR) Stl Vibrio cholerae PCR Stl Norovirus GI/GII PCR C. difficile Tox B Gene C. difficile Toxin A&B C. difficile Interpret 04/06/23 04/06/23 04/06/23 07:14 11:21 11:22 MCV MCH MCHC RDW Plt Count MPV Immature Gran % (Auto) Neut % (Auto) Lymph % (Auto) [place] % (Auto) Eos % (Auto) Baso % (Auto) Lymph # (Auto) [place] # (Auto) Eos # (Auto) Baso # (Auto) Abs Immat Gran (auto) Absolute Neuts (auto) Absolute Nucleated RBC Nucleated RBC % (auto) Anion Gap Estim Creat Clear Calc Estimated GFR POC Glucose 121 H Random Glucose Calcium Total Bilirubin AST ALT Alkaline Phosphatase Total Protein Albumin Stl C. cayetanensis PCR Not Detected Stool Rotavirus A PCR Not Detected Stl Adenov F 40 PCR Not Detected Stool Astrovirus (PCR) Not Detected Stool Campylobacter PCR Not Detected Stool Cryptosporidium PCR Not Detected Stl Sh Tox Pr E STEC PCR Not Detected Stool E coli O157 PCR Not applicable Stl Enterotoxigenic E PCR Not Detected Stool EPEC (PCR) Not Detected Stool EAEC (PCR) Not Detected Stl E. histolytica PCR Not Detected Stool Giardia Lamblia PCR Not Detected Stl P. shigelloides PCR Not Detected Stool Salmonella PCR Not Detected Stool Sapovirus (PCR) Not Detected Stl Shigella/EIEC PCR Not Detected St Y.enterocolitica PCR Not Detected Stool Vibrio (PCR) Not Detected Stl Vibrio cholerae PCR Not Detected Stl Norovirus GI/GII PCR Not Detected C. difficile Tox B Gene POSITIVE A* C. difficile Toxin A&B Negative C. difficile Interpret SEE NOTE 04/06/23 11:24 MCV MCH MCHC RDW Plt Count MPV Immature Gran % (Auto) Neut % (Auto) Lymph % (Auto) [place] % (Auto) Eos % (Auto) Baso % (Auto) Lymph # (Auto) [place] # (Auto) Eos # (Auto) Baso # (Auto) Abs Immat Gran (auto) Absolute Neuts (auto) Absolute Nucleated RBC Nucleated RBC % (auto) Anion Gap Estim Creat Clear Calc Estimated GFR POC Glucose 162 H Random Glucose Calcium Total Bilirubin AST ALT Alkaline Phosphatase Total Protein Albumin Stl C. cayetanensis PCR Stool Rotavirus A PCR Stl Adenov F 40/41 PCR Stool Astrovirus (PCR) Stool Campylobacter PCR Stool Cryptosporidium PCR Stl Sh Tox Pr E STEC PCR Stool E coli O157 PCR Stl Enterotoxigenic E PCR Stool EPEC (PCR) Stool EAEC (PCR) Stl E. histolytica PCR Stool Giardia Lamblia PCR Stl P. shigelloides PCR Stool Salmonella PCR Stool Sapovirus (PCR) Stl Shigella/EIEC PCR St Y.enterocolitica PCR Stool Vibrio (PCR) Stl Vibrio cholerae PCR Stl Norovirus GI/GII PCR C. difficile Tox B Gene C. difficile Toxin A&B C. difficile Interpret Assessment and Plan (1) Clostridium difficile infection: Status: Acute Plan 72-year-old female with pertinent history of insulin-dependent diabetes mellitus, essential hypertension, paroxysmal atrial fibrillation on Xarelto, CAD, mood disorder, HFpEF, history of CVA? to be observed for cdiff. #CDiff -Cdiff tox gene positive, toxin negative -has loose stool, no watery diarrhea. tolerating po -PO dificid -ID consult #Acute hyponatremia -Sodium 139, due to bactrim use -follow bmp #Chronic neck pain -ct negative for acute issues. Recent laminectomy -lidocaine patches, tylenol -oxycodone, home dose #Paroxysmal afib- rate controlled -continue xarelto for ac -continue digoxin, atenolol #HFpEF -no acute exacerbation, euvolemic on exam -continue oral Lasix 40 mg daily, Jardiance # insulin-dependent type 2 diabetes -POC glucose -diabetic diet -dose adjusted basal insulin -Humalog on sliding scale -hold p.o. anti hyperglycemics # hypertension -uncontrolled -continue atenolol, furosemide. Resume losartan -monitor blood pressures # CAD-no anginal chest pain -continue atenolol, statin # mood disorder -continue home meds -reporting worsening anxiety/depression w/p si. Psych consult DVT prophylaxis-on Xarelto Full code Quality Stroke Does the patient have a stroke diagnosis?: No VTE Prior VTE?: No VTE Risk Level:: Medical - moderate - high VTE Device Contraindication: Treatment Not Indicated VTE Drug Contraindication: N/A - Med Ordered
[2023-04-06] MEDS: vancomycin HCL 125 MG CAPSULE PO (14:58)
[2023-04-06] MEDS: Enoxaparin Sodium 40 MG/0.4 ML SYRINGE SUBCUT (15:04)
--- NOTE | 2023-04-06 15:31 | PC.NURSE ---
Reached out to pharmacy, spoke with Graciela (pharmacist). Pharmacy to bring down 2 medications (Cozaar & Dificid) to [facility] for administration. Unavailable in [facility].
[2023-04-06] MEDS: Losartan Potassium 25 MG TABLET PO (16:11)
[2023-04-06] MEDS: Fidaxomicin 200 MG TABLET PO (16:11)
--- NOTE | 2023-04-06 16:41 | PC.NURSE ---
While medicating the patient, patient stated I feel like I'm going crazy in here! I just want to get out of here, and I just feel like I need to get my mental health checked or something because I'm going crazy in here! What can I do to make this feeling go away? Pt medicated with PO Ativan just before 3pm today. Pt's statements passed along to PA Sharif Valdez. Radha'Stewart to speak with patient. Contact precautions remain in place due to C-Diff diagnosis. Pt thankful for this RN's help, listening, and understanding. Awaiting PA to speak to patient. Out of bed to use commode with 1 assist/walker. Medications given with pudding.
[2023-04-06 16:59] LABS: Glucose, Whole Blood 140 mg/dL (60-115)
[2023-04-06] MEDS: Rivaroxaban 20 MG TABLET PO (17:11)
--- NOTE | 2023-04-06 17:12 | PC.NURSE ---
Patient refused Metformin stating I haven't been taking it for a while, and ever since, my gut has been better . Reviewed importance of Metformin, but patient (& at bedside) refuse this medication. Accepted Xarelto. Aware that per EMAR, pt took Metformin this morning as ordered. Provider (José [facility]) notified.
[2023-04-06] MEDS: LORazepam 1 MG TABLET 2 MG PO (18:48)
[2023-04-06] MEDS: rOPINIRole HCL 0.5 MG TABLET PO (21:04)
[2023-04-06] MEDS: Atorvastatin Calcium 80 MG TABLET PO (21:04)
[2023-04-06] MEDS: Insulin Glargine,Hum.rec.anlog 100 UNIT/ML 10 ML VIAL 10 UNIT SUBCUT (21:05)
[2023-04-06] MEDS: Triamcinolone Acet 0.5 % Cream 15 GM TUBE 1 APPL TOPICAL (21:06)
[2023-04-07] MEDS: Fidaxomicin 200 MG TABLET PO ×2 (03:37→14:52)
[2023-04-07] MEDS: Ondansetron ODT 4 MG TAB.RAPDIS TRANSLINGU ×4 (03:43→21:51)
[2023-04-07 03:52] VITALS: BP 147/70; PULSE 70; RESP 16; TEMP 36.5; O2SAT 94
[2023-04-07 06:03] LABS: MANUAL DIFF FLAG NO
[2023-04-07 06:23] LABS: Anion Gap 14 (12-20); Blood Urea Nitrogen 18 mg/dL (9-16); Calcium 9.4 mg/dL (8.4-10.2); Carbon Dioxide 27 mmol/L (22-29); Chloride 89 mmol/L (96-108); Creatinine Clr Calc Pharmacy 54.2; Estimated Glomerular Filt Rate 57; Glucose Random 134 mg/dL (60-115); Sodium 126 mmol/L (135-145)
[2023-04-07 06:25] LABS: Basophils Absolute Auto 0.1 X10*3/uL (0.0-0.2); Basophils Percent Auto 1.1 % (0-2); Eosinophils Absolute Auto 0.2 X10*3/uL (0.0-0.4); Eosinophils Percent Auto 2.5 % (0-4); Hematocrit 40.7 % (37.0-47.0); Hemoglobin 13.4 g/dl (12.0-16.0); Imm Gran Abs Auto 0.04 X10*3/uL (0.00-0.03); Imm Gran Pct Auto 0.5 % (0.0-0.4); Lymphocytes Percent Auto 25.7 % (20-40); Mean Corpuscular HGB Conc 32.9 g/dl (31.0-35.0); Mean Corpuscular Hemoglobin 27.7 pg (27.0-33.0); Mean Corpuscular Volume 84.1 fL (80.0-98.0); Mean Platelet Volume 8.8 fL (9.4-12.3); Monocytes Absolute Auto 0.8 X10*3/uL (0.1-1.2); Monocytes Percent Auto 9.6 % (2-11); Neutrophils Absolute Auto 4.8 x10*3/uL (2.0-8.3); Neutrophils Percent Auto 60.6 % (45-73); Platelet Count 375 X10*3/uL (160-400); Red Blood Count 4.84 X10*6/uL (4.20-5.50); Red Cell Distribution Width 15.9 % (11.0-16.0)
[2023-04-07 07:32] LABS: Glucose, Whole Blood 153 mg/dL (60-115)
[2023-04-07 08:00] VITALS: BP 158/80
[2023-04-07] MEDS: Insulin Lispro 100 UNIT/ML 3 ML VIAL SUBCUT ×3 (09:06→20:20)
[2023-04-07] MEDS: Fenofibrate 160 MG TABLET PO (09:07)
[2023-04-07] MEDS: Multivitamin TABLET 1 TAB PO (09:07)
[2023-04-07] MEDS: Loratadine 10 MG TABLET PO (09:07)
[2023-04-07] MEDS: metFORMIN HCl 1,000 MG TABLET 1000 MG PO (09:07)
[2023-04-07] MEDS: Empagliflozin 25 MG TABLET PO (09:07)
[2023-04-07] MEDS: Ezetimibe 10 MG TABLET PO (09:07)
[2023-04-07] MEDS: atenoloL 50 MG TABLET PO ×2 (09:07→20:19)
[2023-04-07] MEDS: Mirabegron 50 MG TAB.ER.24H PO (09:07)
[2023-04-07] MEDS: Furosemide 40 MG TABLET PO (09:07)
[2023-04-07] MEDS: Nitrofurantoin Monohyd/M-Cryst 100 MG CAPSULE PO (09:07)
[2023-04-07] MEDS: Magnesium Oxide 400 MG TABLET 200 MG PO (09:07)
[2023-04-07] MEDS: polyethylene glycoL 3350 17 GM POWD.PACK PO (09:07)
[2023-04-07] MEDS: Escitalopram Oxalate 20 MG TABLET PO (09:07)
[2023-04-07] MEDS: Cyanocobalamin (Vitamin B-12) 1,000 MCG TABLET 1000 MCG PO (09:08)
[2023-04-07] MEDS: Losartan Potassium 25 MG TABLET PO (09:08)
[2023-04-07] MEDS: Nystatin Powder 15 GM BOTTLE 1 APPL TOPICAL (09:08)
[2023-04-07] MEDS: Hydroxychloroquine Sulfate 200 MG TABLET PO ×2 (09:08→20:18)
[2023-04-07] MEDS: Thiamine HCL 100 MG TABLET PO (09:08)
[2023-04-07] MEDS: Digoxin 0.125 MG TABLET PO (09:08)
[2023-04-07] MEDS: Fluticasone Propionate Nasal 16 GM SPRAY 1 SPRAY NOSTRIL-B (09:08)
[2023-04-07] MEDS: Gabapentin 400 MG CAPSULE PO ×2 (09:08→20:19)
[2023-04-07 09:19] LABS: C Reactive Protein 0.23 mg/dL (< or = 0.50)
[2023-04-07] MEDS: 0.9 % Sodium Chloride Flush 3 ML SYRINGE IVFLUSH (09:24)
[2023-04-07] MEDS: 0.9 % Sodium Chloride 1,000 ML 125 ML IVCONT ×2 (09:24→20:17)
--- NOTE | 2023-04-07 10:19 | P.PNIM_ITS ---
Subjective Subjective Date of Service: 04/07/23 Interval History: c/o ongoing watery diarrhea every few hours c/o headache Review of Systems Review of Systems: Yes all other systems are reviewed and are negative Physical Exam 2 Vital Signs: Vital Signs: Last Vital Signs Temp 97.7 F 04/07/23 03:52 Pulse 70 04/07/23 03:52 Resp 16 04/07/23 03:52 BP 147/70 H 04/07/23 03:52 Pulse Ox 94 04/07/23 03:52 O2 Del Method Room Air 04/07/23 03:52 O2 Flow Rate 1 03/30/23 13:03 BMI result Body Mass Index 34.5 Gen: in no acute distress HEENT: sclera anicteric, moist mucus membranes Neck: supple Lungs: clear to auscultation bilaterally Heart: regular rate and rhythm, no murmurs Abd: soft, non-tender, non-distended Ext: no edema Skin: warm/well-perfused Neuro: alert and oriented x3, no focal findings Psych: appropriate affect Objective Data Active Medications Acetaminophen (Acetaminophen 325 Mg Tablet) 650 mg PO Q6H PRN PRN Reason: Pain (Scale Score 1-3) Last Admin: 04/06/23 21:05 Dose: 650 mg Documented By: KIANA Acetaminophen (Acetaminophen 325 Mg Tablet) 650 mg PO Q6H PRN PRN Reason: Pain, Mild (Pain Scale 1-3) Acetaminophen/Butalbital/Caffeine (Butalb/Acetamin/Caff 50/325/40 Tablet) 1 tab PO Q4H PRN PRN Reason: Headache Last Admin: 04/06/23 18:48 Dose: 1 tab Documented By: KIANA Atenolol (Atenolol 50 Mg Tablet) 50 mg PO BID [facility]; Protocol Last Admin: 04/07/23 09:07 Dose: 50 mg Documented By: SEB Atorvastatin Calcium (Atorvastatin Calcium 80 Mg Tablet) 80 mg PO BEDTIME [facility] Last Admin: 04/06/23 21:04 Dose: 80 mg Documented By: KIANA Baclofen (Baclofen 10 Mg Tablet) 10 mg PO TID PRN PRN Reason: muscle spasm Last Admin: 04/06/23 21:04 Dose: 10 mg Documented By: KIANA Bisacodyl (Bisacodyl 5 Mg Tablet.) 5 mg PO BEDTIME [facility] Last Admin: 04/06/23 21:22 Dose: Not Given Documented By: KIANA Non-Admin Reason: C-Diff/Diarrhea. Held by provider & nurse Clotrimazole (Clotrimazole 1 % Cream 15 Gm Tube) 1 appl TOPICAL BID [facility] Last Admin: 04/07/23 09:12 Dose: Not Given Documented By: SEB Non-Admin Reason: Previously Administered Cyanocobalamin (Cyanocobalamin (Vitamin B-12) 1,000 Mcg Tablet) 1,000 mcg PO DAILY [facility] Last Admin: 04/07/23 09:08 Dose: 1,000 mcg Documented By: SEB Dextrose (Dextrose 50 % 25 Gm/50 Ml Syringe) 25 gm IVPUSH Q15M PRN; Protocol PRN Reason: per Hypoglycemia Standing Ord. Digoxin (Digoxin 0.125 Mg Tablet) 0.125 mg PO DAILY [facility] Last Admin: 04/07/23 09:08 Dose: 0.125 mg Documented By: SEB Docusate Sodium (Docusate Sodium 100 Mg Capsule) 100 mg PO BID PRN PRN Reason: constipation Ezetimibe (Ezetimibe 10 Mg Tablet) 10 mg PO DAILY [facility] Last Admin: 04/07/23 09:07 Dose: 10 mg Documented By: SEB Empagliflozin (Empagliflozin 25 Mg Tablet) 25 mg PO DAILY [facility] Last Admin: 04/07/23 09:07 Dose: 25 mg Documented By: SEB Escitalopram Oxalate (Escitalopram Oxalate 20 Mg Tablet) 20 mg PO DAILY [facility] Last Admin: 04/07/23 09:07 Dose: 20 mg Documented By: SEB Fenofibrate (Fenofibrate 160 Mg Tablet) 160 mg PO DAILY [facility] Last Admin: 04/07/23 09:07 Dose: 160 mg Documented By: SEB Fidaxomicin (Fidaxomicin 200 Mg Tablet) 200 mg PO Q12H [facility] Last Admin: 04/07/23 03:37 Dose: 200 mg Documented By: VLADIMIR Fluticasone Propionate (Fluticasone Propionate Nasal 16 Gm [place]) 1 spray NOSTRIL-B DAILY [facility] Last Admin: 04/07/23 09:08 Dose: 1 spray Documented By: SEB Furosemide (Furosemide 40 Mg Tablet) 40 mg PO DAILY [facility]; Protocol Last Admin: 04/07/23 09:07 Dose: 40 mg Documented By: SEB Gabapentin (Gabapentin 400 Mg Capsule) 400 mg PO BID [facility] Last Admin: 04/07/23 09:08 Dose: 400 mg Documented By: SEB Glucose (Glucose Gel 15 Gm Gel..Gram.) 15 gm PO Q15M PRN; Protocol PRN Reason: per Hypoglycemia Standing Ord. Hydroxychloroquine Sulfate (Hydroxychloroquine Sulfate 200 Mg Tablet) 200 mg PO BID [facility] Last Admin: 04/07/23 09:08 Dose: 200 mg Documented By: SEB Sodium Chloride (Ns) 1,000 mls @ 125 mls/hr IVCONT .Q8H [facility] Last Infusion: 04/07/23 09:31 Dose: 0 mls/hr Documented By: SEB Insulin Glargine (Insulin Glargine,Hum.Rec.Anlog 100 Unit/Ml 10 Ml Vial) 10 unit SUBCUT BEDTIME [facility] Last Admin: 04/06/23 21:05 Dose: 10 unit Documented By: ABLIAJanet Insulin Human Lispro (Insulin Lispro 100 Unit/Ml 3 Ml Vial) 0 unit SUBCUT QIDACHS [facility]; Protocol Last Admin: 04/07/23 09:06 Dose: 2 unit Documented By: SEB Loratadine (Loratadine 10 Mg Tablet) 10 mg PO DAILY [facility] Last Admin: 04/07/23 09:07 Dose: 10 mg Documented By: SEB Lorazepam (Lorazepam 0.5 Mg Tablet) 0.5 mg PO Q8H PRN PRN Reason: Anxiety Last Admin: 04/06/23 14:58 Dose: 0.5 mg Documented By: LAURA-RIVLA Losartan Potassium (Losartan Potassium 25 Mg Tablet) 25 mg PO DAILY [facility]; Protocol Last Admin: 04/07/23 09:08 Dose: 25 mg Documented By: SEB Magnesium Oxide (Magnesium Oxide 400 Mg Tablet) 200 mg PO DAILY [facility] Last Admin: 04/07/23 09:07 Dose: 200 mg Documented By: SEB Meclizine HCl (Meclizine Hcl 12.5 Mg Tablet) 12.5 mg PO BID PRN PRN Reason: Dizziness Or Vertigo Metformin HCl (Metformin Hcl 1,000 Mg Tablet) 1,000 mg PO BIDWM [facility] Last Admin: 04/07/23 09:07 Dose: 1,000 mg Documented By: SEB Mirabegron (Mirabegron 50 Mg Tab.Er.24h) 50 mg PO DAILY [facility] Last Admin: 04/07/23 09:07 Dose: 50 mg Documented By: SEB Multivitamins/Vitamin C (Multivitamin Tablet) 1 tab PO DAILY [facility] Last Admin: 04/07/23 09:07 Dose: 1 tab Documented By: SEB Nitrofurantoin Macrocrystals (Nitrofurantoin Monohyd/M-Cryst 100 Mg Capsule) 100 mg PO BID [facility] Last Admin: 04/07/23 09:07 Dose: 100 mg Documented By: SEB Non-Formulary Medication (Dulaglutide [Trulicity]) 3 mg SUBCUT QWEEK [facility] Non-Formulary Medication (Estradiol) 1 appl VAGINAL 3XW [facility] Non-Formulary Medication (Fesoterodine [Toviaz]) 8 mg PO DAILY [facility] Nystatin (Nystatin Powder 15 Gm Bottle) 1 appl TOPICAL DAILY [facility]; Protocol Last Admin: 04/07/23 09:08 Dose: 1 appl Documented By: SEB Omeprazole (Omeprazole 40 Mg Capsule.Dr) 40 mg PO DAILY@0630 [facility] Last Admin: 04/06/23 05:52 Dose: 40 mg Documented By: TARAH Ondansetron HCl (Ondansetron Odt 4 Mg Tab.Rapdis) 4 mg TRANSLINGU Q6H [facility] Last Admin: 04/07/23 03:43 Dose: 4 mg Documented By: VLADIMIR Ondansetron HCl (Ondansetron Hcl 4 Mg/2 Ml Vial) 4 mg IVPUSH Q8H PRN PRN Reason: Nausea and Vomiting Polyethylene Glycol (Polyethylene Glycol 3350 17 Gm Powd.Pack) 17 gm PO DAILY [facility] Last Admin: 04/07/23 09:07 Dose: 17 gm Documented By: SEB Rivaroxaban (Rivaroxaban 20 Mg Tablet) 20 mg PO DAILY@1700 [facility] Last Admin: 04/06/23 17:11 Dose: 20 mg Documented By: KIANA Ropinirole HCl (Ropinirole Hcl 0.5 Mg Tablet) 0.5 mg PO BEDTIME [facility] Last Admin: 04/06/23 21:04 Dose: 0.5 mg Documented By: KIANA Senna (Sennosides 8.6 Mg Tablet) 17.2 mg PO BEDTIME PRN PRN Reason: Constipation Sodium Chloride (0.9 % Sodium Chloride Flush 3 Ml Syringe) 3 ml IVFLUSH QSHIFT [facility] Last Admin: 04/07/23 09:24 Dose: 3 ml Documented By: SEB Thiamine HCl (Thiamine Hcl 100 Mg Tablet) 100 mg PO DAILY [facility] Last Admin: 04/07/23 09:08 Dose: 100 mg Documented By: SEB Triamcinolone Acetonide (Triamcinolone Acet 0.5 % Cream 15 Gm Tube) 1 appl TOPICAL DAILY PRN PRN Reason: Rash Last Admin: 04/06/23 21:06 Dose: 1 appl Documented By: KIANA Labs 04/07/23 05:53 04/07/23 05:53 Labs: Laboratory Results - last 24 hr 04/06/23 04/06/23 04/06/23 11:21 11:22 11:24 MCV MCH MCHC RDW Plt Count MPV Immature Gran % (Auto) Neut % (Auto) Lymph % (Auto) [place] % (Auto) Eos % (Auto) Baso % (Auto) Lymph # (Auto) [place] # (Auto) Eos # (Auto) Baso # (Auto) Abs Immat Gran (auto) Absolute Neuts (auto) Absolute Nucleated RBC Nucleated RBC % (auto) Anion Gap Estim Creat Clear Calc Estimated GFR POC Glucose 162 H Random Glucose Calcium C-Reactive Protein Stl C. cayetanensis PCR Not Detected Stool Rotavirus A PCR Not Detected Stl Adenov F 40/41 PCR Not Detected Stool Astrovirus (PCR) Not Detected Stool Campylobacter PCR Not Detected Stool Cryptosporidium PCR Not Detected Stl Sh Tox Pr E STEC PCR Not Detected Stool E coli O157 PCR Not applicable Stl Enterotoxigenic E PCR Not Detected Stool EPEC (PCR) Not Detected Stool EAEC (PCR) Not Detected Stl E. histolytica PCR Not Detected Stool Giardia Lamblia PCR Not Detected Stl P. shigelloides PCR Not Detected Stool Salmonella PCR Not Detected Stool Sapovirus (PCR) Not Detected Stl Shigella/EIEC PCR Not Detected St Y.enterocolitica PCR Not Detected Stool Vibrio (PCR) Not Detected Stl Vibrio cholerae PCR Not Detected Stl Norovirus GI/GII PCR Not Detected C. difficile Tox B Gene POSITIVE A* C. difficile Toxin A&B Negative C. difficile Interpret SEE NOTE 04/06/23 04/07/23 04/07/23 16:55 05:53 07:28 MCV 84.1 MCH 27.7 MCHC 32.9 RDW 15.9 Plt Count 375 MPV 8.8 L Immature Gran % (Auto) 0.5 H Neut % (Auto) 60.6 Lymph % (Auto) 25.7 [place] % (Auto) 9.6 Eos % (Auto) 2.5 Baso % (Auto) 1.1 Lymph # (Auto) 2.0 [place] # (Auto) 0.8 Eos # (Auto) 0.2 Baso # (Auto) 0.1 Abs Immat Gran (auto) 0.04 H Absolute Neuts (auto) 4.8 Absolute Nucleated RBC 0.000 Nucleated RBC % (auto) 0.0 Anion Gap 14 Estim Creat Clear Calc 54.2 Estimated GFR 57 POC Glucose 140 H 153 H Random Glucose 134 H Calcium 9.4 C-Reactive Protein 0.23 Stl C. cayetanensis PCR Stool Rotavirus A PCR Stl Adenov F 40/41 PCR Stool Astrovirus (PCR) Stool Campylobacter PCR Stool Cryptosporidium PCR Stl Sh Tox Pr E STEC PCR Stool E coli O157 PCR Stl Enterotoxigenic E PCR Stool EPEC (PCR) Stool EAEC (PCR) Stl E. histolytica PCR Stool Giardia Lamblia PCR Stl P. shigelloides PCR Stool Salmonella PCR Stool Sapovirus (PCR) Stl Shigella/EIEC PCR St Y.enterocolitica PCR Stool Vibrio (PCR) Stl Vibrio cholerae PCR Stl Norovirus GI/GII PCR C. difficile Tox B Gene C. difficile Toxin A&B C. difficile Interpret Assessment and Plan (1) Clostridium difficile infection: Status: Acute Plan d2 72yo F with DM2, HTN, paroxysmal AF on rivaroxaban and s/p PPM, CAD, mood disorder, chronic HFpEF, hx CVA, recent laminectomy in December was awaiting LTC placement; had UTI treated with [id number]-[id number] x5d but then developed Cdiff colitis + hypoNa Cdiff colitis - fidoxamicin d2, ID consult acute hypoNa - appears hypovolemic, will give IV NS, recheck Na at 1500 and again in AM chronic neck pain s/p laminectomy - CT negative for acute issues; continue lidocaine patches, APAP, oxycodone paroxysmal AF, rate-controlled - continue RC with digoxin + atenolol; AC with rivaroxaban chronic HFpEF - continue furosemide, empagliflozin, losartan, atenolol HTN - continue losartan, atenolol, furosemide DM2 - basal and correction-dose lispro, hold MTF CAD - continue atenolol, losartan, atrovastatn HLD - continue atorvastatin, ezetimibe, fenofibrate OAB - continue mirabegron mood disorder - Psychiatry consult for worsening anxiety/depression without SI - continue escitalopram VTE ppx - rivaroxaban Total time managing care of this patient today: 40 minutes. Quality Stroke Does the patient have a stroke diagnosis?: No VTE Prior VTE?: No VTE Risk Level:: Medical - moderate - high VTE Device Contraindication: Treatment Not Indicated VTE Drug Contraindication: N/A - Med Ordered
--- NOTE | 2023-04-07 10:48 | MHC.SL.SWA ---
Speech Pathologist Impression: Risk of Aspiration, Oral Phase Dysphagia Risk of Aspiration Due to: Lethargy Dysphasia Diet Status: No change Liquid Consistency and Strategies for Safe Swallow: Liquid Intake Recommendation: Thin Liquid Intake Strategies: Small Sips Solid Food Consistency: Dietary Recommendations: Chopped/Advanced (NDD3) Additional Modifications to Solid Foods: Pt w/ mild oral phase dysphagia characterized by slowed mastication and presence of oral residuals. Pt was able to clear oral residue with sips of liquid. Pt reports she cannot eat hard foods as it is too difficult for her to chew. She has been tolerating a CHOPPED/ADVANCED diet (NDD3) and THIN liquids, pills WHOLE in PUREE or LIQUID per pt's tolerance. Recommend pt to moisten foods w/ sauces/gravies, take small bites, chew well, alternate with sips of liquid. Further ST intervention no longer warranted as pt appears to be on safest, least restrictive diet textures. Please re-refer with any changes or further concern. Oral Medication Intake: Whole with Puree Please contact the pharmacy regarding appropriate crushable or liquid drug formulations that are available whenever modified delivery is recommended. Compensatory Strategies and Precautions to be Taken for Safe Swallow: Sitting Upright (90 deg) Double Swallow Small Bites and Sips Alternate Liquids/Solids Rate of Ingestion Change Oral Check Avoid Specific Foods Supervision While Eating and Drinking for Safe Swallow: Total Supervision (1:1) Foods to Avoid: Hard to chew solids, sticky foods Swallowing Recommended Treatments: Compens. Strategy Educat. Recommendation for Speech: D/C Set Painter Clinican/Clinical Fellow: No Supervisory Statement: I have reviewed and agree with the student/clinical fellow's documentation: N/A Speech Language Pathologist: Roxane Venegas M.A., CCC-SHEARING MACHINE TENDER
--- NOTE | 2023-04-07 11:09 | P.PNPSI_ITS ---
Subjective Subjective Reason For Visit: CDiff Diagnostics Vital Signs (24Hr): Vital Signs - 24 hr 04/06/23 14:35 04/07/23 03:52 Temperature 97.3 F 97.7 F Pulse Rate 69 70 Respiratory Rate 20 16 Blood Pressure 156/73 H 147/70 H Pulse Oximetry 97 94 Oxygen Delivery Method Room Air Room Air BMI result Body Mass Index 34.5 Labs 04/07/23 05:53 04/07/23 05:53 Labs: Laboratory Results - last 48 hr 04/05/23 04/05/23 04/05/23 11:36 17:00 20:16 WBC RBC Hgb Hct MCV MCH MCHC RDW Plt Count MPV Immature Gran % (Auto) Neut % (Auto) Lymph % (Auto) [place] % (Auto) Eos % (Auto) Baso % (Auto) Lymph # (Auto) [place] # (Auto) Eos # (Auto) Baso # (Auto) Abs Immat Gran (auto) Absolute Neuts (auto) Absolute Nucleated RBC Nucleated RBC % (auto) Sodium Potassium Chloride Carbon Dioxide Anion Gap BUN Creatinine Estim Creat Clear Calc Estimated GFR POC Glucose 190 H 127 H 199 H Random Glucose Calcium Total Bilirubin AST ALT Alkaline Phosphatase C-Reactive Protein Total Protein Albumin Stl C. cayetanensis PCR Stool Rotavirus A PCR Stl Adenov F 40/41 PCR Stool Astrovirus (PCR) Stool Campylobacter PCR Stool Cryptosporidium PCR Stl Sh Tox Pr E STEC PCR Stool E coli O157 PCR Stl Enterotoxigenic E PCR Stool EPEC (PCR) Stool EAEC (PCR) Stl E. histolytica PCR Stool Giardia Lamblia PCR Stl P. shigelloides PCR Stool Salmonella PCR Stool Sapovirus (PCR) Stl Shigella/EIEC PCR St Y.enterocolitica PCR Stool Vibrio (PCR) Stl Vibrio cholerae PCR Stl Norovirus GI/GII PCR C. difficile Tox B Gene C. difficile Toxin A&B C. difficile Interpret 04/06/23 04/06/23 04/06/23 05:59 07:14 11:21 WBC 9.1 RBC 4.79 Hgb 13.3 Hct 40.6 MCV 84.8 MCH 27.8 MCHC 32.8 RDW 15.9 Plt Count 372 MPV 9.0 L Immature Gran % (Auto) 0.2 Neut % (Auto) 64.7 Lymph % (Auto) 20.8 [place] % (Auto) 10.6 Eos % (Auto) 2.6 Baso % (Auto) 1.1 Lymph # (Auto) 1.9 [place] # (Auto) 1.0 Eos # (Auto) 0.2 Baso # (Auto) 0.1 Abs Immat Gran (auto) 0.02 Absolute Neuts (auto) 5.9 Absolute Nucleated RBC 0.000 Nucleated RBC % (auto) 0.0 Sodium 129 L Potassium 4.2 Chloride 90 L Carbon Dioxide 29 Anion Gap 14 BUN 14 Creatinine 0.83 Estim Creat Clear Calc 62.6 Estimated GFR > 60 POC Glucose 121 H Random Glucose 118 H Calcium 9.8 Total Bilirubin 0.5 AST 24 ALT 12 Alkaline Phosphatase 62 C-Reactive Protein Total Protein 7.3 Albumin 3.8 Stl C. cayetanensis PCR Stool Rotavirus A PCR Stl Adenov F PCR Stool Astrovirus (PCR) Stool Campylobacter PCR Stool Cryptosporidium PCR Stl Sh Tox Pr E STEC PCR Stool E coli O157 PCR Stl Enterotoxigenic E PCR Stool EPEC (PCR) Stool EAEC (PCR) Stl E. histolytica PCR Stool Giardia Lamblia PCR Stl P. shigelloides PCR Stool Salmonella PCR Stool Sapovirus (PCR) Stl Shigella/EIEC PCR St Y.enterocolitica PCR Stool Vibrio (PCR) Stl Vibrio cholerae PCR Stl Norovirus GI/GII PCR C. difficile Tox B Gene POSITIVE A* C. difficile Toxin A&B Negative C. difficile Interpret SEE NOTE 04/06/23 04/06/23 04/06/23 11:22 11:24 16:55 WBC RBC Hgb Hct MCV MCH MCHC RDW Plt Count MPV Immature Gran % (Auto) Neut % (Auto) Lymph % (Auto) [place] % (Auto) Eos % (Auto) Baso % (Auto) Lymph # (Auto) [place] # (Auto) Eos # (Auto) Baso # (Auto) Abs Immat Gran (auto) Absolute Neuts (auto) Absolute Nucleated RBC Nucleated RBC % (auto) Sodium Potassium Chloride Carbon Dioxide Anion Gap BUN Creatinine Estim Creat Clear Calc Estimated GFR POC Glucose 162 H 140 H Random Glucose Calcium Total Bilirubin AST ALT Alkaline Phosphatase C-Reactive Protein Total Protein Albumin Stl C. cayetanensis PCR Not Detected Stool Rotavirus A PCR Not Detected Stl Adenov F PCR Not Detected Stool Astrovirus (PCR) Not Detected Stool Campylobacter PCR Not Detected Stool Cryptosporidium PCR Not Detected Stl Sh Tox Pr E STEC PCR Not Detected Stool E coli O157 PCR Not applicable Stl Enterotoxigenic E PCR Not Detected Stool EPEC (PCR) Not Detected Stool EAEC (PCR) Not Detected Stl E. histolytica PCR Not Detected Stool Giardia Lamblia PCR Not Detected Stl P. shigelloides PCR Not Detected Stool Salmonella PCR Not Detected Stool Sapovirus (PCR) Not Detected Stl Shigella/EIEC PCR Not Detected St Y.enterocolitica PCR Not Detected Stool Vibrio (PCR) Not Detected Stl Vibrio cholerae PCR Not Detected Stl Norovirus GI/GII PCR Not Detected C. difficile Tox B Gene C. difficile Toxin A&B C. difficile Interpret 04/07/23 04/07/23 05:53 07:28 WBC 8.0 RBC 4.84 Hgb 13.4 Hct 40.7 MCV 84.1 MCH 27.7 MCHC 32.9 RDW 15.9 Plt Count 375 MPV 8.8 L Immature Gran % (Auto) 0.5 H Neut % (Auto) 60.6 Lymph % (Auto) 25.7 [place] % (Auto) 9.6 Eos % (Auto) 2.5 Baso % (Auto) 1.1 Lymph # (Auto) 2.0 [place] # (Auto) 0.8 Eos # (Auto) 0.2 Baso # (Auto) 0.1 Abs Immat Gran (auto) 0.04 H Absolute Neuts (auto) 4.8 Absolute Nucleated RBC 0.000 Nucleated RBC % (auto) 0.0 Sodium 126 L Potassium 4.0 Chloride 89 L Carbon Dioxide 27 Anion Gap 14 BUN 18 H Creatinine 0.96 Estim Creat Clear Calc 54.2 Estimated GFR 57 POC Glucose 153 H Random Glucose 134 H Calcium 9.4 Total Bilirubin AST ALT Alkaline Phosphatase C-Reactive Protein 0.23 Total Protein Albumin Stl C. cayetanensis PCR Stool Rotavirus A PCR Stl Adenov F 40/41 PCR Stool Astrovirus (PCR) Stool Campylobacter PCR Stool Cryptosporidium PCR Stl Sh Tox Pr E STEC PCR Stool E coli O157 PCR Stl Enterotoxigenic E PCR Stool EPEC (PCR) Stool EAEC (PCR) Stl E. histolytica PCR Stool Giardia Lamblia PCR Stl P. shigelloides PCR Stool Salmonella PCR Stool Sapovirus (PCR) Stl Shigella/EIEC PCR St Y.enterocolitica PCR Stool Vibrio (PCR) Stl Vibrio cholerae PCR Stl Norovirus GI/GII PCR C. difficile Tox B Gene C. difficile Toxin A&B C. difficile Interpret Imaging Radiology Impressions: ITS Impressions Chest X-Ray 03/30/23 14:47 IMPRESSION: No acute cardiopulmonary process. Cervical Spine CT 04/02/23 14:21 IMPRESSION: 1. No acute intracranial process seen. 2. No acute fracture, dislocation or subluxation seen in cervical spine. 3. There are degenerative disc changes with spondylosis C3-C4, C4-C5, C6-C7 and C7-T1 disc levels. Wide laminectomy from C3 through C6 vertebra. Head CT 04/02/23 14:21 IMPRESSION: 1. No acute intracranial process seen. 2. No acute fracture, dislocation or subluxation seen in cervical spine. 3. There are degenerative disc changes with spondylosis C3-C4, C4-C5, C6-C7 and C7-T1 disc levels. Wide laminectomy from C3 through C6 vertebra. Medications Medications Current Medications Acetaminophen (Acetaminophen 325 Mg Tablet) 650 mg PO Q6H PRN PRN Reason: Pain (Scale Score 1-3) Last Admin: 04/06/23 21:05 Dose: 650 mg Acetaminophen (Acetaminophen 325 Mg Tablet) 650 mg PO Q6H PRN PRN Reason: Pain, Mild (Pain Scale 1-3) Acetaminophen/Butalbital/Caffeine (Butalb/Acetamin/Caff 50/325/40 Tablet) 1 tab PO Q4H PRN PRN Reason: Headache Last Admin: 04/06/23 18:48 Dose: 1 tab Atenolol (Atenolol 50 Mg Tablet) 50 mg PO BID SHANON; Protocol Last Admin: 04/07/23 09:07 Dose: 50 mg Atorvastatin Calcium (Atorvastatin Calcium 80 Mg Tablet) 80 mg PO BEDTIME SHANON Last Admin: 04/06/23 21:04 Dose: 80 mg Baclofen (Baclofen 10 Mg Tablet) 10 mg PO TID PRN PRN Reason: muscle spasm Last Admin: 04/06/23 21:04 Dose: 10 mg Bisacodyl (Bisacodyl 5 Mg Tablet.Dr) 5 mg PO BEDTIME SHANON Last Admin: 04/06/23 21:22 Dose: Not Given Clotrimazole (Clotrimazole 1 % Cream 15 Gm Tube) 1 appl TOPICAL BID [facility] [place] Last Admin: 04/07/23 09:12 Dose: Not Given Cyanocobalamin (Cyanocobalamin (Vitamin B-12) 1,000 Mcg Tablet) 1,000 mcg PO DAILY [facility] [place] Last Admin: 04/07/23 09:08 Dose: 1,000 mcg Dextrose (Dextrose 50 % 25 Gm/50 Ml Syringe) 25 gm IVPUSH Q15M PRN; Protocol PRN Reason: per Hypoglycemia Standing Ord. Digoxin (Digoxin 0.125 Mg Tablet) 0.125 mg PO DAILY [facility] [place] Last Admin: 04/07/23 09:08 Dose: 0.125 mg Docusate Sodium (Docusate Sodium 100 Mg Capsule) 100 mg PO BID PRN PRN Reason: constipation Ezetimibe (Ezetimibe 10 Mg Tablet) 10 mg PO DAILY [facility] [place] Last Admin: 04/07/23 09:07 Dose: 10 mg Empagliflozin (Empagliflozin 25 Mg Tablet) 25 mg PO DAILY [facility] [place] Last Admin: 04/07/23 09:07 Dose: 25 mg Escitalopram Oxalate (Escitalopram Oxalate 20 Mg Tablet) 20 mg PO DAILY [facility] [place] Last Admin: 04/07/23 09:07 Dose: 20 mg Fenofibrate (Fenofibrate 160 Mg Tablet) 160 mg PO DAILY [facility] [place] Last Admin: 04/07/23 09:07 Dose: 160 mg Fidaxomicin (Fidaxomicin 200 Mg Tablet) 200 mg PO Q12H [facility] [place] Last Admin: 04/07/23 03:37 Dose: 200 mg Fluticasone Propionate (Fluticasone Propionate Nasal 16 Gm [place]) 1 spray NOSTRIL-B DAILY [facility] [place] Last Admin: 04/07/23 09:08 Dose: 1 spray Furosemide (Furosemide 40 Mg Tablet) 40 mg PO DAILY [facility] [place]; Protocol Last Admin: 04/07/23 09:07 Dose: 40 mg Gabapentin (Gabapentin 400 Mg Capsule) 400 mg PO BID [facility] [place] Last Admin: 04/07/23 09:08 Dose: 400 mg Glucose (Glucose Gel 15 Gm Gel..Gram.) 15 gm PO Q15M PRN; Protocol PRN Reason: per Hypoglycemia Standing Ord. Hydroxychloroquine Sulfate (Hydroxychloroquine Sulfate 200 Mg Tablet) 200 mg PO BID [facility] [place] Last Admin: 04/07/23 09:08 Dose: 200 mg Sodium Chloride (Ns) 1,000 mls @ 125 mls/hr IVCONT .Q8H [facility] [place] Last Infusion: 04/07/23 09:31 Dose: 0 mls/hr Insulin Glargine (Insulin Glargine,Hum.Rec.Anlog 100 Unit/Ml 10 Ml Vial) 10 unit SUBCUT BEDTIME [facility] [place] Last Admin: 04/06/23 21:05 Dose: 10 unit Insulin Human Lispro (Insulin Lispro 100 Unit/Ml 3 Ml Vial) 0 unit SUBCUT QIDACHS [facility] [place]; Protocol Last Admin: 04/07/23 09:06 Dose: 2 unit Loratadine (Loratadine 10 Mg Tablet) 10 mg PO DAILY [facility] [place] Last Admin: 04/07/23 09:07 Dose: 10 mg Lorazepam (Lorazepam 0.5 Mg Tablet) 0.5 mg PO Q8H PRN PRN Reason: Anxiety Last Admin: 04/06/23 14:58 Dose: 0.5 mg Losartan Potassium (Losartan Potassium 25 Mg Tablet) 25 mg PO DAILY [facility] [place]; Protocol Last Admin: 04/07/23 09:08 Dose: 25 mg Magnesium Oxide (Magnesium Oxide 400 Mg Tablet) 200 mg PO DAILY [facility] [place] Last Admin: 04/07/23 09:07 Dose: 200 mg Meclizine HCl (Meclizine Hcl 12.5 Mg Tablet) 12.5 mg PO BID PRN PRN Reason: Dizziness Or Vertigo Mirabegron (Mirabegron 50 Mg Tab.Er.24h) 50 mg PO DAILY [facility] [place] Last Admin: 04/07/23 09:07 Dose: 50 mg Multivitamins/Vitamin C (Multivitamin Tablet) 1 tab PO DAILY [facility] [place] Last Admin: 04/07/23 09:07 Dose: 1 tab Nystatin (Nystatin Powder 15 Gm Bottle) 1 appl TOPICAL DAILY [facility] [place]; Protocol Last Admin: 04/07/23 09:08 Dose: 1 appl Omeprazole (Omeprazole 40 Mg Capsule.Dr) 40 mg PO DAILY@0630 [facility] [place] Last Admin: 04/06/23 05:52 Dose: 40 mg Ondansetron HCl (Ondansetron Odt 4 Mg Tab.Rapdis) 4 mg TRANSLINGU Q6H [facility] [place] Last Admin: 04/07/23 03:43 Dose: 4 mg Ondansetron HCl (Ondansetron Hcl 4 Mg/2 Ml Vial) 4 mg IVPUSH Q8H PRN PRN Reason: Nausea and Vomiting Polyethylene Glycol (Polyethylene Glycol 3350 17 Gm Powd.Pack) 17 gm PO DAILY [facility] [place] Last Admin: 04/07/23 09:07 Dose: 17 gm Rivaroxaban (Rivaroxaban 20 Mg Tablet) 20 mg PO DAILY@1700 [facility] [place] Last Admin: 04/06/23 17:11 Dose: 20 mg Ropinirole HCl (Ropinirole Hcl 0.5 Mg Tablet) 0.5 mg PO BEDTIME [facility] [place] Last Admin: 04/06/23 21:04 Dose: 0.5 mg Senna (Sennosides 8.6 Mg Tablet) 17.2 mg PO BEDTIME PRN PRN Reason: Constipation Sodium Chloride (0.9 % Sodium Chloride Flush 3 Ml Syringe) 3 ml IVFLUSH QSHIFT [facility] [place] Last Admin: 04/07/23 09:24 Dose: 3 ml Thiamine HCl (Thiamine Hcl 100 Mg Tablet) 100 mg PO DAILY [facility] [place] Last Admin: 04/07/23 09:08 Dose: 100 mg Triamcinolone Acetonide (Triamcinolone Acet 0.5 % Cream 15 Gm Tube) 1 appl TOPICAL DAILY PRN PRN Reason: Rash Last Admin: 04/06/23 21:06 Dose: 1 appl Allergies Allergies Allergy/AdvReac Type Severity Reaction Status Date / Time morphine [Morphine] Allergy Severe ITCHING, Verified 03/26/23 16:46 hives cefdinir Allergy Intermediate hives Verified 03/26/23 16:46 sulfamethoxazole Allergy Intermediate RASH Verified 03/26/23 16:46 trimethoprim Allergy Intermediate RASH Verified 03/26/23 16:46 duloxetine AdvReac Severe altered Verified 03/26/23 16:46 behavior betina AdvReac Mild RUNNY NOSE Verified 03/26/23 16:46 mustard AdvReac Mild RUNNY NOSE Verified 03/26/23 16:46 potato [POTATO] AdvReac Mild ITCHY NOSE Verified 03/26/23 16:46 soybean AdvReac Mild RUNNY NOSE Verified 03/26/23 16:46 cheese AdvReac Intermediate head Uncoded 03/26/23 16:46 congestion Assessment & Plan Assessment & Plan (1) Clostridium difficile infection: Status: Acute Code(s): A49.8 - Other bacterial infections of unspecified site Plan d2 72yo F with DM2, HTN, paroxysmal AF on rivaroxaban and s/p PPM, CAD, mood disorder, chronic HFpEF, hx CVA, recent laminectomy in December was awaiting LTC placement; had UTI treated with [id number]-[id number] x5d but then developed Cdiff colitis + hypoNa Cdiff colitis - fidoxamicin d2, ID consult acute hypoNa - appears hypovolemic, will give IV NS, recheck Na at 1500 and again in AM chronic neck pain s/p laminectomy - CT negative for acute issues; continue lidocaine patches, APAP, oxycodone paroxysmal AF, rate-controlled - continue RC with digoxin + atenolol; AC with rivaroxaban chronic HFpEF - continue furosemide, empagliflozin, losartan, atenolol HTN - continue losartan, atenolol, furosemide DM2 - basal and correction-dose lispro, hold MTF CAD - continue atenolol, losartan, atrovastatn HLD - continue atorvastatin, ezetimibe, fenofibrate OAB - continue mirabegron mood disorder - Psychiatry consult for worsening anxiety/depression without SI - continue escitalopram VTE ppx - rivaroxaban Time Spent With Patient Time: Total time managing care of this patient today ____ minutes.
--- NOTE | 2023-04-07 11:09 | PM.PSYCN ---
History of Present Illness Date of Service: 04/07/2023 Chief Complaint: CDiff Reason for Consult: anxiety Requesting physician: Graciela Verdugo Discussed with referring provider: Yes Sources of Information: patient interviewed, chart reviewed and crisis/core team assessment reviewed HPI Narrative: Mrs. Keenan is a 72 year-old woman who was brought due to malaise and weakness. She was awaiting LTP. However, she was found to have cdiff and admitted medically. Psychiatry consulted for anxiety and depression. Pt seen in her room, sitting with notable RLS. She reports increase anxious mood and depression due to severe neck pain and RLS. She reports constant feeling of restlessness needing to pace to alleviate constant tapping of feet. She reports she has been for 29 years and her has told her he can't care for her anymore. She denies suicidal or homicidal ideation although she does report that sometimes she wishes she passes away of natural causes. She denies any plan or intent to harm herself. She denies hx of VH/AH. She does not appear internally preoccupied. She reports long hx of depression which has been treated mostly by PCP with lexapro. She denies hx of suicide attempts. Past Psychiatric History: Past medication trials: cymbalta, lexapro, diazepam Medical Evaluation Reviewed: Yes [facility] Medical History (Updated 04/07/23 @ 16:58 by Betzy Vergara) (HFpEF) heart failure with preserved ejection fraction Mild recurrent major depression Hyperlipidemia LDL goal <70 Post-dural puncture headache PONV (postoperative nausea and vomiting) Positive occult stool blood test [place] Headache Anemia Acute upper GI bleed Diabetic polyneuropathy COVID-19 Thiamine deficiency Hand pain CVA (cerebral vascular accident) Head injury Left shoulder pain Left knee pain Left hip pain Left hand pain Dizziness Diabetic neuropathy Diabetes type 2, uncontrolled Type 2 diabetes mellitus with other diabetic kidney complication Proteinuria Type 2 diabetes mellitus with diabetic polyneuropathy Dyslipidemia Obesity due to excess calories Other and unspecified hyperlipidemia Chronic heart failure with preserved ejection fraction (HFpEF) Anemia Thrombocytosis Pulmonary hypertension Ischemic stroke Paroxysmal atrial fibrillation Atherosclerotic cardiovascular disease Hospital discharge follow-up Thrombus Urge urinary incontinence Iron deficiency anemia Pure hypercholesterolemia Essential hypertension Diabetes mellitus Lumbar degenerative disc disease Surgical History (Updated 04/06/23 @ 15:03 by RIOS Garcia) S/P laminectomy S/P cardiac pacemaker procedure S/P insertion of spinal cord stimulator H/O colonoscopy History of Mohs micrographic surgery for skin cancer Hx of cervical spine surgery History of partial hysterectomy Hx of cardiac cath Diagnostics Vital Signs (24Hr): Vital Signs - 24 hr 04/06/23 14:35 04/07/23 03:52 Temperature 97.3 F 97.7 F Pulse Rate 69 70 Respiratory Rate 20 16 Blood Pressure 156/73 H 147/70 H Pulse Oximetry 97 94 Oxygen Delivery Method Room Air Room Air BMI result Body Mass Index 34.5 Labs 04/07/23 05:53 04/07/23 15:06 Labs: Laboratory Results - last 48 hr 04/05/23 04/05/23 04/05/23 11:36 17:00 20:16 WBC RBC Hgb Hct MCV MCH MCHC RDW Plt Count MPV Immature Gran % (Auto) Neut % (Auto) Lymph % (Auto) Wetzel % (Auto) Eos % (Auto) Baso % (Auto) Lymph # (Auto) [place] # (Auto) Eos # (Auto) Baso # (Auto) Abs Immat Gran (auto) Absolute Neuts (auto) Absolute Nucleated RBC Nucleated RBC % (auto) Sodium Potassium Chloride Carbon Dioxide Anion Gap BUN Creatinine Estim Creat Clear Calc Estimated GFR POC Glucose 190 H 127 H 199 H Random Glucose Calcium Total Bilirubin AST ALT Alkaline Phosphatase C-Reactive Protein Total Protein Albumin Stl C. cayetanensis PCR Stool Rotavirus A PCR Stl Adenov F 40/41 PCR Stool Astrovirus (PCR) Stool Campylobacter PCR Stool Cryptosporidium PCR Stl Sh Tox Pr E STEC PCR Stool E coli O157 PCR Stl Enterotoxigenic E PCR Stool EPEC (PCR) Stool EAEC (PCR) Stl E. histolytica PCR Stool Giardia Lamblia PCR Stl P. shigelloides PCR Stool Salmonella PCR Stool Sapovirus (PCR) Stl Shigella/EIEC PCR St Y.enterocolitica PCR Stool Vibrio (PCR) Stl Vibrio cholerae PCR Stl Norovirus GI/GII PCR C. difficile Tox B Gene C. difficile Toxin A&B C. difficile Interpret 04/06/23 04/06/23 04/06/23 05:59 07:14 11:21 WBC 9.1 RBC 4.79 Hgb 13.3 Hct 40.6 MCV 84.8 MCH 27.8 MCHC 32.8 RDW 15.9 Plt Count 372 MPV 9.0 L Immature Gran % (Auto) 0.2 Neut % (Auto) 64.7 Lymph % (Auto) 20.8 Wetzel % (Auto) 10.6 Eos % (Auto) 2.6 Baso % (Auto) 1.1 Lymph # (Auto) 1.9 Wetzel # (Auto) 1.0 Eos # (Auto) 0.2 Baso # (Auto) 0.1 Abs Immat Gran (auto) 0.02 Absolute Neuts (auto) 5.9 Absolute Nucleated RBC 0.000 Nucleated RBC % (auto) 0.0 Sodium 129 L Potassium 4.2 Chloride 90 L Carbon Dioxide 29 Anion Gap 14 BUN 14 Creatinine 0.83 Estim Creat Clear Calc 62.6 Estimated GFR > 60 POC Glucose 121 H Random Glucose 118 H Calcium 9.8 Total Bilirubin 0.5 AST 24 ALT 12 Alkaline Phosphatase 62 C-Reactive Protein Total Protein 7.3 Albumin 3.8 Stl C. cayetanensis PCR Stool Rotavirus A PCR Stl Adenov F 40/41 PCR Stool Astrovirus (PCR) Stool Campylobacter PCR Stool Cryptosporidium PCR Stl Sh Tox Pr E STEC PCR Stool E coli O157 PCR Stl Enterotoxigenic E PCR Stool EPEC (PCR) Stool EAEC (PCR) Stl E. histolytica PCR Stool Giardia Lamblia PCR Stl P. shigelloides PCR Stool Salmonella PCR Stool Sapovirus (PCR) Stl Shigella/EIEC PCR St Y.enterocolitica PCR Stool Vibrio (PCR) Stl Vibrio cholerae PCR Stl Norovirus GI/GII PCR C. difficile Tox B Gene POSITIVE A* C. difficile Toxin A&B Negative C. difficile Interpret SEE NOTE 04/06/23 04/06/23 04/06/23 11:22 11:24 16:55 WBC RBC Hgb Hct MCV MCH MCHC RDW Plt Count MPV Immature Gran % (Auto) Neut % (Auto) Lymph % (Auto) Wetzel % (Auto) Eos % (Auto) Baso % (Auto) Lymph # (Auto) Wetzel # (Auto) Eos # (Auto) Baso # (Auto) Abs Immat Gran (auto) Absolute Neuts (auto) Absolute Nucleated RBC Nucleated RBC % (auto) Sodium Potassium Chloride Carbon Dioxide Anion Gap BUN Creatinine Estim Creat Clear Calc Estimated GFR POC Glucose 162 H 140 H Random Glucose Calcium Total Bilirubin AST ALT Alkaline Phosphatase C-Reactive Protein Total Protein Albumin Stl C. cayetanensis PCR Not Detected Stool Rotavirus A PCR Not Detected Stl Adenov F 40/ PCR Not Detected Stool Astrovirus (PCR) Not Detected Stool Campylobacter PCR Not Detected Stool Cryptosporidium PCR Not Detected Stl Sh Tox Pr E STEC PCR Not Detected Stool E coli O157 PCR Not applicable Stl Enterotoxigenic E PCR Not Detected Stool EPEC (PCR) Not Detected Stool EAEC (PCR) Not Detected Stl E. histolytica PCR Not Detected Stool Giardia Lamblia PCR Not Detected Stl P. shigelloides PCR Not Detected Stool Salmonella PCR Not Detected Stool Sapovirus (PCR) Not Detected Stl Shigella/EIEC PCR Not Detected St Y.enterocolitica PCR Not Detected Stool Vibrio (PCR) Not Detected Stl Vibrio cholerae PCR Not Detected Stl Norovirus GI/GII PCR Not Detected C. difficile Tox B Gene C. difficile Toxin A&B C. difficile Interpret 04/07/23 04/07/23 05:53 07:28 WBC 8.0 RBC 4.84 Hgb 13.4 Hct 40.7 MCV 84.1 MCH 27.7 MCHC 32.9 RDW 15.9 Plt Count 375 MPV 8.8 L Immature Gran % (Auto) 0.5 H Neut % (Auto) 60.6 Lymph % (Auto) 25.7 Wetzel % (Auto) 9.6 Eos % (Auto) 2.5 Baso % (Auto) 1.1 Lymph # (Auto) 2.0 Wetzel # (Auto) 0.8 Eos # (Auto) 0.2 Baso # (Auto) 0.1 Abs Immat Gran (auto) 0.04 H Absolute Neuts (auto) 4.8 Absolute Nucleated RBC 0.000 Nucleated RBC % (auto) 0.0 Sodium 126 L Potassium 4.0 Chloride 89 L Carbon Dioxide 27 Anion Gap 14 BUN 18 H Creatinine 0.96 Estim Creat Clear Calc 54.2 Estimated GFR 57 POC Glucose 153 H Random Glucose 134 H Calcium 9.4 Total Bilirubin AST ALT Alkaline Phosphatase C-Reactive Protein 0.23 Total Protein Albumin Stl C. cayetanensis PCR Stool Rotavirus A PCR Stl Adenov F 40 PCR Stool Astrovirus (PCR) Stool Campylobacter PCR Stool Cryptosporidium PCR Stl Sh Tox Pr E STEC PCR Stool E coli O157 PCR Stl Enterotoxigenic E PCR Stool EPEC (PCR) Stool EAEC (PCR) Stl E. histolytica PCR Stool Giardia Lamblia PCR Stl P. shigelloides PCR Stool Salmonella PCR Stool Sapovirus (PCR) Stl Shigella/EIEC PCR St Y.enterocolitica PCR Stool Vibrio (PCR) Stl Vibrio cholerae PCR Stl Norovirus GI/GII PCR C. difficile Tox B Gene C. difficile Toxin A&B C. difficile Interpret Imaging Radiology Impressions: ITS Impressions Chest X-Ray 03/30/23 14:47 IMPRESSION: No acute cardiopulmonary process. Cervical Spine CT 04/02/23 14:21 IMPRESSION: 1. No acute intracranial process seen. 2. No acute fracture, dislocation or subluxation seen in cervical spine. 3. There are degenerative disc changes with spondylosis C3-C4, C4-C5, C6-C7 and C7-T1 disc levels. Wide laminectomy from C3 through C6 vertebra. Head CT 04/02/23 14:21 IMPRESSION: 1. No acute intracranial process seen. 2. No acute fracture, dislocation or subluxation seen in cervical spine. 3. There are degenerative disc changes with spondylosis C3-C4, C4-C5, C6-C7 and C7-T1 disc levels. Wide laminectomy from C3 through C6 vertebra. Mental Status Exam Mental Status Exam Narrative: Appearance: wearing hospital gown, good hygiene, visibly in discomfort due to neck pain and restless leg syndrome. Behavior: cooperative Psychomotor: constant tapping of feet s/s RLS Speech: clear, normal rate/rhythm/volume, spontaneous TP: linear TC: anxiety and depression worsened by neck pain and RLS Mood: frustrated Affect: congruent SI: denies HI: denies VH/AH: none Delusions: none Insight/judgment: fair x 2. Memory/cog; alert, oriented x 3. not formally tested. may benefit from MOCA. Medications Medications Current Medications Acetaminophen (Acetaminophen 325 Mg Tablet) 650 mg PO Q6H PRN PRN Reason: Pain (Scale Score 1-3) Last Admin: 04/06/23 21:05 Dose: 650 mg Acetaminophen (Acetaminophen 325 Mg Tablet) 650 mg PO Q6H PRN PRN Reason: Pain, Mild (Pain Scale 1-3) Acetaminophen/Butalbital/Caffeine (Butalb/Acetamin/Caff 50/325/40 Tablet) 1 tab PO Q4H PRN PRN Reason: Headache Last Admin: 04/06/23 18:48 Dose: 1 tab Atenolol (Atenolol 50 Mg Tablet) 50 mg PO BID [facility]; Protocol Last Admin: 04/07/23 09:07 Dose: 50 mg Atorvastatin Calcium (Atorvastatin Calcium 80 Mg Tablet) 80 mg PO BEDTIME [facility] Last Admin: 04/06/23 21:04 Dose: 80 mg Baclofen (Baclofen 10 Mg Tablet) 10 mg PO TID PRN PRN Reason: muscle spasm Last Admin: 04/06/23 21:04 Dose: 10 mg Bisacodyl (Bisacodyl 5 Mg Tablet.Dr) 5 mg PO BEDTIME [facility] Last Admin: 04/06/23 21:22 Dose: Not Given Clotrimazole (Clotrimazole 1 % Cream 15 Gm Tube) 1 appl TOPICAL BID [facility] Last Admin: 04/07/23 09:12 Dose: Not Given Cyanocobalamin (Cyanocobalamin (Vitamin B-12) 1,000 Mcg Tablet) 1,000 mcg PO DAILY [facility] Last Admin: 04/07/23 09:08 Dose: 1,000 mcg Dextrose (Dextrose 50 % 25 Gm/50 Ml Syringe) 25 gm IVPUSH Q15M PRN; Protocol PRN Reason: per Hypoglycemia Standing Ord. Digoxin (Digoxin 0.125 Mg Tablet) 0.125 mg PO DAILY [facility] Last Admin: 04/07/23 09:08 Dose: 0.125 mg Docusate Sodium (Docusate Sodium 100 Mg Capsule) 100 mg PO BID PRN PRN Reason: constipation Ezetimibe (Ezetimibe 10 Mg Tablet) 10 mg PO DAILY [facility] Last Admin: 04/07/23 09:07 Dose: 10 mg Empagliflozin (Empagliflozin 25 Mg Tablet) 25 mg PO DAILY [facility] Last Admin: 04/07/23 09:07 Dose: 25 mg Escitalopram Oxalate (Escitalopram Oxalate 20 Mg Tablet) 20 mg PO DAILY [facility] Last Admin: 04/07/23 09:07 Dose: 20 mg Fenofibrate (Fenofibrate 160 Mg Tablet) 160 mg PO DAILY [facility] Last Admin: 04/07/23 09:07 Dose: 160 mg Fidaxomicin (Fidaxomicin 200 Mg Tablet) 200 mg PO Q12H [facility] Last Admin: 04/07/23 03:37 Dose: 200 mg Fluticasone Propionate (Fluticasone Propionate Nasal 16 Gm [place]) 1 spray NOSTRIL-B DAILY [facility] Last Admin: 04/07/23 09:08 Dose: 1 spray Furosemide (Furosemide 40 Mg Tablet) 40 mg PO DAILY [facility]; Protocol Last Admin: 04/07/23 09:07 Dose: 40 mg Gabapentin (Gabapentin 400 Mg Capsule) 400 mg PO BID [facility] Last Admin: 04/07/23 09:08 Dose: 400 mg Glucose (Glucose Gel 15 Gm Gel..Gram.) 15 gm PO Q15M PRN; Protocol PRN Reason: per Hypoglycemia Standing Ord. Hydroxychloroquine Sulfate (Hydroxychloroquine Sulfate 200 Mg Tablet) 200 mg PO BID [facility] Last Admin: 04/07/23 09:08 Dose: 200 mg Sodium Chloride (Ns) 1,000 mls @ 125 mls/hr IVCONT .Q8H [facility] Last Infusion: 04/07/23 09:31 Dose: 0 mls/hr Insulin Glargine (Insulin Glargine,Hum.Rec.Anlog 100 Unit/Ml 10 Ml Vial) 10 unit SUBCUT BEDTIME [facility] Last Admin: 04/06/23 21:05 Dose: 10 unit Insulin Human Lispro (Insulin Lispro 100 Unit/Ml 3 Ml Vial) 0 unit SUBCUT QIDACHS [facility]; Protocol Last Admin: 04/07/23 09:06 Dose: 2 unit Loratadine (Loratadine 10 Mg Tablet) 10 mg PO DAILY [facility] Last Admin: 04/07/23 09:07 Dose: 10 mg Lorazepam (Lorazepam 0.5 Mg Tablet) 0.5 mg PO Q8H PRN PRN Reason: Anxiety Last Admin: 04/06/23 14:58 Dose: 0.5 mg Losartan Potassium (Losartan Potassium 25 Mg Tablet) 25 mg PO DAILY [facility]; Protocol Last Admin: 04/07/23 09:08 Dose: 25 mg Magnesium Oxide (Magnesium Oxide 400 Mg Tablet) 200 mg PO DAILY [facility] Last Admin: 04/07/23 09:07 Dose: 200 mg Meclizine HCl (Meclizine Hcl 12.5 Mg Tablet) 12.5 mg PO BID PRN PRN Reason: Dizziness Or Vertigo Mirabegron (Mirabegron 50 Mg Tab.Er.24h) 50 mg PO DAILY [facility] Last Admin: 04/07/23 09:07 Dose: 50 mg Multivitamins/Vitamin C (Multivitamin Tablet) 1 tab PO DAILY [facility] Last Admin: 04/07/23 09:07 Dose: 1 tab Nystatin (Nystatin Powder 15 Gm Bottle) 1 appl TOPICAL DAILY [facility]; Protocol Last Admin: 04/07/23 09:08 Dose: 1 appl Omeprazole (Omeprazole 40 Mg Capsule.Dr) 40 mg PO DAILY@0630 [facility] Last Admin: 04/06/23 05:52 Dose: 40 mg Ondansetron HCl (Ondansetron Odt 4 Mg Tab.Rapdis) 4 mg TRANSLINGU Q6H [facility] Last Admin: 04/07/23 03:43 Dose: 4 mg Ondansetron HCl (Ondansetron Hcl 4 Mg/2 Ml Vial) 4 mg IVPUSH Q8H PRN PRN Reason: Nausea and Vomiting Polyethylene Glycol (Polyethylene Glycol 3350 17 Gm Powd.Pack) 17 gm PO DAILY [facility] Last Admin: 04/07/23 09:07 Dose: 17 gm Rivaroxaban (Rivaroxaban 20 Mg Tablet) 20 mg PO DAILY@1700 [facility] Last Admin: 04/06/23 17:11 Dose: 20 mg Ropinirole HCl (Ropinirole Hcl 0.5 Mg Tablet) 0.5 mg PO BEDTIME [facility] Last Admin: 04/06/23 21:04 Dose: 0.5 mg Senna (Sennosides 8.6 Mg Tablet) 17.2 mg PO BEDTIME PRN PRN Reason: Constipation Sodium Chloride (0.9 % Sodium Chloride Flush 3 Ml Syringe) 3 ml IVFLUSH QSHIFT [facility] Last Admin: 04/07/23 09:24 Dose: 3 ml Thiamine HCl (Thiamine Hcl 100 Mg Tablet) 100 mg PO DAILY [facility] Last Admin: 04/07/23 09:08 Dose: 100 mg Triamcinolone Acetonide (Triamcinolone Acet 0.5 % Cream 15 Gm Tube) 1 appl TOPICAL DAILY PRN PRN Reason: Rash Last Admin: 04/06/23 21:06 Dose: 1 appl Allergies Allergies Allergy/AdvReac Type Severity Reaction Status Date / Time morphine [Morphine] Allergy Severe ITCHING, Verified 03/26/23 16:46 hives cefdinir Allergy Intermediate hives Verified 03/26/23 16:46 sulfamethoxazole Allergy Intermediate RASH Verified 03/26/23 16:46 trimethoprim Allergy Intermediate RASH Verified 03/26/23 16:46 duloxetine AdvReac Severe altered Verified 03/26/23 16:46 behavior betina AdvReac Mild RUNNY NOSE Verified 11/15/23 16:46 mustard AdvReac Mild RUNNY NOSE Verified 03/26/23 16:46 potato [POTATO] AdvReac Mild ITCHY NOSE Verified 03/26/23 16:46 soybean AdvReac Mild RUNNY NOSE Verified 03/26/23 16:46 cheese AdvReac Intermediate head Uncoded 03/26/23 16:46 congestion Assessment & Plan Assessment & Plan (1) MDD (major depressive disorder), recurrent episode, moderate: Status: Acute Code(s): F33.1 - Major depressive disorder, recurrent, moderate Plan Mrs. Keenan is a 72 year-old woman medically admitted for cdiff. Psych consult for severe anxious/restless mood and depression appears secondary or recently exacerbated by cervical pain and RLS. Pt visibly uncomfortable due to both. Note that RLS do increase restlessness and agitation. We discussed switching lexapro to venlafaxine- I think it will have some added benefits such as some relief in neuropathic pain, less exacerbation in RLS as antidepressants mainly serotonergic and less likely to add to hyponatremia. In terms of hyponatremia- it would be helpful to obtain urine osmolality/sodium (get better sense of mechanism behind it and how psychotropic (and other) medication may have or not impact). She has been receiving ativan which would help RLS and accompanying restless/anxious mood. We could try to schedule clonazepam 0.5mg po BID- although monitor unsteady gait and sedation. PLAN 1. Cross taper lexapro to venlafaxine- lower lexapro to 10mg po daily, start venlafaxine 37.5mg po daily. will continue lowering lexapro and adjusting dose of venlafaxine (can aim initially to 75mg po daily). Monitor hypertension- SBP with venlafaxine. 2. scheduled low dose clonazepam 0.5mg po BID will help with restlessness, anxious mood. d/c ativan to avoid excessive benzodiazepines. Monitor over sedation, unteady gait. 3. will follow up again tomorrow. Total time managing care of this patient today ____ minutes.
[2023-04-07 11:37] VITALS: BP 149/70; PULSE 70; RESP 18; TEMP 36.4; O2SAT 93
[2023-04-07 11:45] LABS: Glucose, Whole Blood 170 mg/dL (60-115)
[2023-04-07 12:57] VITALS: BMI 34.5
--- NOTE | 2023-04-07 13:48 | MHC.CM.PN ---
pt was livng at home w/ with [facility] a v[facility] she is plannong on going to [facility] when dcd she and her hubsnad petersone an attorrney who is assisting with finances
[2023-04-07] MEDS: LORazepam 0.5 MG TABLET PO (14:52)
[2023-04-07] MEDS: Butalb/Acetamin/Caff 50/325/40 TABLET 1 TAB PO ×2 (14:57→20:20)
[2023-04-07 15:28] LABS: Sodium 127 mmol/L (135-145)
[2023-04-07 15:58] VITALS: BP 168/64; PULSE 70; RESP 20; TEMP 36.7; O2SAT 97
[2023-04-07 16:30] LABS: Glucose, Whole Blood 131 mg/dL (60-115)
[2023-04-07] MEDS: clonazePAM 0.5 MG TABLET PO ×2 (17:15→20:19)
[2023-04-07] MEDS: Rivaroxaban 20 MG TABLET PO (17:15)
[2023-04-07 19:53] VITALS: BP 178/80; PULSE 70; RESP 14; TEMP 36.1; O2SAT 99
[2023-04-07 20:02] LABS: Glucose, Whole Blood 202 mg/dL (60-115)
[2023-04-07] MEDS: bisacodyL 5 MG TABLET.DR PO (20:19)
[2023-04-07] MEDS: rOPINIRole HCL 0.5 MG TABLET PO (20:19)
[2023-04-07] MEDS: Atorvastatin Calcium 80 MG TABLET PO (20:19)
[2023-04-07] MEDS: Insulin Glargine,Hum.rec.anlog 100 UNIT/ML 10 ML VIAL 10 UNIT SUBCUT (20:21)
[2023-04-08 02:54] VITALS: BP 122/82; PULSE 70; RESP 16; TEMP 36.3; O2SAT 100
[2023-04-08] MEDS: 0.9 % Sodium Chloride 1,000 ML 125 ML IVCONT (03:28)
[2023-04-08] MEDS: Ondansetron ODT 4 MG TAB.RAPDIS TRANSLINGU ×3 (03:30→17:26)
[2023-04-08] MEDS: Butalb/Acetamin/Caff 50/325/40 TABLET 1 TAB PO ×3 (03:30→15:37)
[2023-04-08] MEDS: Fidaxomicin 200 MG TABLET PO ×2 (03:31→15:37)
[2023-04-08] MEDS: Omeprazole 40 MG CAPSULE.DR PO (05:06)
[2023-04-08 06:49] LABS: Hematocrit 38.4 % (37.0-47.0); Hemoglobin 12.6 g/dl (12.0-16.0); Mean Corpuscular HGB Conc 32.8 g/dl (31.0-35.0); Mean Corpuscular Hemoglobin 27.6 pg (27.0-33.0); Mean Platelet Volume 8.7 fL (9.4-12.3); Platelet Count 350 X10*3/uL (160-400); Red Blood Count 4.57 X10*6/uL (4.20-5.50); Red Cell Distribution Width 15.9 % (11.0-16.0); White Blood Count 8.2 X10*3/uL (4.8-10.8)
[2023-04-08 07:00] LABS: Anion Gap 12 (12-20); Blood Urea Nitrogen 17 mg/dL (9-16); Calcium 9.3 mg/dL (8.4-10.2); Carbon Dioxide 27 mmol/L (22-29); Chloride 96 mmol/L (96-108); Creatinine Clr Calc Pharmacy 73.3; Estimated Glomerular Filt Rate > 60; Glucose Random 117 mg/dL (60-115); Sodium 131 mmol/L (135-145)
--- NOTE | 2023-04-08 07:11 | PC.RT ---
pt refusing to wear cpap for several days. Cpap will be pulled from room. and dc'd
[2023-04-08 07:16] LABS: Glucose, Whole Blood 98 mg/dL (60-115)
[2023-04-08 08:00] VITALS: BP 120/70; PULSE 70; RESP 18; TEMP 36.1; O2SAT 98
[2023-04-08] MEDS: Hydroxychloroquine Sulfate 200 MG TABLET PO ×2 (08:29→20:21)
[2023-04-08] MEDS: Fenofibrate 160 MG TABLET PO (08:29)
[2023-04-08] MEDS: Escitalopram Oxalate 10 MG TABLET PO (08:29)
[2023-04-08] MEDS: Ezetimibe 10 MG TABLET PO (08:29)
[2023-04-08] MEDS: Gabapentin 400 MG CAPSULE PO ×2 (08:29→20:20)
[2023-04-08] MEDS: Magnesium Oxide 400 MG TABLET 200 MG PO (08:29)
[2023-04-08] MEDS: Cyanocobalamin (Vitamin B-12) 1,000 MCG TABLET 1000 MCG PO (08:29)
[2023-04-08] MEDS: Furosemide 40 MG TABLET PO (08:29)
[2023-04-08] MEDS: Loratadine 10 MG TABLET PO (08:30)
[2023-04-08] MEDS: Empagliflozin 25 MG TABLET PO (08:30)
[2023-04-08] MEDS: Venlafaxine HCl ER 37.5 MG CAP.ER.24H PO (08:30)
[2023-04-08] MEDS: Multivitamin TABLET 1 TAB PO (08:30)
[2023-04-08] MEDS: clonazePAM 0.5 MG TABLET PO ×2 (08:30→20:20)
[2023-04-08] MEDS: Thiamine HCL 100 MG TABLET PO (08:30)
[2023-04-08] MEDS: atenoloL 50 MG TABLET PO ×2 (08:30→20:20)
[2023-04-08] MEDS: Mirabegron 50 MG TAB.ER.24H PO (08:30)
[2023-04-08] MEDS: Digoxin 0.125 MG TABLET PO (08:30)
[2023-04-08] MEDS: Losartan Potassium 25 MG TABLET PO (08:30)
--- NOTE | 2023-04-08 09:36 | HO.PM.IMPN ---
Subjective Subjective Date of Service: 04/08/23 Interval History: diarrhea slowing down no abd pain tolerating diet c/o chronic neck pain Review of Systems Review of Systems: Yes all other systems are reviewed and are negative Physical Exam Vital Signs: Vital Signs: Last Vital Signs Temp 96.9 F 04/08/23 08:00 Pulse 70 04/08/23 08:00 Resp 18 04/08/23 08:00 BP 120/70 04/08/23 08:00 Pulse Ox 98 04/08/23 08:00 O2 Del Method Room Air 04/08/23 08:00 O2 Flow Rate 1 03/30/23 13:03 BMI result Body Mass Index Gen: in n o acute distress H EENT: sclera anict juan, moist mucus membranes Neck: mccray pple Lungs: clear to auscultation bi laterally Heart: r egular rate and rh ythm, no murmurs A bd: soft, non-tend er, non-distended Ext: no edema Skin : warm/well-perfus ed Neuro: alert an d oriented x3, no focal findings Psy ch: appropriate af fect 34.5 Objective Data Active Medications Acetaminophen (Acetaminophen 325 Mg Tablet) 650 mg PO Q6H PRN PRN Reason: Pain, Mild (Pain Scale 1-3) Acetaminophen/Butalbital/Caffeine (Butalb/Acetamin/Caff 50/325/40 Tablet) 1 tab PO Q4H PRN PRN Reason: Headache Last Admin: 04/08/23 08:29 Dose: 1 tab Documented By: MARLEN Atenolol (Atenolol 50 Mg Tablet) 50 mg PO BID SHANON; Protocol Last Admin: 04/08/23 08:30 Dose: 50 mg Documented By: MARLEN Atorvastatin Calcium (Atorvastatin Calcium 80 Mg Tablet) 80 mg PO BEDTIME [facility] Last Admin: 04/07/23 20:19 Dose: 80 mg Documented By: SHER Baclofen (Baclofen 10 Mg Tablet) 10 mg PO TID PRN PRN Reason: muscle spasm Last Admin: 04/06/23 21:04 Dose: 10 mg Documented By: KIANA Bisacodyl (Bisacodyl 5 Mg Tablet.) 5 mg PO BEDTIME [facility] Last Admin: 04/07/23 20:19 Dose: 5 mg Documented By: SHER Clonazepam (Clonazepam 0.5 Mg Tablet) 0.5 mg PO BID [facility] Last Admin: 04/08/23 08:30 Dose: 0.5 mg Documented By: MARLEN Clotrimazole (Clotrimazole 1 % Cream 15 Gm Tube) 1 appl TOPICAL BID [facility] Last Admin: 04/08/23 08:15 Dose: Not Given Documented By: MARLEN Non-Admin Reason: Med Not Available Cyanocobalamin (Cyanocobalamin (Vitamin B-12) 1,000 Mcg Tablet) 1,000 mcg PO DAILY [facility] Last Admin: 04/08/23 08:29 Dose: 1,000 mcg Documented By: MARLEN Dextrose (Dextrose 50 % 25 Gm/50 Ml Syringe) 25 gm IVPUSH Q15M PRN; Protocol PRN Reason: per Hypoglycemia Standing Ord. Digoxin (Digoxin 0.125 Mg Tablet) 0.125 mg PO DAILY [facility] Last Admin: 04/08/23 08:30 Dose: 0.125 mg Documented By: MARLEN Docusate Sodium (Docusate Sodium 100 Mg Capsule) 100 mg PO BID PRN PRN Reason: constipation Ezetimibe (Ezetimibe 10 Mg Tablet) 10 mg PO DAILY [facility] Last Admin: 04/08/23 08:29 Dose: 10 mg Documented By: NATALIAEMA Empagliflozin (Empagliflozin 25 Mg Tablet) 25 mg PO DAILY [facility] Last Admin: 04/08/23 08:30 Dose: 25 mg Documented By: NATALIAEMA Escitalopram Oxalate (Escitalopram Oxalate 10 Mg Tablet) 10 mg PO DAILY [facility] Last Admin: 04/08/23 08:29 Dose: 10 mg Documented By: NATALIAEMA Fenofibrate (Fenofibrate 160 Mg Tablet) 160 mg PO DAILY [facility] Last Admin: 04/08/23 08:29 Dose: 160 mg Documented By: NATALIAEMA Fidaxomicin (Fidaxomicin 200 Mg Tablet) 200 mg PO Q12H [facility] Last Admin: 04/08/23 03:31 Dose: 200 mg Documented By: SHER Fluticasone Propionate (Fluticasone Propionate Nasal 16 Gm [place]) 1 spray NOSTRIL-B DAILY [facility] Last Admin: 04/08/23 08:35 Dose: Not Given Documented By: MARLEN Non-Admin Reason: Patient Refused Furosemide (Furosemide 40 Mg Tablet) 40 mg PO DAILY [facility]; Protocol Last Admin: 04/08/23 08:29 Dose: 40 mg Documented By: MARLEN Gabapentin (Gabapentin 400 Mg Capsule) 400 mg PO BID [facility] Last Admin: 04/08/23 08:29 Dose: 400 mg Documented By: MARLEN Glucose (Glucose Gel 15 Gm Gel..Gram.) 15 gm PO Q15M PRN; Protocol PRN Reason: per Hypoglycemia Standing Ord. Hydroxychloroquine Sulfate (Hydroxychloroquine Sulfate 200 Mg Tablet) 200 mg PO BID [facility] Last Admin: 04/08/23 08:29 Dose: 200 mg Documented By: MARLEN Insulin Glargine (Insulin Glargine,Hum.Rec.Anlog 100 Unit/Ml 10 Ml Vial) 10 unit SUBCUT BEDTIME [facility] Last Admin: 04/07/23 20:21 Dose: 10 unit Documented By: SHER Insulin Human Lispro (Insulin Lispro 100 Unit/Ml 3 Ml Vial) 0 unit SUBCUT QIDACHS [facility]; Protocol Last Admin: 04/08/23 07:28 Dose: Not Given Documented By: MARLEN Non-Admin Reason: No Insulin Coverage Loratadine (Loratadine 10 Mg Tablet) 10 mg PO DAILY [facility] Last Admin: 04/08/23 08:30 Dose: 10 mg Documented By: MARLEN Losartan Potassium (Losartan Potassium 25 Mg Tablet) 25 mg PO DAILY [facility]; Protocol Last Admin: 04/08/23 08:30 Dose: 25 mg Documented By: MARLEN Magnesium Oxide (Magnesium Oxide 400 Mg Tablet) 200 mg PO DAILY [facility] Last Admin: 04/08/23 08:29 Dose: 200 mg Documented By: MARLEN Meclizine HCl (Meclizine Hcl 12.5 Mg Tablet) 12.5 mg PO BID PRN PRN Reason: Dizziness Or Vertigo Mirabegron (Mirabegron 50 Mg Tab.Er.24h) 50 mg PO DAILY [facility] Last Admin: 04/08/23 08:30 Dose: 50 mg Documented By: MARLEN Multivitamins/Vitamin C (Multivitamin Tablet) 1 tab PO DAILY [facility] Last Admin: 04/08/23 08:30 Dose: 1 tab Documented By: MARLEN Nystatin (Nystatin Powder 15 Gm Bottle) 1 appl TOPICAL DAILY [facility]; Protocol Last Admin: 04/08/23 08:35 Dose: Not Given Documented By: NATALIAEMA Non-Admin Reason: Patient Refused Omeprazole (Omeprazole 40 Mg Capsule.Dr) 40 mg PO DAILY@0630 [facility] Last Admin: 04/08/23 05:06 Dose: 40 mg Documented By: SHER Ondansetron HCl (Ondansetron Odt 4 Mg Tab.Rapdis) 4 mg TRANSLINGU Q6H [facility] Last Admin: 04/08/23 08:29 Dose: 4 mg Documented By: MARLEN Ondansetron HCl (Ondansetron Hcl 4 Mg/2 Ml Vial) 4 mg IVPUSH Q8H PRN PRN Reason: Nausea and Vomiting Polyethylene Glycol (Polyethylene Glycol 3350 17 Gm Powd.Pack) 17 gm PO DAILY [facility] Last Admin: 04/08/23 08:15 Dose: Not Given Documented By: COTEMA Non-Admin Reason: pt having BMs Rivaroxaban (Rivaroxaban 20 Mg Tablet) 20 mg PO DAILY@1700 [facility] Last Admin: 04/07/23 17:15 Dose: 20 mg Documented By: MARLEN Ropinirole HCl (Ropinirole Hcl 0.5 Mg Tablet) 0.5 mg PO BEDTIME [facility] Last Admin: 04/07/23 20:19 Dose: 0.5 mg Documented By: SHER Senna (Sennosides 8.6 Mg Tablet) 17.2 mg PO BEDTIME PRN PRN Reason: Constipation Sodium Chloride (0.9 % Sodium Chloride Flush 3 Ml Syringe) 3 ml IVFLUSH QSHIFT [facility] Last Admin: 04/08/23 07:28 Dose: Not Given Documented By: COTEMA Non-Admin Reason: IV Running Thiamine HCl (Thiamine Hcl 100 Mg Tablet) 100 mg PO DAILY [facility] Last Admin: 04/08/23 08:30 Dose: 100 mg Documented By: MARLEN Triamcinolone Acetonide (Triamcinolone Acet 0.5 % Cream 15 Gm Tube) 1 appl TOPICAL DAILY PRN PRN Reason: Rash Last Admin: 04/06/23 21:06 Dose: 1 appl Documented By: KIANA Venlafaxine HCl (Venlafaxine Hcl Er 37.5 Mg Cap.Er.24h) 37.5 mg PO DAILY [facility] Last Admin: 11/28/23 08:30 Dose: 37.5 mg Documented By: NATALIAEMA Labs 04/08/23 06:35 04/08/23 06:35 Labs: Laboratory Results - last 24 hr 04/07/23 04/07/23 04/07/23 11:42 15:06 16:26 MCV MCH MCHC RDW Plt Count MPV Absolute Nucleated RBC Nucleated RBC % (auto) Hold Purple Top SEE NOTE Anion Gap Estim Creat Clear Calc Estimated GFR POC Glucose 170 H 131 H Random Glucose Calcium Hold Yellow Top See Note 04/07/23 04/08/23 04/08/23 19:57 06:35 07:08 MCV 84.0 MCH 27.6 MCHC 32.8 RDW 15.9 Plt Count 350 MPV 8.7 L Absolute Nucleated RBC 0.000 Nucleated RBC % (auto) 0.0 Hold Purple Top Anion Gap 12 Estim Creat Clear Calc 73.3 Estimated GFR > 60 POC Glucose 202 H 98 Random Glucose 117 H Calcium 9.3 Hold Yellow Top Assessment and Plan (1) Clostridium difficile infection: Status: Acute Plan d3 72yo F with DM2, HTN, paroxysmal AF on rivaroxaban and s/p PPM, CAD, mood disorder, chronic HFpEF, hx CVA, recent laminectomy in December was awaiting LTC placement; had UTI treated with [id number] x5d but then developed Cdiff colitis + hypoNa Cdiff colitis - fidoxamicin d3, ID consult; improving clinically acute hypoNa - due to hypovolemia from diarrhea; improved after IV NS repletion chronic neck pain s/p laminectomy - CT negative for acute issues; continue lidocaine patches, APAP, oxycodone paroxysmal AF, rate-controlled - continue RC with digoxin + atenolol; AC with rivaroxaban chronic HFpEF - continue furosemide, empagliflozin, losartan, atenolol HTN - continue losartan, atenolol, furosemide DM2 - basal and correction-dose lispro, hold MTF CAD - continue atenolol, losartan, atrovastatn HLD - continue atorvastatin, ezetimibe, fenofibrate OAB - continue mirabegron mood disorder - Psychiatry consulted for worsening anxiety/depression without SI; recommend: 1. Cross taper lexapro to venlafaxine- lower lexapro to 10mg po daily, start venlafaxine 37.5mg po daily. will continue lowering lexapro and adjusting dose of venlafaxine (can aim initially to 75mg po daily). Monitor hypertension- SBP with venlafaxine. 2. scheduled low dose clonazepam 0.5mg po BID will help with restlessness, anxious mood. d/c ativan to avoid excessive benzodiazepines. Monitor over sedation, unteady gait. 3. will follow up again tomorrow. VTE ppx - rivaroxaban dispo - LTC, CM searching In my clinical judgment, the patient requires continued inpatient hospitalization for the following reasons: uncontrolled diarrhea Total time managing care of this patient today: 35 minutes. Quality Stroke Does the patient have a stroke diagnosis?: No VTE Prior VTE?: No VTE Risk Level:: Medical - moderate - high VTE Device Contraindication: Treatment Not Indicated VTE Drug Contraindication: N/A - Med Ordered
[2023-04-08 11:21] LABS: Glucose, Whole Blood 151 mg/dL (60-115)
[2023-04-08] MEDS: Insulin Lispro 100 UNIT/ML 3 ML VIAL SUBCUT ×2 (12:26→20:22)
--- NOTE | 2023-04-08 12:50 | PM.PSYCN ---
History of Present Illness Date of Service: 04/08/2023 Chief Complaint: CDiff Reason for Consult: F/U Requesting physician: Tea Bravo Discussed with referring provider: Yes Sources of Information: patient interviewed, chart reviewed and crisis/core team assessment reviewed HPI Narrative: Interim Hx: pt started venlafaxine this morning and clonazepam BID. Her present during visit. She reports feeling less restless and less anxious. She reports she tries to feel more positive but difficult when in pain and with restless leg syndrome. She denies SI/HI. No VH/AH. She reports looking forward to transition to short term rehab tomorrow. Past Psychiatric History: Past medication trials: cymbalta, lexapro, diazepam Medical Evaluation Reviewed: Yes COUNTS INCLUDE 234 BEDS AT THE [facility] Medical History (Updated 04/07/23 @ 16:58 by Betzy Vergara) (HFpEF) heart failure with preserved ejection fraction Mild recurrent major depression Hyperlipidemia LDL goal <70 Post-dural puncture headache PONV (postoperative nausea and vomiting) Positive occult stool blood test [place] Headache Anemia Acute upper GI bleed Diabetic polyneuropathy COVID-19 Thiamine deficiency Hand pain CVA (cerebral vascular accident) Head injury Left shoulder pain Left knee pain Left hip pain Left hand pain Dizziness Diabetic neuropathy Diabetes type 2, uncontrolled Type 2 diabetes mellitus with other diabetic kidney complication Proteinuria Type 2 diabetes mellitus with diabetic polyneuropathy Dyslipidemia Obesity due to excess calories Other and unspecified hyperlipidemia Chronic heart failure with preserved ejection fraction (HFpEF) Anemia Thrombocytosis Pulmonary hypertension Ischemic stroke Paroxysmal atrial fibrillation Atherosclerotic cardiovascular disease Hospital discharge follow-up Thrombus Urge urinary incontinence Iron deficiency anemia Pure hypercholesterolemia Essential hypertension Diabetes mellitus Lumbar degenerative disc disease Surgical History (Updated 04/06/23 @ 15:03 by RIOS Garcia) S/P laminectomy S/P cardiac pacemaker procedure S/P insertion of spinal cord stimulator H/O colonoscopy History of Mohs micrographic surgery for skin cancer Hx of cervical spine surgery History of partial hysterectomy Hx of cardiac cath Diagnostics Vital Signs (24Hr): Vital Signs - 24 hr 04/07/23 15:58 04/07/23 19:53 04/08/23 02:54 Temperature 98.1 F 97 F 97.4 F Pulse Rate 70 70 70 Respiratory Rate 20 14 16 Blood Pressure 168/64 H 178/80 H 122/82 Pulse Oximetry 97 99 100 Oxygen Delivery Method Room Air Room Air 04/08/23 08:00 Temperature 96.9 F Pulse Rate 70 Respiratory Rate 18 Blood Pressure 120/70 Pulse Oximetry 98 Oxygen Delivery Method Room Air BMI result Body Mass Index 34.5 Labs 04/08/23 06:35 04/08/23 06:35 Labs: Laboratory Results - last 48 hr 04/06/23 04/06/23 04/06/23 11:21 11:22 16:55 WBC RBC Hgb Hct MCV MCH MCHC RDW Plt Count MPV Immature Gran % (Auto) Neut % (Auto) Lymph % (Auto) [place] % (Auto) Eos % (Auto) Baso % (Auto) Lymph # (Auto) [place] # (Auto) Eos # (Auto) Baso # (Auto) Abs Immat Gran (auto) Absolute Neuts (auto) Absolute Nucleated RBC Nucleated RBC % (auto) Hold Purple Top Sodium Potassium Chloride Carbon Dioxide Anion Gap BUN Creatinine Estim Creat Clear Calc Estimated GFR POC Glucose 140 H Random Glucose Calcium C-Reactive Protein Hold Yellow Top Stl C. cayetanensis PCR Not Detected Stool Rotavirus A PCR Not Detected Stl Adenov F 40/41 PCR Not Detected Stool Astrovirus (PCR) Not Detected Stool Campylobacter PCR Not Detected Stool Cryptosporidium PCR Not Detected Stl Sh Tox Pr E STEC PCR Not Detected Stool E coli O157 PCR Not applicable Stl Enterotoxigenic E PCR Not Detected Stool EPEC (PCR) Not Detected Stool EAEC (PCR) Not Detected Stl E. histolytica PCR Not Detected Stool Giardia Lamblia PCR Not Detected Stl P. shigelloides PCR Not Detected Stool Salmonella PCR Not Detected Stool Sapovirus (PCR) Not Detected Stl Shigella/EIEC PCR Not Detected St Y.enterocolitica PCR Not Detected Stool Vibrio (PCR) Not Detected Stl Vibrio cholerae PCR Not Detected Stl Norovirus GI/GII PCR Not Detected C. difficile Toxin A&B Negative C. difficile Interpret SEE NOTE 04/07/23 04/07/23 04/07/23 05:53 07:28 11:42 WBC 8.0 RBC 4.84 Hgb 13.4 Hct 40.7 MCV 84.1 MCH 27.7 MCHC 32.9 RDW 15.9 Plt Count 375 MPV 8.8 L Immature Gran % (Auto) 0.5 H Neut % (Auto) 60.6 Lymph % (Auto) 25.7 [place] % (Auto) 9.6 Eos % (Auto) 2.5 Baso % (Auto) 1.1 Lymph # (Auto) 2.0 [place] # (Auto) 0.8 Eos # (Auto) 0.2 Baso # (Auto) 0.1 Abs Immat Gran (auto) 0.04 H Absolute Neuts (auto) 4.8 Absolute Nucleated RBC 0.000 Nucleated RBC % (auto) 0.0 Hold Purple Top Sodium 126 L Potassium 4.0 Chloride 89 L Carbon Dioxide 27 Anion Gap 14 BUN 18 H Creatinine 0.96 Estim Creat Clear Calc 54.2 Estimated GFR 57 POC Glucose 153 H 170 H Random Glucose 134 H Calcium 9.4 C-Reactive Protein 0.23 Hold Yellow Top Stl C. cayetanensis PCR Stool Rotavirus A PCR Stl Adenov F 40/ PCR Stool Astrovirus (PCR) Stool Campylobacter PCR Stool Cryptosporidium PCR Stl Sh Tox Pr E STEC PCR Stool E coli O157 PCR Stl Enterotoxigenic E PCR Stool EPEC (PCR) Stool EAEC (PCR) Stl E. histolytica PCR Stool Giardia Lamblia PCR Stl P. shigelloides PCR Stool Salmonella PCR Stool Sapovirus (PCR) Stl Shigella/EIEC PCR St Y.enterocolitica PCR Stool Vibrio (PCR) Stl Vibrio cholerae PCR Stl Norovirus GI/GII PCR C. difficile Toxin A&B C. difficile Interpret 04/07/23 04/07/23 04/07/23 15:06 16:26 19:57 WBC RBC Hgb Hct MCV MCH MCHC RDW Plt Count MPV Immature Gran % (Auto) Neut % (Auto) Lymph % (Auto) [place] % (Auto) Eos % (Auto) Baso % (Auto) Lymph # (Auto) [place] # (Auto) Eos # (Auto) Baso # (Auto) Abs Immat Gran (auto) Absolute Neuts (auto) Absolute Nucleated RBC Nucleated RBC % (auto) Hold Purple Top SEE NOTE Sodium 127 L Potassium Chloride Carbon Dioxide Anion Gap BUN Creatinine Estim Creat Clear Calc Estimated GFR POC Glucose 131 H 202 H Random Glucose Calcium C-Reactive Protein Hold Yellow Top See Note Stl C. cayetanensis PCR Stool Rotavirus A PCR Stl Adenov F 40/41 PCR Stool Astrovirus (PCR) Stool Campylobacter PCR Stool Cryptosporidium PCR Stl Sh Tox Pr E STEC PCR Stool E coli O157 PCR Stl Enterotoxigenic E PCR Stool EPEC (PCR) Stool EAEC (PCR) Stl E. histolytica PCR Stool Giardia Lamblia PCR Stl P. shigelloides PCR Stool Salmonella PCR Stool Sapovirus (PCR) Stl Shigella/EIEC PCR St Y.enterocolitica PCR Stool Vibrio (PCR) Stl Vibrio cholerae PCR Stl Norovirus GI/GII PCR C. difficile Toxin A&B C. difficile Interpret 04/08/23 04/08/23 04/08/23 06:35 07:08 11:17 WBC 8.2 RBC 4.57 Hgb 12.6 Hct 38.4 MCV 84.0 MCH 27.6 MCHC 32.8 RDW 15.9 Plt Count 350 MPV 8.7 L Immature Gran % (Auto) Neut % (Auto) Lymph % (Auto) [place] % (Auto) Eos % (Auto) Baso % (Auto) Lymph # (Auto) [place] # (Auto) Eos # (Auto) Baso # (Auto) Abs Immat Gran (auto) Absolute Neuts (auto) Absolute Nucleated RBC 0.000 Nucleated RBC % (auto) 0.0 Hold Purple Top Sodium 131 L Potassium 4.0 Chloride 96 Carbon Dioxide 27 Anion Gap 12 BUN 17 H Creatinine 0.71 Estim Creat Clear Calc 73.3 Estimated GFR > 60 POC Glucose 98 151 H Random Glucose 117 H Calcium 9.3 C-Reactive Protein Hold Yellow Top Stl C. cayetanensis PCR Stool Rotavirus A PCR Stl Adenov F 40/41 PCR Stool Astrovirus (PCR) Stool Campylobacter PCR Stool Cryptosporidium PCR Stl Sh Tox Pr E STEC PCR Stool E coli O157 PCR Stl Enterotoxigenic E PCR Stool EPEC (PCR) Stool EAEC (PCR) Stl E. histolytica PCR Stool Giardia Lamblia PCR Stl P. shigelloides PCR Stool Salmonella PCR Stool Sapovirus (PCR) Stl Shigella/EIEC PCR St Y.enterocolitica PCR Stool Vibrio (PCR) Stl Vibrio cholerae PCR Stl Norovirus GI/GII PCR C. difficile Toxin A&B C. difficile Interpret Imaging Radiology Impressions: ITS Impressions Chest X-Ray 03/30/23 14:47 IMPRESSION: No acute cardiopulmonary process. Cervical Spine CT 04/02/23 14:21 IMPRESSION: 1. No acute intracranial process seen. 2. No acute fracture, dislocation or subluxation seen in cervical spine. 3. There are degenerative disc changes with spondylosis C3-C4, C4-C5, C6-C7 and C7-T1 disc levels. Wide laminectomy from C3 through C6 vertebra. Head CT 04/02/23 14:21 IMPRESSION: 1. No acute intracranial process seen. 2. No acute fracture, dislocation or subluxation seen in cervical spine. 3. There are degenerative disc changes with spondylosis C3-C4, C4-C5, C6-C7 and C7-T1 disc levels. Wide laminectomy from C3 through C6 vertebra. Mental Status Exam Mental Status Exam Narrative: Appearance: wearing hospital gown, good hygiene, calmer, less tapping of feet. Behavior: cooperative Psychomotor: less tapping of feet Speech: clear, normal rate/rhythm/volume, spontaneous TP: linear TC: anxiety and depression worsened by neck pain and RLS Mood: better Affect: congruent SI: denies HI: denies VH/AH: none Delusions: none Insight/judgment: fair x 2. Memory/cog; alert, oriented x 3. not formally tested. may benefit from MOCA. Medications Medications Current Medications Acetaminophen (Acetaminophen 325 Mg Tablet) 650 mg PO Q6H PRN PRN Reason: Pain, Mild (Pain Scale 1-3) Acetaminophen/Butalbital/Caffeine (Butalb/Acetamin/Caff 50/325/40 Tablet) 1 tab PO Q4H PRN PRN Reason: Headache Last Admin: 04/08/23 08:29 Dose: 1 tab Atenolol (Atenolol 50 Mg Tablet) 50 mg PO BID [facility]; Protocol Last Admin: 04/08/23 08:30 Dose: 50 mg Atorvastatin Calcium (Atorvastatin Calcium 80 Mg Tablet) 80 mg PO BEDTIME [facility] Last Admin: 04/07/23 20:19 Dose: 80 mg Baclofen (Baclofen 10 Mg Tablet) 10 mg PO TID PRN PRN Reason: muscle spasm Last Admin: 04/06/23 21:04 Dose: 10 mg Bisacodyl (Bisacodyl 5 Mg Tablet.Dr) 5 mg PO BEDTIME [facility] Last Admin: 04/07/23 20:19 Dose: 5 mg Clonazepam (Clonazepam 0.5 Mg Tablet) 0.5 mg PO BID [facility] Last Admin: 04/08/23 08:30 Dose: 0.5 mg Clotrimazole (Clotrimazole 1 % Cream 15 Gm Tube) 1 appl TOPICAL BID [facility] Last Admin: 04/08/23 08:15 Dose: Not Given Cyanocobalamin (Cyanocobalamin (Vitamin B-12) 1,000 Mcg Tablet) 1,000 mcg PO DAILY [facility] Last Admin: 04/08/23 08:29 Dose: 1,000 mcg Dextrose (Dextrose 50 % 25 Gm/50 Ml Syringe) 25 gm IVPUSH Q15M PRN; Protocol PRN Reason: per Hypoglycemia Standing Ord. Digoxin (Digoxin 0.125 Mg Tablet) 0.125 mg PO DAILY [facility] Last Admin: 04/08/23 08:30 Dose: 0.125 mg Docusate Sodium (Docusate Sodium 100 Mg Capsule) 100 mg PO BID PRN PRN Reason: constipation Ezetimibe (Ezetimibe 10 Mg Tablet) 10 mg PO DAILY [facility] Last Admin: 04/08/23 08:29 Dose: 10 mg Empagliflozin (Empagliflozin 25 Mg Tablet) 25 mg PO DAILY [facility] Last Admin: 04/08/23 08:30 Dose: 25 mg Escitalopram Oxalate (Escitalopram Oxalate 5 Mg Tablet) 5 mg PO DAILY [facility] Fenofibrate (Fenofibrate 160 Mg Tablet) 160 mg PO DAILY [facility] Last Admin: 04/08/23 08:29 Dose: 160 mg Fidaxomicin (Fidaxomicin 200 Mg Tablet) 200 mg PO Q12H [facility] Last Admin: 04/08/23 03:31 Dose: 200 mg Fluticasone Propionate (Fluticasone Propionate Nasal 16 Gm [place]) 1 spray NOSTRIL-B DAILY [facility] Last Admin: 04/08/23 08:35 Dose: Not Given Furosemide (Furosemide 40 Mg Tablet) 40 mg PO DAILY [facility]; Protocol Last Admin: 04/08/23 08:29 Dose: 40 mg Gabapentin (Gabapentin 400 Mg Capsule) 400 mg PO BID [facility] Last Admin: 04/08/23 08:29 Dose: 400 mg Glucose (Glucose Gel 15 Gm Gel..Gram.) 15 gm PO Q15M PRN; Protocol PRN Reason: per Hypoglycemia Standing Ord. Hydroxychloroquine Sulfate (Hydroxychloroquine Sulfate 200 Mg Tablet) 200 mg PO BID [facility] Last Admin: 04/08/23 08:29 Dose: 200 mg Insulin Glargine (Insulin Glargine,Hum.Rec.Anlog 100 Unit/Ml 10 Ml Vial) 10 unit SUBCUT BEDTIME [facility] Last Admin: 04/07/23 20:21 Dose: 10 unit Insulin Human Lispro (Insulin Lispro 100 Unit/Ml 3 Ml Vial) 0 unit SUBCUT QIDACHS [facility]; Protocol Last Admin: 04/08/23 12:26 Dose: 2 unit Loratadine (Loratadine 10 Mg Tablet) 10 mg PO DAILY [facility] Last Admin: 04/08/23 08:30 Dose: 10 mg Losartan Potassium (Losartan Potassium 25 Mg Tablet) 25 mg PO DAILY [facility]; Protocol Last Admin: 04/08/23 08:30 Dose: 25 mg Magnesium Oxide (Magnesium Oxide 400 Mg Tablet) 200 mg PO DAILY [facility] Last Admin: 04/08/23 08:29 Dose: 200 mg Meclizine HCl (Meclizine Hcl 12.5 Mg Tablet) 12.5 mg PO BID PRN PRN Reason: Dizziness Or Vertigo Mirabegron (Mirabegron 50 Mg Tab.Er.24h) 50 mg PO DAILY [facility] Last Admin: 04/08/23 08:30 Dose: 50 mg Multivitamins/Vitamin C (Multivitamin Tablet) 1 tab PO DAILY [facility] Last Admin: 04/08/23 08:30 Dose: 1 tab Nystatin (Nystatin Powder 15 Gm Bottle) 1 appl TOPICAL DAILY [facility]; Protocol Last Admin: 04/08/23 08:35 Dose: Not Given Omeprazole (Omeprazole 40 Mg Capsule.Dr) 40 mg PO DAILY@0630 [facility] Last Admin: 04/08/23 05:06 Dose: 40 mg Ondansetron HCl (Ondansetron Odt 4 Mg Tab.Rapdis) 4 mg TRANSLINGU Q6H [facility] Last Admin: 04/08/23 08:29 Dose: 4 mg Ondansetron HCl (Ondansetron Hcl 4 Mg/2 Ml Vial) 4 mg IVPUSH Q8H PRN PRN Reason: Nausea and Vomiting Polyethylene Glycol (Polyethylene Glycol 3350 17 Gm Powd.Pack) 17 gm PO DAILY [facility] Last Admin: 04/08/23 08:15 Dose: Not Given Rivaroxaban (Rivaroxaban 20 Mg Tablet) 20 mg PO DAILY@1700 [facility] Last Admin: 04/07/23 17:15 Dose: 20 mg Ropinirole HCl (Ropinirole Hcl 0.5 Mg Tablet) 0.5 mg PO BEDTIME [facility] Last Admin: 04/07/23 20:19 Dose: 0.5 mg Senna (Sennosides 8.6 Mg Tablet) 17.2 mg PO BEDTIME PRN PRN Reason: Constipation Sodium Chloride (0.9 % Sodium Chloride Flush 3 Ml Syringe) 3 ml IVFLUSH QSHIFT [facility] Last Admin: 04/08/23 07:28 Dose: Not Given Thiamine HCl (Thiamine Hcl 100 Mg Tablet) 100 mg PO DAILY [facility] Last Admin: 04/08/23 08:30 Dose: 100 mg Triamcinolone Acetonide (Triamcinolone Acet 0.5 % Cream 15 Gm Tube) 1 appl TOPICAL DAILY PRN PRN Reason: Rash Last Admin: 04/06/23 21:06 Dose: 1 appl Venlafaxine HCl (Venlafaxine Hcl Er 37.5 Mg Cap.Er.24h) 37.5 mg PO DAILY [facility] Last Admin: 04/08/23 08:30 Dose: 37.5 mg Allergies Allergies Allergy/AdvReac Type Severity Reaction Status Date / Time morphine [Morphine] Allergy Severe ITCHING, Verified 03/26/23 16:46 hives cefdinir Allergy Intermediate hives Verified 03/26/23 16:46 sulfamethoxazole Allergy Intermediate RASH Verified 03/26/23 16:46 trimethoprim Allergy Intermediate RASH Verified 03/26/23 16:46 duloxetine AdvReac Severe altered Verified 03/26/23 16:46 behavior Assessment & Plan Assessment & Plan (1) MDD (major depressive disorder), recurrent episode, moderate: Status: Acute Code(s): F33.1 - Major depressive disorder, recurrent, moderate Plan Mrs. Keenan is a 72 year-old woman medically admitted for cdiff. Psych consult for severe anxious/restless mood and depression appears secondary or recently exacerbated by cervical pain and RLS. Pt visibly uncomfortable due to both. Note that RLS do increase restlessness and agitation. We discussed switching lexapro to venlafaxine- I think it will have some added benefits such as some relief in neuropathic pain, less exacerbation in RLS as antidepressants mainly serotonergic. PLAN 04/08- discussed with attending Dr. Bravo pt scheduled to be discharged tomorrow to short term rehab. will give last dose of lexapro 5mg po daily tomorrow and discharged ONLY on venlafaxine 75mg po daily. Continue clonazepam 0.5mg po BID. This marketing underwriter sent tiger message to her PCP Dr. Feliz making her aware of this change. Total time managing care of this patient today __35__ minutes. Patient educated on: diagnosis and medication risk/benefits
--- NOTE | 2023-04-08 13:48 | MHC.CM.PN ---
EMR REVIEWED. PER NOTES, PT IS OUT OF MCR DAYS AND MH SPEND DOWN WAS DONE. PT HAS NO PP FUNDS TO ACCOMMODATE A NURSING CENTER PER SPOUSE. PT/FAMILY IS WORKING WITH [employer] ON [facility]. CM CALLED ATTBob WADE TO INQUIRE ON STATUS OF [facility] ([phone]) MIGUEL ÁNGEL WADE STATES SHE WILL BE FILING TOMORROW AND WILL CALL US WITH A PPA ONCE SHE HEARS. CM WILL CONTINUE TO FOLLOW FOR DC PLAN/NEEDS. MADE AWARE.
[2023-04-08 15:07] VITALS: BP 140/68; PULSE 69; RESP 16; TEMP 36.9; O2SAT 99
[2023-04-08] MEDS: 0.9 % Sodium Chloride Flush 3 ML SYRINGE IVFLUSH (15:40)
[2023-04-08 16:28] LABS: Glucose, Whole Blood 134 mg/dL (60-115)
[2023-04-08] MEDS: Rivaroxaban 20 MG TABLET PO (17:26)
[2023-04-08 19:03] VITALS: BP 152/84; PULSE 70; RESP 19; TEMP 36.6; O2SAT 98
[2023-04-08 20:10] LABS: Glucose, Whole Blood 183 mg/dL (60-115)
[2023-04-08] MEDS: Atorvastatin Calcium 80 MG TABLET PO (20:21)
[2023-04-08] MEDS: rOPINIRole HCL 0.5 MG TABLET PO (20:21)
[2023-04-08] MEDS: Acetaminophen 325 MG TABLET 650 MG PO (20:21)
[2023-04-08] MEDS: Insulin Glargine,Hum.rec.anlog 100 UNIT/ML 10 ML VIAL 10 UNIT SUBCUT (20:21)
[2023-04-09 03:42] VITALS: BP 119/58; PULSE 70; RESP 16; TEMP 36.7; O2SAT 97
[2023-04-09] MEDS: Butalb/Acetamin/Caff 50/325/40 TABLET 1 TAB PO ×3 (03:43→20:25)
[2023-04-09] MEDS: Fidaxomicin 200 MG TABLET PO ×2 (03:43→14:33)
[2023-04-09] MEDS: Ondansetron ODT 4 MG TAB.RAPDIS TRANSLINGU ×4 (03:48→22:19)
[2023-04-09 07:45] LABS: Glucose, Whole Blood 121 mg/dL (60-115)
[2023-04-09 08:00] VITALS: BP 148/66; PULSE 70; RESP 18; TEMP 36.6; O2SAT 96
[2023-04-09] MEDS: Loratadine 10 MG TABLET PO (10:24)
[2023-04-09] MEDS: Losartan Potassium 25 MG TABLET PO (10:24)
[2023-04-09] MEDS: Digoxin 0.125 MG TABLET PO (10:24)
[2023-04-09] MEDS: Multivitamin TABLET 1 TAB PO (10:24)
[2023-04-09] MEDS: Ezetimibe 10 MG TABLET PO (10:24)
[2023-04-09] MEDS: Cyanocobalamin (Vitamin B-12) 1,000 MCG TABLET 1000 MCG PO (10:24)
[2023-04-09] MEDS: Magnesium Oxide 400 MG TABLET 200 MG PO (10:24)
[2023-04-09] MEDS: Fenofibrate 160 MG TABLET PO (10:24)
[2023-04-09] MEDS: clonazePAM 0.5 MG TABLET PO ×2 (10:24→20:26)
[2023-04-09] MEDS: Escitalopram Oxalate 5 MG TABLET PO (10:25)
[2023-04-09] MEDS: Furosemide 40 MG TABLET PO (10:25)
[2023-04-09] MEDS: Venlafaxine HCl ER 75 MG CAP.ER.24H PO (10:25)
[2023-04-09] MEDS: Empagliflozin 25 MG TABLET PO (10:25)
[2023-04-09] MEDS: Hydroxychloroquine Sulfate 200 MG TABLET PO ×2 (10:25→20:26)
[2023-04-09] MEDS: atenoloL 50 MG TABLET PO ×2 (10:25→20:26)
[2023-04-09] MEDS: Mirabegron 50 MG TAB.ER.24H PO (10:25)
[2023-04-09] MEDS: Thiamine HCL 100 MG TABLET PO (10:25)
[2023-04-09] MEDS: Gabapentin 400 MG CAPSULE PO ×2 (10:25→20:26)
[2023-04-09] MEDS: Nystatin Powder 15 GM BOTTLE 1 APPL TOPICAL (10:34)
[2023-04-09] MEDS: 0.9 % Sodium Chloride Flush 3 ML SYRINGE IVFLUSH (10:35)
[2023-04-09] MEDS: Fluticasone Propionate Nasal 16 GM SPRAY 1 SPRAY NOSTRIL-B (10:35)
[2023-04-09] MEDS: Clotrimazole 1 % Cream 15 GM TUBE 1 APPL TOPICAL ×2 (10:35→22:18)
--- NOTE | 2023-04-09 11:19 | P.PNIM_ITS ---
Subjective Subjective Date of Service: 04/09/23 Interval History: diarrhea improving, soft BM this AM, no abd pain good appetite Review of Systems Review of Systems: Yes all other systems are reviewed and are negative Physical Exam 2 Vital Signs: Vital Signs: Last Vital Signs Temp 97.8 F 04/09/23 08:00 Pulse 70 04/09/23 08:00 Resp 18 04/09/23 08:00 BP 148/66 H 04/09/23 08:00 Pulse Ox 96 04/09/23 08:00 O2 Del Method Room Air 04/09/23 08:00 O2 Flow Rate 1 03/30/23 13:03 BMI result Body Mass Index 34.5 Gen: in no acute distress HEENT: sclera anicteric, moist mucus membranes Neck: supple Lungs: clear to auscultation bilaterally Heart: regular rate and rhythm, no murmurs Abd: soft, non-tender, non-distended Ext: no edema Skin: warm/well-perfused Neuro: alert and oriented x3, no focal findings Psych: appropriate affect Objective Data Active Medications Acetaminophen (Acetaminophen 325 Mg Tablet) 650 mg PO Q6H PRN PRN Reason: Pain, Mild (Pain Scale 1-3) Last Admin: 04/08/23 20:21 Dose: 650 mg Documented By: BENEDICTO Acetaminophen/Butalbital/Caffeine (Butalb/Acetamin/Caff 50/325/40 Tablet) 1 tab PO Q4H PRN PRN Reason: Headache Last Admin: 04/09/23 10:47 Dose: 1 tab Documented By: DAMIEN Atenolol (Atenolol 50 Mg Tablet) 50 mg PO BID REPLACED BY [facility]; Protocol Last Admin: 04/09/23 10:25 Dose: 50 mg Documented By: DAMIEN Atorvastatin Calcium (Atorvastatin Calcium 80 Mg Tablet) 80 mg PO BEDTIME REPLACED BY [facility] Last Admin: 04/08/23 20:21 Dose: 80 mg Documented By: BENEDICTO Baclofen (Baclofen 10 Mg Tablet) 10 mg PO TID PRN PRN Reason: muscle spasm Last Admin: 04/06/23 21:04 Dose: 10 mg Documented By: KIANA Bisacodyl (Bisacodyl 5 Mg Tablet.) 5 mg PO BEDTIME REPLACED BY [facility] Last Admin: 04/08/23 20:25 Dose: Not Given Documented By: BENEDICTO Non-Admin Reason: Patient Condition Contraindication Clonazepam (Clonazepam 0.5 Mg Tablet) 0.5 mg PO BID REPLACED BY [facility] Last Admin: 04/09/23 10:24 Dose: 0.5 mg Documented By: DAMIEN Clotrimazole (Clotrimazole 1 % Cream 15 Gm Tube) 1 appl TOPICAL BID REPLACED BY [facility] Last Admin: 04/09/23 10:35 Dose: 1 appl Documented By: DAMIEN Cyanocobalamin (Cyanocobalamin (Vitamin B-12) 1,000 Mcg Tablet) 1,000 mcg PO DAILY REPLACED BY [facility] Last Admin: 04/09/23 10:24 Dose: 1,000 mcg Documented By: DAMIEN Dextrose (Dextrose 50 % 25 Gm/50 Ml Syringe) 25 gm IVPUSH Q15M PRN; Protocol PRN Reason: per Hypoglycemia Standing Ord. Digoxin (Digoxin 0.125 Mg Tablet) 0.125 mg PO DAILY REPLACED BY [facility] Last Admin: 04/09/23 10:24 Dose: 0.125 mg Documented By: DAMIEN Docusate Sodium (Docusate Sodium 100 Mg Capsule) 100 mg PO BID PRN PRN Reason: constipation Ezetimibe (Ezetimibe 10 Mg Tablet) 10 mg PO DAILY REPLACED BY [facility] Last Admin: 04/09/23 10:24 Dose: 10 mg Documented By: DAMIEN Empagliflozin (Empagliflozin 25 Mg Tablet) 25 mg PO DAILY REPLACED BY [facility] Last Admin: 04/09/23 10:25 Dose: 25 mg Documented By: DAMIEN Fenofibrate (Fenofibrate 160 Mg Tablet) 160 mg PO DAILY REPLACED BY [facility] Last Admin: 04/09/23 10:24 Dose: 160 mg Documented By: DAMIEN Fidaxomicin (Fidaxomicin 200 Mg Tablet) 200 mg PO Q12H REPLACED BY [facility] Last Admin: 04/09/23 03:43 Dose: 200 mg Documented By: BENEDICTO Fluticasone Propionate (Fluticasone Propionate Nasal 16 Gm [place]) 1 spray NOSTRIL-B DAILY REPLACED BY [facility] Last Admin: 04/09/23 10:35 Dose: 1 spray Documented By: DAMIEN Furosemide (Furosemide 40 Mg Tablet) 40 mg PO DAILY REPLACED BY [facility]; Protocol Last Admin: 04/09/23 10:25 Dose: 40 mg Documented By: DAMIEN Gabapentin (Gabapentin 400 Mg Capsule) 400 mg PO BID REPLACED BY [facility] Last Admin: 04/09/23 10:25 Dose: 400 mg Documented By: DAMIEN Glucose (Glucose Gel 15 Gm Gel..Gram.) 15 gm PO Q15M PRN; Protocol PRN Reason: per Hypoglycemia Standing Ord. Hydroxychloroquine Sulfate (Hydroxychloroquine Sulfate 200 Mg Tablet) 200 mg PO BID REPLACED BY [facility] Last Admin: 04/09/23 10:25 Dose: 200 mg Documented By: DAMIEN Insulin Glargine (Insulin Glargine,Hum.Rec.Anlog 100 Unit/Ml 10 Ml Vial) 10 unit SUBCUT BEDTIME REPLACED BY [facility] Last Admin: 04/08/23 20:21 Dose: 10 unit Documented By: BENEDICTO Insulin Human Lispro (Insulin Lispro 100 Unit/Ml 3 Ml Vial) 0 unit SUBCUT QIDACHS REPLACED BY [facility]; Protocol Last Admin: 04/09/23 08:12 Dose: Not Given Documented By: DAMIEN Non-Admin Reason: No Insulin Coverage Loratadine (Loratadine 10 Mg Tablet) 10 mg PO DAILY REPLACED BY [facility] Last Admin: 04/09/23 10:24 Dose: 10 mg Documented By: DAMIEN Losartan Potassium (Losartan Potassium 25 Mg Tablet) 25 mg PO DAILY REPLACED BY [facility]; Protocol Last Admin: 04/09/23 10:24 Dose: 25 mg Documented By: DAMIEN Magnesium Oxide (Magnesium Oxide 400 Mg Tablet) 200 mg PO DAILY REPLACED BY [facility] Last Admin: 04/09/23 10:24 Dose: 200 mg Documented By: DAMIEN Meclizine HCl (Meclizine Hcl 12.5 Mg Tablet) 12.5 mg PO BID PRN PRN Reason: Dizziness Or Vertigo Mirabegron (Mirabegron 50 Mg Tab.Er.24h) 50 mg PO DAILY REPLACED BY [facility] Last Admin: 04/09/23 10:25 Dose: 50 mg Documented By: DAMIEN Multivitamins/Vitamin C (Multivitamin Tablet) 1 tab PO DAILY REPLACED BY [facility] Last Admin: 04/09/23 10:24 Dose: 1 tab Documented By: DAMIEN Nystatin (Nystatin Powder 15 Gm Bottle) 1 appl TOPICAL DAILY REPLACED BY [facility]; Protocol Last Admin: 04/09/23 10:34 Dose: 1 appl Documented By: DAMIEN Omeprazole (Omeprazole 40 Mg Capsule.Dr) 40 mg PO DAILY@0630 REPLACED BY [facility] Last Admin: 04/09/23 06:14 Dose: Not Given Documented By: BENEDICTO Non-Admin Reason: Patient Refused Ondansetron HCl (Ondansetron Odt 4 Mg Tab.Rapdis) 4 mg TRANSLINGU Q6H REPLACED BY [facility] Last Admin: 04/09/23 10:24 Dose: 4 mg Documented By: DAMIEN Ondansetron HCl (Ondansetron Hcl 4 Mg/2 Ml Vial) 4 mg IVPUSH Q8H PRN PRN Reason: Nausea and Vomiting Polyethylene Glycol (Polyethylene Glycol 3350 17 Gm Powd.Pack) 17 gm PO DAILY REPLACED BY [facility] Last Admin: 04/09/23 10:32 Dose: Not Given Documented By: DAMIEN Non-Admin Reason: loose stools Rivaroxaban (Rivaroxaban 20 Mg Tablet) 20 mg PO DAILY@1700 REPLACED BY [facility] Last Admin: 04/08/23 17:26 Dose: 20 mg Documented By: MARLEN Ropinirole HCl (Ropinirole Hcl 0.5 Mg Tablet) 0.5 mg PO BEDTIME REPLACED BY [facility] Last Admin: 04/08/23 20:21 Dose: 0.5 mg Documented By: BENEDICTO Senna (Sennosides 8.6 Mg Tablet) 17.2 mg PO BEDTIME PRN PRN Reason: Constipation Sodium Chloride (0.9 % Sodium Chloride Flush 3 Ml Syringe) 3 ml IVFLUSH QSHIFT REPLACED BY [facility] Last Admin: 04/09/23 10:35 Dose: 3 ml Documented By: DAMIEN Thiamine HCl (Thiamine Hcl 100 Mg Tablet) 100 mg PO DAILY REPLACED BY [facility] Last Admin: 04/09/23 10:25 Dose: 100 mg Documented By: DAMIEN Triamcinolone Acetonide (Triamcinolone Acet 0.5 % Cream 15 Gm Tube) 1 appl TOPICAL DAILY PRN PRN Reason: Rash Last Admin: 04/06/23 21:06 Dose: 1 appl Documented By: KIANA Venlafaxine HCl (Venlafaxine Hcl Er 75 Mg Cap.Er.24h) 75 mg PO DAILY REPLACED BY [facility] Last Admin: 04/09/23 10:25 Dose: 75 mg Documented By: DAMIEN Labs 04/08/23 06:35 04/08/23 06:35 Labs: Laboratory Results - last 24 hr 04/08/23 04/08/23 04/08/23 11:17 16:24 20:00 POC Glucose 151 H 134 H 183 H 04/09/23 07:40 POC Glucose 121 H Assessment and Plan (1) Clostridium difficile infection: Status: Acute Plan d4 72yo F with DM2, HTN, paroxysmal AF on rivaroxaban and s/p PPM, CAD, mood disorder, chronic HFpEF, hx CVA, recent laminectomy in December was awaiting LTC placement; had UTI treated with TMP-SMX x5d but then developed Cdiff colitis + hypoNa Cdiff colitis - fidoxamicin d4, improving cinically acute hypoNa - due to hypovolemia from diarrhea; improved after IV NS repletion chronic neck pain s/p laminectomy - CT negative for acute issues; continue lidocaine patches, APAP, oxycodone paroxysmal AF, rate-controlled - continue RC with digoxin + atenolol; AC with rivaroxaban chronic HFpEF - continue furosemide, empagliflozin, losartan, atenolol HTN - continue losartan, atenolol, furosemide DM2 - basal and correction-dose lispro, hold MTF CAD - continue atenolol, losartan, atrovastatn HLD - continue atorvastatin, ezetimibe, fenofibrate OAB - continue mirabegron mood disorder - Psychiatry consulted 04/07 for worsening anxiety/depression without SI; recommend: 1. Cross taper lexapro to venlafaxine- lower lexapro to 10mg po daily, start venlafaxine 37.5mg po daily. will continue lowering lexapro and adjusting dose of venlafaxine (can aim initially to 75mg po daily). Monitor hypertension- SBP with venlafaxine. 2. scheduled low dose clonazepam 0.5mg po BID will help with restlessness, anxious mood. d/c ativan to avoid excessive benzodiazepines. Monitor over sedation, unteady gait. 3. will follow up again tomorrow. VTE ppx - rivaroxaban dispo - LTC, CM searching In my clinical judgment, the patient requires continued inpatient hospitalization for the following reasons: placement Total time managing care of this patient today: 35 minutes. Quality Stroke Does the patient have a stroke diagnosis?: No VTE Prior VTE?: No VTE Risk Level:: Medical - moderate - high VTE Device Contraindication: Treatment Not Indicated VTE Drug Contraindication: N/A - Med Ordered
[2023-04-09 11:56] LABS: Glucose, Whole Blood 165 mg/dL (60-115)
[2023-04-09] MEDS: Insulin Lispro 100 UNIT/ML 3 ML VIAL SUBCUT ×3 (12:14→21:18)
--- NOTE | 2023-04-09 13:43 | PC.NURSE ---
IV leaking. No IV meds ordered. Dr Shelly oquendo with leaving without IV access.
--- NOTE | 2023-04-09 14:12 | MHC.CM.PN ---
PAndria. WORKED WITH PT WHO DID WELL WITH MOBILITY, NEW REC. ANTICIPATES HOME WITH RESUMPTION OF HC SERVICES WITH [facility]. BOTH PT AND HER SPOUSE/HCP ARE COMFORTABLE WITH HOME PLAN. MD AWARE. PLAN TO DC 04/10 IF MEDICALLY CLEARED. [facility] UPDATED. PT WILL NEED BLS TRANSPORT HOME. CM WILL CONTINUE TO FOLLOW FOR ANY CHANGE IN PLAN.
[2023-04-09] MEDS: Acetaminophen 325 MG TABLET 650 MG PO (14:36)
[2023-04-09 16:00] VITALS: BP 138/48; PULSE 81; RESP 18; TEMP 36.5; O2SAT 95
[2023-04-09 16:35] LABS: Glucose, Whole Blood 291 mg/dL (60-115)
--- NOTE | 2023-04-09 16:46 | P.CNPS_ITS ---
History of Present Illness Date of Service: 05/09/2023 Chief Complaint: CDiff Reason for Consult: f/u Requesting physician: Graciela Verdugo Discussed with referring provider: Yes Sources of Information: patient interviewed, chart reviewed and crisis/core team assessment reviewed HPI Narrative: Interim Hx: pt reports less anxious mood, less RLS. She reports episodes of lashing out at who tends to be receiving end of outburst. She denies SI/HI. She expressed confusion and frustration due to PT coming to reassess pt and she is ambulating much better and does not qualify for intensive short term PT anymore. She reports sleep is better. Past Psychiatric History: Past medication trials: cymbalta, lexapro, diazepam Review of Systems Review of Systems General: No fevers, malaise, unintentional weight loss HEENT: No blurred vision, diplopia. No sore throat, nasal congestion, rhinorrhea, sinus pain, ear pain Cardiovascular: No chest pain, palpitations, or leg edema Respiratory: No shortness of breath, wheezing, cough GI: +abd pain, +loose stool. No nausea, vomiting, watery diarrhea, constipation, melena, hematochezia : No dysuria, hematuria, increased urinary frequency, decreased urinary output MSK: No myalgia, back pain Neuro: No headaches, weakness, paresthesias Skin: No rashes or lesions Yes all other systems are reviewed and are negative Cardiovascular: Reports no additional cardiovascular complaints Gastrointestinal: Reports no additional gastrointestinal complaints Reports system reviewed and no additional complaints, except as documented [facility] Medical History (Updated 04/10/23 @ 11:37 by Tea Bravo MD) (HFpEF) heart failure with preserved ejection fraction Mild recurrent major depression Hyperlipidemia LDL goal <70 Post-dural puncture headache PONV (postoperative nausea and vomiting) Positive occult stool blood test [place] Headache Anemia Acute upper GI bleed Diabetic polyneuropathy COVID-19 Thiamine deficiency Hand pain CVA (cerebral vascular accident) Head injury Left shoulder pain Left knee pain Left hip pain Left hand pain Dizziness Diabetic neuropathy Diabetes type 2, uncontrolled Type 2 diabetes mellitus with other diabetic kidney complication Proteinuria Type 2 diabetes mellitus with diabetic polyneuropathy Dyslipidemia Obesity due to excess calories Other and unspecified hyperlipidemia Chronic heart failure with preserved ejection fraction (HFpEF) Anemia Thrombocytosis Pulmonary hypertension Ischemic stroke Paroxysmal atrial fibrillation Atherosclerotic cardiovascular disease Hospital discharge follow-up Thrombus Urge urinary incontinence Iron deficiency anemia Pure hypercholesterolemia Essential hypertension Diabetes mellitus Lumbar degenerative disc disease Surgical History (Updated 04/06/23 @ 15:03 by RIOS Garcia) S/P laminectomy S/P cardiac pacemaker procedure S/P insertion of spinal cord stimulator H/O colonoscopy History of Mohs micrographic surgery for skin cancer Hx of cervical spine surgery History of partial hysterectomy Hx of cardiac cath Diagnostics Vital Signs (24Hr): Vital Signs - 24 hr 04/08/23 19:03 04/09/23 03:42 04/09/23 08:00 Temperature 97.9 F 98.0 F 97.8 F Pulse Rate 70 70 70 Respiratory Rate 19 16 18 Blood Pressure 152/84 H 119/58 L 148/66 H Pulse Oximetry 98 97 96 Oxygen Delivery Method Room Air Room Air Room Air 04/09/23 16:00 Temperature 97.7 F Pulse Rate 81 Respiratory Rate 18 Blood Pressure 138/48 L Pulse Oximetry 95 Oxygen Delivery Method Room Air BMI result Body Mass Index 34.5 Labs 04/08/23 06:35 04/08/23 06:35 Labs: Laboratory Results - last 48 hr 04/07/23 04/08/23 04/08/23 19:57 06:35 07:08 WBC 8.2 RBC 4.57 Hgb 12.6 Hct 38.4 MCV 84.0 MCH 27.6 MCHC 32.8 RDW 15.9 Plt Count 350 MPV 8.7 L Absolute Nucleated RBC 0.000 Nucleated RBC % (auto) 0.0 Sodium 131 L Potassium 4.0 Chloride 96 Carbon Dioxide 27 Anion Gap 12 BUN 17 H Creatinine 0.71 Estim Creat Clear Calc 73.3 Estimated GFR > 60 POC Glucose 202 H 98 Random Glucose 117 H Calcium 9.3 04/08/23 04/08/23 04/08/23 11:17 16:24 20:00 WBC RBC Hgb Hct MCV MCH MCHC RDW Plt Count MPV Absolute Nucleated RBC Nucleated RBC % (auto) Sodium Potassium Chloride Carbon Dioxide Anion Gap BUN Creatinine Estim Creat Clear Calc Estimated GFR POC Glucose 151 H 134 H 183 H Random Glucose Calcium 04/09/23 04/09/23 04/09/23 07:40 11:41 16:27 WBC RBC Hgb Hct MCV MCH MCHC RDW Plt Count MPV Absolute Nucleated RBC Nucleated RBC % (auto) Sodium Potassium Chloride Carbon Dioxide Anion Gap BUN Creatinine Estim Creat Clear Calc Estimated GFR POC Glucose 121 H 165 H 291 H Random Glucose Calcium Imaging Radiology Impressions: ITS Impressions Chest X-Ray 03/30/23 14:47 IMPRESSION: No acute cardiopulmonary process. Cervical Spine CT 04/02/23 14:21 IMPRESSION: 1. No acute intracranial process seen. 2. No acute fracture, dislocation or subluxation seen in cervical spine. 3. There are degenerative disc changes with spondylosis C3-C4, C4-C5, C6-C7 and C7-T1 disc levels. Wide laminectomy from C3 through C6 vertebra. Head CT 04/02/23 14:21 IMPRESSION: 1. No acute intracranial process seen. 2. No acute fracture, dislocation or subluxation seen in cervical spine. 3. There are degenerative disc changes with spondylosis C3-C4, C4-C5, C6-C7 and C7-T1 disc levels. Wide laminectomy from C3 through C6 vertebra. Mental Status Exam Mental Status Exam Narrative: Appearance: wearing hospital gown, good hygiene, calmer, less tapping of feet. Behavior: cooperative Psychomotor: less tapping of feet Speech: clear, normal rate/rhythm/volume, spontaneous TP: linear TC: anxiety and depression worsened by neck pain and RLS Mood: I don't know Affect: somewhat frustrated as she learned she is not going to short term rehab SI: denies HI: denies VH/AH: none Delusions: none Insight/judgment: fair x 2. Memory/cog; alert, oriented x 3. not formally tested. may benefit from MOCA. Medications Medications Current Medications Acetaminophen (Acetaminophen 325 Mg Tablet) 650 mg PO Q6H PRN PRN Reason: Pain, Mild (Pain Scale 1-3) Last Admin: 04/09/23 14:36 Dose: 650 mg Acetaminophen/Butalbital/Caffeine (Butalb/Acetamin/Caff 50/325/40 Tablet) 1 tab PO Q4H PRN PRN Reason: Headache Last Admin: 04/09/23 10:47 Dose: 1 tab Atenolol (Atenolol 50 Mg Tablet) 50 mg PO BID [facility]; Protocol Last Admin: 04/09/23 10:25 Dose: 50 mg Atorvastatin Calcium (Atorvastatin Calcium 80 Mg Tablet) 80 mg PO BEDTIME [facility] Last Admin: 04/08/23 20:21 Dose: 80 mg Baclofen (Baclofen 10 Mg Tablet) 10 mg PO TID PRN PRN Reason: muscle spasm Last Admin: 04/06/23 21:04 Dose: 10 mg Bisacodyl (Bisacodyl 5 Mg Tablet.Dr) 5 mg PO BEDTIME [facility] Last Admin: 04/08/23 20:25 Dose: Not Given Clonazepam (Clonazepam 0.5 Mg Tablet) 0.5 mg PO BID [facility] Last Admin: 04/09/23 10:24 Dose: 0.5 mg Clotrimazole (Clotrimazole 1 % Cream 15 Gm Tube) 1 appl TOPICAL BID [facility] Last Admin: 04/09/23 10:35 Dose: 1 appl Cyanocobalamin (Cyanocobalamin (Vitamin B-12) 1,000 Mcg Tablet) 1,000 mcg PO DAILY [facility] Last Admin: 04/09/23 10:24 Dose: 1,000 mcg Dextrose (Dextrose 50 % 25 Gm/50 Ml Syringe) 25 gm IVPUSH Q15M PRN; Protocol PRN Reason: per Hypoglycemia Standing Ord. Digoxin (Digoxin 0.125 Mg Tablet) 0.125 mg PO DAILY [facility] Last Admin: 04/09/23 10:24 Dose: 0.125 mg Docusate Sodium (Docusate Sodium 100 Mg Capsule) 100 mg PO BID PRN PRN Reason: constipation Ezetimibe (Ezetimibe 10 Mg Tablet) 10 mg PO DAILY [facility] Last Admin: 04/09/23 10:24 Dose: 10 mg Empagliflozin (Empagliflozin 25 Mg Tablet) 25 mg PO DAILY [facility] Last Admin: 04/09/23 10:25 Dose: 25 mg Fenofibrate (Fenofibrate 160 Mg Tablet) 160 mg PO DAILY [facility] Last Admin: 04/09/23 10:24 Dose: 160 mg Fidaxomicin (Fidaxomicin 200 Mg Tablet) 200 mg PO Q12H [facility] Last Admin: 04/09/23 14:33 Dose: 200 mg Fluticasone Propionate (Fluticasone Propionate Nasal 16 Gm [place]) 1 spray NOSTRIL-B DAILY [facility] Last Admin: 04/09/23 10:35 Dose: 1 spray Furosemide (Furosemide 40 Mg Tablet) 40 mg PO DAILY [facility]; Protocol Last Admin: 04/09/23 10:25 Dose: 40 mg Gabapentin (Gabapentin 400 Mg Capsule) 400 mg PO BID [facility] Last Admin: 04/09/23 10:25 Dose: 400 mg Glucose (Glucose Gel 15 Gm Gel..Gram.) 15 gm PO Q15M PRN; Protocol PRN Reason: per Hypoglycemia Standing Ord. Hydroxychloroquine Sulfate (Hydroxychloroquine Sulfate 200 Mg Tablet) 200 mg PO BID [facility] Last Admin: 04/09/23 10:25 Dose: 200 mg Insulin Glargine (Insulin Glargine,Hum.Rec.Anlog 100 Unit/Ml 10 Ml Vial) 10 unit SUBCUT BEDTIME [facility] Last Admin: 04/08/23 20:21 Dose: 10 unit Insulin Human Lispro (Insulin Lispro 100 Unit/Ml 3 Ml Vial) 0 unit SUBCUT QIDACHS [facility]; Protocol Last Admin: 04/09/23 12:14 Dose: 2 unit Loratadine (Loratadine 10 Mg Tablet) 10 mg PO DAILY [facility] Last Admin: 04/09/23 10:24 Dose: 10 mg Losartan Potassium (Losartan Potassium 25 Mg Tablet) 25 mg PO DAILY [facility]; Protocol Last Admin: 04/09/23 10:24 Dose: 25 mg Magnesium Oxide (Magnesium Oxide 400 Mg Tablet) 200 mg PO DAILY [facility] Last Admin: 04/09/23 10:24 Dose: 200 mg Meclizine HCl (Meclizine Hcl 12.5 Mg Tablet) 12.5 mg PO BID PRN PRN Reason: Dizziness Or Vertigo Mirabegron (Mirabegron 50 Mg Tab.Er.24h) 50 mg PO DAILY [facility] Last Admin: 04/09/23 10:25 Dose: 50 mg Multivitamins/Vitamin C (Multivitamin Tablet) 1 tab PO DAILY [facility] Last Admin: 04/09/23 10:24 Dose: 1 tab Nystatin (Nystatin Powder 15 Gm Bottle) 1 appl TOPICAL DAILY [facility]; Protocol Last Admin: 04/09/23 10:34 Dose: 1 appl Omeprazole (Omeprazole 40 Mg Capsule.Dr) 40 mg PO DAILY@0630 [facility] Last Admin: 04/09/23 06:14 Dose: Not Given Ondansetron HCl (Ondansetron Odt 4 Mg Tab.Rapdis) 4 mg TRANSLINGU Q6H [facility] Last Admin: 04/09/23 10:24 Dose: 4 mg Ondansetron HCl (Ondansetron Hcl 4 Mg/2 Ml Vial) 4 mg IVPUSH Q8H PRN PRN Reason: Nausea and Vomiting Polyethylene Glycol (Polyethylene Glycol 3350 17 Gm Powd.Pack) 17 gm PO DAILY [facility] Last Admin: 04/09/23 10:32 Dose: Not Given Rivaroxaban (Rivaroxaban 20 Mg Tablet) 20 mg PO DAILY@1700 [facility] Last Admin: 04/08/23 17:26 Dose: 20 mg Ropinirole HCl (Ropinirole Hcl 0.5 Mg Tablet) 0.5 mg PO BEDTIME [facility] Last Admin: 04/08/23 20:21 Dose: 0.5 mg Senna (Sennosides 8.6 Mg Tablet) 17.2 mg PO BEDTIME PRN PRN Reason: Constipation Sodium Chloride (0.9 % Sodium Chloride Flush 3 Ml Syringe) 3 ml IVFLUSH QSHIFT [facility] Last Admin: 04/09/23 10:35 Dose: 3 ml Thiamine HCl (Thiamine Hcl 100 Mg Tablet) 100 mg PO DAILY [facility] Last Admin: 04/09/23 10:25 Dose: 100 mg Triamcinolone Acetonide (Triamcinolone Acet 0.5 % Cream 15 Gm Tube) 1 appl TOPICAL DAILY PRN PRN Reason: Rash Last Admin: 04/06/23 21:06 Dose: 1 appl Venlafaxine HCl (Venlafaxine Hcl Er 75 Mg Cap.Er.24h) 75 mg PO DAILY [facility] Last Admin: 04/09/23 10:25 Dose: 75 mg Allergies Allergies Allergy/AdvReac Type Severity Reaction Status Date / Time morphine [Morphine] Allergy Severe ITCHING, Verified 03/26/23 16:46 hives cefdinir Allergy Intermediate hives Verified 03/26/23 16:46 sulfamethoxazole Allergy Intermediate RASH Verified 03/26/23 16:46 trimethoprim Allergy Intermediate RASH Verified 03/26/23 16:46 duloxetine AdvReac Severe altered Verified 03/26/23 16:46 behavior Assessment & Plan Assessment & Plan (1) MDD (major depressive disorder), recurrent episode, moderate: Status: Acute Code(s): F33.1 - Major depressive disorder, recurrent, moderate Plan Mrs. Keenan is a 72 year-old woman medically admitted for cdiff. Psych consult for severe anxious/restless mood and depression appears secondary or recently exacerbated by cervical pain and RLS. Pt visibly uncomfortable due to both. Note that RLS do increase restlessness and agitation. We discussed switching lexapro to venlafaxine- I think it will have some added benefits such as some relief in neuropathic pain, less exacerbation in RLS as antidepressants mainly serotonergic. PLAN 04/08- discussed with attending Dr. Bravo pt scheduled to be discharged tomorrow to short term rehab. will give last dose of lexapro 5mg po daily tomorrow and discharged ONLY on venlafaxine 75mg po daily. Continue clonazepam 0.5mg po BID. 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 Feliz making her aware of this change. 04/09 continue current medication. Total time managing care of this patient today ____ minutes. Patient educated on: diagnosis and medication risk/benefits
[2023-04-09] MEDS: Rivaroxaban 20 MG TABLET PO (17:27)
[2023-04-09] MEDS: Baclofen 10 MG TABLET PO (17:41)
[2023-04-09 19:48] VITALS: BP 123/60; PULSE 70; RESP 18; TEMP 36.3; O2SAT 98
[2023-04-09] MEDS: rOPINIRole HCL 0.5 MG TABLET PO (20:26)
[2023-04-09] MEDS: Atorvastatin Calcium 80 MG TABLET PO (20:26)
[2023-04-09 20:55] LABS: Glucose, Whole Blood 174 mg/dL (60-115)
[2023-04-09] MEDS: Insulin Glargine,Hum.rec.anlog 100 UNIT/ML 10 ML VIAL 10 UNIT SUBCUT (21:19)
[2023-04-10] MEDS: Fidaxomicin 200 MG TABLET PO (03:09)
[2023-04-10 03:19] VITALS: BP 140/63; PULSE 71; RESP 14; TEMP 36.1; O2SAT 94
[2023-04-10] MEDS: Ondansetron ODT 4 MG TAB.RAPDIS TRANSLINGU ×2 (05:01→12:16)
[2023-04-10] MEDS: Omeprazole 40 MG CAPSULE.DR PO (05:19)
[2023-04-10 07:40] VITALS: BP 130/70; PULSE 70; RESP 20; TEMP 36.4; O2SAT 96
[2023-04-10 07:52] LABS: Glucose, Whole Blood 102 mg/dL (60-115)
[2023-04-10] MEDS: Fenofibrate 160 MG TABLET PO (09:04)
[2023-04-10] MEDS: Empagliflozin 25 MG TABLET PO (09:04)
[2023-04-10] MEDS: Hydroxychloroquine Sulfate 200 MG TABLET PO (09:05)
[2023-04-10] MEDS: Venlafaxine HCl ER 75 MG CAP.ER.24H PO (09:05)
[2023-04-10] MEDS: Losartan Potassium 25 MG TABLET PO (09:05)
[2023-04-10] MEDS: Ezetimibe 10 MG TABLET PO (09:05)
[2023-04-10] MEDS: Thiamine HCL 100 MG TABLET PO (09:05)
[2023-04-10] MEDS: Multivitamin TABLET 1 TAB PO (09:05)
[2023-04-10] MEDS: Furosemide 40 MG TABLET PO (09:05)
[2023-04-10] MEDS: Loratadine 10 MG TABLET PO (09:06)
[2023-04-10] MEDS: Gabapentin 400 MG CAPSULE PO (09:06)
[2023-04-10] MEDS: clonazePAM 0.5 MG TABLET PO (09:06)
[2023-04-10] MEDS: Cyanocobalamin (Vitamin B-12) 1,000 MCG TABLET 1000 MCG PO (09:06)
[2023-04-10] MEDS: Digoxin 0.125 MG TABLET PO (09:06)
[2023-04-10] MEDS: Magnesium Oxide 400 MG TABLET 200 MG PO (09:06)
[2023-04-10] MEDS: Mirabegron 50 MG TAB.ER.24H PO (09:06)
[2023-04-10] MEDS: atenoloL 50 MG TABLET PO (09:07)
[2023-04-10] MEDS: Clotrimazole 1 % Cream 15 GM TUBE 1 APPL TOPICAL (09:08)
--- NOTE | 2023-04-10 10:43 | MHC.CM.PN ---
Addendum entered by Deanna Kwon 04/10/23 11:35: CM CALLED [facility] TO CONFIRM PTS DIFICID RX WOULD BE COVERED PER PHARMACISTS, THE COPAY WILL BE $10.35 PT AWARE Original Note: CM MET WITH PT AND AT BEDSIDE THEY ARE AWARE PT HAS RECOMMENDED HOME WITH SERVICES [facility] TO RESUME THEY REPORT THEY ARE ALSO WORKING WITH [employer] TO SET UP [employer] PER DISCUSSION, PT AND DO NOT WANT BLS TRANSPORT REPORTS HE HAS A TRANSPORT W/C IN THE CAR AND THE APT IS FULLY ACCESSIBLE PT WILL DC HOME TODAY WITH [facility] TO TRANSPORT
--- NOTE | 2023-04-10 11:25 | W.MHC.F2F ---
Service Date Service Date: 04/10/23 Encounter Date of encounter: 04/10/23 Reasons for Services Signs and symptoms assessed: Gross Deconditioning, Impaired Bed Mobility, Impaired Cognition, Impaired Gait Pattern, Impaired Joint ROM,Impaired Safety,Impaired Standing Balance, Impaired Transfer Ability, Impaired Trunk Control,Muscle Weakness Reason for physical therapy: home safety and mobility, therapeutic exercises, gait/transfer training, assess need for DME, ADL training and energy conservation MD Overseeing Care: Marla Bray Homebound: Leaving the home is medically contraindicated at this time without the asist of a device and/or another person due th the listed conditions above and below. Reason homebound: unsteady gait / fall risk, immunosuppression / infection risk and weakness related to hospital stay Homebound supporting statement: Bed Mobility, Transfer Training,Gait Training, Therapeutic Activities, Therapeutic Exercise,Neuro Re-education, Patient Education, Safety,Balance Certification: Based on the above findings, I certify that this patient is confined to the home and needs intermittent long-term care, physical therapy and/or speech therapy, or continues to need occupational therapy. The patient is under my care, and I have initiated the establishment of the plan of care. The patient will be followed by a physician who will periodically review the plan of care. Time Spent With Patient Time: Total time managing care of this patient today ____ minutes.
[2023-04-10 11:33] LABS: Glucose, Whole Blood 200 mg/dL (60-115)
--- NOTE | 2023-04-10 11:33 | P.DS_ITS ---
DS: Providers Provider Date of Service: 04/10/23 Date of admission: 04/07/23 09:12 Date of discharge: 04/10/23 Primary care physician: Marla Bray MD Consults: 04/06/23 14:39 Consult to Infectious Diseases Routine Consulting Provider: KARISHMA CARVER Reason for consultation: cdiff 04/06/23 15:05 Consult to Psychiatry Routine Consulting Provider: Psych Covering Reason for consultation: anxiety/depression, med recs DS: Diagnosis Discharge Diagnosis (1) Clostridium difficile infection: Status: Acute (2) MDD (major depressive disorder), recurrent episode, moderate: Status: Acute (3) Hyponatremia: Status: Acute DS: Summary Hospital Course Hospital Course: From the history and physical by the admitting hospitalist, RIOS Verdugo, 04.06.23: 72-year-old female with pertinent history of insulin-dependent diabetes mellitus, essential hypertension, paroxysmal atrial fibrillation on Xarelto, CAD, mood disorder, HFpEF, history of CVA? who initially presented to the ED on 03/30 for evaluation of malaise and weakness. Has also had current falls. She had a neck injury s/p laminectomy in December and had a prolonged stay at rehab and discharged to home. Her family brought her back to the ED for evaluation of these symptoms and reported no longer able to care for her. On arrival, patient found to have e coli UTI, sensitive to bactrim which she completed 5 day course this morning. She has been boarding in observation awaiting placement to LTC. Has had loose stool, but no watery diarrhea ongoing for about 3 months and cdiff pcr and gi panel were ordered this morning. Tox B gene positive, toxin negative. She has mild diffuse abdominal pain without nausea, vomiting, or anorexia. She is tolerating PO. Vitals stable, afebrile though patient has been hypertensive with bp 156/73 on admission. Pt also reports significant anxiety and depression, frequently stating, I need a psychiatrist or psychologist . Denies SI/HI. She has no leukocytosis. Renal function normal. Has mild hyponatremia 129 with chloride 90, all other lytes normal. Due to ongoing neck pain with recent falls, ct cervical spine had been ordered which showed degenerative changes at multiple levels with wide laminectomy from c3-c6. Head ct negative for any acute intracranial abnormality. CXR negative. Ms Keenan is a 72yo F with DM2, HTN, paroxysmal AF on rivaroxaban and s/p PPM, CAD, mood disorder, chronic HFpEF, hx CVA, and recent laminectomy in December who was awaiting SNF placement in the ED. During her ER course, she had a UTI that was treated with TMP-SMX x5d. She then developed Clostridium difficile colitis + hypoNa and thus was admitted to the hospitalist service. Colitis resolved with fidoxamcin and she did not have features of severe infection. Hyponatremia was due to hypovolemia from diarrhea and improved after IV normal saline repletion. She was seen by Psychiatry for worsening anxiety/depression without SI. Escitalopram was cross-tapered to venlafaxine and lorazepam was replaced with clonazepam. She worked with Physical Therapy and her functional mobility recovered to the point where she was discharged home with VNA/PT services. Time Attestation Discharge coordination time: Greater than 30 minutes Quality: Safe Use of Opioids Does Pt have an Active Cancer Diagnosis on the Problem List?: No Quality: Stroke Does the patient have a stroke diagnosis?: No Physical Exam Vital Signs: Vital Signs: Last Vital Signs Temp 97.6 F 04/10/23 07:40 Pulse 70 04/10/23 07:40 Resp 20 04/10/23 07:40 BP 130/70 04/10/23 07:40 Pulse Ox 96 04/10/23 07:40 O2 Del Method Room Air 04/10/23 07:40 O2 Flow Rate 1 03/30/23 13:03 BMI result Body Mass Index 34.5 Gen: in no acute distress HEENT: sclera anicteric, moist mucus membranes Neck: supple Lungs: clear to auscultation bilaterally Heart: regular rate and rhythm, no murmurs Abd: soft, non-tender, non-distended Ext: no edema Skin: warm/well-perfused Neuro: alert and oriented x3, no focal findings Psych: appropriate affect DS: Data Data Completed and Pending Completed studies during hospitalization [Text1]: Laboratory Results WBC 8.2 X10*3/uL (4.8-10.8) 04/08/23 06:35 RBC 4.57 X10*6/uL (4.20-5.50) 04/08/23 06:35 Hgb 12.6 g/dl (12.0-16.0) 04/08/23 06:35 Hct 38.4 % (37.0-47.0) 04/08/23 06:35 MCV 84.0 fL (80.0-98.0) 04/08/23 06:35 MCH 27.6 pg (27.0-33.0) 04/08/23 06:35 MCHC 32.8 g/dl (31.0-35.0) 04/08/23 06:35 RDW 15.9 % (11.0-16.0) 04/08/23 06:35 Plt Count 350 X10*3/uL (160-400) 04/08/23 06:35 MPV 8.7 fL (9.4-12.3) L 04/08/23 06:35 Immature Gran % (Auto) 0.5 % (0.0-0.4) H 04/07/23 05:53 Neut % (Auto) 60.6 % (45-73) 04/07/23 05:53 Lymph % (Auto) 25.7 % (20-40) 04/07/23 05:53 [place] % (Auto) 9.6 % (2-11) 04/07/23 05:53 Eos % (Auto) 2.5 % (0-4) 04/07/23 05:53 Baso % (Auto) 1.1 % (0-2) 04/07/23 05:53 Lymph # (Auto) 2.0 X10*3/uL (1.2-4.9) 04/07/23 05:53 [place] # (Auto) 0.8 X10*3/uL (0.1-1.2) 04/07/23 05:53 Eos # (Auto) 0.2 X10*3/uL (0.0-0.4) 04/07/23 05:53 Baso # (Auto) 0.1 X10*3/uL (0.0-0.2) 04/07/23 05:53 Abs Immat Gran (auto) 0.04 X10*3/uL (0.00-0.03) H 04/07/23 05:53 Absolute Neuts (auto) 4.8 x10*3/uL (2.0-8.3) 04/07/23 05:53 Absolute Nucleated RBC 0.000 X10*3/uL (0.0-0.012) 04/08/23 06:35 Nucleated RBC % (auto) 0.0 /100WBC (0.0-0.2) 04/08/23 06:35 Hold Purple Top SEE NOTE 04/07/23 15:06 Sodium 131 mmol/L (135-145) L 04/08/23 06:35 Potassium 4.0 mmol/L (3.3-5.1) 04/08/23 06:35 Chloride 96 mmol/L (96-108) 04/08/23 06:35 Carbon Dioxide 27 mmol/L (22-29) 04/08/23 06:35 Anion Gap 12 (12-20) 04/08/23 06:35 BUN 17 mg/dL (9-16) H 04/08/23 06:35 Creatinine 0.71 mg/dL (0.5-1.4) 04/08/23 06:35 Estim Creat Clear Calc 73.3 04/08/23 06:35 Estimated GFR > 60 04/08/23 06:35 POC Glucose 200 mg/dL (60-115) H 04/10/23 11:29 Random Glucose 117 mg/dL (60-115) H 04/08/23 06:35 Lactic Acid 0.9 mmol/L (0.5-2.0) 03/30/23 13:27 Calcium 9.3 mg/dL (8.4-10.2) 04/08/23 06:35 Total Bilirubin 0.5 mg/dL (0.0-1.0) 04/06/23 05:59 AST 24 U/L (5-31) 04/06/23 05:59 ALT 12 U/L (0-31) 04/06/23 05:59 Alkaline Phosphatase 62 U/L (39-117) 04/06/23 05:59 Troponin I High Sens 34.1 ng/L (<3.5-17.0) H 03/30/23 16:34 C-Reactive Protein 0.23 mg/dL (< or = 0.50) 04/07/23 05:53 B-Natriuretic Peptide 310 pg/mL (<100) H 03/30/23 13:27 Total Protein 7.3 g/dL (6.5-8.0) 04/06/23 05:59 Albumin 3.8 g/dL (3.5-5.0) 04/06/23 05:59 Hold Yellow Top See Note 04/07/23 15:06 Urine Color Yellow 03/30/23 15:23 Urine Appearance Clear 03/30/23 15:23 Urine pH 6.0 (5.0-9.0) 03/30/23 15:23 Ur Specific [place] 1.010 (1.005-1.025) 03/30/23 15: Urine Protein Negative mg/dL (Neg-Trace) 03/30/23 15: Urine Glucose (UA) 500 mg/dL (Negative) H 03/30/23 15: Urine Ketones Negative mg/dL (Negative) 03/30/23 15: Urine Blood Negative (Negative) 03/30/23 15: Urine Nitrite Negative (Negative) 03/30/23 15:23 Ur Leukocyte Esterase Small (1+) (Negative) H 03/30/23 15: Urine RBC 6-10 /HPF (0-2) H 03/30/23 15:23 Urine WBC 6-10 /HPF (0-5) H 03/30/23 15:23 Ur Squamous Epith Cells 3-5 /HPF (0-2) 03/30/23 15: Urine Bacteria 4+ (None Seen) 03/30/23 15: Hyaline Casts 0-2 /LPF (0-2) 03/30/23 15:23 Stl C. cayetanensis PCR Not Detected (Not Detect.) 04/06/23 11:22 Stool Rotavirus A PCR Not Detected (Not Detect.) 04/06/23 11:22 Stl Adenov F 40/41 PCR Not Detected (Not Detect.) 04/06/23 11:22 Stool Astrovirus (PCR) Not Detected (Not Detect.) 04/06/23 11:22 Stool Campylobacter PCR Not Detected (Not Detect.) 04/06/23 11:22 Stool Cryptosporidium PCR Not Detected (Not Detect.) 04/06/23 11:22 Stl Sh Tox Pr E STEC PCR Not Detected (Not Detect.) 04/06/23 11:22 Stool E coli O157 PCR Not applicable (Not Detect.) 04/06/23 11:22 Stl Enterotoxigenic E PCR Not Detected (Not Detect.) 04/06/23 11:22 Stool EPEC (PCR) Not Detected (Not Detect.) 04/06/23 11:22 Stool EAEC (PCR) Not Detected (Not Detect.) 04/06/23 11:22 Stl E. histolytica PCR Not Detected (Not Detect.) 04/06/23 11:22 Stool Giardia Lamblia PCR Not Detected (Not Detect.) 04/06/23 11:22 Stl P. shigelloides PCR Not Detected (Not Detect.) 04/06/23 11:22 Stool Salmonella PCR Not Detected (Not Detect.) 04/06/23 11:22 Stool Sapovirus (PCR) Not Detected (Not Detect.) 04/06/23 11:22 Stl Shigella/EIEC PCR Not Detected (Not Detect.) 04/06/23 11:22 St Y.enterocolitica PCR Not Detected (Not Detect.) 04/06/23 11:22 Stool Vibrio (PCR) Not Detected (Not Detect.) 04/06/23 11:22 Stl Vibrio cholerae PCR Not Detected (Not Detect.) 04/06/23 11:22 Stl Norovirus GI/GII PCR Not Detected (Not Detect.) 04/06/23 11:22 C. difficile Tox B Gene POSITIVE (Negative) A* 04/06/23 11:21 C. difficile Toxin A&B Negative (Negative) 04/06/23 11:21 C. difficile Interpret SEE NOTE 04/06/23 11:21 COVID-19 (SAPPHIRE) Negative (Negative) 03/30/23 15:23 COVID-19 Clin Com See Note 03/30/23 15:23 Influenza Type A (PCR) NEGATIVE (Negative) 03/30/23 15:23 Influenza Type B (PCR) NEGATIVE (Negative) 03/30/23 15:23 RSV RNA Qual (PCR) NEGATIVE (Negative) 03/30/23 15:23 SARS-CoV-2 RNA (RT-PCR) NEGATIVE (Negative) 03/30/23 15:23 Impressions Chest X-Ray 03/30/23 14:47 IMPRESSION: No acute cardiopulmonary process. Cervical Spine CT 04/02/23 14:21 IMPRESSION: 1. No acute intracranial process seen. 2. No acute fracture, dislocation or subluxation seen in cervical spine. 3. There are degenerative disc changes with spondylosis C3-C4, C4-C5, C6-C7 and C7-T1 disc levels. Wide laminectomy from C3 through C6 vertebra. Head CT 04/02/23 14:21 IMPRESSION: 1. No acute intracranial process seen. 2. No acute fracture, dislocation or subluxation seen in cervical spine. 3. There are degenerative disc changes with spondylosis C3-C4, C4-C5, C6-C7 and C7-T1 disc levels. Wide laminectomy from C3 through C6 vertebra. Discharge Plan Discharge Anticipated Discharge Date/Time: 04/10/23 14:17 Patient Disposition: Home Health Service Discharge Diagnosis: Clostridium difficile colitis depression Referrals: [facility] [Outside] - 3-5 Days Marla Henderson MD [Primary Care Provider] - 1 Week Discharge Medications: New venlafaxine 75 mg Capsule,Extended Release 24hr 75 mg PO DAILY Qty: 30 0RF clonazepam 0.5 mg Tablet 0.5 mg PO BID Qty: 60 0RF losartan 25 mg Tablet 25 mg PO DAILY Qty: 30 0RF Protocol: Hold for SBP< HOLD for SBP < : 90 Dificid 200 mg tablet 200 mg PO Q12H Qty: 12 0RF Continued (DME) blood-glucose meter [OneTouch Verio Meter] Misc See Rx Instructions .Route Qty: 1 0RF Rx Instructions: As directed acetaminophen 325 mg tablet 650 mg PO Q6H PRN (Reason: Pain (Scale Score 1-3)) Qty: 60 0RF atenolol 50 mg tablet 50 mg PO BID 90 Days Qty: 180 1RF Protocol: Hold for SBP/HR < HOLD for SBP < : 90 HOLD for HR < : 60 (DME) OneTouch Verio test strips Strip See Rx Instructions .Route Qty: 100 5RF Rx Instructions: Use 1 test strip twice a day cyanocobalamin (vitamin B-12) 1,000 mcg tablet 1,000 mcg PO DAILY 90 Days Qty: 90 3RF docusate sodium [DOK] 100 mg capsule 100 mg PO BID PRN (Reason: constipation) 90 Days Qty: 180 2RF Trulicity 3 mg/0.5 mL pen injector 3 mg subcut QWEEK 90 Days Qty: 6.5 1RF Jardiance 25 mg tablet 25 mg PO DAILY 90 Days Qty: 90 3RF estradiol 0.01 % (0.1 mg/gram) cream 1 appl vaginal 3XW Qty: 42.5 0RF fenofibrate 160 mg tablet 160 mg PO DAILY 90 Days Qty: 90 3RF fluticasone propionate 50 mcg/actuation spray,suspension 1 spray intranasal DAILY 90 Days Qty: 16 3RF Rx Instructions: administer into each nostril furosemide 40 mg tablet 40 mg PO DAILY 30 Days Qty: 30 1RF hydroxychloroquine [Plaquenil] 200 mg tablet 200 mg PO BID Qty: 180 3RF (DME) lancets Misc See Rx Instructions .Route Qty: 100 3RF Rx Instructions: USe 1 lancet once a day ketoconazole 2 % cream 1 appl topical BID 30 Days Qty: 30 0RF loratadine 10 mg tablet 10 mg PO DAILY 90 Days Qty: 90 0RF magnesium 200 mg tablet 200 mg PO DAILY 90 Days Qty: 90 5RF metformin 1,000 mg tablet 1,000 mg PO BIDWM 90 Days Qty: 180 1RF Myrbetriq 50 mg tablet extended release 24 hr 50 mg PO DAILY 90 Days Qty: 90 1RF nystatin 100,000 unit/gram powder 1 appl topical DAILY 15 Days Qty: 60 0RF omeprazole 40 mg capsule,delayed release(DR/EC) 40 mg PO DAILY@0630 90 Days Qty: 90 1RF riboflavin (vitamin B2) 400 mg tablet 400 mg PO DAILY Qty: 30 0RF Xarelto 20 mg tablet 20 mg PO DAILY@1700 90 Days Qty: 90 1RF ropinirole 0.25 mg tablet 0.5 mg PO BEDTIME 90 Days Qty: 180 1RF rosuvastatin [Crestor] 40 mg tablet 40 mg PO BEDTIME 90 Days Qty: 90 1RF sennosides [senna] 8.6 mg tablet 17.2 mg PO BEDTIME PRN (Reason: Constipation) 90 Days Qty: 90 1RF thiamine HCl (vitamin B1) 100 mg tablet 100 mg PO DAILY 90 Days Qty: 90 1RF baclofen 10 mg tablet 10 mg PO TID PRN (Reason: muscle spasm) 30 Days Qty: 90 1RF seabbijoao-cirbvvilwbdjt-dhxu 50-325-40 mg tablet 1 tab PO Q4H PRN (Reason: Headache) 4 Days Qty: 24 0RF oxycodone 5 mg tablet 5 mg PO Q6H PRN (Reason: pain) 30 Days Qty: 90 0RF betamethasone dipropionate 0.05 % cream 1 appl topical DAILY PRN (Reason: Rash) bisacodyl 5 mg tablet,delayed release (DR/EC) 5 mg PO BEDTIME digoxin 125 mcg (0.125 mg) tablet 125 mcg PO DAILY gabapentin 600 mg tablet 400 mg PO BID meclizine 12.5 mg tablet 12.5 mg PO BID PRN (Reason: Dizziness Or Vertigo) polyethylene glycol 3350 [Miralax] 17 gram/dose powder 17 g PO DAILY multivitamin Tablet 1 tab PO DAILY fesoterodine [Toviaz] 8 mg tablet extended release 24 hr 8 mg PO DAILY ezetimibe [Zetia] 10 mg tablet 10 mg PO DAILY ondansetron HCl 4 mg tablet 4 mg PO Q6H insulin degludec [Tresiba FlexTouch U-100] 100 unit/mL (3 mL) insulin pen 15 unit subcut BEDTIME Discontinued lorazepam 0.5 mg tablet 0.5 mg PO DAILY PRN (Reason: Anxiety) escitalopram oxalate [Lexapro] 10 mg tablet 20 mg PO DAILY Discharge Orders: Discharge Order (Routine); Ordered 04/10/23 Ordered By: Tea Bravo Diet: Advance to usual diet Activity on Discharge: As tolerated Stand Alone Forms: Patient Portal Discharge page Care Plan Goals: resolution of C. difficile colitis mental health Health Concerns: Clostridium difficile colitis depression Plan of Treatment: take fidoxamicin 200 mg twice daily for 6 days stop escitalopram; change to venlafaxine stop lorazepam; change to clonazepam Please follow up with your primary care doctor within 1 week. Return to the hospital if you experience recurrent or worsening symptoms. Assessment: See Discharge Summary.
[2023-04-10] MEDS: Fluticasone Propionate Nasal 16 GM SPRAY 1 SPRAY NOSTRIL-B (12:17)
[2023-04-10] MEDS: Insulin Lispro 100 UNIT/ML 3 ML VIAL SUBCUT (12:18)
[2023-04-10] MEDS: Nystatin Powder 15 GM BOTTLE 1 APPL TOPICAL (12:20)
== END 2023-04-10 12:40 | disposition home health service (06) | DRG 372 ==
LOC: HO.ED 03-31 17:15 → HO.EDOVER 04-06 14:42 → HO.S3 04-07 09:10
PROVIDERS: Internal Medicine; Physician Assistant; Physician Assistant Medical; Student in an Organized Health Care Education/Training Program; Admitting Provider Physician Assistant; Emergency Provider Emergency Medicine; PCP Internal Medicine; Visit Provider Family Medicine
DX: A04.72 Enterocolitis due to Clostridium difficile, not specified as recurrent (principal); E87.1 Hypo-osmolality and hyponatremia; I69.351 Hemiplegia and hemiparesis following cerebral infarction affecting right dominant side; N39.0 Urinary tract infection, site not specified; I50.32 Chronic diastolic (congestive) heart failure; F33.1 Major depressive disorder, recurrent, moderate; I25.10 Atherosclerotic heart disease of native coronary artery without angina pectoris; M54.2 Cervicalgia; I48.0 Paroxysmal atrial fibrillation; N32.81 Overactive bladder; I11.0 Hypertensive heart disease with heart failure; G25.81 Restless legs syndrome; B96.20 Unspecified Escherichia coli [E. coli] as the cause of diseases classified elsewhere; F41.9 Anxiety disorder, unspecified; Z95.0 Presence of cardiac pacemaker; G89.29 Other chronic pain; I69.322 Dysarthria following cerebral infarction; I69.393 Ataxia following cerebral infarction; E11.42 Type 2 diabetes mellitus with diabetic polyneuropathy; Z11.52 Encounter for screening for COVID-19; Z20.822 Contact with and (suspected) exposure to COVID-19; Z20.828 Contact with and (suspected) exposure to other viral communicable diseases; Z87.891 Personal history of nicotine dependence; Z79.4 Long term (current) use of insulin; Z79.01 Long term (current) use of anticoagulants; Z79.51 Long term (current) use of inhaled steroids; Z79.84 Long term (current) use of oral hypoglycemic drugs; Z79.85 Long-term (current) use of injectable non-insulin antidiabetic drugs; Z79.899 Other long term (current) drug therapy
CPT/HCPCS: 0241U; 36415; 70450; 71045; 72125; 73140; 80048; 80053; 81001; 82947; 83605; 83880; 84295; 84484; 85025; 85027; 86140; 87086; 87088; 87186; 87324; 87493; 87507; 87635; 92526; 93005; 97116; 97162; 99221; 99285; J1650

== ENCOUNTER → 2023-04-07 09:12 | Outpatient (BNV) | payer MEDICARE, SELFPAY | PROVIDERS: Admitting Provider Physician Assistant; Emergency Provider Emergency Medicine; PCP Internal Medicine; Visit Provider Social Worker | DX: F33.1 Major depressive disorder, recurrent, moderate (principal) | CPT/HCPCS: 99231; 99232 ==

== ENCOUNTER → 2023-04-07 09:12 | Outpatient (BNV) | payer MEDICARE, SELFPAY | PROVIDERS: Admitting Provider Physician Assistant; Emergency Provider Emergency Medicine; PCP Internal Medicine; Visit Provider Family Medicine | DX: A49.8 Other bacterial infections of unspecified site (principal); E11.65 Type 2 diabetes mellitus with hyperglycemia | CPT/HCPCS: 99223; 99232; 99239; G0180 ==

== ENCOUNTER 2023-04-14 10:04 | Outpatient (AMB) | payer MEDICARE, SELFPAY ==
--- NOTE | 2023-04-14 10:05 | A.OFFVIS_ITS ---
Intake Intake Visit Reasons: 6m/OAB Intake Note: Patient presents today for a follow-up on OAB via telephone:? medictaions: Fesoteridone & Myrbetriq Allergies to Antibiotic- Sulfa Blood thinners: Xarelto & Furosemide Post Void Residual: 0 mL [place] Required: No Accompanied by: Spouse Allergies morphine [Morphine] Allergy (Severe, Verified 04/23/23 12:11) ITCHING, hives cefdinir Allergy (Intermediate, Verified 04/23/23 12:11) hives sulfamethoxazole Allergy (Intermediate, Verified 04/23/23 12:11) RASH trimethoprim Allergy (Intermediate, Verified 04/23/23 12:11) RASH duloxetine Adverse Reaction (Severe, Verified 04/23/23 12:11) altered behavior HPI HPI Comments History of Present Illness Details Missy is a 72-year-old female who presents today to the office for a follow-up. 04/14/2023? She is followed today for OAB and UTI symptoms. Patient states that she was hospitalized recently. I have reviewed the hospital records. Patient has had urine culture on 03/30/2023 which revealed E. Coli. She states that the Myrbetriq is helping with her overactive bladder symptoms; however she reports intermittent urinary leakage prior getting up to the bathroom due to her limited mobility. 04/14/2023: Plan: Follow-up in 4 months. Will continue monitoring. Continue Myrbetriq 50 mg. Estrace vaginal cream PFS Medical History (HFpEF) heart failure with preserved ejection fraction Mild recurrent major depression Hyperlipidemia LDL goal <70 Post-dural puncture headache PONV (postoperative nausea and vomiting) Positive occult stool blood test [place] Headache Anemia Acute upper GI bleed Diabetic polyneuropathy COVID-19 Thiamine deficiency Hand pain CVA (cerebral vascular accident) Head injury Left shoulder pain Left knee pain Left hip pain Left hand pain Dizziness Diabetic neuropathy Diabetes type 2, uncontrolled Type 2 diabetes mellitus with other diabetic kidney complication Proteinuria Type 2 diabetes mellitus with diabetic polyneuropathy Dyslipidemia Obesity due to excess calories Other and unspecified hyperlipidemia Chronic heart failure with preserved ejection fraction (HFpEF) Anemia Thrombocytosis Pulmonary hypertension Ischemic stroke Paroxysmal atrial fibrillation Atherosclerotic cardiovascular disease Hospital discharge follow-up Thrombus Urge urinary incontinence Iron deficiency anemia Pure hypercholesterolemia Essential hypertension Diabetes mellitus Lumbar degenerative disc disease Surgical History S/P laminectomy S/P cardiac pacemaker procedure S/P insertion of spinal cord stimulator H/O colonoscopy History of Mohs micrographic surgery for skin cancer Hx of cervical spine surgery History of partial hysterectomy Hx of cardiac cath Family History Father Rectal cancer Hypertension Arthritis of knee CVD (cardiovascular disease) Mother Hypertension CVD (cardiovascular disease) Myocardial infarction Diabetes Social History Household Members: Spouse Housing: Apartment Are you a primary client care representative to a significant other at home: No Do you presently have visiting nurse or other home services: No Alcohol intake: never Comment: na Patient Tobacco Use Status: Former Tobacco user Quit Date: 1993 Tobacco use type: Cigarette e-Cigarette/Vaping Use: Never Used Second Hand Smoke Exposure: No Advance Directives Date on File: 07/17/20 service: No Current occupational status: retired Current occupation: Lt handed Cognitive needs: Yes (scodor/walker) Hearing needs: No Vision needs: Yes (glasses) Review of Systems Const All systems reviewed & are unremarkable except as noted in HPI and below Eyes Reports no additional complaints, Denies change in vision and Denies other visual disturbances ENT Reports neck pain Card Denies chest pain at rest, Denies chest pain with activity, Denies edema, Denies irregular heart rhythm, Denies claudication, Denies dyspnea, Denies dyspnea on exertion, Denies orthopnea, Denies paroxysmal nocturnal dyspnea and Denies slow heart rate Resp Denies cough, Denies dyspnea and Denies dyspnea on exertion GI Denies abdominal pain, Denies change in bowel habits, Denies excessive flatus, Denies nausea and Denies vomiting Denies urinary incontinence, Denies urinary hesitancy and Denies urinary urgency Musc Denies abnormal gait, Reports back pain, Denies atrophy, Denies deformity, Reports arthralgias, Denies limited range of motion, Reports neck pain and Reports stiffness Skin/Breast Denies bleeding lesions, Denies changing lesions and Denies rash Neuro Denies abnormal gait and Denies lack of coordination Assessment & Plan Assessment & Plan (1) OAB (overactive bladder): Code(s): N32.81 - Overactive bladder (2) Urge incontinence of urine: Code(s): N39.41 - Urge incontinence Plan Follow-up in 4 months. Orders: Orders AMB Post Void Residual by ultrasound 04/14/23 N39.8 - Other specified disorders of urinary system Patient Instructions: The patient had an opportunity to ask questions regarding treatment plan. All questions were answered. Imaging, Laboratory studies and physical exam results were discussed and reviewed in detail. No major barriers to understanding were identified. The patient expressed understanding and agreement with the above treatment plan. The patient is aware they should contact our office by phone for worsening of their current condition or the appearance of new symptoms. Compliance is encouraged with any medications and followup testing that is ordered. It is a privilege to be allowed the opportunity to participate in the urologic care of your patient. If you have any questions or concerns regarding treatment for the above conditions please do not hesitate to contact me. The office telephone contact is [phone]. This note is constructed in part using voice recognition software. While every effort has been made to ensure accuracy ground school instructor errors may have been included. Yours sincerely, Victoriano Ngo MD Coding Level of Care Code Est Pt Level 3 (79649) Diagnoses OAB (overactive bladder) N32.81 Urge incontinence of urine N39.41
== END 2023-04-14 10:59 | disposition home or self-care (01) ==
PROVIDERS: PCP Internal Medicine; Visit Provider Urology
DX: N32.81 Overactive bladder (principal); N39.41 Urge incontinence
CPT/HCPCS: 99213

== ENCOUNTER → 2023-04-14 10:04 | Outpatient (BNVA) | payer MEDICARE, SELFPAY | PROVIDERS: PCP Internal Medicine; Visit Provider Urology | DX: N32.81 Overactive bladder (principal); N39.41 Urge incontinence; E11.29 Type 2 diabetes mellitus with other diabetic kidney complication | CPT/HCPCS: 99212 ==

== ENCOUNTER → 2023-04-16 09:43 | Outpatient (BNVA) | payer MEDICARE, SELFPAY | PROVIDERS: PCP Internal Medicine; Visit Provider Anesthesiology | DX: M17.11 Unilateral primary osteoarthritis, right knee (principal); M47.812 Spondylosis without myelopathy or radiculopathy, cervical region; M48.00 Spinal stenosis, site unspecified; M25.561 Pain in right knee | CPT/HCPCS: 99212 ==

== ENCOUNTER 2023-04-16 09:44 | Outpatient (AMB) | payer MEDICARE, SELFPAY ==
--- NOTE | 2023-04-16 09:45 | A.OFFVIS_ITS ---
Intake Intake Visit Reasons: Follow Up/Back Pain/confirmed Allergies morphine [Morphine] Allergy (Severe, Verified 04/16/23 09:48) ITCHING, hives cefdinir Allergy (Intermediate, Verified 04/16/23 09:48) hives sulfamethoxazole Allergy (Intermediate, Verified 04/16/23 09:48) RASH trimethoprim Allergy (Intermediate, Verified 04/16/23 09:48) RASH duloxetine Adverse Reaction (Severe, Verified 04/16/23 09:48) altered behavior HPI HPI Comments History of Present Illness Details Misys is in my office today with multiple complaints. She reported today that 4 months ago she fell and broke up vertebra in her neck. She was placed in stiff cervical collar and she had to be admitted to rehab facility. She also complains on severe pain and right lower extremity. She reported that previously she was examined by Dr. Nelson the Orthopedic surgeon from [facility]. They agreed to go for right total knee replacement however the patient was discovered with coronary artery problems and now she needs stents to be placed. She is waiting for stent placement with Cardiology. While in rehab she was not able to charge her spinal cord stimulator. Recently at home she charge her spinal cord stimulator to full charge however she does not know how to apply programs she forgot how to do that. I told her that I will give her telephone numbers of [facility] representatives so she can contact with them over the telephone and they will explained to her how to turn her machine back. It looks like that her total knee replacement is placed on the long wait , possibly years from now because if she will have stent placed it will be at least 6 months until her Plavix could be stopped. I offered her to perform diagnostic genicular nerve block. I will schedule it without sedation. Prior: . She still of this me that spinal cord stimulator fails to alleviate pain in the back although it helps pain radiating into bilateral lower extremities. She is status post Nevro spinal cord stimulator implant. She reported good results of bilateral C2-C3 C4 therapeutic medial branch block which was performed on 02/19/2022.? She reports 85% pain improvement.? She reports better neck mobility.? She states that by now the pain in the neck is back. She developed what we originally thought was post dural puncture headache a in her posterior neck with radiation into the occiput after performance of implantation of spinal cord stimulator Nevro..? We originally performed epidural blood patch on the patient however that was not effective to treat her pain.? We discussed in the past possibility to perform sphenopalatine plexus block however she reported epistaxis today and I thing this mode of treatment of her pain is risky.? [facility] Medical History (Updated 04/16/23 @ 12:27 by Lio Kinsey MD) (HFpEF) heart failure with preserved ejection fraction Mild recurrent major depression Hyperlipidemia LDL goal <70 Post-dural puncture headache PONV (postoperative nausea and vomiting) Positive occult stool blood test [place] Headache Anemia Acute upper GI bleed Diabetic polyneuropathy COVID-19 Thiamine deficiency Hand pain CVA (cerebral vascular accident) Head injury Left shoulder pain Left knee pain Left hip pain Left hand pain Dizziness Diabetic neuropathy Diabetes type 2, uncontrolled Type 2 diabetes mellitus with other diabetic kidney complication Proteinuria Type 2 diabetes mellitus with diabetic polyneuropathy Dyslipidemia Obesity due to excess calories Other and unspecified hyperlipidemia Chronic heart failure with preserved ejection fraction (HFpEF) Anemia Thrombocytosis Pulmonary hypertension Ischemic stroke Paroxysmal atrial fibrillation Atherosclerotic cardiovascular disease Hospital discharge follow-up Thrombus Urge urinary incontinence Iron deficiency anemia Pure hypercholesterolemia Essential hypertension Diabetes mellitus Lumbar degenerative disc disease Surgical History (Updated 04/06/23 @ 15:03 by RIOS Garcia) S/P laminectomy S/P cardiac pacemaker procedure S/P insertion of spinal cord stimulator H/O colonoscopy History of Mohs micrographic surgery for skin cancer Hx of cervical spine surgery History of partial hysterectomy Hx of cardiac cath Family History Father Rectal cancer Hypertension Arthritis of knee CVD (cardiovascular disease) Mother Hypertension CVD (cardiovascular disease) Myocardial infarction Diabetes Social History Household Members: Spouse Housing: Apartment Are you a primary home care coordinator to a significant other at home: No Do you presently have visiting nurse or other home services: No Alcohol intake: never Comment: na Patient Tobacco Use Status: Former Tobacco user Quit Date: 1993 Tobacco use type: Cigarette e-Cigarette/Vaping Use: Never Used Second Hand Smoke Exposure: No Advance Directives Date on File: 07/17/20 service: No Current occupational status: retired Current occupation: Lt handed Cognitive needs: Yes (scodor/walker) Hearing needs: No Vision needs: Yes (glasses) Review of Systems Const All systems reviewed & are unremarkable except as noted in HPI and below Physical Exam Const General: cooperative and no acute distress Orientation/consciousness: patient oriented x3 Neck Other: Axial compression and flexing backwards aggravate pain. Range of motion in the neck is limited. Pain radiates from the neck to the posterior head occipital area. Resp Effort & Inspection: normal respiratory effort, able to speak in complete sentences and no audible wheezes Neuro General: patient oriented x3 Assessment & Plan Assessment & Plan (1) Osteoarthritis of right knee: Code(s): M17.11 - Unilateral primary osteoarthritis, right knee (2) Spondylosis of cervical joint without myelopathy: Code(s): M47.812 - Spondylosis without myelopathy or radiculopathy, cervical region (3) Degenerative disc disease: (4) Spinal stenosis: Code(s): M48.00 - Spinal stenosis, site unspecified (5) Right knee pain: Code(s): M25.561 - Pain in right knee Plan Genicular nerve block on the right will be scheduled for this patient. She will contact Thuan english to help her to restart her SCS machine. With good results of the genicular nerve RFA seem to be very good idea for this patient who is facing coronary artery stent in the future. Next appointment is with me in the office after genicular nerve block on the right. Coding Level of Care Code Est Pt Level 3 (89174) Diagnoses Osteoarthritis of right knee M17.11 Spondylosis of cervical joint without myelopathy M47.812 Degenerative disc disease Spinal stenosis M48.00 Right knee pain M25.561
== END 2023-04-16 10:09 | disposition home or self-care (01) ==
PROVIDERS: PCP Internal Medicine; Visit Provider Anesthesiology
DX: M17.11 Unilateral primary osteoarthritis, right knee (principal); M47.812 Spondylosis without myelopathy or radiculopathy, cervical region; M48.00 Spinal stenosis, site unspecified; M25.561 Pain in right knee
CPT/HCPCS: 99213

== ENCOUNTER 2023-04-23 11:56 | Outpatient (AMB) | payer MEDICARE, SELFPAY ==
[2023-04-23 12:07] VITALS: BP 98/60; PULSE 70; O2SAT 95; BMI 34.7
--- NOTE | 2023-04-23 12:07 | MHC.PC.OV ---
Vital Signs 04/23/23 12:07 Height 5 ft 3 in Weight 88.904 kg BMI 34.7 BP 98/60 Blood Pressure Location Lt brachial Position Sitting Pulse 70 Pulse Source Pulse Oximeter Pulse Oximetry (%) 95 Oxygen Delivery Method Room Air Int[place] [facility] [place] Intake Note: Patient here [place] [facility] [place] UTI Airfield Operations Specialist Required: No Accompanied by: Spouse Allergies morphine [Morphine] Allergy (Severe, Verified 04/23/23 12:11) ITCHING, hives cefdinir Allergy (Intermediate, Verified 04/23/23 12:11) hives sulfamethoxazole Allergy (Intermediate, Verified 04/23/23 12:11) RASH trimethoprim Allergy (Intermediate, Verified 04/23/23 12:11) RASH duloxetine Adverse Reaction (Severe, Verified 04/23/23 12:11) altered behavior Medication List - Last Reconciled 04/23/23 by Marla Bray MD acetaminophen 650 mg (2 x 325 mg) PO Q6H PRN atenolol 50 mg See Protocol PO BID 90 days baclofen 10 mg PO TID PRN 30 days betamethasone dipropionate 0.05% 1 appl topical DAILY PRN blood sugar diagnostic (OneTouch Verio test strips) Use 1 test strip twice a day blood-glucose meter (OneTouch Verio Meter) As directed [id number]-szsy 50-325-40 mg 1 tab PO Q4H PRN 4 days cholecalciferol (vitamin D3) 50 mcg PO DAILY clonazepam 0.5 mg PO BID cyanocobalamin (vitamin B-12) 1,000 mcg PO DAILY 90 days digoxin 125 mcg PO DAILY docusate sodium (DOK) 100 mg PO BID PRN 90 days dulaglutide (Trulicity) 3 mg (0.5 mL) subcut QWEEK 90 days empagliflozin (Jardiance) 25 mg PO DAILY 90 days enoxaparin 100 mg subcut DIRECTED 7 days estradiol 0.01%(0.1mg/gram) 1 appl vaginal 3XW ezetimibe (Zetia) 10 mg PO DAILY fenofibrate 160 mg PO DAILY 90 days ferrous sulfate 325 mg PO DAILY fesoterodine ER (Toviaz) 8 mg PO DAILY fluticasone propionate 50 mcg/actuation 1 spray intranasal DAILY 90 days furosemide 40 mg PO DAILY 30 days gabapentin 400 mg PO BID hydroxychloroquine (Plaquenil) 200 mg PO BID insulin degludec (Tresiba FlexTouch U-100 insulin) 15 units subcut BEDTIME ketoconazole 2% 1 appl topical BID 30 days lancets USe 1 lancet once a day loratadine 10 mg PO DAILY 90 days magnesium 200 mg PO DAILY 90 days metformin 1,000 mg PO BIDWM 90 days mirabegron ER (Myrbetriq) 50 mg PO DAILY 90 days multivitamin 1 tab PO DAILY nystatin 1 appl topical DAILY 15 days omeprazole 40 mg PO DAILY@0630 90 days oxycodone 5 mg PO Q6H PRN 30 days riboflavin (vitamin B2) 400 mg PO DAILY rivaroxaban (Xarelto) 20 mg PO DAILY@1700 90 days ropinirole 0.5 mg (2 x 0.25 mg) PO BEDTIME 90 days rosuvastatin (Crestor) 40 mg PO BEDTIME 90 days sennosides (senna) 17.2 mg (2 x 8.6 mg) PO BEDTIME PRN 90 days thiamine HCl (vitamin B1) 100 mg PO DAILY 90 days venlafaxine ER 75 mg PO DAILY Tobacco use date assessed: 10/21/22 Fall risk assessment: 1 Fall in past year Last assessed Fall Risk: 04/23/23 HPI HPI Comments History of Present Illness Details This is a 72-year-old female with diabetes mellitus type 2 on long-term current use of insulin, congestive heart failure with preserved ejection fraction, paroxysmal atrial fibrillation, hypertension and moderate major depression that comes today as a hospital discharge follow-up with discharge date 04/10/2023 due to a UTI that was treated with Bactrim. Then developed C diff colitis secondary to antibiotic and was hospitalized for that matter. She was treated with fidoxamicin and resolved. Developed hyponatremia which resolved with IV normal saline. Due to depression with anxiety psychiatry was consulted and a change escitalopram to venlafaxine. They also changed lorazepam to clonazepam for anxiety. Last A1c was 6.3% in 03/26/2023. On admission blood pressure was elevated but now blood pressure is low and I will discontinue losartan. On chronic anticoagulation for atrial fibrillation and denies any active bleeding. Denies any weight gain or leg swelling and congestive heart failure has a preserved ejection fraction. Accompanied by . Currently in a wheelchair due to bilateral leg weakness and gait instability. [facility] Medical History (HFpEF) heart failure with preserved ejection fraction Mild recurrent major depression Hyperlipidemia LDL goal <70 Post-dural puncture headache PONV (postoperative nausea and vomiting) Positive occult stool blood test [place] Headache Anemia Acute upper GI bleed Diabetic polyneuropathy COVID-19 Thiamine deficiency Hand pain CVA (cerebral vascular accident) Head injury Left shoulder pain Left knee pain Left hip pain Left hand pain Dizziness Diabetic neuropathy Diabetes type 2, uncontrolled Type 2 diabetes mellitus with other diabetic kidney complication Proteinuria Type 2 diabetes mellitus with diabetic polyneuropathy Dyslipidemia Obesity due to excess calories Other and unspecified hyperlipidemia Chronic heart failure with preserved ejection fraction (HFpEF) Anemia Thrombocytosis Pulmonary hypertension Ischemic stroke Paroxysmal atrial fibrillation Atherosclerotic cardiovascular disease Hospital discharge follow-up Thrombus Urge urinary incontinence Iron deficiency anemia Pure hypercholesterolemia Essential hypertension Diabetes mellitus Lumbar degenerative disc disease Surgical History S/P laminectomy S/P cardiac pacemaker procedure S/P insertion of spinal cord stimulator H/O colonoscopy History of Mohs micrographic surgery for skin cancer Hx of cervical spine surgery History of partial hysterectomy Hx of cardiac cath Family History Father Rectal cancer Hypertension Arthritis of knee CVD (cardiovascular disease) Mother Hypertension CVD (cardiovascular disease) Myocardial infarction Diabetes Social History Household Members: Spouse Housing: Apartment Are you a primary manager career to a significant other at home: No Do you presently have visiting nurse or other home services: No Alcohol intake: never Comment: na Patient Tobacco Use Status: Former Tobacco user Quit Date: 1993 Tobacco use type: Cigarette e-Cigarette/Vaping Use: Never Used Second Hand Smoke Exposure: No Advance Directives Date on File: 07/17/20 service: No Current occupational status: retired Current occupation: Lt handed Cognitive needs: Yes (scodor/walker) Hearing needs: No Vision needs: Yes (glasses) Questionnaire Thrive Questionnaire Date Thrive assessed: 04/07/23 ALY-7 AMB Questionnaire ALY-7 Date ALY - 7 assessed: 05/30/22 Source: Developed by Darren Bobbyet B.W. Jostin, Brenden Zhang and colleagues, with an educational norma from [employer]. Review of Systems Const All systems reviewed & are unremarkable except as noted in HPI and below Eyes Reports no additional complaints, Denies change in vision and Denies other visual disturbances Card Denies chest pain at rest, Denies chest pain with activity, Denies edema, Denies irregular heart rhythm, Denies claudication, Denies dyspnea, Denies dyspnea on exertion, Denies orthopnea, Denies paroxysmal nocturnal dyspnea and Denies slow heart rate Resp Denies cough, Denies dyspnea and Denies dyspnea on exertion GI Denies abdominal pain, Denies change in bowel habits, Denies excessive flatus, Denies nausea and Denies vomiting Denies urinary incontinence, Denies urinary hesitancy and Denies urinary urgency Musc Denies abnormal gait, Denies atrophy, Denies deformity and Denies limited range of motion Skin/Breast Denies bleeding lesions, Denies changing lesions and Denies rash Neuro Denies abnormal gait and Denies lack of coordination Psych Reports abnormal sleep pattern, Reports anxiety and Reports depression Physical exam (Primary Care) Vital Signs: Last Vital Signs Pulse 70 04/23/23 12:07 BP 98/60 04/23/23 12:07 Pulse Ox 95 04/23/23 12:07 Oxygen Delivery Method Room Air 04/23/23 12:07 BMI result Body Mass Index 34.7 Tobacco/Smoking Status: Tobacco use Status Tobacco use date assessed 10/21/22 04/23/23 12:29 Patient Tobacco Use Status Former Tobacco user 04/23/23 12:29 Tobacco use type Cigarette 04/23/23 12:29 e-Cigarette/Vaping Use Never Used 04/23/23 12:29 Thrive Assessment: Date of Thrive Assessment Date Thrive assessed 04/07/23 04/23/23 12:29 Const Limitations: wheelchair Eyes General: appearance normal, both eyes and all related structures Eyelids: Yes eyelids normal Conjunctivae: conjunctivae normal Neck Neck: Yes normal visual inspection and Yes supple Resp Effort & Inspection: normal respiratory effort Auscultation: clear to auscultation bilaterally Cardio Jugular venous distension: no JVD Rate: regular rate Rhythm: regular rhythm Heart sounds: S1 normal heart sound present and S2 normal heart sound present Psych Appearance: grossly normal Assessment and Plan Assessment & Plan (1) Hospital discharge follow-up: Code(s): Z09 - Encounter for follow-up examination after completed treatment for conditions other than malignant neoplasm Plan: Discharge date 04/10/2023. Had UTI treated with Bactrim and develop C diff which resolved with treatment. Develop hyponatremia which resolved with IV normal saline. Psych was consulted and changed her medications. Feels markedly improved. (2) Clostridium difficile infection: Code(s): A49.8 - Other bacterial infections of unspecified site Plan: Resolved with treatment. (3) Essential hypertension: Code(s): I10 - Essential (primary) hypertension Plan: Continue atenolol. Discontinue losartan. Blood pressure goal is equal or less than 130/80 but above 90/60.. (4) MDD (major depressive disorder), recurrent episode, moderate: Code(s): F33.1 - Major depressive disorder, recurrent, moderate Plan: Continue venlafaxine. (5) Paroxysmal atrial fibrillation: Code(s): I48.0 - Paroxysmal atrial fibrillation Plan: Continue chronic anticoagulation. The goal is heart rate control. (6) Chronic heart failure with preserved ejection fraction (HFpEF): Code(s): I50.32 - Chronic diastolic (congestive) heart failure Plan: Use diuretics as needed. The goal is to not gain 5 lb in a week. (7) Diabetes mellitus: Code(s): E11.9 - Type 2 diabetes mellitus without complications Qualifiers: Diabetes mellitus complication status: with hyperglycemia Diabetes mellitus retirement insulin use: with long term care phlebotomist use Diabetes mellitus type: type 2 Qualified Code(s): E11.65 - Type 2 diabetes mellitus with hyperglycemia; Z79.4 - buttermaker (current) use of insulin Plan: Continue insulin. A1c goal is equal or less than 7%. Orders: Orders Lipid Panel 4 Months E78.5 - Hyperlipidemia, unspecified Microalbumin, Random (w Creat) 4 Months E11.9 - Type 2 diabetes mellitus without complications Vitamin D 25-OH Total 4 Months E55.9 - Vitamin D deficiency, unspecified Comprehensive Dorena. Panel Fast 4 Months I50.32 - Chronic diastolic (congestive) heart failure NT-proBNP 4 Months I50.32 - Chronic diastolic (congestive) heart failure Coding Level of Care Code TCM Mod MDM <= 14 Days Diagnoses Hospital discharge follow-up Z09 Clostridium difficile infection A49.8 Essential hypertension I10 MDD (major depressive disorder), recurrent episode, moderate F33.1 Paroxysmal atrial fibrillation I48.0 Chronic heart failure with preserved ejection fraction (HFpEF) I50.32 Type 2 diabetes mellitus with hyperglycemia, with long-term current use of insulin E11.65; Z79.4 Diabetes mellitus complication status: with hyperglycemia Diabetes mellitus long term care phlebotomist insulin use: with long term care phlebotomist use Diabetes mellitus type: type 2 Time Spent (min) 28
== END 2023-04-23 12:51 | disposition home or self-care (01) ==
PROVIDERS: PCP Internal Medicine; Visit Provider Physician Assistant
DX: A49.8 Other bacterial infections of unspecified site (principal); I11.0 Hypertensive heart disease with heart failure; I50.32 Chronic diastolic (congestive) heart failure; F33.1 Major depressive disorder, recurrent, moderate; I48.0 Paroxysmal atrial fibrillation; E11.65 Type 2 diabetes mellitus with hyperglycemia; Z79.4 Long term (current) use of insulin
CPT/HCPCS: 99214

== ENCOUNTER 2023-04-26 05:05 | Emergency (ER) | payer MEDICARE, SELFPAY ==
[2023-04-26] VITALS (13 sets, daily range): BP systolic 109–168; BP diastolic 49–89; PULSE 69–78; RESP 16–20; TEMP 36–36.7; O2SAT 95–100; BMI 34.5
--- NOTE | 2023-04-26 | ECG_ITS ---
Test Reason : FALL Blood Pressure : / mmHG Vent. Rate : 070 BPM Atrial Rate : 070 BPM P-R Int : 244 ms QRS Dur : 104 ms QT Int : 416 ms P-R-T Axes : 107 074 032 degrees QTc Int : 449 ms Atrial-paced rhythm with prolonged AV conduction Minimal voltage criteria for LVH, may be normal variant ( Brayan product ) Inferior infarct , age undetermined Abnormal ECG When compared with ECG of 30-MAR-2023 13:33, Electronic atrial pacemaker has replaced Electronic ventricular pacemaker Referred By: Generic ED Physician Electronically Signed By:Reginald Amato
--- NOTE | ~2023-04-26 | CT_ITS ---
EXAMINATION: CT chest, abdomen and pelvis without IV contrast. CLINICAL INDICATIONS: Fall, pain. COMPARISON: Chest x-ray 03/30/2023. TECHNIQUE: 5 mm thin axial and reformatted 3 mm thin sagittal coronal images of chest, abdomen and pelvis were obtained without contrast. DLP 1835. FINDINGS: CHEST: LUNGS: The lungs are well-expanded and clear of acute consolidation, contusion or atelectasis. Mild bibasilar atelectatic changes are seen. Mediastinum: The thyroid lobes are symmetrical and normal. Central trachea and the bronchi are widely patent. Heart size and the great vessels are normal caliber. No abnormal size mediastinal lymph nodes seen. There are pacer electrodes in right atrium and right ventricle. Moderate coronary artery calcification seen. No pericardial effusion. Pleura: There is no pleural effusion, thickening or calcification. Axilla: Unremarkable. There is a pacemaker hardware along the left upper anterior chest wall. Osseous structures: There is no aggressive lytic or sclerotic process seen. There is moderate ventral spondylosis mid and lower dorsal spine. No aggressive lytic or sclerotic process seen. There is posterior spinal electrodes in the mid thoracic spine. Abdomen and pelvis: Next Liver, ducts and gallbladder. The liver is normal size, contour and density. No focal lesion or intrahepatic ductal dilatation seen. Spleen: Unremarkable. Pancreas: Pancreas is homogeneous in density. The peripancreatic fat borders are maintained. Adrenal glands: Unremarkable. Kidneys and ureter: Both kidneys are slightly lobulated appearance without any radiopaque renal calculi or hydronephrosis. There are bilateral extrarenal kidney pelvis. There is mild bilateral perinephric stranding. Lymphovascular structures: There is atherosclerotic changes of the abdominal aorta without aneurysmal dilatation GI tract: There is scattered stool, diverticuli and gas seen throughout the colon without distention. The small bowel loops are normal caliber. Appendix is not visualized. Abdominal wall: There is evidence of hernia. There is no abdominal wall contusion or hematoma. There is a neurostimulator overlying the left buttock with electrodes extending into the spinal canal. Pelvis: The bladder is nondistended. The uterus is atrophied or surgically absent. No adnexal mass or free fluid seen. Osseous structures: There are degenerative disc changes at all lumbar disc level with vacuum disc phenomena at L1-L2, L3-L4 and L4-L5 disc level. No compression fracture, lytic or sclerotic process seen. CT/CT abdomen pelvis wo IV con IMPRESSION: No acute traumatic process seen involving the chest, abdomen or pelvis. There is moderate spondylosis seen throughout the dorsal and lumbar spine. No visible rib fracture.
--- NOTE | ~2023-04-26 | CT_ITS ---
EXAMINATION: NONCONTRAST HEAD CT NONCONTRAST CERVICAL SPINE CT INDICATION INFORMATION: Trauma COMPARISON: Priors dating back to 2016 TECHNIQUE: Separate noncontrast CT examinations of the head and cervical spine were performed. Coronal and sagittal images were created for each examination at the technologist workstation. This CT examination was performed using dose optimization techniques as appropriate, variously including the following: *Automated exposure control *Adjustment of mA and/or kV according to patient size (this includes techniques or standardized protocols for targeted exams where dose is matched to indication/reason for exam; i.e. extremities or head) *Use of iterative reconstruction technique DLP: 1275 mGy-cm FINDINGS: Head: There is no evidence of acute intracranial hemorrhage or territorial infarction. No abnormal mass effect or midline shift is seen. Aden to white matter differentiation is well preserved. No extra-axial fluid collections are identified. No hydrocephalus. Proportional prominence of the ventricles and sulcal spaces is consistent with mild volume loss. Patchy periventricular and deep white matter hypoattenuation is consistent with mild small vessel ischemic changes. Chronic slitlike infarct left lentiform nucleus, likely an old hemorrhagic infarct. Unchanged 1.3 cm partially calcified meningioma along the medial floor of the right middle cranial fossa. No acute osseous or soft tissue abnormality. Hyperostosis frontalis. The mastoid air cells and visualized portions of the paranasal sinuses are well aerated. Cervical spine: There is anatomic alignment of the vertebral bodies and posterior elements. The atlantoaxial and atlantooccipital articulations are intact. Vertebral body heights maintained. Endplate ossified present throughout the cervical spine with ossification of the posterior longitudinal ligament. Posterior laminectomies from C3-C6. No evidence of acute fracture. No prevertebral soft tissue swelling. Visualized portions of the lung apices are unremarkable. The thyroid gland is unremarkable. CT/CT cervical spine wo IV con IMPRESSION: * No acute intracranial findings. * No acute fracture or malalignment of the cervical spine.
[2023-04-26 05:49] LABS: Basophils Absolute Auto 0.1 X10*3/uL (0.0-0.2); Basophils Percent Auto 0.9 % (0-2); Eosinophils Absolute Auto 0.2 X10*3/uL (0.0-0.4); Eosinophils Percent Auto 2.7 % (0-4); Hematocrit 41.4 % (37.0-47.0); Hemoglobin 13.1 g/dl (12.0-16.0); Imm Gran Abs Auto 0.02 X10*3/uL (0.00-0.03); Imm Gran Pct Auto 0.3 % (0.0-0.4); Lymphocytes Absolute Auto 1.6 X10*3/uL (1.2-4.9); Lymphocytes Percent Auto 22.8 % (20-40); MANUAL DIFF FLAG NO; Mean Corpuscular HGB Conc 31.6 g/dl (31.0-35.0); Mean Corpuscular Hemoglobin 27.2 pg (27.0-33.0); Mean Corpuscular Volume 86.1 fL (80.0-98.0); Monocytes Absolute Auto 0.6 X10*3/uL (0.1-1.2); Monocytes Percent Auto 9.2 % (2-11); Neutrophils Absolute Auto 4.5 x10*3/uL (2.0-8.3); Neutrophils Percent Auto 64.1 % (45-73); Platelet Count 336 X10*3/uL (160-400); Red Blood Count 4.81 X10*6/uL (4.20-5.50); Red Cell Distribution Width 17.2 % (11.0-16.0)
[2023-04-26 06:00] LABS: Anion Gap 14 (12-20); Blood Urea Nitrogen 38 mg/dL (9-16); Calcium 9.4 mg/dL (8.4-10.2); Carbon Dioxide 30 mmol/L (22-29); Chloride 104 mmol/L (96-108); Creatinine Clr Calc Pharmacy 42.2; Estimated Glomerular Filt Rate 43; Glucose Random 165 mg/dL (60-115); Potassium 3.7 mmol/L (3.3-5.1); Sodium 144 mmol/L (135-145)
--- NOTE | 2023-04-26 06:05 | ED_ITS ---
HPI - Fall General Chief Complaint: Fall Stated Complaint: fall Time Seen by Provider: 04/26/23 05:17 History of Present Illness HPI Narrative: Patient is a 72-year-old female status post fall. Patient stated she was attempting to get out of bed. Homans are subsequently accidentally fell backwards. Patient denies any chest pain any diaphoresis. History of [place] status post stent. She does have a history of multiple strokes. History of pacemaker history of AFib on Xarelto. Patient hit her neck complaining of to her back. She has a history of cervical fractures in the past. Related Data Home Medications Medication Instructions Recorded Confirmed betamethasone dipropionate 0.05 % 1 appl topical DAILY PRN Rash 03/26/23 04/23/23 topical cream digoxin 125 mcg (0.125 mg) tablet 125 mcg PO DAILY 03/26/23 04/23/23 ezetimibe 10 mg tablet (Zetia) 10 mg PO DAILY 03/26/23 04/23/23 fesoterodine 8 mg tablet,extended 8 mg PO DAILY 03/26/23 04/23/23 release 24 hr (Toviaz) gabapentin 600 mg tablet 400 mg PO BID 03/26/23 04/23/23 insulin degludec 100 unit/mL (3 15 unit subcut BEDTIME 03/26/23 04/23/23 mL) subcutaneous pen (Tresiba FlexTouch U-100 insulin) multivitamin 1 tab PO DAILY 03/26/23 04/23/23 cholecalciferol (vitamin D3) 50 50 mcg PO DAILY 04/23/23 04/23/23 mcg (2,000 unit) tablet ferrous sulfate 325 mg (65 mg 325 mg PO DAILY 04/23/23 04/23/23 iron) tablet Previous Rx's Medication Instructions Recorded blood-glucose meter ([employer] #1 ea 06/12/22 Verio Meter) acetaminophen 325 mg tablet 650 mg (2 x 325 mg) PO Q6H PRN 03/26/23 Pain (Scale Score 1-3) #60 tabs atenolol 50 mg tablet 50 mg PO BID 90 days #180 tabs 03/26/23 baclofen 10 mg tablet 10 mg PO TID PRN muscle spasm 30 03/26/23 days #90 tabs blood sugar diagnostic (OneTouch #100 ea 03/26/23 Verio test strips) nijjaivlpb-bqbikvygootvk-zxykxmkp 1 tab PO Q4H PRN Headache 4 days 03/26/23 50 mg-325 mg-40 mg tablet #24 tabs cyanocobalamin (vitamin B-12) 1,000 mcg PO DAILY 90 days #90 tabs 03/26/23 1,000 mcg tablet docusate sodium 100 mg capsule 100 mg PO BID PRN constipation 90 03/26/23 (DOK) days #180 caps dulaglutide 3 mg/0.5 mL 3 mg (0.5 mL) subcut QWEEK 90 days 03/26/23 subcutaneous pen injector #6.5 mL (Trulicity) empagliflozin 25 mg tablet 25 mg PO DAILY 90 days #90 tabs 03/26/23 (Jardiance) estradiol 0.01% (0.1 mg/gram) 1 appl vaginal 3XW #42.5 grams 03/26/23 vaginal cream fenofibrate 160 mg tablet 160 mg PO DAILY 90 days #90 tabs 03/26/23 fluticasone propionate 50 1 spray intranasal DAILY 90 days 03/26/23 mcg/actuation nasal #16 grams spray,suspension furosemide 40 mg tablet 40 mg PO DAILY 30 days #30 tabs 03/26/23 hydroxychloroquine 200 mg tablet 200 mg PO BID #180 tabs 03/26/23 (Plaquenil) ketoconazole 2 % topical cream 1 appl topical BID 30 days #30 03/26/23 grams lancets #100 ea 03/26/23 loratadine 10 mg tablet 10 mg PO DAILY 90 days #90 tabs 03/26/23 magnesium 200 mg tablet 200 mg PO DAILY 90 days #90 tabs 03/26/23 metformin 1,000 mg tablet 1,000 mg PO BIDWM 90 days #180 tabs 03/26/23 mirabegron 50 mg tablet,extended 50 mg PO DAILY 90 days #90 tabs 03/26/23 release 24 hr (Myrbetriq) nystatin 100,000 unit/gram topical 1 appl topical DAILY 15 days #60 03/26/23 powder grams omeprazole 40 mg capsule,delayed 40 mg PO DAILY@0630 90 days #90 03/26/23 release caps oxycodone 5 mg tablet 5 mg PO Q6H PRN pain 30 days #90 03/26/23 tabs riboflavin (vitamin B2) 400 mg 400 mg PO DAILY #30 tabs 03/26/23 tablet rivaroxaban 20 mg tablet (Xarelto) 20 mg PO DAILY@1700 90 days #90 03/26/23 tabs ropinirole 0.25 mg tablet 0.5 mg (2 x 0.25 mg) PO BEDTIME 90 03/26/23 days #180 tabs rosuvastatin 40 mg tablet (Crestor) 40 mg PO BEDTIME 90 days #90 tabs 03/26/23 sennosides 8.6 mg tablet (senna) 17.2 mg (2 x 8.6 mg) PO BEDTIME 03/26/23 PRN Constipation 90 days #90 tabs thiamine HCl (vitamin B1) 100 mg 100 mg PO DAILY 90 days #90 tabs 03/26/23 tablet clonazepam 0.5 mg tablet 0.5 mg PO BID #60 tabs 04/10/23 venlafaxine 75 mg capsule,extended 75 mg PO DAILY #30 caps 04/10/23 release 24 hr enoxaparin 100 mg/mL subcutaneous 100 mg subcut Q12H 5 days #10 mL 04/23/23 syringe Allergies Allergy/AdvReac Type Severity Reaction Status Date / Time morphine [Morphine] Allergy Severe ITCHING, Verified 04/23/23 12:11 hives cefdinir Allergy Intermediate hives Verified 04/23/23 12:11 sulfamethoxazole Allergy Intermediate RASH Verified 04/23/23 12:11 trimethoprim Allergy Intermediate RASH Verified 04/23/23 12:11 duloxetine AdvReac Severe altered Verified 04/23/23 12:11 behavior Review of Systems 2 Review of Systems: No fever no chills no chest pain or diaphoresis Yes all other systems are reviewed and are negative [facility] Past Medical History Attestation statement: The following information was validated with the patient. Medical History (HFpEF) heart failure with preserved ejection fraction Mild recurrent major depression Hyperlipidemia LDL goal <70 Post-dural puncture headache PONV (postoperative nausea and vomiting) Positive occult stool blood test [place] Headache Anemia Acute upper GI bleed Diabetic polyneuropathy COVID-19 Thiamine deficiency Hand pain CVA (cerebral vascular accident) Head injury Left shoulder pain Left knee pain Left hip pain Left hand pain Dizziness Diabetic neuropathy Diabetes type 2, uncontrolled Type 2 diabetes mellitus with other diabetic kidney complication Proteinuria Type 2 diabetes mellitus with diabetic polyneuropathy Dyslipidemia Obesity due to excess calories Other and unspecified hyperlipidemia Chronic heart failure with preserved ejection fraction (HFpEF) Anemia Thrombocytosis Pulmonary hypertension Ischemic stroke Paroxysmal atrial fibrillation Atherosclerotic cardiovascular disease Hospital discharge follow-up Thrombus Urge urinary incontinence Iron deficiency anemia Pure hypercholesterolemia Essential hypertension Diabetes mellitus Lumbar degenerative disc disease Surgical History S/P laminectomy S/P cardiac pacemaker procedure S/P insertion of spinal cord stimulator H/O colonoscopy History of Mohs micrographic surgery for skin cancer Hx of cervical spine surgery History of partial hysterectomy Hx of cardiac cath Family History Family History Father Rectal cancer Hypertension Arthritis of knee CVD (cardiovascular disease) Mother Hypertension CVD (cardiovascular disease) Myocardial infarction Diabetes Social History Social History Household Members: Spouse Housing: Apartment Are you a primary director of home care hospice to a significant other at home: No Do you presently have visiting nurse or other home services: No Alcohol intake: never Comment: na Patient Tobacco Use Status: Former Tobacco user Quit Date: 1993 Tobacco use type: Cigarette e-Cigarette/Vaping Use: Never Used Second Hand Smoke Exposure: No Advance Directives: Yes Advance Directives on File: Yes Advance Directives Date on File: 07/17/20 service: No Current occupational status: retired Current occupation: Lt handed Cognitive needs: Yes (scodor/walker) Hearing needs: No Vision needs: Yes (glasses) Physical Exam 2 Vital Signs: Vital Signs: Last Vital Signs Temp 98.1 F 04/26/23 05:18 Pulse 70 04/26/23 05:18 Resp 18 04/26/23 05:18 BP 124/59 L 04/26/23 05:18 Pulse Ox 98 04/26/23 05:18 O2 Del Method Nasal Cannula 04/26/23 05:18 Oxygen Flow Rate 2 04/26/23 05:18 BMI result Body Mass Index 34.5 Appearance: Alert. Oriented X3. No acute distress. Eyes: Pupils equal, round and reactive to light. ENT: Pharynx normal. Neck: Normal inspection. C-spine immobilized secondary to pain. No lymph nodes noted. No crepitus CVS: Normal heart rate and rhythm. Pulses normal. Normal S1 and S2 Respiratory: No respiratory distress. Breath sounds normal. No Wheezing. No rales Abdomen: Soft and nontender. No rigidity. No distention. good BS x4 Skin: Skin warm and dry. Normal skin color. Normal skin turgor. Extremities: No lower extremity edema. Neurovascular intact to all extremities. No Lacerations. No Rash Neuro: Oriented X 3. No motor deficit. No sensory deficit. Moving all extermities. No slurred speech Medical Decision Making Medical Decision Making MDM Narrative: Patient is status post fall most likely accidental. Positive hitting her head. CT scan of the head was grossly negative by my interpretation. No evidence of bleeding. CT scan of the C-spine is currently pending. CT scan of the chest abdomen pelvis was ordered as patient had back pain. Her electrolytes were checked. My interpretation of patient's EKG shows an atrial paced rhythm heart rate is 70 NV QRS QTC within normal limits is no acute ST segment elevations. Patient electrolytes will be checked. I used the [employer] device for interrogation. Will discuss with the wrap about the interrogation results. Patient's interrogation results shows no gross arrhythmia detected within the last week. She denies having any chest pain. No focal weakness. CT scan of the C-spine were reviewed. They are grossly negative for any acute evidence of bleeding. I reviewed radiology's reading of the CT C-spine they were grossly negative for any acute fracture or malalignment. Patient's hemoglobin is 13.1 is no evidence for anemia. Patient's BUN is 38 creatinine is 1.23 is an element of dehydration there. Will give hydration x1 L. patient's urine showed no signs of infection. CT scan of the chest abdomen pelvis was ordered as patient is on Xarelto fell and now have back pain CT scan of the chest abdomen pelvis is currently pending. If they are negative for acute trauma. Will attempt to ambulate patient. Patient has 9 kids at home. In addition to multitude of grandchildren/great grandchildren at home to help with her care. She feels comfortable about going home. Will reassess the situation after the CT scan from Differential Diagnosis Differential Diagnoses: The differential diagnosis associated with the presentation includes Head injury, intracranial bleed, C-spine injury, chest injury, lower back injury, retroperitoneal bleed, hip fracture Admission/Observation Consideration of admission/observation: Escalation of care including admission/observation considered Consult Healthcare Provider [facility] for pacemaker interrogation Lab Data MDM Lab Attestation statement: I reviewed the patient's lab results. 04/26/23 05:40 04/26/23 05:40 Labs: Lab Results 04/26/23 04/26/23 Range/Units 05:40 06:11 WBC 7.0 (4.8-10.8) X10*3/uL RBC 4.81 (4.20-5.50) X10*6/uL Hgb 13.1 (12.0-16.0) g/dl Hct 41.4 (37.0-47.0) % MCV 86.1 (80.0-98.0) fL MCH 27.2 (27.0-33.0) pg MCHC 31.6 (31.0-35.0) g/dl RDW 17.2 H (11.0-16.0) % Plt Count 336 (160-400) X10*3/uL MPV 9.0 L (9.4-12.3) fL Immature Gran % (Auto) 0.3 (0.0-0.4) % Neut % (Auto) 64.1 (45-73) % Lymph % (Auto) 22.8 (20-40) % [place] % (Auto) 9.2 (2-11) % Eos % (Auto) 2.7 (0-4) % Baso % (Auto) 0.9 (0-2) % Lymph # (Auto) 1.6 (1.2-4.9) X10*3/uL [place] # (Auto) 0.6 (0.1-1.2) X10*3/uL Eos # (Auto) 0.2 (0.0-0.4) X10*3/uL Baso # (Auto) 0.1 (0.0-0.2) X10*3/uL Abs Immat Gran (auto) 0.02 (0.00-0.03) X10*3/uL Absolute Neuts (auto) 4.5 (2.0-8.3) x10*3/uL Absolute Nucleated RBC 0.000 (0.0-0.012) X10*3/uL Nucleated RBC % (auto) 0.0 (0.0-0.2) /100WBC Sodium 144 (135-145) mmol/L Potassium 3.7 (3.3-5.1) mmol/L Chloride 104 (96-108) mmol/L Carbon Dioxide 30 H (22-29) mmol/L Anion Gap 14 (12-20) BUN 38 H (9-16) mg/dL Creatinine 1.23 (0.5-1.4) mg/dL Estim Creat Clear Calc 42.2 Estimated GFR 43 Random Glucose 165 H (60-115) mg/dL Calcium 9.4 (8.4-10.2) mg/dL Urine Color Yellow Urine Appearance Clear Urine pH 5.5 (5.0-9.0) Ur Specific Grant 1.015 (1.005-1.025) Urine Protein Trace (Neg-Trace) mg/dL Urine Glucose (UA) >=1000 H (Negative) mg/dL Urine Ketones Negative (Negative) mg/dL Urine Blood Negative (Negative) Urine Nitrite Negative (Negative) Ur Leukocyte Esterase Negative (Negative) Urine RBC 0-2 (0-2) /HPF Urine WBC 0-5 (0-5) /HPF Ur Squamous Epith Cells 0-2 (0-2) /HPF Urine Bacteria None Seen (None Seen) Hyaline Casts 0-2 (0-2) /LPF Independent Interpretation I performed an independent interpretation of an: EKG (Atrial paced heart rate was approximately 70 QRS QTC within normal limits is no acute ST segment elevation) and CT Scan (CT scan of the head was grossly negative for any acute evidence of bleeding) Radiology Impression Discussion of test interpretation with radiology: I have reviewed the radiologist's reading. Independent Historian Clinical information obtained from an independent historian. History obtained from or confirmed by: Spouse External Record Review External record reviewed: Office record Cardiology records reviewed Chronic Conditions Patient?s care impacted by: Hypertension Coronary artery disease, strokes, atrial fibrillation Discharge Plan Discharge Clinical Impression: Head injury, Contusion Patient Disposition: Still a Patient Prescriptions: No Action (DME) blood-glucose meter [OneTouch Verio Meter] Misc See Rx Instructions .Route Qty: 1 0RF Rx Instructions: As directed acetaminophen 325 mg tablet 650 mg PO Q6H PRN (Reason: Pain (Scale Score 1-3)) Qty: 60 0RF atenolol 50 mg tablet 50 mg PO BID 90 Days Qty: 180 1RF Protocol: Hold for SBP/HR < HOLD for SBP < : 90 HOLD for HR < : 60 (DME) OneTouch Verio test strips Strip See Rx Instructions .Route Qty: 100 5RF Rx Instructions: Use 1 test strip twice a day cyanocobalamin (vitamin B-12) 1,000 mcg tablet 1,000 mcg PO DAILY 90 Days Qty: 90 3RF docusate sodium [DOK] 100 mg capsule 100 mg PO BID PRN (Reason: constipation) 90 Days Qty: 180 2RF Trulicity 3 mg/0.5 mL pen injector 3 mg subcut QWEEK 90 Days Qty: 6.5 1RF Jardiance 25 mg tablet 25 mg PO DAILY 90 Days Qty: 90 3RF estradiol 0.01 % (0.1 mg/gram) cream 1 appl vaginal 3XW Qty: 42.5 0RF fenofibrate 160 mg tablet 160 mg PO DAILY 90 Days Qty: 90 3RF fluticasone propionate 50 mcg/actuation spray,suspension 1 spray intranasal DAILY 90 Days Qty: 16 3RF Rx Instructions: administer into each nostril furosemide 40 mg tablet 40 mg PO DAILY 30 Days Qty: 30 1RF hydroxychloroquine [Plaquenil] 200 mg tablet 200 mg PO BID Qty: 180 3RF (DME) lancets Misc See Rx Instructions .Route Qty: 100 3RF Rx Instructions: USe 1 lancet once a day ketoconazole 2 % cream 1 appl topical BID 30 Days Qty: 30 0RF loratadine 10 mg tablet 10 mg PO DAILY 90 Days Qty: 90 0RF magnesium 200 mg tablet 200 mg PO DAILY 90 Days Qty: 90 5RF metformin 1,000 mg tablet 1,000 mg PO BIDWM 90 Days Qty: 180 1RF Myrbetriq 50 mg tablet extended release 24 hr 50 mg PO DAILY 90 Days Qty: 90 1RF nystatin 100,000 unit/gram powder 1 appl topical DAILY 15 Days Qty: 60 0RF omeprazole 40 mg capsule,delayed release(DR/EC) 40 mg PO DAILY@0630 90 Days Qty: 90 1RF riboflavin (vitamin B2) 400 mg tablet 400 mg PO DAILY Qty: 30 0RF Xarelto 20 mg tablet 20 mg PO DAILY@1700 90 Days Qty: 90 1RF ropinirole 0.25 mg tablet 0.5 mg PO BEDTIME 90 Days Qty: 180 1RF rosuvastatin [Crestor] 40 mg tablet 40 mg PO BEDTIME 90 Days Qty: 90 1RF sennosides [senna] 8.6 mg tablet 17.2 mg PO BEDTIME PRN (Reason: Constipation) 90 Days Qty: 90 1RF thiamine HCl (vitamin B1) 100 mg tablet 100 mg PO DAILY 90 Days Qty: 90 1RF baclofen 10 mg tablet 10 mg PO TID PRN (Reason: muscle spasm) 30 Days Qty: 90 1RF phdqihucaf-csnmrnzeaubhr-gcin 50-325-40 mg tablet 1 tab PO Q4H PRN (Reason: Headache) 4 Days Qty: 24 0RF oxycodone 5 mg tablet 5 mg PO Q6H PRN (Reason: pain) 30 Days Qty: 90 0RF enoxaparin 100 mg/mL syringe 100 mg subcut Q12H 5 Days Qty: 10 0RF Rx Instructions: Procedure Date: 05/13/2023 Hold Xarelto 4 days prior to procedure; May 09, , , and, May 12 and 2 days post procedure as directed by pain management. Pre Procedure START LOVENOX 24 hours after last dose of Xarelto on May 10. Post Procedure Resume Xarelto as directed by pain management. venlafaxine 75 mg Capsule,Extended Release 24hr 75 mg PO DAILY Qty: 30 0RF clonazepam 0.5 mg Tablet 0.5 mg PO BID Qty: 60 0RF betamethasone dipropionate 0.05 % cream 1 appl topical DAILY PRN (Reason: Rash) digoxin 125 mcg (0.125 mg) tablet 125 mcg PO DAILY gabapentin 600 mg tablet 400 mg PO BID multivitamin Tablet 1 tab PO DAILY fesoterodine [Toviaz] 8 mg tablet extended release 24 hr 8 mg PO DAILY ezetimibe [Zetia] 10 mg tablet 10 mg PO DAILY insulin degludec [Tresiba FlexTouch U-100] 100 unit/mL (3 mL) insulin pen 15 unit subcut BEDTIME ferrous sulfate 325 mg (65 mg iron) tablet 325 mg PO DAILY cholecalciferol (vitamin D3) 50 mcg (2,000 unit) tablet 50 mcg PO DAILY
[2023-04-26 06:23] LABS: Appearance Urine Clear; Color Urine Yellow; Glucose Urine UA >=1000 mg/dL (Negative); Leukocyte Esterase Urine Negative (Negative); Nitrite Urine Negative (Negative); PH 5.5 (5.0-9.0); Specific Gravity - Urine 1.015 (1.005-1.025); UMIC TRIGGER UACC YES; Urine Blood Negative (Negative); Urine Ketones Negative (Negative); Urine Protein Trace mg/dL (Neg-Trace)
[2023-04-26 06:30] LABS: Bacteria Urine None Seen (None Seen); Hyaline Casts Urine 0-2 /LPF (0-2); RBC Urine 0-2 /HPF (0-2); Squamous Epithelial Cell Urine 0-2 /HPF (0-2); WBC Urine 0-5 /HPF (0-5)
[2023-04-26] MEDS: Acetaminophen 325 MG TABLET 975 MG PO (07:25)
[2023-04-26] MEDS: 0.9 % Sodium Chloride 1,000 ML 999 ML IV ×2 (07:25→11:26)
--- NOTE | 2023-04-26 07:53 | PC.NURSE ---
Pt is a&ox4 reporting 8/10 head/back pain. Pt desats to low 80's when sleeping, comes back up when woken up. Pt uses c pap at home. she is on 2lt nc, when up sating at 95%. abd soft non tender. Uses walker at baseline.
[2023-04-26 08:11] LABS: Glucose, Whole Blood 127 mg/dL (60-115)
--- NOTE | 2023-04-26 08:24 | PC.NURSE ---
Pt sleeping, awakes to tactile stimuli. Fluids completed. Placed on Oxymask while asleep as pt is mouth breathing. Pt undressed and repositioned in bed. Back to sleep at this time
--- NOTE | 2023-04-26 11:00 | MHC.EDTECH ---
this tech asked the patient if she could ambulate with me using a walker. patient stated that she is shaking and there is no way she can walk. will try again after patient is giving fluids.
--- NOTE | 2023-04-26 11:35 | PC.NURSE ---
Pt requesting liquids, patient struggled with thin liquid, choking on it. Thickener added, patient tolerated much better, was able to drink without choking. Primary nurse aware
--- NOTE | 2023-04-26 11:49 | PC.NURSE ---
rafael h concerns regarding pt going home d/t multiple falls, pt failed ambulation trial. Awaits PT consult. Speech consult ordered. Dr Vega aware
--- NOTE | 2023-04-26 12:39 | PC.NURSE ---
pharmacy called for med rec
--- NOTE | 2023-04-26 12:52 | PC.NURSE ---
Physical Therapy at bedside for eval
--- NOTE | 2023-04-26 15:56 | PC.NURSE ---
Lunch tray given to pt.
--- NOTE | 2023-04-26 16:19 | PC.NURSE ---
Pharmacy called again for med rec, per pharmacist we will attempt to get to it, on weekends admissions take priority
--- NOTE | 2023-04-26 17:24 | PHA.MEDREC ---
Pharmacy Consult ? Medication Reconciliation Pharmacy has completed the medication reconciliation.
[2023-04-26 19:39] LABS: Glucose, Whole Blood 174 mg/dL (60-115)
[2023-04-26] MEDS: atenoloL 50 MG TABLET PO (21:29)
[2023-04-26] MEDS: clonazePAM 0.5 MG TABLET PO (21:29)
[2023-04-26] MEDS: Hydroxychloroquine Sulfate 200 MG TABLET PO (21:30)
[2023-04-26] MEDS: rOPINIRole HCL 0.5 MG TABLET PO (21:30)
[2023-04-26] MEDS: Gabapentin 600 MG TABLET PO (21:30)
[2023-04-26] MEDS: Acetaminophen 325 MG TABLET 650 MG PO (21:37)
[2023-04-27] MEDS: Omeprazole 40 MG CAPSULE.DR PO (05:41)
[2023-04-27 05:42] VITALS: BP 178/84; PULSE 85; RESP 18; TEMP 36.4; O2SAT 96
[2023-04-27 07:34] LABS: Glucose, Whole Blood 148 mg/dL (60-115)
[2023-04-27] MEDS: Hydroxychloroquine Sulfate 200 MG TABLET PO (07:57)
[2023-04-27] MEDS: Fenofibrate 160 MG TABLET PO (07:58)
[2023-04-27] MEDS: Mirabegron 50 MG TAB.ER.24H PO (07:58)
[2023-04-27] MEDS: Losartan Potassium 25 MG TABLET PO (07:58)
[2023-04-27] MEDS: Multivitamin TABLET 1 TAB PO (07:58)
[2023-04-27] MEDS: Digoxin 0.125 MG TABLET PO (07:58)
[2023-04-27] MEDS: Ezetimibe 10 MG TABLET PO (07:58)
[2023-04-27] MEDS: Empagliflozin 25 MG TABLET PO (07:58)
[2023-04-27] MEDS: Gabapentin 600 MG TABLET PO ×2 (07:58→14:51)
[2023-04-27] MEDS: Furosemide 40 MG TABLET PO (07:58)
[2023-04-27] MEDS: clonazePAM 0.5 MG TABLET PO (07:58)
[2023-04-27] MEDS: Magnesium Oxide 400 MG TABLET 200 MG PO (07:59)
[2023-04-27] MEDS: Cholecalciferol (Vitamin D3) 25 MCG TABLET 50 MCG PO (07:59)
[2023-04-27] MEDS: Cyanocobalamin (Vitamin B-12) 1,000 MCG TABLET 1000 MCG PO (07:59)
[2023-04-27] MEDS: atenoloL 50 MG TABLET PO (07:59)
[2023-04-27] MEDS: Loratadine 10 MG TABLET PO (07:59)
[2023-04-27] MEDS: metFORMIN HCl 1,000 MG TABLET 1000 MG PO (07:59)
[2023-04-27] MEDS: Thiamine HCL 100 MG TABLET PO (07:59)
[2023-04-27] MEDS: Fluticasone Propionate Nasal 16 GM SPRAY 1 SPRAY NOSTRIL-B (08:02)
[2023-04-27] MEDS: Venlafaxine HCl ER 75 MG CAP.ER.24H PO (08:53)
[2023-04-27] MEDS: Clotrimazole 1 % Cream 15 GM TUBE 1 APPL TOPICAL (08:53)
[2023-04-27] MEDS: Nystatin Powder 15 GM BOTTLE 1 APPL TOPICAL (10:16)
[2023-04-27 11:14] LABS: Glucose, Whole Blood 198 mg/dL (60-115)
[2023-04-27 14:00] VITALS: BP 176/90; PULSE 82; RESP 18; TEMP 36.7; O2SAT 98
[2023-04-27] MEDS: Acetaminophen 325 MG TABLET 650 MG PO (14:51)
[2023-04-27] MEDS: Baclofen 10 MG TABLET PO (14:51)
[2023-04-27] MEDS: Rivaroxaban 20 MG TABLET PO (16:06)
[2023-04-27 16:07] VITALS: RESP 16
[2023-04-27 16:08] VITALS: RESP 16
[2023-04-27 16:10] LABS: Glucose, Whole Blood 267 mg/dL (60-115)
--- NOTE | 2023-04-27 16:18 | PC.NURSE ---
requested bacitracin per jul from the pharmacy as none in overflow pyxis- staff to bring when able.
--- NOTE | 2023-04-27 16:19 | PC.NURSE ---
case management came to speak w pt re: plan of care. given more po fluids w thickener per order. ate a few bites of pudding w med.
--- NOTE | 2023-04-27 16:24 | MHC.CM.PN ---
Met with patient in Overflow bed 3. [facility]. Patient does not have a 3 night stay. Spoke with patient about 3 midnight rule and private pay. Spoke with patients spouse. Initially he seemed interested in private pay but; then he stated that he was gathering her clothes and on his way to pick her up. A referral for Resumption of home services was sent to [facility]. [facility], family transport home.
--- NOTE | 2023-04-27 17:35 | PC.NURSE ---
pt ate dinner. voided in purewick clear yellow urine. no distress. jennifer oliver notified family at bedside wondering if will be d/c tonight. jennifer oliver looking into plan
[2023-04-27 18:00] VITALS: BP 146/86; PULSE 70; RESP 16; TEMP 36.1; O2SAT 98
[2023-04-27] MEDS: Bacitracin Oint 0.9 GM PACKET 1 APPL TOPICAL (18:02)
== END 2023-04-27 18:22 | disposition home or self-care (01) ==
PROVIDERS: Emergency Medicine Emergency Medical Services; Emergency Provider Emergency Medicine; PCP Internal Medicine
DX: S09.90XA Unspecified injury of head, initial encounter (principal); S00.93XA Contusion of unspecified part of head, initial encounter; W18.30XA Fall on same level, unspecified, initial encounter; E11.9 Type 2 diabetes mellitus without complications; I11.0 Hypertensive heart disease with heart failure; I50.33 Acute on chronic diastolic (congestive) heart failure; E78.00 Pure hypercholesterolemia, unspecified; I48.0 Paroxysmal atrial fibrillation; N39.41 Urge incontinence; N32.81 Overactive bladder; Z91.81 History of falling; Y93.9 Activity, unspecified; Y92.003 Bedroom of unspecified non-institutional (private) residence as the place of occurrence of the external cause; Y99.9 Unspecified external cause status; Z79.01 Long term (current) use of anticoagulants; Z95.0 Presence of cardiac pacemaker; Z79.85 Long-term (current) use of injectable non-insulin antidiabetic drugs; Z79.899 Other long term (current) drug therapy; Z79.84 Long term (current) use of oral hypoglycemic drugs; Z79.02 Long term (current) use of antithrombotics/antiplatelets
CPT/HCPCS: 36415; 70450; 71250; 72125; 74176; 80048; 81001; 82947; 85025; 87086; 93005; 96360; 96361; 97163; 99285

== ENCOUNTER → 2023-04-26 05:15 | Outpatient (BNV) | payer MEDICARE, SELFPAY | PROVIDERS: Emergency Provider Emergency Medicine; PCP Internal Medicine; Visit Provider Internal Medicine Cardiovascular Disease | DX: R94.31 Abnormal electrocardiogram [ECG] [EKG] (principal) | CPT/HCPCS: 93010 ==

== ENCOUNTER 2023-05-13 06:05 | Outpatient (REF) | payer MEDICARE, SELFPAY | END 2023-05-13 06:06 | disposition home or self-care (01) | LOC: CF 06:05 | PROVIDERS: Visit Provider Anesthesiology | DX: Z13.89 Encounter for screening for other disorder (principal) ==

== ENCOUNTER 2023-05-13 09:45 | Outpatient (AMB) | payer MEDICARE, SELFPAY ==
--- NOTE | 2023-05-13 12:39 | AM.OFFWIN_ITS ---
Intake Vital Signs 05/13/23 12:41 Height 5 ft 3 in Weight 194 lb BMI 34.4 BP 120/60 Pulse 69 Pulse Source Pulse Oximeter Temp 97.1 F Temp Source Temporal Artery Scan Pulse Oximetry (%) 98 Oxygen Delivery Method Room Air Intake Visit Reasons: EP, right leg swelling Intake Note: pt is here today for rt leg swelling started over a year ago Patient Tobacco Use Status: Former Tobacco user Quit Date: 1993 Allergies morphine [Morphine] Allergy (Severe, Verified 05/13/23 13:11) ITCHING, hives cefdinir Allergy (Intermediate, Verified 05/13/23 13:11) hives sulfamethoxazole Allergy (Intermediate, Verified 05/13/23 13:11) RASH trimethoprim Allergy (Intermediate, Verified 05/13/23 13:11) RASH duloxetine Adverse Reaction (Severe, Verified 05/13/23 13:11) altered behavior Medication List - Last Reconciled 05/13/23 by Demario Jane MD acetaminophen 650 mg (2 x 325 mg) PO Q6H PRN atenolol 50 mg See Protocol PO BID 90 days baclofen 10 mg PO TID PRN 30 days betamethasone dipropionate 0.05% 1 appl topical DAILY PRN blood sugar diagnostic (OneTouch Verio test strips) Use 1 test strip twice a day blood-glucose meter (OneTouch Verio Meter) As directed [id number] 50-325-40 mg 1 tab PO Q4H PRN 4 days cholecalciferol (vitamin D3) 50 mcg PO DAILY clonazepam 0.5 mg PO BID cyanocobalamin (vitamin B-12) 1,000 mcg PO DAILY 90 days digoxin 125 mcg PO DAILY docusate sodium (DOK) 100 mg PO BID PRN 90 days dulaglutide (Trulicity) 3 mg subcut TH@0900 empagliflozin (Jardiance) 25 mg PO DAILY 90 days estradiol 0.01%(0.1mg/gram) 1 appl vaginal MOWEFR@0900 ezetimibe (Zetia) 10 mg PO DAILY fenofibrate 160 mg PO DAILY 90 days fesoterodine ER (Toviaz) 8 mg PO DAILY fluticasone propionate 50 mcg/actuation 1 spray intranasal DAILY 90 days furosemide 40 mg PO DAILY 30 days gabapentin 600 mg PO TID hydroxychloroquine (Plaquenil) 200 mg PO BID insulin degludec (Tresiba FlexTouch U-100 insulin) 17 units subcut BEDTIME ketoconazole 2% 1 appl topical BID 30 days lancets USe 1 lancet once a day loratadine 10 mg PO DAILY 90 days losartan 25 mg PO DAILY magnesium 200 mg PO DAILY 90 days metformin 1,000 mg PO BIDWM 90 days mirabegron ER (Myrbetriq) 50 mg PO DAILY 90 days multivitamin 1 tab PO DAILY nystatin 1 appl topical DAILY 15 days omeprazole 40 mg PO DAILY@0630 90 days oxycodone 5 mg PO Q6H PRN 30 days riboflavin (vitamin B2) 400 mg PO DAILY rivaroxaban (Xarelto) 20 mg PO DAILY@1700 90 days ropinirole 0.5 mg (2 x 0.25 mg) PO BEDTIME 90 days rosuvastatin (Crestor) 40 mg PO BEDTIME 90 days sennosides (senna) 17.2 mg (2 x 8.6 mg) PO BEDTIME PRN 90 days thiamine HCl (vitamin B1) 100 mg PO DAILY 90 days venlafaxine ER 75 mg PO DAILY Do you need a note to return to daycare/school/sports/work: No HPI EP, right leg swelling HPI Details 72-year-old female presents to the [facility] for a sick visit. She is using a walker to ambulate. She comes to the office accompanied by her . Patient is complaining of pain in the knee and subsequent swelling below it. She was seen last week at the pain clinic and was scheduled for an injection this week. This morning she called them stating that her knee was swollen and they suggested that she come here. Patient is reporting pain symptoms in the knee. No shortness of breath. No fevers or chills. [facility] Medical History (HFpEF) heart failure with preserved ejection fraction Mild recurrent major depression Hyperlipidemia LDL goal <70 Post-dural puncture headache PONV (postoperative nausea and vomiting) Positive occult stool blood test [place] Headache Anemia Acute upper GI bleed Diabetic polyneuropathy COVID-19 Thiamine deficiency Hand pain CVA (cerebral vascular accident) Head injury Left shoulder pain Left knee pain Left hip pain Left hand pain Dizziness Diabetic neuropathy Diabetes type 2, uncontrolled Type 2 diabetes mellitus with other diabetic kidney complication Proteinuria Type 2 diabetes mellitus with diabetic polyneuropathy Dyslipidemia Obesity due to excess calories Other and unspecified hyperlipidemia Chronic heart failure with preserved ejection fraction (HFpEF) Anemia Thrombocytosis Pulmonary hypertension Ischemic stroke Paroxysmal atrial fibrillation Atherosclerotic cardiovascular disease Hospital discharge follow-up Thrombus Urge urinary incontinence Iron deficiency anemia Pure hypercholesterolemia Essential hypertension Diabetes mellitus Lumbar degenerative disc disease Surgical History S/P laminectomy S/P cardiac pacemaker procedure S/P insertion of spinal cord stimulator H/O colonoscopy History of Mohs micrographic surgery for skin cancer Hx of cervical spine surgery History of partial hysterectomy Hx of cardiac cath Family History Father Rectal cancer Hypertension Arthritis of knee CVD (cardiovascular disease) Mother Hypertension CVD (cardiovascular disease) Myocardial infarction Diabetes Social History Household Members: Spouse Housing: Apartment Are you a primary personal care attendant to a significant other at home: No Do you presently have visiting nurse or other home services: No Alcohol intake: never Comment: na Patient Tobacco Use Status: Former Tobacco user Quit Date: 1993 Tobacco use type: Cigarette e-Cigarette/Vaping Use: Never Used Second Hand Smoke Exposure: No Advance Directives Date on File: 07/17/20 service: No Current occupational status: retired Current occupation: Lt handed Cognitive needs: Yes (scodor/walker) Hearing needs: No Vision needs: Yes (glasses) Physical Exam Vital Signs: Last Vital Signs Temp 97.1 F 05/13/23 12:41 Pulse 69 05/13/23 12:41 BP 120/60 05/13/23 12:41 Pulse Ox 98 05/13/23 12:41 Oxygen Delivery Method Room Air 05/13/23 12:41 BMI result Body Mass Index 34.4 Extrem Other: Right knee: No joint line tenderness. Full range of motion including flexion, extension. Patient exhibits moderate discomfort on eliciting these movements. Assessment & Plan Assessment & Plan (1) Right knee pain: Code(s): M25.561 - Pain in right knee Plan: No evidence of any swelling in the foot. Patient was encouraged to call the physician and get the procedure done. Coding Level of Care Code Est Pt Level 3 (58974) Diagnoses Right knee pain M25.561
[2023-05-13 12:41] VITALS: BP 120/60; PULSE 69; TEMP 36.2; O2SAT 98; BMI 34.4
== END 2023-05-13 13:27 | disposition home or self-care (01) ==
PROVIDERS: PCP Internal Medicine; Visit Provider Internal Medicine
DX: M25.561 Pain in right knee (principal)
CPT/HCPCS: 99213

== ENCOUNTER → 2023-05-14 23:59 | Outpatient (BNV) | payer MEDICARE, SELFPAY ==
--- NOTE | 2023-05-21 19:21 | MHC.OFFVIS ---
Intake Intake Visit Reasons: Remote Device Check- [facility] Allergies morphine [Morphine] Allergy (Severe, Verified 05/15/23 10:03) ITCHING, hives cefdinir Allergy (Intermediate, Verified 05/15/23 10:03) hives sulfamethoxazole Allergy (Intermediate, Verified 05/15/23 10:03) RASH trimethoprim Allergy (Intermediate, Verified 05/15/23 10:03) RASH duloxetine Adverse Reaction (Severe, Verified 05/15/23 10:03) altered behavior [facility] Medical History (HFpEF) heart failure with preserved ejection fraction Mild recurrent major depression Hyperlipidemia LDL goal <70 Post-dural puncture headache PONV (postoperative nausea and vomiting) Positive occult stool blood test [place] Headache Anemia Acute upper GI bleed Diabetic polyneuropathy COVID-19 Thiamine deficiency Hand pain CVA (cerebral vascular accident) Head injury Left shoulder pain Left knee pain Left hip pain Left hand pain Dizziness Diabetic neuropathy Diabetes type 2, uncontrolled Type 2 diabetes mellitus with other diabetic kidney complication Proteinuria Type 2 diabetes mellitus with diabetic polyneuropathy Dyslipidemia Obesity due to excess calories Other and unspecified hyperlipidemia Chronic heart failure with preserved ejection fraction (HFpEF) Anemia Thrombocytosis Pulmonary hypertension Ischemic stroke Paroxysmal atrial fibrillation Atherosclerotic cardiovascular disease Hospital discharge follow-up Thrombus Urge urinary incontinence Iron deficiency anemia Pure hypercholesterolemia Essential hypertension Diabetes mellitus Lumbar degenerative disc disease Surgical History S/P laminectomy S/P cardiac pacemaker procedure S/P insertion of spinal cord stimulator H/O colonoscopy History of Mohs micrographic surgery for skin cancer Hx of cervical spine surgery History of partial hysterectomy Hx of cardiac cath Family History Father Rectal cancer Hypertension Arthritis of knee CVD (cardiovascular disease) Mother Hypertension CVD (cardiovascular disease) Myocardial infarction Diabetes Social History Household Members: Spouse Housing: Apartment Are you a primary client care coordinator to a significant other at home: No Do you presently have visiting nurse or other home services: No Alcohol intake: never Comment: na Patient Tobacco Use Status: Former Tobacco user Quit Date: 1993 Tobacco use type: Cigarette e-Cigarette/Vaping Use: Never Used Second Hand Smoke Exposure: No Advance Directives Date on File: 07/17/20 service: No Current occupational status: retired Current occupation: Lt handed Cognitive needs: Yes (scodor/walker) Hearing needs: No Vision needs: Yes (glasses) Office Procedures Cardiac Device Check Cardiac Device Check Details: Date of service- 05/14/2023 ; Battery life >9 years; normal lead parameters; AP 69%; INSTRUMENT ASSEMBLER 1.1%; AT/AF burden 1.3%. Overall normal device function. [id number] Cardiac Device Interrogation, pacemaker Procedure code (CPT) selection complete Assessment & Plan Assessment & Plan (1) Chronic heart failure with preserved ejection fraction (HFpEF): Code(s): I50.32 - Chronic diastolic (congestive) heart failure Plan x Coding Level of Care Code Procedure Only Diagnoses Chronic heart failure with preserved ejection fraction (HFpEF) I50.32 CPT Codes Cardiac Device Check - Cardiac Device 12: [id number] Cardiac Device Interrogation, pacemaker ([id number])
== END ==
PROVIDERS: PCP Internal Medicine; Visit Provider Internal Medicine
DX: I48.0 Paroxysmal atrial fibrillation (principal); Z95.0 Presence of cardiac pacemaker
CPT/HCPCS: 93294

== ENCOUNTER → 2023-05-15 09:29 | Outpatient (BNVA) | payer MEDICARE, SELFPAY | PROVIDERS: PCP Internal Medicine; Visit Provider Anesthesiology | DX: M17.11 Unilateral primary osteoarthritis, right knee (principal); M47.812 Spondylosis without myelopathy or radiculopathy, cervical region; M48.00 Spinal stenosis, site unspecified; M25.561 Pain in right knee | CPT/HCPCS: 99212 ==

== ENCOUNTER 2023-05-15 09:30 | Outpatient (AMB) | payer MEDICARE, SELFPAY ==
[2023-05-15 10:01] VITALS: BP 98/49; PULSE 69; O2SAT 96; BMI 34.4
--- NOTE | 2023-05-15 10:01 | MHC.OFFVIS ---
Intake Vital Signs 05/15/23 10:01 Height 5 ft 3 in Weight 194 lb 2 oz BMI 34.4 BP 98/49 L Blood Pressure Location Rt brachial Position Sitting Pulse 69 Pulse Source Pulse Oximeter Pulse Oximetry (%) 96 Oxygen Delivery Method Room Air Intake Visit Reasons: Follow Up/Procedure Discussion/Lvm Intake Note: Pain today 11/18 Fitness Floor Attendant Required: No Accompanied by: Spouse Allergies morphine [Morphine] Allergy (Severe, Verified 05/15/23 10:03) ITCHING, hives cefdinir Allergy (Intermediate, Verified 05/15/23 10:03) hives sulfamethoxazole Allergy (Intermediate, Verified 05/15/23 10:03) RASH trimethoprim Allergy (Intermediate, Verified 05/15/23 10:03) RASH duloxetine Adverse Reaction (Severe, Verified 05/15/23 10:03) altered behavior HPI HPI Comments History of Present Illness Details Missy is in my office today after I canceled her genicular nerve block on the right because she came to the operating room with grossly swollen right lower extremity. She is on blood thinners, she took her Lovenox bridge as it was prescribed and yet she developed edema of lower extremity which could not be excluded without special examination as a consequence of deep vein thrombosis. I sent patient to primary care physician. She is also a patient of Dr. Sweet our electrical installer who is taking care of her anticoagulation as well. Attention was attracted today to her blood pressure being 98/49 mm Hg. Her heart rate was 69. She reports dizziness, drowsiness, she reports neck pain. She reports constant headaches. I recommended her to go to a primary care physician for evaluation of her blood pressure and her headache comm I explained her risk of stroke. I recommended her to come back to us after she is stabilized with her blood pressure dizziness and drowsiness. While in rehab she was not able to charge her [employer]. Edita the sales development representative of [employer] telephone number was given to the patient to help the patient to reactivate her [employer]. Prior: 4 months ago she fell and broke up vertebra in her neck. She was placed in stiff cervical collar and she had to be admitted to rehab facility. She also complains on severe pain and right lower extremity. She reported that previously she was examined by Dr. Nelson the Orthopedic surgeon from [place] [facility]. They agreed to go for right total knee replacement however the patient was discovered with coronary artery problems and now she needs stents to be placed. She is waiting for stent placement with Cardiology. While in rehab she was not able to charge her spinal cord stimulator. Recently at home she charge her spinal cord stimulator to full charge however she does not know how to apply programs she forgot how to do that. It looks like that her total knee replacement is placed on the long wait , possibly years from now because if she will have stent placed it will be at least 6 months until her Plavix could be stopped. I offered her to perform diagnostic genicular nerve block. I will schedule it without sedation. Prior: . She still of this me that spinal cord stimulator fails to alleviate pain in the back although it helps pain radiating into bilateral lower extremities. She is status post Nevro spinal cord stimulator implant. She reported good results of bilateral C2-C3 C4 therapeutic medial branch block which was performed on 02/19/2022.? She reports 85% pain improvement.? She reports better neck mobility.? She states that by now the pain in the neck is back. She developed what we originally thought was post dural puncture headache a in her posterior neck with radiation into the occiput after performance of implantation of spinal cord stimulator Nevro..? We originally performed epidural blood patch on the patient however that was not effective to treat her pain.? We discussed in the past possibility to perform sphenopalatine plexus block however she reported epistaxis and the procedure was not performed. [facility] Medical History (HFpEF) heart failure with preserved ejection fraction Mild recurrent major depression Hyperlipidemia LDL goal <70 Post-dural puncture headache PONV (postoperative nausea and vomiting) Positive occult stool blood test [place] Headache Anemia Acute upper GI bleed Diabetic polyneuropathy COVID-19 Thiamine deficiency Hand pain CVA (cerebral vascular accident) Head injury Left shoulder pain Left knee pain Left hip pain Left hand pain Dizziness Diabetic neuropathy Diabetes type 2, uncontrolled Type 2 diabetes mellitus with other diabetic kidney complication Proteinuria Type 2 diabetes mellitus with diabetic polyneuropathy Dyslipidemia Obesity due to excess calories Other and unspecified hyperlipidemia Chronic heart failure with preserved ejection fraction (HFpEF) Anemia Thrombocytosis Pulmonary hypertension Ischemic stroke Paroxysmal atrial fibrillation Atherosclerotic cardiovascular disease Hospital discharge follow-up Thrombus Urge urinary incontinence Iron deficiency anemia Pure hypercholesterolemia Essential hypertension Diabetes mellitus Lumbar degenerative disc disease Surgical History S/P laminectomy S/P cardiac pacemaker procedure S/P insertion of spinal cord stimulator H/O colonoscopy History of Mohs micrographic surgery for skin cancer Hx of cervical spine surgery History of partial hysterectomy Hx of cardiac cath Family History Father Rectal cancer Hypertension Arthritis of knee CVD (cardiovascular disease) Mother Hypertension CVD (cardiovascular disease) Myocardial infarction Diabetes Social History Household Members: Spouse Housing: Apartment Are you a primary care asst to a significant other at home: No Do you presently have visiting nurse or other home services: No Alcohol intake: never Comment: na Patient Tobacco Use Status: Former Tobacco user Quit Date: 1993 Tobacco use type: Cigarette e-Cigarette/Vaping Use: Never Used Second Hand Smoke Exposure: No Advance Directives Date on File: 07/17/20 service: No Current occupational status: retired Current occupation: Lt handed Cognitive needs: Yes (scodor/walker) Hearing needs: No Vision needs: Yes (glasses) Review of Systems Const All systems reviewed & are unremarkable except as noted in HPI and below Physical Exam Vital Signs: Last Vital Signs Pulse 69 05/15/23 10:01 BP 98/49 L 05/15/23 10:01 Pulse Ox 96 05/15/23 10:01 Oxygen Delivery Method Room Air 05/15/23 10:01 BMI result Body Mass Index 34.4 Const General: cooperative and no acute distress Orientation/consciousness: patient oriented x3 Neck Other: Axial compression and flexing backwards aggravate pain. Range of motion in the neck is limited. Pain radiates from the neck to the posterior head occipital area. Resp Effort & Inspection: normal respiratory effort, able to speak in complete sentences and no audible wheezes Neuro General: patient oriented x3 Extrem Other: The right lower extremity is no longer edematous range of motion is limited due to severe knee arthritis. Assessment & Plan Assessment & Plan (1) Osteoarthritis of right knee: Code(s): M17.11 - Unilateral primary osteoarthritis, right knee (2) Spondylosis of cervical joint without myelopathy: Code(s): M47.812 - Spondylosis without myelopathy or radiculopathy, cervical region (3) Degenerative disc disease: (4) Spinal stenosis: Code(s): M48.00 - Spinal stenosis, site unspecified (5) Right knee pain: Code(s): M25.561 - Pain in right knee Plan She will go to her primary care physician with hypotension and dizziness and unstable gait. After that we will reschedule her for genicular nerve block. She will contact Thuan english to help her to restart her SCS machine. With good results of the genicular nerve RFA seem to be very good idea for this patient who is facing coronary artery stent in the future. She will schedule appointment with me after she will sort out the problems with her cranial circulation. Patient Instructions: I here by testify that I spent 35 minutes in conversation with this patient as well as planning her care, evaluating her prior records, and organizing her note. Coding Level of Care Code Est Pt Level 4 (45731) Diagnoses Osteoarthritis of right knee M17.11 Spondylosis of cervical joint without myelopathy M47.812 Degenerative disc disease Spinal stenosis M48.00 Right knee pain M25.561
== END 2023-05-15 10:21 | disposition home or self-care (01) ==
PROVIDERS: PCP Internal Medicine; Visit Provider Anesthesiology
DX: M17.11 Unilateral primary osteoarthritis, right knee (principal); M47.812 Spondylosis without myelopathy or radiculopathy, cervical region; M48.00 Spinal stenosis, site unspecified; M25.561 Pain in right knee
CPT/HCPCS: 99214

== ENCOUNTER 2023-05-30 14:11 | Outpatient (REF) | payer MEDICARE, SELFPAY | END 2023-05-30 14:12 | disposition home or self-care (01) | LOC: HO.LAB 14:11 | PROVIDERS: PCP Internal Medicine; Visit Provider Urology | DX: N39.41 Urge incontinence (principal); N39.0 Urinary tract infection, site not specified; N32.81 Overactive bladder; R33.9 Retention of urine, unspecified; Z79.899 Other long term (current) drug therapy | CPT/HCPCS: 81003; 87086; 99212 ==

== ENCOUNTER 2023-05-30 15:20 | Outpatient (AMB) | payer MEDICARE, SELFPAY ==
--- NOTE | 2023-05-30 15:25 | MHC.OFFVIS ---
Intake Intake Visit Reasons: follow up Intake Note: Patient presents today for a follow-up on OAB:? medictaions: Myrbetriq Allergies to Antibiotic- Sulfa, cefdinir, trimethoprim Blood thinners: Xarelto & Furosemide Mule Rider Required: No Accompanied by: Spouse Allergies morphine [Morphine] Allergy (Severe, Verified 06/09/23 14:54) ITCHING, hives cefdinir Allergy (Intermediate, Verified 06/09/23 14:54) hives sulfamethoxazole Allergy (Intermediate, Verified 06/09/23 14:54) RASH trimethoprim Allergy (Intermediate, Verified 06/09/23 14:54) RASH duloxetine Adverse Reaction (Severe, Verified 06/09/23 14:54) altered behavior HPI HPI Comments History of Present Illness Details Missy is a 72-year-old female who presents today to the office for a follow-up. 05/30/23 She is followed today for OAB and UTI symptoms. She complains of dysuria Patient has had urine culture on 03/30/2023 which revealed E. Coli. She states that the Myrbetriq is helping with her overactive bladder symptoms; however she reports intermittent urinary leakage prior getting up to the bathroom due to her limited mobility. UA- leuks trace, blood trace Discussed use of cranberry supplements, Will send urine c/s, empirically start macrobid. 05/30/23: Plan: Follow-up in 4 months. Will continue monitoring. Continue Myrbetriq 50 mg. cranberry supplements, urine c/s, empirically start macrobid. [facility] Medical History (HFpEF) heart failure with preserved ejection fraction Mild recurrent major depression Hyperlipidemia LDL goal <70 Post-dural puncture headache PONV (postoperative nausea and vomiting) Positive occult stool blood test [place] Headache Anemia Acute upper GI bleed Diabetic polyneuropathy COVID-19 Thiamine deficiency Hand pain CVA (cerebral vascular accident) Head injury Left shoulder pain Left knee pain Left hip pain Left hand pain Dizziness Diabetic neuropathy Diabetes type 2, uncontrolled Type 2 diabetes mellitus with other diabetic kidney complication Proteinuria Type 2 diabetes mellitus with diabetic polyneuropathy Dyslipidemia Obesity due to excess calories Other and unspecified hyperlipidemia Chronic heart failure with preserved ejection fraction (HFpEF) Anemia Thrombocytosis Pulmonary hypertension Ischemic stroke Paroxysmal atrial fibrillation Atherosclerotic cardiovascular disease Hospital discharge follow-up Thrombus Urge urinary incontinence Iron deficiency anemia Pure hypercholesterolemia Essential hypertension Diabetes mellitus Lumbar degenerative disc disease Surgical History S/P laminectomy S/P cardiac pacemaker procedure S/P insertion of spinal cord stimulator H/O colonoscopy History of Mohs micrographic surgery for skin cancer Hx of cervical spine surgery History of partial hysterectomy Hx of cardiac cath Family History Father Rectal cancer Hypertension Arthritis of knee CVD (cardiovascular disease) Mother Hypertension CVD (cardiovascular disease) Myocardial infarction Diabetes Social History Household Members: Spouse Housing: Apartment Are you a primary career center director to a significant other at home: No Do you presently have visiting nurse or other home services: Yes Alcohol intake: never Comment: na Patient Tobacco Use Status: Former Tobacco user Quit Date: 1993 Tobacco use type: Cigarette e-Cigarette/Vaping Use: Never Used Second Hand Smoke Exposure: No Advance Directives Date on File: 06/09/23 service: No Current occupational status: retired Current occupation: Lt handed Cognitive needs: Yes (scodor/walker) Hearing needs: No Vision needs: Yes (glasses) Review of Systems Const All systems reviewed & are unremarkable except as noted in HPI and below Reports no additional complaints Eyes Reports no additional complaints ENT Reports no additional complaints Card Denies dyspnea Resp Denies cough and Denies dyspnea GI Reports no additional complaints Reports no additional complaints Musc Reports no additional complaints Skin/Breast Denies rash and Denies unusual bruising Neuro Reports no additional complaints Psych Reports no additional complaints Endo Reports no additional complaints Jt/Lymph Reports no additional complaints Aller/Immun Reports no additional complaints Results AMB Urinalysis, Automated UA Leukoctes 15 Pam/uL Last Edit by Rhonda Willis CMA on 05/30/23 15:35 UA Nitrite Negative Last Edit by Rhonda Willis CMA on 05/30/23 15:35 UA Urobilinogen 0.2 mg/dL Last Edit by Rhonda Willis CMA on 05/30/23 15:35 UA Protein 30 mg/dL Last Edit by Rhonda Willis CMA on 05/30/23 15:35 UA pH 6.0 Last Edit by Rhonda Willis [facility] on 05/30/23 15:35 UA Blood 10 Lj/uL Last [facility] on 05/30/23 15:35 UA Specific [place] 1.015 Last Edit by Rhonda Willis, [facility] on 05/30/23 15:35 UA Ketone Negative Last Edit by [facility], [facility] on 05/30/23 15:35 UA Bilirubin 0 mg/dL Last Edit by [facility] on 05/30/23 15:35 UA Glucose 1000 mg/dL Last Edit by [facility] on 05/30/23 15:35 Results Reviewed Results Reviewed: Laboratory Last Values Urine pH (Auto) 6.0 05/30/23 15:31 Specific [place] (Auto) 1.015 05/30/23 15:31 Urine Protein (Auto) 30 mg/dL 05/30/23 15:31 Glucose (UA)(Auto) 1000 mg/dL 05/30/23 15:31 Urine Ketones (Auto) Negative 05/30/23 15:31 Urine Blood (Auto) 10 Lj/uL 05/30/23 15:31 Urine Nitrite (Auto) Negative 05/30/23 15:31 Urine Bilirubin (Auto) 0 mg/dL 05/30/23 15:31 Urine Urobilinogen (Auto) 0.2 mg/dL 05/30/23 15:31 Leukocyte Esterase (Auto) 15 Pam/uL 05/30/23 15:31 Assessment & Plan Assessment & Plan (1) OAB (overactive bladder): Code(s): N32.81 - Overactive bladder (2) Urge incontinence of urine: Code(s): N39.41 - Urge incontinence (3) UTI (urinary tract infection): Code(s): N39.0 - Urinary tract infection, site not specified Plan Follow-up in 4 months. Will continue monitoring. Continue Myrbetriq 50 mg. cranberry supplements, urine c/s, empirically start macrobid. Orders: Orders AMB Urinalysis Automated 05/30/23 R33.9 - Retention of urine, unspecified Urine Culture 05/30/23 N39.41 - Urge incontinence, N39.0 - Urinary tract infection, site not specified Medications: New cranberry extract administer with meals 425 mg PO BID 60 caps 5RF nitrofurantoin monohyd/m-cryst 100 mg (Macrobid) must administer with a meal/food 100 mg PO BID 14 caps 0RF Discontinued nystatin Discontinued Reason: Patient Refused 1 appl topical DAILY 15 days 60 grams 0RF B35.1 - Tinea unguium Patient Instructions: The patient had an opportunity to ask questions regarding treatment plan. All questions were answered. Laboratory studies and physical exam results were discussed and reviewed in detail. No major barriers to understanding were identified. The patient expressed understanding and agreement with the above treatment plan. The patient is aware they should contact our office by phone for worsening of their current condition or the appearance of new symptoms. Compliance is encouraged with any medications and followup testing that is ordered. It is a privilege to be allowed the opportunity to participate in the urologic care of your patient. If you have any questions or concerns regarding treatment for the above conditions please do not hesitate to contact me. The office telephone contact is [phone]. This note is constructed in part using voice recognition software. While every effort has been made to ensure accuracy head of talent management errors may have been included. Yours sincerely, Victoriano Ngo MD Coding Level of Care Code Est Pt Level 4 (06152) Diagnoses OAB (overactive bladder) N32.81 Urge incontinence of urine N39.41 UTI (urinary tract infection) N39.0
== END 2023-05-30 15:50 | disposition home or self-care (01) ==
LOC: HO.HUSH 15:20
PROVIDERS: PCP Internal Medicine; Visit Provider Urology
DX: N32.81 Overactive bladder (principal); N39.41 Urge incontinence; N39.0 Urinary tract infection, site not specified
CPT/HCPCS: 99214

== ENCOUNTER 2023-06-08 15:20 | Emergency (ER) | payer MEDICARE, SELFPAY ==
[2023-06-08 15:30] VITALS: BP 165/91; PULSE 86; RESP 18; TEMP 36.8; O2SAT 98; BMI 34.2
--- NOTE | 2023-06-08 15:38 | ED_ITS ---
HPI - General Adult General Chief complaint: Nausea/Vomiting/Diarrhea Stated complaint: lower abd rash/nauseous/rectum pain Time Seen by Provider: 06/08/23 17:43 Source: patient Mode of arrival: ambulatory Limitations: no limitations History of Present Illness HPI narrative: Patient with anxiety comes here with multiple complaints having nausea diarrhea 3- 4 times a day also taking stool softner unable to sleep for last 4 days patient took Macrobid on 05/30 for UTI stool is loose no foul-smelling no fever or chills Related Data Home Medications Medication Instructions Recorded Confirmed betamethasone dipropionate 0.05 % 1 appl topical DAILY PRN Rash 03/26/23 04/26/23 topical cream digoxin 125 mcg (0.125 mg) tablet 125 mcg PO DAILY 03/26/23 04/26/23 ezetimibe 10 mg tablet (Zetia) 10 mg PO DAILY 03/26/23 04/26/23 fesoterodine 8 mg tablet,extended 8 mg PO DAILY 03/26/23 04/26/23 release 24 hr (Toviaz) gabapentin 600 mg tablet 600 mg PO TID 03/26/23 04/26/23 insulin degludec 100 unit/mL (3 17 unit subcut BEDTIME 03/26/23 04/26/23 mL) subcutaneous pen (Tresiba FlexTouch U-100 insulin) multivitamin 1 tab PO DAILY 03/26/23 04/26/23 cholecalciferol (vitamin D3) 50 50 mcg PO DAILY 04/23/23 04/26/23 mcg (2,000 unit) tablet estradiol 0.01% (0.1 mg/gram) 1 appl vaginal MOWEFR@0900 04/26/23 04/26/23 vaginal cream losartan 25 mg tablet 25 mg PO DAILY 04/26/23 04/26/23 Previous Rx's Medication Instructions Recorded blood-glucose meter (Contigo FinancialTouch #1 ea 06/12/22 Verio Meter) acetaminophen 325 mg tablet 650 mg (2 x 325 mg) PO Q6H PRN 03/26/23 Pain (Scale Score 1-3) #60 tabs atenolol 50 mg tablet 50 mg PO BID 90 days #180 tabs 03/26/23 baclofen 10 mg tablet 10 mg PO TID PRN muscle spasm 30 03/26/23 days #90 tabs blood sugar diagnostic (OneTouch #100 ea 03/26/23 Verio test strips) uwbfbvcrub-bnsokguiulhtj-jdzuvlbf 1 tab PO Q4H PRN Headache 4 days 03/26/23 50 mg-325 mg-40 mg tablet #24 tabs cyanocobalamin (vitamin B-12) 1,000 mcg PO DAILY 90 days #90 tabs 03/26/23 1,000 mcg tablet empagliflozin 25 mg tablet 25 mg PO DAILY 90 days #90 tabs 03/26/23 (Jardiance) fenofibrate 160 mg tablet 160 mg PO DAILY 90 days #90 tabs 03/26/23 fluticasone propionate 50 1 spray intranasal DAILY 90 days 03/26/23 mcg/actuation nasal #16 grams spray,suspension furosemide 40 mg tablet 40 mg PO DAILY 30 days #30 tabs 03/26/23 hydroxychloroquine 200 mg tablet 200 mg PO BID #180 tabs 03/26/23 (Plaquenil) ketoconazole 2 % topical cream 1 appl topical BID 30 days #30 03/26/23 grams lancets #100 ea 03/26/23 loratadine 10 mg tablet 10 mg PO DAILY 90 days #90 tabs 03/26/23 magnesium 200 mg tablet 200 mg PO DAILY 90 days #90 tabs 03/26/23 metformin 1,000 mg tablet 1,000 mg PO BIDWM 90 days #180 tabs 03/26/23 mirabegron 50 mg tablet,extended 50 mg PO DAILY 90 days #90 tabs 03/26/23 release 24 hr (Myrbetriq) omeprazole 40 mg capsule,delayed 40 mg PO DAILY@0630 90 days #90 03/26/23 release caps riboflavin (vitamin B2) 400 mg 400 mg PO DAILY #30 tabs 03/26/23 tablet rivaroxaban 20 mg tablet (Xarelto) 20 mg PO DAILY@1700 90 days #90 03/26/23 tabs ropinirole 0.25 mg tablet 0.5 mg (2 x 0.25 mg) PO BEDTIME 90 03/26/23 days #180 tabs rosuvastatin 40 mg tablet (Crestor) 40 mg PO BEDTIME 90 days #90 tabs 03/26/23 sennosides 8.6 mg tablet (senna) 17.2 mg (2 x 8.6 mg) PO BEDTIME 03/26/23 PRN Constipation 90 days #90 tabs thiamine HCl (vitamin B1) 100 mg 100 mg PO DAILY 90 days #90 tabs 03/26/23 tablet clonazepam 0.5 mg tablet 0.5 mg PO BID #60 tabs 04/10/23 venlafaxine 75 mg capsule,extended 75 mg PO DAILY #30 caps 04/10/23 release 24 hr cranberry extract 425 mg capsule 425 mg PO BID #60 caps 05/30/23 nitrofurantoin 100 mg PO BID #14 caps 05/30/23 monohydrate/macrocrystals 100 mg capsule (Macrobid) dulaglutide 3 mg/0.5 mL 3 mg (0.5 mL) subcut QWEEK 30 days 06/01/23 subcutaneous pen injector #2.5 mL (Trulicity) nystatin 100,000 unit/gram topical 1 appl topical DAILY PRN rash 2 06/01/23 cream weeks #15 grams docusate sodium 100 mg capsule 100 mg PO BID PRN constipation 90 06/02/23 (DOK) days #180 caps lidocaine 4 % topical patch 1 patch topical DAILY PRN pain 30 06/02/23 (Aspercreme (lidocaine)) days #15 ea oxycodone 5 mg tablet 5 mg PO Q6H PRN pain 30 days #90 06/02/23 tabs nystatin 100,000 unit/gram topical 1 appl topical BID #60 grams 06/08/23 powder Allergies Allergy/AdvReac Type Severity Reaction Status Date / Time morphine [Morphine] Allergy Severe ITCHING, Verified 06/08/23 15:35 hives cefdinir Allergy Intermediate hives Verified 06/08/23 15:35 sulfamethoxazole Allergy Intermediate RASH Verified 06/08/23 15:35 trimethoprim Allergy Intermediate RASH Verified 06/08/23 15:35 duloxetine AdvReac Severe altered Verified 06/08/23 15:35 behavior Review of Systems 2 Review of Systems: Yes all other systems are reviewed and are negative PMFSH Past Medical History Medical History (HFpEF) heart failure with preserved ejection fraction Mild recurrent major depression Hyperlipidemia LDL goal <70 Post-dural puncture headache PONV (postoperative nausea and vomiting) Positive occult stool blood test [place] Headache Anemia Acute upper GI bleed Diabetic polyneuropathy COVID-19 Thiamine deficiency Hand pain CVA (cerebral vascular accident) Head injury Left shoulder pain Left knee pain Left hip pain Left hand pain Dizziness Diabetic neuropathy Diabetes type 2, uncontrolled Type 2 diabetes mellitus with other diabetic kidney complication Proteinuria Type 2 diabetes mellitus with diabetic polyneuropathy Dyslipidemia Obesity due to excess calories Other and unspecified hyperlipidemia Chronic heart failure with preserved ejection fraction (HFpEF) Anemia Thrombocytosis Pulmonary hypertension Ischemic stroke Paroxysmal atrial fibrillation Atherosclerotic cardiovascular disease Hospital discharge follow-up Thrombus Urge urinary incontinence Iron deficiency anemia Pure hypercholesterolemia Essential hypertension Diabetes mellitus Lumbar degenerative disc disease Surgical History S/P laminectomy S/P cardiac pacemaker procedure S/P insertion of spinal cord stimulator H/O colonoscopy History of Mohs micrographic surgery for skin cancer Hx of cervical spine surgery History of partial hysterectomy Hx of cardiac cath Family History Family History Father Rectal cancer Hypertension Arthritis of knee CVD (cardiovascular disease) Mother Hypertension CVD (cardiovascular disease) Myocardial infarction Diabetes Social History Social History Household Members: Spouse Housing: Apartment Are you a primary intensive care nurse to a significant other at home: No Do you presently have visiting nurse or other home services: No Alcohol intake: never Comment: na Patient Tobacco Use Status: Former Tobacco user Quit Date: 1993 Tobacco use type: Cigarette Smoked in Last 30 Days: No e-Cigarette/Vaping Use: Never Used Second Hand Smoke Exposure: No Use of substances other than those prescribed or required for medical reasons: No Advance Directives: Yes Advance Directives Information Provided: No Advance Directives on File: No Advance Directives Date on File: 07/17/20 service: No Current occupational status: retired Current occupation: Lt handed Cognitive needs: Yes (scodor/walker) Hearing needs: No Vision needs: Yes (glasses) Physical Exam ED Vital Signs: Vital Signs - 24 hr 06/08/23 15:30 06/08/23 17:10 Temperature 98.2 F 97.4 F Pulse Rate 86 70 Respiratory Rate 18 20 Blood Pressure 165/91 H 138/90 H Pulse Oximetry 98 100 Oxygen Delivery Method Room Air Room Air BMI result Body Mass Index 34.2 Appearance: Alert. Oriented X3. No acute distress. Anxious Eyes: No pallor or icterus ENT: Pharynx normal. Oral Mucosa moist Neck: Normal inspection. Neck supple. CVS: Normal heart rate and rhythm. Pulses normal. Respiratory: No respiratory distress. Equal air entry bilateral, Abdomen: Soft and nontender. Bowel sounds are present, no mass palpable, no CVA tenderness Skin: Skin warm and dry. Intertrigo rash lower abdomen Normal skin turgor. Extremities: No lower extremity edema. No calf tenderness Neuro: Oriented X 3. No motor deficit. Course Course Course Narrative: RME: 72 yold male presents to the ED for lower abdominal pain, diarrhea, nausea, and rectal pain. just started new anitibotics, but does not remember name. patient states rash on lower abdomen also. evaluatoin and physical exam will be done in ED. labs ordered Medications Administered Discontinued Medications Generic Name Dose Route Start Last Admin Trade Name Mike PRN Reason Stop Dose Admin Lorazepam 1 mg 06/08/23 19:04 06/08/23 19:11 Lorazepam 1 Mg Tablet PO 06/08/23 19:05 1 mg ONCE ONE Administration Medical Decision Making Medical Decision Making [facility] Narrative: Patient with increased anxiety loose bowels also taking stool softner but labs are benign will discharge patient home advised to continue medication supposed to be on Klonopin. Also will give her nystatin powder for intertrigo rash she been using cream lately Differential Diagnosis Differential Diagnoses: The differential diagnosis associated with the presentation includes Lab Data [facility] Lab Attestation statement: I reviewed the patient's lab results. 06/08/23 15:54 06/08/23 15:54 Labs: Lab Results 06/08/23 06/08/23 Range/Units 15:54 16:03 WBC 8.1 (4.8-10.8) X10*3/uL RBC 5.13 (4.20-5.50) X10*6/uL Hgb 13.9 (12.0-16.0) g/dl Hct 42.0 (37.0-47.0) % MCV 81.9 (80.0-98.0) fL MCH 27.1 (27.0-33.0) pg MCHC 33.1 (31.0-35.0) g/dl RDW 16.9 H (11.0-16.0) % Plt Count 410 H (160-400) X10*3/uL MPV 8.7 L (9.4-12.3) fL Immature Gran % (Auto) 0.2 (0.0-0.4) % Neut % (Auto) 73.0 (45-73) % Lymph % (Auto) 15.7 L (20-40) % [place] % (Auto) 8.1 (2-11) % Eos % (Auto) 1.9 (0-4) % Baso % (Auto) 1.1 (0-2) % Lymph # (Auto) 1.3 (1.2-4.9) X10*3/uL [place] # (Auto) 0.7 (0.1-1.2) X10*3/uL Eos # (Auto) 0.2 (0.0-0.4) X10*3/uL Baso # (Auto) 0.1 (0.0-0.2) X10*3/uL Abs Immat Gran (auto) 0.02 (0.00-0.03) X10*3/uL Absolute Neuts (auto) 5.9 (2.0-8.3) x10*3/uL Absolute Nucleated RBC 0.000 (0.0-0.012) X10*3/uL Nucleated RBC % (auto) 0.0 (0.0-0.2) /100WBC Sodium 133 L (135-145) mmol/L Potassium 4.0 (3.3-5.1) mmol/L Chloride 95 L (96-108) mmol/L Carbon Dioxide 24 (22-29) mmol/L Anion Gap 18 (12-20) BUN 25 H (9-16) mg/dL Creatinine 1.02 (0.5-1.4) mg/dL Estim Creat Clear Calc 50.7 Estimated GFR 53 Random Glucose 133 H (60-115) mg/dL Calcium 10.1 D (8.4-10.2) mg/dL Total Bilirubin 0.5 (0.0-1.0) mg/dL AST 40 H (5-31) U/L ALT 21 (0-31) U/L Alkaline Phosphatase 60 (39-117) U/L Total Protein 7.7 (6.5-8.0) g/dL Albumin 4.1 (3.5-5.0) g/dL Lipase 14 (8-78) U/L Urine Color Yellow Urine Appearance Clear Urine pH 6.5 (5.0-9.0) Ur Specific [place] 1.015 (1.005-1.025) Urine Protein 300 (3+) H (Neg-Trace) mg/dL Urine Glucose (UA) >=1000 H (Negative) mg/dL Urine Ketones Trace (Negative) mg/dL Urine Blood Small (1+) H (Negative) Urine Nitrite Negative (Negative) Ur Leukocyte Esterase Negative (Negative) Urine RBC 0-2 (0-2) /HPF Urine WBC 0-5 (0-5) /HPF Ur Squamous Epith Cells 0-2 (0-2) /HPF Urine Bacteria None Seen (None Seen) Hyaline Casts 0-2 (0-2) /LPF COVID-19 ([facility]) Negative (Negative) COVID-19 Clin Com See Note Influenza Type A ([facility]) Negative (Negative) Influenza Type B (DUY) Negative (Negative) Influenza A & B Note N Discharge Plan Discharge Clinical Impression: Anxiety, Acute diarrhea Patient Disposition: Home, Self-Care Instructions: Acute Diarrhea (ED), Anxiety (ED) Additional Instructions: Drink plenty of fluids Take your medication for anxiety as prescribed by your pcp Apply nystatin cream as prescribed Follow-up with your PCP Prescriptions: New nystatin 100,000 unit/gram powder 1 appl topical BID Qty: 60 2RF No Action (DME) blood-glucose meter [OneTouch Verio Meter] Misc See Rx Instructions .Route Qty: 1 0RF Rx Instructions: As directed acetaminophen 325 mg tablet 650 mg PO Q6H PRN (Reason: Pain (Scale Score 1-3)) Qty: 60 0RF atenolol 50 mg tablet 50 mg PO BID 90 Days Qty: 180 1RF Protocol: Hold for SBP/HR < HOLD for SBP < : 90 HOLD for HR < : 60 (DME) OneTouch Verio test strips Strip See Rx Instructions .Route Qty: 100 5RF Rx Instructions: Use 1 test strip twice a day cyanocobalamin (vitamin B-12) 1,000 mcg tablet 1,000 mcg PO DAILY 90 Days Qty: 90 3RF Jardiance 25 mg tablet 25 mg PO DAILY 90 Days Qty: 90 3RF fenofibrate 160 mg tablet 160 mg PO DAILY 90 Days Qty: 90 3RF fluticasone propionate 50 mcg/actuation spray,suspension 1 spray intranasal DAILY 90 Days Qty: 16 3RF Rx Instructions: administer into each nostril furosemide 40 mg tablet 40 mg PO DAILY 30 Days Qty: 30 1RF hydroxychloroquine [Plaquenil] 200 mg tablet 200 mg PO BID Qty: 180 3RF (DME) lancets Misc See Rx Instructions .Route Qty: 100 3RF Rx Instructions: USe 1 lancet once a day ketoconazole 2 % cream 1 appl topical BID 30 Days Qty: 30 0RF loratadine 10 mg tablet 10 mg PO DAILY 90 Days Qty: 90 0RF magnesium 200 mg tablet 200 mg PO DAILY 90 Days Qty: 90 5RF metformin 1,000 mg tablet 1,000 mg PO BIDWM 90 Days Qty: 180 1RF Myrbetriq 50 mg tablet extended release 24 hr 50 mg PO DAILY 90 Days Qty: 90 1RF omeprazole 40 mg capsule,delayed release(DR/EC) 40 mg PO DAILY@0630 90 Days Qty: 90 1RF riboflavin (vitamin B2) 400 mg tablet 400 mg PO DAILY Qty: 30 0RF Xarelto 20 mg tablet 20 mg PO DAILY@1700 90 Days Qty: 90 1RF ropinirole 0.25 mg tablet 0.5 mg PO BEDTIME 90 Days Qty: 180 1RF rosuvastatin [Crestor] 40 mg tablet 40 mg PO BEDTIME 90 Days Qty: 90 1RF sennosides [senna] 8.6 mg tablet 17.2 mg PO BEDTIME PRN (Reason: Constipation) 90 Days Qty: 90 1RF thiamine HCl (vitamin B1) 100 mg tablet 100 mg PO DAILY 90 Days Qty: 90 1RF baclofen 10 mg tablet 10 mg PO TID PRN (Reason: muscle spasm) 30 Days Qty: 90 1RF ttxiwcsxyn-sbfyzthuqsjoe-cisz 50-325-40 mg tablet 1 tab PO Q4H PRN (Reason: Headache) 4 Days Qty: 24 0RF nystatin 100,000 unit/gram cream 1 appl topical DAILY PRN (Reason: rash) 14 Days Qty: 15 1RF Trulicity 3 mg/0.5 mL pen injector 3 mg subcut QWEEK 30 Days Qty: 2.5 6RF docusate sodium [DOK] 100 mg capsule 100 mg PO BID PRN (Reason: constipation) 90 Days Qty: 180 2RF oxycodone 5 mg tablet 5 mg PO Q6H PRN (Reason: pain) 30 Days Qty: 90 0RF lidocaine [Aspercreme (lidocaine)] 4 % adhesive patch,medicated 1 patch topical DAILY PRN (Reason: pain) 30 Days Qty: 15 2RF venlafaxine 75 mg Capsule,Extended Release 24hr 75 mg PO DAILY Qty: 30 0RF clonazepam 0.5 mg Tablet 0.5 mg PO BID Qty: 60 0RF losartan 25 mg tablet 25 mg PO DAILY estradiol 0.01 % (0.1 mg/gram) cream 1 appl vaginal MOWEFR@0900 betamethasone dipropionate 0.05 % cream 1 appl topical DAILY PRN (Reason: Rash) digoxin 125 mcg (0.125 mg) tablet 125 mcg PO DAILY gabapentin 600 mg tablet 600 mg PO TID multivitamin Tablet 1 tab PO DAILY fesoterodine [Toviaz] 8 mg tablet extended release 24 hr 8 mg PO DAILY ezetimibe [Zetia] 10 mg tablet 10 mg PO DAILY insulin degludec [Tresiba FlexTouch U-100] 100 unit/mL (3 mL) insulin pen 17 unit subcut BEDTIME cholecalciferol (vitamin D3) 50 mcg (2,000 unit) tablet 50 mcg PO DAILY cranberry extract 425 mg capsule 425 mg PO BID Qty: 60 5RF Rx Instructions: administer with meals nitrofurantoin monohyd/m-cryst [Macrobid] 100 mg capsule 100 mg PO BID Qty: 14 0RF Rx Instructions: must administer with a meal/food Discharge Date/Time: 06/08/23 20:28
[2023-06-08 15:58] LABS: MANUAL DIFF FLAG NO
[2023-06-08 15:59] LABS: Basophils Absolute Auto 0.1 X10*3/uL (0.0-0.2); Basophils Percent Auto 1.1 % (0-2); Eosinophils Absolute Auto 0.2 X10*3/uL (0.0-0.4); Eosinophils Percent Auto 1.9 % (0-4); Hemoglobin 13.9 g/dl (12.0-16.0); Imm Gran Abs Auto 0.02 X10*3/uL (0.00-0.03); Imm Gran Pct Auto 0.2 % (0.0-0.4); Lymphocytes Absolute Auto 1.3 X10*3/uL (1.2-4.9); Lymphocytes Percent Auto 15.7 % (20-40); Mean Corpuscular HGB Conc 33.1 g/dl (31.0-35.0); Mean Corpuscular Hemoglobin 27.1 pg (27.0-33.0); Mean Corpuscular Volume 81.9 fL (80.0-98.0); Mean Platelet Volume 8.7 fL (9.4-12.3); Monocytes Absolute Auto 0.7 X10*3/uL (0.1-1.2); Monocytes Percent Auto 8.1 % (2-11); Neutrophils Absolute Auto 5.9 x10*3/uL (2.0-8.3); Platelet Count 410 X10*3/uL (160-400); Red Blood Count 5.13 X10*6/uL (4.20-5.50); Red Cell Distribution Width 16.9 % (11.0-16.0); White Blood Count 8.1 X10*3/uL (4.8-10.8)
[2023-06-08 16:14] LABS: COVID-19 Test Negative (Negative); IDNOW Serial# 08D9AD1C
[2023-06-08 16:15] LABS: IDNOW Serial# 152EDE1D; Influenza A Negative (Negative); Influenza A & B2 Note N; Influenza B2 Negative (Negative)
[2023-06-08 16:16] LABS: Alanine Aminotransferase 21 U/L (0-31); Albumin Level 4.1 g/dL (3.5-5.0); Alkaline Phosphatase 60 U/L (39-117); Anion Gap 18 (12-20); Aspartate Amino Transferase 40 U/L (5-31); Bilirubin Total 0.5 mg/dL (0.0-1.0); Blood Urea Nitrogen 25 mg/dL (9-16); Calcium 10.1 mg/dL (8.4-10.2); Carbon Dioxide 24 mmol/L (22-29); Chloride 95 mmol/L (96-108); Creatinine Clr Calc Pharmacy 50.7; Estimated Glomerular Filt Rate 53; Glucose Random 133 mg/dL (60-115); Lipase 14 U/L (8-78); Sodium 133 mmol/L (135-145); Total Protein 7.7 g/dL (6.5-8.0)
[2023-06-08 16:18] LABS: Appearance Urine Clear; Color Urine Yellow; Glucose Urine UA >=1000 mg/dL (Negative); Leukocyte Esterase Urine Negative (Negative); Nitrite Urine Negative (Negative); PH 6.5 (5.0-9.0); Specific Gravity - Urine 1.015 (1.005-1.025); UMIC TRIGGER UACC YES; Urine Blood Small (1+) (Negative); Urine Ketones Trace mg/dL (Negative); Urine Protein 300 (3+) mg/dL (Neg-Trace)
[2023-06-08 17:01] LABS: Bacteria Urine None Seen (None Seen); Hyaline Casts Urine 0-2 /LPF (0-2); RBC Urine 0-2 /HPF (0-2); Squamous Epithelial Cell Urine 0-2 /HPF (0-2); WBC Urine 0-5 /HPF (0-5)
[2023-06-08 17:10] VITALS: BP 138/90; PULSE 70; RESP 20; TEMP 36.3; O2SAT 100
--- NOTE | 2023-06-08 18:37 | MHC.EDTECH ---
PT was put on a pure wick after the pt urinated twice in a short time. The pt is clean and dry.
[2023-06-08] MEDS: LORazepam 1 MG TABLET PO (19:11)
== END 2023-06-08 20:28 | disposition home or self-care (01) ==
PROVIDERS: Physician Assistant; Emergency Provider Internal Medicine; PCP Internal Medicine
DX: R21 Rash and other nonspecific skin eruption (principal); R11.2 Nausea with vomiting, unspecified; F41.9 Anxiety disorder, unspecified; F43.0 Acute stress reaction; R19.7 Diarrhea, unspecified; Z11.52 Encounter for screening for COVID-19; Z79.899 Other long term (current) drug therapy
CPT/HCPCS: 80053; 81001; 83690; 85025; 87502; 87635; 99283; 99284

== ENCOUNTER 2023-06-09 14:33 | Emergency (ER) | payer MEDICARE, SELFPAY ==
--- NOTE | 2023-06-09 14:44 | MHC.CARE ---
CARE Team recieved a call from [facility] Coresponse clincian Pauly Alegre, Pt was placed on a sect 12 secondary to medical complaints / inability to care for herself. Pt over the past 7-10 days has had increase in agitation , depression , anxiety, not sleeping and difficulty taking of herself. Pt recently had fallen and broken her neck, these behaviors have begun after the fall and stay at [facility] for STR.
[2023-06-09 14:48] VITALS: BP 150/90; BP 191/72; PULSE 66; PULSE 70; RESP 16; TEMP 36.5; O2SAT 99; BMI 34.2
--- NOTE | 2023-06-09 14:51 | ECG_ITS ---
Test Reason : ELECTROLYTE ABNORMALITY Blood Pressure : / mmHG Vent. Rate : 070 BPM Atrial Rate : 070 BPM P-R Int : 204 ms QRS Dur : 114 ms QT Int : 450 ms P-R-T Axes : 110 -88 032 degrees QTc Int : 486 ms Atrial-paced rhythm Left axis deviation Pulmonary disease pattern Minimal voltage criteria for LVH, may be normal variant ( [place] product ) Abnormal ECG When compared with ECG of 26-APR-2023 05:15, QRS axis Shifted left T wave amplitude has increased in Lateral leads Referred By: Claudia Bowens Electronically Signed By:KELLY DIAZ MD
--- NOTE | 2023-06-09 14:52 | ED_ITS ---
HPI - General Adult General Chief complaint: Nausea/Vomiting/Diarrhea Stated complaint: nausea, severe anxiety per ems Time Seen by Provider: 06/09/23 14:37 Source: patient, family and EMS Mode of arrival: EMS Limitations: no limitations History of Present Illness HPI narrative: Patient comes to the emergency room complaining of nausea and diarrhea for 4 days. Patient complaining of anxiety. Patient's is at bedside, patient did not want to come to the emergency room, however her insisted, per EMS, the patient had to be Section 12 by a [facility] clinician in the field, for anxiety and depression, Patient has no psychiatric symptoms. Patient very anxious, no depression , no suicidal or homicidal ideation. Patient complaining of abdominal cramping but no significant abdominal pain, no chest pain or shortness of breath. Two months ago, patient tested positive for C diff. of note, patient came here to the emergency room for the same complaint. Related Data Home Medications Medication Instructions Recorded Confirmed betamethasone dipropionate 0.05 % 1 appl topical DAILY PRN Rash 03/26/23 04/26/23 topical cream digoxin 125 mcg (0.125 mg) tablet 125 mcg PO DAILY 03/26/23 04/26/23 ezetimibe 10 mg tablet (Zetia) 10 mg PO DAILY 03/26/23 04/26/23 fesoterodine 8 mg tablet,extended 8 mg PO DAILY 03/26/23 04/26/23 release 24 hr (Toviaz) gabapentin 600 mg tablet 600 mg PO TID 03/26/23 04/26/23 insulin degludec 100 unit/mL (3 17 unit subcut BEDTIME 03/26/23 04/26/23 mL) subcutaneous pen (Tresiba FlexTouch U-100 insulin) multivitamin 1 tab PO DAILY 03/26/23 04/26/23 cholecalciferol (vitamin D3) 50 50 mcg PO DAILY 04/23/23 04/26/23 mcg (2,000 unit) tablet estradiol 0.01% (0.1 mg/gram) 1 appl vaginal MOWEFR@0900 04/26/23 04/26/23 vaginal cream losartan 25 mg tablet 25 mg PO DAILY 04/26/23 04/26/23 Previous Rx's Medication Instructions Recorded blood-glucose meter (Renaissance LearningTouch #1 ea 06/12/22 Verio Meter) acetaminophen 325 mg tablet 650 mg (2 x 325 mg) PO Q6H PRN 03/26/23 Pain (Scale Score 1-3) #60 tabs atenolol 50 mg tablet 50 mg PO BID 90 days #180 tabs 03/26/23 baclofen 10 mg tablet 10 mg PO TID PRN muscle spasm 30 03/26/23 days #90 tabs blood sugar diagnostic (OneTouch #100 ea 03/26/23 Verio test strips) bbizdhpjzr-jfzdmhjivydjo-nyufmbfh 1 tab PO Q4H PRN Headache 4 days 03/26/23 50 mg-325 mg-40 mg tablet #24 tabs cyanocobalamin (vitamin B-12) 1,000 mcg PO DAILY 90 days #90 tabs 03/26/23 1,000 mcg tablet empagliflozin 25 mg tablet 25 mg PO DAILY 90 days #90 tabs 03/26/23 (Jardiance) fenofibrate 160 mg tablet 160 mg PO DAILY 90 days #90 tabs 03/26/23 fluticasone propionate 50 1 spray intranasal DAILY 90 days 03/26/23 mcg/actuation nasal #16 grams spray,suspension furosemide 40 mg tablet 40 mg PO DAILY 30 days #30 tabs 03/26/23 hydroxychloroquine 200 mg tablet 200 mg PO BID #180 tabs 03/26/23 (Plaquenil) ketoconazole 2 % topical cream 1 appl topical BID 30 days #30 03/26/23 grams lancets #100 ea 03/26/23 loratadine 10 mg tablet 10 mg PO DAILY 90 days #90 tabs 03/26/23 magnesium 200 mg tablet 200 mg PO DAILY 90 days #90 tabs 03/26/23 metformin 1,000 mg tablet 1,000 mg PO BIDWM 90 days #180 tabs 03/26/23 mirabegron 50 mg tablet,extended 50 mg PO DAILY 90 days #90 tabs 03/26/23 release 24 hr (Myrbetriq) omeprazole 40 mg capsule,delayed 40 mg PO DAILY@0630 90 days #90 03/26/23 release caps riboflavin (vitamin B2) 400 mg 400 mg PO DAILY #30 tabs 03/26/23 tablet rivaroxaban 20 mg tablet (Xarelto) 20 mg PO DAILY@1700 90 days #90 03/26/23 tabs ropinirole 0.25 mg tablet 0.5 mg (2 x 0.25 mg) PO BEDTIME 90 03/26/23 days #180 tabs rosuvastatin 40 mg tablet (Crestor) 40 mg PO BEDTIME 90 days #90 tabs 03/26/23 sennosides 8.6 mg tablet (senna) 17.2 mg (2 x 8.6 mg) PO BEDTIME 03/26/23 PRN Constipation 90 days #90 tabs thiamine HCl (vitamin B1) 100 mg 100 mg PO DAILY 90 days #90 tabs 03/26/23 tablet clonazepam 0.5 mg tablet 0.5 mg PO BID #60 tabs 04/10/23 venlafaxine 75 mg capsule,extended 75 mg PO DAILY #30 caps 04/10/23 release 24 hr cranberry extract 425 mg capsule 425 mg PO BID #60 caps 05/30/23 nitrofurantoin 100 mg PO BID #14 caps 05/30/23 monohydrate/macrocrystals 100 mg capsule (Macrobid) dulaglutide 3 mg/0.5 mL 3 mg (0.5 mL) subcut QWEEK 30 days 06/01/23 subcutaneous pen injector #2.5 mL ([employer]) nystatin 100,000 unit/gram topical 1 appl topical DAILY PRN rash 2 06/01/23 cream weeks #15 grams docusate sodium 100 mg capsule 100 mg PO BID PRN constipation 90 06/02/23 (DOK) days #180 caps lidocaine 4 % topical patch 1 patch topical DAILY PRN pain 30 06/02/23 (Aspercreme (lidocaine)) days #15 ea oxycodone 5 mg tablet 5 mg PO Q6H PRN pain 30 days #90 06/02/23 tabs nystatin 100,000 unit/gram topical 1 appl topical BID #60 grams 06/08/23 powder Allergies Allergy/AdvReac Type Severity Reaction Status Date / Time morphine [Morphine] Allergy Severe ITCHING, Verified 06/09/23 14:54 hives cefdinir Allergy Intermediate hives Verified 06/09/23 14:54 sulfamethoxazole Allergy Intermediate RASH Verified 06/09/23 14:54 trimethoprim Allergy Intermediate RASH Verified 06/09/23 14:54 duloxetine AdvReac Severe altered Verified 06/09/23 14:54 behavior Review of Systems 2 Review of Systems: Constitutional : No Weight loss, No Fever, No Chills, No Night Sweats, No Fatigue, No Malaise ENT/Mouth : No Hearing loss, No Ear Pain, No Nasal Congestion, No Sinus Pain, No Hoarseness, No sore throat, No Rhinorrhea, No Swallowing Difficulty Eyes: No Eye Pain, No Swelling, No Redness, No Foreign Body, No Discharge, No Vision Changes Cardiovascular : No Chest Pain, No SOB, No Dyspnea on Exertion, No Orthopnea, No Edema, No Palpitations Respiratory : No Cough, No Sputum, No Wheezing, No Smoke Exposure, No Dyspnea Gastrointestinal : Complaining of nausea with no vomiting, complaining of watery diarrhea, mild abdominal cramping intermittently, no severe abdominal pain Genitourinary : no irregular bleeding, No Dysuria, No Urinary Frequency, No Hematuria, No Urinary Incontinence, No Urgency, No Flank Pain, No Urinary Flow Changes, No Hesitancy Musculoskeletal : No joint pain, No Myalgias, No Joint Swelling Skin : No Skin Lesions, No rash Neuro : No Weakness, No Numbness, No Paresthesias, No Loss of Consciousness, No Dizziness, No Headache Psych : Complaining of anxiety and Depression, No SI/HI/AH/VH, No Social Issues, Heme/Lymph: No Bruising, No Bleeding,No Lymphadenopathy Endocrine : No Polyuria, No Polydipsia, No Temperature Intolerance PMFSH Past Medical History Medical History (HFpEF) heart failure with preserved ejection fraction Mild recurrent major depression Hyperlipidemia LDL goal <70 Post-dural puncture headache PONV (postoperative nausea and vomiting) Positive occult stool blood test [place] Headache Anemia Acute upper GI bleed Diabetic polyneuropathy COVID-19 Thiamine deficiency Hand pain CVA (cerebral vascular accident) Head injury Left shoulder pain Left knee pain Left hip pain Left hand pain Dizziness Diabetic neuropathy Diabetes type 2, uncontrolled Type 2 diabetes mellitus with other diabetic kidney complication Proteinuria Type 2 diabetes mellitus with diabetic polyneuropathy Dyslipidemia Obesity due to excess calories Other and unspecified hyperlipidemia Chronic heart failure with preserved ejection fraction (HFpEF) Anemia Thrombocytosis Pulmonary hypertension Ischemic stroke Paroxysmal atrial fibrillation Atherosclerotic cardiovascular disease Hospital discharge follow-up Thrombus Urge urinary incontinence Iron deficiency anemia Pure hypercholesterolemia Essential hypertension Diabetes mellitus Lumbar degenerative disc disease Surgical History S/P laminectomy S/P cardiac pacemaker procedure S/P insertion of spinal cord stimulator H/O colonoscopy History of Mohs micrographic surgery for skin cancer Hx of cervical spine surgery History of partial hysterectomy Hx of cardiac cath Family History Family History Father Rectal cancer Hypertension Arthritis of knee CVD (cardiovascular disease) Mother Hypertension CVD (cardiovascular disease) Myocardial infarction Diabetes Social History Social History Household Members: Spouse Housing: Apartment Are you a primary personal care worker to a significant other at home: No Do you presently have visiting nurse or other home services: No Alcohol intake: never Comment: na Patient Tobacco Use Status: Former Tobacco user Quit Date: 1993 Tobacco use type: Cigarette e-Cigarette/Vaping Use: Never Used Second Hand Smoke Exposure: No Advance Directives: Yes Advance Directives on File: Yes Advance Directives Date on File: 06/09/23 service: No Current occupational status: retired Current occupation: Lt handed Cognitive needs: Yes (scodor/walker) Hearing needs: No Vision needs: Yes (glasses) Physical Exam ED Vital Signs: Vital Signs - 24 hr 06/09/23 14:48 06/09/23 18:45 06/09/23 19:38 Temperature 97.7 F 98.6 F 98.1 F Pulse Rate 70 70 70 Respiratory Rate 16 18 17 Blood Pressure 191/72 H 170/79 H 173/70 H Pulse Oximetry 97 96 Oxygen Delivery Method Room Air Room Air Room Air BMI result Body Mass Index 34.2 Const Other: Appearance: Alert. Oriented X3. Seems a bit anxious Eyes: Pupils equal, round and reactive to light. ENT: Pharynx normal. Neck: Normal inspection. Neck supple. No lymph nodes noted. No crepitus, systolic murmur on the left sternal border CVS: Normal heart rate and rhythm. Pulses normal. Normal S1 and S2 Respiratory: No respiratory distress. Breath sounds normal. No Wheezing. No rales Abdomen: Soft and nontender. No rigidity. No distention. Skin: Skin warm and dry. Normal skin color. Normal skin turgor. Extremities: No lower extremity edema. No Lacerations. No Rash Neuro: No motor deficit. No sensory deficit. Moving all extremities. No slurred speech. CN 2 through 12 grossly intact Psych: calm, cooperative, anxious Course Course Course Narrative: -all of patient's labs pending. -patient is on a Section 12, after being medically cleared, care team will be consulted Medications Administered Discontinued Medications Generic Name Dose Route Start Last Admin Trade Name Mike PRN Reason Stop Dose Admin Clonazepam 1 mg 06/09/23 14:58 06/09/23 15:41 Clonazepam 1 Mg Tablet PO 06/09/23 14:59 1 mg ONCE ONE Administration Sodium Chloride 1,000 mls @ 999 mls/hr 06/09/23 19:15 06/09/23 21:50 Ns IVCONT 06/09/23 20:15 Infused .Q1H1M ONE Infusion Medical Decision Making Medical Decision Making [facility] Narrative: My interpretation of labs: Hematology at baseline, chemistry shows hyponatremia, patient has had hyponatremia in the past, sodium 131. Patient being giving IV fluids. Urinalysis negative for UTI. Patient did not provide a stool sample, patient has not had any bowel movements, unlikely to have active C diff. patient tested negative for COVID and influenza. -patient is on a Section 12 On arrival patient was having a panic attack, given 1 mg of Klonopin, patient usually takes Klonopin at home. -after IV fluids, we will repeat labs to check on sodium status. -once medically cleared, patient needs to be seen by the care team -patient remained stable 22:24: Patient's chemistry improved, sodium within normal limits, patient cleared to be evaluated by the care team Differential Diagnosis Differential Diagnoses: The differential diagnosis associated with the presentation includes (Anxiety, depression, UTI, hyponatremia) Admission/Observation Consideration of admission/observation: Escalation of care including admission/observation considered (medically clear, patient will be seen by the care team) Lab Data [facility] Lab Attestation statement: I reviewed the patient's lab results. 06/09/23 16:08 06/09/23 22:01 Labs: Lab Results 06/09/23 06/09/23 06/09/23 Range/Units 16:08 18:47 22:01 WBC 8.8 (4.8-10.8) X10*3/uL RBC 5.17 (4.20-5.50) X10*6/uL Hgb 14.4 (12.0-16.0) g/dl Hct 42.2 (37.0-47.0) % MCV 81.6 (80.0-98.0) fL MCH 27.9 (27.0-33.0) pg MCHC 34.1 (31.0-35.0) g/dl RDW 16.7 H (11.0-16.0) % Plt Count 383 (160-400) X10*3/uL MPV 9.8 (9.4-12.3) fL Immature Gran % (Auto) 0.5 H (0.0-0.4) % Neut % (Auto) 64.3 (45-73) % Lymph % (Auto) 21.9 (20-40) % Early % (Auto) 10.7 (2-11) % Eos % (Auto) 1.3 (0-4) % Baso % (Auto) 1.3 (0-2) % Lymph # (Auto) 1.9 (1.2-4.9) X10*3/uL Early # (Auto) 0.9 (0.1-1.2) X10*3/uL Eos # (Auto) 0.1 (0.0-0.4) X10*3/uL Baso # (Auto) 0.1 (0.0-0.2) X10*3/uL Abs Immat Gran (auto) 0.04 H (0.00-0.03) X10*3/uL Absolute Neuts (auto) 5.6 (2.0-8.3) x10*3/uL Absolute Nucleated RBC 0.000 (0.0-0.012) X10*3/uL Nucleated RBC % (auto) 0.0 (0.0-0.2) /100WBC Smear Tech's Comments VERIFIED PT 16.6 H (11.1-13.3) SEC INR 1.4 H (0.9-1.1) Sodium 131 L 135 (135-145) mmol/L Potassium 4.1 3.4 (3.3-5.1) mmol/L Chloride 96 100 (96-108) mmol/L Carbon Dioxide 21 L 23 (22-29) mmol/L Anion Gap 18 15 (12-20) BUN 22 H 20 H (9-16) mg/dL Creatinine 0.86 0.80 (0.5-1.4) mg/dL Estim Creat Clear Calc 60.2 64.7 Estimated GFR > 60 > 60 Random Glucose 127 H 136 H (60-115) mg/dL Calcium 10.2 9.7 (8.4-10.2) mg/dL Magnesium 2.1 (1.6-2.6) mg/dL Total Bilirubin 0.4 0.4 (0.0-1.0) mg/dL Direct Bilirubin 0.2 (0.0-0.5) mg/dL AST 47 H 49 H (5-31) U/L ALT 24 23 (0-31) U/L Alkaline Phosphatase 62 61 (39-117) U/L Troponin I High Sens 38.3 H (<3.5-17.0) ng/L Total Protein 7.4 7.1 (6.5-8.0) g/dL Albumin 4.0 3.9 (3.5-5.0) g/dL Lipase 20 (8-78) U/L Urine Color Yellow Urine Appearance Clear Urine pH 6.0 (5.0-9.0) Ur Specific [place] <= 1.005 (1.005-1.025) Urine Protein 100 (2+) H (Neg-Trace) mg/dL Urine Glucose (UA) 500 H (Negative) mg/dL Urine Ketones Negative (Negative) mg/dL Urine Blood Moderate (2+) H (Negative) Urine Nitrite Negative (Negative) Ur Leukocyte Esterase Negative (Negative) Urine RBC 0-2 (0-2) /HPF Urine WBC 0-5 (0-5) /HPF Ur Squamous Epith Cells 3-5 (0-2) /HPF Urine Bacteria None Seen (None Seen) Hyaline Casts 0-2 (0-2) /LPF Critical Care Time Critical Care Time Critical Care Time: Yes Total Critical Care Time: 60 Attestation: I have personally provided critical care time. Time includes review of lab data, radiology results, discussion with consultants, and monitoring for potential decompensation. Intervention performed as documented. Discharge Plan Discharge Clinical Impression: Anxious depression, Acute hyponatremia Patient Disposition: Still a Patient Prescriptions: No Action (DME) blood-glucose meter [OneTouch Verio Meter] Misc See Rx Instructions .Route Qty: 1 0RF Rx Instructions: As directed acetaminophen 325 mg tablet 650 mg PO Q6H PRN (Reason: Pain (Scale Score 1-3)) Qty: 60 0RF atenolol 50 mg tablet 50 mg PO BID 90 Days Qty: 180 1RF Protocol: Hold for SBP/HR < HOLD for SBP < : 90 HOLD for HR < : 60 (DME) OneTouch Verio test strips Strip See Rx Instructions .Route Qty: 100 5RF Rx Instructions: Use 1 test strip twice a day cyanocobalamin (vitamin B-12) 1,000 mcg tablet 1,000 mcg PO DAILY 90 Days Qty: 90 3RF Jardiance 25 mg tablet 25 mg PO DAILY 90 Days Qty: 90 3RF fenofibrate 160 mg tablet 160 mg PO DAILY 90 Days Qty: 90 3RF fluticasone propionate 50 mcg/actuation spray,suspension 1 spray intranasal DAILY 90 Days Qty: 16 3RF Rx Instructions: administer into each nostril furosemide 40 mg tablet 40 mg PO DAILY 30 Days Qty: 30 1RF hydroxychloroquine [Plaquenil] 200 mg tablet 200 mg PO BID Qty: 180 3RF (DME) lancets Misc See Rx Instructions .Route Qty: 100 3RF Rx Instructions: USe 1 lancet once a day ketoconazole 2 % cream 1 appl topical BID 30 Days Qty: 30 0RF loratadine 10 mg tablet 10 mg PO DAILY 90 Days Qty: 90 0RF magnesium 200 mg tablet 200 mg PO DAILY 90 Days Qty: 90 5RF metformin 1,000 mg tablet 1,000 mg PO BIDWM 90 Days Qty: 180 1RF Myrbetriq 50 mg tablet extended release 24 hr 50 mg PO DAILY 90 Days Qty: 90 1RF omeprazole 40 mg capsule,delayed release(DR/EC) 40 mg PO DAILY@0630 90 Days Qty: 90 1RF riboflavin (vitamin B2) 400 mg tablet 400 mg PO DAILY Qty: 30 0RF Xarelto 20 mg tablet 20 mg PO DAILY@1700 90 Days Qty: 90 1RF ropinirole 0.25 mg tablet 0.5 mg PO BEDTIME 90 Days Qty: 180 1RF rosuvastatin [Crestor] 40 mg tablet 40 mg PO BEDTIME 90 Days Qty: 90 1RF sennosides [senna] 8.6 mg tablet 17.2 mg PO BEDTIME PRN (Reason: Constipation) 90 Days Qty: 90 1RF thiamine HCl (vitamin B1) 100 mg tablet 100 mg PO DAILY 90 Days Qty: 90 1RF baclofen 10 mg tablet 10 mg PO TID PRN (Reason: muscle spasm) 30 Days Qty: 90 1RF feotldqdus-pinoghxdmcqdj-dggu 50-325-40 mg tablet 1 tab PO Q4H PRN (Reason: Headache) 4 Days Qty: 24 0RF nystatin 100,000 unit/gram cream 1 appl topical DAILY PRN (Reason: rash) 14 Days Qty: 15 1RF Trulicity 3 mg/0.5 mL pen injector 3 mg subcut QWEEK 30 Days Qty: 2.5 6RF docusate sodium [DOK] 100 mg capsule 100 mg PO BID PRN (Reason: constipation) 90 Days Qty: 180 2RF oxycodone 5 mg tablet 5 mg PO Q6H PRN (Reason: pain) 30 Days Qty: 90 0RF lidocaine [Aspercreme (lidocaine)] 4 % adhesive patch,medicated 1 patch topical DAILY PRN (Reason: pain) 30 Days Qty: 15 2RF venlafaxine 75 mg Capsule,Extended Release 24hr 75 mg PO DAILY Qty: 30 0RF clonazepam 0.5 mg Tablet 0.5 mg PO BID Qty: 60 0RF losartan 25 mg tablet 25 mg PO DAILY estradiol 0.01 % (0.1 mg/gram) cream 1 appl vaginal MOWEFR@0900 nystatin 100,000 unit/gram powder 1 appl topical BID Qty: 60 2RF betamethasone dipropionate 0.05 % cream 1 appl topical DAILY PRN (Reason: Rash) digoxin 125 mcg (0.125 mg) tablet 125 mcg PO DAILY gabapentin 600 mg tablet 600 mg PO TID multivitamin Tablet 1 tab PO DAILY fesoterodine [Toviaz] 8 mg tablet extended release 24 hr 8 mg PO DAILY ezetimibe [Zetia] 10 mg tablet 10 mg PO DAILY insulin degludec [Tresiba FlexTouch U-100] 100 unit/mL (3 mL) insulin pen 17 unit subcut BEDTIME cholecalciferol (vitamin D3) 50 mcg (2,000 unit) tablet 50 mcg PO DAILY cranberry extract 425 mg capsule 425 mg PO BID Qty: 60 5RF Rx Instructions: administer with meals nitrofurantoin monohyd/m-cryst [Macrobid] 100 mg capsule 100 mg PO BID Qty: 14 0RF Rx Instructions: must administer with a meal/food
[2023-06-09] MEDS: clonazePAM 1 MG TABLET PO (15:41)
[2023-06-09 16:22] LABS: INTERNATIONAL NORM RATIO 1.4 (0.9-1.1); Prothrombin Time 16.6 SEC (11.1-13.3)
[2023-06-09 16:29] LABS: Basophils Absolute Auto 0.1 X10*3/uL (0.0-0.2); Basophils Percent Auto 1.3 % (0-2); Eosinophils Absolute Auto 0.1 X10*3/uL (0.0-0.4); Eosinophils Percent Auto 1.3 % (0-4); Hematocrit 42.2 % (37.0-47.0); Hemoglobin 14.4 g/dl (12.0-16.0); Imm Gran Abs Auto 0.04 X10*3/uL (0.00-0.03); Imm Gran Pct Auto 0.5 % (0.0-0.4); Lymphocytes Absolute Auto 1.9 X10*3/uL (1.2-4.9); Lymphocytes Percent Auto 21.9 % (20-40); MANUAL DIFF FLAG SCAN; Mean Corpuscular HGB Conc 34.1 g/dl (31.0-35.0); Mean Corpuscular Hemoglobin 27.9 pg (27.0-33.0); Mean Corpuscular Volume 81.6 fL (80.0-98.0); Mean Platelet Volume 9.8 fL (9.4-12.3); Monocytes Absolute Auto 0.9 X10*3/uL (0.1-1.2); Monocytes Percent Auto 10.7 % (2-11); Neutrophils Absolute Auto 5.6 x10*3/uL (2.0-8.3); Neutrophils Percent Auto 64.3 % (45-73); PLT CLUMP 1; Red Blood Count 5.17 X10*6/uL (4.20-5.50); Red Cell Distribution Width 16.7 % (11.0-16.0); SCAN SMEAR FLAG 1
[2023-06-09 16:32] LABS: Alanine Aminotransferase 24 U/L (0-31); Alkaline Phosphatase 62 U/L (39-117); Anion Gap 18 (12-20); Aspartate Amino Transferase 47 U/L (5-31); Bilirubin Direct 0.2 mg/dL (0.0-0.5); Bilirubin Total 0.4 mg/dL (0.0-1.0); Blood Urea Nitrogen 22 mg/dL (9-16); Calcium 10.2 mg/dL (8.4-10.2); Carbon Dioxide 21 mmol/L (22-29); Chloride 96 mmol/L (96-108); Creatinine Clr Calc Pharmacy 60.2; Estimated Glomerular Filt Rate > 60; Glucose Random 127 mg/dL (60-115); Lipase 20 U/L (8-78); Magnesium 2.1 mg/dL (1.6-2.6); Potassium 4.1 mmol/L (3.3-5.1); Sodium 131 mmol/L (135-145); Total Protein 7.4 g/dL (6.5-8.0)
[2023-06-09 16:35] LABS: Troponin-I High Sensitivity 38.3 ng/L (<3.5-17.0)
[2023-06-09 16:43] LABS: Platelet Count 383 X10*3/uL (160-400); White Blood Count 8.8 X10*3/uL (4.8-10.8)
[2023-06-09 16:44] LABS: SLIDE REVIEW VERIFIED
[2023-06-09 18:45] VITALS: BP 170/79; PULSE 70; RESP 18; TEMP 37; O2SAT 97
[2023-06-09 18:53] LABS: Appearance Urine Clear; Color Urine Yellow; Glucose Urine UA 500 mg/dL (Negative); Leukocyte Esterase Urine Negative (Negative); Nitrite Urine Negative (Negative); Specific Gravity - Urine <= 1.005 (1.005-1.025); UMIC TRIGGER UACC YES; Urine Blood Moderate (2+) (Negative); Urine Ketones Negative (Negative); Urine Protein 100 (2+) mg/dL (Neg-Trace)
[2023-06-09 18:58] LABS: Bacteria Urine None Seen (None Seen); Hyaline Casts Urine 0-2 /LPF (0-2); RBC Urine 0-2 /HPF (0-2); WBC Urine 0-5 /HPF (0-5)
[2023-06-09 19:38] VITALS: BP 173/70; PULSE 70; RESP 17; TEMP 36.7; O2SAT 96
[2023-06-09] MEDS: 0.9 % Sodium Chloride 1,000 ML 999 ML IVCONT (20:05)
--- NOTE | 2023-06-09 22:11 | PC.NURSE ---
Addendum entered by Radha Worthington 06/10/23 07:40: Denies SI/HI/AH/VH. Original Note: This signwriter assumed care of this Pt at 1900. Pt A&Ox3, very anxious, requesting zofran not eating makes me feel like vomiting, It helps calm my guts . Pt not actively vomiting, brought milkshake. Pt reports not being able to eat for 3 days. Pt has not had BM since being here. 1 assist to bedside commode. Pt requesting PO fluids and food.
[2023-06-09 22:19] LABS: Alanine Aminotransferase 23 U/L (0-31); Albumin Level 3.9 g/dL (3.5-5.0); Alkaline Phosphatase 61 U/L (39-117); Anion Gap 15 (12-20); Aspartate Amino Transferase 49 U/L (5-31); Bilirubin Total 0.4 mg/dL (0.0-1.0); Blood Urea Nitrogen 20 mg/dL (9-16); Calcium 9.7 mg/dL (8.4-10.2); Carbon Dioxide 23 mmol/L (22-29); Chloride 100 mmol/L (96-108); Creatinine Clr Calc Pharmacy 64.7; Estimated Glomerular Filt Rate > 60; Glucose Random 136 mg/dL (60-115); Potassium 3.4 mmol/L (3.3-5.1); Sodium 135 mmol/L (135-145); Total Protein 7.1 g/dL (6.5-8.0)
[2023-06-10] VITALS (8 sets, daily range): BP systolic 107–191; BP diastolic 61–86; PULSE 70–123; RESP 15–21; TEMP 36.4–36.9; O2SAT 94–100
--- NOTE | 2023-06-10 | ECG_ITS ---
Test Reason : arrythmia Blood Pressure : / mmHG Vent. Rate : 112 BPM Atrial Rate : 000 BPM P-R Int : 000 ms QRS Dur : 106 ms QT Int : 374 ms P-R-T Axes : 000 160 023 degrees QTc Int : 510 ms Atrial fibrillation with rapid ventricular response Left posterior fascicular block Minimal voltage criteria for LVH, may be normal variant ( [place] product ) Inferior infarct , age undetermined Abnormal ECG When compared with ECG of 09-JUN-2023 15:37, Atrial fibrillation has replaced Electronic atrial pacemaker Vent. rate has increased BY 42 BPM Left posterior fascicular block is now Present ST now depressed in Lateral leads Referred By: Generic ED Physician Electronically Signed By:KELLY DIAZ MD
--- NOTE | 2023-06-10 00:27 | PC.NURSE ---
Med rec done, Pt able to confirm home meds at bedside.
[2023-06-10] MEDS: Nystatin Powder 15 GM BOTTLE 1 APPL TOPICAL ×3 (02:02→21:35)
[2023-06-10] MEDS: clonazePAM 0.5 MG TABLET PO ×3 (02:02→21:26)
[2023-06-10] MEDS: Gabapentin 600 MG TABLET PO ×4 (02:03→21:26)
[2023-06-10] MEDS: Hydroxychloroquine Sulfate 200 MG TABLET PO ×3 (02:04→21:26)
[2023-06-10] MEDS: atenoloL 50 MG TABLET PO ×3 (02:04→21:35)
[2023-06-10] MEDS: Butalb/Acetamin/Caff 50/325/40 TABLET 1 TAB PO (02:10)
[2023-06-10] MEDS: rOPINIRole HCL 0.5 MG TABLET PO ×2 (02:28→21:35)
--- NOTE | 2023-06-10 03:37 | PC.NURSE ---
Pt restless, yelling out for help, unable to redicted to use call short. Pt one assist to bedside commode.
--- NOTE | 2023-06-10 05:25 | MHC.EDTECH ---
800Ml urine output emptied from sunction canister
--- NOTE | 2023-06-10 06:20 | PC.NURSE ---
Pt noted to be in A-fib on monitor, EKG obtained, Pt reports hx, denies CP. Provider [place] made aware. Awaiting for new orders.
[2023-06-10] MEDS: Omeprazole 40 MG CAPSULE.DR PO (06:29)
[2023-06-10] MEDS: Acetaminophen 325 MG TABLET 650 MG PO ×2 (07:22→15:13)
[2023-06-10 07:23] LABS: Glucose, Whole Blood 119 mg/dL (60-115)
[2023-06-10] MEDS: Loratadine 10 MG TABLET PO (09:38)
[2023-06-10] MEDS: Ezetimibe 10 MG TABLET PO (09:38)
[2023-06-10] MEDS: Multivitamin TABLET 1 TAB PO (09:39)
[2023-06-10] MEDS: Thiamine HCL 100 MG TABLET PO (09:39)
[2023-06-10] MEDS: Magnesium Oxide 400 MG TABLET 200 MG PO (09:39)
[2023-06-10] MEDS: Cholecalciferol (Vitamin D3) 25 MCG TABLET 50 MCG PO (09:39)
[2023-06-10] MEDS: Losartan Potassium 25 MG TABLET PO (09:40)
[2023-06-10] MEDS: Cyanocobalamin (Vitamin B-12) 1,000 MCG TABLET 1000 MCG PO (09:40)
[2023-06-10] MEDS: Furosemide 40 MG TABLET PO (09:41)
--- NOTE | 2023-06-10 09:53 | PC.NURSE ---
called pharmacy for meds not available in pyxis
[2023-06-10] MEDS: Venlafaxine HCl ER 75 MG CAP.ER.24H PO (10:05)
[2023-06-10] MEDS: Fenofibrate 160 MG TABLET PO (10:05)
[2023-06-10] MEDS: Empagliflozin 25 MG TABLET PO (10:05)
[2023-06-10] MEDS: Mirabegron 50 MG TAB.ER.24H PO (10:06)
--- NOTE | 2023-06-10 10:15 | PC.NURSE ---
at bedside, requested that bring in medications that [facility] does not have available in [facility].
[2023-06-10 13:15] LABS: Glucose, Whole Blood 131 mg/dL (60-115)
[2023-06-10] MEDS: DULAGLUTIDE 3 MG/0.5 ML 3 EACH SUBCUT (15:08)
[2023-06-10] MEDS: Baclofen 10 MG TABLET PO (15:13)
--- NOTE | 2023-06-10 17:03 | PC.NURSE ---
pt met with care team
--- NOTE | 2023-06-10 17:03 | PC.NURSE ---
pt incontinent of urine, linens changed, recliner in room and moved pt into recliner. reports no pain at this time
[2023-06-10 18:42] LABS: Glucose, Whole Blood 142 mg/dL (60-115)
[2023-06-10] MEDS: Rivaroxaban 20 MG TABLET PO (19:42)
--- NOTE | 2023-06-10 20:10 | MHC.CM.ED ---
CM received consult from Dr. Bowens. Pt was seen by CARE team. IPLOC not met. Per Care Team, they will refer patient to [facility] for outpatient services. PT is pending. Pt has had frequent falls. Pt is known to CM. Pt had a cervical fx on December 10, 2022. Spent 4 months in [facility]. Has been home since end of March. Was active with [facility]. Had home PT. Was discharged. Pt feels she needs more therapy. 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 Pt states she needs help with managing her medications, as she takes 32 pills daily. HCP is on file. HCP/ Jamal ([phone]). Will make referrals to Acute rehabs, pending PT evaluation. CM will follow for discharge planning.
[2023-06-10 20:46] LABS: Glucose, Whole Blood 228 mg/dL (60-115)
[2023-06-10] MEDS: Atorvastatin Calcium 80 MG TABLET PO (21:26)
[2023-06-10] MEDS: Insulin Glargine,Hum.rec.anlog 100 UNIT/ML 10 ML VIAL 12 UNIT SUBCUT (21:27)
--- NOTE | 2023-06-10 21:57 | MHC.CARE ---
CARE Team evaluation complete. Pt has been referred to Physical Therapy and Case Management as she does not meet psychiatric IPLOC. Pt has expressed she would like a referral to [facility] therapy/psychiatry to address anxiety/depression symptoms.
[2023-06-11] MEDS: Omeprazole 40 MG CAPSULE.DR PO (05:20)
[2023-06-11 05:43] VITALS: BP 140/72; PULSE 70; RESP 16; TEMP 36.5; O2SAT 97
[2023-06-11] MEDS: Baclofen 10 MG TABLET PO (05:56)
[2023-06-11] MEDS: Acetaminophen 325 MG TABLET 650 MG PO (05:56)
--- NOTE | 2023-06-11 07:17 | PC.NURSE ---
PHYSICAL THERAPY AT BEDSIDE. PT AWARE OF PLAN OF CARE.
[2023-06-11 07:32] VITALS: BP 140/72; PULSE 70; O2SAT 97
[2023-06-11 07:52] LABS: Glucose, Whole Blood 137 mg/dL (60-115)
[2023-06-11 08:31] VITALS: BP 104/52; PULSE 70; RESP 20; TEMP 36.3; O2SAT 97
--- NOTE | 2023-06-11 08:31 | MHC.CM.ED ---
Addendum entered by Nadia Contreras 06/11/23 11:24: No acute rehab bed offers made at this time. Met with patient and , Jamal. [facility] application has been submitted about a month ago. Per their electrical controls designer, it can take up to 60 days to hear from [facility]. Patient and Jamal do not have the funds to privately pay for SNF. Patient has been active with [facility] in the past. Patient states she did not care for [facility]. Patient would prefer referral to [facility]. Referral made. [facility] is able to accept patient. Patient and Jamal asking about psych follow up. When speaking with Margi from the Care Team, patient requested assistance finding outpatient psych follow up due to anxiety. Per Sariah, referral has been made to [facility]. They will contact patient to arrange appointment. Jamal will return to the ER around 130pm to transport patient home. Patient, Jmaal, Zuri RN and [facility] aware. Original Note: Patient remains in ER overflow. Physical therapy eval completed. Rehab is recommended. Clinical updates sent to all 3 acute rehab facilities. [facility] is 1st choice. Continue to monitor for d/c needs.
--- NOTE | 2023-06-11 08:55 | PC.NURSE ---
PT IS A/O X 4 NO SOB/EMILEE NOTED SPEAKS IN FULL SENTENCES. ONE ASSIST TO RECLINER WITH WALKER. PT C/O 10/19 NECK/HEAD PAIN/DISC.
[2023-06-11] MEDS: Furosemide 40 MG TABLET PO (09:00)
[2023-06-11] MEDS: Cholecalciferol (Vitamin D3) 25 MCG TABLET 50 MCG PO (09:00)
[2023-06-11] MEDS: Magnesium Oxide 400 MG TABLET 200 MG PO (09:00)
[2023-06-11] MEDS: Loratadine 10 MG TABLET PO (09:00)
[2023-06-11] MEDS: Nystatin Powder 15 GM BOTTLE 1 APPL TOPICAL (09:00)
[2023-06-11] MEDS: Venlafaxine HCl ER 75 MG CAP.ER.24H PO (09:02)
[2023-06-11] MEDS: Hydroxychloroquine Sulfate 200 MG TABLET PO (09:02)
[2023-06-11] MEDS: Cyanocobalamin (Vitamin B-12) 1,000 MCG TABLET 1000 MCG PO (09:02)
[2023-06-11] MEDS: Fenofibrate 160 MG TABLET PO (09:06)
[2023-06-11] MEDS: Empagliflozin 25 MG TABLET PO (09:06)
[2023-06-11] MEDS: Ezetimibe 10 MG TABLET PO (09:06)
[2023-06-11] MEDS: Mirabegron 50 MG TAB.ER.24H PO (09:07)
[2023-06-11] MEDS: Losartan Potassium 25 MG TABLET PO (09:07)
[2023-06-11] MEDS: atenoloL 50 MG TABLET PO (09:08)
[2023-06-11] MEDS: clonazePAM 0.5 MG TABLET PO (09:08)
[2023-06-11] MEDS: Multivitamin TABLET 1 TAB PO (09:08)
[2023-06-11] MEDS: Gabapentin 600 MG TABLET PO (09:08)
[2023-06-11] MEDS: Thiamine HCL 100 MG TABLET PO (09:08)
[2023-06-11] MEDS: Docusate Sodium 100 MG CAPSULE PO (09:15)
[2023-06-11] MEDS: Butalb/Acetamin/Caff 50/325/40 TABLET 1 TAB PO (09:15)
[2023-06-11 12:40] LABS: COVID-19 Test Negative (Negative); IDNOW Serial# 152EDE1D
[2023-06-11 13:30] LABS: CDiff Gene PCR POSITIVE (Negative)
--- NOTE | 2023-06-11 14:02 | MHC.CARE ---
RAD Team completed an CC referral for this individual. Will follow up tomorrow 06/12/23 to confirm receipt and intake timeline.
[2023-06-11 14:04] LABS: CDIFF Internal ctrl Dots and bkg OK (V); CDiff Toxin Negative (Negative)
== END 2023-06-11 13:20 | disposition home or self-care (01) ==
PROVIDERS: Physician Assistant Medical; Emergency Provider Emergency Medicine; PCP Internal Medicine
DX: F32.A Depression, unspecified (principal); E87.1 Hypo-osmolality and hyponatremia; I49.9 Cardiac arrhythmia, unspecified; I48.91 Unspecified atrial fibrillation; R19.7 Diarrhea, unspecified; R11.0 Nausea; E11.9 Type 2 diabetes mellitus without complications; Z79.899 Other long term (current) drug therapy; Z11.52 Encounter for screening for COVID-19
CPT/HCPCS: 36415; 80048; 80053; 80076; 81001; 82947; 83690; 83735; 84484; 85025; 85610; 87324; 87493; 87635; 93005; 96360; 96361; 97162; 99285; S9485

== ENCOUNTER → 2023-06-09 14:51 | Outpatient (BNV) | payer MEDICARE, SELFPAY | PROVIDERS: Emergency Provider Emergency Medicine; PCP Internal Medicine; Visit Provider Internal Medicine Cardiovascular Disease | DX: R94.31 Abnormal electrocardiogram [ECG] [EKG] (principal) | CPT/HCPCS: 93010 ==

== ENCOUNTER → 2023-06-10 06:41 | Outpatient (BNV) | payer MEDICARE, SELFPAY | PROVIDERS: Emergency Provider Emergency Medicine; PCP Internal Medicine; Visit Provider Internal Medicine Cardiovascular Disease | DX: I48.91 Unspecified atrial fibrillation (principal); I44.5 Left posterior fascicular block; R94.31 Abnormal electrocardiogram [ECG] [EKG] | CPT/HCPCS: 93010 ==

== ENCOUNTER 2023-07-15 01:17 | Inpatient (IN) | payer MEDICARE, SELFPAY ==
[2023-07-15] VITALS (10 sets, daily range): BP systolic 96–177; BP diastolic 40–79; PULSE 70–89; RESP 13–27; TEMP 36.4–36.8; O2SAT 90–98; BMI 36.9
--- NOTE | ~2023-07-15 | XR_ITS ---
EXAMINATION: XR CHEST CLINICAL INFORMATION: Chest pain COMPARISON: 04/26/2023 TECHNIQUE: Frontal view of the chest was obtained. FINDINGS: Left-sided pacemaker lead tips overlie the right atrium and right ventricle. Redemonstrated spinal leads. Lung volumes are symmetric. There is patchy airspace opacity at the left lung base. No evidence of pneumothorax or significant pleural effusion. Cardiac silhouette appears near the upper limits of normal in size. Calcification is present at the aortic arch. No acute osseous findings are seen. XR/XR chest 1V IMPRESSION: Patchy left basilar airspace opacity which may reflect atelectasis or consolidation.
--- NOTE | ~2023-07-15 | CT_ITS ---
EXAMINATION: CT ABDOMEN AND PELVIS WITHOUT CONTRAST CLINICAL INFORMATION: Diarrhea, abdominal pain COMPARISON: 04/26/2023 TECHNIQUE: Multidetector volumetric imaging was performed from the superior aspect of the liver through the pubic symphysis. Sagittal and coronal reformatted images were obtained on the technologist's workstation. This CT examination was performed using dose optimization techniques as appropriate, variously including the following: *Automated exposure control *Adjustment of mA and/or kV according to patient size (this includes techniques or standardized protocols for targeted exams where dose is matched to indication/reason for exam; i.e. extremities or head) *Use of iterative reconstruction technique DLP: 991 mGy-cm FINDINGS: Limited evaluation in some regions due to motion artifact. LUNG BASES: Suboptimally assessed due to motion artifact. Patchy areas of consolidation/ground glass opacity are suspected in addition to atelectasis. Coronary artery calcifications are present. LIVER, GALLBLADDER, AND BILIARY TREE: The liver is normal in size, shape, and attenuation. No focal hepatic lesion or biliary ductal dilatation is identified on this noncontrast exam. Patient is status post cholecystectomy. PANCREAS: Grossly unremarkable. SPLEEN: Grossly unremarkable. ADRENAL GLANDS: Unremarkable. KIDNEYS AND URETERS: No hydronephrosis or obstructing calculus identified. There is nonspecific bilateral perinephric stranding. BLADDER: Unremarkable. GASTROINTESTINAL TRACT: There is colonic diverticulosis without convincing diverticulitis. Bowel gas pattern is nonobstructive. Appendix appears nondilated. No free fluid or free air is seen. ABDOMINAL WALL: No significant hernia is appreciated. LYMPH NODES: No lymphadenopathy is seen, though assessment is limited in the absence of intravenous contrast. VASCULAR: There is extensive atherosclerotic/vascular calcification. PELVIC VISCERA: Patient appears to be status post hysterectomy. OSSEOUS STRUCTURES: Degenerative changes are noted in the spine. Generator device is present in the left flank subcutaneous fat with lead extending to the spine. CT/CT abdomen pelvis wo IV con IMPRESSION: 1. Limited evaluation in some regions due to motion artifact. No definite acute findings identified in the abdomen/pelvis. 2. Patchy areas of pulmonary consolidation/ground glass opacity are suspected, which may be infectious/inflammatory. 3. Colonic diverticulosis without convincing diverticulitis. 4. Coronary artery calcifications. Correlation with cardiac risk factors is recommended.
--- NOTE | 2023-07-15 01:45 | ECG_ITS ---
Test Reason : chest pain Blood Pressure : / mmHG Vent. Rate : 080 BPM Atrial Rate : 080 BPM P-R Int : 184 ms QRS Dur : 102 ms QT Int : 386 ms P-R-T Axes : 043 104 010 degrees QTc Int : 445 ms Atrial paced V sensed rhythm with competing normal sinus rhythm Inferior infarct (cited on or before 10-JUN-2023) Abnormal ECG When compared with ECG of 10-JUN-2023 06:41, Atrial paced rhythm has replaced Atrial fibrillation ST no longer depressed in Lateral leads Referred By: Generic ED Physician Electronically Signed By:Reginald Amato
[2023-07-15 02:10] LABS: MANUAL DIFF FLAG NO
[2023-07-15 02:14] LABS: Basophils Absolute Auto 0.1 X10*3/uL (0.0-0.2); Basophils Percent Auto 0.6 % (0-2); Eosinophils Absolute Auto 0.2 X10*3/uL (0.0-0.4); Eosinophils Percent Auto 1.8 % (0-4); Hematocrit 30.4 % (37.0-47.0); Hemoglobin 9.8 g/dl (12.0-16.0); Imm Gran Abs Auto 0.04 X10*3/uL (0.00-0.03); Imm Gran Pct Auto 0.5 % (0.0-0.4); Lymphocytes Percent Auto 11.9 % (20-40); Mean Corpuscular HGB Conc 32.2 g/dl (31.0-35.0); Mean Corpuscular Hemoglobin 28.2 pg (27.0-33.0); Mean Corpuscular Volume 87.4 fL (80.0-98.0); Monocytes Absolute Auto 0.8 X10*3/uL (0.1-1.2); Monocytes Percent Auto 9.8 % (2-11); Neutrophils Absolute Auto 6.5 x10*3/uL (2.0-8.3); Neutrophils Percent Auto 75.4 % (45-73); Platelet Count 290 X10*3/uL (160-400); Red Blood Count 3.48 X10*6/uL (4.20-5.50); Red Cell Distribution Width 17.3 % (11.0-16.0); White Blood Count 8.6 X10*3/uL (4.8-10.8)
[2023-07-15 02:30] LABS: Alanine Aminotransferase 11 U/L (0-31); Albumin Level 3.1 g/dL (3.5-5.0); Alkaline Phosphatase 65 U/L (39-117); Anion Gap 11 (12-20); Aspartate Amino Transferase 16 U/L (5-31); Bilirubin Direct 0.2 mg/dL (0.0-0.5); Bilirubin Total 0.4 mg/dL (0.0-1.0); Blood Urea Nitrogen 28 mg/dL (9-16); Calcium 8.9 mg/dL (8.4-10.2); Carbon Dioxide 21 mmol/L (22-29); Chloride 105 mmol/L (96-108); Creatinine Clr Calc Pharmacy 59.7; Estimated Glomerular Filt Rate > 60; Glucose Random 258 mg/dL (60-115); Lipase 20 U/L (8-78); Potassium 4.2 mmol/L (3.3-5.1); Sodium 133 mmol/L (135-145); Total Protein 6.2 g/dL (6.5-8.0)
[2023-07-15 02:36] LABS: B Type Natriuretic Peptide 558 pg/mL (<100)
[2023-07-15 02:37] LABS: Troponin-I High Sensitivity 18.5 ng/L (<3.5-17.0)
--- NOTE | 2023-07-15 02:50 | ED.GENADULT ---
HPI - General Adult General Chief complaint: General Medical Stated complaint: diarrhea Time Seen by Provider: 07/15/23 02:11 Source: patient, family (Spouse), EMS and old records reviewed Mode of arrival: EMS Limitations: no limitations History of Present Illness HPI narrative: 73-year-old female brought in by EMS for evaluation of diarrhea for the past 5 days, generalized weakness, reported change mental status and disorientation on and off for the past 4 days, severe irritation in the rectal area from constant diarrhea. No fever, no chills. Related Data Home Medications Medication Instructions Recorded Confirmed betamethasone dipropionate 0.05 % 1 appl topical DAILY PRN Rash 03/26/23 06/10/23 topical cream digoxin 125 mcg (0.125 mg) tablet 125 mcg PO DAILY 03/26/23 04/26/23 ezetimibe 10 mg tablet (Zetia) 10 mg PO DAILY 03/26/23 06/10/23 fesoterodine 8 mg tablet,extended 8 mg PO DAILY 03/26/23 06/10/23 release 24 hr (Toviaz) gabapentin 600 mg tablet 600 mg PO TID 03/26/23 06/10/23 insulin degludec 100 unit/mL (3 17 unit subcut BEDTIME 03/26/23 06/10/23 mL) subcutaneous pen (Tresiba FlexTouch U-100 insulin) multivitamin 1 tab PO DAILY 03/26/23 06/10/23 cholecalciferol (vitamin D3) 50 50 mcg PO DAILY 04/23/23 06/10/23 mcg (2,000 unit) tablet losartan 25 mg tablet 25 mg PO DAILY 04/26/23 06/10/23 Previous Rx's Medication Instructions Recorded blood-glucose meter (NanostimTouch #1 ea 06/12/22 Verio Meter) acetaminophen 325 mg tablet 650 mg (2 x 325 mg) PO Q6H PRN 03/26/23 Pain (Scale Score 1-3) #60 tabs atenolol 50 mg tablet 50 mg PO BID 90 days #180 tabs 03/26/23 baclofen 10 mg tablet 10 mg PO TID PRN muscle spasm 30 03/26/23 days #90 tabs blood sugar diagnostic (OneTouch #100 ea 03/26/23 Verio test strips) rtzjumlfhc-fhslqqhpcrtwq-udtbvdpt 1 tab PO Q4H PRN Headache 4 days 03/26/23 50 mg-325 mg-40 mg tablet #24 tabs cyanocobalamin (vitamin B-12) 1,000 mcg PO DAILY 90 days #90 tabs 03/26/23 1,000 mcg tablet empagliflozin 25 mg tablet 25 mg PO DAILY 90 days #90 tabs 03/26/23 (Jardiance) fenofibrate 160 mg tablet 160 mg PO DAILY 90 days #90 tabs 03/26/23 fluticasone propionate 50 1 spray intranasal DAILY 90 days 03/26/23 mcg/actuation nasal #16 grams spray,suspension hydroxychloroquine 200 mg tablet 200 mg PO BID #180 tabs 03/26/23 (Plaquenil) ketoconazole 2 % topical cream 1 appl topical BID 30 days #30 03/26/23 grams lancets #100 ea 03/26/23 loratadine 10 mg tablet 10 mg PO DAILY 90 days #90 tabs 03/26/23 magnesium 200 mg tablet 200 mg PO DAILY 90 days #90 tabs 03/26/23 mirabegron 50 mg tablet,extended 50 mg PO DAILY 90 days #90 tabs 03/26/23 release 24 hr (Myrbetriq) omeprazole 40 mg capsule,delayed 40 mg PO DAILY@0630 90 days #90 03/26/23 release caps riboflavin (vitamin B2) 400 mg 400 mg PO DAILY #30 tabs 03/26/23 tablet rivaroxaban 20 mg tablet (Xarelto) 20 mg PO DAILY@1700 90 days #90 03/26/23 tabs ropinirole 0.25 mg tablet 0.5 mg (2 x 0.25 mg) PO BEDTIME 90 03/26/23 days #180 tabs rosuvastatin 40 mg tablet (Crestor) 40 mg PO BEDTIME 90 days #90 tabs 03/26/23 sennosides 8.6 mg tablet (senna) 17.2 mg (2 x 8.6 mg) PO BEDTIME 03/26/23 PRN Constipation 90 days #90 tabs thiamine HCl (vitamin B1) 100 mg 100 mg PO DAILY 90 days #90 tabs 03/26/23 tablet venlafaxine 75 mg capsule,extended 75 mg PO DAILY #30 caps 04/10/23 release 24 hr cranberry extract 425 mg capsule 425 mg PO BID #60 caps 05/30/23 dulaglutide 3 mg/0.5 mL 3 mg (0.5 mL) subcut QWEEK 30 days 06/01/23 subcutaneous pen injector #2.5 mL (Trulicity) nystatin 100,000 unit/gram topical 1 appl topical DAILY PRN rash 2 06/01/23 cream weeks #15 grams docusate sodium 100 mg capsule 100 mg PO BID PRN constipation 90 06/02/23 (DOK) days #180 caps lidocaine 4 % topical patch 1 patch topical DAILY PRN pain 30 06/02/23 (Aspercreme (lidocaine)) days #15 ea nystatin 100,000 unit/gram topical 1 appl topical BID #60 grams 06/08/23 powder estradiol 0.01% (0.1 mg/gram) 1 appl vaginal MOWEFR@0900 30 days 07/01/23 vaginal cream #42.5 grams clonazepam 0.5 mg tablet 0.5 mg PO BID #60 tabs 07/03/23 furosemide 40 mg tablet 40 mg PO DAILY 30 days #30 tabs 07/03/23 oxycodone 5 mg tablet 5 mg PO Q6H PRN pain 30 days #90 07/14/23 tabs Allergies Allergy/AdvReac Type Severity Reaction Status Date / Time morphine [Morphine] Allergy Severe ITCHING, Verified 06/09/23 14:54 hives cefdinir Allergy Intermediate hives Verified 06/09/23 14:54 sulfamethoxazole Allergy Intermediate RASH Verified 06/09/23 14:54 trimethoprim Allergy Intermediate RASH Verified 06/09/23 14:54 duloxetine AdvReac Severe altered Verified 06/09/23 14:54 behavior Review of Systems Review of Systems: All other systems are reviewed and are negative Constitutional: Reports as per HPI and Reports no additional constitutional complaints Eyes: Reports as per HPI and Reports no additional eye complaints Reports system reviewed and no additional complaints, except as documented Cardiovascular: Reports as per HPI and Reports no additional cardiovascular complaints Respiratory: Reports as per HPI and Reports no additional respiratory complaints Gastrointestinal: Reports as per HPI and Reports no additional gastrointestinal complaints Genitourinary: Reports no additional female genitourinary complaints Musculoskeletal: Reports no additional musculoskeletal complaints Skin/Breast: Reports system reviewed and no additional complaints, except as docu Psychiatric: Reports no additional psychiatric complaints Endocrine: Reports no additional endocrine complaints Hematologic/Lymphatic: Reports no additional hematologic/lymphatic complaints Allergic/Immunologic: Reports no additional allergic/immunologic complaints Reports system reviewed and no additional complaints, except as documented and Reports Abnormal speech present [facility] Past Medical History Medical History (HFpEF) heart failure with preserved ejection fraction Mild recurrent major depression Hyperlipidemia LDL goal <70 Post-dural puncture headache PONV (postoperative nausea and vomiting) Positive occult stool blood test [place] Headache Anemia Acute upper GI bleed Diabetic polyneuropathy COVID-19 Thiamine deficiency Hand pain CVA (cerebral vascular accident) Head injury Left shoulder pain Left knee pain Left hip pain Left hand pain Dizziness Diabetic neuropathy Diabetes type 2, uncontrolled Type 2 diabetes mellitus with other diabetic kidney complication Proteinuria Type 2 diabetes mellitus with diabetic polyneuropathy Dyslipidemia Obesity due to excess calories Other and unspecified hyperlipidemia Chronic heart failure with preserved ejection fraction (HFpEF) Anemia Thrombocytosis Pulmonary hypertension Ischemic stroke Paroxysmal atrial fibrillation Atherosclerotic cardiovascular disease Hospital discharge follow-up Thrombus Urge urinary incontinence Iron deficiency anemia Pure hypercholesterolemia Essential hypertension Diabetes mellitus Lumbar degenerative disc disease Surgical History S/P laminectomy S/P cardiac pacemaker procedure S/P insertion of spinal cord stimulator H/O colonoscopy History of Mohs micrographic surgery for skin cancer Hx of cervical spine surgery History of partial hysterectomy Hx of cardiac cath Family History Family History Father Rectal cancer Hypertension Arthritis of knee CVD (cardiovascular disease) Mother Hypertension CVD (cardiovascular disease) Myocardial infarction Diabetes Social History Social History Household Members: Spouse Housing: Apartment Are you a primary senior care specialist to a significant other at home: No Do you presently have visiting nurse or other home services: No Alcohol intake: never Comment: na Patient Tobacco Use Status: Former Tobacco user Quit Date: 1993 Tobacco use type: Cigarette Smoked in Last 30 Days: No e-Cigarette/Vaping Use: Never Used Second Hand Smoke Exposure: No Use of substances other than those prescribed or required for medical reasons: No Advance Directives: Yes Advance Directives on File: Yes Advance Directives Date on File: 06/09/23 service: No Current occupational status: retired Current occupation: Lt handed Cognitive needs: Yes (scodor/walker) Hearing needs: No Vision needs: Yes (glasses) Physical Exam ED Vital Signs: Vital Signs - 24 hr 07/15/23 01:31 07/15/23 01:38 Temperature 98.3 F 98.3 F Pulse Rate 79 79 Respiratory Rate 13 Blood Pressure 96/40 L 96/40 L Pulse Oximetry 92 90 L Oxygen Delivery Method Room Air Room Air BMI result Body Mass Index 36.9 Vital signs have been reviewed and appear to be correct. Blood pressure elevated. Heart rate normal. Respiratory rate normal. Temperature normal. Oxygen saturation normal. Appearance: Alert. Oriented X2 not to time. No acute distress. Head: Normal external exam. Normocephalic. Atraumatic. No Lala signs noted. No raccoon eyes noted Eyes: PERRLA. EOMI. Conjunctiva and sclera normal. Eyelids normal. ENT: TM's Normal. Pharynx normal. Uvula midline. Moist mucous membranes. No trismus noted. No drooling noted. No muffled voice noted. Neck: Normal inspection. Neck supple. FROM. No adenopathy. Thyroid Normal. No meningeal signs. No neck mass noted. CVS: Normal heart rate and rhythm. Heart sound normal. No murmurs noted. Pulses normal throughout. Respiratory: No respiratory distress. Painless inspiration. Breath sounds normal. No wheezes/rales/rhonchi noted. Chest nontender. No accessory muscle usage noted or decreased air movement noted. Abdomen: Soft and nontender. Bowel sounds normal in all 4 quadrants. No distention noted. No organomegaly noted. No visible injury noted. Back: No CVA tenderness. Full range of motion noted. Skin: Skin warm and dry. Normal skin color. Normal skin turgor. No rashes/lesions/lacerations noted. Extremities: No lower extremity edema. Extremities exhibit normal range of motion. Extremities nontender. Neuro: Oriented X 2 not to time. Cranial nerve exam: II-XII are grossly intact No motor deficit. No sensory deficit. Reflexes normal. Course Reevaluation(s) Reevaluation #1: A 73-year-old female came in by ambulance for evaluation of change mental status and 5-6 days of continuous nonbloody watery diarrhea. 1. Patient is dropping her base H&H with no obvious source of bleeding rectal guaiac negative will type and screen. 2. Patient was hypoxic with pneumonia on the x-ray/CT do not meet criteria for SIRS/sepsis, start on Zosyn. 3. Dehydration blood pressure on the low side will start with IV hydration. Admit for further evaluation. Time: 05:12 Medications Administered Discontinued Medications Generic Name Dose Route Start Last Admin Trade Name Freq PRN Reason Stop Dose Admin Sodium Chloride 1,000 mls @ 999 mls/hr 07/15/23 02:49 07/15/23 02:55 Ns IV 07/15/23 03:49 999 mls/hr .Q1H1M ONE Administration Pantoprazole Sodium 80 mg 07/15/23 03:16 07/15/23 03:38 Pantoprazole Sodium 40 Mg/10 Ml Vial IVPUSH 07/15/23 03:17 80 mg ONCE ONE Administration Medical Decision Making Differential Diagnosis Differential Diagnoses: The differential diagnosis associated with the presentation includes (GI bleed, severe anemia, sepsis, pneumonia, pneumothorax, pleural effusion, colitis, pancreatitis, diverticulitis, hypotension, dehydration, electrolyte derangement.) Admission/Observation Consideration of admission/observation: Escalation of care including admission/observation considered Consult Healthcare Provider Management of the patient was discussed with: Hospitalist (Dr. Hess) Lab Data MDM Lab Attestation statement: I reviewed the patient's lab results. 07/15/23 02:03 07/15/23 02:03 Labs: Lab Results 07/15/23 07/15/23 07/15/23 Range/Units 02:02 02:03 03:36 WBC 8.6 (4.8-10.8) X10*3/uL RBC 3.48 L D (4.20-5.50) X10*6/uL Hgb 9.8 L D (12.0-16.0) g/dl Hct 30.4 L D (37.0-47.0) % MCV 87.4 (80.0-98.0) fL MCH 28.2 (27.0-33.0) pg MCHC 32.2 (31.0-35.0) g/dl RDW 17.3 H (11.0-16.0) % Plt Count 290 (160-400) X10*3/uL MPV 9.0 L (9.4-12.3) fL Immature Gran % (Auto) 0.5 H (0.0-0.4) % Neut % (Auto) 75.4 H (45-73) % Lymph % (Auto) 11.9 L (20-40) % [place] % (Auto) 9.8 (2-11) % Eos % (Auto) 1.8 (0-4) % Baso % (Auto) 0.6 (0-2) % Lymph # (Auto) 1.0 L (1.2-4.9) X10*3/uL [place] # (Auto) 0.8 (0.1-1.2) X10*3/uL Eos # (Auto) 0.2 (0.0-0.4) X10*3/uL Baso # (Auto) 0.1 (0.0-0.2) X10*3/uL Abs Immat Gran (auto) 0.04 H (0.00-0.03) X10*3/uL Absolute Neuts (auto) 6.5 (2.0-8.3) x10*3/uL Absolute Nucleated RBC 0.000 (0.0-0.012) X10*3/uL Nucleated RBC % (auto) 0.0 (0.0-0.2) /100WBC Sodium 133 L (135-145) mmol/L Potassium 4.2 D (3.3-5.1) mmol/L Chloride 105 (96-108) mmol/L Carbon Dioxide 21 L (22-29) mmol/L Anion Gap 11 L (12-20) BUN 28 H (9-16) mg/dL Creatinine 0.89 (0.5-1.4) mg/dL Estim Creat Clear Calc 59.7 Estimated GFR > 60 Random Glucose 258 H (60-115) mg/dL Calcium 8.9 D (8.4-10.2) mg/dL Total Bilirubin 0.4 (0.0-1.0) mg/dL Direct Bilirubin 0.2 (0.0-0.5) mg/dL AST 16 (5-31) U/L ALT 11 (0-31) U/L Alkaline Phosphatase 65 (39-117) U/L Troponin I High Sens 18.5 H D (<3.5-17.0) ng/L B-Natriuretic Peptide 558 H (<100) pg/mL Total Protein 6.2 L (6.5-8.0) g/dL Albumin 3.1 L (3.5-5.0) g/dL Lipase 20 (8-78) U/L Stool Occult Blood NEGATIVE (NEGATIVE) Blood Type O Positive Antibody Screen NEGATIVE Independent Interpretation I performed an independent interpretation of an: Plain X-Ray (Chest:Patchy left basilar airspace opacity which may reflect atelectasis or consolidation. ) and CT Scan (Abdomen and pelvis:1. Limited evaluation in some regions due to motion artifact. No definite acute findings identified in the abdomen/pelvis. 2. Patchy areas of pulmonary consolidation/ground glass opacity are suspected, which may be infectious/inflammatory. 3. Colonic diverticulosis without conv) Radiology Impression Discussion of test interpretation with radiology: I have reviewed the radiologist's reading. Discharge Plan Discharge Clinical Impression: Diarrhea, Pneumonia, Dehydration, Anemia Patient Disposition: Admitted As Inpatient Prescriptions: No Action (DME) blood-glucose meter [OneTouch Verio Meter] Misc See Rx Instructions .Route Qty: 1 0RF Rx Instructions: As directed acetaminophen 325 mg tablet 650 mg PO Q6H PRN (Reason: Pain (Scale Score 1-3)) Qty: 60 0RF atenolol 50 mg tablet 50 mg PO BID 90 Days Qty: 180 1RF Protocol: Hold for SBP/HR < HOLD for SBP < : 90 HOLD for HR < : 60 (DME) OneTouch Verio test strips Strip See Rx Instructions .Route Qty: 100 5RF Rx Instructions: Use 1 test strip twice a day cyanocobalamin (vitamin B-12) 1,000 mcg tablet 1,000 mcg PO DAILY 90 Days Qty: 90 3RF Jardiance 25 mg tablet 25 mg PO DAILY 90 Days Qty: 90 3RF fenofibrate 160 mg tablet 160 mg PO DAILY 90 Days Qty: 90 3RF fluticasone propionate 50 mcg/actuation spray,suspension 1 spray intranasal DAILY 90 Days Qty: 16 3RF Rx Instructions: administer into each nostril hydroxychloroquine [Plaquenil] 200 mg tablet 200 mg PO BID Qty: 180 3RF (DME) lancets Misc See Rx Instructions .Route Qty: 100 3RF Rx Instructions: USe 1 lancet once a day ketoconazole 2 % cream 1 appl topical BID 30 Days Qty: 30 0RF loratadine 10 mg tablet 10 mg PO DAILY 90 Days Qty: 90 0RF magnesium 200 mg tablet 200 mg PO DAILY 90 Days Qty: 90 5RF Myrbetriq 50 mg tablet extended release 24 hr 50 mg PO DAILY 90 Days Qty: 90 1RF omeprazole 40 mg capsule,delayed release(DR/EC) 40 mg PO DAILY@0630 90 Days Qty: 90 1RF riboflavin (vitamin B2) 400 mg tablet 400 mg PO DAILY Qty: 30 0RF Xarelto 20 mg tablet 20 mg PO DAILY@1700 90 Days Qty: 90 1RF ropinirole 0.25 mg tablet 0.5 mg PO BEDTIME 90 Days Qty: 180 1RF rosuvastatin [Crestor] 40 mg tablet 40 mg PO BEDTIME 90 Days Qty: 90 1RF sennosides [senna] 8.6 mg tablet 17.2 mg PO BEDTIME PRN (Reason: Constipation) 90 Days Qty: 90 1RF thiamine HCl (vitamin B1) 100 mg tablet 100 mg PO DAILY 90 Days Qty: 90 1RF baclofen 10 mg tablet 10 mg PO TID PRN (Reason: muscle spasm) 30 Days Qty: 90 1RF lawuazyjgd-capcarnldxhan-zbbq 50-325-40 mg tablet 1 tab PO Q4H PRN (Reason: Headache) 4 Days Qty: 24 0RF nystatin 100,000 unit/gram cream 1 appl topical DAILY PRN (Reason: rash) 14 Days Qty: 15 1RF Trulicity 3 mg/0.5 mL pen injector 3 mg subcut QWEEK 30 Days Qty: 2.5 6RF docusate sodium [DOK] 100 mg capsule 100 mg PO BID PRN (Reason: constipation) 90 Days Qty: 180 2RF lidocaine [Aspercreme (lidocaine)] 4 % adhesive patch,medicated 1 patch topical DAILY PRN (Reason: pain) 30 Days Qty: 15 2RF estradiol 0.01 % (0.1 mg/gram) cream 1 appl vaginal MOWEFR@0900 30 Days Qty: 42.5 4RF clonazepam 0.5 mg tablet 0.5 mg PO BID Qty: 60 0RF furosemide 40 mg tablet 40 mg PO DAILY 30 Days Qty: 30 1RF oxycodone 5 mg tablet 5 mg PO Q6H PRN (Reason: pain) 30 Days Qty: 90 0RF venlafaxine 75 mg Capsule,Extended Release 24hr 75 mg PO DAILY Qty: 30 0RF losartan 25 mg tablet 25 mg PO DAILY nystatin 100,000 unit/gram powder 1 appl topical BID Qty: 60 2RF betamethasone dipropionate 0.05 % cream 1 appl topical DAILY PRN (Reason: Rash) digoxin 125 mcg (0.125 mg) tablet 125 mcg PO DAILY gabapentin 600 mg tablet 600 mg PO TID multivitamin Tablet 1 tab PO DAILY fesoterodine [Toviaz] 8 mg tablet extended release 24 hr 8 mg PO DAILY ezetimibe [Zetia] 10 mg tablet 10 mg PO DAILY insulin degludec [Tresiba FlexTouch U-100] 100 unit/mL (3 mL) insulin pen 17 unit subcut BEDTIME cholecalciferol (vitamin D3) 50 mcg (2,000 unit) tablet 50 mcg PO DAILY cranberry extract 425 mg capsule 425 mg PO BID Qty: 60 5RF Rx Instructions: administer with meals
[2023-07-15] MEDS: 0.9 % Sodium Chloride 1,000 ML 999 ML IV (02:55)
[2023-07-15] MEDS: Pantoprazole Sodium 40 MG/10 ML VIAL 80 MG IVPUSH (03:38)
[2023-07-15 03:40] LABS: OBS Int Ctl Valid YES; OBS1 NEGATIVE (NEGATIVE)
[2023-07-15] MEDS: Piperacillin Sodium/Tazobactam 3.375 GM in 0.9 % Sodium Chloride 50 ML IV (05:21)
[2023-07-15] MEDS: 0.9 % Sodium Chloride 250 ML 999 ML IV (05:23)
[2023-07-15 05:36] LABS: Lactic Acid 1.1 mmol/L (0.5-2.0)
--- NOTE | 2023-07-15 05:38 | P.HPHOSP_ITS ---
History of Present Illness Date of Service: 07/15/23 Attending physician on admission: Sidra Sanchez Chief Complaint: Diarrhea Missy Keenan is a 73 years old woman with past medical history significant for HFpEF, hyperlipidemia, type 2 diabetes mellitus on Trulicity and Jardiance, history of C diff colitis, paroxysmal atrial fibrillation on Xarelto, mood disorder, permanent pacemaker implantation and pulmonary hypertension was brought to the emergency department due to 5 day history of nonbloody watery diarrhea associated with abdominal discomfort and nausea. She does have irritation around the rectum. Patient denied events of vomiting. She also denies fevers or chills. Some shortness of breath was reported. Patient denied chest pain or cough. According to ED patient's noted patient has been disoriented. In the ED, she was found to have stable vital signs. Initial BP was 96/40. Most recent one is 116/57. There is no tachycardia or fever. Oxygen saturation was found to be 90% on room air and was placed on supplemental oxygen via nasal cannula (1 L/min). Blood workup was remarkable for hemoglobin 9.8 (it was 14.4 one mo. ago). CO2 is 21 and BUN is elevated. Treat attention is normal, 0.89. LFTs are normal. Troponin is 18.5 and BNP 558. Lactic acid is normal. Abdomen pelvis CT scan (test limited due to motion artifact) showed patchy areas opacities of the lungs, suspecting infectious/inflammatory process, colonic diverticulitis -no diverticulitis. ED tx: Zosyn 3.375 g, NS 1250 mL bolus, Protonix 80 mg IV Review of Systems 2 Review of Systems: All 12 systems were reviewed and normal except as noted in HPI. [facility] Medical History (HFpEF) heart failure with preserved ejection fraction Mild recurrent major depression Hyperlipidemia LDL goal <70 Post-dural puncture headache PONV (postoperative nausea and vomiting) Positive occult stool blood test [place] Headache Anemia Acute upper GI bleed Diabetic polyneuropathy COVID-19 Thiamine deficiency Hand pain CVA (cerebral vascular accident) Head injury Left shoulder pain Left knee pain Left hip pain Left hand pain Dizziness Diabetic neuropathy Diabetes type 2, uncontrolled Type 2 diabetes mellitus with other diabetic kidney complication Proteinuria Type 2 diabetes mellitus with diabetic polyneuropathy Dyslipidemia Obesity due to excess calories Other and unspecified hyperlipidemia Chronic heart failure with preserved ejection fraction (HFpEF) Anemia Thrombocytosis Pulmonary hypertension Ischemic stroke Paroxysmal atrial fibrillation Atherosclerotic cardiovascular disease Hospital discharge follow-up Thrombus Urge urinary incontinence Iron deficiency anemia Pure hypercholesterolemia Essential hypertension Diabetes mellitus Lumbar degenerative disc disease Family History Father Rectal cancer Hypertension Arthritis of knee CVD (cardiovascular disease) Mother Hypertension CVD (cardiovascular disease) Myocardial infarction Diabetes Surgical History S/P laminectomy S/P cardiac pacemaker procedure S/P insertion of spinal cord stimulator H/O colonoscopy History of Mohs micrographic surgery for skin cancer Hx of cervical spine surgery History of partial hysterectomy Hx of cardiac cath Social History Household Members: Spouse Housing: Apartment Are you a primary career representative to a significant other at home: No Do you presently have visiting nurse or other home services: No Alcohol intake: never Comment: na Patient Tobacco Use Status: Former Tobacco user Quit Date: 1993 Tobacco use type: Cigarette Smoked in Last 30 Days: No e-Cigarette/Vaping Use: Never Used Second Hand Smoke Exposure: No Use of substances other than those prescribed or required for medical reasons: No Advance Directives: Yes Advance Directives on File: Yes Advance Directives Date on File: 06/09/23 service: No Current occupational status: retired Current occupation: Lt handed Cognitive needs: Yes (scodor/walker) Hearing needs: No Vision needs: Yes (glasses) Meds Allergies Allergy/AdvReac Type Severity Reaction Status Date / Time morphine [Morphine] Allergy Severe ITCHING, Verified 06/09/23 14:54 hives cefdinir Allergy Intermediate hives Verified 06/09/23 14:54 sulfamethoxazole Allergy Intermediate RASH Verified 06/09/23 14:54 trimethoprim Allergy Intermediate RASH Verified 06/09/23 14:54 duloxetine AdvReac Severe altered Verified 06/09/23 14:54 behavior Active Medications: Current Medications Acetaminophen (Acetaminophen 325 Mg Tablet) 650 mg PO Q6H PRN PRN Reason: Pain, Mild (Pain Scale 1-3) Miconazole Nitrate (Miconazole Nitrate 2% Powder 85 Gm Bottle) 1 appl TOPICAL BID SHANON; Protocol Sodium Chloride (0.9 % Sodium Chloride Flush 3 Ml Syringe) 3 ml IVFLUSH QSHIFT [facility] Home Medications Medication Instructions Recorded Confirmed Last Taken Type betamethasone dipropionate 0.05 % 1 appl topical DAILY PRN Rash 03/26/23 06/10/23 Unknown History topical cream digoxin 125 mcg (0.125 mg) tablet 125 mcg PO DAILY 03/26/23 04/26/23 1 Day Ago History ~04/25/23 ezetimibe 10 mg tablet (Zetia) 10 mg PO DAILY 03/26/23 06/10/23 1 Day Ago History ~04/25/23 fesoterodine 8 mg tablet,extended 8 mg PO DAILY 03/26/23 06/10/23 1 Day Ago History release 24 hr (Toviaz) ~04/25/23 gabapentin 600 mg tablet 600 mg PO TID 03/26/23 06/10/23 1 Day Ago History ~04/25/23 insulin degludec 100 unit/mL (3 17 unit subcut BEDTIME 03/26/23 06/10/23 1 Day Ago History mL) subcutaneous pen (Tresiba ~04/25/23 FlexTouch U-100 insulin) multivitamin 1 tab PO DAILY 03/26/23 06/10/23 1 Day Ago History ~04/25/23 cholecalciferol (vitamin D3) 50 50 mcg PO DAILY 04/23/23 06/10/23 1 Day Ago History mcg (2,000 unit) tablet ~04/25/23 losartan 25 mg tablet 25 mg PO DAILY 04/26/23 06/10/23 1 Day Ago History ~04/25/23 Physical Exam 2 Vital Signs and Narrative: Vital Signs: Last Vital Signs Temp 97.6 F 07/15/23 05:27 Pulse 70 07/15/23 05:27 Resp 24 H 07/15/23 05:27 BP 116/57 L 07/15/23 05:27 Pulse Ox 93 07/15/23 05:27 O2 Del Method Nasal Cannula 07/15/23 05:27 O2 Flow Rate 1 07/15/23 05:27 BMI result Body Mass Index 36.9 Constitutional - Awake and Alert, No apparent distress. Somnolent. Answering questions appropriately. Cooperative HEENT - Pupils equally round. Normal sclerae. Dry oral mucosa. Heart - RRR. No murmurs. Lungs - Normal lung expansion, Normal respiratory effort, No respiratory distress, CTA bilaterally Abdomen - ND; increased BS; Generalized discomfort. No rebound or guarding= Extremities - no calf tenderness bilaterally, no swelling Musculoskeletal - Normal inspection, normal ROM Skin - Warm/Dry Neurological - Alert & oriented x3. No focal weakness grossly noted. Somnolent. Normal speech Psychological - Depressed affect Results Labs 07/15/23 02:03 07/15/23 02:03 Labs: Laboratory Results - last 24 hr 07/15/23 07/15/23 07/15/23 02:02 02:03 03:36 MCV 87.4 MCH 28.2 MCHC 32.2 RDW 17.3 H Plt Count 290 MPV 9.0 L Immature Gran % (Auto) 0.5 H Neut % (Auto) 75.4 H Lymph % (Auto) 11.9 L [place] % (Auto) 9.8 Eos % (Auto) 1.8 Baso % (Auto) 0.6 Lymph # (Auto) 1.0 L [place] # (Auto) 0.8 Eos # (Auto) 0.2 Baso # (Auto) 0.1 Abs Immat Gran (auto) 0.04 H Absolute Neuts (auto) 6.5 Absolute Nucleated RBC 0.000 Nucleated RBC % (auto) 0.0 Anion Gap 11 L Estim Creat Clear Calc 59.7 Estimated GFR > 60 Random Glucose 258 H Lactic Acid Calcium 8.9 D Total Bilirubin 0.4 Direct Bilirubin 0.2 AST 16 ALT 11 Alkaline Phosphatase 65 Troponin I High Sens 18.5 H D B-Natriuretic Peptide 558 H Total Protein 6.2 L Albumin 3.1 L Lipase 20 Stool Occult Blood NEGATIVE Blood Type O Positive Antibody Screen NEGATIVE 07/15/23 05:10 MCV MCH MCHC RDW Plt Count MPV Immature Gran % (Auto) Neut % (Auto) Lymph % (Auto) [place] % (Auto) Eos % (Auto) Baso % (Auto) Lymph # (Auto) [place] # (Auto) Eos # (Auto) Baso # (Auto) Abs Immat Gran (auto) Absolute Neuts (auto) Absolute Nucleated RBC Nucleated RBC % (auto) Anion Gap Estim Creat Clear Calc Estimated GFR Random Glucose Lactic Acid 1.1 Calcium Total Bilirubin Direct Bilirubin AST ALT Alkaline Phosphatase Troponin I High Sens B-Natriuretic Peptide Total Protein Albumin Lipase Stool Occult Blood Blood Type Antibody Screen Imaging Radiologist's Impressions: Impressions Chest X-Ray 07/15/23 02:10 IMPRESSION: Patchy left basilar airspace opacity which may reflect atelectasis or consolidation. Abdomen/Pelvis CT 07/15/23 03:05 IMPRESSION: 1. Limited evaluation in some regions due to motion artifact. No definite acute findings identified in the abdomen/pelvis. 2. Patchy areas of pulmonary consolidation/ground glass opacity are suspected, which may be infectious/inflammatory. 3. Colonic diverticulosis without convincing diverticulitis. 4. Coronary artery calcifications. Correlation with cardiac risk factors is recommended. Assessment and Plan (1) Essential hypertension: Status: Acute (2) Dyslipidemia: Status: Acute (3) Diabetes mellitus: Qualifiers: Diabetes mellitus type: type 2 Diabetes mellitus senior living insulin use: with termite technician use Diabetes mellitus complication status: with hyperglycemia Qualified Code(s): E11.65 - Type 2 diabetes mellitus with hyperglycemia; Z79.4 - custodial (current) use of insulin Status: Acute Plan Missy Keenan is a 73 years old woman admitted with: * Diarrhea associated with generalized abdominal discomfort. Abdominal pelvis CT scan showed no gross evidence of colitis (however, this study was limited due to artifact). History of C diff colitis. Admit to hospitalist service. Check C diff and stool cultures for other pathogens. Gentle IV hydration. Will avoid antibiotics for now. Check CRP. * Worsening anemia, concern for GI bleeding. Xarelto on hold. Recheck H and H now. Check INR. To transfuse PRBC as needed. Start therapy with Protonix 40 mg IV twice daily. Will obtain GI consult. * Type 2 diabetes mellitus. Hold Trulicity and Jardiance. * ? Pneumonia/consolidation vs inflammatory process. Patient received Zosyn in ED. Start tx with Doxycycline. * Hyperlipidemia. Continue meds when able. * Essential hypertension. Hold atenolol, losartan and furosemide (BP has been soft). * Paroxysmal atrial fibrillation. lunchroom monitor showing paced rhythm/normal rate. Telemetry Continue digoxin IV. Check digoxin level first. Xarelto on hold due to possible GI bleeding. * OAB. Continue mirabegron when able. * HFpEF, no obvious signs of decompensation. BNP is elevated. Continue furosemide, Jardiance, losartan and atenolol when able. * Type 2 diabetes mellitus. Blood glucose monitoring every 6 hours while NPO. Insulin sliding scale. * Permanent pacemaker implantation. DVT prophylaxis: SCDs Code status: Full Patient will need hospitalization for at least 2 midnights for diarrhea evaluation and treatment with IV hydration, close monitoring of blood workup and evaluation by subspecialty. Quality Stroke Does the patient have a stroke diagnosis?: No VTE Prior VTE?: No VTE Risk Level:: Medical - moderate - high VTE Device Contraindication: N/A - Device Ordered VTE Drug Contraindication: N/A - Med Ordered
[2023-07-15] MEDS: 0.9 % Sodium Chloride 1,000 ML 75 ML IVCONT ×2 (06:19→14:29)
[2023-07-15] MEDS: Pantoprazole Sodium 40 MG/10 ML VIAL IVPUSH ×2 (06:19→17:07)
[2023-07-15 06:21] LABS: MANUAL DIFF FLAG NO
[2023-07-15 06:32] LABS: Basophils Absolute Auto 0.1 X10*3/uL (0.0-0.2); Basophils Percent Auto 0.6 % (0-2); Eosinophils Absolute Auto 0.2 X10*3/uL (0.0-0.4); Eosinophils Percent Auto 2.1 % (0-4); Hematocrit 32.1 % (37.0-47.0); Imm Gran Abs Auto 0.05 X10*3/uL (0.00-0.03); Imm Gran Pct Auto 0.6 % (0.0-0.4); Lymphocytes Absolute Auto 1.4 X10*3/uL (1.2-4.9); Lymphocytes Percent Auto 16.4 % (20-40); Mean Corpuscular HGB Conc 31.2 g/dl (31.0-35.0); Mean Corpuscular Hemoglobin 27.9 pg (27.0-33.0); Mean Corpuscular Volume 89.4 fL (80.0-98.0); Mean Platelet Volume 9.4 fL (9.4-12.3); Monocytes Absolute Auto 0.8 X10*3/uL (0.1-1.2); Monocytes Percent Auto 9.9 % (2-11); Neutrophils Absolute Auto 5.8 x10*3/uL (2.0-8.3); Neutrophils Percent Auto 70.4 % (45-73); Platelet Count 311 X10*3/uL (160-400); Red Blood Count 3.59 X10*6/uL (4.20-5.50); Red Cell Distribution Width 17.7 % (11.0-16.0); White Blood Count 8.3 X10*3/uL (4.8-10.8)
[2023-07-15 06:44] LABS: Alanine Aminotransferase 10 U/L (0-31); Albumin Level 3.1 g/dL (3.5-5.0); Alkaline Phosphatase 67 U/L (39-117); Anion Gap 9 (12-20); Aspartate Amino Transferase 17 U/L (5-31); Bilirubin Total 0.5 mg/dL (0.0-1.0); Blood Urea Nitrogen 28 mg/dL (9-16); C Reactive Protein 17.22 mg/dL (< or = 0.50); Calcium 8.8 mg/dL (8.4-10.2); Carbon Dioxide 23 mmol/L (22-29); Chloride 107 mmol/L (96-108); Estimated Glomerular Filt Rate > 60; Glucose Random 214 mg/dL (60-115); Potassium 4.2 mmol/L (3.3-5.1); Sodium 135 mmol/L (135-145); Total Protein 6.4 g/dL (6.5-8.0)
[2023-07-15 07:38] LABS: Glucose, Whole Blood 192 mg/dL (60-115)
[2023-07-15 08:02] LABS: Iron 11 mcg/dL (30-160); Percent Iron Saturation 5 % (15-50); Total Iron Binding Capacity 213 mcg/dL (228-428); Unsaturated Iron Binding 202 ug/dL
[2023-07-15 08:22] LABS: Ferritin 283 ng/mL (10-250)
[2023-07-15] MEDS: Doxycycline Hyclate 100 MG in 0.9 % Sodium Chloride 250 ML 166.67 MG IV ×2 (09:18→21:45)
[2023-07-15] MEDS: Digoxin 0.5 MG/2 ML AMPUL 0.125 MG IVPUSH (09:20)
[2023-07-15] MEDS: Acetaminophen 325 MG TABLET 650 MG PO ×2 (09:34→17:58)
[2023-07-15] MEDS: Miconazole Nitrate 2% Powder 85 GM Bottle 1 APPL TOPICAL (09:34)
--- NOTE | 2023-07-15 09:40 | PC.NURSE ---
pt is alert and oriented, skin pwd, respirations even and unlabored, ls diminished on the lower lobes, pt was trialled off oxygen and pt did dip down to 90% on room air, pt put back on 1l via nasal cannual, pt is reporting neck pain at 6/10 and a headache at 8/10, vs stable at this time,
--- NOTE | 2023-07-15 10:29 | HO.PM.IMPN ---
Subjective Subjective Date of Service: 07/15/23 Interval History: cough Physical Exam Vital Signs: Vital Signs: Last Vital Signs Temp 98 F 07/15/23 07:35 Pulse 81 07/15/23 09:21 Resp 20 07/15/23 09:21 BP 130/79 07/15/23 09:21 Pulse Ox 98 07/15/23 09:21 O2 Del Method Room Air 07/15/23 09:21 O2 Flow Rate 1 07/15/23 07:35 BMI result Body Mass Index 36.9 General: AO X 3, no acute distress Resp: diminshed bilateral, no accessory muscles used CVS: S1,S2,RRR GI: soft, non tender, non distended Neuro: motor grossly intact, alert Psych: appropriate affect, appropriate insight Objective Data Active Medications Acetaminophen (Acetaminophen 325 Mg Tablet) 650 mg PO Q6H PRN PRN Reason: Pain, Mild (Pain Scale 1-3) Last Admin: 07/15/23 09:34 Dose: 650 mg Documented By: RAHEL Dextrose (Dextrose 50 % 25 Gm/50 Ml Syringe) 25 gm IVPUSH Q15M PRN; Protocol PRN Reason: per Hypoglycemia Standing Ord. Digoxin (Digoxin 0.5 Mg/2 Ml Ampul) 0.125 mg IVPUSH DAILY [facility] Last Admin: 07/15/23 09:20 Dose: 0.125 mg Documented By: RAHEL Glucose (Glucose Gel 15 Gm Gel..Gram.) 15 gm PO Q15M PRN; Protocol PRN Reason: per Hypoglycemia Standing Ord. Sodium Chloride (Ns) 1,000 mls @ 75 mls/hr IVCONT .[id number] [facility] Last Admin: 07/15/23 06:19 Dose: 75 mls/hr Documented By: ZAN Doxycycline Hyclate 100 mg/ (Sodium Chloride) 250 mls @ 166.67 mls/hr IV Q12H [facility] Last Admin: 07/15/23 09:18 Dose: 166.67 mls/hr Documented By: RAHEL Insulin Human Lispro (Insulin Lispro 100 Unit/Ml 3 Ml Vial) 0 unit SUBCUT Q6H [facility]; Protocol Last Admin: 07/15/23 07:51 Dose: Not Given Documented By: KATHLEEN Non-Admin Reason: NPO Miconazole Nitrate (Miconazole Nitrate 2% Powder 85 Gm Bottle) 1 appl TOPICAL BID [facility]; Protocol Last Admin: 07/15/23 09:34 Dose: 1 appl Documented By: RAHEL Pantoprazole Sodium (Pantoprazole Sodium 40 Mg/10 Ml Vial) 40 mg IVPUSH BID@0630,0680 [facility] Last Admin: 07/15/23 06:19 Dose: 40 mg Documented By: ZAN Sodium Chloride (0.9 % Sodium Chloride Flush 3 Ml Syringe) 3 ml IVFLUSH QSHIFT [facility] Last Admin: 07/15/23 07:51 Dose: Not Given Documented By: KATHLEEN Non-Admin Reason: IV Running Labs 07/15/23 05:26 07/15/23 05:54 Labs: Laboratory Results - last 24 hr 07/15/23 07/15/23 07/15/23 02:02 02:03 03:36 MCV 87.4 MCH 28.2 MCHC 32.2 RDW 17.3 H Plt Count 290 MPV 9.0 L Immature Gran % (Auto) 0.5 H Neut % (Auto) 75.4 H Lymph % (Auto) 11.9 L [place] % (Auto) 9.8 Eos % (Auto) 1.8 Baso % (Auto) 0.6 Lymph # (Auto) 1.0 L [place] # (Auto) 0.8 Eos # (Auto) 0.2 Baso # (Auto) 0.1 Abs Immat Gran (auto) 0.04 H Absolute Neuts (auto) 6.5 Absolute Nucleated RBC 0.000 Nucleated RBC % (auto) 0.0 Anion Gap 11 L Estim Creat Clear Calc 59.7 Estimated GFR > 60 POC Glucose Random Glucose 258 H Lactic Acid Calcium 8.9 D Iron TIBC % Saturation Unsat Iron Binding Ferritin Total Bilirubin 0.4 Direct Bilirubin 0.2 AST 16 ALT 11 Alkaline Phosphatase 65 Troponin I High Sens 18.5 H D C-Reactive Protein B-Natriuretic Peptide 558 H Total Protein 6.2 L Albumin 3.1 L Lipase 20 Stool Occult Blood NEGATIVE Blood Type O Positive Antibody Screen NEGATIVE 07/15/23 07/15/23 07/15/23 05:10 05:26 05:54 MCV 89.4 MCH 27.9 MCHC 31.2 RDW 17.7 H Plt Count 311 MPV 9.4 Immature Gran % (Auto) 0.6 H Neut % (Auto) 70.4 Lymph % (Auto) 16.4 L [place] % (Auto) 9.9 Eos % (Auto) 2.1 Baso % (Auto) 0.6 Lymph # (Auto) 1.4 [place] # (Auto) 0.8 Eos # (Auto) 0.2 Baso # (Auto) 0.1 Abs Immat Gran (auto) 0.05 H Absolute Neuts (auto) 5.8 Absolute Nucleated RBC 0.000 Nucleated RBC % (auto) 0.0 Anion Gap 9 L Estim Creat Clear Calc 59.0 Estimated GFR > 60 POC Glucose Random Glucose 214 H Lactic Acid 1.1 Calcium 8.8 Iron 11 L TIBC 213 L % Saturation 5 L Unsat Iron Binding 202 Ferritin 283 H Total Bilirubin 0.5 Direct Bilirubin AST 17 ALT 10 Alkaline Phosphatase 67 Troponin I High Sens C-Reactive Protein 17.22 H B-Natriuretic Peptide Total Protein 6.4 L Albumin 3.1 L Lipase Stool Occult Blood Blood Type Antibody Screen 07/15/23 07:32 MCV MCH MCHC RDW Plt Count MPV Immature Gran % (Auto) Neut % (Auto) Lymph % (Auto) [place] % (Auto) Eos % (Auto) Baso % (Auto) Lymph # (Auto) [place] # (Auto) Eos # (Auto) Baso # (Auto) Abs Immat Gran (auto) Absolute Neuts (auto) Absolute Nucleated RBC Nucleated RBC % (auto) Anion Gap Estim Creat Clear Calc Estimated GFR POC Glucose 192 H Random Glucose Lactic Acid Calcium Iron TIBC % Saturation Unsat Iron Binding Ferritin Total Bilirubin Direct Bilirubin AST ALT Alkaline Phosphatase Troponin I High Sens C-Reactive Protein B-Natriuretic Peptide Total Protein Albumin Lipase Stool Occult Blood Blood Type Antibody Screen 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 Reports no further stools today, check stool PCR Acute on chronic iron deficiency and inflammatory anemia Likely due to blood loss on Xarelto Holding Xarelto IV PPI Monitor hemoglobin GI eval Diabetes Insulin sliding scale Pneumonia Continue doxycycline Paroxysmal atrial fibrillation Holding Xarelto Rate controlled Hypertension Low normal blood pressures, holding antihypertensives Chronic diastolic CHF Appears euvolemic, holding diuretics for now DVT prophylaxis - mechanical due to suspected GI bleed Full code reason for continued hospitalization: Working out GI bleed Quality Stroke Does the patient have a stroke diagnosis?: No VTE Prior VTE?: No VTE Risk Level:: Medical - moderate - high VTE Device Contraindication: N/A - Device Ordered VTE Drug Contraindication: N/A - Med Ordered
[2023-07-15 11:19] LABS: Hematocrit 35.5 % (37.0-47.0); Hemoglobin 11.1 g/dl (12.0-16.0)
[2023-07-15 11:26] LABS: Prothrombin Time 12.1 SEC (11.1-13.3)
--- NOTE | 2023-07-15 11:34 | PHA.MEDREC ---
Pharmacy Consult ? Medication Reconciliation Pharmacy has completed the medication reconciliation. Spoke to patient at bedside, laura historian. Says she uses an aid named [facility] from [facility], but when contacted pharmacy was told they do not handle medications. PAtient confirmed most of meds on list that matched claim history. Reported no longer taking metformin. She also reports using about 6 units of her insulin only as needed.
[2023-07-15 11:41] LABS: Digoxin 0.5 ng/mL (0.8-2.0)
--- NOTE | 2023-07-15 13:06 | MHC.CM.PN ---
IMM sent to , HCP, Jamal, d/t pt. very lethargic. Pt lives with spouse, she has services in the home from [employer] and meals on wheels, she has a walker, PCP is Marla Otero. CM to follow and assist with DC plan.
--- NOTE | 2023-07-15 13:21 | PM.EVENT ---
Event Note Date of Service: 07/15/23 Event Note: GI consult dictated New iron deficiency with likely multifactorial anemia and diarrhea, despite oral iron supplementation. No active bleeding at this time, stools ob neg. EGD/colonoscopy planned for 07/16 for further evaluation. (Xarelto last dose 07/13) Missy is aware of risks and benefits and agrees to proceed. Time Spent With Patient Time: Total time managing care of this patient today ____ minutes.
--- NOTE | 2023-07-15 13:31 | MHC.SHP ---
Pre-Procedural Eval Section A - 24 Hr Update-Section A only Date of Service: 07/15/23 The patient is an INPATIENT: Yes Changes since office visit: No Cold of Flu in the past 2 weeks, No New Medical Problems, No Changes in Medication and No Patient answered all questions The patient has been examined within 24 hours of the surgical procedure. The History & Physical has been completed within 30 days and I have reviewed it.: Yes Section B - Complete if H&P > 30 days Chief Complaint: Pneumonia Allergies: Allergies Allergy/AdvReac Type Severity Reaction Status Date / Time morphine [Morphine] Allergy Severe ITCHING, Verified 06/09/23 14:54 hives cefdinir Allergy Intermediate hives Verified 06/09/23 14:54 sulfamethoxazole Allergy Intermediate RASH Verified 06/09/23 14:54 trimethoprim Allergy Intermediate RASH Verified 06/09/23 14:54 duloxetine AdvReac Severe altered Verified 06/09/23 14:54 behavior Plan I have reviewed the history and physical and performed a pertinent physical examination on my patient. No changes have occurred unless specified. Time Spent With Patient Time: Total time managing care of this patient today ____ minutes.
[2023-07-15] MEDS: HYDROmorphone HCl 2 MG TABLET 1 MG PO (14:27)
[2023-07-15 15:07] LABS: Glucose, Whole Blood 145 mg/dL (60-115)
[2023-07-15 16:00] LABS: Glucose, Whole Blood 156 mg/dL (60-115)
--- NOTE | 2023-07-15 16:10 | PC.NURSE ---
tigered dr Castro about the go-litly bowel prep is ordered for today at 1300, pt is reporting that dr Raman stated that her colonoscopy is not until 07/16 and the order is for 07/16 as well but the go-lightly order is in for 06/16/23, verbal order to hold the medication for now.
[2023-07-15] MEDS: Insulin Lispro 100 UNIT/ML 3 ML VIAL SUBCUT ×2 (17:06→21:55)
--- NOTE | 2023-07-15 18:28 | PC.NURSE ---
report given to reny temple at overflow
--- NOTE | 2023-07-15 18:48 | PC.NURSE ---
Assumed care of this pt at 1845, pt transferred to hospital bed. Will hand off care to oncoming nurse.
[2023-07-15 20:19] LABS: Glucose, Whole Blood 195 mg/dL (60-115)
[2023-07-15] MEDS: traZODone HCL 100 MG TABLET PO (21:46)
[2023-07-15] MEDS: clonazePAM 0.5 MG TABLET PO (21:46)
[2023-07-15] MEDS: Atorvastatin Calcium 80 MG TABLET PO (21:46)
[2023-07-15] MEDS: Gabapentin 600 MG TABLET PO (21:46)
[2023-07-15] MEDS: atenoloL 50 MG TABLET PO (21:55)
[2023-07-15] MEDS: rOPINIRole HCL 0.5 MG TABLET PO (21:55)
[2023-07-15] MEDS: Hydroxychloroquine Sulfate 200 MG TABLET PO (21:55)
--- NOTE | 2023-07-15 21:56 | PC.NURSE ---
Pharmacy notified meds needed for pt. Waiting on pharmacy for meds. Plan of care ongoing.
[2023-07-15 22:32] LABS: Glucose, Whole Blood 178 mg/dL (60-115)
--- NOTE | 2023-07-15 23:21 | CONS_ITS ---
DATE OF SERVICE: 07/15/2023 REFERRING PHYSICIAN: Sidra Sanchez MD REASON FOR CONSULTATION: Anemia and diarrhea. HISTORY OF PRESENT ILLNESS: Patient is a pleasant 73-year-old woman who was admitted to the hospital after presenting to the emergency room yesterday with complaints of diarrhea and abdominal discomfort as well as weakness and disorientation. She reports about 4 weeks of intermittent episodic diarrhea stools have been black intermittently and she is on iron. She has had no upper abdominal pain and is on omeprazole 40 mg daily because of a history of previous gastritis. She is on Xarelto, but denies use of NSAIDs and does not drink alcohol or smoke. She has had intermittent diarrhea over the past 4 weeks, worse over 5 days prior to admission. She denies any associated fevers, chills, suspect food ingestions or ill contacts. She was evaluated in the emergency department with laboratory studies, which documented a hematocrit of 30, down from 42 in May of this year. This improved to 35 today without any intervention. Stool occult blood testing has been negative. She has a history of gastritis diagnosed at the time of endoscopy in November 2021. Hiatal hernia was also noted at that time. She underwent colonoscopy in March 2021 with removal of multiple tubular adenomas. Diverticulosis was also noted. She has a diagnosis in the past of anemia of chronic disease and has been followed by Dr. Smith with a normocytic/normochromic anemia. However, on this admission, she has been noted to have an iron saturation of 5% despite supplementation with oral iron. PAST MEDICAL HISTORY: 1. Aortic stenosis. 2. Acute on chronic heart failure with preserved ejection fraction. 3. Paroxysmal atrial fibrillation. 4. Pacemaker placement. 5. Osteoarthritis. 6. Overactive bladder. 7. Diabetes mellitus. 8. Hyperlipidemia. 9. C diff colitis. 10. Pulmonary hypertension. 11. Depression. CURRENT MEDICATIONS: Current medication list is reviewed in the chart. ALLERGIES: MULTIPLE MEDICATION ALLERGIES ARE REVIEWED. FAMILY HISTORY: This is reviewed with the patient and is positive for cardiovascular disease. SOCIAL HISTORY: There is no current tobacco, alcohol, or substance abuse. REVIEW OF SYSTEMS: SKIN: No pruritus. HEENT: Negative. CARDIOPULMONARY: She denies shortness of breath or chest pain. GASTROINTESTINAL: As above. GENITOURINARY: Negative. NEUROPSYCHIATRIC: Negative. PHYSICAL EXAMINATION: GENERAL: Shows a pleasant female, lying comfortably in bed. VITAL SIGNS: Reviewed in the electronic medical record and are stable. SKIN: Pale. HEENT: Shows no scleral icterus. NECK: Without lymphadenopathy or thyromegaly. LUNGS: Clear. HEART: Shows a regular rate and rhythm. S1, S2. No murmur. ABDOMEN: Soft without focal masses or tenderness. Bowel sounds are present. No organomegaly is noted. EXTREMITIES: Show edema. LABORATORY DATA AND IMAGING STUDIES: Reviewed. CT scanning of the abdomen pelvis has shown no acute findings in the GI tract. IMPRESSION: Anemia with diarrhea. Her recent diarrheal symptoms could be related to a viral gastroenteritis, although she has had this for some time now and reports diarrheal symptoms for about a month, which is somewhat prolonged. Her anemia is new and she is iron deficient, which is also new despite oral iron supplementation. I would recommend further evaluation with upper endoscopy and colonoscopy to rule out any other GI cause for her iron deficiency. If this is negative, she may need intravenous iron supplementation. I would recommend continuing her proton pump inhibitor. The procedure will be scheduled for 07/16 due to her last dose of Xarelto being yesterday in the afternoon. Thanks for asking me to see her. I will follow her in the hospital with you. MD MARLON Ashley/MIGUEL / [phone]
--- NOTE | 2023-07-16 03:13 | PC.NURSE ---
Pt requested and given ice water.
[2023-07-16 03:27] LABS: Glucose, Whole Blood 177 mg/dL (60-115)
[2023-07-16] MEDS: Acetaminophen 325 MG TABLET 650 MG PO (04:12)
[2023-07-16] MEDS: Insulin Lispro 100 UNIT/ML 3 ML VIAL SUBCUT ×2 (04:12→17:19)
--- NOTE | 2023-07-16 04:15 | PC.NURSE ---
Pt medicated per jul. Pt requested and given meds for pain (headache) Plan of care ongoing.
--- NOTE | 2023-07-16 05:39 | MHC.EDTECH ---
patient requesting water and snacks this auto service writer reminded patient she is on clear liquid diet. Pt. agreeable to this given water. vss
[2023-07-16] MEDS: Pantoprazole Sodium 40 MG/10 ML VIAL IVPUSH ×2 (06:03→16:09)
--- NOTE | 2023-07-16 06:08 | PC.NURSE ---
Pt medicated per jul. Pt requested and given water. Plan of care ongoing.
[2023-07-16 06:49] LABS: Hematocrit 31.6 % (37.0-47.0); Hemoglobin 9.9 g/dl (12.0-16.0); Mean Corpuscular HGB Conc 31.3 g/dl (31.0-35.0); Mean Corpuscular Hemoglobin 27.5 pg (27.0-33.0); Mean Corpuscular Volume 87.8 fL (80.0-98.0); Mean Platelet Volume 9.2 fL (9.4-12.3); Platelet Count 343 X10*3/uL (160-400); Red Cell Distribution Width 17.2 % (11.0-16.0); White Blood Count 8.4 X10*3/uL (4.8-10.8)
[2023-07-16 07:03] LABS: Anion Gap 9 (12-20); Blood Urea Nitrogen 14 mg/dL (9-16); Calcium 9.1 mg/dL (8.4-10.2); Carbon Dioxide 20 mmol/L (22-29); Chloride 110 mmol/L (96-108); Creatinine Clr Calc Pharmacy 78.1; Estimated Glomerular Filt Rate > 60; Glucose Fasting 167 mg/dL (60-99); Potassium 4.2 mmol/L (3.3-5.1); Sodium 135 mmol/L (135-145)
[2023-07-16 07:34] LABS: Glucose, Whole Blood 134 mg/dL (60-115)
[2023-07-16 08:00] VITALS: BP 149/71; PULSE 70; RESP 22; TEMP 36.9; O2SAT 96
--- NOTE | 2023-07-16 09:09 | HO.PM.IMPN ---
Subjective Subjective Date of Service: 07/16/23 Interval History: no further BM, feeling weak Review of Systems Review of Systems: Yes all other systems are reviewed and are negative Physical Exam Vital Signs: Vital Signs: Last Vital Signs Temp 98.5 F 07/16/23 08:00 Pulse 70 07/16/23 08:00 Resp 22 H 07/16/23 08:00 BP 149/71 H 07/16/23 08:00 Pulse Ox 96 07/16/23 08:00 O2 Del Method Nasal Cannula 07/16/23 08:00 O2 Flow Rate 2 07/16/23 08:00 BMI result Body Mass Index 36.9 General: AO X 3, no acute distress, frail appearing Resp: diminished bilateral, no accessory muscles used CVS: S1,S2,RRR GI: soft, non tender, non distended Neuro: motor grossly intact, alert Psych: appropriate affect, appropriate insight Objective Data Active Medications Acetaminophen (Acetaminophen 325 Mg Tablet) 650 mg PO Q6H PRN PRN Reason: Pain, Mild (Pain Scale 1-3) Last Admin: 07/16/23 04:12 Dose: 650 mg Documented By: RAFAEL Atenolol (Atenolol 50 Mg Tablet) 50 mg PO BID [facility]; Protocol Last Admin: 07/15/23 21:55 Dose: 50 mg Documented By: RAFAEL Atorvastatin Calcium (Atorvastatin Calcium 80 Mg Tablet) 80 mg PO BEDTIME [facility] Last Admin: 07/15/23 21:46 Dose: 80 mg Documented By: RAFAEL Clonazepam (Clonazepam 0.5 Mg Tablet) 0.5 mg PO BID [facility] Last Admin: 07/15/23 21:46 Dose: 0.5 mg Documented By: RAFAEL Dextrose (Dextrose 50 % 25 Gm/50 Ml Syringe) 25 gm IVPUSH Q15M PRN; Protocol PRN Reason: per Hypoglycemia Standing Ord. Digoxin (Digoxin 0.5 Mg/2 Ml Ampul) 0.125 mg IVPUSH DAILY [facility] Last Admin: 07/15/23 09:20 Dose: 0.125 mg Documented By: JHONFEZANDRA Empagliflozin (Empagliflozin 25 Mg Tablet) 25 mg PO DAILY [facility] Ferrous Sulfate (Ferrous Sulfate 324 Mg Tablet.) 324 mg PO DAILY [facility] Gabapentin (Gabapentin 600 Mg Tablet) 600 mg PO TID [facility] Last Admin: 07/15/23 21:46 Dose: 600 mg Documented By: RAFAEL Glucose (Glucose Gel 15 Gm Gel..Gram.) 15 gm PO Q15M PRN; Protocol PRN Reason: per Hypoglycemia Standing Ord. Guaifenesin/Dextromethorphan (Guaifenesin Dm 100/10/5 Ml 5 Ml Syrup) 5 ml PO Q4H PRN PRN Reason: Cough Hydromorphone HCl (Hydromorphone Hcl 2 Mg Tablet) 1 mg PO Q6H PRN PRN Reason: moderate pain Last Admin: 07/15/23 14:27 Dose: 1 mg Documented By: BRUNILDA Hydroxychloroquine Sulfate (Hydroxychloroquine Sulfate 200 Mg Tablet) 200 mg PO BID [facility] Last Admin: 07/15/23 21:55 Dose: 200 mg Documented By: RAFAEL Sodium Chloride (Ns) 1,000 mls @ 75 mls/hr IVCONT .[id number] [facility] Last Infusion: 07/16/23 03:56 Dose: Infused Documented By: RAFAEL Doxycycline Hyclate 100 mg/ (Sodium Chloride) 250 mls @ 166.67 mls/hr IV Q12H [facility] Last Infusion: 07/15/23 23:20 Dose: Infused Documented By: RAFAEL Insulin Human Lispro (Insulin Lispro 100 Unit/Ml 3 Ml Vial) 0 unit SUBCUT Q6H [facility]; Protocol Last Admin: 07/16/23 04:12 Dose: 2 unit Documented By: RAFAEL Miconazole Nitrate (Miconazole Nitrate 2% Powder 85 Gm Bottle) 1 appl TOPICAL BID [facility]; Protocol Last Admin: 07/15/23 22:36 Dose: Not Given Documented By: RAFAEL Non-Admin Reason: Med Not Available Pantoprazole Sodium (Pantoprazole Sodium 40 Mg/10 Ml Vial) 40 mg IVPUSH BID@0630,1630 [facility] Last Admin: 07/16/23 06:03 Dose: 40 mg Documented By: RAFAEL Ropinirole HCl (Ropinirole Hcl 0.5 Mg Tablet) 0.5 mg PO BEDTIME [facility] Last Admin: 07/15/23 21:55 Dose: 0.5 mg Documented By: RAFAEL Sodium Chloride (0.9 % Sodium Chloride Flush 3 Ml Syringe) 3 ml IVFLUSH QSHIFT [facility] Last Admin: 07/16/23 00:33 Dose: Not Given Documented By: RAFAEL Non-Admin Reason: IV Running Thiamine HCl (Thiamine Hcl 100 Mg Tablet) 100 mg PO DAILY [facility] Trazodone HCl (Trazodone Hcl 100 Mg Tablet) 100 mg PO BEDTIME [facility] Last Admin: 07/15/23 21:46 Dose: 100 mg Documented By: RAFAEL Labs 07/16/23 06:15 07/16/23 06:15 Labs: Laboratory Results - last 24 hr 07/15/23 07/15/23 07/15/23 11:12 14:53 15:55 MCV MCH MCHC RDW Plt Count MPV Absolute Nucleated RBC Nucleated RBC % (auto) PT 12.1 D INR 1.0 Anion Gap Estim Creat Clear Calc Estimated GFR POC Glucose 145 H 156 H Fasting Glucose Calcium Digoxin 0.5 L 07/15/23 07/15/23 07/16/23 20:16 22:28 03:23 MCV MCH MCHC RDW Plt Count MPV Absolute Nucleated RBC Nucleated RBC % (auto) PT INR Anion Gap Estim Creat Clear Calc Estimated GFR POC Glucose 195 H 178 H 177 H Fasting Glucose Calcium Digoxin 07/16/23 07/16/23 06:15 07:31 MCV 87.8 MCH 27.5 MCHC 31.3 RDW 17.2 H Plt Count 343 MPV 9.2 L Absolute Nucleated RBC 0.000 Nucleated RBC % (auto) 0.0 PT INR Anion Gap 9 L Estim Creat Clear Calc 78.1 Estimated GFR > 60 POC Glucose 134 H Fasting Glucose 167 H Calcium 9.1 Digoxin Microbiology Microbiology Results: Microbiology 07/15/23 05:10 Blood Culture - Preliminary Blood - Venous No growth after 24 hours. 07/15/23 05:10 Blood Culture - Preliminary Blood - Venous No growth after 24 hours. 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 Reports no further stools since admission, check stool PCR when available Acute on chronic iron deficiency and inflammatory anemia Likely due to blood loss on Xarelto Holding Xarelto IV PPI Monitor hemoglobin GI appreciated, prep today, plan for EGD/colonoscopy 07/17/23 Diabetes Insulin sliding scale, jardiance possible Pneumonia Continue doxycycline Paroxysmal atrial fibrillation Holding Xarelto for gi bleed atenolol Hypertension initially low-normal, now increasing, atenolol restarted continue to hold losaran Chronic diastolic CHF presented hypovolemic, given ivf, holding diuretics for now DVT prophylaxis - mechanical due to suspected GI bleed Full code reason for continued hospitalization: egd/colon tomorrow Quality Stroke Does the patient have a stroke diagnosis?: No VTE Prior VTE?: No VTE Risk Level:: Medical - moderate - high VTE Device Contraindication: N/A - Device Ordered VTE Drug Contraindication: N/A - Med Ordered
[2023-07-16] MEDS: clonazePAM 0.5 MG TABLET PO ×2 (09:12→22:13)
[2023-07-16] MEDS: Hydroxychloroquine Sulfate 200 MG TABLET PO ×2 (09:12→22:12)
[2023-07-16] MEDS: atenoloL 50 MG TABLET PO ×2 (09:12→22:12)
[2023-07-16] MEDS: Doxycycline Hyclate 100 MG in 0.9 % Sodium Chloride 250 ML 166.67 MG IV ×2 (09:12→22:12)
[2023-07-16] MEDS: Gabapentin 600 MG TABLET PO ×3 (09:12→22:13)
[2023-07-16] MEDS: Thiamine HCL 100 MG TABLET PO (09:12)
[2023-07-16] MEDS: 0.9 % Sodium Chloride Flush 3 ML SYRINGE IVFLUSH ×2 (09:13→16:09)
[2023-07-16] MEDS: HYDROmorphone HCl 2 MG TABLET 1 MG PO (09:22)
[2023-07-16 11:26] VITALS: BP 158/82; PULSE 70; RESP 22; TEMP 36.3; O2SAT 93
[2023-07-16 12:05] LABS: Glucose, Whole Blood 125 mg/dL (60-115)
--- NOTE | 2023-07-16 12:54 | MHC.CM.PN ---
Per [facility], Patient is active with them (not [facility]); appropriate referrals have been made and referral to [facility] cancelled.
[2023-07-16] MEDS: PEG 3350/Na Sulf,Bicarb,Cl/KCL 4,000 ML SOLN.RECON 4000 ML PO (13:48)
[2023-07-16 15:25] VITALS: PULSE 70; RESP 18; TEMP 36.1
--- NOTE | 2023-07-16 15:33 | P.PNGI_ITS ---
Subjective Subjective Date of Service: 07/16/23 Interval History: no bleeding Critical Care Time (minutes): 0 Physical Exam 2 Vital Signs: Vital Signs: Last Vital Signs Temp 97.3 F 07/16/23 11:26 Pulse 70 07/16/23 11:26 Resp 22 H 07/16/23 11:26 BP 158/82 H 07/16/23 11:26 Pulse Ox 93 07/16/23 11:26 O2 Del Method Nasal Cannula 07/16/23 11:26 O2 Flow Rate 2 07/16/23 11:26 BMI result Body Mass Index 36.9 GI: Other: abdomen is soft without tenderness Objective Data Labs 07/16/23 06:15 07/16/23 06:15 Labs: Laboratory Results - last 24 hr 07/15/23 07/15/23 07/15/23 15:55 20:16 22:28 WBC RBC Hgb Hct MCV MCH MCHC RDW Plt Count MPV Absolute Nucleated RBC Nucleated RBC % (auto) Sodium Potassium Chloride Carbon Dioxide Anion Gap BUN Creatinine Estim Creat Clear Calc Estimated GFR POC Glucose 156 H 195 H 178 H Fasting Glucose Calcium 07/16/23 07/16/23 07/16/23 03:23 06:15 07:31 WBC 8.4 RBC 3.60 L Hgb 9.9 L Hct 31.6 L MCV 87.8 MCH 27.5 MCHC 31.3 RDW 17.2 H Plt Count 343 MPV 9.2 L Absolute Nucleated RBC 0.000 Nucleated RBC % (auto) 0.0 Sodium 135 Potassium 4.2 Chloride 110 H Carbon Dioxide 20 L Anion Gap 9 L BUN 14 Creatinine 0.68 Estim Creat Clear Calc 78.1 Estimated GFR > 60 POC Glucose 177 H 134 H Fasting Glucose 167 H Calcium 9.1 07/16/23 11:33 WBC RBC Hgb Hct MCV MCH MCHC RDW Plt Count MPV Absolute Nucleated RBC Nucleated RBC % (auto) Sodium Potassium Chloride Carbon Dioxide Anion Gap BUN Creatinine Estim Creat Clear Calc Estimated GFR POC Glucose 125 H Fasting Glucose Calcium Microbiology Microbiology Results: Microbiology 07/15/23 05:10 Blood - Venous Blood Culture - Preliminary No growth after 24 hours. 07/15/23 05:10 Blood - Venous Blood Culture - Preliminary No growth after 24 hours. Procedures Date of Service Date of Service: 07/16/23 Progress Note: A&P Assessment and plan (1) Anemia: Status: Acute Assessment and Plan: no bleeding continue bowel prep egd/colon tomorrow. Time Spent With Patient Time: Total time managing care of this patient today ____ minutes. Quality Stroke Does the patient have a stroke diagnosis?: No VTE Prior VTE?: No VTE Risk Level:: Medical - moderate - high VTE Device Contraindication: N/A - Device Ordered VTE Drug Contraindication: N/A - Med Ordered
[2023-07-16 15:34] LABS: Glucose, Whole Blood 199 mg/dL (60-115)
[2023-07-16 15:38] VITALS: BP 148/80; O2SAT 92
[2023-07-16] MEDS: guaiFENesin DM 100/10/5 ML 5 ML SYRUP PO (19:12)
[2023-07-16 19:38] VITALS: BP 150/80; PULSE 70; RESP 18; TEMP 36.7; O2SAT 97
[2023-07-16 20:09] LABS: Glucose, Whole Blood 146 mg/dL (60-115)
[2023-07-16] MEDS: rOPINIRole HCL 0.5 MG TABLET PO (22:12)
[2023-07-16] MEDS: traZODone HCL 100 MG TABLET PO (22:13)
[2023-07-16] MEDS: Atorvastatin Calcium 80 MG TABLET PO (22:13)
[2023-07-16 23:53] VITALS: BP 140/81; PULSE 70; RESP 18; TEMP 36.4; O2SAT 93
[2023-07-17] VITALS (9 sets, daily range): BP systolic 102–190; BP diastolic 65–87; PULSE 68–71; RESP 18–70; TEMP 36.1–36.7; O2SAT 90–98
[2023-07-17 00:08] LABS: Glucose, Whole Blood 152 mg/dL (60-115)
[2023-07-17] MEDS: 0.9 % Sodium Chloride Flush 3 ML SYRINGE IVFLUSH ×3 (00:45→16:18)
[2023-07-17 03:45] LABS: Glucose, Whole Blood 160 mg/dL (60-115)
[2023-07-17] MEDS: Insulin Lispro 100 UNIT/ML 3 ML VIAL SUBCUT ×3 (03:46→21:08)
[2023-07-17] MEDS: Pantoprazole Sodium 40 MG/10 ML VIAL IVPUSH (05:35)
[2023-07-17 06:11] LABS: Glucose, Whole Blood 143 mg/dL (60-115)
[2023-07-17 06:27] LABS: Anion Gap 13 (12-20); Blood Urea Nitrogen 12 mg/dL (9-16); Calcium 9.2 mg/dL (8.4-10.2); Carbon Dioxide 22 mmol/L (22-29); Chloride 105 mmol/L (96-108); Creatinine Clr Calc Pharmacy 81.8; Estimated Glomerular Filt Rate > 60; Glucose Fasting 149 mg/dL (60-99); Potassium 3.7 mmol/L (3.3-5.1); Sodium 136 mmol/L (135-145)
[2023-07-17 06:36] LABS: Hematocrit 32.2 % (37.0-47.0); Hemoglobin 10.5 g/dl (12.0-16.0); Mean Corpuscular HGB Conc 32.6 g/dl (31.0-35.0); Mean Corpuscular Hemoglobin 28.1 pg (27.0-33.0); Mean Corpuscular Volume 86.1 fL (80.0-98.0); Mean Platelet Volume 9.3 fL (9.4-12.3); Platelet Count 394 X10*3/uL (160-400); Red Blood Count 3.74 X10*6/uL (4.20-5.50); Red Cell Distribution Width 16.7 % (11.0-16.0); White Blood Count 8.2 X10*3/uL (4.8-10.8)
--- NOTE | 2023-07-17 07:20 | P.CONAN_ITS ---
HPI - Anesthesia Eval Consult details Narrative: Anemia PMFSH Active Problems Active Problems: All Active Problems (Updated 07/15/23 @ 05:18 by Chiquis Hodges MD) Anemia (Acute) Dehydration (Acute) Pneumonia (Acute) Diarrhea (Acute) Right knee pain (Acute) Hyponatremia (Acute) MDD (major depressive disorder), recurrent episode, moderate (Acute) Clostridium difficile infection (Acute) Essential hypertension (Acute) Mitral annular calcification (Acute) Non-rheumatic aortic stenosis (Acute) Preoperative cardiovascular examination (Acute) Acute on chronic heart failure with preserved ejection fraction (Acute) Paroxysmal atrial fibrillation (Acute) Chronic heart failure with preserved ejection fraction (HFpEF) (Acute) Tinea unguium (Acute) Atrial flutter (Acute) S/P cardiac pacemaker procedure (Acute) Pain and swelling of right lower extremity (Acute) Physical deconditioning (Acute) Knee pain (Acute) Neck pain (Acute) Osteoarthritis of right knee (Acute) Knee osteomyelits, right (Acute) Hospital discharge follow-up (Acute) Urge incontinence of urine (Acute) OAB (overactive bladder) (Acute) Spondylosis of cervical joint without myelopathy (Acute) Fracture, cervical vertebra (Acute) Overactive bladder (Acute) Stress incontinence (Acute) Spondylosis of cervical spine with radiculopathy (Acute) Bilateral lumbar radiculopathy (Acute) Degenerative disc disease (Acute) Spinal stenosis (Acute) Spondylosis of lumbosacral spine with radiculopathy (Acute) Avulsion fracture of lateral malleolus of right fibula (Acute) Osteoarthritis of right knee (Acute) Neck pain (Acute) Headache (Acute) Bronchitis (Acute) Screening for breast cancer (Acute) Post-menopausal (Acute) Adult general medical exam (Acute) Hospital discharge follow-up (Acute) Acute upper GI bleed (Acute) Hand pain (Acute) Head injury (Acute) Left shoulder pain (Acute) Left knee pain (Acute) Left hip pain (Acute) Left hand pain (Acute) Dizziness (Acute) Diabetic neuropathy (Acute) Proteinuria (Acute) Type 2 diabetes mellitus with diabetic polyneuropathy (Acute) Dyslipidemia (Acute) Obesity due to excess calories (Acute) Ischemic stroke (Acute) Hospital discharge follow-up (Acute) Urge urinary incontinence (Acute) Iron deficiency anemia (Acute) Pure hypercholesterolemia (Acute) Diabetes mellitus (Acute) Lumbar degenerative disc disease (Acute) Past Medical History Medical History (HFpEF) heart failure with preserved ejection fraction Mild recurrent major depression Hyperlipidemia LDL goal <70 Post-dural puncture headache PONV (postoperative nausea and vomiting) Positive occult stool blood test [place] Headache Anemia Acute upper GI bleed Diabetic polyneuropathy COVID-19 Thiamine deficiency Hand pain CVA (cerebral vascular accident) Head injury Left shoulder pain Left knee pain Left hip pain Left hand pain Dizziness Diabetic neuropathy Diabetes type 2, uncontrolled Type 2 diabetes mellitus with other diabetic kidney complication Proteinuria Type 2 diabetes mellitus with diabetic polyneuropathy Dyslipidemia Obesity due to excess calories Other and unspecified hyperlipidemia Chronic heart failure with preserved ejection fraction (HFpEF) Anemia Thrombocytosis Pulmonary hypertension Ischemic stroke Paroxysmal atrial fibrillation Atherosclerotic cardiovascular disease Hospital discharge follow-up Thrombus Urge urinary incontinence Iron deficiency anemia Pure hypercholesterolemia Essential hypertension Diabetes mellitus Lumbar degenerative disc disease Family History Family History Father Rectal cancer Hypertension Arthritis of knee CVD (cardiovascular disease) Mother Hypertension CVD (cardiovascular disease) Myocardial infarction Diabetes Family history of problems with anesthesia: No Surgical History Surgical History S/P laminectomy S/P cardiac pacemaker procedure S/P insertion of spinal cord stimulator H/O colonoscopy History of Mohs micrographic surgery for skin cancer Hx of cervical spine surgery History of partial hysterectomy Hx of cardiac cath History of Problems with Anesthesia: Yes Social History Social History Household Members: Spouse Housing: Apartment Are you a primary daycare worker to a significant other at home: No Do you presently have visiting nurse or other home services: Yes Alcohol intake: never Comment: na Patient Tobacco Use Status: Former Tobacco user Quit Date: 1993 Tobacco use type: Cigarette e-Cigarette/Vaping Use: Never Used Second Hand Smoke Exposure: No Advance Directives Date on File: 06/09/23 service: No Current occupational status: retired Current occupation: Lt handed Cognitive needs: Yes (scodor/walker) Hearing needs: No Vision needs: Yes (glasses) Meds Allergies Allergy/AdvReac Type Severity Reaction Status Date / Time morphine [Morphine] Allergy Severe ITCHING, Verified 06/09/23 14:54 hives cefdinir Allergy Intermediate hives Verified 06/09/23 14:54 sulfamethoxazole Allergy Intermediate RASH Verified 06/09/23 14:54 trimethoprim Allergy Intermediate RASH Verified 06/09/23 14:54 duloxetine AdvReac Severe altered Verified 06/09/23 14:54 behavior Active Medications: Current Medications Acetaminophen (Acetaminophen 325 Mg Tablet) 650 mg PO Q6H PRN PRN Reason: Pain, Mild (Pain Scale 1-3) Last Admin: 07/16/23 04:12 Dose: 650 mg Atenolol (Atenolol 50 Mg Tablet) 50 mg PO BID [facility]; Protocol Last Admin: 07/16/23 22:12 Dose: 50 mg Atorvastatin Calcium (Atorvastatin Calcium 80 Mg Tablet) 80 mg PO BEDTIME [facility] Last Admin: 07/16/23 22:13 Dose: 80 mg Clonazepam (Clonazepam 0.5 Mg Tablet) 0.5 mg PO BID [facility] Last Admin: 07/16/23 22:13 Dose: 0.5 mg Dextrose (Dextrose 50 % 25 Gm/50 Ml Syringe) 25 gm IVPUSH Q15M PRN; Protocol PRN Reason: per Hypoglycemia Standing Ord. Empagliflozin (Empagliflozin 25 Mg Tablet) 25 mg PO DAILY [facility] Ferrous Sulfate (Ferrous Sulfate 324 Mg Tablet.Dr) 324 mg PO DAILY [facility] Gabapentin (Gabapentin 600 Mg Tablet) 600 mg PO TID [facility] Last Admin: 07/16/23 22:13 Dose: 600 mg Glucose (Glucose Gel 15 Gm Gel..Gram.) 15 gm PO Q15M PRN; Protocol PRN Reason: per Hypoglycemia Standing Ord. Guaifenesin/Dextromethorphan (Guaifenesin Dm 100/10/5 Ml 5 Ml Syrup) 5 ml PO Q4H PRN PRN Reason: Cough Last Admin: 07/16/23 19:12 Dose: 5 ml Hydromorphone HCl (Hydromorphone Hcl 2 Mg Tablet) 1 mg PO Q6H PRN PRN Reason: moderate pain Last Admin: 07/16/23 09:22 Dose: 1 mg Hydroxychloroquine Sulfate (Hydroxychloroquine Sulfate 200 Mg Tablet) 200 mg PO BID [facility] Last Admin: 07/16/23 22:12 Dose: 200 mg Doxycycline Hyclate 100 mg/ (Sodium Chloride) 250 mls @ 166.67 mls/hr IV Q12H [facility] Last Infusion: 07/17/23 00:25 Dose: Infused Insulin Human Lispro (Insulin Lispro 100 Unit/Ml 3 Ml Vial) 0 unit SUBCUT Q6H [facility]; Protocol Last Admin: 07/17/23 03:46 Dose: 2 unit Miconazole Nitrate (Miconazole Nitrate 2% Powder 85 Gm Bottle) 1 appl TOPICAL BID [facility]; Protocol Last Admin: 07/16/23 22:14 Dose: Not Given Pantoprazole Sodium (Pantoprazole Sodium 40 Mg/10 Ml Vial) 40 mg IVPUSH BID@0630,1630 [facility] Last Admin: 07/17/23 05:35 Dose: 40 mg Ropinirole HCl (Ropinirole Hcl 0.5 Mg Tablet) 0.5 mg PO BEDTIME [facility] Last Admin: 07/16/23 22:12 Dose: 0.5 mg Sodium Chloride (0.9 % Sodium Chloride Flush 3 Ml Syringe) 3 ml IVFLUSH QSHIFT [facility] Last Admin: 07/17/23 00:45 Dose: 3 ml Thiamine HCl (Thiamine Hcl 100 Mg Tablet) 100 mg PO DAILY [facility] Last Admin: 07/16/23 09:12 Dose: 100 mg Trazodone HCl (Trazodone Hcl 100 Mg Tablet) 100 mg PO BEDTIME [facility] Last Admin: 07/16/23 22:13 Dose: 100 mg Home Medications Medication Instructions Recorded Confirmed Last Taken Type atenolol 50 mg tablet 50 mg PO BID 07/15/23 07/15/23 Unknown History baclofen 10 mg tablet 10 mg PO TID PRN muscle spasm 07/15/23 07/15/23 Unknown History uyeflrrosv-weegubilvincz-wtogycdu 1 tab PO Q4H PRN headache 07/15/23 07/15/23 Unknown History 50 mg-325 mg-40 mg tablet cholecalciferol (vitamin D3) 50 50 mcg PO DAILY 07/15/23 07/15/23 Unknown History mcg (2,000 unit) tablet clonazepam 0.5 mg tablet 0.5 mg PO BID 07/15/23 07/15/23 Unknown History clotrimazole-betamethasone 1 1 appl topical DAILY PRN Itching 07/15/23 07/15/23 Unknown History %-0.05 % topical cream cyanocobalamin (vitamin B-12) 1,000 mcg PO DAILY 07/15/23 07/15/23 Unknown History 1,000 mcg tablet docusate sodium 100 mg capsule 100 mg PO DAILY constipation 07/15/23 07/15/23 Unknown History dulaglutide 3 mg/0.5 mL 3 mg subcut TH 07/15/23 07/15/23 Unknown History subcutaneous pen injector (Trulicity) empagliflozin 25 mg tablet 25 mg PO DAILY 07/15/23 07/15/23 Unknown History (Jardiance) fenofibrate 160 mg tablet 160 mg PO DAILY 07/15/23 07/15/23 Unknown History ferrous sulfate 325 mg (65 mg 325 mg PO DAILY 07/15/23 07/15/23 Unknown History iron) tablet fluticasone propionate 50 1 spray intranasal DAILY 07/15/23 07/15/23 Unknown Hi story mcg/actuation nasal spray,suspension furosemide 40 mg tablet 40 mg PO DAILY 07/15/23 07/15/23 Unknown History gabapentin 600 mg tablet 600 mg PO TID 07/15/23 07/15/23 Unknown History hydroxychloroquine 200 mg tablet 200 mg PO BID 07/15/23 07/15/23 Unknown History insulin degludec 100 unit/mL (3 6 unit subcut TIDAC PRN 07/15/23 07/15/23 Unknown History mL) subcutaneous pen (Tresiba Hyperglycemia FlexTouch U-100 insulin) lidocaine 5 % topical patch 1 patch topical DAILY PRN Pain 07/15/23 07/15/23 Unknown History loratadine 10 mg tablet 10 mg PO DAILY 07/15/23 07/15/23 Unknown History losartan 25 mg tablet 25 mg PO DAILY 07/15/23 07/15/23 Unknown History magnesium 200 mg tablet 200 mg PO DAILY 07/15/23 07/15/23 Unknown History meloxicam 15 mg tablet 15 mg PO DAILY PRN pain 07/15/23 07/15/23 Unknown History mirabegron 50 mg tablet,extended 50 mg PO DAILY 07/15/23 07/15/23 Unknown History release 24 hr (Myrbetriq) multivitamin 1 tab PO DAILY 07/15/23 07/15/23 Unknown History nystatin 100,000 unit/gram topical 1 appl topical BID 07/15/23 07/15/23 Unknown History powder omeprazole 40 mg capsule,delayed 40 mg PO BID@0630,1630 07/15/23 07/15/23 Unknown History release oxycodone 5 mg tablet 5 mg PO TID PRN Pain 07/15/23 07/15/23 Unknown History rivaroxaban 20 mg tablet (Xarelto) 20 mg PO DAILY@1700 07/15/23 07/15/23 Unknown History ropinirole 0.25 mg tablet 0.5 mg PO BEDTIME 07/15/23 07/15/23 Unknown History rosuvastatin 40 mg tablet 40 mg PO BEDTIME 07/15/23 07/15/23 Unknown History thiamine HCl (vitamin B1) 100 mg 100 mg PO DAILY 07/15/23 07/15/23 Unknown History tablet trazodone 100 mg tablet 100 mg PO BEDTIME 07/15/23 07/15/23 Unknown History Exam Height,Weight and Vital Signs: Height 5 ft 3 in Weight 94.6 kg Last Vital Signs Temp 97.6 F 07/17/23 06:38 Pulse 68 07/17/23 06:38 Resp 22 H 07/17/23 06:38 BP 102/80 07/17/23 06:38 Pulse Ox 96 07/17/23 06:38 O2 Del Method Nasal Cannula 07/17/23 06:38 O2 Flow Rate 3 07/17/23 06:38 Pertinent Lab Results Pertinent Lab Results: Laboratory Tests 07/15/23 07/15/23 07/15/23 02:02 02:03 03:36 WBC 8.6 RBC 3.48 L D Hgb 9.8 L D Hct 30.4 L D MCV 87.4 MCH 28.2 MCHC 32.2 RDW 17.3 H Plt Count 290 MPV 9.0 L Immature Gran % (Auto) 0.5 H Neut % (Auto) 75.4 H Lymph % (Auto) 11.9 L [place] % (Auto) 9.8 Eos % (Auto) 1.8 Baso % (Auto) 0.6 Lymph # (Auto) 1.0 L [place] # (Auto) 0.8 Eos # (Auto) 0.2 Baso # (Auto) 0.1 Abs Immat Gran (auto) 0.04 H Absolute Neuts (auto) 6.5 Absolute Nucleated RBC 0.000 Nucleated RBC % (auto) 0.0 PT INR Sodium 133 L Potassium 4.2 D Chloride 105 Carbon Dioxide 21 L Anion Gap 11 L BUN 28 H Creatinine 0.89 Estim Creat Clear Calc 59.7 Estimated GFR > 60 POC Glucose Random Glucose 258 H Fasting Glucose Lactic Acid Calcium 8.9 D Magnesium Iron TIBC % Saturation Unsat Iron Binding Ferritin Total Bilirubin 0.4 Direct Bilirubin 0.2 AST 16 ALT 11 Alkaline Phosphatase 65 Troponin I High Sens 18.5 H D C-Reactive Protein B-Natriuretic Peptide 558 H Total Protein 6.2 L Albumin 3.1 L Lipase 20 Stool Occult Blood NEGATIVE Digoxin Blood Type O Positive Antibody Screen NEGATIVE 07/15/23 07/15/23 07/15/23 05:10 05:26 05:54 WBC 8.3 RBC 3.59 L Hgb 10.0 L Hct 32.1 L MCV 89.4 MCH 27.9 MCHC 31.2 RDW 17.7 H Plt Count 311 MPV 9.4 Immature Gran % (Auto) 0.6 H Neut % (Auto) 70.4 Lymph % (Auto) 16.4 L [place] % (Auto) 9.9 Eos % (Auto) 2.1 Baso % (Auto) 0.6 Lymph # (Auto) 1.4 [place] # (Auto) 0.8 Eos # (Auto) 0.2 Baso # (Auto) 0.1 Abs Immat Gran (auto) 0.05 H Absolute Neuts (auto) 5.8 Absolute Nucleated RBC 0.000 Nucleated RBC % (auto) 0.0 PT INR Sodium 135 Potassium 4.2 Chloride 107 Carbon Dioxide 23 Anion Gap 9 L BUN 28 H Creatinine 0.90 Estim Creat Clear Calc 59.0 Estimated GFR > 60 POC Glucose Random Glucose 214 H Fasting Glucose Lactic Acid 1.1 Calcium 8.8 Magnesium Iron 11 L TIBC 213 L % Saturation 5 L Unsat Iron Binding 202 Ferritin 283 H Total Bilirubin 0.5 Direct Bilirubin AST 17 ALT 10 Alkaline Phosphatase 67 Troponin I High Sens C-Reactive Protein 17.22 H B-Natriuretic Peptide Total Protein 6.4 L Albumin 3.1 L Lipase Stool Occult Blood Digoxin Blood Type Antibody Screen 07/15/23 07/15/23 07/15/23 07:32 11:12 14:53 WBC RBC Hgb 11.1 L Hct 35.5 L MCV MCH MCHC RDW Plt Count MPV Immature Gran % (Auto) Neut % (Auto) Lymph % (Auto) [place] % (Auto) Eos % (Auto) Baso % (Auto) Lymph # (Auto) [place] # (Auto) Eos # (Auto) Baso # (Auto) Abs Immat Gran (auto) Absolute Neuts (auto) Absolute Nucleated RBC Nucleated RBC % (auto) PT 12.1 D INR 1.0 Sodium Potassium Chloride Carbon Dioxide Anion Gap BUN Creatinine Estim Creat Clear Calc Estimated GFR POC Glucose 192 H 145 H Random Glucose Fasting Glucose Lactic Acid Calcium Magnesium Iron TIBC % Saturation Unsat Iron Binding Ferritin Total Bilirubin Direct Bilirubin AST ALT Alkaline Phosphatase Troponin I High Sens C-Reactive Protein B-Natriuretic Peptide Total Protein Albumin Lipase Stool Occult Blood Digoxin 0.5 L Blood Type Antibody Screen 07/15/23 07/15/23 07/15/23 15:55 20:16 22:28 WBC RBC Hgb Hct MCV MCH MCHC RDW Plt Count MPV Immature Gran % (Auto) Neut % (Auto) Lymph % (Auto) [place] % (Auto) Eos % (Auto) Baso % (Auto) Lymph # (Auto) [place] # (Auto) Eos # (Auto) Baso # (Auto) Abs Immat Gran (auto) Absolute Neuts (auto) Absolute Nucleated RBC Nucleated RBC % (auto) PT INR Sodium Potassium Chloride Carbon Dioxide Anion Gap BUN Creatinine Estim Creat Clear Calc Estimated GFR POC Glucose 156 H 195 H 178 H Random Glucose Fasting Glucose Lactic Acid Calcium Magnesium Iron TIBC % Saturation Unsat Iron Binding Ferritin Total Bilirubin Direct Bilirubin AST ALT Alkaline Phosphatase Troponin I High Sens C-Reactive Protein B-Natriuretic Peptide Total Protein Albumin Lipase Stool Occult Blood Digoxin Blood Type Antibody Screen 07/16/23 07/16/23 07/16/23 03:23 06:15 07:31 WBC 8.4 RBC 3.60 L Hgb 9.9 L Hct 31.6 L MCV 87.8 MCH 27.5 MCHC 31.3 RDW 17.2 H Plt Count 343 MPV 9.2 L Immature Gran % (Auto) Neut % (Auto) Lymph % (Auto) [place] % (Auto) Eos % (Auto) Baso % (Auto) Lymph # (Auto) [place] # (Auto) Eos # (Auto) Baso # (Auto) Abs Immat Gran (auto) Absolute Neuts (auto) Absolute Nucleated RBC 0.000 Nucleated RBC % (auto) 0.0 PT INR Sodium 135 Potassium 4.2 Chloride 110 H Carbon Dioxide 20 L Anion Gap 9 L BUN 14 Creatinine 0.68 Estim Creat Clear Calc 78.1 Estimated GFR > 60 POC Glucose 177 H 134 H Random Glucose Fasting Glucose 167 H Lactic Acid Calcium 9.1 Magnesium Iron TIBC % Saturation Unsat Iron Binding Ferritin Total Bilirubin Direct Bilirubin AST ALT Alkaline Phosphatase Troponin I High Sens C-Reactive Protein B-Natriuretic Peptide Total Protein Albumin Lipase Stool Occult Blood Digoxin Blood Type Antibody Screen 07/16/23 07/16/23 07/16/23 11:33 15:23 19:47 WBC RBC Hgb Hct MCV MCH MCHC RDW Plt Count MPV Immature Gran % (Auto) Neut % (Auto) Lymph % (Auto) [place] % (Auto) Eos % (Auto) Baso % (Auto) Lymph # (Auto) [place] # (Auto) Eos # (Auto) Baso # (Auto) Abs Immat Gran (auto) Absolute Neuts (auto) Absolute Nucleated RBC Nucleated RBC % (auto) PT INR Sodium Potassium Chloride Carbon Dioxide Anion Gap BUN Creatinine Estim Creat Clear Calc Estimated GFR POC Glucose 125 H 199 H 146 H Random Glucose Fasting Glucose Lactic Acid Calcium Magnesium Iron TIBC % Saturation Unsat Iron Binding Ferritin Total Bilirubin Direct Bilirubin AST ALT Alkaline Phosphatase Troponin I High Sens C-Reactive Protein B-Natriuretic Peptide Total Protein Albumin Lipase Stool Occult Blood Digoxin Blood Type Antibody Screen 07/16/23 07/17/23 07/17/23 23:57 03:40 05:47 WBC 8.2 RBC 3.74 L Hgb 10.5 L Hct 32.2 L MCV 86.1 MCH 28.1 MCHC 32.6 RDW 16.7 H Plt Count 394 MPV 9.3 L Immature Gran % (Auto) Neut % (Auto) Lymph % (Auto) [place] % (Auto) Eos % (Auto) Baso % (Auto) Lymph # (Auto) [place] # (Auto) Eos # (Auto) Baso # (Auto) Abs Immat Gran (auto) Absolute Neuts (auto) Absolute Nucleated RBC 0.000 Nucleated RBC % (auto) 0.0 PT INR Sodium 136 Potassium 3.7 Chloride 105 Carbon Dioxide 22 Anion Gap 13 BUN 12 Creatinine 0.65 Estim Creat Clear Calc 81.8 Estimated GFR > 60 POC Glucose 152 H 160 H Random Glucose Fasting Glucose 149 H Lactic Acid Calcium 9.2 Magnesium 2.0 Iron TIBC % Saturation Unsat Iron Binding Ferritin Total Bilirubin Direct Bilirubin AST ALT Alkaline Phosphatase Troponin I High Sens C-Reactive Protein B-Natriuretic Peptide Total Protein Albumin Lipase Stool Occult Blood Digoxin Blood Type Antibody Screen 07/17/23 06:08 WBC RBC Hgb Hct MCV MCH MCHC RDW Plt Count MPV Immature Gran % (Auto) Neut % (Auto) Lymph % (Auto) [place] % (Auto) Eos % (Auto) Baso % (Auto) Lymph # (Auto) [place] # (Auto) Eos # (Auto) Baso # (Auto) Abs Immat Gran (auto) Absolute Neuts (auto) Absolute Nucleated RBC Nucleated RBC % (auto) PT INR Sodium Potassium Chloride Carbon Dioxide Anion Gap BUN Creatinine Estim Creat Clear Calc Estimated GFR POC Glucose 143 H Random Glucose Fasting Glucose Lactic Acid Calcium Magnesium Iron TIBC % Saturation Unsat Iron Binding Ferritin Total Bilirubin Direct Bilirubin AST ALT Alkaline Phosphatase Troponin I High Sens C-Reactive Protein B-Natriuretic Peptide Total Protein Albumin Lipase Stool Occult Blood Digoxin Blood Type Antibody Screen Airway Mallampati Class: II TM Dist: >3cm Neck ROM: Full Loose/Missing/Broken Teeth: No Heart: irreg irreg [id number] Lungs: cta b/l Assessment and Plan Assessment Anesthesia Assessment: Anesthesia Plan Discussed and Chart Reviewed Final Anesthetic Review Family History of Problems with Anesthesia: No History of Problems with Anesthesia: Yes NPO: Yes ASA Class: III Final Preanesthetic Review: No Changes in Pt Med Stat, Meds/Allgs Chart Reviewed, Consent Obtained/Reviewed and Anes Risks/Benef Reviewed Patient Risk: Intermediate Procedure Risk: Intermediate Assessment/Block/Sedation in SS: Assess/Block/Sedation-SS Anesthetic Plan Anesthetic Plan: MAC: Disposition: Standard PACU
--- NOTE | 2023-07-17 08:34 | P.BOP_ITS ---
Brief Operative Note Date of Service: 07/17/23 Pre-op diagnosis: shan Post-op diagnosis: same Procedure: egd colon Surgeon: Oscar Raman MD Anesthesia: MAC Was an Maternal Fetal Physician used for this Procedure?: No Estimated blood loss (mL): 2 Condition: stable Disposition: floor
--- NOTE | 2023-07-17 08:36 | PM.EVENT ---
Event Note Date of Service: 07/17/23 Event Note: EGD/Colonoscopy EGD is normal, duodenal biopsies obtained colonoscopy showed 2 polyps and diverticulosis, no bleeding. Rec: advance diet, ok to restart xarelto 07/17. ? iv iron. Time Spent With Patient Time: Total time managing care of this patient today ____ minutes.
[2023-07-17] MEDS: Gabapentin 600 MG TABLET PO ×3 (09:14→21:09)
[2023-07-17] MEDS: atenoloL 50 MG TABLET PO ×2 (09:14→21:09)
[2023-07-17] MEDS: Thiamine HCL 100 MG TABLET PO (09:14)
[2023-07-17] MEDS: Hydroxychloroquine Sulfate 200 MG TABLET PO ×2 (09:14→21:09)
[2023-07-17] MEDS: clonazePAM 0.5 MG TABLET PO ×2 (09:14→21:09)
[2023-07-17 11:37] LABS: Glucose, Whole Blood 203 mg/dL (60-115)
[2023-07-17] MEDS: guaiFENesin DM 100/10/5 ML 5 ML SYRUP 10 ML PO ×3 (11:57→21:09)
--- NOTE | 2023-07-17 14:00 | HO.PM.IMPN ---
Subjective Subjective Date of Service: 07/17/23 Interval History: Complaining of persistent cough of 1 month duration mostly dry otherwise clear phlegm, denies fever, no chills, denies headache, or dizziness, has been taking iron supplements but noted to have persistent low iron saturation, noted to have transient drop in oxygenation to low 80s therefore placed back on oxygen currently stable oxygenation on 2 L. Review of Systems All other system reviewed and negative Physical Exam Vital Signs: Vital Signs: Last Vital Signs Temp 97.3 F 07/17/23 12:25 Pulse 70 07/17/23 12:25 Resp 20 07/17/23 12:25 BP 119/65 07/17/23 12:25 Pulse Ox 96 07/17/23 12:25 O2 Del Method Nasal Cannula 07/17/23 12:25 O2 Flow Rate 2 07/17/23 12:25 BMI result Body Mass Index 36.9 Const: Other: General: Alert oriented x3, no acute distress Neck no JVD Resp: diminished right base, no crackles no rhonchi , no accessory muscles used CVS: S1,S2,RRR GI: soft, non tender, non distended Neuro: motor grossly intact, alert Extremities no edema Psych: appropriate affect,and insight Objective Data Active Medications Acetaminophen (Acetaminophen 325 Mg Tablet) 650 mg PO Q6H PRN PRN Reason: Pain, Mild (Pain Scale 1-3) Last Admin: 07/16/23 04:12 Dose: 650 mg Documented By: RAFAEL Acetaminophen (Acetaminophen 325 Mg Tablet) 650 mg PO ONCE PRN PRN Reason: Pain, Mild (Pain Scale 1-3) Atenolol (Atenolol 50 Mg Tablet) 50 mg PO BID [facility]; Protocol Last Admin: 07/17/23 09:14 Dose: 50 mg Documented By: KENDRICK Atorvastatin Calcium (Atorvastatin Calcium 80 Mg Tablet) 80 mg PO BEDTIME [facility] Last Admin: 07/16/23 22:13 Dose: 80 mg Documented By: JOI Clonazepam (Clonazepam 0.5 Mg Tablet) 0.5 mg PO BID [facility] Last Admin: 07/17/23 09:14 Dose: 0.5 mg Documented By: KENDRICK Dextrose (Dextrose 50 % 25 Gm/50 Ml Syringe) 25 gm IVPUSH Q15M PRN; Protocol PRN Reason: per Hypoglycemia Standing Ord. Empagliflozin (Empagliflozin 25 Mg Tablet) 25 mg PO DAILY [facility] Ferrous Sulfate (Ferrous Sulfate 324 Mg Tablet.) 324 mg PO DAILY [facility] Gabapentin (Gabapentin 600 Mg Tablet) 600 mg PO TID [facility] Last Admin: 07/17/23 09:14 Dose: 600 mg Documented By: KENDRICK Glucose (Glucose Gel 15 Gm Gel..Gram.) 15 gm PO Q15M PRN; Protocol PRN Reason: per Hypoglycemia Standing Ord. Guaifenesin/Dextromethorphan (Guaifenesin Dm 100/10/5 Ml 5 Ml Syrup) 5 ml PO Q4H PRN PRN Reason: Cough Last Admin: 07/16/23 19:12 Dose: 5 ml Documented By: JOI Guaifenesin/Dextromethorphan (Guaifenesin Dm 100/10/5 Ml 5 Ml Syrup) 10 ml PO TID [facility] Last Admin: 07/17/23 11:57 Dose: 10 ml Documented By: KENDRICK Hydroxychloroquine Sulfate (Hydroxychloroquine Sulfate 200 Mg Tablet) 200 mg PO BID [facility] Last Admin: 07/17/23 09:14 Dose: 200 mg Documented By: KENDRICK Insulin Human Lispro (Insulin Lispro 100 Unit/Ml 3 Ml Vial) 0 unit SUBCUT Q6H [facility]; Protocol Last Admin: 07/17/23 09:22 Dose: Not Given Documented By: KENDRICK Non-Admin Reason: Off Unit: Surgery Miconazole Nitrate (Miconazole Nitrate 2% Powder 85 Gm Bottle) 1 appl TOPICAL BID [facility]; Protocol Last Admin: 07/17/23 10:22 Dose: Not Given Documented By: KENDRICK Non-Admin Reason: Off Unit: Surgery Omeprazole (Omeprazole 40 Mg Capsule.) 40 mg PO DAILY@0630 [facility] Ondansetron HCl (Ondansetron Hcl 4 Mg/2 Ml Vial) 4 mg IVPUSH ONCE PRN PRN Reason: Nausea and Vomiting Ropinirole HCl (Ropinirole Hcl 0.5 Mg Tablet) 0.5 mg PO BEDTIME [facility] Last Admin: 07/16/23 22:12 Dose: 0.5 mg Documented By: JOI Sodium Chloride (0.9 % Sodium Chloride Flush 3 Ml Syringe) 3 ml IVFLUSH QSHIFT [facility] Last Admin: 07/17/23 09:16 Dose: 3 ml Documented By: KENDRICK Thiamine HCl (Thiamine Hcl 100 Mg Tablet) 100 mg PO DAILY [facility] Last Admin: 07/17/23 09:14 Dose: 100 mg Documented By: KENDRICK Trazodone HCl (Trazodone Hcl 100 Mg Tablet) 100 mg PO BEDTIME [facility] Last Admin: 07/16/23 22:13 Dose: 100 mg Documented By: JOI Labs 07/17/23 05:47 07/17/23 05:47 Labs: Laboratory Results - last 24 hr 07/16/23 07/16/23 07/16/23 15:23 19:47 23:57 MCV MCH MCHC RDW Plt Count MPV Absolute Nucleated RBC Nucleated RBC % (auto) Anion Gap Estim Creat Clear Calc Estimated GFR POC Glucose 199 H 146 H 152 H Fasting Glucose Calcium Magnesium 07/17/23 07/17/23 07/17/23 03:40 05:47 06:08 MCV 86.1 MCH 28.1 MCHC 32.6 RDW 16.7 H Plt Count 394 MPV 9.3 L Absolute Nucleated RBC 0.000 Nucleated RBC % (auto) 0.0 Anion Gap 13 Estim Creat Clear Calc 81.8 Estimated GFR > 60 POC Glucose 160 H 143 H Fasting Glucose 149 H Calcium 9.2 Magnesium 2.0 07/17/23 11:28 MCV MCH MCHC RDW Plt Count MPV Absolute Nucleated RBC Nucleated RBC % (auto) Anion Gap Estim Creat Clear Calc Estimated GFR POC Glucose 203 H Fasting Glucose Calcium Magnesium Microbiology Microbiology Results: Microbiology 07/15/23 05:10 Blood Culture - Preliminary Blood - Venous No growth after 48 hours. 07/15/23 05:10 Blood Culture - Preliminary Blood - Venous No growth after 48 hours. Assessment and Plan (1) Anemia: Status: Acute (2) Diarrhea: Status: Acute Plan 73F PMH cdif, hfpef, dm, pafib on xarelto, mood disorder, pulm htn, s/p pacer, presented with diarrhea and sob and cough Diarrhea with history of C diff colitis Reports no further stools since admission, will DC stool PCR Acute on chronic iron deficiency and inflammatory anemia Likely due to blood loss on Xarelto Underwent Upper endoscopy today that is normal, duodenal biopsies were obtained, colonoscopy showed 2 polyps and diverticulosis with no bleeding GI recommend to start Xarelto 07/17 Change to by mouth PPI Advanced diet Since patient on oral iron with persistent iron deficiency will give IV iron infusion today, follow CBC Diabetes Elevated blood sugars will adjust Insulin sliding scale, jardiance possible Pneumonia No fevers, normal WBC, complaining of cough of 1 month duration, no shortness a breath will DC doxycycline, encourage incentive spirometry and ambulation. Paroxysmal atrial fibrillation Holding Xarelto for gi bleed Continue atenolol, resume Xarelto at a.m. Hypertension Stable blood pressure continue atenolol 50 b.i.d. Chronic diastolic CHF stable diuretics on hold Class 2 obesity recommend weight reduction DVT prophylaxis - mechanical due to suspected GI bleed Full code reason for continued hospitalization: Iron infusion/trial of diet/safe disposition Quality Stroke Does the patient have a stroke diagnosis?: No VTE Prior VTE?: No VTE Risk Level:: Medical - moderate - high VTE Device Contraindication: N/A - Device Ordered VTE Drug Contraindication: N/A - Med Ordered
[2023-07-17] MEDS: Iron Sucrose Complex 200 MG in 0.9 % Sodium Chloride 100 ML 440 MG IV (15:17)
[2023-07-17 15:25] LABS: Glucose, Whole Blood 231 mg/dL (60-115)
--- NOTE | 2023-07-17 15:44 | OP_ITS ---
DATE OF SERVICE: 07/17/2023 SURGEON: Oscar Raman MD INDICATIONS: Iron-deficiency anemia. PREOPERATIVE DIAGNOSIS: POSTOPERATIVE DIAGNOSIS: PROCEDURE PERFORMED: 1. Upper endoscopy with biopsy. 2. Colonoscopy to the cecum with biopsy and snare polypectomy. ESTIMATED BLOOD LOSS: COMPLICATIONS: ANESTHESIA: Monitored anesthesia care. ASSISTANTS: SPECIMENS: DESCRIPTION OF PROCEDURE: A history and physical performed. The risks and benefits of the procedure were explained to the patient. Informed consent was obtained. The patient was placed in the left lateral decubitus position. The Olympus videogastroscope was introduced into the esophagus, stomach, and duodenum. Examination was performed. The scope was removed. She was repositioned for colonoscopy. A digital rectal exam was performed and was found to be normal. The Olympus pediatric videocolonoscope was introduced into the rectum and advanced to the cecum with the assistance of abdominal wall pressure due to looping in the colon. The cecum was identified by transillumination, palpation, identification of ileocecal valve. Examination was performed. The scope was removed. She tolerated the procedure well and was returned to recovery room in stable condition. FINDINGS: Upper endoscopy of esophagus: The esophagus was normal. Stomach: Stomach showed no evidence of masses, ulcers, or polyps. Duodenum: The bulb and 2nd portion were normal. Biopsies were obtained from the 2nd portion of the duodenum. Colonoscopy: The terminal ileum was not examined. The visualized colonic mucosa was normal. There was some stool mainly in the right colon and proximal transverse colon. This was washed and suctioned as best possible. This limited sensitivity examination for detection of small polyps. In the cecum, there was less than 5 mm polyp, which was removed with biopsy forceps. A 2nd polyp measuring approximately 8 mm was removed with a snare at the hepatic flexure. This was recovered via suction. There was moderate diverticulosis. No bleeding was identified. Retroflexed examination was normal. IMPRESSION: 1. Normal upper endoscopy. 2. Colon polyps. RECOMMENDATIONS: Follow up with the biopsy results. MD MARLON Ashley/MIGUEL / [id number]
[2023-07-17 20:11] LABS: Glucose, Whole Blood 165 mg/dL (60-115)
[2023-07-17] MEDS: Atorvastatin Calcium 80 MG TABLET PO (21:09)
[2023-07-17] MEDS: traZODone HCL 100 MG TABLET PO (21:09)
[2023-07-17] MEDS: rOPINIRole HCL 0.5 MG TABLET PO (21:09)
[2023-07-17] MEDS: Miconazole Nitrate 2% Powder 85 GM Bottle 1 APPL TOPICAL (22:30)
[2023-07-18] MEDS: 0.9 % Sodium Chloride Flush 3 ML SYRINGE IVFLUSH ×2 (01:57→08:47)
[2023-07-18 03:44] VITALS: BP 122/68; PULSE 82; RESP 18; TEMP 36.5; O2SAT 97
[2023-07-18 03:49] LABS: Glucose, Whole Blood 178 mg/dL (60-115)
[2023-07-18] MEDS: Insulin Lispro 100 UNIT/ML 3 ML VIAL SUBCUT (03:49)
[2023-07-18] MEDS: Omeprazole 40 MG CAPSULE.DR PO (04:46)
[2023-07-18] MEDS: guaiFENesin DM 100/10/5 ML 5 ML SYRUP PO (04:46)
[2023-07-18 07:47] VITALS: BP 161/75; PULSE 70; RESP 20; TEMP 36.2; O2SAT 97
[2023-07-18] MEDS: Thiamine HCL 100 MG TABLET PO (08:42)
[2023-07-18] MEDS: Doxycycline Monohydrate 100 MG CAPSULE PO (08:42)
[2023-07-18] MEDS: guaiFENesin DM 100/10/5 ML 5 ML SYRUP 10 ML PO (08:42)
[2023-07-18] MEDS: clonazePAM 0.5 MG TABLET PO (08:42)
[2023-07-18] MEDS: Ferrous Sulfate 324 MG TABLET.DR PO (08:43)
[2023-07-18] MEDS: atenoloL 50 MG TABLET PO (08:43)
[2023-07-18] MEDS: Empagliflozin 25 MG TABLET PO (08:43)
[2023-07-18] MEDS: Hydroxychloroquine Sulfate 200 MG TABLET PO (08:43)
[2023-07-18] MEDS: Gabapentin 600 MG TABLET PO (08:43)
[2023-07-18 09:24] LABS: Glucose, Whole Blood 148 mg/dL (60-115)
[2023-07-18 10:44] VITALS: PULSE 78; PULSE 80; PULSE 84; O2SAT 94; O2SAT 96
--- NOTE | 2023-07-18 11:07 | HO.POSTANES ---
Post Anesthesia Evaluation Post Anesthesia Evaluation Date of Service: 07/18/23 Vital Signs: Vital Signs Temp Pulse Resp BP Pulse Ox O2 Del Method O2 Flow Rate 07/18/23 07:47 97.1 F 70 20 161/75 H 97 Nasal Cannula 1 07/18/23 03:44 97.7 F 82 18 122/68 97 Nasal Cannula 1 07/17/23 23:57 98.0 F 70 70 H 186/86 H 95 Nasal Cannula 1 Anesthesia: Monitored Mental Status: Awake Pain Control: Satisfactory Nausea/Vomiting: None Hydration: Adequate Anesthesia-Related Issues: No Anes. Related Issues
[2023-07-18 11:59] VITALS: BP 147/67; PULSE 71; RESP 20; TEMP 36.9; O2SAT 93
[2023-07-18 11:59] LABS: Glucose, Whole Blood 182 mg/dL (60-115)
--- NOTE | 2023-07-18 12:59 | MHC.CM.PN ---
Per RT Home O2 Eval, Patient does not qualify for home O2.
--- NOTE | 2023-07-18 13:20 | MHC.CM.PN ---
Patient has been medically cleared for dc to home today, with services. Patient is active with [facility], who has been notified of today's dc. CM met with Patient at bedside and addressed IMM with her, providing Patient with the original and a copy has been placed on the chart. Patient's will provide transportation to home.
--- NOTE | 2023-07-18 13:32 | P.DS_ITS ---
DS: Providers Provider Date of Service: 07/18/23 Date of admission: 07/15/23 05:22 Primary care physician: Marla Bray MD Consults: 07/15/23 06:33 Consult to Gastroenterology Routine Consulting Provider: Otto Navarro Reason for consultation: On xarelto, worsening anemia. Has provider been notified: No DS: Diagnosis Discharge Diagnosis (1) Anemia: Status: Acute (2) Diarrhea: Status: Acute DS: Summary Hospital Course Hospital Course: History of presenting illness: Date of Service: 07/15/23 Attending physician on admission: Sidra Sanchez Chief Complaint: Diarrhea Missy Keenan is a 73 years old woman with past medical history significant for HFpEF, hyperlipidemia, type 2 diabetes mellitus on Trulicity and Jardiance, hist ory of C diff colitis, paroxysmal atrial fibrillation on Xarelto, mood disorder, permanent pacemaker implantation and pulmonary hypertension was brought to the emergency department due to 5 day history of nonbloody watery diarrhea associated with abdominal discomfort and nausea. She does have irritation around the rectum. Patient denied events of vomiting. She also denies fevers or chills. Some shortness of breath was reported. Patient denied chest pain or cough. According to ED patient's noted patient has been disoriented. In the ED, she was found to have stable vital signs. Initial BP was 96/40. Most recent one is 116/57. There is no tachycardia or fever. Oxygen saturation was found to be 90% on room air and was placed on supplemental oxygen via nasal cannula (1 L/min). Blood workup was remarkable for hemoglobin 9.8 (it was 14.4 one mo. ago). CO2 is 21 and BUN is elevated. Treat attention is normal, 0.89. LFTs are normal. Troponin is 18.5 and BNP 558. Lactic acid is normal. Abdomen pelvis CT scan (test limited due to motion artifact) showed patchy areas opacities of the lungs, suspecting infectious/inflammatory process, colonic diverticulitis -no diverticulitis. ED tx: Zosyn 3.375 g, NS 1250 mL bolus, Protonix 80 mg IV History of presenting illness: 73F PMH cdif, hfpef, dm, pafib on xarelto, mood disorder, pulm htn, s/p pacer, presented with diarrhea and sob and cough in noted to have acute on chronic anemia. Admitted due to Diarrhea with history of C diff colitis, had no further episodes of diarrhea, no intervention required Acute on chronic iron deficiency and inflammatory anemia, no acute blood loss noted, stool guaiac negative,Underwent Upper endoscopy today that is normal, duodenal biopsies were obtained, colonoscopy showed 2 polyps and diverticulosis with no bleeding, GI recommend to resume Xarelto will continue Prilosec patient received 1 dose of IV iron infusion and is recommended to take iron supplement twice daily and follow CBC as outpatient. Diabetes continue home medications Possible Pneumonia initially felt to have pneumonia treated with IV antibiotics, but noted to have no fevers,normal WBC count, therefore doxycycline discontinued. Paroxysmal atrial fibrillation recommend to continue Xarelto and atenolol Hypertension continue home medications Chronic diastolic CHF no acute decompensation noted Class 2 obesity recommend low-calorie diet and exercise. Time Attestation Discharge Coordination Time (in mins): 34 Quality: Safe Use of Opioids Does Pt have an Active Cancer Diagnosis on the Problem List?: No Quality: Stroke Does the patient have a stroke diagnosis?: No Physical Exam Vital Signs: Vital Signs: Last Vital Signs Temp 98.4 F 07/18/23 11:59 Pulse 71 07/18/23 11:59 Resp 20 07/18/23 11:59 BP 147/67 H 07/18/23 11:59 Pulse Ox 93 07/18/23 11:59 O2 Del Method Room Air 07/18/23 11:59 O2 Flow Rate 1 07/18/23 07:47 BMI result Body Mass Index 36.9 Const: Other: General: Alert oriented x3, no acute distress Neck no JVD Resp: diminished right base, no crackles no rhonchi , no accessory muscles used CVS: S1,S2,RRR GI: soft, non tender, non distended Neuro: motor grossly intact, alert Extremities right ankle edema, no redness, left lower extremity no edema. Psych: appropriate affect,and insight DS: Data Data Completed and Pending Completed studies during hospitalization [Text1]: Procedures Insertion of Pacemaker Lead into Right Atrium, Percutaneous Approach (08/23/22) Insertion of Pacemaker Lead into Right Ventricle, Percutaneous Approach (08/23/22) Insertion of Pacemaker, Dual Chamber into Chest Subcutaneous Tissue and Fascia, Open Approach (08/23/22) Pending studies at discharge: Pending at discharge 07/17/23 07:51 Surgical [PTH] Routine Labs on day of discharge: Laboratory Results - last 24 hr 07/17/23 07/17/23 07/18/23 15:22 20:08 03:38 POC Glucose 231 H 165 H 178 H 07/18/23 07/18/23 09:20 11:54 POC Glucose 148 H 182 H Preliminary micro results at discharge 07/15/23 05:10 Blood Culture - Preliminary Blood - Venous No growth after 48 hours. 07/15/23 05:10 Blood Culture - Preliminary Blood - Venous No growth after 48 hours. Discharge Plan Discharge Anticipated Discharge Date/Time: 07/18/23 12:51 Patient Disposition: Home Health Service Discharge Diagnosis: Diarrhea Acute on chronic microcytic anemia Referrals: [facility] [Outside] - 1 Week Marla Henderson MD [Primary Care Provider] - 1 Week Discharge Medications: Continued furosemide 40 mg tablet 40 mg PO DAILY gabapentin 600 mg tablet 600 mg PO TID meloxicam 15 mg tablet 15 mg PO DAILY PRN (Reason: pain) clonazepam 0.5 mg tablet 0.5 mg PO BID cyanocobalamin (vitamin B-12) 1,000 mcg tablet 1,000 mcg PO DAILY thiamine HCl (vitamin B1) 100 mg tablet 100 mg PO DAILY omeprazole 40 mg capsule,delayed release(DR/EC) 40 mg PO BID@0630,1630 trazodone 100 mg tablet 100 mg PO BEDTIME ropinirole 0.25 mg tablet 0.5 mg PO BEDTIME baclofen 10 mg tablet 10 mg PO TID PRN (Reason: muscle spasm) clotrimazole-betamethasone 1-0.05 % cream 1 appl topical DAILY PRN (Reason: Itching) losartan 25 mg tablet 25 mg PO DAILY docusate sodium 100 mg capsule 100 mg PO DAILY nystatin 100,000 unit/gram powder 1 appl topical BID hydroxychloroquine 200 mg tablet 200 mg PO BID fluticasone propionate 50 mcg/actuation spray,suspension 1 spray intranasal DAILY atenolol 50 mg tablet 50 mg PO BID loratadine 10 mg tablet 10 mg PO DAILY oxycodone 5 mg tablet 5 mg PO TID PRN (Reason: Pain) magnesium 200 mg tablet 200 mg PO DAILY rosuvastatin 40 mg tablet 40 mg PO BEDTIME fenofibrate 160 mg tablet 160 mg PO DAILY cholecalciferol (vitamin D3) 50 mcg (2,000 unit) tablet 50 mcg PO DAILY Xarelto 20 mg tablet 20 mg PO DAILY@1700 Myrbetriq 50 mg tablet extended release 24 hr 50 mg PO DAILY Jardiance 25 mg tablet 25 mg PO DAILY Trulicity 3 mg/0.5 mL pen injector 3 mg subcut TH multivitamin Tablet 1 tab PO DAILY exzmdpxusc-pmlslxtsupxhl-jujo 50-325-40 mg tablet 1 tab PO Q4H PRN (Reason: headache) lidocaine 5 % adhesive patch,medicated 1 patch topical DAILY PRN (Reason: Pain) insulin degludec [Tresiba FlexTouch U-100] 100 unit/mL (3 mL) insulin pen 6 unit subcut TIDAC PRN (Reason: Hyperglycemia) Changed ferrous sulfate 325 mg (65 mg iron) tablet 325 mg PO BID Qty: 180 0RF Discharge Orders: Discharge Order (Routine); Ordered 07/18/23 Ordered By: Zully Ayala Diet: Diabetic diet Activity on Discharge: As tolerated Stand Alone Forms: Patient Portal Discharge page Care Plan Goals: Diarrhea resolved Acute on chronic anemia, upper endoscopy normal, duodenal biopsy obtained report pending, colonoscopy showed 2 polyps and diverticulosis no bleeding Continue iron supplements Continue Xarelto Return to check with acute gastrointestinal bleeding, weakness lightheadedness dizziness or shortness a breath. Health Concerns: Diabetes Paroxysmal atrial fibrillation Chronic diastolic heart failure Plan of Treatment: Follow-up with primary care physician, call for appointment Assessment: As above
--- NOTE | 2023-07-18 14:04 | W.MHC.F2F ---
Service Date Service Date: 07/18/23 Encounter Date of encounter: 07/18/23 Reasons for Services Signs and symptoms assessed: Nausea, diarrhea, shortness of breath anemia, diabetes mellitus Reason for long-term: diabetic teaching, medication management and GI/ assessment Reason for physical therapy: home safety and mobility Reason for occupational therapy: home safety and mobility Homebound: Leaving the home is medically contraindicated at this time without the asist of a device and/or another person due th the listed conditions above and below. Reason homebound: weakness related to hospital stay Certification: Based on the above findings, I certify that this patient is confined to the home and needs intermittent long-term care, physical therapy and/or speech therapy, or continues to need occupational therapy. The patient is under my care, and I have initiated the establishment of the plan of care. The patient will be followed by a physician who will periodically review the plan of care. Time Spent With Patient Time: Total time managing care of this patient today ____ minutes.
--- NOTE | 2023-07-18 14:08 | P.PNGI_ITS ---
Subjective Subjective Date of Service: 07/18/23 Interval History: tolerating diet no bleeding some diarrhea today Critical Care Time (minutes): 0 Physical Exam 2 Vital Signs: Vital Signs: Last Vital Signs Temp 98.4 F 07/18/23 11:59 Pulse 71 07/18/23 11:59 Resp 20 07/18/23 11:59 BP 147/67 H 07/18/23 11:59 Pulse Ox 93 07/18/23 11:59 O2 Del Method Room Air 07/18/23 11:59 O2 Flow Rate 1 07/18/23 07:47 BMI result Body Mass Index 36.9 GI: Other: abdomen is soft and nontender Objective Data Labs 07/17/23 05:47 07/17/23 05:47 Labs: Laboratory Results - last 24 hr 07/17/23 07/17/23 07/18/23 15:22 20:08 03:38 POC Glucose 231 H 165 H 178 H 07/18/23 07/18/23 09:20 11:54 POC Glucose 148 H 182 H Microbiology Microbiology Results: Microbiology 07/15/23 05:10 Blood - Venous Blood Culture - Preliminary No growth after 48 hours. 07/15/23 05:10 Blood - Venous Blood Culture - Preliminary No growth after 48 hours. Procedures Date of Service Date of Service: 07/18/23 Progress Note: A&P Assessment and plan (1) Anemia: Start date: 07/18/23 Status: Acute Assessment and Plan: reviewed egd/colon results with patient biopsies pending diarrhea likely related to bowel prep can use imodium prn Time Spent With Patient Time: Total time managing care of this patient today ____ minutes. Quality Stroke Does the patient have a stroke diagnosis?: No VTE Prior VTE?: No VTE Risk Level:: Medical - moderate - high VTE Device Contraindication: N/A - Device Ordered VTE Drug Contraindication: N/A - Med Ordered
== END 2023-07-18 14:48 | disposition home health service (06) | DRG 812 ==
LOC: HO.ED 05:18 → HO.EDOVER 05:33 → HO.IMC 07-16 07:14
PROVIDERS: Internal Medicine; Internal Medicine Gastroenterology; Admitting Provider Internal Medicine; Emergency Provider Emergency Medicine; PCP Internal Medicine; Visit Provider Hospitalist
PROC: 0DB98ZX Excision of Duodenum, Via Natural or Artificial Opening Endoscopic, Diagnostic (ICD-10-PCS; principal; 2023-07-17 07:30)
DX: D50.9 Iron deficiency anemia, unspecified (principal); I50.32 Chronic diastolic (congestive) heart failure; E11.42 Type 2 diabetes mellitus with diabetic polyneuropathy; I48.0 Paroxysmal atrial fibrillation; E11.65 Type 2 diabetes mellitus with hyperglycemia; E66.8 Other obesity; Z68.36 Body mass index [BMI] 36.0-36.9, adult; K57.30 Diverticulosis of large intestine without perforation or abscess without bleeding; K63.5 Polyp of colon; E86.0 Dehydration; Z95.0 Presence of cardiac pacemaker; I11.0 Hypertensive heart disease with heart failure; Z79.01 Long term (current) use of anticoagulants; Z79.4 Long term (current) use of insulin; Z79.899 Other long term (current) drug therapy
CPT/HCPCS: 36415; 71045; 74176; 80048; 80053; 80162; 82248; 82272; 82728; 82947; 83540; 83605; 83690; 83735; 83880; 84484; 85014; 85018; 85025; 85027; 85610; 86140; 86850; 86900; 86901; 87040; 88305; 88313; 93005; 99285; C9113; J1160; J1756; J2405; J2543; J2704; J3010

== ENCOUNTER → 2023-07-15 01:45 | Outpatient (BNV) | payer MEDICARE, SELFPAY | PROVIDERS: Admitting Provider Internal Medicine; Emergency Provider Emergency Medicine; Visit Provider Internal Medicine Cardiovascular Disease | DX: R07.9 Chest pain, unspecified (principal); I10 Essential (primary) hypertension; E78.5 Hyperlipidemia, unspecified | CPT/HCPCS: 93010 ==

== ENCOUNTER → 2023-07-15 05:22 | Outpatient (BNV) | payer MEDICARE, SELFPAY | PROVIDERS: Admitting Provider Internal Medicine; Emergency Provider Emergency Medicine; Visit Provider Internal Medicine | DX: D50.0 Iron deficiency anemia secondary to blood loss (chronic) (principal); R19.7 Diarrhea, unspecified; I48.91 Unspecified atrial fibrillation; I50.32 Chronic diastolic (congestive) heart failure | CPT/HCPCS: 99223; 99233; 99239; 99499; G0180 ==

== ENCOUNTER 2023-07-24 12:42 | Outpatient (AMB) | payer MEDICARE, SELFPAY ==
--- NOTE | 2023-07-24 12:48 | A.OFFPC_ITS ---
Vital Signs 07/24/23 12:59 Height 5 ft 3 in Weight 205 lb BMI 36.3 BP 160/70 H Blood Pressure Location Lt brachial Position Sitting Intake Visit Reasons: HDF C discharged 07/17 for anemia/diarrhea Intake Note: Patient here for HDF from [facility] [place] disch 07/18/23 anemia/diarrhea, c/o constant leg swelling Applications Chemist Required: No Accompanied by: Alley/ daughter Allergies morphine [Morphine] Allergy (Severe, Verified 07/24/23 13:14) ITCHING, hives cefdinir Allergy (Intermediate, Verified 07/24/23 13:14) hives sulfamethoxazole Allergy (Intermediate, Verified 07/24/23 13:14) RASH trimethoprim Allergy (Intermediate, Verified 07/24/23 13:14) RASH duloxetine Adverse Reaction (Severe, Verified 07/24/23 13:14) altered behavior Medication List - Last Reconciled 07/24/23 by Marla Bray MD atenolol 50 mg PO BID baclofen 10 mg PO TID PRN 30 days paookgelhd-trojlpvoctcmx-jqdu 50-325-40 mg 1 tab PO Q4H PRN cholecalciferol (vitamin D3) 50 mcg PO DAILY clonazepam 0.5 mg PO BID clotrimazole-betamethasone 1-0.05 % 1 appl topical DAILY PRN cyanocobalamin (vitamin B-12) 1,000 mcg PO DAILY docusate sodium 100 mg PO DAILY dulaglutide (Trulicity) 3 mg subcut TH empagliflozin (Jardiance) 25 mg PO DAILY fenofibrate 160 mg PO DAILY ferrous sulfate 325 mg PO BID fluticasone propionate 50 mcg/actuation 1 spray intranasal DAILY furosemide 40 mg PO DAILY gabapentin 600 mg PO TID hydroxychloroquine 200 mg PO BID insulin degludec (Tresiba FlexTouch U-100 insulin) 6 units subcut TIDAC PRN lidocaine 5% 1 patch topical DAILY PRN loratadine 10 mg PO DAILY 90 days losartan 25 mg PO DAILY magnesium 200 mg PO DAILY meloxicam 15 mg PO DAILY PRN mirabegron ER (Myrbetriq) 50 mg PO DAILY multivitamin 1 tab PO DAILY nystatin 1 appl topical BID omeprazole 40 mg PO BID@0630,1630 oxycodone 5 mg PO TID PRN rivaroxaban (Xarelto) 20 mg PO DAILY@1700 ropinirole 0.5 mg PO BEDTIME rosuvastatin 40 mg PO BEDTIME thiamine HCl (vitamin B1) 100 mg PO DAILY trazodone 100 mg PO BEDTIME Tobacco use date assessed: 07/24/23 Fall risk assessment: 1 Fall in past year Last assessed Fall Risk: 07/24/23 Dental Screening Dental Screen Date: 07/24/23 Did you have a dental visit in the last 12 months?: No Did you have a dental problem in the last 6 months where you did not have access to dental care?: No Was dental information given to patient?: Patient has dentist HPI HPI Comments History of Present Illness Details This is a 73 year old female with diabetes mellitus type 2 with polyneuropathy, paroxysmal atrial fibrillation, congestive heart failure with preserved ejection fraction, mild recurrent major depression that comes accompanied by daughter for hospital discharge follow up with discharge date 07/18/2023 due to nonbloody watery diarrhea associated with abdominal discomfort and nausea. Also has some shortness of breath. Blood pressure was low. Oxygen saturation was 90% on room air. Was given oxygen. Had a hemoglobin of 9.8 which decrease from last time. Was treated with IV Zosyn and Protonix 80 mg IV. Admitted due to diarrhea with history of C diff colitis. Admitted 07/15/2023. Also had pneumonia. A1c elevated today and Tresiba was increased from 6 units to 10 units once a day. Polyneuropathy has been somewhat stable with gabap entin. On Xarelto for her atrial fibrillation and follows with cardiology. Also has a pacemaker. Last ejection fraction was 60-65% in 2020 and congestive heart failure is follow by cardiology. Has not gain 5 lb in a week. She also has depression that has been stable with medications. Walks with a walker for gait stability. Does have skin irritation around rectum. Diarrhea resolved. Has history of ischemic stroke with no residual deficit. Anemia will be follow. She denies any active bleeding. Had endoscopy and colonoscopy. COUNT INCLUDES THE [facility] Medical History (Updated 07/25/23 @ 12:20 by Marla Bray MD) (HFpEF) heart failure with preserved ejection fraction Mild recurrent major depression Fracture, cervical vertebra Hyperlipidemia LDL goal <70 Post-dural puncture headache PONV (postoperative nausea and vomiting) Positive occult stool blood test [place] Headache Anemia Acute upper GI bleed Diabetic polyneuropathy COVID-19 Thiamine deficiency Hand pain CVA (cerebral vascular accident) Head injury Left shoulder pain Left knee pain Left hip pain Left hand pain Dizziness Diabetic neuropathy Diabetes type 2, uncontrolled Type 2 diabetes mellitus with other diabetic kidney complication Proteinuria Type 2 diabetes mellitus with diabetic polyneuropathy Dyslipidemia Obesity due to excess calories Other and unspecified hyperlipidemia Chronic heart failure with preserved ejection fraction (HFpEF) Anemia Thrombocytosis Pulmonary hypertension Ischemic stroke Paroxysmal atrial fibrillation Atherosclerotic cardiovascular disease Hospital discharge follow-up Thrombus Urge urinary incontinence Iron deficiency anemia Pure hypercholesterolemia Essential hypertension Diabetes mellitus Lumbar degenerative disc disease Surgical History S/P laminectomy S/P cardiac pacemaker procedure S/P insertion of spinal cord stimulator H/O colonoscopy History of Mohs micrographic surgery for skin cancer Hx of cervical spine surgery History of partial hysterectomy Hx of cardiac cath Family History Father Rectal cancer Hypertension Arthritis of knee CVD (cardiovascular disease) Mother Hypertension CVD (cardiovascular disease) Myocardial infarction Diabetes Social History Household Members: Spouse Housing: Apartment Are you a primary care director rn to a significant other at home: No Do you presently have visiting nurse or other home services: Yes Alcohol intake: never Comment: na Patient Tobacco Use Status: Former Tobacco user Quit Date: 1993 Tobacco use type: Cigarette e-Cigarette/Vaping Use: Never Used Second Hand Smoke Exposure: No Advance Directives Date on File: 06/09/23 service: No Current occupational status: retired Current occupation: Lt handed Cognitive needs: Yes (scodor/walker) Hearing needs: No Vision needs: Yes (glasses) Questionnaire PHQ-9 Over the last 2 weeks, how often have you been bothered by any of the following problems? 1. Little interest or pleasure in doing things: several days 2. Feeling down, depressed, or hopeless: nearly every day 3. Trouble falling or staying asleep, or sleeping too much: nearly every day 4. Feeling tired or having little energy: nearly every day 5. Poor appetite or overeating: several days 6. Feeling bad about yourself - or that you are a failure or have let yourself or your family down: several days 7. Trouble concentrating on things, such as reading the newspaper or watching television: several days 8. Moving or speaking so slowly that other people could have noticed. Or the opposite - being so fidgety or restless that you have been moving around a lot more than usual: not at all 9. Thoughts that you would be better off or of hurting yourself in some way: not at all Total score: 13 Depression Screening Interpretation: Positive Depression Screening Follow-up: Existing condition and In treatment Depression Screening Done: Yes 33225 - PHQ-9 Billing: Yes Source: Developed by Drs. Otto Zayas, Rima Frankel, Brenden Zhang and colleagues, with an educational norma from [employer]. Thrive Questionnaire Date Thrive assessed: 07/24/23 I am a: Patient What is your living situation today?: I have a steady place to live Within the past 12 months, did the food you bought not last and you didn't have the money to get more?: Never true Within the past 12 months, did you worry whether your food would run out before you got money to buy more?: Never true Do you have trouble paying for medicines?: No Do you have trouble getting transportation to medical appointments?: No Do you have trouble paying your heating and electricity bill?: No Do you have trouble taking care of your child, family member or friend?: No Do you have trouble with day-to-day activities such as bathing, preparing meals, shopping, managing finances, etc.?: Yes Are you currently unemployed and looking for a job?: No Are you interested in more education?: No Please select the resources that you would like help with: None Currently or been in a relationship where the following occur: no concerns reported THRIVE Score: 0 AUDIT C Alcohol Use Questionnaire (AUDIT-C) 1. How often do you have a drink containing alcohol?: Never Total Score: 0 Score Reviewed/Action Taken: No ALY-7 AMB Questionnaire ALY-7 Date ALY - 7 assessed: 07/24/23 Feeling nervous, anxious, or on edge: 3 = Nearly every day Not being able to stop or control worryin = Several days Worrying too much about different things: 1 = Several days Trouble relaxin = Several days Being so restless that it is hard to sit still: 0 = Not at all Becoming easily annoyed or irritable: 2 = More than half the days Feeling afraid as if something awful might happen: 1 = Several days Total ALY-7 score (0-4 normal; 5-9 mild; 10-14 moderate; 15-21 severe): 9 Source: Developed by Drs. Otto Zayas, Rima Frankel, Brenden Zhang and colleagues, with an educational norma from [employer]. ALY-7 Assessment Billing ALY-7 Assessment Tool: ALY-7 Assessment 39703 Review of Systems Const All systems reviewed & are unremarkable except as noted in HPI and below Eyes Reports no additional complaints, Denies change in vision and Denies other visual disturbances Card Denies chest pain at rest, Denies chest pain with activity, Denies edema, Denies irregular heart rhythm, Denies claudication, Denies dyspnea, Denies dyspnea on exertion, Denies orthopnea, Denies paroxysmal nocturnal dyspnea and Denies slow heart rate Resp Denies cough, Denies dyspnea and Denies dyspnea on exertion GI Denies abdominal pain, Denies change in bowel habits, Denies excessive flatus, Denies nausea and Denies vomiting Denies urinary incontinence, Denies urinary hesitancy and Denies urinary urgency Musc Denies abnormal gait, Denies atrophy, Denies deformity and Denies limited range of motion Skin/Breast Denies bleeding lesions, Denies changing lesions and Denies rash Neuro Denies abnormal gait, Denies behavioral changes and Denies lack of coordination Psych Denies behavioral changes Physical exam (Primary Care) Vital Signs: Last Vital Signs BP 160/70 H 07/24/23 12:59 BMI result Body Mass Index 36.3 Tobacco/Smoking Status: Tobacco use Status Tobacco use date assessed 07/24/23 07/24/23 13:03 Patient Tobacco Use Status Former Tobacco user 07/24/23 12:50 Tobacco use type Cigarette 07/24/23 12:50 e-Cigarette/Vaping Use Never Used 07/24/23 12:50 PHQ-9: PHQ-9 Score PHQ-9: Total score 07/24/23 13:23 Depression Screening Interpretation: Positive Depression Screening Follow-up: Existing condition and In treatment Thrive Assessment: Date of Thrive Assessment Date Thrive assessed 07/24/23 07/24/23 13:03 Currently or been in a relationship where the following occur: no concerns reported Const Limitations: ambulation with walker Eyes General: appearance normal, both eyes and all related structures Eyelids: Yes eyelids normal Conjunctivae: conjunctivae normal Neck Neck: Yes normal visual inspection and Yes supple Resp Effort & Inspection: normal respiratory effort Auscultation: clear to auscultation bilaterally Cardio Jugular venous distension: no JVD Rate: regular rate Rhythm: regular rhythm Heart sounds: S1 normal heart sound present and S2 normal heart sound present Skin Other: Skin irritation around rectum Extrem General: Yes full ROM Results AMB Hemoglobin A1c AMB Hemoglobin A1c 7.6 % Last Edit by KERRY Wilson on 07/24/23 13:2 3 Results Reviewed Results Reviewed: Laboratory Last Values Hgb A1c (Clinic) 7.6 % (4.0-6.0) H 07/24/23 12:47 Assessment and Plan Assessment & Plan (1) Hospital discharge follow-up: Code(s): Z09 - Encounter for follow-up examination after completed treatment for conditions other than malignant neoplasm Plan: Discharge date 07/18/2023 due to diarrhea which resolved. Also developed pneumonia was treated with IV antibiotics. Feels markedly improved. (2) Ischemic stroke: Code(s): I63.9 - Cerebral infarction, unspecified Plan: Keep LDL within goal. (3) Type 2 diabetes mellitus with diabetic polyneuropathy: Code(s): E11.42 - Type 2 diabetes mellitus with diabetic polyneuropathy Qualifiers: Diabetes mellitus nursing home insulin use: with agricultural lender use Qualified Code(s): E11.42 - Type 2 diabetes mellitus with diabetic polyneuropathy; Z79.4 - [facility] (current) use of insulin Plan: Increase Tresiba. Continue Jardiance. (4) Pure hypercholesterolemia: Code(s): E78.00 - Pure hypercholesterolemia, unspecified Plan: Continue statins. LDL goal is less than 70. (5) Mild recurrent major depression: Code(s): F33.0 - Major depressive disorder, recurrent, mild Plan: Continue trazodone (6) (HFpEF) heart failure with preserved ejection fraction: Code(s): I50.30 - Unspecified diastolic (congestive) heart failure Qualifiers: Heart failure chronicity: acute on chronic Qualified Code(s): I50.33 - Acute on chronic diastolic (congestive) heart failure Plan: Continue diuretics. The goal is to not gain 5 lb in a week. Follow-up with Cardiology. (7) Paroxysmal atrial fibrillation: Code(s): I48.0 - Paroxysmal atrial fibrillation Plan: Continue Xarelto. Follow-up with Cardiology. Orders: Orders AMB Hemoglobin A1c 07/24/23 E11.9 - Type 2 diabetes mellitus without complicatio ns Medications: New furosemide 20 mg PO DAILY 90 days 90 tabs 1RF Changed From insulin degludec (Tresiba FlexTouch U-100 insulin) 10 units subcut DAILY PRN Hyperglycemia To insulin degludec (Tresiba FlexTouch U-100 insulin) 10 units (0.1 mL) subcut DAILY 30 days 3 mL 6RF Hyperglycemia From gabapentin 600 mg PO TID To gabapentin 600 mg PO TID 30 days 90 tabs 1RF Coding Level of Care Code TCM Mod MDM <= 7 Days Diagnoses Hospital discharge follow-up Z09 Ischemic stroke I63.9 Type 2 diabetes mellitus with diabetic polyneuropathy, with long-term current use of insulin E11.42; Z79.4 Diabetes mellitus agricultural lender insulin use: with agricultural lender use Pure hypercholesterolemia E78.00 Mild recurrent major depression F33.0 Acute on chronic heart failure with preserved ejection fraction I50.33 Heart failure chronicity: acute on chronic Paroxysmal atrial fibrillation I48.0 Additional Codes ALY-7 Assessment Billing - ALY-7 Assessment Tool: ALY-7 Assessment 57308 ([id number]) Time Spent (min) 38
[2023-07-24 12:59] VITALS: BP 160/70; BMI 36.3
== END 2023-07-24 13:45 | disposition home or self-care (01) ==
PROVIDERS: PCP Internal Medicine; Visit Provider Internal Medicine
DX: E11.42 Type 2 diabetes mellitus with diabetic polyneuropathy (principal); Z79.4 Long term (current) use of insulin; F33.0 Major depressive disorder, recurrent, mild; I50.33 Acute on chronic diastolic (congestive) heart failure; I48.0 Paroxysmal atrial fibrillation; Z09 Encounter for follow-up examination after completed treatment for conditions other than malignant neoplasm; Z86.73 Personal history of transient ischemic attack (TIA), and cerebral infarction without residual deficits; E78.00 Pure hypercholesterolemia, unspecified
CPT/HCPCS: 83036; 99214

== ENCOUNTER → 2023-08-15 23:59 | Outpatient (BNV) | payer MEDICARE, SELFPAY ==
--- NOTE | 2023-08-25 18:40 | A.OFFVIS_ITS ---
Intake Intake Visit Reasons: Remote Device Check- [facility] Allergies morphine [Morphine] Allergy (Severe, Verified 07/24/23 13:14) ITCHING, hives cefdinir Allergy (Intermediate, Verified 07/24/23 13:14) hives sulfamethoxazole Allergy (Intermediate, Verified 07/24/23 13:14) RASH trimethoprim Allergy (Intermediate, Verified 07/24/23 13:14) RASH duloxetine Adverse Reaction (Severe, Verified 07/24/23 13:14) altered behavior [facility] Medical History (Updated 07/25/23 @ 12:20 by Marla Bray MD) (HFpEF) heart failure with preserved ejection fraction Mild recurrent major depression Fracture, cervical vertebra Hyperlipidemia LDL goal <70 Post-dural puncture headache PONV (postoperative nausea and vomiting) Positive occult stool blood test [place] Headache Anemia Acute upper GI bleed Diabetic polyneuropathy COVID-19 Thiamine deficiency Hand pain CVA (cerebral vascular accident) Head injury Left shoulder pain Left knee pain Left hip pain Left hand pain Dizziness Diabetic neuropathy Diabetes type 2, uncontrolled Type 2 diabetes mellitus with other diabetic kidney complication Proteinuria Type 2 diabetes mellitus with diabetic polyneuropathy Dyslipidemia Obesity due to excess calories Other and unspecified hyperlipidemia Chronic heart failure with preserved ejection fraction (HFpEF) Anemia Thrombocytosis Pulmonary hypertension Ischemic stroke Paroxysmal atrial fibrillation Atherosclerotic cardiovascular disease Hospital discharge follow-up Thrombus Urge urinary incontinence Iron deficiency anemia Pure hypercholesterolemia Essential hypertension Diabetes mellitus Lumbar degenerative disc disease Surgical History S/P laminectomy S/P cardiac pacemaker procedure S/P insertion of spinal cord stimulator H/O colonoscopy History of Mohs micrographic surgery for skin cancer Hx of cervical spine surgery History of partial hysterectomy Hx of cardiac cath Family History Father Rectal cancer Hypertension Arthritis of knee CVD (cardiovascular disease) Mother Hypertension CVD (cardiovascular disease) Myocardial infarction Diabetes Social History Household Members: Spouse Housing: Apartment Are you a primary healthcare administrator to a significant other at home: No Do you presently have visiting nurse or other home services: Yes Alcohol intake: never Comment: na Patient Tobacco Use Status: Former Tobacco user Quit Date: 1993 Tobacco use type: Cigarette e-Cigarette/Vaping Use: Never Used Second Hand Smoke Exposure: No Advance Directives Date on File: 06/09/23 service: No Current occupational status: retired Current occupation: Lt handed Cognitive needs: Yes (scodor/walker) Hearing needs: No Vision needs: Yes (glasses) Office Procedures Cardiac Device Check Cardiac Device Check Details: Date of service- 08/15/2023 ; Battery life >8 years; normal lead parameters; AP 77%; MANUAL LATHE OPERATOR <1%; AT/AF burden 3.7% with some rapid rates. Overall normal device function. [id number] Cardiac Device Interrogation, pacemaker Procedure code (CPT) selection complete Assessment & Plan Assessment & Plan (1) Atrial flutter: Code(s): I48.92 - Unspecified atrial flutter (2) Paroxysmal atrial fibrillation: Code(s): I48.0 - Paroxysmal atrial fibrillation Plan x Coding Level of Care Code Procedure Only Diagnoses Atrial flutter I48.92 Paroxysmal atrial fibrillation I48.0 CPT Codes Cardiac Device Check - Cardiac Device 12: [id number] Cardiac Device Interrogation, pacemaker ([id number])
== END ==
PROVIDERS: PCP Internal Medicine; Visit Provider Internal Medicine
DX: I48.92 Unspecified atrial flutter (principal); I48.0 Paroxysmal atrial fibrillation; Z95.0 Presence of cardiac pacemaker
CPT/HCPCS: 93294

== ENCOUNTER 2023-08-28 13:29 | Outpatient (AMB) | payer MEDICARE, SELFPAY ==
--- NOTE | 2023-08-28 13:32 | MHC.PC.OV ---
Vital Signs 08/28/23 13:34 Height 5 ft 3 in Weight 197 lb BMI 34.9 BP 126/80 Blood Pressure Location Lt brachial Position Sitting Intake Visit Reasons: dm Intake Note: Patient here for a follow up DM, c/o seeing yellow, problems with hearing, congestion Senior Construction Project Manager Required: No Accompanied by: Spouse Allergies morphine [Morphine] Allergy (Severe, Verified 08/28/23 13:46) ITCHING, hives cefdinir Allergy (Intermediate, Verified 08/28/23 13:46) hives sulfamethoxazole Allergy (Intermediate, Verified 08/28/23 13:46) RASH trimethoprim Allergy (Intermediate, Verified 08/28/23 13:46) RASH duloxetine Adverse Reaction (Severe, Verified 08/28/23 13:46) altered behavior Medication List - Last Reconciled 08/28/23 by Marla Bray MD atenolol 50 mg PO BID baclofen 10 mg PO TID PRN 30 days [id number]-tyazwpejuvsfv-yfwu 50-325-40 mg 1 tab PO Q4H PRN cholecalciferol (vitamin D3) 50 mcg PO DAILY clonazepam 0.5 mg PO BID 30 days clotrimazole-betamethasone 1-0.05 % 1 appl topical DAILY PRN cyanocobalamin (vitamin B-12) 1,000 mcg PO DAILY docusate sodium 100 mg PO DAILY empagliflozin (Jardiance) 25 mg PO DAILY fenofibrate 160 mg PO DAILY ferrous sulfate 325 mg PO BID fluticasone propionate 50 mcg/actuation 1 spray intranasal DAILY furosemide 20 mg PO DAILY 90 days gabapentin 600 mg PO TID 30 days hydroxychloroquine 200 mg PO BID insulin degludec (Tresiba FlexTouch U-100 insulin) 10 units (0.1 mL) subcut DAILY 30 days lidocaine 5% 1 patch topical DAILY PRN loratadine 10 mg PO DAILY 90 days losartan 25 mg PO DAILY magnesium 200 mg PO DAILY meloxicam 15 mg PO DAILY PRN mirabegron ER (Myrbetriq) 50 mg PO DAILY multivitamin 1 tab PO DAILY nystatin 1 appl topical BID omeprazole 40 mg PO BID@0630,1630 oxycodone 5 mg PO TID PRN rivaroxaban (Xarelto) 20 mg PO DAILY@1700 ropinirole 0.5 mg PO BEDTIME rosuvastatin 40 mg PO BEDTIME thiamine HCl (vitamin B1) 100 mg PO DAILY trazodone 100 mg PO BEDTIME 90 days Tobacco use date assessed: 07/24/23 Fall risk assessment: 1 Fall in past year Last assessed Fall Risk: 08/28/23 Dental Screening Dental Screen Date: 07/24/23 HPI HPI Comments History of Present Illness Details This is a 73-year-old female with diabetes mellitus type 2 on long-term current use of insulin, ischemic stroke, hypertension, moderate major depression, paroxysmal atrial fibrillation and chronic heart failure with preserved ejection fraction that comes today accompanied by for follow-up on her conditions. Walks with walker due to gait instability. A1c elevated and I will increase Tresiba from 10 units to 12 units. Had ischemic stroke with no residual deficit. Blood pressure stable. Depression still somewhat present but she just lost her daughter that was battling cancer 3 weeks ago. I will change trazodone to venlafaxine. On chronic anticoagulation for atrial fibrillation and denies any active bleeding. Denies gaining 5 lb in a week. Last ejection fraction was July 2022 with ejection fraction over 70%. She follows with cardiology for her atrial fibrillation and chronic heart failure. Complains of nasal congestion and sore throat as well as bilateral ear discomfort with no fever and I will start her on antibiotics. She also has pure hypercholesterolemia on statins and lipid panel was ordered. [facility] Medical History (Updated 08/28/23 @ 14:44 by Marla Bray MD) Knee osteomyelits, right Atrial flutter Acute on chronic heart failure with preserved ejection fraction MDD (major depressive disorder), recurrent episode, moderate (HFpEF) heart failure with preserved ejection fraction Mild recurrent major depression Fracture, cervical vertebra Hyperlipidemia LDL goal <70 Post-dural puncture headache PONV (postoperative nausea and vomiting) Positive occult stool blood test [place] Headache Anemia Acute upper GI bleed Diabetic polyneuropathy COVID-19 Thiamine deficiency Hand pain CVA (cerebral vascular accident) Head injury Left shoulder pain Left knee pain Left hip pain Left hand pain Dizziness Diabetic neuropathy Diabetes type 2, uncontrolled Type 2 diabetes mellitus with other diabetic kidney complication Proteinuria Type 2 diabetes mellitus with diabetic polyneuropathy Dyslipidemia Obesity due to excess calories Other and unspecified hyperlipidemia Chronic heart failure with preserved ejection fraction (HFpEF) Anemia Thrombocytosis Pulmonary hypertension Ischemic stroke Paroxysmal atrial fibrillation Atherosclerotic cardiovascular disease Hospital discharge follow-up Thrombus Urge urinary incontinence Iron deficiency anemia Pure hypercholesterolemia Essential hypertension Diabetes mellitus Lumbar degenerative disc disease Surgical History S/P laminectomy S/P cardiac pacemaker procedure S/P insertion of spinal cord stimulator H/O colonoscopy History of Mohs micrographic surgery for skin cancer Hx of cervical spine surgery History of partial hysterectomy Hx of cardiac cath Family History Father Rectal cancer Hypertension Arthritis of knee CVD (cardiovascular disease) Mother Hypertension CVD (cardiovascular disease) Myocardial infarction Diabetes Social History Household Members: Spouse Housing: Apartment Are you a primary child care attendant to a significant other at home: No Do you presently have visiting nurse or other home services: Yes Alcohol intake: never Comment: na Patient Tobacco Use Status: Former Tobacco user Quit Date: 1993 Tobacco use type: Cigarette e-Cigarette/Vaping Use: Never Used Second Hand Smoke Exposure: No Advance Directives Date on File: 06/09/23 service: No Current occupational status: retired Current occupation: Lt handed Cognitive needs: Yes (scodor/walker) Hearing needs: No Vision needs: Yes (glasses) Questionnaire Thrive Questionnaire Date Thrive assessed: 07/24/23 ALY-7 AMB Questionnaire ALY-7 Date ALY - 7 assessed: 07/24/23 Source: Developed by Drs. Otto Zayas, Rima Frankel, Brenden Zhang and colleagues, with an educational norma from [employer]. Review of Systems Const All systems reviewed & are unremarkable except as noted in HPI and below Eyes Reports no additional complaints, Denies change in vision and Denies other visual disturbances Card Denies chest pain at rest, Denies chest pain with activity, Denies edema, Denies irregular heart rhythm, Denies claudication, Denies dyspnea, Denies dyspnea on exertion, Denies orthopnea, Denies paroxysmal nocturnal dyspnea and Denies slow heart rate Resp Denies cough, Denies dyspnea and Denies dyspnea on exertion Physical exam (Primary Care) Vital Signs: Last Vital Signs BP 126/80 08/28/23 13:34 BMI result Body Mass Index 34.9 Tobacco/Smoking Status: Tobacco use Status Tobacco use date assessed 07/24/23 08/28/23 13:38 Patient Tobacco Use Status Former Tobacco user 08/28/23 13:38 Tobacco use type Cigarette 08/28/23 13:38 e-Cigarette/Vaping Use Never Used 08/28/23 13:38 Thrive Assessment: Date of Thrive Assessment Date Thrive assessed 07/24/23 08/28/23 13:38 Const Limitations: ambulation with walker HENMT Ears: external ears normal and TM's normal bilaterally General nose exam: Normal external nose present Face and sinus: Yes sinuses nontender Mouth: lip normal Resp Effort & Inspection: normal respiratory effort Auscultation: clear to auscultation bilaterally Cardio Jugular venous distension: no JVD Rate: regular rate Rhythm: regular rhythm Heart sounds: S1 normal heart sound present and S2 normal heart sound present Extrem General: Yes full ROM Assessment and Plan Assessment & Plan (1) Mild recurrent major depression: Code(s): F33.0 - Major depressive disorder, recurrent, mild Plan: Discontinue trazodone. Start venlafaxine. (2) Paroxysmal atrial fibrillation: Code(s): I48.0 - Paroxysmal atrial fibrillation Plan: Continue Xarelto. Follow-up with Cardiology. (3) Chronic heart failure with preserved ejection fraction (HFpEF): Code(s): I50.32 - Chronic diastolic (congestive) heart failure Plan: Use diuretics as needed. Follow-up with Cardiology. The goal is to not gain 5 lb in a week. (4) Type 2 diabetes mellitus with diabetic polyneuropathy: Code(s): E11.42 - Type 2 diabetes mellitus with diabetic polyneuropathy Qualifiers: Diabetes mellitus long distance operator insulin use: with chcf use Qualified Code(s): E11.42 - Type 2 diabetes mellitus with diabetic polyneuropathy; Z79.4 - intermediate teacher (current) use of insulin Plan: Increase Tresiba from 10 units to 12 units. A1c goal is equal or less than 7%. (5) Ischemic stroke: Code(s): I63.9 - Cerebral infarction, unspecified Plan: Keep blood pressure less than 130/80. Use walker for gait support. (6) Pure hypercholesterolemia: Code(s): E78.00 - Pure hypercholesterolemia, unspecified Plan: Continue statins. Repeat lipid panel. LDL goal is less than 70. Orders: Orders Complete Blood Count Auto Diff 4 Months D64.9 - Anemia, unspecified IRON PROFILE 4 Months D64.9 - Anemia, unspecified Microalbumin, Random (w Creat) 4 Months E11.9 - Type 2 diabetes mellitus without complications Vitamin D 25-OH Total 4 Months E55.9 - Vitamin D deficiency, unspecified Lipid Panel 4 Months E78.5 - Hyperlipidemia, unspecified NT-proBNP 4 Months I50.33 - Acute on chronic diastolic (congestive) heart failure Comprehensive [place]. Panel Fast 4 Months I50.33 - Acute on chronic diastolic (congestive) heart failure Medications: New venlafaxine ER 37.5 mg PO BEDTIME 90 days 90 caps 1RF cetirizine (All Day Allergy (cetirizine)) 10 mg PO DAILY 90 days PRN 90 tabs 1RF allergy symptoms doxycycline hyclate 100 mg PO BID 5 days 10 tabs 0RF Changed From insulin degludec (Tresiba FlexTouch U-100 insulin) 10 units (0.1 mL) subcut DAILY 30 days 3 mL 6RF Hyperglycemia To insulin degludec (Tresiba FlexTouch U-100 insulin) 12 units (0.12 mL) subcut DAILY 30 days 3.6 mL 6RF Hyperglycemia Discontinued loratadine Discontinued Reason: Patient Completed Course 10 mg PO DAILY 90 days 90 tabs 1RF trazodone Discontinued Reason: No Longer Medically Relevant 100 mg PO BEDTIME 90 days 90 tabs 0RF Coding Level of Care Code Est Pt Level 4 (02477) Diagnoses Mild recurrent major depression F33.0 Paroxysmal atrial fibrillation I48.0 Chronic heart failure with preserved ejection fraction (HFpEF) I50.32 Type 2 diabetes mellitus with diabetic polyneuropathy, with long-term current use of insulin E11.42; Z79.4 Diabetes mellitus long distance operator insulin use: with long distance operator use Ischemic stroke I63.9 Pure hypercholesterolemia E78.00 Time Spent (min) 24
[2023-08-28 13:34] VITALS: BP 126/80; BMI 34.9
== END 2023-08-28 14:04 | disposition home or self-care (01) ==
PROVIDERS: PCP Internal Medicine; Visit Provider Internal Medicine
DX: I48.0 Paroxysmal atrial fibrillation (principal); F33.0 Major depressive disorder, recurrent, mild; I50.32 Chronic diastolic (congestive) heart failure; E11.42 Type 2 diabetes mellitus with diabetic polyneuropathy; Z79.4 Long term (current) use of insulin; Z86.73 Personal history of transient ischemic attack (TIA), and cerebral infarction without residual deficits; E78.00 Pure hypercholesterolemia, unspecified
CPT/HCPCS: 99214

== ENCOUNTER 2023-09-29 10:07 | Outpatient (AMB) | payer MEDICARE, SELFPAY ==
--- NOTE | 2023-09-29 10:27 | A.OFFVIS_ITS ---
Vital Signs 09/29/23 10:31 Height 5 ft 3 in Weight 197 lb BMI 34.9 BMI Reason not done Patient refused/unable BP 122/68 Blood Pressure Location Lt brachial Position Sitting Pulse 70 Pulse Source Pulse Oximeter Pulse Oximetry (%) 97 Oxygen Delivery Method Room Air Intake Visit Reasons: 6 mth f/up w/ pacer ck Allergies morphine [Morphine] Allergy (Severe, Verified 08/28/23 13:46) ITCHING, hives cefdinir Allergy (Intermediate, Verified 08/28/23 13:46) hives sulfamethoxazole Allergy (Intermediate, Verified 08/28/23 13:46) RASH trimethoprim Allergy (Intermediate, Verified 08/28/23 13:46) RASH duloxetine Adverse Reaction (Severe, Verified 08/28/23 13:46) altered behavior Medication List - Last Reconciled 09/29/23 by Genaro Sweet MD atenolol 50 mg PO BID baclofen 10 mg PO TID PRN 30 days [id number]-mcjsayvhtzckr-vwgn 50-325-40 mg 1 tab PO Q4H PRN cetirizine (All Day Allergy (cetirizine)) 10 mg PO DAILY PRN 90 days cholecalciferol (vitamin D3) 50 mcg PO DAILY 90 days clonazepam 0.5 mg PO BID 30 days clotrimazole-betamethasone 1-0.05 % 1 appl topical DAILY PRN cyanocobalamin (vitamin B-12) 1,000 mcg PO DAILY docusate sodium 100 mg PO DAILY doxycycline hyclate 100 mg PO BID 5 days empagliflozin (Jardiance) 25 mg PO DAILY fenofibrate 160 mg PO DAILY ferrous sulfate 325 mg PO BID fluticasone propionate 50 mcg/actuation 1 spray intranasal DAILY furosemide 20 mg PO DAILY 90 days gabapentin 600 mg PO TID 30 days hydroxychloroquine 200 mg PO BID 90 days insulin degludec (Tresiba FlexTouch U-100 insulin) 12 units (0.12 mL) subcut DAILY 30 days lidocaine 5% 1 patch topical DAILY PRN losartan 25 mg PO DAILY magnesium 200 mg PO DAILY meloxicam 15 mg PO DAILY PRN mirabegron ER (Myrbetriq) 50 mg PO DAILY 90 days multivitamin 1 tab PO DAILY nystatin 1 appl topical BID omeprazole 40 mg PO BID@0630,1630 oxycodone 5 mg PO TID PRN rivaroxaban (Xarelto) 20 mg PO DAILY@1700 ropinirole 0.5 mg (2 x 0.25 mg) PO DAILY 90 days rosuvastatin 40 mg PO BEDTIME 90 days thiamine HCl (vitamin B1) 100 mg PO DAILY venlafaxine ER 37.5 mg PO BEDTIME 90 days HPI Comments Details: Missy returns for follow-up regarding various cardiac issues. To recall, she has coronary disease and underwent drug-eluting stent in her marginal artery in 2015. She has chronic heart failure with preserved ejection fraction, paroxysmal atrial fibrillation and hypertension. Multiple strokes in the last few years and has been hospitalized to [facility] as well as [facility]. In 2022, she was hospitalized and in that setting had atrial fibrillation rapid response but also had significant conversion pauses of greater than 6 seconds. During that time, she had some lightheadedness. Eventually had a permanent pacemaker implanted and discharged home. Then one further admission with a fall and it seems that she had cervical spine fracture. She was admitted to [facility] and then went to rehab. Lots of tiredness and fatigue type symptoms but nothing clear-cut cardiac. Remains on polypharmacy. [facility] Medical History (Updated 09/05/23 @ 00:02 by Background Daemon) Anemia Dehydration Essential hypertension Knee osteomyelits, right Atrial flutter Acute on chronic heart failure with preserved ejection fraction MDD (major depressive disorder), recurrent episode, moderate (HFpEF) heart failure with preserved ejection fraction Mild recurrent major depression Fracture, cervical vertebra Hyperlipidemia LDL goal <70 Post-dural puncture headache PONV (postoperative nausea and vomiting) Positive occult stool blood test [place] Headache Anemia Acute upper GI bleed Diabetic polyneuropathy COVID-19 Thiamine deficiency Hand pain CVA (cerebral vascular accident) Head injury Left shoulder pain Left knee pain Left hip pain Left hand pain Dizziness Diabetic neuropathy Diabetes type 2, uncontrolled Type 2 diabetes mellitus with other diabetic kidney complication Proteinuria Type 2 diabetes mellitus with diabetic polyneuropathy Dyslipidemia Obesity due to excess calories Other and unspecified hyperlipidemia Chronic heart failure with preserved ejection fraction (HFpEF) Anemia Thrombocytosis Pulmonary hypertension Ischemic stroke Paroxysmal atrial fibrillation Atherosclerotic cardiovascular disease Hospital discharge follow-up Thrombus Urge urinary incontinence Iron deficiency anemia Pure hypercholesterolemia Essential hypertension Diabetes mellitus Lumbar degenerative disc disease Surgical History (Updated 09/05/23 @ 00:02 by Background Daemon) S/P laminectomy S/P cardiac pacemaker procedure S/P insertion of spinal cord stimulator H/O colonoscopy History of Mohs micrographic surgery for skin cancer Hx of cervical spine surgery History of partial hysterectomy Hx of cardiac cath Family History Father Rectal cancer Hypertension Arthritis of knee CVD (cardiovascular disease) Mother Hypertension CVD (cardiovascular disease) Myocardial infarction Diabetes Social History Household Members: Spouse Housing: Apartment Are you a primary health care manager to a significant other at home: No Do you presently have visiting nurse or other home services: Yes Alcohol intake: never Comment: na Patient Tobacco Use Status: Former Tobacco user Quit Date: 1993 Tobacco use type: Cigarette e-Cigarette/Vaping Use: Never Used Second Hand Smoke Exposure: No Advance Directives Date on File: 06/09/23 service: No Current occupational status: retired Current occupation: Lt handed Cognitive needs: Yes (scodor/walker) Hearing needs: No Vision needs: Yes (glasses) Review of Systems Const Denies weakness ENT Denies dizziness Card Denies chest pain, Denies chest pain with activity, Denies syncope, Denies rapid heart rate, Denies pedal edema, Denies edema, Denies leg edema, Denies lightheadedness, Denies palpitations, Denies dyspnea, Denies dyspnea on exertion and Denies orthopnea Resp Denies cough, Denies dyspnea and Denies dyspnea on exertion GI Denies hematochezia and Denies change in stool character Musc Denies abnormal gait, Denies muscle cramps, Denies muscle weakness, Denies numbness, Denies radiating pain into limb and Denies tingling Neuro Denies abnormal gait, Denies dizziness, Denies syncope, Denies numbness, Denies tingling and Denies weakness Endo Denies palpitations Physical Exam Vital Signs: Last Vital Signs Pulse 70 09/29/23 10:31 BP 122/68 09/29/23 10:31 Pulse Ox 97 09/29/23 10:31 Oxygen Delivery Method Room Air 09/29/23 10:31 BMI result Body Mass Index 34.9 Const General: comfortable and no acute distress Orientation/consciousness: patient oriented x3 HEENT Other: Unremarkable Head: Yes normal to inspection Neck Neck: Yes normal visual inspection Chest Chest palpation & inspection: normal inspection of the chest Resp Auscultation: clear to auscultation bilaterally Cardio Palpation: normal PMI Heart sounds: S1 normal heart sound present, S2 normal heart sound present, no gallops, Murmur heart sound present systolic II/ and at the right sternal border and no rubs GI Palpation (GI): Soft to palpation Back/Spine/Pelvis Other: unremarkable Skin General skin exam: no rashes or lesions noted Neuro General: patient oriented x3 Extrem General: Yes normal to inspection Psych Mental Status: mental status grossly normal Assessment & Plan Assessment & Plan (1) Paroxysmal atrial fibrillation: Code(s): I48.0 - Paroxysmal atrial fibrillation Category: Medical Plan: In sinus rhythm. Continue atenolol. Has had Multaq in the past, but due to some interstitial findings CT scan, that was stopped. As she is on polypharmacy, would try to avoid rhythm control. Per recent remote device check, atrial fibrillation burden is 3.7%. Remains on anticoagulation. (2) Atherosclerotic cardiovascular disease: Code(s): I25.10 - Atherosclerotic heart disease of [place] coronary artery without angina pectoris Category: Medical Plan: Cardiac [id number] 2 vessel disease with RESIDENT BUYER of the RCA; collaterals from distal circumflex; severe lesion in OM2 ostium, culprit, status post JACY. Last stress MIBIi was abnormal with lateral wall findings. Another cardiac catheterization was planned but due to cervical spine fracture, never materialized. Considering her many comorbidities and frailty, lack of clear-cut angina, recommend optimal medical therapy only at this time. (3) Chronic heart failure with preserved ejection fraction (HFpEF): Code(s): I50.32 - Chronic diastolic (congestive) heart failure Category: Medical Plan: Seems stable. Continue diuretics. (4) Non-rheumatic aortic stenosis: Code(s): I35.0 - Nonrheumatic aortic (valve) stenosis Category: Medical Plan: Last echocardiogram 2022 with kzut-li-kiucgbas aortic stenosis. We can recheck in due course. (5) Mitral annular calcification: Code(s): I34.81 - Nonrheumatic mitral (valve) annulus calcification Category: Medical Plan: She has significant mitral annular calcification/moderate mitral stenosis. Can be followed echocardiograms but she has not going to be a candidate for any interventions even if needed in the future. (6) Ischemic stroke: Code(s): I63.9 - Cerebral infarction, unspecified Category: Medical Plan: Pr [facility] neurovascular note, she had left M1 occlusion and possible left M2 occlusion as well. Status post thrombectomy. [place] [place] internal carotid artery stenosis-70% on the right side and 50% on the left side. CTA from [place] in July 2020 shows internal carotid artery plaque at the origins worse on the left side at approximately 50%. In the most recent vascular ultrasound, 50-79% stenosis on the right side. Overall, thought to be stable. Left side no significant disease. Poor surgical candidate and recommend medical management only. (7) Essential hypertension: Code(s): I10 - Essential (primary) hypertension Category: Medical Plan: Stable. No changes. (8) Other and unspecified hyperlipidemia: Code(s): E78.5 - Hyperlipidemia, unspecified Category: Medical Plan: On statins and fenofibrate. Last LDL 48 mg/dL. Last triglycerides 88 mg/dL. Plan Discussed with significant other. Total time spent with review of recent hospital records, counseling, documentation, coordination of care-48 minutes. Coding Level of Care Code Est Pt Level 5 (15574) Diagnoses Paroxysmal atrial fibrillation I48.0 Atherosclerotic cardiovascular disease I25.10 Chronic heart failure with preserved ejection fraction (HFpEF) I50.32 Non-rheumatic aortic stenosis I35.0 Mitral annular calcification I34.81 Ischemic stroke I63.9 Essential hypertension I10 Other and unspecified hyperlipidemia E78.5
[2023-09-29 10:31] VITALS: BP 122/68; PULSE 70; O2SAT 97; BMI 34.9
== END 2023-09-29 11:07 | disposition home or self-care (01) ==
PROVIDERS: PCP Internal Medicine; Visit Provider Internal Medicine
DX: I48.0 Paroxysmal atrial fibrillation (principal); I25.10 Atherosclerotic heart disease of native coronary artery without angina pectoris; I50.32 Chronic diastolic (congestive) heart failure; I63.9 Cerebral infarction, unspecified; I35.0 Nonrheumatic aortic (valve) stenosis; I34.81 Nonrheumatic mitral (valve) annulus calcification; I10 Essential (primary) hypertension; E78.5 Hyperlipidemia, unspecified
CPT/HCPCS: 99215

== ENCOUNTER → 2023-09-29 10:07 | Outpatient (BNVA) | payer MEDICARE, SELFPAY | PROVIDERS: PCP Internal Medicine; Visit Provider Internal Medicine | DX: I48.0 Paroxysmal atrial fibrillation (principal); I25.10 Atherosclerotic heart disease of native coronary artery without angina pectoris; I11.0 Hypertensive heart disease with heart failure; I50.32 Chronic diastolic (congestive) heart failure; I35.0 Nonrheumatic aortic (valve) stenosis; I34.81 Nonrheumatic mitral (valve) annulus calcification; E78.5 Hyperlipidemia, unspecified; Z86.73 Personal history of transient ischemic attack (TIA), and cerebral infarction without residual deficits | CPT/HCPCS: 99212 ==

== ENCOUNTER 2023-11-04 09:50 | Outpatient (REF) | payer MEDICARE, MEDICAID, SELFPAY ==
--- NOTE | ~2023-11-04 | MM_ITS ---
EXAMINATION: MM SCREENING DIGITAL BREAST TOMOSYNTHESIS, BILATERAL CLINICAL INFORMATION: Screening. Asymptomatic. COMPARISON: Mammography: This study is compared with prior exams dating back to 2018. TECHNIQUE: Digital breast tomosynthesis is performed in both the craniocaudal and mediolateral oblique views along with computer-aided detection (CAD). Synthesized 2D images are generated from the tomosynthesis. FINDINGS: There are scattered areas of fibroglandular density (ACR BI-RADS breast composition Category b). There are no significant masses, abnormal calcifications, or other abnormalities. There are 2 biopsy tissue markers in the left breast and scattered, bilateral, benign calcifications. MM/MM tomosynthesis screening BI IMPRESSION: No mammographic evidence of malignancy. ASSESSMENT: BI-RADS BI-RADS 2 - Benign Findings RECOMMENDATION: Routine annual mammography screening. 1 year F/U This examination should not preclude the clinical evaluation of a suspicious palpable abnormality. This patient's information was entered into a reminder system with a target due date for their next mammogram.
== END 2023-11-04 09:51 | disposition home or self-care (01) ==
LOC: HO.MAMMO 09:50
PROVIDERS: PCP Internal Medicine; Visit Provider Internal Medicine
DX: Z12.31 Encounter for screening mammogram for malignant neoplasm of breast (principal)
CPT/HCPCS: 77063; 77067

== ENCOUNTER → 2023-11-04 10:00 | Outpatient (BNV) | payer MEDICARE, MEDICAID, SELFPAY | PROVIDERS: PCP Internal Medicine; Visit Provider Radiology Diagnostic Radiology | DX: Z12.31 Encounter for screening mammogram for malignant neoplasm of breast (principal) | CPT/HCPCS: 77063; 77067 ==

== ENCOUNTER → 2023-11-14 23:59 | Outpatient (BNV) | payer MEDICARE, MEDICAID, SELFPAY ==
--- NOTE | 2023-11-16 10:50 | MHC.OFFVIS ---
Intake Visit Reasons: Remote Device Check- [facility] Allergies morphine [Morphine] Allergy (Severe, Verified 08/28/23 13:46) ITCHING, hives cefdinir Allergy (Intermediate, Verified 08/28/23 13:46) hives sulfamethoxazole Allergy (Intermediate, Verified 08/28/23 13:46) RASH trimethoprim Allergy (Intermediate, Verified 08/28/23 13:46) RASH duloxetine Adverse Reaction (Severe, Verified 08/28/23 13:46) altered behavior PFSH Medical History (Updated 09/05/23 @ 00:02 by Background Daemon) Anemia Dehydration Essential hypertension Knee osteomyelits, right Atrial flutter Acute on chronic heart failure with preserved ejection fraction MDD (major depressive disorder), recurrent episode, moderate (HFpEF) heart failure with preserved ejection fraction Mild recurrent major depression Fracture, cervical vertebra Hyperlipidemia LDL goal <70 Post-dural puncture headache PONV (postoperative nausea and vomiting) Positive occult stool blood test [place] Headache Anemia Acute upper GI bleed Diabetic polyneuropathy COVID-19 Thiamine deficiency Hand pain CVA (cerebral vascular accident) Head injury Left shoulder pain Left knee pain Left hip pain Left hand pain Dizziness Diabetic neuropathy Diabetes type 2, uncontrolled Type 2 diabetes mellitus with other diabetic kidney complication Proteinuria Type 2 diabetes mellitus with diabetic polyneuropathy Dyslipidemia Obesity due to excess calories Other and unspecified hyperlipidemia Chronic heart failure with preserved ejection fraction (HFpEF) Anemia Thrombocytosis Pulmonary hypertension Ischemic stroke Paroxysmal atrial fibrillation Atherosclerotic cardiovascular disease Hospital discharge follow-up Thrombus Urge urinary incontinence Iron deficiency anemia Pure hypercholesterolemia Essential hypertension Diabetes mellitus Lumbar degenerative disc disease Surgical History (Updated 09/05/23 @ 00:02 by Background Daemon) S/P laminectomy S/P cardiac pacemaker procedure S/P insertion of spinal cord stimulator H/O colonoscopy History of Mohs micrographic surgery for skin cancer Hx of cervical spine surgery History of partial hysterectomy Hx of cardiac cath Family History Father Rectal cancer Hypertension Arthritis of knee CVD (cardiovascular disease) Mother Hypertension CVD (cardiovascular disease) Myocardial infarction Diabetes Social History Household Members: Spouse Housing: Apartment Are you a primary health care facilities inspector to a significant other at home: No Do you presently have visiting nurse or other home services: Yes Alcohol intake: never Comment: na Patient Tobacco Use Status: Former Tobacco user Tobacco use type: Cigarette e-Cigarette/Vaping Use: Never Used Second Hand Smoke Exposure: No Advance Directives Date on File: 06/09/23 service: No Current occupational status: retired Current occupation: Lt handed Cognitive needs: Yes (scodor/walker) Hearing needs: No Vision needs: Yes (glasses) Office Procedures Cardiac Device Check Cardiac Device Check Details: Date of service- 11/14/2023 ; Battery life >8 years; normal lead parameters; AP 91%; INSTRUCTOR LOOPING 1.1%; AT/AF burden 3.2%. Overall normal device function. [id number] Cardiac Device Interrogation, pacemaker Procedure code (CPT) selection complete Assessment & Plan Assessment & Plan (1) Paroxysmal atrial fibrillation: Code(s): I48.0 - Paroxysmal atrial fibrillation Category: Medical Plan x Coding Level of Care Code Procedure Only Diagnoses Paroxysmal atrial fibrillation I48.0 CPT Codes Cardiac Device Check - Cardiac Device 12: [id number] Cardiac Device Interrogation, pacemaker ([id number])
== END ==
PROVIDERS: PCP Internal Medicine; Visit Provider Internal Medicine
DX: I48.0 Paroxysmal atrial fibrillation (principal); Z95.0 Presence of cardiac pacemaker
CPT/HCPCS: 93294

== ENCOUNTER 2023-11-22 10:20 | Outpatient (REF) | payer MEDICARE, MEDICAID, SELFPAY ==
[2023-11-22 11:57] LABS: Appearance Urine Clear; Color Urine Yellow; Glucose Urine UA >=1000 mg/dL (Negative); Leukocyte Esterase Urine Negative (Negative); Nitrite Urine Negative (Negative); PH 6.5 (5.0-9.0); UMIC TRIGGER UA YES; UMIC TRIGGER UACC YES; Urine Blood Negative (Negative); Urine Ketones Negative (Negative); Urine Protein 30 (1+) mg/dL (Neg-Trace)
[2023-11-22 12:00] LABS: Bacteria Urine Trace (None Seen); Hyaline Casts Urine 0-2 /LPF (0-2); RBC Urine 0-2 /HPF (0-2); Squamous Epithelial Cell Urine 0-2 /HPF (0-2); WBC Urine 0-5 /HPF (0-5)
[2023-11-22 12:40] LABS: Creatinine Urine 10.09 mg/dL; Microalbum/Creatinine Ratio Ur 2210.1 ug/mg cr (<30)
== END 2023-11-22 10:21 | disposition home or self-care (01) ==
LOC: HO.LAB 10:20
PROVIDERS: Urology; PCP Internal Medicine; Visit Provider Internal Medicine
DX: N39.0 Urinary tract infection, site not specified (principal); N39.41 Urge incontinence; N32.81 Overactive bladder; N39.3 Stress incontinence (female) (male); E11.9 Type 2 diabetes mellitus without complications
CPT/HCPCS: 81001; 82043; 82570; 87086; 87088; 87186

== ENCOUNTER 2023-12-03 12:19 | Outpatient (AMB) | payer MEDICARE, MEDICAID, SELFPAY ==
--- NOTE | 2023-12-03 12:30 | A.OFFPC_ITS ---
Vital Signs 12/03/23 12:33 Height 5 ft 3 in Weight 213 lb 6.519 oz BMI 37.8 BP 118/70 Blood Pressure Location Lt brachial Position Sitting Pulse 70 Pulse Source Pulse Oximeter Pulse Oximetry (%) 98 Oxygen Delivery Method Room Air Intake Visit Reasons: Medication managment with Niece Patent Prosecution Attorney Required: No Accompanied by: Grand Child Allergies morphine [Morphine] Allergy (Severe, Verified 12/03/23 12:54) ITCHING, hives cefdinir Allergy (Intermediate, Verified 12/03/23 12:54) hives sulfamethoxazole Allergy (Intermediate, Verified 12/03/23 12:54) RASH trimethoprim Allergy (Intermediate, Verified 12/03/23 12:54) RASH duloxetine Adverse Reaction (Severe, Verified 12/03/23 12:54) altered behavior Medication List - Last Reconciled 12/03/23 by Marla Bray MD atenolol 50 mg PO BID baclofen 10 mg PO TID PRN 30 days [id number]-[id number] 50-325-40 mg 1 tab PO Q4H PRN cetirizine (All Day Allergy (cetirizine)) 10 mg PO DAILY PRN 90 days cholecalciferol (vitamin D3) 50 mcg PO DAILY 90 days clonazepam 0.5 mg PO BID 30 days clotrimazole-betamethasone 1-0.05 % 1 appl topical DAILY PRN cyanocobalamin (vitamin B-12) 1,000 mcg PO DAILY docusate sodium 100 mg PO DAILY doxycycline hyclate 100 mg PO BID 5 days empagliflozin (Jardiance) 25 mg PO DAILY fenofibrate 160 mg PO DAILY ferrous sulfate 325 mg PO BID fluticasone propionate 50 mcg/actuation 1 spray intranasal DAILY furosemide 20 mg PO DAILY 90 days gabapentin 600 mg PO TID 30 days hydroxychloroquine 200 mg PO BID 90 days insulin degludec (Tresiba FlexTouch U-100 insulin) 12 units (0.12 mL) subcut DAILY 30 days lidocaine 5% 1 patch topical DAILY PRN losartan 25 mg PO DAILY magnesium 200 mg PO DAILY meloxicam 15 mg PO DAILY PRN mirabegron ER (Myrbetriq) 50 mg PO DAILY 90 days multivitamin 1 tab PO DAILY nitrofurantoin macrocrystal 100 mg PO BID 5 days nystatin 1 appl topical BID omeprazole 40 mg PO BID@0630,1630 rivaroxaban (Xarelto) 20 mg PO QPM 90 days ropinirole 0.5 mg (2 x 0.25 mg) PO DAILY 90 days rosuvastatin 40 mg PO BEDTIME 90 days thiamine HCl (vitamin B1) 100 mg PO DAILY 90 days venlafaxine ER 37.5 mg PO BEDTIME 90 days Tobacco use date assessed: 07/24/23 Fall risk assessment: 2 + Falls in past year Last assessed Fall Risk: 12/03/23 Dental Screening Dental Screen Date: 07/24/23 HPI HPI Comments History of Present Illness Details This is a 73-year-old female with diabetes mellitus type 2 on long-term current use of insulin, mild recurrent major depression, hypertension, atrial fibrillation and chronic heart failure with preserved ejection fraction that comes today accompanied by and granddaughter which is her healthcare pr oxy for follow-up on her conditions and medication management. Granddaughter complains that she feels dizzy and has frequent falls. Has been in and out of the hospital multiple times due to this matter. She gets confused with medications because she said that it is many medications. She fell 2 days ago and hit her head and her a knee but did not lose consciousness. They use a wheelchair for long trips and she is currently in a wheelchair. I will decrease gabapentin from 600 mg 3 times a day to 300 mg twice a day. Her A1c is not on goal therefore I will increase her insulin from 12 units to 15 units once a day. She will keep Jardiance. She has hypertension that has been stable with atenolol and losartan. On chronic anticoagulation for atrial fibrillation. Furosemide will stay for her chronic heart failure which has also been stable. I am going to test her vitamins and magnesium to see if this is still needed. She used to be on trazodone and escitalopram for her depression as well as insomnia and I will just give her venlafaxine at bedtime extended release. I will decrease clonazepam from twice a day to once a day as needed. She complains of diarrhea and this is why I will discontinue docusate and senna. She does complains of allergic rhinitis every day and cetirizine will be kept as needed. Rosuvastatin will also be continued. She has persistent headaches and history of ischemic stroke and I will order head CT because she has a pacemaker and I do not feel comfortable ordering an MRI of the brain. She will be referred to Neurology. On hydroxychloroquine for her diffuse joint pain and she used to see Rheumatology but not anymore and I will refer her again to see if she still needs the medication. She has anemia and is on ferrous sulfate and was evaluated in the past by Hematology-Oncology. Hemoglobin will be monitored to see ferrous sulfate is still needed. She denies any active bleeding. [facility]LY [facility] Medical History (Updated 12/03/23 @ 13:53 by Marla Bray MD) Thiamine deficiency Anemia Dehydration Essential hypertension Knee osteomyelits, right Atrial flutter Acute on chronic heart failure with preserved ejection fraction MDD (major depressive disorder), recurrent episode, moderate (HFpEF) heart failure with preserved ejection fraction Mild recurrent major depression Fracture, cervical vertebra Hyperlipidemia LDL goal <70 Post-dural puncture headache PONV (postoperative nausea and vomiting) Positive occult stool blood test [place] Headache Anemia Acute upper GI bleed Diabetic polyneuropathy COVID-19 Hand pain CVA (cerebral vascular accident) Head injury Left shoulder pain Left knee pain Left hip pain Left hand pain Dizziness Diabetic neuropathy Diabetes type 2, uncontrolled Type 2 diabetes mellitus with other diabetic kidney complication Proteinuria Type 2 diabetes mellitus with diabetic polyneuropathy Dyslipidemia Obesity due to excess calories Other and unspecified hyperlipidemia Chronic heart failure with preserved ejection fraction (HFpEF) Anemia Thrombocytosis Pulmonary hypertension Ischemic stroke Paroxysmal atrial fibrillation Atherosclerotic cardiovascular disease Hospital discharge follow-up Thrombus Urge urinary incontinence Iron deficiency anemia Pure hypercholesterolemia Essential hypertension Diabetes mellitus Lumbar degenerative disc disease Surgical History S/P laminectomy S/P cardiac pacemaker procedure S/P insertion of spinal cord stimulator H/O colonoscopy History of Mohs micrographic surgery for skin cancer Hx of cervical spine surgery History of partial hysterectomy Hx of cardiac cath Family History Father Rectal cancer Hypertension Arthritis of knee CVD (cardiovascular disease) Mother Hypertension CVD (cardiovascular disease) Myocardial infarction Diabetes Social History Household Members: Spouse Housing: Apartment Are you a primary animal care worker to a significant other at home: No Do you presently have visiting nurse or other home services: Yes Alcohol intake: never Comment: na Patient Tobacco Use Status: Former Tobacco user Tobacco use type: Cigarette e-Cigarette/Vaping Use: Never Used Second Hand Smoke Exposure: No Advance Directives Date on File: 06/09/23 service: No Current occupational status: retired Current occupation: Lt handed Cognitive needs: Yes (scodor/walker) Hearing needs: No Vision needs: Yes (glasses) Questionnaire Thrive Questionnaire Date Thrive assessed: 07/24/23 ALY-7 AMB Questionnaire ALY-7 Date ALY - 7 assessed: 07/24/23 Source: Developed by Drs. Otto Zayas, Rima Frankel, Brenden Zhang and colleagues, with an educational norma from [employer]. Review of Systems Const All systems reviewed & are unremarkable except as noted in HPI and below Reports headache(s) ENT Reports dizziness, Reports headache(s) and Reports neck pain Card Denies chest pain at rest, Denies chest pain with activity, Denies edema, Denies irregular heart rhythm, Denies claudication, Denies dyspnea, Denies dyspnea on exertion, Denies orthopnea, Denies paroxysmal nocturnal dyspnea and Denies slow heart rate Resp Denies cough, Denies dyspnea and Denies dyspnea on exertion GI Denies abdominal pain, Denies change in bowel habits, Denies excessive flatus, Reports diarrhea, Denies nausea and Denies vomiting Reports urinary incontinence Musc Reports back pain, Reports arthralgias and Reports neck pain Neuro Reports dizziness, Reports headache(s) and Reports memory loss Psych Reports memory loss Physical exam (Primary Care) Vital Signs: Last Vital Signs Pulse 70 12/03/23 12:33 BP 118/70 12/03/23 12:33 Pulse Ox 98 12/03/23 12:33 Oxygen Delivery Method Room Air 12/03/23 12:33 BMI result Body Mass Index 37.8 BMI Assessment/Plan discussion: High BMI High, discussed plan: lifestyle, weight reduction, dietary and physical activity Tobacco/Smoking Status: Tobacco use Status Tobacco use date assessed 07/24/23 12/03/23 12:31 Patient Tobacco Use Status Former Tobacco user 12/03/23 12:31 Tobacco use type Cigarette 12/03/23 12:31 e-Cigarette/Vaping Use Never Used 12/03/23 12:31 Thrive Assessment: Date of Thrive Assessment Date Thrive assessed 07/24/23 12/03/23 12:31 Const Limitations: wheelchair HENMT Other: right skin lump in parietal area with some erythema Resp Effort & Inspection: normal respiratory effort Auscultation: clear to auscultation bilaterally Cardio Jugular venous distension: no JVD Rate: regular rate Rhythm: regular rhythm Heart sounds: S1 normal heart sound present and S2 normal heart sound present GI Rectal Exam - Female: other (redness in the buttock area) Extrem General: Yes full ROM Results AMB Hemoglobin A1c AMB Hemoglobin A1c 8.9 % Last Edit by KERRY Wilson on 12/03/23 12:5 7 Results Reviewed Results Reviewed: Laboratory Last Values Hgb A1c (Clinic) 8.9 % (4.0-6.0) H 12/03/23 12:55 Assessment and Plan Assessment & Plan (1) Mild recurrent major depression: Code(s): F33.0 - Major depressive disorder, recurrent, mild Plan: Continue venlafaxine at bedtime. Discontinue trazodone and escitalopram. (2) Paroxysmal atrial fibrillation: Code(s): I48.0 - Paroxysmal atrial fibrillation Plan: Continue Xarelto. Follow-up with Cardiology. (3) Chronic heart failure with preserved ejection fraction (HFpEF): Code(s): I50.32 - Chronic diastolic (congestive) heart failure Plan: Continue diuretics. Follow-up with Cardiology. The goal is to not gain 5 lb in a week (4) Type 2 diabetes mellitus with diabetic polyneuropathy: Code(s): E11.42 - Type 2 diabetes mellitus with diabetic polyneuropathy Qualifiers: Diabetes mellitus penitentiary insulin use: with penitentiary use Qualified Code(s): E11.42 - Type 2 diabetes mellitus with diabetic polyneuropathy; Z79.4 - custodial (current) use of insulin Plan: Continue Jardiance. Increase Lantus. A1c goal is equal or less than 7%. (5) Polyarthralgia: Code(s): M25.50 - Pain in unspecified joint Plan: Continue hydroxychloroquine for now. Referred to rheumatology. (6) Persistent headaches: Code(s): R51.9 - Headache, unspecified Plan: Head CT ordered. Referred to neurology. Orders: Orders AMB Hemoglobin A1c Today E11.42 - Type 2 diabetes mellitus with diabetic polyneuropathy, Z79.4 - custodial (current) use of insulin XR knee RT 2V Today M25.561 - Pain in right knee Complete Blood Count Auto Diff Today D64.9 - Anemia, unspecified IRON PROFILE Today D64.9 - Anemia, unspecified Vitamin D 25-OH Total Today E55.9 - Vitamin D deficiency, unspecified Microalbumin, Random (w Creat) Today E11.9 - Type 2 diabetes mellitus without complications Vitamin B1 Today E51.9 - Thiamine deficiency, unspecified Comprehensive [place]. Panel Fast Today I48.0 - Paroxysmal atrial fibrillation Magnesium Today E83.42 - Hypomagnesemia Cyclic Citrullinated Peptide Today M25.50 - Pain in unspecified joint Rheumatoid Factor Today M25.50 - Pain in unspecified joint CT head for stroke Today R51.9 - Headache, unspecified Lipid Panel Today E78.5 - Hyperlipidemia, unspecified Vitamin B12 and Folate Today E53.8 - Deficiency of other specified B group vitamins Erythrocyte Sedimentation Rate Today M25.50 - Pain in unspecified joint MARLA Reflex Titer and Pattern Today M25.50 - Pain in unspecified joint Referrals Rheumatology Referral M25.50 - Pain in unspecified joint Neurology Referral R51.9 - Headache, unspecified Medications: New gabapentin 300 mg PO BID 30 days 60 caps 0RF Changed From insulin degludec (Tresiba FlexTouch U-100 insulin) 12 units (0.12 mL) subcut DAILY 30 days 3.6 mL 6RF Hyperglycemia To insulin degludec (Tresiba FlexTouch U-100 insulin) 15 units (0.15 mL) subcut DAILY 30 days 4.5 mL 6RF Hyperglycemia From atenolol 50 mg PO BID To atenolol 50 mg PO BID 30 days 60 tabs 6RF From omeprazole 40 mg PO BID@0630,1630 90 caps 0RF To omeprazole 40 mg PO .once a day 30 days PRN 30 caps 0RF heartburn From clonazepam 0.5 mg PO BID 30 days 60 tabs 0RF To clonazepam 0.5 mg PO .once a day 30 days 30 tabs 0RF From ropinirole 0.5 mg (2 x 0.25 mg) PO DAILY 90 days 180 tabs 1RF To ropinirole 0.25 mg PO BEDTIME 90 days 90 tabs 1RF Refilled venlafaxine ER 37.5 mg PO BEDTIME 90 days 90 caps 1RF Discontinued 2 gabapentin Discontinued Reason: Patient Completed Course 600 mg PO TID 30 days 90 tabs 1RF doxycycline hyclate Discontinued Reason: Patient Completed Course 100 mg PO BID 5 days 10 tabs 0RF baclofen Discontinued Reason: Patient Completed Course 10 mg PO TID 30 days PRN 90 tabs 1RF for muscle spasm Coding Level of Care Code Est Pt Level 5 (11771) Complex EM visit Add On G2211 Diagnoses Mild recurrent major depression F33.0 Paroxysmal atrial fibrillation I48.0 Chronic heart failure with preserved ejection fraction (HFpEF) I50.32 Type 2 diabetes mellitus with diabetic polyneuropathy, with long-term current use of insulin E11.42; Z79.4 Diabetes mellitus penitentiary insulin use: with superintendent container terminal use Polyarthralgia M25.50 Persistent headaches R51.9 Time Spent (min) 58
[2023-12-03 12:33] VITALS: BP 118/70; PULSE 70; O2SAT 98; BMI 37.8
== END 2023-12-03 13:52 | disposition home or self-care (01) ==
PROVIDERS: PCP Internal Medicine; Visit Provider Internal Medicine
DX: F33.0 Major depressive disorder, recurrent, mild (principal); I48.0 Paroxysmal atrial fibrillation; I50.32 Chronic diastolic (congestive) heart failure; E11.42 Type 2 diabetes mellitus with diabetic polyneuropathy; Z79.4 Long term (current) use of insulin; M25.50 Pain in unspecified joint; R51.9 Headache, unspecified
CPT/HCPCS: 83036; 99215; G2212

== ENCOUNTER 2023-12-04 07:03 | Outpatient (REF) | payer MEDICARE, MEDICAID, SELFPAY ==
--- NOTE | ~2023-12-04 | XR_ITS ---
EXAMINATION: XR KNEE, RIGHT CLINICAL INFORMATION: Right knee pain after fall. COMPARISON: Right knee x-rays of 05/21/2021. TECHNIQUE: Two views of the right knee. FINDINGS: No evidence of acute fracture or dislocation. No suprapatellar joint effusion. Tricompartmental osteoarthritic changes are noted with [id number] narrowing of the joint spaces, subarticular sclerosis and marginal osteophytic changes. Diffuse arterial calcifications are noted. No soft tissue air or radiopaque foreign body. XR/XR knee RT 2V IMPRESSION: No evidence of acute fracture or dislocation in the right knee. No soft tissue air or radiopaque foreign body. [id number]-[id number] osteoarthritic changes in the right knee.
[2023-12-04 08:13] LABS: MANUAL DIFF FLAG NO
[2023-12-04 08:55] LABS: Basophils Absolute Auto 0.1 X10*3/uL (0.0-0.2); Basophils Percent Auto 0.9 % (0-2); Eosinophils Absolute Auto 0.2 X10*3/uL (0.0-0.4); Eosinophils Percent Auto 3.2 % (0-4); Hematocrit 45.9 % (37.0-47.0); Hemoglobin 13.9 g/dl (12.0-16.0); Imm Gran Abs Auto 0.02 X10*3/uL (0.00-0.03); Imm Gran Pct Auto 0.3 % (0.0-0.4); Lymphocytes Absolute Auto 1.4 X10*3/uL (1.2-4.9); Lymphocytes Percent Auto 20.1 % (20-40); Mean Corpuscular HGB Conc 30.3 g/dl (31.0-35.0); Mean Corpuscular Hemoglobin 28.6 pg (27.0-33.0); Mean Corpuscular Volume 94.4 fL (80.0-98.0); Mean Platelet Volume 9.5 fL (9.4-12.3); Monocytes Absolute Auto 0.8 X10*3/uL (0.1-1.2); Monocytes Percent Auto 11.1 % (2-11); Neutrophils Absolute Auto 4.5 x10*3/uL (2.0-8.3); Neutrophils Percent Auto 64.4 % (45-73); Platelet Count 287 X10*3/uL (160-400); Red Blood Count 4.86 X10*6/uL (4.20-5.50)
[2023-12-04 09:29] LABS: Alanine Aminotransferase 15 U/L (0-31); Albumin Level 4.1 g/dL (3.5-5.0); Alkaline Phosphatase 82 U/L (39-117); Anion Gap 16 (12-20); Aspartate Amino Transferase 19 U/L (5-31); Bilirubin Total 0.4 mg/dL (0.0-1.0); Blood Urea Nitrogen 40 mg/dL (9-16); Calcium 9.8 mg/dL (8.4-10.2); Carbon Dioxide 27 mmol/L (22-29); Chloride 104 mmol/L (96-108); Cholesterol 148 mg/dL (<200); Estimated Glomerular Filt Rate 54; Glucose Fasting 147 mg/dL (60-99); HDL Cholesterol 65 mg/dL (>40); Iron 69 mcg/dL (30-160); LDL Cholesterol Calculated 61 mg/dL (<100); Magnesium 2.9 mg/dL (1.6-2.6); Percent Iron Saturation 21 % (15-50); Potassium 5.3 mmol/L (3.3-5.1); Sodium 142 mmol/L (135-145); Total Iron Binding Capacity 328 mcg/dL (228-428); Total Protein 7.5 g/dL (6.5-8.0); Triglycerides 112 mg/dL (<150); Unsaturated Iron Binding 259 ug/dL
[2023-12-04 09:45] LABS: Vitamin D 25-OH Total 43.5 ng/mL (>30)
[2023-12-04 10:39] LABS: Rheumatoid Factor < 13.0 IU/mL (<15.0)
[2023-12-04 11:09] LABS: Folate 14.3 ng/mL (> or = 4.0); Vitamin B12 1157 pg/mL (200-900)
[2023-12-10 07:05] LABS: Anti Nuclear Antibody Screen NEGATIVE (NEGATIVE)
== END 2023-12-04 07:04 | disposition home or self-care (01) ==
LOC: HO.XRAY 07:03
PROVIDERS: PCP Internal Medicine; Visit Provider Internal Medicine
DX: M25.561 Pain in right knee (principal); D64.9 Anemia, unspecified; E78.5 Hyperlipidemia, unspecified; M25.50 Pain in unspecified joint; I50.32 Chronic diastolic (congestive) heart failure; E53.8 Deficiency of other specified B group vitamins; E83.42 Hypomagnesemia
CPT/HCPCS: 36415; 73560; 80053; 80061; 82306; 82607; 82746; 83540; 83735; 85025; 86038; 86431

== ENCOUNTER 2023-12-17 11:17 | Outpatient (AMB) | payer MEDICARE, SELFPAY ==
--- NOTE | 2023-12-17 11:20 | A.OFFVIS_ITS ---
Vital Signs 12/17/23 12:03 Height 5 ft 3 in Weight 209 lb 6 oz BMI 37.1 BP 160/70 H Blood Pressure Location Lt brachial Position Sitting Respiration 14 Pulse 83 Pulse Source Pulse Oximeter Pulse Oximetry (%) 97 Oxygen Delivery Method Room Air Intake Visit Reasons: Follow up Intake Note: Patient comes in follow up. Reports pain 10/10 Allergies morphine [Morphine] Allergy (Severe, Verified 12/17/23 12:10) ITCHING, hives cefdinir Allergy (Intermediate, Verified 12/17/23 12:10) hives sulfamethoxazole Allergy (Intermediate, Verified 12/17/23 12:10) RASH trimethoprim Allergy (Intermediate, Verified 12/17/23 12:10) RASH duloxetine Adverse Reaction (Severe, Verified 12/17/23 12:10) altered behavior HPI Comments Details: Missy is in my office today to discuss her pain in right lower extremity as well as axial back pain. She is patient with [facility]. She states that she was unable to charge her spinal cord stimulator 4 months. I gave her telephone number of Joaquín the outside sales representative for [facility]. As of her right lower extremity in the past I was scheduling her for genicular block on the right. She came to the injection site with severe edema of the lower extremity and procedure was canceled. Today she requests me to repeat the scheduling and go for the procedure. I will schedule her for right genicular nerve block without sedation. [facility] Medical History (Updated 12/10/23 @ 14:54 by Marla Bray MD) Thiamine deficiency Anemia Dehydration Essential hypertension Knee osteomyelits, right Atrial flutter Acute on chronic heart failure with preserved ejection fraction MDD (major depressive disorder), recurrent episode, moderate (HFpEF) heart failure with preserved ejection fraction Mild recurrent major depression Fracture, cervical vertebra Hyperlipidemia LDL goal <70 Post-dural puncture headache PONV (postoperative nausea and vomiting) Positive occult stool blood test [place] Headache Anemia Acute upper GI bleed Diabetic polyneuropathy COVID-19 Hand pain CVA (cerebral vascular accident) Head injury Left shoulder pain Left knee pain Left hip pain Left hand pain Dizziness Diabetic neuropathy Diabetes type 2, uncontrolled Type 2 diabetes mellitus with other diabetic kidney complication Proteinuria Type 2 diabetes mellitus with diabetic polyneuropathy Dyslipidemia Obesity due to excess calories Other and unspecified hyperlipidemia Chronic heart failure with preserved ejection fraction (HFpEF) Anemia Thrombocytosis Pulmonary hypertension Ischemic stroke Paroxysmal atrial fibrillation Atherosclerotic cardiovascular disease Hospital discharge follow-up Thrombus Urge urinary incontinence Iron deficiency anemia Pure hypercholesterolemia Essential hypertension Diabetes mellitus Lumbar degenerative disc disease Surgical History S/P laminectomy S/P cardiac pacemaker procedure S/P insertion of spinal cord stimulator H/O colonoscopy History of Mohs micrographic surgery for skin cancer Hx of cervical spine surgery History of partial hysterectomy Hx of cardiac cath Family History Father Rectal cancer Hypertension Arthritis of knee CVD (cardiovascular disease) Mother Hypertension CVD (cardiovascular disease) Myocardial infarction Diabetes Social History Household Members: Spouse Housing: Apartment Are you a primary healthcare insurance sales agent to a significant other at home: No Do you presently have visiting nurse or other home services: Yes Alcohol intake: never Comment: na Patient Tobacco Use Status: Former Tobacco user Tobacco use type: Cigarette e-Cigarette/Vaping Use: Never Used Second Hand Smoke Exposure: No Advance Directives Date on File: 06/09/23 service: No Current occupational status: retired Current occupation: Lt handed Cognitive needs: Yes (scodor/walker) Hearing needs: No Vision needs: Yes (glasses) Review of Systems Const All systems reviewed & are unremarkable except as noted in HPI and below Physical Exam Vital Signs: Last Vital Signs Pulse 83 12/17/23 12:03 Resp 14 12/17/23 12:03 BP 160/70 H 12/17/23 12:03 Pulse Ox 97 12/17/23 12:03 Oxygen Delivery Method Room Air 12/17/23 12:03 BMI result Body Mass Index 37.1 Const General: cooperative and no acute distress Orientation/consciousness: patient oriented x3 Neck Other: Axial compression and flexing backwards aggravate pain. Range of motion in the neck is limited. Pain radiates from the neck to the posterior head occipital area. Resp Effort & Inspection: normal respiratory effort, able to speak in complete sentences and no audible wheezes Neuro General: patient oriented x3 Extrem Other: The right lower extremity is no longer edematous range of motion is limited due to severe knee arthritis. Assessment & Plan Assessment & Plan (1) Osteoarthritis of right knee: Code(s): M17.11 - Unilateral primary osteoarthritis, right knee Category: Medical (2) Spondylosis of cervical joint without myelopathy: Code(s): M47.812 - Spondylosis without myelopathy or radiculopathy, cervical region Category: Medical (3) Degenerative disc disease: Category: Medical (4) Spinal stenosis: Code(s): M48.00 - Spinal stenosis, site unspecified Category: Medical (5) Right knee pain: Code(s): M25.561 - Pain in right knee Category: Medical Plan She will contact a outside sales representative for [facility] to restore charges of her spinal cord stimulator. As of her pain in the right knee I will schedule her for genicular nerve block. I will see her after the diagnostic procedure to explore possibility of treatment of the knee pain with RFA or peripheral nerve stimulation. Coding Level of Care Code Est Pt Level 3 (73444) Diagnoses Osteoarthritis of right knee M17.11 Spondylosis of cervical joint without myelopathy M47.812 Degenerative disc disease Spinal stenosis M48.00 Right knee pain M25.561
[2023-12-17 12:03] VITALS: BP 160/70; PULSE 83; RESP 14; O2SAT 97; BMI 37.1
== END 2023-12-17 11:57 | disposition home or self-care (01) ==
PROVIDERS: PCP Internal Medicine; Visit Provider Anesthesiology
DX: M17.11 Unilateral primary osteoarthritis, right knee (principal); M47.812 Spondylosis without myelopathy or radiculopathy, cervical region; M48.00 Spinal stenosis, site unspecified; M25.561 Pain in right knee
CPT/HCPCS: 99213

== ENCOUNTER → 2023-12-17 11:17 | Outpatient (BNVA) | payer MEDICARE, SELFPAY | PROVIDERS: PCP Internal Medicine; Visit Provider Anesthesiology | DX: M17.11 Unilateral primary osteoarthritis, right knee (principal); M47.812 Spondylosis without myelopathy or radiculopathy, cervical region; M48.00 Spinal stenosis, site unspecified; M25.561 Pain in right knee | CPT/HCPCS: 99212 ==

== ENCOUNTER → 2023-12-17 23:59 | Outpatient (BNV) | payer MEDICARE, MEDICAID, SELFPAY | PROVIDERS: PCP Internal Medicine; Visit Provider Internal Medicine | DX: E11.42 Type 2 diabetes mellitus with diabetic polyneuropathy (principal); I48.0 Paroxysmal atrial fibrillation; I11.0 Hypertensive heart disease with heart failure; I50.32 Chronic diastolic (congestive) heart failure; M51.16 Intervertebral disc disorders with radiculopathy, lumbar region | CPT/HCPCS: G0180 ==

== ENCOUNTER 2023-12-18 07:38 | Outpatient (AMB) | payer MEDICARE, MEDICAID, SELFPAY ==
[2023-12-18 07:43] VITALS: PULSE 70; O2SAT 98; BMI 37.0
--- NOTE | 2023-12-18 07:43 | MHC.OFFVIS ---
Vital Signs 12/18/23 07:43 Height 5 ft 3 in Weight 209 lb BMI 37.0 Pulse 70 Pulse Source Pulse Oximeter Pulse Oximetry (%) 98 Intake Visit Reasons: Follow up Intake Note: Patient here for follow up. patient states she fell again 3 weeks ago and suppose to have a CT scan next week. Allergies morphine [Morphine] Allergy (Severe, Verified 12/18/23 07:47) ITCHING, hives cefdinir Allergy (Intermediate, Verified 12/18/23 07:47) hives sulfamethoxazole Allergy (Intermediate, Verified 12/18/23 07:47) RASH trimethoprim Allergy (Intermediate, Verified 12/18/23 07:47) RASH duloxetine Adverse Reaction (Severe, Verified 12/18/23 07:47) altered behavior Medication List - Last Reconciled 12/18/23 by LOIDA Gómez atenolol 50 mg PO BID 30 days cetirizine (All Day Allergy (cetirizine)) 10 mg PO DAILY PRN 90 days cholecalciferol (vitamin D3) 50 mcg PO .three times a week 30 days clonazepam 0.5 mg PO .once a day 30 days clotrimazole-betamethasone 1-0.05 % 1 appl topical DAILY PRN empagliflozin (Jardiance) 25 mg PO DAILY fenofibrate 160 mg PO DAILY fluticasone propionate 50 mcg/actuation 1 spray intranasal DAILY furosemide 20 mg PO DAILY 90 days gabapentin 300 mg PO BID 30 days galcanezumab-gnlm (Emgality Pen) 240 mg (2 mL) subcut ONCE 30 days hydroxychloroquine 200 mg PO BID 90 days insulin degludec (Tresiba FlexTouch U-100 insulin) 15 units (0.15 mL) subcut DAILY 30 days Knee brace right hinge knee brace lidocaine 5% 1 patch topical DAILY PRN losartan 25 mg PO DAILY mirabegron ER (Myrbetriq) 50 mg PO DAILY 90 days multivitamin 1 tab PO DAILY nitrofurantoin macrocrystal 100 mg PO BID 5 days nystatin 1 appl topical BID omeprazole 40 mg PO .once a day PRN 30 days rivaroxaban (Xarelto) 20 mg PO QPM 90 days ropinirole 0.25 mg PO BEDTIME 90 days rosuvastatin 40 mg PO BEDTIME 90 days thiamine HCl (vitamin B1) 100 mg PO DAILY 90 days ubrogepant (Ubrelvy) 50 - 100 mg (0.5 - 1 x 100 mg) PO ONCE PRN 30 days venlafaxine ER 37.5 mg PO BEDTIME 90 days HPI Comments Details: 73-yr-old female presents for urgent visit d/t recent fall and headaches. Pt is accompanied by her . Pt reports she has had migraine since childhood, especially w/ her menses. She has had an increase in headaches since a neck injury last year. Then 2 weeks ago, she had a fall at home, fell backwards in her bathroom, and hit the back of head on the door frame and the bathtub. She states she tripped over the door jam. She denies LOC. She had an immediate headache and her whole body hurt. She did not go to the ER for this fall. She has had PCP f/u- head CT ordered- scheduled for 12/23/23. She has since had increased headache. The headache is her typical migraine w/ visual aura- but more intense. The headaches are coming severe throbbing and pressure from the neck and moving up both sides of the head a/w sees silver lights, watery eyes, photophobia, phonophobia, nausea, dizziness, activity intolerance. She feels like she is deaf - like she is under water. The headaches last all day. She has had a daily headache since the fall. Prior to this, she had 2-3 migraine days per week. She also has hand numbness, leg pains. She has a pain stimulator- states it is not currently working. She states she has been excessively sleepy despite using a CPAP machine. Her last sleep study was many years ago. She is currently using a borrowed CPAP. She uses ice for the headaches and neck pain. Takes Tylenol at bedtime. She states she was on Magnesium thought it helped- but was told to stop it. Recent labs show mildly elavted serum Mag level. [facility] Medical History (Updated 12/18/23 @ 21:43 by LOIDA Gómez) Thiamine deficiency Anemia Dehydration Essential hypertension Knee osteomyelits, right Atrial flutter Acute on chronic heart failure with preserved ejection fraction MDD (major depressive disorder), recurrent episode, moderate (HFpEF) heart failure with preserved ejection fraction Mild recurrent major depression Fracture, cervical vertebra Hyperlipidemia LDL goal <70 Post-dural puncture headache PONV (postoperative nausea and vomiting) Positive occult stool blood test [place] Headache Anemia Acute upper GI bleed Diabetic polyneuropathy COVID-19 Hand pain CVA (cerebral vascular accident) Head injury Left shoulder pain Left knee pain Left hip pain Left hand pain Dizziness Diabetic neuropathy Diabetes type 2, uncontrolled Type 2 diabetes mellitus with other diabetic kidney complication Proteinuria Type 2 diabetes mellitus with diabetic polyneuropathy Dyslipidemia Obesity due to excess calories Other and unspecified hyperlipidemia Chronic heart failure with preserved ejection fraction (HFpEF) Anemia Thrombocytosis Pulmonary hypertension Ischemic stroke Paroxysmal atrial fibrillation Atherosclerotic cardiovascular disease Hospital discharge follow-up Thrombus Urge urinary incontinence Iron deficiency anemia Pure hypercholesterolemia Essential hypertension Diabetes mellitus Lumbar degenerative disc disease Surgical History S/P laminectomy S/P cardiac pacemaker procedure S/P insertion of spinal cord stimulator H/O colonoscopy History of Mohs micrographic surgery for skin cancer Hx of cervical spine surgery History of partial hysterectomy Hx of cardiac cath Family History Father Rectal cancer Hypertension Arthritis of knee CVD (cardiovascular disease) Mother Hypertension CVD (cardiovascular disease) Myocardial infarction Diabetes Social History Household Members: Spouse Housing: Apartment Are you a primary care director rn to a significant other at home: No Do you presently have visiting nurse or other home services: Yes Alcohol intake: never Comment: na Patient Tobacco Use Status: Former Tobacco user Tobacco use type: Cigarette e-Cigarette/Vaping Use: Never Used Second Hand Smoke Exposure: No Advance Directives Date on File: 06/09/23 service: No Current occupational status: retired Current occupation: Lt handed Cognitive needs: Yes (scodor/walker) Hearing needs: No Vision needs: Yes (glasses) Physical Exam Vital Signs: Last Vital Signs Pulse 70 12/18/23 07:43 Pulse Ox 98 12/18/23 07:43 BMI result Body Mass Index 37.0 Const General: cooperative and no acute distress Orientation/consciousness: patient oriented x3 Resp Effort & Inspection: normal respiratory effort and able to speak in complete sentences Neuro General: patient oriented x3 Cranial nerves: Yes CN's II-XII intact bilaterally Cognition (Neuro): normal cognition Gait exam (Neuro): Assisted gait required Gait assisted method: walker Psych Appearance: grossly normal Mental Status: mental status grossly normal Speech and movement: Normal speech and movement present Affect: normal affect Attitude: cooperative Assessment & Plan Assessment & Plan (1) Concussion without loss of consciousness: Code(s): S06.0X0A - Concussion without loss of consciousness, initial encounter Category: Medical (2) Migraine with aura: Code(s): G43.109 - Migraine with aura, not intractable, without status migrainosus Category: Medical (3) Snoring: Code(s): R06.83 - Snoring Category: Medical (4) Excessive daytime sleepiness: Code(s): G47.19 - Other hypersomnia Category: Medical (5) Obstructive sleep apnea: Code(s): G47.33 - Obstructive sleep apnea (adult) (pediatric) Category: Medical Plan Pt has worsening headache s/p fall w/ positive head strike w/o LOC. Neuro exam reassuring. Suspect pt is having exacerbation of her typical migraine headache. However, concur w/ head CT as ordered, as pt is on chronic anti-coagulation. Pt advised to undergo f/u in-lab PSG to assess status of sleep apnea. Check labs for common etiologies of fatigue, headache. If Mag level WNL- we can consider resuming Mag supplement. Concur w/ head CT as ordered. For acute headache treatment: Trial Ubrelvy 100mg, 1 tab at onset of migraine headache, MR x's 1 in 2 hrs. Max 200mg/day. May take w/ Tylenol. Potential adverse effects of gepants, including but not limited to fatigue, nausea, dry mouth, constipation. Previous acute migraine medication trials: Fioricet- has helped in the past Acute migraine medication contraindications: All triptans d/t h/o CVA For headache prevention medication: Preventative medications should be taken routinely as prescribed for best effect, it may take several weeks to see full effect. Resume Start Riboflavin 400mg qam Start Emgality 240mg sc x's 1, then 120mg sc q month. Reviewed potential adverse effects of Emgality, including but not limited to injection site reactions. Continue Atenolol- used for BP Continue Venlafaxine- used for mood. Previous migraine prevention medication trials: No others Migraine prevention medication contraindications: TCAs d/t a-fib dx. Topiramate d/t retinopathy. Follow-up upon review of above and in 3 months or sooner prn. Orders: Orders RT PSG in-lab sleep study Today G47.19 - Other hypersomnia, G47.33 - Obstructive sleep apnea (adult) (pediatric), R06.83 - Snoring Magnesium Today E83.41 - Hypermagnesemia, G47.19 - Other hypersomnia, G47.33 - Obstructive sleep apnea (adult) (pediatric) Medications: New ubrogepant (Ubrelvy) take at onset of migraine, may repeat in 2hrs (may take w/ Tylenol) 50 - 100 mg (0.5 - 1 x 100 mg) PO ONCE 30 days PRN 16 tabs 3RF migraine headache galcanezumab-gnlm (Emgality Pen) Loading dose: 120 mg subcu injection x2 in alternate sites (total 240 mg). To be followed by maintenance dose of 120 mg subcu q.month. 240 mg (2 mL) subcut ONCE 30 days 2 mL 0RF Coding Level of Care Code Est Pt Level 4 (27307) Diagnoses Concussion without loss of consciousness S06.0X0A Migraine with aura G43.109 Snoring R06.83 Excessive daytime sleepiness G47.19 Obstructive sleep apnea G47.33 [place] Sleepiness Scale Questions Sitting and reading: high chance of dozing Watching TV: high chance of dozing Sitting inactive in a theater, movie etc.: high chance of dozing As a passenger in a car for an hour without break: high chance of dozing Lying down in the afternoon when circumstances permit: high chance of dozing Sitting and talking to someone: high chance of dozing Sitting quietly after lunch without alcohol: high chance of dozing In a car, while stopped for a few minutes in the traffic: would never doze ESS < 10: normal, ESS > 12: pathologic: 21
== END 2023-12-18 08:39 | disposition home or self-care (01) ==
PROVIDERS: PCP Internal Medicine; Visit Provider Nurse Practitioner Family
DX: S06.0X0A Concussion without loss of consciousness, initial encounter (principal); G43.109 Migraine with aura, not intractable, without status migrainosus; R06.83 Snoring; G47.19 Other hypersomnia; G47.33 Obstructive sleep apnea (adult) (pediatric)
CPT/HCPCS: 99214

== ENCOUNTER → 2023-12-18 07:38 | Outpatient (BNVA) | payer MEDICARE, MEDICAID, SELFPAY | PROVIDERS: PCP Internal Medicine; Visit Provider Nurse Practitioner Family | DX: S06.0X0A Concussion without loss of consciousness, initial encounter (principal); G43.109 Migraine with aura, not intractable, without status migrainosus; G47.19 Other hypersomnia; G47.33 Obstructive sleep apnea (adult) (pediatric); R06.83 Snoring | CPT/HCPCS: 99212 ==

== ENCOUNTER 2023-12-23 07:29 | Outpatient (REF) | payer MEDICARE, MEDICAID, SELFPAY ==
--- NOTE | ~2023-12-23 | CT_ITS ---
EXAMINATION: CT HEAD WITHOUT CONTRAST CLINICAL INFORMATION: Headache. COMPARISON: CT head 04/26/2023 TECHNIQUE: Contiguous axial imaging was performed from the skull base to vertex without intravenous administration of contrast. This CT examination was performed using dose optimization techniques as appropriate, variously including the following: *Automated exposure control *Adjustment of mA and/or kV according to patient size (this includes techniques or standardized protocols for targeted exams where dose is matched to indication/reason for exam; i.e. extremities or head) *Use of iterative reconstruction technique DLP: 812 mGy-cm FINDINGS: Moderate diffuse commensurate prominence of the ventricles and sulci. No intracranial hemorrhage, tumors or acute infarcts identified. Mild periventricular and subcortical white matter patchy hypodensities. A left scleral buckle is noted. No extra cranial soft tissue inflammatory changes visualized. No significant opacification of the visualized paranasal sinuses, mastoid air cells and middle ear cavities. Marked hyperostosis frontalis interna. CT/CT head/brain wo IV con IMPRESSION: *No acute endocrine abnormalities. *Mild chronic microangiopathy and ischemic changes. Electronically signed by: Masood Peterson MD 01/04/2024 03:10 AM EDT
== END 2023-12-23 07:30 | disposition home or self-care (01) ==
LOC: HO.CT 07:29
PROVIDERS: PCP Internal Medicine; Visit Provider Internal Medicine
DX: R51.9 Headache, unspecified (principal)
CPT/HCPCS: 70450

== ENCOUNTER → 2023-12-24 10:06 | Outpatient (BNVA) | payer MEDICARE, SELFPAY | PROVIDERS: PCP Internal Medicine; Visit Provider Anesthesiology | DX: Z71.89 Other specified counseling (principal) | CPT/HCPCS: 99211 ==

== ENCOUNTER 2023-12-30 13:28 | Outpatient (AMB) | payer MEDICARE, SELFPAY ==
--- NOTE | 2023-12-30 13:32 | MHC.PC.OV ---
Vital Signs 12/30/23 13:34 Height 5 ft 3 in Weight 210 lb BMI 37.2 BP 136/72 Blood Pressure Location Lt brachial Position Sitting Intake Visit Reasons: 4MOF\U Research Quality Assurance Analyst Required: No Accompanied by: Spouse Allergies morphine [Morphine] Allergy (Severe, Verified 12/30/23 13:46) ITCHING, hives cefdinir Allergy (Intermediate, Verified 12/30/23 13:46) hives sulfamethoxazole Allergy (Intermediate, Verified 12/30/23 13:46) RASH trimethoprim Allergy (Intermediate, Verified 12/30/23 13:46) RASH duloxetine Adverse Reaction (Severe, Verified 12/30/23 13:46) altered behavior Medication List - Last Reconciled 12/30/23 by Marla Bray MD atenolol 50 mg PO BID 30 days cetirizine (All Day Allergy (cetirizine)) 10 mg PO DAILY PRN 90 days cholecalciferol (vitamin D3) 50 mcg PO .three times a week 30 days clonazepam 0.5 mg PO .once a day 30 days clotrimazole-betamethasone 1-0.05 % 1 appl topical DAILY PRN empagliflozin (Jardiance) 25 mg PO DAILY fenofibrate 160 mg PO DAILY fluticasone propionate 50 mcg/actuation 1 spray intranasal DAILY furosemide 20 mg PO DAILY 90 days gabapentin 300 mg PO BID 30 days galcanezumab-gnlm (Emgality Pen) 240 mg (2 mL) subcut ONCE 30 days hydroxychloroquine 200 mg PO BID 90 days insulin degludec (Tresiba FlexTouch U-100 insulin) 15 units (0.15 mL) subcut DAILY 30 days Knee brace right hinge knee brace lidocaine 5% 1 patch topical DAILY PRN losartan 25 mg PO DAILY mirabegron ER (Myrbetriq) 50 mg PO DAILY 90 days multivitamin 1 tab PO DAILY nystatin 1 appl topical BID omeprazole 40 mg PO .once a day PRN 30 days rivaroxaban (Xarelto) 20 mg PO QPM 90 days ropinirole 0.25 mg PO BEDTIME 90 days rosuvastatin 40 mg PO BEDTIME 90 days thiamine HCl (vitamin B1) 100 mg PO DAILY 90 days ubrogepant (Ubrelvy) 50 - 100 mg (0.5 - 1 x 100 mg) PO ONCE PRN 30 days venlafaxine ER 37.5 mg PO BEDTIME 90 days Tobacco use date assessed: 07/24/23 Dental Screening Dental Screen Date: 07/24/23 HPI HPI Comments History of Present Illness Details This is a 73-year-old female with mild major depression, diabetes mellitus type 2 on long-term current use of insulin, paroxysmal atrial fibrillation and chronic heart failure with preserved ejection fraction that comes today for follow-up on her conditions. She came here 12/03/2023 with her granddaughter which signed healthcare proxy papers telling me that she is in too many medications and get confused. Complaining about severe dizziness. We agreed on decreasing medications that can cause dizziness such as gabapentin, clonazepam and trazodone. We did blood work and discontinue other medications such as ferrous sulfate which was no need for it. Now patient came with complaining that she can not sleep and that I did decrease clonazepam and discontinue trazodone. I started her on venlafaxine at bedtime but that has not work for her. When I ask her about her granddaughter she said that she has gone and is not there anymore. I will restart her on her trazodone and give her clonazepam twice a day again as prescribed in the past. She did not complain about dizziness but do have headaches that are follow by Neurology. I will retest her vitamins. Depression was better controlled with trazodone in the past. A1c elevated and I will increase Tresiba. On chronic anticoagulation for atrial fibrillation and denies any active bleeding. No leg swelling or gaining 5 lb in a week. Last echocardiogram 2022 shows ejection fraction over 70%. She follows with cardiology for her atrial fibrillation and chronic heart failure. She does look more alert today and is able to walk with a walker. [facility] Medical History (Updated 12/30/23 @ 14:23 by Marla Bray MD) Thiamine deficiency Anemia Dehydration Essential hypertension Knee osteomyelits, right Atrial flutter Acute on chronic heart failure with preserved ejection fraction MDD (major depressive disorder), recurrent episode, moderate (HFpEF) heart failure with preserved ejection fraction Mild recurrent major depression Fracture, cervical vertebra Hyperlipidemia LDL goal <70 Post-dural puncture headache PONV (postoperative nausea and vomiting) Positive occult stool blood test [place] Headache Anemia Acute upper GI bleed Diabetic polyneuropathy COVID-19 Hand pain CVA (cerebral vascular accident) Head injury Left shoulder pain Left knee pain Left hip pain Left hand pain Dizziness Diabetic neuropathy Diabetes type 2, uncontrolled Type 2 diabetes mellitus with other diabetic kidney complication Proteinuria Type 2 diabetes mellitus with diabetic polyneuropathy Dyslipidemia Obesity due to excess calories Other and unspecified hyperlipidemia Chronic heart failure with preserved ejection fraction (HFpEF) Anemia Thrombocytosis Pulmonary hypertension Ischemic stroke Paroxysmal atrial fibrillation Atherosclerotic cardiovascular disease Hospital discharge follow-up Thrombus Urge urinary incontinence Iron deficiency anemia Pure hypercholesterolemia Essential hypertension Diabetes mellitus Lumbar degenerative disc disease Surgical History S/P laminectomy S/P cardiac pacemaker procedure S/P insertion of spinal cord stimulator H/O colonoscopy History of Mohs micrographic surgery for skin cancer Hx of cervical spine surgery History of partial hysterectomy Hx of cardiac cath Family History Father Rectal cancer Hypertension Arthritis of knee CVD (cardiovascular disease) Mother Hypertension CVD (cardiovascular disease) Myocardial infarction Diabetes Social History Household Members: Spouse Housing: Apartment Are you a primary career development coordinator/teacher to a significant other at home: No Do you presently have visiting nurse or other home services: Yes Alcohol intake: never Comment: na Patient Tobacco Use Status: Former Tobacco user Tobacco use type: Cigarette e-Cigarette/Vaping Use: Never Used Second Hand Smoke Exposure: No Advance Directives Date on File: 06/09/23 service: No Current occupational status: retired Current occupation: Lt handed Cognitive needs: Yes (scodor/walker) Hearing needs: No Vision needs: Yes (glasses) Questionnaire Thrive Questionnaire Date Thrive assessed: 07/24/23 ALY-7 AMB Questionnaire ALY-7 Date ALY - 7 assessed: 07/24/23 Source: Developed by Drs. Otto Zayas, Rima Frankel, Brenden Zhang and colleagues, with an educational norma from [employer] Review of Systems Const All systems reviewed & are unremarkable except as noted in HPI and below Reports headache(s) ENT Reports headache(s) Card Denies chest pain at rest, Denies chest pain with activity, Denies edema, Denies irregular heart rhythm, Denies claudication, Denies dyspnea, Denies dyspnea on exertion, Denies orthopnea, Denies paroxysmal nocturnal dyspnea and Denies slow heart rate Resp Denies cough, Denies dyspnea and Denies dyspnea on exertion GI Denies abdominal pain, Denies change in bowel habits, Denies excessive flatus, Denies nausea and Denies vomiting Denies urinary incontinence, Denies urinary hesitancy and Denies urinary urgency Musc Reports back pain, Denies atrophy, Denies deformity, Reports arthralgias and Denies limited range of motion Neuro Denies confusion and Reports headache(s) Psych Denies confusion Physical exam (Primary Care) Vital Signs: Last Vital Signs BP 136/72 12/30/23 13:34 BMI result Body Mass Index 37.2 BMI Assessment/Plan discussion: High BMI High, discussed plan: lifestyle, weight reduction, dietary and physical activity Tobacco/Smoking Status: Tobacco use Status Tobacco use date assessed 07/24/23 12/30/23 13:41 Patient Tobacco Use Status Former Tobacco user 12/30/23 13:41 Tobacco use type Cigarette 12/30/23 13:41 e-Cigarette/Vaping Use Never Used 12/30/23 13:41 Thrive Assessment: Date of Thrive Assessment Date Thrive assessed 07/24/23 12/30/23 13:41 Const General: No confusion Orientation/consciousness: No confusion Limitations: ambulation with walker Resp Effort & Inspection: normal respiratory effort Auscultation: clear to auscultation bilaterally Cardio Jugular venous distension: no JVD Rate: regular rate Rhythm: regular rhythm Heart sounds: S1 normal heart sound present and S2 normal heart sound present Neuro General: no focal motor deficits and No confusion Extrem General: Yes full ROM Assessment and Plan Assessment & Plan (1) Mild recurrent major depression: Code(s): F33.0 - Major depressive disorder, recurrent, mild Plan: Discontinue venlafaxine. Restart trazodone at bedtime. (2) Paroxysmal atrial fibrillation: Code(s): I48.0 - Paroxysmal atrial fibrillation Plan: Continue Xarelto. Follow-up with Cardiology. (3) Chronic heart failure with preserved ejection fraction (HFpEF): Code(s): I50.32 - Chronic diastolic (congestive) heart failure Plan: Follow-up with Cardiology. The goal is to not gain 5 lb in a week. (4) Type 2 diabetes mellitus with diabetic polyneuropathy: Code(s): E11.42 - Type 2 diabetes mellitus with diabetic polyneuropathy Qualifiers: Diabetes mellitus [facility] insulin use: with [facility] use Qualified Code(s): E11.42 - Type 2 diabetes mellitus with diabetic polyneuropathy; Z79.4 - intermediate (current) use of insulin Plan: Increase insulin. A1c goal is equal or less than 7%. Orders: Orders Vitamin D 25-OH Total Today E55.9 - Vitamin D deficiency, unspecified Lipid Panel Today E78.5 - Hyperlipidemia, unspecified Complete Blood Count Auto Diff Today D64.9 - Anemia, unspecified Magnesium Today E83.41 - Hypermagnesemia NT-proBNP Today I50.32 - Chronic diastolic (congestive) heart failure Microalbumin, Random (w Creat) Today E11.9 - Type 2 diabetes mellitus without complications IRON PROFILE Today D64.9 - Anemia, unspecified Vitamin B1 Today E51.9 - Thiamine deficiency, unspecified ECG 12 lead EKG Today Z01.810 - Encounter for preprocedural cardiovascular examination Medications: New trazodone 100 mg PO BEDTIME 90 days PRN 90 tabs 1RF sleep Changed From clonazepam 0.5 mg PO .once a day 30 days 30 tabs 0RF To clonazepam 0.5 mg PO BID 30 days 60 tabs 0RF Discontinued venlafaxine ER Discontinued Reason: Patient Completed Course 37.5 mg PO BEDTIME 90 days 90 caps 1RF Coding Level of Care Code Est Pt Level 4 (90315) Complex EM visit Add On G2211 Diagnoses Mild recurrent major depression F33.0 Paroxysmal atrial fibrillation I48.0 Chronic heart failure with preserved ejection fraction (HFpEF) I50.32 Type 2 diabetes mellitus with diabetic polyneuropathy, with long-term current use of insulin E11.42; Z79.4 Diabetes mellitus meterman insulin use: with meterman use Time Spent (min) 25
[2023-12-30 13:34] VITALS: BP 136/72; BMI 37.2
== END 2023-12-30 14:00 | disposition home or self-care (01) ==
PROVIDERS: PCP Internal Medicine; Visit Provider Internal Medicine
DX: E11.42 Type 2 diabetes mellitus with diabetic polyneuropathy (principal); F33.0 Major depressive disorder, recurrent, mild; I48.0 Paroxysmal atrial fibrillation; I50.32 Chronic diastolic (congestive) heart failure; Z79.4 Long term (current) use of insulin
CPT/HCPCS: 99214; G2211

== ENCOUNTER → 2023-12-30 20:30 | Outpatient (REF) | payer MEDICARE, MEDICAID, SELFPAY | LOC: HO.SL 20:30 | PROVIDERS: PCP Internal Medicine; Visit Provider Nurse Practitioner Family | DX: G47.33 Obstructive sleep apnea (adult) (pediatric) (principal); R06.83 Snoring; G47.19 Other hypersomnia | CPT/HCPCS: 95810 ==

== ENCOUNTER → 2023-12-30 22:59 | Outpatient (BNV) | payer MEDICARE, MEDICAID, SELFPAY | PROVIDERS: PCP Internal Medicine; Visit Provider Psychiatry & Neurology Neurology | DX: G47.33 Obstructive sleep apnea (adult) (pediatric) (principal) | CPT/HCPCS: 95810 ==

== ENCOUNTER → 2024-01-08 11:50 | Outpatient (RCR) | payer MEDICARE, SELFPAY ==
--- NOTE | 2020-04-28 15:35 | MHC.HEMONC ---
Telephone visit with Dr. Smith today, follow up in 3 months. No complaints at this time.
--- NOTE | 2020-07-28 10:06 | P.PNHO_ITS ---
Hem[facility]Onc Clinic Telehealth - Telehealth Location of Provider rendering services: Hem/onc office. Location of Patient: Home. Patient Identification confirmed using: Name, : Yes Telehealth Method: Via telephone. Patient verbally consented to treatment: Yes. Patient verbally consented to billing insurance company: Yes Patient informed of any privacy concerns related to visit: Yes Medical Summary - Medical Summary Date of Service: 07/28/20 Chief complaint: F/U for Thrombocytosis. Medical Summary: Diagnosis: ANEMIA. THROMBOCYTOSIS. Interval History Interval history: This is a delightful 70 year-old lady, with whom a tele visit, was held. She has had ongoing issues with her back, related to a history of herniated disc and spinal stenosis. She fell and ended up at [facility]. She complained of pain in the back and her right hip. Five days later, she developed a stroke, while she was in house. She had Right sided weakness and speech deficit. She was able to recieve tPA. She was subsequently sent to [facility]. She underwent speech therapy and PT. She was started on Xeralto. Subsequently, she developed elevated B.P, abd edema feet. She was considered to be in CHF. Was given Amlodipine and water pill. She is scheduled for an echo on friday. She still gets back pain. She used to follow with orthopedics at [facility], in [place]. She had injections done. She now has a TENS machine. Now her symptoms are getting worse. She also has numbness and tingling in her legs. It is both of the legs. She feels fatigued. She denies chest pain or trouble breathing. She has history of GI upset and IBS. She denies abdominal pain, nausea vomiting heartburn nor indigestion. Her bowels are moving without any gross blood in it. She is somewhat constipated. She enjoys a good appetite. She has lost weight. Denies any urinary complaints. She denies any easy bruising nor systemic bleeding. She is in good spirits. Rest of the review of systems is unremarkable. Previous History: She has had a hysterectomy. She has some residual symptoms for which she follows with [employer]. . Review of Systems - Constitutional Reports system reviewed and no additional complaints, except as documented, Reports body ache(s), Reports fatigue, Reports lack of energy - Eyes Reports system reviewed and no additional complaints, except as documented, Denies blurry vision - ENT Reports system reviewed and no additional complaints, except as documented - Cardiovascular Reports system reviewed and no additional complaints, except as documented, Denies chest pain at rest - Respiratory Reports no additional respiratory complaints, Denies chest congestion - Gastrointestinal Reports system reviewed and no additional complaints, except as documented, Denies abdominal pain, Denies change in bowel habits - Genitourinary Reports no additional female genitourinary complaints - Musculoskeletal Reports system reviewed and no additional complaints, except as documented - Integumentary/Breasts Skin/Breast: Reports no additional skin complaints, Denies bleeding lesions - Neurologic Reports system reviewed and no additional complaints, except as documented - Psychiatric Reports system reviewed and no additional complaints, except as documented, Reports anxiety - Endocrine Reports no additional endocrine complaints - Hematologic/Lymphatic Reports system reviewed and no additional complaints, except as documented, Denies easy bruising - Allergic/Immunologic Reports system reviewed and no additional complaints, except as documented, Denies GI upset with certain foods Oncology Screenings - ECOG Performance Status ECOG Performance Status: 1 Home Medications and Allergies Home Medications Medication Instructions Recorded Confirmed Type Tresiba FlexTouch U-100 15 unit SUBCUT DAILY 07/12/20 08/02/20 History Trulicity 0.75 mg SUBCUT QWEEK 07/12/20 08/02/20 History Xarelto 20 mg PO QPM 07/12/20 08/02/20 History cyanocobalamin (vitamin B-12) 1,000 mcg PO DAILY 07/12/20 08/02/20 History docusate sodium [DOK] 100 mg PO BID PRN 07/12/20 08/02/20 History fenofibrate 160 mg PO DAILY 07/12/20 08/02/20 History ferrous sulfate 325 mg PO DAILY 07/12/20 08/02/20 History metformin 1,000 mg PO BID 07/12/20 08/02/20 History omeprazole 40 mg PO DAILY 07/12/20 08/02/20 History rosuvastatin [Crestor] 40 mg PO DAILY 07/12/20 08/02/20 History furosemide 40 mg tablet 40 mg PO BID tab 08/02/20 08/02/20 History hydroxychloroquine 200 mg tablet 200 mg PO BID tab 08/02/20 08/02/20 History insulin degludec 100 unit/mL (3 15 unit SUBCUT BEDTIME 08/02/20 08/02/20 History mL) subcutaneous pen Allergies Allergy/AdvReac Type Severity Reaction Status Date / Time sulfamethoxazole Allergy Intermediate RASH Verified 08/02/20 09:59 trimethoprim Allergy Intermediate RASH Verified 08/02/20 09:59 cefdinir Allergy Mild hives Verified 08/02/20 09:59 melatonin Allergy Mild inadequate Verified 08/02/20 09:59 response morphine [Morphine] Allergy Mild ITCHING, Verified 08/02/20 09:59 hives duloxetine AdvReac Intermediate altered Verified 08/02/20 09:59 behavior betina AdvReac Mild RUNNY NOSE Verified 08/02/20 09:59 mustard AdvReac Mild RUNNY NOSE Verified 08/02/20 09:59 potato [POTATO] AdvReac Mild ITCHY NOSE Verified 08/02/20 09:59 soybean AdvReac Mild RUNNY NOSE Verified 08/02/20 09:59 Exam - Constitutional Present: no acute distress - Routine HEENT Exam Head: Present: normal inspection Eye: Present: normal appearance ENT: Present: mucous membranes moist - Routine Neck Exam Present: full ROM - Routine Respiratory Exam Present: CTAB - Routine Cardiovascular Exam Cardiovascular: Present: RRR, S1, S2 - Routine Abdominal Exam Present: soft, nontender - Routine Rectal Exam Patient deferred: digital exam - Routine Extremities Exam Present: nontender - Routine Back/Spine/Pelvis Exam Back/Spine: Present: full ROM - Routine Skin Exam Present: intact - Routine Neurological Exam Present: alert, oriented X3 - Routine Psychiatric Exam Present: normal affect Progress Note: A/P (1) Thrombocytosis Status: Acute Assessment and plan: DATA BASE 07/31: CBC:WBC 6, HGB 11.1, HCT 35.2, PLT 316. CMP: Lytes wnl,glu 123, BUN 25, Human Resources Clerk 0.79. [place] 8.9. LFTs:<0.2/63/18/16. This is a pleasant 70 year-old lady with a history of hypertension, diabetes, and AFib on Xeralto. She was admitted to the hospital towards the end of last year in July, with nausea vomiting diarrhea and shortness of breath. She was hypoxic. She had leukocytosis. She had Thrombocytosis. She was also noted to be Anemic. She was treated for a possible pneumonia. She had an upper endoscopy, which raised concern for possible esophageal and gastric dysmotility. She underwent an evaluation, under the care of GI. She had gastric emptying study and esophageal motility studies. She is to follow up. She was referred here for Thrombocytosis, however the platelet count since August 19, 2018 has been normal. Today's platelets are still normal at 316. She did have Thrombocytosis in the past, most likely on a reactive basis. If it was essential thrombocytosis, it would not have normalized. PLAN: I will continue to monitor her labs over time. If the blood count declines to less than 10 will consider a bone marrow exam. She will return in 6 months for a follow-up visit. She was referred to neurologist in [place], Dr. Sultana. Thank you, CC: Dr. Marla Bray. Dr. Otto Navarro. (2) Anemia Status: Acute Assessment and plan: 2. She has been Anemic. It is normocytic normochromic anemia. Her iron studies from October 04, were normal. She had normal B12 and folate levels. Most likely she has Anemia of Chronic Disease. She has underlying CKD, with her EGFR of 38, in April. Hemoglobin is stable at 11 g. PLAN: Will continue to monitor. She will return for labs in 3 month's time. - Time Spent With Patient Total time spent is greater than 50% in coordination of care (as documented) at patient's floor/unit and/or counseling patient: 25 - 35 minutes
--- NOTE | 2020-07-28 10:30 | MHC.HEMONCMA ---
Pt scheduled for a televisit with provider. History was reviewed prior to call.
== END | disposition home or self-care (01) ==
LOC: HO.ONC 04-28 11:39
PROVIDERS: PCP Internal Medicine; Visit Provider Internal Medicine Medical Oncology
DX: D64.9 Anemia, unspecified (principal); N18.9 Chronic kidney disease, unspecified; Z86.2 Personal history of diseases of the blood and blood-forming organs and certain disorders involving the immune mechanism
CPT/HCPCS: Q3014

== ENCOUNTER 2024-01-08 12:46 | Outpatient (AMB) | payer MEDICARE, MEDICAID, SELFPAY ==
--- NOTE | 2024-01-08 12:47 | A.OFFVIS_ITS ---
Vital Signs 01/08/24 12:48 Height 5 ft 3 in Weight 209 lb 7.026 oz BMI 37.1 BP 116/74 Blood Pressure Location Rt brachial Position Sitting Pulse 72 Pulse Source Pulse Oximeter Intake Visit Reasons: Diabetes Type 2 Intake Note: Patient presents today to re-establish treatment for Type 2 Diabetes Mellitus: Last Diabetic eye exam was on: [facility], 09/03/2023 Last Podiatry exam was on: [facility], 11/21/2023 Most recent HbA1c: 8.9%, 12/03/2023 Random Glucose- 174 mg/dL, Today Drafter Seismograph Required: No Accompanied by: Significant Other Allergies morphine [Morphine] Allergy (Severe, Verified 01/08/24 12:58) ITCHING, hives cefdinir Allergy (Intermediate, Verified 01/08/24 12:58) hives sulfamethoxazole Allergy (Intermediate, Verified 01/08/24 12:58) RASH trimethoprim Allergy (Intermediate, Verified 01/08/24 12:58) RASH duloxetine Adverse Reaction (Severe, Verified 01/08/24 12:58) altered behavior Medication List - Last Reconciled 01/08/24 by Regine Luna MD atenolol 50 mg PO BID 30 days baclofen 10 mg PO TID cetirizine (All Day Allergy (cetirizine)) 10 mg PO DAILY PRN 90 days cholecalciferol (vitamin D3) 50 mcg PO .three times a week 30 days clonazepam 0.5 mg PO BID 30 days clotrimazole-betamethasone 1-0.05 % 1 appl topical DAILY PRN empagliflozin (Jardiance) 25 mg PO DAILY fenofibrate 160 mg PO DAILY fluticasone propionate 50 mcg/actuation 1 spray intranasal DAILY FreeStyle David 14 Day Sensor (flash glucose sensor) As directed NS FreeStyle David 2 Erie (flash glucose scanning reader) As directed NS FreeStyle David 2 Sensor (flash glucose sensor) As directed NS furosemide 20 mg PO DAILY 90 days gabapentin 300 mg PO BID 30 days galcanezumab-gnlm (Emgality Pen) 240 mg (2 mL) subcut ONCE 30 days hydroxychloroquine 200 mg PO BID 90 days Knee brace right hinge knee brace lidocaine 5% 1 patch topical DAILY PRN losartan 25 mg PO DAILY mirabegron ER (Myrbetriq) 50 mg PO DAILY 90 days multivitamin 1 tab PO DAILY nystatin 1 appl topical BID omeprazole 40 mg PO .once a day PRN 30 days rivaroxaban (Xarelto) 20 mg PO QPM 90 days ropinirole 0.25 mg PO BEDTIME 90 days rosuvastatin 40 mg PO BEDTIME 90 days thiamine HCl (vitamin B1) 100 mg PO DAILY 90 days trazodone 100 mg PO BEDTIME PRN 90 days Tresiba FlexTouch U-100 (insulin degludec) 20 units (0.2 mL) subcut DAILY 12 weeks NS Trulicity (dulaglutide) 1.5 mg (0.5 mL) subcut QWEEK NS ubrogepant (Ubrelvy) 50 - 100 mg (0.5 - 1 x 100 mg) PO ONCE PRN 30 days HPI Comments Details: This is a 73-year-old female with diabetes mellitus type 2 on long-term current use of insulin presenting for consultation Medical history: depression, paroxysmal atrial fibrillation, chronic heart failure with preserved ejection fraction, cervical disc disease, h/o CVA, migraines Current medications: Tresiba 18 units (patient taking 20 units), jardiance 25mg daily. she does sometimes increase Tresiba by few units based on evening blood glucose and we discussed not to do this. She previously was on trulicty 3mg-says she has not been on in years. Intolerant of metformin. A1C 12/02/22 8.9 from 7.6 in July Says checks Fasting glucose 110-120 and usually once in the evening-generally 200s. She has a CGM and sensors at home that she says she received in the mail-unsure how they were sent. PCP did not prescribe. Did not bring Erie. Sensor appears to be freestyle Micro/macrovascular: detached retina, cataracts, LE neuropathy, history of CVA, migraines ROS see HPI. PHYSICAL EXAM: GENERAL: Alert and oriented x 3. NAD EYES: EOMI. Anicteric. HENT: Moist mucous membranes. No scleral icterus. No cervical lymphadenopathy. LUNGS: Clear to auscultation bilaterally. CARDIOVASCULAR: RRR, systolic murmur ABDOMEN: Soft, non-tender +bs EXTREMITIES: No edema. Non-tender. SKIN: peripheral vascular changes, palpable PT pulse. NEUROLOGIC: No focal neurological deficits. CN II-XII grossly intact PSYCHIATRIC: Cooperative. Appropriate mood and affect [facility] Medical History Thiamine deficiency Anemia Dehydration Essential hypertension Knee osteomyelits, right Atrial flutter Acute on chronic heart failure with preserved ejection fraction MDD (major depressive disorder), recurrent episode, moderate (HFpEF) heart failure with preserved ejection fraction Mild recurrent major depression Fracture, cervical vertebra Hyperlipidemia LDL goal <70 Post-dural puncture headache PONV (postoperative nausea and vomiting) Positive occult stool blood test [place] Headache Anemia Acute upper GI bleed Diabetic polyneuropathy COVID-19 Hand pain CVA (cerebral vascular accident) Head injury Left shoulder pain Left knee pain Left hip pain Left hand pain Dizziness Diabetic neuropathy Diabetes type 2, uncontrolled Type 2 diabetes mellitus with other diabetic kidney complication Proteinuria Type 2 diabetes mellitus with diabetic polyneuropathy Dyslipidemia Obesity due to excess calories Other and unspecified hyperlipidemia Chronic heart failure with preserved ejection fraction (HFpEF) Anemia Thrombocytosis Pulmonary hypertension Ischemic stroke Paroxysmal atrial fibrillation Atherosclerotic cardiovascular disease Hospital discharge follow-up Thrombus Urge urinary incontinence Iron deficiency anemia Pure hypercholesterolemia Essential hypertension Diabetes mellitus Lumbar degenerative disc disease Surgical History S/P laminectomy S/P cardiac pacemaker procedure S/P insertion of spinal cord stimulator H/O colonoscopy History of Mohs micrographic surgery for skin cancer Hx of cervical spine surgery History of partial hysterectomy Hx of cardiac cath Family History Father Rectal cancer Hypertension Arthritis of knee CVD (cardiovascular disease) Mother Hypertension CVD (cardiovascular disease) Myocardial infarction Diabetes Social History Household Members: Spouse Housing: Apartment Are you a primary care analyst to a significant other at home: No Do you presently have visiting nurse or other home services: Yes Alcohol intake: never Comment: na Patient Tobacco Use Status: Former Tobacco user Tobacco use type: Cigarette e-Cigarette/Vaping Use: Never Used Second Hand Smoke Exposure: No Advance Directives Date on File: 06/09/23 service: No Current occupational status: retired Current occupation: Lt handed Cognitive needs: Yes (scodor/walker) Hearing needs: No Vision needs: Yes (glasses) Physical Exam Vital Signs: Last Vital Signs Pulse 72 01/08/24 12:48 BP 116/74 01/08/24 12:48 BMI result Body Mass Index 37.1 Results Reviewed Results Reviewed: Laboratory Last Values Glucose (Clinic) 173 mg/dL (60-115) H 01/08/24 12:53 Assessment & Plan Assessment & Plan (1) Type 2 diabetes mellitus with hyperglycemia, with long-term current use of insulin: Code(s): E11.65 - Type 2 diabetes mellitus with hyperglycemia; Z79.4 - superintendent [employer] (current) use of insulin Category: Medical Plan: Continue tresiba 20 units Restart trulicity conservatively given lack of glucose readings-start at 1.5 weekly Continue jardiance She will see the clinical staff educator. Will try to send CGM with sensors. (2) Insulin long-term use: Code(s): Z79.4 - [employer] (current) use of insulin Category: Medical Plan: see above (3) Type 2 diabetes mellitus with diabetic polyneuropathy: Code(s): E11.42 - Type 2 diabetes mellitus with diabetic polyneuropathy Category: Medical Qualifiers: Diabetes mellitus custodial insulin use: with continuous churn buttermaker use Qualified Code(s): E11.42 - Type 2 diabetes mellitus with diabetic polyneuropathy; Z79.4 - USP (current) use of insulin Plan: tighten glycemic control (4) Coronary artery disease due to type 2 diabetes mellitus: Code(s): E11.59 - Type 2 diabetes mellitus with other circulatory complications; I25.10 - Atherosclerotic heart disease of [place] coronary artery without angina pectoris Category: Medical Plan: Follows regularly with cardiology. Continues jardiance (5) Diabetes mellitus with circulatory complication: Code(s): E11.59 - Type 2 diabetes mellitus with other circulatory complications Category: Medical Plan: history of PVD, CAD, CVA (6) History of CVA (cerebrovascular accident): Code(s): Z86.73 - Personal history of transient ischemic attack (TIA), and cerebral infarction without residual deficits Category: Medical Plan: LDL goal <70 Medications: New FreeStyle David 14 Day Sensor (flash glucose sensor) As directed 6 ea 3RF NS E11.65 - Type 2 diabetes mellitus with hyperglycemia, Z79.4 - [employer] (current) use of insulin FreeStyle David 2 [place] (flash glucose scanning reader) As directed 1 ea 0RF NS E11.65 - Type 2 diabetes mellitus with hyperglycemia, Z79.4 - [employer] (current) use of insulin Trulicity (dulaglutide) 1.5 mg (0.5 mL) subcut QWEEK 2 mL 3RF NS FreeStyle David 2 Sensor (flash glucose sensor) As directed 6 ea 3RF NS E11.65 - Type 2 diabetes mellitus with hyperglycemia, Z79.4 - USP (current) use of insulin Changed From insulin degludec (Tresiba FlexTouch U-100 insulin) 18 units (0.18 mL) subcut DAILY 30 days 5.4 mL 6RF Hyperglycemia To Tresiba FlexTouch U-100 (insulin degludec) 20 units (0.2 mL) subcut DAILY 12 weeks 18 mL 3RF NS Coding Level of Care Code New Pt Level 5 (41694) Diagnoses Type 2 diabetes mellitus with hyperglycemia, with long-term current use of insulin E11.65; Z79.4 Insulin long-term use Z79.4 Type 2 diabetes mellitus with diabetic polyneuropathy, with long-term current use of insulin E11.42; Z79.4 Diabetes mellitus continuous churn buttermaker insulin use: with continuous churn buttermaker use Coronary artery disease due to type 2 diabetes mellitus E11.59; I25.10 Diabetes mellitus with circulatory complication E11.59 History of CVA (cerebrovascular accident) Z86.73
[2024-01-08 12:48] VITALS: BP 116/74; PULSE 72; BMI 37.1
[2024-01-08 12:59] LABS: Glucose, Whole Blood 173 mg/dL (60-115)
== END 2024-01-08 13:37 | disposition home or self-care (01) ==
PROVIDERS: PCP Internal Medicine; Visit Provider Internal Medicine
DX: E11.65 Type 2 diabetes mellitus with hyperglycemia (principal); Z79.4 Long term (current) use of insulin; E11.42 Type 2 diabetes mellitus with diabetic polyneuropathy; E11.59 Type 2 diabetes mellitus with other circulatory complications; I25.10 Atherosclerotic heart disease of native coronary artery without angina pectoris; Z86.73 Personal history of transient ischemic attack (TIA), and cerebral infarction without residual deficits
CPT/HCPCS: 99214

== ENCOUNTER → 2024-01-08 12:46 | Outpatient (BNVA) | payer MEDICARE, MEDICAID, SELFPAY | PROVIDERS: PCP Internal Medicine; Visit Provider Internal Medicine | DX: E11.65 Type 2 diabetes mellitus with hyperglycemia (principal); E11.42 Type 2 diabetes mellitus with diabetic polyneuropathy; E11.59 Type 2 diabetes mellitus with other circulatory complications; I25.10 Atherosclerotic heart disease of native coronary artery without angina pectoris; I11.0 Hypertensive heart disease with heart failure; I50.32 Chronic diastolic (congestive) heart failure; Z79.4 Long term (current) use of insulin; Z86.73 Personal history of transient ischemic attack (TIA), and cerebral infarction without residual deficits | CPT/HCPCS: 82947; 99212 ==

== ENCOUNTER 2024-01-15 16:08 | Emergency (ER) | payer MEDICARE, MEDICAID, SELFPAY ==
--- NOTE | ~2024-01-15 | CT_ITS ---
EXAMINATION: CT CERVICAL SPINE WITHOUT CONTRAST CLINICAL INFORMATION: Fall. On blood thinners. COMPARISON: CT cervical spine dated 04/26/2023. TECHNIQUE: Noncontrast computed tomography of the cervical spine was performed. This CT examination was performed using dose optimization techniques as appropriate, variously including the following: *Automated exposure control *Adjustment of mA and/or kV according to patient size (this includes techniques or standardized protocols for targeted exams where dose is matched to indication/reason for exam; i.e. extremities or head) *Use of iterative reconstruction technique DLP: 624.81 mGy-cm FINDINGS: There are surgical changes status post posterior decompression from C3 through C6. There is straightening of the cervical lordosis. Vertebral body heights are preserved. There is multilevel degenerative disc disease throughout the entire cervical spine most conspicuous at C5-6, C6-7, C7-T1. The atlantooccipital articulations are intact. The C1-C2 relationship is intact. The dens is intact. Prevertebral soft tissue is normal in appearance. There is calcification of the posterior longitudinal ligament. No acute fracture. No prevertebral soft tissue swelling. The visualized lung apices are clear. There is a stable, partially calcified 1.9 x 1.3 cm low-attenuation lesion within the right lobe of the thyroid gland. CT/CT cervical spine wo IV con IMPRESSION: No acute osseous cervical spine abnormality. Fleischner guidelines were followed. Electronically signed by: Tate Chacko DO 01/15/2024 08:19 PM EDT
--- NOTE | ~2024-01-15 | XR_ITS ---
EXAMINATION: XR BILATERAL HIPS WITH AP PELVIS CLINICAL INFORMATION: Pain COMPARISON: None available. TECHNIQUE: AP view of the pelvis and single views of each hip were obtained. FINDINGS: Degenerative changes of the bilateral hip joints. No acute fracture or dislocation. Pelvic enthesopathy. XR/XR hip BI w PEL1V IMPRESSION: Degenerative changes of the bilateral hip joints. No acute fracture or dislocation. Electronically signed by: Linda Yanes MD 01/15/2024 07:58 PM EDT
--- NOTE | ~2024-01-15 | XR_ITS ---
EXAMINATION: XR LUMBOSACRAL SPINE CLINICAL INFORMATION: Fall. Pain. COMPARISON: Lumbar spine radiographs dated May 20, 2022. TECHNIQUE: Three views of the lumbosacral spine. FINDINGS: Lumbar spinal alignment is anatomic in the sagittal projection. The vertebral bodies demonstrate preserved stature. There is no acute fracture. There is dense vascular calcification. There are cholecystectomy clips. There is a left-sided spinal stimulator device. XR/XR lumbar spine 2-3V IMPRESSION: Limited examination. No gross acute abnormality Electronically signed by: Tate Chacko DO 01/15/2024 08:08 PM EDT
--- NOTE | ~2024-01-15 | CT_ITS ---
EXAMINATION: CT HEAD WITHOUT CONTRAST CLINICAL INFORMATION: Multiple falls. On blood thinners. COMPARISON: CT head dated December 23, 2023. TECHNIQUE: Contiguous axial imaging was performed from the skull base to vertex without intravenous administration of contrast. This CT examination was performed using dose optimization techniques as appropriate, variously including the following: *Automated exposure control *Adjustment of mA and/or kV according to patient size (this includes techniques or standardized protocols for targeted exams where dose is matched to indication/reason for exam; i.e. extremities or head) *Use of iterative reconstruction technique DLP: 1365 mGy-cm FINDINGS: There is no acute intracranial hemorrhage. There is no evidence of acute/subacute cerebral or cerebellar infarction. There is no midline shift or mass effect. There is no extra-axial fluid collection. Ventricles are normal in size. There is mild global cerebral volume loss. There is a linear focus of encephalomalacia within the left external capsule. The orbits are normal in appearance. The calvarium is intact. Mastoid air cells are clear. There is mild to moderate ethmoid air cell mucosal thickening. CT/CT head/brain wo IV con IMPRESSION: No acute intracranial abnormality. Mild global cerebral volume loss. Electronically signed by: Tate Chacko DO 01/15/2024 08:12 PM EDT RP
[2024-01-15 16:18] VITALS: BP 122/52; PULSE 69; RESP 20; O2SAT 96
[2024-01-15 16:23] VITALS: BP 142/87; PULSE 70; O2SAT 96; BMI 34.4
[2024-01-15 16:27] VITALS: TEMP 36.4
--- NOTE | 2024-01-15 17:06 | ECG_ITS ---
Test Reason : fall/weakness Blood Pressure : / mmHG Vent. Rate : 070 BPM Atrial Rate : 070 BPM P-R Int : 198 ms QRS Dur : 112 ms QT Int : 420 ms P-R-T Axes : 099 087 026 degrees QTc Int : 453 ms Atrial-paced rhythm Minimal voltage criteria for LVH, may be normal variant ( Brayan product ) Inferior infarct (cited on or before 10-JUN-2023) Abnormal ECG When compared with ECG of 15-JUL-2023 01:38, No significant change was found Referred By: Claudia Bowens Electronically Signed By:EMILY SILVA
--- NOTE | 2024-01-15 17:28 | PC.NURSE ---
on bed fortune. c spine precautions in place.
[2024-01-15 18:02] LABS: MANUAL DIFF FLAG NO
--- NOTE | 2024-01-15 18:04 | ED.FALL ---
HPI - Fall General Chief Complaint: Fall Stated Complaint: mechanical fall , + head strike, + thinners Time Seen by Provider: 01/15/24 16:17 Source: patient, family and EMS Mode of arrival: ambulatory Limitations: no limitations History of Present Illness ED Provider: Dr. Claudia Bowens HPI Narrative: Patient comes to the emergency room via ambulance after falling at home. Patient states that for years she has had chronic weakness and falls frequently. Patient takes Xarelto. Patient was collared by EMS and brought to the emergency room. Patient complaining of ecchymosis in the scalp, states that this were hurting before this fall, states that she has had multiple falls in the past and they were starting to heal and now they are hurting again. Patient states that her lower back hurts/hips area. Patient denies losing consciousness. Patient states that yesterday she was in the hospital, got a urinalysis test done and a COVID test. UA was negative and COVID was positive. Related Data Home Medications ?Medication ?Instructions ?Recorded ?Confirmed clotrimazole-betamethasone 1 1 appl topical DAILY PRN Itching 07/15/23 12/30/23 %-0.05 % topical cream empagliflozin 25 mg tablet 25 mg PO DAILY 07/15/23 12/30/23 (Jardiance) fenofibrate 160 mg tablet 160 mg PO DAILY 07/15/23 12/30/23 fluticasone propionate 50 1 spray intranasal DAILY 07/15/23 12/30/23 mcg/actuation nasal spray,suspension lidocaine 5 % topical patch 1 patch topical DAILY PRN Pain 07/15/23 12/30/23 multivitamin 1 tab PO DAILY 07/15/23 12/30/23 nystatin 100,000 unit/gram topical 1 appl topical BID 07/15/23 12/30/23 powder baclofen 10 mg tablet 10 mg PO TID 01/08/24 Previous Rx's ?Medication ?Instructions ?Recorded cetirizine 10 mg tablet (All Day 10 mg PO DAILY PRN allergy 08/28/23 Allergy (cetirizine)) symptoms 90 days #90 tabs furosemide 20 mg tablet 20 mg PO DAILY 90 days #90 tabs 09/06/23 losartan 25 mg tablet 25 mg PO DAILY #30 tabs 09/06/23 rosuvastatin 40 mg tablet 40 mg PO BEDTIME 90 days #90 tabs 09/22/23 rivaroxaban 20 mg tablet (Xarelto) 20 mg PO QPM 90 days #90 tabs 10/23/23 thiamine HCl (vitamin B1) 100 mg 100 mg PO DAILY 90 days #90 tabs 10/23/23 tablet atenolol 50 mg tablet 50 mg PO BID 30 days #60 tabs 12/03/23 ropinirole 0.25 mg tablet 0.25 mg PO BEDTIME 90 days #90 tabs 12/03/23 cholecalciferol (vitamin D3) 50 50 mcg PO .three times a week 30 12/04/23 mcg (2,000 unit) tablet days #12 tabs omeprazole 40 mg capsule,delayed 40 mg PO .once a day PRN heartburn 12/04/23 release 30 days #30 caps Knee brace #1 ea 12/11/23 galcanezumab-gnlm 120 mg/mL 240 mg (2 mL) subcut ONCE 30 days 12/18/23 subcutaneous pen injector #2 mL (Emgality Pen) hydroxychloroquine 200 mg tablet 200 mg PO BID 90 days #180 tabs 12/18/23 ubrogepant 100 mg tablet (Ubrelvy) 50 - 100 mg (0.5 - 1 x 100 mg) PO 12/18/23 ONCE PRN migraine headache 30 days #16 tabs clonazepam 0.5 mg tablet 0.5 mg PO BID 30 days #60 tabs 12/30/23 trazodone 100 mg tablet 100 mg PO BEDTIME PRN sleep 90 12/30/23 days #90 tabs mirabegron 50 mg tablet,extended 50 mg PO DAILY 90 days #90 tabs 01/06/24 release 24 hr (Myrbetriq) FreeStyle David 14 Day Sensor #6 ea 01/08/24 (flash glucose sensor) FreeStyle David 2 Sensor (flash #6 ea 01/08/24 glucose sensor) Tresiba FlexTouch U-100 100 20 unit (0.2 mL) subcut DAILY 12 01/08/24 unit/mL (3 mL) subcutaneous pen weeks #18 mL (insulin degludec) Trulicity 1.5 mg/0.5 mL 1.5 mg (0.5 mL) subcut QWEEK #2 mL 01/08/24 subcutaneous pen injector (dulaglutide) gabapentin 300 mg capsule 300 mg PO BID 30 days #60 caps 01/12/24 FreeStyle David 2 [place] (flash #1 ea 01/14/24 glucose scanning reader) knee ply wrap short op lg #1 ea 01/14/24 nirmatrelvir 300 mg (150 mg 3 ea PO PER PKG DIR 5 days #30 ea 01/15/24 x2)-ritonavir 100 mg tablet,dose pack (Paxlovid) Allergies Allergy/AdvReac Type Severity Reaction Status Date / Time morphine [Morphine] Allergy Severe ITCHING, Verified 01/15/24 16:26 hives cefdinir Allergy Intermediate hives Verified 01/15/24 16:26 sulfamethoxazole Allergy Intermediate RASH Verified 01/15/24 16:26 trimethoprim Allergy Intermediate RASH Verified 01/15/24 16:26 duloxetine AdvReac Severe altered Verified 01/15/24 16:26 behavior Review of Systems Review of Systems: Constitutional : No Weight loss, No Fever, No Chills, No Night Sweats, No Fatigue, No Malaise ENT/Mouth : Complaining of chronic neck pain, No Hearing loss, No Ear Pain, No Nasal Congestion, No Sinus Pain, No Hoarseness, No sore throat, No Rhinorrhea, No Swallowing Difficulty Eyes: No Eye Pain, No Swelling, No Redness, No Foreign Body, No Discharge, No Vision Changes Cardiovascular : No Chest Pain, No SOB, No Dyspnea on Exertion, No Orthopnea, No Edema, No Palpitations Respiratory : No Cough, No Sputum, No Wheezing, No Smoke Exposure, No Dyspnea Gastrointestinal : No Nausea, No Vomiting, No Diarrhea, No Constipation, No abdominal Pain, No Hematochezia, No Melena Genitourinary : no irregular bleeding, No Dysuria, No Urinary Frequency, No Hematuria, No Urinary Incontinence, No Urgency, No Flank Pain, No Urinary Flow Changes, No Hesitancy Musculoskeletal : Complaining of bilateral hip pain and lower back pain, No Myalgias, No Joint Swelling Skin : Complaining of new and old ecchymosis in the scalp, No Skin Lesions, No rash Neuro : No Weakness, No Numbness, No Paresthesias, No Loss of Consciousness, No Dizziness, No Headache Psych : No Anxiety/Panic, No Depression, No SI/HI/AH/VH, No Social Issues, Heme/Lymph: No Bruising, No Bleeding,No Lymphadenopathy Endocrine : No Polyuria, No Polydipsia, No Temperature Intolerance [facility] Past Medical History Medical History Thiamine deficiency Anemia Dehydration Essential hypertension Knee osteomyelits, right Atrial flutter Acute on chronic heart failure with preserved ejection fraction MDD (major depressive disorder), recurrent episode, moderate (HFpEF) heart failure with preserved ejection fraction Mild recurrent major depression Fracture, cervical vertebra Hyperlipidemia LDL goal <70 Post-dural puncture headache PONV (postoperative nausea and vomiting) Positive occult stool blood test [place] Headache Anemia Acute upper GI bleed Diabetic polyneuropathy COVID-19 Hand pain CVA (cerebral vascular accident) Head injury Left shoulder pain Left knee pain Left hip pain Left hand pain Dizziness Diabetic neuropathy Diabetes type 2, uncontrolled Type 2 diabetes mellitus with other diabetic kidney complication Proteinuria Type 2 diabetes mellitus with diabetic polyneuropathy Dyslipidemia Obesity due to excess calories Other and unspecified hyperlipidemia Chronic heart failure with preserved ejection fraction (HFpEF) Anemia Thrombocytosis Pulmonary hypertension Ischemic stroke Paroxysmal atrial fibrillation Atherosclerotic cardiovascular disease Hospital discharge follow-up Thrombus Urge urinary incontinence Iron deficiency anemia Pure hypercholesterolemia Essential hypertension Diabetes mellitus Lumbar degenerative disc disease Surgical History S/P laminectomy S/P cardiac pacemaker procedure S/P insertion of spinal cord stimulator H/O colonoscopy History of Mohs micrographic surgery for skin cancer Hx of cervical spine surgery History of partial hysterectomy Hx of cardiac cath Family History Family History Father Rectal cancer Hypertension Arthritis of knee CVD (cardiovascular disease) Mother Hypertension CVD (cardiovascular disease) Myocardial infarction Diabetes Social History Social History Household Members: Spouse Housing: Apartment Are you a primary childcare center director to a significant other at home: No Do you presently have visiting nurse or other home services: Yes Alcohol intake: never Comment: na Patient Tobacco Use Status: Former Tobacco user Tobacco use type: Cigarette Smoked in Last 30 Days: No e-Cigarette/Vaping Use: Never Used Second Hand Smoke Exposure: No Advance Directives: Yes Advance Directives on File: Yes Advance Directives Date on File: 12/04/23 service: No Current occupational status: retired Current occupation: Lt handed Cognitive needs: Yes (scodor/walker) Hearing needs: No Vision needs: Yes (glasses) Physical Exam Vital Signs: Vital Signs: Last Vital Signs Temp 98.3 F 01/15/24 19:48 Pulse 72 01/15/24 19:48 Resp 16 01/15/24 19:48 BP 153/73 H 01/15/24 19:48 Pulse Ox 97 01/15/24 19:48 O2 Del Method Room Air 01/15/24 19:48 BMI result Body Mass Index 34.4 Const: Other: Appearance: Alert. Oriented X3. No acute distress. Eyes: Pupils equal, round and reactive to light. ENT: Pharynx normal. Neck: Patient on C-spine precautions, no palpable step-offs, no C-spine tenderness CVS: Normal heart rate and rhythm. Pulses normal. Normal S1 and S2 Respiratory: No respiratory distress. Breath sounds normal. No Wheezing. No rales Abdomen: Soft and nontender. No rigidity. No distention. Skin: Skin warm and dry. Normal skin color. Normal skin turgor. Extremities: No lower extremity edema. No Lacerations. No Rash. Chronically patient is unable to lift her right leg. No pain on right and left hip flexion Neuro: Oriented X 3. No motor deficit. No sensory deficit. Moving all extremities. No slurred speech. CN 2 through 12 grossly intact Psych: calm, cooperative, normal affect Medications Administered Discontinued Medications Generic Name Dose Route Start Last Admin Trade Name Freq PRN Reason Stop Dose Admin Oxycodone HCl 5 mg 01/15/24 19:00 01/15/24 19:19 Oxycodone Hcl Immed Release 5 Mg Tablet PO 01/15/24 19:01 5 mg ONCE ONE Administration Medical Decision Making Medical Decision Making [facility] Narrative: -my interpretation of labs: Normal hematology, normal chemistry, normal LFTs, BNP a little bit elevated but no signs of CHF. Urinalysis negative for UTI -my interpretation head CT and cervical spine CT no obvious fracture or abnormality, normal alignment. -I discussed with the patient and her if they need any services at home, both declined, they say that they have enough services currently. Patient states that she feels well to go home. Differential Diagnosis Differential Diagnoses: The differential diagnosis associated with the presentation includes (Intracranial bleed, cervical spine injury, hip fracture, contusions, concussion) Admission/Observation Consideration of admission/observation: Escalation of care including admission/observation considered (Given patient's past medical history and mechanism of injury, observation was considered) Lab Data MDM Lab Attestation statement: I reviewed the patient's lab results. 01/15/24 17:55 01/15/24 17:55 Labs: Lab Results 01/15/24 01/15/24 Range/Units 17:55 17:56 WBC 9.5 (4.8-10.8) X10*3/uL RBC 4.45 (4.20-5.50) X10*6/uL Hgb 13.3 (12.0-16.0) g/dl Hct 41.3 (37.0-47.0) % MCV 92.8 (80.0-98.0) fL MCH 29.9 (27.0-33.0) pg MCHC 32.2 (31.0-35.0) g/dl RDW 14.4 (11.0-16.0) % Plt Count 373 D (160-400) X10*3/uL MPV 8.6 L (9.4-12.3) fL Immature Gran % (Auto) 0.6 H (0.0-0.4) % Neut % (Auto) 72.6 (45-73) % Lymph % (Auto) 17.7 L (20-40) % [place] % (Auto) 7.5 (2-11) % Eos % (Auto) 1.2 (0-4) % Baso % (Auto) 0.4 (0-2) % Lymph # (Auto) 1.7 (1.2-4.9) X10*3/uL [place] # (Auto) 0.7 (0.1-1.2) X10*3/uL Eos # (Auto) 0.1 (0.0-0.4) X10*3/uL Baso # (Auto) 0.0 (0.0-0.2) X10*3/uL Abs Immat Gran (auto) 0.06 H (0.00-0.03) X10*3/uL Absolute Neuts (auto) 6.9 (2.0-8.3) x10*3/uL Absolute Nucleated RBC 0.000 (0.0-0.012) X10*3/uL Nucleated RBC % (auto) 0.0 (0.0-0.2) /100WBC Sodium 138 (135-145) mmol/L Potassium 4.5 (3.3-5.1) mmol/L Chloride 98 (96-108) mmol/L Carbon Dioxide 31 H (22-29) mmol/L Anion Gap 14 (12-20) BUN 37 H (9-16) mg/dL Creatinine 1.11 (0.5-1.4) mg/dL Estim Creat Clear Calc 51.3 Estimated GFR 48 Random Glucose 178 H (60-115) mg/dL Calcium 10.0 (8.4-10.2) mg/dL Magnesium 2.3 (1.6-2.6) mg/dL Total Bilirubin 0.3 (0.0-1.0) mg/dL Direct Bilirubin 0.1 (0.0-0.5) mg/dL AST 21 (5-31) U/L ALT 16 (0-31) U/L Alkaline Phosphatase 78 (39-117) U/L Troponin I High Sens 13.8 (<3.5-17.0) ng/L B-Natriuretic Peptide 168 H (<100) pg/mL Total Protein 7.2 (6.5-8.0) g/dL Albumin 3.8 (3.5-5.0) g/dL Urine Color Yellow Urine Appearance Clear Urine pH 5.0 (5.0-9.0) Ur Specific [place] 1.010 (1.005-1.025) Urine Protein Trace (Neg-Trace) mg/dL Urine Glucose (UA) >=1000 H (Negative) mg/dL Urine Ketones Negative (Negative) mg/dL Urine Blood Negative (Negative) Urine Nitrite Negative (Negative) Ur Leukocyte Esterase Negative (Negative) Urine RBC 0-2 (0-2) /HPF Urine WBC 0-5 (0-5) /HPF Ur Squamous Epith Cells 0-2 (0-2) /HPF Urine Bacteria None Seen (None Seen) Hyaline Casts 0-2 (0-2) /LPF Urine Opiates Screen Not Detected (Not Detect) Ur Buprenorphine Scrn Not Detected (Not Detect) ng/mL Ur Oxycodone Screen Not Detected (Not Detect) ng/mL Urine Methadone Screen Not Detected (Not Detect) ng/mL Urine Fentanyl Screen Not Detected (Not Detect) Ur Barbiturates Screen Not Detected (Not Detect) Ur Phencyclidine Scrn Not Detected (Not Detect) Ur Amphetamines Screen Not Detected (Not Detect) U Benzodiazepines Scrn Not Detected (Not Detect) Urine Cocaine Screen Not Detected (Not Detect) U Marijuana (THC) Screen Not Detected (Not Detect) Ethyl Alcohol < 10 mg/dL COVID-19 ([facility]) Positive A (Negative) COVID-19 Clin Com See Note Independent Interpretation I performed an independent interpretation of an: Plain X-Ray and CT Scan Radiology Impression Discussion of test interpretation with radiology: I have reviewed the radiologist's reading. Radiologist Impression: Lumbar spinal alignment is anatomic in the sagittal projection. The vertebral bodies demonstrate preserved stature. There is no acute fracture. There is dense vascular calcification. There are cholecystectomy clips. There is a left-sided spinal stimulator device. XR/XR lumbar spine 2-3V IMPRESSION: Limited examination. No gross acute abnormality There is no acute intracranial hemorrhage. There is no evidence of acute/subacute cerebral or cerebellar infarction. There is no midline shift or mass effect. There is no extra-axial fluid collection. Ventricles are normal in size. There is mild global cerebral volume loss. There is a linear focus of encephalomalacia within the left external capsule. The orbits are normal in appearance. The calvarium is intact. Mastoid air cells are clear. There is mild to moderate ethmoid air cell mucosal thickening. There are surgical changes status post posterior decompression from C3 through C6. There is straightening of the cervical lordosis. Vertebral body heights are preserved. There is multilevel degenerative disc disease throughout the entire cervical spine most conspicuous at C5-6, C6-7, C7-T1. The atlantooccipital articulations are intact. The C1-C2 relationship is intact. The dens is intact. Prevertebral soft tissue is normal in appearance. There is calcification of the posterior longitudinal ligament. No acute fracture. No prevertebral soft tissue swelling. The visualized lung apices are clear. There is a stable, partially calcified 1.9 x 1.3 cm low-attenuation lesion within the right lobe of the thyroid gland. Degenerative changes of the bilateral hip joints. No acute fracture or dislocation. Independent Historian Clinical information obtained from an independent historian. History obtained from or confirmed by: Spouse Critical Care Time Critical Care Time Critical Care Time: Yes Total Critical Care Time: 35 Attestation: I have personally provided critical care time. Time includes review of lab data, radiology results, discussion with consultants, and monitoring for potential decompensation. Intervention performed as documented. Discharge Plan Discharge Clinical Impression: Fall, Multiple contusions Patient Disposition: Home, Self-Care Instructions: Fall Prevention (ED) Additional Instructions: Please follow-up with your primary care physician tomorrow. If you have any worsening or new symptoms, please return to the emergency room or call 911 Prescriptions: No Action losartan 25 mg tablet 25 mg PO DAILY Qty: 30 0RF furosemide 20 mg tablet 20 mg PO DAILY 90 Days Qty: 90 1RF rosuvastatin 40 mg tablet 40 mg PO BEDTIME 90 Days Qty: 90 3RF Xarelto 20 mg tablet 20 mg PO QPM 90 Days Qty: 90 1RF thiamine HCl (vitamin B1) 100 mg tablet 100 mg PO DAILY 90 Days Qty: 90 1RF cholecalciferol (vitamin D3) 50 mcg (2,000 unit) tablet 50 mcg PO .three times a week 30 Days Qty: 12 6RF omeprazole 40 mg capsule,delayed release(DR/EC) 40 mg PO .once a day PRN (Reason: heartburn) 30 Days Qty: 30 0RF (DME) Knee brace Misc See Rx Instructions .Route Qty: 1 0RF Rx Instructions: right hinge knee brace hydroxychloroquine 200 mg tablet 200 mg PO BID 90 Days Qty: 180 0RF Myrbetriq 50 mg tablet extended release 24 hr 50 mg PO DAILY 90 Days Qty: 90 0RF gabapentin 300 mg capsule 300 mg PO BID 30 Days Qty: 60 0RF (DME) FreeStyle David 2 [place] Misc See Rx Instructions .Route Qty: 1 0RF Rx Instructions: continuous (DME) knee ply wrap short op lg See Rx Instructions .Route .MEDSUPPLY Qty: 1 0RF Rx Instructions: As directed Paxlovid 300 mg (150 mg x 2)-100 mg tablets,dose pack 3 ea PO PER PKG DIR 5 Days Qty: 30 0RF clotrimazole-betamethasone 1-0.05 % cream 1 appl topical DAILY PRN (Reason: Itching) nystatin 100,000 unit/gram powder 1 appl topical BID fluticasone propionate 50 mcg/actuation spray,suspension 1 spray intranasal DAILY fenofibrate 160 mg tablet 160 mg PO DAILY Jardiance 25 mg tablet 25 mg PO DAILY multivitamin Tablet 1 tab PO DAILY lidocaine 5 % adhesive patch,medicated 1 patch topical DAILY PRN (Reason: Pain) cetirizine [All Day Allergy (cetirizine)] 10 mg tablet 10 mg PO DAILY PRN (Reason: allergy symptoms) 90 Days Qty: 90 1RF trazodone 100 mg tablet 100 mg PO BEDTIME PRN (Reason: sleep) 90 Days Qty: 90 1RF clonazepam 0.5 mg tablet 0.5 mg PO BID 30 Days Qty: 60 0RF atenolol 50 mg tablet 50 mg PO BID 30 Days Qty: 60 6RF ropinirole 0.25 mg tablet 0.25 mg PO BEDTIME 90 Days Qty: 90 1RF Emgality Pen 120 mg/mL pen injector 240 mg subcut ONCE 30 Days Qty: 2 0RF Rx Instructions: Loading dose: 120 mg subcu injection x2 in alternate sites (total 240 mg). To be followed by maintenance dose of 120 mg subcu q.month. Ubrelvy 100 mg tablet 50 - 100 mg PO ONCE PRN (Reason: migraine headache) 30 Days Qty: 16 3RF Rx Instructions: take at onset of migraine, may repeat in 2hrs (may take w/ Tylenol) baclofen 10 mg tablet 10 mg PO TID insulin degludec [Tresiba FlexTouch U-100] 100 unit/mL (3 mL) insulin pen 20 unit subcut DAILY 84 Days Qty: 18 3RF Trulicity 1.5 mg/0.5 mL pen injector 1.5 mg subcut QWEEK Qty: 2 3RF (DME) FreeStyle David 14 Day Sensor Kit See Rx Instructions .Route Qty: 6 3RF Rx Instructions: As directed (DME) FreeStyle David 2 Sensor Kit See Rx Instructions .Route Qty: 6 3RF Rx Instructions: As directed Print Language: Uzbek
[2024-01-15 18:06] LABS: Basophils Percent Auto 0.4 % (0-2); Eosinophils Absolute Auto 0.1 X10*3/uL (0.0-0.4); Eosinophils Percent Auto 1.2 % (0-4); Hematocrit 41.3 % (37.0-47.0); Hemoglobin 13.3 g/dl (12.0-16.0); Imm Gran Abs Auto 0.06 X10*3/uL (0.00-0.03); Imm Gran Pct Auto 0.6 % (0.0-0.4); Lymphocytes Absolute Auto 1.7 X10*3/uL (1.2-4.9); Lymphocytes Percent Auto 17.7 % (20-40); Mean Corpuscular HGB Conc 32.2 g/dl (31.0-35.0); Mean Corpuscular Hemoglobin 29.9 pg (27.0-33.0); Mean Corpuscular Volume 92.8 fL (80.0-98.0); Mean Platelet Volume 8.6 fL (9.4-12.3); Monocytes Absolute Auto 0.7 X10*3/uL (0.1-1.2); Monocytes Percent Auto 7.5 % (2-11); Neutrophils Absolute Auto 6.9 x10*3/uL (2.0-8.3); Neutrophils Percent Auto 72.6 % (45-73); Platelet Count 373 X10*3/uL (160-400); Red Blood Count 4.45 X10*6/uL (4.20-5.50); Red Cell Distribution Width 14.4 % (11.0-16.0); White Blood Count 9.5 X10*3/uL (4.8-10.8)
[2024-01-15 18:12] LABS: Appearance Urine Clear; Color Urine Yellow; Glucose Urine UA >=1000 mg/dL (Negative); Leukocyte Esterase Urine Negative (Negative); Nitrite Urine Negative (Negative); UMIC TRIGGER UACC YES; Urine Blood Negative (Negative); Urine Ketones Negative (Negative); Urine Protein Trace mg/dL (Neg-Trace)
[2024-01-15 18:16] LABS: COVID-19 Test Positive (Negative); IDNOW Serial# 58CA691E
[2024-01-15 18:17] LABS: Bacteria Urine None Seen (None Seen); Hyaline Casts Urine 0-2 /LPF (0-2); RBC Urine 0-2 /HPF (0-2); Squamous Epithelial Cell Urine 0-2 /HPF (0-2); WBC Urine 0-5 /HPF (0-5)
[2024-01-15 18:27] LABS: Amphetamine Screen Urine Not Detected (Not Detect); Barbiturates, Urine Not Detected (Not Detect); Benzodiazepines Screen Urine Not Detected (Not Detect); Buprenorphine Scr Not Detected (Not Detect); Cannabinoid Screen Urine Not Detected (Not Detect); Cocaine Screen Urine Not Detected (Not Detect); Fentanyl, urine Not Detected (Not Detect); Methadone Screen, Urine Not Detected (Not Detect); Opiate Screen Urine Not Detected (Not Detect); Oxycodone Screen Urine Not Detected (Not Detect); Phencyclidine Screen Urine Not Detected (Not Detect)
[2024-01-15 18:27] LABS: Ethanol < 10 mg/dL
[2024-01-15 18:29] LABS: Alanine Aminotransferase 16 U/L (0-31); Albumin Level 3.8 g/dL (3.5-5.0); Alkaline Phosphatase 78 U/L (39-117); Anion Gap 14 (12-20); Aspartate Amino Transferase 21 U/L (5-31); Bilirubin Direct 0.1 mg/dL (0.0-0.5); Bilirubin Total 0.3 mg/dL (0.0-1.0); Blood Urea Nitrogen 37 mg/dL (9-16); Carbon Dioxide 31 mmol/L (22-29); Chloride 98 mmol/L (96-108); Creatinine Clr Calc Pharmacy 51.3; Estimated Glomerular Filt Rate 48; Glucose Random 178 mg/dL (60-115); Magnesium 2.3 mg/dL (1.6-2.6); Potassium 4.5 mmol/L (3.3-5.1); Sodium 138 mmol/L (135-145); Total Protein 7.2 g/dL (6.5-8.0)
[2024-01-15 18:32] LABS: B Type Natriuretic Peptide 168 pg/mL (<100)
[2024-01-15 18:33] LABS: Troponin-I High Sensitivity 13.8 ng/L (<3.5-17.0)
--- NOTE | 2024-01-15 19:13 | PC.NURSE ---
assumed care of pt at 1900 , report received from Libra RN
[2024-01-15] MEDS: oxyCODONE HCl Immed Release 5 MG TABLET PO (19:19)
--- NOTE | 2024-01-15 19:46 | MHC.EDTECH ---
Patient repositioned and bed pad changed
[2024-01-15 19:48] VITALS: BP 153/73; PULSE 72; RESP 16; TEMP 36.8; O2SAT 97
[2024-01-15 21:49] VITALS: BP 153/73; PULSE 72; RESP 16; TEMP 36.8; O2SAT 97
== END 2024-01-15 21:49 | disposition home or self-care (01) ==
PROVIDERS: Emergency Provider Emergency Medicine
DX: U07.1 COVID-19 (principal); S00.03XA Contusion of scalp, initial encounter; R29.6 Repeated falls; Z91.81 History of falling; R53.1 Weakness; E11.9 Type 2 diabetes mellitus without complications; I10 Essential (primary) hypertension; E78.5 Hyperlipidemia, unspecified; I48.0 Paroxysmal atrial fibrillation; Z87.891 Personal history of nicotine dependence; Z79.85 Long-term (current) use of injectable non-insulin antidiabetic drugs; Z79.01 Long term (current) use of anticoagulants; Z79.899 Other long term (current) drug therapy; W19.XXXA Unspecified fall, initial encounter; Y93.9 Activity, unspecified; Y92.9 Unspecified place or not applicable; Y99.9 Unspecified external cause status
CPT/HCPCS: 36415; 70450; 72100; 72125; 73521; 80048; 80076; 80307; 81001; 83735; 83880; 84484; 85025; 87635; 93005; 99284; 99285

== ENCOUNTER 2024-01-19 05:08 | Inpatient (IN) | payer MEDICARE, MEDICAID, SELFPAY ==
[2024-01-19] VITALS (11 sets, daily range): BP systolic 129–184; BP diastolic 58–92; PULSE 66–92; RESP 18–23; TEMP 36.5–36.9; O2SAT 87–98; BMI 29.4
--- NOTE | 2024-01-19 | ECG_ITS ---
Test Reason : WEAKNESS Blood Pressure : / mmHG Vent. Rate : 070 BPM Atrial Rate : 070 BPM P-R Int : 262 ms QRS Dur : 106 ms QT Int : 416 ms P-R-T Axes : 076 -84 026 degrees QTc Int : 449 ms Atrial-paced rhythm Left axis deviation Abnormal ECG When compared with ECG of 15-JAN-2024 17:29, QRS axis Shifted left Referred By: Generic ED Physician Electronically Signed By:EMILY SILVA
--- NOTE | ~2024-01-19 | XR_ITS ---
EXAMINATION: XR CHEST CLINICAL INFORMATION: cough COMPARISON: 07/15/2023 TECHNIQUE: Frontal view of the chest was obtained. FINDINGS: Again seen is a left chest wall bipolar pacemaker along with spinal leads. Previously seen patchy density at the lung bases, left greater than right has nearly resolved. At this time, no significant abnormality is noted involving the heart, lungs, mediastinum, bony thorax or soft tissues. XR/XR chest 1V IMPRESSION: No acute intrathoracic disease. Electronically signed by: Maximiliano Graham MD 01/19/2024 07:59 AM EDT
--- NOTE | ~2024-01-19 | CT_ITS ---
EXAMINATION: CT HEAD WITHOUT CONTRAST CLINICAL INFORMATION: Head injury with no loss of consciousness 5 days ago. Left peripheral blind spot. COMPARISON: CT scan of the head dated 01/15/2024 and 12/25/2023. TECHNIQUE: Contiguous axial imaging was performed from the skull base to vertex without intravenous administration of contrast. This CT examination was performed using dose optimization techniques as appropriate, variously including the following: *Automated exposure control *Adjustment of mA and/or kV according to patient size (this includes techniques or standardized protocols for targeted exams where dose is matched to indication/reason for exam; i.e. extremities or head) *Use of iterative reconstruction technique DLP: 731 mGy-cm FINDINGS: There is no evidence of acute intracranial hemorrhage or territorial infarction. No abnormal mass-effect or midline shift is seen. [place] to white matter differentiation is well preserved. No extra-axial fluid collections are identified. The ventricles and sulci are mildly enlarged. There is mild periventricular and deep white matter low-attenuation seen, consistent with ischemic small vessel disease.. Hyperostosis frontalis interna is noted. A left scleral buckle is noted. The soft tissues are normal. There is partial opacification of several of the ethmoid air cells. Included portions of the remainder of the paranasal sinuses are aerated. The mastoid air cells are well-aerated. CT/CT head/brain wo IV con IMPRESSION: 1. No acute intracranial pathology. 2. Findings of mild ischemic small vessel disease. 3. Mild ethmoid sinus disease. Electronically signed by: Kamille Goodwin MD 01/19/2024 03:38 PM EDT
--- NOTE | 2024-01-19 05:49 | ED_ITS ---
HPI - Weakness General Chief complaint: Weakness Stated complaint: Gen. Malaise 3x weeks, covid + Time Seen by Provider: 01/19/24 05:36 Source: patient and EMS Mode of arrival: EMS Limitations: no limitations History of Present Illness ED Provider: Aaliyah MICHEL HPI Narrative: 73-year-old female past medical history significant for CVA, diabetes, migraine, thiamine deficiency, nonrheumatic aortic stenosis, paroxysmal AFib, heart failure, pacemaker in place, urge incontinence, recently diagnosed with COVID-19 last Friday presenting with fatigue, malaise, myalgias, shortness of breath, failure to thrive ongoing since Friday. Patient reports over the past 2 days she has been having a difficult time getting up and doing her activities of daily living, she is having difficulties with ambulation secondary to shortness of breath and fatigue, she also states she feels swollen. She just does not feel herself. Denies fevers, chills, chest pain, headache, vision changes, dizziness, nausea, vomiting, abdominal pain, diarrhea Related Data Home Medications ?Medication ?Instructions ?Recorded ?Confirmed clotrimazole-betamethasone 1 1 appl topical DAILY PRN Itching 07/15/23 01/19/24 %-0.05 % topical cream empagliflozin 25 mg tablet 25 mg PO DAILY 07/15/23 01/19/24 (Jardiance) fenofibrate 160 mg tablet 160 mg PO DAILY 07/15/23 01/19/24 fluticasone propionate 50 1 spray intranasal DAILY 07/15/23 01/19/24 mcg/actuation nasal spray,suspension lidocaine 5 % topical patch 1 patch topical DAILY PRN Pain 07/15/23 01/19/24 multivitamin 1 tab PO DAILY 07/15/23 01/19/24 baclofen 10 mg tablet 10 mg PO TID PRN muscle spasms 01/08/24 01/19/24 acetaminophen 325 mg tablet 650 mg PO BID PRN Pain 01/19/24 01/19/24 cholecalciferol (vitamin D3) 50 50 mcg PO MOWEFR 01/19/24 01/19/24 mcg (2,000 unit) tablet clonazepam 0.5 mg tablet 0.5 mg PO BID 01/19/24 01/19/24 insulin degludec 100 unit/mL (3 20 unit subcut DAILY 01/19/24 01/19/24 mL) subcutaneous pen (Tresiba FlexTouch U-100 insulin) meloxicam 15 mg tablet 15 mg PO DAILY PRN Pain 01/19/24 01/19/24 mupirocin 2 % topical ointment 1 appl topical DAILY PRN affected 01/19/24 01/19/24 area nirmatrelvir 300 mg (150 mg ea PO 01/19/24 x2)-ritonavir 100 mg tablet,dose pack (Paxlovid) nystatin 100,000 unit/gram topical 1 appl topical BID PRN Rash 01/19/24 01/19/24 cream omeprazole 40 mg capsule,delayed 40 mg PO DAILY@0630 01/19/24 01/19/24 release rivaroxaban 20 mg tablet (Xarelto) 20 mg PO DAILY@1700 01/19/24 01/19/24 ropinirole 0.5 mg tablet 0.5 mg PO BEDTIME 01/19/24 01/19/24 rosuvastatin 40 mg tablet 40 mg PO BEDTIME 01/19/24 01/19/24 venlafaxine 37.5 mg 37.5 mg PO BEDTIME 01/19/24 01/19/24 capsule,extended release 24 hr Previous Rx's ?Medication ?Instructions ?Recorded cetirizine 10 mg tablet (All Day 10 mg PO DAILY PRN allergy 08/28/23 Allergy (cetirizine)) symptoms 90 days #90 tabs furosemide 20 mg tablet 20 mg PO DAILY 90 days #90 tabs 09/06/23 losartan 25 mg tablet 25 mg PO DAILY #30 tabs 09/06/23 thiamine HCl (vitamin B1) 100 mg 100 mg PO DAILY 90 days #90 tabs 10/23/23 tablet atenolol 50 mg tablet 50 mg PO BID 30 days #60 tabs 12/03/23 Knee brace #1 ea 12/11/23 hydroxychloroquine 200 mg tablet 200 mg PO BID 90 days #180 tabs 12/18/23 ubrogepant 100 mg tablet (Ubrelvy) 50 - 100 mg (0.5 - 1 x 100 mg) PO 12/18/23 ONCE PRN migraine headache 30 days #16 tabs trazodone 100 mg tablet 100 mg PO BEDTIME PRN sleep 90 12/30/23 days #90 tabs mirabegron 50 mg tablet,extended 50 mg PO DAILY 90 days #90 tabs 01/06/24 release 24 hr (Myrbetriq) FreeStyle David 14 Day Sensor #6 ea 01/08/24 (flash glucose sensor) Trulicity 1.5 mg/0.5 mL 1.5 mg (0.5 mL) subcut QWEEK #2 mL 01/08/24 subcutaneous pen injector (dulaglutide) gabapentin 300 mg capsule 300 mg PO BID 30 days #60 caps 01/12/24 FreeStyle David 2 [place] (flash #1 ea 01/14/24 glucose scanning reader) knee ply wrap short op lg #1 ea 01/14/24 FreeStyle David 2 Sensor (flash #6 ea 01/16/24 glucose sensor) erenumab-aooe 140 mg/mL 140 mg subcut ONCE 30 days #1 mL 01/16/24 subcutaneous auto-injector (Aimovig Autoinjector) Allergies Allergy/AdvReac Type Severity Reaction Status Date / Time morphine [Morphine] Allergy Severe ITCHING, Verified 01/19/24 05:23 hives cefdinir Allergy Intermediate hives Verified 01/19/24 05:23 sulfamethoxazole Allergy Intermediate RASH Verified 01/19/24 05:23 trimethoprim Allergy Intermediate RASH Verified 01/19/24 05:23 duloxetine AdvReac Severe altered Verified 01/19/24 05:23 behavior Review of Systems 2 Review of Systems: Yes all other systems are reviewed and are negative PMFSH Past Medical History Attestation statement: The following information was validated with the patient. Source: old records reviewed and nursing notes reviewed Medical History Thiamine deficiency Anemia Dehydration Essential hypertension Knee osteomyelits, right Atrial flutter Acute on chronic heart failure with preserved ejection fraction MDD (major depressive disorder), recurrent episode, moderate (HFpEF) heart failure with preserved ejection fraction Mild recurrent major depression Fracture, cervical vertebra Hyperlipidemia LDL goal <70 Post-dural puncture headache PONV (postoperative nausea and vomiting) Positive occult stool blood test [place] Headache Anemia Acute upper GI bleed Diabetic polyneuropathy COVID-19 Hand pain CVA (cerebral vascular accident) Head injury Left shoulder pain Left knee pain Left hip pain Left hand pain Dizziness Diabetic neuropathy Diabetes type 2, uncontrolled Type 2 diabetes mellitus with other diabetic kidney complication Proteinuria Type 2 diabetes mellitus with diabetic polyneuropathy Dyslipidemia Obesity due to excess calories Other and unspecified hyperlipidemia Chronic heart failure with preserved ejection fraction (HFpEF) Anemia Thrombocytosis Pulmonary hypertension Ischemic stroke Paroxysmal atrial fibrillation Atherosclerotic cardiovascular disease Hospital discharge follow-up Thrombus Urge urinary incontinence Iron deficiency anemia Pure hypercholesterolemia Essential hypertension Diabetes mellitus Lumbar degenerative disc disease Surgical History S/P laminectomy S/P cardiac pacemaker procedure S/P insertion of spinal cord stimulator H/O colonoscopy History of Mohs micrographic surgery for skin cancer Hx of cervical spine surgery History of partial hysterectomy Hx of cardiac cath Family History Family History Father Rectal cancer Hypertension Arthritis of knee CVD (cardiovascular disease) Mother Hypertension CVD (cardiovascular disease) Myocardial infarction Diabetes Social History Social History Household Members: Spouse Housing: Apartment Are you a primary resident care manager to a significant other at home: No Do you presently have visiting nurse or other home services: Yes Alcohol intake: never Comment: na Patient Tobacco Use Status: Former Tobacco user Tobacco use type: Cigarette Smoked in Last 30 Days: No e-Cigarette/Vaping Use: Never Used Second Hand Smoke Exposure: No Use of substances other than those prescribed or required for medical reasons: No Advance Directives: Yes Advance Directives on File: Yes Advance Directives Date on File: 12/04/23 service: No Current occupational status: retired Current occupation: Lt handed Cognitive needs: Yes (scodor/walker) Hearing needs: No Vision needs: Yes (glasses) Physical Exam 2 Vital Signs: Vital Signs: Last Vital Signs Temp 97.7 F 01/19/24 07:31 Pulse 69 01/19/24 07:29 Resp 18 01/19/24 07:29 BP 129/58 L 01/19/24 07:29 Pulse Ox 95 01/19/24 07:29 O2 Del Method Room Air 01/19/24 07:29 BMI result Body Mass Index 29.4 vss Appearance: Alert.? Oriented X3.? No acute distress.? Head: Normocephalic, atraumatic, no step-offs or deformities Eyes: Pupils equal, round and reactive to light.? ENT: Pharynx normal.? Neck: Normal inspection.? Neck supple.? CVS: Normal heart rate and rhythm.? Pulses normal.? Respiratory: No respiratory distress.? Breath sounds normal.? Abdomen: Soft and nontender.? Skin: Skin warm and dry.? Normal skin color.? Normal skin turgor.? Extremities: No lower extremity edema.? No calf ttp. Global weakness Back: No midline tenderness, no C-spine tenderness, full range of motion, no CVA tenderness bilaterally Neuro: Oriented X 3.? No motor deficit.? No sensory deficit. CN 2-12 intact Course Reevaluation(s) Reevaluation #1: CBC with no acute findings hitting intervention. Chemistry with elevated BUN likely secondary to poor p.o. intake/dehydration --> IV gentle hydration ordered. Troponin 10, BNP 186 appears to be around her baseline. Patient is COVID positive. Normal x-ray of the chest. Repeat trop pending. Time: 10:35 Reevaluation #2: Nursing staff tried to ambulate patient she desatted down to 87% with just standing. Unable to ambulate due to weakness and shortness of breath. Time: 10:35 Medications Administered Discontinued Medications Generic Name Dose Route Start Last Admin Trade Name Freq PRN Reason Stop Dose Admin Albuterol Sulfate 2.5 mg 01/19/24 06:13 01/19/24 06:18 Albuterol Sulfate (0.083%) 2.5 Mg/3 Ml Vial.Neb INHALE 01/19/24 06:14 2.5 mg ONCE ONE Administration Medical Decision Making Medical Decision Making [facility] Narrative: 0551 73 year old female presents w/ fatigue, malaise myalgias and shortness of breath status post COVID-19 which she had last Friday. Physical exam benign. There is global weakness noted however no focal neuro deficits. Mild expiratory wheezing bilaterally. History and physical exam concerning for possible bronchitis versus post viral syndrome. Unlikely ACS, CHF, dissection, pulmonary embolism. Will rule out metabolic derangements in urinary infection. Plan-labs, urine, imaging Differential Diagnosis Differential Diagnoses: The differential diagnosis associated with the presentation includes History and physical exam concerning for possible bronchitis versus post viral syndrome. Unlikely ACS, CHF, dissection, pulmonary embolism. Will rule out metabolic derangements in urinary infection. Admission/Observation Consideration of admission/observation: Escalation of care including admission/observation considered Possible Lab Data MDM Lab Attestation statement: I reviewed the patient's lab results. 01/19/24 07:46 01/19/24 07:46 Labs: Lab Results 01/19/24 01/19/24 01/19/24 Range/Units 07:44 07:46 08:23 WBC 9.7 (4.8-10.8) X10*3/uL RBC 4.30 (4.20-5.50) X10*6/uL Hgb 12.5 (12.0-16.0) g/dl Hct 40.2 (37.0-47.0) % MCV 93.5 (80.0-98.0) fL MCH 29.1 (27.0-33.0) pg MCHC 31.1 (31.0-35.0) g/dl RDW 14.6 (11.0-16.0) % Plt Count 392 (160-400) X10*3/uL MPV 8.6 L (9.4-12.3) fL Immature Gran % (Auto) 0.5 H (0.0-0.4) % Neut % (Auto) 68.9 (45-73) % Lymph % (Auto) 18.1 L (20-40) % [place] % (Auto) 10.5 (2-11) % Eos % (Auto) 1.5 (0-4) % Baso % (Auto) 0.5 (0-2) % Lymph # (Auto) 1.8 (1.2-4.9) X10*3/uL [place] # (Auto) 1.0 (0.1-1.2) X10*3/uL Eos # (Auto) 0.2 (0.0-0.4) X10*3/uL Baso # (Auto) 0.1 (0.0-0.2) X10*3/uL Abs Immat Gran (auto) 0.05 H (0.00-0.03) X10*3/uL Absolute Neuts (auto) 6.7 (2.0-8.3) x10*3/uL Absolute Nucleated RBC 0.000 (0.0-0.012) X10*3/uL Nucleated RBC % (auto) 0.0 (0.0-0.2) /100WBC Hold Purple Top SEE NOTE Sodium 144 (135-145) mmol/L Potassium 4.6 (3.3-5.1) mmol/L Chloride 103 (96-108) mmol/L Carbon Dioxide 30 H (22-29) mmol/L Anion Gap 16 (12-20) BUN 41 H (9-16) mg/dL Creatinine 0.94 (0.5-1.4) mg/dL Estim Creat Clear Calc 63.9 Estimated GFR 58 POC Glucose (60-115) mg/dL Random Glucose 91 (60-115) mg/dL Calcium 9.8 (8.4-10.2) mg/dL Total Bilirubin 0.3 (0.0-1.0) mg/dL AST 15 (5-31) U/L ALT 16 (0-31) U/L Alkaline Phosphatase 68 (39-117) U/L Troponin I High Sens 10.0 (<3.5-17.0) ng/L B-Natriuretic Peptide 186 H (<100) pg/mL Total Protein 7.4 (6.5-8.0) g/dL Albumin 3.7 (3.5-5.0) g/dL Influenza Type A (PCR) NEGATIVE (Negative) Influenza Type B (PCR) NEGATIVE (Negative) RSV RNA Qual (PCR) NEGATIVE (Negative) SARS-CoV-2 RNA (RT-PCR) POSITIVE A (Negative) 01/19/24 Range/Units 08:24 WBC (4.8-10.8) X10*3/uL RBC (4.20-5.50) X10*6/uL Hgb (12.0-16.0) g/dl Hct (37.0-47.0) % MCV (80.0-98.0) fL MCH (27.0-33.0) pg MCHC (31.0-35.0) g/dl RDW (11.0-16.0) % Plt Count (160-400) X10*3/uL MPV (9.4-12.3) fL Immature Gran % (Auto) (0.0-0.4) % Neut % (Auto) (45-73) % Lymph % (Auto) (20-40) % [place] % (Auto) (2-11) % Eos % (Auto) (0-4) % Baso % (Auto) (0-2) % Lymph # (Auto) (1.2-4.9) X10*3/uL [place] # (Auto) (0.1-1.2) X10*3/uL Eos # (Auto) (0.0-0.4) X10*3/uL Baso # (Auto) (0.0-0.2) X10*3/uL Abs Immat Gran (auto) (0.00-0.03) X10*3/uL Absolute Neuts (auto) (2.0-8.3) x10*3/uL Absolute Nucleated RBC (0.0-0.012) X10*3/uL Nucleated RBC % (auto) (0.0-0.2) /100WBC Hold Purple Top Sodium (135-145) mmol/L Potassium (3.3-5.1) mmol/L Chloride (96-108) mmol/L Carbon Dioxide (22-29) mmol/L Anion Gap (12-20) BUN (9-16) mg/dL Creatinine (0.5-1.4) mg/dL Estim Creat Clear Calc Estimated GFR POC Glucose 88 (60-115) mg/dL Random Glucose (60-115) mg/dL Calcium (8.4-10.2) mg/dL Total Bilirubin (0.0-1.0) mg/dL AST (5-31) U/L ALT (0-31) U/L Alkaline Phosphatase (39-117) U/L Troponin I High Sens (<3.5-17.0) ng/L B-Natriuretic Peptide (<100) pg/mL Total Protein (6.5-8.0) g/dL Albumin (3.5-5.0) g/dL Influenza Type A (PCR) (Negative) Influenza Type B (PCR) (Negative) RSV RNA Qual (PCR) (Negative) SARS-CoV-2 RNA (RT-PCR) (Negative) Independent Interpretation I performed an independent interpretation of an: EKG and Plain X-Ray Radiology Impression Discussion of test interpretation with radiology: I have reviewed the radiologist's reading. Independent Historian Clinical information obtained from an independent historian. History obtained from or confirmed by: EMS External Record Review External record reviewed: Inpatient record, Office record, Outpatient record, Prior outpatient labs, Prior outpatient radiology, Primary care record and Outside ED record Chronic Conditions Patient?s care impacted by: Diabetes, Hypertension and Other (stroke, cva, hld, CHF .. ect see HPI ) Critical Care Time Critical Care Time Critical Care Time: Yes Total Critical Care Time: 35 Attestation: I attest to this time spent taking care of the patient, obtaining history, physical, reviewing labs, imaging, treatment of patients condition +/- specialist/hospitalist consult Discharge Plan Discharge Clinical Impression: Hypoxia, COVID-19 Patient Disposition: Admitted As Inpatient Prescriptions: No Action losartan 25 mg tablet 25 mg PO DAILY Qty: 30 0RF furosemide 20 mg tablet 20 mg PO DAILY 90 Days Qty: 90 1RF thiamine HCl (vitamin B1) 100 mg tablet 100 mg PO DAILY 90 Days Qty: 90 1RF (DME) Knee brace Misc See Rx Instructions .Route Qty: 1 0RF Rx Instructions: right hinge knee brace hydroxychloroquine 200 mg tablet 200 mg PO BID 90 Days Qty: 180 0RF Myrbetriq 50 mg tablet extended release 24 hr 50 mg PO DAILY 90 Days Qty: 90 0RF gabapentin 300 mg capsule 300 mg PO BID 30 Days Qty: 60 0RF (DME) FreeStyle David 2 [place] Misc See Rx Instructions .Route Qty: 1 0RF Rx Instructions: continuous (DME) knee ply wrap short op lg See Rx Instructions .Route .MEDSUPPLY Qty: 1 0RF Rx Instructions: As directed (DME) FreeStyle David 2 Sensor Kit See Rx Instructions .Route Qty: 6 3RF Rx Instructions: As directed Aimovig Autoinjector 140 mg/mL auto-injector 140 mg subcut ONCE 30 Days Qty: 1 6RF venlafaxine 37.5 mg Capsule,Extended Release 24hr 37.5 mg PO BEDTIME acetaminophen 325 mg Tablet 650 mg PO BID PRN (Reason: Pain) meloxicam 15 mg Tablet 15 mg PO DAILY PRN (Reason: Pain) ropinirole 0.5 mg Tablet 0.5 mg PO BEDTIME Rx Instructions: administer 1-3 hours before bedtime nystatin 100,000 unit/gram Cream 1 appl TOPICAL BID PRN (Reason: Rash) mupirocin 2 % Ointment 1 appl TOPICAL DAILY PRN (Reason: affected area) clonazepam 0.5 mg tablet 0.5 mg PO BID omeprazole 40 mg capsule,delayed release(DR/EC) 40 mg PO DAILY@0630 rosuvastatin 40 mg tablet 40 mg PO BEDTIME cholecalciferol (vitamin D3) 50 mcg (2,000 unit) tablet 50 mcg PO MOWEFR Xarelto 20 mg tablet 20 mg PO DAILY@1700 insulin degludec [Tresiba FlexTouch U-100] 100 unit/mL (3 mL) insulin pen 20 unit subcut DAILY Paxlovid 300 mg (150 mg x 2)-100 mg tablets,dose pack PO clotrimazole-betamethasone 1-0.05 % cream 1 appl topical DAILY PRN (Reason: Itching) fluticasone propionate 50 mcg/actuation spray,suspension 1 spray intranasal DAILY fenofibrate 160 mg tablet 160 mg PO DAILY Jardiance 25 mg tablet 25 mg PO DAILY multivitamin Tablet 1 tab PO DAILY lidocaine 5 % adhesive patch,medicated 1 patch topical DAILY PRN (Reason: Pain) cetirizine [All Day Allergy (cetirizine)] 10 mg tablet 10 mg PO DAILY PRN (Reason: allergy symptoms) 90 Days Qty: 90 1RF trazodone 100 mg tablet 100 mg PO BEDTIME PRN (Reason: sleep) 90 Days Qty: 90 1RF atenolol 50 mg tablet 50 mg PO BID 30 Days Qty: 60 6RF Ubrelvy 100 mg tablet 50 - 100 mg PO ONCE PRN (Reason: migraine headache) 30 Days Qty: 16 3RF Rx Instructions: take at onset of migraine, may repeat in 2hrs (may take w/ Tylenol) baclofen 10 mg tablet 10 mg PO TID PRN (Reason: muscle spasms) Trulicity 1.5 mg/0.5 mL pen injector 1.5 mg subcut QWEEK Qty: 2 3RF (DME) FreeStyle David 14 Day Sensor Kit See Rx Instructions .Route Qty: 6 3RF Rx Instructions: As directed Print Language: Somali
[2024-01-19] MEDS: Albuterol Sulfate (0.083%) 2.5 MG/3 ML VIAL.NEB INHALE (06:18)
--- NOTE | 2024-01-19 06:26 | MHC.EDTECH ---
EKG delayed due to patient care
[2024-01-19 08:19] LABS: Basophils Absolute Auto 0.1 X10*3/uL (0.0-0.2); Basophils Percent Auto 0.5 % (0-2); Eosinophils Absolute Auto 0.2 X10*3/uL (0.0-0.4); Eosinophils Percent Auto 1.5 % (0-4); Hematocrit 40.2 % (37.0-47.0); Hemoglobin 12.5 g/dl (12.0-16.0); Imm Gran Abs Auto 0.05 X10*3/uL (0.00-0.03); Imm Gran Pct Auto 0.5 % (0.0-0.4); Lymphocytes Absolute Auto 1.8 X10*3/uL (1.2-4.9); Lymphocytes Percent Auto 18.1 % (20-40); Mean Corpuscular HGB Conc 31.1 g/dl (31.0-35.0); Mean Corpuscular Hemoglobin 29.1 pg (27.0-33.0); Mean Corpuscular Volume 93.5 fL (80.0-98.0); Mean Platelet Volume 8.6 fL (9.4-12.3); Monocytes Percent Auto 10.5 % (2-11); Neutrophils Absolute Auto 6.7 x10*3/uL (2.0-8.3); Neutrophils Percent Auto 68.9 % (45-73); Platelet Count 392 X10*3/uL (160-400); Red Cell Distribution Width 14.6 % (11.0-16.0); White Blood Count 9.7 X10*3/uL (4.8-10.8)
[2024-01-19 08:24] LABS: MANUAL DIFF FLAG NO
--- NOTE | 2024-01-19 08:24 | PC.NURSE ---
called phlebotomy for recollect
[2024-01-19 08:31] LABS: Alanine Aminotransferase 16 U/L (0-31); Albumin Level 3.7 g/dL (3.5-5.0); Alkaline Phosphatase 68 U/L (39-117); Anion Gap 16 (12-20); Aspartate Amino Transferase 15 U/L (5-31); Bilirubin Total 0.3 mg/dL (0.0-1.0); Blood Urea Nitrogen 41 mg/dL (9-16); Calcium 9.8 mg/dL (8.4-10.2); Carbon Dioxide 30 mmol/L (22-29); Chloride 103 mmol/L (96-108); Creatinine Clr Calc Pharmacy 63.9; Estimated Glomerular Filt Rate 58; Glucose Random 91 mg/dL (60-115); Potassium 4.6 mmol/L (3.3-5.1); Sodium 144 mmol/L (135-145); Total Protein 7.4 g/dL (6.5-8.0)
[2024-01-19 08:32] LABS: Glucose, Whole Blood 88 mg/dL (60-115)
[2024-01-19 08:37] LABS: B Type Natriuretic Peptide 186 pg/mL (<100)
[2024-01-19 09:13] LABS: Influenza A PCR NEGATIVE (Negative); Influenza B PCR NEGATIVE (Negative); Resp Syncy Virus RNA Qual PCR NEGATIVE (Negative); SARS COV2 PCR INHOUSE POSITIVE (Negative)
--- NOTE | 2024-01-19 10:22 | PHA.MEDREC ---
Pharmacy Consult ? Medication Reconciliation Pharmacy has completed the medication reconciliation, utilized most recent claims and list from [facility] [phone], looks like [facility] list - [address] [place].
--- NOTE | 2024-01-19 10:38 | PC.NURSE ---
got pt up to sit on edge of bed with a max 3x assist, standing at bedside pt o2 dropped to 87%. pt was not able to take any steps with staff assistance, walker and gait belt. [facility] [place] made aware
--- NOTE | 2024-01-19 10:40 | PM.IMHP ---
History of Present Illness Date of Service: 01/19/24 Attending physician on admission: Zully Ayala Chief Complaint: sob, weakness 72-year-old female with pertinent history of insulin-dependent diabetes mellitus, essential hypertension, paroxysmal atrial fibrillation on Xarelto, CAD, mood disorder, HFpEF, history of CVA?, diabetic retinopathy, pacemaker in place presented to the ED earlier today for evaluation of significant weakness, productive cough with yellow/green sputum production, and dyspnea. She tested positive for COVID-19 on 5 days ago at [facility] where she tells me she hit her head rather hard without LOC and since then has had new blurred L peripheral vision. NO loss of vision, painful vision. She has had several falls despite walker use, last was several days ago. She is on xarelto. While in the ED, required 3 person assist to get out of bed and was unable to ambulate due to weakness in her legs. She desatruated to 87% upon standing. Vitals otherwise stable, afebrile, no hypoxia at rest. No leukocytosis or anemia. Renal function and lytes wnl. BNP 186. Positive for COVID 19. CXR negative for pneumonia. EKG shows sinus rhythm with 1st degree av block, previously had atrial paced rhythm, but controlled rate at 70. In the ED, given updraft with limited improvement. She was prescribed paxlovid on 01/13 Review of Systems Review of Systems: Yes all other systems are reviewed and are negative FORMERLY [facility], [facility] Medical History Thiamine deficiency Anemia Dehydration Essential hypertension Knee osteomyelits, right Atrial flutter Acute on chronic heart failure with preserved ejection fraction MDD (major depressive disorder), recurrent episode, moderate (HFpEF) heart failure with preserved ejection fraction Mild recurrent major depression Fracture, cervical vertebra Hyperlipidemia LDL goal <70 Post-dural puncture headache PONV (postoperative nausea and vomiting) Positive occult stool blood test [place] Headache Anemia Acute upper GI bleed Diabetic polyneuropathy COVID-19 Hand pain CVA (cerebral vascular accident) Head injury Left shoulder pain Left knee pain Left hip pain Left hand pain Dizziness Diabetic neuropathy Diabetes type 2, uncontrolled Type 2 diabetes mellitus with other diabetic kidney complication Proteinuria Type 2 diabetes mellitus with diabetic polyneuropathy Dyslipidemia Obesity due to excess calories Other and unspecified hyperlipidemia Chronic heart failure with preserved ejection fraction (HFpEF) Anemia Thrombocytosis Pulmonary hypertension Ischemic stroke Paroxysmal atrial fibrillation Atherosclerotic cardiovascular disease Hospital discharge follow-up Thrombus Urge urinary incontinence Iron deficiency anemia Pure hypercholesterolemia Essential hypertension Diabetes mellitus Lumbar degenerative disc disease Family History Father Rectal cancer Hypertension Arthritis of knee CVD (cardiovascular disease) Mother Hypertension CVD (cardiovascular disease) Myocardial infarction Diabetes Surgical History S/P laminectomy S/P cardiac pacemaker procedure S/P insertion of spinal cord stimulator H/O colonoscopy History of Mohs micrographic surgery for skin cancer Hx of cervical spine surgery History of partial hysterectomy Hx of cardiac cath Social History Household Members: Spouse Housing: Apartment Are you a primary care services manager to a significant other at home: No Do you presently have visiting nurse or other home services: Yes Alcohol intake: never Comment: na Patient Tobacco Use Status: Former Tobacco user Tobacco use type: Cigarette Smoked in Last 30 Days: No e-Cigarette/Vaping Use: Never Used Second Hand Smoke Exposure: No Use of substances other than those prescribed or required for medical reasons: No Advance Directives: Yes Advance Directives on File: Yes Advance Directives Date on File: 12/04/23 service: No Current occupational status: retired Current occupation: Lt handed Cognitive needs: Yes (scodor/walker) Hearing needs: No Vision needs: Yes (glasses) Meds Allergies Allergy/AdvReac Type Severity Reaction Status Date / Time morphine [Morphine] Allergy Severe ITCHING, Verified 01/19/24 05:23 hives cefdinir Allergy Intermediate hives Verified 01/19/24 05:23 sulfamethoxazole Allergy Intermediate RASH Verified 01/19/24 05:23 trimethoprim Allergy Intermediate RASH Verified 01/19/24 05:23 duloxetine AdvReac Severe altered Verified 01/19/24 05:23 behavior Active Medications: Current Medications Sodium Chloride (Ns) 1,000 mls @ 999 mls/hr IV .Q1H1M LEYDA Stop: 01/19/24 11:45 Home Medications ?Medication ?Instructions ?Recorded ?Confirmed ?Last Taken ?Type clotrimazole-betamethasone 1 1 appl topical DAILY PRN Itching 07/15/23 01/19/24 Unknown History %-0.05 % topical cream empagliflozin 25 mg tablet 25 mg PO DAILY 07/15/23 01/19/24 Unknown History (Jardiance) fenofibrate 160 mg tablet 160 mg PO DAILY 07/15/23 01/19/24 Unknown History fluticasone propionate 50 1 spray intranasal DAILY 07/15/23 01/19/24 Unknown History mcg/actuation nasal spray,suspension lidocaine 5 % topical patch 1 patch topical DAILY PRN Pain 07/15/23 01/19/24 Unknown History multivitamin 1 tab PO DAILY 07/15/23 01/19/24 Unknown History baclofen 10 mg tablet 10 mg PO TID PRN muscle spasms 01/08/24 01/19/24 Unknown History acetaminophen 325 mg tablet 650 mg PO BID PRN Pain 01/19/24 01/19/24 Unknown History cholecalciferol (vitamin D3) 50 50 mcg PO MOWEFR 01/19/24 01/19/24 Unknown History mcg (2,000 unit) tablet clonazepam 0.5 mg tablet 0.5 mg PO BID 01/19/24 01/19/24 Unknown History insulin degludec 100 unit/mL (3 20 unit subcut DAILY 01/19/24 01/19/24 Unknown History mL) subcutaneous pen (Tresiba FlexTouch U-100 insulin) meloxicam 15 mg tablet 15 mg PO DAILY PRN Pain 01/19/24 01/19/24 Unknown History mupirocin 2 % topical ointment 1 appl topical DAILY PRN affected 01/19/24 01/19/24 Unknown History area nirmatrelvir 300 mg (150 mg ea PO 01/19/24 Unknown History x2)-ritonavir 100 mg tablet,dose pack (Paxlovid) nystatin 100,000 unit/gram topical 1 appl topical BID PRN Rash 01/19/24 01/19/24 Unknown History cream omeprazole 40 mg capsule,delayed 40 mg PO DAILY@0630 01/19/24 01/19/24 Unknown History release rivaroxaban 20 mg tablet (Xarelto) 20 mg PO DAILY@1700 01/19/24 01/19/24 Unknown History ropinirole 0.5 mg tablet 0.5 mg PO BEDTIME 01/19/24 01/19/24 Unknown History rosuvastatin 40 mg tablet 40 mg PO BEDTIME 01/19/24 01/19/24 Unknown History venlafaxine 37.5 mg 37.5 mg PO BEDTIME 01/19/24 01/19/24 Unknown History capsule,extended release 24 hr Physical Exam Vital Signs and Narrative: Vital Signs: Last Vital Signs Temp 97.7 F 01/19/24 07:31 Pulse 69 01/19/24 07:29 Resp 18 01/19/24 07:29 BP 129/58 L 01/19/24 07:29 Pulse Ox 87 L 01/19/24 10:38 O2 Del Method Room Air 01/19/24 10:38 BMI result Body Mass Index 29.4 Constitutional - Awake and Alert, No apparent distress Eyes - PERRLA, EOMI, L conjunctival injection Cardiovascular - S1S2, RRR, No edema Respiratory - Normal lung expansion, Normal respiratory effort, No respiratory distress, CTA bilaterally Gastrointestinal - NT / ND; +BS; No rebound or guarding Extremities - no calf tenderness bilaterally, no swelling Skin - Warm/Dry Neurological - Alert & oriented x3, CN II-XII in tact except blurred vision left periphery Psychological - Appropriate affect Results Labs 01/19/24 07:46 01/19/24 07:46 Labs: Laboratory Results - last 24 hr 01/19/24 01/19/24 01/19/24 07:44 07:46 08:23 MCV 93.5 MCH 29.1 MCHC 31.1 RDW 14.6 Plt Count 392 MPV 8.6 L Immature Gran % (Auto) 0.5 H Neut % (Auto) 68.9 Lymph % (Auto) 18.1 L [place] % (Auto) 10.5 Eos % (Auto) 1.5 Baso % (Auto) 0.5 Lymph # (Auto) 1.8 [place] # (Auto) 1.0 Eos # (Auto) 0.2 Baso # (Auto) 0.1 Abs Immat Gran (auto) 0.05 H Absolute Neuts (auto) 6.7 Absolute Nucleated RBC 0.000 Nucleated RBC % (auto) 0.0 Hold Purple Top SEE NOTE Anion Gap 16 Estim Creat Clear Calc 63.9 Estimated GFR 58 POC Glucose Random Glucose 91 Calcium 9.8 Total Bilirubin 0.3 AST 15 ALT 16 Alkaline Phosphatase 68 Troponin I High Sens 10.0 B-Natriuretic Peptide 186 H Total Protein 7.4 Albumin 3.7 Influenza Type A (PCR) NEGATIVE Influenza Type B (PCR) NEGATIVE RSV RNA Qual (PCR) NEGATIVE SARS-CoV-2 RNA (RT-PCR) POSITIVE A 01/19/24 08:24 MCV MCH MCHC RDW Plt Count MPV Immature Gran % (Auto) Neut % (Auto) Lymph % (Auto) [place] % (Auto) Eos % (Auto) Baso % (Auto) Lymph # (Auto) [place] # (Auto) Eos # (Auto) Baso # (Auto) Abs Immat Gran (auto) Absolute Neuts (auto) Absolute Nucleated RBC Nucleated RBC % (auto) Hold Purple Top Anion Gap Estim Creat Clear Calc Estimated GFR POC Glucose 88 Random Glucose Calcium Total Bilirubin AST ALT Alkaline Phosphatase Troponin I High Sens B-Natriuretic Peptide Total Protein Albumin Influenza Type A (PCR) Influenza Type B (PCR) RSV RNA Qual (PCR) SARS-CoV-2 RNA (RT-PCR) Imaging Radiologist's Impressions: Impressions Chest X-Ray 01/19/24 06:25 IMPRESSION: No acute intrathoracic disease. Electronically signed by: Maximiliano Graham MD 01/19/2024 07:59 AM EDT RP Assessment and Plan (1) COVID-19: Status: Acute (2) Hypoxia: Status: Acute Plan 72-year-old female with pertinent history of insulin-dependent diabetes mellitus, essential hypertension, paroxysmal atrial fibrillation on Xarelto, CAD, mood disorder, HFpEF, history of CVA?, diabetic retinopathy, pacemaker in place admitted for COVID-19 with exertional hypoxia and significant weakness #COVID-19 with exertional hypoxia -Initial positive test 01/13- continue airborne/contact precautions -Desats to 87% with minimal exertion -IV decadron 6mg qd (initiated 01/18) -dc paxlovid -guaifenesin ac leyda -duonebs q4h -cxr negative for pneumonia #Weakness -r/t above. Required 3 person assist in ED. Ambulatory with walker at baseline -PT eval #Paroxysmal afib- rate controlled -continue xarelto for ac -tenolol #HFpEF -no acute exacerbation, euvolemic on exam -continue oral Lasix 40 mg daily, Jardiance # insulin-dependent type 2 diabetes -POC glucose -diabetic diet -dose adjusted basal insulin -Humalog on sliding scale -hold p.o. anti hyperglycemics # hypertension -continue atenolol, furosemide, losartan -monitor blood pressures # CAD-no anginal chest pain -continue atenolol, statin # mood disorder -continue home meds -reporting worsening anxiety/depression w/p si. Psych consult #polymyaglia rheumatica/unspecified arthropathy -cotninue hydroxychloroquine DVT prophylaxis-on Xarelto Full code pt requires inpt stay at least 2 midnights for management of covid 19 with exceptional hypoxia on iv ster and steroids and significant weakness requiring pt eval and possible placement to str Quality Stroke Does the patient have a stroke diagnosis?: No VTE Prior VTE?: No VTE Risk Level:: Medical - moderate - high VTE Device Contraindication: Treatment Not Indicated VTE Drug Contraindication: N/A - Med Ordered
[2024-01-19] MEDS: Albuterol/Iprat 2.5/0.5MG 3 ML AMPUL.NEB INHALE ×3 (11:27→19:33)
[2024-01-19] MEDS: dexAMETHasone sod phosphate 4 MG/ML VIAL 6 MG IVPUSH (11:46)
[2024-01-19] MEDS: guaiFEN/Codeine SF 200/20/10ML 10 ML LIQUID 5 ML PO ×4 (11:46→23:50)
[2024-01-19] MEDS: 0.9 % Sodium Chloride 1,000 ML 999 ML IV (11:47)
[2024-01-19 12:20] LABS: Troponin-I High Sensitivity 8.1 ng/L (<3.5-17.0)
[2024-01-19] MEDS: Acetaminophen 325 MG TABLET 650 MG PO (12:25)
[2024-01-19 13:06] LABS: Glucose, Whole Blood 170 mg/dL (60-115)
[2024-01-19] MEDS: Insulin Lispro 100 UNIT/ML 3 ML VIAL SUBCUT ×3 (14:07→22:25)
[2024-01-19] MEDS: 0.9 % Sodium Chloride Flush 3 ML SYRINGE IVFLUSH ×2 (16:32→23:51)
[2024-01-19 18:46] LABS: Glucose, Whole Blood 229 mg/dL (60-115)
[2024-01-19] MEDS: Rivaroxaban 20 MG TABLET PO (18:46)
[2024-01-19] MEDS: Atorvastatin Calcium 80 MG TABLET PO (20:20)
[2024-01-19] MEDS: Gabapentin 300 MG CAPSULE PO (20:20)
[2024-01-19] MEDS: Hydroxychloroquine Sulfate 200 MG TABLET PO (20:21)
[2024-01-19] MEDS: rOPINIRole HCL 0.5 MG TABLET PO (20:21)
[2024-01-19] MEDS: atenoloL 50 MG TABLET PO (20:21)
[2024-01-19] MEDS: clonazePAM 0.5 MG TABLET PO (20:21)
[2024-01-19] MEDS: Venlafaxine HCl ER 37.5 MG CAP.ER.24H PO (20:31)
[2024-01-19 21:38] LABS: Glucose, Whole Blood 387 mg/dL (60-115)
--- NOTE | 2024-01-19 22:00 | PC.NURSE ---
This show card writer assumed care of this Pt at 1900. Pt A&Ox3, reports 02/18 LOPEZ. Provider Efrain made aware, new order given to MAR.
[2024-01-19] MEDS: traMADoL HCL 50 MG TABLET 25 MG PO (22:22)
[2024-01-20] VITALS (16 sets, daily range): BP systolic 157–205; BP diastolic 69–83; PULSE 58–140; RESP 14–20; TEMP 36.2–37.1; O2SAT 92–97
--- NOTE | 2024-01-20 01:00 | PC.NURSE ---
Pt incontinent of urine, incontinent care provided with two assist.
[2024-01-20] MEDS: guaiFEN/Codeine SF 200/20/10ML 10 ML LIQUID 5 ML PO ×5 (03:08→21:12)
[2024-01-20 04:53] LABS: Hemoglobin 13.1 g/dl (12.0-16.0); Mean Corpuscular Hemoglobin 28.9 pg (27.0-33.0); Mean Corpuscular Volume 90.3 fL (80.0-98.0); Mean Platelet Volume 8.6 fL (9.4-12.3); Platelet Count 469 X10*3/uL (160-400); Red Blood Count 4.54 X10*6/uL (4.20-5.50); Red Cell Distribution Width 14.3 % (11.0-16.0)
--- NOTE | 2024-01-20 05:01 | PC.NURSE ---
Pt repositioned in bed, given ice pack, tissue, ice and water per request.
[2024-01-20 05:16] LABS: Anion Gap 14 (12-20); Blood Urea Nitrogen 33 mg/dL (9-16); Calcium 10.3 mg/dL (8.4-10.2); Carbon Dioxide 26 mmol/L (22-29); Chloride 102 mmol/L (96-108); Creatinine Clr Calc Pharmacy 59.5; Estimated Glomerular Filt Rate 53; Glucose Random 204 mg/dL (60-115); Potassium 4.4 mmol/L (3.3-5.1); Sodium 138 mmol/L (135-145)
[2024-01-20] MEDS: Omeprazole 40 MG CAPSULE.DR PO (06:10)
--- NOTE | 2024-01-20 06:16 | PC.NURSE ---
Manual BP 200/80, Dr. Zuniga made aware, no new orders at this time.
[2024-01-20 06:19] LABS: Appearance Urine Cloudy; Color Urine Yellow; Glucose Urine UA >=1000 mg/dL (Negative); Leukocyte Esterase Urine Negative (Negative); Nitrite Urine Negative (Negative); UMIC TRIGGER UACC YES; Urine Blood Negative (Negative); Urine Ketones Negative (Negative); Urine Protein 100 (2+) mg/dL (Neg-Trace)
[2024-01-20] MEDS: Labetalol HCL 100 MG/20 ML VIAL 10 MG IVPUSH (06:26)
[2024-01-20 06:27] LABS: Bacteria Urine Trace (None Seen); Hyaline Casts Urine 0-2 /LPF (0-2); RBC Urine 0-2 /HPF (0-2); Squamous Epithelial Cell Urine 0-2 /HPF (0-2); WBC Urine 0-5 /HPF (0-5)
--- NOTE | 2024-01-20 07:15 | PC.NURSE ---
report recieved from previous RN, patient resting on stretcher, complaining of migraine at this time, requesting lights to be turned down, lights adjusted by this RN, patient requesting breakfast tray, educated that tray will be provided when they arrive from kitchen. remains on bus driver/monitor at this time, offering no new complaints, precautions remain in place.
[2024-01-20 07:29] LABS: Glucose, Whole Blood 228 mg/dL (60-115)
[2024-01-20] MEDS: Insulin Lispro 100 UNIT/ML 3 ML VIAL SUBCUT ×4 (07:35→22:10)
--- NOTE | 2024-01-20 07:39 | PC.NURSE ---
patient medicated per sliding scale and MAR, provided with breakfast tray all safety maintained, plan of care ongoing
[2024-01-20] MEDS: 0.9 % Sodium Chloride Flush 3 ML SYRINGE IVFLUSH ×3 (07:43→21:15)
[2024-01-20] MEDS: Albuterol/Iprat 2.5/0.5MG 3 ML AMPUL.NEB INHALE ×4 (07:55→20:00)
--- NOTE | 2024-01-20 08:05 | PC.NURSE ---
pharmacy called to request Jardiance, Lofibra, Flonase and mirabegron, delay in medication administration due to not having medications on unit
[2024-01-20 08:11] LABS: C Reactive Protein 4.35 mg/dL (< or = 0.50)
[2024-01-20] MEDS: Fluticasone Propionate Nasal 16 GM SPRAY 1 SPRAY NOSTRIL-B (08:44)
[2024-01-20] MEDS: Insulin Glargine,Hum.rec.anlog 100 UNIT/ML 10 ML VIAL 12 UNIT SUBCUT (08:45)
[2024-01-20] MEDS: Mirabegron 50 MG TAB.ER.24H PO (08:46)
[2024-01-20] MEDS: Empagliflozin 25 MG TABLET PO (08:46)
[2024-01-20] MEDS: Fenofibrate 160 MG TABLET PO (08:46)
[2024-01-20] MEDS: Hydroxychloroquine Sulfate 200 MG TABLET PO ×2 (08:47→21:13)
[2024-01-20] MEDS: Gabapentin 300 MG CAPSULE PO ×2 (08:47→21:13)
[2024-01-20] MEDS: atenoloL 50 MG TABLET PO ×2 (08:47→21:13)
[2024-01-20] MEDS: clonazePAM 0.5 MG TABLET PO ×2 (08:48→21:13)
[2024-01-20] MEDS: Losartan Potassium 25 MG TABLET PO (08:48)
[2024-01-20] MEDS: Furosemide 20 MG TABLET PO (08:48)
[2024-01-20] MEDS: Multivitamin TABLET 1 TAB PO (08:48)
[2024-01-20] MEDS: dexAMETHasone sod phosphate 4 MG/ML VIAL 6 MG IVPUSH (08:52)
--- NOTE | 2024-01-20 10:37 | HO.PM.IMPN ---
Subjective Subjective Date of Service: 01/20/24 Interval History: c/o dyspnea + cough, started 01/15/24 no fever c/o /10 LOPEZ; has migraine disorder BP high at 201/74 this AM, now 157/72 Review of Systems Review of Systems: Yes all other systems are reviewed and are negative Physical Exam Vital Signs: Vital Signs: Last Vital Signs Temp 98.2 F 01/20/24 07:23 Pulse 70 01/20/24 10:28 Resp 15 01/20/24 10:28 BP 157/72 H 01/20/24 10:28 Pulse Ox 96 01/20/24 10:28 O2 Del Method Room Air 01/20/24 10:28 BMI result Body Mass Index 29.4 Gen: in no acute distress HEENT: sclera anicteric, moist mucus membranes Neck: supple Lungs: clear to auscultation bilaterally Heart: regular rate and rhythm, no murmurs Abd: soft, non-tender, non-distended Ext: no edema Skin: warm/well-perfused Neuro: alert and oriented x3, no focal findings Psych: appropriate affect Objective Data Active Medications Acetaminophen (Acetaminophen 325 Mg Tablet) 650 mg PO Q6H PRN PRN Reason: Pain, Mild (Pain Scale 1-3), fever or headache Last Admin: 01/19/24 12:25 Dose: 650 mg Documented By: KATHY Albuterol/Ipratropium (Albuterol/Iprat 2.5/0.5mg 3 Ml Ampul.Neb) 3 ml INHALE RQ4H WHILE AWAKE [facility] Last Admin: 01/20/24 07:55 Dose: 3 ml Documented By: IMAN Atenolol (Atenolol 50 Mg Tablet) 50 mg PO BID [facility]; Protocol Last Admin: 01/20/24 08:47 Dose: 50 mg Documented By: CORNELIO Atorvastatin Calcium (Atorvastatin Calcium 80 Mg Tablet) 80 mg PO BEDTIME [facility] Last Admin: 01/19/24 20:20 Dose: 80 mg Documented By: ELADIO Baclofen (Baclofen 10 Mg Tablet) 10 mg PO TID PRN PRN Reason: muscle spasms Calcium Carbonate (Calcium Carbonate 750 Mg Tab.Chew) 750 mg PO Q4H PRN PRN Reason: Heartburn Clonazepam (Clonazepam 0.5 Mg Tablet) 0.5 mg PO BID [facility] Last Admin: 01/20/24 08:48 Dose: 0.5 mg Documented By: CORNELIO Dexamethasone Sodium Phosphate (Dexamethasone Sod Phosphate 4 Mg/Ml Vial) 6 mg IVPUSH DAILY [facility] Last Admin: 01/20/24 08:52 Dose: 6 mg Documented By: CORNELIO Empagliflozin (Empagliflozin 25 Mg Tablet) 25 mg PO DAILY [facility] Last Admin: 01/20/24 08:46 Dose: 25 mg Documented By: CORNELIO Fenofibrate (Fenofibrate 160 Mg Tablet) 160 mg PO DAILY [facility] Last Admin: 01/20/24 08:46 Dose: 160 mg Documented By: CORNELIO Fluticasone Propionate (Fluticasone Propionate Nasal 16 Gm Clark) 1 spray NOSTRIL-B DAILY [facility] Last Admin: 01/20/24 08:44 Dose: 1 spray Documented By: CORNELIO Furosemide (Furosemide 20 Mg Tablet) 20 mg PO DAILY [facility]; Protocol Last Admin: 01/20/24 08:48 Dose: 20 mg Documented By: CORNELIO Gabapentin (Gabapentin 300 Mg Capsule) 300 mg PO BID [facility] Last Admin: 01/20/24 08:47 Dose: 300 mg Documented By: CORNELIO Glucose (Glucose Gel 15 Gm Gel..Gram.) 15 gm PO Q15M PRN; Protocol PRN Reason: per Hypoglycemia Standing Ord. Guaifenesin/Codeine Phosphate (Guaifen/Codeine Sf 200/20/10ml 10 Ml Liquid) 5 ml PO Q4H [facility] Last Admin: 01/20/24 07:35 Dose: 5 ml Documented By: CORNELIO Hydroxychloroquine Sulfate (Hydroxychloroquine Sulfate 200 Mg Tablet) 200 mg PO BID [facility] Last Admin: 01/20/24 08:47 Dose: 200 mg Documented By: CORNELIO Dextrose (D10) 250 mls @ 750 mls/hr IV Q15M PRN; Protocol PRN Reason: per Hypoglycemia Standing Ord. Insulin Glargine (Insulin Glargine,Hum.Rec.Anlog 100 Unit/Ml 10 Ml Vial) 12 unit SUBCUT DAILY [facility] Last Admin: 01/20/24 08:45 Dose: 12 unit Documented By: CORNELIO Insulin Human Lispro (Insulin Lispro 100 Unit/Ml 3 Ml Vial) 0 unit SUBCUT QIDACHS [facility]; Protocol Last Admin: 01/20/24 07:35 Dose: 4 unit Documented By: CORNELIO Lidocaine (Lidocaine 4 % Patch Adh..Patch) 1 patch TRANSDERMA DAILY PRN PRN Reason: Pain Loratadine (Loratadine 10 Mg Tablet) 10 mg PO DAILY PRN PRN Reason: allergy symptoms Losartan Potassium (Losartan Potassium 25 Mg Tablet) 25 mg PO DAILY [facility]; Protocol Last Admin: 01/20/24 08:48 Dose: 25 mg Documented By: CORNELIO Magnesium Hydroxide (Milk Of Magnesia 30 Ml Oral.Susp) 30 ml PO DAILY PRN PRN Reason: Constipation Melatonin (Melatonin 3 Mg Tablet) 6 mg PO BEDTIME PRN PRN Reason: Insomnia Mirabegron (Mirabegron 50 Mg Tab.Er.24h) 50 mg PO DAILY [facility] Last Admin: 01/20/24 08:46 Dose: 50 mg Documented By: CORNELIO Multivitamins/Vitamin C (Multivitamin Tablet) 1 tab PO DAILY [facility] Last Admin: 01/20/24 08:48 Dose: 1 tab Documented By: CORNELIO Non-Formulary Medication (Ubrogepant [Ubrelvy]) 50 - 100 mg PO ONCE PRN PRN Reason: migraine headache Nystatin (Nystatin Cream 15 Gm Tube) 1 appl TOPICAL BID PRN; Protocol PRN Reason: Rash Nystatin/Triamcinolone Acetonide (Nystatin/Triamcinolone Cream 15 Gm Tube) 1 appl TOPICAL DAILY PRN PRN Reason: Itching Omeprazole (Omeprazole 40 Mg Capsule.Dr) 40 mg PO DAILY@0630 [facility] Last Admin: 01/20/24 06:10 Dose: 40 mg Documented By: ELADIO Oxycodone HCl (Oxycodone Hcl Immed Release 5 Mg Tablet) 5 mg PO Q4H PRN PRN Reason: Pain, Severe (Pain Scale 7-10) Rivaroxaban (Rivaroxaban 20 Mg Tablet) 20 mg PO DAILY@1700 [facility] Last Admin: 01/19/24 18:46 Dose: 20 mg Documented By: KATHY Ropinirole HCl (Ropinirole Hcl 0.5 Mg Tablet) 0.5 mg PO BEDTIME [facility] Last Admin: 01/19/24 20:21 Dose: 0.5 mg Documented By: ELADIO Sodium Chloride (0.9 % Sodium Chloride Flush 3 Ml Syringe) 3 ml IVFLUSH QSHIFT [facility] Last Admin: 01/20/24 07:43 Dose: 3 ml Documented By: CORNELIO Trazodone HCl (Trazodone Hcl 100 Mg Tablet) 100 mg PO BEDTIME PRN PRN Reason: sleep Venlafaxine HCl (Venlafaxine Hcl Er 37.5 Mg Cap.Er.24h) 37.5 mg PO BEDTIME [facility] Last Admin: 01/19/24 20:31 Dose: 37.5 mg Documented By: ELADIO Vitamin D (Cholecalciferol (Vitamin D3) 25 Mcg Tablet) 50 mcg PO MOWEFR [facility] Last Admin: 01/19/24 12:25 Dose: Not Given Documented By: KATHY Non-Admin Reason: Med Not Available Labs 01/20/24 04:27 01/20/24 04:27 Labs: Laboratory Results - last 24 hr 01/19/24 01/19/24 01/19/24 11:48 13:00 18:41 MCV MCH MCHC RDW Plt Count MPV Absolute Nucleated RBC Nucleated RBC % (auto) Anion Gap Estim Creat Clear Calc Estimated GFR POC Glucose 170 H 229 H Random Glucose Calcium Troponin I High Sens 8.1 C-Reactive Protein Urine Color Urine Appearance Urine pH Ur Specific Dinosaur Urine Protein Urine Glucose (UA) Urine Ketones Urine Blood Urine Nitrite Ur Leukocyte Esterase Urine RBC Urine WBC Ur Squamous Epith Cells Urine Bacteria Hyaline Casts 01/19/24 01/20/24 01/20/24 21:32 04:27 06:11 MCV 90.3 MCH 28.9 MCHC 32.0 RDW 14.3 Plt Count 469 H MPV 8.6 L Absolute Nucleated RBC 0.000 Nucleated RBC % (auto) 0.0 Anion Gap 14 Estim Creat Clear Calc 59.5 Estimated GFR 53 POC Glucose 387 H* Random Glucose 204 H Calcium 10.3 H Troponin I High Sens C-Reactive Protein 4.35 H Urine Color Yellow Urine Appearance Cloudy Urine pH 8.0 Ur Specific Dinosaur 1.020 Urine Protein 100 (2+) H Urine Glucose (UA) >=1000 H Urine Ketones Negative Urine Blood Negative Urine Nitrite Negative Ur Leukocyte Esterase Negative Urine RBC 0-2 Urine WBC 0-5 Ur Squamous Epith Cells 0-2 Urine Bacteria Trace Hyaline Casts 0-2 01/20/24 07:25 MCV MCH MCHC RDW Plt Count MPV Absolute Nucleated RBC Nucleated RBC % (auto) Anion Gap Estim Creat Clear Calc Estimated GFR POC Glucose 228 H Random Glucose Calcium Troponin I High Sens C-Reactive Protein Urine Color Urine Appearance Urine pH Ur Specific Dinosaur Urine Protein Urine Glucose (UA) Urine Ketones Urine Blood Urine Nitrite Ur Leukocyte Esterase Urine RBC Urine WBC Ur Squamous Epith Cells Urine Bacteria Hyaline Casts Assessment and Plan (1) COVID-19: Status: Acute Plan d2 72yo F with DM2, HTN, pAF on rivaroxaban, CAD, mood disorder, HFpEF, hx CVA, DM retinopathy, PPM admitted for Covid-19 infection with exertional hypoxia + significant weakness requiring likely placement Covid-19 infection with exertional hypoxia - dexamethasone 01/18-01/27, remdesivir 01/19-01/23; monitor oxygenation + CRP; isolation precautions weakness - PT eval; required 3-person assist in ED [baseline = ambulatory with [facility]] chronic HFpEF HTN CAD - continue atenolol, losartan, furosemide, empagliflozin, atorvastatin pAF - continue rivaroxaban, atenolol; has PPM mood disorder - continue clonazepam, venlafaxine; Psych consult for worsening anxiety/depression OAB - continue mirabegron RLS - continue ropinirole DM2 with steroid-induced hyperglycemia - incease basal-bolus insulin; continue empagliflozin ?RA - continue hydroxychloroquine VTE ppx - rivaroxaban dispo - TBD, likely needs STR In my clinical judgment, the patient requires continued inpatient hospitalization for the following reasons: hypoxia, PT eval Total time managing care of this patient today: 40 minutes. Quality Stroke Does the patient have a stroke diagnosis?: No VTE Prior VTE?: No VTE Risk Level:: Medical - moderate - high VTE Device Contraindication: Treatment Not Indicated VTE Drug Contraindication: N/A - Med Ordered
[2024-01-20] MEDS: Butalb/Acetamin/Caff 50/325/40 TABLET 1 TAB PO (11:05)
--- NOTE | 2024-01-20 11:16 | MHC.CM.PN ---
IMM 01/20/24, Pt lives with her , [facility]: 1.5 hours of personal care per day, M-F, although both of these services have stopped while she has COVID. She has MOW. HCP is on file, naming Jamal and Jadon. Pt asked to re-do proxy to have her son Edu on it because he lives locally, CM to bring new form and will upload to chart. was with pt and both of them talked about how she has been falling a lot lately. For DME: she has a walker and w/c. DCP: STR. CM to follow and assist with DC plan. Pt has been at [facility] following neck fracture in the past.
[2024-01-20] MEDS: Remdesivir 200 MG in 0.9 % Sodium Chloride 210 ML 105 MG IV (12:25)
[2024-01-20 12:27] LABS: Glucose, Whole Blood 226 mg/dL (60-115)
--- NOTE | 2024-01-20 12:48 | MHC.EDTECH ---
1000 cc urine emptied from [facility] canister
--- NOTE | 2024-01-20 12:53 | PC.NURSE ---
patient transferred onto hospital stretcher for comfort, purewick noted to be soiled with stool, claudine care provided and new pure wick placed. awaiting lunch tray, medicated per MAR, plan of care ongoing
--- NOTE | 2024-01-20 13:54 | P.CNPS_ITS ---
History of Present Illness Date of Service: 01/20/24 Chief Complaint: covid 19 ,ambulatory hypoxia,weakness Reason for Consult: Depression, Anxiety, SI Requesting physician: Tea Bravo Sources of Information: patient interviewed and chart reviewed HPI Narrative: 73 yo female, history of recurrent major depression, CVA, DM, Migraine, Thiamine Deficiency, Non-rheumatic heart disease, aortic stenosis, heart failure with afib and ppm and urge incontinence. Pt reports +COVID 19 for about six days with fatigue, malaise, myalgias, shortness of breath with failure to thrive, progressive weakness and currently inability to ambulate. Pt presents with her . Both state they need a handicapped apartment as their current residence does not promote safety in ambulation, and my legs just don't work any longer . Pt also reports needing more help at home for personal care. She and report fx cervical vertebrae Dec 2022 with decline. Pt reports she recovered at [facility], but has just not been the same. Discussed some family stressors that occurred as well. The couple report a blended family of nine children who are great supports they state -pts daughter Alley in July 2023 of Lymphoma- this has slowed the couple down with grief, a mother is not supposed to lose her child . Pt reports she will be medically admitted, however does report her antidepressant is not working- per records, history of allergy to Cymbalta. Trials of Trazodone, Lorazepam, Klonopin (current), Escitalopram, and currently Venlafaxine. PCP, Dr. Madsen prescribes for pt. She asks for antidepressant review and changes to help improve her current symptoms. Past Psychiatric History: Past medication trials: cymbalta, lexapro, diazepam, Trazodone, Lorazepam, Klonopin, Venlafaxine Medical Evaluation Reviewed: Yes Review of Systems Constitutional: Reports body ache(s), Reports fatigue, Reports frequent falls, Reports malaise and Reports poor appetite Cardiovascular: Reports dyspnea Respiratory: Reports dyspnea Musculoskeletal: Reports abnormal gait, Reports myalgias, Reports arthralgias, Reports muscle weakness and Reports stiffness Reports abnormal gait and Reports frequent falls Endocrine: Reports fatigue [facility] Medical History Thiamine deficiency Anemia Dehydration Essential hypertension Knee osteomyelits, right Atrial flutter Acute on chronic heart failure with preserved ejection fraction MDD (major depressive disorder), recurrent episode, moderate (HFpEF) heart failure with preserved ejection fraction Mild recurrent major depression Fracture, cervical vertebra Hyperlipidemia LDL goal <70 Post-dural puncture headache PONV (postoperative nausea and vomiting) Positive occult stool blood test [place] Headache Anemia Acute upper GI bleed Diabetic polyneuropathy COVID-19 Hand pain CVA (cerebral vascular accident) Head injury Left shoulder pain Left knee pain Left hip pain Left hand pain Dizziness Diabetic neuropathy Diabetes type 2, uncontrolled Type 2 diabetes mellitus with other diabetic kidney complication Proteinuria Type 2 diabetes mellitus with diabetic polyneuropathy Dyslipidemia Obesity due to excess calories Other and unspecified hyperlipidemia Chronic heart failure with preserved ejection fraction (HFpEF) Anemia Thrombocytosis Pulmonary hypertension Ischemic stroke Paroxysmal atrial fibrillation Atherosclerotic cardiovascular disease Hospital discharge follow-up Thrombus Urge urinary incontinence Iron deficiency anemia Pure hypercholesterolemia Essential hypertension Diabetes mellitus Lumbar degenerative disc disease Surgical History S/P laminectomy S/P cardiac pacemaker procedure S/P insertion of spinal cord stimulator H/O colonoscopy History of Mohs micrographic surgery for skin cancer Hx of cervical spine surgery History of partial hysterectomy Hx of cardiac cath Family History: Depression and Anxiety Social History: Lives with who is supportive Nine children, one passed in July 2023 Substance History: Denies Diagnostics Vital Signs (24Hr): Vital Signs - 24 hr 01/19/24 15:06 01/19/24 16:30 01/19/24 19:39 Temperature 98.5 F Pulse Rate 66 70 92 Respiratory Rate 18 23 H 20 Blood Pressure 174/91 H Pulse Oximetry 95 Oxygen Delivery Method Room Air 01/19/24 20:00 01/20/24 03:10 01/20/24 06:06 Temperature 98.2 F 98.1 F 98.0 F Pulse Rate 83 70 73 Respiratory Rate 22 H 20 14 Blood Pressure 162/67 H 175/69 H 191/80 H Pulse Oximetry 94 92 93 Oxygen Delivery Method Room Air Room Air Room Air 01/20/24 07:23 01/20/24 07:34 01/20/24 07:56 Temperature 98.2 F Pulse Rate 70 70 Respiratory Rate 16 16 Blood Pressure 201/74 H 168/74 H Pulse Oximetry 94 Oxygen Delivery Method Room Air Nasal Cannula with ETCO2 09/10/24 08:47 01/20/24 08:48 01/20/24 08:48 Temperature Pulse Rate 71 Respiratory Rate Blood Pressure 168/74 H 168/74 H 168/74 H Pulse Oximetry Oxygen Delivery Method 01/20/24 10:28 01/20/24 11:46 Temperature Pulse Rate 70 70 Respiratory Rate 15 15 Blood Pressure 157/72 H Pulse Oximetry 96 Oxygen Delivery Method Room Air BMI result Body Mass Index 29.4 Labs 01/20/24 04:27 01/20/24 04:27 Labs: Laboratory Results - last 48 hr 01/19/24 01/19/24 01/19/24 07:44 07:46 08:23 WBC 9.7 RBC 4.30 Hgb 12.5 Hct 40.2 MCV 93.5 MCH 29.1 MCHC 31.1 RDW 14.6 Plt Count 392 MPV 8.6 L Immature Gran % (Auto) 0.5 H Neut % (Auto) 68.9 Lymph % (Auto) 18.1 L [place] % (Auto) 10.5 Eos % (Auto) 1.5 Baso % (Auto) 0.5 Lymph # (Auto) 1.8 [place] # (Auto) 1.0 Eos # (Auto) 0.2 Baso # (Auto) 0.1 Abs Immat Gran (auto) 0.05 H Absolute Neuts (auto) 6.7 Absolute Nucleated RBC 0.000 Nucleated RBC % (auto) 0.0 Hold Purple Top SEE NOTE Sodium 144 Potassium 4.6 Chloride 103 Carbon Dioxide 30 H Anion Gap 16 BUN 41 H Creatinine 0.94 Estim Creat Clear Calc 63.9 Estimated GFR 58 POC Glucose Random Glucose 91 Calcium 9.8 Total Bilirubin 0.3 AST 15 ALT 16 Alkaline Phosphatase 68 Troponin I High Sens 10.0 C-Reactive Protein B-Natriuretic Peptide 186 H Total Protein 7.4 Albumin 3.7 Urine Color Urine Appearance Urine pH Ur Specific [place] Urine Protein Urine Glucose (UA) Urine Ketones Urine Blood Urine Nitrite Ur Leukocyte Esterase Urine RBC Urine WBC Ur Squamous Epith Cells Urine Bacteria Hyaline Casts Influenza Type A (PCR) NEGATIVE Influenza Type B (PCR) NEGATIVE RSV RNA Qual (PCR) NEGATIVE SARS-CoV-2 RNA (RT-PCR) POSITIVE A 01/19/24 01/19/24 01/19/24 08:24 11:48 13:00 WBC RBC Hgb Hct MCV MCH MCHC RDW Plt Count MPV Immature Gran % (Auto) Neut % (Auto) Lymph % (Auto) [place] % (Auto) Eos % (Auto) Baso % (Auto) Lymph # (Auto) [place] # (Auto) Eos # (Auto) Baso # (Auto) Abs Immat Gran (auto) Absolute Neuts (auto) Absolute Nucleated RBC Nucleated RBC % (auto) Hold Purple Top Sodium Potassium Chloride Carbon Dioxide Anion Gap BUN Creatinine Estim Creat Clear Calc Estimated GFR POC Glucose 88 170 H Random Glucose Calcium Total Bilirubin AST ALT Alkaline Phosphatase Troponin I High Sens 8.1 C-Reactive Protein B-Natriuretic Peptide Total Protein Albumin Urine Color Urine Appearance Urine pH Ur Specific [place] Urine Protein Urine Glucose (UA) Urine Ketones Urine Blood Urine Nitrite Ur Leukocyte Esterase Urine RBC Urine WBC Ur Squamous Epith Cells Urine Bacteria Hyaline Casts Influenza Type A (PCR) Influenza Type B (PCR) RSV RNA Qual (PCR) SARS-CoV-2 RNA (RT-PCR) 01/19/24 01/19/24 01/20/24 18:41 21:32 04:27 WBC 12.0 H RBC 4.54 Hgb 13.1 Hct 41.0 MCV 90.3 MCH 28.9 MCHC 32.0 RDW 14.3 Plt Count 469 H MPV 8.6 L Immature Gran % (Auto) Neut % (Auto) Lymph % (Auto) [place] % (Auto) Eos % (Auto) Baso % (Auto) Lymph # (Auto) [place] # (Auto) Eos # (Auto) Baso # (Auto) Abs Immat Gran (auto) Absolute Neuts (auto) Absolute Nucleated RBC 0.000 Nucleated RBC % (auto) 0.0 Hold Purple Top Sodium 138 Potassium 4.4 Chloride 102 Carbon Dioxide 26 Anion Gap 14 BUN 33 H Creatinine 1.01 Estim Creat Clear Calc 59.5 Estimated GFR 53 POC Glucose 229 H 387 H* Random Glucose 204 H Calcium 10.3 H Total Bilirubin AST ALT Alkaline Phosphatase Troponin I High Sens C-Reactive Protein 4.35 H B-Natriuretic Peptide Total Protein Albumin Urine Color Urine Appearance Urine pH Ur Specific [place] Urine Protein Urine Glucose (UA) Urine Ketones Urine Blood Urine Nitrite Ur Leukocyte Esterase Urine RBC Urine WBC Ur Squamous Epith Cells Urine Bacteria Hyaline Casts Influenza Type A (PCR) Influenza Type B (PCR) RSV RNA Qual (PCR) SARS-CoV-2 RNA (RT-PCR) 01/20/24 01/20/24 01/20/24 06:11 07:25 12:23 WBC RBC Hgb Hct MCV MCH MCHC RDW Plt Count MPV Immature Gran % (Auto) Neut % (Auto) Lymph % (Auto) [place] % (Auto) Eos % (Auto) Baso % (Auto) Lymph # (Auto) [place] # (Auto) Eos # (Auto) Baso # (Auto) Abs Immat Gran (auto) Absolute Neuts (auto) Absolute Nucleated RBC Nucleated RBC % (auto) Hold Purple Top Sodium Potassium Chloride Carbon Dioxide Anion Gap BUN Creatinine Estim Creat Clear Calc Estimated GFR POC Glucose 228 H 226 H Random Glucose Calcium Total Bilirubin AST ALT Alkaline Phosphatase Troponin I High Sens C-Reactive Protein B-Natriuretic Peptide Total Protein Albumin Urine Color Yellow Urine Appearance Cloudy Urine pH 8.0 Ur Specific [place] 1.020 Urine Protein 100 (2+) H Urine Glucose (UA) >=1000 H Urine Ketones Negative Urine Blood Negative Urine Nitrite Negative Ur Leukocyte Esterase Negative Urine RBC 0-2 Urine WBC 0-5 Ur Squamous Epith Cells 0-2 Urine Bacteria Trace Hyaline Casts 0-2 Influenza Type A (PCR) Influenza Type B (PCR) RSV RNA Qual (PCR) SARS-CoV-2 RNA (RT-PCR) Imaging Radiology Impressions: ITS Impressions Chest X-Ray 01/19/24 06:25 IMPRESSION: No acute intrathoracic disease. Electronically signed by: Maximiliano Graham MD 01/19/2024 07:59 AM EDT RP Head CT 01/19/24 12:01 IMPRESSION: 1. No acute intracranial pathology. 2. Findings of mild ischemic small vessel disease. 3. Mild ethmoid sinus disease. Electronically signed by: Kamille Goodwin MD 01/19/2024 03:38 PM EDT RP Mental Status Exam Mental Status Exam Patient Appearance: Fatigued Patient Orientation: Person, Place, Time and Situation Level of Consciousness: Alert Patient Behavior: Appropriate, Talkative, Cooperative and Good Eye Contact Mood Description: Anxious and Apprehensive Affect Description: Anxious and Apprehensive Patient Cognition Impaired: No Ability to Follow Directions: Good Speech Pattern: Spontaneous Speech Memory Description: Intact Hallucinations: None Delusions: Not Present Thought Process: Rumination Thought Content: positive for Circumstantial and positive for Perseveration Depressive Symptoms: Increased Anxiety Judgement: Fair Medications Medications Current Medications Acetaminophen (Acetaminophen 325 Mg Tablet) 650 mg PO Q6H PRN PRN Reason: Pain, Mild (Pain Scale 1-3), fever or headache Last Admin: 01/19/24 12:25 Dose: 650 mg Albuterol/Ipratropium (Albuterol/Iprat 2.5/0.5mg 3 Ml Ampul.Neb) 3 ml INHALE RQ4H WHILE AWAKE [facility] Last Admin: 01/20/24 11:45 Dose: 3 ml Atenolol (Atenolol 50 Mg Tablet) 50 mg PO BID [facility]; Protocol Last Admin: 01/20/24 08:47 Dose: 50 mg Atorvastatin Calcium (Atorvastatin Calcium 80 Mg Tablet) 80 mg PO BEDTIME [facility] Last Admin: 01/19/24 20:20 Dose: 80 mg Baclofen (Baclofen 10 Mg Tablet) 10 mg PO TID PRN PRN Reason: muscle spasms Calcium Carbonate (Calcium Carbonate 750 Mg Tab.Chew) 750 mg PO Q4H PRN PRN Reason: Heartburn Clonazepam (Clonazepam 0.5 Mg Tablet) 0.5 mg PO BID [facility] Last Admin: 01/20/24 08:48 Dose: 0.5 mg Dexamethasone Sodium Phosphate (Dexamethasone Sod Phosphate 4 Mg/Ml Vial) 6 mg IVPUSH DAILY [facility] Last Admin: 01/20/24 08:52 Dose: 6 mg Empagliflozin (Empagliflozin 25 Mg Tablet) 25 mg PO DAILY [facility] Last Admin: 01/20/24 08:46 Dose: 25 mg Fenofibrate (Fenofibrate 160 Mg Tablet) 160 mg PO DAILY [facility] Last Admin: 01/20/24 08:46 Dose: 160 mg Fluticasone Propionate (Fluticasone Propionate Nasal 16 Gm [place]) 1 spray NOSTRIL-B DAILY [facility] Last Admin: 01/20/24 08:44 Dose: 1 spray Furosemide (Furosemide 20 Mg Tablet) 20 mg PO DAILY [facility]; Protocol Last Admin: 01/20/24 08:48 Dose: 20 mg Gabapentin (Gabapentin 300 Mg Capsule) 300 mg PO BID [facility] Last Admin: 01/20/24 08:47 Dose: 300 mg Glucose (Glucose Gel 15 Gm Gel..Gram.) 15 gm PO Q15M PRN; Protocol PRN Reason: per Hypoglycemia Standing Ord. Guaifenesin/Codeine Phosphate (Guaifen/Codeine Sf 200/20/10ml 10 Ml Liquid) 5 ml PO Q4H [facility] Last Admin: 01/20/24 11:04 Dose: 5 ml Hydroxychloroquine Sulfate (Hydroxychloroquine Sulfate 200 Mg Tablet) 200 mg PO BID [facility] Last Admin: 01/20/24 08:47 Dose: 200 mg Dextrose (D10) 250 mls @ 750 mls/hr IV Q15M PRN; Protocol PRN Reason: per Hypoglycemia Standing Ord. Remdesivir 200 mg/ Sodium (Chloride) 210 mls @ 105 mls/hr IV ONCE ONE Stop: 01/20/24 13:59 Last Admin: 01/20/24 12:25 Dose: 105 mls/hr Remdesivir 100 mg/ Sodium (Chloride) 230 mls @ 115 mls/hr IV Q24H [facility] Stop: 01/24/24 13:59 Insulin Glargine (Insulin Glargine,Hum.Rec.Anlog 100 Unit/Ml 10 Ml Vial) 12 unit SUBCUT DAILY [facility] Last Admin: 01/20/24 08:45 Dose: 12 unit Insulin Human Lispro (Insulin Lispro 100 Unit/Ml 3 Ml Vial) 0 unit SUBCUT QIDACHS [facility]; Protocol Last Admin: 01/20/24 12:59 Dose: 4 unit Lidocaine (Lidocaine 4 % Patch Adh..Patch) 1 patch TRANSDERMA DAILY PRN PRN Reason: Pain Loratadine (Loratadine 10 Mg Tablet) 10 mg PO DAILY PRN PRN Reason: allergy symptoms Losartan Potassium (Losartan Potassium 25 Mg Tablet) 25 mg PO DAILY [facility]; Protocol Last Admin: 01/20/24 08:48 Dose: 25 mg Magnesium Hydroxide (Milk Of Magnesia 30 Ml Oral.Susp) 30 ml PO DAILY PRN PRN Reason: Constipation Melatonin (Melatonin 3 Mg Tablet) 6 mg PO BEDTIME PRN PRN Reason: Insomnia Mirabegron (Mirabegron 50 Mg Tab.Er.24h) 50 mg PO DAILY [facility] Last Admin: 01/20/24 08:46 Dose: 50 mg Multivitamins/Vitamin C (Multivitamin Tablet) 1 tab PO DAILY [facility] Last Admin: 01/20/24 08:48 Dose: 1 tab Non-Formulary Medication (Ubrogepant [Ubrelvy]) 50 - 100 mg PO ONCE PRN PRN Reason: migraine headache Nystatin (Nystatin Cream 15 Gm Tube) 1 appl TOPICAL BID PRN; Protocol PRN Reason: Rash Nystatin/Triamcinolone Acetonide (Nystatin/Triamcinolone Cream 15 Gm Tube) 1 appl TOPICAL DAILY PRN PRN Reason: Itching Omeprazole (Omeprazole 40 Mg Capsule.Dr) 40 mg PO DAILY@0630 [facility] Last Admin: 01/20/24 06:10 Dose: 40 mg Oxycodone HCl (Oxycodone Hcl Immed Release 5 Mg Tablet) 5 mg PO Q4H PRN PRN Reason: Pain, Severe (Pain Scale 7-10) Rivaroxaban (Rivaroxaban 20 Mg Tablet) 20 mg PO DAILY@1700 [facility] Last Admin: 01/19/24 18:46 Dose: 20 mg Ropinirole HCl (Ropinirole Hcl 0.5 Mg Tablet) 0.5 mg PO BEDTIME [facility] Last Admin: 01/19/24 20:21 Dose: 0.5 mg Sodium Chloride (0.9 % Sodium Chloride Flush 3 Ml Syringe) 3 ml IVFLUSH QSHIFT [facility] Last Admin: 01/20/24 07:43 Dose: 3 ml Trazodone HCl (Trazodone Hcl 100 Mg Tablet) 100 mg PO BEDTIME PRN PRN Reason: sleep Venlafaxine HCl (Venlafaxine Hcl Er 37.5 Mg Cap.Er.24h) 37.5 mg PO BEDTIME [facility] Last Admin: 01/19/24 20:31 Dose: 37.5 mg Vitamin D (Cholecalciferol (Vitamin D3) 25 Mcg Tablet) 50 mcg PO MOWEFR [facility] Last Admin: 01/19/24 12:25 Dose: Not Given Allergies Allergies Allergy/AdvReac Type Severity Reaction Status Date / Time morphine [Morphine] Allergy Severe ITCHING, Verified 01/19/24 05:23 hives cefdinir Allergy Intermediate hives Verified 01/19/24 05:23 sulfamethoxazole Allergy Intermediate RASH Verified 01/19/24 05:23 trimethoprim Allergy Intermediate RASH Verified 01/19/24 05:23 duloxetine AdvReac Severe altered Verified 01/19/24 05:23 behavior Assessment & Plan Assessment & Plan (1) Mild recurrent major depression: Status: Acute Code(s): F33.0 - Major depressive disorder, recurrent, mild Plan Recurrent major depression, mild. History of medication trials with allergy to Cymbalta. Current COVID + with fatigue, malaise, myalgia, FTT, SOB, decreased ability to ambulate and progressive weakness. Pt reporting sx exacerbation of depression/anxiety. Hx of mood lability. Plan: --Increase Venlafaxine to 75 mg daily --TSH, B12, Folate, Vitamin D, Mg --Lamictal 25 mg HS Total time managing care of this patient today ____ minutes.
--- NOTE | 2024-01-20 14:17 | PC.NURSE ---
PT at bedside for eval, patient able to get up out of bed with gait belt and walker, able to take a few steps. incontinent of urine, pericare provided and linens and summer changed at this time, purewick replaced when patient returned to stretcher, all safety maitnained.
[2024-01-20] MEDS: Rivaroxaban 20 MG TABLET PO (17:39)
[2024-01-20] MEDS: oxyCODONE HCl Immed Release 5 MG TABLET PO (17:39)
[2024-01-20] MEDS: Lidocaine 4 % Patch ADH..PATCH 1 PATCH TRANSDERMA (17:39)
[2024-01-20 18:15] LABS: Magnesium 2.5 mg/dL (1.6-2.6)
[2024-01-20 18:31] LABS: Thyroid Stimulating Hormone 0.81 uIU/mL (0.32-4.0); Vitamin D 25-OH Total 45.6 ng/mL (>30)
[2024-01-20 18:53] LABS: Glucose, Whole Blood 239 mg/dL (60-115)
[2024-01-20 20:19] LABS: Folate 15.9 ng/mL (> or = 4.0); Vitamin B12 938 pg/mL (200-900)
[2024-01-20] MEDS: lamoTRIgine 25 MG TABLET PO (21:13)
[2024-01-20] MEDS: Atorvastatin Calcium 80 MG TABLET PO (21:13)
[2024-01-20] MEDS: Venlafaxine HCl ER 75 MG CAP.ER.24H PO (21:15)
[2024-01-20] MEDS: rOPINIRole HCL 0.5 MG TABLET PO (21:15)
[2024-01-20 21:18] LABS: Glucose, Whole Blood 203 mg/dL (60-115)
[2024-01-21] VITALS (11 sets, daily range): BP systolic 112–157; BP diastolic 61–92; PULSE 68–149; RESP 16–24; TEMP 35.4–36.6; O2SAT 93–99
[2024-01-21] MEDS: Acetaminophen 325 MG TABLET 650 MG PO ×2 (00:23→14:10)
[2024-01-21] MEDS: guaiFEN/Codeine SF 200/20/10ML 10 ML LIQUID 5 ML PO ×6 (00:24→23:14)
[2024-01-21] MEDS: Omeprazole 40 MG CAPSULE.DR PO (06:46)
[2024-01-21 07:09] LABS: Glucose, Whole Blood 135 mg/dL (60-115)
--- NOTE | 2024-01-21 07:13 | PC.NURSE ---
Assumed care of patient at 23:30. Please see shift assessments, tasks in worklist, and MAR for full details. Alarms on and safety measures in place. Handoff report given to oncoming RN at 07:00.
[2024-01-21] MEDS: Albuterol/Iprat 2.5/0.5MG 3 ML AMPUL.NEB INHALE ×4 (08:40→19:31)
[2024-01-21] MEDS: Gabapentin 300 MG CAPSULE PO ×2 (08:51→20:42)
[2024-01-21] MEDS: Multivitamin TABLET 1 TAB PO (08:51)
[2024-01-21] MEDS: clonazePAM 0.5 MG TABLET PO ×2 (08:51→20:42)
[2024-01-21] MEDS: Empagliflozin 25 MG TABLET PO (08:51)
[2024-01-21] MEDS: Mirabegron 50 MG TAB.ER.24H PO (08:51)
[2024-01-21] MEDS: atenoloL 50 MG TABLET PO ×2 (08:51→20:42)
[2024-01-21] MEDS: Furosemide 20 MG TABLET PO (08:51)
[2024-01-21] MEDS: Losartan Potassium 25 MG TABLET PO (08:51)
[2024-01-21] MEDS: Fenofibrate 160 MG TABLET PO (08:51)
[2024-01-21] MEDS: Insulin Glargine,Hum.rec.anlog 100 UNIT/ML 10 ML VIAL 12 UNIT SUBCUT (08:52)
[2024-01-21] MEDS: Hydroxychloroquine Sulfate 200 MG TABLET PO ×2 (08:52→20:42)
[2024-01-21] MEDS: 0.9 % Sodium Chloride Flush 3 ML SYRINGE IVFLUSH ×3 (08:52→20:43)
[2024-01-21] MEDS: dexAMETHasone sod phosphate 4 MG/ML VIAL 6 MG IVPUSH (08:53)
[2024-01-21] MEDS: Fluticasone Propionate Nasal 16 GM SPRAY 1 SPRAY NOSTRIL-B (08:53)
[2024-01-21 10:51] LABS: Glucose, Whole Blood 203 mg/dL (60-115)
--- NOTE | 2024-01-21 10:51 | MHC.CM.PN ---
EMR REVIEWED, PT W/COVID19, PER HOSPITALIST ANTIC PT WILL REMAIN INPT ONE MORE NIGHT, REF TO BE PLACED TO [facility] PER PREVIOUS CM NOTE, CM WILL CONT TO FOLLOW DC NEEDS.
[2024-01-21] MEDS: Insulin Lispro 100 UNIT/ML 3 ML VIAL SUBCUT ×3 (11:47→21:35)
[2024-01-21] MEDS: Cholecalciferol (Vitamin D3) 25 MCG TABLET 50 MCG PO (11:50)
[2024-01-21] MEDS: Calcium Carbonate 750 MG TAB.CHEW PO (11:50)
[2024-01-21] MEDS: Remdesivir 100 MG in 0.9 % Sodium Chloride 230 ML 115 MG IV (12:08)
[2024-01-21] MEDS: Metoprolol Tartrate 5 MG/5 ML VIAL IVPUSH ×2 (12:11→13:20)
--- NOTE | 2024-01-21 12:36 | HO.PM.IMPN ---
Subjective Subjective Date of Service: 01/21/24 Interval History: c/o dyspnea, weakness went into rapid AF 120s-130s around noon Review of Systems Review of Systems: Yes all other systems are reviewed and are negative Physical Exam Vital Signs: Vital Signs: Last Vital Signs Temp 97.6 F 01/21/24 11:19 Pulse 98 01/21/24 11:19 Resp 20 01/21/24 11:19 BP 112/61 01/21/24 11:19 Pulse Ox 95 01/21/24 11:19 O2 Del Method Room Air 01/21/24 11:19 BMI result Body Mass Index 29.4 Gen: in no acute distress HEENT: sclera anicteric, moist mucus membranes Neck: supple Lungs: clear to auscultation bilaterally Heart: regular rate and rhythm, no murmurs Abd: soft, non-tender, non-distended Ext: no edema Skin: warm/well-perfused Neuro: alert and oriented x3, no focal findings Psych: appropriate affect Objective Data Active Medications Acetaminophen (Acetaminophen 325 Mg Tablet) 650 mg PO Q6H PRN PRN Reason: Pain, Mild (Pain Scale 1-3), fever or headache Last Admin: 01/21/24 00:23 Dose: 650 mg Documented By: MARILUZ Albuterol/Ipratropium (Albuterol/Iprat 2.5/0.5mg 3 Ml Ampul.Neb) 3 ml INHALE RQ4H WHILE AWAKE [facility], [facility] Last Admin: 01/21/24 11:51 Dose: 3 ml Documented By: MARICHUY Atenolol (Atenolol 50 Mg Tablet) 50 mg PO BID [facility], [facility]; Protocol Last Admin: 01/21/24 08:51 Dose: 50 mg Documented By: TRINY Atorvastatin Calcium (Atorvastatin Calcium 80 Mg Tablet) 80 mg PO BEDTIME [facility], [facility]1983 Last Admin: 01/20/24 21:13 Dose: 80 mg Documented By: ALMAS Baclofen (Baclofen 10 Mg Tablet) 10 mg PO TID PRN PRN Reason: muscle spasms Calcium Carbonate (Calcium Carbonate 750 Mg Tab.Chew) 750 mg PO Q4H PRN PRN Reason: Heartburn Last Admin: 01/21/24 11:50 Dose: 750 mg Documented By: TRINY Clonazepam (Clonazepam 0.5 Mg Tablet) 0.5 mg PO BID [facility], [facility] Last Admin: 01/21/24 08:51 Dose: 0.5 mg Documented By: TRINY Dexamethasone Sodium Phosphate (Dexamethasone Sod Phosphate 4 Mg/Ml Vial) 6 mg IVPUSH DAILY [facility], [facility]–1983 Last Admin: 01/21/24 08:53 Dose: 6 mg Documented By: TRINY Empagliflozin (Empagliflozin 25 Mg Tablet) 25 mg PO DAILY [facility], [facility] Last Admin: 01/21/24 08:51 Dose: 25 mg Documented By: TRINY Fenofibrate (Fenofibrate 160 Mg Tablet) 160 mg PO DAILY [facility], [facility] Last Admin: 01/21/24 08:51 Dose: 160 mg Documented By: TRINY Fluticasone Propionate (Fluticasone Propionate Nasal 16 Gm [place]) 1 spray NOSTRIL-B DAILY [facility], [facility] Last Admin: 01/21/24 08:53 Dose: 1 spray Documented By: TRINY Furosemide (Furosemide 20 Mg Tablet) 20 mg PO DAILY [facility], [facility]; Protocol Last Admin: 01/21/24 08:51 Dose: 20 mg Documented By: TRINY Gabapentin (Gabapentin 300 Mg Capsule) 300 mg PO BID [facility], [facility]1983 Last Admin: 01/21/24 08:51 Dose: 300 mg Documented By: TRINY Glucose (Glucose Gel 15 Gm Gel..Gram.) 15 gm PO Q15M PRN; Protocol PRN Reason: per Hypoglycemia Standing Ord. Guaifenesin/Codeine Phosphate (Guaifen/Codeine Sf 200/20/10ml 10 Ml Liquid) 5 ml PO Q4H [facility], [facility] Last Admin: 01/21/24 08:52 Dose: 5 ml Documented By: TRINY Hydroxychloroquine Sulfate (Hydroxychloroquine Sulfate 200 Mg Tablet) 200 mg PO BID [facility], [facility]1983 Last Admin: 01/21/24 08:52 Dose: 200 mg Documented By: TRINY Dextrose (D10) 250 mls @ 750 mls/hr IV Q15M PRN; Protocol PRN Reason: per Hypoglycemia Standing Ord. Remdesivir 100 mg/ Sodium (Chloride) 230 mls @ 115 mls/hr IV Q24H [facility], [facility]1983 Stop: 01/24/24 13:59 Last Admin: 01/21/24 12:08 Dose: 115 mls/hr Documented By: TRINY Insulin Glargine (Insulin Glargine,Hum.Rec.Anlog 100 Unit/Ml 10 Ml Vial) 12 unit SUBCUT DAILY [facility], [facility]1983 Last Admin: 01/21/24 08:52 Dose: 12 unit Documented By: TRINY Insulin Human Lispro (Insulin Lispro 100 Unit/Ml 3 Ml Vial) 0 unit SUBCUT QIDACHS [facility], 1928–1983; Protocol Last Admin: 01/21/24 11:47 Dose: 4 unit Documented By: TRINY Lamotrigine (Lamotrigine 25 Mg Tablet) 25 mg PO BEDTIME [facility], [facility]1983 Last Admin: 01/20/24 21:13 Dose: 25 mg Documented By: ALMAS Lidocaine (Lidocaine 4 % Patch Adh..Patch) 1 patch TRANSDERMA DAILY PRN PRN Reason: Pain Last Admin: 01/20/24 17:39 Dose: 1 patch Documented By: CORNELIO Loratadine (Loratadine 10 Mg Tablet) 10 mg PO DAILY PRN PRN Reason: allergy symptoms Losartan Potassium (Losartan Potassium 25 Mg Tablet) 25 mg PO DAILY [facility], [facility]; Protocol Last Admin: 01/21/24 08:51 Dose: 25 mg Documented By: TRINY Magnesium Hydroxide (Milk Of Magnesia 30 Ml Oral.Susp) 30 ml PO DAILY PRN PRN Reason: Constipation Melatonin (Melatonin 3 Mg Tablet) 6 mg PO BEDTIME PRN PRN Reason: Insomnia Mirabegron (Mirabegron 50 Mg Tab.Er.24h) 50 mg PO DAILY [facility], [facility]1983 Last Admin: 01/21/24 08:51 Dose: 50 mg Documented By: TRINY Multivitamins/Vitamin C (Multivitamin Tablet) 1 tab PO DAILY [facility], [facility] Last Admin: 01/21/24 08:51 Dose: 1 tab Documented By: TRINY Nystatin (Nystatin Cream 15 Gm Tube) 1 appl TOPICAL BID PRN; Protocol PRN Reason: Rash Nystatin/Triamcinolone Acetonide (Nystatin/Triamcinolone Cream 15 Gm Tube) 1 appl TOPICAL DAILY PRN PRN Reason: Itching Omeprazole (Omeprazole 40 Mg Capsule.) 40 mg PO DAILY@0630 [facility], [facility] Last Admin: 01/21/24 06:46 Dose: 40 mg Documented By: MARILUZ Oxycodone HCl (Oxycodone Hcl Immed Release 5 Mg Tablet) 5 mg PO Q4H PRN PRN Reason: Pain, Severe (Pain Scale 7-10) Last Admin: 01/20/24 17:39 Dose: 5 mg Documented By: CORNELIO Rivaroxaban (Rivaroxaban 20 Mg Tablet) 20 mg PO DAILY@1700 [facility], [facility]1983 Last Admin: 01/20/24 17:39 Dose: 20 mg Documented By: CORNELIO Ropinirole HCl (Ropinirole Hcl 0.5 Mg Tablet) 0.5 mg PO BEDTIME [facility], [facility]1983 Last Admin: 01/20/24 21:15 Dose: 0.5 mg Documented By: ALMAS Sodium Chloride (0.9 % Sodium Chloride Flush 3 Ml Syringe) 3 ml IVFLUSH QSHIFT [facility], [facility] Last Admin: 01/21/24 08:52 Dose: 3 ml Documented By: TRINY Trazodone HCl (Trazodone Hcl 100 Mg Tablet) 100 mg PO BEDTIME PRN PRN Reason: sleep Venlafaxine HCl (Venlafaxine Hcl Er 75 Mg Cap.Er.24h) 75 mg PO BEDTIME [facility], [facility] Last Admin: 01/20/24 21:15 Dose: 75 mg Documented By: ALMAS Vitamin D (Cholecalciferol (Vitamin D3) 25 Mcg Tablet) 50 mcg PO MOWEFR [facility], [facility] Last Admin: 01/21/24 11:50 Dose: 50 mcg Documented By: TRINY Labs 01/20/24 04:27 01/20/24 04:27 Labs: Laboratory Results - last 24 hr 01/20/24 01/20/24 01/20/24 17:47 18:49 21:14 POC Glucose 239 H 203 H Magnesium 2.5 Vitamin B12 938 H 25-OH Vitamin D Total 45.6 Folate 15.9 TSH 0.81 01/21/24 01/21/24 06:59 10:45 POC Glucose 135 H 203 H Magnesium Vitamin B12 25-OH Vitamin D Total Folate TSH Assessment and Plan (1) COVID-19: Status: Acute Plan d3 72yo F with DM2, HTN, pAF on rivaroxaban, CAD, mood disorder, HFpEF, hx CVA, DM retinopathy, PPM admitted for Covid-19 infection with exertional hypoxia + significant weakness Covid-19 infection with exertional hypoxia - dexamethasone 01/18-01/27, remdesivir 01/19-01/23; monitor oxygenation + CRP; isolation precautions pAF/RVR - will give 1 dose IV metoprolol - continue rivaroxaban + atenolol - has PPM chronic HFpEF HTN CAD - continue atenolol, losartan, furosemide, empagliflozin, atorvastatin mood disorder - continue clonazepam, venlafaxine; Psych consulted for worsening anxiety/depression and increased venlafaxine and started lamotrigine OAB - continue mirabegron RLS - continue ropinirole DM2 with steroid-induced hyperglycemia - increased basal-bolus insulin; continue empagliflozin ?RA - continue hydroxychloroquine VTE ppx - rivaroxaban weakness - PT eval; required 3-person assist in ED [baseline = ambulatory with walker]; recommend STR dispo - STR In my clinical judgment, the patient requires continued inpatient hospitalization for the following reasons: AF/RVR Total time managing care of this patient today: 40 minutes. Quality Stroke Does the patient have a stroke diagnosis?: No VTE Prior VTE?: No VTE Risk Level:: Medical - moderate - high VTE Device Contraindication: Treatment Not Indicated VTE Drug Contraindication: N/A - Med Ordered
[2024-01-21] MEDS: Magnesium Hydrox/Alum Hydrox 30 ML ORAL.SUSP PO (14:10)
[2024-01-21] MEDS: dilTIAZem HCL 50 MG/10 ML VIAL 15 MG IVPUSH (14:39)
[2024-01-21 15:58] LABS: Glucose, Whole Blood 206 mg/dL (60-115)
[2024-01-21] MEDS: Rivaroxaban 20 MG TABLET PO (17:06)
[2024-01-21] MEDS: rOPINIRole HCL 0.5 MG TABLET PO (20:42)
[2024-01-21] MEDS: Venlafaxine HCl ER 75 MG CAP.ER.24H PO (20:42)
[2024-01-21] MEDS: lamoTRIgine 25 MG TABLET PO (20:43)
[2024-01-21] MEDS: Atorvastatin Calcium 80 MG TABLET PO (20:43)
[2024-01-21 21:43] LABS: Glucose, Whole Blood 215 mg/dL (60-115)
[2024-01-22] VITALS (8 sets, daily range): BP systolic 128–160; BP diastolic 60–90; PULSE 65–76; RESP 16–20; TEMP 35.9–36.7; O2SAT 92–100
[2024-01-22] MEDS: diphenhydrAMINE HCL 25 MG CAPSULE PO (01:28)
[2024-01-22] MEDS: guaiFEN/Codeine SF 200/20/10ML 10 ML LIQUID 5 ML PO ×3 (03:51→14:34)
[2024-01-22] MEDS: Omeprazole 40 MG CAPSULE.DR PO (06:01)
[2024-01-22 06:59] LABS: Hematocrit 41.3 % (37.0-47.0); Hemoglobin 13.8 g/dl (12.0-16.0); Mean Corpuscular HGB Conc 33.4 g/dl (31.0-35.0); Mean Corpuscular Hemoglobin 29.3 pg (27.0-33.0); Mean Corpuscular Volume 87.7 fL (80.0-98.0); Mean Platelet Volume 8.8 fL (9.4-12.3); Platelet Count 365 X10*3/uL (160-400); Red Blood Count 4.71 X10*6/uL (4.20-5.50); Red Cell Distribution Width 14.1 % (11.0-16.0); White Blood Count 9.4 X10*3/uL (4.8-10.8)
[2024-01-22 07:14] LABS: Glucose, Whole Blood 125 mg/dL (60-115)
[2024-01-22 07:19] LABS: Alanine Aminotransferase 18 U/L (0-31); Albumin Level 3.5 g/dL (3.5-5.0); Alkaline Phosphatase 58 U/L (39-117); Anion Gap 16 (12-20); Aspartate Amino Transferase 19 U/L (5-31); Bilirubin Direct 0.2 mg/dL (0.0-0.5); Bilirubin Total 0.4 mg/dL (0.0-1.0); Blood Urea Nitrogen 30 mg/dL (9-16); C Reactive Protein 6.61 mg/dL (< or = 0.50); Calcium 10.3 mg/dL (8.4-10.2); Carbon Dioxide 23 mmol/L (22-29); Chloride 99 mmol/L (96-108); Creatinine Clr Calc Pharmacy 76.1; Estimated Glomerular Filt Rate > 60; Glucose Random 132 mg/dL (60-115); Potassium 3.9 mmol/L (3.3-5.1); Sodium 134 mmol/L (135-145); Total Protein 7.2 g/dL (6.5-8.0)
[2024-01-22] MEDS: Albuterol/Iprat 2.5/0.5MG 3 ML AMPUL.NEB INHALE ×2 (07:53→15:11)
--- NOTE | 2024-01-22 10:26 | P.PNIM_ITS ---
Subjective Subjective Date of Service: 01/22/24 Interval History: converted to NSR yesterday around 3pm feels weak dyspnea improved Review of Systems Review of Systems: Yes all other systems are reviewed and are negative Physical Exam 2 Vital Signs: Vital Signs: Last Vital Signs Temp 96.9 F 01/22/24 07:28 Pulse 76 01/22/24 07:55 Resp 16 01/22/24 07:55 BP 140/90 H 01/22/24 07:28 Pulse Ox 95 01/22/24 07:28 O2 Del Method Room Air 01/22/24 07:28 BMI result Body Mass Index 29.4 Gen: in no acute distress HEENT: sclera anicteric, moist mucus membranes Neck: supple Lungs: clear to auscultation bilaterally Heart: regular rate and rhythm, no murmurs Abd: soft, non-tender, non-distended Ext: no edema Skin: warm/well-perfused Neuro: alert and oriented x3, no focal findings Psych: appropriate affect Objective Data Active Medications Acetaminophen (Acetaminophen 325 Mg Tablet) 650 mg PO Q6H PRN PRN Reason: Pain, Mild (Pain Scale 1-3), fever or headache Last Admin: 01/21/24 14:10 Dose: 650 mg Documented By: TRINY Al Hydroxide/Mg Hydroxide (Magnesium Hydrox/Alum Hydrox 30 Ml Oral.Susp) 30 ml PO Q4H PRN PRN Reason: heart burn Last Admin: 01/21/24 14:10 Dose: 30 ml Documented By: TRINY Albuterol/Ipratropium (Albuterol/Iprat 2.5/0.5mg 3 Ml Ampul.Neb) 3 ml INHALE RQ4H WHILE AWAKE [facility] Last Admin: 01/22/24 07:53 Dose: 3 ml Documented By: MELVIN Atenolol (Atenolol 50 Mg Tablet) 50 mg PO BID [facility]; Protocol Last Admin: 01/21/24 20:42 Dose: 50 mg Documented By: RYLAN Atorvastatin Calcium (Atorvastatin Calcium 80 Mg Tablet) 80 mg PO BEDTIME [facility] Last Admin: 01/21/24 20:43 Dose: 80 mg Documented By: RYLAN Baclofen (Baclofen 10 Mg Tablet) 10 mg PO TID PRN PRN Reason: muscle spasms Calcium Carbonate (Calcium Carbonate 750 Mg Tab.Chew) 750 mg PO Q4H PRN PRN Reason: Heartburn Last Admin: 01/21/24 11:50 Dose: 750 mg Documented By: TRINY Clonazepam (Clonazepam 0.5 Mg Tablet) 0.5 mg PO BID [facility] Last Admin: 01/21/24 20:42 Dose: 0.5 mg Documented By: RYLAN Dexamethasone Sodium Phosphate (Dexamethasone Sod Phosphate 4 Mg/Ml Vial) 6 mg IVPUSH DAILY [facility] Last Admin: 01/21/24 08:53 Dose: 6 mg Documented By: TRINY Diphenhydramine HCl (Diphenhydramine Hcl 25 Mg Capsule) 25 mg PO Q6H PRN PRN Reason: Itching Last Admin: 01/22/24 01:28 Dose: 25 mg Documented By: RYLAN Empagliflozin (Empagliflozin 25 Mg Tablet) 25 mg PO DAILY [facility] Last Admin: 01/21/24 08:51 Dose: 25 mg Documented By: TRINY Fenofibrate (Fenofibrate 160 Mg Tablet) 160 mg PO DAILY [facility] Last Admin: 01/21/24 08:51 Dose: 160 mg Documented By: TRINY Fluticasone Propionate (Fluticasone Propionate Nasal 16 Gm [place]) 1 spray NOSTRIL-B DAILY [facility] Last Admin: 01/21/24 08:53 Dose: 1 spray Documented By: TRINY Furosemide (Furosemide 20 Mg Tablet) 20 mg PO DAILY [facility]; Protocol Last Admin: 01/21/24 08:51 Dose: 20 mg Documented By: TRINY Gabapentin (Gabapentin 300 Mg Capsule) 300 mg PO BID [facility] Last Admin: 01/21/24 20:42 Dose: 300 mg Documented By: RYLAN Glucose (Glucose Gel 15 Gm Gel..Gram.) 15 gm PO Q15M PRN; Protocol PRN Reason: per Hypoglycemia Standing Ord. Guaifenesin/Codeine Phosphate (Guaifen/Codeine Sf 200/20/10ml 10 Ml Liquid) 5 ml PO Q4H [facility] Last Admin: 01/22/24 03:51 Dose: 5 ml Documented By: RYLAN Hydroxychloroquine Sulfate (Hydroxychloroquine Sulfate 200 Mg Tablet) 200 mg PO BID [facility] Last Admin: 01/21/24 20:42 Dose: 200 mg Documented By: RYLAN Dextrose (D10) 250 mls @ 750 mls/hr IV Q15M PRN; Protocol PRN Reason: per Hypoglycemia Standing Ord. Remdesivir 100 mg/ Sodium (Chloride) 230 mls @ 115 mls/hr IV Q24H [facility] Stop: 01/24/24 13:59 Last Infusion: 01/21/24 14:22 Dose: Infused Documented By: TRINY Insulin Glargine (Insulin Glargine,Hum.Rec.Anlog 100 Unit/Ml 10 Ml Vial) 12 unit SUBCUT DAILY [facility] Last Admin: 01/21/24 08:52 Dose: 12 unit Documented By: TRINY Insulin Human Lispro (Insulin Lispro 100 Unit/Ml 3 Ml Vial) 0 unit SUBCUT QIDACHS [facility]; Protocol Last Admin: 01/21/24 21:35 Dose: 4 unit Documented By: RYLAN Lamotrigine (Lamotrigine 25 Mg Tablet) 25 mg PO BEDTIME [facility] Last Admin: 01/21/24 20:43 Dose: 25 mg Documented By: RYLAN Lidocaine (Lidocaine 4 % Patch Adh..Patch) 1 patch TRANSDERMA DAILY PRN PRN Reason: Pain Last Admin: 01/20/24 17:39 Dose: 1 patch Documented By: CORNELIO Loratadine (Loratadine 10 Mg Tablet) 10 mg PO DAILY PRN PRN Reason: allergy symptoms Losartan Potassium (Losartan Potassium 25 Mg Tablet) 25 mg PO DAILY [facility]; Protocol Last Admin: 01/21/24 08:51 Dose: 25 mg Documented By: TRINY Magnesium Hydroxide (Milk Of Magnesia 30 Ml Oral.Susp) 30 ml PO DAILY PRN PRN Reason: Constipation Melatonin (Melatonin 3 Mg Tablet) 6 mg PO BEDTIME PRN PRN Reason: Insomnia Mirabegron (Mirabegron 50 Mg Tab.Er.24h) 50 mg PO DAILY [facility] Last Admin: 01/21/24 08:51 Dose: 50 mg Documented By: TRINY Multivitamins/Vitamin C (Multivitamin Tablet) 1 tab PO DAILY [facility] Last Admin: 01/21/24 08:51 Dose: 1 tab Documented By: TRINY Nystatin (Nystatin Cream 15 Gm Tube) 1 appl TOPICAL BID PRN; Protocol PRN Reason: Rash Nystatin/Triamcinolone Acetonide (Nystatin/Triamcinolone Cream 15 Gm Tube) 1 appl TOPICAL DAILY PRN PRN Reason: Itching Omeprazole (Omeprazole 40 Mg Capsule.Dr) 40 mg PO DAILY@0630 [facility] Last Admin: 01/22/24 06:01 Dose: 40 mg Documented By: RYLAN Oxycodone HCl (Oxycodone Hcl Immed Release 5 Mg Tablet) 5 mg PO Q4H PRN PRN Reason: Pain, Severe (Pain Scale 7-10) Last Admin: 01/20/24 17:39 Dose: 5 mg Documented By: CORNELIO Rivaroxaban (Rivaroxaban 20 Mg Tablet) 20 mg PO DAILY@1700 [facility] Last Admin: 01/21/24 17:06 Dose: 20 mg Documented By: TRINY Ropinirole HCl (Ropinirole Hcl 0.5 Mg Tablet) 0.5 mg PO BEDTIME [facility] Last Admin: 01/21/24 20:42 Dose: 0.5 mg Documented By: RYLAN Sodium Chloride (0.9 % Sodium Chloride Flush 3 Ml Syringe) 3 ml IVFLUSH QSHIFT [facility] Last Admin: 01/21/24 20:43 Dose: 3 ml Documented By: RYLAN Trazodone HCl (Trazodone Hcl 100 Mg Tablet) 100 mg PO BEDTIME PRN PRN Reason: sleep Venlafaxine HCl (Venlafaxine Hcl Er 75 Mg Cap.Er.24h) 75 mg PO BEDTIME [facility] Last Admin: 01/21/24 20:42 Dose: 75 mg Documented By: RYLAN Vitamin D (Cholecalciferol (Vitamin D3) 25 Mcg Tablet) 50 mcg PO MOWEFR [facility] Last Admin: 01/21/24 11:50 Dose: 50 mcg Documented By: TRINY Labs 01/22/24 06:47 01/22/24 06:47 Labs: Laboratory Results - last 24 hr 01/21/24 01/21/24 01/21/24 10:45 15:33 21:23 MCV MCH MCHC RDW Plt Count MPV Absolute Nucleated RBC Nucleated RBC % (auto) Anion Gap Estim Creat Clear Calc Estimated GFR POC Glucose 203 H 206 H 215 H Random Glucose Calcium Total Bilirubin Direct Bilirubin AST ALT Alkaline Phosphatase C-Reactive Protein Total Protein Albumin 01/22/24 01/22/24 06:47 07:06 MCV 87.7 MCH 29.3 MCHC 33.4 RDW 14.1 Plt Count 365 MPV 8.8 L Absolute Nucleated RBC 0.000 Nucleated RBC % (auto) 0.0 Anion Gap 16 Estim Creat Clear Calc 76.1 Estimated GFR > 60 POC Glucose 125 H Random Glucose 132 H Calcium 10.3 H Total Bilirubin 0.4 Direct Bilirubin 0.2 AST 19 ALT 18 Alkaline Phosphatase 58 C-Reactive Protein 6.61 H Total Protein 7.2 Albumin 3.5 Assessment and Plan (1) COVID-19: Status: Acute Plan d4 72yo F with DM2, HTN, pAF on rivaroxaban, CAD, mood disorder, HFpEF, hx CVA, DM retinopathy, PPM admitted for Covid-19 infection with exertional hypoxia + significant weakness Covid-19 infection with exertional hypoxia - dexamethasone 01/18-01/27, remdesivir 01/19-01/23; monitor oxygenation + CRP; isolation precautions pAF/RVR - got IV metoprolol 5 mg x2 yesterday + IV diltiazem 15 mg, now in NSR - continue rivaroxaban + atenolol - has PPM chronic HFpEF HTN CAD - continue atenolol, losartan, furosemide, empagliflozin, atorvastatin mood disorder - continue clonazepam, venlafaxine; Psych consulted for worsening anxiety/depression and increased venlafaxine and started lamotrigine OAB - continue mirabegron RLS - continue ropinirole DM2 with steroid-induced hyperglycemia - increased basal-bolus insulin; continue empagliflozin ?RA - continue hydroxychloroquine VTE ppx - rivaroxaban weakness - PT eval; required 3-person assist in ED [baseline = ambulatory with walker]; recommend STR dispo - STR In my clinical judgment, the patient requires continued inpatient hospitalization for the following reasons: placement Total time managing care of this patient today: 40 minutes. Quality Stroke Does the patient have a stroke diagnosis?: No VTE Prior VTE?: No VTE Risk Level:: Medical - moderate - high VTE Device Contraindication: Treatment Not Indicated VTE Drug Contraindication: N/A - Med Ordered
[2024-01-22] MEDS: Insulin Glargine,Hum.rec.anlog 100 UNIT/ML 10 ML VIAL 12 UNIT SUBCUT (11:01)
[2024-01-22] MEDS: Gabapentin 300 MG CAPSULE PO (11:02)
[2024-01-22] MEDS: Multivitamin TABLET 1 TAB PO (11:02)
[2024-01-22] MEDS: Hydroxychloroquine Sulfate 200 MG TABLET PO (11:02)
[2024-01-22] MEDS: Losartan Potassium 25 MG TABLET PO (11:02)
[2024-01-22] MEDS: Fenofibrate 160 MG TABLET PO (11:02)
[2024-01-22] MEDS: Furosemide 20 MG TABLET PO (11:02)
[2024-01-22] MEDS: Empagliflozin 25 MG TABLET PO (11:02)
[2024-01-22] MEDS: clonazePAM 0.5 MG TABLET PO (11:02)
[2024-01-22] MEDS: Mirabegron 50 MG TAB.ER.24H PO (11:02)
[2024-01-22] MEDS: 0.9 % Sodium Chloride Flush 3 ML SYRINGE IVFLUSH (11:03)
[2024-01-22] MEDS: dexAMETHasone sod phosphate 4 MG/ML VIAL 6 MG IVPUSH (11:06)
[2024-01-22] MEDS: atenoloL 50 MG TABLET PO (11:06)
[2024-01-22] MEDS: Fluticasone Propionate Nasal 16 GM SPRAY 1 SPRAY NOSTRIL-B (11:07)
[2024-01-22 11:22] LABS: Glucose, Whole Blood 188 mg/dL (60-115)
--- NOTE | 2024-01-22 11:54 | MHC.CM.PN ---
IMM 01/22/24 DELIVERED TO BEDSIDE, PT WILL BE MEDICALLY CLEARED FOR DC TO [facility] FOR BLS TRANSPORT
[2024-01-22] MEDS: Insulin Lispro 100 UNIT/ML 3 ML VIAL SUBCUT (12:12)
[2024-01-22] MEDS: Remdesivir 100 MG in 0.9 % Sodium Chloride 230 ML 115 MG IV (12:12)
--- NOTE | 2024-01-22 12:44 | PM.DS ---
DS: Providers Provider Date of Service: 01/22/24 Date of admission: 01/19/24 10:49 Date of discharge: 01/22/24 Primary care physician: Marla Bray MD Consults: 01/20/24 07:40 Consult to Psychiatry Routine Consulting Provider: Psych Covering Reason for consultation: worsening depression/anxiety w/o SI DS: Diagnosis Discharge Diagnosis (1) COVID-19: Status: Acute (2) Hypoxia: Status: Acute (3) Atrial fibrillation with rapid ventricular response: Status: Resolved (4) Depression: Status: Acute DS: Summary Hospital Course Hospital Course: From the history and physical by the admitting hospitalist, RIOS Edwards, 01/19/24: 72-year-old female with pertinent history of insulin-dependent diabetes mellitus, essential hypertension, paroxysmal atrial fibrillation on Xarelto, CAD, mood disorder, HFpEF, history of CVA?, diabetic retinopathy, pacemaker in place presented to the ED earlier today for evaluation of significant weakness, productive cough with yellow/green sputum production, and dyspnea. She tested positive for COVID-19 on 5 days ago at [facility] where she tells me she hit her head rather hard without LOC and since then has had new blurred L peripheral vision. NO loss of vision, painful vision. She has had several falls despite walker use, last was several days ago. She is on xarelto. While in the ED, required 3 person assist to get out of bed and was unable to ambulate due to weakness in her legs. She desatruated to 87% upon standing. Vitals otherwise stable, afebrile, no hypoxia at rest. No leukocytosis or anemia. Renal function and lytes wnl. BNP 186. Positive for COVID 19. CXR negative for pneumonia. EKG shows sinus rhythm with 1st degree av block, previously had atrial paced rhythm, but controlled rate at 70. In the ED, given updraft with limited improvement. She was prescribed paxlovid on 01/13 72yo F with DM2, HTN, pAF on rivaroxaban, CAD, mood disorder, HFpEF, hx CVA, DM retinopathy, and PPM was admitted to the telemetry unit for Covid-19 infection with exertional hypoxia + significant weakness. She was treated with dexamethasone for 4 days and remdesivir for 3 days. She did not have hypoxia at rest. Her symptoms gradually improved. She did have a brief episode of AF/RVR that terminated after IV metoprolol and diltiazem; atenolol and rivaroxaban were conitnued. Psychiatry was consulted due to worsening anxiety and depression and increased venlafaxine and added lamotrigine at . She was seen by Physical Therapy and transfer to short-term rehabilitation was recommended. Time Attestation Discharge Coordination Time (in mins): 40 Quality: Safe Use of Opioids Does Pt have an Active Cancer Diagnosis on the Problem List?: No Quality: Stroke Does the patient have a stroke diagnosis?: No Physical Exam Vital Signs: Vital Signs: Last Vital Signs Temp 97.6 F 01/22/24 11:25 Pulse 65 01/22/24 11:25 Resp 18 01/22/24 11:25 BP 128/60 01/22/24 11:25 Pulse Ox 98 01/22/24 11:25 O2 Del Method Room Air 01/22/24 11:25 BMI result Body Mass Index 29.4 Gen: in no acute distress HEENT: sclera anicteric, moist mucus membranes Neck: supple Lungs: clear to auscultation bilaterally Heart: regular rate and rhythm, no murmurs Abd: soft, non-tender, non-distended Ext: no edema Skin: warm/well-perfused Neuro: alert and oriented x3, no focal findings Psych: appropriate affect DS: Data Data Completed and Pending Completed studies during hospitalization [Text1]: Laboratory Results WBC 9.4 X10*3/uL (4.8-10.8) 01/22/24 06:47 RBC 4.71 X10*6/uL (4.20-5.50) 01/22/24 06:47 Hgb 13.8 g/dl (12.0-16.0) 01/22/24 06:47 Hct 41.3 % (37.0-47.0) 01/22/24 06:47 MCV 87.7 fL (80.0-98.0) 01/22/24 06:47 MCH 29.3 pg (27.0-33.0) 01/22/24 06:47 MCHC 33.4 g/dl (31.0-35.0) 01/22/24 06:47 RDW 14.1 % (11.0-16.0) 01/22/24 06:47 Plt Count 365 X10*3/uL (160-400) 01/22/24 06:47 MPV 8.8 fL (9.4-12.3) L 01/22/24 06:47 Immature Gran % (Auto) 0.5 % (0.0-0.4) H 01/19/24 07:46 Neut % (Auto) 68.9 % (45-73) 01/19/24 07:46 Lymph % (Auto) 18.1 % (20-40) L 01/19/24 07:46 [place] % (Auto) 10.5 % (2-11) 01/19/24 07:46 Eos % (Auto) 1.5 % (0-4) 01/19/24 07:46 Baso % (Auto) 0.5 % (0-2) 01/19/24 07:46 Lymph # (Auto) 1.8 X10*3/uL (1.2-4.9) 01/19/24 07:46 [place] # (Auto) 1.0 X10*3/uL (0.1-1.2) 01/19/24 07:46 Eos # (Auto) 0.2 X10*3/uL (0.0-0.4) 01/19/24 07:46 Baso # (Auto) 0.1 X10*3/uL (0.0-0.2) 01/19/24 07:46 Abs Immat Gran (auto) 0.05 X10*3/uL (0.00-0.03) H 01/19/24 07:46 Absolute Neuts (auto) 6.7 x10*3/uL (2.0-8.3) 01/19/24 07:46 Absolute Nucleated RBC 0.000 X10*3/uL (0.0-0.012) 01/22/24 06:47 Nucleated RBC % (auto) 0.0 /100WBC (0.0-0.2) 01/22/24 06:47 Hold Purple Top SEE NOTE 01/19/24 07:46 Sodium 134 mmol/L (135-145) L 01/22/24 06:47 Potassium 3.9 mmol/L (3.3-5.1) 01/22/24 06:47 Chloride 99 mmol/L (96-108) 01/22/24 06:47 Carbon Dioxide 23 mmol/L (22-29) 01/22/24 06:47 Anion Gap 16 (12-20) 01/22/24 06:47 BUN 30 mg/dL (9-16) H 01/22/24 06:47 Creatinine 0.79 mg/dL (0.5-1.4) 01/22/24 06:47 Estim Creat Clear Calc 76.1 01/22/24 06:47 Estimated GFR > 60 01/22/24 06:47 POC Glucose 188 mg/dL (60-115) H 01/22/24 11:05 Random Glucose 132 mg/dL (60-115) H 01/22/24 06:47 Calcium 10.3 mg/dL (8.4-10.2) H 01/22/24 06:47 Magnesium 2.5 mg/dL (1.6-2.6) 01/20/24 17:47 Total Bilirubin 0.4 mg/dL (0.0-1.0) 01/22/24 06:47 Direct Bilirubin 0.2 mg/dL (0.0-0.5) 01/22/24 06:47 AST 19 U/L (5-31) 01/22/24 06:47 ALT 18 U/L (0-31) 01/22/24 06:47 Alkaline Phosphatase 58 U/L (39-117) 01/22/24 06:47 Troponin I High Sens 8.1 ng/L (<3.5-17.0) 01/19/24 11:48 C-Reactive Protein 6.61 mg/dL (< or = 0.50) H 01/22/24 06:47 B-Natriuretic Peptide 186 pg/mL (<100) H 01/19/24 07:44 Total Protein 7.2 g/dL (6.5-8.0) 01/22/24 06:47 Albumin 3.5 g/dL (3.5-5.0) 01/22/24 06:47 Vitamin B12 938 pg/mL (200-900) H 01/20/24 17:47 25-OH Vitamin D Total 45.6 ng/mL (>30) 01/20/24 17:47 Folate 15.9 ng/mL (> or = 4.0) 01/20/24 17:47 TSH 0.81 uIU/mL (0.32-4.0) 01/20/24 17:47 Urine Color Yellow 01/20/24 06:11 Urine Appearance Cloudy 01/20/24 06:11 Urine pH 8.0 (5.0-9.0) 01/20/24 06:11 Ur Specific [place] 1.020 (1.005-1.025) 01/20/24 06:11 Urine Protein 100 (2+) mg/dL (Neg-Trace) H 01/20/24 06:11 Urine Glucose (UA) >=1000 mg/dL (Negative) H 01/20/24 06:11 Urine Ketones Negative mg/dL (Negative) 01/20/24 06:11 Urine Blood Negative (Negative) 01/20/24 06:11 Urine Nitrite Negative (Negative) 01/20/24 06:11 Ur Leukocyte Esterase Negative (Negative) 01/20/24 06:11 Urine RBC 0-2 /HPF (0-2) 01/20/24 06:11 Urine WBC 0-5 /HPF (0-5) 01/20/24 06:11 Ur Squamous Epith Cells 0-2 /HPF (0-2) 01/20/24 06:11 Urine Bacteria Trace (None Seen) 01/20/24 06:11 Hyaline Casts 0-2 /LPF (0-2) 01/20/24 06:11 Influenza Type A (PCR) NEGATIVE (Negative) 01/19/24 08:23 Influenza Type B (PCR) NEGATIVE (Negative) 01/19/24 08:23 RSV RNA Qual (PCR) NEGATIVE (Negative) 01/19/24 08:23 SARS-CoV-2 RNA (RT-PCR) POSITIVE (Negative) A 01/19/24 08:23 Impressions Chest X-Ray 01/19/24 06:25 IMPRESSION: No acute intrathoracic disease. Electronically signed by: Maximiliano Graham MD 01/19/2024 07:59 AM EDT RP Head CT 01/19/24 12:01 IMPRESSION: 1. No acute intracranial pathology. 2. Findings of mild ischemic small vessel disease. 3. Mild ethmoid sinus disease. Electronically signed by: Kamille Goodwin MD 01/19/2024 03:38 PM EDT RP Discharge Plan Discharge Anticipated Discharge Date/Time: 01/22/24 11:41 Patient Disposition: Xfer SNF Discharge Diagnosis: Covid-19 with exertional hypoxia depression atrial fibrillation Referrals: Marla Henderson MD [Primary Care Provider] - 1 Week Discharge Medications: New venlafaxine 75 mg Capsule,Extended Release 24hr 75 mg PO BEDTIME Qty: 30 0RF lamotrigine 25 mg Tablet 25 mg PO BEDTIME Qty: 30 0RF dexamethasone 6 mg tablet 6 mg PO DAILY Qty: 6 0RF Continued losartan 25 mg tablet 25 mg PO DAILY Qty: 30 0RF furosemide 20 mg tablet 20 mg PO DAILY 90 Days Qty: 90 1RF thiamine HCl (vitamin B1) 100 mg tablet 100 mg PO DAILY 90 Days Qty: 90 1RF (DME) Knee brace Misc See Rx Instructions .Route Qty: 1 0RF Rx Instructions: right hinge knee brace hydroxychloroquine 200 mg tablet 200 mg PO BID 90 Days Qty: 180 0RF gabapentin 300 mg capsule 300 mg PO BID 30 Days Qty: 60 0RF (DME) knee ply wrap short op lg See Rx Instructions .Route .MEDSUPPLY Qty: 1 0RF Rx Instructions: As directed Aimovig Autoinjector 140 mg/mL auto-injector 140 mg subcut ONCE 30 Days Qty: 1 6RF (DME) FreeStyle David 2 Sensor Kit See Rx Instructions .Route Qty: 6 3RF Rx Instructions: As directed (DME) FreeStyle David 2 [place] Misc See Rx Instructions .Route Qty: 1 0RF Rx Instructions: continuous baclofen 10 mg tablet 10 mg PO TID PRN (Reason: muscle spasms) 30 Days Qty: 90 1RF Jardiance 25 mg tablet 25 mg PO DAILY 90 Days Qty: 90 1RF fenofibrate 160 mg tablet 160 mg PO DAILY 90 Days Qty: 90 1RF cetirizine [All Day Allergy (cetirizine)] 10 mg tablet 10 mg PO DAILY PRN (Reason: allergy symptoms) 90 Days Qty: 90 1RF mirabegron [Myrbetriq] 50 mg tablet extended release 24 hr 50 mg PO DAILY 90 Days Qty: 90 0RF acetaminophen 325 mg Tablet 650 mg PO BID PRN (Reason: Pain) ropinirole 0.5 mg Tablet 0.5 mg PO BEDTIME Rx Instructions: administer 1-3 hours before bedtime nystatin 100,000 unit/gram Cream 1 appl TOPICAL BID PRN (Reason: Rash) mupirocin 2 % Ointment 1 appl TOPICAL DAILY PRN (Reason: affected area) clonazepam 0.5 mg tablet 0.5 mg PO BID omeprazole 40 mg capsule,delayed release(DR/EC) 40 mg PO DAILY@0630 rosuvastatin 40 mg tablet 40 mg PO BEDTIME cholecalciferol (vitamin D3) 50 mcg (2,000 unit) tablet 50 mcg PO MOWEFR Xarelto 20 mg tablet 20 mg PO DAILY@1700 insulin degludec [Tresiba FlexTouch U-100] 100 unit/mL (3 mL) insulin pen 20 unit subcut DAILY clotrimazole-betamethasone 1-0.05 % cream 1 appl topical DAILY PRN (Reason: Itching) fluticasone propionate 50 mcg/actuation spray,suspension 1 spray intranasal DAILY multivitamin Tablet 1 tab PO DAILY lidocaine 5 % adhesive patch,medicated 1 patch topical DAILY PRN (Reason: Pain) trazodone 100 mg tablet 100 mg PO BEDTIME PRN (Reason: sleep) 90 Days Qty: 90 1RF atenolol 50 mg tablet 50 mg PO BID 30 Days Qty: 60 6RF Ubrelvy 100 mg tablet 50 - 100 mg PO ONCE PRN (Reason: migraine headache) 30 Days Qty: 16 3RF Rx Instructions: take at onset of migraine, may repeat in 2hrs (may take w/ Tylenol) Trulicity 1.5 mg/0.5 mL pen injector 1.5 mg subcut QWEEK Qty: 2 3RF (DME) FreeStyle David 14 Day Sensor Kit See Rx Instructions .Route Qty: 6 3RF Rx Instructions: As directed Discontinued venlafaxine 37.5 mg Capsule,Extended Release 24hr 37.5 mg PO BEDTIME meloxicam 15 mg Tablet 15 mg PO DAILY PRN (Reason: Pain) Paxlovid 300 mg (150 mg x 2)-100 mg tablets,dose pack PO Discharge Orders: Discharge Order (Routine); Ordered 01/22/24 Ordered By: Tea Bravo Diet: Diabetic diet Activity on Discharge: As tolerated Stand Alone Forms: Patient Portal Discharge page Print Language: Mongolian Care Plan Goals: recovery from Covid-19 infection depression treatment Health Concerns: Covid-19 with exertional hypoxia depression atrial fibrillation Plan of Treatment: take dexamethasone 6 mg daily for 6 days isolation per CDC precautions increase venlafaxine to 75 mg daily; add lamotrigine 25 mg at bedtime discharge to short-term rehabilitation Please follow up with your primary care doctor within 1 week. Return to the hospital if you experience recurrent or worsening symptoms. Assessment: See Discharge Summary.
--- NOTE | 2024-02-20 13:48 | MHC.CM.ED ---
Received consult for assessment of d/c needs: Pt resides w/spouse, has [facility] for [facility] services and uses a walker and w/c on occassion. Pt states she has been falling more at home and is concerned with BLE edema. PT licha is pending. [place] [facility] [place] She is requesting rehab. She would like [facility] a 1st choice or [facility]. HCP on file from previous visit. Referrals made while PT licha is pending. ED CM to follow.
== END 2024-01-22 16:43 | disposition skilled nursing facility (03) | DRG 178 ==
LOC: HO.ED 10:37 → HO.EDOVER 10:50 → HO.IMC 01-20 18:20
PROVIDERS: Clinical Nurse Specialist Psychiatric/Mental Health, Adult; Emergency Medicine; Hospitalist; Physician Assistant; Admitting Provider Physician Assistant; Emergency Provider Emergency Medicine Emergency Medical Services; PCP Internal Medicine; Visit Provider Family Medicine
DX: U07.1 COVID-19 (principal); F33.0 Major depressive disorder, recurrent, mild; I50.32 Chronic diastolic (congestive) heart failure; I11.0 Hypertensive heart disease with heart failure; E11.65 Type 2 diabetes mellitus with hyperglycemia; G43.909 Migraine, unspecified, not intractable, without status migrainosus; I25.10 Atherosclerotic heart disease of native coronary artery without angina pectoris; E11.319 Type 2 diabetes mellitus with unspecified diabetic retinopathy without macular edema; G25.81 Restless legs syndrome; R09.02 Hypoxemia; F41.9 Anxiety disorder, unspecified; M35.3 Polymyalgia rheumatica; N32.81 Overactive bladder; I48.0 Paroxysmal atrial fibrillation; Z87.891 Personal history of nicotine dependence; Z95.0 Presence of cardiac pacemaker; Z86.73 Personal history of transient ischemic attack (TIA), and cerebral infarction without residual deficits; Z79.4 Long term (current) use of insulin; Z79.01 Long term (current) use of anticoagulants; Z79.51 Long term (current) use of inhaled steroids; Z79.85 Long-term (current) use of injectable non-insulin antidiabetic drugs; Z79.899 Other long term (current) drug therapy
CPT/HCPCS: 0241U; 36415; 70450; 71045; 80048; 80053; 80076; 81001; 82306; 82607; 82746; 82947; 83735; 83880; 84443; 84484; 85025; 85027; 86140; 93005; 94640; 97116; 97162; 99285; J0248; J1100; J1920

== ENCOUNTER → 2024-01-19 10:49 | Outpatient (BNV) | payer MEDICARE, MEDICAID, SELFPAY | PROVIDERS: Admitting Provider Physician Assistant; Emergency Provider Emergency Medicine Emergency Medical Services; Visit Provider Physician Assistant | DX: U07.1 COVID-19 (principal); J96.01 Acute respiratory failure with hypoxia; I48.91 Unspecified atrial fibrillation; F32.A Depression, unspecified | CPT/HCPCS: 99223; 99232; 99239; 99499 ==

== ENCOUNTER → 2024-01-19 10:49 | Outpatient (BNV) | payer MEDICARE, MEDICAID, SELFPAY | PROVIDERS: Admitting Provider Physician Assistant; Emergency Provider Emergency Medicine Emergency Medical Services; Visit Provider Clinical Nurse Specialist Psychiatric/Mental Health, Adult | DX: F33.0 Major depressive disorder, recurrent, mild (principal) | CPT/HCPCS: 99232 ==

== ENCOUNTER 2024-01-26 06:12 | Outpatient (REF) | payer SELFPAY ==
[2024-01-26 06:08] LABS: MANUAL DIFF FLAG NO
[2024-01-26 07:00] LABS: Basophils Percent Auto 0.2 % (0-2); Eosinophils Absolute Auto 0.1 X10*3/uL (0.0-0.4); Eosinophils Percent Auto 0.6 % (0-4); Hematocrit 41.3 % (37.0-47.0); Hemoglobin 13.4 g/dl (12.0-16.0); Imm Gran Abs Auto 0.13 X10*3/uL (0.00-0.03); Imm Gran Pct Auto 1.2 % (0.0-0.4); Lymphocytes Absolute Auto 1.9 X10*3/uL (1.2-4.9); Lymphocytes Percent Auto 17.9 % (20-40); Mean Corpuscular HGB Conc 32.4 g/dl (31.0-35.0); Mean Corpuscular Hemoglobin 28.9 pg (27.0-33.0); Monocytes Absolute Auto 0.9 X10*3/uL (0.1-1.2); Monocytes Percent Auto 8.2 % (2-11); Neutrophils Absolute Auto 7.5 x10*3/uL (2.0-8.3); Neutrophils Percent Auto 71.9 % (45-73); Platelet Count 403 X10*3/uL (160-400); Red Blood Count 4.64 X10*6/uL (4.20-5.50); Red Cell Distribution Width 13.7 % (11.0-16.0); White Blood Count 10.4 X10*3/uL (4.8-10.8)
[2024-01-26 07:14] LABS: Estimated Average Glucose 186 mg/dL; Hemoglobin A1C 217.3896 umol/L; Hemoglobin A1c % 8.1 % (<6.0)
[2024-01-26 07:29] LABS: Anion Gap 13 (12-20); Blood Urea Nitrogen 26 mg/dL (9-16); Calcium 9.6 mg/dL (8.4-10.2); Carbon Dioxide 27 mmol/L (22-29); Chloride 99 mmol/L (96-108); Estimated Glomerular Filt Rate > 60; Glucose Random 103 mg/dL (60-115); Potassium 3.9 mmol/L (3.3-5.1); Sodium 135 mmol/L (135-145)
== END 2024-01-26 06:13 | disposition home or self-care (01) ==
LOC: HO.MMNH1L 06:12
PROVIDERS: Visit Provider Hospitalist
DX: Z13.1 Encounter for screening for diabetes mellitus (principal); I10 Essential (primary) hypertension
CPT/HCPCS: 36415; 80048; 83036; 85025

== ENCOUNTER 2024-02-02 06:49 | Outpatient (REF) | payer MEDICARE, MEDICAID, SELFPAY | END 2024-02-02 06:50 | disposition home or self-care (01) | LOC: HO.MMNH1L 06:49 | PROVIDERS: Visit Provider Hospitalist | DX: Z13.89 Encounter for screening for other disorder (principal) ==

== ENCOUNTER → 2024-02-13 23:59 | Outpatient (BNV) | payer MEDICARE, SELFPAY ==
--- NOTE | 2024-02-17 13:08 | A.OFFVIS_ITS ---
Intake Visit Reasons: Remote Device Check- [facility] Allergies morphine [Morphine] Allergy (Severe, Verified 02/16/24 12:56) ITCHING, hives cefdinir Allergy (Intermediate, Verified 02/16/24 12:56) hives sulfamethoxazole Allergy (Intermediate, Verified 02/16/24 12:56) RASH trimethoprim Allergy (Intermediate, Verified 02/16/24 12:56) RASH duloxetine Adverse Reaction (Severe, Verified 02/16/24 12:56) altered behavior [facility] Medical History Thiamine deficiency Anemia Dehydration Essential hypertension Knee osteomyelits, right Atrial flutter Acute on chronic heart failure with preserved ejection fraction MDD (major depressive disorder), recurrent episode, moderate (HFpEF) heart failure with preserved ejection fraction Mild recurrent major depression Fracture, cervical vertebra Hyperlipidemia LDL goal <70 Post-dural puncture headache PONV (postoperative nausea and vomiting) Positive occult stool blood test [place] Headache Anemia Acute upper GI bleed Diabetic polyneuropathy COVID-19 Hand pain CVA (cerebral vascular accident) Head injury Left shoulder pain Left knee pain Left hip pain Left hand pain Dizziness Diabetic neuropathy Diabetes type 2, uncontrolled Type 2 diabetes mellitus with other diabetic kidney complication Proteinuria Type 2 diabetes mellitus with diabetic polyneuropathy Dyslipidemia Obesity due to excess calories Other and unspecified hyperlipidemia Chronic heart failure with preserved ejection fraction (HFpEF) Anemia Thrombocytosis Pulmonary hypertension Ischemic stroke Paroxysmal atrial fibrillation Atherosclerotic cardiovascular disease Hospital discharge follow-up Thrombus Urge urinary incontinence Iron deficiency anemia Pure hypercholesterolemia Essential hypertension Diabetes mellitus Lumbar degenerative disc disease Surgical History S/P laminectomy S/P cardiac pacemaker procedure S/P insertion of spinal cord stimulator H/O colonoscopy History of Mohs micrographic surgery for skin cancer Hx of cervical spine surgery History of partial hysterectomy Hx of cardiac cath Family History Father Rectal cancer Hypertension Arthritis of knee CVD (cardiovascular disease) Mother Hypertension CVD (cardiovascular disease) Myocardial infarction Diabetes Social History Household Members: Spouse Housing: Apartment Are you a primary personal care assistant to a significant other at home: No Do you presently have visiting nurse or other home services: Yes Alcohol intake: never Comment: na Patient Tobacco Use Status: Former Tobacco user Tobacco use type: Cigarette e-Cigarette/Vaping Use: Never Used Second Hand Smoke Exposure: No Advance Directives Date on File: 12/04/23 service: No Current occupational status: retired Current occupation: Lt handed Cognitive needs: Yes (scodor/walker) Hearing needs: No Vision needs: Yes (glasses) Office Procedures Cardiac Device Check Cardiac Device Check Details: Date of service- 02/13/2024 ; Battery life >8 years; normal lead parameters; AP 86%; 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 Overall normal device function. [id number] Cardiac Device Interrogation, pacemaker Procedure code (CPT) selection complete Assessment & Plan Assessment & Plan (1) Pacemaker: Code(s): Z95.0 - Presence of cardiac pacemaker Category: Medical (2) Paroxysmal atrial fibrillation: Code(s): I48.0 - Paroxysmal atrial fibrillation Category: Medical Plan x Coding Level of Care Code Procedure Only Diagnoses Pacemaker Z95.0 Paroxysmal atrial fibrillation I48.0 CPT Codes Cardiac Device Check - Cardiac Device 12: [id number] Cardiac Device Interrogation, pacemaker ([id number])
== END ==
PROVIDERS: PCP Internal Medicine; Visit Provider Internal Medicine
DX: I48.0 Paroxysmal atrial fibrillation (principal); Z95.0 Presence of cardiac pacemaker
CPT/HCPCS: 93294

== ENCOUNTER 2024-02-16 | Outpatient (REF) | payer MEDICARE, MEDICAID, SELFPAY | END 2024-02-16 00:01 | disposition home or self-care (01) | LOC: CF | PROVIDERS: Visit Provider Internal Medicine | DX: Z01.818 Encounter for other preprocedural examination (principal); I48.0 Paroxysmal atrial fibrillation; I11.0 Hypertensive heart disease with heart failure; I50.32 Chronic diastolic (congestive) heart failure; F33.0 Major depressive disorder, recurrent, mild; E11.65 Type 2 diabetes mellitus with hyperglycemia; Z79.4 Long term (current) use of insulin | CPT/HCPCS: 99212 ==

== ENCOUNTER 2024-02-16 12:28 | Outpatient (AMB) | payer MEDICARE, MEDICAID, SELFPAY ==
[2024-02-16 12:45] VITALS: BP 146/78; BMI 35.6
--- NOTE | 2024-02-16 12:45 | A.OFFPC_ITS ---
Vital Signs 02/16/24 12:45 Height 5 ft 5 in Weight 214 lb 1.102 oz BMI 35.6 BP 146/78 H Blood Pressure Location Lt brachial Position Sitting Intake Visit Reasons: Eye Procedures: LT eye 03/01 RT eye 03/15 Coremaker Machine Required: No Accompanied by: Spouse Allergies morphine [Morphine] Allergy (Severe, Verified 02/16/24 12:56) ITCHING, hives cefdinir Allergy (Intermediate, Verified 02/16/24 12:56) hives sulfamethoxazole Allergy (Intermediate, Verified 02/16/24 12:56) RASH trimethoprim Allergy (Intermediate, Verified 02/16/24 12:56) RASH duloxetine Adverse Reaction (Severe, Verified 02/16/24 12:56) altered behavior Medication List - Last Reconciled 02/16/24 by Marla Bray MD acetaminophen 650 mg PO BID PRN atenolol 50 mg PO BID 30 days baclofen 10 mg PO TID PRN 30 days cetirizine (All Day Allergy (cetirizine)) 10 mg PO DAILY PRN 90 days cholecalciferol (vitamin D3) 50 mcg PO MOWEFR clonazepam 0.5 mg PO BID clotrimazole-betamethasone 1-0.05 % 1 appl topical DAILY PRN empagliflozin (Jardiance) 25 mg PO DAILY 90 days fenofibrate 160 mg PO DAILY 90 days fluticasone propionate 50 mcg/actuation 1 spray intranasal DAILY FreeStyle David 14 Day Sensor (flash glucose sensor) As directed NS FreeStyle David 2 [place] (flash glucose scanning reader) continuous NS FreeStyle David 2 Sensor (flash glucose sensor) As directed NS FreeStyle David 3 Plus Sensor (blood-glucose sensor) every 14 days NS FreeStyle David 3 [place] (blood-glucose meter,continuous) As directed NS furosemide 20 mg PO DAILY 90 days gabapentin 300 mg PO BID 30 days hydroxychloroquine 200 mg PO BID 90 days insulin degludec (Tresiba FlexTouch U-100 insulin) 20 units subcut DAILY Knee brace right hinge knee brace [knee ply wrap short op lg As directed] lamotrigine 25 mg PO BEDTIME lidocaine 5% 1 patch topical DAILY PRN losartan 25 mg PO DAILY mirabegron ER (Myrbetriq) 50 mg PO DAILY 90 days multivitamin 1 tab PO DAILY mupirocin 2% 1 appl topical DAILY PRN nystatin 1 appl topical BID PRN omeprazole 40 mg PO DAILY@0630 rivaroxaban (Xarelto) 20 mg PO DAILY@1700 ropinirole 0.5 mg PO BEDTIME rosuvastatin 40 mg PO BEDTIME sumatriptan succinate take 1 tab at onset of headache; if no relief, may repeat 1 tab after at least 2 hrs; max = 2 tabs/24 hrs PO thiamine HCl (vitamin B1) 100 mg PO DAILY 90 days trazodone 100 mg PO BEDTIME PRN 90 days Trulicity (dulaglutide) 1.5 mg (0.5 mL) subcut QWEEK NS ubrogepant (Ubrelvy) 50 - 100 mg (0.5 - 1 x 100 mg) PO ONCE PRN 30 days venlafaxine ER 75 mg PO BEDTIME Tobacco use date assessed: 07/24/23 Fall risk assessment: 2 + Falls in past year Last assessed Fall Risk: 02/16/24 Dental Screening Dental Screen Date: 07/24/23 HPI HPI Comments History of Present Illness Details This is a 73-year-old female with diabetes mellitus type 2 on long-term current use of insulin with hyperglycemia, paroxysmal atrial fibrillation, chronic heart failure with preserved ejection fraction and mild major depression that comes accompanied by for preop evaluation of cataract extraction and intraocular lens implant scheduled in the left eye March 01 and right eye and right eye March 15. She denies any chest pain or shortness on breath. Last A1c was 8.1%. I will restart her on short-acting insulin with a sliding scale. Blood pressure borderline normal to elevated and she forgot her medications today. On chronic anticoagulation for atrial fibrillation which will not be placed on hold due to cataract surgery being low risk. By RCRI patient is class 2 with 0.9% risk of cardiac complications. EKG and labs were discussed and shows no medical contraindication. Patient is medically clear. She walks with a walker for gait stability. Has 4-5 Mets of ADLs. [facility] Medical History (Updated 02/16/24 @ 13:20 by Marla Bray MD) Thiamine deficiency Anemia Dehydration Essential hypertension Knee osteomyelits, right Atrial flutter Acute on chronic heart failure with preserved ejection fraction MDD (major depressive disorder), recurrent episode, moderate (HFpEF) heart failure with preserved ejection fraction Mild recurrent major depression Fracture, cervical vertebra Hyperlipidemia LDL goal <70 Post-dural puncture headache PONV (postoperative nausea and vomiting) Positive occult stool blood test [place] Headache Anemia Acute upper GI bleed Diabetic polyneuropathy COVID-19 Hand pain CVA (cerebral vascular accident) Head injury Left shoulder pain Left knee pain Left hip pain Left hand pain Dizziness Diabetic neuropathy Diabetes type 2, uncontrolled Type 2 diabetes mellitus with other diabetic kidney complication Proteinuria Type 2 diabetes mellitus with diabetic polyneuropathy Dyslipidemia Obesity due to excess calories Other and unspecified hyperlipidemia Chronic heart failure with preserved ejection fraction (HFpEF) Anemia Thrombocytosis Pulmonary hypertension Ischemic stroke Paroxysmal atrial fibrillation Atherosclerotic cardiovascular disease Hospital discharge follow-up Thrombus Urge urinary incontinence Iron deficiency anemia Pure hypercholesterolemia Essential hypertension Diabetes mellitus Lumbar degenerative disc disease Surgical History S/P laminectomy S/P cardiac pacemaker procedure S/P insertion of spinal cord stimulator H/O colonoscopy History of Mohs micrographic surgery for skin cancer Hx of cervical spine surgery History of partial hysterectomy Hx of cardiac cath Family History Father Rectal cancer Hypertension Arthritis of knee CVD (cardiovascular disease) Mother Hypertension CVD (cardiovascular disease) Myocardial infarction Diabetes Social History Household Members: Spouse Housing: Apartment Are you a primary reproductive healthcare assistant to a significant other at home: No Do you presently have visiting nurse or other home services: Yes Alcohol intake: never Comment: na Patient Tobacco Use Status: Former Tobacco user Tobacco use type: Cigarette e-Cigarette/Vaping Use: Never Used Second Hand Smoke Exposure: No Advance Directives Date on File: 12/04/23 service: No Current occupational status: retired Current occupation: Lt handed Cognitive needs: Yes (scodor/walker) Hearing needs: No Vision needs: Yes (glasses) Questionnaire Thrive Questionnaire Date Thrive assessed: 01/20/24 Are you currently unemployed and looking for a job?: No ALY-7 AMB Questionnaire ALY-7 Date ALY - 7 assessed: 07/24/23 Source: Developed by Drs. Otto Zayas, Rima Frankel, Brenden Zhang and colleagues, with an educational norma from [employer]. Review of Systems Const All systems reviewed & are unremarkable except as noted in HPI and below Card Denies chest pain at rest, Denies chest pain with activity, Denies edema, Denies irregular heart rhythm, Denies claudication, Denies dyspnea, Denies dyspnea on exertion, Denies orthopnea, Denies paroxysmal nocturnal dyspnea and Denies slow heart rate Resp Denies cough, Denies dyspnea and Denies dyspnea on exertion GI Denies abdominal pain, Denies change in bowel habits, Denies excessive flatus, Denies nausea and Denies vomiting Denies urinary incontinence, Denies urinary hesitancy and Denies urinary urgency Musc Denies atrophy, Denies deformity and Denies limited range of motion Physical exam (Primary Care) Vital Signs: Last Vital Signs BP 146/78 H 02/16/24 12:45 BMI result Body Mass Index 35.6 Tobacco/Smoking Status: Tobacco use Status Tobacco use date assessed 07/24/23 02/16/24 12:55 Patient Tobacco Use Status Former Tobacco user 02/16/24 12:55 Tobacco use type Cigarette 02/16/24 12:55 e-Cigarette/Vaping Use Never Used 02/16/24 12:55 Thrive Assessment: Date of Thrive Assessment Date Thrive assessed 01/20/24 02/16/24 12:55 Resp Effort & Inspection: normal respiratory effort Auscultation: clear to auscultation bilaterally Cardio Jugular venous distension: no JVD Rate: regular rate Rhythm: regular rhythm Heart sounds: S1 normal heart sound present and S2 normal heart sound present Extrem General: Yes full ROM Coding Level of Care Code Est Pt Level 4 (28489) Complex EM visit Add On G2211 Diagnoses Pre-op evaluation Z01.818 Type 2 diabetes mellitus with hyperglycemia, with long-term current use of insulin E11.65; Z79.4 Mild recurrent major depression F33.0 Paroxysmal atrial fibrillation I48.0 Chronic heart failure with preserved ejection fraction (HFpEF) I50.32 Time Spent (min) 23 Assessment & Plan Assessment & Plan (1) Pre-op evaluation: Code(s): Z01.818 - Encounter for other preprocedural examination Category: Medical Plan: Patient medically clear for surgery. (2) Type 2 diabetes mellitus with hyperglycemia, with long-term current use of insulin: Code(s): E11.65 - Type 2 diabetes mellitus with hyperglycemia; Z79.4 - petroleum terminal plant operator (current) use of insulin Category: Medical Plan: Continue insulin. Start short-acting insulin as needed by sliding scale. A1c goal is equal or less than 7%. (3) Mild recurrent major depression: Code(s): F33.0 - Major depressive disorder, recurrent, mild Category: Medical Plan: Continue trazodone. (4) Paroxysmal atrial fibrillation: Code(s): I48.0 - Paroxysmal atrial fibrillation Category: Medical Plan: Continue Xarelto. Follow-up with Cardiology. (5) Chronic heart failure with preserved ejection fraction (HFpEF): Code(s): I50.32 - Chronic diastolic (congestive) heart failure Category: Medical Plan: Continue diuretics. The goal is to not gain 5 lb in a week. Medications: New pen needle, diabetic (1st Tier Unifine Pentips) As directed 100 ea 6RF guaifenesin ER (Mucinex) 600 mg PO BID 5 days 10 tabs 0RF insulin lispro (Admelog SoloStar U-100 Insulin lispro) 10 units (0.1 mL) subcut TID 30 days 9 mL 3RF Changed From losartan 25 mg PO DAILY 30 tabs 0RF To losartan 25 mg PO DAILY 30 days 30 tabs 6RF Refilled fenofibrate 160 mg PO DAILY 90 days 90 tabs 1RF atenolol 50 mg PO BID 30 days 60 tabs 6RF empagliflozin (Jardiance) 25 mg PO DAILY 90 days 90 tabs 1RF E11.65 - Type 2 diabetes mellitus with hyperglycemia, Z79.4 - petroleum terminal plant operator (current) use of insulin
== END 2024-02-16 13:13 | disposition home or self-care (01) ==
PROVIDERS: PCP Internal Medicine; Visit Provider Internal Medicine
DX: Z01.818 Encounter for other preprocedural examination (principal); E11.65 Type 2 diabetes mellitus with hyperglycemia; Z79.4 Long term (current) use of insulin; F33.0 Major depressive disorder, recurrent, mild; I48.0 Paroxysmal atrial fibrillation; I50.32 Chronic diastolic (congestive) heart failure

== ENCOUNTER → 2024-02-17 11:07 | Outpatient (BNVA) | payer MEDICARE, SELFPAY | PROVIDERS: PCP Internal Medicine; Visit Provider Anesthesiology ==

== ENCOUNTER 2024-02-17 23:36 | Emergency (ER) | payer MEDICARE, SELFPAY ==
--- NOTE | ~2024-02-17 | XR_ITS ---
EXAMINATION: XR CHEST CLINICAL INFORMATION: Chest pain COMPARISON: Chest radiograph 01/19/2024. TECHNIQUE: Frontal view of the chest was obtained. FINDINGS: Left pectoral dual-lead pacer is noted. Normal cardiac silhouette. Dense aortic calcific atherosclerosis. No effusions or pneumothoraces. Normal pattern of pulmonary vasculature. XR/XR chest 1V IMPRESSION: No acute cardiopulmonary abnormalities Electronically signed by: Masood Peterson MD 02/18/2024 02:38 AM EDT
--- NOTE | ~2024-02-17 | US_ITS ---
EXAMINATION: US TRIPLEX LOWER EXTREMITY, RIGHT CLINICAL INFORMATION: Unilateral swelling. COMPARISON: None available. TECHNIQUE: Color-flow triplex imaging with spectral analysis and compression Doppler were performed on the right lower extremity. FINDINGS: Respiratory variation, normal compression and augmented flow are noted throughout the right lower extremity. The visualized common femoral vein, superficial femoral vein, profunda femoral vein, popliteal vein and midcalf peroneal and posterior tibial venous segments show no evidence of deep venous thrombosis. There is no Shields's cyst. Subcutaneous edema is noted in the calf. US/US venous duplex LE RT IMPRESSION: No evidence of deep venous thrombosis involving the right lower extremity. Subcutaneous edema within the right calf. Electronically signed by: Masood Peterson MD 02/18/2024 02:54 AM EDT
[2024-02-17 23:42] VITALS: BP 134/76; BP 143/75; PULSE 80; PULSE 86; RESP 15; TEMP 37.3; O2SAT 94; O2SAT 96; BMI 37.6
--- NOTE | 2024-02-17 23:50 | ED_ITS ---
HPI - Chest Pain General Chief Complaint: General Medical Stated Complaint: CHEST PAIN Time Seen by Provider: 02/17/24 23:50 Source: patient Mode of arrival: EMS Limitations: no limitations History of Present Illness ED Provider: lázaro ROCHA narrative: 72-year-old female with pertinent history of insulin-dependent diabetes mellitus, essential hypertension, paroxysmal atrial fibrillation on Xarelto, CAD status post PTCA marginal artery 2016, mood disorder, HFpEF, history of CVA?, diabetic retinopathy, pacemaker in place comes here for left-sided chest pain at the site of the pacemaker since yesterday patient does get intermittent pain as same location but this time for 2 days he is not going away no shortness a breath also patient noticed swelling of the right leg as compared to the left for last several days patient does walk using a walker Related Data Home Medications ?Medication ?Instructions ?Recorded ?Confirmed clotrimazole-betamethasone 1 1 appl topical DAILY PRN Itching 07/15/23 02/16/24 %-0.05 % topical cream fluticasone propionate 50 1 spray intranasal DAILY 07/15/23 02/16/24 mcg/actuation nasal spray,suspension lidocaine 5 % topical patch 1 patch topical DAILY PRN Pain 07/15/23 02/16/24 multivitamin 1 tab PO DAILY 07/15/23 02/16/24 acetaminophen 325 mg tablet 650 mg PO BID PRN Pain 01/19/24 02/16/24 cholecalciferol (vitamin D3) 50 50 mcg PO MOWEFR 01/19/24 02/16/24 mcg (2,000 unit) tablet clonazepam 0.5 mg tablet 0.5 mg PO BID 01/19/24 02/16/24 insulin degludec 100 unit/mL (3 20 unit subcut DAILY 01/19/24 02/16/24 mL) subcutaneous pen (Tresiba FlexTouch U-100 insulin) mupirocin 2 % topical ointment 1 appl topical DAILY PRN affected 01/19/24 02/16/24 area nystatin 100,000 unit/gram topical 1 appl topical BID PRN Rash 01/19/24 02/16/24 cream omeprazole 40 mg capsule,delayed 40 mg PO DAILY@0630 01/19/24 02/16/24 release rivaroxaban 20 mg tablet (Xarelto) 20 mg PO DAILY@1700 01/19/24 02/16/24 ropinirole 0.5 mg tablet 0.5 mg PO BEDTIME 01/19/24 02/16/24 rosuvastatin 40 mg tablet 40 mg PO BEDTIME 01/19/24 02/16/24 sumatriptan succinate 100 mg tablet See Rx Instructions PO .COMPLEX 02/16/24 02/16/24 Previous Rx's ?Medication ?Instructions ?Recorded furosemide 20 mg tablet 20 mg PO DAILY 90 days #90 tabs 09/06/23 thiamine HCl (vitamin B1) 100 mg 100 mg PO DAILY 90 days #90 tabs 10/23/23 tablet Knee brace #1 ea 12/11/23 hydroxychloroquine 200 mg tablet 200 mg PO BID 90 days #180 tabs 12/18/23 ubrogepant 100 mg tablet (Ubrelvy) 50 - 100 mg (0.5 - 1 x 100 mg) PO 12/18/23 ONCE PRN migraine headache 30 days #16 tabs trazodone 100 mg tablet 100 mg PO BEDTIME PRN sleep 90 12/30/23 days #90 tabs FreeStyle David 14 Day Sensor #6 ea 01/08/24 (flash glucose sensor) Trulicity 1.5 mg/0.5 mL 1.5 mg (0.5 mL) subcut QWEEK #2 mL 01/08/24 subcutaneous pen injector (dulaglutide) gabapentin 300 mg capsule 300 mg PO BID 30 days #60 caps 01/12/24 knee ply wrap short op lg #1 ea 01/14/24 FreeStyle David 2 [place] (flash #1 ea 01/20/24 glucose scanning reader) FreeStyle David 2 Sensor (flash #6 ea 01/20/24 glucose sensor) baclofen 10 mg tablet 10 mg PO TID PRN muscle spasms 30 01/21/24 days #90 tabs cetirizine 10 mg tablet (All Day 10 mg PO DAILY PRN allergy 01/22/24 Allergy (cetirizine)) symptoms 90 days #90 tabs lamotrigine 25 mg tablet 25 mg PO BEDTIME #30 tabs 01/22/24 mirabegron 50 mg tablet,extended 50 mg PO DAILY 90 days #90 tabs 01/22/24 release 24 hr (Myrbetriq) venlafaxine 75 mg capsule,extended 75 mg PO BEDTIME #30 caps 01/22/24 release 24 hr FreeStyle David 3 Plus Sensor #6 ea 01/23/24 (blood-glucose sensor) FreeStyle David 3 [place] #1 ea 01/23/24 (blood-glucose meter,continuous) atenolol 50 mg tablet 50 mg PO BID 30 days #60 tabs 02/16/24 empagliflozin 25 mg tablet 25 mg PO DAILY 90 days #90 tabs 02/16/24 (Jardiance) fenofibrate 160 mg tablet 160 mg PO DAILY 90 days #90 tabs 02/16/24 guaifenesin 600 mg tablet, 600 mg PO BID 5 days #10 tabs 02/16/24 extended release 12 hr (Mucinex) insulin lispro 100 unit/mL 10 unit (0.1 mL) subcut TID 30 02/16/24 subcutaneous pen (Admelog SoloStar days #9 mL U-100 Insulin lispro) losartan 25 mg tablet 25 mg PO DAILY 30 days #30 tabs 02/16/24 pen needle, diabetic 31 gauge x #100 ea 02/16/2409/24 (1st Tier Unifine Pentips) Allergies Allergy/AdvReac Type Severity Reaction Status Date / Time morphine [Morphine] Allergy Severe ITCHING, Verified 02/17/24 23:45 hives cefdinir Allergy Intermediate hives Verified 02/17/24 23:45 sulfamethoxazole Allergy Intermediate RASH Verified 02/17/24 23:45 trimethoprim Allergy Intermediate RASH Verified 02/17/24 23:45 duloxetine AdvReac Severe altered Verified 02/17/24 23:45 behavior Review of Systems 2 Review of Systems: Yes all other systems are reviewed and are negative [facility] Past Medical History Medical History Thiamine deficiency Anemia Dehydration Essential hypertension Knee osteomyelits, right Atrial flutter Acute on chronic heart failure with preserved ejection fraction MDD (major depressive disorder), recurrent episode, moderate (HFpEF) heart failure with preserved ejection fraction Mild recurrent major depression Fracture, cervical vertebra Hyperlipidemia LDL goal <70 Post-dural puncture headache PONV (postoperative nausea and vomiting) Positive occult stool blood test [place] Headache Anemia Acute upper GI bleed Diabetic polyneuropathy COVID-19 Hand pain CVA (cerebral vascular accident) Head injury Left shoulder pain Left knee pain Left hip pain Left hand pain Dizziness Diabetic neuropathy Diabetes type 2, uncontrolled Type 2 diabetes mellitus with other diabetic kidney complication Proteinuria Type 2 diabetes mellitus with diabetic polyneuropathy Dyslipidemia Obesity due to excess calories Other and unspecified hyperlipidemia Chronic heart failure with preserved ejection fraction (HFpEF) Anemia Thrombocytosis Pulmonary hypertension Ischemic stroke Paroxysmal atrial fibrillation Atherosclerotic cardiovascular disease Hospital discharge follow-up Thrombus Urge urinary incontinence Iron deficiency anemia Pure hypercholesterolemia Essential hypertension Diabetes mellitus Lumbar degenerative disc disease Surgical History S/P laminectomy S/P cardiac pacemaker procedure S/P insertion of spinal cord stimulator H/O colonoscopy History of Mohs micrographic surgery for skin cancer Hx of cervical spine surgery History of partial hysterectomy Hx of cardiac cath Family History Family History Father Rectal cancer Hypertension Arthritis of knee CVD (cardiovascular disease) Mother Hypertension CVD (cardiovascular disease) Myocardial infarction Diabetes Social History Social History Household Members: Spouse Housing: Apartment Are you a primary rn acute care to a significant other at home: No Do you presently have visiting nurse or other home services: Yes Alcohol intake: never Comment: na Patient Tobacco Use Status: Former Tobacco user Tobacco use type: Cigarette e-Cigarette/Vaping Use: Never Used Second Hand Smoke Exposure: No Advance Directives: Yes Advance Directives on File: Yes Advance Directives Date on File: 12/04/23 service: No Current occupational status: retired Current occupation: Lt handed Cognitive needs: Yes (scodor/walker) Hearing needs: No Vision needs: Yes (glasses) Physical Exam 2 Vital Signs: Vital Signs: Last Vital Signs Temp 98.3 F 02/18/24 00:00 Pulse 76 02/18/24 00:00 Resp 20 02/18/24 00:00 BP 174/79 H 02/18/24 00:00 Pulse Ox 94 02/18/24 00:00 O2 Del Method Room Air 02/18/24 00:00 BMI result Body Mass Index 37.6 Appearance: Alert. Oriented X3. No acute distress. Eyes: No pallor or icterus ENT: Pharynx normal. Oral Mucosa moist Neck: Normal inspection. Neck supple. CVS: Normal heart rate and rhythm. Pulses normal. Respiratory: No respiratory distress. Equal air entry bilateral, no wheezing/rales/rhonchi Abdomen: Soft and nontender. Bowel sounds are present, no mass palpable, no CVA tenderness Skin: Skin warm and dry. Normal skin color. Normal skin turgor. Extremities: Right leg swollen more than the left leg. No calf tenderness Neuro: Oriented X 3. No motor deficit. No sensory deficit.No cerebellar signs , cranial nerves II-XII intact Medical Decision Making Medical Decision Making [facility] Narrative: Patient's chest pain clinically atypical musculoskeletal pain awaiting for the cardiac enzymes EKG without any ischemic changes patient does have leg edema negative for DVT patient is on furosemide clinically not in CHF patient is signed out Dr. Hanson pending cardiac enzymes Differential Diagnosis Differential Diagnoses: The differential diagnosis associated with the presentation includes Pacemaker pain syndrome/ACS/musculoskeletal/DVT right leg Admission/Observation Consideration of admission/observation: Escalation of care including admission/observation considered Lab Data [facility] Lab Attestation statement: I reviewed the patient's lab results. 02/18/24 01:38 02/18/24 01:38 Labs: Lab Results 02/18/24 02/18/24 Range/Units 01:11 01:38 WBC 6.3 (4.8-10.8) X10*3/uL RBC 4.44 (4.20-5.50) X10*6/uL Hgb 13.1 (12.0-16.0) g/dl Hct 40.5 (37.0-47.0) % MCV 91.2 (80.0-98.0) fL MCH 29.5 (27.0-33.0) pg MCHC 32.3 (31.0-35.0) g/dl RDW 14.6 (11.0-16.0) % Plt Count 260 (160-400) X10*3/uL MPV 8.7 L (9.4-12.3) fL Immature Gran % (Auto) 0.3 (0.0-0.4) % Neut % (Auto) 72.7 (45-73) % Lymph % (Auto) 13.3 L (20-40) % Early % (Auto) 10.3 (2-11) % Eos % (Auto) 2.8 (0-4) % Baso % (Auto) 0.6 (0-2) % Lymph # (Auto) 0.8 L (1.2-4.9) X10*3/uL Early # (Auto) 0.7 (0.1-1.2) X10*3/uL Eos # (Auto) 0.2 (0.0-0.4) X10*3/uL Baso # (Auto) 0.0 (0.0-0.2) X10*3/uL Abs Immat Gran (auto) 0.02 (0.00-0.03) X10*3/uL Absolute Neuts (auto) 4.6 (2.0-8.3) x10*3/uL Absolute Nucleated RBC 0.000 (0.0-0.012) X10*3/uL Nucleated RBC % (auto) 0.0 (0.0-0.2) /100WBC Urine Color Yellow Urine Appearance Clear Urine pH 7.0 (5.0-9.0) Ur Specific [place] 1.015 (1.005-1.025) Urine Protein 30 (1+) H (Neg-Trace) mg/dL Urine Glucose (UA) >=1000 H (Negative) mg/dL Urine Ketones Negative (Negative) mg/dL Urine Blood Small (1+) H (Negative) Urine Nitrite Negative (Negative) Ur Leukocyte Esterase Trace H (Negative) Urine RBC 6-10 H (0-2) /HPF Urine WBC 6-10 H (0-5) /HPF Ur Squamous Epith Cells 0-2 (0-2) /HPF Urine Bacteria 4+ (None Seen) Hyaline Casts 0-2 (0-2) /LPF Independent Interpretation I performed an independent interpretation of an: EKG Interpretation: Normal sinus rhythm heart rate 85 beats per minute LVH no acute STT wave changes no acute ischemia Discharge Plan Discharge Clinical Impression: Chest pain, Leg edema Patient Disposition: Still a Patient Instructions: Chest Pain (ED), Leg Edema (ED) Additional Instructions: Your chest pain is unlikely from coronary artery disease Continue your medications follow with your [facility] technical lead senior developer/PCP Prescriptions: No Action furosemide 20 mg tablet 20 mg PO DAILY 90 Days Qty: 90 1RF thiamine HCl (vitamin B1) 100 mg tablet 100 mg PO DAILY 90 Days Qty: 90 1RF (DME) Knee brace Misc See Rx Instructions .Route Qty: 1 0RF Rx Instructions: right hinge knee brace hydroxychloroquine 200 mg tablet 200 mg PO BID 90 Days Qty: 180 0RF gabapentin 300 mg capsule 300 mg PO BID 30 Days Qty: 60 0RF (DME) knee ply wrap short op lg See Rx Instructions .Route .MEDSUPPLY Qty: 1 0RF Rx Instructions: As directed (DME) FreeStyle David 2 Sensor Kit See Rx Instructions .Route Qty: 6 3RF Rx Instructions: As directed (DME) FreeStyle David 2 [place] Misc See Rx Instructions .Route Qty: 1 0RF Rx Instructions: continuous baclofen 10 mg tablet 10 mg PO TID PRN (Reason: muscle spasms) 30 Days Qty: 90 1RF cetirizine [All Day Allergy (cetirizine)] 10 mg tablet 10 mg PO DAILY PRN (Reason: allergy symptoms) 90 Days Qty: 90 1RF mirabegron [Myrbetriq] 50 mg tablet extended release 24 hr 50 mg PO DAILY 90 Days Qty: 90 0RF (DME) FreeStyle David 3 Plus Sensor Device See Rx Instructions .Route Qty: 6 3RF Rx Instructions: every 14 days (DME) FreeStyle David 3 [place] Misc See Rx Instructions .Route Qty: 1 0RF Rx Instructions: As directed acetaminophen 325 mg Tablet 650 mg PO BID PRN (Reason: Pain) ropinirole 0.5 mg Tablet 0.5 mg PO BEDTIME Rx Instructions: administer 1-3 hours before bedtime nystatin 100,000 unit/gram Cream 1 appl TOPICAL BID PRN (Reason: Rash) mupirocin 2 % Ointment 1 appl TOPICAL DAILY PRN (Reason: affected area) clonazepam 0.5 mg tablet 0.5 mg PO BID omeprazole 40 mg capsule,delayed release(DR/EC) 40 mg PO DAILY@0630 rosuvastatin 40 mg tablet 40 mg PO BEDTIME cholecalciferol (vitamin D3) 50 mcg (2,000 unit) tablet 50 mcg PO MOWEFR Xarelto 20 mg tablet 20 mg PO DAILY@1700 insulin degludec [Tresiba FlexTouch U-100] 100 unit/mL (3 mL) insulin pen 20 unit subcut DAILY venlafaxine 75 mg Capsule,Extended Release 24hr 75 mg PO BEDTIME Qty: 30 0RF lamotrigine 25 mg Tablet 25 mg PO BEDTIME Qty: 30 0RF clotrimazole-betamethasone 1-0.05 % cream 1 appl topical DAILY PRN (Reason: Itching) fluticasone propionate 50 mcg/actuation spray,suspension 1 spray intranasal DAILY multivitamin Tablet 1 tab PO DAILY lidocaine 5 % adhesive patch,medicated 1 patch topical DAILY PRN (Reason: Pain) trazodone 100 mg tablet 100 mg PO BEDTIME PRN (Reason: sleep) 90 Days Qty: 90 1RF sumatriptan succinate 100 mg tablet See Rx Instructions PO .COMPLEX Rx Instructions: take 1 tab at onset of headache; if no relief, may repeat 1 tab after at least 2 hrs; max = 2 tabs/24 hrs PO guaifenesin [Mucinex] 600 mg tablet extended release 12hr 600 mg PO BID 5 Days Qty: 10 0RF atenolol 50 mg tablet 50 mg PO BID 30 Days Qty: 60 6RF Jardiance 25 mg tablet 25 mg PO DAILY 90 Days Qty: 90 1RF fenofibrate 160 mg tablet 160 mg PO DAILY 90 Days Qty: 90 1RF losartan 25 mg tablet 25 mg PO DAILY 30 Days Qty: 30 6RF insulin lispro [Admelog SoloStar U-100 Insulin] 100 unit/mL insulin pen 10 unit subcut TID 30 Days Qty: 9 3RF (DME) pen needle, diabetic [1st Tier Unifine Pentips] 31 gauge x 5/16 needle See Rx Instructions .Route Qty: 100 6RF Rx Instructions: As directed Ubrelvy 100 mg tablet 50 - 100 mg PO ONCE PRN (Reason: migraine headache) 30 Days Qty: 16 3RF Rx Instructions: take at onset of migraine, may repeat in 2hrs (may take w/ Tylenol) Trulicity 1.5 mg/0.5 mL pen injector 1.5 mg subcut QWEEK Qty: 2 3RF (DME) FreeStyle David 14 Day Sensor Kit See Rx Instructions .Route Qty: 6 3RF Rx Instructions: As directed Print Language: [place]
--- NOTE | 2024-02-17 23:58 | ECG_ITS ---
Test Reason : CP Blood Pressure : / mmHG Vent. Rate : 085 BPM Atrial Rate : 085 BPM P-R Int : 218 ms QRS Dur : 108 ms QT Int : 396 ms P-R-T Axes : 054 255 024 degrees QTc Int : 471 ms Sinus rhythm with sinus arrhythmia with 1st degree A-V block Right superior axis deviation Minimal voltage criteria for LVH, may be normal variant ( [place] product ) Inferior infarct , age undetermined Abnormal ECG When compared with ECG of 19-JAN-2024 06:12, Sinus rhythm has replaced Electronic atrial pacemaker Referred By: Pj Dumont Electronically Signed By:KELLY DIAZ MD
[2024-02-18] VITALS: BP 174/79; PULSE 76; RESP 20; TEMP 36.8; O2SAT 94
--- NOTE | 2024-02-18 | PC.NURSE ---
MD aware of bp. pt reports LOPEZ states it feels like usual migraine LOPEZ.
--- NOTE | 2024-02-18 01:25 | PC.NURSE ---
unable to obtain labs/iv. another RN attempting for u/s iv.
[2024-02-18 01:27] LABS: Appearance Urine Clear; Color Urine Yellow; Glucose Urine UA >=1000 mg/dL (Negative); Leukocyte Esterase Urine Trace (Negative); Nitrite Urine Negative (Negative); Specific Gravity - Urine 1.015 (1.005-1.025); UMIC TRIGGER UACC YES; Urine Blood Small (1+) (Negative); Urine Ketones Negative (Negative); Urine Protein 30 (1+) mg/dL (Neg-Trace)
[2024-02-18 01:33] LABS: Bacteria Urine 4+ (None Seen); Hyaline Casts Urine 0-2 /LPF (0-2); Squamous Epithelial Cell Urine 0-2 /HPF (0-2); UACC Culture Trigger YES
[2024-02-18 01:41] LABS: MANUAL DIFF FLAG NO
[2024-02-18 01:43] LABS: Basophils Percent Auto 0.6 % (0-2); Eosinophils Absolute Auto 0.2 X10*3/uL (0.0-0.4); Eosinophils Percent Auto 2.8 % (0-4); Hematocrit 40.5 % (37.0-47.0); Hemoglobin 13.1 g/dl (12.0-16.0); Imm Gran Abs Auto 0.02 X10*3/uL (0.00-0.03); Imm Gran Pct Auto 0.3 % (0.0-0.4); Lymphocytes Absolute Auto 0.8 X10*3/uL (1.2-4.9); Lymphocytes Percent Auto 13.3 % (20-40); Mean Corpuscular HGB Conc 32.3 g/dl (31.0-35.0); Mean Corpuscular Hemoglobin 29.5 pg (27.0-33.0); Mean Corpuscular Volume 91.2 fL (80.0-98.0); Mean Platelet Volume 8.7 fL (9.4-12.3); Monocytes Absolute Auto 0.7 X10*3/uL (0.1-1.2); Monocytes Percent Auto 10.3 % (2-11); Neutrophils Absolute Auto 4.6 x10*3/uL (2.0-8.3); Neutrophils Percent Auto 72.7 % (45-73); Platelet Count 260 X10*3/uL (160-400); Red Blood Count 4.44 X10*6/uL (4.20-5.50); Red Cell Distribution Width 14.6 % (11.0-16.0); White Blood Count 6.3 X10*3/uL (4.8-10.8)
[2024-02-18 01:50] LABS: INTERNATIONAL NORM RATIO 1.6 (0.9-1.1); Prothrombin Time 18.5 SEC (10.9-12.4)
[2024-02-18 02:00] VITALS: BP 170/74; PULSE 78; RESP 16; TEMP 36.6; O2SAT 95
[2024-02-18 02:04] LABS: Alanine Aminotransferase 22 U/L (0-31); Albumin Level 3.7 g/dL (3.5-5.0); Alkaline Phosphatase 69 U/L (39-117); Anion Gap 13 (12-20); Aspartate Amino Transferase 20 U/L (5-31); Bilirubin Total 0.4 mg/dL (0.0-1.0); Blood Urea Nitrogen 21 mg/dL (9-16); Carbon Dioxide 31 mmol/L (22-29); Chloride 100 mmol/L (96-108); Creatinine Clr Calc Pharmacy 63.8; Estimated Glomerular Filt Rate > 60; Glucose Random 150 mg/dL (60-115); Potassium 4.1 mmol/L (3.3-5.1); Sodium 140 mmol/L (135-145); Total Protein 6.6 g/dL (6.5-8.0)
[2024-02-18] MEDS: Acetaminophen 325 MG TABLET 650 MG PO (02:07)
--- NOTE | 2024-02-18 02:10 | PC.NURSE ---
MD aware of pt pain level, pt medicated with tylenol per MD order.
[2024-02-18 04:00] VITALS: BP 175/76; PULSE 80; RESP 19; TEMP 36.4; O2SAT 93
--- NOTE | 2024-02-18 04:29 | PC.NURSE ---
MD made aware of BP and LOPEZ. pt is axox4 speaking full clear sentences. repeat troponin obtained and sent to lab. call short within reach.
[2024-02-18 04:32] LABS: Troponin-I High Sensitivity 22.1 ng/L (<3.5-17.0)
[2024-02-18] MEDS: Butalb/Acetamin/Caff 50/325/40 TABLET 1 TAB PO (06:47)
[2024-02-18 07:43] VITALS: BP 170/72; PULSE 80; RESP 18; TEMP 36.8; O2SAT 93
[2024-02-18 07:44] VITALS: BP 170/72; PULSE 80; RESP 18; TEMP 36.7; O2SAT 93
== END 2024-02-18 07:47 | disposition home or self-care (01) ==
PROVIDERS: Emergency Medicine; Emergency Provider Internal Medicine; PCP Internal Medicine
DX: R07.9 Chest pain, unspecified (principal); R60.0 Localized edema; E11.9 Type 2 diabetes mellitus without complications; I10 Essential (primary) hypertension; E78.5 Hyperlipidemia, unspecified; I48.0 Paroxysmal atrial fibrillation; Z95.0 Presence of cardiac pacemaker; Z87.891 Personal history of nicotine dependence; Z86.73 Personal history of transient ischemic attack (TIA), and cerebral infarction without residual deficits; Z79.4 Long term (current) use of insulin; Z79.01 Long term (current) use of anticoagulants; Z79.02 Long term (current) use of antithrombotics/antiplatelets; Z79.899 Other long term (current) drug therapy
CPT/HCPCS: 36415; 71045; 80053; 81001; 84484; 85025; 85610; 87086; 87088; 87186; 93005; 93971; 99284; 99285

== ENCOUNTER → 2024-02-17 23:58 | Outpatient (BNV) | payer MEDICARE, SELFPAY | PROVIDERS: Emergency Provider Internal Medicine; PCP Internal Medicine; Visit Provider Internal Medicine Cardiovascular Disease | DX: R94.31 Abnormal electrocardiogram [ECG] [EKG] (principal) | CPT/HCPCS: 93010 ==

== ENCOUNTER 2024-02-20 09:03 | Emergency (ER) | payer MEDICARE, MEDICAID, SELFPAY ==
--- NOTE | ~2024-02-20 | XR_ITS ---
EXAMINATION: XR CHEST CLINICAL INFORMATION: Pain around pacemaker site. COMPARISON: Chest radiograph from 02/18/2024. CT chest from 04/26/2023. TECHNIQUE: Frontal view of the chest was obtained. FINDINGS: Left pectoral pacemaker with leads overlying the right atrium and right ventricle. Partially visualized spinal stimulator leads extending to the mid thoracic spine. The lungs are adequately expanded. No evidence of focal consolidation, pleural effusion, pulmonary edema, or pneumothorax. The cardiomediastinal silhouette is within normal limits. Aortic calcifications. No acute osseous abnormalities. XR/XR chest 1V IMPRESSION: 1. Left pectoral pacemaker with leads overlying the right atrium and right ventricle. 2. No radiographically evident acute pulmonary disease. Electronically signed by: Genaro Arias DO 02/20/2024 01:05 PM EDT
--- NOTE | ~2024-02-20 | CT_ITS ---
EXAMINATION: CT HEAD WITHOUT CONTRAST CLINICAL INFORMATION: Multiple falls. Head strike. COMPARISON: CT head from 01/19/2024. TECHNIQUE: Contiguous axial imaging was performed from the skull base to vertex without intravenous administration of contrast. This CT examination was performed using dose optimization techniques as appropriate, variously including the following: *Automated exposure control. *Adjustment of mA and/or kV according to patient size (this includes techniques or standardized protocols for targeted exams where dose is matched to indication/reason for exam; i.e. extremities or head). *Use of iterative reconstruction technique. DLP: 731 mGy-cm FINDINGS: There is no evidence of acute intracranial hemorrhage or edematous territorial infarction. Chronic lacunar infarct of the left lentiform nucleus. No new loss of small-white matter differentiation. There is no abnormal attenuation within the brain parenchyma. The ventricles are normal in morphology and size. No evidence for obstructive hydrocephalus. No abnormal mass effect or midline shift. No extra-axial fluid collections. Calcific atherosclerotic disease of the intracranial internal carotid and vertebral arteries. No hyperdense vessel sign. No acute soft tissue or osseous abnormalities. Mild mucosal thickening of the paranasal sinuses. The mastoid air cells and middle ear cavities are clear. CT/CT head/brain wo IV con IMPRESSION: 1. No evidence of acute intracranial hemorrhage or edematous territorial infarction. 2. Chronic lacunar infarct of the left lentiform nucleus. Electronically signed by: Genaro Arias DO 02/20/2024 01:14 PM EDT
[2024-02-20 09:20] VITALS: BP 146/78; BP 153/62; PULSE 71; PULSE 76; RESP 20; TEMP 37.2; O2SAT 95; O2SAT 97; BMI 35.1
--- NOTE | 2024-02-20 09:40 | ED_ITS ---
HPI - General Adult General Chief complaint: General Medical Stated complaint: Pacemaker site pain, BP:146/77, HR:70 Time Seen by Provider: 02/20/24 09:34 Source: patient and family Mode of arrival: ambulatory Limitations: other (Poor historian) History of Present Illness ED Provider: Petty MICHEL HPI narrative: This is a 73-year-old female history of CVA, depression, a flutter on thinners, CAD with pacemaker in place, diabetes, migraine, ELHAM, thiamine deficiency, obesity, heart failure coming in with concerns of left-sided chest pain right over her site of pacemaker she reports this has been going on for awhile. Also reports she has had a productive cough for a week that does not seem to be getting better. She tells me it is a stabbing pain that comes and goes but worse when she is coughing. Denies associated shortness of breath, fevers, nausea, vomiting, abdominal pain, sick contacts, headache, vision changes. She does feel like she needs more help at home she has been having frequent falls with multiple head strike, no loss of consciousness. She reports she feels like she is declining rapidly. + thinners Related Data Home Medications ?Medication ?Instructions ?Recorded ?Confirmed clotrimazole-betamethasone 1 1 appl topical DAILY PRN Itching 07/15/23 02/16/24 %-0.05 % topical cream fluticasone propionate 50 1 spray intranasal DAILY 07/15/23 02/16/24 mcg/actuation nasal spray,suspension lidocaine 5 % topical patch 1 patch topical DAILY PRN Pain 07/15/23 02/16/24 multivitamin 1 tab PO DAILY 07/15/23 02/16/24 acetaminophen 325 mg tablet 650 mg PO BID PRN Pain 01/19/24 02/20/24 cholecalciferol (vitamin D3) 50 50 mcg PO MOWEFR 01/19/24 02/20/24 mcg (2,000 unit) tablet clonazepam 0.5 mg tablet 0.5 mg PO BID 01/19/24 02/20/24 insulin degludec 100 unit/mL (3 20 unit subcut DAILY 01/19/24 02/20/24 mL) subcutaneous pen (Tresiba FlexTouch U-100 insulin) mupirocin 2 % topical ointment 1 appl topical DAILY PRN affected 01/19/24 02/16/24 area nystatin 100,000 unit/gram topical 1 appl topical BID PRN Rash 01/19/24 02/16/24 cream omeprazole 40 mg capsule,delayed 40 mg PO DAILY@0630 01/19/24 02/20/24 release rivaroxaban 20 mg tablet (Xarelto) 20 mg PO DAILY@1700 01/19/24 02/20/24 ropinirole 0.5 mg tablet 0.5 mg PO BEDTIME 01/19/24 02/16/24 rosuvastatin 40 mg tablet 40 mg PO BEDTIME 01/19/24 02/20/24 sumatriptan succinate 100 mg tablet See Rx Instructions PO .COMPLEX 02/16/24 02/16/24 Previous Rx's ?Medication ?Instructions ?Recorded furosemide 20 mg tablet 20 mg PO DAILY 90 days #90 tabs 09/06/23 thiamine HCl (vitamin B1) 100 mg 100 mg PO DAILY 90 days #90 tabs 10/23/23 tablet Knee brace #1 ea 12/11/23 hydroxychloroquine 200 mg tablet 200 mg PO BID 90 days #180 tabs 12/18/23 ubrogepant 100 mg tablet (Ubrelvy) 50 - 100 mg (0.5 - 1 x 100 mg) PO 12/18/23 ONCE PRN migraine headache 30 days #16 tabs trazodone 100 mg tablet 100 mg PO BEDTIME PRN sleep 90 12/30/23 days #90 tabs FreeStyle David 14 Day Sensor #6 ea 01/08/24 (flash glucose sensor) Trulicity 1.5 mg/0.5 mL 1.5 mg (0.5 mL) subcut QWEEK #2 mL 01/08/24 subcutaneous pen injector (dulaglutide) gabapentin 300 mg capsule 300 mg PO BID 30 days #60 caps 01/12/24 knee ply wrap short op lg #1 ea 01/14/24 FreeStyle David 2 Cascade (flash #1 ea 01/20/24 glucose scanning reader) FreeStyle David 2 Sensor (flash #6 ea 01/20/24 glucose sensor) baclofen 10 mg tablet 10 mg PO TID PRN muscle spasms 30 01/21/24 days #90 tabs cetirizine 10 mg tablet (All Day 10 mg PO DAILY PRN allergy 01/22/24 Allergy (cetirizine)) symptoms 90 days #90 tabs lamotrigine 25 mg tablet 25 mg PO BEDTIME #30 tabs 01/22/24 mirabegron 50 mg tablet,extended 50 mg PO DAILY 90 days #90 tabs 01/22/24 release 24 hr (Myrbetriq) venlafaxine 75 mg capsule,extended 75 mg PO BEDTIME #30 caps 01/22/24 release 24 hr FreeStyle David 3 Plus Sensor #6 ea 01/23/24 (blood-glucose sensor) FreeStyle David 3 Cascade #1 ea 01/23/24 (blood-glucose meter,continuous) atenolol 50 mg tablet 50 mg PO BID 30 days #60 tabs 02/16/24 empagliflozin 25 mg tablet 25 mg PO DAILY 90 days #90 tabs 02/16/24 (Jardiance) fenofibrate 160 mg tablet 160 mg PO DAILY 90 days #90 tabs 02/16/24 guaifenesin 600 mg tablet, 600 mg PO BID 5 days #10 tabs 02/16/24 extended release 12 hr (Mucinex) insulin lispro 100 unit/mL 10 unit (0.1 mL) subcut TID 30 02/16/24 subcutaneous pen (Admelog SoloStar days #9 mL U-100 Insulin lispro) losartan 25 mg tablet 25 mg PO DAILY 30 days #30 tabs 02/16/24 pen needle, diabetic 31 gauge x #100 ea 02/16/24 5/16 (1st Tier Unifine Pentips) doxycycline monohydrate 100 mg 100 mg PO BID #14 caps 02/20/24 capsule Allergies Allergy/AdvReac Type Severity Reaction Status Date / Time morphine [Morphine] Allergy Severe ITCHING, Verified 02/20/24 09:22 hives cefdinir Allergy Intermediate hives Verified 02/20/24 09:22 sulfamethoxazole Allergy Intermediate RASH Verified 02/20/24 09:22 trimethoprim Allergy Intermediate RASH Verified 02/20/24 09:22 duloxetine AdvReac Severe altered Verified 02/20/24 09:22 behavior Review of Systems 2 Review of Systems: Yes all other systems are reviewed and are negative PMFSH Past Medical History Attestation statement: The following information was validated with the patient. Source: old records reviewed and nursing notes reviewed Medical History Thiamine deficiency Anemia Dehydration Essential hypertension Knee osteomyelits, right Atrial flutter Acute on chronic heart failure with preserved ejection fraction MDD (major depressive disorder), recurrent episode, moderate (HFpEF) heart failure with preserved ejection fraction Mild recurrent major depression Fracture, cervical vertebra Hyperlipidemia LDL goal <70 Post-dural puncture headache PONV (postoperative nausea and vomiting) Positive occult stool blood test Falls Headache Anemia Acute upper GI bleed Diabetic polyneuropathy COVID-19 Hand pain CVA (cerebral vascular accident) Head injury Left shoulder pain Left knee pain Left hip pain Left hand pain Dizziness Diabetic neuropathy Diabetes type 2, uncontrolled Type 2 diabetes mellitus with other diabetic kidney complication Proteinuria Type 2 diabetes mellitus with diabetic polyneuropathy Dyslipidemia Obesity due to excess calories Other and unspecified hyperlipidemia Chronic heart failure with preserved ejection fraction (HFpEF) Anemia Thrombocytosis Pulmonary hypertension Ischemic stroke Paroxysmal atrial fibrillation Atherosclerotic cardiovascular disease Hospital discharge follow-up Thrombus Urge urinary incontinence Iron deficiency anemia Pure hypercholesterolemia Essential hypertension Diabetes mellitus Lumbar degenerative disc disease Surgical History S/P laminectomy S/P cardiac pacemaker procedure S/P insertion of spinal cord stimulator H/O colonoscopy History of Mohs micrographic surgery for skin cancer Hx of cervical spine surgery History of partial hysterectomy Hx of cardiac cath Family History Family History Father Rectal cancer Hypertension Arthritis of knee CVD (cardiovascular disease) Mother Hypertension CVD (cardiovascular disease) Myocardial infarction Diabetes Social History Social History Household Members: Spouse Housing: Apartment Are you a primary clinical care coordinator to a significant other at home: No Do you presently have visiting nurse or other home services: Yes Alcohol intake: never Comment: na Patient Tobacco Use Status: Former Tobacco user Tobacco use type: Cigarette e-Cigarette/Vaping Use: Never Used Second Hand Smoke Exposure: No Advance Directives: Yes Advance Directives on File: Yes Advance Directives Date on File: 12/04/23 Do you have a plan to hurt others: No Plan service: No Current occupational status: retired Current occupation: Lt handed Cognitive needs: Yes (scodor/walker) Hearing needs: No Vision needs: Yes (glasses) Physical Exam ED Vital Signs: Vital Signs - 24 hr 02/20/24 09:20 02/20/24 12:16 02/20/24 13:26 Temperature 98.9 F 98.1 F Pulse Rate 71 70 70 Respiratory Rate 20 17 Blood Pressure 153/62 H 171/67 H 171/67 H Pulse Oximetry 95 98 98 Oxygen Delivery Method Room Air Room Air 02/20/24 14:35 02/20/24 16:11 Temperature 98.3 F Pulse Rate 78 78 Respiratory Rate 16 16 Blood Pressure 176/65 H Pulse Oximetry 96 96 Oxygen Delivery Method Room Air Room Air BMI result Body Mass Index 35.1 Course Reevaluation(s) Reevaluation #1: CBC unremarkable. Chemistry no acute findings needing intervention initial troponin 38.6, repeat 34.3 this could be secondary to demand unlikely ACS. Chest pain is now better she reports now what is bothering her is the cough. Will start her on doxycycline as she has been coughing for a week. Due to length of symptoms viral test were not obtained as this would not change the plan. Chest x-ray and head CT pending. Time: 12:53 Medications Administered Generic Name Dose Route Start Last Admin Trade Name Freq PRN Reason Stop Dose Admin Doxycycline Monohydrate 100 mg 02/20/24 21:00 02/20/24 21:38 Doxycycline Monohydrate 100 Mg Capsule PO 02/27/24 07:00 100 mg BID SHAONN Administration Medical Decision Making Medical Decision Making [facility] Narrative: 68-year-old female presents with cough, chest discomfort ongoing for the past week or so. Reporting multiple falls at home. Physical exam benign. Site over pacemaker unremarkable no erythema, warmth. History and physical exam concernin for bronchitis, unlikely pneumonia, PE, ACS, dissection, acute respiratory distress. No signs of infection overlying pacemaker site. Due to frequent falls will scan patient's head unlikely intracranial hemorrhage, stroke, posterior stroke. No signs of trauma to the neck, chest, abdomen or pelvis. Plan labs, imaging, head CT. Patient will likely require case management and physical therapy consult. Differential Diagnosis Differential Diagnoses: The differential diagnosis associated with the presentation includes (History and physical exam concernin for bronchitis, unlikely pneumonia, PE, ACS, dissection, acute respiratory distress. No signs of infection overlying pacemaker site. Due to frequent falls will scan patient's head unlikely intracranial hemorrhage, stroke, posterior stroke. No signs of trauma to) Admission/Observation Consideration of admission/observation: Escalation of care including admission/observation considered (possible ) Lab Data MDM Lab Attestation statement: I reviewed the patient's lab results. 02/20/24 10:30 02/20/24 10:30 Labs: Lab Results 02/20/24 02/20/24 02/20/24 Range/Units 10:30 11:57 14:36 WBC 5.8 (4.8-10.8) X10*3/uL RBC 4.60 (4.20-5.50) X10*6/uL Hgb 13.6 (12.0-16.0) g/dl Hct 40.8 (37.0-47.0) % MCV 88.7 (80.0-98.0) fL MCH 29.6 (27.0-33.0) pg MCHC 33.3 (31.0-35.0) g/dl RDW 15.3 (11.0-16.0) % Plt Count 244 (160-400) X10*3/uL MPV 9.1 L (9.4-12.3) fL Immature Gran % (Auto) 0.7 H (0.0-0.4) % Neut % (Auto) 64.1 (45-73) % Lymph % (Auto) 17.1 L (20-40) % Atkinson % (Auto) 14.3 H (2-11) % Eos % (Auto) 3.3 (0-4) % Baso % (Auto) 0.5 (0-2) % Lymph # (Auto) 1.0 L (1.2-4.9) X10*3/uL Atkinson # (Auto) 0.8 (0.1-1.2) X10*3/uL Eos # (Auto) 0.2 (0.0-0.4) X10*3/uL Baso # (Auto) 0.0 (0.0-0.2) X10*3/uL Abs Immat Gran (auto) 0.04 H (0.00-0.03) X10*3/uL Absolute Neuts (auto) 3.7 (2.0-8.3) x10*3/uL Absolute Nucleated RBC 0.000 (0.0-0.012) X10*3/uL Nucleated RBC % (auto) 0.0 (0.0-0.2) /100WBC Sodium 134 L (135-145) mmol/L Potassium 4.7 (3.3-5.1) mmol/L Chloride 99 (96-108) mmol/L Carbon Dioxide 26 (22-29) mmol/L Anion Gap 14 (12-20) BUN 20 H (9-16) mg/dL Creatinine 0.78 (0.5-1.4) mg/dL Estim Creat Clear Calc 71.2 Estimated GFR > 60 POC Glucose (60-115) mg/dL Random Glucose 138 H (60-115) mg/dL Calcium 9.6 (8.4-10.2) mg/dL Magnesium 2.3 (1.6-2.6) mg/dL Total Bilirubin 0.4 (0.0-1.0) mg/dL AST 26 (5-31) U/L ALT 18 (0-31) U/L Alkaline Phosphatase 53 (39-117) U/L Troponin I High Sens 38.6 H D 34.3 H (<3.5-17.0) ng/L B-Natriuretic Peptide 153 H (<100) pg/mL Total Protein 6.5 (6.5-8.0) g/dL Albumin 3.6 (3.5-5.0) g/dL COVID-19 ([facility]) Negative (Negative) COVID-19 Clin Com See Note 02/20/24 Range/Units 21:42 WBC (4.8-10.8) X10*3/uL RBC (4.20-5.50) X10*6/uL Hgb (12.0-16.0) g/dl Hct (37.0-47.0) % MCV (80.0-98.0) fL MCH (27.0-33.0) pg MCHC (31.0-35.0) g/dl RDW (11.0-16.0) % Plt Count (160-400) X10*3/uL MPV (9.4-12.3) fL Immature Gran % (Auto) (0.0-0.4) % Neut % (Auto) (45-73) % Lymph % (Auto) (20-40) % Atkinson % (Auto) (2-11) % Eos % (Auto) (0-4) % Baso % (Auto) (0-2) % Lymph # (Auto) (1.2-4.9) X10*3/uL Atkinson # (Auto) (0.1-1.2) X10*3/uL Eos # (Auto) (0.0-0.4) X10*3/uL Baso # (Auto) (0.0-0.2) X10*3/uL Abs Immat Gran (auto) (0.00-0.03) X10*3/uL Absolute Neuts (auto) (2.0-8.3) x10*3/uL Absolute Nucleated RBC (0.0-0.012) X10*3/uL Nucleated RBC % (auto) (0.0-0.2) /100WBC Sodium (135-145) mmol/L Potassium (3.3-5.1) mmol/L Chloride (96-108) mmol/L Carbon Dioxide (22-29) mmol/L Anion Gap (12-20) BUN (9-16) mg/dL Creatinine (0.5-1.4) mg/dL Estim Creat Clear Calc Estimated GFR POC Glucose 159 H (60-115) mg/dL Random Glucose (60-115) mg/dL Calcium (8.4-10.2) mg/dL Magnesium (1.6-2.6) mg/dL Total Bilirubin (0.0-1.0) mg/dL AST (5-31) U/L ALT (0-31) U/L Alkaline Phosphatase (39-117) U/L Troponin I High Sens (<3.5-17.0) ng/L B-Natriuretic Peptide (<100) pg/mL Total Protein (6.5-8.0) g/dL Albumin (3.5-5.0) g/dL COVID-19 ([facility]) (Negative) COVID-19 Clin Com Independent Interpretation I performed an independent interpretation of an: EKG (Normal sinus rhythm Possible Left atrial enlargement Left axis deviation Pulmonary disease pattern Minimal voltage criteria for LVH, may be normal variant ( [place] product ) Abnormal ECG When compared with ECG of 18-FEB-2024 00:04, No significant change was found), Plain X-Ray ( XR/XR chest 1V IMPRESSION: 1. Left pectoral pacemaker with leads overlying the right atrium and right ventricle. 2. No radiographically evident acute pulmonary disease. ) and CT Scan Radiology Impression Discussion of test interpretation with radiology: I have reviewed the radiologist's reading. External Record Review External record reviewed: Inpatient record, Office record, Outpatient record, Prior outpatient labs, Prior outpatient radiology, Primary care record and Outside ED record Chronic Conditions Patient?s care impacted by: Other (see hpi ) Critical Care Time Critical Care Time Critical Care Time: Yes Total Critical Care Time: 35 Attestation: I attest to this time spent taking care of the patient, obtaining history, physical, reviewing labs, imaging, treatment of patients condition +/- specialist/hospitalist consult Discharge Plan Discharge Clinical Impression: Bronchitis, Chest pain Patient Disposition: Xfer SNF Transfer Details: unable to care for self Additional Instructions: Patient was started on doxycycline here please discharge her home on antibiotics. Prescriptions: New doxycycline monohydrate 100 mg capsule 100 mg PO BID Qty: 14 0RF No Action furosemide 20 mg tablet 20 mg PO DAILY 90 Days Qty: 90 1RF thiamine HCl (vitamin B1) 100 mg tablet 100 mg PO DAILY 90 Days Qty: 90 1RF (DME) Knee brace Misc See Rx Instructions .Route Qty: 1 0RF Rx Instructions: right hinge knee brace hydroxychloroquine 200 mg tablet 200 mg PO BID 90 Days Qty: 180 0RF gabapentin 300 mg capsule 300 mg PO BID 30 Days Qty: 60 0RF (DME) knee ply wrap short op lg See Rx Instructions .Route .MEDSUPPLY Qty: 1 0RF Rx Instructions: As directed (DME) FreeStyle David 2 Sensor Kit See Rx Instructions .Route Qty: 6 3RF Rx Instructions: As directed (DME) FreeStyle David 2 Cascade Misc See Rx Instructions .Route Qty: 1 0RF Rx Instructions: continuous baclofen 10 mg tablet 10 mg PO TID PRN (Reason: muscle spasms) 30 Days Qty: 90 1RF cetirizine [All Day Allergy (cetirizine)] 10 mg tablet 10 mg PO DAILY PRN (Reason: allergy symptoms) 90 Days Qty: 90 1RF mirabegron [Myrbetriq] 50 mg tablet extended release 24 hr 50 mg PO DAILY 90 Days Qty: 90 0RF (DME) FreeStyle David 3 Plus Sensor Device See Rx Instructions .Route Qty: 6 3RF Rx Instructions: every 14 days (DME) FreeStyle David 3 Cascade Misc See Rx Instructions .Route Qty: 1 0RF Rx Instructions: As directed acetaminophen 325 mg Tablet 650 mg PO BID PRN (Reason: Pain) ropinirole 0.5 mg Tablet 0.5 mg PO BEDTIME Rx Instructions: administer 1-3 hours before bedtime nystatin 100,000 unit/gram Cream 1 appl TOPICAL BID PRN (Reason: Rash) mupirocin 2 % Ointment 1 appl TOPICAL DAILY PRN (Reason: affected area) clonazepam 0.5 mg tablet 0.5 mg PO BID omeprazole 40 mg capsule,delayed release(DR/EC) 40 mg PO DAILY@0630 rosuvastatin 40 mg tablet 40 mg PO BEDTIME cholecalciferol (vitamin D3) 50 mcg (2,000 unit) tablet 50 mcg PO MOWEFR Xarelto 20 mg tablet 20 mg PO DAILY@1700 insulin degludec [Tresiba FlexTouch U-100] 100 unit/mL (3 mL) insulin pen 20 unit subcut DAILY venlafaxine 75 mg Capsule,Extended Release 24hr 75 mg PO BEDTIME Qty: 30 0RF lamotrigine 25 mg Tablet 25 mg PO BEDTIME Qty: 30 0RF clotrimazole-betamethasone 1-0.05 % cream 1 appl topical DAILY PRN (Reason: Itching) fluticasone propionate 50 mcg/actuation spray,suspension 1 spray intranasal DAILY multivitamin Tablet 1 tab PO DAILY lidocaine 5 % adhesive patch,medicated 1 patch topical DAILY PRN (Reason: Pain) trazodone 100 mg tablet 100 mg PO BEDTIME PRN (Reason: sleep) 90 Days Qty: 90 1RF sumatriptan succinate 100 mg tablet See Rx Instructions PO .COMPLEX Rx Instructions: take 1 tab at onset of headache; if no relief, may repeat 1 tab after at least 2 hrs; max = 2 tabs/24 hrs PO guaifenesin [Mucinex] 600 mg tablet extended release 12hr 600 mg PO BID 5 Days Qty: 10 0RF atenolol 50 mg tablet 50 mg PO BID 30 Days Qty: 60 6RF Jardiance 25 mg tablet 25 mg PO DAILY 90 Days Qty: 90 1RF fenofibrate 160 mg tablet 160 mg PO DAILY 90 Days Qty: 90 1RF losartan 25 mg tablet 25 mg PO DAILY 30 Days Qty: 30 6RF insulin lispro [Admelog SoloStar U-100 Insulin] 100 unit/mL insulin pen 10 unit subcut TID 30 Days Qty: 9 3RF (DME) pen needle, diabetic [1st Tier Unifine Pentips] 31 gauge x 5/16 needle See Rx Instructions .Route Qty: 100 6RF Rx Instructions: As directed Ubrelvy 100 mg tablet 50 - 100 mg PO ONCE PRN (Reason: migraine headache) 30 Days Qty: 16 3RF Rx Instructions: take at onset of migraine, may repeat in 2hrs (may take w/ Tylenol) Trulicity 1.5 mg/0.5 mL pen injector 1.5 mg subcut QWEEK Qty: 2 3RF (DME) FreeStyle David 14 Day Sensor Kit See Rx Instructions .Route Qty: 6 3RF Rx Instructions: As directed Referrals: Marla Henderson MD [Primary Care Provider] - 1 week Print Language: Khmer
--- NOTE | 2024-02-20 09:44 | ECG_ITS ---
Test Reason : pacemaker pain Blood Pressure : / mmHG Vent. Rate : 070 BPM Atrial Rate : 070 BPM P-R Int : 198 ms QRS Dur : 108 ms QT Int : 444 ms P-R-T Axes : 080 -36 034 degrees QTc Int : 479 ms Normal sinus rhythm Possible Left atrial enlargement Left axis deviation Pulmonary disease pattern Minimal voltage criteria for LVH, may be normal variant ( [place] product ) Abnormal ECG When compared with ECG of 18-FEB-2024 00:04, No significant change was found Referred By: Ariadna Fischer Electronically Signed By:KELLY DIAZ MD
[2024-02-20 10:35] LABS: MANUAL DIFF FLAG NO
[2024-02-20 10:46] LABS: Basophils Percent Auto 0.5 % (0-2); Eosinophils Absolute Auto 0.2 X10*3/uL (0.0-0.4); Eosinophils Percent Auto 3.3 % (0-4); Hematocrit 40.8 % (37.0-47.0); Hemoglobin 13.6 g/dl (12.0-16.0); Imm Gran Abs Auto 0.04 X10*3/uL (0.00-0.03); Imm Gran Pct Auto 0.7 % (0.0-0.4); Lymphocytes Percent Auto 17.1 % (20-40); Mean Corpuscular HGB Conc 33.3 g/dl (31.0-35.0); Mean Corpuscular Hemoglobin 29.6 pg (27.0-33.0); Mean Corpuscular Volume 88.7 fL (80.0-98.0); Mean Platelet Volume 9.1 fL (9.4-12.3); Monocytes Absolute Auto 0.8 X10*3/uL (0.1-1.2); Monocytes Percent Auto 14.3 % (2-11); Neutrophils Absolute Auto 3.7 x10*3/uL (2.0-8.3); Neutrophils Percent Auto 64.1 % (45-73); Platelet Count 244 X10*3/uL (160-400); Red Cell Distribution Width 15.3 % (11.0-16.0); White Blood Count 5.8 X10*3/uL (4.8-10.8)
[2024-02-20 10:53] LABS: Alanine Aminotransferase 18 U/L (0-31); Albumin Level 3.6 g/dL (3.5-5.0); Alkaline Phosphatase 53 U/L (39-117); Anion Gap 14 (12-20); Aspartate Amino Transferase 26 U/L (5-31); Bilirubin Total 0.4 mg/dL (0.0-1.0); Blood Urea Nitrogen 20 mg/dL (9-16); Calcium 9.6 mg/dL (8.4-10.2); Carbon Dioxide 26 mmol/L (22-29); Chloride 99 mmol/L (96-108); Creatinine Clr Calc Pharmacy 71.2; Estimated Glomerular Filt Rate > 60; Glucose Random 138 mg/dL (60-115); Magnesium 2.3 mg/dL (1.6-2.6); Potassium 4.7 mmol/L (3.3-5.1); Sodium 134 mmol/L (135-145); Total Protein 6.5 g/dL (6.5-8.0)
[2024-02-20 11:09] LABS: Troponin-I High Sensitivity 38.6 ng/L (<3.5-17.0)
[2024-02-20 12:16] VITALS: BP 171/67; PULSE 70; RESP 17; TEMP 36.7; O2SAT 98
[2024-02-20 12:33] LABS: Troponin-I High Sensitivity 34.3 ng/L (<3.5-17.0)
[2024-02-20 13:26] VITALS: BP 171/67; PULSE 70; O2SAT 98
[2024-02-20 13:31] LABS: B Type Natriuretic Peptide 153 pg/mL (<100)
--- NOTE | 2024-02-20 13:52 | MHC.CM.ED ---
Addendum entered by Amee Liu 02/20/24 16:08: Pt has been accepted to [facility] for [facility]19 transfer. BLS transport to be arranged for next available time. Pt aware and in agreement with plan. Original Note: 02/20/24 13:48 - Case Mgmt ED Note by Amee Liu Acct Num: [id number] : [id number] Patient Age: 73 Received consult for assessment of d/c needs: Pt resides w/spouse, has [facility] for [employer] [employer] services and uses a walker and w/c on occassion. Pt states she has been falling more at home and is concerned with BLE edema. PT eval is pending. Pt was d/c'd from [facility] [place] on [place] with BIJAN and went to [facility] for [facility]. She is requesting rehab. She would like [facility] as a 1st choice or [facility] as 2nd. HCP on file from previous visit. Referrals made while PT eval is pending. ED CM to follow.
[2024-02-20 14:35] VITALS: BP 176/65; PULSE 78; RESP 16; TEMP 36.8; O2SAT 96
[2024-02-20 15:44] LABS: COVID-19 Test Negative (Negative); IDNOW Serial# 152EDE1D
[2024-02-20 16:11] VITALS: PULSE 78; RESP 16; O2SAT 96
[2024-02-20] MEDS: Doxycycline Monohydrate 100 MG CAPSULE PO (21:38)
[2024-02-20 21:46] LABS: Glucose, Whole Blood 159 mg/dL (60-115)
--- NOTE | 2024-02-20 21:54 | PC.NURSE ---
attempted to complete med rec, pt unsure of medications she takes at home
[2024-02-20 23:24] VITALS: BP 194/91; PULSE 79; RESP 16; TEMP 37.1; O2SAT 95
[2024-02-21] MEDS: Acetaminophen 325 MG TABLET 650 MG PO ×2 (00:20→08:45)
[2024-02-21] MEDS: atenoloL 50 MG TABLET PO ×2 (00:20→08:30)
[2024-02-21] MEDS: lamoTRIgine 25 MG TABLET PO (00:20)
[2024-02-21] MEDS: Venlafaxine HCl ER 75 MG CAP.ER.24H PO (00:20)
[2024-02-21] MEDS: Hydroxychloroquine Sulfate 200 MG TABLET PO ×2 (00:20→09:28)
[2024-02-21] MEDS: clonazePAM 0.5 MG TABLET PO ×2 (00:20→08:30)
[2024-02-21] MEDS: traZODone HCL 100 MG TABLET PO (00:20)
[2024-02-21] MEDS: Baclofen 10 MG TABLET PO ×2 (00:21→08:46)
[2024-02-21] MEDS: Atorvastatin Calcium 80 MG TABLET PO (00:21)
[2024-02-21] MEDS: Gabapentin 300 MG CAPSULE PO ×2 (00:21→08:29)
[2024-02-21] MEDS: Rivaroxaban 20 MG TABLET PO (00:21)
--- NOTE | 2024-02-21 00:37 | PC.NURSE ---
pt requesting certain medications that she remembered taking at home, med rec completed with pt's input and medical record data. pt medicated per MAR, eaks pills whole with water and applesauce, diff swallowing at times
[2024-02-21 06:00] VITALS: BP 120/72; PULSE 95; RESP 16; TEMP 36.7; O2SAT 95
--- NOTE | 2024-02-21 06:19 | MHC.EDTECH ---
700mls of urine emptied from suction canister
[2024-02-21] MEDS: Omeprazole 40 MG CAPSULE.DR PO (06:42)
[2024-02-21 08:25] LABS: Glucose, Whole Blood 205 mg/dL (60-115)
[2024-02-21 08:26] VITALS: BP 138/62
[2024-02-21] MEDS: Furosemide 20 MG TABLET PO (08:26)
[2024-02-21 08:30] VITALS: BP 138/62; PULSE 122
[2024-02-21] MEDS: Doxycycline Monohydrate 100 MG CAPSULE PO (08:30)
[2024-02-21] MEDS: Losartan Potassium 25 MG TABLET PO (08:30)
[2024-02-21] MEDS: Insulin Glargine,Hum.rec.anlog 100 UNIT/ML 10 ML VIAL 14 UNIT SUBCUT (08:34)
[2024-02-21 08:48] VITALS: BP 138/62; PULSE 122; RESP 18; TEMP 35.7; O2SAT 96
[2024-02-21] MEDS: Fenofibrate 160 MG TABLET PO (09:28)
[2024-02-21 10:15] VITALS: BP 138/62; PULSE 122; RESP 18; TEMP 35.7; O2SAT 96
== END 2024-02-21 10:17 | disposition skilled nursing facility (03) ==
PROVIDERS: Physician Assistant; Emergency Provider Emergency Medicine; PCP Internal Medicine
DX: J40 Bronchitis, not specified as acute or chronic (principal); R07.9 Chest pain, unspecified; Z11.52 Encounter for screening for COVID-19; R29.6 Repeated falls; Z91.81 History of falling; E11.9 Type 2 diabetes mellitus without complications; I10 Essential (primary) hypertension; E78.5 Hyperlipidemia, unspecified; I48.0 Paroxysmal atrial fibrillation; Z95.0 Presence of cardiac pacemaker; Z87.891 Personal history of nicotine dependence; Z86.73 Personal history of transient ischemic attack (TIA), and cerebral infarction without residual deficits; Z79.01 Long term (current) use of anticoagulants; Z79.02 Long term (current) use of antithrombotics/antiplatelets; Z79.899 Other long term (current) drug therapy; Z79.85 Long-term (current) use of injectable non-insulin antidiabetic drugs; Z79.4 Long term (current) use of insulin
CPT/HCPCS: 36415; 70450; 71045; 80053; 82947; 83735; 83880; 84484; 85025; 87635; 93005; 97162; 99285

== ENCOUNTER → 2024-02-20 09:44 | Outpatient (BNV) | payer MEDICARE, MEDICAID, SELFPAY | PROVIDERS: Emergency Provider Emergency Medicine; PCP Internal Medicine; Visit Provider Internal Medicine Cardiovascular Disease | DX: T82.847A Pain due to cardiac prosthetic devices, implants and grafts, initial encounter (principal); Z95.0 Presence of cardiac pacemaker; I44.4 Left anterior fascicular block; R94.31 Abnormal electrocardiogram [ECG] [EKG] | CPT/HCPCS: 93010 ==